=== PATIENT | female | born 1955 | race Caucasian/White ===

== ENCOUNTER 2023-01-03 07:58 | Outpatient (OUT) | payer MEDICARE, SELFPAY ==
--- NOTE | 2023-01-03 08:11 | CA_ITS ---
Patient: IDRIS GRIFFIN Exam Date: 01/03/2023 : 1955 Gender:F Ordering : [facility] Admission #: [id number] Family : Order #: [id number] CLICK HERE TO VIEW EXAM ECHOCARDIOGRAM REPORT INDICATIONS: Localized edema COMPARISON: None. DESCRIPTION: COMPLETE ECHOCARDIOGRAM Real-time transthoracic echocardiography with 2D, M-mode, spectral and color flow Doppler performed. QUALITY: Technical quality was good. LEFT VENTRICLE: Normal chamber size. Moderate concentric left ventricular hypertrophy. LV EF: Global left ventricular systolic function is normal. Visual estimation of left ventricular ejection fraction is 60-65% DIASTOLIC: Normal diastolic function. ATRIAL SEPTUM: Inadequately seen. LEFT ATRIUM: Normal chamber size. RIGHT ATRIUM: Normal chamber size. RIGHT VENTRICLE: Normal chamber size. Normal right ventricular systolic function. TRICUSPID VALVE: Normal mobility and thickness. No stenosis with trivial regurgitation. No evidence of pulmonary hypertension. RVSP 21mmHg MITRAL VALVE: Normal mobility and thickness. No evidence of mitral valve stenosis. There is no mitral annular calcification. No mitral regurgitation. AORTIC VALVE: Normal trileaflet appearance. No visible sclerosis. Normal leaflet mobility. No evidence of aortic valve stenosis. No aortic regurgitation. AORTIC ROOT: Normal diameter and appearance. PULMONIC VALVE: Normal thickness and mobility. No stenosis. No regurgitation. PERICARDIUM: Anterior free space; trivial effusion versus fat pad. IVC: Collapses with inspirations. Normal size. CONCLUSION: Global left ventricular systolic function is normal; visually estimated ejection fraction of 60 to 65%. Moderately increased left ventricular wall thickness. Normal diastolic function. The right ventricle is normal in size and systolic function. No significant valvular abnormalities. Anterior free space; trivial effusion versus fat pad. Adult Echocardiography Procedure Report Left Ventricle LVEDD (3.7 - 5.6 cm): 4.53 cm LVESD (2.2 - 4.0 cm): 3.11 cm LVIVS thickness (0.6 - 1.2 cm): 1.12 cm LVPW thickness (0.5 - 1.0 cm): 1.39 cm e': 0.08 m/s E - e': 11.57 LVOT Max Gradient: 3.81 mm[Hg] LVOT Area (cm2): 0.98 m/s Peak Velocity (LVOT): 0.98 m/s Mean Velocity (LVOT): 0.67 m/s LVOT Diameter 2.26 cm Left Ventricular Ejection Fraction: 72.51 % Left Atrium LA Volume Index (2D A2C): 35.67 ml/m2 Left Atrium Systolic Dimension: 3.87 cm Mitral Valve MV E to A Ratio: 0.90 Mitral Valve A-Wave Peak Velocity: 1.00 m/s Mitral Valve E-Wave Peak Velocity: 0.90 m/s Right Ventricle RV Internal Diastolic Dimension: 3.39 cm Aorta AO Root Diam: 3.27 cm Ascending Ao Diam: 3.14 cm Aortic Valve AoV Area ([place]): 2.49 cm2, 2.49 cm2 AoV Area (VTI): 2.61 cm2, 2.61 cm2 Peak Velocity(Antegrade Flow): 1.58 m/s Peak Gradient(Antegrade Flow): 9.95 mm[Hg] Mean Velocity(Antegrade Flow): 1.13 m/s Mean Gradient(Antegrade Flow): 5.66 mm[Hg] Velocity Time Integral: 40.51 cm Tricuspid Valve Peak Velocity (Regurgitant Flow): 1.69 m/s, 1.55 m/s, 2.10 m/s Pulmonic Valve Mean Gradient: 1.78 mm[Hg] Mean Velocity: 0.63 m/s Peak Velocity: 0.84 m/s, 1.07 m/s Peak Gradient: 2.80 mm[Hg], 4.55 mm[Hg] Right Atrium Right Atrium Systolic Pressure: 37.39 ml, 37.39 ml Dictated by: Ponce Silvestre M.D. on 01/04/2023 at 12:11 Approved by: Ponce Silvestre M.D. on 01/04/2023 at 12:13
== END 2023-01-03 07:59 ==
PROVIDERS: PCP Nurse Practitioner Family; Visit Provider Nurse Practitioner Family
DX: R60.0 Localized edema (principal); I51.7 Cardiomegaly
CPT/HCPCS: 93306

== ENCOUNTER 2023-02-05 15:21 | Outpatient (OUT) | payer MEDICARE, SELFPAY ==
[2023-02-05 15:47] LABS: Alanine Aminotransferase 20 U/L (14-59); Albumin Level 3.5 g/dL (3.4-5.0); Alkaline Phosphatase 104 U/L (46-116); Aspartate Amino Transferase 17 U/L (15-37); BUN Creatinine Ratio 10.6; Bilirubin Total 0.5 mg/dL (0.2-1.0); Calcium 9.2 mg/dL (8.5-10.1); Carbon Dioxide 29.2 mmol/L (21.0-32.0); Chloride 106 mmol/L (98-107); Estimated GFR (African America 45 (>=60); Estimated GFR (Non-African Ame 37 (>=60); Globulin 3.6 g/dL; Glucose 74 mg/dL (74-106); Potassium 4.2 mmol/L (3.5-5.1); Sodium 143 mmol/L (136-145); Total Protein 7.1 g/dL (6.4-8.2)
== END 2023-02-05 15:22 | disposition home or self-care (01) ==
LOC: LAB 15:22
PROVIDERS: PCP Nurse Practitioner Family; Visit Provider Nurse Practitioner Family
DX: R60.0 Localized edema (principal)
CPT/HCPCS: 36415; 80053

== ENCOUNTER 2023-03-01 10:39 | Outpatient (OUT) | payer MEDICARE, SELFPAY ==
[2023-03-01 11:10] LABS: Creatinine Urine Random 62.55 mg/dL (20.00-300.00); Microalbum Creatinine Ratio Ur 20.7 mg/g (0.0-29.9); Microalbumin Urine Random <1.3 mg/dL (<=30.0)
== END 2023-03-01 10:40 | disposition home or self-care (01) ==
LOC: LAB 10:40
PROVIDERS: PCP Nurse Practitioner Family; Visit Provider Nurse Practitioner Family
DX: E11.49 Type 2 diabetes mellitus with other diabetic neurological complication (principal)
CPT/HCPCS: 82043; 82570

== ENCOUNTER 2023-03-01 10:47 | Outpatient (OUT) | payer MEDICARE, SELFPAY ==
--- NOTE | 2023-03-01 10:50 | MM_ITS ---
Patient: IDRIS GRIFFIN Exam Date: 03/01/2023 : 1955 Gender:F Ordering : [facility] Admission #: [id number] Family : Order #: [id number] CLICK HERE TO VIEW EXAM RADIOLOGY REPORT PROCEDURE: MM TOMOSYNTHESIS SCREENING BI COMPARISON: MG MAMM SCREEN 3D RIMA CAD, 02/09/2021. MG MAMM SCREEN 3D RIMA CAD, 02/14/2022. INDICATIONS: Screening Calculator Name NCI Breast Cancer Risk Assessment Tool 5 Year Breast Cancer Risk 0.80% Lifetime Breast Cancer Risk 2.80% Personal Breast Cancer No Personal Ovarian Cancer No Treatments None Family Cancers Aunt-paternal with leukemia cancer at age 65; Aunt-paternal with unknown x 6 aunts cancer at age ~40; Grandmother-maternal with unknown cancer at age 25. LOCATION: [facility] BREAST COMPOSITION: Heterogeneously dense,which may obscure small masses. FINDINGS: DIAGNOSTIC CATEGORY 1--NEGATIVE. NO CHANGE FROM COMPARISON ASSESSMENT. Scattered benign-appearing calcifications are present. RIGHT BREAST: No significant suspicious finding. LEFT BREAST: No significant suspicious finding. RECOMMENDATIONS: ROUTINE MAMMOGRAM AND CLINICAL EVALUATION IN 12 MONTHS. PLEASE NOTE: A NORMAL MAMMOGRAM DOES NOT EXCLUDE THE POSSIBILITY OF BREAST CANCER. A CLINICALLY SUSPICIOUS PALPABLE LUMP SHOULD BE BIOPSIED. Dictated by: Carlos Hernandez MD on 03/01/2023 at 12:41 Approved by: Carlos Hernandez MD on 03/01/2023 at 12:50
== END 2023-03-01 10:48 | disposition home or self-care (01) ==
LOC: MAMMO 10:47
PROVIDERS: PCP Nurse Practitioner Family; Visit Provider Nurse Practitioner Family
DX: Z12.31 Encounter for screening mammogram for malignant neoplasm of breast (principal); Z80.6 Family history of leukemia; Z80.9 Family history of malignant neoplasm, unspecified
CPT/HCPCS: 77063; 77067

== ENCOUNTER 2023-03-27 09:42 | Outpatient (OUT) | payer MEDICARE, SELFPAY ==
[2023-03-27 11:17] LABS: Estimated Average Glucose 194 mg/dL; Glycohemoglobin A1C 8.4 % (4.5-6.2)
== END 2023-03-27 09:43 | disposition home or self-care (01) ==
LOC: LAB 09:42
PROVIDERS: PCP Nurse Practitioner Family; Visit Provider Nurse Practitioner Family
DX: E11.49 Type 2 diabetes mellitus with other diabetic neurological complication (principal)
CPT/HCPCS: 36415; 83036

== ENCOUNTER 2023-08-08 09:31 | Outpatient (OUT) | payer MEDICARE, SELFPAY ==
[2023-08-08 10:44] LABS: Estimated Average Glucose 197 mg/dL; Glycohemoglobin A1C 8.5 % (4.5-6.2)
== END 2023-08-08 09:32 | disposition home or self-care (01) ==
LOC: LAB 09:32
PROVIDERS: PCP Nurse Practitioner Family; Visit Provider Nurse Practitioner Family
DX: E11.49 Type 2 diabetes mellitus with other diabetic neurological complication (principal)
CPT/HCPCS: 36415; 83036

== ENCOUNTER 2024-01-24 18:40 | Emergency (ER) | payer MEDICARE, SELFPAY ==
[2024-01-24 18:44] VITALS: BP 137/78; PULSE 73; TEMP 36.4; O2SAT 97; BMI 39.1
--- OUTSIDE RECORDS SUMMARY | 2024-01-24 19:08 | XMS_ITS | CCD ---
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 TRIGGER RELEASE Modifiers Left Left Surgeon Description LEFT CARPAL TUNNEL LEFT CARPAL TUNNEL RELEASE, LEFT THUMB AND RELEASE, LEFT THUMB AND RING TRIGGER FINGER RING TRIGGER FINGER RELEASE RELEASE Primary Procedure Yes No Primary Surgeon Brice Oliva DO, DO, Jason A Start 06/07/23 07:46:00 06/07/23 07:46:00 Stop 06/07/23 08:16:00 06/07/23 08:16:00 Anesthesia Type Local Local Surgical Service Orthopedics Orthopedics Wound Class 1 - Clean 1 - Clean Last Modified By: Merry Perez RN, RN, Kimberly Y 06/07/23 08:19:59 06/07/23 08:19:59 General Case Data FT Pre-Care Text: Classifies surgical wound, implements aseptic technique, initiates traffic control Entry 1 Case Information OR OR 5 FT Case Level Level 1 Wound Class 1 - Clean Specialty Orthopedics Preop Diagnosis LEFT CARPAL TUNNEL Postop Same As Preop Yes SYNDROME, LEFT THUMB AND RING TRIGGER FINGER Postop Diagnosis LEFT CARPAL TUNNEL Outcomes Met? Yes SYNDROME, LEFT THUMB AND RING TRIGGER FINGER Last Modified By: Adwoa Jacobson CST 06/10/23 12:04:30 Post-Care Text: The patient is free from signs and symptoms of infection Skin Assessment (Pre Procedure) FT Pre-Care Text: Implements protective measures to prevent skin/ tissue injury due to thermal or mechanical sources Evaluates for signs and symptoms of physical injury to skin and tissue Entry 1 Skin Integrity Intact, [place], Warm, and Skin Abnormality No Dry Outcomes Met? Yes Last Modified By: Merry Perez RN 06/07/23 07:50:04 Post-Care Text: The patient is free from signs and symptoms of injury caused by extraneous objects Patient Positioning FT Pre-Care Text: Identifies physical alterations that require additional precautions for procedure-specific positioning, verifies presence of prosthetics or corrective devices, positions the patient, evaluates the patient for signs and symptoms of injury as a result of positioning Entry 1 Procedure CARPAL TUNNEL Body Position Supine RELEASE(Left), FINGER TRIGGER RELEASE(Left) Feet Uncro (more content not included)... [facility] Preoperative Documentson Preoperative Documents [id number] #1.00TIFF [facility] Consent for Procedure/Surger yon 06-07-2023 Consent for Procedure/Surgery [id number]# 1.00TIFF [facility] Consent for Treatmenton 05-29 Consent for Treatment [id number]#1 .00TIFF [facility] Discharge Instructionson Discharge Instructions VIRGEN GONZALES :1955 Visit Date:06/07/2023 Inpatient Discharge Instructions Your Care Team Admitting Physician - Brice Oliva DO Referring Physician - Brice Oliva DO Reason for Your Visit LEFT CARPAL TUNNEL SYNDROME, LEFT THUMB AND RING TRIGGER FINGER This Is Your Medications List alendronate (alendronate 70 mg oral tablet) ascorbic acid (Vitamin C 500 mg oral tablet, chewable) aspirin busPIRone chlorpheniramine/ibup rofen/pseudoephedrine (Advil Allergy Sinus oral tablet) empagliflozin (Jardiance 25 mg oral tablet) esomeprazole (Nexium 20 mg Cap-DR) fluoxetine (FLUoxetine 10 mg Cap) fluticasone (Flovent HFA 110 Aerosol) furosemide insulin isophane (Relion Novolin N) lisinopril (lisinopril 10 mg Tab) naproxen (naproxen 500 mg Tab) naproxen (naproxen 500 mg Tab) nitroglycerin (nitroglycerin 0.4 mg sublingual Tab) pregabalin simvastatin (simvastatin 40 mg Tab) sitagliptin (Januvia 100 mg Tab) tramadol (traMADOL 50 mg Tab) varenicline (Chantix 1 mg Tab) [Image Removed: STOP]Stop taking these medications HYDROmorphone (Dilaudid 2 mg Tab) ibuprofen (Advil 200 mg oral tablet) Procedure History Arthroscopy of knee (09/30/2020), Right little finger release A-1 linda (05/09/2016), Cholecystectomy, History of tonsillectomy, hysterectomy, needle removed right foot, Operation on toenail, Release of trigger finger, right carpel tunnel, right knee arthroscopy x2. What to do next Instructions From Your Doctor Event Name Event Result Pharmacy Information [facility] , [place] Discharge Instructions Discharge Instructions New Follow Up Appointments after Discharge Follow Up with Brice Oliva DO, ORT When: Comments: , 2 pm Appointment has already been scheduled Where: [place] [address]- Medications What How Much When Instructions Next Dose New ascorbic acid (Vitamin C 500 mg oral tablet, chewable) 1 Tablets Chewed Every day Duration: 50 Days Pickup at [facility] #[id number] New tramadol (traMADOL 50 mg Tab) 1 Tablets By Mouth Every 4 hours as needed for for pain g56.02 Pickup at [facility] #[id number] Changed naproxen (naproxen 500 mg Tab) 1 Tablets By Mouth 2 times a day as needed for Pain with food Pickup at [facility] #[id number] Changed naproxen (naproxen 500 mg Tab) 1 Tablets By Mouth 2 times a day with food Unchanged alendronate (alendronate 70 mg oral tablet) 1 Tablets By Mouth Every week Unchanged aspirin 81 Milligram By Mouth Every day Unchanged busPIRone 75 Milligram By Mouth 2 times a day Unchanged chlorpheniramine/ ibuprofen/ pseudoephedrine (Advil Allergy Sinus oral tablet) 1 Tablets By Mouth Every 6 hours as needed for as needed for cold symptoms Unchanged empagliflozin (Jardiance 25 mg oral tablet) 1 Tablets By Mouth Once a day (in the morning) Unchanged esomeprazole (Nexium 20 mg Cap-DR) 1 Capsules By Mouth Every day Unchanged fluoxetine (FLUoxetine 10 mg Cap) 1 Capsules By Mouth Every day Unchanged fluticasone (Flovent HFA 110 Aerosol) 2 Puffs Inhalation 2 times a day as needed for Shortness of breath or wheezing Unchanged furosemide 20 Milligram By Mouth Every day Unchanged insulin isophane (Relion Novolin N) 16 Units Subcutaneous 2 times a day Unchanged lisinopril (lisinopril 10 mg Tab) 1 Tablets By Mouth Every day Unchanged nitroglycerin (nitroglycerin 0.4 mg sublingual Tab) 1 Tablets Sublingual Every 5 minutes as needed for for chest pain Unchanged pregabalin 75 Milligram By Mouth 2 times a day Unchanged simvastatin (simvastatin 40 mg Tab) 1 Tablets By Mouth Once a day (at bedtime) Unchanged sitagliptin (Januvia 100 mg Tab) 1 Tablets By Mouth Every day Unchanged varenicline (Chantix 1 mg Tab) 1 Tablets By Mouth 2 times a day Pharmacy Information [facility] #[id number]: [address] [place], [place] [id number] [phone] What How Much When Comments Stop Taking HYDROmorphone (Dilaudid 2 mg Tab) See instructions 0.5-1 tab(s) Oral q4hr Stop Taking ibuprofen (Advil 200 mg oral tablet) 1 Tablets By Mouth Every 6 hours as needed for as needed for arthritis Allergies Percocet (sleeps a long time) Vicodin (itching , sick to stomach) Darvocet-N 100 (Itching) Darvon (Itching) codeine (Nausea) penicillins (Difficulty breathing at rest, Hives) Problems Ongoing - Any problem that you are currently receiving treatment for. BMI 31.0-31.9,adult Chronic back pain Diabetes mellitus, type 2 Hyperlipidemia Lipoma of back Smoker Historical - Any problem that you are no longer receiving treatment for. Breast lump Cigarette smoker Fatigue Insomnia Lipoma of back [place] - myocardial infarction Osteoporosis Pharyngitis Education Materials [place], [place] [facility] CARPAL TUNNEL RELEASE INSTRUCTIONS Post-Operative Week One Please do (more content not included)... [facility] Comment on above: Result Comment: Elec tronically Signed By: Lilo YANG, Gila Pedroza\gilmar\Date and Time Signed: 06/07/23 08:35 EST Discharge Instructions VIRGEN GONZALES :1955 Visit Date:06/07/2023 Inpatient Discharge Instructions Your Care Team Admitting Physician - Brice Oliva DO Referring Physician - Brice Oliva DO Reason for Your Visit LEFT CARPAL TUNNEL SYNDROME, LEFT THUMB AND RING TRIGGER FINGER This Is Your Medications List alendronate (alendronate 70 mg oral tablet) ascorbic acid (Vitamin C 500 mg oral tablet, chewable) aspirin busPIRone chlorpheniramine/ibup rofen/pseudoephedrine (Advil Allergy Sinus oral tablet) empagliflozin (Jardiance 25 mg oral tablet) esomeprazole (Nexium 20 mg Cap-DR) fluoxetine (FLUoxetine 10 mg Cap) fluticasone (Flovent HFA 110 Aerosol) furosemide insulin isophane (Relion Novolin N) lisinopril (lisinopril 10 mg Tab) naproxen (naproxen 500 mg Tab) naproxen (naproxen 500 mg Tab) nitroglycerin (nitroglycerin 0.4 mg sublingual Tab) pregabalin simvastatin (simvastatin 40 mg Tab) sitagliptin (Januvia 100 mg Tab) tramadol (traMADOL 50 mg Tab) varenicline (Chantix 1 mg Tab) [Image Removed: STOP]Stop taking these medications HYDROmorphone (Dilaudid 2 mg Tab) ibuprofen (Advil 200 mg oral tablet) Procedure History Arthroscopy of knee (09/30/2020), Right little finger release A-1 linda (05/09/2016), Cholecystectomy, History of tonsillectomy, hysterectomy, needle removed right foot, Operation on toenail, Release of trigger finger, right carpel tunnel, right knee arthroscopy x2. Discharge Vitals Temperature (Axillary) 36.6 ?C Heart Rate (Monitored) 77 Respiratory Rate 20 Blood Pressure 102/64 Height 152.4 cm Weight 85.7 kg What to do next Instructions From Your Doctor Event Name Event Result Pharmacy Information [facility] , Eliezer Salazar New Follow Up Appointments after Discharge Follow Up with Brice Oliva DO, ORT When: Comments: , 2 pm Appointment has already been scheduled Where: [place] [address]- Medications What How Much When Instructions Next Dose New ascorbic acid (Vitamin C 500 mg oral tablet, chewable) 1 Tablets Chewed Every day Duration: 50 Days Pickup at [facility] #[id number] New tramadol (traMADOL 50 mg Tab) 1 Tablets By Mouth Every 4 hours as needed for for pain g56.02 Pickup at [facility] #[id number] Changed naproxen (naproxen 500 mg Tab) 1 Tablets By Mouth 2 times a day with food Changed naproxen (naproxen 500 mg Tab) 1 Tablets By Mouth 2 times a day as needed for Pain with food Pickup at [facility] #[id number] Unchanged alendronate (alendronate 70 mg oral tablet) 1 Tablets By Mouth Every week Unchanged aspirin 81 Milligram By Mouth Every day Unchanged busPIRone 75 Milligram By Mouth 2 times a day Unchanged chlorpheniramine/ ibuprofen/ pseudoephedrine (Advil Allergy Sinus oral tablet) 1 Tablets By Mouth Every 6 hours as needed for as needed for cold symptoms Unchanged empagliflozin (Jardiance 25 mg oral tablet) 1 Tablets By Mouth Once a day (in the morning) Unchanged esomeprazole (Nexium 20 mg Cap-DR) 1 Capsules By Mouth Every day Unchanged fluoxetine (FLUoxetine 10 mg Cap) 1 Capsules By Mouth Every day Unchanged fluticasone (Flovent HFA 110 Aerosol) 2 Puffs Inhalation 2 times a day as needed for Shortness of breath or wheezing Unchanged furosemide 20 Milligram By Mouth Every day Unchanged insulin isophane (Relion Novolin N) 16 Units Subcutaneous 2 times a day Unchanged lisinopril (lisinopril 10 mg Tab) 1 Tablets By Mouth Every day Unchanged nitroglycerin (nitroglycerin 0.4 mg sublingual Tab) 1 Tablets Sublingual Every 5 minutes as needed for for chest pain Unchanged pregabalin 75 Milligram By Mouth 2 times a day Unchanged simvastatin (simvastatin 40 mg Tab) 1 Tablets By Mouth Once a day (at bedtime) Unchanged sitagliptin (Januvia 100 mg Tab) 1 Tablets By Mouth Every day Unchanged varenicline (Chantix 1 mg Tab) 1 Tablets By Mouth 2 times a day Pharmacy Information [facility] #[id number]: [address] [place], [place] [id number] [phone] What How Much When Comments Stop Taking HYDROmorphone (Dilaudid 2 mg Tab) See instructions 0.5-1 tab(s) Oral q4hr Stop Taking ibuprofen (Advil 200 mg oral tablet) 1 Tablets By Mouth Every 6 hours as needed for as needed for arthritis Test Results No qualifying data available. Allergies Percocet (sleeps a long time) Vicodin (itching , sick to stomach) Darvocet-N 100 (Itching) Darvon (Itching) codeine (Nausea) penicillins (Difficulty breathing at rest, Hives) Problems Ongoing - Any problem that you are currently receiving treatment for. BMI 31.0-31.9,adult Chronic back pain Diabetes mellitus, type 2 Hyperlipidemia Lipoma of back Smoker Historical - Any problem that you are no longer receiving treatment for. Breast lump Cigarette smoker Fatigue Insomnia Lipoma of back [place] - myocardial infarction Osteoporosis Pharyngitis (more content not included)... [facility] Comment on above: Result Comment: Elec tronically Signed By: Marisela DIAZ, Mercy\.br\Date and Time Signed: 06/07/23 08:32 EST H&P Updateon 06-07-2023 H&P Update [id number]# 1.00TIFF [facility] Inpatient Patient Summaryon 06-07-2023 Inpatient Patient Summary [place] [id number] [facility] Clinical Discharge Instructions PERSON INFORMATION Name: VIRGEN GONZALES [facility]#:[id number] PHYSICIANS Admitting Physician: Brice Oliva DO Attending Physician: Brice Oliva DO PCP: AGGIE DAVIS CNP Discharge Diagnosis: Comment: PATIENT EDUCATION INFORMATION Instructions: Conchita Oliva - Carpal Tunnel/Cubital Tunnel Release Instructions (Custom) Medication Leaflets: Follow up: MEDICATION LIST New Medications [facility] #[id number], [address] [place] [id number], [phone] ascorbic acid (Vitamin C 500 mg oral tablet, chewable) 1 Tablets Chewed every day for 50 Days. Refills: 0. tramadol (traMADOL 50 mg Tab) 1 Tablets By Mouth every 4 hours as needed for pain. g56.02. Refills: 0. Medications to Continue Taking That Have Changed [facility] #[id number], [address] [place] [id number], [phone] START: naproxen (naproxen 500 mg Tab) 1 Tablets By Mouth 2 times a day as needed Pain. with food. Refills: 0. Other Medications START: naproxen (naproxen 500 mg Tab) 1 Tablets By Mouth 2 times a day. with food. Refills: 0. Medications to Continue with No Changes Other Medications alendronate (alendronate 70 mg oral tablet) 1 Tablets By Mouth every week., bones aspirin 81 Milligram By Mouth every day., heart busPIRone 75 Milligram By Mouth 2 times a day. chlorpheniramine/ibup rofen/pseudoephedrine (Advil Allergy Sinus oral tablet) 1 Tablets By Mouth every 6 hours as needed as needed for cold symptoms. empagliflozin (Jardiance 25 mg oral tablet) 1 Tablets By Mouth once a day (in the morning). esomeprazole (Nexium 20 mg Cap-DR) 1 Capsules By Mouth every day. fluoxetine (FLUoxetine 10 mg Cap) 1 Capsules By Mouth every day. fluticasone (Flovent HFA 110 Aerosol) 2 Puffs Inhalation 2 times a day as needed Shortness of breath or wheezing. furosemide 20 Milligram By Mouth every day. insulin isophane (Relion Novolin N) 16 Units Subcutaneous 2 times a day. lisinopril (lisinopril 10 mg Tab) 1 Tablets By Mouth every day. nitroglycerin (nitroglycerin 0.4 mg sublingual Tab) 1 Tablets Sublingual every 5 minutes as needed for chest pain. pregabalin 75 Milligram By Mouth 2 times a day. simvastatin (simvastatin 40 mg Tab) 1 Tablets By Mouth once a day (at bedtime). sitagliptin (Januvia 100 mg Tab) 1 Tablets By Mouth every day. varenicline (Chantix 1 mg Tab) 1 Tablets By Mouth 2 times a day., stop smoking No Longer Take the Following Medications HYDROmorphone (Dilaudid 2 mg Tab) 0.5-1 tab(s) Oral q4hr; as needed for pain. Refills: 0. ibuprofen (Advil 200 mg oral tablet) 1 Tablets By Mouth every 6 hours as needed as needed for arthritis. Comment: [facility] Main OR PACU II [facility] Main OR PACU II Record PACU Phase II Document Type FT Summary Primary Physician: Brice Oliva DO Finalized Date/Time: 06/07/23 09:45:08 Pt. Name: VIRGEN GONZALES Ramiro Shabazz./Sex: 1955 Female Med Rec #: [id number] Physician: Brice Oliva DO Financial #: [id number] Pt. Type: A Room/Bed: [place] [address] Admit/Disch: 06/07/23 06:35:30 - Institution: Case Times PACU II FT Pre-Care Text: Identifies barriers to communication and implements measures to provide psychological support and determines knowledge level Develops individualized plan of care, and ensures continuity of care Maintains patient's dignity and privacy, and maintains patient confidentiality Identifies and reports philosophical, cultural, and spiritual beliefs and values Identifies individual values and wishes concerning care administers prescribed antibiotic therapy and immunizing agents as ordered, Evaluates postoperative tissue perfusion Implements thermoregulation measures, and monitors body temperature Evaluates postoperative respiratory status Evaluates postoperative cardiac status Evaluates postoperative neurological status Assesses pain control, collaborated in initiating patient-controlled analgesia and implements alternative methods of pain control Verifies allergies, administers prescribed medications and solutions, evaluates response to medications Entry 1 In PACU II 06/07/23 08:20:00 Discharge from PACU 06/07/23 08:45:00 II Outcomes Met? Yes Last Modified By: Mercy Antonio LPN 06/07/23 09:45:05 Post-Care Text: The patient demonstrates knowledge of the expected response to the operative or invasive procedure The patient's care is consistent with the individualized perioperative plan of care The patient's right to privacy is maintained The patient's value system, lifestyle, ethnicity, and culture are considered, respected, and incorporated into the perioperative plan of care The patient participates in decisions affecting his or her perioperative plan of care. The patient is free from signs and symptoms of infection The patient has wound/tissue perfusion consistent with or improved from baseline levels established preoperatively The patient is at or returning to normothermia at the conclusion of the immediate postoperative period The patient's respiratory function is consistent with or improved from baseline levels established preoperatively The patient's cardiovascular status is consistent with or improved from baseline levels established preoperatively The patient's neurological status is consistent with or improved from baseline levels established preoperatively The patient demonstrates and/or reports adequate pain control throughout the perioperative period The patient received appropriate medication(s), safely administered during the perioperative period Finalized By: Mercy Antonio LPN Document Signatures Signed By: Mercy Antonio LPN 06/07/23 09:45 [facility] Main OR Preoperative Recordo n 06-07-2023 Main OR Preoperative Record PreOp Document Type FT Summary Primary Physician: Brice Oliva DO Finalized Date/Time: 06/07/23 07:47:43 Pt. Name: VIRGEN GONZALES D.O.B./Sex: 1955 Female Med Rec #: [id number] Physician: Brice Oliva DO Financial #: [id number] Pt. Type: A Room/Bed: [place] [address] Admit/Disch: 06/07/23 06:35:30 - Institution: Case Times PreOp FT Pre-Care Text: Verifies consent for planned procedure, identifies individual values and wishes concerning care, includes family members in perioperative teaching Entry 1 Patient Times. In Pre Surgery 06/07/23 06:40:00 Out Pre Surgery 06/07/23 07:26:00 Outcomes Met? Yes Last Modified By: Merry Perez RN 06/07/23 07:47:38 Post-Care Text: The patient participates in decisions affecting his or her perioperative plan of care Finalized By: Merry Perez RN Document Signatures Signed By: Merry Perez RN 06/07/23 07:47 [facility] Main OR Preoperative Record Holding Area Document Type FT Summary Primary Physician: Brice Oliva DO Finalized Date/Time: 06/07/23 07:35:11 Pt. Name: VIRGEN GONZALESO.B./Sex: 1955 Female Med Rec #: [id number] Physician: Brice Oliva DO Financial #: [id number] Pt. Type: A Room/Bed: [facility] Admit/Disch: 06/07/23 06:35:30 - Institution: Case Times Holding FT Pre-Care Text: Verifies consent for planned procedure, identifies individual values and wishes concerning care, includes family members in perioperative teaching Secures patient's records' belongings, and valuables, maintains patient's dignity and privacy, and maintains patient confidentiality Entry 1 In Holding 06/07/23 06:40:00 Outcomes Met? Yes Last Modified By: Mercy Antonio LPN 06/07/23 07:02:06 Post-Care Text: The patient participates in decisions affecting his or her perioperative plan of care The patient's right to privacy is maintained Surgery Checklist FT Entry 1 Entry 2 Patient Birthday, ID Band Birthday, ID Band Identification: Check, Patient Check, Patient Participation Participation Procedure Surgical Consent, With Surgical Consent, With Verification: Patient Patient NPO after Midnight: No No Date/Time: 06/07/23 07:02:00 06/07/23 07:02:00 Preop Results Reviewed: Results Reviewed Comments: Personal Items: Dentures, Glasses Dentures, Glasses Personal Items glasses, upper dentures glasses, upper dentures Comment: Limitations: COPD COPD Complaints of Pain: Yes Yes Pain Comment: left hand left hand Operative Site Yes Marking: Marked By: Dr. Alvarez Location: left wrist, left thumb, left ring finger Availability Verified: IV Conscious Sedation or Non-ASU MAC Patients Does Patient Smoke Yes Yes If Yes to Smoking. half pack a day half pack a day Cigars or Cigarettes. How much per day? Patient states Yes Yes postop adult supervision available Comment - Adult brother Maxwell brother Maxwell Supervision Case Cancelled in No No Holding Area see comments below for reason Case Cancelled Comment Last Modified By: Mercy Antonio LPN, LPN, Sandra 06/07/23 07:05:36 06/07/23 07:14:09 Finalized By: Mercy Antonio LPN Document Signatures Signed By: Mercy Antonio LPN 06/07/23 07:05 Mercy Antonio LPN 06/07/23 07:35 [facility] Operative Reporton Operative Report Patient: VIRGEN GONZALES Age: 67 years Sex: Female : 1955 Associated Diagnoses: None Author: Brice Oliva DO DATE OF SURGERY: 06/07/2023 SURGEON: Brice Oliva D.O. PREOPERATIVE DIAGNOSIS: 1. Left carpal tunnel syndrome 2. Trigger digits left thumb and left ring finger POSTOPERATIVE DIAGNOSIS: 1. Left carpal tunnel syndrome 2. Trigger digits left thumb and left ring finger PROCEDURE: 1. Left carpal tunnel release 2. A1 linda release left thumb and left ring finger (trigger digit release) ANESTHESIA: Local OPERATIVE INDICATIONS: Virgen is a 67-year-old [id number] female who has had persistent pain, numbness and tingling in the left hand. She has limited range of motion of the thumb, index, middle, and ring fingers. She was previously experiencing locking to these digits but now is unable to flex the fingers enough to cause triggering. We decided to perform a left carpal tunnel release and address only 2 of her fingers at this setting. We plan on returning at a later date to address the index and middle fingers. She agreed to proceed with the above procedure after a discussion of the risks, benefits, complications, alternatives, and expectations. Please see office notes for further details. PROCEDURE IN DETAIL: The correct operative sites were identified and marked in the preoperative holding area. The skin overlying the carpal tunnel and A1 pulleys of the thumb and ring fingers was prepped with alcohol and Betadine. The skin was anesthetized with ethyl chloride. The soft tissues over the carpal tunnel were injected with 10 mL of 1% lidocaine with epinephrine with a 25-gauge 1.5 inch needle. The soft tissues overlying the A1 pulleys of the thumb and ring fingers were injected with 6 mL of 1% lidocaine with epinephrine each. The patient was transported to the operating room and placed supine on the operating room table. The left upper extremity was outstretched on the armboard. The left upper extremity was prepped and draped in the usual sterile fashion. Surgical timeout was performed with all required personnel present. The adequacy of the local anesthetic was assessed with forceps. Attention was turned to the left carpal tunnel. A small longitudinal incision at the base of the palm between the thenar and hypothenar eminences was made. Dissection was carried down through the subcutaneous tissues. Hemostasis was achieved with the bipolar. The palmar fascia was identified and incised to reveal the transverse carpal ligament. The transverse carpal ligament was released at its midportion with a fresh 15 blade. Release of the ligament was carried distally until fat was visible adjacent to the nerve. Release of the ligament was then carried proximally. The safeguard device was slid between the transverse carpal ligament and the median nerve. A curved meniscal Levelland blade was slid on top of the safeguard device to complete the proximal release. Complete release was confirmed with visual inspection and digital palpation. There were no space-occupying lesions. Attention was then turned to the thumb. A transverse incision at the flexion crease of the MCP joint was made. Retractors were placed to protect the digital nerves. The A1 linda was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 Cholesterol.total/Cho lesterol in HDL [Mass ratio] 3.1 {ratio} Normal [facility] Comment on above: Performed By: #### T SH, CMP, T7, LIPID #### [facility] [place] [facility] [address] [address] [address] Danay De Los Santos HDL NORMAL > or = 60 mg/dl - LO W CARDIOVASCULAR RISK <40 mg/dl - HIGH CARDIOVASCULAR RISK Normal [facility] Comment on above: Performed By: #### T SH, CMP, T7, LIPID #### [facility] [place] [facility] [address] [address] [address] Danay De Los Santos LDL CALC NORMAL SEE BELOW Normal [facility] Comment on above: Result Comment: <100 mg/dl OPTIMAL 100 - 129 mg/dl NEAR OR ABOVE OPTIMAL 130 - 159 mg/dl BORDERLINE HIGH 160 - 189 mg/dl HIGH >190 mg/dl VERY HIGH Performed By: #### T SH, CMP, T7, LIPID #### [facility] [place] [facility] [address] [address] [address] Danay De Los Santos Triglyceride [Mass/Vol] 63 mg/dL Normal <=150 [facility] [place] [facility] Comment on above: Performed By: #### T SH, CMP, T7, LIPID #### [facility] [place] [facility] [address] [address] [address] Danay De Los Santos VLDL CALC 12.6 mg/dL Normal [facility] Comment on above: Performed By: #### T SH, CMP, T7, LIPID #### [facility] [place] [facility] [address] [address] [address] Danay De Los Santos PROF 14(COMP METB)on 023 Albumin [Mass/Vol] 3.3 g/dL Critically low 3.4-5.0 [facility] [place] Comment on above: Performed By: #### T SH, CMP, T7, LIPID #### [facility] [place] [facility] [address] [address] [address] Danay De Los Santos Albumin/Globulin [Mass ratio] 1.0 {ratio} Normal [facility] Comment on above: Performed By: #### T SH, CMP, T7, LIPID #### [facility] [place] [facility] [address] [place] [address] Dr. Danay De Los Santos ALP [Catalytic activity/Vol] 94 U/L Normal 46-116 [facility] Comment on above: Performed By: #### T SH, CMP, T7, LIPID #### [facility] [place] [facility] [address] [address] [address] Danay De Los Santos ALT [Catalytic activity/Vol] 17 U/L Normal 14-59 [facility] Comment on above: Performed By: #### T SH, CMP, T7, LIPID #### [facility] [place] [facility] [address] [address] [address] Danay De Los Santos Anion gap [Moles/Vol] 14.3 mmol/L Normal [facility] [place] Comment on above: Performed By: #### T SH, CMP, T7, LIPID #### [facility] [place] [facility] [address] [address] [address] Danay De Los Santos AST [Catalytic activity/Vol] 11 U/L Critically low 15-37 [facility] Comment on above: Performed By: #### T SH, CMP, T7, LIPID #### [facility] [place] [facility] [address] [address] [address] Danay De Los Santos Bilirubin [Mass/Vol] 0.3 mg/dL Normal 0.2-1.0 [facility] Comment on above: Performed By: #### T SH, CMP, T7, LIPID #### [facility] [place] [facility] [address] [address] [address] Danay De Los Santos Calcium [Mass/Vol] 9.1 mg/dL Normal 8.5-10.1 [facility] Comment on above: Performed By: #### T SH, CMP, T7, LIPID #### [facility] [place] [facility] [address] [address] [address] Danay De Los Santos Chloride [Moles/Vol] 105 mmol/L Normal 98-107 [facility] Comment on above: Performed By: #### T SH, CMP, T7, LIPID #### [facility] [place] [facility] [address] [place] [address] Dr. Danay De Los Santos CO2 [Moles/Vol] 29.3 mmol/L Normal 21.0-32.0 [facility] Comment on above: Performed By: #### T SH, CMP, T7, LIPID #### [facility] [place] [facility] [address] [place] [address] Dr. Danay De Los Santos Creatinine [Mass/Vol] 1.53 mg/dL Critically high 0.55-1.02 [facility] Comment on above: Performed By: #### T SH, CMP, T7, LIPID #### [facility] [place] [facility] [address] [place] [address] Dr. Danay De Los Santos EGFR-AF MAURITANIAN 41 mL/min/1.73m2 Critically low >=60 [facility] Comment on above: Performed By: #### T SH, CMP, T7, LIPID #### [facility] [place] [facility] [address] [place] [address] Dr. Danay De Los Santos EGFR-NON AF MAURITANIAN 34 mL/min/1.73m2 Critically low >=60 [facility] Comment on above: Performed By: #### T SH, CMP, T7, LIPID #### [facility] [place] [facility] [address] [address] [address] Danay De Los Santos Globulin (S) [Mass/Vol] 3.4 g/dL Normal [facility] Comment on above: Performed By: #### T SH, CMP, T7, LIPID #### [facility] [place] [facility] [address] [place] [address] Dr. Danay De Los Santos Glucose [Mass/Vol] 192 mg/dL Critically high 74-106 [facility] Comment on above: Performed By: #### T SH, CMP, T7, LIPID #### [facility] [place] [facility] [address] [place] [address] Dr. Danay De Los Santos Potassium [Moles/Vol] 4.6 mmol/L Normal 3.5-5.1 [facility] Comment on above: Performed By: #### T SH, CMP, T7, LIPID #### [facility] [place] [facility] [address] [place] [address] Dr. Danay De Los Santos Protein [Mass/Vol] 6.7 g/dL Normal 6.4-8.2 [facility] Comment on above: Performed By: #### T SH, CMP, T7, LIPID #### [facility] [place] [facility] [address] [place] [address] Dr. Danay De Los Santos Sodium [Moles/Vol] 144 mmol/L Normal 136-145 [facility] Comment on above: Performed By: #### T SH, CMP, T7, LIPID #### [facility] [place] [facility] [address] [place] [address] Dr. Danay De Los Santos Urea nitrogen [Mass/Vol] 25.0 mg/dL Critically high 7.0-18.0 [facility] Comment on above: Performed By: #### T SH, CMP, T7, LIPID #### [facility] [place] [facility] [address] [place] [address] Dr. Danay De Los Santos Urea nitrogen/Creatinine [Mass ratio] 16.3 mg/mg Normal [facility] Comment on above: Performed By: #### T SH, CMP, T7, LIPID #### [facility] [place] [facility] [address] [place] [address] Dr. Danay De Los Santos TSHon 12-15-2022 TSH 2.181 uIU/mL Normal 0.358-3.740 [facility] Comment on above: Performed By: #### T SH, CMP, T7, LIPID #### [facility] [place] [facility] [address] [place], [place] [address] Dr. Danay De Los Santos VITAMIN D 25 OHon 12-15-2022 VIT D 25-OH 32.9 ng/mL Normal [facility] Comment on above: Performed By: #### T SH, CMP, T7, LIPID #### [facility] [place] [facility] [address] [place], [place] [address] Dr. Danay De Los Santos VIT D RANGES SEE BELOW Normal [facility] Comment on above: Result Comment: <20 ng/mL Vit D deficient 20 - <30 ng/mL Vit D insufficient 30 - 100 ng/mL Vit D sufficient >100 ng/mL Potential Toxicity Performed By: #### T SH, CMP, T7, LIPID #### [facility] [place] [facility] [address] [place], [place] [address] Dr. Danay De Los Santos US ROEL DOP LEG LTon 12-02-19 23 US ROEL DOP LEG LT EXAM: US ROEL DOP LEG LT HISTORY: Edema of lower extremity (finding) COMPARISON: None. TECHNIQUE: Evaluation of the deep veins of the left lower extremity was performed utilizing B-mode, color flow and spectral analysis. FINDINGS: The visualized vessels comprising the deep venous systems from the common femoral vein through the calf veins demonstrate appropriate compressibility, spontaneous color Doppler flow, and augmentation of flow on spectral Doppler with distal compression. Additional findings: Soft tissue edema. IMPRESSION: No sonographic evidence of deep venous thrombosis of the left lower extremity. Electronically authenticated by: MORIAH MORRISON Date: 2022-12-01 12:54 Normal [facility] [place] [facility] XR Hand Complete Left*on XR Hand Complete Left* CLINICAL HISTORY: Fall with left hand stiffness. COMPARISON: None. RESULT: No distinct acute fracture. No dislocation. Underlying decreased bone mineral density. Mild to moderate scattered degenerative changes. Soft tissue edema. IMPRESSION: No acute osseous findings radiographically. Report reported and signed by Home Lockwood on 08/24/2022 1108 Normal [facility] XR Spine Cervical Complete*o n 08-24-2022 XR Spine Cervical Complete* CLINICAL HISTORY: Fall with posterior neck pain COMPARISON: None. RESULT: Cervical spine: Counting reference of craniocervical junction Straightening of the cervical lordosis. No radiographic evidence for acute fracture. Vertebral body heights appear grossly maintained. Multilevel degenerative changes with disc height loss, endplate osteophytes, facet/uncovertebral degenerative changes, especially of the mid to lower cervical spine. Multilevel bilateral bony foraminal narrowing. Prevertebral soft tissues grossly maintained. Visualized lung grossly clear. IMPRESSION: No acute osseous findings. Report reported and signed by Home Lockwood on 08/24/2022 1109 Normal [facility] XR HAND RIMA MIN 3Von 023 XR HAND RIMA MIN 3V EXAM: XR HAND RIMA MN N 3V HISTORY: Pain following fall COMPARISON: None. TECHNIQUE: 3 views of each hand FINDINGS: No visualized fracture, dislocation, subluxation or osseous lesion. Age-related joint space changes. No gross visualized soft tissue edema. IMPRESSION: No visualized abnormality Electronically authenticated by: BRIANNA KU Date: 2022-08-06 20:28 Normal [facility] [place] [facility] XR HIP RT 2 3V W PELVISon XR HIP RT 2 3V W PELVIS EXAM: XR HIP RT 2 3V W PELVIS HISTORY: Falls COMPARISON: None. TECHNIQUE: AP pelvis and 2 views of the right hip FINDINGS: No fracture, dislocation, subluxation or osseous lesion. The hip joints, pubic symphysis and sacroiliac joints are unremarkable for patient's age. Small enthesophytes off the tendinous insertions. IMPRESSION: No visualized acute abnormality Electronically authenticated by: BRIANNA KU Date: 2022-08-06 20:29 Normal [facility] [place] [facility] XR SHOULDER RT 2V or >on XR SHOULDER RT 2V or > EXAM: XR SHOULDER RT 2V or > HISTORY: Pain from fall COMPARISON: None. TECHNIQUE: 3 views FINDINGS: No osseous lesion, fracture, dislocation or subluxation. Moderate degenerative changes of the acromioclavicular joint. No visualized effusion. No visualized soft tissue edema. IMPRESSION: Normal x-rays Electronically authenticated by: BRIANNA KU Date: 2022-08-06 20:21 Normal [facility] XR Foot Complete Left*on XR Foot Complete Left* COMPARISON: None available HISTORY: Second and third digit pain after a fall TECHNIQUE: AP, lateral and oblique views of the foot obtained. FINDINGS: No acute fracture or dislocation. Joint spaces are preserved. Soft tissues are within normal limits. IMPRESSION: No acute osseous abnormality. Report reported and signed by Drew Looney on 08/04/2022 1044 Normal [facility] XR Knee Complete Left*on XR Knee Complete Left* HISTORY: Knee pain since a fall TECHNIQUE: AP, lateral and oblique views of the knee obtained. COMPARISON: Radiographs of the knee 04/06/2019 FINDINGS: No acute fracture or dislocation. Joint spaces of the knee are maintained. No knee joint effusion. Soft tissues are within normal limits. IMPRESSION: No acute osseous abnormality. Report reported and signed by Drew Looney on 08/04/2022 1046 Normal [facility] MRI BRAIN WO CONon 2 MRI BRAIN WO CON EXAMINATION: MRI BRAIN WO CON, 07/02/2022 1:55 PM EST HISTORY: Headache COMPARISON: None. TECHNIQUE: MRI of the brain was performed without IV contrast. FINDINGS: CEREBRUM: No edema, hemorrhage, mass, acute infarction, or inappropriate atrophy. Moderate scattered hyperintense foci are present, typical for a patient of this age, most commonly caused by small vessel ischemic changes. CEREBELLUM: No edema, hemorrhage, mass, acute infarction, or inappropriate atrophy. BRAINSTEM: No edema, hemorrhage, mass, acute infarction, or inappropriate atrophy. CSF SPACES: Ventricles, cisterns, and sulci are appropriate for age. No hydrocephalus, subarachnoid hemorrhage, or mass. SKULL: No mass or other significant visible lesion. SINUSES: Limited views demonstrate no significant mucosal thickening or fluid. ORBITS: Limited views are unremarkable. OTHER: Negative. IMPRESSION: Moderate white matter disease. Chronic small vessel ischemic changes are favored No acute infarct Electronically authenticated by: BRIANNA GREEN Date: 2022-07-02 14:48 Normal [facility] [place] [facility] INSULINon 05-28-2022 Insulin 13.4 uIU/mL Normal 2.6-24.9 [facility] Comment on above: Performed By: #### I NSULIN #### [facility] [place] [facility] [address] [place], [place] [address] Dr. Danay De Los Santos CBC AUTO DIFFon 05-26-2022 BASO # 0.1 103/ul Normal 0.0-0.1 [facility] Comment on above: Performed By: #### C BC #### [facility] [place] [facility] [address] [place], [place] [address] Dr. Danay De Los Santos Basophils/100 WBC (Bld) 0.8 % Normal 0.2-2.0 [facility] Comment on above: Performed By: #### C BC #### [facility] [place] [facility] [address] [place] [address] Dr. Danay De Los Santos EO # 0.6 103/ul Normal 0.0-0.7 [facility] Comment on above: Performed By: #### C BC #### [facility] [place] [facility] [address] [place] [address] Dr. Danay De Los Santos Eosinophils/100 WBC (Bld) 5.1 % Normal 0.9-7.0 [facility] Comment on above: Performed By: #### C BC #### [facility] [place] [facility] [address] [place] [address] Dr. Danay De Los Santos Erythrocyte distribution width (RBC) [Ratio] 14.7 % Normal 11.0-15.0 [facility] Comment on above: Performed By: #### C BC #### [facility] [place] [facility] [address] [place] [address] Dr. Danay De Los Santos Hematocrit (Bld) [Volume fraction] 37.8 % Normal 36.0-48.0 [facility] Comment on above: Performed By: #### C BC #### [facility] [place] [facility] [address] [place] [address] Dr. Danay De Los Santos Hemoglobin (Bld) [Mass/Vol] 12.3 g/dL Normal 12.0-16.0 [facility] Comment on above: Performed By: #### C BC #### [facility] [place] [facility] [address] [place] [address] Dr. Danay De Los Santos IG # 0.05 10e3/ul Critically high 0.00-0.03 [facility] Comment on above: Performed By: #### C BC #### [facility] [place] [facility] [address] [place] [address] Dr. Danay De Los Santos IG % 0.5 % Normal 0.0-0.5 [facility] Comment on above: Performed By: #### C BC #### [facility] [place] [facility] [address] [place] [address] Dr. Danay De Los Santos LYMPH # 2.1 103/ul Normal 1.2-3.8 [facility] Comment on above: Performed By: #### C BC #### [facility] [place] [facility] [address] [place] [address] Dr. Danay De Los Santos Lymphocytes/100 WBC (Bld) 19.1 % Critically low 20.5-60.0 [facility] Comment on above: Performed By: #### C BC #### [facility] [place] [facility] [address] [place] [address] Dr. Danay De Los Santos MANUAL DIFF REQ NO Normal [facility] Comment on above: Performed By: #### C BC #### [facility] [place] [facility] [address] [place] [address] Dr. Danay De Los Santos MCH (RBC) [Entitic mass] 30.8 pg Normal 26.7-34.0 [facility] Comment on above: Performed By: #### C BC #### [facility] [place] [facility] [address] [place] [address] Dr. Danay De Los Santos MCHC (RBC) [Mass/Vol] 32.5 g/dL Normal 29.9-35.2 [facility] Comment on above: Performed By: #### C BC #### [facility] [place] [facility] [address] [place] [address] Dr. Danay De Los Santos MCV (RBC) [Entitic vol] 94.5 fL Normal 81.0-99.0 [facility] Comment on above: Performed By: #### C BC #### [facility] [place] [facility] [address] [place] [address] Dr. Danay De Los Santos MONO # 0.6 103/ul Normal 0.3-0.8 [facility] Comment on above: Performed By: #### C BC #### [facility] [place] [facility] [address] [place] [address] Dr. Danay De Los Santos Monocytes/100 WBC (Bld) 5.1 % Normal 1.7-12.0 [facility] [place] [facility] Comment on above: Performed By: #### C BC #### [facility] [place] [facility] [address] [place] [address] Dr. Danay De Los Santos NEUT # 7.5 103/ul Critically high 1.4-6.5 [facility] Comment on above: Performed By: #### C BC #### [facility] [place] [facility] [address] [address] [address] Danay De Los Santos Neutrophils/100 WBC (Bld) 69.4 % Normal 43.0-75.0 [facility] Comment on above: Performed By: #### C BC #### [facility] [place] [facility] [address] [address] [address] Danay De Los Santos Platelet mean volume (Bld) [Entitic vol] 10.9 fL Normal 9.5-13.5 [facility] Comment on above: Performed By: #### C BC #### [facility] [place] [facility] [address] [address] [address] Danay De Los Santos PLT 235 103/ul Normal 150-450 [facility] Comment on above: Performed By: #### C BC #### [facility] [place] [facility] [address] [place] [address] Dr. Danay De Los Santos RBC 4.00 106/ul Critically low 4.20-5.40 [facility] Comment on above: Performed By: #### C BC #### [facility] [place] [facility] [address] [place] [address] Dr. Danay De Los Santos WBC 10.8 103/ul Normal 4.0-11.0 [facility] Comment on above: Performed By: #### C BC #### [facility] [place] [facility] [address] [address] [address] Danay De Los Santos FREE THYROXINE INDEX T7on FTI 1.83 Normal 1.30-4.50 [facility] Comment on above: Performed By: #### T SH, CMP, T7, LIPID #### [facility] [place] [facility] [address] [place] [address] Dr. Danay De Los Santos T3U 31.0 % Normal 30.0-39.0 [facility] Comment on above: Performed By: #### T SH, CMP, T7, LIPID #### [facility] [place] [facility] [address] [address] [address] Danay De Los Santos T4 [Mass/Vol] 5.90 ug/dL Normal 4.80-13.90 [facility] Comment on above: Performed By: #### T SH, CMP, T7, LIPID #### [facility] [place] [facility] [address] [address] [address] Danay De Los Santos GLYCOHEMOGLOBIN A1Con 2021 ADA RECOMMENDATION SEE BELOW Normal [facility] Comment on above: Result Comment: ADA RECOMMENDED LIMIT 4.0 - 6.0 ADA THERAPEUTIC TARGET < 7.0 ACTION SUGGESTED > 7.0 Performed By: #### A 1C #### [facility] [place] [facility] [address] [address] [address] Danay De Los Santos Glucose [Mass/Vol] 186 mg/dL Normal [facility] Comment on above: Performed By: #### A 1C #### [facility] [place] [facility] [address] [address] [address] Danay De Los Santos HbA1c (Bld) [Mass fraction] 8.1 % Critically high 4.5-6.2 [facility] Comment on above: Performed By: #### A 1C #### [facility] [place] [facility] [address] [address] [address] Danay De Los Santos IRONon 05-26-2022 Iron [Mass/Vol] 61.0 ug/dL Normal 50.0-170.0 [facility] Comment on above: Performed By: #### T SH, CMP, T7, LIPID #### [facility] [place] [facility] [address] [address] [address] Danay De Los Santos LIPID PROFILEon 05-26-2022 CHOL-HDL RATIO NORM SEE BELOW Normal [facility] Comment on above: Result Comment: 3.3 - 4.4 LOW RISK 4.4 - 7.1 AVERAGE RISK 7.1 - 11.0 MODERATE RISK >11.0 HIGH RISK Performed By: #### T SH, CMP, T7, LIPID #### [facility] [place] [facility] [address] [place] [address] Dr. Danay De Los Santos Cholesterol [Mass/Vol] 130 mg/dL Normal <=200 [facility] Comment on above: Performed By: #### T SH, CMP, T7, LIPID #### [facility] [place] [facility] [address] [place] [address] Dr. Danay De Los Santos Cholesterol in HDL [Mass/Vol] 40 mg/dL Normal 40-60 [facility] Comment on above: Performed By: #### T SH, CMP, T7, LIPID #### [facility] [address] [address] [address] Danay De Los Santos Cholesterol in LDL [Mass/Vol] 75.8 mg/dL Normal [facility] Comment on above: Performed By: #### T SH, CMP, T7, LIPID #### [facility] [address] [address] [address] Danay De Los Santos Cholesterol.total/Cho lesterol in HDL [Mass ratio] 3.3 {ratio} Normal [facility] Comment on above: Performed By: #### T SH, CMP, T7, LIPID #### [facility] [address] [address] [address] Danay De Los Santos HDL NORMAL > or = 60 mg/dl - LO W CARDIOVASCULAR RISK <40 mg/dl - HIGH CARDIOVASCULAR RISK Normal [facility] Comment on above: Performed By: #### T SH, CMP, T7, LIPID #### [facility] [address] [address] [address] Danay De Los Santos LDL CALC NORMAL SEE BELOW Normal [facility] Comment on above: Result Comment: <100 mg/dl OPTIMAL 100 - 129 mg/dl NEAR OR ABOVE OPTIMAL 130 - 159 mg/dl BORDERLINE HIGH 160 - 189 mg/dl HIGH >190 mg/dl VERY HIGH Performed By: #### T SH, CMP, T7, LIPID #### [facility] [address] [address] [address] Danay De Los Santos Triglyceride [Mass/Vol] 71 mg/dL Normal <=150 [facility] Comment on above: Performed By: #### T SH, CMP, T7, LIPID #### [facility] [address] [address] [address] Danay De Los Santos VLDL CALC 14.2 mg/dL Normal [facility] Comment on above: Performed By: #### T SH, CMP, T7, LIPID #### [facility] [address] [address] [address] Danay De Los Santos PROF 14(COMP METB)on 10-29-2 022 Albumin [Mass/Vol] 3.4 g/dL Normal 3.4-5.0 [facility] Comment on above: Performed By: #### T SH, CMP, T7, LIPID #### [facility] [address] [place] [address] Dr. Danay De Los Santos Albumin/Globulin [Mass ratio] 1.0 {ratio} Normal [facility] Comment on above: Performed By: #### T SH, CMP, T7, LIPID #### [facility] [address] [place] [address] Dr. Danay De Los Santos ALP [Catalytic activity/Vol] 92 U/L Normal 46-116 [facility] Comment on above: Performed By: #### T SH, CMP, T7, LIPID #### [facility] [address] [place] [address] Dr. Danay De Los Santos ALT [Catalytic activity/Vol] 15 U/L Normal 14-59 [facility] Comment on above: Performed By: #### T SH, CMP, T7, LIPID #### [facility] [address] [place] [address] Dr. Danay De Los Santos Anion gap [Moles/Vol] 10.4 mmol/L Normal [facility] [place] [facility] Comment on above: Performed By: #### T SH, CMP, T7, LIPID #### [facility] [address] [place] [address] Dr. Danay De Los Santos AST [Catalytic activity/Vol] 12 U/L Critically low 15-37 [facility] Comment on above: Performed By: #### T SH, CMP, T7, LIPID #### [facility] [address] [place] [address] Dr. Danay De Los Santos Bilirubin [Mass/Vol] 0.4 mg/dL Normal 0.2-1.0 [facility] Comment on above: Performed By: #### T SH, CMP, T7, LIPID #### [facility] [address] [place] [address] Dr. Danay De Los Santos Calcium [Mass/Vol] 8.7 mg/dL Normal 8.5-10.1 [facility] Comment on above: Performed By: #### T SH, CMP, T7, LIPID #### [facility] [address] [address] [address] Danay De Los Santos Chloride [Moles/Vol] 107 mmol/L Normal 98-107 [facility] Comment on above: Performed By: #### T SH, CMP, T7, LIPID #### [facility] [address] [address] [address] Danay De Los Santos CO2 [Moles/Vol] 28.9 mmol/L Normal 21.0-32.0 [facility] Comment on above: Performed By: #### T SH, CMP, T7, LIPID #### [facility] [address] [place] [address] Dr. Danay De Los Santos Creatinine [Mass/Vol] 1.18 mg/dL Critically high 0.55-1.02 [facility] Comment on above: Performed By: #### T SH, CMP, T7, LIPID #### [facility] [address] [place] [address] Dr. Danay De Los Santos EGFR-AF MAURITANIAN 55 mL/min/1.73m2 Critically low >=60 [facility] Comment on above: Performed By: #### T SH, CMP, T7, LIPID #### [facility] [address] [place] [address] Dr. Danay De Los Santos EGFR-NON AF MAURITANIAN 46 mL/min/1.73m2 Critically low >=60 [facility] Comment on above: Performed By: #### T SH, CMP, T7, LIPID #### [facility] [address] [place] [address] Dr. Danay De Los Santos Globulin (S) [Mass/Vol] 3.3 g/dL Normal [facility] Comment on above: Performed By: #### T SH, CMP, T7, LIPID #### [facility] [address] [place] [address] Dr. Danay De Los Santos Glucose [Mass/Vol] 153 mg/dL Critically high 74-106 [facility] Comment on above: Performed By: #### T SH, CMP, T7, LIPID #### [facility] [address] [place] [address] Dr. Danay De Los Santos Potassium [Moles/Vol] 4.3 mmol/L Normal 3.5-5.1 [facility] Comment on above: Performed By: #### T SH, CMP, T7, LIPID #### [facility] [address] [address] [address] Danay De Los Santos Protein [Mass/Vol] 6.7 g/dL Normal 6.4-8.2 [facility] Comment on above: Performed By: #### T SH, CMP, T7, LIPID #### [facility] [address] [address] [address] Danay De Los Santos Sodium [Moles/Vol] 142 mmol/L Normal 136-145 [facility] Comment on above: Performed By: #### T SH, CMP, T7, LIPID #### [facility] [address] [place] [address] Dr. Danay De Los Santos Urea nitrogen [Mass/Vol] 16.0 mg/dL Normal 7.0-18.0 [facility] Comment on above: Performed By: #### T SH, CMP, T7, LIPID #### [facility] [address] [place] [address] Dr. Danay De Los Santos Urea nitrogen/Creatinine [Mass ratio] 13.6 mg/mg Normal [facility] Comment on above: Performed By: #### T SH, CMP, T7, LIPID #### [facility] [address] [place] [address] Dr. Danay De Los Santos TSHon 05-26-2022 TSH 1.443 uIU/mL Normal 0.358-3.740 [facility] Comment on above: Performed By: #### T SH, CMP, T7, LIPID #### [facility] [address] [place] [address] Dr. Danay De Los Santos XR DEXA BONE DENSITYon 04-05 XR DEXA BONE DENSITY EXAMINATION: XR DEX A BONE DENSITY, 04/05/2022 11:40 AM EDT HISTORY: Senile osteoporosis COMPARISON: DEXA bone densitometry 08/22/2018 TECHNIQUE: Dual-energy X-ray absorptiometry (DEXA) bone density study performed for the axial skeleton. FINDINGS: SPINE ANALYSIS: Average bone mineral density is 1.171 g/cm2. T-score (standard deviation relative to young adult mean): -0.1 . Not previously evaluated. HIP ANALYSIS: Lowest bone mineral density is within the left femoral neck, 0.691 g/cm2. T-score (standard deviation relative to young adult mean): -2.5 . +2.3% change since prior study. IMPRESSION: World [employer] Classification: Osteoporosis - High Fracture Risk Electronically authenticated by: BECKY OWENS Date: 2022-04-05 12:11 Normal [facility] GLYCOHEMOGLOBIN A1Con 2021 ADA RECOMMENDATION SEE BELOW Normal [facility] Comment on above: Result Comment: ADA RECOMMENDED LIMIT 4.0 - 6.0 ADA THERAPEUTIC TARGET < 7.0 ACTION SUGGESTED > 7.0 Performed By: #### T SH, CMP, T7, LIPID #### [facility] [address] [address] [address] Danay De Los Santos Glucose [Mass/Vol] 174 mg/dL Normal [facility] Comment on above: Performed By: #### T SH, CMP, T7, LIPID #### [facility] [address] [address] [address] Danay De Los Santos HbA1c (Bld) [Mass fraction] 7.7 % Critically high 4.5-6.2 [facility] Comment on above: Performed By: #### T SH, CMP, T7, LIPID #### [facility] [address] [address] [address] Danay De Los Santos MG MAMM SCREEN 3D RIMA CADon 02-14-2022 MG MAMM SCREEN 3D RIMA CAD Patient: VIRGEN GONZALES Exam Date: 02/14/2022 : 1955 Gender:F Ordering : AGGIE DAVIS [facility] Admission #: [id number] Family : Order #: [id number] CLICK HERE TO VIEW EXAM RADIOLOGY REPORT PROCEDURE: MAMMOGRAM SCREENING 3D BILATERAL CAD COMPARISON: MG MAMM SCREEN 3D RIMA CAD, 02/09/2021. MG MAMM SCREEN RIMA W CAD, 02/09/2020. INDICATIONS: Screening mammography Calculator Name NCI Breast Cancer Risk Assessment Tool 5 Year Breast Cancer Risk 0.80% Lifetime Breast Cancer Risk 2.90% Personal Breast Cancer No Personal Ovarian Cancer No Treatments None Family Cancers Aunt-paternal with leukemia cancer at age 65; Aunt-paternal with unknown x 6 aunts cancer at age 40; Grandmother-maternal with unknown cancer at age 25. LOCATION: [facility] BREAST COMPOSITION: Heterogeneously dense,which may obscure small masses. FINDINGS: DIAGNOSTIC CATEGORY 1--NEGATIVE. RIGHT BREAST: No significant suspicious finding. No significant change has occurred. LEFT BREAST: No significant suspicious finding. No significant change has occurred. RECOMMENDATIONS: ROUTINE MAMMOGRAM AND CLINICAL EVALUATION IN 12 MONTHS. PLEASE NOTE: A NORMAL MAMMOGRAM DOES NOT EXCLUDE THE POSSIBILITY OF BREAST CANCER. A CLINICALLY SUSPICIOUS PALPABLE LUMP SHOULD BE BIOPSIED. Dictated by: Becky Owens M.D. on 02/14/2022 at 16:09 Approved by: Becky Owens M.D. on 02/14/2022 at 16:12 Normal [facility] CARDIAC STRESS/REST INJE CTIONon 01-27-2020 [facility] CARDIAC STRESS/REST INJECTION Patient Name: VIRGEN GONZALES STUDY: MYOCARDIAL PERFUSION STRESS TEST WITH LEXISCAN Performing facility: [facility], [address] [place] [address], [address], [address] Provider: Catarino Franks MD, FACC PCP: Dr. Nicola Granger Supervising provider: Catarino Franks MD, FACC INDICATION: Abnormal EKG; Pre-operative risk assessment for Knee surgery scheduled at unknown on unknown. RBBB HISTORY: Gender: F; Age: 64 y/o ; Height: 152.4 cm; Weight: 77.6295166 kg. High Cholesterol; Abnormal EKG; Diabetes; Family HX CAD; HTN; Smoking COMPARISON: No comparison. ACCESSION NUMBER(S): [id number]; [id number]; [id number] ORDERING CLINICIAN: CATARINO FRANKS TECHNIQUE: ONE DAY protocol. Stress injection: Date:01/27/2020, 33.3 mCi of Myoview IV 20 seconds after rapid injection of Lexiscan. Rest injection: Date: 01/27/2020, 12 mCi of Myoview IV at rest. The patient had a rapid injection of 0.4 mg of Lexiscan IV over 10 seconds. Imaging was performed by gated tomographic technique. Reason for Lexiscan: hip/knee pain STRESS TEST DATA: Resting heart rate was 61 BPM. Resting blood pressure was 126/80 mmHg. Peak blood pressure was 172/80 mmHg. Peak heart rate was 129 BPM. Aminophylline given 50mg IV. TEST TERMINATED DUE TO: Protocol completed FINDINGS: STRESS TEST RESULTS: Resting electrocardiogram revealed normal sinus rhythm with right bundle branch block. There were no significant ischemic ECG changes or dysrhythmias. The patient did not have chest pains during procedure. Patient developed severe cough following Lexiscan administration requiring administration of 50 mg intravenous aminophylline with resolution of symptoms There was a normal recovery phase. IMAGING RESULTS: Image quality was good. Rest and stress tomographic images were reviewed and revealed normal perfusion without evidence of ischemia, myocardial infarction, or left ventricular dilatation with stress. Overall left ventricular systolic function appeared to be normal without regional wall motion abnormalities. Ejection fraction was 67%. TID is 1.01 and is normal. There was no evidence of attenuation artifact. IMPRESSION: Normal Lexiscan Myoview cardiac perfusion stress test. No evidence of ischemia or myocardial infarction by perfusion imaging. Normal left ventricular systolic function, ejection fraction 67%. No previous studies are available for comparison. Electronically signed by: CATARINO FRANKS [facility] Vital Signs Date Time Vital Sign Value Performing Clinician Facility 08-27-2023 15:38-0500 Body height 149.9 cm [facility] 08-27-2023 15:38-0500 Body mass index (BMI) [Ratio] 39.59 kg/m2 [facility]ice [facility] 08-27-2023 15:38-0500 Body temperature 97.39 [degF] Brice [facility] Work Phone: [facility] [employer] 08-27-2023 15:38-0500 Body weight 88.91 kg Brice [employer] Phone: [facility] [employer] 06-07-2023 08:27-0500 Heart rate 77 /min Brice [employer] [facility] 06-07-2023 08:27-0500 SaO2% (BldA) [Mass fraction] 98 % Brice Oliva [facility] 06-07-2023 08:26-0500 Respiratory rate 20 /min Brice Oliva [facility] 06-07-2023 08:26-0500 Blood Pressure Location Brice Oliva [facility] 06-07-2023 08:26-0500 Diastolic blood pressure 64 mm[Hg] Brice Oliva [facility] 06-07-2023 08:26-0500 Mean blood pressure 77 mm[Hg] Brice Oliva [facility] 06-07-2023 08:26-0500 Systolic blood pressure 102 mm[Hg] Brice Oliva [facility] 06-07-2023 08:25-0500 Body temperature 97.88 [degF] Brice Oliva [facility] 06-07-2023 08:05-0500 Blood Pressure Location Brice Oliva [facility] 06-07-2023 08:05-0500 Diastolic blood pressure 59 mm[Hg] Brice Oliva [facility] 06-07-2023 08:05-0500 Heart rate 73 /min Brice Oliva [facility] 06-07-2023 08:05-0500 Respiratory rate 20 /min Brice Oliva [facility] 06-07-2023 08:05-0500 SaO2% (BldA) [Mass fraction] 95 % Brice Oliva [facility] 06-07-2023 08:05-0500 Systolic blood pressure 114 mm[Hg] Brice Oliva [facility] 06-07-2023 07:30-0500 Blood Pressure Location Brice Oliva [facility] 06-07-2023 07:30-0500 Diastolic blood pressure 70 mm[Hg] Brice Oliva [facility] 06-07-2023 07:30-0500 Heart rate 70 /min Brice Oliva [facility] 06-07-2023 07:30-0500 Respiratory rate 20 /min Brice Oliva [facility] 06-07-2023 07:30-0500 SaO2% (BldA) [Mass fraction] 96 % Brice Oliva [facility] 06-07-2023 07:30-0500 Systolic blood pressure 114 mm[Hg] Brice Oliva [facility] 06-07-2023 06:52-0500 Mean blood pressure 76 mm[Hg] Brice Oliva [facility] 06-07-2023 06:49-0500 Body temperature 97.88 [degF] Brice Oliva [facility] 06-07-2023 06:49-0500 Mean blood pressure 79 mm[Hg] Brice Oliva [facility] Encounters Encounter Date Encounter Type Care Provider Facility Start: 12-31-2023 End: 12-31-2023 ambulatory BRICE OLIVA Not Available Start: 11-11-2023 ambulatory Brice Oliva Facility: [facility] Start: 10-29-2023 End: 10-29-2023 ambulatory BRICE OLIVA Not Available Start: 10-08-2023 End: 10-08-2023 ambulatory BRICE OLIVA Not Available Start: 2023 Chart abstracting Brice brantley DO Work Phone: [facility] Start: 08-27-2023 End: 08-27-2023 Patient encounter procedure Brice Oliva DO Work Phone: [facility] Comment on above: Left knee pain, unsp ecified chronicity (Primary Dx) Start: 08-27-2023 End: 08-27-2023 ambulatory BRICE OLIVA Not Available Start: 08-22-2023 End: 08-22-2023 ambulatory Brice Oliva Facility:[facility] Start: 08-22-2023 End: 08-22-2023 ambulatory GUEST ROOM ATTENDANT-C Aggie Davis Work Phone: [facility] Work Phone: Start: 08-22-2023 End: 08-22-2023 Discharged Recurring GUEST ROOM ATTENDANT-C Aggie Davis Work Phone: [facility] Attachment Tester [address] Start: 08-06-2023 End: 08-06-2023 ambulatory BRICE OLIVA Not Available Start: 07-23-2023 End: 07-23-2023 ambulatory BRICE OLIVA Not Available Start: 07-16-2023 End: 07-16-2023 ambulatory BRICE OLIVA Not Available Start: 06-18-2023 End: 06-18-2023 ambulatory BRICE OLIVA Not Available Start: 06-07-2023 End: 06-07-2023 ambulatory Brice Oliva Facility:[facility] Start: 06-07-2023 End: 06-07-2023 Admission to same day surgery center Brice Oliva [facility] Start: 04-12-2023 End: 04-12-2023 Emergency department patient visit Sherwin Baker Facility:[facility] Start: 12-26-2022 ambulatory AGGIE DAVIS Facility: [facility] Start: 12-20-2022 End: 12-21-2022 ambulatory AGGIE SUSAN Facility:[facility] Start: 12-15-2022 End: 12-16-2022 ambulatory AGGIE SUSAN Facility:[facility] Start: 12-01-2022 End: 12-02-2022 ambulatory AGGIE SUSAN Facility:[facility] Start: 12-01-2022 End: 12-01-2022 ambulatory AGGIEALICIA ROTHMER Facility:[facility] Start: 08-06-2022 End: 08-06-2022 ambulatory AGGIEALICIA DAVIS Facility:[facility] Start: 07-02-2022 End: 07-03-2022 ambulatory AGGIE DAVIS Facility:[facility] Start: 05-26-2022 End: 05-27-2022 ambulatory AGGEI DAVIS Facility:[facility] Start: 04-05-2022 End: 04-06-2022 ambulatory AGGIE DAVIS Facility:[facility] Start: 03-25-2022 ambulatory AGGIE DAVIS Facility: [facility] Start: 03-15-2022 End: 03-16-2022 ambulatory AGGIE DAVIS Facility:[facility] Start: 02-14-2022 End: 02-15-2022 ambulatory AGGIE DAVIS Facility:[facility] Start: 11-09-2021 End: 11-09-2021 Patient encounter procedure Michele Jane [facility] Procedures Date Procedure Procedure Detail Performing Clinician Start: 08-27-2023 Arthrocentesis aspir &/inj major jt/bursa w/o Phi DESIR Work Phone: Start: 06-07-2023 Decompression of med pablito nerve Brice [facility] Start: 09-30-2020 Arthroscopy of knee Ronen Jane Start: 05-09-2016 Right little finger release A-1 linda Michele Jane Cholecystectomy Michele Jane History of tonsillectomy Ronen Jane Hysterectomy Michele Jane needle removed right foot Emilee reynaldo [place]our[place] Operation on toenail Michele perez Release of trigger finger Emilee jacobs [place] right carpel tunnel Michele dill right knee arthroscopy x2 Emilee hn [place] Plan of Treatment Date Care Activity Detail Author Start: 06-01-2025 Pneumococcal Vaccine : 65+ Years (3 - PPSV23 or PCV20) Pneumococcal Vaccine: 65+ Years (3 - PPSV23 or PCV20) [facility] Start: 10-08-2023 End: 10-08-2023 Patient encounter procedure 10/08/2023 10:00 AM EDT Office Visit [facility] [address] [place] [id number] Brice Oliva DO [address] [place] [address] [facility] Start: 1994 Screening for malign ant neoplasm of breast Mammogram [facility] Start: 1955 Screening for malign ant neoplasm of colon [facility] Immunizations Immunization Date Immunization Notes Care Provider Fa cility 11-14-2020 SARS-CoV-2 (COVID-19 ) mRNA-1273 vaccine Michele Jane [facility] 04-18-2018 tetanus toxoid, redu soledad diphtheria toxoid, and acellular pertussis vaccine, adsorbed GUEST ROOM ATTENDANT-C Aggie Davis Work Phone: [facility] Payers Date Payer Category Payer Worker's Compensation [id number] 2023 Self-pay [id number] 2023 Unknown [id number] 2022 Medicare [employer] MEDICARE ADVANTAGE [employer] MEDICARE [id number] 2022-Present [address] [address] [place] [address] [id number] 1959 Medicare [id number] 1959 Unknown [id number] 1954 Unknown [id number] 2.16.840.1.327960.3.579.2. 593 1954 Unknown [id number] 16.840.1.642557.3.579.2. 593 1954 Unknown [id number] 2.16.840.1.946347.3.579.2. 593 1954 Unknown [id number] 2.16.840.1.602400.3.579.2. 593 1954 Unknown [id number] 2.16.840.1.887819.3.579.2. 593 1954 Unknown [id number] 2.16.840.1.376279.3.579.2. 593 1954 Unknown [id number] 2.16.840.1.486000.3.579.2. 593 1954 Unknown [id number] 2.16.840.1.591484.3.579.2. 593 1954 Unknown [id number] 2.16.840.1.123889.3.579.2. 593 1954 Unknown [id number] 2.16.840.1.623755.3.579.2. 593 1954 Unknown [id number] 2.16.840.1.285267.3.579.2. 593 1954 Unknown [id number] 2.16.840.1.491051.3.579.2. 593 1954 Unknown [id number] 2.16.840.1.777690.3.579.2. 727 1954 Unknown [id number] 2.16.840.1.294602.3.579.2. 727 1954 Unknown [id number] 2.16.840.1.932566.3.579.2. 1259 1954 Unknown [id number] 2.16.840.1.772484.3.579.2. 1259 1954 Unknown [id number] 2.16.840.1.395076.3.579.2. 1259 -12-1956 Unknown [id number] 2.16.840.1.553020.3.579.2. 1258 1954 Unknown [id number] 2.16.840.1.121427.3.579.2. 1258 1954 Unknown [id number] 2.16.840.1.228671.3.579.2. 1258 1954 Unknown [id number] 2.16.840.1.042350.3.579.2. 1258 1954 Unknown [id number] 2.16.840.1.458381.3.579.2. 1258 1954 Unknown [id number] 2.16.840.1.761631.3.579.2. 1258 1954 Unknown [id number] 2.16.840.1.912407.3.579.2. 1258 1954 Unknown [id number] 2.16.840.1.847978.3.579.2. 1258 1954 Unknown [id number] 2.16.840.1.274922.3.579.2. 1258 1954 Unknown [id number] 2.16.840.1.279072.3.579.2. 1258 1954 Unknown [id number] 2.16.840.1.262096.3.579.2. 1258 1954 Unknown [id number] 2.16.840.1.061255.3.579.2. 1258 1954 Unknown [id number] 2.16.840.1.955432.3.579.2. 1258 1954 Unknown [id number] 2.16.840.1.353601.3.579.2. 1258 1954 Unknown [id number] 2.16.840.1.148642.3.579.2. 1258 1954 Unknown [id number] 2.16.840.1.892726.3.579.2. 1259 1954 Unknown [id number] 2.16.840.1.883395.3.579.2. 1259 1954 Unknown [id number] 2.16.840.1.305556.3.579.2. 1259 1954 Unknown [id number] 2.16.840.1.388723.3.579.2. 1259 Unknown Dionisio BC/BS [id number] Unknown [id number] 2.16.840.1.282750.3.579.2. 531 Unknown [id number] 2.16.840.1.627080.3.579.2. 531 Social History Date Type Detail Facility Tobacco Cigarettes [facility] Comment on above: 05/30 pkg daily Start: 08-27-2023 Sex Assigned At Female F [facility] Tobacco smoking status No Smoking Status Entered [facility] Start: 05-07-2023 Tobacco smoking status [facility] Smoke tobacco daily [facility] History of tobacco use Cigarette Smoker [facility] Start: 05-07-2023 Tobacco use and exposure Smokeless tobacco non-user [facility] Start: 08-27-2023 Alcohol intake Lifetime non-d kathe (finding) [facility] Start: 08-27-2023 History of Social function [facility] Start: 05-07-2023 Alcohol Comment caffeine intak e: more than 4 cups per day of coffee, pop, tea [facility] Start: 1955 Sex Assigned At Not on file [facility] Start: 04-12-2023 Tobacco smoking status [facility] Smoker (finding) [facility] Start: 1955 Sex Assigned At Female F [facility] Medical Equipment Procedure Code Equipment Code Equipment Origin al Text Equipment Identifier Dates USE 1 ONCE DAILY DIRECTED [id number] Start: 04-05-2023 TEST BLOOD SUGAR THREE TIMES DAILY for 90 [id number] Blood Sugar Diagnostic (Onetouch Ultra Test) strip Start: 10-02-2017 End: 01-06-2020 Functional Status Date Assessment Result Facility 06-07-2023 Functional Status N/A [facility] History of Present illness Narrative 08-27-2023 DAR Delong - 08/27/2023 3:45 PM ESTDonnadoc Rusty - 08/27/2023 3:45 PM EST Note Date & Type Note Facility 08-27-2023 History of Presen t illness Narrative Associated Order(s): L Inj/Asp: L knee Post-Procedure Diagnose(s): Left knee pain, unspecified chronicity L Inj/Asp: L knee on 08/27/2023 3:43 PM Indications: pain Details: 21 G needle, lateral approach Medications: 16 mg hylan 16 MG/2ML Consent was given by the patient. Images from the original note were not included. Virgen Zelaya is a 67 y.o. female presents with chief complaint of Injections of the Left Knee (Synvisc one) HPI: Virgen is a 67-year-old female here to receive a Synvisc 1 injection into the left knee. She noted some improvement with the cortisone injection given on 08/06/2023. MEDICATIONS: Current Outpatient Medications Medication Instructions alendronate (Fosamax) 70 MG tablet 1 tablet Orally once weekly for 90 days ASPIRIN 81 MG chewable tablet Every 24 hours Blood Glucose Monitoring Suppl (True Metrix Air Glucose Meter) w/Device kit busPIRone (Buspar) 7.5 MG tablet Every 12 hours cetirizine (ZyrTEC) 10 MG tablet Every 24 hours ciprofloxacin (CIPRO) 500 mg, Oral, Every 12 hours esomeprazole (NexIUM) [address] capsule 1 capsule, Every 24 hours ferrous sulfate 325 (65 Fe) MG tablet Every 24 hours Flovent HFA 110 MCG/ACT inhaler Every 12 hours FLUoxetine (PROzac) 20 MG capsule Every 24 hours hydroCHLOROthiazide (HYDRODiuril) 25 MG tablet Every 24 hours Jardiance 25 MG (Prior Auth: Rx Ref#:[id number]) Oral for 90 Lasix 20 MG tablet 1 tablet Orally Once a day as needed for 90 days lisinopril 10 MG tablet Every 24 hours naproxen (NAPROSYN) 500 mg, Oral Ozempic, 0.25 or 0.5 MG/DOSE, 2 MG/3ML solution pen-injector 0.25 mg Subcutaneous weekly for 30 days potassium chloride CR (K-Tab) 20 MEQ ER tablet Every 24 hours pregabalin (Lyrica) 75 MG capsule TAKE 1 CAPSULE TWICE DAILY for 30 pseudoephedrine-Ibuprofen 30-200 MG tablet per tablet Every 6 hours RA Vitamin C 500 mg, Oral, Daily, chew ReliOn Insulin Syringe 31G X 15/64 0.3 ML misc USE 1 ONCE DAILY DIRECTED simvastatin (Zocor) 40 MG tablet Every 24 hours True Metrix Blood Glucose Test test strip TEST BLOOD SUGAR THREE TIMES DAILY for 90 varenicline (Chantix) 1 MG tablet ALLERGIES: Allergies Allergen Reactions Hydrocodone Unknown Other Reaction(s): upset stomach Hydrocodone-Acetaminophen Unknown Other Reaction(s): Unknown Oxycodone-Acetaminophen Other Reaction(s): sleeps a long time, Unknown Penicillins Other Reaction(s): Difficulty breathing at rest, hives, hives, Unknown Propoxyphene Itching and Unknown Tramadol Other Reaction(s): itching Codeine Rash Other Reaction(s): Nausea SURGICAL HISTORY: Past Surgical History: Procedure Laterality Date CARPAL TUNNEL RELEASE Bilateral CHOLECYSTECTOMY 2005 FOOT SURGERY 1973 needle in foot removed HYSTERECTOMY 1988 KNEE SURGERY Right 2006 NAIL REMOVAL toenails removed x3 FL ARTHROSCOPY KNEE DIAGNOSTIC W/WO SYNOVIAL BX SPX Right 02/24/2020 Dr. Ashraf [place] KNEE SCOPE,DIAGNOSTIC Right 09/30/2020 CHILO TONSILLECTOMY 1972 TRIGGER FINGER RELEASE 05/09/2016 RLF trigger release DAP TRIGGER FINGER RELEASE Left 06/07/2023 LRF / Thumb - JAB FAMILY HISTORY: Family History Problem Relation Name Age of Onset Hypertension Mother Heart disease Mother Stroke Mother Mental illness Mother Osteoarthritis Mother Diabetes Father Heart disease Father No Known Problems Sister Heart disease Sibling No Known Problems Son SOCIAL HISTORY: Social History Tobacco Use Smoking status: Every Day Types: Cigarettes Smokeless tobacco: Never Vaping Use Vaping Use: Never used Substance Use Topics Alcohol use: Never Comment: caffeine intake: more than 4 cups per day of coffee, pop, tea Drug use: Never Depression: Not on file REVIEW OF SYMPTOMS: The review of systems, history and current medications list are all reviewed today. OBJECTIVE: Visit Vitals Temp 97.4 F Ht 4' 11 Wt 196 lb BMI 39.59 kg/m OB Status Unknown Smoking Status Every Day BSA 1.92 m Physical Exam She is alert and oriented, well nourished, well hydrated female in no acute distress. Mood and affect are appropriate. She is ambulating independently. LEFT KNEE Injection site is benign. There is no effusion. Full flexion and extension. She is tender at the medial joint line. She is tender over the lateral joint line. She is tender at the patellofemoral compartment. No patellar instability or apprehension. Negative Judie's. Negative anterior and posterior drawer. There is no varus or valgus instability. Positive Monie's. RIGHT KNEE She has well-healed arthroscopy portals. There is no effusion. Full flexion and extension. There is tenderness at the medial joint line. No patellar instability. Negative anterior and posterior drawer. There is no varus or valgus instability. ASSESSMENT AND PLAN: Assessment/Plan 67-year-old female with degenerative osteoarthrosis left knee. I reviewed the history, physical examination, and diagnosis with the patient. After informed consent and using sterile technique, the anterolateral aspect of the left knee was prepped with alcohol and Betadine. The skin was anesthetized with ethyl chloride and the knee was then injected with a mixture of 2 mL of Synvisc #1 with a 22-gauge 1-1/2 inch needle. The patient tolerated this well. A Band-Aid was applied. The patient was instructed to ice the knee and to watch for any signs of infection including redness, increased pain in the knee, drainage from the injection site, fever, chills, etc. The patient was instructed to call the office if he/she experiences any adverse reaction from the injection. This was administered by out physician's assistant professor of nursing Phi Armendariz under my direct supervision. Follow-up in six weeks for re-evaluation. A total of 30 to 39 minutes was spent on this patient encounter which included chart review, check in, nurse triage, history taking, physical examination, diagnostic study review, patient counseling and discussion, entering information into the patient's medical record, and coordinating patient care. Brice Oliva D.O. documented in this encounter [facility] Discharge instructions 06-07-2023 Note Date & Type Note Facility 06-07-2023 Hospital Discharg e instructions Patient Education 06/07/2023 07:30:41 Conchita Oliva - Carpal Tunnel/Cubital Tunnel Release Instructions (Custom) [place], [place] [facility] CARPAL TUNNEL RELEASE INSTRUCTIONS Post-Operative Week One Please do not remove dressing until post operative day 3. On the 4th day start daily Betadine cleanses and apply a bandaid over the incision. You may bend your fingers and thumb gently immediately after surgery. Do not be alarmed if there is some bruising or swelling in your hand. This frequently occurs after a surgical procedure on the hand or wrist. Report increased redness, pain or drainage. Avoid squeezing objects against resistance, lifting, twisting or climbing. Driving is legal. If you are involved in an accident, you must be able to prove that you maintained full control of your vehicle. For this reason, it is advised that you do not drive until your strength returns. Similarly, all sports activities are discouraged, at least until your first post-operative visit at which time we will discuss how and when to resume sports. Post-Operative Week Two You will be seen in the office between 10 and 14 days after surgery. At this time the incision will be checked and sutures will be removed. Advil, Aleve, and/or Tylenol should be adequate for pain, if needed. Do not bend or straighten your wrist excessively. No forceful squeezing with the hand. Continue the exercises for your fingers, elbow and shoulder. You may drive, type or write as long as you are comfortable. The incision may be become thickened. To soften the scar it is helpful after suture removal to apply any type lotion such as lanolin, Sera cream or cocoa butter. This should be done with gentle massage for five - ten minutes twice a day until the scar softens. Oftentimes, it takes several months for the scar to become completely normal. Some scar sensitivity may persist for up to four to six months, generally not longer. Post-Operative Weeks Three and Four After the sutures are removed, you will begin bending and straightening your wrist to improve motion. Please begin to squeeze either a sponge or Nerf ball lightly and regularly to regain strength in your hand. You may lift objects with this hand, which weigh less than five pounds. Post-Operative Weeks Five and Six If there is still some loss of mobility in the wrist, you may begin doing wrist exercises for stretching. You may return to non-contact recreational activities as tolerated. It is recommended that you avoid contact sports until at least six weeks after surgery. After Six Week You may return to any activity as tolerated. REMEMBER, in some patients it takes several months for: The scar tenderness to resolve. Weakness to resolve The pins and needles to resolve. Brice Oliva DO [facility] [address] [place] [id number] Reviewed: 3-18 Follow Up Care 05/07/2023 14:01:18 With:Brice Oliva DO, ORT Address: [address] [place] [address]- When: Unknown Comments:, 2 pm Appointment has already been scheduled [facility] History and physical note 06-06-2023 Note Date & Type Note Facility 06-06-2023 Note [id number] [facility] Clinical Note 03-16-2022 Note Date & Type Note Facility 03-16-2022 Note PROCEDURE: XR TIB_FI B RT 2V HISTORY: Pain of right lower leg ; chronic nonhealing wound anterior mid bowen COMPARISON: None. FINDINGS: BONES:No fracture, acute abnormality, or significant arthropathy. SOFT TISSUES:No visible soft tissue swelling. EFFUSION:None visible. OTHER: Negative. IMPRESSION: 1. No bone involvement regarding the anterior bowen chronic wound. 2. No radiopaque foreign body. Electronically authenticated by: BECKY OWENS Date: 2022-03-16 08:24 [facility] Evaluation + Plan note Note Date & Type Note Facility Evaluation + Plan note No data available for this section [facility] Evaluation note Note Date & Type Note Facility Evaluation note Diagnosis Left knee pain, unspecified chronicity- Primary documented in this encounter [facility] Evaluation note Note Date & Type Note Facility Evaluation note [facility] Hospital Discharge instructions Note Date & Type Note Facility Hospital Discharge instructions No data available for this section [facility] Progress note Note Date & Type Note Facility Progress note No data available for this section [facility] Summary Purpose Family History No Family History Records Found Relationship Condition Age at Onset Recorded Date/T tati father Coronary artery disease Unknown Dementia Unknown Congestive heart failure Unknown Diabetes mellitus Unknown Not Specified Coronary artery disease Unknown brother Myocardial infarction Unknown brother Cerebrovascular accident (CVA) Unknown father Unknown Heart disease Unknown family member Unknown Not Specified Unknown Hypertension Unknown History of stroke Unknown Family history of mental disorder Unknown sibling Heart disease Unknown Advance Directives No Advanced Directives Records Found Advance Directive Response Recorded Date/ Time Advance Directives No October 02 9:55am Reason for Referral Specialty Diagnoses / Procedures Referred By Contac t Referred To Contact Orthopaedic Surgery Diagnoses Left knee pain, unspecified chronicity Procedures L Inj/Asp: L knee Brice Oliva, DO [address] [place] [address] Referral ID Status Reason Start Date Expiration Date Visits Re quested Visits Authorized [id number] Closed 08/27/2023 02/23/2024 1 1 Chief Complaint and Reason for Visit Chief Complaint L hand Additional Source Comments INFORMATION SOURCE (unrecogn ized section and content) DATE CREATED AUTHOR 03/11/2020 [facility] DATE CREATED AUTHOR AUTHOR'S ORGANIZ ATION 08/25/2022 [facility] dical Specialist DATE CREATED AUTHOR AUTHOR'S ORGANIZ ATION 01/04/2023 [facility] DATE CREATED AUTHOR AUTHOR'S ORGANIZ ATION 10/20/2023 [facility] DATE CREATED AUTHOR AUTHOR'S ORGANIZ ATION 12/13/2023 [facility] DATE CREATED AUTHOR AUTHOR'S ORGANIZ ATION 01/01/2024 [facility] dical Specialists EPIC Patient Care team informatio n (unrecognized section and content) Knobber Relationship Specialty Start Date End Date Unallocated, [facility] Provider [address] [place] [address] PCP - General 12/18/22 Knobber Relationship Specialty Start Date End Date Unallocated, [facility] Provider [address] [place] [address] PCP - General 12/18/22 Team Status: Active Member Role Status Dates Aggie Davis NP-Hilda Primary Care Provider Active Team Status: Inactive Member Role Status Dates AVIVA Dey Primary Care Provider Active Start: August 22, 2023 End: August 22, 2023 Brice Oliva DO Attending Provider Active Sta rt: August 22, 2023 End: August 22, 2023 Reason for Visit (unrecogniz ed section and content) Reason Comments Injections Synvisc one Goals (unrecognized section and content) Goals may be documented in a n alternate section FOR RECORDS PERTAINING TO PATIENTS WHO ARE OR HAVE BEEN ENROLLED IN A CHEMICAL DEPENDENCY/SUBSTANCEABUSE PROGRAM, SOME INFORMATION MAY BE OMITTED. This clinical summary was aggregated from multiple sources. Caution should be exercised in using it in the provision of clinical care. This summary normalizes information from multiple sources, and as a consequence, information in this document may materially change the coding, format and clinical context of patient data. In addition, data may be omitted in some cases. CLINICAL DECISIONS SHOULD BE BASED ON THE PRIMARY CLINICAL RECORDS. [facility]. provides no warranty or guarantee of the accuracy or completeness of information in this document.
[2024-01-24 21:50] VITALS: BP 141/80; PULSE 62; TEMP 36.6; O2SAT 97
[2024-01-24 21:54] VITALS: O2SAT 99
[2024-01-24 21:56] VITALS: PULSE 99
--- NOTE | 2024-01-24 21:58 | ED_ITS ---
HPI - URI/Sore Throat General Chief Complaint: Upper Respiratory Infection Stated Complaint: Shortness of Breath, Cough Time Seen by Provider: 01/24/24 21:54 Source: patient Limitations: no limitations History of Present Illness HPI Narrative: daily smoker. Presents complaining of being ill for 2 weeks. States she was seen by her PCP and prescribed a Zpak. States it did help some but she did not follow up with her doctor. symptoms starting returning last week. Cough productive of clear phlegm. No fever. Chest and abdomen are sore and feel like a burn sensation. Started feeling short of breath tonight and left work to come to the ER. No nausea or vomiting. Related Data Home Medications ?Medication ?Instructions ?Recorded ?Confirmed buspirone 7.5 mg tablet mg 01/24/24 empagliflozin 25 mg tablet mg 01/24/24 (Jardiance) fluoxetine 20 mg capsule mg 01/24/24 furosemide 20 mg tablet mg 01/24/24 hydrochlorothiazide 25 mg tablet mg 01/24/24 insulin NPH isoph U-100 human 100 22 unit subcut BID 01/24/24 01/24/24 unit/mL (3 mL) subcutaneous pen (Humulin N NPH U-100 Insulin KwikPen) lisinopril 10 mg tablet mg 01/24/24 naproxen 500 mg tablet mg 01/24/24 omeprazole 40 mg capsule,delayed mg 01/24/24 release pregabalin 75 mg capsule mg 01/24/24 semaglutide 0.25 mg or 0.5 mg (2 mg subcut 01/24/24 mg/3 mL) subcutaneous pen injector (Ozempic) simvastatin 40 mg tablet mg 01/24/24 Allergies Allergy/AdvReac Type Severity Reaction Status Date / Time acetaminophen Allergy Unknown Verified 01/24/24 18:52 [From Darvocet-N] Penicillins Allergy Unknown Verified 01/24/24 18:52 propoxyphene Allergy Unknown Verified 01/24/24 18:52 [From Darvocet-N] Review of Systems ROS Status of ROS 10 or more systems reviewed and unremark able except as noted in history and below Exam Constitutional Vital Signs, click to edit/add: Last Vital Signs Temp 97.8 F 01/24/24 21:50 Pulse 108 H 01/24/24 23:24 Resp 24 H 01/24/24 23:24 BP 141/80 01/24/24 21:50 Pulse Ox 97 01/24/24 22:45 O2 Del Method Room Air 01/24/24 22:45 Common normals: no apparent distress, average body habitus, oriented x3, no limitations, healthy appearing, alert and well nourished [facility] Common normals: normocephalic and head/scalp atraumatic Eye Common normals: EOMs intact bilaterally and conjunctivae normal Respiratory Common normals: normal respiratory effort, no retractions, no use of accessory muscles and clear to auscultation bilaterally Cardio Common normals: regular rate, regular rhythm, S1 normal heart sound and S2 normal heart sound GI Common normals: Normal to inspection, nondistended, normoactive bowel sounds present, soft to palpation and non-tender Extremity Common normals: normal to inspection and full ROM Neuro Common normals: oriented x3, CN's II-XII intact bilaterally, moves all extremities and no focal motor deficits Psych Appearance: grossly normal Course Vital Signs Vital signs: Vital Signs Temperature 97.6 F 01/24/24 18:44 Pulse Rate 73 01/24/24 18:44 Respiratory Rate 18 01/24/24 18:44 Blood Pressure 137/78 01/24/24 18:44 Pulse Oximetry 97 01/24/24 18:44 Oxygen Delivery Method Room Air 01/24/24 18:44 Temperature 97.8 F 01/24/24 21:50 Pulse Rate 108 H 01/24/24 23:24 Respiratory Rate 24 H 01/24/24 23:24 Blood Pressure 141/80 01/24/24 21:50 Pulse Oximetry 97 01/24/24 22:45 Oxygen Delivery Method Room Air 01/24/24 22:45 MDM - URI/Sore Throat MDM Narrative Medical decision making narrative: patient daily smoker who presents with productive cough and shortness of breath. No fever or resp distress. CT chest without PE but findings including possible bilat pneumonitis she had been treated 2 weeks ago with zithromax and it help. Will plan course of antibiotics along with an inhaler and have her follow up with her doctor for recheck Lab Data Labs: Lab Results 01/24/24 Range/Units 22:19 WBC 6.3 (4.0-11.0) 10^3/uL RBC 4.41 (4.20-5.40) 10^6/uL Hgb 12.5 (12.0-16.0) g/dL Hct 39.9 (36.0-48.0) % MCV 90.5 (81.0-99.0) fL MCH 28.3 (26.7-34.0) pg MCHC 31.3 (29.9-35.2) g/dL RDW 16.5 H (11.0-15.0) % Plt Count 187 (150-450) 10^3/uL MPV 11.2 (9.5-13.5) fL Neut % (Auto) 47.0 (43.0-75.0) % Lymph % (Auto) 41.2 (20.5-60.0) % [place] % (Auto) 8.8 (1.7-12.0) % Eos % (Auto) 2.1 (0.9-7.0) % Baso % (Auto) 0.6 (0.2-2.0) % Neut # (Auto) 3.0 (1.4-6.5) 10^3/uL Lymph # (Auto) 2.6 (1.2-3.8) 10^3/uL [place] # (Auto) 0.6 (0.3-0.8) 10^3/uL Eos # (Auto) 0.1 (0.0-0.7) 10^3/uL Baso # (Auto) 0.0 (0.0-0.1) 10^3/uL Abs Immat Gran (auto) 0.02 (0.00-0.03) 10^3/uL Imm/Tot Granulo (auto) 0.3 (0.0-0.5) % D-Dimer 2.13 H* (<=0.59) mg/L FEU Sodium 140 (136-145) mmol/L Potassium 3.7 (3.5-5.1) mmol/L Chloride 104 (98-107) mmol/L Carbon Dioxide 27.7 (21.0-32.0) mmol/L Anion Gap 12.0 BUN 24.0 H (7.0-18.0) mg/dL Creatinine 1.79 H (0.55-1.02) mg/dL Est GFR ( Amer) 34 L (>=60) Est GFR (Non-Af Amer) 28 L (>=60) BUN/Creatinine Ratio 13.4 Glucose 109 H (74-106) mg/dL Calcium 8.7 (8.5-10.1) mg/dL Troponin I High Sens 43.9 (4.0-51.3) pg/mL Imaging Data Chest x-ray: Radiologist's impression: ITS Impressions Chest X-Ray 01/24/24 22:01 IMPRESSION: Mild nonspecific asymmetric opacity at the right lung base, suboptimally evaluated on the single frontal view provided. This may be due to patient rotation or mild infiltrate. The lungs are otherwise clear. Electronically authenticated by: AG PRUITT Date: 01/24/2024 22:56 Chest CTA 01/24/24 23:03 IMPRESSION: 1. No acute pulmonary embolism or aortic dissection. 2. Mild patchy ground-glass opacities in both lungs, nonspecific. These are nonspecific and can be seen in numerous disease processes, including, but not limited to hypoventilation interspersed with air trapping, hypersensitivity pneumonitis, infectious pneumonitis, respiratory bronchiolitis, nonspecific interstitial pneumonia, drug toxicity, pulmonary edema and ARDS. No other potential acute findings are seen in the chest. 3. Nonspecific hypodense thyroid lobe lesions. Elective thyroid ultrasound could further evaluate. Electronically authenticated by: AG PRUITT Date: 01/25/2024 00:55 Discharge Plan Discharge Stand Alone Forms: Portal Instructions Chief Complaint: Upper Respiratory Infection Clinical Impression: Bilateral pneumonia Patient Disposition: Home, Self-Care Prescriptions / Home Meds: No Action omeprazole 40 mg capsule,delayed release(DR/EC) simvastatin 40 mg tablet lisinopril 10 mg tablet buspirone 7.5 mg tablet hydrochlorothiazide 25 mg tablet furosemide 20 mg tablet fluoxetine 20 mg capsule naproxen 500 mg tablet pregabalin 75 mg capsule Jardiance 25 mg tablet Ozempic 0.25 mg or 0.5 mg (2 mg/3 mL) pen injector SUBCUT Humulin N NPH Insulin KwikPen 100 unit/mL (3 mL) insulin pen 22 unit subcut BID Print Language: Qatari Instructions: Community Acquired Pneumonia (ED) Additional Instructions: follow up with your doctor next week for recheck Referrals: JOSUÉ DAVIS [Primary Care Provider] - 1 week
--- NOTE | 2024-01-24 22:01 | ECG_ITS ---
The [facility] Test Date: 2024-01-24 Pat Name: IDRIS GRIFFIN Department: Room: - Gender: Female General Lot Attendant: : 1955 Requested By: JOSUÉ DAVIS Order Number: [id number] Reading MD: GEOVANY SALMON Measurements Intervals Globe Rate: 64 P: -30 VT: 154 QRS: -27 QRSD: 142 T: 13 QT: 464 QTc: 473 Interpretive Statements 1100 Sinus rhythm 2450 Right bundle branch block Low voltage across the precordium 9150 abnormal ECG Compared to ECG 09/08/2018 14:52:12 Myocardial infarct finding now present Electronically Signed On 01-25-2024 7:43:34 EDT by GEOVANY SALMON
--- NOTE | 2024-01-24 22:01 | XR_ITS ---
The [address] [address] Patient Name: IDRIS GRIFFIN MRN: [id number] date: 1955 Sex: F Assigned Patient Location: ER Current Patient Location: ER Accession/Order Number: [id number] Exam Date: 01/24/2024 22:10 Report Date: 01/24/2024 22:56 At the request of: CIRA BOND Procedure: XR chest 1V EXAM: XR chest 1V HISTORY: cough . Dyspnea. History of recent pneumonia. COMPARISON: Chest x-ray, 09/08/2018. TECHNIQUE: AP upright portable chest x-ray. FINDINGS: The heart, mediastinum and pulmonary vascularity are within normal limits. Mild asymmetric opacity at the right lung base is likely due to current mild patient rotation to the left. Underlying mild infiltrate cannot be excluded on the single frontal view provided. The lungs and pleural spaces are otherwise clear. The bony thorax is intact. XR/XR chest 1V IMPRESSION: Mild nonspecific asymmetric opacity at the right lung base, suboptimally evaluated on the single frontal view provided. This may be due to patient rotation or mild infiltrate. The lungs are otherwise clear. Electronically authenticated by: AG PRUITT Date: 01/24/2024 22:56
[2024-01-24 22:45] VITALS: PULSE 65; O2SAT 97
[2024-01-24] MEDS: IPRATROPIUM/ALBUTEROL SULFATE 3 ML AMPUL.NEB IH (22:45)
[2024-01-24 22:47] LABS: Basophils Percent Auto 0.6 % (0.2-2.0); Eosinophils Absolute Auto 0.1 10^3/uL (0.0-0.7); Eosinophils Percent Auto 2.1 % (0.9-7.0); Hematocrit 39.9 % (36.0-48.0); Hemoglobin 12.5 g/dL (12.0-16.0); Immature Granulocytes Abs Auto 0.02 10^3/uL (0.00-0.03); Immature Granulocytes Pct Auto 0.3 % (0.0-0.5); Lymphocytes Absolute Auto 2.6 10^3/uL (1.2-3.8); Lymphocytes Percent Auto 41.2 % (20.5-60.0); Mean Corpuscular HGB Conc 31.3 g/dL (29.9-35.2); Mean Corpuscular Hemoglobin 28.3 pg (26.7-34.0); Mean Corpuscular Volume 90.5 fL (81.0-99.0); Mean Platelet Volume 11.2 fL (9.5-13.5); Monocytes Absolute Auto 0.6 10^3/uL (0.3-0.8); Monocytes Percent Auto 8.8 % (1.7-12.0); Platelet Count 187 10^3/uL (150-450); Red Blood Count 4.41 10^6/uL (4.20-5.40); Red Cell Distribution Width 16.5 % (11.0-15.0); White Blood Count 6.3 10^3/uL (4.0-11.0)
[2024-01-24 23:03] LABS: D Dimer 2.13 mg/L FEU (<=0.59)
--- NOTE | 2024-01-24 23:03 | CT_ITS ---
The [address] [address] Patient Name: IDRIS GRIFFIN MRN: [id number] date: 1955 Sex: F Assigned Patient Location: ER Current Patient Location: Accession/Order Number: [id number] Exam Date: 01/24/2024 23:30 Report Date: 01/25/2024 00:55 At the request of: CIRA BOND Procedure: CT angio chest EXAM: CT angio chest HISTORY: elevated d-dimer COMPARISON: Chest x-ray, 01/16/2024. TECHNIQUE: IV contrast enhanced CTA imaging the chest was performed with 100 mL of Visipaque 270 intravenous contrast. MIP and MPR images are provided with 3-D reconstructions. Dose reduction techniques were achieved by using automated exposure control and/or adjustment of mA and/or kV according to patient size and/or use of iterative reconstruction technique. FINDINGS: There is good enhancement of the pulmonary arteries. There is no acute pulmonary embolism. The heart is mildly enlarged. There is no coronary arterial calcification or pericardial effusion. Pulsation artifact degrades ascending aorta. Minimal atherosclerotic calcifications are noted. The thoracic aorta and arch vessels are otherwise unremarkable. There is no dissection or aneurysm. Nonspecific hypodense thyroid lobe lesions measure up to 1.3 cm on the left on image 7, suboptimally evaluated due to streak artifact related to body habitus. The esophagus appears unremarkable. No thoracic adenopathy is seen. Nonspecific patchy ground-glass opacities are seen in both lungs. A nonspecific somewhat nodular opacity in the lateral left upper lobe measuring 8 mm on image 42 of series 4. No consolidation, pleural effusion or pneumothorax is seen. There is a 1.8 cm splenic cyst. The upper abdomen is otherwise unremarkable. No acute osseous abnormality or suspicious bony lesion is seen. CT/CT angio chest IMPRESSION: 1. No acute pulmonary embolism or aortic dissection. 2. Mild patchy ground-glass opacities in both lungs, nonspecific. These are nonspecific and can be seen in numerous disease processes, including, but not limited to hypoventilation interspersed with air trapping, hypersensitivity pneumonitis, infectious pneumonitis, respiratory bronchiolitis, nonspecific interstitial pneumonia, drug toxicity, pulmonary edema and ARDS. No other potential acute findings are seen in the chest. 3. Nonspecific hypodense thyroid lobe lesions. Elective thyroid ultrasound could further evaluate. Electronically authenticated by: AG PRUITT Date: 01/25/2024 00:55
[2024-01-24 23:05] LABS: BUN Creatinine Ratio 13.4; Calcium 8.7 mg/dL (8.5-10.1); Carbon Dioxide 27.7 mmol/L (21.0-32.0); Chloride 104 mmol/L (98-107); Estimated GFR (African America 34 (>=60); Estimated GFR (Non-African Ame 28 (>=60); Glucose 109 mg/dL (74-106); Potassium 3.7 mmol/L (3.5-5.1); Sodium 140 mmol/L (136-145); Troponin I High Sensitivity 43.9 pg/mL (4.0-51.3)
[2024-01-24 23:24] VITALS: PULSE 108
[2024-01-25] MEDS: METHYLPREDNISOLONE SOD SUCC PF 125 MG/2 ML VIAL IVP (01:29)
[2024-01-25] MEDS: AZITHROMYCIN 250 MG TABLET 500 MG PO (02:18)
[2024-01-25 02:30] VITALS: BP 127/85; PULSE 72; O2SAT 95
== END 2024-01-25 02:43 | disposition home or self-care (01) ==
PROVIDERS: Emergency Provider Internal Medicine; PCP Nurse Practitioner Family
DX: J18.9 Pneumonia, unspecified organism (principal); F17.200 Nicotine dependence, unspecified, uncomplicated
CPT/HCPCS: 36415; 71045; 71275; 80048; 84484; 85025; 85378; 93005; 94640; 96374; 99285; J2919; Q9966

== ENCOUNTER 2024-01-29 08:06 | Emergency (ER) | payer MEDICARE, SELFPAY ==
[2024-01-29 08:11] VITALS: BP 135/80; PULSE 67; TEMP 36.6; O2SAT 97; BMI 37.1
--- OUTSIDE RECORDS SUMMARY | 2024-01-29 08:18 | XMS_ITS ---
Patient Summarization (C-CDA 2.1 CCD) Created on: January 29, 2024 VIRGEN COOK : 1955 Sex: Female Author Organization Sample organization Care Team Providers Care Cooler Room Worker Name Role Phone AGGIE FU Primary Care Physician AGGIE DAVIS Attending Unavailable SUSAN, AGGIE Primary Care Unavailable SUSAN, AGGIE Admitting Unavailable SHABBIREBBAKARI, DR BECKY Morelos Consulting Unavailable SUSAN, AGGIE Consulting Unavailable SUSAN, AGGIE Attending Unavailable SUSAN, AGGIE Primary Care Unavailable SUSAN, AGGIE Admitting Unavailable RAGHAV, DR BECKY Morelos Consulting Unavailable SUSAN, AGGIE Consulting Unavailable SUSAN, AGGIE Attending Unavailable SUSAN, AGGIE Primary Care Unavailable NOAHER, DR BECKY Morelos Consulting Unavailable SUSAN, AGGIE Admitting Unavailable SUSAN, AGGIE Consulting Unavailable SUSAN, AGGIE Consulting Unavailable SUSAN, AGGIE Admitting Unavailable SUSAN, AGGIE Primary Care Unavailable SUSAN, AGGIE Attending Unavailable SUSAN, AGGIE Consulting Unavailable SUSAN, AGGIE Attending Unavailable SUSAN, AGGIE Admitting Unavailable SUSAN, AGGIE Primary Care Unavailable SUSAN, AGGIE Primary Care Unavailable PHYLLIS WALLS Attending Unavailable PHYLLIS WALLS Admitting Unavailable KAVITA .VICTORIA Consulting Unavailable MORIAH MORRISON Consulting Unavailable SUSAN, [...] CRICKET Cavanaugh, DR GARCIA Attending Unavailable CRICKET Cavanaugh, DR GARCIA Admitting Unavailable AGGIE DAVIS Primary Care Physician Unallocated, [place] Provider Primary Care Provider AVIVA Davis Primary Care Provider DO Brice Oliva Attending Provider [phone] Sherwin Baker Admitting Unavailable Sherwin Baker Attending Unavailable Aggie Davis Primary Care Unavailable Brown, Brice A Admitting Unavailable Brown, Brice A Attending Unavailable Aggie Davis Primary Care Unavailable Brown, Brice A Referring [...] Drug Allergy itching , sick to stomach [facility] (3 sources) Acetaminophen / oxyCODONE; Translations: [acetaminophen-ox ycodone] Drug Allergy sleeps a long time [facility] (3 sources) acetaminophen / propoxyphene; Translations: [acetaminophen-pr opoxyphene] Drug Allergy Itching [facility] (6 sources) Codeine; Translations: [codeine] Drug Allergy 1 Rash [facility] (6 sources) Penicillins; Translations: [penicillins] Drug allergy 4 Difficulty breathing at rest, Hives [facility] (6 sources) Propoxyphene; Translations: [propoxyphene] Drug Allergy 7 Itching, Unknown [facility] (1 source) Propoxyphene Drug Allergy 4 [facility] (1 source) ZOLMitriptan Drug Allergy 4 [facility] (1 source) Darvocet-N 100 Drug allergy (disorder) 4 [facility] (2 sources) Acetaminophen / HYDROcodone Drug Allergy 5 Unknown [facility] (2 sources) Acetaminophen / oxyCODONE Drug Allergy 1 [facility] (3 sources) HYDROcodone Drug Allergy 1 Unknown [facility] (2 sources) traMADol Drug Allergy 1 [facility] (2 sources) Acetaminophen; Translations: [acetaminophen] Drug Allergy 3 Itching [facility] (2 sources) oxyCODONE; Translations: [oxycodone] Drug Allergy 3 Drowsy [facility] (2 sources) Penicillin; Translations: [penicillin G] Drug Allergy 3 welts [facility] (2 sources) ZOLMitriptan; Translations: [zolmitriptan] Drug Allergy 3 felt like I was on [facility] (1 source) Codeine Drug Allergy 3 [facility] (1 source) HYDROcodone Drug Allergy 3 [facility] (1 source) Propoxyphene Drug Allergy 3 [facility] Encounters Encounter Date Encounter Type Care Provider Facility Start: 12-31-2023 End: 12-31-2023 ambulatory BRICE OLIVA Not Available Start: 11-11-2023 ambulatory Brice Oliva Facility: [facility] Start: 10-29-2023 End: 10-29-2023 ambulatory BRICE OLIVA [...] Start: 08-22-2023 End: 08-22-2023 ambulatory Brice Oliva Facility:[facility] Start: 08-22-2023 End: 08-22-2023 ambulatory CUE SELECTOR-C Aggie Davis Work Phone: [facility] Work Phone: Start: 08-22-2023 End: 08-22-2023 Discharged Recurring CUE SELECTOR-C Aggie Davis Work Phone: [facility]-Prototype Engineer Manager [address] Start: 08-06-2023 End: 08-06-2023 ambulatory BRICE OLIVA Not Available Start: 07-23-2023 End: 07-23-2023 ambulatory BRICE OLIVA Not Available Start: 07-16-2023 End: 07-16-2023 ambulatory BRICE OLIVA Not Available Start: 06-18-2023 End: 06-18-2023 ambulatory BRICE OLIVA Not Available Start: 06-07-2023 End: 06-07-2023 ambulatory Brice Oliva Facility:[facility] Start: 06-07-2023 End: 06-07-2023 Admission to same day surgery center Brice Oliva [facility] Start: 04-12-2023 End: 04-12-2023 Emergency department patient visit Sherwin Baker Facility:[facility] Start: 12-26-2022 ambulatory AGGIE DAVIS Facility: [facility] Start: 12-20-2022 End: 12-21-2022 ambulatory AGGIE DAVIS Facility:[facility] Start: 12-15-2022 End: 12-16-2022 ambulatory AGGIEALICIA DAVIS Facility:[facility] Start: 12-01-2022 End: 12-02-2022 ambulatory AGGIE DAVIS Facility:[facility] Start: 12-01-2022 End: 12-01-2022 ambulatory AGGIEALICIA DAVIS Facility:[facility] Start: 08-06-2022 End: 08-06-2022 ambulatory AGGIE DAVIS Facility:[facility] Start: 07-02-2022 End: 07-03-2022 ambulatory AGGIE DAVIS Facility:[facility] Start: 05-26-2022 End: 05-27-2022 ambulatory AGGIE DAVIS Facility:[facility] Start: 04-05-2022 End: 04-06-2022 ambulatory AGGIE DAVIS Facility:[facility] Start: 03-25-2022 ambulatory AGGIE DAVIS Facility: [facility] Start: 03-15-2022 End: 03-16-2022 ambulatory AGGIE DAVIS Facility:[facility] Start: 02-14-2022 End: 02-15-2022 ambulatory AGGIE DAVIS Facility:[facility] Start: 11-09-2021 End: 11-09-2021 Patient encounter procedure Michele Jane [facility] Medical Equipment Procedure Code Equipment Code Equipment Origin al Text Equipment Identifier Dates USE 1 ONCE DAILY DIRECTED [id number] Start: 04-05-2023 TEST BLOOD SUGAR THREE TIMES DAILY for 90 [id number] Blood Sugar Diagnostic (Onetouch Ultra Test) strip Start: 10-02-2017 End: 01-06-2020 Immunizations Immunization Date Immunization Notes Care Provider Epifanio bhatia 11-14-2020 SARS-CoV-2 (COVID-19 ) mRNA-3033 vaccine Michele Jane [facility] 04-18-2018 tetanus toxoid, redu soledad diphtheria toxoid, and acellular pertussis vaccine, adsorbed CUE SELECTOR-C Aggie Davis Work Phone: [facility] Medications Current Medications Medication Drug Class(es) Dates [...] oral tablet (2 sources) Quinolone Antimicrobial Start: 07-10-2023 take 1 tablet by mouth every twelve [...] Pr opionate (Flonase Allergy Relief) 50 mcg/actuation [place],Suspension Active 1 SPRAY INTRANASAL As Directed February [...] g56.02, # 30 tab(s), Refills(s) 0, Pharmacy: [facility] #[id number], 152.4, cm, 06/07/23 6:59:00 EST, Height/Length Dosing [...] day(s), # 50 tab(s), Refills(s) 0, Pharmacy: [facility] #[id number], 152.4, cm, 06/07/23 6:59:00 EST, Height/Length Dosing Start Date: 06/07/23 Stop Date: 07/27/23 Status: Ordered Completed/Discontinued Medications Medication Drug Class(es) Dates Sig (Normalized) Sig (Original) 2 ml hylan g-f 20 8 mg/ml prefilled syringe (2 sources) Start: 08-27-2023 End: 08-27-2023 hylan (Synvisc) injection 16 mg Payers Date Payer Category Payer Worker's Compensation [id number] 2023 Self-pay [id number] 2023 Unknown [id number] 2022 Medicare HUMANA MEDICARE ADVANTAGE HUMANA MEDICARE [id number] 2022-Present [address] [address] [place] [address] [id number]. [id number] 1959 Medicare [id number] 1959 Unknown [id number] 1955 Unknown [id number] 2.16.840.1.790223.3.579.2. 593 1954 Unknown [id number] 2.16.840.1.234543.3.579.2. 593 1954 Unknown [id number] 2.16.840.1.507614.3.579.2. 593 1954 Unknown [id number] 2.16.840.1.529323.3.579.2. 593 1954 Unknown [id number] 2.16.840.1.327199.3.579.2. 593 1954 Unknown [id number] 2.16.840.1.100663.3.579.2. 593 1954 Unknown [id number] 2.16.840.1.695221.3.579.2. 593 1954 Unknown [id number] 2.16.840.1.441034.3.579.2. 593 1954 Unknown [id number] 2.16.840.1.950367.3.579.2. 593 1954 Unknown [id number] 2.16.840.1.714702.3.579.2. 593 1954 Unknown [id number] 2.16.840.1.015888.3.579.2. 593 1954 Unknown [id number] 2.16.840.1.249847.3.579.2. 593 1954 Unknown [id number] 2.16.840.1.179366.3.579.2. 727 1954 Unknown [id number] 2.16.840.1.159222.3.579.2. 727 1954 Unknown [id number] 2.16.840.1.342586.3.579.2. 1259 1954 Unknown [id number] 2.16.840.1.201319.3.579.2. 125 1954 Unknown [id number] 2.16.840.1.141274.3.579.2. 125 1954 Unknown [id number] 2.16.840.1.122732.3.579.2. 125 1954 Unknown [id number] 2.16.840.1.492943.3.579.2. 1259 1954 Unknown [id number] 2.16.840.1.247058.3.579.2. 125 1954 Unknown [id number] 2.16.840.1.822136.3.579.2. 1259 1954 Unknown [id number] 2.16.840.1.423249.3.579.2. 125 1954 Unknown [id number] 2.16.840.1.213465.3.579.2. 125 1954 Unknown [id number] 2.16.840.1.852772.3.579.2. 125 1954 Unknown [id number] 2.16.840.1.537312.3.579.2. 1258 1954 Unknown [id number] 2.16.840.1.723566.3.579.2. 1258 1954 Unknown [id number] 2.16.840.1.613859.3.579.2. 1258 1954 Unknown [id number] 2.16.840.1.721997.3.579.2. 1258 1954 Unknown [id number] 2.16.840.1.834179.3.579.2. 1258 1954 Unknown [id number] 2.16.840.1.376916.3.579.2. 1258 1954 Unknown [id number] 2.16.840.1.995619.3.579.2. 1258 1954 Unknown [id number] 2.16.840.1.213163.3.579.2. 1258 1954 Unknown [id number] 2.16.840.1.840372.3.579.2. 1258 1954 Unknown [id number] 2.16.840.1.951131.3.579.2. 1258 1954 Unknown [id number] 2.16.840.1.555128.3.579.2. 1258 1954 Unknown [id number] 2.16.840.1.717618.3.579.2. 1259 Unknown Dionisio / [id number] Unknown [id number] 2.16.840.1.367378.3.579.2. 531 Unknown [id number] 2.16.840.1.352337.3.579.2. 531 Plan of Treatment Date Care Activity Detail Author Start: 06-01-2025 Pneumococcal Vaccine : 65+ Years (3 - PPSV23 or PCV20) Pneumococcal Vaccine: 65+ Years (3 - PPSV23 or PCV20) [facility] Start: 10-08-2023 End: 10-08-2023 Patient encounter procedure 10/08/2023 10:00 AM EDT Office Visit [facility] [address] [place] [id number] Brice Oliva DO [address] [place] [address] [facility] Start: 1994 Screening for malign ant neoplasm of breast Mammogram [facility] Start: 1955 Screening for malign ant neoplasm of colon [facility] Problems Active Problems Problem Classification Problem Date [...] above: pt states no damage done per dr. Deficiency and other anemia (1 source) Anemia, [...] right hip, initial encounter] Onset: 08-08-2022 Episodic Procedures Date Procedure Procedure Detail Performing Clinician Start: 08-27-2023 Arthrocentesis aspir &/inj major jt/bursa w/o us Phi DESIR Work Phone: Start: 06-07-2023 Decompression of med pabltio nerve Brice Oliva Start: 09-30-2020 Arthroscopy of knee Ronen Jane Start: 05-09-2016 Right little finger release A-1 linda Michele Jane Cholecystectomy Michele Jane History of tonsillectomy Ronen karon Jane Hysterectomy Michele Jane needle removed right foot Emilee Saucedoy Operation on toenail Michele perez Release of trigger finger Emilee Saucedoy right carpel tunnel Michele dill right knee arthroscopy x2 Emilee reynaldo Jane Results Test Name Value Interpretation Reference Range Facility Nonvisit Note - PTon 024 Nonvisit Note - PT Pt cancelled reassessment due to being sick. [facility] Nonvisit Note - PTon 024 Nonvisit Note - PT Pt no showed for 171 5 appointment. [facility] Nonvisit Note - PTon 024 Nonvisit Note - PT Pt called to cancel as she is ill. [facility] Consent for Treatmenton 10-28 Consent for Treatment [id number]#1 .00TI[address] [facility] PT - Assessmentson PT - Assessments [id number]#1 .00TI[address] [facility] PT - Consentson 11-19-2023 PT - Consents [id number]#1 [address] [facility] Insurance Correspondenceon 0 11-12-2023 Insurance Correspondence [id number]# 1.00TIFF [facility] PT - Orderson 11-11-2023 PT - Orders [id number]# 1.00TIFF [facility] L Inj/Asp: L kneeon 08-27-19 24 BEN Delong T 09/02/2023 8:37 AM L Inj/Asp: L knee on 08/27/2023 3:43 PM Indications: pain Details: 21 G needle, lateral approach Medications: 16 mg hylan 16 MG/2ML Consent was given by the patient. [facility] IntraOperative Documentson 08-11-2022 IntraOperative Documents [id number]#1 .00TIFF [facility] Discharge Instructionson Discharge Instructions [id number] #1.00TIFF [facility] IntraOperative Documentson 1 08-10-2022 IntraOperative Documents [id number] #1.00TIFF [facility] Main OR Intraoperative Recor don 06-10-2023 Main OR Intraoperative Record IntraOp Document Type FT Summary Primary Physician: Brice Oliva DO Finalized Date/Time: 06/10/23 12:15:18 Pt. Name: VIRGEN GONZALES/Sex: 1955 Female Med Rec #: [id number] Physician: Brice Oliva DO Financial #: [id number] Pt. Type: A Room/Bed: [place] [address] Admit/Disch: 06/07/23 06:35:30 - 06/07/23 08:20:00 Institution: Case Times FT Entry 1 Patient Times In Room 06/07/23 07:28:00 Out Room 06/07/23 08:20:00 Procedure Times Start 06/07/23 07:46:00 Stop 06/07/23 08:16:00 Anesthesia Times Last Modified By: Ana YANG, Merry Garsia 06/07/23 08:20:03 General Comments: 06/10/23 Chart opened to review and send charges [facility] Case Attendance FT Entry 1 Entry 2 Entry 3 Case Attendee Brice Oliva DO, CST, Merry Melo RN Role Performed Surgeon - Primary Scrub - Primary Behavioral Health Worker - Primary Time In 06/07/23 07:28:00 06/07/23 07:28:00 06/07/23 07:28:00 Time Out 06/07/23 08:20:00 06/07/23 08:20:00 06/07/23 08:20:00 Procedure CARPAL TUNNEL CARPAL TUNNEL CARPAL TUNNEL RELEASE(Left), FINGER RELEASE(Left), FINGER RELEASE(Left), FINGER TRIGGER RELEASE(Left) TRIGGER RELEASE(Left) TRIGGER RELEASE(Left) Comments Last Modified By: Merry Perez RN, RN, Merry Monte RN 06/07/23 08:20:05 06/07/23 08:20:05 06/07/23 08:20:05 Perioperative [...] No Time Out Brice Oliva DO, Given Participants Dima TORRES, Ana Morales RN, Kimberly Y Time Out [...] and tissue Entry 1 Skin Integrity Intact, [place], Warm, and Skin Abnormality No Dry Outcomes [...] Feet Uncro (more content not included)... [facility] Preoperative Documentson Preoperative Documents [id number] #1.00TIFF [facility] Consent for Procedure/Surger yon 06-07-2023 Consent for Procedure/Surgery [id number]# 1.00TIFF [facility] Consent for Treatmenton 05-29 Consent for Treatment [id number]#[address] [facility] Discharge Instructionson Discharge Instructions VASILIYLitzyARLETTEBEN RAMIREZLEY Ramiro :1955 Visit Date:06/07/2023 Inpatient Discharge Instructions Your [...] Doctor Event Name Event Result Pharmacy Information [facility] , Eliezer Salazar New Follow Up Appointments after Discharge Follow Up with Brice Oliva DO, ORT When: Comments: , 2 pm Appointment has already been scheduled Where: [address] [place] [address]- Medications What How Much When Instructions Next Dose New ascorbic acid (Vitamin C 500 mg oral tablet, chewable) 1 Tablets Chewed Every day Duration: 50 Days Pickup at [facility] #77379 New tramadol (traMADOL 50 mg Tab) 1 Tablets By Mouth Every 4 hours as needed for for pain g56.02 Pickup at [facility] #04148 Changed naproxen (naproxen 500 mg Tab) 1 Tablets By Mouth 2 times a day with food Changed naproxen (naproxen 500 mg Tab) 1 Tablets By Mouth 2 times a day as needed for Pain with food Pickup at [facility] #03053 Unchanged alendronate (alendronate 70 mg oral tablet) [...] times a day Pharmacy Information [id number]: [address] [place], [place] [phone] What How Much When Comments Stop Taking [...] Osteoporosis Pharyngitis (more content not included)... [facility] Comment on above: Result Comment: Elec tronically Signed By: Mercy Antonio LPN\.br\Date and Time Signed: 06/07/23 08:32 EST Discharge Instructions VIRGEN GONZALES :1955 Visit [...] Doctor Event Name Event Result [facility] , Eliezer [facility] Discharge Instructions Discharge Instructions New Follow Up Appointments after Discharge Follow Up with Brice Oliva DO, ORT When: Comments: , 2 pm Appointment has already been scheduled [place] [address]- Medications What How Much When Instructions Next Dose New ascorbic acid (Vitamin C 500 mg oral tablet, chewable) 1 Tablets Chewed Every day Duration: 50 Days Pickup at [facility] #26878 New tramadol (traMADOL 50 mg Tab) 1 Tablets By Mouth Every 4 hours as needed for for pain g56.02 Pickup at [facility] #69395 Changed naproxen (naproxen 500 mg Tab) 1 Tablets By Mouth 2 times a day as needed for Pain with food Pickup at [facility] #43222 Changed naproxen (naproxen 500 mg Tab) 1 [...] times a day Pharmacy Information [facility] #[id number]: [address] [place], [place] [id number] [phone] What How Much When Comments Stop Taking [...] - myocardial infarction Osteoporosis Pharyngitis Education Materials [place], [place] [facility] CARPAL TUNNEL RELEASE INSTRUCTIONS Post-Operative Week One Please do (more content not included)... [facility] Comment on above: Result Comment: Elec tronically Signed By: Lilo YANG, Gila Pedroza\.br\Date and Time Signed: 06/07/23 08:35 EST H&P Updateon 06-07-2023 H&P Update [id number]# 1.00TIFF [facility] Inpatient Patient Summaryon 06-07-2023 Inpatient Patient Summary [address] [address] [facility] Clinical Discharge Instructions PERSON INFORMATION Name: VIRGEN GONZALES PHYSICIANS Admitting Physician: Brice Oliva DO Attending Physician: Brice Oliva DO PCP: AGGIE DAVIS CNP Discharge Diagnosis: Comment: PATIENT EDUCATION INFORMATION Instructions: Conchita Oliva - Carpal Tunnel/Cubital Tunnel Release Instructions (Custom) Medication Leaflets: Follow up: MEDICATION LIST New Medications [id number], [address], [place] [phone], [phone] ascorbic acid (Vitamin C 500 mg oral tablet, chewable) 1 Tablets Chewed every day for 50 Days. Refills: 0. tramadol (traMADOL 50 mg Tab) 1 Tablets By Mouth every 4 hours as needed for pain. g56.02. Refills: 0. Medications to Continue Taking That Have Changed [id number], [address], [place] [phone], [phone] START: naproxen (naproxen 500 mg Tab) 1 [...] needed as needed for arthritis. Comment: Miguel[facility] Main OR PACU II [facility] Main OR PACU II Record PACU Phase II Document Type FT Summary Primary Physician: Brice Oliva DO Finalized Date/Time: 06/07/23 09:45:08 Pt. Name: VIRGEN GONZALES/Sex: 1955 Female Med Rec #: [id number] Physician: Brice Oliva DO Financial #: [id number] Pt. Type: A Room/Bed: [place] [address] Admit/Disch: 06/07/23 06:35:30 - Institution: Case Times [...] By: Mercy Antonio LPN 06/07/23 09:45 [facility] Main OR Preoperative Recordo n 06-07-2023 Main OR Preoperative Record Holding Area Document Type FT Summary Primary Physician: Brice Oliva DO Finalized Date/Time: 06/07/23 07:35:11 Pt. Name: VIRGEN GONZALES /Sex: 1955 Female Med Rec #: [id number] Physician: Brice Oliva DO Financial #: [id number] Pt. Type: A Room/Bed: [facility]/29 Admit/Disch: 06/07/23 06:35:30 - Institution: Case Times [...] 07:05 Mercy Antonio LPN 06/07/23 07:35 [facility] Main OR Preoperative Record PreOp Document Type FT Summary Primary Physician: Brice Oliva DO Finalized Date/Time: 06/07/23 07:47:43 Pt. Name: VIRGEN GONZALES /Sex: 1955 Female Med Rec #: [id number] Physician: Brice Oliva DO Financial #: [id number] Pt. Type: A Room/Bed: [place] [address] Admit/Disch: 06/07/23 06:35:30 - Institution: Case Times [...] Signed By: Merry Perez RN 06/07/23 07:[address] [facility] Operative Reporton 3 Operative Report Patient: VIRGEN GONZALES Age: 67 [...] Local OPERATIVE INDICATIONS: Virgen is a 67-year-old emoyt-secz-rjzyuuen female who has had persistent pain, numbness [...] and the median nerve. A curved meniscal [place] blade was slid on top of the [...] linda was identified and released with a [place] blade. There was thickening to the [employer] [...] linda. The linda was released with a [place] blade. There was thickening and nodularity to [...] clean and elective. Brice Oliva D.O. [facility] Comment on above: Result Comment: Elec tronically Signed By: Brice Oliva DO\.br\Date and Time Signed: 06/07/23 17:44 EST Outpatient Surgery Discharge Instructionon 06-07-2023 Outpatient Surgery Discharge Instruction [place] [address] Patient Discharge Instructions PERSON INFORMATION Name: VIRGEN [...] Clinican/Nurse Signature Date Follow up: Pharmacy Information: [facility]ccain , Eliezer Salazar You may receive a survey from [employer] asking you to rate your care experience. Your feedback is important and will help us understand what we do well and how we can improve the quality of care we provide to you, your loved ones and our community. It?s an honor to serve you. Thank you for choosing [facility] HERE ARE THE MEDICATION CHANGES THAT OCCURRED DURING YOUR HOSPITAL STAY New Medications [facility][id number], [address] [place], [place] [id number], [phone] ascorbic acid (Vitamin C 500 mg oral tablet, chewable) 1 Tablets Chewed every day for 50 Days. Refills: 0. tramadol (traMADOL 50 mg Tab) 1 Tablets By Mouth every 4 hours as needed for pain. g56.02. Refills: 0. Medications to Continue Taking That Have Changed [id number], [address] [place] [id number], [phone] START: naproxen (naproxen 500 mg Tab) 1 [...] needed for arthritis. PATIENT EDUCATION INFORMATION Instructions: [place], [place] [facility] CARPAL TUNNEL RELEASE INSTRUCTIONS [...] resume sports. (more content not included)... [facility] Patient Education - Texton 1 08-07-2022 Patient Education - Text [place], [place] [facility] CARPAL TUNNEL RELEASE INSTRUCTIONS [...] ?pins and needles? to resolve. Brice Oliva, [facility] [address] [place], [place] [id number] Reviewed: [address] [facility] [address] head/brain wo [facility] 04-12 CT head/brain wo [facility] Main [place] [address] [place] [address] CT Scan Report Signed Patient: Mike Gonzales MR# : [id number] : 1955 Acct:[id number] Age/Sex: 67 / F ADM Date: 04/12/23 Loc: ER Room: Type: [facility] ER Attending Dr: Copies to: [...] Castaneda Jr., D.OAfshan04/12/2023 10:15 AM Dictation Location: [place] [address] Transcribed By: [facility] 04/12/23 1015 Dictated By: Mikal Castaneda Jr, DO 04/12/23 1005 Signed By: 04/12/23 1015 [facility] ECG 12 lead ECGon 04-12-2023 ECG 12 lead ECG [facility] Main [place] [address] [place] [address] Electrocardiograph Report Signed Patient: Mike Gonzales MR# : [id number] : 1955 Acct:[id number] Age/Sex: 67 / F ADM Date: 04/12/23 Loc: ER Room: Type: [facility] ER Attending Dr: Ordering Provider: Sherwin Baker [...] was found Confirmed by SHERWIN BAKER DO ([id number]) on 04/12/2023 4:31:11 PM Referred By: Electronically Signed By:SHERWIN BAKER DO Transcribed By: MUS Signed By Sherwin Baker DO 04/12 [address] [facility] PROF 14(COMP METB)on 023 Albumin [Mass/Vol] 3.2 g/dL Critically low 3.4-5.0 [facility] Comment on above: Performed By: #### T SH, CMP, T7, LIPID #### [facility] [address] [address] [address] Danay De Los Santos Albumin/Globulin [Mass ratio] 1.0 {ratio} Normal [facility] Comment on above: Performed By: #### T SH, CMP, T7, LIPID #### [facility] [address] [place] [address] Dr. Danay De Los Santos ALP [Catalytic activity/Vol] 92 U/L Normal 46-116 [facility] Comment on above: Performed By: #### T SH, CMP, T7, LIPID #### [facility] [address] [address] [address] Danay De Los Santos ALT [Catalytic activity/Vol] 21 U/L Normal 14-59 [facility] Comment on above: Performed By: #### T SH, CMP, T7, LIPID #### [facility] [address] [place] [address] Dr. Danay De Los Santos Anion gap [Moles/Vol] 13.2 mmol/L Normal [facility] Comment on above: Performed By: #### T SH, CMP, T7, LIPID #### [facility] [address] [address] [address] Danay De Los Santos AST [Catalytic activity/Vol] 14 U/L Critically low 15-37 [facility] Comment on above: Performed By: #### T SH, CMP, T7, LIPID #### [facility] [address] [address] [address] Danay De Los Santos Bilirubin [Mass/Vol] 0.2 mg/dL Normal 0.2-1.0 [facility] Comment on above: Performed By: #### T SH, CMP, T7, LIPID #### [facility] [address] [address] [address] Danay De Los Santos Calcium [Mass/Vol] 8.6 mg/dL Normal 8.5-10.1 [facility] Comment on above: Performed By: #### T SH, CMP, T7, LIPID #### [facility] [address] [address] [address] Danay De Los Santos Chloride [Moles/Vol] 105 mmol/L Normal 98-107 [facility] Comment on above: Performed By: #### T SH, CMP, T7, LIPID #### [facility] [address] [address] [address] Danay De Los Santos CO2 [Moles/Vol] 27.9 mmol/L Normal 21.0-32.0 [facility] Comment on above: Performed By: #### T SH, CMP, T7, LIPID #### [facility] [address] [place] [address] Dr. Danay De Los Santos Creatinine [Mass/Vol] 1.47 mg/dL Critically high 0.55-1.02 [facility] Comment on above: Performed By: #### T SH, CMP, T7, LIPID #### [facility] [address] [place] [address] Dr. Danay De Los Santos EGFR-AF [place]UGUESE 43 mL/min/1.73m2 Critically low >=60 [facility] Comment on above: Performed By: #### T SH, CMP, T7, LIPID #### [facility] [address] [place] [address] Dr. Danay De Los Santos EGFR-NON AF [place] 35 mL/min/1.73m2 Critically low >=60 [facility] Comment on above: Performed By: #### T SH, CMP, T7, LIPID #### [facility] [address] [place] [address] Dr. Danay De Los Santos Globulin (S) [Mass/Vol] 3.3 g/dL Normal [facility] Comment on above: Performed By: #### T SH, CMP, T7, LIPID #### [facility] [address] [address] [address] Danay De Los Santos Glucose [Mass/Vol] 145 mg/dL Critically high 74-106 [facility] Comment on above: Performed By: #### T SH, CMP, T7, LIPID #### [facility] [address] [address] [address] Danay De Los Santos Potassium [Moles/Vol] 4.1 mmol/L Normal 3.5-5.1 [facility] Comment on above: Performed By: #### T SH, CMP, T7, LIPID #### [facility] [address] [address] [address] Danay De Los Santos Protein [Mass/Vol] 6.5 g/dL Normal 6.4-8.2 [facility] Comment on above: Performed By: #### T SH, CMP, T7, LIPID #### [facility] [address] [place] [address] Dr. Danay De Los Santos Sodium [Moles/Vol] 142 mmol/L Normal 136-145 [facility] Comment on above: Performed By: #### T SH, CMP, T7, LIPID #### [facility] [address] [address] [address] Danay De Los Santos Urea nitrogen [Mass/Vol] 22.0 mg/dL Critically high 7.0-18.0 [facility] Comment on above: Performed By: #### T SH, CMP, T7, LIPID #### [facility] [address] [address] [address] Danay De Los Santos Urea nitrogen/Creatinine [Mass ratio] 15.0 mg/mg Normal [facility] Comment on above: Performed By: #### T SH, CMP, T7, LIPID #### [facility] [address] [address] [address] Danay De Los Santos PROF CHEM 8 (BAS METB)on Anion gap [Moles/Vol] 12.1 mmol/L Normal [facility] Comment on above: Performed By: #### B MP #### [facility] [address] [place] [address] Dr. Danay De Los Santos Calcium [Mass/Vol] 8.8 mg/dL Normal 8.5-10.1 [facility] Comment on above: Performed By: #### B MP #### [facility] [address] [address] [address] Danay De Los Santos Chloride [Moles/Vol] 103 mmol/L Normal 98-107 [facility] Comment on above: Performed By: #### B MP #### [facility] [address] [address] [address] Danay De Los Santos CO2 [Moles/Vol] 28.6 mmol/L Normal 21.0-32.0 [facility] Comment on above: Performed By: #### B MP #### [facility] [address] [place] [address] Dr. Danay De Los Santos Creatinine [Mass/Vol] 2.08 mg/dL Critically high 0.55-1.02 [facility] Comment on above: Performed By: #### B MP #### [facility] [address] [address] [address] Danay De Los Santos EGFR-AF [place] 29 mL/min/1.73m2 Critically low >=60 [facility] Comment on above: Performed By: #### B MP #### [facility] [address] [place] [address] Dr. Danay De Los Santos EGFR-NON AF [place] 24 mL/min/1.73m2 Critically low >=60 [facility] Comment on above: Performed By: #### B MP #### [facility] [address] [address] [address] Danay De Los Santos Glucose [Mass/Vol] 259 mg/dL Critically high 74-106 [facility] Comment on above: Performed By: #### B MP #### [facility] [address] [address] [address] Danay De Los Santos Potassium [Moles/Vol] 4.7 mmol/L Normal 3.5-5.1 [facility] Comment on above: Performed By: #### B MP #### [facility] [address] [address] [address] Danay De Los Santos Sodium [Moles/Vol] 139 mmol/L Normal 136-145 [facility] Comment on above: Performed By: #### B MP #### [facility] [address] [place] [address] Dr. Danay De Los Santos Urea nitrogen [Mass/Vol] 27.0 mg/dL Critically high 7.0-18.0 [facility] Comment on above: Performed By: #### B MP #### [facility] [address] [place] [address] Dr. Danay De Los Santos Urea nitrogen/Creatinine [Mass ratio] 13.0 mg/mg Normal [facility] Comment on above: Performed By: #### B MP #### [facility] [address] [place] [address] Dr. Danay De Los Santos INSULINon 12-17-2022 Insulin 11.1 uIU/mL Normal 2.6-24.9 [facility] Comment on above: Performed By: #### I NSULIN #### [facility] [address] [place] [address] Dr. Danay De Los Santos BNPon 12-15-2022 Natriuretic peptide B (Bld) [Mass/Vol] 110.0 pg/mL Normal <=900.0 [facility] Comment on above: Performed By: #### T SH, CMP, T7, LIPID #### [facility] [address] [place] [address] Dr. Danay De Los Santos CBC AUTO DIFFon 12-15-2022 BASO # 0.1 103/ul Normal 0.0-0.1 [facility] Comment on above: Performed By: #### T SH, CMP, T7, LIPID #### [facility] [address] [place] [address] Dr. Danay De Los Santos Basophils/100 WBC (Bld) 0.5 % Normal 0.2-2.0 [facility] Comment on above: Performed By: #### T SH, CMP, T7, LIPID #### [facility] [address] [place] [address] Dr. Danay De Los Santos EO # 0.7 103/ul Normal 0.0-0.7 [facility] Comment on above: Performed By: #### T SH, CMP, T7, LIPID #### [facility] [address] [place] [address] Dr. Danay De Los Santos Eosinophils/100 WBC (Bld) 6.0 % Normal 0.9-7.0 [facility] Comment on above: Performed By: #### T SH, CMP, T7, LIPID #### [facility] [address] [place] [address] Dr. Danay De Los Santos Erythrocyte distribution width (RBC) [Ratio] 15.6 % Critically high 11.0-15.0 [facility] Comment on above: Performed By: #### T SH, CMP, T7, LIPID #### [facility] [address] [place] [address] Dr. Danay De Los Santos Hematocrit (Bld) [Volume fraction] 40.2 % Normal 36.0-48.0 [facility] Comment on above: Performed By: #### T SH, CMP, T7, LIPID #### [facility] [address] [place] [address] Dr. Danay De Los Santos Hemoglobin (Bld) [Mass/Vol] 12.6 g/dL Normal 12.0-16.0 [facility] Comment on above: Performed By: #### T SH, CMP, T7, LIPID #### [facility] [address] [place] [address] Dr. Danay De Los Santos IG # 0.06 10e3/ul Critically high 0.00-0.03 [facility] Comment on above: Performed By: #### T SH, CMP, T7, LIPID #### [facility] [address] [place] [address] Dr. Danay De Los Santos IG % 0.5 % Normal 0.0-0.5 [facility] Comment on above: Performed By: #### T SH, CMP, T7, LIPID #### [facility] [address] [place] [address] Dr. Danay De Los Santos LYMPH # 3.2 103/ul Normal 1.2-3.8 [facility] Comment on above: Performed By: #### T SH, CMP, T7, LIPID #### [facility] [address] [place] [address] Dr. Danay De Los Santos Lymphocytes/100 WBC (Bld) 28.9 % Normal 20.5-60.0 [facility] Comment on above: Performed By: #### T SH, CMP, T7, LIPID #### [facility] [address] [address] [address] Danay De Los Santos MANUAL DIFF REQ NO Normal [facility] Comment on above: Performed By: #### T SH, CMP, T7, LIPID #### [facility] [address] [address] [address] Danay De Los Santos MCH (RBC) [Entitic mass] 27.3 pg Normal 26.7-34.0 [facility] Comment on above: Performed By: #### T SH, CMP, T7, LIPID #### [facility] [address] [address] [address] Danay De Los Santos MCHC (RBC) [Mass/Vol] 31.3 g/dL Normal 29.9-35.2 [facility] Comment on above: Performed By: #### T SH, CMP, T7, LIPID #### [facility] [address] [address] [address] Danay De Los Santos MCV (RBC) [Entitic vol] 87.2 fL Normal 81.0-99.0 [facility] Comment on above: Performed By: #### T SH, CMP, T7, LIPID #### [facility] [address] [address] [address] Danay De Los Santos MONO # 0.6 103/ul Normal 0.3-0.8 [facility] Comment on above: Performed By: #### T SH, CMP, T7, LIPID #### [facility] [address] [address] [address] Danay De Los Santos Monocytes/100 WBC (Bld) 5.7 % Normal 1.7-12.0 [facility] Comment on above: Performed By: #### T SH, CMP, T7, LIPID #### [facility] [address] [address] [address] Danay De Los Santos NEUT # 6.4 103/ul Normal 1.4-6.5 [facility] Comment on above: Performed By: #### T SH, CMP, T7, LIPID #### [facility] [address] [address] [address] Danay De Los Santos Neutrophils/100 WBC (Bld) 58.4 % Normal 43.0-75.0 [facility] Comment on above: Performed By: #### T SH, CMP, T7, LIPID #### [facility] [address] [place] [address] Dr. Danay De Los Santos Platelet mean volume (Bld) [Entitic vol] 10.6 fL Normal 9.5-13.5 [facility] Comment on above: Performed By: #### T SH, CMP, T7, LIPID #### [facility] [address] [place] [address] Dr. aDnay De Los Santos PLT 251 103/ul Normal 150-450 [facility] Comment on above: Performed By: #### T SH, CMP, T7, LIPID #### [facility] [address] [place] [address] Dr. Danay De Los Santos RBC 4.61 106/ul Normal 4.20-5.40 [facility] Comment on above: Performed By: #### T SH, CMP, T7, LIPID #### [facility] [address] [place] [address] Dr. Danya De Los Santos WBC 10.9 103/ul Normal 4.0-11.0 [facility] Comment on above: Performed By: #### T SH, CMP, T7, LIPID #### [facility] [address] [place] [address] Dr. Danay De Los Santos FREE THYROXINE INDEX T7on FTI 2.87 Normal 1.30-4.50 [facility] Comment on above: Performed By: #### T SH, CMP, T7, LIPID #### [facility] [address] [place] [address] Dr. Danay De Los Santos T3U 35.0 % Normal 30.0-39.0 [facility] Comment on above: Performed By: #### T SH, CMP, T7, LIPID #### [facility] [address] [place], [place] [address] Dr. Danay De Los Santos T4 [Mass/Vol] 8.20 ug/dL Normal 4.80-13.90 [facility] Comment on above: Performed By: #### T SH, CMP, T7, LIPID #### [facility] [address] [place] [address] Dr. Danay De Los Santos GLYCOHEMOGLOBIN A1Con 2022 ADA RECOMMENDATION SEE BELOW Normal [facility] Comment on above: Result Comment: ADA RECOMMENDED LIMIT 4.0 - 6.0 ADA THERAPEUTIC TARGET < 7.0 ACTION SUGGESTED > 7.0 Performed By: #### A 1C #### [facility] [address] [address] [address] Danay De Los Santos Glucose [Mass/Vol] 203 mg/dL Normal [facility] Comment on above: Performed By: #### A 1C #### [facility] [address] [place] [address] Dr. Danay De Los Santos HbA1c (Bld) [Mass fraction] 8.7 % Critically high 4.5-6.2 [facility] Comment on above: Performed By: #### A 1C #### [facility] [address] [address] [address] Danay De Los Santos IRONon 12-15-2022 Iron [Mass/Vol] 39.0 ug/dL Critically low 50.0-170.0 [facility] Comment on above: Performed By: #### T SH, CMP, T7, LIPID #### [facility] [address] [place] [address] Dr. Danay De Los Santos LIPID PROFILEon 12-15-2022 CHOL-HDL RATIO NORM SEE BELOW Normal [facility] Comment on above: Result Comment: 3.3 - 4.4 LOW RISK 4.4 - 7.1 AVERAGE RISK 7.1 - 11.0 MODERATE RISK >11.0 HIGH RISK Performed By: #### T SH, CMP, T7, LIPID #### [facility] [address] [place] [address] Dr. Danay De Los Santos Cholesterol [Mass/Vol] 123 mg/dL Normal <=200 [facility] Comment on above: Performed By: #### T SH, CMP, T7, LIPID #### [facility] [address] [address] [address] Danay De Los Santos Cholesterol in HDL [Mass/Vol] 40 mg/dL Normal 40-60 [facility] Comment on above: Performed By: #### T SH, CMP, T7, LIPID #### [facility] [address] [address] [address] Danay De Los Santos Cholesterol in LDL [Mass/Vol] 70.4 mg/dL Normal [facility] Comment on above: Performed By: #### T SH, CMP, T7, LIPID #### [facility] [address] [address] [address] Danay De Los Santos Cholesterol.total/Cho lesterol in HDL [Mass ratio] 3.1 {ratio} Normal [facility] Comment on above: Performed By: #### T SH, CMP, T7, LIPID #### [facility] [address] [address] [address] Danay De Los Santos HDL NORMAL > or = 60 mg/dl - LO W CARDIOVASCULAR RISK <40 mg/dl - HIGH CARDIOVASCULAR RISK Normal [facility] Comment on above: Performed By: #### T SH, CMP, T7, LIPID #### [facility] [address] [address] [address] Danay De Los Santos LDL CALC NORMAL SEE BELOW Normal [facility] Comment on above: Result Comment: <100 mg/dl OPTIMAL 100 - 129 mg/dl NEAR OR ABOVE OPTIMAL 130 - 159 mg/dl BORDERLINE HIGH 160 - 189 mg/dl HIGH >190 mg/dl VERY HIGH Performed By: #### T SH, CMP, T7, LIPID #### [facility] [address] [address] [address] Danay De Los Santos Triglyceride [Mass/Vol] 63 mg/dL Normal <=150 [facility] Comment on above: Performed By: #### T SH, CMP, T7, LIPID #### [facility] [address] [address] [address] Danay De Los Santos VLDL CALC 12.6 mg/dL Normal [facility] Comment on above: Performed By: #### T SH, CMP, T7, LIPID #### [facility] [address] [place] [address] Dr. Danay De Los Santos PROF 14(COMP METB)on 023 Albumin [Mass/Vol] 3.3 g/dL Critically low 3.4-5.0 [facility] Comment on above: Performed By: #### T SH, CMP, T7, LIPID #### [facility] [address] [place] [address] Dr. Danay De Los Santos Albumin/Globulin [Mass ratio] 1.0 {ratio} Normal [facility] Comment on above: Performed By: #### T SH, CMP, T7, LIPID #### [facility] [address] [place] [address] Dr. Danay De Los Santos ALP [Catalytic activity/Vol] 94 U/L Normal 46-116 [facility] Comment on above: Performed By: #### T SH, CMP, T7, LIPID #### [facility] [address] [place] [address] Dr. Danay De Los Santos ALT [Catalytic activity/Vol] 17 U/L Normal 14-59 [facility] Comment on above: Performed By: #### T SH, CMP, T7, LIPID #### [facility] [address] [place] [address] Dr. Danay De Los Santos Anion gap [Moles/Vol] 14.3 mmol/L Normal [facility] Comment on above: Performed By: #### T SH, CMP, T7, LIPID #### [facility] [address] [place] [address] Dr. Danay De Los Santos AST [Catalytic activity/Vol] 11 U/L Critically low 15-37 [facility] Comment on above: Performed By: #### T SH, CMP, T7, LIPID #### [facility] [address] [place] [address] Dr. Danay De Los Santos Bilirubin [Mass/Vol] 0.3 mg/dL Normal 0.2-1.0 [facility] Comment on above: Performed By: #### T SH, CMP, T7, LIPID #### [facility] [address] [place] [address] Dr. Danay De Los Santos Calcium [Mass/Vol] 9.1 mg/dL Normal 8.5-10.1 [facility] Comment on above: Performed By: #### T SH, CMP, T7, LIPID #### [facility] [address] [address] [address] Danay De Los Santos Chloride [Moles/Vol] 105 mmol/L Normal 98-107 [facility] Comment on above: Performed By: #### T SH, CMP, T7, LIPID #### [facility] [address] [address] [address] Danay De Los Santos CO2 [Moles/Vol] 29.3 mmol/L Normal 21.0-32.0 [facility] Comment on above: Performed By: #### T SH, CMP, T7, LIPID #### [facility] [address] [place] [address] Dr. Danay De Los Santos Creatinine [Mass/Vol] 1.53 mg/dL Critically high 0.55-1.02 [facility] Comment on above: Performed By: #### T SH, CMP, T7, LIPID #### [facility] [address] [place] [address] Dr. Danay De Los Santos EGFR-AF [place] 41 mL/min/1.73m2 Critically low >=60 [facility] Comment on above: Performed By: #### T SH, CMP, T7, LIPID #### [facility] [address] [place] [address] Dr. Danay De Los Santos EGFR-NON AF [place] 34 mL/min/1.73m2 Critically low >=60 [facility] Comment on above: Performed By: #### T SH, CMP, T7, LIPID #### [facility] [address] [place] [address] Dr. Danay De Los Santos Globulin (S) [Mass/Vol] 3.4 g/dL Normal [facility] Comment on above: Performed By: #### T SH, CMP, T7, LIPID #### [facility] [address] [place] [address] Dr. Danay De Los Santos Glucose [Mass/Vol] 192 mg/dL Critically high 74-106 [facility] Comment on above: Performed By: #### T SH, CMP, T7, LIPID #### [facility] [address] [place] [address] Dr. Danay De Los Santos Potassium [Moles/Vol] 4.6 mmol/L Normal 3.5-5.1 [facility] Comment on above: Performed By: #### T SH, CMP, T7, LIPID #### [facility] [address] [place] [address] Dr. Danay De Los Santos Protein [Mass/Vol] 6.7 g/dL Normal 6.4-8.2 [facility] Comment on above: Performed By: #### T SH, CMP, T7, LIPID #### [facility] [address] [place] [address] Dr. Danay De Los Santos Sodium [Moles/Vol] 144 mmol/L Normal 136-145 [facility] Comment on above: Performed By: #### T SH, CMP, T7, LIPID #### [facility] [address] [place] [address] Dr. Danay De Los Santos Urea nitrogen [Mass/Vol] 25.0 mg/dL Critically high 7.0-18.0 [facility] Comment on above: Performed By: #### T SH, CMP, T7, LIPID #### [facility] [address] [place] [address] Dr. Danay De Los Santos Urea nitrogen/Creatinine [Mass ratio] 16.3 mg/mg Normal [facility] Comment on above: Performed By: #### T SH, CMP, T7, LIPID #### [facility] [address] [place] [address] Dr. Danay De Los Santos TSHon 12-15-2022 TSH 2.181 uIU/mL Normal 0.358-3.740 [facility] Comment on above: Performed By: #### T SH, CMP, T7, LIPID #### [facility] [address] [place] [address] Dr. Danay De Los Santos VITAMIN D 25 OHon 12-15-2022 VIT D 25-OH 32.9 ng/mL Normal [facility] Comment on above: Performed By: #### T SH, CMP, T7, LIPID #### [facility] [address] [place], [place] [address] Dr. Danay De Los Santos VIT D RANGES SEE BELOW Normal [facility] Comment on above: Result Comment: <20 ng/mL Vit D deficient 20 - <30 ng/mL Vit D insufficient 30 - 100 ng/mL Vit D sufficient >100 ng/mL Potential Toxicity Performed By: #### T SH, CMP, T7, LIPID #### [facility] [address] [place], [place] [address] Dr. Danay De Los Santos US ROEL [...] MORIAH MORRISON Date: 2022-12-01 12:54 Normal [facility] XR Hand Complete Left*on XR Hand Complete Left* CLINICAL HISTORY: Fall with left hand stiffness. COMPARISON: None. RESULT: No distinct acute fracture. No dislocation. Underlying decreased bone mineral density. Mild to moderate scattered degenerative changes. Soft tissue edema. IMPRESSION: No acute osseous findings radiographically. Report reported and signed by Home Lockwood on 08/24/2022 1108 Normal [facility] [employer] XR Spine Cervical Complete*o n 08-24-2022 XR [...] by Home Lockwood on 08/24/2022 1109 Normal [facility] [employer] XR HAND RIMA MIN 3Von 023 XR HAND RIMA MIN 3V EXAM: XR HAND RIMA MN N 3V HISTORY: Pain following fall COMPARISON: None. TECHNIQUE: 3 views of each hand FINDINGS: No visualized fracture, dislocation, subluxation or osseous lesion. Age-related joint space changes. No gross visualized soft tissue edema. IMPRESSION: No visualized abnormality Electronically authenticated by: BRIANNA KU Date: 2022-08-06 20:28 Normal [facility] XR HIP RT 2 3V W PELVISon [...] by: BRIANNA KU Date: 2022-08-06 20:29 Normal [facility] XR SHOULDER RT 2V or [...] by: BRIANNA KU Date: 2022-08-06 20:21 Normal [facility] XR Foot Complete Left*on XR Foot Complete Left* COMPARISON: None available HISTORY: Second and third digit pain after a fall TECHNIQUE: AP, lateral and oblique views of the foot obtained. FINDINGS: No acute fracture or dislocation. Joint spaces are preserved. Soft tissues are within normal limits. IMPRESSION: No acute osseous abnormality. Report reported and signed by Drew Looney on 08/04/2022 1044 Normal [facility] [employer] XR Knee Complete Left*on XR Knee Complete [...] by Drew Looney on 08/04/2022 1046 Normal [facility] [employer] MRI BRAIN WO CONon 2 MRI BRAIN [...] BRIANNA GREEN Date: 2022-07-02 14:48 Normal [facility] INSULINon 05-28-2022 Insulin 13.4 uIU/mL Normal 2.6-24.9 [facility] Comment on above: Performed By: #### I NSULIN #### [facility] [address] [address] [address] Danay De Los Santos CBC AUTO DIFFon 05-26-2022 BASO # 0.1 103/ul Normal 0.0-0.1 [facility] Comment on above: Performed By: #### C BC #### [facility] [address] [address] [address] Danay De Los Santos Basophils/100 WBC (Bld) 0.8 % Normal 0.2-2.0 [facility] Comment on above: Performed By: #### C BC #### [facility] [address] [address] [address] Danay De Los Santos EO # 0.6 103/ul Normal 0.0-0.7 [facility] Comment on above: Performed By: #### C BC #### [facility] [address] [place] [address] Dr. Danay De Los Santos Eosinophils/100 WBC (Bld) 5.1 % Normal 0.9-7.0 [facility] Comment on above: Performed By: #### C BC #### [facility] [address] [place] [address] Dr. Danay De Los Santos Erythrocyte distribution width (RBC) [Ratio] 14.7 % Normal 11.0-15.0 [facility] Comment on above: Performed By: #### C BC #### [facility] [address] [place] [address] Dr. Danay De Los Santos Hematocrit (Bld) [Volume fraction] 37.8 % Normal 36.0-48.0 [facility] Comment on above: Performed By: #### C BC #### [facility] [address] [place] [address] Dr. Danay De Los Santos Hemoglobin (Bld) [Mass/Vol] 12.3 g/dL Normal 12.0-16.0 [facility] Comment on above: Performed By: #### C BC #### [facility] [address] [place] [address] Dr. Danay De Los Santos IG # 0.05 10e3/ul Critically high 0.00-0.03 [facility] Comment on above: Performed By: #### C BC #### [facility] [address] [place] [address] Dr. Danay De Los Santos IG % 0.5 % Normal 0.0-0.5 [facility] Comment on above: Performed By: #### C BC #### [facility] [address] [place] [address] Dr. Danay De Los Santos LYMPH # 2.1 103/ul Normal 1.2-3.8 [facility] Comment on above: Performed By: #### C BC #### [facility] [address] [place] [address] Dr. Danay De Los Santos Lymphocytes/100 WBC (Bld) 19.1 % Critically low 20.5-60.0 [facility] Comment on above: Performed By: #### C BC #### [facility] [address] [place] [address] Dr. Danay De Los Santos MANUAL DIFF REQ NO Normal [facility] Comment on above: Performed By: #### C BC #### [facility] [address] [place] [address] Dr. Danay De Los Santos MCH (RBC) [Entitic mass] 30.8 pg Normal 26.7-34.0 [facility] Comment on above: Performed By: #### C BC #### [facility] [address] [place] [address] Dr. Danay De Los Santos MCHC (RBC) [Mass/Vol] 32.5 g/dL Normal 29.9-35.2 [facility] Comment on above: Performed By: #### C BC #### [facility] [address] [place] [address] Dr. Danay De Los Santos MCV (RBC) [Entitic vol] 94.5 fL Normal 81.0-99.0 [facility] Comment on above: Performed By: #### C BC #### [facility] [address] [place] [address] Dr. Danay De Los Santos MONO # 0.6 103/ul Normal 0.3-0.8 [facility] Comment on above: Performed By: #### C BC #### [facility] [address] [place] [address] Dr. Danay De Los Santos Monocytes/100 WBC (Bld) 5.1 % Normal 1.7-12.0 [facility] Comment on above: Performed By: #### C BC #### [facility] [address] [place] [address] Dr. Danay De Los Santos NEUT # 7.5 103/ul Critically high 1.4-6.5 [facility] Comment on above: Performed By: #### C BC #### [facility] [address] [place] [address] Dr. Danay De Los Santos Neutrophils/100 WBC (Bld) 69.4 % Normal 43.0-75.0 [facility] Comment on above: Performed By: #### C BC #### [facility] [address] [address] [address] Danay De Los Santos Platelet mean volume (Bld) [Entitic vol] 10.9 fL Normal 9.5-13.5 [facility] Comment on above: Performed By: #### C BC #### [facility] [address] [address] [address] Danay De Los Santos PLT 235 103/ul Normal 150-450 [facility] Comment on above: Performed By: #### C BC #### [facility] [address] [address] [address] Danay De Los Santos RBC 4.00 106/ul Critically low 4.20-5.40 [facility] Comment on above: Performed By: #### C BC #### [facility] [address] [address] [address] Danay De Los Santos WBC 10.8 103/ul Normal 4.0-11.0 [facility] Comment on above: Performed By: #### C BC #### [facility] [address] [address] [address] Danay De Los Santos FREE THYROXINE INDEX T7on FTI 1.83 Normal 1.30-4.50 [facility] Comment on above: Performed By: #### T SH, CMP, T7, LIPID #### [facility] [address] [address] [address] Danay De Los Santos T3U 31.0 % Normal 30.0-39.0 [facility] Comment on above: Performed By: #### T SH, CMP, T7, LIPID #### [facility] [address] [address] [address] Danay De Los Santos T4 [Mass/Vol] 5.90 ug/dL Normal 4.80-13.90 [facility] Comment on above: Performed By: #### T SH, CMP, T7, LIPID #### [facility] [address] [address] [address] Danay De Los Santos GLYCOHEMOGLOBIN A1Con 2021 ADA RECOMMENDATION SEE BELOW Normal [facility] Comment on above: Result Comment: ADA RECOMMENDED LIMIT 4.0 - 6.0 ADA THERAPEUTIC TARGET < 7.0 ACTION SUGGESTED > 7.0 Performed By: #### A 1C #### [facility] [address] [place] [address] Dr. Danay De Los Santos Glucose [Mass/Vol] 186 mg/dL Normal [facility] Comment on above: Performed By: #### A 1C #### [facility] [address] [address] [address] Danay De Los Santos HbA1c (Bld) [Mass fraction] 8.1 % Critically high 4.5-6.2 [facility] Comment on above: Performed By: #### A 1C #### [facility] [address] [place] [address] Dr. Danay De Los Santos IRONon 05-26-2022 Iron [Mass/Vol] 61.0 ug/dL Normal 50.0-170.0 [facility] Comment on above: Performed By: #### T SH, CMP, T7, LIPID #### [facility] [address] [place] [address] Dr. Danay De Los Santos LIPID PROFILEon 05-26-2022 CHOL-HDL RATIO NORM SEE BELOW Normal [facility] Comment on above: Result Comment: 3.3 - 4.4 LOW RISK 4.4 - 7.1 AVERAGE RISK 7.1 - 11.0 MODERATE RISK >11.0 HIGH RISK Performed By: #### T SH, CMP, T7, LIPID #### [facility] [address] [place] [address] Dr. Danay De Los Santos Cholesterol [Mass/Vol] 130 mg/dL Normal <=200 [facility] Comment on above: Performed By: #### T SH, CMP, T7, LIPID #### [facility] [address] [place] [address] Dr. Danay De Los Santos Cholesterol in HDL [Mass/Vol] 40 mg/dL Normal 40-60 [facility] Comment on above: Performed By: #### T SH, CMP, T7, LIPID #### [facility] [address] [address] [address] Danay De Los Santos Cholesterol in LDL [Mass/Vol] 75.8 mg/dL Normal [facility] Comment on above: Performed By: #### T SH, CMP, T7, LIPID #### [facility] [address] [address] [address] Danay De Los Santos Cholesterol.total/Cho lesterol in HDL [Mass ratio] 3.3 {ratio} Normal [facility] Comment on above: Performed By: #### T SH, CMP, T7, LIPID #### [facility] [address] [address] [address] Danay De Los Santos HDL NORMAL > or = 60 mg/dl - LO W CARDIOVASCULAR RISK <40 mg/dl - HIGH CARDIOVASCULAR RISK Normal [facility] Comment on above: Performed By: #### T SH, CMP, T7, LIPID #### [facility] [address] [address] [address] Danay De Los Santos LDL CALC NORMAL SEE BELOW Normal [facility] Comment on above: Result Comment: <100 mg/dl OPTIMAL 100 - 129 mg/dl NEAR OR ABOVE OPTIMAL 130 - 159 mg/dl BORDERLINE HIGH 160 - 189 mg/dl HIGH >190 mg/dl VERY HIGH Performed By: #### T SH, CMP, T7, LIPID #### [facility] [address] [address] [address] Danay De Los Santos Triglyceride [Mass/Vol] 71 mg/dL Normal <=150 [facility] Comment on above: Performed By: #### T SH, CMP, T7, LIPID #### [facility] [address] [address] [address] Danay De Los Santos VLDL CALC 14.2 mg/dL Normal [facility] Comment on above: Performed By: #### T SH, CMP, T7, LIPID #### [facility] [address] [address] [address] Danay De Los Santos PROF 14(COMP METB)on 022 Albumin [Mass/Vol] 3.4 g/dL Normal 3.4-5.0 [facility] Comment on above: Performed By: #### T SH, CMP, T7, LIPID #### [facility] [address] [address] [address] Danay De Los Santos Albumin/Globulin [Mass ratio] 1.0 {ratio} Normal [facility] Comment on above: Performed By: #### T SH, CMP, T7, LIPID #### [facility] [address] [address] [address] Danay De Los Santos ALP [Catalytic activity/Vol] 92 U/L Normal 46-116 [facility] Comment on above: Performed By: #### T SH, CMP, T7, LIPID #### [facility] [address] [address] [address] Danay De Los Santos ALT [Catalytic activity/Vol] 15 U/L Normal 14-59 [facility] Comment on above: Performed By: #### T SH, CMP, T7, LIPID #### [facility] [address] [place] [address] Dr. Danay De Los Santos Anion gap [Moles/Vol] 10.4 mmol/L Normal [facility] Comment on above: Performed By: #### T SH, CMP, T7, LIPID #### [facility] [address] [place] [address] Dr. Danay De Los Santos AST [Catalytic activity/Vol] 12 U/L Critically low 15-37 [facility] Comment on above: Performed By: #### T SH, CMP, T7, LIPID #### [facility] [address] [place] [address] Dr. Danay De Los Santos Bilirubin [Mass/Vol] 0.4 mg/dL Normal 0.2-1.0 [facility] Comment on above: Performed By: #### T SH, CMP, T7, LIPID #### [facility] [address] [place] [address] Dr. Danay De Los Santos Calcium [Mass/Vol] 8.7 mg/dL Normal 8.5-10.1 [facility] Comment on above: Performed By: #### T SH, CMP, T7, LIPID #### [facility] [address] [place] [address] Dr. Danay De Los Santos Chloride [Moles/Vol] 107 mmol/L Normal 98-107 [facility] Comment on above: Performed By: #### T SH, CMP, T7, LIPID #### [facility] [address] [place] [address] Dr. Danay De Los Santos CO2 [Moles/Vol] 28.9 mmol/L Normal 21.0-32.0 [facility] Comment on above: Performed By: #### T SH, CMP, T7, LIPID #### [facility] [address] [place] [address] Dr. Danay De Los Santos Creatinine [Mass/Vol] 1.18 mg/dL Critically high 0.55-1.02 [facility] Comment on above: Performed By: #### T SH, CMP, T7, LIPID #### [facility] [address] [place] [address] Dr. Danay De Los Santos EGFR-AF PORTUGUESE 55 mL/min/1.73m2 Critically low >=60 [facility] Comment on above: Performed By: #### T SH, CMP, T7, LIPID #### [facility] [address] [place] [address] Dr. Danay De Los Santos EGFR-NON AF [place]UGUESE 46 mL/min/1.73m2 Critically low >=60 [facility] Comment on above: Performed By: #### T SH, CMP, T7, LIPID #### [facility] [address] [place] [address] Dr. Danay De Los Santos Globulin (S) [Mass/Vol] 3.3 g/dL Normal [facility] Comment on above: Performed By: #### T SH, CMP, T7, LIPID #### [facility] [address] [place] [address] Dr. Danay De Los Santos Glucose [Mass/Vol] 153 mg/dL Critically high 74-106 [facility] Comment on above: Performed By: #### T SH, CMP, T7, LIPID #### [facility] [address] [place] [address] Dr. Danay De Los Santos Potassium [Moles/Vol] 4.3 mmol/L Normal 3.5-5.1 [facility] Comment on above: Performed By: #### T SH, CMP, T7, LIPID #### [facility] [address] [place] [address] Dr. Danay De Los Santos Protein [Mass/Vol] 6.7 g/dL Normal 6.4-8.2 [facility] Comment on above: Performed By: #### T SH, CMP, T7, LIPID #### [facility] [address] [address] [address] Danay De Los Santos Sodium [Moles/Vol] 142 mmol/L Normal 136-145 [facility] Comment on above: Performed By: #### T SH, CMP, T7, LIPID #### [facility] [address] [address] [address] Danay De Los Santos Urea nitrogen [Mass/Vol] 16.0 mg/dL Normal 7.0-18.0 [facility] Comment on above: Performed By: #### T SH, CMP, T7, LIPID #### [facility] [address] [address] [address] Danay De Los Santos Urea nitrogen/Creatinine [Mass ratio] 13.6 mg/mg Normal [facility] Comment on above: Performed By: #### T SH, CMP, T7, LIPID #### [facility] [address] [address] [address] Danay De Los Santos TSHon 05-26-2022 TSH 1.443 uIU/mL Normal 0.358-3.740 [facility] Comment on above: Performed By: #### T SH, CMP, T7, LIPID #### [facility] [address] [place] [address] Dr. Danay De Los Santos XR DEXA [...] BECKY OWENS Date: 2022-04-05 12:11 Normal [facility] GLYCOHEMOGLOBIN A1Con 2021 ADA RECOMMENDATION SEE BELOW Normal [facility] Comment on above: Result Comment: ADA RECOMMENDED LIMIT 4.0 - 6.0 ADA THERAPEUTIC TARGET < 7.0 ACTION SUGGESTED > 7.0 Performed By: #### T SH, CMP, T7, LIPID #### [facility] [address] [address] [address] Danay De Los Santos Glucose [Mass/Vol] 174 mg/dL Normal [facility] Comment on above: Performed By: #### T SH, CMP, T7, LIPID #### [facility] [address] [address] [address] Danay De Los Santos HbA1c (Bld) [Mass fraction] 7.7 % Critically high 4.5-6.2 [facility] Comment on above: Performed By: #### T SH, CMP, T7, LIPID #### [facility] [address] [address] [address] Danay De Los Santos MG MAMM SCREEN 3D RIMA CADon 02-14-2022 MG MAMM SCREEN 3D RIMA CAD Patient: VIRGEN GONZALES Exam Date: 02/14/2022 : 1955 Gender:F [facility]ing : [facility] Admission #: [id number] Family : Order #: [id number] CLICK HERE TO VIEW EXAM RADIOLOGY REPORT [...] unknown cancer at age 24. LOCATION: [facility] BREAST COMPOSITION: Heterogeneously dense,which may obscure small [...] Owens M.D. on 02/14/2022 at 16:12 Normal [facility] CARDIAC STRESS/REST INJE CTIONon 01-27-2020 [facility] CARDIAC STRESS/REST INJECTION Patient Name: VIRGEN GONZALES STUDY: MYOCARDIAL PERFUSION STRESS TEST WITH LEXISCAN Performing facility: [facility], [address] [place] [address], [address], [address] Provider: Catarino Franks MD, FACC PCP: Dr. Nicola Granger Supervising provider: Catarino Franks MD, FACC INDICATION: Abnormal EKG; Pre-operative risk assessment for Knee surgery scheduled at unknown on unknown. [facility] HISTORY: Gender: F; Age: 64 y/o ; Height: 152.4 cm; Weight: 77.0221264 kg. High Cholesterol; Abnormal EKG; Diabetes; Family HX CAD; HTN; Smoking COMPARISON: No comparison. ACCESSION NUMBER(S): [id number]; [id number]; [id number] ORDERING CLINICIAN: CATARINO FRANKS TECHNIQUE: ONE DAY [...] comparison. Electronically signed by: CATARINO FRANKS MD [facility] Social History Date Type Detail Facility Start: 08-27-2023 Sex Assigned At Female F [facility] Start: 08-27-2023 Alcohol intake Lifetime non-d kathe (finding) [facility] Start: 08-27-2023 History of Social function [facility] Start: 05-07-2023 Tobacco smoking status [facility] Smokes tobacco daily [facility] Start: 05-07-2023 Tobacco use and exposure Smokeless tobacco non-user [facility] Start: 05-07-2023 Alcohol Comment caffeine intak e: more than 4 cups per day of coffee, pop, tea [facility] Start: 04-12-2023 Tobacco smoking status NHIS Smoker (finding) [facility] Start: 1955 Sex Assigned At Not on file [facility] Start: 1955 Sex Assigned At Female F [facility] Tobacco Cigarettes [facility] Comment on above: 05/30 pkg daily Tobacco smoking status No Smoking Status Entered [facility] History of tobacco use Cigarette Smoker [facility] Vital Signs Date Time Vital Sign Value Performing Clinician Facility 08-27-2023 15:38-0500 Body height 149.9 cm Brice Pj DO Work Phone: [facility] 08-27-2023 15:38-0500 Body mass index (BMI) [Ratio] 39.59 kg/m2 Brice Oliva DO Work Phone: [facility] 08-27-2023 15:38-0500 Body temperature 97.39 [degF] Brice Oliva DO Work Phone: [facility] 08-27-2023 15:38-0500 Body weight 88.91 kg Brice Oliva DO Work Phone: [facility] 06-07-2023 08:27-0500 Heart rate 77 /min Brice Oliva [facility] 06-07-2023 08:27-0500 SaO2% (BldA) [Mass fraction] 98 % Brice Oliva [facility] 06-07-2023 08:26-0500 Respiratory rate 20 /min Brice Oliva [facility] 06-07-2023 08:26-0500 Blood Pressure Location Brice Oliva [facility] 06-07-2023 08:26-0500 Diastolic blood pressure 64 mm[Hg] Brice Oliva [facility] 06-07-2023 08:26-0500 Mean blood pressure 77 mm[Hg] Brice Oliva [facility] 06-07-2023 08:26-0500 Systolic blood pressure 102 mm[Hg] Brice Oliva [facility] 06-07-2023 08:25-0500 Body temperature 97.88 [degF] Brice Oliva [facility] 06-07-2023 08:05-0500 Diastolic blood pressure 59 mm[Hg] Brice Oliva [facility] 06-07-2023 08:05-0500 Heart rate 73 /min Brice Oliva [facility] 06-07-2023 08:05-0500 SaO2% (BldA) [Mass fraction] 95 % Brice Oliva [facility] 06-07-2023 08:05-0500 Systolic blood pressure 114 mm[Hg] Brice Oliva [facility] 06-07-2023 07:30-0500 Diastolic blood pressure 70 mm[Hg] Brice Oliva [facility] 06-07-2023 07:30-0500 Heart rate 70 /min Brice Oliva [facility] 06-07-2023 07:30-0500 SaO2% (BldA) [Mass fraction] 96 % Brice Oliva [employer] [facility] 06-07-2023 06:52-0500 Mean blood pressure 76 mm[Hg] Brice Oliva [facility] 06-07-2023 06:49-0500 Body temperature 97.88 [degF] Brice Oliva [employer] [facility] 06-07-2023 06:49-0500 Mean blood pressure 79 mm[Hg] Brice Oliva [employer] [facility] Functional Status Date Assessment Result Facility 06-07-2023 Functional Status N/A [facility] History of Present illness Narrative 08-27-2023 DAR Delong - 08/27/2023 3:45 PM Alisa Ojeda - 08/27/2023 3:45 PM EST Note Date [...] hours Jardiance 25 MG (Prior Auth: Rx Ref#:[id number]) Oral for 90 Lasix 20 MG tablet [...] Right 2006 NAIL REMOVAL toenails removed x3 IN ARTHROSCOPY KNEE DIAGNOSTIC W/WO SYNOVIAL BX SPX Right 02/24/2020 Dr. Ashraf IN KNEE SCOPE,DIAGNOSTIC Right 09/30/2020 JAB TONSILLECTOMY 1972 TRIGGER FINGER RELEASE 05/09/2016 RLF [...] injection. This was administered by out physician's business banking sales assistant Phi Armendariz under my direct supervision. Follow-up in six weeks for re-evaluation. A total of 30 to 39 minutes was spent on this patient encounter which included chart review, check in, nurse triage, history taking, physical examination, diagnostic study review, patient counseling and discussion, entering information into the patient's medical record, and coordinating patient care. Brice Oliva D.O. documented in this encounter [facility] Discharge instructions 06-07-2023 Note Date & Type Note Facility 06-07-2023 Hospital Discharg e instructions Patient Education 06/07/2023 07:30:41 Conchita Oliva - Carpal Tunnel/Cubital Tunnel Release Instructions (Custom) [place], [place] [facility] CARPAL TUNNEL RELEASE INSTRUCTIONS [...] to resolve. Brice Oliva DO [facility] [address] [place] [id number] Reviewed: 3-18 Follow Up Care 05/07/2023 14:01:18 With:Brice Oliva DO, ORT Address: [address] [place] [id number]- When: Unknown Comments:, 2 pm Appointment has already been scheduled [facility] History and physical note 06-06-2023 Note Date & Type Note Facility 06-06-2023 Note [id number] 9#[id number] [facility] Clinical Note 03-16-2022 Note Date & [...] authenticated by: BECKY OWENS Date: 2022-03-16 08:24 [facility] Evaluation + Plan note Note Date & Type Note Facility Evaluation + Plan note No data available for this section [facility] Evaluation note Note Date & Type Note Facility Evaluation note Diagnosis Left knee pain, unspecified chronicity- Primary documented in this encounter [facility] Evaluation note Note Date & Type Note Facility Evaluation note No assessment information [facility] Work Phone: Hospital Discharge instructions Note Date & Type Note Facility Hospital Discharge instructions No data available for this section [facility] Progress note Note Date & Type Note Facility Progress note No data available for this section [facility] Summary Purpose Family History No Family History [...] Date/ Time Advance Directives No October 02 18 9:55am Reason for Referral Specialty Diagnoses / Procedures Referred By Contac t Referred To Contact Orthopaedic Surgery Diagnoses Left knee pain, unspecified chronicity Procedures L Inj/Asp: L knee Brice Oliva DO [address] [place] [address] Referral ID Status Reason Start Date Expiration Date Visits Re quested Visits Authorized [id number] Closed 08/27/2023 02/23/2024 1 1 Chief Complaint and Reason for Visit Chief Complaint L hand Additional Source Comments INFORMATION SOURCE (unrecogn ized section and content) DATE CREATED AUTHOR 03/11/2020 [facility] DATE CREATED AUTHOR AUTHOR'S ORGANIZ ATION 08/25/2022 [facility] DATE CREATED AUTHOR AUTHOR'S ORGANIZ ATION 01/04/2023 [facility] DATE CREATED AUTHOR AUTHOR'S ORGANIZ ATION 10/20/2023 [facility] DATE CREATED AUTHOR AUTHOR'S ORGANIZ ATION 12/13/2023 [facility] DATE CREATED AUTHOR AUTHOR'S ORGANIZ ATION 01/01/2024 [facility] Patient Care team informatio n (unrecognized section and content) 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 [employer] [facility]. provides no warranty or guarantee of the accuracy or completeness of information in this document.
--- NOTE | 2024-01-29 08:34 | ED_ITS ---
HPI HPI - General Adult General Chief complaint: Skin/Abscess/Foreign Body Stated complaint: ITCHY , RASH ON SKIN Time Seen by Provider: 01/29/24 08:08 Source: patient Mode of arrival: walk-in History of Present Illness HPI narrative: Patient presents to ED complaining of a rash and itchiness on her chest and back. She was recently diagnosed with pneumonia and was placed on Zithromax and a cephalosporin. She is allergic to penicillin. She noticed the rash and itchiness that started and is worse today after taking a few days worth of the antibiotics. No shortness of breath no wheezing. She denies any exposure to new skin products. She is alert and oriented in no acute distress. Related Data Home Medications ?Medication ?Instructions ?Recorded ?Confirmed buspirone 7.5 mg tablet mg 01/24/24 empagliflozin 25 mg tablet mg 01/24/24 (Jardiance) fluoxetine 20 mg capsule mg 01/24/24 furosemide 20 mg tablet mg 01/24/24 hydrochlorothiazide 25 mg tablet mg 01/24/24 insulin NPH isoph U-100 human 100 22 unit subcut BID 01/24/24 01/24/24 unit/mL (3 mL) subcutaneous pen (Humulin N NPH U-100 Insulin KwikPen) lisinopril 10 mg tablet mg 01/24/24 naproxen 500 mg tablet mg 01/24/24 omeprazole 40 mg capsule,delayed mg 01/24/24 release pregabalin 75 mg capsule mg 01/24/24 semaglutide 0.25 mg or 0.5 mg (2 mg subcut 01/24/24 mg/3 mL) subcutaneous pen injector (Ozempic) simvastatin 40 mg tablet mg 01/24/24 azithromycin 250 mg tablet mg 01/29/24 cefuroxime axetil 500 mg tablet mg 01/29/24 Previous Rx's ?Medication ?Instructions ?Recorded methylprednisolone 4 mg tablets in 4 mg PO DAILY #21 ea 01/29/24 a dose pack (Medrol (Vasu)) Allergies Allergy/AdvReac Type Severity Reaction Status Date / Time acetaminophen Allergy Unknown Verified 01/24/24 18:52 [From Darvocet-N] Penicillins Allergy Unknown Verified 01/24/24 18:52 propoxyphene Allergy Unknown Verified 01/24/24 18:52 [From Darvocet-N] Opioid HPI Opioid Management Most Recent Opioid Data: No Data to Display Review of Systems ROS Status of ROS 10 or more systems reviewed and unremark able except as noted in history and below Exam Narrative Exam Narrative: General: alert, no acute distress Cardiovascular: regular rate and rhythm, normal peripheral perfusion. Respiratory: Lungs CTA, respirations non labored. Extremities: no deformity, no trauma. Neurological: oriented x 4, LOC appropriate for age. Fine erythematous rash on chest and back Constitutional Vital Signs, click to edit/add: Last Vital Signs Temp 98 F 01/29/24 08:11 Pulse 67 01/29/24 08:11 Resp 18 01/29/24 08:11 BP 135/80 01/29/24 08:11 Pulse Ox 97 01/29/24 08:11 O2 Del Method Room Air 01/29/24 08:11 Course Vital Signs Vital signs: Vital Signs Temperature 98 F 01/29/24 08:11 Pulse Rate 67 01/29/24 08:11 Respiratory Rate 18 01/29/24 08:11 Blood Pressure 135/80 01/29/24 08:11 Pulse Oximetry 97 01/29/24 08:11 Oxygen Delivery Method Room Air 01/29/24 08:11 Temperature 98 F 01/29/24 08:11 Pulse Rate 67 01/29/24 08:11 Respiratory Rate 18 01/29/24 08:11 Blood Pressure 135/80 01/29/24 08:11 Pulse Oximetry 97 01/29/24 08:11 Oxygen Delivery Method Room Air 01/29/24 08:11 Medical Decision Making MDM Narrative Medical decision making narrative: Patient is most likely allergic to the cephalosporin given the fact that she is penicillin allergic. I told her to discontinue that antibiotic but finish out the Z-Vasu. I will send her home on a Medrol Dosepak which should help with the rash. Take Benadryl as needed. Differential Diagnosis Differential Diagnosis: Allergic reaction, drug rash, contact dermatitis Medical Records Medical records reviewed: Yes I reviewed the patient's medical records Discharge Plan Discharge Stand Alone Forms: Portal Instructions Chief Complaint: Skin/Abscess/Foreign Body Clinical Impression: Allergic drug rash Patient Disposition: Home, Self-Care Time of Disposition Decision: 08:31 Mode of Transportation: Private Vehicle Prescriptions / Home Meds: New methylprednisolone [Medrol (Vasu)] 4 mg tablets,dose pack 4 mg PO DAILY Qty: 21 0RF No Action omeprazole 40 mg capsule,delayed release(DR/EC) simvastatin 40 mg tablet lisinopril 10 mg tablet buspirone 7.5 mg tablet hydrochlorothiazide 25 mg tablet furosemide 20 mg tablet fluoxetine 20 mg capsule naproxen 500 mg tablet pregabalin 75 mg capsule Jardiance 25 mg tablet Ozempic 0.25 mg or 0.5 mg (2 mg/3 mL) pen injector SUBCUT Humulin N NPH Insulin KwikPen 100 unit/mL (3 mL) insulin pen 22 unit subcut BID azithromycin 250 mg tablet cefuroxime axetil 500 mg tablet Print Language: [place] Instructions: General Allergic Reaction (ED) Referrals: JOSUÉ DAVIS [Primary Care Provider] - 1 week
== END 2024-01-29 08:49 | disposition home or self-care (01) ==
PROVIDERS: Emergency Provider Emergency Medicine; PCP Nurse Practitioner Family
DX: L27.0 Generalized skin eruption due to drugs and medicaments taken internally (principal); T36.1X5A Adverse effect of cephalosporins and other beta-lactam antibiotics, initial encounter; Z87.01 Personal history of pneumonia (recurrent)
CPT/HCPCS: 99283

== ENCOUNTER 2024-02-04 09:11 | Outpatient (OUT) | payer MEDICARE, SELFPAY ==
--- NOTE | 2024-02-04 09:14 | US_ITS ---
[address] [address] Patient Name: IDRIS GRIFFIN MRN: [id number] date: 1955 Sex: F Assigned Patient Location: US Current Patient Location: US Accession/Order Number: [id number] Exam Date: 02/04/2024 09:18 Report Date: 02/04/2024 10:34 At the request of: JOSUÉ DAVIS Procedure: US thyroid EXAMINATION: US thyroid HISTORY: Thyroid Lesion E07.9 COMPARISON: No relevant comparison available. TECHNIQUE: Sonographic images of the thyroid gland were obtained. FINDINGS: The right thyroid lobe measures 5.2 x 2.1 x 2.2 cm. Heterogeneous echotexture with multiple nodules. The thyroid isthmus measures 3.2 mm, heterogeneous. The left thyroid lobe measures 4.6 x 2.1 x 1.5 cm. Heterogeneous echotexture with multiple nodules. The 2 most suspicious nodules: Nodule 1: Right thyroid lobe. 1.6 x 1.1 x 0.8 cm. solid, hypoechoic, wide, smooth margins, macrocalcifications. TR 4 Nodule 2: Thyroid isthmus. 1.9 x 1.6 x 0.8 cm. Solid, no consultations. TR4 US/US thyroid IMPRESSION: Multinodular thyroid gland TI-RADS: The [employer] TI-RADS committee's white paper recommendations for thyroid lesions classified as TR4 (moderately suspicious) are listed below: > 1.0 cm. Follow-up ultrasound in 1, 2, 3, and 5 years. > 1.5 cm. FNA. J. Am Amy Radiol 2017;14:587-595. Electronically authenticated by: BRIANNA GREEN Date: 02/04/2024 10:34
== END 2024-02-04 09:12 | disposition home or self-care (01) ==
LOC: US 09:11
PROVIDERS: PCP Nurse Practitioner Family; Visit Provider Nurse Practitioner Family
DX: E07.9 Disorder of thyroid, unspecified (principal); E04.2 Nontoxic multinodular goiter
CPT/HCPCS: 76536

== ENCOUNTER 2024-02-14 08:27 | Day surgery (SDC) | payer MEDICARE, SELFPAY ==
[2024-02-14 08:30] VITALS: BP 109/74; PULSE 80; O2SAT 97
--- NOTE | 2024-02-14 08:34 | US_ITS ---
[address] [address] Patient Name: IDRIS GRIFFIN MRN: [id number] date: 1955 Sex: F Assigned Patient Location: US Current Patient Location: Accession/Order Number: [id number] Exam Date: 02/14/2024 09:10 Report Date: 02/14/2024 10:31 At the request of: JOSUÉ DAVIS Procedure: US biopsy thyroid EXAMINATION: US biopsy thyroid, US biopsy FNA add lesion HISTORY: Thyroid Nodules COMPARISON: No relevant comparison available. TECHNIQUE: After obtaining informed consent, ultrasound-guided fine needle aspiration was performed in the usual sterile manner. FINDINGS: IMAGING: Ultrasound. BIOPSY NEEDLE: 25-gauge; 3 separate passes within both lesions. LOCATION: Right lobe midupper pole 1.6 cm mass. Right sided isthmus 2.0 x 1.9 x 0.7 cm mass. SPECIMEN TYPE: Cellular tissue. LOCAL ANESTHETIC: Buffered Xylocaine. COMPLICATIONS: None. LABORATORY: Prepared slide smears and washings for cell block evaluation. OTHER: Negative. PATHOLOGY: Pending. An addendum will be added when results are available. US/US biopsy thyroid IMPRESSION: 1. Uneventful ultrasound guided fine needle aspiration (FNA). 2. Pathology results are pending. Electronically authenticated by: BECKY AVILEZ Date: 02/14/2024 10:31
--- NOTE | 2024-02-14 08:34 | US_ITS ---
[address] [address] Patient Name: IDRIS GRIFFIN MRN: [id number] date: 1955 Sex: F Assigned Patient Location: US Current Patient Location: Accession/Order Number: [id number] Exam Date: 02/14/2024 09:10 Report Date: 02/14/2024 10:31 At the request of: JOSUÉ DAVIS Procedure: US biopsy FNA add lesion EXAMINATION: US biopsy thyroid, US biopsy FNA add lesion HISTORY: Thyroid Nodules COMPARISON: No relevant comparison available. TECHNIQUE: After obtaining informed consent, ultrasound-guided fine needle aspiration was performed in the usual sterile manner. FINDINGS: IMAGING: Ultrasound. BIOPSY NEEDLE: 25-gauge; 3 separate passes within both lesions. LOCATION: Right lobe midupper pole 1.6 cm mass. Right sided isthmus 2.0 x 1.9 x 0.7 cm mass. SPECIMEN TYPE: Cellular tissue. LOCAL ANESTHETIC: Buffered Xylocaine. COMPLICATIONS: None. LABORATORY: Prepared slide smears and washings for cell block evaluation. OTHER: Negative. PATHOLOGY: Pending. An addendum will be added when results are available. US/US biopsy FNA add lesion IMPRESSION: 1. Uneventful ultrasound guided fine needle aspiration (FNA). 2. Pathology results are pending. Electronically authenticated by: BECKY AVILEZ Date: 02/14/2024 10:31
--- OUTSIDE RECORDS SUMMARY | 2024-02-14 08:47 | XMS_ITS | CCD ---
Author Organization [facility] Care Team Providers Care [place] Bottom Maker Name Role Phone AGGIE FU Primary Care Physician [phone] AGGIE DAVIS Attending Unavailable SUSAN, AGGIE Primary Care Unavailable SUSAN, AGGIE Admitting Unavailable ZIEBER, DR BECKY Morelos Consulting Unavailable SUSAN, AGGIE Consulting Unavailable SUSAN, AGGIE Attending Unavailable SUSAN, AGGIE Primary Care Unavailable SUSAN, AGGIE Admitting Unavailable RAGHAV, DR BECKY [employer] Unavailable SUSAN, AGGIE Consulting Unavailable SUSAN, AGGIE Attending Unavailable SUSAN, AGGIE Primary Care Unavailable SHABBIREBER, DR BECKY Morelos Consulting Unavailable SUSAN, AGGIE [...] Admitting Unavailable AGGIE DAVIS Primary Care Physician [phone] Unallocated, [place] Provider Primary Care Provider ROMEO Davis-Hilda Hall Primary Care Provider DO Brice Oliva Attending Provider Brown, Brice A Referring Unavailable Brown, Brice [...] Referring Unavailable BROWN, BRICE A Attending Unavailable Sherwin Baker Admitting Unavailable Sherwin Baker Attending Unavailable Aggie Davis Primary Care Unavailable Brown, Brice A Admitting Unavailable Brown, Brice A Attending Unavailable Aggie Davis Primary Care Unavailable Allergies Allergy Classification Reported Allergen(s) Allergy Type Date of Onset Reaction(s) Facility (3 sources) Acetaminophen / HYDROcodone; Translations: [acetaminophen-hy drocodone] Drug Allergy itching , sick to stomach [facility] (3 sources) Acetaminophen / oxyCODONE; Translations: [acetaminophen-ox ycodone] Drug Allergy sleeps a long time [facility] (3 sources) acetaminophen / propoxyphene; Translations: [acetaminophen-pr opoxyphene] Drug Allergy Itching [facility] (6 sources) Codeine; Translations: [codeine] Drug Allergy 1 Rash [facility] (6 sources) Penicillins; Translations: [penicillins] Drug allergy 4 Difficulty breathing at rest, Hives [facility] (6 sources) Propoxyphene; Translations: [propoxyphene] Drug Allergy 7 Itching, Unknown [facility] (1 source) Propoxyphene Drug Allergy 4 [facility] [place] [facility] (1 source) ZOLMitriptan Drug Allergy 4 [facility] [place] [facility] (1 source) Darvocet-N 100 Drug allergy (disorder) 4 [facility] [place] [facility] (2 sources) Acetaminophen / HYDROcodone Drug Allergy 5 Unknown [facility] (2 sources) Acetaminophen / oxyCODONE Drug Allergy 1 [facility] (3 sources) HYDROcodone Drug Allergy 1 Unknown [facility] (2 sources) traMADol Drug Allergy 1 [facility] (2 sources) Acetaminophen; Translations: [acetaminophen] Drug Allergy 3 Itching [facility] (2 sources) oxyCODONE; Translations: [oxycodone] Drug Allergy 3 Drowsy [facility] (2 sources) Penicillin; Translations: [penicillin G] Drug Allergy [facility] (2 sources) ZOLMitriptan; Translations: [zolmitriptan] Drug Allergy 3 felt like I was on [facility] (1 source) Codeine Drug Allergy 3 [facility] (1 source) HYDROcodone Drug Allergy 3 [facility] (1 source) Propoxyphene Drug Allergy 3 [facility] Rep[facility] Medications Current Medications Medication Drug Class(es) [...] Pr opionate (Flonase Allergy Relief) 50 mcg/actuation [place],Suspension Active 1 SPRAY INTRANASAL As Directed February [...] g56.02, # 30 tab(s), Refills(s) 0, Pharmacy: [facility] #[id number], 152.4, cm, 06/07/23 6:59:00 EST, Height/Length Dosing [...] day(s), # 50 tab(s), Refills(s) 0, Pharmacy: [facility] #[id number], 152.4, cm, 06/07/23 6:59:00 EST, Height/Length Dosing [...] sources) Lipoma of back 11-28-2020 Episodic Other diseases of kidney and ureters [...] secondary to d ocumentation in Social History. Past or Other Problems Problem Classification Problem Date Documented Da te Episodic/Chronic E Codes: Fall (1 source) Unspecified fall, initial encounter; Translations: [UNSPECIFIED FALL INITIAL ENCOUNTER] Onset: 08-08-2022 Episodic Other connective tissue disease (4 sources) Pain in right lower leg; Translations: [PAIN IN RIGHT LOWER LEG] Onset: 03-15-2022 Episodic Other connective tissue disease (1 source) Pain in left finger(s); Translations: [Pain in left finger(s)] Onset: 08-22-2023 Episodic Other injuries and conditions due to external causes (1 source) Unspecified injury of head, initial encounter; Translations: [Unspecified injury of head, initial encounter] Onset: 04-12-2023 Episodic Other non-traumatic joint disorders (3 sources) [...] reassessment due to being sick. AMK Normal [facility] Nonvisit Note - PTon 024 Nonvisit Note - PT Pt no showed for 171 5 appointment. Normal [facility] Nonvisit Note - PTon 024 Nonvisit Note - PT Pt called to cancel as she is ill. [facility] Consent for Treatmenton 10-28 Consent for Treatment [id number]#[address] [facility] PT - Assessmentson PT - Assessments [id number]#[address] [facility] PT - Consentson 11-19-2023 PT - Consents [id number]#[address] [facility] Insurance Correspondenceon 0 11-12-2023 Insurance Correspondence [id number]# 1.00TIFF [facility] PT - Orderson 11-11-2023 PT - Orders [id number]# 1.00TIFF [facility] L Inj/Asp: L kneeon 08-27-19 24 Sue Henning, ARR T 09/02/2023 8:37 AM L Inj/Asp: L knee on 08/27/2023 3:43 PM Indications: pain Details: 21 G needle, lateral approach Medications: 16 mg hylan 16 MG/2ML Consent was given by the patient. [facility] IntraOperative Documentson 1 08-11-2022 IntraOperative Documents [id number]#[address] [facility] Discharge Instructionson Discharge Instructions [id number] #1.00TIFF [facility] IntraOperative Documentson 1 08-10-2022 IntraOperative Documents [id number] #1.00TIFF [facility] Main OR Intraoperative Recor don 06-10-2023 Main OR Intraoperative Record IntraOp Document Type FT Summary Primary Physician: Brice Oliva DO Finalized Date/Time: 06/10/23 12:15:18 Pt. Name: VIRGEN GONZALES/Sex: 1955 Female Med Rec #: [id number] Physician: Brice Oliva DO Financial #: [id number] Pt. 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 Normal [facility] Preoperative Documentson Preoperative Documents [id number] #1.00TIFF [facility] Consent for Procedure/Surger yon 06-07-2023 Consent for Procedure/Surgery [id number]# 1.00TIFF [facility] Consent for Treatmenton 05-29 Consent for Treatment [id number]#[address] [facility] Discharge Instructionson Discharge Instructions VIRGEN GONZALES :1955 [...] Doctor Event Name Event Result [facility] Dis[facility] Instructions Discharge Instructions New Follow Up Appointments after Discharge Follow Up with Brice Oliva DO, ORT When: Comments: , 2 pm Appointment has already been scheduled Where: [place] [address]- Medications What How Much When Instructions Next Dose New ascorbic acid (Vitamin C 500 mg oral tablet, chewable) 1 Tablets Chewed Every day Duration: 50 Days Pickup at [facility] #[id number] New tramadol (traMADOL 50 mg Tab) 1 Tablets By Mouth Every 4 hours as needed for for pain g56.02 Pickup at [facility] #78994 Changed naproxen (naproxen 500 mg Tab) 1 Tablets By Mouth 2 times a day as needed for Pain with food Pickup at [facility] #37855 Changed naproxen (naproxen 500 mg Tab) 1 [...] times a day Pharmacy Information [facility] #[id number]: [address], [place] [phone] What How Much When Comments Stop Taking [...] Cigarette smoker Fatigue Insomnia Lipoma of back PR - myocardial infarction Osteoporosis Pharyngitis Education Materials [place], [place] [facility] CARPAL TUNNEL RELEASE INSTRUCTIONS Post-Operative Week One Please do (more content not included)... Normal [facility] Comment on above: Result Comment: Elec tronically Signed By: Lilo YANG, Gila Pedroza\.mary\Date and Time Signed: 06/07/23 08:35 EST Discharge [...] Doctor Event Name Event Result Pharmacy Information [facility] , [place] New Follow Up Appointments after Discharge Follow Up with Brice Oliva DO, ORT When: Comments: , 2 pm Appointment has already been scheduled Where: [place] [address]- Medications What How Much When Instructions Next Dose New ascorbic acid (Vitamin C 500 mg oral tablet, chewable) 1 Tablets Chewed Every day Duration: 50 Days Pickup at [facility] #09938 New tramadol (traMADOL 50 mg Tab) 1 Tablets By Mouth Every 4 hours as needed for for pain g56.02 Pickup at [facility] #98077 Changed naproxen (naproxen 500 mg Tab) 1 Tablets By Mouth 2 times a day with food Changed naproxen (naproxen 500 mg Tab) 1 Tablets By Mouth 2 times a day as needed for Pain with food Pickup at [facility] #09876 Unchanged alendronate (alendronate 70 mg oral tablet) [...] Mouth 2 times a day Pharmacy Information [facility] #[id number]: [address] [place] [phone] What How Much When Comments Stop Taking [...] Cigarette smoker Fatigue Insomnia Lipoma of back PR - myocardial infarction Osteoporosis Pharyngitis (more content not included)... Normal [facility] Comment on above: Result Comment: Elec tronically Signed By: Meryc Antonio LPN\.br\Date and Time Signed: 06/07/23 08:32 EST H&P Updateon 06-07-2023 H&P Update [id number]# 1.00TIFF Normal [facility] Inpatient Patient Summaryon 06-07-2023 Inpatient Patient Summary [place] [id number] [facility] Clinical Discharge Instructions PERSON INFORMATION Name: VIRGEN GONZALES [facility]#:[id number] PHYSICIANS Admitting Physician: Brice Oliva DO Attending Physician: Brice Oliva DO PCP: AGGIE DAVIS CNP Discharge Diagnosis: Comment: PATIENT EDUCATION INFORMATION Instructions: Conchita Oliva - Carpal Tunnel/Cubital Tunnel Release Instructions (Custom) Medication Leaflets: Follow up: MEDICATION LIST New Medications [facility] #[id number], [address] [place] [id number], [phone] ascorbic acid (Vitamin C 500 mg oral tablet, chewable) 1 Tablets Chewed every day for 50 Days. Refills: 0. tramadol (traMADOL 50 mg Tab) 1 Tablets By Mouth every 4 hours as needed for pain. g56.02. Refills: 0. Medications to Continue Taking That Have Changed [facility] #[id number], [address] [place] [phone], [phone] START: naproxen (naproxen 500 mg Tab) 1 [...] as needed as needed for arthritis. Comment: Normal [facility] Main OR PACU II Recordon Main OR PACU II Record PACU Phase II Document Type FT Summary Primary Physician: Brice Oliva DO Finalized Date/Time: 06/07/23 09:45:08 Pt. Name: VIRGEN GONZALES /Sex: 1955 Female Med Rec #: [id number] Physician: Brice Oliva DO Financial #: [id number] Pt. Type: A Room/Bed: [place] [address] Admit/Disch: 06/07/23 06:35:30 - Institution: Case Times [...] By: Mercy Antonio LPN 06/07/23 09:45 Normal [facility] Main OR Preoperative Recordo n 06-07-2023 Main OR Preoperative Record PreOp Document Type FT Summary Primary Physician: Brice Oliva DO Finalized Date/Time: 06/07/23 07:47:43 Pt. Name: VIRGEN GONZALES D.O.B./Sex: 1955 Female Med Rec #: [id number] Physician: Brice Oliva DO Financial #: [id number] Pt. Type: A Room/Bed: [place] [address] Admit/Disch: 06/07/23 06:35:30 - Institution: Case Times [...] Signed By: Merry Perez RN 06/07/23 07:47 Normal [facility] Main OR Preoperative Record Holding Area Document Type FT Summary Primary Physician: Brice Oliva DO Finalized Date/Time: 06/07/23 07:35:11 Pt. Name: VIRGEN GONZALES D.O.B./Sex: 1955 Female Med Rec #: [id number] Physician: Brice Oliva DO Financial #: [id number] Pt. Type: A Room/Bed: [facility] Admit/Disch: 06/07/23 06:35:30 - Institution: Case Times [...] 07:05 Mercy Antonio LPN 06/07/23 07:35 Normal [facility] Operative Reporton 3 Operative Report Patient: VIRGEN [...] Local OPERATIVE INDICATIONS: Virgen is a 67-year-old gjxao-ahle-qzfbyhuj female who has had persistent pain, numbness [...] and the median nerve. A curved meniscal [place] blade was slid on top of the [...] linda was identified and released with a [place] blade. There was thickening to the [employer] [...] linda. The linda was released with a [place] blade. There was thickening and nodularity to [...] clean and elective. Brice Oliva D.O. Normal [facility] Comment on above: Result Comment: Elec tronically Signed By: Brice Oliva DO\.br\Date and Time Signed: 06/07/23 17:44 EST Outpatient Surgery Discharge Instructionon 06-07-2023 Outpatient Surgery Discharge Instruction [place] [id number] Patient Discharge Instructions PERSON INFORMATION Name: VIRGEN [...] Salazar You may receive a survey from [employer] asking you to rate your care experience. Your feedback is important and will help us understand what we do well and how we can improve the quality of care we provide to you, your loved ones and our community. It?s an honor to serve you. Thank you for choosing [facility] HERE ARE THE MEDICATION CHANGES THAT OCCURRED DURING YOUR HOSPITAL STAY New Medications [facility] #[id number], [address], [place] [id number], [phone] ascorbic acid (Vitamin C 500 mg oral tablet, chewable) 1 Tablets Chewed every day for 50 Days. Refills: 0. tramadol (traMADOL 50 mg Tab) 1 Tablets By Mouth every 4 hours as needed for pain. g56.02. Refills: 0. Medications to Continue Taking That Have Changed [facility] #[id number], [address], [place] [phone], [phone] START: naproxen (naproxen 500 mg Tab) 1 [...] needed for arthritis. PATIENT EDUCATION INFORMATION Instructions: [place], [place] [facility] CARPAL TUNNEL RELEASE INSTRUCTIONS [...] resume sports. (more content not included)... Normal [facility] Patient Education - Texton 1 08-07-2022 Patient Education - Text [place], [place] [facility] CARPAL TUNNEL RELEASE INSTRUCTIONS [...] to resolve. Brice Oliva, DO [facility] [address] [place] [address] Reviewed: [address] [facility] [address] head/brain wo tami 04-12 CT head/brain wo [facility] Main [address] [address] [address] Scan Report Signed Patient: LatriciapaulMike Zelaya MR# : [id number] : 1955 Acct:[id number] Age/Sex: 67 / F ADM Date: 04/12/23 Loc: ER Room: Type: [facility] ER Attending Dr: Copies to: Sherwin Baker [...] Castaneda Jr., D.OAfshan04/12/2023 10:15 AM Dictation Location: [place] [address] Transcribed By: [facility] 04/12/23 1015 Dictated By: Mikal Castaneda Jr, DO 04/12/23 1005 Signed By: 04/12/23 1015 Normal [facility] ECG 12 lead ECGon 04-12-2023 ECG 12 lead ECG [facility] Main [place] [address] [place] [address] Electrocardiograph Report Signed Patient: Mike Gonzales MR# : [id number] : 1955 Acct:[id number] Age/Sex: 67 / F ADM Date: 04/12/23 Loc: ER Room: Type: [facility] ER Attending Dr: Ordering Provider: Sherwin Baker [...] was found Confirmed by SHERWIN BAKER DO ([id number]) on 04/12/2023 4:31:11 PM Referred By: Electronically Signed By:SHERWIN BAKER DO Transcribed By: MUS Signed By Sherwin Baker DO 04/12 1631 Normal [facility] PROF 14(COMP METB)on 023 Albumin [Mass/Vol] 3.2 g/dL Critically low 3.4-5.0 [facility] Comment on above: Performed By: #### T SH, CMP, T7, LIPID #### [facility] [address] [place] [address] [address] Danay De Los Santos Albumin/Globulin [Mass ratio] 1.0 {ratio} Normal [facility] [place] Comment on above: Performed By: #### T SH, CMP, T7, LIPID #### [facility] [place] [facility] [address] [place] [address] [address] Danay De Los Santos ALP [Catalytic activity/Vol] 92 U/L Normal 46-116 [facility] [place] Comment on above: Performed By: #### T SH, CMP, T7, LIPID #### [facility] [place] [facility] [address] [place], [place] [address] Dr. Danay De Los Santos ALT [Catalytic activity/Vol] 21 U/L Normal 14-59 [facility] [place] Comment on above: Performed By: #### T SH, CMP, T7, LIPID #### [facility] [place] [facility] [address] [place], [place] [address] Dr. Danay De Los Santos Anion gap [Moles/Vol] 13.2 mmol/L Normal [facility] Comment on above: Performed By: #### T SH, CMP, T7, LIPID #### [facility] [place] [facility] [address] [place] [address] [address] Danay De Los Santos AST [Catalytic activity/Vol] 14 U/L Critically low 15-37 [facility] [place] Comment on above: Performed By: #### T SH, CMP, T7, LIPID #### [facility] [place] [facility] [address] [place] [address] [address] Danay De Los Santos Bilirubin [Mass/Vol] 0.2 mg/dL Normal 0.2-1.0 [facility] [place] Comment on above: Performed By: #### T SH, CMP, T7, LIPID #### [facility] [place] [facility] [address] [place] [address] [address] Danay De Los Santos Calcium [Mass/Vol] 8.6 mg/dL Normal 8.5-10.1 [facility] Comment on above: Performed By: #### T SH, CMP, T7, LIPID #### [facility] [place] [facility] [address] [place] [address] Dr. Danay De Los Santos Chloride [Moles/Vol] 105 mmol/L Normal 98-107 [facility] [place] Comment on above: Performed By: #### T SH, CMP, T7, LIPID #### [facility] [place] [facility] [address] [place] [address] Dr. Danay De Los Santos CO2 [Moles/Vol] 27.9 mmol/L Normal 21.0-32.0 [facility] Comment on above: Performed By: #### T SH, CMP, T7, LIPID #### [facility] [place] [facility] [address] [place] [address] Dr. Danay De Los Santos Creatinine [Mass/Vol] 1.47 mg/dL Critically high 0.55-1.02 [facility] [place] Comment on above: Performed By: #### T SH, CMP, T7, LIPID #### [facility] [place] [facility] [address] [place] [address] Dr. Danay De Los Santos EGFR-AF GREEK 43 mL/min/1.73m2 Critically low >=60 [facility] [place] Comment on above: Performed By: #### T SH, CMP, T7, LIPID #### [facility] [place] [facility] [address] [place] [address] Dr. Danay De Los Santos EGFR-NON AF GREEK 35 mL/min/1.73m2 Critically low >=60 [facility] [place] Comment on above: Performed By: #### T SH, CMP, T7, LIPID #### [facility] [place] [facility] [address] [place] [address] [address] Danay De Los Santos Globulin (S) [Mass/Vol] 3.3 g/dL Normal [facility] [place] Comment on above: Performed By: #### T SH, CMP, T7, LIPID #### [facility] [place] [facility] [address] [place] [address] [address] Danay De Los Santos Glucose [Mass/Vol] 145 mg/dL Critically high 74-106 [facility] Comment on above: Performed By: #### T SH, CMP, T7, LIPID #### [facility] [place] [facility] [address] [place] [address] [address] Danay De Los Santos Potassium [Moles/Vol] 4.1 mmol/L Normal 3.5-5.1 [facility] [place] Comment on above: Performed By: #### T SH, CMP, T7, LIPID #### [facility] [place] [facility] [address] [place] [address] Dr. Danay De Los Santos Protein [Mass/Vol] 6.5 g/dL Normal 6.4-8.2 [facility] Comment on above: Performed By: #### T SH, CMP, T7, LIPID #### [facility] [place] [facility] [address] [place] [address] [address] Danay De Los Santos Sodium [Moles/Vol] 142 mmol/L Normal 136-145 [facility] Comment on above: Performed By: #### T SH, CMP, T7, LIPID #### [facility] [place] [facility] [address] [place] [address] [address] Danay De Los Santos Urea nitrogen [Mass/Vol] 22.0 mg/dL Critically high 7.0-18.0 [facility] [place] Comment on above: Performed By: #### T SH, CMP, T7, LIPID #### [facility] [place] [facility] [address] [place] [address] Dr. Danay De Los Santos Urea nitrogen/Creatinine [Mass ratio] 15.0 mg/mg Normal [facility] [place] Comment on above: Performed By: #### T SH, CMP, T7, LIPID #### [facility] [place] [facility] [address] [place] [address] Dr. Danay De Los Santos PROF CHEM 8 (BAS METB)on Anion gap [Moles/Vol] 12.1 mmol/L Normal [facility] Comment on above: Performed By: #### B MP #### [facility] [place] [facility] [address] [place] [address] [address] Danay De Los Santos Calcium [Mass/Vol] 8.8 mg/dL Normal 8.5-10.1 [facility] Comment on above: Performed By: #### B MP #### [facility] [place] [facility] [address] [place] [address] [address] Danay De Los Santos Chloride [Moles/Vol] 103 mmol/L Normal 98-107 [facility] [place] Comment on above: Performed By: #### B MP #### [facility] [place] [facility] [address] [place] [address] [address] Danay De Los Santos CO2 [Moles/Vol] 28.6 mmol/L Normal 21.0-32.0 [facility] Comment on above: Performed By: #### B MP #### [facility] [place] [facility] [address] [place] [address] [address] Danay De Los Santos Creatinine [Mass/Vol] 2.08 mg/dL Critically high 0.55-1.02 [facility] [place] Comment on above: Performed By: #### B MP #### [facility] [place] [facility] [address] [place] [address] [address] Danay De Los Santos EGFR-AF GREEK 29 mL/min/1.73m2 Critically low >=60 [facility] [place] Comment on above: Performed By: #### B MP #### [facility] [place] [facility] [address] [place] [address] [address] Danay De Los Santos EGFR-NON AF GREEK 24 mL/min/1.73m2 Critically low >=60 [facility] [place] Comment on above: Performed By: #### B MP #### [facility] [place] [facility] [address] [place] [address] [address] Danay De Los Santos Glucose [Mass/Vol] 259 mg/dL Critically high 74-106 [facility] Comment on above: Performed By: #### B MP #### [facility] [place] [facility] [address] [place] [address] [address] Danay De Los Santos Potassium [Moles/Vol] 4.7 mmol/L Normal 3.5-5.1 [facility] [facility] Comment on above: Performed By: #### B MP #### [facility] [address] [place] [address] Dr. Danay De Los Santos Sodium [Moles/Vol] 139 mmol/L Normal 136-145 [facility] Comment on above: Performed By: #### B MP #### [facility] [address] [place] [address] Dr. Danay De Los Santos Urea nitrogen [Mass/Vol] 27.0 mg/dL Critically high 7.0-18.0 [facility] Comment on above: Performed By: #### B MP #### [facility] [address] [place] [address] Dr. Danay De Los Santos Urea nitrogen/Creatinine [Mass ratio] 13.0 mg/mg Normal [facility] Comment on above: Performed By: #### B MP #### [facility] [address] [place] [address] Dr. Danay De Los Santos INSULINon 12-17-2022 Insulin 11.1 uIU/mL Normal 2.6-24.9 [facility] Comment on above: Performed By: #### I NSULIN #### [facility] [address] [place] [address] Dr. Danay De Los Santos BNPon 12-15-2022 Natriuretic peptide B (Bld) [Mass/Vol] 110.0 pg/mL Normal <=900.0 [facility] Comment on above: Performed By: #### T SH, CMP, T7, LIPID #### [facility] [address] [place] [address] Dr. Danay De Los Santos CBC AUTO DIFFon 12-15-2022 BASO # 0.1 103/ul Normal 0.0-0.1 [facility] Comment on above: Performed By: #### T SH, CMP, T7, LIPID #### [facility] [address] [place] [address] Dr. Danay De Los Santos Basophils/100 WBC (Bld) 0.5 % Normal 0.2-2.0 [facility] Comment on above: Performed By: #### T SH, CMP, T7, LIPID #### [facility] [address] [place] [address] Dr. Danay De Los Santos EO # 0.7 103/ul Normal 0.0-0.7 [facility] Comment on above: Performed By: #### T SH, CMP, T7, LIPID #### [facility] [address] [place] [address] Dr. Danay De Los Santos Eosinophils/100 WBC (Bld) 6.0 % Normal 0.9-7.0 [facility] Comment on above: Performed By: #### T SH, CMP, T7, LIPID #### [facility] [address] [place] [address] Dr. Danay De Los Santos Erythrocyte distribution width (RBC) [Ratio] 15.6 % Critically high 11.0-15.0 [facility] Comment on above: Performed By: #### T SH, CMP, T7, LIPID #### [facility] [address] [place] [address] Dr. Danay De Los Santos Hematocrit (Bld) [Volume fraction] 40.2 % Normal 36.0-48.0 [facility] Comment on above: Performed By: #### T SH, CMP, T7, LIPID #### [facility] [address] [place] [address] Dr. Danay De Los Santos Hemoglobin (Bld) [Mass/Vol] 12.6 g/dL Normal 12.0-16.0 [facility] Comment on above: Performed By: #### T SH, CMP, T7, LIPID #### [facility] [address] [place] [address] Dr. Danay De Los Santos IG # 0.06 10e3/ul Critically high 0.00-0.03 [facility] Comment on above: Performed By: #### T SH, CMP, T7, LIPID #### [facility] [address] [place] [address] Dr. Danay De Los Santos IG % 0.5 % Normal 0.0-0.5 [facility] Comment on above: Performed By: #### T SH, CMP, T7, LIPID #### [facility] [address] [address] [address] Danay De Los Santos LYMPH # 3.2 103/ul Normal 1.2-3.8 [facility] Comment on above: Performed By: #### T SH, CMP, T7, LIPID #### [facility] [address] [place] [address] Dr. Danay D eLos Santos Lymphocytes/100 WBC (Bld) 28.9 % Normal 20.5-60.0 [facility] Comment on above: Performed By: #### T SH, CMP, T7, LIPID #### [facility] [address] [address] [address] Danay De Los Santos MANUAL DIFF REQ NO Normal [facility] Comment on above: Performed By: #### T SH, CMP, T7, LIPID #### [facility] [address] [place] [address] Dr. Danay De Los Santos MCH (RBC) [Entitic mass] 27.3 pg Normal 26.7-34.0 [facility] Comment on above: Performed By: #### T SH, CMP, T7, LIPID #### [facility] [address] [place] [address] Dr. Danay De Los Santos MCHC (RBC) [Mass/Vol] 31.3 g/dL Normal 29.9-35.2 [facility] Comment on above: Performed By: #### T SH, CMP, T7, LIPID #### [facility] [address] [place] [address] Dr. Danay De Los Santos MCV (RBC) [Entitic vol] 87.2 fL Normal 81.0-99.0 [facility] Comment on above: Performed By: #### T SH, CMP, T7, LIPID #### [facility] [address] [place] [address] Dr. Danay De Los Santos MONO # 0.6 103/ul Normal 0.3-0.8 [facility] Comment on above: Performed By: #### T SH, CMP, T7, LIPID #### [facility] [address] [place] [address] Dr. Danay De Los Santos Monocytes/100 WBC (Bld) 5.7 % Normal 1.7-12.0 [facility] Comment on above: Performed By: #### T SH, CMP, T7, LIPID #### [facility] [address] [place] [address] Dr. Danay De Los Santos NEUT # 6.4 103/ul Normal 1.4-6.5 [facility] Comment on above: Performed By: #### T SH, CMP, T7, LIPID #### [facility] [address] [place] [address] Dr. Danay De Los Santos Neutrophils/100 WBC (Bld) 58.4 % Normal 43.0-75.0 [facility] Comment on above: Performed By: #### T SH, CMP, T7, LIPID #### [facility] [address] [place] [address] Dr. Danay De Los Santos Platelet mean volume (Bld) [Entitic vol] 10.6 fL Normal 9.5-13.5 [facility] Comment on above: Performed By: #### T SH, CMP, T7, LIPID #### [facility] [address] [place] [address] Dr. Danay De Los Santos PLT 251 103/ul Normal 150-450 [facility] Comment on above: Performed By: #### T SH, CMP, T7, LIPID #### [facility] [address] [place] [address] Dr. Danay De Los Santos RBC 4.61 106/ul Normal 4.20-5.40 [facility] Comment on above: Performed By: #### T SH, CMP, T7, LIPID #### [facility] [address] [place] [address] Dr. Danay De Los Santos WBC 10.9 103/ul Normal 4.0-11.0 [facility] Comment on above: Performed By: #### T SH, CMP, T7, LIPID #### [facility] [address] [place] [address] Dr. Danay De Los Santos FREE THYROXINE INDEX T7on FTI 2.87 Normal 1.30-4.50 [facility] Comment on above: Performed By: #### T SH, CMP, T7, LIPID #### [facility] [address] [address] [address] Danay De Los Santos T3U 35.0 % Normal 30.0-39.0 [facility] Comment on above: Performed By: #### T SH, CMP, T7, LIPID #### [facility] [address] [address] [address] Danay De Los Santos T4 [Mass/Vol] 8.20 ug/dL Normal 4.80-13.90 [facility] Comment on above: Performed By: #### T SH, CMP, T7, LIPID #### [facility] [address] [address] [address] Danay De Los Santos GLYCOHEMOGLOBIN A1Con 2022 ADA RECOMMENDATION SEE BELOW Normal [facility] Comment on above: Result Comment: ADA RECOMMENDED LIMIT 4.0 - 6.0 ADA THERAPEUTIC TARGET < 7.0 ACTION SUGGESTED > 7.0 Performed By: #### A 1C #### [facility] [address] [address] [address] Danay De Los Santos Glucose [Mass/Vol] 203 mg/dL Normal [facility] Comment on above: Performed By: #### A 1C #### [facility] [address] [address] [address] Danay De Los Santos HbA1c (Bld) [Mass fraction] 8.7 % Critically high 4.5-6.2 [facility] Comment on above: Performed By: #### A 1C #### [facility] [address] [address] [address] Danay De Los Santos IRONon 12-15-2022 Iron [Mass/Vol] 39.0 ug/dL Critically low 50.0-170.0 [facility] Comment on above: Performed By: #### T SH, CMP, T7, LIPID #### [facility] [address] [place] [address] Dr. Danay De Los Santos LIPID PROFILEon 12-15-2022 CHOL-HDL RATIO NORM SEE BELOW Normal [facility] Comment on above: Result Comment: 3.3 - 4.4 LOW RISK 4.4 - 7.1 AVERAGE RISK 7.1 - 11.0 MODERATE RISK >11.0 HIGH RISK Performed By: #### T SH, CMP, T7, LIPID #### [facility] [address] [address] [address] Danay De Los Santos Cholesterol [Mass/Vol] 123 mg/dL Normal <=200 [facility] Comment on above: Performed By: #### T SH, CMP, T7, LIPID #### [facility] [address] [address] [address] Danay De Los Santos Cholesterol in HDL [Mass/Vol] 40 mg/dL Normal 40-60 [facility] Comment on above: Performed By: #### T SH, CMP, T7, LIPID #### [facility] [address] [address] [address] Danay De Los Santos Cholesterol in LDL [Mass/Vol] 70.4 mg/dL Normal [facility] Comment on above: Performed By: #### T SH, CMP, T7, LIPID #### [facility] [address] [address] [address] Danay De Los Santos Cholesterol.total/Cho lesterol in HDL [Mass ratio] 3.1 {ratio} Normal [facility] Comment on above: Performed By: #### T SH, CMP, T7, LIPID #### [facility] [address] [address] [address] Danay De Los Santos HDL NORMAL > or = 60 mg/dl - LO W CARDIOVASCULAR RISK <40 mg/dl - HIGH CARDIOVASCULAR RISK Normal [facility] Comment on above: Performed By: #### T SH, CMP, T7, LIPID #### [facility] [address] [address] [address] Danay De Los Santos LDL CALC NORMAL SEE BELOW Normal [facility] Comment on above: Result Comment: <100 mg/dl OPTIMAL 100 - 129 mg/dl NEAR OR ABOVE OPTIMAL 130 - 159 mg/dl BORDERLINE HIGH 160 - 189 mg/dl HIGH >190 mg/dl VERY HIGH Performed By: #### T SH, CMP, T7, LIPID #### [facility] [address] [address] [address] Danay De Los Santos Triglyceride [Mass/Vol] 63 mg/dL Normal <=150 [facility] Comment on above: Performed By: #### T SH, CMP, T7, LIPID #### [facility] [address] [place] [address] Dr. Danay De Los Santos VLDL CALC 12.6 mg/dL Normal [facility] Comment on above: Performed By: #### T SH, CMP, T7, LIPID #### [facility] [address] [place] [address] Dr. Danay De Los Santos PROF 14(COMP METB)on 023 Albumin [Mass/Vol] 3.3 g/dL Critically low 3.4-5.0 [facility] Comment on above: Performed By: #### T SH, CMP, T7, LIPID #### [facility] [address] [place] [address] Dr. Danay De Los Santos Albumin/Globulin [Mass ratio] 1.0 {ratio} Normal [facility] Comment on above: Performed By: #### T SH, CMP, T7, LIPID #### [facility] [address] [place] [address] Dr. Danay De Los Santos ALP [Catalytic activity/Vol] 94 U/L Normal 46-116 [facility] Comment on above: Performed By: #### T SH, CMP, T7, LIPID #### [facility] [address] [place] [address] Dr. Danay De Los Santos ALT [Catalytic activity/Vol] 17 U/L Normal 14-59 [facility] Comment on above: Performed By: #### T SH, CMP, T7, LIPID #### [facility] [address] [place] [address] Dr. Danay De Los Santos Anion gap [Moles/Vol] 14.3 mmol/L Normal [facility] Comment on above: Performed By: #### T SH, CMP, T7, LIPID #### [facility] [address] [place] [address] Dr. Danay De Los Santos AST [Catalytic activity/Vol] 11 U/L Critically low 15-37 [facility] Comment on above: Performed By: #### T SH, CMP, T7, LIPID #### [facility] [address] [place] [address] Dr. Danay De Los Santos Bilirubin [Mass/Vol] 0.3 mg/dL Normal 0.2-1.0 [facility] Comment on above: Performed By: #### T SH, CMP, T7, LIPID #### [facility] [address] [address] [address] Danay De Los Santos Calcium [Mass/Vol] 9.1 mg/dL Normal 8.5-10.1 [facility] Comment on above: Performed By: #### T SH, CMP, T7, LIPID #### [facility] [address] [address] [address] Danay De Los Santos Chloride [Moles/Vol] 105 mmol/L Normal 98-107 [facility] Comment on above: Performed By: #### T SH, CMP, T7, LIPID #### [facility] [address] [place] [address] Dr. Danay De Los Santos CO2 [Moles/Vol] 29.3 mmol/L Normal 21.0-32.0 [facility] Comment on above: Performed By: #### T SH, CMP, T7, LIPID #### [facility] [address] [place] [address] Dr. Danay De Los Santos Creatinine [Mass/Vol] 1.53 mg/dL Critically high 0.55-1.02 [facility] Comment on above: Performed By: #### T SH, CMP, T7, LIPID #### [facility] [address] [place] [address] Dr. Danay De Los Santos EGFR-AF GREEK 41 mL/min/1.73m2 Critically low >=60 [facility] Comment on above: Performed By: #### T SH, CMP, T7, LIPID #### [facility] [address] [place] [address] Dr. Danay De Los Santos EGFR-NON AF GREEK 34 mL/min/1.73m2 Critically low >=60 [facility] Comment on above: Performed By: #### T SH, CMP, T7, LIPID #### [facility] [address] [address] [address] Danay De Los Santos Globulin (S) [Mass/Vol] 3.4 g/dL Normal [facility] Comment on above: Performed By: #### T SH, CMP, T7, LIPID #### [facility] [address] [address] [address] Danay De Los Santos Glucose [Mass/Vol] 192 mg/dL Critically high 74-106 [facility] Comment on above: Performed By: #### T SH, CMP, T7, LIPID #### [facility] [address] [address] [address] Danay De Los Santos Potassium [Moles/Vol] 4.6 mmol/L Normal 3.5-5.1 [facility] Comment on above: Performed By: #### T SH, CMP, T7, LIPID #### [facility] [address] [place] [address] Dr. Danay De Los Santos Protein [Mass/Vol] 6.7 g/dL Normal 6.4-8.2 [facility] Comment on above: Performed By: #### T SH, CMP, T7, LIPID #### [facility] [address] [place] [address] Dr. Danay De Los Santos Sodium [Moles/Vol] 144 mmol/L Normal 136-145 [facility] Comment on above: Performed By: #### T SH, CMP, T7, LIPID #### [facility] [address] [place] [address] Dr. Danay De Los Santos Urea nitrogen [Mass/Vol] 25.0 mg/dL Critically high 7.0-18.0 [facility] Comment on above: Performed By: #### T SH, CMP, T7, LIPID #### [facility] [address] [place] [address] Dr. Danay De Los Santos Urea nitrogen/Creatinine [Mass ratio] 16.3 mg/mg Normal [facility] Comment on above: Performed By: #### T SH, CMP, T7, LIPID #### [facility] [address] [place] [address] Dr. Danay De Los Santos TSHon 12-15-2022 TSH 2.181 uIU/mL Normal 0.358-3.740 [facility] Comment on above: Performed By: #### T SH, CMP, T7, LIPID #### [facility] [address] [place], [place] [address] Dr. Danay De Los Santos VITAMIN D 25 OHon 12-15-2022 VIT D 25-OH 32.9 ng/mL Normal [facility] Comment on above: Performed By: #### T SH, CMP, T7, LIPID #### [facility] [address] [place], [place] [address] Dr. Danay De Los Santos VIT D RANGES SEE BELOW Normal [facility] Comment on above: Result Comment: <20 ng/mL Vit D deficient 20 - <30 ng/mL Vit D insufficient 30 - 100 ng/mL Vit D sufficient >100 ng/mL Potential Toxicity Performed By: #### T SH, CMP, T7, LIPID #### [facility] [address] [place], [place] [address] Dr. Danay De Los Santos US ROEL [...] by: MORIAH MORRISON Date: 2022-12-01 12:54 Normal [facility] XR Hand Complete Left*on XR Hand Complete Left* CLINICAL HISTORY: Fall with left hand stiffness. COMPARISON: None. RESULT: No distinct acute fracture. No dislocation. Underlying decreased bone mineral density. Mild to moderate scattered degenerative changes. Soft tissue edema. IMPRESSION: No acute osseous findings radiographically. Report reported and signed by Home Lockwood on 08/24/2022 1108 Normal [facility] XR Spine Cervical Complete*o n 08-24-2022 XR [...] by Home Lockwood on 08/24/2022 1109 Normal [facility] XR HAND RIMA MIN 3Von 023 XR HAND RIMA MIN 3V EXAM: XR HAND RIMA PR N 3V HISTORY: Pain following fall COMPARISON: None. TECHNIQUE: 3 views of each hand FINDINGS: No visualized fracture, dislocation, subluxation or osseous lesion. Age-related joint space changes. No gross visualized soft tissue edema. IMPRESSION: No visualized abnormality Electronically authenticated by: BRIANNA KU Date: 2022-08-06 20:28 Normal [facility] XR HIP RT 2 3V W PELVISon [...] BRIANNA KU Date: 2022-08-06 20:29 Normal [facility] XR SHOULDER RT 2V or >on XR [...] BRIANNA KU Date: 2022-08-06 20:21 Normal [facility] XR Foot Complete Left*on XR Foot Complete Left* COMPARISON: None available HISTORY: Second and third digit pain after a fall TECHNIQUE: AP, lateral and oblique views of the foot obtained. FINDINGS: No acute fracture or dislocation. Joint spaces are preserved. Soft tissues are within normal limits. IMPRESSION: No acute osseous abnormality. Report reported and signed by Drew Looney on 08/04/2022 1044 Normal [facility] XR Knee Complete Left*on XR Knee Complete [...] by Drew Looney on 08/04/2022 1046 Normal [facility] BRAIN WO CONon MRI BRAIN WO CON EXAMINATION: MRI BRAIN [...] BRIANNA GREEN Date: 2022-07-02 14:48 Normal [facility] INSULINon 05-28-2022 Insulin 13.4 uIU/mL Normal 2.6-24.9 [facility] Comment on above: Performed By: #### I NSULIN #### [facility] [address] [address] [address] Danay De Los Santos CBC AUTO DIFFon 05-26-2022 BASO # 0.1 103/ul Normal 0.0-0.1 [facility] Comment on above: Performed By: #### C BC #### [facility] [address] [address] [address] Danay De Los Santos Basophils/100 WBC (Bld) 0.8 % Normal 0.2-2.0 [facility] Comment on above: Performed By: #### C BC #### [facility] [address] [place] [address] Dr. Danay De Los Santos EO # 0.6 103/ul Normal 0.0-0.7 [facility] Comment on above: Performed By: #### C BC #### [facility] [address] [place] [address] Dr. Danay De Los Santos Eosinophils/100 WBC (Bld) 5.1 % Normal 0.9-7.0 [facility] Comment on above: Performed By: #### C BC #### [facility] [address] [place] [address] Dr. Danay De Los Santos Erythrocyte distribution width (RBC) [Ratio] 14.7 % Normal 11.0-15.0 [facility] Comment on above: Performed By: #### C BC #### [facility] [address] [place] [address] Dr. Danay De Los Santos Hematocrit (Bld) [Volume fraction] 37.8 % Normal 36.0-48.0 [facility] Comment on above: Performed By: #### C BC #### [facility] [address] [place] [address] Dr. Danay De Los Santos Hemoglobin (Bld) [Mass/Vol] 12.3 g/dL Normal 12.0-16.0 [facility] Comment on above: Performed By: #### C BC #### [facility] [address] [place] [address] Dr. Danay De Los Santos IG # 0.05 10e3/ul Critically high 0.00-0.03 [facility] Comment on above: Performed By: #### C BC #### [facility] [address] [place] [address] Dr. Danay De Los Santos IG % 0.5 % Normal 0.0-0.5 [facility] Comment on above: Performed By: #### C BC #### [facility] [address] [place] [address] Dr. Danay De Los Santos LYMPH # 2.1 103/ul Normal 1.2-3.8 [facility] Comment on above: Performed By: #### C BC #### [facility] [address] [place] [address] Dr. Danay De Los Santos Lymphocytes/100 WBC (Bld) 19.1 % Critically low 20.5-60.0 [facility] Comment on above: Performed By: #### C BC #### [facility] [address] [place] [address] Dr. Danay De Los Santos MANUAL DIFF REQ NO Normal [facility] Comment on above: Performed By: #### C BC #### [facility] [address] [place] [address] Dr. Danay De Los Santos MCH (RBC) [Entitic mass] 30.8 pg Normal 26.7-34.0 [facility] Comment on above: Performed By: #### C BC #### [facility] [address] [place] [address] Dr. Danay De Los Santos MCHC (RBC) [Mass/Vol] 32.5 g/dL Normal 29.9-35.2 [facility] Comment on above: Performed By: #### C BC #### [facility] [address] [place] [address] Dr. Danay De Los Santos MCV (RBC) [Entitic vol] 94.5 fL Normal 81.0-99.0 [facility] Comment on above: Performed By: #### C BC #### [facility] [address] [place] [address] Dr. Danay De Los Santos MONO # 0.6 103/ul Normal 0.3-0.8 [facility] Comment on above: Performed By: #### C BC #### [facility] [address] [place] [address] Dr. Danay De Los Santos Monocytes/100 WBC (Bld) 5.1 % Normal 1.7-12.0 [facility] Comment on above: Performed By: #### C BC #### [facility] [address] [place] [address] Dr. Danay De Los Santos NEUT # 7.5 103/ul Critically high 1.4-6.5 [facility] Comment on above: Performed By: #### C BC #### [facility] [address] [address] [address] Danay De Los Santos Neutrophils/100 WBC (Bld) 69.4 % Normal 43.0-75.0 [facility] Comment on above: Performed By: #### C BC #### [facility] [address] [address] [address] Danay De Los Santos Platelet mean volume (Bld) [Entitic vol] 10.9 fL Normal 9.5-13.5 [facility] Comment on above: Performed By: #### C BC #### [facility] [address] [address] [address] Danay De Los Santos PLT 235 103/ul Normal 150-450 [facility] Comment on above: Performed By: #### C BC #### [facility] [address] [address] [address] Danay De Los Santos RBC 4.00 106/ul Critically low 4.20-5.40 [facility] Comment on above: Performed By: #### C BC #### [facility] [address] [address] [address] Danay De Los Santos WBC 10.8 103/ul Normal 4.0-11.0 [facility] Comment on above: Performed By: #### C BC #### [facility] [address] [address] [address] Danay De Los Santos FREE THYROXINE INDEX T7on FTI 1.83 Normal 1.30-4.50 [facility] Comment on above: Performed By: #### T SH, CMP, T7, LIPID #### [facility] [address] [address] [address] Danay De Los Santos T3U 31.0 % Normal 30.0-39.0 [facility] Comment on above: Performed By: #### T SH, CMP, T7, LIPID #### [facility] [address] [address] [address] Danay De Los Santos T4 [Mass/Vol] 5.90 ug/dL Normal 4.80-13.90 [facility] Comment on above: Performed By: #### T SH, CMP, T7, LIPID #### [facility] [address] [address] [address] Danay De Los Santos GLYCOHEMOGLOBIN A1Con 2021 ADA RECOMMENDATION SEE BELOW Normal [facility] Comment on above: Result Comment: ADA RECOMMENDED LIMIT 4.0 - 6.0 ADA THERAPEUTIC TARGET < 7.0 ACTION SUGGESTED > 7.0 Performed By: #### A 1C #### [facility] [address] [place] [address] Dr. Danay De Los Santos Glucose [Mass/Vol] 186 mg/dL Normal [facility] Comment on above: Performed By: #### A 1C #### [facility] [address] [place] [address] Dr. Danay De Los Santos HbA1c (Bld) [Mass fraction] 8.1 % Critically high 4.5-6.2 [facility] Comment on above: Performed By: #### A 1C #### [facility] [address] [place] [address] Dr. Danay De Los Santos IRONon 05-26-2022 Iron [Mass/Vol] 61.0 ug/dL Normal 50.0-170.0 [facility] Comment on above: Performed By: #### T SH, CMP, T7, LIPID #### [facility] [address] [place] [address] Dr. Danay De Los Santos LIPID PROFILEon 05-26-2022 CHOL-HDL RATIO NORM SEE BELOW Normal [facility] Comment on above: Result Comment: 3.3 - 4.4 LOW RISK 4.4 - 7.1 AVERAGE RISK 7.1 - 11.0 MODERATE RISK >11.0 HIGH RISK Performed By: #### T SH, CMP, T7, LIPID #### [facility] [address] [place] [address] Dr. Danay De Los Santos Cholesterol [Mass/Vol] 130 mg/dL Normal <=200 [facility] Comment on above: Performed By: #### T SH, CMP, T7, LIPID #### [facility] [address] [place] [address] Dr. Danay De Los Santos Cholesterol in HDL [Mass/Vol] 40 mg/dL Normal 40-60 [facility] Comment on above: Performed By: #### T SH, CMP, T7, LIPID #### [facility] [address] [address] [address] Danay De Los Santos Cholesterol in LDL [Mass/Vol] 75.8 mg/dL Normal [facility] Comment on above: Performed By: #### T SH, CMP, T7, LIPID #### [facility] [address] [address] [address] Danay De Los Santos Cholesterol.total/Cho lesterol in HDL [Mass ratio] 3.3 {ratio} Normal [facility] Comment on above: Performed By: #### T SH, CMP, T7, LIPID #### [facility] [address] [address] [address] Danay De Los Santos HDL NORMAL > or = 60 mg/dl - LO W CARDIOVASCULAR RISK <40 mg/dl - HIGH CARDIOVASCULAR RISK Normal [facility] Comment on above: Performed By: #### T SH, CMP, T7, LIPID #### [facility] [address] [address] [address] Danay De Los Santos LDL CALC NORMAL SEE BELOW Normal [facility] Comment on above: Result Comment: <100 mg/dl OPTIMAL 100 - 129 mg/dl NEAR OR ABOVE OPTIMAL 130 - 159 mg/dl BORDERLINE HIGH 160 - 189 mg/dl HIGH >190 mg/dl VERY HIGH Performed By: #### T SH, CMP, T7, LIPID #### [facility] [address] [address] [address] Danay De Los Santos Triglyceride [Mass/Vol] 71 mg/dL Normal <=150 [facility] Comment on above: Performed By: #### T SH, CMP, T7, LIPID #### [facility] [address] [address] [address] Danay De Los Santos VLDL CALC 14.2 mg/dL Normal [facility] Comment on above: Performed By: #### T SH, CMP, T7, LIPID #### [facility] [address] [address] [address] Danay De Los Santos PROF 14(COMP METB)on 022 Albumin [Mass/Vol] 3.4 g/dL Normal 3.4-5.0 [facility] Comment on above: Performed By: #### T SH, CMP, T7, LIPID #### [facility] [address] [address] [address] Danay De Los Santos Albumin/Globulin [Mass ratio] 1.0 {ratio} Normal [facility] Comment on above: Performed By: #### T SH, CMP, T7, LIPID #### [facility] [address] [address] [address] Danay De Los Santos ALP [Catalytic activity/Vol] 92 U/L Normal 46-116 [facility] Comment on above: Performed By: #### T SH, CMP, T7, LIPID #### [facility] [address] [place] [address] Dr. Danay De Los Santos ALT [Catalytic activity/Vol] 15 U/L Normal 14-59 [facility] Comment on above: Performed By: #### T SH, CMP, T7, LIPID #### [facility] [address] [address] [address] Danay De Los Santos Anion gap [Moles/Vol] 10.4 mmol/L Normal [facility] Comment on above: Performed By: #### T SH, CMP, T7, LIPID #### [facility] [address] [address] [address] Danay De Los Santos AST [Catalytic activity/Vol] 12 U/L Critically low 15-37 [facility] Comment on above: Performed By: #### T SH, CMP, T7, LIPID #### [facility] [address] [place] [address] Dr. Danay De Los Santos Bilirubin [Mass/Vol] 0.4 mg/dL Normal 0.2-1.0 [facility] Comment on above: Performed By: #### T SH, CMP, T7, LIPID #### [facility] [address] [address] [address] Danay De Los Santos Calcium [Mass/Vol] 8.7 mg/dL Normal 8.5-10.1 [facility] Comment on above: Performed By: #### T SH, CMP, T7, LIPID #### [facility] [address] [place] [address] Dr. Danay De Los Santos Chloride [Moles/Vol] 107 mmol/L Normal 98-107 [facility] Comment on above: Performed By: #### T SH, CMP, T7, LIPID #### [facility] [address] [place] [address] Dr. Danay De Los Santos CO2 [Moles/Vol] 28.9 mmol/L Normal 21.0-32.0 [facility] Comment on above: Performed By: #### T SH, CMP, T7, LIPID #### [facility] [address] [place] [address] Dr. Danay De Los Santos Creatinine [Mass/Vol] 1.18 mg/dL Critically high 0.55-1.02 [facility] Comment on above: Performed By: #### T SH, CMP, T7, LIPID #### [facility] [address] [place] [address] Dr. Danay De Los Santos EGFR-AF GREEK 55 mL/min/1.73m2 Critically low >=60 [facility] Comment on above: Performed By: #### T SH, CMP, T7, LIPID #### [facility] [address] [place] [address] Dr. Danay De Los Santos EGFR-NON AF GREEK 46 mL/min/1.73m2 Critically low >=60 [facility] Comment on above: Performed By: #### T SH, CMP, T7, LIPID #### [facility] [address] [place] [address] Dr. Danay De Los Santos Globulin (S) [Mass/Vol] 3.3 g/dL Normal [facility] Comment on above: Performed By: #### T SH, CMP, T7, LIPID #### [facility] [address] [place] [address] Dr. Danay De Los Santos Glucose [Mass/Vol] 153 mg/dL Critically high 74-106 [facility] Comment on above: Performed By: #### T SH, CMP, T7, LIPID #### [facility] [address] [place] [address] Dr. Danay De Los Santos Potassium [Moles/Vol] 4.3 mmol/L Normal 3.5-5.1 [facility] Comment on above: Performed By: #### T SH, CMP, T7, LIPID #### [facility] [address] [address] [address] Danay D eLos Santos Protein [Mass/Vol] 6.7 g/dL Normal 6.4-8.2 [facility] Comment on above: Performed By: #### T SH, CMP, T7, LIPID #### [facility] [address] [address] [address] Danay De Los Santos Sodium [Moles/Vol] 142 mmol/L Normal 136-145 [facility] Comment on above: Performed By: #### T SH, CMP, T7, LIPID #### [facility] [address] [address] [address] Danay De Los Santos Urea nitrogen [Mass/Vol] 16.0 mg/dL Normal 7.0-18.0 [facility] Comment on above: Performed By: #### T SH, CMP, T7, LIPID #### [facility] [address] [address] [address] Danay De Los Santos Urea nitrogen/Creatinine [Mass ratio] 13.6 mg/mg Normal [facility] Comment on above: Performed By: #### T SH, CMP, T7, LIPID #### [facility] [address] [place] [address] Dr. Danay De Los Santos TSHon 05-26-2022 TSH 1.443 uIU/mL Normal 0.358-3.740 [facility] Comment on above: Performed By: #### T SH, CMP, T7, LIPID #### [facility] [address] [place] [address] Dr. Danay De Los Santos XR DEXA [...] by: BECKY OWENS Date: 2022-04-05 12:11 Normal [facility] GLYCOHEMOGLOBIN A1Con 2021 ADA RECOMMENDATION SEE BELOW Normal [facility] Comment on above: Result Comment: ADA RECOMMENDED LIMIT 4.0 - 6.0 ADA THERAPEUTIC TARGET < 7.0 ACTION SUGGESTED > 7.0 Performed By: #### T SH, CMP, T7, LIPID #### [facility] [address] [address] [address] Danay De Los Santos Glucose [Mass/Vol] 174 mg/dL Normal [facility] Comment on above: Performed By: #### T SH, CMP, T7, LIPID #### [facility] [address] [address] [address] Danay De Los Santos HbA1c (Bld) [Mass fraction] 7.7 % Critically high 4.5-6.2 [facility] Comment on above: Performed By: #### T SH, CMP, T7, LIPID #### [facility] [address] [address] [address] Danay De Los Santos MG MAMM SCREEN 3D RIMA CADon 02-14-2022 MG MAMM SCREEN 3D RIMA CAD Patient: VIRGEN GONZALES Exam Date: 02/14/2022 : 1955 Gender:F Ordering : AGGIE DAVIS [facility] Admission #: [id number] Family : Order #: [id number] CLICK HERE TO VIEW EXAM RADIOLOGY REPORT [...] unknown cancer at age 24. LOCATION: The [facility] BREAST COMPOSITION: Heterogeneously dense,which may obscure small [...] M.D. on 02/14/2022 at 16:12 Normal [facility] CARDIAC STRESS/REST INJE CTIONon 01-27-2020 [facility] CARDIAC STRESS/REST INJECTION Patient Name: VIRGEN GONZALES STUDY: MYOCARDIAL PERFUSION STRESS TEST WITH LEXISCAN Performing facility: [facility], [address] [place] [address], [address], [address] Provider: Catarino Franks MD, [facility] PCP: Dr. Nicola Granger Supervising provider: Catarino Franks MD, [facility] INDICATION: Abnormal EKG; Pre-operative risk assessment for Knee surgery scheduled at unknown on unknown. RBBB HISTORY: Gender: F; Age: 64 y/o ; Height: 152.4 cm; Weight: 77.6072162 kg. High Cholesterol; Abnormal EKG; Diabetes; Family HX CAD; HTN; Smoking COMPARISON: No comparison. ACCESSION NUMBER(S): [id number]; [id number]; [id number] ORDERING CLINICIAN: CATARINO FRANKS TECHNIQUE: ONE DAY [...] comparison. Electronically signed by: CATARINO FRANKS MD [facility] Vital Signs Date Time Vital Sign Value Performing Clinician Facility 08-27-2023 15:38-0500 Body height 149.9 cm [employer] Phone: [facility] [employer] 08-27-2023 15:38-0500 Body mass index (BMI) [Ratio] 39.59 kg/m2 [employer] Phone: [facility] [employer] 08-27-2023 15:38-0500 Body temperature 97.39 [degF] [employer] Phone: [facility] [employer] 08-27-2023 15:38-0500 Body weight 88.91 kg [employer] Phone: [facility] [employer] 06-07-2023 08:27-0500 Heart rate 77 /min [facility]verse[facility] 06-07-2023 08:27-0500 SaO2% (BldA) [Mass fraction] 98 % Brice Oliva [facility] 06-07-2023 08:26-0500 Respiratory rate 20 /min Brice Oliva [facility] 06-07-2023 08:26-0500 Blood Pressure Location Brice Oliva [facility] 06-07-2023 08:26-0500 Diastolic blood pressure 64 mm[Hg] Brice Oliva [facility] 06-07-2023 08:26-0500 Mean blood pressure 77 mm[Hg] Brice Oliva [facility] 06-07-2023 08:26-0500 Systolic blood pressure 102 mm[Hg] Brice Oliva [facility] 06-07-2023 08:25-0500 Body temperature 97.88 [degF] Brice Oliva [facility] 06-07-2023 08:05-0500 Blood Pressure Location Brice Oliva [facility] 06-07-2023 08:05-0500 Diastolic blood pressure 59 mm[Hg] Brice Oliva [facility] 06-07-2023 08:05-0500 Heart rate 73 /min Brice Oliva [facility] 06-07-2023 08:05-0500 Respiratory rate 20 /min Brice Oliva [facility] 06-07-2023 08:05-0500 SaO2% (BldA) [Mass fraction] 95 % Brice Oliva [facility] 06-07-2023 08:05-0500 Systolic blood pressure 114 mm[Hg] Brice Oliva [facility] 06-07-2023 07:30-0500 Blood Pressure Location Brice Oliva [facility] 06-07-2023 07:30-0500 Diastolic blood pressure 70 mm[Hg] Brice Oliva [facility] 06-07-2023 07:30-0500 Heart rate 70 /min Brice Oliva [facility] 06-07-2023 07:30-0500 Respiratory rate 20 /min Brice Oliva [facility] 06-07-2023 07:30-0500 SaO2% (BldA) [Mass fraction] 96 % Brice Oliva [facility] 06-07-2023 07:30-0500 Systolic blood pressure 114 mm[Hg] Brice Oliva [facility] [facility] 06-07-2023 06:52-0500 Mean blood pressure 76 mm[Hg] Brice Oliva [facility] [facility] 06-07-2023 06:49-0500 Body temperature 97.88 [degF] Brice Oliva [facility] [facility] 06-07-2023 06:49-0500 Mean blood pressure 79 mm[Hg] Brice Oliva [facility] Encounters Encounter Date Encounter Type Care Provider Facility Start: 12-31-2023 End: 12-31-2023 ambulatory BRICE OLIVA Not Available Start: 11-11-2023 ambulatory Brice Oliav Facility: [facility] Start: 10-29-2023 End: 10-29-2023 ambulatory BRICE OLIVA [...] Not Available Start: 08-22-2023 End: 08-22-2023 ambulatory [employer]C Aggienapoleon Davis Work Phone: [facility] Work Phone: Start: 08-22-2023 End: 08-22-2023 Discharged Recurring [employer] Aggie Davis Work Phone: [facility] [address] Start: 08-06-2023 End: 08-06-2023 ambulatory BRICE OLIVA Not Available Start: 07-23-2023 End: 07-23-2023 ambulatory BRICE OLIVA Not Available Start: 07-16-2023 End: 07-16-2023 ambulatory BRICE OLIVA Not Available Start: 06-18-2023 End: 06-18-2023 ambulatory BRICE OLIVA Not Available Start: 06-07-2023 End: 06-07-2023 ambulatory Brice Oliva Facility:[facility] Start: 06-07-2023 End: 06-07-2023 Admission to same day surgery center Brice Oliva [facility] Start: 04-12-2023 End: 04-12-2023 Emergency department patient visit Sherwin Baker Facility:[facility] Start: 12-26-2022 ambulatory AGGIE SUSAN Facility: [facility] Start: 12-20-2022 End: 12-21-2022 ambulatory AGGIE SUSAN Facility:[facility] Start: 12-15-2022 End: 12-16-2022 ambulatory AGGIE SUSAN Facility:[facility] Start: 12-01-2022 End: 12-02-2022 ambulatory AGGIE SUSAN Facility:[facility] Start: 12-01-2022 End: 12-01-2022 ambulatory AGGIE SUSAN Facility:[facility] Start: 08-06-2022 End: 08-06-2022 ambulatory AGGIE SUSAN Facility:[facility] Start: 07-02-2022 End: 07-03-2022 ambulatory AGGIE SUSAN Facility:[facility] Start: 05-26-2022 End: 05-27-2022 ambulatory AGGIE DAVIS Facility:[facility] Start: 04-05-2022 End: 04-06-2022 ambulatory AGGIE DAVIS Facility:[facility] Start: 03-25-2022 ambulatory AGGIE DAVIS Facility: [facility] Start: 03-15-2022 End: 03-16-2022 ambulatory AGGIE DAVIS Facility:[facility] Start: 02-14-2022 End: 02-15-2022 ambulatory AGGIE DAVIS Facility:[facility] Start: 11-09-2021 End: 11-09-2021 Patient encounter procedure Michele Jane [facility] Procedures Date Procedure Procedure Detail Performing Clinician Start: 08-27-2023 Arthrocentesis aspir &/inj major jt/bursa w/o Phi DESIR Work Phone: Start: 06-07-2023 Decompression of med pablito nerve Brice Oliva Start: 09-30-2020 Arthroscopy of knee Ronen Jane Start: 05-09-2016 Right little finger release A-1 linda Michele Jane Cholecystectomy Michele Jane History of tonsillectomy Ronen Jane Hysterectomy Michele Jane needle removed right foot Emilee Jane Operation on toenail Michele perez Release of trigger finger Emilee Saucedoy right carpel tunnel Michele dill right knee arthroscopy x2 Emilee reynaldo Jane Plan of Treatment Date Care Activity Detail Author Start: 06-01-2025 Pneumococcal Vaccine : 65+ Years (3 - PPSV23 or PCV20) Pneumococcal Vaccine: 65+ Years (3 - PPSV23 or PCV20) [facility] Start: 10-08-2023 End: 10-08-2023 Patient encounter procedure 10/08/2023 10:00 AM EDT Office Visit [facility] [address] [place] [address] Brice Oliva DO [address] [place] [address] [facility] Start: 1994 Screening for malign ant neoplasm of breast Mammogram [facility] Start: 1954 Screening for malign ant neoplasm of colon [facility] Healthcare Immunizations Immunization Date Immunization Notes Care Provider Fa cility 11-14-2020 SARS-CoV-2 (COVID-19 ) mRNA-1743 vaccine Michele Lewischiquita [facility] 04-18-2018 tetanus toxoid, redu soledad diphtheria toxoid, and acellular pertussis vaccine, adsorbed [employer] Aggie Davis Work Phone: [facility] Payers Date Payer Category Payer Worker's Compensation [id number] 2023 Self-pay [id number] 2022 Medicare [employer] MEDICARE ADVANTAGE [employer] MEDICARE [id number] 2022-Present [address] [address] [place] [address] [id number] 1959 Medicare [id number] 1959 Unknown [id number] 1955 Unknown [id number] 2.16.840.1.999160.3.579.2. 593 1954 Unknown [id number] 2.16.840.1.073524.3.579.2. 593 1954 Unknown [id number] 2.16.840.1.385406.3.579.2. 593 1954 Unknown [id number] 2.16.840.1.976353.3.579.2. 593 1954 Unknown [id number] 2.16.840.1.718176.3.579.2. 593 1954 Unknown [id number] 2.16.840.1.725648.3.579.2. 593 1954 Unknown [id number] 2.16.840.1.524747.3.579.2. 593 1954 Unknown [id number] 2.16.840.1.803403.3.579.2. 593 1954 Unknown [id number] 2.16.840.1.871193.3.579.2. 593 1954 Unknown [id number] 2.16.840.1.907102.3.579.2. 593 1954 Unknown [id number] 2.16.840.1.889407.3.579.2. 593 1954 Unknown [id number] 2.16.840.1.186408.3.579.2. 593 1954 Unknown [id number] 2.16.840.1.592611.3.579.2. 727 1954 Unknown [id number] 2.16.840.1.530046.3.579.2. 727 1954 Unknown [id number] 2.16.840.1.306021.3.579.2. 1259 1954 Unknown [id number] 2.16.840.1.983593.3.579.2. 1259 1954 Unknown [id number] 2.16.840.1.964506.3.579.2. 1259 1954 Unknown [id number] 2.16.840.1.656457.3.579.2. 1259 1954 Unknown [id number] 2.16.840.1.539267.3.579.2. 1259 1954 Unknown [id number] 2.16.840.1.711506.3.579.2. 1258 1954 Unknown [id number] 2.16.840.1.402749.3.579.2. 1258 1954 Unknown [id number] 2.16.840.1.351988.3.579.2. 1258 1954 Unknown [id number] 2.16.840.1.883215.3.579.2. 1258 1954 Unknown [id number] 2.16.840.1.280325.3.579.2. 1258 1954 Unknown [id number] 2.16.840.1.819371.3.579.2. 1258 1954 Unknown [id number] 2.16.840.1.741908.3.579.2. 1258 1954 Unknown [id number] 2.16.840.1.085619.3.579.2. 1258 1954 Unknown [id number] 2.16.840.1.513164.3.579.2. 1258 1954 Unknown [id number] 2.16.840.1.118522.3.579.2. 1258 1954 Unknown [id number] 2.16.840.1.706422.3.579.2. 1258 1954 Unknown [id number] 2.16.840.1.352364.3.579.2. 1258 1954 Unknown [id number] 2.16.840.1.401674.3.579.2. 1258 1954 Unknown [id number] 2.16.840.1.361306.3.579.2. 1258 1954 Unknown [id number] 2.16.840.1.030254.3.579.2. 1258 1954 Unknown [id number] 2.16.840.1.824120.3.579.2. 1259 1954 Unknown [id number] 2.16.840.1.426341.3.579.2. 1259 Unknown Dionisio BC/BS [id number] Unknown Regular [employer] [id number] Unknown [id number] 2.16.840.1.877005.3.579.2. 531 Unknown [id number] 2.16.840.1.982399.3.579.2. 531 Social History Date Type Detail Facility Tobacco Cigarettes [facility] Comment on above: 05/30 pkg daily Start: 08-27-2023 Sex Assigned At Female F [facility] Tobacco smoking status No Smoking Status Entered [facility] Start: 05-07-2023 Tobacco smoking status [facility] Smokes tobacco daily [facility] History of tobacco [...] [facility] Start: 04-12-2023 Tobacco smoking status [facility] Smoker (finding) [facility] Start: 1955 Sex Assigned At Female F [facility] Medical Equipment Procedure Code Equipment Code Equipment Origin al Text Equipment Identifier Dates USE 1 ONCE DAILY DIRECTED [id number] Start: 04-05-2023 TEST BLOOD SUGAR THREE TIMES DAILY for 90 [id number] Blood Sugar Diagnostic (Onetouch Ultra Test) strip Start: 10-02-2017 End: 01-06-2020 Functional Status Date Assessment Result Facility 06-07-2023 Functional Status N/A [facility] History of Present illness Narrative 08-27-2023 [...] hours Jardiance 25 MG (Prior Auth: Rx Ref#:[id number]) Oral for 90 Lasix 20 MG tablet [...] Right 2006 NAIL REMOVAL toenails removed x3 [place] ARTHROSCOPY KNEE DIAGNOSTIC W/WO SYNOVIAL BX SPX Right 02/24/2020 Dr. Ashraf [place] KNEE SCOPE,DIAGNOSTIC Right 09/30/2020 JAB TONSILLECTOMY 1972 [...] This was administered by out physician's assistant drafter Phi Armendariz under my direct supervision. Follow-up in six weeks for re-evaluation. A total of 30 to 39 minutes was spent on this patient encounter which included chart review, check in, nurse triage, history taking, physical examination, diagnostic study review, patient counseling and discussion, entering information into the patient's medical record, and coordinating patient care. Brice Oliva D.O. documented in this encounter [facility] Discharge instructions 06-07-2023 Note Date & Type Note Facility 06-07-2023 Hospital Discharg e instructions Patient Education 06/07/2023 07:30:41 Conchita Oliva - Carpal Tunnel/Cubital Tunnel Release Instructions (Custom) [facility] CARPAL TUNNEL RELEASE INSTRUCTIONS Post-Operative Week [...] to resolve. Brice Oliva DO [facility] [address] [place] [id number] Reviewed: 3-18 Follow Up Care 05/07/2023 14:01:18 With:Brice Oliva DO, ORT Address: [address] [place] [id number]- When: Unknown Comments:, 2 pm Appointment has already been scheduled [facility] History and physical note 06-06-2023 Note Date & Type Note Facility 06-06-2023 Note [id number] 9#[id number] [facility] Clinical Note 03-16-2022 Note Date & Type [...] authenticated by: BECKY OWENS Date: 2022-03-16 08:24 [facility] Evaluation + Plan note Note Date & Type Note Facility Evaluation + Plan note No data available for this section [facility] Evaluation note Note Date & Type Note Facility Evaluation note Diagnosis Left knee pain, unspecified chronicity- Primary documented in this encounter [facility] Evaluation note Note Date & Type Note Facility Evaluation note No assessment information availa [facility] Work Phone: Hospital Discharge instructions Note Date & Type Note Facility Hospital Discharge instructions No data available for this section [facility] Progress note Note Date & Type Note Facility Progress note No data available for this section [facility] Summary Purpose Family History No Family History [...] Inj/Asp: L knee Brice Oliva DO [address] [place] [address] Referral ID Status Reason Start Date Expiration Date Visits Re quested Visits Authorized [id number] Closed 08/27/2023 02/23/2024 1 1 Chief Complaint and Reason for Visit Chief Complaint L hand Additional Source Comments INFORMATION SOURCE (unrecogn ized section and content) DATE CREATED AUTHOR 03/11/2020 [facility] DATE CREATED AUTHOR AUTHOR'S ORGANIZ ATION 08/25/2022 [facility] Special[facility] DATE CREATED AUTHOR AUTHOR'S ORGANIZ ATION 01/04/2023 [facility] DATE CREATED AUTHOR AUTHOR'S ORGANIZ ATION 12/13/2023 [facility] DATE CREATED AUTHOR AUTHOR'S ORGANIZ ATION 01/01/2024 [facility] EPIC DATE CREATED AUTHOR AUTHOR'S ORGANIZ ATION 02/14/2024 [facility] Patient Care team informatio n (unrecognized section and content) [employer] Relationship Specialty Start Date End Date Unallocated, [facility] [address] [facility] [place] [address] PCP - General 12/18/22 [employer] Relationship Specialty Start Date End Date Unallocated, [facility] [address] [place] [address] PCP - General 12/18/22 Team Status: Active Member Role Status Dates AVIVA Dey Primary Care Provider Active Team Status: Inactive [...] BE BASED ON THE PRIMARY CLINICAL RECORDS. [facility] [employer] provides no warranty or guarantee of the accuracy or completeness of information in this document.
[2024-02-14] MEDS: LIDOCAINE HCL 10 ML, SODIUM BICARBONATE 1 MEQ INJ (09:30)
--- NOTE | 2024-02-14 10:09 | SUR.PREOP ---
02/06/24 Pt instructed on procedure, date, time, and prep. Pt instructed to hold her ASA x 5 days prior to procedure.
== END 2024-02-14 09:55 | disposition home or self-care (01) ==
LOC: US 08:27
PROVIDERS: Radiology Diagnostic Radiology; PCP Nurse Practitioner Family; Visit Provider Nurse Practitioner Family
DX: E04.2 Nontoxic multinodular goiter (principal)
CPT/HCPCS: 10005; 10006; 88173

== ENCOUNTER 2024-06-29 09:34 | Outpatient (OUT) | payer MEDICARE, SELFPAY ==
--- NOTE | 2024-06-29 | MM_ITS ---
Patient Name: IDRIS GRIFFIN MR#: [id number] : 1955 Exam Date: 06/29/2024 Ordering Doctor: JOSUÉ DAVIS CNP RADIOLOGY REPORT PROCEDURE: MM TOMOSYNTHESIS SCREENING BI COMPARISON: MM TOMOSYNTHESIS SCREENING BI, 03/01/2023. MG MAMM SCREEN 3D RIMA CAD, 02/14/2022. MG MAMM SCREEN 3D RIMA CAD, 02/09/2021. MG MAMM RIMA DIAG W CAD DIG, 09/13/2015. INDICATIONS: SCREENING Calculator Name NCI Breast Cancer Risk Assessment Tool 5 Year Breast Cancer Risk 0.80% Lifetime Breast Cancer Risk 2.60% Personal Breast Cancer No Personal Ovarian Cancer No Treatments None Family Cancers Aunt-paternal with leukemia cancer at age 65; Aunt-paternal with unknown x 6 aunts cancer at age ~40; Grandmother-maternal with unknown cancer at age 25. LOCATION: [facility] BREAST COMPOSITION: The breasts are heterogeneously dense,which may obscure small masses. FINDINGS: DIAGNOSTIC CATEGORY 1--NEGATIVE. RIGHT BREAST: No significant suspicious finding. No significant change has occurred. LEFT BREAST: No significant suspicious finding. No significant change has occurred. RECOMMENDATIONS: ROUTINE MAMMOGRAM AND CLINICAL EVALUATION IN 12 MONTHS. PLEASE NOTE: A NORMAL MAMMOGRAM DOES NOT EXCLUDE THE POSSIBILITY OF BREAST CANCER. A CLINICALLY SUSPICIOUS PALPABLE LUMP SHOULD BE BIOPSIED. Dictated by: Shahriar Owens M.D. on 06/29/2024 at 16:12 Approved by: Shahriar Owens M.D. on 06/29/2024 at 16:17
== END 2024-06-29 09:35 | disposition home or self-care (01) ==
LOC: MAMMO 09:34
PROVIDERS: PCP Nurse Practitioner Family; Visit Provider Nurse Practitioner Family
DX: Z12.31 Encounter for screening mammogram for malignant neoplasm of breast (principal); M81.0 Age-related osteoporosis without current pathological fracture; Z80.6 Family history of leukemia; Z80.9 Family history of malignant neoplasm, unspecified
CPT/HCPCS: 77063; 77067

== ENCOUNTER 2024-06-29 14:11 | Outpatient (OUT) | payer MEDICARE, SELFPAY ==
--- NOTE | 2024-06-29 14:27 | XR_ITS ---
The [address] [address] Patient Name: IDRIS GRIFFIN MRN: [id number] date: 1955 Sex: F Assigned Patient Location: [facility] Current Patient Location: Accession/Order Number: [id number] Exam Date: 06/29/2024 14:41 Report Date: 06/30/2024 06:57 At the request of: JOSUÉ DAVIS Procedure: XR elbow RT min 3V PROCEDURE: XR elbow RT min 3V HISTORY: right elbow pain COMPARISON: None. FINDINGS: BONES:Tiny periarticular degenerative osteophytes. No fracture, dislocation, bone lesion. SOFT TISSUES:No visible soft tissue swelling. EFFUSION:None visible. OTHER: Negative. XR/XR elbow RT min 3V IMPRESSION: 1. No acute bone abnormality. Mild degenerative changes. Electronically authenticated by: BECKY AVILEZ Date: 06/30/2024 06:57
--- NOTE | 2024-06-29 14:27 | XR_ITS ---
The [address] [address] Patient Name: IDRIS GRIFFIN MRN: [id number] date: 1955 Sex: F Assigned Patient Location: [facility] Current Patient Location: [facility] Accession/Order Number: [id number] Exam Date: 06/29/2024 14:41 Report Date: 06/30/2024 06:58 At the request of: JOSUÉ DAVIS Procedure: XR hip LT 2V w/ pelvis PROCEDURE: XR hip LT 2V w/ pelvis HISTORY: left hip pain COMPARISON: None. FINDINGS: BONES:Small degenerative osteophytes along superior margin of acetabulum bilaterally. Mild narrowing of the superior joint spaces bilaterally. No fracture, dislocation, bone lesion. SOFT TISSUES:No visible soft tissue swelling. EFFUSION:None visible. OTHER: Degenerative disc disease of lower lumbar spine. XR/XR hip LT 2V w/ pelvis IMPRESSION: 1. No acute bone abnormality. 2. Mild/moderate degenerative changes of the hip joints. Electronically authenticated by: BECKY AVILEZ Date: 06/30/2024 06:58
== END 2024-06-29 14:12 | disposition home or self-care (01) ==
LOC: RAD 14:14
PROVIDERS: PCP Nurse Practitioner Family; Visit Provider Nurse Practitioner Family
DX: Z12.31 Encounter for screening mammogram for malignant neoplasm of breast (principal); M81.0 Age-related osteoporosis without current pathological fracture; Z80.6 Family history of leukemia; Z80.9 Family history of malignant neoplasm, unspecified; M25.521 Pain in right elbow; M25.552 Pain in left hip
CPT/HCPCS: 73080; 73502; 77063; 77067

== ENCOUNTER 2024-07-06 10:59 | Outpatient (OUT) | payer MEDICARE, SELFPAY | END 2024-07-06 11:00 | disposition home or self-care (01) | LOC: SLEEP 10:59 | PROVIDERS: PCP Nurse Practitioner Family; Visit Provider Nurse Practitioner Family | DX: G47.33 Obstructive sleep apnea (adult) (pediatric) (principal); F51.01 Primary insomnia; R53.83 Other fatigue; R51.9 Headache, unspecified ==

== ENCOUNTER 2024-07-09 09:55 | Outpatient (OUT) | payer MEDICARE, SELFPAY ==
--- OUTSIDE RECORDS SUMMARY | 2024-07-09 10:02 | XMS_ITS | CCD ---
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 (RT THYR) B FNA SLIDES NOPATH (THY ISTHM) Procedures: Cyto Int and Re/2, PAPSTN22 -------- Patient: Mike Gonzales [id number] (Continued) -------- Specimen: [id number] Received: 04/15/24 (Continued) Supplemental Report (Continued) Signed (signature on file) Noemy De Los Santos MD 04/21/24 1010 -------- Specimen: [id number] Received: 04/15/24 Status: ANIRUDH Navarro Num: [id number] Spec Type: Cytology Subm Dr: Da Phillip,DO Tissues: A FNA SLIDES NOPATH (RT THYR) B FNA SLIDES NOPATH (THY ISTHM) Procedures: Cyto Int and Re/2, PAPSTN22 -------- Patient: Mike Gonzales [id number] (Continued) -------- Specimen: [id number] Received: 04/15/24-9699 (Continued) Supplemental Report (Continued) -Xpression [place] -N/A -Other Classifiers -BRAF: Negative -RET/PTC1: Not detected -RET/PTC3: Not detected -MTC: Negative -Parathyroid: Negative TERT PROMOTER REGION: -Tests not performed (TNP) Addendum Signed (signature on file) Chin-Pancho De Los Santos MD 05/11/24 1009 -------- Pathological Diagnosis A, right thyroid nodule, mid, FNA cytology: -A few follicular groups present in combined smears, appropriate for assessment -Most follicular cells show uniform small round to ovoid nuclei. However, rare follicular groups display slightly enlarged ovoid nuclei, including 1 with noted nuclear inclusion, suspicious for atypia of undetermined significance, the category 3 [place] system -Pending additional molecular triage study to follow B, instruments thyroid nodule, FNA cytology: -A few follicular cells are present in combined smears, including occasional small and/or loose follicular groups, adequately for assessment, often showing small round to ovoid nuclei, consistent with the category 2 [place] system: Benign -------- Specimen: [id number] Received: 04/15/24 Status: ANIRUDH Ramon Num: [id number] Spec Type: Cytology Subm Dr: Da Phillip DO Tissues: A FNA SLIDES NOPATH (RT THYR) B FNA SLIDES NOPATH (THY ISTHM) Procedures: Cyto Int and Re/2, PAPSTN -------- Patient: Mike Gonzales [id number] (Continued) -------- Specimen: [id number] Received: 04/15/24 (Continued) Signed (signature on file) Noemy De Los Santos MD 04/21/24 1010 -------- Specimen: [id number] Received: 04/15/24 Status: ANIRUDH Navarro Num: [id number] Spec Type: Cytology Subm Dr: Da Phillip,DO Tissues: A FNA SLIDES NOPATH (RT THYR) B FNA SLIDES N (more content not included)... Normal [facility] Thyrotropin [Units/volume] i n Serum or PlasmaOrdered By: Da Phillip on 03-26-2024 TSH Qn 1.31 m[IU]/L Normal 0.45-5.33 [facility] Comment on above: Result Comment: PERF ORMED BY: [place] [address] PATHOLOGIST DRUM TESTER JENNIFER HERNANDEZ M.D. Performed By: #### T 3T, T4T, TSH3 #### [address] Thyroxine (T4) [Mass/volume] in Serum or PlasmaOrdered By: Da Phillip on 03-26-2024 T4 [Mass/Vol] 9.37 ug/dL Normal 5.39-11.82 [facility] Comment on above: Performed By: #### T 3T, T4T, TSH3 #### [facility] [address] [place] [address] Triiodothyronine (T3) Totalo n 03-26-2024 Triiodothyronine (T3) Total 0.90 ng/mL Normal 0.87-1.78 [facility] Comment on above: Performed By: #### T 3T, T4T, TSH3 #### [facility] [address] [place] [address] Triiodothyronine (T3) [Mass/ volume] in Serum or PlasmaOrdered By: Da Phillip on 03-26-2024 T3 [Mass/Vol] 0.90 ng/mL 0.87-1.78 [facility] Kobe 02-14-2024 L Specimen: BC Received: 02/17/24 Status: ANIRUDH Req Num: [id number] Spec Type: Cytology Subm Dr: Aggie Davis CNP Tissues: A FNA SLIDES NOPATH (RT THYROID NOD) B FNA SLIDES NOPATH (ISTHMUS THY) Procedures: Cyto Int and Re/2, PAPSTN/10 Age/ Patient Sex Location Account Attending Physician LatriciaaliciaLitzyMike Zelaya 68/F LABELL [id number] Aggie Davis CNP SPEC NUM: [id number] RECD: 02/17/24 STATUS: ANIRUDH REQ NUM: [id number] SWETA: 02/14/24 DR: Aggie Davis CNP ENTERED: 02/17/[address]: Santa,Oliver Owens MD SPEC TYPE: Cytology DEPT: POP NCRADHA ENTERED BY: [id number] RECV BY: [id number] ORDERED: Cyto Int and Re/2, PAPSTN/10 ORDERED: Cyto Int and Re/2, PAPSTN/10 Pathological Diagnosis A. Right thyroid,?fine needle aspiration:? Suspicious for follicular neoplasm, Atypical Follicular Cells With Abundant Colloid. [place] Category IV B. Isthmus, fine needle aspiration:? Unsatisfactory for evaluation. Too few epithelial cells. [place]?Category?I Clinical Information Thyroid Nodules Gross Description A. (RIGHT) Received fixed in Cytolyt is <1 ml very pale pink clear fluid for cytology said to have been obtained as right thyroid nodule-mid . ThinPrep preparations are prepared for microscopic examination. Also received are 4 spray fixed smeared slides to be stained pap aa Veracyte vial stored at -20 for microscopic examination.(NC/ma) B. (ISTHMUS) Received fixed in Cytolyt is (1 ml pink clear fluid for cytology said to have -------- Specimen: [id number] Received: 02/17/24 Status: ANIRUDH Ramon Num: [id number] Spec Type: Cytology Subm Dr: Aggie Davis CNP Tissues: A FNA SLIDES NOPATH (RT THYROID NOD) B FNA SLIDES NOPATH (ISTHMUS THY) Procedures: Cyto Int and Re/2, PAPSTN/10 -------- Patient: JanetMike [id number] (Continued) -------- Specimen: BC Received: 02/17/24 (Continued) Gross Description (Continued) Signed (signature on file) Nishant Morley MD 02/19/24 1428 -------- Specimen: [id number] Received: 02/17/24 Status: ANIRUDH Ramon Num: [id number] Spec Type: Cytology Subm Dr: Aggie Davis CNP Tissues: A FNA SLIDES NOPATH (RT THYROID NOD) B FNA SLIDES NOPATH (ISTHMUS THY) Procedures: Cyto Int and Re/2, PAPSTN/10 -------- Patient: Mike Gonzales [id number] (Continued) -------- Specimen: [id number] Received: 02/17/24 (Continued) Gross Description (Continued) been obtained as Isthmus thyroid nodule. ThinPrep preparations are prepared for microscopic examination. Also received are 4 spray fixed smeared smeared slides to be stained pap and a Veracyte vial stored at -20 for microscopic examination.(NC/ma) CPT Codes [id number] -------- -------- Specimen: [id number] Received: 02/17/24 Status: ANIRUDH Navarro Num: [id number] Spec Type: Cytology Subm Dr: Aggie Davis, COMMUNITY REINVESTMENT ACT OFFICER Tissues: A FNA SLIDES NOPATH (RT THYROID NOD) B FNA SLIDES NOPATH (ISTHMUS THY) Procedures: Cyto Int and Re/2, PAPSTN/10 -------- Patient: Mike Gonzales [id number] (Continued) -------- Signed (signature on file) Nishant Morley MD 02/19/24 2225 Normal [facility] Nonvisit Note - PTon 024 Nonvisit Note - PT Pt cancelled reassessment due to being sick. AMK Normal [facility] Nonvisit Note - PTon 024 Nonvisit Note - PT Pt no showed for 171 5 appointment. Normal [facility] Nonvisit Note - PTon 024 Nonvisit Note - PT Pt called to cancel as she is ill. Normal [facility] Consent for Treatmenton 10-28 Consent for Treatment [id number]#1 .00TIFF Normal [facility] PT - Assessmentson PT - Assessments [id number]#1 .00TIFF Normal [facility] PT - Consentson 11-19-2023 PT - Consents [id number]#1 .00TIFF Normal [facility] Insurance Correspondenceon 0 11-12-2023 Insurance Correspondence [id number]# 1.00TIFF Normal [facility] PT - Orderson 11-11-2023 PT - Orders [id number]# 1.00TIFF Normal [facility] L Inj/Asp: L kneeon 08-27-19 24 Sue Henning ARR T 09/02/2023 8:37 AM L Inj/Asp: L knee on 08/27/2023 3:43 PM Indications: pain Details: 21 G needle, lateral approach Medications: 16 mg hylan 16 MG/2ML Consent was given by the patient. [facility] IntraOperative Documentson 1 08-11-2022 IntraOperative Documents [id number]#1 .00TIFF [facility] Discharge Instructionson Discharge Instructions [id number] #1.00TIFF [facility] IntraOperative Documentson 1 08-10-2022 IntraOperative Documents [id number] #1.00TIFF [facility] Main OR Intraoperative Recor don 06-10-2023 Main OR Intraoperative Record IntraOp Document Type FT Summary Primary Physician: Brice Oliva DO Finalized Date/Time: 06/10/23 12:15:18 Pt. Name: VIRGEN GONZALES/Sex: 1955 Female Med Rec #: [id number] Physician: Brice Oliva DO Financial #: [id number] Pt. Type: A Room/Bed: [facility]08/29 Admit/Disch: 06/07/23 06:35:30 - 06/07/23 08:20:00 [...] Attendee Brice Oliva DO, CST, Merry Perez RN, Merry Garsia Role Performed Surgeon - Primary Scrub - Primary Wool Cleaner - Primary Time In 06/07/23 07:28:00 06/07/23 [...] Given Participants Dima TORRES, Ana Morales RN, Merry Garsia Time Out Complete 06/07/23 07:43:00 Outcomes Met? [...] and tissue Entry 1 Skin Integrity Intact, [place], Warm, and Skin Abnormality No Dry Outcomes [...] Feet Uncro (more content not included)... Normal [facility] Preoperative Documentson Preoperative Documents [id number] #1.00TIFF [facility] Consent for Procedure/Surger yon 06-07-2023 Consent for Procedure/Surgery [id number]# 1.00TIFF [facility] Consent for Treatmenton 05-29 Consent for Treatment [id number]#1 .00TIFF [facility] Discharge Instructionson Discharge Instructions VIRGEN GONZALES [...] Doctor Event Name Event Result Pharmacy Information [facility] [address] , [place] Discharge Instructions Discharge Instructions New Follow Up Appointments after Discharge Follow Up with Brice Oliva DO, ORT When: Comments: , 2 pm Appointment has already been scheduled Where: [place] [address]- Medications What How Much When Instructions Next Dose New ascorbic acid (Vitamin C 500 mg oral tablet, chewable) 1 Tablets Chewed Every day Duration: 50 Days Pickup at [facility] #45105 New tramadol (traMADOL 50 mg Tab) 1 Tablets By Mouth Every 4 hours as needed for for pain g56.02 Pickup at [facility] #45634 Changed naproxen (naproxen 500 mg Tab) 1 Tablets By Mouth 2 times a day as needed for Pain with food Pickup at [facility] #54971 Changed naproxen (naproxen 500 mg Tab) 1 [...] times a day Pharmacy Information [facility] #[id number]: [address] [place], [place] [id number] [phone] What How Much When Comments Stop Taking [...] Cigarette smoker Fatigue Insomnia 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 Normal [facility] Comment on above: Result Comment: Elec tronically Signed By: Lilo YANG, Gila Pedroza\.br\Date and Time Signed: 06/07/23 08:35 EST Discharge [...] Doctor Event Name Event Result Pharmacy Information [facility] , [facility] New Follow Up Appointments after Discharge Follow Up with Brice Oliva DO ORT When: Comments: , 2 pm Appointment has already been scheduled Where: [address] [place] [address]- Medications What How Much When Instructions Next Dose New ascorbic acid (Vitamin C 500 mg oral tablet, chewable) 1 Tablets Chewed Every day Duration: 50 Days Pickup at [facility] #19982 New tramadol (traMADOL 50 mg Tab) 1 Tablets By Mouth Every 4 hours as needed for for pain g56.02 [facility]102 Changed naproxen (naproxen 500 mg Tab) 1 Tablets By Mouth 2 times a day with food Changed naproxen (naproxen 500 mg Tab) 1 Tablets By Mouth 2 times a day as needed for Pain with food Pickup at [facility] #98612 Unchanged alendronate (alendronate 70 mg oral tablet) [...] times a day Pharmacy Information [id number]: [address] [place] [id number] [phone] What How Much When Comments Stop Taking [...] Cigarette smoker Fatigue Insomnia [place] of back [place] - myocardial infarction Osteoporosis Pharyngitis (more content not included)... Normal [facility] Comment on above: Result Comment: Elec tronically Signed By: Marisela DIAZ, Mercy\.br\Date and Time Signed: 06/07/23 08:32 EST H&P Updateon 06-07-2023 H&P Update [id number]# 1.00TIFF Normal [facility] Inpatient Patient Summaryon 06-07-2023 Inpatient Patient Summary [address] [address] [facility] Clinical Discharge Instructions PERSON INFORMATION Name: VIRGEN GONZALES PHYSICIANS Admitting Physician: Brice Oliva DO Attending Physician: Brice Oliva DO PCP: AGGIE DAVIS CNP Discharge Diagnosis: Comment: PATIENT EDUCATION INFORMATION Instructions: Conchita Oliva - Carpal Tunnel/Cubital Tunnel Release Instructions (Custom) Medication Leaflets: Follow up: MEDICATION LIST New Medications [facility] #[id number], [address] [place], [place] [id number], [phone] ascorbic acid (Vitamin C 500 mg oral tablet, chewable) 1 Tablets Chewed every day for 50 Days. Refills: 0. tramadol (traMADOL 50 mg Tab) 1 Tablets By Mouth every 4 hours as needed for pain. g56.02. Refills: 0. Medications to Continue Taking That Have Changed [facility]69, [address] [place] [id number], [phone] START: naproxen (naproxen 500 mg Tab) 1 [...] needed as needed for arthritis. Comment: Miguelina Filipe [facility] Main OR PACU II [facility] Main OR PACU II Record PACU Phase II Document Type FT Summary Primary Physician: Brice Oliva DO Finalized Date/Time: 06/07/23 09:45:08 Pt. Name: VIRGEN GONZALES Ramiro Shabazz./Sex: 1955 Female Med Rec #: [id number] Physician: Brice Oliva DO Financial #: [id number] Pt. Type: A Room/Bed: [place] [address] Admit/Disch: 06/07/23 06:35:30 - Institution: Case Times [...] By: Mercy Antonio LPN 06/07/23 09:45 Normal [facility] Main OR Preoperative Recordo n 06-07-2023 Main OR Preoperative Record PreOp Document Type FT Summary Primary Physician: Brice Oliva DO Finalized Date/Time: 06/07/23 07:47:43 Pt. Name: VIRGEN GONZALES.O.B./Sex: 1955 Female Med Rec #: [id number] Physician: Brice Oliva DO Financial #: [id number] Pt. Type: A Room/Bed: [place] [address] Admit/Disch: 06/07/23 06:35:30 - Institution: Case Times [...] Signed By: Merry Perez RN 06/07/23 07:47 [facility] Main OR Preoperative Record Holding Area Document Type FT Summary Primary Physician: Brice Oliva DO Finalized Date/Time: 06/07/23 07:35:11 Pt. Name: VIRGEN GONZALES.O.B./Sex: 1955 Female Med Rec #: [id number] Physician: Brice Oliva DO Financial #: [id number] Pt. Type: A Room/Bed: [facility] Admit/Disch: 06/07/23 06:35:30 - Institution: Case Times [...] supervision available Comment - Adult brother Maxwell brothbakari Arreola Supervision Case Cancelled in No No Holding Area see comments below for reason Case Cancelled Comment Last Modified By: Mercy Antonio LPN, LPN, Sandra 06/07/23 07:05:36 06/07/23 07:14:09 Finalized By: Mercy Antonio LPN Document Signatures Signed By: Mercy Antonio LPN 06/07/23 07:05 Mercy Antonio LPN 06/07/23 07:35 Normal [facility] Operative Reporton 3 Operative Report Patient: [...] Local OPERATIVE INDICATIONS: Virgen is a 67-year-old aysgt-gfyy-uhegmsqs female who has had persistent pain, numbness [...] and the median nerve. A curved meniscal [place] blade was slid on top of the [...] linda was identified and released with a [place] blade. There was thickening to the FPL tendon. The patient was asked to flex and extend the thumb repeatedly and there was no triggering of the thumb. Her range of motion improved. Attention was then turned to the ring finger. A longitudinal incision utilizing one of the patient's natural palmar creases was made. Retractors were placed on both sides of the A1 lidna. The linda was released with a [place] blade. There was thickening and nodularity to [...] clean and elective. Brice Oliva D.O. Normal [facility] Comment on above: Result Comment: Elec tronically Signed By: Brice Oliva DO\.br\Date and Time Signed: 06/07/23 17:44 EST Outpatient Surgery Discharge Instructionon 06-07-2023 Outpatient Surgery Discharge Instruction [place] [id number] Patient Discharge Instructions PERSON INFORMATION Name: VIRGEN [...] Salazar You may receive a survey from Ajaline Kirt asking you to rate your care experience. Your feedback is important and will help us understand what we do well and how we can improve the quality of care we provide to you, your loved ones and our community. It?s an honor to serve you. Thank you for choosing [facility] HERE ARE THE MEDICATION CHANGES THAT OCCURRED DURING YOUR HOSPITAL STAY New Medications [facility][id number], [address], [place] [id number], [phone] ascorbic acid (Vitamin C 500 mg oral tablet, chewable) 1 Tablets Chewed every day for 50 Days. Refills: 0. tramadol (traMADOL 50 mg Tab) 1 Tablets By Mouth every 4 hours as needed for pain. g56.02. Refills: 0. Medications to Continue Taking That Have Changed [facility]60979, [address] [place], [place] [id number], [phone] START: naproxen (naproxen 500 mg Tab) 1 [...] needed for arthritis. PATIENT EDUCATION INFORMATION Instructions: [place], [place] [facility] CARPAL TUNNEL RELEASE INSTRUCTIONS [...] resume sports. (more content not included)... Normal [facility] Patient Education - Texton 1 08-07-2022 Patient Education - Text [place] [facility] CARPAL TUNNEL RELEASE INSTRUCTIONS [...] to resolve. Brice Oliva, DO [facility] [address] [place] [id number] Reviewed: 10-13 [facility] PROF 14(COMP METB)on 023 Albumin [Mass/Vol] 3.2 g/dL Critically low 3.4-5.0 [facility] Comment on above: Performed By: #### T SH, CMP, T7, LIPID #### [facility] [address] [address] [address] Danay De Los Santos Albumin/Globulin [Mass ratio] 1.0 {ratio} Normal [facility] Comment on above: Performed By: #### T SH, CMP, T7, LIPID #### [facility] [address] [address] [address] Danay De Los Santos ALP [Catalytic activity/Vol] 92 U/L Normal 46-116 [facility] Comment on above: Performed By: #### T SH, CMP, T7, LIPID #### [facility] [address] [address] [address] Danay De Los Santos ALT [Catalytic activity/Vol] 21 U/L Normal 14-59 [facility] Comment on above: Performed By: #### T SH, CMP, T7, LIPID #### [facility] [address] [address] [address] Danay De Los Santos Anion gap [Moles/Vol] 13.2 mmol/L Normal [facility] Comment on above: Performed By: #### T SH, CMP, T7, LIPID #### [facility] [address] [address] [address] Danay De Los Santos AST [Catalytic activity/Vol] 14 U/L Critically low 15-37 [facility] Comment on above: Performed By: #### T SH, CMP, T7, LIPID #### [facility] [address] [address] [address] Danay De Los Santos Bilirubin [Mass/Vol] 0.2 mg/dL Normal 0.2-1.0 [facility] Comment on above: Performed By: #### T SH, CMP, T7, LIPID #### [facility] [address] [address] [address] Danay De Los Santos Calcium [Mass/Vol] 8.6 mg/dL Normal 8.5-10.1 [facility] Comment on above: Performed By: #### T SH, CMP, T7, LIPID #### [facility] [address] [address] [address] Danay De Los Santos Chloride [Moles/Vol] 105 mmol/L Normal 98-107 [facility] Comment on above: Performed By: #### T SH, CMP, T7, LIPID #### [facility] [address] [address] [address] Danay De Los Santos CO2 [Moles/Vol] 27.9 mmol/L Normal 21.0-32.0 [facility] Comment on above: Performed By: #### T SH, CMP, T7, LIPID #### [facility] [address] [place] [address] Dr. Danay De Los Santos Creatinine [Mass/Vol] 1.47 mg/dL Critically high 0.55-1.02 [facility] Comment on above: Performed By: #### T SH, CMP, T7, LIPID #### [facility] [address] [place] [address] Dr. Danay De Los Santos EGFR-AF MALAWIAN 43 mL/min/1.73m2 Critically low >=60 [facility] Comment on above: Performed By: #### T SH, CMP, T7, LIPID #### [facility] [address] [place] [address] Dr. Danay De Los Santos EGFR-NON AF MALAWIAN 35 mL/min/1.73m2 Critically low >=60 [facility] Comment on above: Performed By: #### T SH, CMP, T7, LIPID #### [facility] [address] [place] [address] Dr. Danay De Los Santos Globulin (S) [Mass/Vol] 3.3 g/dL Normal [facility] Comment on above: Performed By: #### T SH, CMP, T7, LIPID #### [facility] [address] [place] [address] Dr. Danay De Los Santos Glucose [Mass/Vol] 145 mg/dL Critically high 74-106 [facility] Comment on above: Performed By: #### T SH, CMP, T7, LIPID #### [facility] [address] [address] [address] Danay De Los Santos Potassium [Moles/Vol] 4.1 mmol/L Normal 3.5-5.1 [facility] Comment on above: Performed By: #### T SH, CMP, T7, LIPID #### [facility] [address] [place] [address] Dr. Danay De Los Santos Protein [Mass/Vol] 6.5 g/dL Normal 6.4-8.2 [facility] Comment on above: Performed By: #### T SH, CMP, T7, LIPID #### [facility] [address] [place] [address] Dr. Danay De Los Santos Sodium [Moles/Vol] 142 mmol/L Normal 136-145 [facility] Comment on above: Performed By: #### T SH, CMP, T7, LIPID #### [facility] [address] [place] [address] Dr. Danay De Los Santos Urea nitrogen [Mass/Vol] 22.0 mg/dL Critically high 7.0-18.0 [facility] Comment on above: Performed By: #### T SH, CMP, T7, LIPID #### [facility] [address] [place] [address] Dr. Danay De Los Santos Urea nitrogen/Creatinine [Mass ratio] 15.0 mg/mg Normal [facility] Comment on above: Performed By: #### T SH, CMP, T7, LIPID #### [facility] [address] [place] [address] Dr. Danay De Los Santos PROF CHEM 8 (BAS METB)on Anion gap [Moles/Vol] 12.1 mmol/L Normal [facility] Comment on above: Performed By: #### B MP #### [facility] [address] [place] [address] Dr. Danay De Los Santos Calcium [Mass/Vol] 8.8 mg/dL Normal 8.5-10.1 [facility] Comment on above: Performed By: #### B MP #### [facility] [address] [place] [address] Dr. Danay De Los Santos Chloride [Moles/Vol] 103 mmol/L Normal 98-107 [facility] Comment on above: Performed By: #### B MP #### [facility] [address] [address] [address] Danay De Los Santos CO2 [Moles/Vol] 28.6 mmol/L Normal 21.0-32.0 [facility] Comment on above: Performed By: #### B MP #### [facility] [address] [address] [address] Danay De Los Santos Creatinine [Mass/Vol] 2.08 mg/dL Critically high 0.55-1.02 [facility] Comment on above: Performed By: #### B MP #### [facility] [address] [address] [address] Danay De Los Santos EGFR-AF [place] 29 mL/min/1.73m2 Critically low >=60 [facility] Comment on above: Performed By: #### B MP #### [facility] [address] [address] [address] Danay De Los Santos EGFR-NON AF MALAWIAN 24 mL/min/1.73m2 Critically low >=60 [facility] Comment on above: Performed By: #### B MP #### [facility] [address] [address] [address] Danay De Los Santos Glucose [Mass/Vol] 259 mg/dL Critically high 74-106 [facility] Comment on above: Performed By: #### B MP #### [facility] [address] [address] [address] Danay De Los Santos Potassium [Moles/Vol] 4.7 mmol/L Normal 3.5-5.1 [facility] Comment on above: Performed By: #### B MP #### [facility] [address] [address] [address] Danay De Los Santos Sodium [Moles/Vol] 139 mmol/L Normal 136-145 [facility] Comment on above: Performed By: #### B MP #### [facility] [address] [address] [address] Danay De Los Santos Urea nitrogen [Mass/Vol] 27.0 mg/dL Critically high 7.0-18.0 [facility] Comment on above: Performed By: #### B MP #### [facility] [address] [place] [address] Dr. Danay De Los Santos Urea nitrogen/Creatinine [Mass ratio] 13.0 mg/mg Normal [facility] Comment on above: Performed By: #### B MP #### [facility] [address] [place] [address] Dr. Danay De Los Santos INSULINon 12-17-2022 Insulin 11.1 uIU/mL Normal 2.6-24.9 [facility] Comment on above: Performed By: #### I NSULIN #### [facility] [address] [place] [address] Dr. Danay De Los Santos BNPon 12-15-2022 Natriuretic peptide B (Bld) [Mass/Vol] 110.0 pg/mL Normal <=900.0 [facility] Comment on above: Performed By: #### T SH, CMP, T7, LIPID #### [facility] [address] [place] [address] Dr. Danay De Los Santos CBC AUTO DIFFon 12-15-2022 BASO # 0.1 103/ul Normal 0.0-0.1 [facility] Comment on above: Performed By: #### T SH, CMP, T7, LIPID #### [facility] [address] [place] [address] Dr. Danay De Los Santos Basophils/100 WBC (Bld) 0.5 % Normal 0.2-2.0 [facility] Comment on above: Performed By: #### T SH, CMP, T7, LIPID #### [facility] [address] [place] [address] Dr. Danay De Los Santos EO # 0.7 103/ul Normal 0.0-0.7 [facility] Comment on above: Performed By: #### T SH, CMP, T7, LIPID #### [facility] [address] [place] [address] Dr. Danay De Los Santos Eosinophils/100 WBC (Bld) 6.0 % Normal 0.9-7.0 [facility] Comment on above: Performed By: #### T SH, CMP, T7, LIPID #### [facility] [address] [place] [address] Dr. Danay De Los Santos Erythrocyte distribution width (RBC) [Ratio] 15.6 % Critically high 11.0-15.0 [facility] Comment on above: Performed By: #### T SH, CMP, T7, LIPID #### [facility] [address] [place] [address] Dr. Danay De Los Santos Hematocrit (Bld) [Volume fraction] 40.2 % Normal 36.0-48.0 [facility] Comment on above: Performed By: #### T SH, CMP, T7, LIPID #### [facility] [address] [place] [address] Dr. Danay De Los Santos Hemoglobin (Bld) [Mass/Vol] 12.6 g/dL Normal 12.0-16.0 [facility] Comment on above: Performed By: #### T SH, CMP, T7, LIPID #### [facility] [address] [place] [address] Dr. Danay De Los Santos IG # 0.06 10e3/ul Critically high 0.00-0.03 [facility] Comment on above: Performed By: #### T SH, CMP, T7, LIPID #### [facility] [address] [place] [address] Dr. Danay De Los Santos IG % 0.5 % Normal 0.0-0.5 [facility] Comment on above: Performed By: #### T SH, CMP, T7, LIPID #### [facility] [address] [place] [address] Dr. Danay De Los Santos LYMPH # 3.2 103/ul Normal 1.2-3.8 [facility] Comment on above: Performed By: #### T SH, CMP, T7, LIPID #### [facility] [address] [place] [address] Dr. Danay De Los Santos Lymphocytes/100 WBC (Bld) 28.9 % Normal 20.5-60.0 [facility] Comment on above: Performed By: #### T SH, CMP, T7, LIPID #### [facility] [address] [place] [address] Dr. Danay De Los Santos MANUAL DIFF REQ NO Normal [facility] Comment on above: Performed By: #### T SH, CMP, T7, LIPID #### [facility] [address] [place] [address] Dr. Danay De Los Santos MCH (RBC) [Entitic mass] 27.3 pg Normal 26.7-34.0 [facility] Comment on above: Performed By: #### T SH, CMP, T7, LIPID #### [facility] [address] [place] [address] Dr. Danay De Los Santos MCHC (RBC) [Mass/Vol] 31.3 g/dL Normal 29.9-35.2 [facility] Comment on above: Performed By: #### T SH, CMP, T7, LIPID #### [facility] [address] [place] [address] Dr. Danay De Los Santos MCV (RBC) [Entitic vol] 87.2 fL Normal 81.0-99.0 [facility] Comment on above: Performed By: #### T SH, CMP, T7, LIPID #### [facility] [address] [place] [address] Dr. Danay De Los Santos MONO # 0.6 103/ul Normal 0.3-0.8 [facility] Comment on above: Performed By: #### T SH, CMP, T7, LIPID #### [facility] [address] [place] [address] Dr. Danay De Los Santos Monocytes/100 WBC (Bld) 5.7 % Normal 1.7-12.0 [facility] Comment on above: Performed By: #### T SH, CMP, T7, LIPID #### [facility] [address] [place] [address] Dr. Danay De Los Santos NEUT # 6.4 103/ul Normal 1.4-6.5 [facility] Comment on above: Performed By: #### T SH, CMP, T7, LIPID #### [facility] [address] [place] [address] Dr. Danay De Los Santos Neutrophils/100 WBC (Bld) 58.4 % Normal 43.0-75.0 [facility] Comment on above: Performed By: #### T SH, CMP, T7, LIPID #### [facility] [address] [place] [address] Dr. Danay De Los Santos Platelet mean volume (Bld) [Entitic vol] 10.6 fL Normal 9.5-13.5 [facility] Comment on above: Performed By: #### T SH, CMP, T7, LIPID #### [facility] [address] [place] [address] Dr. Danay De Los Santos PLT 251 103/ul Normal 150-450 [facility] Comment on above: Performed By: #### T SH, CMP, T7, LIPID #### [facility] [address] [place] [address] Dr. Danay De Los Santos RBC 4.61 106/ul Normal 4.20-5.40 [facility] Comment on above: Performed By: #### T SH, CMP, T7, LIPID #### [facility] [address] [place] [address] Dr. Danay De Los Santos WBC 10.9 103/ul Normal 4.0-11.0 [facility] Comment on above: Performed By: #### T SH, CMP, T7, LIPID #### [facility] [address] [place] [address] Dr. Danay De Los Santos FREE THYROXINE INDEX T7on FTI 2.87 Normal 1.30-4.50 [facility] Comment on above: Performed By: #### T SH, CMP, T7, LIPID #### [facility] [address] [place] [address] Dr. Danay De Los Santos T3U 35.0 % Normal 30.0-39.0 [facility] Comment on above: Performed By: #### T SH, CMP, T7, LIPID #### [facility] [address] [place] [address] Dr. Danay De Los Santos T4 [Mass/Vol] 8.20 ug/dL Normal 4.80-13.[address] [facility] Comment on above: Performed By: #### T SH, CMP, T7, LIPID #### [facility] [address] [address] [address] Danay De Los Santos GLYCOHEMOGLOBIN A1Con 2022 ADA RECOMMENDATION SEE BELOW Normal [facility] Comment on above: Result Comment: ADA RECOMMENDED LIMIT 4.0 - 6.0 ADA THERAPEUTIC TARGET < 7.0 ACTION SUGGESTED > 7.0 Performed By: #### A 1C #### [facility] [address] [place] [address] Dr. Danay De Los Santos Glucose [Mass/Vol] 203 mg/dL Normal [facility] Comment on above: Performed By: #### A 1C #### [facility] [address] [address] [address] Danay De Los Santos HbA1c (Bld) [Mass fraction] 8.7 % Critically high 4.5-6.2 [facility] Comment on above: Performed By: #### A 1C #### [facility] [address] [place] [address] Dr. Danay De Los Santos IRONon 12-15-2022 Iron [Mass/Vol] 39.0 ug/dL Critically low 50.0-170.0 [facility] Comment on above: Performed By: #### T SH, CMP, T7, LIPID #### [facility] [address] [place] [address] Dr. Danay De Los Santos LIPID PROFILEon 12-15-2022 CHOL-HDL RATIO NORM SEE BELOW Normal [facility] Comment on above: Result Comment: 3.3 - 4.4 LOW RISK 4.4 - 7.1 AVERAGE RISK 7.1 - 11.0 MODERATE RISK >11.0 HIGH RISK Performed By: #### T SH, CMP, T7, LIPID #### [facility] [address] [place] [address] Dr. Danay De Los Santos Cholesterol [Mass/Vol] 123 mg/dL Normal <=200 [facility] Comment on above: Performed By: #### T SH, CMP, T7, LIPID #### [facility] [address] [place] [address] Dr. Danay De Los Santos Cholesterol in HDL [Mass/Vol] 40 mg/dL Normal 40-60 [facility] Comment on above: Performed By: #### T SH, CMP, T7, LIPID #### [facility] [address] [address] [address] Danay De Los Santos Cholesterol in LDL [Mass/Vol] 70.4 mg/dL Normal [facility] Comment on above: Performed By: #### T SH, CMP, T7, LIPID #### [facility] [address] [address] [address] Danay De Los Santos Cholesterol.total/Cho lesterol in HDL [Mass ratio] 3.1 {ratio} Normal [facility] Comment on above: Performed By: #### T SH, CMP, T7, LIPID #### [facility] [address] [address] [address] Danay De Los Santos HDL NORMAL > or = 60 mg/dl - LO W CARDIOVASCULAR RISK <40 mg/dl - HIGH CARDIOVASCULAR RISK Normal [facility] Comment on above: Performed By: #### T SH, CMP, T7, LIPID #### [facility] [address] [address] [address] Danay De Los Santos LDL CALC NORMAL SEE BELOW Normal [facility] Comment on above: Result Comment: <100 mg/dl OPTIMAL 100 - 129 mg/dl NEAR OR ABOVE OPTIMAL 130 - 159 mg/dl BORDERLINE HIGH 160 - 189 mg/dl HIGH >190 mg/dl VERY HIGH Performed By: #### T SH, CMP, T7, LIPID #### [facility] [address] [address] [address] Danay De Los Santos Triglyceride [Mass/Vol] 63 mg/dL Normal <=150 [facility] Comment on above: Performed By: #### T SH, CMP, T7, LIPID #### [facility] [address] [address] [address] Danay De Los Santos VLDL CALC 12.6 mg/dL Normal [facility] Comment on above: Performed By: #### T SH, CMP, T7, LIPID #### [facility] [address] [place] [address] Dr. Danay De Los Santos PROF 14(COMP METB)on 023 Albumin [Mass/Vol] 3.3 g/dL Critically low 3.4-5.0 [facility] Comment on above: Performed By: #### T SH, CMP, T7, LIPID #### [facility] [address] [address] [address] Danay De Los Santos Albumin/Globulin [Mass ratio] 1.0 {ratio} Normal [facility] Comment on above: Performed By: #### T SH, CMP, T7, LIPID #### [facility] [address] [address] [address] Danay De Los Santos ALP [Catalytic activity/Vol] 94 U/L Normal 46-116 [facility] Comment on above: Performed By: #### T SH, CMP, T7, LIPID #### [facility] [address] [address] [address] Danay De Los Santos ALT [Catalytic activity/Vol] 17 U/L Normal 14-59 [facility] Comment on above: Performed By: #### T SH, CMP, T7, LIPID #### [facility] [address] [place] [address] Dr. Danay De Los Santos Anion gap [Moles/Vol] 14.3 mmol/L Normal [facility] Comment on above: Performed By: #### T SH, CMP, T7, LIPID #### [facility] [address] [place] [address] Dr. Danay De Los Santos AST [Catalytic activity/Vol] 11 U/L Critically low 15-37 [facility] Comment on above: Performed By: #### T SH, CMP, T7, LIPID #### [facility] [address] [address] [address] Danay De Los Santos Bilirubin [Mass/Vol] 0.3 mg/dL Normal 0.2-1.0 [facility] Comment on above: Performed By: #### T SH, CMP, T7, LIPID #### [facility] [address] [place] [address] Dr. Danay De Los Santos Calcium [Mass/Vol] 9.1 mg/dL Normal 8.5-10.1 [facility] Comment on above: Performed By: #### T SH, CMP, T7, LIPID #### [facility] [address] [place] [address] Dr. Danay De Los Santos Chloride [Moles/Vol] 105 mmol/L Normal 98-107 [facility] Comment on above: Performed By: #### T SH, CMP, T7, LIPID #### [facility] [address] [address] [address] Danay De Los Santos CO2 [Moles/Vol] 29.3 mmol/L Normal 21.0-32.0 [facility] Comment on above: Performed By: #### T SH, CMP, T7, LIPID #### [facility] [address] [address] [address] Danay De Los Santos Creatinine [Mass/Vol] 1.53 mg/dL Critically high 0.55-1.02 [facility] Comment on above: Performed By: #### T SH, CMP, T7, LIPID #### [facility] [address] [place] [address] Dr. Danay De Los Santos EGFR-AF MALAWIAN 41 mL/min/1.73m2 Critically low >=60 [facility] Comment on above: Performed By: #### T SH, CMP, T7, LIPID #### [facility] [address] [address] [address] Danay De Los Santos EGFR-NON AF MALAWIAN 34 mL/min/1.73m2 Critically low >=60 [facility] Comment on above: Performed By: #### T SH, CMP, T7, LIPID #### [facility] [address] [place] [address] Dr. Danay De Los Santos Globulin (S) [Mass/Vol] 3.4 g/dL Normal [facility] Comment on above: Performed By: #### T SH, CMP, T7, LIPID #### [facility] [address] [address] [address] Danay De Los Santos Glucose [Mass/Vol] 192 mg/dL Critically high 74-106 [facility] Comment on above: Performed By: #### T SH, CMP, T7, LIPID #### [facility] [address] [address] [address] Danay De Los Santos Potassium [Moles/Vol] 4.6 mmol/L Normal 3.5-5.1 [facility] Comment on above: Performed By: #### T SH, CMP, T7, LIPID #### [facility] [address] [address] [address] Danay De Los Santos Protein [Mass/Vol] 6.7 g/dL Normal 6.4-8.2 [facility] Comment on above: Performed By: #### T SH, CMP, T7, LIPID #### [facility] [address] [address] [address] Danay De Los Santos Sodium [Moles/Vol] 144 mmol/L Normal 136-145 [facility] Comment on above: Performed By: #### T SH, CMP, T7, LIPID #### [facility] [address] [address] [address] Danay De Los Santos Urea nitrogen [Mass/Vol] 25.0 mg/dL Critically high 7.0-18.0 [facility] Comment on above: Performed By: #### T SH, CMP, T7, LIPID #### [facility] [address] [address] [address] Danay De Los Santos Urea nitrogen/Creatinine [Mass ratio] 16.3 mg/mg Normal [facility] Comment on above: Performed By: #### T SH, CMP, T7, LIPID #### [facility] [address] [place] [address] Dr. Danay De Los Santos TSHon 12-15-2022 TSH 2.181 uIU/mL Normal 0.358-3.[address] [facility] Comment on above: Performed By: #### T SH, CMP, T7, LIPID #### [facility] [address] [place] [address] Dr. Danay De Los Santos VITAMIN D 25 OHon 12-15-2022 VIT D 25-OH 32.9 ng/mL Normal [facility] Comment on above: Performed By: #### T SH, CMP, T7, LIPID #### [facility] [address] [place] [address] Dr. Danay De Los Santos VIT D RANGES SEE BELOW Normal [facility] Comment on above: Result Comment: <20 ng/mL Vit D deficient 20 - <30 ng/mL Vit D insufficient 30 - 100 ng/mL Vit D sufficient >100 ng/mL Potential Toxicity Performed By: #### T SH, CMP, T7, LIPID #### [facility] [address] [place], [place] [address] Dr. Danay De Los Santos ROEL DOP LEG LTon 12-02-19 23 US [...] MORIAH MORRISON Date: 2022-12-01 12:54 Normal [facility] XR Hand Complete Left*on XR Hand Complete Left* CLINICAL HISTORY: Fall with left hand stiffness. COMPARISON: None. RESULT: No distinct acute fracture. No dislocation. Underlying decreased bone mineral density. Mild to moderate scattered degenerative changes. Soft tissue edema. IMPRESSION: No acute osseous findings radiographically. Report reported and signed by Home Lockwood on 08/24/2022 1108 Normal [facility] Checking XR Spine Cervical Complete*o n 08-24-2022 XR [...] Home Lockwood on 08/24/2022 1109 Normal [facility] Checking XR HAND RIMA MIN 3Von 023 XR HAND RIMA MIN 3V EXAM: XR HAND RIMA SD N 3V HISTORY: Pain following fall COMPARISON: None. TECHNIQUE: 3 views of each hand FINDINGS: No visualized fracture, dislocation, subluxation or osseous lesion. Age-related joint space changes. No gross visualized soft tissue edema. IMPRESSION: No visualized abnormality Electronically authenticated by: BRIANNA KU Date: 2022-08-06 20:28 Normal [facility] XR HIP RT 2 3V W [...] by: BRIANNA KU Date: 2022-08-06 20:29 Normal [facility] XR SHOULDER RT 2V or >on XR SHOULDER RT 2V or > EXAM: XR SHOULDER RT 2V or > HISTORY: Pain from fall COMPARISON: None. TECHNIQUE: 3 views FINDINGS: No osseous lesion, fracture, dislocation or subluxation. Moderate degenerative changes of the acromioclavicular joint. No visualized effusion. No visualized soft tissue edema. IMPRESSION: Normal x-rays Electronically authenticated by: BRIANNA KU Date: 2022-08-06 20:21 Normal [facility] XR Foot Complete Left*on XR Foot [...] Drew Looney on 08/04/2022 1044 Normal [facility] Checking XR Knee Complete Left*on XR Knee Complete [...] by Drew Looney on 08/04/2022 1046 Normal [facility] Specialist MRI BRAIN WO CONon 2 [...] BRIANNA GREEN Date: 2022-07-02 14:48 Normal [facility] INSULINon 05-28-2022 Insulin 13.4 uIU/mL Normal 2.6-24.9 [facility] Comment on above: Performed By: #### I NSULIN #### [facility] [address] [place] [address] Dr. Danay De Los Santos CBC AUTO DIFFon 05-26-2022 BASO # 0.1 103/ul Normal 0.0-0.1 [facility] Comment on above: Performed By: #### C BC #### [facility] [address] [place] [address] Dr. Danay De Los Santos Basophils/100 WBC (Bld) 0.8 % Normal 0.2-2.0 [facility] Comment on above: Performed By: #### C BC #### [facility] [address] [place] [address] Dr. Danay De Los Santos EO # 0.6 103/ul Normal 0.0-0.7 [facility] Comment on above: Performed By: #### C BC #### [facility] [address] [place] [address] Dr. Danay De Los Santos Eosinophils/100 WBC (Bld) 5.1 % Normal 0.9-7.0 [facility] Comment on above: Performed By: #### C BC #### [facility] [address] [place] [address] Dr. Danay De Los Santos Erythrocyte distribution width (RBC) [Ratio] 14.7 % Normal 11.0-15.0 [facility] Comment on above: Performed By: #### C BC #### [facility] [address] [place] [address] Dr. Danay De Los Santos Hematocrit (Bld) [Volume fraction] 37.8 % Normal 36.0-48.0 [facility] Comment on above: Performed By: #### C BC #### [facility] [address] [place] [address] Dr. Danay De Los Santos Hemoglobin (Bld) [Mass/Vol] 12.3 g/dL Normal 12.0-16.0 [facility] Comment on above: Performed By: #### C BC #### [facility] [address] [place] [address] Dr. Danay De Los Santos IG # 0.05 10e3/ul Critically high 0.00-0.03 [facility] Comment on above: Performed By: #### C BC #### [facility] [address] [place] [address] Dr. Danay De Los Santos IG % 0.5 % Normal 0.0-0.5 [facility] Comment on above: Performed By: #### C BC #### [facility] [address] [place] [address] Dr. Danay De Los Santos LYMPH # 2.1 103/ul Normal 1.2-3.8 [facility] Comment on above: Performed By: #### C BC #### [facility] [address] [place] [address] Dr. Danay De Los Santos Lymphocytes/100 WBC (Bld) 19.1 % Critically low 20.5-60.0 [facility] Comment on above: Performed By: #### C BC #### [facility] [address] [place] [address] Dr. Danay De Los Santos MANUAL DIFF REQ NO Normal [facility] Comment on above: Performed By: #### C BC #### [facility] [address] [address] [address] Danay De Los Santos MCH (RBC) [Entitic mass] 30.8 pg Normal 26.7-34.0 [facility] Comment on above: Performed By: #### C BC #### [facility] [address] [address] [address] Danay De Los Santos MCHC (RBC) [Mass/Vol] 32.5 g/dL Normal 29.9-35.2 [facility] Comment on above: Performed By: #### C BC #### [facility] [address] [place] [address] Dr. Danay De Los Santos MCV (RBC) [Entitic vol] 94.5 fL Normal 81.0-99.0 [facility] Comment on above: Performed By: #### C BC #### [facility] [address] [place] [address] Dr. Danay De Los Santos MONO # 0.6 103/ul Normal 0.3-0.8 [facility] Comment on above: Performed By: #### C BC #### [facility] [address] [place] [address] Dr. Danay De Los Santos Monocytes/100 WBC (Bld) 5.1 % Normal 1.7-12.0 [facility] Comment on above: Performed By: #### C BC #### [facility] [address] [place] [address] Dr. Danay De Los Santos NEUT # 7.5 103/ul Critically high 1.4-6.5 [facility] Comment on above: Performed By: #### C BC #### [facility] [address] [place] [address] Dr. Danay De Los Santos Neutrophils/100 WBC (Bld) 69.4 % Normal 43.0-75.0 [facility] Comment on above: Performed By: #### C BC #### [facility] [address] [place] [address] Dr. Danay De Los Santos Platelet mean volume (Bld) [Entitic vol] 10.9 fL Normal 9.5-13.5 [facility] Comment on above: Performed By: #### C BC #### [facility] [address] [address] [address] Danay De Los Santos PLT 235 103/ul Normal 150-450 [facility] Comment on above: Performed By: #### C BC #### [facility] [address] [address] [address] Danay De Los Santos RBC 4.00 106/ul Critically low 4.20-5.40 [facility] Comment on above: Performed By: #### C BC #### [facility] [address] [address] [address] Danay De Los Santos WBC 10.8 103/ul Normal 4.0-11.0 [facility] Comment on above: Performed By: #### C BC #### [facility] [address] [place] [address] Dr. Danay De Los Santos FREE THYROXINE INDEX T7on FTI 1.83 Normal 1.30-4.50 [facility] Comment on above: Performed By: #### T SH, CMP, T7, LIPID #### [facility] [address] [place] [address] Dr. Danay De Los Santos T3U 31.0 % Normal 30.0-39.0 [facility] Comment on above: Performed By: #### T SH, CMP, T7, LIPID #### [facility] [address] [place] [address] Dr. Danay De Los Santos T4 [Mass/Vol] 5.90 ug/dL Normal 4.80-13.90 [facility] Comment on above: Performed By: #### T SH, CMP, T7, LIPID #### [facility] [address] [place] [address] Dr. Danay De Los Santos GLYCOHEMOGLOBIN A1Con 2021 ADA RECOMMENDATION SEE BELOW Normal [facility] Comment on above: Result Comment: ADA RECOMMENDED LIMIT 4.0 - 6.0 ADA THERAPEUTIC TARGET < 7.0 ACTION SUGGESTED > 7.0 Performed By: #### A 1C #### [facility] [address] [place] [address] Dr. Danay De Los Santos Glucose [Mass/Vol] 186 mg/dL Normal [facility] Comment on above: Performed By: #### A 1C #### [facility] [address] [address] [address] Danay De Los Santos HbA1c (Bld) [Mass fraction] 8.1 % Critically high 4.5-6.2 [facility] Comment on above: Performed By: #### A 1C #### [facility] [address] [address] [address] Danay De Los Santos IRONon 05-26-2022 Iron [Mass/Vol] 61.0 ug/dL Normal 50.0-170.0 [facility] Comment on above: Performed By: #### T SH, CMP, T7, LIPID #### [facility] [address] [place] [address] Dr. Danay De Los Santos LIPID PROFILEon 05-26-2022 CHOL-HDL RATIO NORM SEE BELOW Normal [facility] Comment on above: Result Comment: 3.3 - 4.4 LOW RISK 4.4 - 7.1 AVERAGE RISK 7.1 - 11.0 MODERATE RISK >11.0 HIGH RISK Performed By: #### T SH, CMP, T7, LIPID #### [facility] [address] [address] [address] Danay De Los Santos Cholesterol [Mass/Vol] 130 mg/dL Normal <=200 [facility] Comment on above: Performed By: #### T SH, CMP, T7, LIPID #### [facility] [address] [address] [address] Danay De Los Santos Cholesterol in HDL [Mass/Vol] 40 mg/dL Normal 40-60 [facility] Comment on above: Performed By: #### T SH, CMP, T7, LIPID #### [facility] [address] [address] [address] Danay De Los Santos Cholesterol in LDL [Mass/Vol] 75.8 mg/dL Normal [facility] Comment on above: Performed By: #### T SH, CMP, T7, LIPID #### [facility] [address] [address] [address] Danay De Los Santos Cholesterol.total/Cho lesterol in HDL [Mass ratio] 3.3 {ratio} Normal [facility] Comment on above: Performed By: #### T SH, CMP, T7, LIPID #### [facility] [address] [address] [address] Danay De Los Santos HDL NORMAL > or = 60 mg/dl - LO W CARDIOVASCULAR RISK <40 mg/dl - HIGH CARDIOVASCULAR RISK Normal [facility] Comment on above: Performed By: #### T SH, CMP, T7, LIPID #### [facility] [address] [address] [address] Danay De Los Santos LDL CALC NORMAL SEE BELOW Normal [facility] Comment on above: Result Comment: <100 mg/dl OPTIMAL 100 - 129 mg/dl NEAR OR ABOVE OPTIMAL 130 - 159 mg/dl BORDERLINE HIGH 160 - 189 mg/dl HIGH >190 mg/dl VERY HIGH Performed By: #### T SH, CMP, T7, LIPID #### [facility] [address] [address] [address] Danay De Los Santos Triglyceride [Mass/Vol] 71 mg/dL Normal <=150 [facility] Comment on above: Performed By: #### T SH, CMP, T7, LIPID #### [facility] [address] [address] [address] Danay De Los Santos VLDL CALC 14.2 mg/dL Normal [facility] Comment on above: Performed By: #### T SH, CMP, T7, LIPID #### [facility] [address] [address] [address] Danay De Los Santos PROF 14(COMP METB)on 022 Albumin [Mass/Vol] 3.4 g/dL Normal 3.4-5.0 [facility] Comment on above: Performed By: #### T SH, CMP, T7, LIPID #### [facility] [address] [place] [address] Dr. Danay De Los Santos Albumin/Globulin [Mass ratio] 1.0 {ratio} Normal [facility] Comment on above: Performed By: #### T SH, CMP, T7, LIPID #### [facility] [address] [place] [address] Dr. Danay De Los Santos ALP [Catalytic activity/Vol] 92 U/L Normal 46-116 [facility] Comment on above: Performed By: #### T SH, CMP, T7, LIPID #### [facility] [address] [address] [address] Danay De Los Santos ALT [Catalytic activity/Vol] 15 U/L Normal 14-59 [facility] Comment on above: Performed By: #### T SH, CMP, T7, LIPID #### [facility] [address] [address] [address] Danay De Los Santos Anion gap [Moles/Vol] 10.4 mmol/L Normal [facility] Comment on above: Performed By: #### T SH, CMP, T7, LIPID #### [facility] [address] [place] [address] Dr. Danay De Los Santos AST [Catalytic activity/Vol] 12 U/L Critically low 15-37 [facility] Comment on above: Performed By: #### T SH, CMP, T7, LIPID #### [facility] [address] [place] [address] Dr. Danay De Los Santos Bilirubin [Mass/Vol] 0.4 mg/dL Normal 0.2-1.0 [facility] Comment on above: Performed By: #### T SH, CMP, T7, LIPID #### [facility] [address] [place] [address] Dr. Danay De Los Santos Calcium [Mass/Vol] 8.7 mg/dL Normal 8.5-10.1 [facility] Comment on above: Performed By: #### T SH, CMP, T7, LIPID #### [facility] [address] [place] [address] Dr. Danay De Los Santos Chloride [Moles/Vol] 107 mmol/L Normal 98-107 [facility] Comment on above: Performed By: #### T SH, CMP, T7, LIPID #### [facility] [address] [place] [address] Dr. Danay De Los Santos CO2 [Moles/Vol] 28.9 mmol/L Normal 21.0-32.0 [facility] Comment on above: Performed By: #### T SH, CMP, T7, LIPID #### [facility] [address] [place] [address] Dr. Danay De Los Santos Creatinine [Mass/Vol] 1.18 mg/dL Critically high 0.55-1.02 [facility] Comment on above: Performed By: #### T SH, CMP, T7, LIPID #### [facility] [address] [place] [address] Dr. Danay De Los Santos EGFR-AF MALAWIAN 55 mL/min/1.73m2 Critically low >=60 [facility] Comment on above: Performed By: #### T SH, CMP, T7, LIPID #### [facility] [address] [place] [address] Dr. Danay De Los Santos EGFR-NON AF MALAWIAN 46 mL/min/1.73m2 Critically low >=60 [facility] Comment on above: Performed By: #### T SH, CMP, T7, LIPID #### [facility] [address] [place] [address] Dr. Danay De Los Santos Globulin (S) [Mass/Vol] 3.3 g/dL Normal [facility] Comment on above: Performed By: #### T SH, CMP, T7, LIPID #### [facility] [address] [place] [address] Dr. Danay De Lo sSantos Glucose [Mass/Vol] 153 mg/dL Critically high 74-106 [facility] Comment on above: Performed By: #### T SH, CMP, T7, LIPID #### [facility] [address] [place] [address] Dr. Daany De Los Santos Potassium [Moles/Vol] 4.3 mmol/L Normal 3.5-5.1 [facility] Comment on above: Performed By: #### T SH, CMP, T7, LIPID #### [facility] [address] [place] [address] Dr. Danay De Los Santos Protein [Mass/Vol] 6.7 g/dL Normal 6.4-8.2 [facility] Comment on above: Performed By: #### T SH, CMP, T7, LIPID #### [facility] [address] [place] [address] Dr. Danay De Los Santos Sodium [Moles/Vol] 142 mmol/L Normal 136-145 [facility] Comment on above: Performed By: #### T SH, CMP, T7, LIPID #### [facility] [address] [address] [address] Danay De Los Santos Urea nitrogen [Mass/Vol] 16.0 mg/dL Normal 7.0-18.0 [facility] Comment on above: Performed By: #### T SH, CMP, T7, LIPID #### [facility] [address] [address] [address] Danay De Los Santos Urea nitrogen/Creatinine [Mass ratio] 13.6 mg/mg Normal [facility] Comment on above: Performed By: #### T SH, CMP, T7, LIPID #### [facility] [address] [address] [address] Danay De Los Santos TSHon 05-26-2022 TSH 1.443 uIU/mL Normal 0.358-3.740 [facility] Comment on above: Performed By: #### T SH, CMP, T7, LIPID #### [facility] [address] [address] [address] Danay De Los Santos XR DEXA [...] by: BECKY OWENS Date: 2022-04-05 12:11 Normal [facility] GLYCOHEMOGLOBIN A1Con 2021 ADA RECOMMENDATION SEE BELOW Normal [facility] Comment on above: Result Comment: ADA RECOMMENDED LIMIT 4.0 - 6.0 ADA THERAPEUTIC TARGET < 7.0 ACTION SUGGESTED > 7.0 Performed By: #### T SH, CMP, T7, LIPID #### [facility] [address] [address] [address] Danay De Los Santos Glucose [Mass/Vol] 174 mg/dL Normal [facility] Comment on above: Performed By: #### T SH, CMP, T7, LIPID #### [facility] [address] [place], [place] [address] Dr. Danay De Los Santos HbA1c (Bld) [Mass fraction] 7.7 % Critically high 4.5-6.2 [facility] Comment on above: Performed By: #### T SH, CMP, T7, LIPID #### [facility] [address] [address] [address] Danay De Los Santos MG MAMM SCREEN 3D RIMA CADon 02-14-2022 MG MAMM SCREEN 3D RIMA CAD Patient: VIRGEN GONZALES Exam Date: 02/14/2022 : 1955 Gender:F Ordering : AGGIE DAVIS [facility] Admission #: [id number] Family : Order #: [id number] CLICK HERE TO VIEW EXAM RADIOLOGY REPORT [...] unknown cancer at age 24. LOCATION: [facility] BREAST COMPOSITION: Heterogeneously dense,which may obscure [...] M.D. on 02/14/2022 at 16:12 Normal [facility] CARDIAC STRESS/REST ARTEM Kwon 01-27-2020 [facility] CARDIAC STRESS/REST INJECTION Patient Name: VIRGEN GONZALES STUDY: MYOCARDIAL PERFUSION STRESS TEST WITH LEXISCAN Performing facility: [facility], [address] [place] [address], [address], [address] Provider: Catarino Franks MD, [facility] PCP: Dr. Nicola Granger Supervising provider: Catarino Franks MD, [facility] INDICATION: Abnormal EKG; Pre-operative risk assessment for Knee surgery scheduled at unknown on unknown. RBBB HISTORY: Gender: F; Age: 64 y/o ; Height: 152.4 cm; Weight: 77.1972108 kg. High Cholesterol; Abnormal EKG; Diabetes; Family HX CAD; HTN; Smoking COMPARISON: No comparison. ACCESSION NUMBER(S): [id number]; [id number]; [id number] ORDERING CLINICIAN: CATARINO FRANKS TECHNIQUE: ONE DAY [...] comparison. Electronically signed by: CATARINO FRANKS MD [facility] Vital Signs Date Time Vital Sign Value Performing Clinician Facility 05-18-2024 10:53-0400 Body height 152.4 cm Da [employer] DO Work Phone: [facility] 05-18-2024 10:53-0400 Body mass index (BMI) [Ratio] 38.08 kg/m2 Da [employer] DO Work Phone: [facility] 05-18-2024 10:53-0400 Body weight 88.45 kg Da [employer] DO Work Phone: [facility] 04-13-2024 11:09-0400 Body height 152.4 cm Da [employer] DO Work Phone: [facility] 04-13-2024 11:09-0400 Body mass index (BMI) [Ratio] 38.08 kg/m2 Da [employer] DO Work Phone: [facility] 04-13-2024 11:09-0400 Body weight 88.45 kg Da [employer] DO Work Phone: [facility] 04-10-2024 09:25-0400 Body height 149.9 cm Da [employer] DO Work Phone: [facility] 04-10-2024 09:25-0400 Body mass index (BMI) [Ratio] 39.39 kg/m2 Da [employer] DO Work Phone: [facility] 04-10-2024 09:25-0400 Body weight 88.45 kg Da Phillip DO Work Phone: [facility] 08-27-2023 15:38-0500 Body height 149.9 cm Brice Oliva DO Work Phone: [facility] 08-27-2023 15:38-0500 Body mass index (BMI) [Ratio] 39.59 kg/m2 Brice Oliva DO Work Phone: [facility] 08-27-2023 15:38-0500 Body temperature 97.39 [degF] Brice Oliva DO Work Phone: [facility] 08-27-2023 15:38-0500 Body weight 88.91 kg Brice Oliva DO Work Phone: [facility] 06-07-2023 08:27-0500 Heart rate 77 /min Brice Oliva [facility] 06-07-2023 08:27-0500 SaO2% (BldA) [Mass fraction] 98 % Brice Oliva [facility] 06-07-2023 08:26-0500 Respiratory rate 20 /min Brice Oliva [facility] 06-07-2023 08:26-0500 Blood Pressure Location Brice Oliva [facility] 06-07-2023 08:26-0500 Diastolic blood pressure 64 mm[Hg] Brice Oliva [facility] 06-07-2023 08:26-0500 Mean blood pressure 77 mm[Hg] Bricelaura Oliva [facility] 06-07-2023 08:26-0500 Systolic blood pressure 102 mm[Hg] Bricelaura Oliva [facility] 06-07-2023 08:25-0500 Body temperature 97.88 [degF] Bricelaura Oliva [facility] 06-07-2023 08:05-0500 Blood Pressure Location Brice Oliva [facility] 06-07-2023 08:05-0500 Diastolic blood pressure 59 mm[Hg] Brice Oliva [facility] 06-07-2023 08:05-0500 Heart rate 73 /min Brice Oliva [facility] 06-07-2023 08:05-0500 Respiratory rate 20 /min Brice Oliva [facility] 06-07-2023 08:05-0500 SaO2% (BldA) [Mass fraction] 95 % Brice Oliva [facility] 06-07-2023 08:05-0500 Systolic blood pressure 114 mm[Hg] Brice Oliva [facility] 06-07-2023 07:30-0500 Blood Pressure Location Brice Oliva [facility] 06-07-2023 07:30-0500 Diastolic blood pressure 70 mm[Hg] Brice Oliva [facility] 06-07-2023 07:30-0500 Heart rate 70 /min Brice Oliva [facility] 06-07-2023 07:30-0500 Respiratory rate 20 /min Brice Oliva [facility] 06-07-2023 07:30-0500 SaO2% (BldA) [Mass fraction] 96 % Brice Oliva [facility] 06-07-2023 07:30-0500 Systolic blood pressure 114 mm[Hg] Brice Brown [facility] 06-07-2023 06:52-0500 Mean blood pressure 76 mm[Hg] Brice Oliva [facility] 06-07-2023 06:49-0500 Body temperature 97.88 [degF] Brice Oliva [facility] 06-07-2023 06:49-0500 Mean blood pressure 79 mm[Hg] Brice Oliva [facility] Encounters Encounter Date Encounter Type Care Provider Facility Start: 05-18-2024 End: 05-18-2024 ambulatory DA PHILLIP Not Available Start: 05-18-2024 End: 05-18-2024 Office outpatient visit 15 minutes Da Phillip DO Work Phone: [facility] Comment on above: Nontoxic multinodula r goiter (CMS/HCC) (Primary Dx); Thyroid nodule (CMS/HCC); Hearing loss, unspecified hearing loss type, unspecified laterality Start: 05-04-2024 End: 05-04-2024 Bamboo flowsheet Da Phillip DO Work Phone: [facility] Start: 05-04-2024 End: 05-04-2024 Bamboo flowsheet Da Phillip DO Work Phone: [facility] Start: 04-13-2024 End: 04-13-2024 Bamboo flowsheet Da Phillip DO Work Phone: [facility] Start: 04-13-2024 End: 04-13-2024 Bamboo flowsheet Da Phillip DO Work Phone: [facility] Start: 04-13-2024 End: 04-13-2024 Departed Referred [employer] Aggie Davis Work Phone: [facility] [place] Work Phone: Start: 04-13-2024 End: 04-13-2024 ambulatory [employer] Aggie Davis Work Phone: [facility] Work Phone: Start: 04-13-2024 End: 04-13-2024 Office outpatient visit 25 minutes Da Rubio Biedenbach DO Work Phone: [facility] Comment on above: Nontoxic multinodula r goiter (CMS/HCC) (Primary Dx); Thyroid nodule (CMS/HCC) Start: 04-10-2024 End: 04-10-2024 Bamboo flowsheet Da Rubio Biedenbach DO Work Phone: [facility] Start: 04-10-2024 End: 04-10-2024 Bamboo flowsheet Da S Biedenbach DO Work Phone: [facility] Start: 04-10-2024 End: 04-10-2024 Office outpatient visit 25 minutes Da S Biedenbach DO Work Phone: [facility] Comment on above: Thyroid nodule (CMS/ HCC) (Primary Dx); Nontoxic multinodular goiter (CMS/HCC) Start: 04-10-2024 End: 04-10-2024 ambulatory DA PHILLIP Not Available Start: 03-26-2024 End: 03-26-2024 Patient encounter procedure [employer] Aggie Davis Work Phone: [facility] [place] Work Phone: Start: 03-26-2024 End: 03-26-2024 ambulatory [employer] Aggie Davis Work Phone: [facility] Work Phone: Start: 03-26-2024 End: 03-26-2024 ambulatory DA PHILLIP Not Available Start: 02-14-2024 End: 02-14-2024 ambulatory [employer] Aggie Davis Work Phone: [facility] Work Phone: Start: 02-14-2024 End: 02-14-2024 Departed Referred [employer] Aggie Davis Work Phone: [facility] Start: 01-25-2024 Non-patient / Non-visit [employer] P renetta Davis Work Phone: [facility] Work Phone: Start: 12-31-2023 End: 12-31-2023 ambulatory BRICE OLIVA Not Available Start: 11-11-2023 End: 02-26-2024 ambulatory Brice Oliva Facility:[facility] Start: 10-29-2023 End: [...] Not Available Start: 08-22-2023 End: 08-22-2023 ambulatory [employer] Aggie Davis Work Phone: [facility] Work Phone: Start: 08-22-2023 End: 08-22-2023 Discharged Recurring [employer] Aggie Davis Work Phone: [facility] Team Manager [address] Start: 08-06-2023 End: 08-06-2023 ambulatory BRICE OLIVA Not Available Start: 07-23-2023 End: 07-23-2023 ambulatory BRICE OLIVA Not Available Start: 07-16-2023 End: 07-16-2023 ambulatory BRICE OLIVA Not Available Start: 06-18-2023 End: 06-18-2023 ambulatory BRICE OLIVA Not Available Start: 06-07-2023 End: 06-07-2023 Admission to same day surgery center Brice Oliva [facility] Start: 06-07-2023 End: 06-07-2023 ambulatory Brice Oliva Facility:[facility] Start: 12-26-2022 ambulatory AGGIE SUSAN Facility: [facility] Start: 12-20-2022 End: 12-21-2022 ambulatory AGGIE SUSAN Facility:[facility] Start: 12-15-2022 End: 12-16-2022 ambulatory AGGIE SUSAN Facility:[facility] Start: 12-01-2022 End: 12-02-2022 ambulatory AGGIE SUSAN Facility:[facility] Start: 12-01-2022 End: 12-01-2022 ambulatory AGGIE SUSAN Facility:[facility] Start: 08-06-2022 End: 08-06-2022 ambulatory AGGIE SUSAN Facility:[facility] Start: 07-02-2022 End: 07-03-2022 ambulatory AGGIE SUSAN Facility:[facility] Start: 05-26-2022 End: 05-27-2022 ambulatory AGGIE SUSAN Facility:[facility] Start: 04-05-2022 End: 04-06-2022 ambulatory GAGIE SUSAN Facility:[facility] Start: 03-25-2022 ambulatory AGGIE SUSAN Facility: [facility] Start: 03-15-2022 End: 03-16-2022 ambulatory AGGIE SUSAN Facility:[facility] Start: 02-14-2022 End: 02-15-2022 ambulatory AGGIE SUSAN Facility:[facility] Start: 11-09-2021 End: 11-09-2021 Patient encounter procedure Michele Jane [facility] Procedures Date Procedure Procedure Detail Performing [...] Michele perez Release of trigger finger Emilee Jane right carpel tunnel Michele dill right knee arthroscopy x2 Emilee reynaldo Jane Plan of Treatment Date Care Activity Detail Author Start: 06-01-2025 Pneumococcal Vaccine : 65+ Years (3 - PPSV23 or PCV20) Pneumococcal Vaccine: 65+ Years (3 - PPSV23 or PCV20) [facility] Start: 06-01-2025 Pneumococcal Vaccine : 65+ Years (3 of 3 - PPSV23 or PCV20) Pneumococcal Vaccine: 65+ Years (3 of 3 - PPSV23 or PCV20) [facility] Start: 11-09-2024 End: 11-09-2024 Patient encounter procedure 11/09/2024 10:00 AM EDT Office Visit [facility] [address] [place] [address] Da Phillip, DO [address] [place] [address] [facility] Start: 07-27-2024 End: 07-27-2024 Patient encounter procedure 07/27/2024 1:00 PM EST [facility] [address] [place] [address] Chana Iglesias, AUD [address] [place] [address] [facility] Start: 05-04-2024 End: 05-04-2024 Patient encounter procedure 05/04/2024 10:15 AM EDT Office Visit [facility] [address] [place] [address] Da Phillip, DO [address] [place] [address] Arrived [facility] Comment on above: Arrived Start: 04-13-2024 End: 04-13-2024 Patient encounter procedure 04/13/2024 11:00 AM EDT Office Visit [facility] [address] [place] [address] Da Phillip, DO [address] [place] [address] [facility] Start: 04-10-2024 End: 04-10-2024 Patient encounter procedure 04/10/2024 9:15 AM EDT Office Visit [facility] [address] [place] [address] Da Phillip, DO [address] [place] [address] Arrived [facility] Comment on above: Arrived Start: 03-29-2024 Influenza vaccination Influenza Vacc ine (#1) [facility] Start: 10-08-2023 End: 10-08-2023 Patient encounter procedure 10/08/2023 10:00 AM EDT Office Visit [facility] [address] [place] [id number] Brice Oliva DO [address] [place] [address] [facility] Start: 07-29-2023 Pneumococcal Vaccine : 65+ Years (3 of 3 - PPSV23 or PCV20) Pneumococcal Vaccine: 65+ Years (3 of 3 - PPSV23 or PCV20) [facility] Start: 1994 Screening for malign ant neoplasm of breast Mammogram [facility] Start: 1973 Urine screening for protein Diabetes: Urine Protein Screening [facility] Start: 1964 Glaucoma screening Diabetes: R etinopathy Screening [facility] Start: 1955 Hemoglobin A1c measurement Diabetes: Hemoglobin A1C [facility] Start: 1955 Medicare Annual Well ness (AWV) Medicare Annual Wellness (AWV) [facility] Start: 1955 Screening for malign ant neoplasm of colon [facility] Immunizations Immunization Date Immunization Notes Care Provider Fa cility 12-27-2023 zoster vaccine recombinant Da Phillip DO Work Phone: [facility] 06-30-2023 Influenza, High-dose Seasonal, Quadrivalent, Preservative Free Da Phillip DO Work Phone: [facility] 06-30-2023 influenza virus vaccine, unspecified formulation Da Phillip DO Work Phone: [facility] 10-30-2022 Influenza, High-dose Seasonal, Quadrivalent, Preservative Free aD Phillip DO Work Phone: [facility] 05-31-2022 Influenza, Seasonal, Quadrivalent, Adjuvanted Da Phillip DO Work Phone: [facility] 11-14-2020 SARS-CoV-2 (COVID-19 ) mRNA-1273 vaccine Michele Buck [facility] 06-01-2020 pneumococcal conjuga te vaccine, 13 valent Da Phillip DO Work Phone: [facility] 06-01-2020 Seasonal trivalent influenza vaccine, adjuvanted, preservative free Da Phillip DO Work Phone: [facility] 04-28-2019 influenza, seasonal, injectable Da Phillip DO Work Phone: [facility] 07-29-2018 pneumococcal polysaccharide vaccine, 23 valent Da Phillip DO Work Phone: [facility] 04-18-2018 tetanus toxoid, redu soledad diphtheria toxoid, and acellular pertussis vaccine, adsorbed [employer] Aggie Davis Work Phone: [facility] Payers Date Payer Category Payer Self-pay [id number] 2022 Unknown [employer] [id number] 2022-Present [address] [place] [address] [id number] 2022 Medicare [employer] MEDICARE [id number] 2022-Present [address] [address] [place] [address] [id number] 2022 Medicare (Managed Care) [employer] [id number] 1960 Medicare [id number] 1960 Unknown [id number] 1954 Unknown [id number] 2.16.840.1.014582.3.579. 2.593 1954 Unknown [id number] 2.16.840.1.102051.3.579. 2.593 1954 Unknown [id number] 2.16.840.1.784749.3.579. 2.593 1954 Unknown [id number] 2.16.840.1.844856.3.579. 2.593 1954 Unknown [id number] 2.16.840.1.048472.3.579. 2.593 1954 Unknown [id number] 2.16.840.1.765199.3.579. 2.593 1954 Unknown [id number] 2.16.840.1.484255.3.579. 2.593 1954 Unknown [id number] 2.16.840.1.432579.3.579. 2.593 1954 Unknown [id number] 2.16.840.1.310347.3.579. 2.593 1954 Unknown [id number] 2.16.840.1.575485.3.579. 2.593 1954 Unknown [id number] 2.16.840.1.379103.3.579. 2.593 1954 Unknown [id number] 2.16.840.1.682864.3.579. 2.593 1954 Unknown [id number] 2.16.840.1.016258.3.579. 2.727 1954 Unknown [id number] 2.16.840.1.550447.3.579. 2.727 1954 Unknown [id number] 2.16.840.1.693364.3.579. 2.1259 1954 Unknown [id number] 2.16.840.1.162482.3.579. 2.1259 1954 Unknown [id number] 2.16.840.1.858061.3.579. 2.1259 1954 Unknown [id number] 2.16.840.1.108390.3.579. 2.1259 1954 Unknown [id number] 2.16.840.1.730867.3.579. 2.1258 1954 Unknown [id number] 2.16.840.1.353927.3.579. 2.1258 1954 Unknown [id number] 2.16.840.1.910512.3.579. 2.1258 1954 Unknown [id number] 2.16.840.1.345929.3.579. 2.1258 1954 Unknown [id number] 2.16.840.1.912429.3.579. 2.1258 1954 Unknown [id number] 2.16.840.1.257976.3.579. 2.1258 1954 Unknown [id number] 2.16.840.1.531458.3.579. 2.1258 1954 Unknown [id number] 2.16.840.1.579976.3.579. 2.1258 1954 Unknown [id number] 2.16.840.1.957683.3.579. 2.1258 1954 Unknown [id number] 2.16.840.1.197526.3.579. 2.1258 1954 Unknown [id number] 2.16.840.1.478473.3.579. 2.1258 1954 Unknown [id number] 2.16.840.1.880545.3.579. 2.1258 1954 Unknown [id number] 2.16.840.1.203497.3.579. 2.1258 1954 Unknown [id number] 2.16.840.1.196541.3.579. 2.1258 1954 Unknown [id number] 2.16.840.1.864197.3.579. 2.1258 1954 Unknown [id number] 2.16.840.1.880542.3.579. 2.1258 1954 Unknown [id number] 2.16.840.1.995142.3.579. 2.1258 1954 Unknown [id number] 2.16.840.1.034273.3.579. 2.1258 1954 Unknown [id number] 2.16.840.1.424319.3.579. 2.1258 1954 Unknown [id number] 2.16.840.1.698735.3.579. 2.1258 1954 Unknown [id number] 2.16.840.1.265998.3.579. 2.1258 1954 Unknown [id number] 2.16.840.1.962134.3.579. 2.1258 1954 Unknown [id number] 2.16.840.1.907221.3.579. 2.1258 1954 Unknown [id number] 2.16.840.1.906261.3.579. 2.1258 1954 Unknown [id number] 2.16.840.1.162525.3.579. 2.1258 1954 Unknown [id number] 2.16.840.1.508320.3.579. 2.125 Unknown [place] [employer] [id number] Unknown Regular Auto/Medical [id number] Unknown [id number] 2.16.840.1.478879.3.579. 2.531 Unknown [id number] 2.16.840.1.480858.3.579. 2.531 Unknown [id number] 2.16.840.1.941237.3.579. 2.531 Unknown [id number] 2.16.840.1.702632.3.579. 2.531 Social History Date Type Detail Facility Tobacco Cigarettes [facility] Comment on above: 05/30 pkg daily Start: 08-27-2023 End: 04-10-2024 Sex Assigned At Female [facility] Tobacco smoking status No Smoking Status Entered [facility] Start: 05-07-2023 Tobacco smoking status TXIS Smokes tobacco daily [facility] History of tobacco use Cigarette Smoker [facility] Start: 05-07-2023 Tobacco use and exposure Smokeless tobacco non-user [facility] Start: 08-27-2023 End: 04-13-2024 Alcohol intake Lifetime non-drinker (finding) [facility] Start: 08-27-2023 End: 04-10-2024 History of Social function [facility] Start: 05-07-2023 Alcohol Comment caffeine intak e: more than 4 cups per day of coffee, pop, tea [facility] Start: 1955 Sex Assigned At Not on file [facility] Start: 04-12-2023 Tobacco smoking status NHIS Smoker (finding) [facility] Start: 1955 Sex Assigned At Female [facility] [place] [facility] Procedure Code Equipment Code Equipment Origin al Text Equipment Identifier Dates [id number] Start: 04-05-2023 TEST BLOOD SUGAR THREE TIMES DAILY for 90 [id number] Blood Sugar Diagnostic (Onetouch Ultra Test) strip Start: 10-02-2017 End: 01-06-2020 Blood Sugar Diagnostic (Onetouch Ultra Test) strip Start: 10-02-2017 End: 01-06-2020 Blood Sugar Diagnostic (Onetouch Ultra Test) strip Start: 10-02-2017 End: 01-06-2020 Blood Sugar Diagnostic (Onetouch Ultra Test) strip Start: 10-02-2017 End: 01-06-2020 Functional Status Date Assessment Result Facility 06-07-2023 Functional Status N/A [facility] Clinical Notes 03-16-2022 to 05-18-2024 Da Phillip, DO - 05/18/2024 10:45 AM Katherine Phillip, DO - 04/13/2024 11:00 AM Katherine Phillip, DO - 04/10/2024 9:15 AM Alejandrina Henning, ARRT - 08/27/2023 3:45 PM EST Note Date & Type Note Facility 05-18-2024 History of Present illness Narrative Subjective Patient ID: Virgen Zelaya is a 68 y.o. female who presents for Thyroid Nodule (FNA results) HPI This patient presents for follow-up of needle aspiration biopsy of her thyroid gland. Review of Systems Patient states to be doing relatively well. Not having any difficulties with swallow or voice. Does describe difficulties with her hearing. The rest of her review of systems is unchanged. Objective ENT Physical Exam Gross examination of the neck reveals no evidence of mass or lesion. Results of her genetic testing of her thyroid aspirate reveals only 4% possibility of malignancy. This is discussed with her in depth. Assessment/Plan Diagnoses and all orders for this visit: Nontoxic multinodular goiter (CMS/HCC) Comments: Recommend repeat thyroid ultrasound in 6 months for surveillance. Thyroid nodule (CMS/HCC) Comments: Do not recommend surgical excision. Will follow. Hearing loss, unspecified hearing loss type, unspecified laterality Comments: Patient to follow-up with audiology regarding hearing test Thyroid observation: The patient fully understands that a benign process is not guaranteed and that a cancerous process is possible. The patient fully understands and wishes to continue surveillance at this time. documented in this encounter [facility] 04-13-2024 History of Present illness Narrative Subjective Patient ID: Virgen Zelaya is a 68 y.o. female who presents for Thyroid Nodule (FNA) HPI This patient presents for recheck of multinodular goiter with dominant nodules of the right thyroid lobe and isthmus. Patient presents for repeat needle aspiration biopsy. Prior biopsy revealed atypical cells on the right and nondiagnostic in the isthmus. Genetic testing not completed. Review of Systems Patient denies any difficulties with swallow or voice. Has not noticed any difficulties with severe fatigue or weight change. The rest of her review of systems is negative.. Allergies as of 04/13/2024 - Reviewed 04/13/2024 Allergen Reaction Noted Hydrocodone Unknown 07/13/2021 Hydrocodone-acetaminophen Unknown 07/30/2014 Oxycodone-acetaminophen 07/13/2021 Penicillins 07/30/2014 Propoxyphene Itching and Unknown 11/30/2016 Tramadol 07/13/2021 Codeine Rash 07/13/2021 Past Medical History: Diagnosis Date Arthritis Arthritis 03/25/2024 Arthropathy of left hip 03/25/2024 Asthma ([facility]) 03/25/2024 Back pain 03/25/2024 Bilateral tinnitus 03/25/2024 Breast mass Chronic low back pain 03/25/2024 Chronic pharyngitis 03/25/2024 Chronic reactive otitis externa of right ear Chronic reactive otitis externa of right ear 03/25/2024 Current smoker 03/25/2024 Added secondary to documentation in Social History. Added secondary to documentation in Social History. Depression ([facility]) Diabetes mellitus ([facility]) 03/25/2024 Disc displacement, lumbar 03/25/2024 Dyslipidemia ([facility]) 03/25/2024 Ear pain, right Greater trochanteric bursitis of left hip 03/25/2024 H/O hypercholesterolemia 03/25/2024 Hearing loss Hearing loss 03/25/2024 Heart disease HLD (hyperlipidemia) (CMS/[facility]) HTN (hypertension) ([facility]) HTN (hypertension) (CMS/[facility]) 03/25/2024 Hyperlipidemia ([facility]) 03/25/2024 Kidney stone Kidney stone 03/25/2024 Lipoma of back 03/25/2024 Loose body in knee 03/25/2024 SD (myocardial infarction) (CMS/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) Pneumonia Pneumonia 03/25/2024 Pseudogout of right knee 03/25/2024 Purulent bronchitis ([facility]) 03/25/2024 Right leg pain 11/30/2016 Sensorineural hearing loss (SNHL) of both ears 03/25/2024 Stroke (CMS/[facility]) 03/25/2024 Tobacco abuse 03/25/2024 Type 2 diabetes mellitus ([facility]) Type 2 diabetes mellitus ([facility]) 03/25/2024 Uterus cancer ([facility]) Work related injury 11/30/2016 Current Outpatient Medications: albuterol HFA 90 mcg/act inhaler, , Disp: , Rfl: alendronate (Fosamax) 70 MG tablet, 1 tablet Orally once weekly for 90 days, Disp: , Rfl: ASPIRIN 81 MG chewable tablet, 1 (one) time each day at the same time., Disp: , Rfl: Blood Glucose Monitoring Suppl (True Metrix Air Glucose Meter) w/Device kit, , Disp: , Rfl: busPIRone (Buspar) 7.5 MG tablet, every 12 (twelve) hours., Disp: , Rfl: cetirizine (ZyrTEC) 10 MG tablet, 1 (one) time each day at the same time., Disp: , Rfl: ciprofloxacin (Cipro) 500 MG tablet, Take 500 mg by mouth every 12 (twelve) hours, Disp: , Rfl: esomeprazole (NexIUM) [address] capsule, 1 capsule 1 (one) time each day at the same time., Disp: , Rfl: ferrous sulfate 325 (65 Fe) MG tablet, 1 (one) time each day at the same time, Disp: , Rfl: Flovent HFA 110 MCG/ACT inhaler, every 12 (twelve) hours., Disp: , Rfl: FLUoxetine (PROzac) 20 MG capsule, 1 (one) time each day at the same time., Disp: , Rfl: hydroCHLOROthiazide (HYDRODiuril) 25 MG tablet, 1 (one) time each day at the same time., Disp: , Rfl: Jardiance 25 MG, (Prior Auth: Rx Ref#:[id number]) Oral for 90, Disp: , Rfl: Lasix 20 MG tablet, 1 tablet Orally Once a day as needed for 90 days, Disp: , Rfl: lisinopril 10 MG tablet, 1 (one) time each day at the same time., Disp: , Rfl: naproxen (Naprosyn) 500 MG tablet, Take 1 tablet (500 mg) by mouth 2 (two) times a day as needed for mild pain Take with food, Disp: 60 tablet, Rfl: 0 omeprazole (PriLOSEC) [address] capsule, , Disp: , Rfl: Ozempic, 0.25 or 0.5 MG/DOSE, 2 MG/3ML solution pen-injector, 0.25 mg Subcutaneous weekly for 30 days, Disp: , Rfl: potassium chloride CR (K-Tab) 20 MEQ ER tablet, 1 (one) time each day at the same time, Disp: , Rfl: pregabalin (Lyrica) 75 MG capsule, TAKE 1 CAPSULE TWICE DAILY for 30, Disp: , Rfl: pseudoephedrine-Ibuprofen 30-200 MG tablet per tablet, every 6 (six) hours, Disp: , Rfl: RA Vitamin C 500 MG chewable tablet, Chew 500 mg in the morning. chew., Disp: , Rfl: ReliOn Insulin Syringe 31G X 15/64 0.3 ML misc, USE 1 ONCE DAILY DIRECTED, Disp: , Rfl: simvastatin (Zocor) 40 MG tablet, 1 (one) time each day at the same time., Disp: , Rfl: True Metrix Blood Glucose Test test strip, TEST BLOOD SUGAR THREE TIMES DAILY for 90, Disp: , Rfl: TRUEplus Lancets 33G misc, , Disp: , Rfl: Past Surgical History: Procedure Laterality Date CARPAL TUNNEL RELEASE Bilateral CHOLECYSTECTOMY 2005 FOOT SURGERY 1973 needle in foot removed HYSTERECTOMY 1988 KNEE SURGERY Right 2006 NAIL REMOVAL toenails removed x3 HI ARTHROSCOPY KNEE DIAGNOSTIC W/WO SYNOVIAL BX SPX Right 02/24/2020 Dr. Ashraf HI KNEE SCOPE,DIAGNOSTIC Right 09/30/2020 JAB TONSILLECTOMY 1972 TRIGGER FINGER RELEASE 05/09/2016 RLF trigger release DAP TRIGGER FINGER RELEASE Left 06/07/2023 LRF / Thumb - JAB Social History Socioeconomic History Marital status: Spouse name: Not on file Number of children: Not on file Years of education: Not on file Highest education level: Not on file Occupational History Not on file Tobacco Use Smoking status: Every Day Types: Cigarettes Smokeless tobacco: Never Vaping Use Vaping status: Never Used Substance and Sexual Activity Alcohol use: Never Comment: caffeine intake: more than 4 cups per day of coffee, pop, tea Drug use: Never Sexual activity: Defer Other Topics Concern Not on file Social History Narrative Not on file Social Determinants of Health Financial Resource Strain: Not on file Food Insecurity: Not on file Transportation Needs: Not on file Physical Activity: Not on file Stress: Not on file Social Connections: Not on file Intimate Partner Violence: Unknown (09/19/2023) Received [facility] Safety & Environment Fear of Current or Ex-Partner: Not on file Emotionally Abused: Not on file Physically Abused: Not on file Sexually Abused: Not on file Physically or Sexually Abused: Not on file Housing Stability: Not on file Objective ENT Physical Exam General Examination: General overview: Normal, age-appropriate, no evidence of distress, overweight Head: Normocephalic, atraumatic Eyes: Pupils are equally round and reactive to light and accommodation, extraocular muscles are intact Ears: External ear architecture within normal limits, ear canals are patent, tympanic membranes are intact. Nose: External nose unremarkable, nares patent, septum intact, no evidence of congestion. Oral cavity: Mucosa moist, no evidence of ulcer, mass, or lesion Throat: Clear Neck/thyroid: Neck supple, full range of motion, no cervical lymphadenopathy, no evidence of thyromegaly Ultrasound-guided thyroid needle aspiration biopsy Indication: Nodular goiter Consent: Proper consent was obtained Prep: Overlying skin is treated with alcohol Guidance: Ultrasound utilize for proper guidance Aspiration: Thyroid gland/mass is palpated. Nodule(s) to be biopsied have been identified utilizing ultrasound. The patient is asked not to talk or swallow during the procedure. A fine-needle biopsy needle is inserted into the mass under ultrasound guidance. Dominant nodules of right thyroid lobe and thyroid isthmus noted. Aspiration of the nodules is performed and material is placed on slides and cell block. Multiple aspirations are completed without difficulty. Disposition: The biopsy material was sent for pathology. Veracyte specimens also submitted Pressure is applied to the area biopsy. The patient tolerated the procedure extremely well. Most recent thyroid function testing is normal. Lymph nodes: No cervical lymphadenopathy Skin: Warm and dry, no evidence of suspicious lesions, no rash Heart: No jugular venous distention, point of maximal impulse normal Lungs: Good air movement, no audible wheezing, no shortness of breath Chest: Normal shape and expansion Abdomen: Normal, soft, nontender, nondistended Musculoskeletal: Cervical spine normal, full range of motion Extremities: No clubbing, cyanosis, or edema Peripheral pulses: 2+ radial, 2+ carotid Neurologic: Alert and oriented, cranial nerves 2-12 are grossly intact Psych: Alert and oriented, normal affect, no evidence of distress Assessment/Plan Diagnoses and all orders for this visit: Nontoxic multinodular goiter (CMS/HCC) Comments: Will continue surveillance with ultrasonography. Thyroid nodule (CMS/HCC) Comments: We will see this patient back in 2 weeks to review the results of needle aspiration biopsy. documented in this encounter [facility] 04-10-2024 History of Present illness Narrative Subjective Patient ID: Virgen Zelaya is a 68 y.o. female who presents for Thyroid Nodule (Lab results) HPI This patient presents for recheck of thyroid nodules, multinodular goiter, and thyroid dysfunction. Patient denies any significant change of her condition. Review of Systems Patient describes occasional problems with fullness sensation in her neck with swallowing. Denies any fever. Denies any significant weight change. Has undergone needle aspiration biopsy in the past with atypical findings in the area of the right thyroid nodule. The rest of her review of systems is negative. Objective ENT Physical Exam General Examination: General overview: Normal, age-appropriate, no evidence of distress Head: Normocephalic, atraumatic Eyes: Pupils are equally round and reactive to light and accommodation, extraocular muscles are intact Ears: External ear architecture within normal limits, ear canals are patent, tympanic membranes are intact. Nose: External nose unremarkable, nares patent, septum intact, no evidence of congestion. Oral cavity: Mucosa moist, no evidence of ulcer, mass, or lesion Throat: Clear Neck/thyroid: Neck supple, full range of motion, no cervical lymphadenopathy, Mild thyroid enlargement. Lymph nodes: No cervical lymphadenopathy Skin: Warm and dry, no evidence of suspicious lesions, no rash Heart: No jugular venous distention, point of maximal impulse normal Lungs: Good air movement, no audible wheezing, no shortness of breath Chest: Normal shape and expansion Abdomen: Normal, soft, nontender, nondistended Musculoskeletal: Cervical spine normal, full range of motion Extremities: No clubbing, cyanosis, or edema Peripheral pulses: 2+ radial, 2+ carotid Neurologic: Alert and oriented, cranial nerves 2-12 are grossly intact Psych: Alert and oriented, normal affect, no evidence of distress Assessment/Plan Diagnoses and all orders for this visit: Thyroid nodule (CMS/HCC) Comments: Genetic testing still not available for the right thyroid nodule. Recommend repeat needle aspiration with genetic testing. Nontoxic multinodular goiter (CMS/HCC) Comments: The nodule of the isthmus was also aspirated with nondiagnostic findings. Recommend repeat needle aspiration biopsy documented in this encounter [facility] 08-27-2023 History of Present illness Narrative Associated Order(s): L Inj/Asp: L [...] hours Jardiance 25 MG (Prior Auth: Rx Ref#:[id number]) Oral for 90 Lasix 20 MG tablet [...] Right 2006 NAIL REMOVAL toenails removed x3 HI ARTHROSCOPY KNEE DIAGNOSTIC W/WO SYNOVIAL BX SPX Right 02/24/2020 Dr. Ashraf HI KNEE SCOPE,DIAGNOSTIC Right 09/30/2020 JAB TONSILLECTOMY 1972 [...] injection. This was administered by out physician's gallery assistant Phi Armendariz under my direct supervision. Follow-up in six weeks for re-evaluation. A total of 30 to 39 minutes was spent on this patient encounter which included chart review, check in, nurse triage, history taking, physical examination, diagnostic study review, patient counseling and discussion, entering information into the patient's medical record, and coordinating patient care. Brice Brown D.O. documented in this encounter [facility] 06-07-2023 Hospital Discharge instructions Patient Education 06/07/2023 07:30:41 Conchita Oliva - Carpal Tunnel/Cubital Tunnel Release Instructions (Custom) [facility] CARPAL TUNNEL RELEASE INSTRUCTIONS Post-Operative [...] to resolve. Brice Oliva DO [facility] [address] [place] [id number] Reviewed: 318 Follow Up Care 05/07/2023 14:01:18 With:Brice Oliva DO, ORT Address: [address] [place] [address]- When: Unknown Comments:, 2 pm Appointment has already been scheduled [facility] 06-06-2023 Note [id number] [facility] 03-16-2022 Note PROCEDURE: XR TIB_FI B RT [...] by: BECKY OWENS Date: 2022-03-16 08:24 [facility] Evaluation + Plan note No data available for this section [facility] Evaluation note Diagnosis Left knee pain, unspecified chronicity- Primary [facility] Work Phone: Evaluation note* Diagnosis Nontoxic multinodular goiter (CMS/HCC)- Primary Nontoxic multinodular goiter Thyroid nodule (CMS/HCC) Nontoxic uninodular goiter Hearing loss, unspecified hearing loss type, unspecified laterality [facility] Diagnosis Thyroid nodule (CMS/HCC)- Primary Nontoxic uninodular goiter Nontoxic multinodular goiter (CMS/HCC) Nontoxic multinodular goiter documented in this encounter [facility]* Diagnosis Nontoxic multinodular goiter (CMS/HCC)- Primary Nontoxic multinodular goiter Thyroid nodule (CMS/HCC) Nontoxic uninodular goiter documented in this encounter [facility] Discharge instructions No data available for this section [facility] No data available for this section [facility] Summary Purpose Family History Relationship Condition Age at Onset Recorded Date/T [...] mental disorder Unknown sibling Heart disease Unknown Relationship Condition Age at Onset Recorded Date/T tati father Coronary artery disease Unknown Dementia Unknown Congestive heart failure Unknown Diabetes mellitus Unknown mother Coronary artery disease Unknown brother Myocardial infarction Unknown brother Cerebrovascular accident (CVA) Unknown father Unknown Heart disease Unknown family member Unknown mother Unknown Hypertension Unknown History of stroke Unknown Family history of mental disorder Unknown sibling Heart disease Unknown Advance Directives Advance Directive Response Recorded Date/ Time Advance Directives No October 02 18 9:55am Reason for Referral Specialty Diagnoses / Procedures Referred By Pérez t Referred To Contact Orthopaedic Surgery Diagnoses Left knee pain, unspecified chronicity Procedures L Inj/Asp: L knee Brice Oliva, DO [address] [place] [address] Referral ID Status Reason Start Date Expiration Date Visits Re quested Visits Authorized [id number] Closed 08/27/2023 02/23/2024 1 1 Chief Complaint and Reason for Visit Chief Complaint L hand Chief Complaint Unknown Chief Complaint Unknown E04.1 Chief Complaint Unknown E04.1 Right thyroid nodule, nodule thyroid isthmus Additional Source Comments INFORMATION SOURCE (unrecogn ized section and content) DATE CREATED AUTHOR 03/11/2020 [facility] DATE CREATED AUTHOR AUTHOR'S ORGANIZ ATION 08/25/2022 [facility] dical Specialist DATE CREATED AUTHOR AUTHOR'S ORGANIZ ATION 01/04/2023 [facility] DATE CREATED AUTHOR AUTHOR'S ORGANIZ ATION 03/20/2024 [facility] DATE CREATED AUTHOR AUTHOR'S ORGANIZ ATION 05/12/2024 [facility] DATE CREATED AUTHOR AUTHOR'S ORGANIZ ATION 05/19/2024 [facility] dical Specialists EPIC Patient Care team informatio n (unrecognized section and content) Team Status: Active Member Role Status Dates Aggie Davis WEARING APPAREL PRESSER-C Primary Care Provider Active Team Status: Active Member Role Status Dates Aggie Davis NP-C Primary Care Provider Active Start: January 25, 2024 Imer Green DO Attending Provider Active Sta rt: January 25, 2024 Team Status: Inactive Member Role Status Dates Aggie Davis NP-Hilda Primary [facility] Pr edwin, Attending Provider Active Start: February 14, 2024 End: February 14, 2024 Team Status: Inactive Member Role Status Dates Aggie Davis NP-C Primary Care Provider Active Start: March 26, 2024 End: March 26, 2024 Da Phillip DO Attending Provider Active S tart: March 26, 2024 End: March 26, 2024 Safety Manager Relationship Specialty Start Date End Date Unallocated, [facility] [address] [place] [address] PCP - General 12/18/22 Safety Manager Relationship Specialty Start Date End Date Unallocated, [facility] [address] [place] [address] PCP - General 12/18/22 Team Status: Inactive Member Role Status Dates Aggie Davis NP-C Primary Care Provider Active Start: August 22, 2023 End: August 22, 2023 Brice Oliva DO Attending Provider Active Sta rt: August 22, 2023 End: August 22, 2023 Team Status: Inactive Member Role Status Dates Da Phillip DO Attending Provider Active S tart: April 13, 2024 End: April 13, 2024 Safety Manager Relationship Specialty Start Date End Date Carter Granger MD [address] [facility] [place] [phone] PCP - General Family Medicine 04/10/24 Aggie Davis MD [address] [place] [phone] Referring Physician Family Medicine 04/10/24 Da Phillip DO [address] [place] [address] Otolaryngology 04/10/24 Safety Manager Relationship Specialty Start Date End Date Carter Granger MD [address] [place] [phone] PCP - General Family Medicine 04/10/24 Aggie Davis MD [address] [place] [phone] Referring Physician Family Medicine 04/10/24 Da Phillip DO [address] [place] [address] Otolaryngology 04/10/24 Safety Manager Relationship Specialty Start Date End Date Carter Granger MD [address] [place] [phone] PCP - General Family Medicine 04/10/24 Aggie Davis MD [address] [place] [phone] Referring Physician Family Medicine 04/10/24 Da Phillip DO [address] [place] [address] Otolaryngology 04/10/24 Safety Manager Relationship Specialty Start Date End Date Carter Granger MD [address] [place] [phone] PCP - General Family Medicine 04/10/24 Aggie Davis MD [address] [place] [phone] Referring Physician Family Medicine 04/10/24 Da Phillip DO [address] [place] [address] Otolaryngology 04/10/24 Safety Manager Relationship Specialty Start Date End Date Carter Granger MD [address] [place] [phone] PCP - General Family Medicine 04/10/24 Aggie Davis MD [address] [place] [phone] Referring Physician Family Medicine 04/10/24 Da Phillip DO [address] [place] [address] Otolaryngology 04/10/24 Reason for Visit (unrecogniz ed section and content) Reason Comments Injections Synvisc one Reason Comments Thyroid Nodule FNA results Reason Comments Thyroid Nodule Lab results Reason Comments Thyroid Nodule FNA Goals (unrecognized section and content) Goals may [...] BE BASED ON THE PRIMARY CLINICAL RECORDS. [employer] [facility]. provides no warranty or guarantee of the accuracy or completeness of information in this document.
[2024-07-09 11:13] LABS: Basophils Absolute Auto 0.1 10^3/uL (0.0-0.1); Basophils Percent Auto 0.8 % (0.2-2.0); Eosinophils Absolute Auto 0.3 10^3/uL (0.0-0.7); Eosinophils Percent Auto 3.7 % (0.9-7.0); Hematocrit 37.9 % (36.0-48.0); Immature Granulocytes Abs Auto 0.08 10^3/uL (0.00-0.03); Immature Granulocytes Pct Auto 0.9 % (0.0-0.5); Lymphocytes Absolute Auto 2.2 10^3/uL (1.2-3.8); Lymphocytes Percent Auto 25.9 % (20.5-60.0); Mean Corpuscular HGB Conc 31.7 g/dL (29.9-35.2); Mean Corpuscular Volume 91.5 fL (81.0-99.0); Mean Platelet Volume 11.8 fL (9.5-13.5); Monocytes Absolute Auto 0.5 10^3/uL (0.3-0.8); Monocytes Percent Auto 6.2 % (1.7-12.0); Neutrophils Absolute Auto 5.4 10^3/uL (1.4-6.5); Neutrophils Percent Auto 62.5 % (43.0-75.0); Platelet Count 180 10^3/uL (150-450); Red Blood Count 4.14 10^6/uL (4.20-5.40); Red Cell Distribution Width 14.7 % (11.0-15.0); White Blood Count 8.6 10^3/uL (4.0-11.0)
[2024-07-09 11:39] LABS: Estimated Average Glucose 258 mg/dL; Glycohemoglobin A1C 10.6 % (4.5-6.2)
[2024-07-09 12:00] LABS: Alanine Aminotransferase 15 U/L (14-59); Albumin Globulin Ratio 0.9; Albumin Level 3.1 g/dL (3.4-5.0); Alkaline Phosphatase 118 U/L (46-116); Anion Gap 14.1; Aspartate Amino Transferase 11 U/L (15-37); BUN Creatinine Ratio 13.7; Bilirubin Total 0.3 mg/dL (0.2-1.0); Calcium 8.6 mg/dL (8.5-10.1); Carbon Dioxide 29.6 mmol/L (21.0-32.0); Chloride 103 mmol/L (98-107); Estimated GFR (African America 26 (>=60 mL/min/1.73m^2); Estimated GFR (Non-African Ame 21 (>=60 mL/min/1.73m^2); Free T3 1.97 pg/mL (2.18-3.98); Globulin 3.3 g/dL; Glucose 277 mg/dL (74-106); Potassium 4.7 mmol/L (3.5-5.1); Sodium 142 mmol/L (136-145); Thyroid Stimulating Hormone 2.731 uIU/mL (0.358-3.740); Total Protein 6.4 g/dL (6.4-8.2)
== END 2024-07-09 09:56 | disposition home or self-care (01) ==
LOC: CARD 09:56
PROVIDERS: PCP Nurse Practitioner Family; Visit Provider Nurse Practitioner Family
DX: R55 Syncope and collapse (principal); I10 Essential (primary) hypertension
CPT/HCPCS: 36415; 80053; 80061; 83036; 84436; 84443; 84481; 85025; 93242

== ENCOUNTER 2024-07-17 10:01 | Outpatient (OUT) | payer MEDICARE, SELFPAY ==
--- NOTE | 2024-07-17 10:04 | XR_ITS ---
The [address] [address] Patient Name: IDRIS GRIFFIN MRN: [id number] date: 1955 Sex: F Assigned Patient Location: [facility] Current Patient Location: [facility] Accession/Order Number: [id number] Exam Date: 07/17/2024 10:18 Report Date: 07/17/2024 11:55 At the request of: JOSUÉ DAVIS Procedure: XR DEXA axial skeleton EXAMINATION: XR DEXA axial skeleton, 07/17/2024 10:18 AM EST HISTORY: Osteoporosis COMPARISON: 2021. TECHNIQUE: Dual-energy X-ray absorptiometry (DEXA) bone density study performed for the axial skeleton. FINDINGS: Bone mineral density AP spine L1-L4 measures 1.110 g percent meters per. T score -0.6. Normal Lowest bone mineral density left femoral neck measuring 0.796 g/sq cm. T score -1.7. Osteopenia XR/XR DEXA axial skeleton IMPRESSION: Osteopenia. Moderate fracture risk Pharmacologic treatment recommendations * No uniform recommendation applies to all patients. Management plans must be individualized. * Consider initiating pharmacologic treatment in postmenopausal women and men >= 50 years of age who have the following: Primary fracture prevention: * T-score <= - 2.5 at the femoral neck, total hip, lumbar spine, 33% radius (some uncertainty with existing data) by DXA. * Low bone mass (osteopenia: T-score between - 1.0 and - 2.5) at the femoral neck or total hip by DXA with a 10-year hip fracture risk >= 3% or a 10-year major osteoporosis-related fracture risk >= 20% (i.e., clinical vertebral, hip, forearm, or proximal humerus) based on the [place]-adapted FRAXregistered model. Secondary fracture prevention: * Fracture of the hip or vertebra regardless of BMD [4, 5]. * Fracture of proximal humerus, pelvis, or distal forearm in persons with low bone mass (osteopenia: T-score between - 1.0 and - 2.5). The decision to treat should be individualized in persons with a fracture of the proximal humerus, pelvis, or distal forearm who do not have osteopenia or low BMD [12, 13]. Viktor MS, Larry SL, Bethany KL, Khushbu EM, Jennie KG, AJ, Devan ES. The clinician's guide to prevention and treatment of osteoporosis. Osteoporos Int. 2021;33(10):6605-1647. doi: 10.1007/x78643-520-92471-l. Epub 2021Nov 23. Erratum in: Osteoporos Int. 2021Feb 22;: PMID: 88295030; PMCID: [id number]. Electronically authenticated by: BRIANNA GREEN Date: 07/17/2024 11:55
--- OUTSIDE RECORDS SUMMARY | 2024-07-17 10:23 | XMS_ITS | CCD ---
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 pain, double vision, scotomas, floaters ENT: Denies runny nose, epistaxis, sinus pain, ear pain, ringing in ears, tooth ache, sore throat, pain with swallowing Cardiovascular: Denies chest pain, shortness of breath, orthopnea, edema, palpitations, loss of consciousness, claudication Respiratory: Denies cough, sputum production, wheezing, hemoptysis, shortness of breath, dyspnea on exertion Gastrointestinal: Denies abdominal pain, unintentional weight loss, difficulty swallowing, indigestion, bloating, cramping, loss of appetite, nausea, vomiting, diarrhea, constipation, hematochezia, melena Genitourinary: Denies any incontinence of urine, dysuria, hematuria, nocturia, polyuria, hesitancy, frequency, urgency, burning Musculoskeletal: Denies joint pain, morning stiffness, joint swelling, decreased range of motion, crepitus. + Pain to the left hip, low back Integumentary: Denies any pruritus, rashes, lesions, wounds, petechiae Neurologic: Denies any changes in sight, smell, hearing, taste, seizures, headache, paresthesia, numbness, weakness, balance disturbance. + Pain to the back of the head Psychiatric denies any depression, change in sleep patterns, anxiety, difficulty concentrating, paranoia, anhedonia, lack of energy, rene Hematologic/lymphatic: Denies any purpura, petechiae, excessive bleeding, bruising Physical Exam Vitals & Measurements T: 36.6 ???C(Oral) HR: 72(Monitored) RR: 19 BP: 105/76 SpO2: 95% HT: 152 cm WT: 94.1 kg BMI: 40.73 Trauma exam Vital signs reviewed Primary survey Airway intact Lung sounds clear and equal bilaterally Pulses full and equal to carotid, femoral, radial, dorsalis pedis bilaterally Heart regular rate and rhythm Skin warm, dry, pink GCS 15 Movement and sensation intact to all extremities No visible evidence of trauma Secondary survey General: GCS 15, alert HEENT: Head + occipital contusion, facial bones stable: Eyes normal inspection, PERRL: No evidence of oropharyngeal trauma; no blood in the nares; tympanic membranes intact, no hemotympanum or drainage NECK: Normal inspection; positive paraspinous tenderness on palpation over the cervical spine on the left, no step-offs, no crepitus on palpation of the vertebrae; no tracheal deviation; no JVD RESP: Normal breath sounds, no wheezes or crackles; no chest wall tenderness, crepitus, or subcutaneous emphysema: No visible evidence of chest wall trauma: Chest rise symmetric; no respiratory distress HEART: Heart rate and rhythm regular: Carotid, radial, femoral, dorsalis pedis pulses +2 and equal bilaterally; no murmurs ABDOMEN: Soft; nontender. No ecchymosis or visible wounds to abdominal wall; no distention, guarding, rigidity, or rebound; pelvis stable, no pain on compression; rectal tone intact; no blood at urethral meatus MSK: Nontender; normal appearance; no tenderness or step-offs to palpation of thoracic or lumbar spine: No ecchymosis or wounds to upper or lower back NEURO: Alert and oriented; sensation intact and symmetric bilaterally; muscle strength symmetric bilaterally SKIN: Color normal; no rash; warm, dry Medical Decision Making MEDICAL DECISION MAKING Number and Complexity of Problems Differential Diagnosis: closed head injury, cervical spine injury, lumbar spine injury, hip injury, dehydration, electrolyte imbalance, acute lower urinary tract infection, ACS cardiac arrhythmia, ICH, subdural hematoma MDM Data External documents reviewed: Not applicable My EKG interpretation: Noted in chart if applicable My CT interpretation: Noted in chart if applicable My X-ray interpretation: Noted in chart if applicable My Ultrasound interpretation: Not applicable Decision rules/scores evaluated: Noted in chart if appl (more content not included)... Normal [facility] Comment on above: Result Comment: Elec tronically Signed By: Kelly Smith PA-C\.br\Date and Time Signed: 07/08/24 02:10 EST\.br\Electronically Co-Signed By: Ean Azevedo M.D.\.br\Date and Time Co-Signed: 07/09/24 07:05 EST ABO/Rh History Checkon 07-08 ABO/Rh History Check Patient discharged prior Normal [facility] Comment on above: Performed By: #### 1 [id number] #### [facility] [address] [place] [address] CT Abdomen/Pelvis w/ Contras ton 07-08-2024 CT Abdomen/Pelvis w/ Contrast Exam Date/Time: 07/07/2024 19:17 EST Reason for Exam: ABDOMINAL TRAUMA;Trauma Report Review report CT chest, for report CT abdomen pelvis. All CT scans at this facility use dose modulation, iterative reconstruction, and/or weight based dosing when appropriate to reduce radiation dose to as low as reasonably achievable. Ordering Provider: Kelly Smith FINAL REPORT Dictated: 07/08/2024 8:54 am Imer Montague MD Signed (Electronic Signature): 07/08/2024 8:54 am Signed by: Imer Montague MD Transcribed by: JOSH Technologist: YONIS Technical Comments GFR (mL/min/1/73m2) n/a-trauma Contrast: Isovue 300 Contrast amount in ml's: 130 Normal [facility] CT Chest w/ Contraston 07-08 CT Chest w/ Contrast Exam Date/Time: 07/07/2024 19:17 EST Reason for Exam: CHEST TRAUMA, MOD-SEVERE;Trauma Report IMPRESSION: INDETERMINATE EXOPHYTIC CORTICAL NODULE, POSTERIOR MID POLE RIGHT KIDNEY DISCUSSED. IF CLINICAL CONCERN WARRANTS, EITHER MRI, OR CT UROGRAM MAY BE OBTAINED FOR FURTHER EVALUATION RULE OUT MALIGNANCY. 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 CT OF THE CHEST, ABDOMEN, AND PELVIS WITH INTRAVENOUS CONTRAST MEDIUM. HISTORY: FALL, SYNCOPE. TRAUMA, CHEST TRAUMA, MOD-SEVERE . DIABETES. RECEIVES ANTICOAGULATION. TECHNICAL FACTORS: CT imaging of the chest, abdomen, and pelvis, was obtained and formatted as 5 mm contiguous axial images from the thoracic inlet through the symphysis pubis. Sagittal and coronal reconstructions obtained during postprocessing. Intravenous contrast medium: 130 mL Isovue-300. Comparison: None CT OF THE CHEST WITH INTRAVENOUS CONTRAST MEDIUM. FINDINGS: Right lung: No nodules, masses, consolidation, pleural effusion, pneumothorax. Left lung: No nodules, masses, consolidation, pleural effusion, pneumothorax. Lymph nodes: No hilar, mediastinal, or axillary lymph node enlargement. Thoracic aorta: Normal in course and caliber. Cardiac Size: Normal. Pericardial effusion: None. Musculoskeletal:No osteoblastic, and no osteolytic lesions. Report CT OF THE ABDOMEN AND PELVIS WITH INTRAVENOUS CONTRAST MEDIUM. FINDINGS: Liver: Normal in size, shape, and attenuation. Bile Ducts: Mild intrahepatic ductal dilatation. Common duct measures 1.5 cm at level of portal vein and right hepatic artery. Gallbladder: Surgically absent. Pancreas: Normal without masses, cysts, ductal dilatation or calcification. Spleen: Normal in size without masses or calcifications. 1.5 cm cyst, mid spleen. 1.2 cm splenule anterior to spleen. 1.4 cm splenule inferior to posterior spleen. Kidneys: Normal in size and enhancement. No hydronephrosis, or stones. 1.1 x 1.6 cm exophytic nodule projects posterior from mid pole right kidney (series 2, image 68). Posterior exophytic 1.1 cm cyst lower pole left kidney. Multiple smaller cortical cysts identified bilaterally. Mild left perinephric fat stranding. Adrenals: Normal. Small bowel: Normal in caliber. Appendix: Normal. Colon: Normal in caliber. Peritoneum: No ascites, free air, or fluid collections. Vessels: Aorta normal in course and caliber. Portal vein, splenic vein, superior mesenteric vein are patent. Lymph nodes: Retroperitoneal: No enlarged retroperitoneal lymph nodes. Mesenteric: No enlarged mesenteric lymph nodes. Pelvic: No enlarged pelvic lymph nodes. Ureters: Normal in course and caliber. No calcifications. Bladder: No wall thickening. Reproductive organs: No pelvic masses. Abdominal Wall: No hernia identified. No diastasis of rectus musculature. No edema or masses. Bones: No bone lesions. This space narrowing T11-T12 through L1-L2. Vacuum disc L3-L4 and L4-L5. Small anterior osteophytes lower thoracic and lumbar spine. No post operative changes. All CT scans at this facility use dose modulation, iterative reconstruction, and/or weight based dosing when appropriate to reduce radiation dose to as low as reasonably achievable. Report Ordering Provider: Kelly Smith FINAL REPORT Dictated: 07/08/2024 8:54 am Imer Montague MD Signed (Electronic Signature): 07/08/2024 8:54 am Signed by: Imer Monatgue MD Transcribed by: JOSH Technologist: YONIS Technical Comments GFR (mL/min/1/73m2) n/a-trauma Contrast: Isovue 300 Contrast amount in ml's: 130 Normal [facility] CT Head or Brain w/o Contras ton 07-08-2024 CT Head or Brain w/o Contrast Exam Date/Time: 07/07/2024 19:10 EST Reason for Exam: HEAD TRAUMA, MOD-SEVERE;Other (please specify) Report Impression: Right posterior parietal scalp contusion. CT Brain. Contrast medium: without contrast.. History: Syncopal episode at work. Neck pain. Receiving anticoagulation. Technical factors: CT imaging of the brain was obtained and formatted as 5 mm contiguous axial images. 2.5 mm contiguous axial images were obtained through the osseous structures. Sagittal and coronal reconstruction obtained during postprocessing. Comparison: None. Findings: Extra-axial spaces: Normal. Intracranial hemorrhage: None. Ventricular system: Ventricles mildly enlarged with sulci mildly prominent. Basal Cisterns: Normal. Cerebral Parenchyma: Without anomaly. Midline Shift: None. Cerebellum: Normal. Paranasal sinuses, calvarium, and mastoid air cells: Mastoid air cells well pneumatized. Paranasal sinuses clear. Mild extracalvarial soft tissue swelling right posterior parietal scalp. Visualized Orbits: Normal. All CT scans at this facility use dose modulation, iterative reconstruction, and/or weight based dosing when appropriate to reduce radiation dose to as low as reasonably achievable. Report Ordering Provider: Kelly Smith FINAL REPORT Dictated: 07/08/2024 9:10 am Imer Montague MD Signed (Electronic Signature): 07/08/2024 9:10 am Signed by: Imer Motnague MD Transcribed by: JOSH Technologist: YONIS Normal [facility] CT Spine Cervical w/o Contra ston 07-08-2024 CT Spine Cervical w/o Contrast Exam Date/Time: 07/07/2024 19:10 EST Reason for Exam: NECK TRAUMA, DANGEROUS INJURY MECHANISM;Trauma Report IMPRESSION: No acute fracture or traumatic malalignment in the cervical spine. HISTORY: Neck pain. TECHNIQUE: CT of the cervical spine without IV contrast. Spiral, high resolution axial images were obtained from the skull base to the cervicothoracic junction with sagittal and coronal planar reconstructions. All CT scans at this facility use dose modulation, iterative reconstruction, and/or weight based dosing when appropriate to reduce radiation dose to as low as reasonably achievable. COMPARISON: None. RESULT: Counting reference: Craniocervical junction. Alignment: Straightening of the cervical lordosis. No traumatic malalignment. Grade 1 anterolisthesis of C4 on C5. Craniocervical junction: Craniocervical junction is unremarkable. Osseous structures/fracture: No evidence for acute fracture. No destructive osseous lesions. Cervical soft tissues: The paraspinal soft tissues planes are maintained. Canal and foramina, degenerative changes: Multilevel degenerative changes, worst at C4-C5 and C5-C6. Ordering Provider: Kelly Smtih FINAL REPORT Dictated: 07/08/2024 9:24 am Home Lockwood MD Signed (Electronic Signature): 07/08/2024 9:24 am Signed by: Home Lockwood MD Transcribed by: JOSH Technologist: YONIS Normal [facility] ABO/Rhon 07-07-2024 ABO/Rh Positive Invalid Interpretation Code [facility] Comment on above: Performed By: #### 2 [id number] #### [facility] [address] [place] [address] ABSCon 07-07-2024 ABSC Gel Interp Negative Normal [facility] Comment on above: Performed By: #### 1 [id number] #### [facility] [address] [place] [address] B hCG Qualon 07-07-2024 Beta HCG ( test) Ql Negative Normal [facility] Comment on above: Performed By: #### 2 [id number] #### [facility] [address] [place] [address] BLOOD BANKOrdered By: Willard Greenwood on 07-07-2024 ABO/Rh Interp Positive Invalid Interpretation Code [facility] BB Subsection ABSC Gel Interp Negative (07/07/24 6:48 PM) Normal [facility] BB Subsection BMPon 07-07-2024 Anion gap [Moles/Vol] 11 mmol/L Normal 6-16 [facility] Comment on above: Performed By: #### 2 [id number] #### [facility] [address] [place] [address] Calcium [Mass/Vol] 9.1 mg/dL Normal 8.9-11.1 [facility] Comment on above: Performed By: #### 2 [id number] #### [facility] [address] [place] [address] Chloride [Moles/Vol] 104 mmol/L Normal 101-111 [facility] Comment on above: Performed By: #### 2 [id number] #### [facility] [address] [place] [address] CO2 [Moles/Vol] 26 mmol/L Normal 21-31 [facility] Comment on above: Performed By: #### 2 [id number] #### [facility] [address] [place] [address] Creatinine [Mass/Vol] 1.8 mg/dL High 0.5-1.3 [facility] Comment on above: Performed By: #### 2 [id number] #### [facility] [address] [place] [address] Glucose [Mass/Vol] 154 mg/dL Normal 55-199 [facility] Comment on above: Performed By: #### 2 [id number] #### [facility] [address] [place] [address] Potassium [Moles/Vol] 3.6 mmol/L Normal 3.5-5.3 [facility] Comment on above: Performed By: #### 2 [id number] #### [facility] [address] [place] [address] Sodium [Moles/Vol] 137 mmol/L Normal 135-145 [facility] Comment on above: Performed By: #### 2 [id number] #### [facility] [address] [place] [address] Urea nitrogen [Mass/Vol] 23 mg/dL High 5- [facility] Comment on above: Performed By: #### 2 [id number] #### [facility] [address] [place] [address] Urea nitrogen/Creatinine [Mass ratio] 13 No Units Normal 10- [facility] Comment on above: Performed By: #### 2 [id number] #### [facility] [address] [place] [address] Blood Bank ID#on 07-07-2024 BBID# [id number] Invalid Interpretation Code [facility] Comment on above: Performed By: #### 1 [id number] #### [facility] [address] [place] [address] CBC w/ Auto Diffon 4 Basophils/100 WBC (Bld) 0.6 % Normal 0.0-2.0 [facility] Comment on above: Result Comment: Amy ection date/time has been modified to: 18:23:00. Previous collection date/time: 18:45:00. Performed By: #### 2 [id number] #### [facility] [address] [place] [address] Basophils/Leukocytes Auto (Bld) [Pure # fraction] 0.1 E9/L Normal 0.0-0.2 [facility] Comment on above: Result Comment: Amy ection date/time has been modified to: 18:23:00. Previous collection date/time: 18:45:00. Performed By: #### 2 [id number] #### [facility] [address] [place] [address] Eosinophils (Bld) [#/Vol] 0.3 E9/L Normal 0.0-0.5 [facility] Comment on above: Result Comment: Amy ection date/time has been modified to: 18:23:00. Previous collection date/time: 18:45:00. Performed By: #### 2 [id number] #### [facility] [address] [place] [address] Eosinophils/100 WBC (Bld) 3.1 % Normal 0.0-8.0 [facility] Comment on above: Result Comment: Amy ection date/time has been modified to: 18:23:00. Previous collection date/time: 18:45:00. Performed By: #### 2 [id number] #### [facility] [address] [place] [address] Erythrocyte distribution width (RBC) [Ratio] 15.1 % High 10.9-14.2 [facility] Comment on above: Result Comment: Amy ection date/time has been modified to: 18:23:00. Previous collection date/time: 18:45:00. Performed By: #### 2 [id number] #### [facility] [address] [place] [address] Hematocrit (Bld) [Volume fraction] 38.3 % Normal 34.0-46.0 [facility] Comment on above: Result Comment: Amy ection date/time has been modified to: 18:23:00. Previous collection date/time: 18:45:00. Performed By: #### 2 [id number] #### [facility] [address] [place] [address] Hemoglobin (Bld) [Mass/Vol] 12.7 g/dL Normal 12.0-16.0 [facility] Comment on above: Result Comment: Amy ection date/time has been modified to: 18:23:00. Previous collection date/time: 18:45:00. Performed By: #### 2 [id number] #### [facility] [address] [place] [address] Lymphocytes (Bld) [#/Vol] 2.4 E9/L Normal 1.0-4.0 [facility] Comment on above: Result Comment: Amy ection date/time has been modified to: 18:23:00. Previous collection date/time: 18:45:00. Performed By: #### 2 [id number] #### [facility] [address] [place] [address] Lymphocytes/100 WBC (Bld) 26.6 % Normal 14.0-50.0 [facility] Comment on above: Result Comment: Amy ection date/time has been modified to: 18:23:00. Previous collection date/time: 18:45:00. Performed By: #### 2 [id number] #### [facility] [address] [place] [address] MCH (RBC) [Entitic mass] 29.9 pg Normal 27.0-34.0 [facility] Comment on above: Result Comment: Amy ection date/time has been modified to: 18:23:00. Previous collection date/time: 18:45:00. Performed By: #### 2 [id number] #### [facility] [address] [place] [address] MCHC (RBC) [Mass/Vol] 33.1 g/dL Normal 31.4-36.0 [facility] Comment on above: Result Comment: Amy ection date/time has been modified to: 18:23:00. Previous collection date/time: 18:45:00. Performed By: #### 2 [id number] #### [facility] [address] [place] [address] MCV (RBC) [Entitic vol] 90.2 fL Normal 80.0-100.0 [facility] Comment on above: Result Comment: Amy ection date/time has been modified to: 18:23:00. Previous collection date/time: 18:45:00. Performed By: #### 2 [id number] #### [facility] [address] [place] [address] Monocytes (Bld) [#/Vol] 0.5 E9/L Normal 0.2-1.0 [facility] Comment on above: Result Comment: Amy ection date/time has been modified to: 18:23:00. Previous collection date/time: 18:45:00. Performed By: #### 2 [id number] #### [facility] [address] [place] [address] Neutrophils (Bld) [#/Vol] 5.8 E9/L Normal 2.0-7.5 [facility] Comment on above: Result Comment: Amy ection date/time has been modified to: 18:23:00. Previous collection date/time: 18:45:00. Performed By: #### 2 [id number] #### [facility] [address] [place] [address] Neutrophils/100 WBC (Bld) 64.2 % Normal 36.0-75.0 [facility] Comment on above: Result Comment: Amy ection date/time has been modified to: 18:23:00. Previous collection date/time: 18:45:00. Performed By: #### 2 [id number] #### [facility] [address] [place] [address] Platelet mean volume (Bld) [Entitic vol] 10.1 fL Normal 6.4-10.8 [facility] Comment on above: Result Comment: Amy ection date/time has been modified to: 18:23:00. Previous collection date/time: 18:45:00. Performed By: #### 2 [id number] #### [facility] [address] [place] [address] Platelets (Bld) [#/Vol] 183.0 E9/L Normal 150.0-500.0 [facility] Comment on above: Result Comment: Amy ection date/time has been modified to: 18:23:00. Previous collection date/time: 18:45:00. Performed By: #### 2 [id number] #### [facility] [address] [place] [address] RBC (Bld) [#/Vol] 4.2 E12/L Low 4.3-5.9 [facility] Comment on above: Result Comment: Amy ection date/time has been modified to: 18:23:00. Previous collection date/time: 18:45:00. Performed By: #### 2 [id number] #### [facility] [address] [place] [address] WBC corrected for nucl RBC Auto (Bld) [#/Vol] 9.1 E9/L Normal 4.0-11.0 [facility] Comment on above: Result Comment: Amy ection date/time has been modified to: 18:23:00. Previous collection date/time: 18:45:00. Performed By: #### 2 [id number] #### [facility] [address] [place] [address] Basophils/100 WBC (Bld) 0.6 % Normal 0.0-2.0 [facility] Comment on above: Performed By: #### 2 [id number] #### [facility] [address] [place] [address] Basophils/Leukocytes Auto (Bld) [Pure # fraction] 0.1 E9/L Normal 0.0-0.2 [facility] Comment on above: Performed By: #### 2 [id number] #### [facility] [address] [place] [address] Eosinophils (Bld) [#/Vol] 0.3 E9/L Normal 0.0-0.5 [facility] Comment on above: Performed By: #### 2 [id number] #### [facility] [address] [place] [address] Eosinophils/100 WBC (Bld) 3.1 % Normal 0.0-8.0 [facility] Comment on above: Performed By: #### 2 [id number] #### [facility] [address] [place] [address] Erythrocyte distribution width (RBC) [Ratio] 15.1 % High 10.9-14.2 [facility] Comment on above: Performed By: #### 2 [id number] #### [facility] [address] [place] [address] Hematocrit (Bld) [Volume fraction] 38.3 % Normal 34.0-46.0 [facility] Comment on above: Performed By: #### 2 [id number] #### [facility] [address] [place] [address] Hemoglobin (Bld) [Mass/Vol] 12.7 g/dL Normal 12.0-16.0 [facility] Comment on above: Performed By: #### 2 [id number] #### [facility] [address] [place] [address] Lymphocytes (Bld) [#/Vol] 2.4 E9/L Normal 1.0-4.0 [facility] Comment on above: Performed By: #### [id number] #### [facility] Laboratory [address] [place] [address] Lymphocytes/100 WBC (Bld) 26.6 % Normal 14.0-50.0 [facility] Comment on above: Performed By: #### 2 [id number] #### [facility] [address] [place] [address] MCH (RBC) [Entitic mass] 29.9 pg Normal 27.0-34.0 [facility] Comment on above: Performed By: #### 2 [id number] #### [facility] [address] [place] [address] MCHC (RBC) [Mass/Vol] 33.1 g/dL Normal 31.4-36.0 [facility] Comment on above: Performed By: #### 2 [id number] #### [facility] [address] [place] [address] MCV (RBC) [Entitic vol] 90.2 fL Normal 80.0-100.0 [facility] Comment on above: Performed By: #### 2 [id number] #### [facility] [address] [place] [address] Monocytes (Bld) [#/Vol] 0.5 E9/L Normal 0.2-1.0 [facility] Comment on above: Performed By: #### 2 [id number] #### [facility] [address] [place] [address] Neutrophils (Bld) [#/Vol] 5.8 E9/L Normal 2.0-7.5 [facility] Comment on above: Performed By: #### 2 [id number] #### [facility] [address] [place] [address] Neutrophils/100 WBC (Bld) 64.2 % Normal 36.0-75.0 [facility] Comment on above: Performed By: #### 2 [id number] #### [facility] [address] [place] [address] Platelet mean volume (Bld) [Entitic vol] 10.1 fL Normal 6.4-10.8 [facility] Comment on above: Performed By: #### 2 [id number] #### [facility] [address] [place] [address] Platelets (Bld) [#/Vol] 183.0 E9/L Normal 150.0-500.0 [facility] Comment on above: Performed By: #### 2 [id number] #### [facility] [address] [place] [address] RBC (Bld) [#/Vol] 4.2 E12/L Low 4.3-5.9 [facility] Comment on above: Performed By: #### 2 [id number] #### [facility] [address] [place] [address] WBC corrected for nucl RBC Auto (Bld) [#/Vol] 9.1 E9/L Normal 4.0-11.0 [facility] Comment on above: Performed By: #### 2 [id number] #### [facility] [address] [place] [address] CHEMISTRYOrdered By: SYSTEM SYSTEM on 07-07-2024 Amphetamines Screen method >1000 ng/mL Ql (U) NEGATIVE 7 (07/07/24 7:41 PM) Normal NEGATIVE [facility] Comment on above: Interpretive Data: N egative Cutoff: <1000 ng/mL Barbiturates Screen Ql (U) NEGATIVE 8 (07/07/24 7:41 PM) Normal NEGATIVE [facility] Comment on above: Interpretive Data: N egative Cutoff: <200 ng/mL Benzodiazepines Ql (U) NEGATIVE 1 (07/07/24 7:41 PM) Normal NEGATIVE [facility] Comment on above: Interpretive Data: N egative Cutoff: <200 ng/mL Cannabinoids Screen Ql (U) NEGATIVE 6 (07/07/24 7:41 PM) Normal NEGATIVE [facility] Comment on above: Interpretive Data: N egative Cutoff: <50 ng/mL Cocaine Ql (U) NEGATIVE 2 (07/07/24 7:41 PM) Normal NEGATIVE [facility] Comment on above: Interpretive Data: N egative Cutoff: <300 ng/mL Opiates Screen Ql (U) NEGATIVE 4 (07/07/24 7:41 PM) Normal NEGATIVE [facility] Comment on above: Interpretive Data: N egative Cutoff: <300 ng/mL Phencyclidine Screen method >25 ng/mL Ql (U) NEGATIVE 5 (07/07/24 7:41 PM) Normal NEGATIVE [facility] Comment on above: Interpretive Data: N egative Cutoff: <25 ng/mL These drug screen results are to be used for medical (i.e., treatment) purposes only. Unconfirmed drug screening results must not be used for non-medical purposes (e.g., employment testing, legal testing). U Fentanyl NEGATIVE 33 (07/07/24 7:41 PM) Normal NEGATIVE [facility] Comment on above: Interpretive Data: N egative Cutoff: <5 ng/mL These drug screen results are to be used for medical (i.e., treatment) purposes only. Unconfirmed drug screening results must not be used for non-medical purposes (e.g., employment testing, legal testing). Albumin [Mass/Vol] 3.9 g/dL Normal 3.3 - 5.0 gm/dL [facility] Albumin/Globulin [Mass ratio] 1.4 {ratio} Normal 1.1 - 2.2 [facility] ALP [Catalytic activity/Vol] 112 [iU]/d High 21 - 98 Int._Unit/L [facility] ALT No additional P-5'-P [Catalytic activity/Vol] 11 [iU]/d Normal 6 - 46 Int._Unit/L [facility] Anion gap [Moles/Vol] 11 mmol/L Normal 6 - 16 mEq/L R emisol Chem AST [Catalytic activity/Vol] 13 [iU]/d Normal 5 - 43 Int._Unit/L [facility] Bilirubin [Mass/Vol] 0.4 mg/dL Normal 0.0 - 1 .1 mg/dL [facility] Bilirubin.direct [Mass/Vol] 0.1 mg/dL Normal 0.0 - 0.4 mg/dL [facility] Bilirubin.indirect [Mass or moles/Vol] 0.3 mg/dL Normal 0.1 - 0.9 mg/dL [facility] Calcium [Mass/Vol] 9.1 mg/dL Normal 8.9 - 11. 1 mg/dL [facility] Chloride [Moles/Vol] 104 mmol/L Normal 101 - 1 11 mmol/L [facility] CO2 [Moles/Vol] 26 mmol/L Normal 21 - 31 mmol/L [facility] Creatinine [Mass/Vol] 1.8 mg/dL High 0.5 - 1.3 mg/dL [facility] eGFR 30 mL/min/1.73 m2 Low >=59mL/min /1 .73 m2 [facility] Ethanol Lvl mg/dL Normal <=11mg/dL [facility] Globulin (S) [Mass/Vol] 2.8 g/dL Normal 1.4 - 4.0 gm/dL [facility] Glucose [Mass/Vol] 154 mg/dL Normal 55 - 199 mg/dL [facility] Lactic Acid Lvl 0.9 mmol/L Normal 0.5 - 2.2 mmol/L [facility] Lipase [Catalytic activity/Vol] 22 U/L Normal 13 - 58 unit/L [facility] Magnesium [Mass/Vol] 2.2 mg/dL Normal 1.3 - 2 .4 mg/dL [facility] Myoglobin [Mass/Vol] 128 ng/mL High <=69ng/mL Nick ashleigh Chem Potassium [Moles/Vol] 3.6 mmol/L Normal 3.5 - 5.3 mmol/L [facility] Protein [Mass/Vol] 6.7 g/dL Normal 6.0 - 7.8 gm/dL [facility] Sodium [Moles/Vol] 137 mmol/L Normal 135 - 145 mmol/L [facility] Total CK 149 [iU]/d Normal 14 - 261 Int._Unit/L [facility] Troponin HS 10.70 pg/mL Normal 10.10 - 27.10 pg/mL [facility] Comment on above: Interpretive Data: T he 95% CI (Confidence Interval) PPV (Positive Predictive Value) for myocardial infarction in females is 38 pg/mL, in males 51 pg/mL. The results should be used in conjunction with clinical conditions of myocardial infarction. (Access High Sensitivity Troponin I Instructions For Use, Lalito Neopit, February 2018) Urea nitrogen [Mass/Vol] 23 mg/dL High 5 - 21 mg/dL [facility] Urea nitrogen/Creatinine [Mass ratio] 13 mg/mg Normal 10 - 20 [facility] CKon 07-07-2024 Total CK 149 Int._Unit/L Normal 14-261 [facility] Comment on above: Performed By: #### 2 [id number] #### [facility] [address] [place] [address] COAGULATIONOrdered By: Leslie Chavez on 07-07-2024 aPTT Coag (PPP) [Time] 31.1 s Normal 25.1 - 36.5 second(s) [facility] Comment on above: Interpretive Data: P lefty 15 days - 4 weeks 1 - 5 months 6 - 11 months 1 - 5 years 6 - 10 years 11 - 17 years PTT Mean: 35.4 (27.6-45.6) Mean: 33.5 (24.8-40.7) Mean: 32.4 (25.1-40.7) Mean: 31.6 (24.0-39.2) Mean: 31.6 (26.9-38.7) Mean: 31.0 (24.6-38.4) Pediatric Reference ranges were obtained from a study by shad Hernandez alAfshan prepared from 1437 samples obtained at 7 different centers using the same coagulation reagent and instrumentation as [facility]. Currently there are no coagulation studies available worldwide for children to 14 days, and no normal ranges. Heparin therapeutic range (represented by Anti-Factor Xa activity of 0.2 - 0.4 U/mL) corresponds to PTT of 56.6 - 109.0 sec. INR Coag (PPP) [Relative time] 0.92 {INR} Invalid Interpretation Code [facility] Comment on above: Interpretive Data: I NR results are specifically intended to assess patients stabilized on long-term Anticoagulation therapy suggested INR s Less Intensive Anticoagulation 2.0 3.0 Conventional Range 3.0 4.5 PT Coag (PPP) [Time] 10.3 s Normal 9.4 - 1 2.5 second(s) [facility] Comment on above: Interpretive Data: 1 5 days - 4 weeks 1 - 5 months 6 -11 months 1-5 years 6-10 years 11 -17 years Mean: 11.2 (9.5-12.6) Mean: 11.0 (9.7-12.8) Mean: 11.0 (9.8-13.0) Mean: 11.3 (9.9-13.4) Mean: 11.7 (10.0-14.6) Mean: 11.8 (10.0 - 14.1) Pediatric Reference ranges were obtained from a study by shad Hernandez alAfshan prepared from 1437 samples obtained at 7 different centers using the same coagulation reagent and instrumentation as [facility]. Currently there are no coagulation studies available worldwide for children to 14 days, and no normal ranges. ED Clinical Summaryon 2023 ED Clinical Summary ED Clinical Summary [address] [address] ED Clinical Summary Person Information Name: VIRGEN GONZALES [facility] Age: 68 Years : 1955 Sex: Female Language: Dominican PCP: AGGIE DAVIS CNP Marital Status: Visit Id: Visit Reason: Neck pain; Fall; Closed head injury with LOC; FALL Speciality: Acuity: 3 Enc Type: Emergency Med Service: Emergency Arrival: 07/07/2024 18:16:48 Discharge: 07/07/2024 22:29:12 LOS: 000 04:13 Checkin: 07/07/2024 18:16:48 Checkout: 07/07/2024 22:29:12 Dispo Type: Home (Routine DC) EVENTS: Event Name Event Status Request Date/Time Start Date/Time Complete Date/Time Arrive Complete 07/07/2024 18:16:48 07/07/2024 18:16:48 07/07/2024 18:16:48 Document Home Meds Request 07/07/2024 18:16:48 Triage Complete 07/07/2024 18:16:48 07/07/2024 18:23:42 07/07/2024 18:23:42 Bed Assign Complete 07/07/2024 18:17:38 07/07/2024 18:17:38 07/07/2024 18:17:38 Dr Exam Complete 07/07/2024 18:17:38 07/07/2024 18:19:27 07/07/2024 18:19:27 RN Exam Complete 07/07/2024 18:17:38 07/07/2024 18:27:53 07/07/2024 18:27:53 Registration Complete 07/07/2024 18:19:27 07/07/2024 20:37:11 07/07/2024 20:37:11 Workers Comp Request 07/07/2024 18:24:01 Fall Risk Request 07/07/2024 18:27:54 EKG Complete 07/07/2024 18:30:40 07/07/2024 18:53:58 NPO Request 07/07/2024 18:30:40 Pending Labs Inlab 07/07/2024 18:30:40 Lab Complete 07/07/2024 18:30:40 07/07/2024 20:29:24 Urine Collect Complete 07/07/2024 18:30:40 07/07/2024 20:29:24 Patient Care Request 07/07/2024 18:30:40 RT Request 07/07/2024 18:30:40 CT Complete 07/07/2024 18:30:40 07/07/2024 18:50:37 07/07/2024 19:17:13 Blood Collect Request 07/07/2024 18:30:40 Trauma II Request 07/07/2024 18:34:37 Dr Exam Complete 07/07/2024 18:55:52 07/07/2024 18:55:52 07/07/2024 18:55:52 Pending Labs Complete 07/07/2024 18:57:03 07/07/2024 18:57:03 07/07/2024 19:14:14 Lab Complete 07/07/2024 18:57:03 07/07/2024 18:57:03 07/07/2024 19:14:14 Pending Labs Complete 07/07/2024 18:58:14 07/07/2024 18:58:14 07/07/2024 19:24:05 Lab Complete 07/07/2024 18:58:14 07/07/2024 18:58:14 07/07/2024 19:24:05 Pending Labs Inlab 07/07/2024 19:54:21 07/07/2024 19:54:21 Lab Inlab 07/07/2024 19:54:21 07/07/2024 19:54:21 Meds Admin Request 07/07/2024 20:15:10 Meds Admin Complete 07/07/2024 20:21:57 07/07/2024 20:33:51 Reg Complete Request 07/07/2024 20:37:11 Reg Bed Request Complete 07/07/2024 20:37:11 07/07/2024 20:37:11 07/07/2024 20:37:11 Discharge Complete 07/07/2024 20:55:37 07/07/2024 22:29:17 07/07/2024 22:29:17 Transfer Complete 07/07/2024 22:29:17 07/07/2024 22:29:17 07/07/2024 22:29:17 ADDRESS: [id number] [place] [id number] PHYS DOC NOTES: MEDICAL INFORMATION: Prescriptions Given: New Medications [facility] 1987, [address] [place], [place] [id number], [phone] cephalexin (cephalexin 500 mg Cap) 1 Capsules By Mouth every 12 hours. Refills: 0. Medications to Continue with No Changes Other Medications alendronate (alendronate 70 mg oral tablet) 1 Tablets By Mouth every week. aspirin 81 Milligram By Mouth every day. busPIRone 75 Milligram By Mouth 2 times a day. chlorpheniramine/ibupr ofen/pseudoephedrine (Advil Allergy Sinus oral tablet) 1 Tablets [...] Tab) 1 Tablets By Mouth every day. naproxen (naproxen 500 mg Tab) 1 Tablets By Mouth 2 times a day as needed Pain. with food. Refills: 0. naproxen (naproxen 500 mg Tab) 1 Tablets By Mouth 2 times a day. with food. Refills: 0. nitroglycerin (nitroglycerin 0.4 mg sublingual Tab) 1 Tablets Sublingual every 5 minutes as needed for chest pain. pregabalin 75 Milligram By Mouth 2 times a day. simvastatin (simvastatin 40 mg Tab) 1 Tablets By Mouth once a day (at bedtime). sitagliptin (Januvia 100 mg Tab) 1 Tablets By Mouth every day. tramadol (traMADOL 50 mg Tab) 1 Tablets By Mouth every 4 hours as needed for pain. g56.02. Refills: 0. varenicline (Chantix 1 mg Tab) 1 Tablets By Mouth 2 times a day. PATIENT EDUCATION INFORMATION: Instructions: Urinary Tract Infection, Adult, Gagu-cu-Bbag; Syncope, Adult, Jbak-eq-Okze; Head Injury, Adult, Pnhc-ju-Irpu; Contusion, Nfhw-ox-Ldec Follow up: With: Address: When: AGGIE [address] [place] [phone] Business (more content not included)... Normal [facility] ED Patient Summaryon 024 ED Patient Summary ED Patient Summary [place] [id number] Patient Discharge Instructions Person Information Name: VIRGEN GONZALES Age: 68 Years Arrival Date: 07/07/2024 18:16:48 Discharge Diagnosis: 1:Contusion of occipital region of scalp; 2:Syncope and collapse; 3:Acute lower urinary tract infection Primary Care Physician: AGGIE DAVIS CNP Provider Information Primary Provider: Tiny Fallon DO Advanced Rf Engineer:None The exam and treatment you received in the Emergency Department were for an urgent problem and are not intended as complete care. It is important that you follow up with a doctor, nurse practitioner, or physician???s internet marketing assistant for ongoing care. If your symptoms become worse or you do not improve as expected and you are unable to reach your usual health care provider, you should return to the Emergency Department. We are available 24 hours a day. VIRGEN GONZALES has been given the following list of patient education materials, prescriptions and follow-up instructions: Follow-up Instructions: With: Address: When: A[address] [place] [place] [phone] Business (1) In 3 days 07/10/2024 In the event that this physician does not participate in your insurance network, please consult with your insurance company to find a nearby participating provider. Patient Education Materials: Urinary Tract Infection, Adult, Ecvx-sa-Frkv; Syncope, Adult, Bppy-me-Mlbe; Head Injury, Adult, Ymug-fh-Rmcr; Contusion, Kgos-gm-Jgot A MESSAGE TO ALL PATIENTS REGARDING OPIOIDS PRESCRIPTION OPIOIDS: WHAT YOU NEED TO KNOW Prescription opioids can be used to help relieve owamujyr-vh-zxbzey pain and are often prescribed following a surgery or injury, or for certain health conditions. These medications can be an important part of the treatment but also come with serious risks. It is important to work with your healthcare provider to make sure you are getting the safest, most effective care. WHAT ARE THE RISKS AND SIDE EFFECTS OF OPIOID USE? Prescription opioids carry serious risks of addiction and overdose, especially with prolonged use. An opioid overdose, often marked by slowed breathing, can cause sudden . The use of prescription opioids can have a number of side effects as well, even when taken as directed: ??? Tolerance???meaning you might need to take more of the medication for the same pain relief ??? Physical dependence???meaning you have symptoms of withdrawal when a medication is stopped ??? Increased sensitivity to pain ??? Constipation ??? Nausea, vomiting, and dry mouth ??? Sleepiness and dizziness ??? Confusion ??? Depression ??? Low levels of testosterone that can result in lower sex drive, energy, and strength ??? Itching and sweating RISKS ARE GREATER WITH: ??? History of drug misuse, substance use disorder, or overdose ??? Mental health conditions (such as depression or anxiety) ??? Sleep apnea ??? Older age (65 years and older) ??? Avoid alcohol while taking prescription opioids. Also, unless specifically advised by your health care provider, medications to avoid include: ??? Benzodiazepines (such as Xanax or Valium) ??? Muscle relaxants (such as Soma or Flexeril) ??? Hypnotics (such as Ambien or Lunesta) ??? Other prescription opioids KNOW YOUR OPTIONS Talk to your health care provider about ways to manage your pain that don???t involve prescription opioids. Some of these options may actually work better and have fewer risks and side effects. Options may include: ??? Pain relievers such as acetaminophen, ibuprofen, and naproxen ??? Some medication that are also used for depression or seizures ??? Physical therapy and exercise ??? Cognitive behavioral therapy, a psychological, goal-directed approach, in which patients learn how to modify physical, behavioral, and emotional triggers of pain and stress. IF YOU ARE PRESCRIBED OPIOIDS FOR PAIN: ??? Never take opioids in greater amounts or more often than prescribed. ??? Follow up with your primary health care provider. o Work together to create a plan on how to manage your pain. o Talk about ways to help manage your pain that don???t involve prescription opioids. o Talk about any and all concerns and side effects. ??? Help prevent misuse and abuse o Never sell or share prescription opioids. o Never use another person???s prescription opioids. ??? Store prescription opioids in a secure place and out of reach of others (this may include visitors, children, friends, and family). ??? Safely dispose of unused prescription opioids: Find your community drug take-back program or your pharmacy mail-back program, or flush them down the toilet, following guidance from the Food and Drug Administration (www.fda.gov/Drugs/Res ourcesFo (more content not included)... Normal [facility] Ethanolon 07-07-2024 Ethanol Lvl <10 Normal <=11 [facility] Comment on above: Performed By: #### 2 [id number] #### [facility] Laboratory [address] [place] [address] HEMATOLOGYOrdered By: SYSTEM SYSTEM on 07-07-2024 Basophils/100 WBC (Bld) 0.6 % Normal 0.0 - 2.0 % [facility] Comment on above: Result Comment: Amy ection date/time has been modified to: 18:23:00. Previous collection date/time: 18:45:00. Basophils/Leukocytes Auto (Bld) [Pure # fraction] 0.1 E9/L Normal 0.0 - 0.2 E9/L [facility] Comment on above: Result Comment: Amy ection date/time has been modified to: 18:23:00. Previous collection date/time: 18:45:00. Eosinophils (Bld) [#/Vol] 0.3 E9/L Normal 0.0 - 0.5 E9/L [facility] Comment on above: Result Comment: Amy ection date/time has been modified to: 18:23:00. Previous collection date/time: 18:45:00. Eosinophils/100 WBC (Bld) 3.1 % Normal 0.0 - 8.0 % [facility] Comment on above: Result Comment: Amy ection date/time has been modified to: 18:23:00. Previous collection date/time: 18:45:00. Erythrocyte distribution width (RBC) [Ratio] 15.1 % High 10.9 - 14.2 % [facility] Comment on above: Result Comment: Amy ection date/time has been modified to: 18:23:00. Previous collection date/time: 18:45:00. Hematocrit (Bld) [Volume fraction] 38.3 % Normal 34.0 - 46.0 % [facility] Comment on above: Result Comment: Amy ection date/time has been modified to: 18:23:00. Previous collection date/time: 18:45:00. Hemoglobin (Bld) [Mass/Vol] 12.7 g/dL Normal 12.0 - 16.0 gm/dL [facility] Comment on above: Result Comment: Amy ection date/time has been modified to: 18:23:00. Previous collection date/time: 18:45:00. Lymphocytes (Bld) [#/Vol] 2.4 E9/L Normal 1.0 - 4.0 E9/L [facility] Comment on above: Result Comment: Amy ection date/time has been modified to: 18:23:00. Previous collection date/time: 18:45:00. Lymphocytes/100 WBC (Bld) 26.6 % Normal 14.0 - 50.0 % [facility] Comment on above: Result Comment: Amy ection date/time has been modified to: 18:23:00. Previous collection date/time: 18:45:00. MCH (RBC) [Entitic mass] 29.9 pg Normal 27.0 - 34.0 pg [facility] Comment on above: Result Comment: Amy ection date/time has been modified to: 18:23:00. Previous collection date/time: 18:45:00. MCHC (RBC) [Mass/Vol] 33.1 g/dL Normal 31.4 - 36.0 gm/dL [facility] Comment on above: Result Comment: Amy ection date/time has been modified to: 18:23:00. Previous collection date/time: 18:45:00. MCV (RBC) [Entitic vol] 90.2 fL Normal 80.0 - 100.0 fL [facility] Comment on above: Result Comment: Amy ection date/time has been modified to: 18:23:00. Previous collection date/time: 18:45:00. Monocytes (Bld) [#/Vol] 0.5 E9/L Normal 0.2 - 1.0 E9/L [facility] Comment on above: Result Comment: Amy ection date/time has been modified to: 18:23:00. Previous collection date/time: 18:45:00. Monocytes/100 WBC (Bld) 5.5 % Normal 4.0 - 14.0 % [facility] Comment on above: Result Comment: Amy ection date/time has been modified to: 18:23:00. Previous collection date/time: 18:45:00. Neutrophils (Bld) [#/Vol] 5.8 E9/L Normal 2.0 - 7.5 E9/L [facility] Comment on above: Result Comment: Amy ection date/time has been modified to: 18:23:00. Previous collection date/time: 18:45:00. Neutrophils/100 WBC (Bld) 64.2 % Normal 36.0 - 75.0 % [facility] Comment on above: Result Comment: Amy ection date/time has been modified to: 18:23:00. Previous collection date/time: 18:45:00. Platelet mean volume (Bld) [Entitic vol] 10.1 fL Normal 6.4 - 10.8 fL [facility] Comment on above: Result Comment: Amy ection date/time has been modified to: 18:23:00. Previous collection date/time: 18:45:00. Platelets (Bld) [#/Vol] 183.0 E9/L Normal 150.0 - 500.0 E9/L [facility] Comment on above: Result Comment: Amy ection date/time has been modified to: 18:23:00. Previous collection date/time: 18:45:00. RBC (Bld) [#/Vol] 4.2 E12/L Low 4.3 - 5.9 E12/L [facility] Comment on above: Result Comment: Amy ection date/time has been modified to: 18:23:00. Previous collection date/time: 18:45:00. WBC corrected for nucl RBC Auto (Bld) [#/Vol] 9.1 E9/L Normal 4.0 - 11.0 E9/L [facility] Comment on above: Result Comment: Amy ection date/time has been modified to: 18:23:00. Previous collection date/time: 18:45:00. Hep Func Panelon 07-07-2024 Albumin [Mass/Vol] 3.9 g/dL Normal 3.3-5.0 [facility] Comment on above: Performed By: #### 2 [id number] #### [facility] [address] [place] [address] Albumin/Globulin (S) [Mass conc ratio] 1.4 Normal 1.1-2.2 [facility] Comment on above: Performed By: #### 2 [id number] #### [facility] [address] [place] [address] ALP [Catalytic activity/Vol] 112 Int._Unit/L High 21-98 [facility] Comment on above: Performed By: #### 2 [id number] #### [facility] [address] [place] [address] ALT No additional P-5'-P [Catalytic activity/Vol] 11 Int._Unit/L Normal 6-46 [facility] Comment on above: Performed By: #### 2 [id number] #### [facility] [address] [place] [address] AST [Catalytic activity/Vol] 13 Int._Unit/L Normal 5-43 [facility] Comment on above: Performed By: #### 2 [id number] #### [facility] [address] [place] [address] Bilirubin [Mass/Vol] 0.4 mg/dL Normal 0.0-1.1 [facility] Comment on above: Performed By: #### 2 [id number] #### [facility] [address] [place] [address] Bilirubin.direct [Mass/Vol] 0.1 mg/dL Normal 0.0-0.4 [facility] Comment on above: Performed By: #### 2 [id number] #### [facility] [address] [place] [address] Bilirubin.indirect [Mass or moles/Vol] 0.3 mg/dL Normal 0.1-0.9 [facility] Comment on above: Performed By: #### 2 [id number] #### [facility] [address] [place] [address] Globulin (S) [Mass/Vol] 2.8 g/dL Normal 1.4-4.0 [facility] Comment on above: Performed By: #### 2 [id number] #### [facility] [address] [place] [address] Protein [Mass/Vol] 6.7 g/dL Normal 6.0-7.8 [facility] Comment on above: Performed By: #### 2 [id number] #### [facility] [address] [place] [address] Lactic Acidon 07-07-2024 Lactic Acid Lvl 0.9 mmol/L Normal 0.5-2.2 [facility] Comment on above: Performed By: #### 2 [id number] #### [facility] [address] [place] [address] Lipase Levelon 07-07-2024 Lipase [Catalytic activity/Vol] 22 U/L Normal 13-58 [facility] Comment on above: Performed By: #### 2 [id number] #### [facility] [address] [place] [address] Magnesiumon 07-07-2024 Magnesium [Mass/Vol] 2.2 mg/dL Normal 1.3-2.4 [facility] Comment on above: Performed By: #### 2 [id number] #### [facility] [address] [place] [address] Myoglobinon 07-07-2024 Myoglobin [Mass/Vol] 128 ng/mL High <=69 [facility] Comment on above: Performed By: #### 2 [id number] #### [facility] [address] [place] [address] PT & PTTon 07-07-2024 aPTT Coag (PPP) [Time] 31.1 second(s) Normal 25.1-36.5 [facility] Comment on above: Result Comment: Para meter 15 days - 4 weeks 1 - 5 months 6 - 11 months 1 - 5 years 6 - 10 years 11 - 17 years PTT Mean: 35.4 (27.6-45.6) Mean: 33.5 (24.8-40.7) Mean: 32.4 (25.1-40.7) Mean: 31.6 (24.0-39.2) Mean: 31.6 (26.9-38.7) Mean: 31.0 (24.6-38.4) Pediatric Reference ranges were obtained from a study by Jerry Cannon et al. prepared from 1437 samples obtained at 7 different centers using the same coagulation reagent and instrumentation as [facility]. Currently there are no coagulation studies available worldwide for children to 14 days, and no normal ranges. Heparin therapeutic range (represented by Anti-Factor Xa activity of 0.2 - 0.4 U/mL) corresponds to PTT of 56.6 - 109.0 sec. Performed By: #### 1 [id number] #### [facility] [address] [place] [address] INR Coag (PPP) [Relative time] 0.92 {INR} Invalid Interpretation Code [facility] Comment on above: Result Comment: INR results are specifically intended to assess patients stabilized on long-term Anticoagulation therapy suggested INR???s ???Less Intensive Anticoagulation??? 2.0 ??? 3.0 Conventional Range 3.0 ??? 4.5 Performed By: #### 1 [id number] #### [facility] [address] [place] [address] PT Coag (PPP) [Time] 10.3 second(s) Normal 9.4-12.5 [facility] Comment on above: Result Comment: 15 d ays - 4 weeks 1 - 5 months 6 -11 months 1- 5 years 6-10 years 11 -17 years Mean: 11.2 (9.5-12.6) Mean: 11.0 (9.7-12.8) Mean: 11.0 (9.8-13.0) Mean: 11.3 (9.9-13.4) Mean: 11.7 (10.0-14.6) Mean: 11.8 (10.0 - 14.1) Pediatric Reference ranges were obtained from a study by Jerry Cannon et al. prepared from 1437 samples obtained at 7 different centers using the same coagulation reagent and instrumentation as [facility]. Currently there are no coagulation studies available worldwide for children to 14 days, and no normal ranges. Performed By: #### 1 [id number] #### [facility] [address] [place] [address] SEROLOGYOrdered By: Gerri Chavez on 07-07-2024 Beta HCG ( test) Ql Negative (07/07/24 6:23 PM) Normal [facility] Man Sero Troponinon 07-07-2024 Troponin HS 10.70 pg/mL Normal 10.10-27.10 [facility] Comment on above: Result Comment: The 95% CI (Confidence Interval) PPV (Positive Predictive Value) for myocardial infarction in females is 38 pg/mL, in males 51 pg/mL. The results should be used in conjunction with clinical conditions of myocardial infarction. (Access High Sensitivity Troponin I Instructions For Use, Lalito Neopit, February 2018) Performed By: #### 2 [id number] #### [facility] [address] [place] [address] U Drug Screenon 07-07-2024 Amphetamines Screen method >1000 ng/mL Ql (U) Negative Normal NEGATIVE [facility] Comment on above: Result Comment: Nega tive Cutoff: <1000 ng/mL Performed By: #### 2 [id number] #### [facility] [address] [place] [address] Barbiturates Screen Ql (U) Negative Normal NEGATIVE [facility] Comment on above: Result Comment: Nega tive Cutoff: <200 ng/mL Performed By: #### 2 [id number] #### [facility] [address] [place] [address] Benzodiazepines Ql (U) Negative Normal NEGATIVE [facility] Comment on above: Result Comment: Nega tive Cutoff: <200 ng/mL Performed By: #### 2 [id number] #### [facility] [address] [place] [address] Cannabinoids Screen Ql (U) Negative Normal NEGATIVE [facility] Comment on above: Result Comment: Nega tive Cutoff: <50 ng/mL Performed By: #### 2 [id number] #### [facility] [address] [place] [address] Cocaine Ql (U) Negative Normal NEGATIVE [facility] Comment on above: Result Comment: Nega tive Cutoff: <300 ng/mL Performed By: #### 2 [id number] #### [facility] [address] [place] [address] Opiates Screen Ql (U) Negative Normal NEGATIVE [facility] Comment on above: Result Comment: Nega tive Cutoff: <300 ng/mL Performed By: #### 2 [id number] #### [facility] [address] [place] [address] Phencyclidine Screen method >25 ng/mL Ql (U) Negative Normal NEGATIVE [facility] Comment on above: Result Comment: Nega tive Cutoff: <25 ng/mL These drug screen results are to be used for medical (i.e., treatment) purposes only. Unconfirmed drug screening results must not be used for non-medical purposes (e.g., employment testing, legal testing). Performed By: #### 2 [id number] #### [facility] [address] [place] [address] U Fentanyl Negative Normal NEGATIVE [facility] Comment on above: Result Comment: Nega tive Cutoff: <5 ng/mL These drug screen results are to be used for medical (i.e., treatment) purposes only. Unconfirmed drug screening results must not be used for non-medical purposes (e.g., employment testing, legal testing). Performed By: #### 2 [id number] #### [facility] [address] [place] [address] UA with Cult Rflxon 07-07-20 24 Bacteria Auto Ql (U) 1+ /HPF Abnormal Trace Fish [facility] Comment on above: Performed By: #### 4 [id number] #### [facility] [address] [place] [address] Bilirubin Ql (U) Negative Normal Negative [facility] Comment on above: Performed By: #### 4 [id number] #### [facility] [address] [place] [address] Clarity (U) Ex.Turbid Abnormal Clear [facility] Comment on above: Performed By: #### 4 [id number] #### [facility] [address] [place] [address] Color (U) Light-[place] Abnormal Yellow [facility] Comment on above: Result Comment: Micr oscopic readings are only performed on those samples that meet specific criteria set forth by [facility]. Performed By: #### 4 [id number] #### [facility] [address] [place] [address] Epithelial cells.squamous Auto (Urine sed) [#/Area] >10 Invalid Interpretation Code [facility] Comment on above: Performed By: #### 4 [id number] #### [facility] [address] [place] [address] Glucose Ql (U) 4+ mg/dL Abnormal Negative [facility] Comment on above: Performed By: #### 4 [id number] #### [facility] [address] [place] [address] Hemoglobin Auto test strip (U) [Mass/Vol] 1+ mg/dL Abnormal Negative [facility] Comment on above: Performed By: #### 4 [id number] #### [facility] [address] [place] [address] Ketones Auto test strip Ql (U) Negative Normal Negative [facility] Comment on above: Performed By: #### 4 [id number] #### [facility] [address] [place] [address] Leukocyte esterase Auto test strip Ql (U) 500 Isidoro/uL Abnormal Negative [facility] Comment on above: Performed By: #### 4 [id number] #### [facility] [address] [place] [address] Mucus Auto Ql (U) Negative Normal Negative [facility] Comment on above: Performed By: #### 4 [id number] #### [facility] [address] [place] [address] Nitrite Auto test strip Ql (U) Negative Normal Negative [facility] Comment on above: Performed By: #### 4 [id number] #### [facility] [address] [place] [address] pH (U) 6.5 [pH] Invalid Interpretation Code 5.0-9.0 [facility] Comment on above: Performed By: #### 4 [id number] #### [facility] [address] [place] [address] Protein Ql (U) Trace Abnormal Negative [facility] Comment on above: Performed By: #### 4 [id number] #### [facility] [address] [place] [address] RBC Ql (U) 31-75 Abnormal 0-3 [facility] Comment on above: Performed By: #### 4 [id number] #### [facility] [address] [place] [address] Specific gravity (U) [Rel density] 1.019 Invalid Interpretation Code 1.005-1.030 [facility] Comment on above: Performed By: #### 4 [id number] #### [facility] [address] [place] [id number] Urobilinogen (U) [Mass/Vol] Negative Normal Negative [facility] Comment on above: Performed By: #### 4 [id number] #### [facility] [address] [place] [address] WBC Auto (Urine sed) [#/Area] 31-75 Abnormal 0-5 [facility] Comment on above: Performed By: #### 4 [id number] #### [facility] [address] [place] [address] Yeast.budding Computer assisted Ql (U) Trace Abnormal [facility] Comment on above: Performed By: #### 4 [id number] #### [facility] [address] [place] [address] Type of Urine collection method Clean Catch Normal [facility] Comment on above: Performed By: #### 4 [id number] #### [facility] [address] [place] [address] URINALYSISOrdered By: SYSTEM SYSTEM on 07-07-2024 Bacteria Auto Ql (U) 1+ /HPF Invalid Interpretation Code Trace/HPF [facility] UA Auto SS Bilirubin Ql (U) Negative Normal Negativemg/ d L [facility] UA Auto SS Clarity (U) Ex.Turbid *ABN* (07/07/24 7:41 PM) Invalid Interpretation Code Clear [facility] UA Auto SS Color (U) Light-[place] 3 *ABN* (07/07/24 7:41 PM) Invalid Interpretation Code Yellow [facility] UA Auto SS Comment on above: Interpretive Data: M icroscopic readings are only performed on those samples that meet specific criteria set forth by [facility]. Epithelial cells.squamous Auto (Urine sed) [#/Area] >10 graded/HPF Invalid Interpretation Code [facility] UA Auto SS Glucose Ql (U) 4+ mg/dL Invalid Interpretation Code Negativemg/d L [facility] UA Auto SS Hemoglobin Auto test strip (U) [Mass/Vol] 1+ mg/dL Invalid Interpretation Code Negativemg/d L [facility] UA Auto SS Ketones Auto test strip Ql (U) Negative Normal Negativemg/d L [facility] UA Auto SS Leukocyte esterase Auto test strip Ql (U) 500 Isidoro/uL Isidoro/uL Invalid Interpretation Code NegativeLeu/ uL [facility] UA Auto SS Mucus Auto Ql (U) Negative Normal Negativegr ad ed/LPF [facility] UA Auto SS Nitrite Auto test strip Ql (U) Negative Normal Negativemg/d L [facility] UA Auto SS pH (U) 6.5 *NA* (07/07/24 7:41 PM) Invalid Interpretation Code 5.0 - 9.0 [facility] UA Auto SS Protein Ql (U) Trace mg/dL Invalid Interpretation Code Negativemg/d L [facility] UA Auto SS RBC Ql (U) 31-75 graded/HPF Invalid Interpretation Code 0-3graded/HP F [facility] UA Auto SS Specific gravity (U) [Rel density] 1.019 *NA* (07/07/24 7:41 PM) Invalid Interpretation Code 1.005 - 1.030 [facility] UA Auto SS Urobilinogen (U) [Mass/Vol] Negative Normal Negativemg/d L [facility] UA Auto SS WBC Auto (Urine sed) [#/Area] 31-75 graded/HPF Invalid Interpretation Code 0-5graded/HP F [facility] UA Auto SS Yeast.budding Computer assisted Ql (U) Trace graded/HPF Invalid Interpretation Code [facility] UA Auto SS URINALYSISOrdered By: Gloria Smith on 07-07-2024 UA Spec Desc Clean Catch (07/07/24 7:41 PM) Normal [facility] UA Auto SS eGFRon 07-07-2024 eGFR 30 mL/min/1.73 m2 Low >=59 [facility] Comment on above: Performed By: #### 1 [id number] #### [facility] [address] [place] [address] Kobe 04-13-2024 L Specimen: [id number] Received: 09/18/24-1244 Status: SOUT Req Num: [id number] Spec Type: Cytology Subm Dr: Da Phillip DO Tissues: A FNA SLIDES NOPATH (RT THYR) B FNA SLIDES NOPATH (THY ISTHM) Procedures: Cyto Int and Re/2, PAPSTN/22 Age/ Patient Sex Location Account Attending Physician Virgen Gonzales 68/F [place] [id number] Da Phillip DO SPEC NUM: [id number] RECD: 04/15/24 STATUS: ANIRUDH REQ NUM: [id number] AMY: 04/13/24 [facility] DR: Da Phillip DO ENTERED: 04/15/[address]: SPEC TYPE: Cytology DEPT: CNG ENTERED BY: [id number] RECV BY: [id number] ORDERED: Cyto Int and Re/2, PAPSTN/22 ORDERED: Cyto Int and Re/2, PAPSTN/22 Supplemental Report Addendum 2 Entered: 05/11/24-1013 Supplemental to correct the specimen type of Part B specimen, without a change of initial diagnosis Corrected specimen type B, Isthmus thyroid nodule, FNA cytology: Addendum Signed (signature on file) Noemy De Los Santos MD 05/11/24 1013 ---- Addendum 1 Entered: 05/11/24-1009 Supplemental for [facility] [employer]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%) ---- Specimen: [id number] Received: 04/15/24 Status: ANIRUDH Navarro Num: [id number] Spec Type: Cytology Subm Dr: Da Phillip DO Tissues: A FNA SLIDES NOPATH (RT THYR) B FNA SLIDES NOPATH (THY ISTHM) Procedures: Cyto Int and Re/2, PAPSTN/22 ---- Patient: Virgen Gonzales [id number] (Continued) ---- Specimen: [id number] Received: 04/15/24 (Continued) Supplemental Report (Continued) Signed (signature on file) Noemy De Los Santos MD 04/21/24 1010 ---- Specimen: [id number] Received: 04/15/24 Status: ANIRUDH Navarro Num: [id number] Spec Type: Cytology Subm Dr: Da Phillip DO Tissues: A FNA SLIDES NOPATH (RT THYR) B FNA SLIDES NOPATH (THY ISTHM) Procedures: Cyto Int and Re/2, PAPSTN/22 ---- Patient: JanetVirgen [id number] (Continued) ---- Specimen: [id number] Received: 04/15/24-1244 (Continued) Supplemental Report (Continued) -Xpression Artie -N/A -Other Classifiers -BRAF: Negative -RET/PTC1: Not detected -RET/PTC3: Not detected -MTC: Negative -Parathyroid: Negative TERT PROMOTER REGION: -Tests not performed (TNP) Addendum Signed (signature on file) Mitesh-Pancho De Los Santos MD 05/11/24 1009 ---- Pathological Diagnosis A, right thyroid nodule, mid, FNA cytology: -A few follicular groups present in combined smears, appropriate for assessment -Most follicular cells show uniform small round to ovoid nuclei. However, rare follicular groups display slightly enlarged ovoid nuclei, including 1 with noted nuclear inclusion, suspicious for atypia of undetermined significance, the category 3 [place] system -Pending additional molecular triage study to follow B, instruments thyroid nodule, FNA cytology: -A few follicular cells are present in combined smears, including occasional small and/or loose follicular groups, adequately for assessment, often showing small round to ovoid nuclei, consistent with the category 2 [place] system: Benign ---- Specimen: [id number] Received: 04/15/24 Status: ANIRUDH Navarro Num: [id number] Spec Type: Cytology Subm Dr: Da Phillip,DO Tissues: A FNA SLIDES NOPATH (RT THYR) B FNA SLIDES NOPATH (THY ISTHM) Procedures: Cyto Int and Re/2, PAPSTN/22 ---- Patient: Virgen Gonzales [id number] (Continued) ---- Specimen: [id number] Received: 04/15/24 (Continued) Signed (signature on file) Chin-Pancho De Los Santos, MD 04/21/24 1010 ---- Specimen: [id number] Received: 04/15/24-4 Status: ANIRUDH Navarro Num: [id number] Spec Type: Cytology Subm Dr: Da Phillip,DO Tissues: A FNA SLIDES NOPATH (RT THYR) B FNA SLIDES N (more content not included)... Normal [facility] Thyrotropin [Units/volume] i n Serum or PlasmaOrdered By: Da Phillip on 03-26-2024 TSH Qn 1.31 m[IU]/L Normal 0.45-5.33 [facility] Comment on above: Result Comment: PERF ORMED BY: [place] [address] PATHOLOGIST MEAT STUFFER JENNIFER HERNANDEZ M.D. Performed By: #### T 3T, T4T, TSH3 #### [facility] [address] [place] [address] Thyroxine (T4) [Mass/volume] in Serum or PlasmaOrdered By: Da Phillip on 03-26-2024 T4 [Mass/Vol] 9.37 ug/dL Normal 5.39-11.82 [facility] Comment on above: Performed By: #### T 3T, T4T, TSH3 #### [facility] [address] [place] [address] [place] Triiodothyronine (T3) Totalo n 03-26-2024 Triiodothyronine (T3) Total 0.90 ng/mL Normal 0.87-1.78 [facility] Comment on above: Performed By: #### T 3T, T4T, TSH3 #### [facility] [address] [place] [address] [place] Triiodothyronine (T3) [Mass/ volume] in Serum or PlasmaOrdered By: Da Phillip on 03-26-2024 T3 [Mass/Vol] 0.90 ng/mL 0.87-1.78 [facility] Kobe 02-14-2024 L Specimen: [id number] Received: 02/17/24 Status: ANIRUDH Req Num: [id number] Spec Type: Cytology Subm Dr: Aggie Davis CNP Tissues: A FNA SLIDES NOPATH (RT THYROID NOD) B FNA SLIDES NOPATH (ISTHMUS THY) Procedures: Cyto Int and Re/2, PAPSTN/10 Age/ Patient Sex Location Account Attending Physician Virgen Gonzales 68/F [place] [id number] Aggie Davis CNP SPEC NUM: [id number] RECD: 02/17/24 STATUS: ANIRUDH REQ NUM: [id number] AMY: 02/14/24 DR: Aggie Davis CNP ENTERED: 02/17/[address]: [place],Lab Becky Avilez MD SPEC TYPE: Cytology DEPT: POP NCRADHA ENTERED BY: [id number] RECV BY: [id number] ORDERED: Cyto Int and Re/2, PAPSTN/10 ORDERED: Cyto Int and Re/2, PAPSTN/10 Pathological Diagnosis A. Right thyroid,?fine needle aspiration:? Suspicious for follicular neoplasm, Atypical Follicular Cells With Abundant Colloid. [place] Category IV B. Isthmus, fine needle aspiration:? Unsatisfactory for evaluation. Too few epithelial cells. [place]?Category?I Clinical Information Thyroid Nodules Gross Description A. (RIGHT) Received fixed in Cytolyt is <1 ml very pale pink clear fluid for cytology said to have been obtained as right thyroid nodule-mid . ThinPrep preparations are prepared for microscopic examination. Also received are 4 spray fixed smeared slides to be stained pap aa Veracyte vial stored at -20 for microscopic examination.(OK/wv) B. (ISTHMUS) Received fixed in Cytolyt is (1 ml pink clear fluid for cytology said to have ---- Specimen: [id number] Received: 02/17/24 Status: ANIRUDH Navarro Num: [id number] Spec Type: Cytology Subm Dr: Aggie Davis CNP Tissues: A FNA SLIDES NOPATH (RT THYROID NOD) B FNA SLIDES NOPATH (ISTHMUS THY) Procedures: Cyto Int and Re/2, PAPSTN/10 ---- Patient: Virgen Gonzales [id number] (Continued) ---- Specimen: [id number] Received: 02/17/24 (Continued) Gross Description (Continued) Signed (signature on file) Nishant Morley MD 02/19/24 1428 ---- Specimen: [id number] Received: 02/17/24 Status: ANIRUDH Navarro Num: [id number] Spec Type: Cytology Subm Dr: Aggie Davis CNP Tissues: A FNA SLIDES NOPATH (RT THYROID NOD) B FNA SLIDES NOPATH (ISTHMUS THY) Procedures: Cyto Int and Re/2, PAPSTN/10 ---- Patient: JanetVirgen Ramiro [id number] (Continued) ---- Specimen: [id number] Received: 02/17/24 (Continued) Gross Description (Continued) been obtained as Isthmus thyroid nodule. ThinPrep preparations are prepared for microscopic examination. Also received are 4 spray fixed smeared smeared slides to be stained pap and a Veracyte vial stored at -20 for microscopic examination.(OK/wv) CPT Codes 60443h8 ---- ---- Specimen: [id number] Received: 02/17/24-3 Status: ANIRUDH Navarro Num: [id number] Spec Type: Cytology Subm Dr: Aggie Davis, [employer] Tissues: A FNA SLIDES NOPATH (RT THYROID NOD) B FNA SLIDES NOPATH (ISTHMUS THY) Procedures: Cyto Int and Re/2, PAPSTN/10 ---- Patient: Virgen Gonzales [id number] (Continued) ---- Signed (signature on file) Nishant Morley MD 02/19/24 4077 Normal [facility] Nonvisit Note - PTon 024 Nonvisit Note - PT Pt cancelled reassessment due to being sick. JANICE Normal [facility] Nonvisit Note - PTon 024 Nonvisit Note - PT Pt no showed for 171 5 appointment. Normal [facility] Nonvisit Note - PTon 024 Nonvisit Note - PT Pt called to cancel as she is ill. Normal [facility] Consent for Treatmenton 10-28 Consent for Treatment [id number] [id number]#1.0 0TIFF Normal [facility] PT - Assessmentson PT - Assessments [id number] 22 [id number]#1.0 0TIFF Normal [facility] PT - Consentson 11-19-2023 PT - Consents [id number] 22 [id number]#1.0 0TIFF Normal [facility] Insurance Correspondenceon 0 11-12-2023 Insurance Correspondence [id number]#1. 00TIFF Normal [facility] PT - Orderson 11-11-2023 PT - Orders [id number] 01 [id number]#1. 00TIFF Normal [facility] L Inj/Asp: L kneeon 08-27-19 24 Sue Henning ARR T 09/02/2023 8:37 AM L Inj/Asp: L knee on 08/27/2023 3:43 PM Indications: pain Details: 21 G needle, lateral approach Medications: 16 mg hylan 16 MG/2ML Consent was given by the patient. [facility] PROF 14(COMP METB)on 023 Albumin [Mass/Vol] 3.2 g/dL Critically low 3.4-5.0 [facility] Comment on above: Performed By: #### T SH, CMP, T7, LIPID #### [facility] [address] [address] [address] Danay De Los Santos Albumin/Globulin [Mass ratio] 1.0 {ratio} Normal [facility] Comment on above: Performed By: #### T SH, CMP, T7, LIPID #### [facility] [address] [address] [address] Danay De Los Santos ALP [Catalytic activity/Vol] 92 U/L Normal 46-116 [facility] Comment on above: Performed By: #### T SH, CMP, T7, LIPID #### [facility] [address] [address] [address] Danay De Los Santos ALT [Catalytic activity/Vol] 21 U/L Normal 14-59 [facility] Comment on above: Performed By: #### T SH, CMP, T7, LIPID #### [facility] [address] [address] [address] Danay De Los Santos Anion gap [Moles/Vol] 13.2 mmol/L Normal [facility] Comment on above: Performed By: #### T SH, CMP, T7, LIPID #### [facility] [address] [address] [address] Danay De Los Santos AST [Catalytic activity/Vol] 14 U/L Critically low 15-37 [facility] Comment on above: Performed By: #### T SH, CMP, T7, LIPID #### [facility] [address] [address] [address] Danay De Los Santos Bilirubin [Mass/Vol] 0.2 mg/dL Normal 0.2-1.0 [facility] Comment on above: Performed By: #### T SH, CMP, T7, LIPID #### [facility] [address] [address] [address] Danay De Los Santos Calcium [Mass/Vol] 8.6 mg/dL Normal 8.5-10.1 [facility] Comment on above: Performed By: #### T SH, CMP, T7, LIPID #### [facility] [address] [address] [address] Danay De Los Santos Chloride [Moles/Vol] 105 mmol/L Normal 98-107 [facility] Comment on above: Performed By: #### T SH, CMP, T7, LIPID #### [facility] [address] [address] [address] Danay De Los Santos CO2 [Moles/Vol] 27.9 mmol/L Normal 21.0-32.0 [facility] Comment on above: Performed By: #### T SH, CMP, T7, LIPID #### [facility] [address] [address] [address] Danay De Los Santos Creatinine [Mass/Vol] 1.47 mg/dL Critically high 0.55-1.02 [facility] Comment on above: Performed By: #### T SH, CMP, T7, LIPID #### [facility] [address] [place] [address] Dr. Danay De Los Santos EGFR-AF SAUDI ARABIAN 43 mL/min/1.73m2 Critically low >=60 [facility] Comment on above: Performed By: #### T SH, CMP, T7, LIPID #### [facility] [address] [place] [address] Dr. Danay De Los Santos EGFR-NON AF SAUDI ARABIAN 35 mL/min/1.73m2 Critically low >=60 [facility] Comment on above: Performed By: #### T SH, CMP, T7, LIPID #### [facility] [address] [place] [address] Dr. Danay De Los Santos Globulin (S) [Mass/Vol] 3.3 g/dL Normal [facility] Comment on above: Performed By: #### T SH, CMP, T7, LIPID #### [facility] [address] [place] [address] Dr. Danay De Los Santos Glucose [Mass/Vol] 145 mg/dL Critically high 74-106 [facility] Comment on above: Performed By: #### T SH, CMP, T7, LIPID #### [facility] [address] [place] [address] Dr. Danay De Los Santos Potassium [Moles/Vol] 4.1 mmol/L Normal 3.5-5.1 [facility] Comment on above: Performed By: #### T SH, CMP, T7, LIPID #### [facility] [address] [place] [address] Dr. Danay De Lo sSantos Protein [Mass/Vol] 6.5 g/dL Normal 6.4-8.2 [facility] Comment on above: Performed By: #### T SH, CMP, T7, LIPID #### [facility] [address] [place] [address] Dr. Danay De Los Santos Sodium [Moles/Vol] 142 mmol/L Normal 136-145 [facility] Comment on above: Performed By: #### T SH, CMP, T7, LIPID #### [facility] [address] [address] [address] Danay De Los Santos Urea nitrogen [Mass/Vol] 22.0 mg/dL Critically high 7.0-18.0 [facility] Comment on above: Performed By: #### T SH, CMP, T7, LIPID #### [facility] [address] [address] [address] Danay De Los Santos Urea nitrogen/Creatinine [Mass ratio] 15.0 mg/mg Normal [facility] Comment on above: Performed By: #### T SH, CMP, T7, LIPID #### [facility] [address] [address] [address] Danay De Los Santos PROF CHEM 8 (BAS METB)on Anion gap [Moles/Vol] 12.1 mmol/L Normal [facility] Comment on above: Performed By: #### B MP #### [facility] [address] [address] [address] Danay De Los Santos Calcium [Mass/Vol] 8.8 mg/dL Normal 8.5-10.1 [facility] Comment on above: Performed By: #### B MP #### [facility] [address] [address] [address] Danay De Los Santos Chloride [Moles/Vol] 103 mmol/L Normal 98-107 [facility] Comment on above: Performed By: #### B MP #### [facility] [address] [address] [address] Danay De Los Santos CO2 [Moles/Vol] 28.6 mmol/L Normal 21.0-32.0 [facility] Comment on above: Performed By: #### B MP #### [facility] [address] [address] [address] Danay De Los Santos Creatinine [Mass/Vol] 2.08 mg/dL Critically high 0.55-1.02 [facility] Comment on above: Performed By: #### B MP #### [facility] [address] [address] [address] Danay De Los Santos EGFR-AF SAUDI ARABIAN 29 mL/min/1.73m2 Critically low >=60 [facility] Comment on above: Performed By: #### B MP #### [facility] [address] [address] [address] Danay De Los Santos EGFR-NON AF SAUDI ARABIAN 24 mL/min/1.73m2 Critically low >=60 [facility] Comment on above: Performed By: #### B MP #### [facility] [address] [address] [address] Danay De Los Santos Glucose [Mass/Vol] 259 mg/dL Critically high 74-106 [facility] Comment on above: Performed By: #### B MP #### [facility] [address] [address] [address] Danay De Los Santos Potassium [Moles/Vol] 4.7 mmol/L Normal 3.5-5.1 [facility] Comment on above: Performed By: #### B MP #### [facility] [address] [address] [address] Danay De Los Santos Sodium [Moles/Vol] 139 mmol/L Normal 136-145 [facility] Comment on above: Performed By: #### B MP #### [facility] [address] [address] [address] Danay De Los Santos Urea nitrogen [Mass/Vol] 27.0 mg/dL Critically high 7.0-18.0 [facility] Comment on above: Performed By: #### B MP #### [facility] [address] [address] [address] Danay De Los Santos Urea nitrogen/Creatinine [Mass ratio] 13.0 mg/mg Normal [facility] Comment on above: Performed By: #### B MP #### [facility] [address] [address] [address] Danay De Los Santos INSULINon 12-17-2022 Insulin 11.1 uIU/mL Normal 2.6-24.9 [facility] Comment on above: Performed By: #### I NSULIN #### [facility] [address] [address] [address] Danay De Los Santos BNPon 12-15-2022 Natriuretic peptide B (Bld) [Mass/Vol] 110.0 pg/mL Normal <=900.0 [facility] Comment on above: Performed By: #### T SH, CMP, T7, LIPID #### [facility] [address] [place] [address] Dr. Danay De Los Santos CBC AUTO DIFFon 12-15-2022 BASO # 0.1 103/ul Normal 0.0-0.1 [facility] Comment on above: Performed By: #### T SH, CMP, T7, LIPID #### [facility] [address] [place] [address] Dr. Danay De Los Santos Basophils/100 WBC (Bld) 0.5 % Normal 0.2-2.0 [facility] Comment on above: Performed By: #### T SH, CMP, T7, LIPID #### [facility] [address] [place] [address] Dr. Danay De Los Santos EO # 0.7 103/ul Normal 0.0-0.7 [facility] Comment on above: Performed By: #### T SH, CMP, T7, LIPID #### [facility] [address] [place] [address] Dr. Danay De Los Santos Eosinophils/100 WBC (Bld) 6.0 % Normal 0.9-7.0 [facility] Comment on above: Performed By: #### T SH, CMP, T7, LIPID #### [facility] [address] [place] [address] Dr. Danay De Los Santos Erythrocyte distribution width (RBC) [Ratio] 15.6 % Critically high 11.0-15.0 [facility] Comment on above: Performed By: #### T SH, CMP, T7, LIPID #### [facility] [address] [place] [address] Dr. Danay De Los Santos Hematocrit (Bld) [Volume fraction] 40.2 % Normal 36.0-48.0 [facility] Comment on above: Performed By: #### T SH, CMP, T7, LIPID #### [facility] [address] [place] [address] Dr. Danay De Los Santos Hemoglobin (Bld) [Mass/Vol] 12.6 g/dL Normal 12.0-16.0 [facility] Comment on above: Performed By: #### T SH, CMP, T7, LIPID #### [facility] [address] [place] [address] Dr. Danay De Los Santos IG # 0.06 10e3/ul Critically high 0.00-0.03 [facility] Comment on above: Performed By: #### T SH, CMP, T7, LIPID #### [facility] [address] [place] [address] Dr. Danay De Los Santos IG % 0.5 % Normal 0.0-0.5 [facility] Comment on above: Performed By: #### T SH, CMP, T7, LIPID #### [facility] [address] [place] [address] Dr. Danay De Los Santos LYMPH # 3.2 103/ul Normal 1.2-3.8 [facility] Comment on above: Performed By: #### T SH, CMP, T7, LIPID #### [facility] [address] [place] [address] Dr. Danay De Los Santos Lymphocytes/100 WBC (Bld) 28.9 % Normal 20.5-60.0 [facility] Comment on above: Performed By: #### T SH, CMP, T7, LIPID #### [facility] [address] [place] [address] Dr. Danay De Los Santos MANUAL DIFF REQ NO Normal [facility] Comment on above: Performed By: #### T SH, CMP, T7, LIPID #### [facility] [address] [place] [address] Dr. Danay De Los Santos MCH (RBC) [Entitic mass] 27.3 pg Normal 26.7-34.0 [facility] Comment on above: Performed By: #### T SH, CMP, T7, LIPID #### [facility] [address] [place] [address] Dr. Danay De Los Santos MCHC (RBC) [Mass/Vol] 31.3 g/dL Normal 29.9-35.2 [facility] Comment on above: Performed By: #### T SH, CMP, T7, LIPID #### [facility] [address] [address] [address] Danay De Los Santos MCV (RBC) [Entitic vol] 87.2 fL Normal 81.0-99.0 [facility] Comment on above: Performed By: #### T SH, CMP, T7, LIPID #### [facility] [address] [place] [address] Dr. Danay De Los Santos MONO # 0.6 103/ul Normal 0.3-0.8 [facility] Comment on above: Performed By: #### T SH, CMP, T7, LIPID #### [facility] [address] [place] [address] Dr. Danay De Los Santos Monocytes/100 WBC (Bld) 5.7 % Normal 1.7-12.0 [facility] Comment on above: Performed By: #### T SH, CMP, T7, LIPID #### [facility] [address] [place] [address] Dr. Danay De Los Santos NEUT # 6.4 103/ul Normal 1.4-6.5 [facility] Comment on above: Performed By: #### T SH, CMP, T7, LIPID #### [facility] [address] [place] [address] Dr. Danay De Los Santos Neutrophils/100 WBC (Bld) 58.4 % Normal 43.0-75.0 [facility] Comment on above: Performed By: #### T SH, CMP, T7, LIPID #### [facility] [address] [place] [address] Dr. Danay De Los Santos Platelet mean volume (Bld) [Entitic vol] 10.6 fL Normal 9.5-13.5 [facility] Comment on above: Performed By: #### T SH, CMP, T7, LIPID #### [facility] [address] [place] [address] Dr. Danay De Los Santos PLT 251 103/ul Normal 150-450 [facility] Comment on above: Performed By: #### T SH, CMP, T7, LIPID #### [facility] [address] [place] [address] Dr. Danay De Los Santos RBC 4.61 106/ul Normal 4.20-5.40 [facility] Comment on above: Performed By: #### T SH, CMP, T7, LIPID #### [facility] [address] [address] [address] Danay De Los Santos WBC 10.9 103/ul Normal 4.0-11.0 [facility] Comment on above: Performed By: #### T SH, CMP, T7, LIPID #### [facility] [address] [address] [address] Danay De Los Santos FREE THYROXINE INDEX T7on FTI 2.87 Normal 1.30-4.50 [facility] Comment on above: Performed By: #### T SH, CMP, T7, LIPID #### [facility] [address] [place] [address] Dr. Danay De Los Santos T3U 35.0 % Normal 30.0-39.0 [facility] Comment on above: Performed By: #### T SH, CMP, T7, LIPID #### [facility] [address] [address] [address] Danay De Los Santos T4 [Mass/Vol] 8.20 ug/dL Normal 4.80-13.90 [facility] Comment on above: Performed By: #### T SH, CMP, T7, LIPID #### [facility] [address] [place] [address] Dr. Danay De Los Santos GLYCOHEMOGLOBIN A1Con 2022 ADA RECOMMENDATION SEE BELOW Normal [facility] Comment on above: Result Comment: ADA RECOMMENDED LIMIT 4.0 - 6.0 ADA THERAPEUTIC TARGET < 7.0 ACTION SUGGESTED > 7.0 Performed By: #### A 1C #### [facility] [address] [place] [address] Dr. Danay De Los Santos Glucose [Mass/Vol] 203 mg/dL Normal [facility] Comment on above: Performed By: #### A 1C #### [facility] [address] [place] [address] Dr. Danay De Los Santos HbA1c (Bld) [Mass fraction] 8.7 % Critically high 4.5-6.2 [facility] Comment on above: Performed By: #### A 1C #### [facility] [address] [address] [address] Danay De Los Santos IRONon 12-15-2022 Iron [Mass/Vol] 39.0 ug/dL Critically low 50.0-170.0 [facility] Comment on above: Performed By: #### T SH, CMP, T7, LIPID #### [facility] [address] [address] [address] Danay De Los Santos LIPID PROFILEon 12-15-2022 CHOL-HDL RATIO NORM SEE BELOW Normal [facility] Comment on above: Result Comment: 3.3 - 4.4 LOW RISK 4.4 - 7.1 AVERAGE RISK 7.1 - 11.0 MODERATE RISK >11.0 HIGH RISK Performed By: #### T SH, CMP, T7, LIPID #### [facility] [address] [address] [address] Danay De Los Santos Cholesterol [Mass/Vol] 123 mg/dL Normal <=200 [facility] Comment on above: Performed By: #### T SH, CMP, T7, LIPID #### [facility] [address] [address] [address] Danay De Los Santos Cholesterol in HDL [Mass/Vol] 40 mg/dL Normal 40-60 [facility] Comment on above: Performed By: #### T SH, CMP, T7, LIPID #### [facility] [address] [address] [address] Danay De Los Santos Cholesterol in LDL [Mass/Vol] 70.4 mg/dL Normal [facility] Comment on above: Performed By: #### T SH, CMP, T7, LIPID #### [facility] [address] [address] [address] Danay De Los Santos Cholesterol.total/Cho lesterol in HDL [Mass ratio] 3.1 {ratio} Normal [facility] Comment on above: Performed By: #### T SH, CMP, T7, LIPID #### [facility] [address] [address] [address] Danay De Los Santos HDL NORMAL > or = 60 mg/dl - LO W CARDIOVASCULAR RISK <40 mg/dl - HIGH CARDIOVASCULAR RISK Normal [facility] Comment on above: Performed By: #### T SH, CMP, T7, LIPID #### [facility] [address] [address] [address] Danay De Los Santos LDL CALC NORMAL SEE BELOW Normal [facility] Comment on above: Result Comment: <100 mg/dl OPTIMAL 100 - 129 mg/dl NEAR OR ABOVE OPTIMAL 130 - 159 mg/dl BORDERLINE HIGH 160 - 189 mg/dl HIGH >190 mg/dl VERY HIGH Performed By: #### T SH, CMP, T7, LIPID #### [facility] [address] [address] [address] Danay De Los Santos Triglyceride [Mass/Vol] 63 mg/dL Normal <=150 [facility] Comment on above: Performed By: #### T SH, CMP, T7, LIPID #### [facility] [address] [address] [address] Danay De Los Santos VLDL CALC 12.6 mg/dL Normal [facility] Comment on above: Performed By: #### T SH, CMP, T7, LIPID #### [facility] [address] [address] [address] Danay De Los Santos PROF 14(COMP METB)on 023 Albumin [Mass/Vol] 3.3 g/dL Critically low 3.4-5.0 [facility] Comment on above: Performed By: #### T SH, CMP, T7, LIPID #### [facility] [address] [address] [address] Danay De Los Santos Albumin/Globulin [Mass ratio] 1.0 {ratio} Normal [facility] Comment on above: Performed By: #### T SH, CMP, T7, LIPID #### [facility] [address] [address] [address] Danay De Los Santos ALP [Catalytic activity/Vol] 94 U/L Normal 46-116 [facility] Comment on above: Performed By: #### T SH, CMP, T7, LIPID #### [facility] [address] [address] [address] Danay De Los Santos ALT [Catalytic activity/Vol] 17 U/L Normal 14-59 [facility] Comment on above: Performed By: #### T SH, CMP, T7, LIPID #### [facility] [address] [address] [address] Danay De Los Santos Anion gap [Moles/Vol] 14.3 mmol/L Normal [facility] Comment on above: Performed By: #### T SH, CMP, T7, LIPID #### [facility] [address] [place] [address] Dr. Danay De Los Santos AST [Catalytic activity/Vol] 11 U/L Critically low 15-37 [facility] Comment on above: Performed By: #### T SH, CMP, T7, LIPID #### [facility] [address] [place] [address] Dr. Danay De Los Santos Bilirubin [Mass/Vol] 0.3 mg/dL Normal 0.2-1.0 [facility] Comment on above: Performed By: #### T SH, CMP, T7, LIPID #### [facility] [address] [place] [address] Dr. Danay De Los Santos Calcium [Mass/Vol] 9.1 mg/dL Normal 8.5-10.1 [facility] Comment on above: Performed By: #### T SH, CMP, T7, LIPID #### [facility] [address] [place] [address] Dr. Danay De Los Santos Chloride [Moles/Vol] 105 mmol/L Normal 98-107 [facility] Comment on above: Performed By: #### T SH, CMP, T7, LIPID #### [facility] [address] [place] [address] Dr. Danay De Los Santos CO2 [Moles/Vol] 29.3 mmol/L Normal 21.0-32.0 [facility] Comment on above: Performed By: #### T SH, CMP, T7, LIPID #### [facility] [address] [place] [address] Dr. Danay De Los Santos Creatinine [Mass/Vol] 1.53 mg/dL Critically high 0.55-1.02 [facility] Comment on above: Performed By: #### T SH, CMP, T7, LIPID #### [facility] [address] [place] [address] Dr. Danay De Los Santos EGFR-AF SAUDI ARABIAN 41 mL/min/1.73m2 Critically low >=60 [facility] Comment on above: Performed By: #### T SH, CMP, T7, LIPID #### [facility] [address] [address] [address] Danay De Los Santos EGFR-NON AF SAUDI ARABIAN 34 mL/min/1.73m2 Critically low >=60 [facility] Comment on above: Performed By: #### T SH, CMP, T7, LIPID #### [facility] [address] [address] [address] Danay De Los Santos Globulin (S) [Mass/Vol] 3.4 g/dL Normal [facility] Comment on above: Performed By: #### T SH, CMP, T7, LIPID #### [facility] [address] [address] [address] Danay De Los Santos Glucose [Mass/Vol] 192 mg/dL Critically high 74-106 [facility] Comment on above: Performed By: #### T SH, CMP, T7, LIPID #### [facility] [address] [address] [address] Danay De Los Santos Potassium [Moles/Vol] 4.6 mmol/L Normal 3.5-5.1 [facility] Comment on above: Performed By: #### T SH, CMP, T7, LIPID #### [facility] [address] [place] [address] Dr. Danay De Los Santos Protein [Mass/Vol] 6.7 g/dL Normal 6.4-8.2 [facility] Comment on above: Performed By: #### T SH, CMP, T7, LIPID #### [facility] [address] [address] [address] Danay De Los Santos Sodium [Moles/Vol] 144 mmol/L Normal 136-145 [facility] Comment on above: Performed By: #### T SH, CMP, T7, LIPID #### [facility] [address] [address] [address] Danay De Los Santos Urea nitrogen [Mass/Vol] 25.0 mg/dL Critically high 7.0-18.0 [facility] Comment on above: Performed By: #### T SH, CMP, T7, LIPID #### [facility] [address] [address] [address] Danay De Los Santos Urea nitrogen/Creatinine [Mass ratio] 16.3 mg/mg Normal [facility] Comment on above: Performed By: #### T SH, CMP, T7, LIPID #### [facility] [address] [address] [address] Danay De Los Santos TSHon 12-15-2022 TSH 2.181 uIU/mL Normal 0.358-3.740 [facility] Comment on above: Performed By: #### T SH, CMP, T7, LIPID #### [facility] [address] [address] [address] Danay De Los Santos VITAMIN D 25 OHon 12-15-2022 VIT D 25-OH 32.9 ng/mL Normal [facility] Comment on above: Performed By: #### T SH, CMP, T7, LIPID #### [facility] [address] [address] [address] Danay De Los Santos VIT D RANGES SEE BELOW Normal [facility] Comment on above: Result Comment: <20 ng/mL Vit D deficient 20 - <30 ng/mL Vit D insufficient 30 - 100 ng/mL Vit D sufficient >100 ng/mL Potential Toxicity Performed By: #### T SH, CMP, T7, LIPID #### [facility] [address] [address] [address] Danay De Los Santos US ROEL [...] by: MORIAH MORRISON Date: 2022-12-01 12:54 Normal [facility] XR Hand Complete Left*on XR Hand Complete Left* CLINICAL HISTORY: Fall with left hand stiffness. COMPARISON: None. RESULT: No distinct acute fracture. No dislocation. Underlying decreased bone mineral density. Mild to moderate scattered degenerative changes. Soft tissue edema. IMPRESSION: No acute osseous findings radiographically. Report reported and signed by Home Lockwood on 08/24/[address] [facility] XR Spine Cervical Complete*o n 08-24-2022 XR [...] by Home Lockwood on 08/24/[address] [facility] XR HAND RIMA MIN 3Von 023 XR HAND RIMA MIN 3V EXAM: XR HAND RIMA IA N 3V HISTORY: Pain following fall COMPARISON: None. TECHNIQUE: 3 views of each hand FINDINGS: No visualized fracture, dislocation, subluxation or osseous lesion. Age-related joint space changes. No gross visualized soft tissue edema. IMPRESSION: No visualized abnormality Electronically authenticated by: BRIANNA KU Date: 2022-08-06 20:28 Normal [facility] XR HIP RT 2 3V W [...] by: BRIANNA KU Date: 2022-08-06 20:29 Normal [facility] XR SHOULDER RT 2V or >on [...] by: BRIANNA KU Date: 2022-08-06 20:21 Normal [facility] XR Foot Complete Left*on XR Foot Complete Left* COMPARISON: None available HISTORY: Second and third digit pain after a fall TECHNIQUE: AP, lateral and oblique views of the foot obtained. FINDINGS: No acute fracture or dislocation. Joint spaces are preserved. Soft tissues are within normal limits. IMPRESSION: No acute osseous abnormality. Report reported and signed by Drew Looney on 08/04/2022 1044 Normal [facility] [employer] [place] XR Knee Complete Left*on XR Knee Complete [...] by Drew Looney on 08/04/[address] [facility] EXAMINATION: MRI BRA IN [facility], 07/02/2022 1:55 PM EST HISTORY: Headache COMPARISON: [...] BRIANNA GREEN Date: 2022-07-02 14:48 Normal [facility] INSULINon 05-28-2022 Insulin 13.4 uIU/mL Normal 2.6-24.9 [facility] Comment on above: Performed By: #### I NSULIN #### [facility] [address] [place] [address] Dr. Danay De Los Santos CBC AUTO DIFFon 05-26-2022 BASO # 0.1 103/ul Normal 0.0-0.1 [facility] Comment on above: Performed By: #### C BC #### [facility] [address] [place] [address] Dr. Danay De Los Santos Basophils/100 WBC (Bld) 0.8 % Normal 0.2-2.0 [facility] Comment on above: Performed By: #### C BC #### [facility] [address] [place] [address] Dr. Danay De Los Santos EO # 0.6 103/ul Normal 0.0-0.7 [facility] Comment on above: Performed By: #### C BC #### [facility] [address] [place] [address] Dr. Danay De Los Santos Eosinophils/100 WBC (Bld) 5.1 % Normal 0.9-7.0 [facility] Comment on above: Performed By: #### C BC #### [facility] [address] [place] [address] Dr. Danay De Los Santos Erythrocyte distribution width (RBC) [Ratio] 14.7 % Normal 11.0-15.0 [facility] Comment on above: Performed By: #### C BC #### [facility] [address] [place] [address] Dr. Danay De Los Santos Hematocrit (Bld) [Volume fraction] 37.8 % Normal 36.0-48.0 [facility] Comment on above: Performed By: #### C BC #### [facility] [address] [place] [address] Dr. Danay De Los Santos Hemoglobin (Bld) [Mass/Vol] 12.3 g/dL Normal 12.0-16.0 [facility] Comment on above: Performed By: #### C BC #### [facility] [address] [address] [address] Danay De Los Santos IG # 0.05 10e3/ul Critically high 0.00-0.03 [facility] Comment on above: Performed By: #### C BC #### [facility] [address] [address] [address] Danay De Los Santos IG % 0.5 % Normal 0.0-0.5 [facility] Comment on above: Performed By: #### C BC #### [facility] [address] [place] [address] Dr. Danay De Los Santos LYMPH # 2.1 103/ul Normal 1.2-3.8 [facility] Comment on above: Performed By: #### C BC #### [facility] [address] [place] [address] Dr. Danay De Los Santos Lymphocytes/100 WBC (Bld) 19.1 % Critically low 20.5-60.0 [facility] Comment on above: Performed By: #### C BC #### [facility] [address] [place] [address] Dr. Danay De Los Santos MANUAL DIFF REQ NO Normal [facility] Comment on above: Performed By: #### C BC #### [facility] [address] [place] [address] Dr. Danay De Los Santos MCH (RBC) [Entitic mass] 30.8 pg Normal 26.7-34.0 [facility] Comment on above: Performed By: #### C BC #### [facility] [address] [place] [address] Dr. Danay De Los Santos MCHC (RBC) [Mass/Vol] 32.5 g/dL Normal 29.9-35.2 [facility] Comment on above: Performed By: #### C BC #### [facility] [address] [place] [address] Dr. Danay De Los Santos MCV (RBC) [Entitic vol] 94.5 fL Normal 81.0-99.0 [facility] Comment on above: Performed By: #### C BC #### [facility] [address] [place] [address] Dr. Danay De Los Santos MONO # 0.6 103/ul Normal 0.3-0.8 [facility] Comment on above: Performed By: #### C BC #### [facility] [address] [place] [address] Dr. Danay De Los Santos Monocytes/100 WBC (Bld) 5.1 % Normal 1.7-12.0 [facility] Comment on above: Performed By: #### C BC #### [facility] [address] [place] [address] Dr. Danay De Los Santos NEUT # 7.5 103/ul Critically high 1.4-6.5 [facility] Comment on above: Performed By: #### C BC #### [facility] [address] [place] [address] Dr. Danay De Los Santos Neutrophils/100 WBC (Bld) 69.4 % Normal 43.0-75.0 [facility] Comment on above: Performed By: #### C BC #### [facility] [address] [place] [address] Dr. Danay De Los Santos Platelet mean volume (Bld) [Entitic vol] 10.9 fL Normal 9.5-13.5 [facility] Comment on above: Performed By: #### C BC #### [facility] [address] [place] [address] Dr. Danay De Los Santos PLT 235 103/ul Normal 150-450 [facility] Comment on above: Performed By: #### C BC #### [facility] [address] [place] [address] Dr. Danay De Los Santos RBC 4.00 106/ul Critically low 4.20-5.40 [facility] Comment on above: Performed By: #### C BC #### [facility] [address] [place] [address] Dr. Danay De Los Santos WBC 10.8 103/ul Normal 4.0-11.0 [facility] Comment on above: Performed By: #### C BC #### [facility] [address] [address] [address] Danay De Los Santos FREE THYROXINE INDEX T7on FTI 1.83 Normal 1.30-4.50 [facility] Comment on above: Performed By: #### T SH, CMP, T7, LIPID #### [facility] [address] [address] [address] Danay De Los Santos T3U 31.0 % Normal 30.0-39.0 [facility] Comment on above: Performed By: #### T SH, CMP, T7, LIPID #### [facility] [address] [address] [address] Danay De Los Santos T4 [Mass/Vol] 5.90 ug/dL Normal 4.80-13.90 [facility] Comment on above: Performed By: #### T SH, CMP, T7, LIPID #### [facility] [address] [place] [address] Dr. Danay De Los Santos GLYCOHEMOGLOBIN A1Con 2021 ADA RECOMMENDATION SEE BELOW Normal [facility] Comment on above: Result Comment: ADA RECOMMENDED LIMIT 4.0 - 6.0 ADA THERAPEUTIC TARGET < 7.0 ACTION SUGGESTED > 7.0 Performed By: #### A 1C #### [facility] [address] [place] [address] Dr. Danay De Los Santos Glucose [Mass/Vol] 186 mg/dL Normal [facility] Comment on above: Performed By: #### A 1C #### [facility] [address] [place] [address] Dr. Danay De Los Santos HbA1c (Bld) [Mass fraction] 8.1 % Critically high 4.5-6.2 [facility] Comment on above: Performed By: #### A 1C #### [facility] [address] [place] [address] Dr. Danay De Los Santos IRONon 05-26-2022 Iron [Mass/Vol] 61.0 ug/dL Normal 50.0-170.0 [facility] Comment on above: Performed By: #### T SH, CMP, T7, LIPID #### [facility] [address] [place] [address] Dr. Danay De Los Santos LIPID PROFILEon 05-26-2022 CHOL-HDL RATIO NORM SEE BELOW Normal [facility] Comment on above: Result Comment: 3.3 - 4.4 LOW RISK 4.4 - 7.1 AVERAGE RISK 7.1 - 11.0 MODERATE RISK >11.0 HIGH RISK Performed By: #### T SH, CMP, T7, LIPID #### [facility] [address] [address] [address] Danay De Los Santos Cholesterol [Mass/Vol] 130 mg/dL Normal <=200 [facility] Comment on above: Performed By: #### T SH, CMP, T7, LIPID #### [facility] [address] [address] [address] Danay De Los Santos Cholesterol in HDL [Mass/Vol] 40 mg/dL Normal 40-60 [facility] Comment on above: Performed By: #### T SH, CMP, T7, LIPID #### [facility] [address] [address] [address] Danay De Los Santos Cholesterol in LDL [Mass/Vol] 75.8 mg/dL Normal [facility] Comment on above: Performed By: #### T SH, CMP, T7, LIPID #### [facility] [address] [address] [address] Danay De Los Santos Cholesterol.total/Cho lesterol in HDL [Mass ratio] 3.3 {ratio} Normal [facility] Comment on above: Performed By: #### T SH, CMP, T7, LIPID #### [facility] [address] [address] [address] Danay De Los aSntos HDL NORMAL > or = 60 mg/dl - LO W CARDIOVASCULAR RISK <40 mg/dl - HIGH CARDIOVASCULAR RISK Normal [facility] Comment on above: Performed By: #### T SH, CMP, T7, LIPID #### [facility] [address] [address] [address] Danay De Los Santos LDL CALC NORMAL SEE BELOW Normal [facility] Comment on above: Result Comment: <100 mg/dl OPTIMAL 100 - 129 mg/dl NEAR OR ABOVE OPTIMAL 130 - 159 mg/dl BORDERLINE HIGH 160 - 189 mg/dl HIGH >190 mg/dl VERY HIGH Performed By: #### T SH, CMP, T7, LIPID #### [facility] [address] [place] [address] Dr. Danay De Los Santos Triglyceride [Mass/Vol] 71 mg/dL Normal <=150 [facility] Comment on above: Performed By: #### T SH, CMP, T7, LIPID #### [facility] [address] [place] [address] Dr. Danay De Los Santos VLDL CALC 14.2 mg/dL Normal [facility] Comment on above: Performed By: #### T SH, CMP, T7, LIPID #### [facility] [address] [place] [address] Dr. Danay De Los Santos PROF 14(COMP METB)on 022 Albumin [Mass/Vol] 3.4 g/dL Normal 3.4-5.0 [facility] Comment on above: Performed By: #### T SH, CMP, T7, LIPID #### [facility] [address] [place] [address] Dr. Danay De Los Santos Albumin/Globulin [Mass ratio] 1.0 {ratio} Normal [facility] Comment on above: Performed By: #### T SH, CMP, T7, LIPID #### [facility] [address] [place] [address] Dr. Danay De Los Santos ALP [Catalytic activity/Vol] 92 U/L Normal 46-116 [facility] Comment on above: Performed By: #### T SH, CMP, T7, LIPID #### [facility] [address] [place] [address] Dr. Danay De Los Santos ALT [Catalytic activity/Vol] 15 U/L Normal 14-59 [facility] Comment on above: Performed By: #### T SH, CMP, T7, LIPID #### [facility] [address] [place] [address] Dr. Danay De Los Santos Anion gap [Moles/Vol] 10.4 mmol/L Normal [facility] Comment on above: Performed By: #### T SH, CMP, T7, LIPID #### [facility] [address] [place] [address] Dr. Danay De Los Santos AST [Catalytic activity/Vol] 12 U/L Critically low 15-37 [facility] Comment on above: Performed By: #### T SH, CMP, T7, LIPID #### [facility] [address] [address] [address] Danay De Los Santos Bilirubin [Mass/Vol] 0.4 mg/dL Normal 0.2-1.0 [facility] Comment on above: Performed By: #### T SH, CMP, T7, LIPID #### [facility] [address] [address] [address] Danay De Los Santos Calcium [Mass/Vol] 8.7 mg/dL Normal 8.5-10.1 [facility] Comment on above: Performed By: #### T SH, CMP, T7, LIPID #### [facility] [address] [place] [address] Dr. Danay De Los Santos Chloride [Moles/Vol] 107 mmol/L Normal 98-107 [facility] Comment on above: Performed By: #### T SH, CMP, T7, LIPID #### [facility] [address] [place] [address] Dr. Danay De Los Santos CO2 [Moles/Vol] 28.9 mmol/L Normal 21.0-32.0 [facility] Comment on above: Performed By: #### T SH, CMP, T7, LIPID #### [facility] [address] [address] [address] Danay De Los Santos Creatinine [Mass/Vol] 1.18 mg/dL Critically high 0.55-1.02 [facility] Comment on above: Performed By: #### T SH, CMP, T7, LIPID #### [facility] [address] [place] [address] Dr. Danay De Los Santos EGFR-AF SAUDI ARABIAN 55 mL/min/1.73m2 Critically low >=60 [facility] Comment on above: Performed By: #### T SH, CMP, T7, LIPID #### [facility] [address] [address] [address] Danay De Los Santos EGFR-NON AF SAUDI ARABIAN 46 mL/min/1.73m2 Critically low >=60 [facility] Comment on above: Performed By: #### T SH, CMP, T7, LIPID #### [facility] [address] [address] [address] Danay De Los Santos Globulin (S) [Mass/Vol] 3.3 g/dL Normal [facility] Comment on above: Performed By: #### T SH, CMP, T7, LIPID #### [facility] [address] [address] [address] Danay De Los Santos Glucose [Mass/Vol] 153 mg/dL Critically high 74-106 [facility] Comment on above: Performed By: #### T SH, CMP, T7, LIPID #### [facility] [address] [place] [address] Dr. Danay De Los Santos Potassium [Moles/Vol] 4.3 mmol/L Normal 3.5-5.1 [facility] Comment on above: Performed By: #### T SH, CMP, T7, LIPID #### [facility] [address] [place] [address] Dr. Danay De Los Santos Protein [Mass/Vol] 6.7 g/dL Normal 6.4-8.2 [facility] Comment on above: Performed By: #### T SH, CMP, T7, LIPID #### [facility] [address] [place] [address] Dr. Danay De Los Santos Sodium [Moles/Vol] 142 mmol/L Normal 136-145 [facility] Comment on above: Performed By: #### T SH, CMP, T7, LIPID #### [facility] [address] [address] [address] Danay De Los Santos Urea nitrogen [Mass/Vol] 16.0 mg/dL Normal 7.0-18.0 [facility] Comment on above: Performed By: #### T SH, CMP, T7, LIPID #### [facility] [address] [place] [address] Dr. Danay De Los Santos Urea nitrogen/Creatinine [Mass ratio] 13.6 mg/mg Normal [facility] Comment on above: Performed By: #### T SH, CMP, T7, LIPID #### [facility] [address] [place] [address] Dr. Danay De Los Santos TSHon 05-26-2022 TSH 1.443 uIU/mL Normal 0.358-3.740 [facility] Comment on above: Performed By: #### T SADAF, CMP, T7, LIPID #### [facility] [address] [address] [address] Danay De Los Santos XR DEXA [...] High Fracture Risk Electronically authenticated by: BECKY AVILEZ Date: 2022-04-05 12:11 Normal [facility] GLYCOHEMOGLOBIN A1Con 2021 ADA RECOMMENDATION SEE BELOW Normal [facility] Comment on above: Result Comment: ADA RECOMMENDED LIMIT 4.0 - 6.0 ADA THERAPEUTIC TARGET < 7.0 ACTION SUGGESTED > 7.0 Performed By: #### T SADAF, CMP, T7, LIPID #### [facility] [address] [address] [address] Danay De Los Santos Glucose [Mass/Vol] 174 mg/dL Normal [facility] Comment on above: Performed By: #### T SADAF, CMP, T7, LIPID #### [facility] [address] [address] [address] Danay De Los Santos HbA1c (Bld) [Mass fraction] 7.7 % Critically high 4.5-6.2 [facility] Comment on above: Performed By: #### T SADAF, CMP, T7, LIPID #### [facility] [address] [address] [address] Danay De Los Santos MG MAMM SCREEN 3D RIMA CADon 02-14-2022 MG MAMM SCREEN 3D RIMA CAD Patient: VIRGEN GONZALES Exam Date: 02/14/2022 : 1955 Gender:F Ordering : [facility] Admission #: [id number] Family : Order #: [id number] CLICK HERE TO VIEW EXAM RADIOLOGY REPORT [...] unknown cancer at age 24. LOCATION: [facility] BREAST COMPOSITION: Heterogeneously dense,which may obscure [...] LUMP SHOULD BE BIOPSIED. Dictated by: Becky Avilez M.D. on 02/14/2022 at 16:09 Approved by: Becky Avilez M.D. on 02/14/2022 at 16:12 Normal [facility] CARDIAC STRESS/REST INJE CTIONon 01-27-2020 [facility] CARDIAC STRESS/REST INJECTION Patient Name: VIRGEN GONZALES STUDY: MYOCARDIAL PERFUSION STRESS TEST WITH LEXISCAN Performing facility: [facility], [address] [place] [address], [address], [place] [address] [facility] Provider: Catarino Koroma MD, FACC PCP: Dr. Nicola Granger Supervising provider: Catarino Koroma MD, FACC INDICATION: Abnormal EKG; Pre-operative risk assessment for Knee surgery scheduled at unknown on unknown. RBBB HISTORY: Gender: F; Age: 64 y/o ; Height: 152.4 cm; Weight: 77.9088437 kg. High Cholesterol; Abnormal EKG; Diabetes; Family HX CAD; HTN; Smoking COMPARISON: No comparison. ACCESSION NUMBER(S): [id number]; [id number]; [id number] ORDERING CLINICIAN: CATARINO KOROMA TECHNIQUE: ONE DAY protocol. Stress injection: Date:01/27/2020, [...] available for comparison. Electronically signed by: CATARINO KOROMA MD Normal [facility] Vital Signs Date Time Vital Sign Value Performing Clinician Facility 07-07-2024 21:52-0500 Body temperature 97.88 [degF] Tiny Fallon [facility] 07-07-2024 21:52-0500 Diastolic blood pressure 76 mm[Hg] Kaylinn Dokken [facility] 07-07-2024 21:52-0500 Heart rate 72 /min Kaylinn Dok[facility] 07-07-2024 21:52-0500 Mean blood pressure 86 mm[Hg] Kaylinn Dokken [facility] 07-07-2024 21:52-0500 Respiratory rate 19 /min Kaylinn D[facility] 07-07-2024 21:52-0500 SaO2% (BldA) [Mass fraction] 95 % Kaylinn Dokken [facility] 07-07-2024 21:52-0500 Systolic blood pressure 105 mm[Hg] Kaylinn Dokken [facility] 07-07-2024 20:57-0500 Diastolic blood pressure 77 mm[Hg] Kaylinn Dokken [facility] 07-07-2024 20:57-0500 Heart rate 61 /min Kaylinn D[facility] 07-07-2024 20:57-0500 Mean blood pressure 102 mm[Hg] Kaylinn Dokken [facility] 07-07-2024 20:57-0500 Respiratory rate 18 /min Kaylinn D[facility] 07-07-2024 20:57-0500 SaO2% (BldA) [Mass fraction] 96 % Kaylinn Dokken [facility] 07-07-2024 20:57-0500 Systolic blood pressure 153 mm[Hg] Kaylinn Dokken [facility] 07-07-2024 19:33-0500 Diastolic blood pressure 89 mm[Hg] Kaylinn Dokken [facility] 07-07-2024 19:33-0500 Heart rate 60 /min Kaylinn D[facility] 07-07-2024 19:33-0500 Mean blood pressure 108 mm[Hg] Kaylinn Dokken [facility] 07-07-2024 19:33-0500 Respiratory rate 19 /min Kaylinn D[facility] 07-07-2024 19:33-0500 SaO2% (BldA) [Mass fraction] 95 % Kaylinn Dokken [facility] 07-07-2024 19:33-0500 Systolic blood pressure 146 mm[Hg] Kaylinn Dokken [facility] 07-07-2024 19:20-0500 Body temperature 98.06 [degF] Kaylinn Dokken [facility] 07-07-2024 18:33-0500 Body temperature 98.24 [degF] Kaylinn Dokken [facility] 07-07-2024 18:33-0500 Heart rate 73 /min Kaylinn D[facility] 07-07-2024 18:33-0500 Respiratory rate 18 /min Kaylinn Dok[facility] 07-07-2024 18:19-0500 gluc 142 mg/dL Kaylinn Dok[facility] 07-07-2024 18:18-0500 Heart rate 73 /min Tiny Dourielen [facility] 07-07-2024 18:18-0500 Respiratory rate 18 /min Jamalylinn Dokken [facility] 05-18-2024 10:53-0400 Body height 152.4 cm Da Biedenbach DO Work Phone: [facility] 05-18-2024 10:53-0400 Body mass index (BMI) [Ratio] 38.08 kg/m2 Da Biedenbach DO Work Phone: [facility] 05-18-2024 10:53-0400 Body weight 88.45 kg Da Biedenbach DO Work Phone: [facility] 04-13-2024 11:09-0400 Body height 152.4 cm Da Biedenbach DO Work Phone: [facility] 04-13-2024 11:09-0400 Body mass index (BMI) [Ratio] 38.08 kg/m2 Da Biedenbach DO Work Phone: [facility] 04-13-2024 11:09-0400 Body weight 88.45 kg Da Biedenbach DO Work Phone: [facility] 04-10-2024 09:25-0400 Body height 149.9 cm Ad Biedenbach DO Work Phone: [facility] 04-10-2024 09:25-0400 Body mass index (BMI) [Ratio] 39.39 kg/m2 Da Biedenbach DO Work Phone: [facility] 04-10-2024 09:25-0400 Body weight 88.45 kg Da Biedenbach DO Work Phone: [facility] 03-26-2024 11:11-0400 Body height 152.4 cm Da Biedenbach DO Work Phone: [facility] 03-26-2024 11:11-0400 Body mass index (BMI) [Ratio] 38.08 kg/m2 Da Phillip DO Work Phone: [facility] 03-26-2024 11:11-0400 Body weight 88.45 kg Da Phillip DO Work Phone: [facility] 08-27-2023 15:38-0500 Body height 149.9 cm Brice Estrella DO Work Phone: [facility] 08-27-2023 15:38-0500 Body mass index (BMI) [Ratio] 39.59 kg/m2 Brice Estrella DO Work Phone: [facility] 08-27-2023 15:38-0500 Body temperature 97.39 [degF] Brice Estrella DO Work Phone: [facility] 08-27-2023 15:38-0500 Body weight 88.91 kg Brice Estrella DO Work Phone: [facility] 06-07-2023 08:27-0500 Heart rate 77 /min Brice Estrella [facility] 06-07-2023 08:27-0500 SaO2% (BldA) [Mass fraction] 98 % Brice Estrella [facility] 06-07-2023 08:26-0500 Respiratory rate 20 /min Brice Estrella [facility] 06-07-2023 08:26-0500 Blood Pressure Location Brice Estrella [facility] 06-07-2023 08:26-0500 Diastolic blood pressure 64 mm[Hg] Bricelaura Estrella [facility] 06-07-2023 08:26-0500 Mean blood pressure 77 mm[Hg] Bricelaura Estrella [facility] 06-07-2023 08:26-0500 Systolic blood pressure 102 mm[Hg] Brice Estrella [facility] 06-07-2023 08:25-0500 Body temperature 97.88 [degF] Brice Estrella [facility] 06-07-2023 08:05-0500 Blood Pressure Location Brice Estrella [facility] 06-07-2023 08:05-0500 Diastolic blood pressure 59 mm[Hg] Brice Estrella [facility] 06-07-2023 08:05-0500 Heart rate 73 /min Brice Estrella [facility] 06-07-2023 08:05-0500 Respiratory rate 20 /min Brice Estrella [facility] 06-07-2023 08:05-0500 SaO2% (BldA) [Mass fraction] 95 % Brice Estrella [facility] 06-07-2023 08:05-0500 Systolic blood pressure 114 mm[Hg] Brice Estrella [facility] 06-07-2023 07:30-0500 Blood Pressure Location Brice Estrella [facility] 06-07-2023 07:30-0500 Diastolic blood pressure 70 mm[Hg] Brice Estrella [facility] 06-07-2023 07:30-0500 Heart rate 70 /min Brice Estrella [facility] 06-07-2023 07:30-0500 Respiratory rate 20 /min Brice Estrella [facility] 06-07-2023 07:30-0500 SaO2% (BldA) [Mass fraction] 96 % Brice Estrella [facility] 06-07-2023 07:30-0500 Systolic blood pressure 114 mm[Hg] Brice Estrella [facility] 06-07-2023 06:52-0500 Mean blood pressure 76 mm[Hg] Brice Estrella [facility] 06-07-2023 06:49-0500 Body temperature 97.88 [degF] Brice Estrella [facility] 06-07-2023 06:49-0500 Mean blood pressure 79 mm[Hg] Brice Estrella [facility] Encounters Encounter Date Encounter Type Care Provider Facility Start: 07-07-2024 End: 07-07-2024 Emergency department patient visit Tiny Fallon [facility] Start: 05-18-2024 End: 05-18-2024 ambulatory DA PHILLIP Not Available Start: 05-18-2024 End: 05-18-2024 Office outpatient visit 15 minutes Da Phillip DO Work Phone: [facility] Comment on above: Nontoxic multinodula r goiter (CMS/HCC) (Primary Dx); Thyroid nodule (CMS/HCC); Hearing loss, unspecified hearing loss type, unspecified laterality Start: 05-04-2024 End: 05-04-2024 Bamboo flowsheet Da Phillip DO Work Phone: [facility] Start: 05-04-2024 End: 05-04-2024 Bamboo flowsheet Da Phillip DO Work Phone: [facility] Start: 04-13-2024 End: 04-13-2024 Bamboo flowsheet Da Phillip DO Work Phone: [facility] Start: 04-13-2024 End: 04-13-2024 Bamboo flowsheet Da Phillip DO Work Phone: [facility] [place] Start: 04-13-2024 End: 04-13-2024 Departed Referred CALL MANAGER-Hilda Davis Work Phone: [facility] [place] Work Phone: Start: 04-13-2024 End: 04-13-2024 ambulatory CALL MANAGER-C Aggie Davis Work Phone: [facility] Work Phone: Start: 04-13-2024 End: 04-13-2024 Office outpatient visit 25 minutes Da Phillip DO Work Phone: [facility] [place] Comment on above: Nontoxic multinodula r goiter (CMS/HCC) (Primary Dx); Thyroid nodule (CMS/HCC) Start: 04-10-2024 End: 04-10-2024 Bamboo flowsheet Da Saeededenmaicol DO Work Phone: [facility] [place] Start: 04-10-2024 End: 04-10-2024 Bamboo flowsheet Da Rubio Biedenbach DO Work Phone: [facility] [place] Start: 04-10-2024 End: 04-10-2024 Office outpatient visit 25 minutes Da Jacintoenmaicol DO Work Phone: [facility] [place] Comment on above: Thyroid nodule (CMS/ HCC) (Primary Dx); Nontoxic multinodular goiter (CMS/HCC) Start: 04-10-2024 End: 04-10-2024 ambulatory DA PHILLIP Not Available Start: 03-26-2024 End: 03-26-2024 Bamboo flowsheet Da Saeededenbach DO Work Phone: [facility] [place] Start: 03-26-2024 End: 03-26-2024 Bamboo flowsheet Da Rubio Biedenbach DO Work Phone: [facility] [place] Start: 03-26-2024 End: 03-26-2024 Patient encounter procedure CALL MANAGER-Hilda Davis Work Phone: [facility] [place] Work Phone: Start: 03-26-2024 End: 03-26-2024 ambulatory CALL MANAGER-C Aggie Davis Work Phone: [facility] Work Phone: Start: 03-26-2024 End: 03-26-2024 Office outpatient new 45 minutes Da Phillip DO Work Phone: [facility] Comment on above: Thyroid nodule (CMS/ HCC) (Primary Dx); Nontoxic multinodular goiter (CMS/HCC); Thyroid dysfunction (CMS/HCC) Start: 03-26-2024 End: 03-26-2024 ambulatory DA PHILLIP Not Available Start: 02-14-2024 End: 02-14-2024 ambulatory CALL MANAGER-C Aggie Davis Work Phone: [facility] Work Phone: Start: 02-14-2024 End: 02-14-2024 Departed Referred CALL MANAGER-C Aggie Davis Work Phone: [facility] Start: 01-25-2024 Non-patient / Non-visit CALL MANAGER-C Keke Davis [facility] Work Phone: Start: 12-31-2023 End: 12-31-2023 ambulatory BRICE ESTRELLA Not Available Start: 11-11-2023 End: 02-26-2024 ambulatory Brice Estrella Facility:[facility] Start: 10-29-2023 End: 10-29-2023 ambulatory BRICE ESTRELLA Not Available Start: 10-08-2023 End: 10-08-2023 ambulatory BRICE ESTRELLA Not Available Start: 2023 Chart abstracting Brice brantley DO Work Phone: [facility] Start: 08-27-2023 End: 08-27-2023 Patient encounter procedure Brice Estrella DO Work Phone: [facility] Comment on above: Left knee pain, unsp ecified chronicity (Primary Dx) Start: 08-27-2023 End: 08-27-2023 ambulatory BRICE ESTRELLA Not Available Start: 08-22-2023 End: 08-22-2023 ambulatory CALL MANAGER-C Aggie Isabel Susan Work Phone: [facility] Work Phone: Start: 08-22-2023 End: 08-22-2023 Discharged Recurring CALL MANAGER-C Aggie Susan Work Phone: [facility] Medication Technician [address] Start: 08-06-2023 End: 08-06-2023 ambulatory BRICE ESTRELLA Not Available Start: 07-23-2023 End: 07-23-2023 ambulatory BRICE ESTRELLA Not Available Start: 07-16-2023 End: 07-16-2023 ambulatory BRICE ESTRELLA Not Available Start: 06-18-2023 End: 06-18-2023 ambulatory BRICE ESTRELLA Not Available Start: 06-07-2023 End: 06-07-2023 Admission to same day surgery center Brice Estrella [facility] Start: 12-26-2022 ambulatory AGGIE SUSAN Facility: H1 [...] SUSAN Facility:H1 Start: 04-05-2022 End: 04-06-2022 ambulatory AGGIE SUSAN Facility:H1 Start: 03-25-2022 ambulatory AGGIE SUSAN Facility: H1 Start: 03-15-2022 End: 03-16-2022 ambulatory AGGIE [facility] Facility:H1 Start: 02-14-2022 End: 02-15-2022 ambulatory AGGIE [facility] Facility:H1 Start: 11-09-2021 End: 11-09-2021 Patient encounter procedure Michele Jane [facility] Procedures Date Procedure Procedure Detail Performing [...] Michele perez Release of trigger finger Emilee reynaldo Mourany right carpel tunnel Michele dill right knee arthroscopy x2 Emilee reynaldo Mourany Plan of Treatment Date Care Activity Detail Author Start: 06-01-2025 Pneumococcal Vaccine : 65+ Years (3 - PPSV23 or PCV20) Pneumococcal Vaccine: 65+ Years (3 - PPSV23 or PCV20) [facility] Start: 06-01-2025 Pneumococcal Vaccine : 65+ Years (3 of 3 - PPSV23 or PCV20) Pneumococcal Vaccine: 65+ Years (3 of 3 - PPSV23 or PCV20) [facility] Start: 11-09-2024 End: 11-09-2024 Patient encounter procedure 11/09/2024 10:00 AM EDT Office Visit [facility] [address] [place] [address] Da Phillip, DO [address] [place] [address] [facility] Start: 07-27-2024 End: 07-27-2024 Patient encounter procedure 07/27/2024 1:00 PM EST Office Visit [facility] [address] [place] [address] Chana Iglesias, AUD [address] [place] [address] [facility] Start: 05-04-2024 End: 05-04-2024 Patient encounter procedure 05/04/2024 10:15 AM EDT Office Visit [facility] [address] [place] [address] Da Phillip, DO [address] [place] [address] Arrived [facility] Comment on above: Arrived Start: 04-13-2024 End: 04-13-2024 Patient encounter procedure 04/13/2024 11:00 AM EDT Office Visit [facility] [address] [place] [address] Da Phillip, DO [address] [place] [address] [facility] Start: 04-10-2024 End: 04-10-2024 Patient encounter procedure [facility] Comment on above: Arrived Start: 03-29-2024 Influenza vaccination Influenza Vacc ine (#1) [facility] Start: 03-26-2024 End: 03-26-2025 Thyrotropin [Units/volume] in Serum or Plasma [facility] Comment on above: Expected: 03/26/2024 (Approximate), Expires: 03/26/2025 Start: 03-26-2024 End: 03-26-2025 Triiodothyronine (T3) [Mass/volume] in Serum or Plasma T3 Lab Routine Thyroid nodule (CMS/HCC) Expected: 03/26/2024 (Approximate), Expires: 03/26/2025 [facility] Work Phone: Comment on above: Expected: 03/26/2024 (Approximate), Expires: 03/26/2025 Start: 03-26-2024 End: 03-26-2024 Patient encounter procedure 03/26/2024 11:00 AM EDT Office Visit [facility] [place] [address] [place] [address] Da Phillip DO [address] [place] [address] Arrived [facility] Comment on above: Arrived Start: 10-08-2023 End: 10-08-2023 Patient encounter procedure 10/08/2023 10:00 AM EDT Office Visit [facility] [address] [place] [place] [id number] Brice Estrella DO [address] [place] [address] [facility] Start: 07-29-2023 Pneumococcal Vaccine : 65+ Years (3 of 3 - PPSV23 or PCV20) Pneumococcal Vaccine: 65+ Years (3 of 3 - PPSV23 or PCV20) [facility] Start: 1994 Screening for malign ant neoplasm of breast Mammogram [facility] Start: 1973 Urine screening for protein Diabetes: Urine Protein Screening [facility] Start: 1964 Glaucoma screening Diabetes: R etinopathy Screening [facility] Start: 1954 Hemoglobin A1c measurement Joan betes: Hemoglobin A1C [facility] Start: 1954 Medicare Annual Well ness (AWV) Medicare Annual Wellness (AWV) [facility] Start: 1954 Screening for malign ant neoplasm of colon [facility] Immunizations Immunization Date Immunization Notes Care Provider Fa loli 12-27-2023 zoster vaccine recombinant Da Phillip DO Work Phone: [facility] 06-30-2023 Influenza, High-dose Seasonal, Quadrivalent, Preservative Free Da Phillip DO Work Phone: [facility] 06-30-2023 influenza virus vaccine, unspecified formulation Da Phillip DO Work Phone: [facility] 10-30-2022 Influenza, High-dose Seasonal, Quadrivalent, Preservative Free Da Phillip DO Work Phone: [facility] 05-31-2022 Influenza, Seasonal, Quadrivalent, Adjuvanted Da Phillip DO Work Phone: [facility] 11-14-2020 SARS-CoV-2 (COVID-19 ) mRNA-[address] [facility] 06-01-2020 pneumococcal conjuga te vaccine, 13 valent Da Phillip DO Work Phone: [facility] 06-01-2020 Seasonal trivalent influenza vaccine, adjuvanted, preservative free Da Phillip DO Work Phone: [facility] 04-28-2019 influenza, seasonal, injectable Da Phillip DO Work Phone: [facility] 07-29-2018 pneumococcal polysaccharide vaccine, 23 valent Da Phillip DO Work Phone: [facility] 04-18-2018 tetanus toxoid, redu soledad diphtheria toxoid, and acellular pertussis vaccine, adsorbed CALL MANAGER-C Aggie Davis Work Phone: [facility] Payers Date Payer Category Payer Self-pay [id number] 2022 Unknown LAMIN Nunes O [id number] 2022-Present [address] [place] [address] [id number] [id number] 2022 Medicare HUMANA MEDICARE ADVANTAGE HU[employer]NA MEDICARE [id number] 2022-Present [address] [address] [place] [address] [id number] 2.7.3.472347.315 2022 Medicare (Managed Care) HU[employer]NA EDICARE ADVANTAGE [id number] 1959 Medicare [id number] 1959 Unknown [id number] 1954 Unknown [id number] 2.16.840.1.129724.3.579. 2.593 1954 Unknown [id number] 2.16.840.1.400515.3.579. 2.593 1954 Unknown [id number] 2.16.840.1.148149.3.579. 2.593 1954 Unknown [id number] 2.16.840.1.628062.3.579. 2.593 1954 Unknown [id number] 2.16.840.1.876965.3.579. 2.593 1954 Unknown [id number] 2.16.840.1.784880.3.579. 2.593 1954 Unknown [id number] 2.16.840.1.050970.3.579. 2.593 1954 Unknown [id number] 2.16.840.1.737415.3.579. 2.593 1954 Unknown [id number] 2.16.840.1.983654.3.579. 2.593 1954 Unknown [id number] 2.16.840.1.698229.3.579. 2.593 1954 Unknown [id number] 2.16.840.1.101974.3.579. 2.593 1954 Unknown [id number] 2.16.840.1.412741.3.579. 2.593 1954 Unknown [id number] 2.16.840.1.488210.3.579. 2.125 1954 Unknown [id number] 2.16.840.1.479099.3.579. 2.1259 1954 Unknown [id number] 2.16.840.1.206820.3.579. 2.125 1954 Unknown [id number] 2.16.840.1.304809.3.579. 2.1259 1954 Unknown [id number] 2.16.840.1.331677.3.579. 2.1259 1954 Unknown [id number] 2.16.840.1.454257.3.579. 2.125 1954 Unknown [id number] 2.16.840.1.679620.3.579. 2.1259 1954 Unknown [id number] 2.16.840.1.162489.3.579. 2.1259 1955 Unknown [id number] 2.16.840.1.726388.3.579. 2.1258 1954 Unknown [id number] 2.16.840.1.893334.3.579. 2.1258 1954 Unknown [id number] 2.16.840.1.005064.3.579. 2.1258 1954 Unknown [id number] 2.16.840.1.605730.3.579. 2.1258 1954 Unknown [id number] 2.16.840.1.836540.3.579. 2.1258 1954 Unknown [id number] 2.16.840.1.452703.3.579. 2.1258 1954 Unknown [id number] 2.16.840.1.088660.3.579. 2.1258 1954 Unknown [id number] 2.16.840.1.315177.3.579. 2.1258 1954 Unknown [id number] 2.16.840.1.873227.3.579. 2.1258 1954 Unknown [id number] 2.16.840.1.597997.3.579. 2.1258 1954 Unknown [id number] 2.16.840.1.489345.3.579. 2.1258 1954 Unknown [id number] 2.16.840.1.308510.3.579. 2.1258 1954 Unknown [id number] 2.16.840.1.888287.3.579. 2.1258 1954 Unknown [id number] 2.16.840.1.506384.3.579. 2.1258 1954 Unknown [id number] 2.16.840.1.504748.3.579. 2.1258 1954 Unknown [id number] 2.16.840.1.511856.3.579. 2.1259 1954 Unknown [id number] 2.16.840.1.587151.3.579. 2.1258 1954 Unknown [id number] 2.16.840.1.415039.3.579. 2.1258 1954 Unknown [id number] 2.16.840.1.236141.3.579. 2.1258 1954 Unknown [id number] 2.16.840.1.618918.3.579. 2.1258 1954 Unknown [id number] 2.16.840.1.850106.3.579. 2.1258 1954 Unknown [id number] 2.16.840.1.944533.3.579. 2.1258 1954 Unknown [id number] 2.16.840.1.761866.3.579. 2.72 1954 Unknown [id number] 2.16.840.1.588355.3.579. 2.72 1954 Unknown [id number] 2.16.840.1.335945.3.579. 2. 1954 Unknown [id number] 2.16.840.1.847662.3.579. 2.72 1954 Unknown [id number] 2.16.840.1.189073.3.579. 2. 1954 Unknown [id number] 2.16.840.1.982930.3.579. 2.72 Unknown [employer] BC/BS [id number] Unknown Regular Auto/Medical [id number] Unknown [id number] 2.16.840.1.596729.3.579. 2.531 Unknown [id number] 2.16.840.1.264051.3.579. 2.531 Unknown [id number] 2.16.840.1.502494.3.579. 2.531 Unknown [id number] 2.16.840.1.328121.3.579. 2.531 Social History Date Type Detail Facility Tobacco Cigarettes [facility] Comment on above: 05/30 pkg daily Start: 08-27-2023 End: 03-26-2024 Sex Assigned At Female [facility] Tobacco smoking status No Smoking Status Entered [facility] Start: 05-07-2023 Tobacco smoking status AZIS Smokes tobacco daily [facility] History of tobacco use Cigarette Smoker [facility] Start: 05-07-2023 Tobacco use and exposure Smokeless tobacco non-user [facility] Start: 08-27-2023 End: 03-26-2024 Alcohol intake Lifetime non-drinker (finding) [facility] Start: 08-27-2023 End: 03-26-2024 History of Social function [facility] Start: 05-07-2023 Alcohol Comment caffeine intak e: more than 4 cups per day of coffee, pop, tea [facility] Start: 1955 Sex Assigned At Not on file [facility] Start: 04-12-2023 Tobacco smoking status NHIS Smoker (finding) [facility] Start: 1955 Sex Assigned At Female F [facility] Medical Equipment Procedure Code Equipment Code Equipment Origin al Text Equipment Identifier Dates [id number] Start: 04-05-2023 TEST BLOOD SUGAR THREE TIMES DAILY for 90 [id number] Blood Sugar Diagnostic (Onetouch Ultra Test) strip Start: 10-02-2017 End: 01-06-2020 Blood Sugar Diagnostic (Onetouch Ultra Test) strip Start: 10-02-2017 End: 01-06-2020 Blood Sugar Diagnostic (Onetouch Ultra Test) strip Start: 10-02-2017 End: 01-06-2020 Blood Sugar Diagnostic (Onetouch Ultra Test) strip Start: 10-02-2017 End: 01-06-2020 Functional Status Date Assessment Result Facility 07-07-2024 Functional Status N/A [facility] 06-07-2023 Functional Status N/A [facility] Clinical Notes 03-16-2022 to 07-08-2024 Da Phillip, DO - 05/18/2024 10:45 AM EDTPaul Ramiro Phillip, DO - 04/13/2024 11:00 AM EDTPaul Ramiro Phillip, DO - 04/10/2024 9:15 AM EDTPaul Ramiro Phillip, DO - 03/26/2024 11:00 AM EDT Note Date & Type Note Facility 07-08-2024 Hospital Discharge instructions Patient Education 07/07/2024 22:29:17 Urinary Tract Infection, Adult, Jfrx-et-Siwg Urinary Tract Infection, Adult A urinary tract infection (UTI) is an infection of any part of the urinary tract. The urinary tract includes: The kidneys. The ureters. The bladder. The urethra. These organs make, store, and get rid of pee (urine) in the body. What are the causes? This infection is caused by germs (bacteria) in your genital area. These germs grow and cause swelling (inflammation) of your urinary tract. What increases the risk? The following factors may make you more likely to develop this condition: Using a small, thin tube (catheter) to drain pee. Not being able to control when you pee or poop (incontinence). Being female. If you are female, these things can increase the risk: ?Using these methods to prevent : ?A medicine that kills sperm (spermicide). ?A device that blocks sperm (diaphragm). ?Having low levels of a female hormone (estrogen). ?Being . You are more likely to develop this condition if: You have genes that add to your risk. You are sexually active. You take antibiotic medicines. You have trouble peeing because of: ?A prostate that is bigger than normal, if you are male. ?A blockage in the part of your body that drains pee from the bladder. ?A kidney stone. ?A nerve condition that affects your bladder. ?Not getting enough to drink. ?Not peeing often enough. You have other conditions, such as: ?Diabetes. ?A weak disease-fighting system (immune system). ?Sickle cell disease. ?Gout. ?Injury of the spine. What are the signs or symptoms? Symptoms of this condition include: Needing to pee right away. Peeing small amounts often. Pain or burning when peeing. Blood in the pee. Pee that smells bad or not like normal. Trouble peeing. Pee that is cloudy. Fluid coming from the vagina, if you are female. Pain in the belly or lower back. Other symptoms include: Vomiting. Not feeling hungry. Feeling mixed up (confused). This may be the first symptom in older adults. Being tired and grouchy (irritable). A fever. Watery poop (diarrhea). How is this treated? Taking antibiotic medicine. Taking other medicines. Drinking enough water. In some cases, you may need to see a specialist. Follow these instructions at home: Medicines Take lpmo-omn-cqdgobd and prescription medicines only as told by your doctor. If you were prescribed an antibiotic medicine, take it as told by your doctor. Do not stop taking it even if you start to feel better. General instructions Make sure you: ?Pee until your bladder is empty. ?Do not hold pee for a long time. ?Empty your bladder after sex. ?Wipe from front to back after peeing or pooping if you are a female. Use each tissue one time when you wipe. Drink enough fluid to keep your pee pale yellow. Keep all follow-up visits. Contact a doctor if: You do not get better after 1 2 days. Your symptoms go away and then come back. Get help right away if: You have very bad back pain. You have very bad pain in your lower belly. You have a fever. You have chills. You feeling like you will vomit or you vomit. Summary A urinary tract infection (UTI) is an infection of any part of the urinary tract. This condition is caused by germs in your genital area. There are many risk factors for a UTI. Treatment includes antibiotic medicines. Drink enough fluid to keep your pee pale yellow. This information is not intended to replace advice given to you by your health care provider. Make sure you discuss any questions you have with your health care provider. Document Revised: 02/19/2021 Document Reviewed: 02/24/2021 [employer] Patient Education 2023 [employer]. 07/07/2024 22:29:17 Syncope, Adult, Dswz-dg-Nezk Syncope, Adult Syncope is when you pass out or faint for a short time. It is caused by a sudden decrease in blood flow to the brain. This can happen for many reasons. It can sometimes happen when seeing blood, getting a shot (injection), or having pain or strong emotions. Most causes of fainting are not dangerous, but in some cases it can be a sign of a serious medical problem. If you faint, get help right away. Call your local emergency services (911 in the [place] Follow these instructions at home: Watch for any changes in your symptoms. Take these actions to stay safe and help with your symptoms: Knowing when you may be about to faint Signs that you may be about to faint include: ?Feeling dizzy or light-headed. It may feel like the room is spinning. ?Feeling weak. ?Feeling like you may vomit (nauseous). ?Seeing spots or seeing all white or all black. ?Having cold, clammy skin. ?Feeling warm and sweaty. ?Hearing ringing in the ears. If you start to feel like you might faint, sit or lie down right away. If sitting, lower your head down between your legs. If lying down, raise (elevate) your feet above the level of your heart. ?Breathe deeply and steadily. Wait until all of the symptoms are gone. ?Have someone stay with you until you feel better. Medicines Take ftbw-fsf-knaparq and prescription medicines only as told by your doctor. If you are taking blood pressure or heart medicine, sit up and stand up slowly. Spend a few minutes getting ready to sit and then stand. This can help you feel less dizzy. Lifestyle Do not drive, use machinery, or play sports until your doctor says it is okay. Do not drink alcohol. Do not smoke or use any products that contain nicotine or tobacco. If you need help quitting, ask your doctor. Avoid hot tubs and saunas. General instructions Talk with your doctor about your symptoms. You may need to have testing to help find the cause. Drink enough fluid to keep your pee (urine) pale yellow. Avoid standing for a long time. If you must stand for a long time, do movements such as: ?Moving your legs. ?Crossing your legs. ?Flexing and stretching your leg muscles. ?Squatting. Keep all follow-up visits. Contact a doctor if: You have episodes of near fainting. Get help right away if: You pass out or faint. You hit your head or are injured after fainting. You have any of these symptoms: ?Fast or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 availableProm[facility] Work Phone: Evaluation note* Diagnosis Nontoxic multinodular goiter (CMS/HCC)- Primary Nontoxic multinodular goiter Thyroid nodule (CMS/HCC) Nontoxic uninodular goiter Hearing loss, unspecified hearing loss type, unspecified laterality documented in this encounter [facility] HealthcareEvaluation note* Diagnosis Thyroid nodule (CMS/HCC)- Primary Nontoxic uninodular goiter Nontoxic multinodular goiter (CMS/HCC) Nontoxic multinodular goiter documented in this encounter [facility] HealthcareEvaluation note* Diagnosis Nontoxic multinodular goiter (CMS/HCC)- Primary Nontoxic multinodular goiter Thyroid nodule (CMS/HCC) Nontoxic uninodular goiter documented in this encounter [facility] HealthcareEvaluation note* Diagnosis Thyroid nodule (CMS/HCC)- Primary Nontoxic uninodular goiter Nontoxic multinodular goiter (CMS/HCC) Nontoxic multinodular goiter Thyroid dysfunction (CMS/HCC) Unspecified disorder of thyroid documented in this encounter [facility] HealthcareHospital Discharge instructions No data available for this section [facility] No data available for this section [facility] Summary Purpose Family History Relationship Condition [...] chronicity Procedures L Inj/Asp: L knee Brice Estrella, DO [address] [place] [address] Referral ID Status Reason Start Date Expiration Date Visits Re quested Visits Authorized [id number] Closed 08/27/2023 02/23/2024 1 1 Chief Complaint and Reason for Visit Chief Complaint L hand Chief Complaint Unknown Chief Complaint Unknown E04.1 Chief Complaint Unknown E04.1 Right thyroid nodule, nodule thyroid isthmus Additional Source Comments INFORMATION SOURCE (unrecogn ized section and content) DATE CREATED AUTHOR 03/11/2020 [facility] DATE CREATED AUTHOR AUTHOR'S ORGANIZ ATION 08/25/2022 [facility] dical Specialist DATE CREATED AUTHOR AUTHOR'S ORGANIZ ATION 01/04/2023 [facility] pital DATE CREATED AUTHOR AUTHOR'S ORGANIZ ATION 05/12/2024 [facility] DATE CREATED AUTHOR AUTHOR'S ORGANIZ ATION 05/19/2024 [facility] d[facility] Specialists EPIC DATE CREATED AUTHOR AUTHOR'S ORGANIZ ATION [facility] DATE CREATED AUTHOR AUTHOR'S ORGANIZ ATION 07/12/2024 [facility] Patient Care team informatio n (unrecognized section and content) Team Status: Active Member Role Status Dates AVIVA Dey Primary Care Provider Active Team Status: Active [...] March 26, 2024 End: March 26, 2024 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 Start Date End Date Unallocated, [place] Provider [address] [place] [address] PCP - General 12/18/22 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 Start Date End Date Unallocated, [place] Provider [address] [facility] [address] PCP - General 12/18/22 Team Status: Inactive Member Role Status Dates Aggie Davis NP-C Primary Care Provider Active Start: August 22, 2023 End: August 22, 2023 Brice Estrella DO Attending Provider Active Sta rt: August 22, 2023 End: August 22, 2023 Team Status: Inactive Member Role Status Dates Da Phillip DO Attending Provider Active S tart: April 13, 2024 End: April 13, 2024 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 Start Date End Date Carter Granger MD [address] [place] [phone] PCP - General Family Medicine 04/10/24 Aggie Davis MD [address] [place] [phone] Referring Physician Family Medicine 04/10/24 Da Phillip DO [address] [place] [address] Otolaryngology 04/10/24 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 Start Date End Date Carter Granger MD [address] [place] [phone] PCP - General Family Medicine 04/10/24 Aggie Davis MD [address] [place] [phone] Referring Physician Family Medicine 04/10/24 Da Phillip DO [address] [place] [address] Otolaryngology 04/10/24 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 Start Date End Date Carter Granger MD [address] [place] [phone] PCP - General Family Medicine 04/10/24 Aggie Davis MD [address] [place] [phone] Referring Physician Family Medicine 04/10/24 Da Phillip DO [address] [place] [address] Otolaryngology 04/10/24 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 Start Date End Date Carter Granger MD [address] [place] [phone] PCP - General Family Medicine 04/10/24 Aggie Davis MD [address] [place] [phone] Referring Physician Family Medicine 04/10/24 Da Phillip DO [address] [place] [address] Otolaryngology 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/24 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 Start Date End Date Carter Granger MD [address] [place] [phone] PCP - General Family Medicine 04/10/24 Aggie Davis MD [address] [place] [phone] Referring Physician Family Medicine 04/10/24 Da Phillip DO [address] [place] [address] Otolaryngology 04/10/24 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 Start Date End Date Unallocated, [place] MD Too [address] [place] [address] [place] [address] PCP - General 12/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 [facility]. provides no warranty or guarantee of the accuracy or completeness of information in this document.
[2024-07-17 11:34] LABS: Alanine Aminotransferase 17 U/L (14-59); Albumin Globulin Ratio 0.9; Albumin Level 3.1 g/dL (3.4-5.0); Alkaline Phosphatase 120 U/L (46-116); Anion Gap 9.1; Aspartate Amino Transferase 12 U/L (15-37); BUN Creatinine Ratio 14.2; Bilirubin Total 0.3 mg/dL (0.2-1.0); Calcium 8.9 mg/dL (8.5-10.1); Carbon Dioxide 31.5 mmol/L (21.0-32.0); Chloride 107 mmol/L (98-107); Estimated GFR (African America 25 (>=60 mL/min/1.73m^2); Estimated GFR (Non-African Ame 21 (>=60 mL/min/1.73m^2); Free T3 1.81 pg/mL (2.18-3.98); Globulin 3.3 g/dL; Glucose 159 mg/dL (74-106); Potassium 4.6 mmol/L (3.5-5.1); Sodium 143 mmol/L (136-145); Thyroid Stimulating Hormone 2.954 uIU/mL (0.358-3.740); Total Protein 6.4 g/dL (6.4-8.2)
== END 2024-07-17 10:02 | disposition home or self-care (01) ==
LOC: RAD 10:01
PROVIDERS: PCP Nurse Practitioner Family; Visit Provider Nurse Practitioner Family
DX: M81.0 Age-related osteoporosis without current pathological fracture (principal); N18.32 Chronic kidney disease, stage 3b; E04.1 Nontoxic single thyroid nodule; M85.80 Other specified disorders of bone density and structure, unspecified site; I12.9 Hypertensive chronic kidney disease with stage 1 through stage 4 chronic kidney disease, or unspecified chronic kidney disease
CPT/HCPCS: 36415; 77080; 80053; 84436; 84443; 84481

== ENCOUNTER 2024-08-12 06:38 | Outpatient (OUT) | payer MEDICARE, SELFPAY ==
--- NOTE | 2024-08-12 | PCN_ITS ---
CARDIAC STRESS TEST Requesting Physician: Procedure Date: 08/12/2024 This was a Lexiscan stress test with myocardial perfusion imaging performed at the [facility] on 08/12/2024. Informed consent was obtained. The patient was attached to electrocardiographic monitoring and vital signs were obtained. An intravenous line was secured. Lexiscan 0.4 mg was infused slowly, followed by administration of Cardiolite. The patient then went on to obtain myocardial perfusion imaging. Resting heart rate was 83 BPM and maximum heart rate was 129 BPM. Resting blood pressure was 128/86, and maximum blood pressure was 158/94. Resting ECG showed sinus rhythm with right bundle branch block but no ischemic ST changes. ECG following infusion of Lexiscan showed sinus tachycardia without ischemic ST changes. There were no arrhythmias seen. Note that the patient developed shortness of breath after infusion of Lexiscan and was given aminophylline 50 mg at the end of the test. SUMMARY OF THE FINDINGS: 1. No evidence of ischemic ECG changes following infusion of Lexiscan. 2. Myocardial perfusion imaging will be reported separately. SHARA
--- OUTSIDE RECORDS SUMMARY | 2024-08-12 06:41 | XMS_ITS | CCD ---
Author Organization [facility] Team Providers Care Senior Salesforce Developer Name Role Phone AGGIE FU Primary Care Physician AGGIE DAVIS Attending Unavailable SUSAN, AGGIE Primary Care Unavailable SUSAN, AGGIE Admitting Unavailable ZIEBBAKARI, DR BECKY Morelos Consulting Unavailable SUSAN, AGGIE Consulting Unavailable SUSAN, AGGIE Attending Unavailable SUSAN, AGGIE Primary Care Unavailable SUSAN, AGGIE Admitting Unavailable RAGHAV, DR BECKY Morelos Consulting Unavailable SUSAN, AGGIE Consulting Unavailable SUSAN, AGGIE Attending Unavailable SUSAN, AGIGE Primary Care Unavailable SHABBIREBER, DR BECKY Morelos [...] Admitting Unavailable AGGIE DAVIS Primary Care Physician [phone] Unallocated, [place] Provider Primary Care Provider ROMEO Davis-Hilda Marcial Isabel Primary Care Provider [phone] DO Brice Estrella Attending Provider [phone] ROMEO Davis-Hilda Aggie Isabel Primary Care Provider [phone] ROMEO Davis-Hilda Hall Attending Provider [phone] DO Da Phillip Attending Provider Susan WRAY, Aggie Unavailable Carter Granger MD Primary Care Provider Da Phillip DO S Unavailable DELORES, BRICE A Attending Unavailable BROWN, BRICE A Referring Unavailable BROWN, BRICE A Attending Unavailable BROWN, BRICE A Attending Unavailable BROWN, BRICE A Attending Unavailable BROWN, BRICE A Attending Unavailable BROWN, BRICE A Attending Unavailable BROWN, BRICE A Attending Unavailable BROWN, BRICE A Referring Unavailable BROWN, BRICE A Attending Unavailable BIEDENBACH, DA S Attending Unavailable KENJI, DA S Attending Unavailable AGGIE DAVIS Referring Unavailable KENJI, DA S Attending Unavailable BIEDENMAICOL, DA S Attending Unavailable BROWN, BRICE A Referring Unavailable Brown, Brice A Referring Unavailable Brown, Brice A Attending Unavailable DokkTiny moore A Attending Unavailable DoTiny renee Attending Unavailable Unallocated MD, Noms Provider Primary Care Provi neris Aggie Davis Primary Care Unavailable Delores, Brice A Admitting Unavailable Brown, Brice A Attending Unavailable Biedenmaicol, Da Admitting Unavailable Christopheedlexii, Da Attending Unavailable Kenji, Da Admitting Unavailable Kenji, Da Attending Unavailable Susan, Aggie Isabel Primary Care Unavailable Susan, Aggie Isabel Attending Unavailable Aggie Davis Admitting Unavailable Aggie Davis Primary Care Unavailable Allergies Allergy Classification Reported Allergen(s) Allergy Type Date of Onset Reaction(s) Facility (8 sources) Acetaminophen / HYDROcodone; Translations: [acetaminophen-hy drocodone] Drug Allergy itching , sick to stomach [facility] (8 sources) Acetaminophen / oxyCODONE; Translations: [acetaminophen-ox ycodone] Drug Allergy sleeps a long time [facility] (8 sources) acetaminophen / propoxyphene; Translations: [acetaminophen-pr opoxyphene] Drug Allergy Itching [facility] (20 sources) Codeine; Translations: [codeine] Drug Allergy 1 Rash [facility] (20 sources) Penicillins; Translations: [penicillins] Drug allergy 4 Difficulty breathing at rest, Hives [facility] (20 sources) Propoxyphene; Translations: [propoxyphene] Drug Allergy 7 Itching, Unknown [facility] (1 source) Propoxyphene Drug Allergy 4 [facility] (1 source) ZOLMitriptan Drug Allergy 4 [facility] (1 source) Darvocet-N 100 Drug allergy (disorder) 4 [facility] (14 sources) Acetaminophen / HYDROcodone Drug Allergy 5 Unknown [facility] (14 sources) Acetaminophen / oxyCODONE Drug Allergy 1 [facility] (18 sources) HYDROcodone Drug Allergy 1 Unknown [facility] (14 sources) traMADol Drug Allergy 1 [facility] (5 sources) Acetaminophen; Translations: [acetaminophen] Drug Allergy 3 Itching [facility] (5 sources) oxyCODONE; Translations: [oxycodone] Drug Allergy 3 Drowsy [facility] (5 sources) Penicillin; Translations: [penicillin G] Drug Allergy 3 welts itching [facility] (5 sources) ZOLMitriptan; Translations: [zolmitriptan] Drug Allergy 3 felt like I was on fire [facility] (1 source) Codeine Drug Allergy 3 [facility] (1 source) HYDROcodone Drug Allergy 3 [facility] (1 source) Propoxyphene Drug Allergy 3 [facility] Medications Current Medications Medication Drug Class(es) Dates Sig (Normalized) Sig (Original) [id number] 200 actuat albuterol 0.09 mg/actuat metered dose [...] q12hr, # 20 cap(s), Refills(s) 0, Pharmacy: [facility], 152, cm, 07/07/24 18:23:00 EST, [...] Pr opionate (Flonase Allergy Relief) 50 mcg/actuation [place],Suspension Active 1 SPRAY INTRANASAL As Directed February [...] g56.02, # 30 tab(s), Refills(s) 0, Pharmacy: [facility] #[id number], 152.4, cm, 06/07/23 6:59:00 EST, Height/Length Dosing [...] 50 tab(s), Refills(s) 0, [facility]: [id number], 152.4, cm, 06/07/23 6:59:00 EST, Height/Length Dosing [...] Onset: 07-07-2024 Episodic Thyroid disorders (17 sources) Non-toxic multinodular goiter; 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] Onset: 04-13-2024 05-18-2024 Chronic Urinary [...] Translations: [Mucopurulent chronic bronchitis] Onset: 4 Resolved: 03-25-2024 Chronic E Codes: Fall (1 source) [...] Locations R1: This test was performed at: [facility], [address] [place] [address], [id number] , [place], Normal [facility] Comment on above: Performed By: #### 2 [id number] #### [facility] [address] [place] [address] ED Note-Physicianon 07-09-20 ED Note-Physician ED Note-Physician [...] syncopal episode at work. Patient works at [employer] and states all of a sudden she [...] if appl (more content not included)... Normal [facility] Comment on above: Result Comment: Elec tronically Signed By: Kelly Smith PA-C\.br\Date and Time Signed: 07/08/24 02:10 EST\.br\Electronically Co-Signed By: Ean Azevedo M.D.\.br\Date and Time Co-Signed: 07/09/24 07:05 EST ABO/Rh History Checkon 07-08 ABO/Rh History Check Patient discharged prior Normal [facility] Comment on above: Performed By: #### 1 [id number] #### [facility] [address] [place] [address] CT Abdomen/Pelvis w/ Contras ton 07-08-2024 CT [...] 300 Contrast amount in ml's: 130 Normal [facility] CT Chest w/ Contraston 07-08 [...] as reasonably achievable. Report Ordering Provider: Kelly mSith FINAL REPORT Dictated: 07/08/2024 8:54 am Imer Montague MD Signed (Electronic Signature): 07/08/2024 8:54 am Signed by: Imer Montague MD Transcribed by: JOSH Technologist: YONIS Technical Comments GFR (mL/min/1/73m2) n/a-trauma Contrast: Isovue 300 Contrast amount in ml's: 130 Normal [facility] CT Head or Brain w/o [...] Signature): 07/08/2024 9:10 am Signed by: Imer Montague MD Transcribed by: JOSH Technologist: YONIS Normal [facility] CT Spine Cervical w/o Contra [...] at C4-C5 and C5-C6. Ordering Provider: Kelly Smith FINAL REPORT Dictated: 07/08/2024 9:24 am Home Lockwood MD Signed (Electronic Signature): 07/08/2024 9:24 am Signed by: Home Lockwood MD Transcribed by: JOSH Technologist: YONIS Normal [facility] ABO/Rhon 07-07-2024 ABO/Rh Positive Invalid Interpretation Code [facility] Comment on above: Performed By: #### 2 [id number] #### [facility] [address] [place] [address] ABSCon 07-07-2024 ABSC Gel Interp Negative Normal [facility] Comment on above: Performed By: #### 1 [id number] #### [facility] [address] [place] [address] B hCG Qualon 07-07-2024 Beta HCG ( test) Ql Negative Normal [facility] Comment on above: Performed By: #### 2 [id number] #### [facility] [address] [place] [address] BLOOD BANKOrdered By: Willard ahn Timo on 07-07-2024 ABO/Rh Interp Positive Invalid Interpretation Code [facility] [place] BB Subsection ABSC Gel Interp Negative (07/07/24 6:48 PM) Normal [facility] [place] BB Subsection BMPon 07-07-2024 Anion gap [Moles/Vol] 11 mmol/L Normal 6-16 [facility] Comment on above: Performed By: #### 2 [id number] #### [facility] [address] [place] [address] Calcium [Mass/Vol] 9.1 mg/dL Normal 8.9-11.1 [facility] Comment on above: Performed By: #### 2 [id number] #### [facility] [address] [place] [address] Chloride [Moles/Vol] 104 mmol/L Normal 101-111 [facility] Comment on above: Performed By: #### 2 [id number] #### [facility] [address] [place] [address] CO2 [Moles/Vol] 26 mmol/L Normal 21-31 [facility] Comment on above: Performed By: #### 2 [id number] #### [facility] [address] [place] [address] Creatinine [Mass/Vol] 1.8 mg/dL High 0.5-1.3 [facility] Comment on above: Performed By: #### 2 [id number] #### [facility] [address] [place] [address] Glucose [Mass/Vol] 154 mg/dL Normal 55-199 [facility] Comment on above: Performed By: #### 2 [id number] #### [facility] [address] [place] [address] Potassium [Moles/Vol] 3.6 mmol/L Normal 3.5-5.3 [facility] Comment on above: Performed By: #### 2 [id number] #### [facility] [address] [place] [address] Sodium [Moles/Vol] 137 mmol/L Normal 135-145 [facility] Comment on above: Performed By: #### 2 [id number] #### [facility] [address] [place] [address] Urea nitrogen [Mass/Vol] 23 mg/dL High - [facility] Comment on above: Performed By: #### 2 [id number] #### [facility] [address] [place] [address] Urea nitrogen/Creatinine [Mass ratio] 13 No Units Normal - [facility] Comment on above: Performed By: #### 2 [id number] #### [facility] [address] [place] [address] Blood Bank ID#on 07-07-2024 BBID# [id number] Invalid Interpretation Code [facility] Comment on above: Performed By: #### 1 [id number] #### [facility] [address] [place] [address] CBC w/ Auto Diffon 4 Basophils/100 WBC (Bld) 0.6 % Normal 0.0-2.0 [facility] Comment on above: Result Comment: Amy ection date/time has been modified to: 18:23:00. Previous collection date/time: 18:45:00. Performed By: #### 2 [id number] #### [facility] [address] [place] [address] Basophils/Leukocytes Auto (Bld) [Pure # fraction] 0.1 E9/L Normal 0.0-0.2 [facility] Comment on above: Result Comment: Amy ection date/time has been modified to: 18:23:00. Previous collection date/time: 18:45:00. Performed By: #### 2 [id number] #### [facility] [address] [place] [address] Eosinophils (Bld) [#/Vol] 0.3 E9/L Normal 0.0-0.5 [facility] Comment on above: Result Comment: Amy ection date/time has been modified to: 18:23:00. Previous collection date/time: 18:45:00. Performed By: #### 2 [id number] #### [facility] [address] [place] [address] Eosinophils/100 WBC (Bld) 3.1 % Normal 0.0-8.0 [facility] Comment on above: Result Comment: Amy ection date/time has been modified to: 18:23:00. Previous collection date/time: 18:45:00. Performed By: #### 2 [id number] #### [facility] [address] [place] [address] Erythrocyte distribution width (RBC) [Ratio] 15.1 % High 10.9-14.2 [facility] Comment on above: Result Comment: Amy ection date/time has been modified to: 18:23:00. Previous collection date/time: 18:45:00. Performed By: #### 2 [id number] #### [facility] [address] [place] [address] Hematocrit (Bld) [Volume fraction] 38.3 % Normal 34.0-46.0 [facility] Comment on above: Result Comment: Amy ection date/time has been modified to: 18:23:00. Previous collection date/time: 18:45:00. Performed By: #### 2 [id number] #### [facility] [address] [place] [address] Hemoglobin (Bld) [Mass/Vol] 12.7 g/dL Normal 12.0-16.0 [facility] Comment on above: Result Comment: Amy ection date/time has been modified to: 18:23:00. Previous collection date/time: 18:45:00. Performed By: #### 2 [id number] #### [facility] [address] [place] [address] Lymphocytes (Bld) [#/Vol] 2.4 E9/L Normal 1.0-4.0 [facility] Comment on above: Result Comment: Amy ection date/time has been modified to: 18:23:00. Previous collection date/time: 18:45:00. Performed By: #### 2 [id number] #### [facility] [address] [place] [address] Lymphocytes/100 WBC (Bld) 26.6 % Normal 14.0-50.0 [facility] Comment on above: Result Comment: Amy ection date/time has been modified to: 18:23:00. Previous collection date/time: 18:45:00. Performed By: #### 2 [id number] #### [facility] [address] [place] [address] MCH (RBC) [Entitic mass] 29.9 pg Normal 27.0-34.0 [facility] Comment on above: Result Comment: Amy ection date/time has been modified to: 18:23:00. Previous collection date/time: 18:45:00. Performed By: #### 2 [id number] #### [facility] [address] [place] [address] MCHC (RBC) [Mass/Vol] 33.1 g/dL Normal 31.4-36.0 [facility] Comment on above: Result Comment: Amy ection date/time has been modified to: 18:23:00. Previous collection date/time: 18:45:00. Performed By: #### 2 [id number] #### [facility] [address] [place] [address] MCV (RBC) [Entitic vol] 90.2 fL Normal 80.0-100.0 [facility] Comment on above: Result Comment: Amy ection date/time has been modified to: 18:23:00. Previous collection date/time: 18:45:00. Performed By: #### 2 [id number] #### [facility] [address] [place] [address] Monocytes (Bld) [#/Vol] 0.5 E9/L Normal 0.2-1.0 [facility] Comment on above: Result Comment: Amy ection date/time has been modified to: 18:23:00. Previous collection date/time: 18:45:00. Performed By: #### 2 [id number] #### [facility] [address] [place] [address] Neutrophils (Bld) [#/Vol] 5.8 E9/L Normal 2.0-7.5 [facility] Comment on above: Result Comment: Amy ection date/time has been modified to: 18:23:00. Previous collection date/time: 18:45:00. Performed By: #### 2 [id number] #### [facility] [address] [place] [address] Neutrophils/100 WBC (Bld) 64.2 % Normal 36.0-75.0 [facility] Comment on above: Result Comment: Amy ection date/time has been modified to: 18:23:00. Previous collection date/time: 18:45:00. Performed By: #### 2 [id number] #### [facility] [address] [place] [address] Platelet mean volume (Bld) [Entitic vol] 10.1 fL Normal 6.4-10.8 [facility] Comment on above: Result Comment: Amy ection date/time has been modified to: 18:23:00. Previous collection date/time: 18:45:00. Performed By: #### 2 [id number] #### [facility] [address] [place] [address] Platelets (Bld) [#/Vol] 183.0 E9/L Normal 150.0-500.0 [facility] Comment on above: Result Comment: Amy ection date/time has been modified to: 18:23:00. Previous collection date/time: 18:45:00. Performed By: #### 2 [id number] #### [facility] [address] [place] [address] RBC (Bld) [#/Vol] 4.2 E12/L Low 4.3-5.9 [facility] Comment on above: Result Comment: Amy ection date/time has been modified to: 18:23:00. Previous collection date/time: 18:45:00. Performed By: #### 2 [id number] #### [facility] [address] [place] [address] WBC corrected for nucl RBC Auto (Bld) [#/Vol] 9.1 E9/L Normal 4.0-11.0 [facility] Comment on above: Result Comment: Amy ection date/time has been modified to: 18:23:00. Previous collection date/time: 18:45:00. Performed By: #### 2 [id number] #### [facility] [address] [place] [address] Basophils/100 WBC (Bld) 0.6 % Normal 0.0-2.0 [facility] Comment on above: Performed By: #### 2 [id number] #### [facility] [address] [place] [address] Basophils/Leukocytes Auto (Bld) [Pure # fraction] 0.1 E9/L Normal 0.0-0.2 [facility] Comment on above: Performed By: #### 2 [id number] #### [facility] [address] [place] [address] Eosinophils (Bld) [#/Vol] 0.3 E9/L Normal 0.0-0.5 [facility] Comment on above: Performed By: #### 2 [id number] #### [facility] [address] [place] [address] Eosinophils/100 WBC (Bld) 3.1 % Normal 0.0-8.0 [facility] Comment on above: Performed By: #### 2 [id number] #### [facility] [address] [place] [address] Erythrocyte distribution width (RBC) [Ratio] 15.1 % High 10.9-14.2 [facility] Comment on above: Performed By: #### 2 [id number] #### [facility] [address] [place] [address] Hematocrit (Bld) [Volume fraction] 38.3 % Normal 34.0-46.0 [facility] Comment on above: Performed By: #### 2 [id number] #### [facility] [address] [place] [address] Hemoglobin (Bld) [Mass/Vol] 12.7 g/dL Normal 12.0-16.0 [facility] Comment on above: Performed By: #### 2 [id number] #### [facility] [address] [place] [address] Lymphocytes (Bld) [#/Vol] 2.4 E9/L Normal 1.0-4.0 [facility] Comment on above: Performed By: #### 2 890005 #### [facility] [address] [place] [address] Lymphocytes/100 WBC (Bld) 26.6 % Normal 14.0-50.0 [facility] Comment on above: Performed By: #### 2 [id number] #### [facility] [address] [place] [address] MCH (RBC) [Entitic mass] 29.9 pg Normal 27.0-34.0 [facility] Comment on above: Performed By: #### 2 [id number] #### [facility] [address] [place] [address] MCHC (RBC) [Mass/Vol] 33.1 g/dL Normal 31.4-36.0 [facility] Comment on above: Performed By: #### 2 920005 #### [facility] [address] [place] [address] MCV (RBC) [Entitic vol] 90.2 fL Normal 80.0-100.0 [facility] Comment on above: Performed By: #### 2 [id number] #### [facility] [address] [place] [address] Monocytes (Bld) [#/Vol] 0.5 E9/L Normal 0.2-1.0 [facility] Comment on above: Performed By: #### 2 [id number] #### [facility] [address] [place] [address] Neutrophils (Bld) [#/Vol] 5.8 E9/L Normal 2.0-7.5 [facility] Comment on above: Performed By: #### 2 [id number] #### [facility] [address] [place] [address] Neutrophils/100 WBC (Bld) 64.2 % Normal 36.0-75.0 [facility] Comment on above: Performed By: #### 2 [id number] #### [facility] [address] [place] [address] Platelet mean volume (Bld) [Entitic vol] 10.1 fL Normal 6.4-10.8 [facility] Comment on above: Performed By: #### 2 [id number] #### [facility] [address] [place] [address] Platelets (Bld) [#/Vol] 183.0 E9/L Normal 150.0-500.0 [facility] Comment on above: Performed By: #### 2 [id number] #### [facility] [address] [place] [address] RBC (Bld) [#/Vol] 4.2 E12/L Low 4.3-5.9 [facility] Comment on above: Performed By: #### 2 [id number] #### [facility] [address] [place] [address] WBC corrected for nucl RBC Auto (Bld) [#/Vol] 9.1 E9/L Normal 4.0-11.0 [facility] Comment on above: Performed By: #### 2 [id number] #### [facility] [address] [place] [address] CHEMISTRYOrdered By: SYSTEM SYSTEM on 07-07-2024 Amphetamines [...] Sensitivity Troponin I Instructions For Use, Lalito Torri, February 2018) Urea nitrogen [Mass/Vol] 23 mg/dL High 5 - 21 mg/dL Remisol Chem Urea nitrogen/Creatinine [Mass ratio] 13 mg/mg Normal 10 - 20 Remisol Chem CKon 07-07-2024 Total CK 149 Int._Unit/L Normal 14-[address] [facility] Comment on above: Performed By: #### 2 [id number] #### [facility] [address] [place] [address] COAGULATIONOrdered By: Leslie Chavez on 07-07-2024 aPTT Coag (PPP) [Time] 31.1 s Normal 25.1 - 36.5 second(s) [facility] [place] [place] Auto Coag Comment on above: Interpretive Data: P arameter 15 days - 4 weeks 1 - 5 months 6 - 11 months 1 - 5 years 6 - 10 years 11 - 17 years PTT Mean: 35.4 (27.6-45.6) Mean: 33.5 (24.8-40.7) Mean: 32.4 (25.1-40.7) Mean: 31.6 (24.0-39.2) Mean: 31.6 (26.9-38.7) Mean: 31.0 (24.6-38.4) Pediatric Reference ranges were obtained from a study by mehnaz Hernandez prepared from 1437 samples obtained at 7 different centers using the same coagulation reagent and instrumentation as [facility] [place] [place]. Currently there are no coagulation studies available worldwide for children to 14 days, and no normal ranges. Heparin therapeutic range (represented by Anti-Factor Xa activity of 0.2 - 0.4 U/mL) corresponds to PTT of 56.6 - 109.0 sec. INR Coag (PPP) [Relative time] 0.92 {INR} Invalid Interpretation Code [facility] [place] [place] Auto Coag Comment on above: Interpretive Data: I NR results are specifically intended to assess patients stabilized on long-term Anticoagulation therapy suggested INR s Less Intensive Anticoagulation 2.0 3.0 Conventional Range 3.0 4.5 PT Coag (PPP) [Time] 10.3 s Normal 9.4 - 1 2.5 second(s) [facility] [place] [place] Auto Coag Comment on above: Interpretive Data: 1 5 days - 4 weeks 1 - 5 months 6 -11 months 1-5 years 6-10 years 11 -17 years Mean: 11.2 (9.5-12.6) Mean: 11.0 (9.7-12.8) Mean: 11.0 (9.8-13.0) Mean: 11.3 (9.9-13.4) Mean: 11.7 (10.0-14.6) Mean: 11.8 (10.0 - 14.1) Pediatric Reference ranges were obtained from a study by mehnaz Hernandez prepared from 1437 samples obtained at 7 different centers using the same coagulation reagent and instrumentation as [facility] [place] [place]. Currently there are no coagulation studies available worldwide for children to 14 days, and no normal ranges. ED Clinical Summaryon 2023 ED Clinical Summary ED Clinical Summary [address] [id number] ED Clinical Summary Person Information Name: VIRGEN GONZALES [facility] Age: 68 Years : 1955 Sex: Female Language: Indonesian PCP: AGGIE DAVIS CNP Marital Status: Visit [...] 22:29:17 07/07/2024 22:29:17 ADDRESS: [id number] [place] [id number] PHYS DOC NOTES: MEDICAL INFORMATION: Prescriptions Given: New Medications [facility] 1987, [address] [place], [place] [id number], [phone] cephalexin (cephalexin 500 mg Cap) 1 Capsules [...] EDUCATION INFORMATION: Instructions: Urinary Tract Infection, Adult, Tilc-ad-Kmiv; Syncope, Adult, Scrq-sl-Yutr; Head Injury, Adult, Rfys-em-Oqou; Contusion, Bdsc-bj-Tffq Follow up: With: Address: When: AGGIE DAVIS [address] [phone] Business (more content not included)... Normal [facility] ED Patient Summaryon 024 ED Patient Summary ED Patient Summary [place] [id number] Patient Discharge Instructions Person Information Name: VIRGEN GONZALES Age: 68 Years Arrival Date: 07/07/2024 18:16:48 Discharge Diagnosis: 1:Contusion of occipital region of scalp; 2:Syncope and collapse; 3:Acute lower urinary tract infection Primary Care Physician: AGGIE DAVIS CNP Provider Information Primary Provider: Tiny Fallon DO Advanced Field Aide:None The exam and treatment you received in the Emergency Department were for an urgent problem and are not intended as complete care. It is important that you follow up with a doctor, nurse practitioner, or physician???s virtual office assistant for ongoing care. If your symptoms [...] Address: When: AGGIE [place] [place] [phone] Business (1) In 3 days 07/10/2024 In the event that this physician does not participate in your insurance network, please consult with your insurance company to find a nearby participating provider. Patient Education Materials: Urinary Tract Infection, Adult, Lsay-gh-Zigb; Syncope, Adult, Mrgb-uh-Qxin; Head Injury, Adult, Rawn-kv-Awlf; Contusion, Vwqi-vf-Zacm A MESSAGE TO ALL PATIENTS REGARDING OPIOIDS PRESCRIPTION OPIOIDS: WHAT YOU NEED TO KNOW Prescription opioids can be used to help relieve qbprgldb-no-tovmze pain and are often prescribed following a [...] (www.fda.gov/Drugs/Res ourcesFo (more content not included)... Normal [facility] Ethanolon 07-07-2024 Ethanol Lvl <10 Normal <=11 [facility] Comment on above: Performed By: #### 2 [id number] #### [facility] Laboratory [address] [place] [address] HEMATOLOGYOrdered By: SYSTEM SYSTEM on 07-07-2024 Basophils/100 [...] 07-07-2024 Albumin [Mass/Vol] 3.9 g/dL Normal 3.3-5.0 [facility] Comment on above: Performed By: #### 2 [id number] #### [facility] Laboratory [address] [place] [address] Albumin/Globulin (S) [Mass conc ratio] 1.4 Normal 1.1-2.2 [facility] Comment on above: Performed By: #### 2 [id number] #### [facility] Laboratory [address] [place] [address] ALP [Catalytic activity/Vol] 112 Int._Unit/L High 21-98 [facility] Comment on above: Performed By: #### 2 [id number] #### [facility] Laboratory [address] [place] [address] ALT No additional P-5'-P [Catalytic activity/Vol] 11 Int._Unit/L Normal 6-46 [facility] Comment on above: Performed By: #### 2 [id number] #### [facility] Laboratory [address] [place] [address] AST [Catalytic activity/Vol] 13 Int._Unit/L Normal 5-43 [facility] Comment on above: Performed By: #### 2 [id number] #### [facility] Laboratory [address] [place] [address] Bilirubin [Mass/Vol] 0.4 mg/dL Normal 0.0-1.1 [facility] Comment on above: Performed By: #### 2 [id number] #### [facility] Laboratory [address] [place] [address] Bilirubin.direct [Mass/Vol] 0.1 mg/dL Normal 0.0-0.4 [facility] Comment on above: Performed By: #### 2 [id number] #### [facility] Laboratory [address] [place] [address] Bilirubin.indirect [Mass or moles/Vol] 0.3 mg/dL Normal 0.1-0.9 [facility] Comment on above: Performed By: #### 2 [id number] #### [facility] Laboratory [address] [place] [address] Globulin (S) [Mass/Vol] 2.8 g/dL Normal 1.4-4.0 [facility] Comment on above: Performed By: #### 2 [id number] #### [facility] Laboratory [address] [place] [address] Protein [Mass/Vol] 6.7 g/dL Normal 6.0-7.8 [facility] Comment on above: Performed By: #### 2 [id number] #### [facility] Laboratory [address] [place] [address] Lactic Acidon 07-07-2024 Lactic Acid Lvl 0.9 mmol/L Normal 0.5-2.2 [facility] Comment on above: Performed By: #### 2 [id number] #### [facility] Laboratory [address] [place] [address] Lipase Levelon 07-07-2024 Lipase [Catalytic activity/Vol] 22 U/L Normal 13-58 [facility] Comment on above: Performed By: #### 2 [id number] #### [facility] Laboratory [address] [place] [address] Magnesiumon 07-07-2024 Magnesium [Mass/Vol] 2.2 mg/dL Normal 1.3-2.4 [facility] Comment on above: Performed By: #### 2 [id number] #### [facility] Laboratory [address] [place] [address] Myoglobinon 07-07-2024 Myoglobin [Mass/Vol] 128 ng/mL High <=69 [facility] Comment on above: Performed By: #### 2 [id number] #### [facility] Laboratory [address] [place] [address] PT & PTTon 07-07-2024 aPTT Coag (PPP) [Time] 31.1 second(s) Normal 25.1-36.5 [facility] [...] the same coagulation reagent and instrumentation as [facility] [place] [place]. Currently there are no coagulation studies available worldwide for children to 14 days, and no normal ranges. Heparin therapeutic range (represented by Anti-Factor Xa activity of 0.2 - 0.4 U/mL) corresponds to PTT of 56.6 - 109.0 sec. Performed By: #### 1 [id number] #### [facility] Laboratory [address] [place] [address] INR Coag (PPP) [Relative time] 0.92 {INR} Invalid Interpretation Code [facility] Comment on above: Result Comment: INR results are specifically intended to assess patients stabilized on long-term Anticoagulation therapy suggested INR???s ???Less Intensive Anticoagulation??? 2.0 ??? 3.0 Conventional Range 3.0 ??? 4.5 Performed By: #### 1 [id number] #### [facility] Laboratory [address] [place] [address] PT Coag (PPP) [Time] 10.3 second(s) Normal 9.4-12.5 [facility] [...] the same coagulation reagent and instrumentation as [facility] [place] [place]. Currently there are no coagulation studies available worldwide for children to 14 days, and no normal ranges. Performed By: #### 1 [id number] #### [facility] Laboratory [address] [place] [address] SEROLOGYOrdered By: Gerri Chavez on 07-07-2024 Beta HCG ( test) Ql Negative (07/07/24 6:23 PM) Normal [facility] [place] [place] Man Sero Troponinon 07-07-2024 Troponin HS 10.70 pg/mL Normal 10.10-27.10 [facility] Comment on above: Result Comment: The 95% CI (Confidence Interval) PPV (Positive Predictive Value) for myocardial infarction in females is 38 pg/mL, in males 51 pg/mL. The results should be used in conjunction with clinical conditions of myocardial infarction. (Access High Sensitivity Troponin I Instructions For Use, Lalito Abernathy, February 2018) Performed By: #### 2 [id number] #### [facility] [address] [place] [address] U Drug Screenon 07-07-2024 Amphetamines Screen method >1000 ng/mL Ql (U) Negative Normal NEGATIVE [facility] Comment on above: Result Comment: Nega tive Cutoff: <1000 ng/mL Performed By: #### 2 [id number] #### [facility] Laboratory [address] [place] [address] Barbiturates Screen Ql (U) Negative Normal NEGATIVE [facility] Comment on above: Result Comment: Nega tive Cutoff: <200 ng/mL Performed By: #### 2 [id number] #### [facility] Laboratory [address] [place] [address] Benzodiazepines Ql (U) Negative Normal NEGATIVE [facility] Comment on above: Result Comment: Nega tive Cutoff: <200 ng/mL Performed By: #### 2 [id number] #### [facility] Laboratory [address] [place] [address] Cannabinoids Screen Ql (U) Negative Normal NEGATIVE [facility] Comment on above: Result Comment: Nega tive Cutoff: <50 ng/mL Performed By: #### 2 [id number] #### [facility] Laboratory [address] [place] [address] Cocaine Ql (U) Negative Normal NEGATIVE [facility] Comment on above: Result Comment: Nega tive Cutoff: <300 ng/mL Performed By: #### 2 [id number] #### [facility] Laboratory [address] [place] [address] Opiates Screen Ql (U) Negative Normal NEGATIVE [facility] Comment on above: Result Comment: Nega tive Cutoff: <300 ng/mL Performed By: #### 2 [id number] #### [facility] [address] [place] [address] Phencyclidine Screen method >25 ng/mL Ql (U) Negative Normal NEGATIVE [facility] Comment on above: Result Comment: Nega tive Cutoff: <25 ng/mL These drug screen results are to be used for medical (i.e., treatment) purposes only. Unconfirmed drug screening results must not be used for non-medical purposes (e.g., employment testing, legal testing). Performed By: #### 2 [id number] #### [facility] Laboratory [address] [place] [address] U Fentanyl Negative Normal NEGATIVE [facility] Comment on above: Result Comment: Nega tive Cutoff: <5 ng/mL These drug screen results are to be used for medical (i.e., treatment) purposes only. Unconfirmed drug screening results must not be used for non-medical purposes (e.g., employment testing, legal testing). Performed By: #### 2 [id number] #### [facility] Laboratory [address] [place] [address] UA with Cult Rflxon 07-07-20 24 Bacteria Auto Ql (U) 1+ /HPF Abnormal Trace Fish [facility] Comment on above: Performed By: #### 4 [id number] #### [facility] Laboratory [address] [place] [address] Bilirubin Ql (U) Negative Normal Negative [facility] Comment on above: Performed By: #### 4 [id number] #### [facility] Laboratory [address] [place] [address] Clarity (U) Ex.Turbid Abnormal Clear [facility] Comment on above: Performed By: #### 4 [id number] #### [facility] Laboratory [address] [place] [address] Color (U) Light-Morgan Abnormal Yellow [facility] Comment on above: Result Comment: Micr oscopic readings are only performed on those samples that meet specific criteria set forth by [facility] Laboratory. Performed By: #### 4 [id number] #### [facility] Laboratory [address] [place] [address] Epithelial cells.squamous Auto (Urine sed) [#/Area] >10 Invalid Interpretation Code [facility] Comment on above: Performed By: #### 4 [id number] #### [facility] Laboratory [address] [place] [address] Glucose Ql (U) 4+ mg/dL Abnormal Negative [facility] Comment on above: Performed By: #### 4 [id number] #### [facility] Laboratory [address] [place] [address] Hemoglobin Auto test strip (U) [Mass/Vol] 1+ mg/dL Abnormal Negative [facility] Comment on above: Performed By: #### 4 [id number] #### [facility] Laboratory [address] [place] [address] Ketones Auto test strip Ql (U) Negative Normal Negative [facility] Comment on above: Performed By: #### 4 [id number] #### [facility] Laboratory [address] [place] [address] Leukocyte esterase Auto test strip Ql (U) 500 Isidoro/uL Abnormal Negative [facility] Comment on above: Performed By: #### 4 [id number] #### [facility] Laboratory [address] [place] [address] Mucus Auto Ql (U) Negative Normal Negative [facility] Comment on above: Performed By: #### 4 [id number] #### [facility] Laboratory [address] [place] [address] Nitrite Auto test strip Ql (U) Negative Normal Negative [facility] Comment on above: Performed By: #### 4 [id number] #### [facility] Laboratory [address] [place] [address] pH (U) 6.5 [pH] Invalid Interpretation Code 5.0-9.0 [facility] Comment on above: Performed By: #### 4 [id number] #### [facility] Laboratory [address] [place] [address] Protein Ql (U) Trace Abnormal Negative [facility] Comment on above: Performed By: #### 4 [id number] #### [facility] Laboratory [address] [place] [address] RBC Ql (U) 31-75 Abnormal 0-3 [facility] Comment on above: Performed By: #### 4 [id number] #### [facility] Laboratory [address] [place] [address] Specific gravity (U) [Rel density] 1.019 Invalid Interpretation Code 1.005-1.030 [facility] Comment on above: Performed By: #### 4 [id number] #### [facility] Laboratory [address] [place] [id number] Urobilinogen (U) [Mass/Vol] Negative Normal Negative [facility] Comment on above: Performed By: #### 4 [id number] #### [facility] Laboratory [address] [place] [address] WBC Auto (Urine sed) [#/Area] 31-75 Abnormal 0-5 [facility] Comment on above: Performed By: #### 4 [id number] #### [facility] Laboratory [address] [place] [id number] Yeast.budding Computer assisted Ql (U) Trace Abnormal [facility] Comment on above: Performed By: #### 4 [id number] #### [facility] Laboratory [address] [place] [id number] Type of Urine collection method Clean Catch Normal [facility] Comment on above: Performed By: #### 4 [id number] #### [facility] Laboratory [address] [place] [address] URINALYSISOrdered By: SYSTEM SYSTEM on 07-07-2024 Bacteria Auto Ql (U) 1+ /HPF Invalid Interpretation Code Trace/HPF [facility] UA Auto SS Bilirubin Ql (U) Negative Normal Negativemg/ d L [facility] UA Auto SS Clarity (U) Ex.Turbid *ABN* (07/07/24 7:41 PM) Invalid Interpretation Code Clear [facility] UA Auto SS Color (U) Light-Morgan 3 *ABN* (07/07/24 7:41 PM) Invalid Interpretation Code Yellow [facility] UA Auto SS Comment on above: Interpretive Data: M icroscopic readings are only performed on those samples that meet specific criteria set forth by [facility]. Epithelial cells.squamous Auto (Urine [...] Desc Clean Catch (07/07/24 7:41 PM) Normal [facility]A Auto SS eGFRon 07-07-2024 eGFR 30 mL/min/1.73 m2 Low >=59 [facility] Comment on above: Performed By: #### 1 [id number] #### [facility] Laboratory [address] [place] [address] Kobe 04-13-2024 L Specimen: [id number] Received: 04/15/24 Status: ANIRUDH Req Num: [id number] Spec Type: Cytology Subm Dr: Da Phillip DO Tissues: A FNA SLIDES NOPATH (RT THYR) B FNA SLIDES NOPATH (THY ISTHM) Procedures: Cyto Int and Re/2, PAPSTN/22 Age/ Patient Sex Location Account Attending Physician Virgen Gonzales 68/F [place] [id number] Da Phillip DO SPEC NUM: [id number] RECD: 04/15/24 STATUS: ANIRUDH REQ NUM: [id number] AMY: 04/13/[address] [facility] [address]: Da Phillip DO ENTERED: 04/15/[address] [facility] [address]: SPEC TYPE: Cytology DEPT: CNG ENTERED BY: [id number] RECV BY: [id number] ORDERED: Cyto Int and Re/2, PAPSTN/22 ORDERED: [...] 1 Entered: 05/11/24-1009 Supplemental for [facility]WORKER: -Ensemble Senior National Account Manager -Benign (risk of malignancy 4%) ---- Specimen: [id number] Received: 04/15/24 Status: ANIRUDH Navarro Num: [id number] Spec Type: Cytology Subm Dr: Da Phillip DO Tissues: A FNA SLIDES NOPATH (RT THYR) B FNA SLIDES NOPATH (THY ISTHM) Procedures: Cyto Int and Re/2, PAPSTN/22 ---- Patient: Virgen Gonzales [id number] (Continued) ---- Specimen: [id number] Received: 04/15/24 (Continued) Supplemental Report (Continued) Signed (signature on file) Noemy De Los Santos MD 04/21/24 1010 ---- Specimen: [id number] Received: 04/15/24 Status: ANIRUDH Navarro Num: [id number] Spec Type: Cytology Subm Dr: Da Phillip DO Tissues: A FNA SLIDES NOPATH (RT THYR) B FNA SLIDES NOPATH (THY ISTHM) Procedures: Cyto Int and Re/2, PAPSTN/22 ---- Patient: BinduLitzyNathalieVirgen [id number] (Continued) ---- Specimen: [id number] Received: 04/15/24-1244 (Continued) Supplemental Report (Continued) -Xpression [place] -N/A -Other Classifiers -BRAF: Negative -RET/PTC1: Not [...] atypia of undetermined significance, the category 3 [place] system -Pending additional molecular triage study to follow B, instruments thyroid nodule, FNA cytology: -A few follicular cells are present in combined smears, including occasional small and/or loose follicular groups, adequately for assessment, often showing small round to ovoid nuclei, consistent with the category 2 [place] system: Benign ---- Specimen: [id number] Received: 04/15/24 Status: ANIRUDH Navarro Num: [id number] Spec Type: Cytology Subm Dr: Da Phillip,DO Tissues: A FNA SLIDES NOPATH (RT THYR) B FNA SLIDES NOPATH (THY ISTHM) Procedures: Cyto Int and Re/2, PAPSTN/22 ---- Patient: Virgen Gonzales [id number] (Continued) ---- Specimen: [id number] Received: 04/15/24 (Continued) Signed (signature on file) ChinBuzz De Los Santos MD 04/21/24 1010 ---- Specimen: [id number] Received: 04/15/24-1243 Status: ANIRUDH Navarro Num: [id number] Spec Type: Cytology Subm Dr: Da Phillip,DO Tissues: A FNA SLIDES NOPATH (RT THYR) B FNA SLIDES N (more content not included)... Normal [facility] Thyrotropin [Units/volume] i n Serum or PlasmaOrdered By: Da Phillip on 03-26-2024 TSH Qn 1.31 m[IU]/L Normal 0.45-5.33 [facility] Comment on above: Result Comment: PERF ORMED BY: [place] [address] PATHOLOGIST DRIVER MANAGER JENNIFER HERNANDEZ M.D. Performed By: #### T 3T, T4T, TSH3 #### [address] Thyroxine (T4) [Mass/volume] in Serum or PlasmaOrdered By: Da Phillip on 03-26-2024 T4 [Mass/Vol] 9.37 ug/dL Normal 5.39-11.82 [facility] Comment on above: Performed By: #### T 3T, T4T, TSH3 #### [facility] [address] [place] [address] Triiodothyronine (T3) Totalo n 03-26-2024 Triiodothyronine (T3) Total 0.90 ng/mL Normal 0.87-1.78 [facility] Comment on above: Performed By: #### T 3T, T4T, TSH3 #### [address] Triiodothyronine (T3) [Mass/ volume] in Serum or PlasmaOrdered By: Da Phillip on 03-26-2024 T3 [Mass/Vol] 0.90 ng/mL 0.87-1.78 [facility] Kobe 02-14-2024 L Specimen: [id number] Received: 02/17/24 Status: SOULyudmila Req Num: [id number] Spec Type: Cytology Subm Dr: Aggie Davis CNP Tissues: A FNA SLIDES NOPATH (RT THYROID NOD) B FNA SLIDES NOPATH (ISTHMUS THY) Procedures: Cyto Int and Re/2, PAPSTN/10 Age/ Patient Sex Location Account Attending Physician Virgen Gonzales 68/F [place] [id number] Aggie Davis CNP SPEC NUM: [id number] RECD: 02/17/24 STATUS: ANIRUDH REQ NUM: [id number] AMY: 02/14/24 DR: Aggie Davis CNP ENTERED: 02/17/[address]: [place],Lab Becky Avilez MD SPEC TYPE: Cytology DEPT: POP NCRADHA ENTERED BY: [id number] RECV BY: [id number] ORDERED: Cyto Int and Re/2, PAPSTN/10 ORDERED: Cyto Int and Re/2, PAPSTN/10 Pathological Diagnosis A. Right thyroid,?fine needle aspiration:? Suspicious for follicular neoplasm, Atypical Follicular Cells With Abundant Colloid. [place] Category IV B. Isthmus, fine needle aspiration:? Unsatisfactory for evaluation. Too few epithelial cells. [place]?Category?I Clinical Information Thyroid Nodules Gross Description A. (RIGHT) Received fixed in Cytolyt is <1 ml very pale pink clear fluid for cytology said to have been obtained as right thyroid nodule-mid . ThinPrep preparations are prepared for microscopic examination. Also received are 4 spray fixed smeared slides to be stained pap aa Veracyte vial stored at -20 for microscopic examination.(HI/ut) B. (ISTHMUS) Received fixed in Cytolyt is (1 ml pink clear fluid for cytology said to have ---- Specimen: [id number] Received: 02/17/24 Status: ANIRUDH Navarro Num: [id number] Spec Type: Cytology Subm Dr: Aggie Davis CNP Tissues: A FNA SLIDES NOPATH (RT THYROID NOD) B FNA SLIDES NOPATH (ISTHMUS THY) Procedures: Cyto Int and Re/2, PAPSTN/10 ---- Patient: Virgen Gonzales [id number] (Continued) ---- Specimen: [id number] Received: 02/17/24 (Continued) Gross Description (Continued) Signed (signature on file) Nishant Morley MD 02/19/24 1428 ---- Specimen: [id number] Received: 02/17/24 Status: ANIRUDH Navarro Num: [id number] Spec Type: Cytology Subm Dr: Aggie Davis CNP Tissues: A FNA SLIDES NOPATH (RT THYROID NOD) B FNA SLIDES NOPATH (ISTHMUS THY) Procedures: Cyto Int and Re/2, PAPSTN/10 ---- Patient: JanetVirgen Ramiro [id number] (Continued) ---- Specimen: [id number] Received: 02/17/24 (Continued) Gross Description (Continued) been obtained as Isthmus thyroid nodule. ThinPrep preparations are prepared for microscopic examination. Also received are 4 spray fixed smeared smeared slides to be stained pap and a Veracyte vial stored at -20 for microscopic examination.(HI/ut) CPT Codes 68222p0 ---- ---- Specimen: [id number] Received: 02/17/24-1323 Status: ANIRUDH Navarro Num: [id number] Spec Type: Cytology Subm Dr: Aggie Davis, PAIN COORDINATOR Tissues: A FNA SLIDES NOPATH (RT THYROID NOD) B FNA SLIDES NOPATH (ISTHMUS THY) Procedures: Cyto Int and Re/2, PAPSTN/10 ---- Patient: Virgen Gonzales [id number] (Continued) ---- Signed (signature on file) Nishant Morley MD 02/19/24 5207 Normal [facility] Nonvisit Note - PTon 024 Nonvisit Note - PT Pt cancelled reassessment due to being sick. JANICE Normal [facility] Nonvisit Note - PTon 024 Nonvisit Note - PT Pt no showed for 171 5 appointment. Normal [facility] Nonvisit Note - PTon 024 Nonvisit Note - PT Pt called to cancel as she is ill. Normal [facility] Consent for Treatmenton 10-28 Consent for Treatment [id number] [id number]#1.0 0TIFF Normal [facility] PT - Assessmentson PT - Assessments [id number] 22 [id number]#1.0 0TIFF Normal [facility] PT - Consentson 11-19-2023 PT - Consents [id number] 22 [id number]#1.0 0TIFF Normal [facility] Insurance Correspondenceon 0 11-12-2023 Insurance Correspondence [id number]#1. 00TIFF Normal [facility] PT - Orderson 11-11-2023 PT - Orders [id number] 01 [id number]#1. 00TIFF Normal [facility] L Inj/Asp: L kneeon 08-27-19 24 Sue Berrymelony ARR T 09/02/2023 8:37 AM L Inj/Asp: L knee on 08/27/2023 3:43 PM Indications: pain Details: 21 G needle, lateral approach Medications: 16 mg hylan 16 MG/2ML Consent was given by the patient. [facility] PROF 14(COMP METB)on 023 Albumin [Mass/Vol] 3.2 g/dL Critically low 3.4-5.0 [facility] Comment on above: Performed By: #### T SH, CMP, T7, LIPID #### [facility] [address] [place] [address] Dr. Danay De Los Santos Albumin/Globulin [Mass ratio] 1.0 {ratio} Normal [facility] Comment on above: Performed By: #### T SH, CMP, T7, LIPID #### [facility] [address] [address] [address] Danay De Los Santos ALP [Catalytic activity/Vol] 92 U/L Normal 46-116 [facility] Comment on above: Performed By: #### T SH, CMP, T7, LIPID #### [facility] [address] [address] [address] Danay De Los Santos ALT [Catalytic activity/Vol] 21 U/L Normal 14-59 [facility] Comment on above: Performed By: #### T SH, CMP, T7, LIPID #### [facility] [address] [address] [address] Danay De Los Santos Anion gap [Moles/Vol] 13.2 mmol/L Normal [facility] Comment on above: Performed By: #### T SH, CMP, T7, LIPID #### [facility] [address] [address] [address] Danay De Los Santos AST [Catalytic activity/Vol] 14 U/L Critically low 15-37 [facility] Comment on above: Performed By: #### T SH, CMP, T7, LIPID #### [facility] [address] [address] [address] Danay De Los Santos Bilirubin [Mass/Vol] 0.2 mg/dL Normal 0.2-1.0 [facility] Comment on above: Performed By: #### T SH, CMP, T7, LIPID #### [facility] [address] [address] [address] Danay De Los Santos Calcium [Mass/Vol] 8.6 mg/dL Normal 8.5-10.1 [facility] Comment on above: Performed By: #### T SH, CMP, T7, LIPID #### [facility] [address] [address] [address] Danay De Los Santos Chloride [Moles/Vol] 105 mmol/L Normal 98-107 [facility] Comment on above: Performed By: #### T SH, CMP, T7, LIPID #### [facility] [address] [address] [address] Danay De Los Santos CO2 [Moles/Vol] 27.9 mmol/L Normal 21.0-32.0 [facility] Comment on above: Performed By: #### T SH, CMP, T7, LIPID #### [facility] [address] [address] [address] Danay De Los Santos Creatinine [Mass/Vol] 1.47 mg/dL Critically high 0.55-1.02 [facility] Comment on above: Performed By: #### T SH, CMP, T7, LIPID #### [facility] [address] [place] [address] Dr. Danay De Los Santos EGFR-AF MAURITANIAN 43 mL/min/1.73m2 Critically low >=60 [facility] Comment on above: Performed By: #### T SH, CMP, T7, LIPID #### [facility] [address] [place] [address] Dr. Danay De Los Santos EGFR-NON AF MAURITANIAN 35 mL/min/1.73m2 Critically low >=60 [facility] Comment on above: Performed By: #### T SH, CMP, T7, LIPID #### [facility] [address] [place] [address] Dr. Danay De Los Santos Globulin (S) [Mass/Vol] 3.3 g/dL Normal [facility] Comment on above: Performed By: #### T SH, CMP, T7, LIPID #### [facility] [address] [place] [address] Dr. Danay De Los Santos Glucose [Mass/Vol] 145 mg/dL Critically high 74-106 [facility] Comment on above: Performed By: #### T SH, CMP, T7, LIPID #### [facility] [address] [place] [address] Dr. Danay De Los Santos Potassium [Moles/Vol] 4.1 mmol/L Normal 3.5-5.1 [facility] Comment on above: Performed By: #### T SH, CMP, T7, LIPID #### [facility] [address] [place] [address] Dr. Danay De Los Santos Protein [Mass/Vol] 6.5 g/dL Normal 6.4-8.2 [facility] Comment on above: Performed By: #### T SH, CMP, T7, LIPID #### [facility] [address] [place] [address] Dr. Danay De Los Santos Sodium [Moles/Vol] 142 mmol/L Normal 136-145 [facility] Comment on above: Performed By: #### T SH, CMP, T7, LIPID #### [facility] [address] [address] [address] Danay De Los Santos Urea nitrogen [Mass/Vol] 22.0 mg/dL Critically high 7.0-18.0 [facility] Comment on above: Performed By: #### T SH, CMP, T7, LIPID #### [facility] [address] [address] [address] Danay De Los Santos Urea nitrogen/Creatinine [Mass ratio] 15.0 mg/mg Normal [facility] Comment on above: Performed By: #### T SH, CMP, T7, LIPID #### [facility] [address] [address] [address] Danay De Los Santos PROF CHEM 8 (BAS METB)on Anion gap [Moles/Vol] 12.1 mmol/L Normal [facility] Comment on above: Performed By: #### B MP #### [facility] [address] [address] [address] Danay De Los Santos Calcium [Mass/Vol] 8.8 mg/dL Normal 8.5-10.1 [facility] Comment on above: Performed By: #### B MP #### [facility] [address] [address] [address] Danay De Los Santos Chloride [Moles/Vol] 103 mmol/L Normal 98-107 [facility] Comment on above: Performed By: #### B MP #### [facility] [address] [address] [address] Danay De Los Santos CO2 [Moles/Vol] 28.6 mmol/L Normal 21.0-32.0 [facility] Comment on above: Performed By: #### B MP #### [facility] [address] [address] [address] Danay De Los Santos Creatinine [Mass/Vol] 2.08 mg/dL Critically high 0.55-1.02 [facility] Comment on above: Performed By: #### B MP #### [facility] [address] [address] [address] Danay De Los Santos EGFR-AF MAURITANIAN 29 mL/min/1.73m2 Critically low >=60 [facility] Comment on above: Performed By: #### B MP #### [facility] [address] [address] [address] Danay De Los Santos EGFR-NON AF MAURITANIAN 24 mL/min/1.73m2 Critically low >=60 [facility] Comment on above: Performed By: #### B MP #### [facility] [address] [address] [address] Danay De Los Santos Glucose [Mass/Vol] 259 mg/dL Critically high 74-106 [facility] Comment on above: Performed By: #### B MP #### [facility] [address] [address] [address] Danay De Los Santos Potassium [Moles/Vol] 4.7 mmol/L Normal 3.5-5.1 [facility] Comment on above: Performed By: #### B MP #### [facility] [address] [address] [address] Danay De Los Santos Sodium [Moles/Vol] 139 mmol/L Normal 136-145 [facility] Comment on above: Performed By: #### B MP #### [facility] [address] [address] [address] Danay De Los Santos Urea nitrogen [Mass/Vol] 27.0 mg/dL Critically high 7.0-18.0 [facility] Comment on above: Performed By: #### B MP #### [facility] [address] [address] [address] Danay De Los Santos Urea nitrogen/Creatinine [Mass ratio] 13.0 mg/mg Normal [facility] Comment on above: Performed By: #### B MP #### [facility] [address] [address] [address] Danay De Los Santos INSULINon 12-17-2022 Insulin 11.1 uIU/mL Normal 2.6-24.9 [facility] Comment on above: Performed By: #### I NSULIN #### [facility] [address] [address] [address] Danay De Los Santos BNPon 12-15-2022 Natriuretic peptide B (Bld) [Mass/Vol] 110.0 pg/mL Normal <=900.0 [facility] Comment on above: Performed By: #### T SH, CMP, T7, LIPID #### [facility] [address] [place] [address] Dr. Danay De Los Santos CBC AUTO DIFFon 12-15-2022 BASO # 0.1 103/ul Normal 0.0-0.1 [facility] Comment on above: Performed By: #### T SH, CMP, T7, LIPID #### [facility] [address] [place] [address] Dr. Danay De Los Santos Basophils/100 WBC (Bld) 0.5 % Normal 0.2-2.0 [facility] Comment on above: Performed By: #### T SH, CMP, T7, LIPID #### [facility] [address] [place] [address] Dr. Danay De Los Santos EO # 0.7 103/ul Normal 0.0-0.7 [facility] Comment on above: Performed By: #### T SH, CMP, T7, LIPID #### [facility] [address] [place] [address] Dr. Danay De Los Santos Eosinophils/100 WBC (Bld) 6.0 % Normal 0.9-7.0 [facility] Comment on above: Performed By: #### T SH, CMP, T7, LIPID #### [facility] [address] [place] [address] Dr. Danay De Los Santos Erythrocyte distribution width (RBC) [Ratio] 15.6 % Critically high 11.0-15.0 [facility] Comment on above: Performed By: #### T SH, CMP, T7, LIPID #### [facility] [address] [place] [address] Dr. Danay De Los Santos Hematocrit (Bld) [Volume fraction] 40.2 % Normal 36.0-48.0 [facility] Comment on above: Performed By: #### T SH, CMP, T7, LIPID #### [facility] [address] [place] [address] Dr. Danay De Los Santos Hemoglobin (Bld) [Mass/Vol] 12.6 g/dL Normal 12.0-16.0 [facility] Comment on above: Performed By: #### T SH, CMP, T7, LIPID #### [facility] [address] [place] [address] Dr. Danay De Los Santos IG # 0.06 10e3/ul Critically high 0.00-0.03 [facility] Comment on above: Performed By: #### T SH, CMP, T7, LIPID #### [facility] [address] [place] [address] Dr. Danay De Los Santos IG % 0.5 % Normal 0.0-0.5 [facility] Comment on above: Performed By: #### T SH, CMP, T7, LIPID #### [facility] [address] [place] [address] Dr. Danay De Los Santos LYMPH # 3.2 103/ul Normal 1.2-3.8 [facility] Comment on above: Performed By: #### T SH, CMP, T7, LIPID #### [facility] [address] [place] [address] Dr. Danay De Los Santos Lymphocytes/100 WBC (Bld) 28.9 % Normal 20.5-60.0 [facility] Comment on above: Performed By: #### T SH, CMP, T7, LIPID #### [facility] [address] [place] [address] Dr. Danay De Los Santos MANUAL DIFF REQ NO Normal [facility] Comment on above: Performed By: #### T SH, CMP, T7, LIPID #### [facility] [address] [place] [address] Dr. Danay De Los Santos MCH (RBC) [Entitic mass] 27.3 pg Normal 26.7-34.0 [facility] Comment on above: Performed By: #### T SH, CMP, T7, LIPID #### [facility] [address] [place] [address] Dr. Danay De Los Santos MCHC (RBC) [Mass/Vol] 31.3 g/dL Normal 29.9-35.2 [facility] Comment on above: Performed By: #### T SH, CMP, T7, LIPID #### [facility] [address] [address] [address] Danay De Los Santos MCV (RBC) [Entitic vol] 87.2 fL Normal 81.0-99.0 [facility] Comment on above: Performed By: #### T SH, CMP, T7, LIPID #### [facility] [address] [address] [address] Danay De Los Santos MONO # 0.6 103/ul Normal 0.3-0.8 [facility] Comment on above: Performed By: #### T SH, CMP, T7, LIPID #### [facility] [address] [place] [address] Dr. Danay De Los Santos Monocytes/100 WBC (Bld) 5.7 % Normal 1.7-12.0 [facility] Comment on above: Performed By: #### T SH, CMP, T7, LIPID #### [facility] [address] [place] [address] Dr. Danay De Los Santos NEUT # 6.4 103/ul Normal 1.4-6.5 [facility] Comment on above: Performed By: #### T SH, CMP, T7, LIPID #### [facility] [address] [place] [address] Dr. Danay De Los Santos Neutrophils/100 WBC (Bld) 58.4 % Normal 43.0-75.0 [facility] Comment on above: Performed By: #### T SH, CMP, T7, LIPID #### [facility] [address] [place] [address] Dr. Danay De Los Santos Platelet mean volume (Bld) [Entitic vol] 10.6 fL Normal 9.5-13.5 [facility] Comment on above: Performed By: #### T SH, CMP, T7, LIPID #### [facility] [address] [place] [address] Dr. Danay De Los Santos PLT 251 103/ul Normal 150-450 [facility] Comment on above: Performed By: #### T SH, CMP, T7, LIPID #### [facility] [address] [place] [address] Dr. Danay De Los Santos RBC 4.61 106/ul Normal 4.20-5.40 [facility] Comment on above: Performed By: #### T SH, CMP, T7, LIPID #### [facility] [address] [address] [address] Danay De Los Santos WBC 10.9 103/ul Normal 4.0-11.0 [facility] Comment on above: Performed By: #### T SH, CMP, T7, LIPID #### [facility] [address] [place] [address] Dr. Danay De Los Santos FREE THYROXINE INDEX T7on FTI 2.87 Normal 1.30-4.50 [facility] Comment on above: Performed By: #### T SH, CMP, T7, LIPID #### [facility] [address] [place] [address] Dr. Danay De Los Santos T3U 35.0 % Normal 30.0-39.0 [facility] Comment on above: Performed By: #### T SH, CMP, T7, LIPID #### [facility] [address] [place] [address] Dr. Danay De Los Santos T4 [Mass/Vol] 8.20 ug/dL Normal 4.80-13.90 [facility] Comment on above: Performed By: #### T SH, CMP, T7, LIPID #### [facility] [address] [place] [address] Dr. Danay De Los Santos GLYCOHEMOGLOBIN A1Con 2022 ADA RECOMMENDATION SEE BELOW Normal [facility] Comment on above: Result Comment: ADA RECOMMENDED LIMIT 4.0 - 6.0 ADA THERAPEUTIC TARGET < 7.0 ACTION SUGGESTED > 7.0 Performed By: #### A 1C #### [facility] [address] [place] [address] Dr. Danay De Los Santos Glucose [Mass/Vol] 203 mg/dL Normal [facility] Comment on above: Performed By: #### A 1C #### [facility] [address] [place] [address] Dr. Danay De Los Santos HbA1c (Bld) [Mass fraction] 8.7 % Critically high 4.5-6.2 [facility] Comment on above: Performed By: #### A 1C #### [facility] [address] [address] [address] Danay De Los Santos IRONon 12-15-2022 Iron [Mass/Vol] 39.0 ug/dL Critically low 50.0-170.0 [facility] Comment on above: Performed By: #### T SH, CMP, T7, LIPID #### [facility] [address] [address] [address] Danay De Los Santos LIPID PROFILEon 12-15-2022 CHOL-HDL RATIO NORM SEE BELOW Normal [facility] Comment on above: Result Comment: 3.3 - 4.4 LOW RISK 4.4 - 7.1 AVERAGE RISK 7.1 - 11.0 MODERATE RISK >11.0 HIGH RISK Performed By: #### T SH, CMP, T7, LIPID #### [facility] [address] [address] [address] Danay De Los Santos Cholesterol [Mass/Vol] 123 mg/dL Normal <=200 [facility] Comment on above: Performed By: #### T SH, CMP, T7, LIPID #### [facility] [address] [address] [address] Danay De Los Santos Cholesterol in HDL [Mass/Vol] 40 mg/dL Normal 40-60 [facility] Comment on above: Performed By: #### T SH, CMP, T7, LIPID #### [facility] [address] [address] [address] Danay De Los Santos Cholesterol in LDL [Mass/Vol] 70.4 mg/dL Normal [facility] Comment on above: Performed By: #### T SH, CMP, T7, LIPID #### [facility] [address] [address] [address] Danay De Los Santos Cholesterol.total/Cho lesterol in HDL [Mass ratio] 3.1 {ratio} Normal [facility] Comment on above: Performed By: #### T SH, CMP, T7, LIPID #### [facility] [address] [address] [address] Danay De Los Santos HDL NORMAL > or = 60 mg/dl - LO W CARDIOVASCULAR RISK <40 mg/dl - HIGH CARDIOVASCULAR RISK Normal [facility] Comment on above: Performed By: #### T SH, CMP, T7, LIPID #### [facility] [address] [address] [address] Danay De Los Santos LDL CALC NORMAL SEE BELOW Normal [facility] Comment on above: Result Comment: <100 mg/dl OPTIMAL 100 - 129 mg/dl NEAR OR ABOVE OPTIMAL 130 - 159 mg/dl BORDERLINE HIGH 160 - 189 mg/dl HIGH >190 mg/dl VERY HIGH Performed By: #### T SH, CMP, T7, LIPID #### [facility] [address] [address] [address] Danay De Los Santos Triglyceride [Mass/Vol] 63 mg/dL Normal <=150 [facility] Comment on above: Performed By: #### T SH, CMP, T7, LIPID #### [facility] [address] [address] [address] Danay De Los Santos VLDL CALC 12.6 mg/dL Normal [facility] Comment on above: Performed By: #### T SH, CMP, T7, LIPID #### [facility] [address] [address] [address] Danay De Los Santos PROF 14(COMP METB)on 023 Albumin [Mass/Vol] 3.3 g/dL Critically low 3.4-5.0 [facility] Comment on above: Performed By: #### T SH, CMP, T7, LIPID #### [facility] [address] [address] [address] Danay De Los Santos Albumin/Globulin [Mass ratio] 1.0 {ratio} Normal [facility] Comment on above: Performed By: #### T SH, CMP, T7, LIPID #### [facility] [address] [address] [address] Danay De Los Santos ALP [Catalytic activity/Vol] 94 U/L Normal 46-116 [facility] Comment on above: Performed By: #### T SH, CMP, T7, LIPID #### [facility] [address] [address] [address] Danay De Los Santos ALT [Catalytic activity/Vol] 17 U/L Normal 14-59 [facility] Comment on above: Performed By: #### T SH, CMP, T7, LIPID #### [facility] [address] [address] [address] Danay De Los Santos Anion gap [Moles/Vol] 14.3 mmol/L Normal [facility] Comment on above: Performed By: #### T SH, CMP, T7, LIPID #### [facility] [address] [place] [address] Dr. Danay De Los Santos AST [Catalytic activity/Vol] 11 U/L Critically low 15-37 [facility] Comment on above: Performed By: #### T SH, CMP, T7, LIPID #### [facility] [address] [address] [address] Danay De Los Santos Bilirubin [Mass/Vol] 0.3 mg/dL Normal 0.2-1.0 [facility] Comment on above: Performed By: #### T SH, CMP, T7, LIPID #### [facility] [address] [place] [address] Dr. Danay De Los Santos Calcium [Mass/Vol] 9.1 mg/dL Normal 8.5-10.1 [facility] Comment on above: Performed By: #### T SH, CMP, T7, LIPID #### [facility] [address] [place] [address] Dr. Danay De Los Santos Chloride [Moles/Vol] 105 mmol/L Normal 98-107 [facility] Comment on above: Performed By: #### T SH, CMP, T7, LIPID #### [facility] [address] [address] [address] Danay De Los Santos CO2 [Moles/Vol] 29.3 mmol/L Normal 21.0-32.0 [facility] Comment on above: Performed By: #### T SH, CMP, T7, LIPID #### [facility] [address] [place] [address] Dr. Danay De Los Santos Creatinine [Mass/Vol] 1.53 mg/dL Critically high 0.55-1.02 [facility] Comment on above: Performed By: #### T SH, CMP, T7, LIPID #### [facility] [address] [place] [address] Dr. Danay De Los Santos EGFR-AF MAURITANIAN 41 mL/min/1.73m2 Critically low >=60 [facility] Comment on above: Performed By: #### T SH, CMP, T7, LIPID #### [facility] [address] [address] [address] Danay De Los Santos EGFR-NON AF MAURITANIAN 34 mL/min/1.73m2 Critically low >=60 [facility] Comment on above: Performed By: #### T SH, CMP, T7, LIPID #### [facility] [address] [address] [address] Danay De Los Santos Globulin (S) [Mass/Vol] 3.4 g/dL Normal [facility] Comment on above: Performed By: #### T SH, CMP, T7, LIPID #### [facility] [address] [address] [address] Danay De Los Santos Glucose [Mass/Vol] 192 mg/dL Critically high 74-106 [facility] Comment on above: Performed By: #### T SH, CMP, T7, LIPID #### [facility] [address] [address] [address] Danay De Los Santos Potassium [Moles/Vol] 4.6 mmol/L Normal 3.5-5.1 [facility] Comment on above: Performed By: #### T SH, CMP, T7, LIPID #### [facility] [address] [address] [address] Danay De Los Santos Protein [Mass/Vol] 6.7 g/dL Normal 6.4-8.2 [facility] Comment on above: Performed By: #### T SH, CMP, T7, LIPID #### [facility] [address] [address] [address] Danay De Los Santos Sodium [Moles/Vol] 144 mmol/L Normal 136-145 [facility] Comment on above: Performed By: #### T SH, CMP, T7, LIPID #### [facility] [address] [address] [address] Danay De Los Santos Urea nitrogen [Mass/Vol] 25.0 mg/dL Critically high 7.0-18.0 [facility] Comment on above: Performed By: #### T SH, CMP, T7, LIPID #### [facility] [address] [address] [address] Danay De Los Santos Urea nitrogen/Creatinine [Mass ratio] 16.3 mg/mg Normal [facility] Comment on above: Performed By: #### T SH, CMP, T7, LIPID #### [facility] [address] [address] [address] Danay De Los Santos TSHon 12-15-2022 TSH 2.181 uIU/mL Normal 0.358-3.740 [facility] Comment on above: Performed By: #### T SH, CMP, T7, LIPID #### [facility] [address] [address] [address] Danay De Los Santos VITAMIN D 25 OHon 12-15-2022 VIT D 25-OH 32.9 ng/mL Normal [facility] Comment on above: Performed By: #### T SH, CMP, T7, LIPID #### [facility] [address] [place] [address] Dr. Danay De Los Santos VIT D RANGES SEE BELOW Normal [facility] Comment on above: Result Comment: <20 ng/mL Vit D deficient 20 - <30 ng/mL Vit D insufficient 30 - 100 ng/mL Vit D sufficient >100 ng/mL Potential Toxicity Performed By: #### T SH, CMP, T7, LIPID #### [facility] [address] [place] [address] Dr. Danay De Los Santos US ROEL [...] by: MORIAH MORRISON Date: 2022-12-01 12:54 Normal [facility] XR Hand Complete Left*on XR Hand Complete Left* CLINICAL HISTORY: Fall with left hand stiffness. COMPARISON: None. RESULT: No distinct acute fracture. No dislocation. Underlying decreased bone mineral density. Mild to moderate scattered degenerative changes. Soft tissue edema. IMPRESSION: No acute osseous findings radiographically. Report reported and signed by Home Lockwood on 08/24/2022 1108 Normal [facility] XR Spine Cervical Complete*o n 08-24-2022 XR [...] by Home Lockwood on 08/24/2022 1109 Normal [facility] XR HAND RIMA MIN 3Von 023 XR HAND RIMA MIN 3V EXAM: XR HAND RIMA OK N 3V HISTORY: Pain following fall COMPARISON: None. TECHNIQUE: 3 views of each hand FINDINGS: No visualized fracture, dislocation, subluxation or osseous lesion. Age-related joint space changes. No gross visualized soft tissue edema. IMPRESSION: No visualized abnormality Electronically authenticated by: BRIANNA KU Date: 2022-08-06 20:28 Normal [facility] XR HIP RT 2 3V W PELVISon [...] by: BRIANNA KU Date: 2022-08-06 20:29 Normal [facility] XR SHOULDER RT 2V or >on XR SHOULDER RT 2V or > EXAM: XR SHOULDER RT 2V or > HISTORY: Pain from fall COMPARISON: None. TECHNIQUE: 3 views FINDINGS: No osseous lesion, fracture, dislocation or subluxation. Moderate degenerative changes of the acromioclavicular joint. No visualized effusion. No visualized soft tissue edema. IMPRESSION: Normal x-rays Electronically authenticated by: BRIANNA KU Date: 2022-08-06 20:21 Normal [facility] XR Foot Complete Left*on XR Foot Complete Left* COMPARISON: None available HISTORY: Second and third digit pain after a fall TECHNIQUE: AP, lateral and oblique views of the foot obtained. FINDINGS: No acute fracture or dislocation. Joint spaces are preserved. Soft tissues are within normal limits. IMPRESSION: No acute osseous abnormality. Report reported and signed by Drew Looney on 08/04/2022 1044 Normal [facility] [employer] XR Knee Complete Left*on XR Knee Complete [...] by Drew Looney on 08/04/2022 1046 Normal [facility] EXAMINATION: MRI BRA IN [facility], 07/02/2022 1:55 PM EST HISTORY: Headache COMPARISON: [...] BRIANNA GREEN Date: 2022-07-02 14:48 Normal [facility] INSULINon 05-28-2022 Insulin 13.4 uIU/mL Normal 2.6-24.9 [facility] Comment on above: Performed By: #### I NSULIN #### [facility] [address] [place] [address] Dr. Danay De Los Santos CBC AUTO DIFFon 05-26-2022 BASO # 0.1 103/ul Normal 0.0-0.1 [facility] Comment on above: Performed By: #### C BC #### [facility] [address] [place] [address] Dr. Danay De Los Santos Basophils/100 WBC (Bld) 0.8 % Normal 0.2-2.0 [facility] Comment on above: Performed By: #### C BC #### [facility] [address] [place] [address] Dr. Danay De Los Santos EO # 0.6 103/ul Normal 0.0-0.7 [facility] Comment on above: Performed By: #### C BC #### [facility] [address] [place] [address] Dr. Dnaay De Los Santos Eosinophils/100 WBC (Bld) 5.1 % Normal 0.9-7.0 [facility] Comment on above: Performed By: #### C BC #### [facility] [address] [place] [address] Dr. Danay De Los Santos Erythrocyte distribution width (RBC) [Ratio] 14.7 % Normal 11.0-15.0 [facility] Comment on above: Performed By: #### C BC #### [facility] [address] [place] [address] Dr. Danay De Los Santos Hematocrit (Bld) [Volume fraction] 37.8 % Normal 36.0-48.0 [facility] Comment on above: Performed By: #### C BC #### [facility] [address] [place] [address] Dr. Danay De Los Santos Hemoglobin (Bld) [Mass/Vol] 12.3 g/dL Normal 12.0-16.0 [facility] Comment on above: Performed By: #### C BC #### [facility] [address] [address] [address] Danay De Los Santos IG # 0.05 10e3/ul Critically high 0.00-0.03 [facility] Comment on above: Performed By: #### C BC #### [facility] [address] [address] [address] aDnay De Los Santos IG % 0.5 % Normal 0.0-0.5 [facility] Comment on above: Performed By: #### C BC #### [facility] [address] [place] [address] Dr. Danay De Los Santos LYMPH # 2.1 103/ul Normal 1.2-3.8 [facility] Comment on above: Performed By: #### C BC #### [facility] [address] [place] [address] Dr. Danay De Los Santos Lymphocytes/100 WBC (Bld) 19.1 % Critically low 20.5-60.0 [facility] Comment on above: Performed By: #### C BC #### [facility] [address] [place] [address] Dr. Danay De Los Santos MANUAL DIFF REQ NO Normal [facility] Comment on above: Performed By: #### C BC #### [facility] [address] [place] [address] Dr. Danay De Los Santos MCH (RBC) [Entitic mass] 30.8 pg Normal 26.7-34.0 [facility] Comment on above: Performed By: #### C BC #### [facility] [address] [place] [address] Dr. Danay De Los Santos MCHC (RBC) [Mass/Vol] 32.5 g/dL Normal 29.9-35.2 [facility] Comment on above: Performed By: #### C BC #### [facility] [address] [place] [address] Dr. Danay De Los Santos MCV (RBC) [Entitic vol] 94.5 fL Normal 81.0-99.0 [facility] Comment on above: Performed By: #### C BC #### [facility] [address] [place] [address] Dr. Danay De Los Santos MONO # 0.6 103/ul Normal 0.3-0.8 [facility] Comment on above: Performed By: #### C BC #### [facility] [address] [address] [address] Danay De Los Santos Monocytes/100 WBC (Bld) 5.1 % Normal 1.7-12.0 [facility] Comment on above: Performed By: #### C BC #### [facility] [address] [place] [address] Dr. Danay De Los Santos NEUT # 7.5 103/ul Critically high 1.4-6.5 [facility] Comment on above: Performed By: #### C BC #### [facility] [address] [place] [address] Dr. Danay De Los Santos Neutrophils/100 WBC (Bld) 69.4 % Normal 43.0-75.0 [facility] Comment on above: Performed By: #### C BC #### [facility] [address] [place] [address] Dr. Danay De Los Santos Platelet mean volume (Bld) [Entitic vol] 10.9 fL Normal 9.5-13.5 [facility] Comment on above: Performed By: #### C BC #### [facility] [address] [place] [address] Dr. Danay De Los Santos PLT 235 103/ul Normal 150-450 [facility] Comment on above: Performed By: #### C BC #### [facility] [address] [place] [address] Dr. Danay De Los Santos RBC 4.00 106/ul Critically low 4.20-5.40 [facility] Comment on above: Performed By: #### C BC #### [facility] [address] [place] [address] Dr. Danay De Los Santos WBC 10.8 103/ul Normal 4.0-11.0 [facility] Comment on above: Performed By: #### C BC #### [facility] [address] [address] [address] Danay De Los Santos FREE THYROXINE INDEX T7on FTI 1.83 Normal 1.30-4.50 [facility] Comment on above: Performed By: #### T SH, CMP, T7, LIPID #### [facility] [address] [place] [address] Dr. Danay De Los Santos T3U 31.0 % Normal 30.0-39.0 [facility] Comment on above: Performed By: #### T SH, CMP, T7, LIPID #### [facility] [address] [address] [address] Danay De Los Santos T4 [Mass/Vol] 5.90 ug/dL Normal 4.80-13.90 [facility] Comment on above: Performed By: #### T SH, CMP, T7, LIPID #### [facility] [address] [place] [address] Dr. Danay De Los Santos GLYCOHEMOGLOBIN A1Con 2021 ADA RECOMMENDATION SEE BELOW Normal [facility] Comment on above: Result Comment: ADA RECOMMENDED LIMIT 4.0 - 6.0 ADA THERAPEUTIC TARGET < 7.0 ACTION SUGGESTED > 7.0 Performed By: #### A 1C #### [facility] [address] [place] [address] Dr. Danay De Los Santos Glucose [Mass/Vol] 186 mg/dL Normal [facility] Comment on above: Performed By: #### A 1C #### [facility] [address] [place] [address] Dr. Danay De Los Santos HbA1c (Bld) [Mass fraction] 8.1 % Critically high 4.5-6.2 [facility] Comment on above: Performed By: #### A 1C #### [facility] [address] [place] [address] Dr. Danay De Los Santos IRONon 05-26-2022 Iron [Mass/Vol] 61.0 ug/dL Normal 50.0-170.0 [facility] Comment on above: Performed By: #### T SH, CMP, T7, LIPID #### [facility] [address] [place] [address] Dr. Danay De Los Santos LIPID PROFILEon 05-26-2022 CHOL-HDL RATIO NORM SEE BELOW Normal [facility] Comment on above: Result Comment: 3.3 - 4.4 LOW RISK 4.4 - 7.1 AVERAGE RISK 7.1 - 11.0 MODERATE RISK >11.0 HIGH RISK Performed By: #### T SH, CMP, T7, LIPID #### [facility] [address] [address] [address] Danay De Los Santos Cholesterol [Mass/Vol] 130 mg/dL Normal <=200 [facility] Comment on above: Performed By: #### T SH, CMP, T7, LIPID #### [facility] [address] [address] [address] Danay De Los Santos Cholesterol in HDL [Mass/Vol] 40 mg/dL Normal 40-60 [facility] Comment on above: Performed By: #### T SH, CMP, T7, LIPID #### [facility] [address] [address] [address] Danay De Los Santos Cholesterol in LDL [Mass/Vol] 75.8 mg/dL Normal [facility] Comment on above: Performed By: #### T SH, CMP, T7, LIPID #### [facility] [address] [address] [address] Danay De Los Santos Cholesterol.total/Cho lesterol in HDL [Mass ratio] 3.3 {ratio} Normal [facility] Comment on above: Performed By: #### T SH, CMP, T7, LIPID #### [facility] [address] [address] [address] Danay De Los Santos HDL NORMAL > or = 60 mg/dl - LO W CARDIOVASCULAR RISK <40 mg/dl - HIGH CARDIOVASCULAR RISK Normal [facility] Comment on above: Performed By: #### T SH, CMP, T7, LIPID #### [facility] [address] [address] [address] Danay De Los Santos LDL CALC NORMAL SEE BELOW Normal [facility] Comment on above: Result Comment: <100 mg/dl OPTIMAL 100 - 129 mg/dl NEAR OR ABOVE OPTIMAL 130 - 159 mg/dl BORDERLINE HIGH 160 - 189 mg/dl HIGH >190 mg/dl VERY HIGH Performed By: #### T SH, CMP, T7, LIPID #### [facility] [address] [address] [address] Danay De Los Santos Triglyceride [Mass/Vol] 71 mg/dL Normal <=150 [facility] Comment on above: Performed By: #### T SH, CMP, T7, LIPID #### [facility] [address] [address] [address] Danay De Los Santos VLDL CALC 14.2 mg/dL Normal [facility] Comment on above: Performed By: #### T SH, CMP, T7, LIPID #### [facility] [address] [place] [address] Dr. Danay De Los Santos PROF 14(COMP METB)on 022 Albumin [Mass/Vol] 3.4 g/dL Normal 3.4-5.0 [facility] Comment on above: Performed By: #### T SH, CMP, T7, LIPID #### [facility] [address] [place] [address] Dr. Danay De Los Santos Albumin/Globulin [Mass ratio] 1.0 {ratio} Normal [facility] Comment on above: Performed By: #### T SH, CMP, T7, LIPID #### [facility] [address] [place] [address] Dr. Danay De Los Santos ALP [Catalytic activity/Vol] 92 U/L Normal 46-116 [facility] Comment on above: Performed By: #### T SH, CMP, T7, LIPID #### [facility] [address] [place] [address] Dr. Danay De Los Santos ALT [Catalytic activity/Vol] 15 U/L Normal 14-59 [facility] Comment on above: Performed By: #### T SH, CMP, T7, LIPID #### [facility] [address] [place] [address] Dr. Danay De Los Santos Anion gap [Moles/Vol] 10.4 mmol/L Normal [facility] Comment on above: Performed By: #### T SH, CMP, T7, LIPID #### [facility] [address] [place] [address] Dr. Danay De Los Santos AST [Catalytic activity/Vol] 12 U/L Critically low 15-37 [facility] Comment on above: Performed By: #### T SH, CMP, T7, LIPID #### [facility] [address] [address] [address] Danay De Los Santos Bilirubin [Mass/Vol] 0.4 mg/dL Normal 0.2-1.0 [facility] Comment on above: Performed By: #### T SH, CMP, T7, LIPID #### [facility] [address] [address] [address] Danay De Los Santos Calcium [Mass/Vol] 8.7 mg/dL Normal 8.5-10.1 [facility] Comment on above: Performed By: #### T SH, CMP, T7, LIPID #### [facility] [address] [place] [address] Dr. Danay De Los Santos Chloride [Moles/Vol] 107 mmol/L Normal 98-107 [facility] Comment on above: Performed By: #### T SH, CMP, T7, LIPID #### [facility] [address] [address] [address] Danay De Los Santos CO2 [Moles/Vol] 28.9 mmol/L Normal 21.0-32.0 [facility] Comment on above: Performed By: #### T SH, CMP, T7, LIPID #### [facility] [address] [address] [address] Danay De Los Santos Creatinine [Mass/Vol] 1.18 mg/dL Critically high 0.55-1.02 [facility] Comment on above: Performed By: #### T SH, CMP, T7, LIPID #### [facility] [address] [address] [address] Danay De Los Santos EGFR-AF MAURITANIAN 55 mL/min/1.73m2 Critically low >=60 [facility] Comment on above: Performed By: #### T SH, CMP, T7, LIPID #### [facility] [address] [address] [address] Danay De Los Santos EGFR-NON AF MAURITANIAN 46 mL/min/1.73m2 Critically low >=60 [facility] Comment on above: Performed By: #### T SH, CMP, T7, LIPID #### [facility] [address] [address] [address] Danay De Los Santos Globulin (S) [Mass/Vol] 3.3 g/dL Normal [facility] Comment on above: Performed By: #### T SH, CMP, T7, LIPID #### [facility] [address] [address] [address] Danay De Los Santos Glucose [Mass/Vol] 153 mg/dL Critically high 74-106 [facility] Comment on above: Performed By: #### T SH, CMP, T7, LIPID #### [facility] [address] [address] [address] Danay De Los Santos Potassium [Moles/Vol] 4.3 mmol/L Normal 3.5-5.1 [facility] Comment on above: Performed By: #### T SH, CMP, T7, LIPID #### [facility] [address] [place] [address] Dr. Danay De Los Santos Protein [Mass/Vol] 6.7 g/dL Normal 6.4-8.2 [facility] Comment on above: Performed By: #### T SH, CMP, T7, LIPID #### [facility] [address] [place] [address] Dr. Danay De Los Santos Sodium [Moles/Vol] 142 mmol/L Normal 136-145 [facility] Comment on above: Performed By: #### T SH, CMP, T7, LIPID #### [facility] [address] [address] [address] Danay De Los Santos Urea nitrogen [Mass/Vol] 16.0 mg/dL Normal 7.0-18.0 [facility] Comment on above: Performed By: #### T SH, CMP, T7, LIPID #### [facility] [address] [place] [address] Dr. Danay De Los Santos Urea nitrogen/Creatinine [Mass ratio] 13.6 mg/mg Normal [facility] Comment on above: Performed By: #### T SH, CMP, T7, LIPID #### [facility] [address] [address] [address] Danay De Los Santos TSHon 05-26-2022 TSH 1.443 uIU/mL Normal 0.358-3.740 [facility] Comment on above: Performed By: #### T SADAF, CMP, T7, LIPID #### [facility] [address] [address] [address] Danay De Los Santos XR DEXA [...] by: BECKY AVILEZ Date: 2022-04-05 12:11 Normal [facility] GLYCOHEMOGLOBIN A1Con 2021 ADA RECOMMENDATION SEE BELOW Normal [facility] Comment on above: Result Comment: ADA RECOMMENDED LIMIT 4.0 - 6.0 ADA THERAPEUTIC TARGET < 7.0 ACTION SUGGESTED > 7.0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
--- NOTE | 2024-08-12 06:53 | MR_ITS ---
The [address] [address] Patient Name: IDRIS GRIFFIN MRN: [id number] date: 1955 Sex: F Assigned Patient Location: LAB Current Patient Location: LAB Accession/Order Number: [id number] Exam Date: 08/12/2024 07:10 Report Date: 08/12/2024 08:52 At the request of: JOSE HARLEY Procedure: MR abdomen wo/w con EXAMINATION: MR abdomen wo/w con HISTORY: kidney mass N28.89 COMPARISON: No relevant comparison available. TECHNIQUE: A comprehensive MRI examination of the abdomen was performed to optimize visualization of suspected pathology. Images were obtained both before and after intravenous administration of Dotarem contrast. FINDINGS: LIVER: The visualized portions of the liver are normal with no focal or enhancing mass BILIARY: The gallbladder is absent PANCREAS: No lesion, fluid collection, ductal dilatation, or atrophy. SPLEEN: No enlargement or focal lesion. KIDNEYS: Multiple nonenhancing cortical and exophytic cystic lesions in both kidneys many of which demonstrate decreased T1 increased T2 signal and are consistent with simple cysts. Multiple additional lesions demonstrate increased T1 signal without postcontrast enhancement and likely represent proteinaceous or hemorrhagic cyst. No enhancing mass is observed. No hydronephrosis ADRENALS: No mass or enlargement. AORTA/VASCULAR: No aneurysm or dissection. RETROPERITONEUM: No mass or adenopathy. BOWEL/MESENTERY: No visible mass, obstruction, or bowel wall thickening. ABDOMINAL WALL: No mass or hernia. BONES: No bony lesion or fracture. MR/MR abdomen wo/w con IMPRESSION: Multiple nonenhancing bilateral renal simple and complex cortical and exophytic cysts. No enhancing mass Electronically authenticated by: BRIANNA GREEN Date: 08/12/2024 08:52
[2024-08-12 06:59] LABS: Estimated GFR (African America 33 (>=60 mL/min/1.73m^2); Estimated GFR (Non-African Ame 27 (>=60 mL/min/1.73m^2)
--- NOTE | 2024-08-12 08:00 | NM_ITS ---
Patient Name: IDRIS GRIFFIN MR#: [id number] : 1955 Exam Date: 08/12/2024 Ordering Doctor: DR Carter Granger . RADIOLOGY REPORT PROCEDURE: NM ARUN PERF SPECT REST STR COMPARISON: None. INDICATIONS: SYNCOPE TECHNIQUE: Exam Description: Stress/Rest one day protocol gated SPECT Rest Imagin.1 mCi Tc-99m Cardiolite IV on 08/12/2024 Stress Imaging 29.6 mCi Tc-99m Cardiolite IV on 08/12/2024 Exercise Protocol: 0.4 mg Lexiscan given IV Heart Rate (bpm): Rest: 83 Max: 129 PMHR: 84 Blood Pressure: Rest: 128/86 Max: 158/94 Symptoms: Rest and peak stress ECG findings were pending and the exercise portion of the study was pending per attending physician Dr. PEREZ . For more details please see separate cardiac stress test report. FINDINGS: QUALITY OF STUDY: Excellent. PERFUSION DEFECT: None. LOCATION: Basal anterior. Mid-anterior. Apical anterior. SIZE: Medium (3-4 segments). SEVERITY: Mild. TYPE: Persistent. WALL MOTION: Normal. LV SIZE: Normal. 64 mL. TID / TCD: None; 0.8 LVEF: Normal. Calculated EF 78%. SUMMARY: Myocardial perfusion imaging study has ABNORMAL findings. CONCLUSION: 1. Fixed defect in the anterior wall, breast attenuation artifact suspected 2. No redistribution to suggest reversible ischemia 3. Pending exercise test results Dictated by: Carlos Hernandez MD on 08/12/2024 at 15:28 Approved by: Carlos Hernandez MD on 08/12/2024 at 15:30
--- NOTE | 2024-08-12 08:24 | CA_ITS ---
Patient Name: IDRIS GRIFFIN MR#: [id number] : 1955 Exam Date: 08/12/2024 Ordering Doctor: DR Carter Granger . ECHOCARDIOGRAM REPORT PROCEDURE: CA ECHO DOPPLER COMPLETE INDICATIONS: Syncope, smoker, hypertension, diabetes, h/o MA COMPARISON: None. DESCRIPTION: COMPLETE ECHOCARDIOGRAM Real-time transthoracic echocardiography with 2D, M-mode, spectral and color flow Doppler performed. QUALITY: Technical quality was good. LEFT VENTRICLE: Normal chamber size. Thickened septal wall. Normal systolic function. LV EF: Normal left ventricular ejection fraction, (55-60%). DIASTOLIC: Diastolic function is indeterminate. ATRIAL SEPTUM: Visually appears intact. LEFT ATRIUM: Normal chamber size. RIGHT ATRIUM: Normal chamber size. RIGHT VENTRICLE: Normal chamber size. Normal right ventricular systolic function. TRICUSPID VALVE: Normal mobility and thickness. No stenosis with no regurgitation. Unable to assess right sided pressures due to lack of measurable tricuspid regurgitation. MITRAL VALVE: Normal mobility and thickness. No evidence of mitral valve stenosis. There is no mitral annular calcification. No mitral regurgitation. AORTIC VALVE: Normal trileaflet appearance. No visible sclerosis. Normal leaflet mobility. No evidence of aortic valve stenosis. No aortic regurgitation. AORTIC ROOT: Normal diameter and appearance. PULMONIC VALVE: Normal thickness and mobility. No stenosis. No regurgitation. PERICARDIUM: No evidence of pericardial effusion. IVC: IVC is normal in size, does not fully collapse. PLEURA: CONCLUSION: 1. Normal ventricular size and systolic function. LVEF is 55-60%. 2. No significant valvular dysfunction. 3. Unable to assess right sided pressures due to lack of measurable tricuspid regurgitation. Adult Echocardiography Procedure Report Left Ventricle LVEDD (3.7 - 5.6 cm): 4.14 cm LVESD (2.2 - 4.0 cm): 3.29 cm LVIVS thickness (0.6 - 1.2 cm): 1.11 cm LVPW thickness (0.5 - 1.0 cm): 0.89 cm e': 0.09 m/s E - e': 10.41 LVOT Max Gradient: 3.34 mm[Hg] LVOT Area (cm2): 0.91 m/s Peak Velocity (LVOT): 0.91 m/s Mean Velocity (LVOT): 0.67 m/s LVOT Diameter 2.13 cm Left Atrium LA Volume Index (2D A2C): 19.95 ml/m2 Left Atrium Systolic Dimension: 3.38 cm Mitral Valve MV E to A Ratio: 0.92 Mitral Valve A-Wave Peak Velocity: 1.04 m/s Mitral Valve E-Wave Peak Velocity: 0.96 m/s Right Ventricle Aorta AO Root Diam: 3.32 cm Aortic Valve AoV Area (Peak Vinny): 1.98 cm2, 1.98 cm2 AoV Area (VTI): 2.13 cm2, 2.13 cm2 Peak Velocity(Antegrade Flow): 1.64 m/s Peak Gradient(Antegrade Flow): 10.77 mm[Hg] Mean Velocity(Antegrade Flow): 1.04 m/s Mean Gradient(Antegrade Flow): 4.96 mm[Hg] Velocity Time Integral: 37.13 cm Tricuspid Valve Pulmonic Valve Mean Gradient: 1.19 mm[Hg] Mean Velocity: 0.51 m/s Peak Velocity: 0.79 m/s, 0.75 m/s Peak Gradient: 2.23 mm[Hg], 2.49 mm[Hg] Right Atrium Right Atrium Systolic Pressure: 45.52 ml, 45.52 ml Dictated by: Castro Barbosa M.D. on 08/15/2024 at 14:46 Approved by: Castro Barbosa M.D. on 08/15/2024 at 14:56
[2024-08-12 10:20] LABS: Glucometer 64 mg/dL (74-106)
[2024-08-12 10:42] LABS: Glucometer 82 mg/dL (74-106)
[2024-08-12] MEDS: AMINOPHYLLINE 250 MG/10 ML VIAL 50 MG IVP (11:16)
[2024-08-12] MEDS: REGADENOSON 0.4 MG/5 ML SYRINGE IV (11:17)
--- NOTE | 2024-08-12 15:09 | PC.NURSE ---
Nursing Note Cardiac Stress Test Reviewed: Medication, allergies and patient history reviewed. Stress Test: [ ] Patient tolerated stress test well. [ ] Patient unable to tolerate walking on treadmill. Switched to Lexiscan stress test. [ x] No chest pain noted per patient [ ] Chest pain that resolved prior to leaving stress lab. [ ] No dyspnea noted. [ x] Dyspnea that resolved prior to leaving stress lab. [ x] Patient left stress lab asymptomatic and hemodynamically stable. [ ] Patient taken to the Emergency Room due to non-resolving symptoms following stress test. [ ] Patient achieved target heart rate. [ ] Patient unable to achieve target heart rate. [ x] Aminophylline administered as reversal agent to Lexiscan (Regadenoson). [ ] Nitro administered. Nursing Comments:Pt had Lexiscan stress test done. Within 1 minute of Zaina injection pt had SOB and a coughing spell that she could not stop. Pt was having a hard time breathing and Aminophylline was given for a reversal. Within 45 seconds of this pt started to feel better and was able to stop coughing and her breathing was back to normal. Pt stated she has coughing spells like this but it has never been this bad. Within 6 minutes from injection time of Zaina pt was back to her normal state and was able to talk in full sentneces was no longer coughing and stated she had no other symptoms.
== END 2024-08-12 06:39 | disposition home or self-care (01) ==
LOC: LAB 06:38
PROVIDERS: PCP Nurse Practitioner Family; Visit Provider Family Medicine
DX: N28.89 Other specified disorders of kidney and ureter (principal); Z01.818 Encounter for other preprocedural examination; R55 Syncope and collapse; N28.1 Cyst of kidney, acquired; M79.671 Pain in right foot; M19.071 Primary osteoarthritis, right ankle and foot; R94.39 Abnormal result of other cardiovascular function study; R07.9 Chest pain, unspecified
CPT/HCPCS: 36415; 73630; 74183; 78452; 82565; 93017; 93306; A9500; A9575; J0280; J2785

== ENCOUNTER 2024-08-12 08:04 | Outpatient (OUT) | payer MEDICARE, SELFPAY ==
--- NOTE | 2024-08-12 08:17 | XR_ITS ---
[address] [address] Patient Name: IDRIS GRIFFIN MRN: [id number] date: 1955 Sex: F Assigned Patient Location: [facility] Current Patient Location: LAB Accession/Order Number: [id number] Exam Date: 08/12/2024 08:10 Report Date: 08/12/2024 08:40 At the request of: JOSUÉ DAVIS Procedure: XR foot RT min 3V PROCEDURE: XR foot RT min 3V COMPARISON: None. HISTORY: Right Foot Pain FINDINGS: BONES:No acute fracture or dislocation. Moderate enthesopathic spurring of the calcaneus at the Achilles and plantar insertions. Moderate degenerative changes of the midfoot SOFT TISSUES:Negative. No visible soft tissue swelling. EFFUSION:None visible. OTHER: Negative. XR/XR foot RT min 3V IMPRESSION: Moderate degenerative changes Electronically authenticated by: BRIANNA GREEN Date: 08/12/2024 08:40
--- OUTSIDE RECORDS SUMMARY | 2024-08-12 08:21 | XMS_ITS | CCD ---
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 Name Role Phone AGGIE FU Primary [...] ROMEO Davis-Hilda Marcial Isabel Primary Care Provider DO Brice Estrella Attending Provider ROMEO Davis-Hilda Aggie Isabel Primary Care Provider [phone] ROMEO Davis-Hilda Hall Attending Provider DO Da Phillip Attending Provider Susan WRAY, Aggie Unavailable Carter Granger MD Primary Care Provider [phone] Da Phillip DO S Unavailable [phone] DELORES, BRICE A Attending Unavailable BROWN, BRICE [...] Drug Allergy itching , sick to stomach [facility] (8 sources) Acetaminophen / oxyCODONE; Translations: [acetaminophen-ox ycodone] Drug Allergy sleeps a long time [facility] (8 sources) acetaminophen / propoxyphene; Translations: [acetaminophen-pr opoxyphene] Drug Allergy Itching [facility] (20 sources) Codeine; Translations: [codeine] Drug Allergy 1 Rash [facility] (20 sources) Penicillins; Translations: [penicillins] Drug allergy 4 Difficulty breathing at rest, Hives [facility] (20 sources) Propoxyphene; Translations: [propoxyphene] Drug Allergy 7 Itching, Unknown [facility] (1 source) Propoxyphene Drug Allergy 4 [facility] (1 source) ZOLMitriptan Drug Allergy 4 [facility] (1 source) Darvocet-N 100 Drug allergy (disorder) 4 [facility] (14 sources) Acetaminophen / HYDROcodone Drug Allergy 5 Unknown [facility] (14 sources) Acetaminophen / oxyCODONE Drug Allergy 1 [facility] (18 sources) HYDROcodone Drug Allergy 1 Unknown [facility] (14 sources) traMADol Drug Allergy 1 [facility] (5 sources) Acetaminophen; Translations: [acetaminophen] Drug Allergy 3 Itching [facility] (5 sources) oxyCODONE; Translations: [oxycodone] Drug Allergy 3 Drowsy [facility] (5 sources) Penicillin; Translations: [penicillin G] Drug Allergy 3 welts itching [facility] (5 sources) ZOLMitriptan; Translations: [zolmitriptan] Drug Allergy 3 felt like I was on fire [facility] (1 source) Codeine Drug Allergy 3 [facility] (1 source) HYDROcodone Drug Allergy 3 [facility] (1 source) Propoxyphene Drug Allergy 3 [facility] Medications Current Medications Medication Drug Class(es) Dates Sig (Normalized) Sig (Original) [id number] 200 actuat albuterol 0.09 mg/actuat metered dose [...] q12hr, # 20 cap(s), Refills(s) 0, Pharmacy: [facility] 1986, 152, cm, 07/07/24 18:23:00 EST, Height/Length [...] Pr opionate (Flonase Allergy Relief) 50 mcg/actuation Garber,Suspension Active 1 SPRAY INTRANASAL As Directed February [...] g56.02, # 30 tab(s), Refills(s) 0, Pharmacy: [facility] #[id number], 152.4, cm, 06/07/23 6:59:00 EST, Height/Length Dosing [...] 50 tab(s), Refills(s) 0, [facility]: [id number], 152.4, cm, 06/07/23 6:59:00 EST, Height/Length Dosing [...] Locations R1: This test was performed at: [facility], [address] [place] [address], [phone]- , [place], Normal [facility] Comment on above: Performed By: #### 2 [id number] #### [facility] [address] [place] [address] ED Note-Physicianon 07-09-20 ED Note-Physician ED Note-Physician [...] syncopal episode at work. Patient works at [employer] and states all of a sudden she [...] if appl (more content not included)... Normal [facility] Comment on above: Result Comment: Elec tronically Signed By: Kelly Smith PA-C\.br\Date and Time Signed: 07/08/24 02:10 EST\.br\Electronically Co-Signed By: Ean Azevedo M.D.\.br\Date and Time Co-Signed: 07/09/24 07:05 EST ABO/Rh History Checkon 07-08 ABO/Rh History Check Patient discharged prior Normal [facility] Comment on above: Performed By: #### 1 [id number] #### [facility] [address] [place] [address] CT Abdomen/Pelvis w/ Contras ton 07-08-2024 CT [...] 300 Contrast amount in ml's: [address] [facility] CT Chest w/ Contraston 07-08 CT Chest [...] Contrast amount in ml's: 130 Normal [facility] CT Head or Brain w/o Contras ton [...] MD Transcribed by: JOSH Technologist: YONIS Normal [facility] CT Spine Cervical w/o Contra ston 07-08-2024 [...] MD Transcribed by: JOSH Technologist: YONIS Normal [facility] ABO/Rhon 07-07-2024 ABO/Rh Positive Invalid Interpretation Code [facility] Comment on above: Performed By: #### 2 [id number] #### [facility] [address] [place] [address] ABSCon 07-07-2024 ABSC Gel Interp Negative Normal [facility] Comment on above: Performed By: #### 1 [id number] #### [facility] [address] [place] [address] B hCG Qualon 07-07-2024 Beta HCG ( test) Ql Negative Normal [facility] Comment on above: Performed By: #### 2 [id number] #### [facility] [address] [place] [address] BLOOD BANKOrdered By: Willard ahn Timo on 07-07-2024 ABO/Rh Interp Positive Invalid Interpretation Code [facility] BB Subsection ABSC Gel Interp Negative (07/07/24 6:48 PM) Normal [facility] BB Subsection BMPon 07-07-2024 Anion gap [Moles/Vol] 11 mmol/L Normal 6-16 [facility] Comment on above: Performed By: #### 2 [id number] #### [facility] [address] [place] [address] Calcium [Mass/Vol] 9.1 mg/dL Normal 8.9-11.1 [facility] Comment on above: Performed By: #### 2 932998 #### [facility] [address] [place] [address] Chloride [Moles/Vol] 104 mmol/L Normal 101-111 [facility] Comment on above: Performed By: #### 2 [id number] #### [facility] [address] [place] [address] CO2 [Moles/Vol] 26 mmol/L Normal 21-31 [facility] Comment on above: Performed By: #### 2 [id number] #### [facility] [address] [place] [address] Creatinine [Mass/Vol] 1.8 mg/dL High 0.5-1.3 [facility] Comment on above: Performed By: #### 2 [id number] #### [facility] [address] [place] [address] Glucose [Mass/Vol] 154 mg/dL Normal 55-199 [facility] Comment on above: Performed By: #### 2 491126 #### [facility] [address] [place] [address] Potassium [Moles/Vol] 3.6 mmol/L Normal 3.5-5.3 [facility] Comment on above: Performed By: #### 2 800696 #### [facility] [address] [place] [address] Sodium [Moles/Vol] 137 mmol/L Normal 135-145 [facility] Comment on above: Performed By: #### 2 [id number] #### [facility] [address] [place] [address] Urea nitrogen [Mass/Vol] 23 mg/dL High - [facility] Comment on above: Performed By: #### 2 [id number] #### [facility] [address] [place] [address] Urea nitrogen/Creatinine [Mass ratio] 13 No Units Normal - [facility] Comment on above: Performed By: #### 2 [id number] #### [facility] [address] [place] [address] Blood Bank ID#on 07-07-2024 BBID# [id number] Invalid Interpretation Code [facility] Comment on above: Performed By: #### 1 [id number] #### [facility] [address] [place] [address] CBC w/ Auto Diffon 4 Basophils/100 WBC (Bld) 0.6 % Normal 0.0-2.0 [facility] Comment on above: Result Comment: Amy ection date/time has been modified to: 18:23:00. Previous collection date/time: 18:45:00. Performed By: #### 2 [id number] #### [facility] [address] [place] [address] Basophils/Leukocytes Auto (Bld) [Pure # fraction] 0.1 E9/L Normal 0.0-0.2 [facility] Comment on above: Result Comment: Amy ection date/time has been modified to: 18:23:00. Previous collection date/time: 18:45:00. Performed By: #### 2 838712 #### [facility] [address] [place] [address] Eosinophils (Bld) [#/Vol] 0.3 E9/L Normal 0.0-0.5 [facility] Comment on above: Result Comment: Amy ection date/time has been modified to: 18:23:00. Previous collection date/time: 18:45:00. Performed By: #### 2 165765 #### [facility] [address] [place] [address] Eosinophils/100 WBC (Bld) 3.1 % Normal 0.0-8.0 [facility] Comment on above: Result Comment: Amy ection date/time has been modified to: 18:23:00. Previous collection date/time: 18:45:00. Performed By: #### 2 477127 #### [facility] [address] [place] [address] Erythrocyte distribution width (RBC) [Ratio] 15.1 % High 10.9-14.2 [facility] Comment on above: Result Comment: Amy ection date/time has been modified to: 18:23:00. Previous collection date/time: 18:45:00. Performed By: #### 2 133819 #### [facility] [address] [place] [address] Hematocrit (Bld) [Volume fraction] 38.3 % Normal 34.0-46.0 [facility] Comment on above: Result Comment: Amy ection date/time has been modified to: 18:23:00. Previous collection date/time: 18:45:00. Performed By: #### 2 699282 #### [facility] [address] [place] [address] Hemoglobin (Bld) [Mass/Vol] 12.7 g/dL Normal 12.0-16.0 [facility] Comment on above: Result Comment: Amy ection date/time has been modified to: 18:23:00. Previous collection date/time: 18:45:00. Performed By: #### 2 404547 #### [facility] [address] [place] [address] Lymphocytes (Bld) [#/Vol] 2.4 E9/L Normal 1.0-4.0 [facility] Comment on above: Result Comment: Amy ection date/time has been modified to: 18:23:00. Previous collection date/time: 18:45:00. Performed By: #### 2 853127 #### [facility] [address] [place] [address] Lymphocytes/100 WBC (Bld) 26.6 % Normal 14.0-50.0 [facility] Comment on above: Result Comment: Amy ection date/time has been modified to: 18:23:00. Previous collection date/time: 18:45:00. Performed By: #### 2 810129 #### [facility] [address] [place] [address] MCH (RBC) [Entitic mass] 29.9 pg Normal 27.0-34.0 [facility] Comment on above: Result Comment: Amy ection date/time has been modified to: 18:23:00. Previous collection date/time: 18:45:00. Performed By: #### 2 [id number] #### [facility] [address] [place] [address] MCHC (RBC) [Mass/Vol] 33.1 g/dL Normal 31.4-36.0 [facility] Comment on above: Result Comment: Amy ection date/time has been modified to: 18:23:00. Previous collection date/time: 18:45:00. Performed By: #### 2 [id number] #### [facility] [address] [place] [address] MCV (RBC) [Entitic vol] 90.2 fL Normal 80.0-100.0 [facility] Comment on above: Result Comment: Amy ection date/time has been modified to: 18:23:00. Previous collection date/time: 18:45:00. Performed By: #### 2 253301 #### [facility] [address] [place] [address] Monocytes (Bld) [#/Vol] 0.5 E9/L Normal 0.2-1.0 [facility] Comment on above: Result Comment: Amy ection date/time has been modified to: 18:23:00. Previous collection date/time: 18:45:00. Performed By: #### 2 565956 #### [facility] [address] [place] [address] Neutrophils (Bld) [#/Vol] 5.8 E9/L Normal 2.0-7.5 [facility] Comment on above: Result Comment: Amy ection date/time has been modified to: 18:23:00. Previous collection date/time: 18:45:00. Performed By: #### 2 493476 #### [facility] [address] [place] [address] Neutrophils/100 WBC (Bld) 64.2 % Normal 36.0-75.0 [facility] Comment on above: Result Comment: Amy ection date/time has been modified to: 18:23:00. Previous collection date/time: 18:45:00. Performed By: #### 2 971166 #### [facility] [address] [place] [address] Platelet mean volume (Bld) [Entitic vol] 10.1 fL Normal 6.4-10.8 [facility] Comment on above: Result Comment: Amy ection date/time has been modified to: 18:23:00. Previous collection date/time: 18:45:00. Performed By: #### 2 932900 #### [facility] [address] [place] [address] Platelets (Bld) [#/Vol] 183.0 E9/L Normal 150.0-500.0 [facility] Comment on above: Result Comment: Amy ection date/time has been modified to: 18:23:00. Previous collection date/time: 18:45:00. Performed By: #### 2 [id number] #### [facility] [address] [place] [address] RBC (Bld) [#/Vol] 4.2 E12/L Low 4.3-5.9 [facility] Comment on above: Result Comment: Amy ection date/time has been modified to: 18:23:00. Previous collection date/time: 18:45:00. Performed By: #### 2 [id number] #### [facility] [address] [place] [address] WBC corrected for nucl RBC Auto (Bld) [#/Vol] 9.1 E9/L Normal 4.0-11.0 [facility] Comment on above: Result Comment: Amy ection date/time has been modified to: 18:23:00. Previous collection date/time: 18:45:00. Performed By: #### 2 [id number] #### [facility] [address] [place] [address] Basophils/100 WBC (Bld) 0.6 % Normal 0.0-2.0 [facility] Comment on above: Performed By: #### 2 [id number] #### [facility] [address] [place] [address] Basophils/Leukocytes Auto (Bld) [Pure # fraction] 0.1 E9/L Normal 0.0-0.2 [facility] Comment on above: Performed By: #### 2 739888 #### [facility] [address] [place] [address] Eosinophils (Bld) [#/Vol] 0.3 E9/L Normal 0.0-0.5 [facility] Comment on above: Performed By: #### 2 165546 #### [facility] [address] [place] [address] Eosinophils/100 WBC (Bld) 3.1 % Normal 0.0-8.0 [facility] Comment on above: Performed By: #### 2 029113 #### [facility] [address] [place] [address] Erythrocyte distribution width (RBC) [Ratio] 15.1 % High 10.9-14.2 [facility] Comment on above: Performed By: #### 2 812546 #### [facility] [address] [place] [address] Hematocrit (Bld) [Volume fraction] 38.3 % Normal 34.0-46.0 [facility] Comment on above: Performed By: #### 2 364077 #### [facility] [address] [place] [address] Hemoglobin (Bld) [Mass/Vol] 12.7 g/dL Normal 12.0-16.0 [facility] Comment on above: Performed By: #### 2 119897 #### [facility] [address] [place] [address] Lymphocytes (Bld) [#/Vol] 2.4 E9/L Normal 1.0-4.0 [facility] Comment on above: Performed By: #### 2 328496 #### [facility] [address] [place] [address] Lymphocytes/100 WBC (Bld) 26.6 % Normal 14.0-50.0 [facility] Comment on above: Performed By: #### 2 [id number] #### [facility] [address] [place] [address] MCH (RBC) [Entitic mass] 29.9 pg Normal 27.0-34.0 [facility] Comment on above: Performed By: #### 2 203911 #### [facility] [address] [place] [address] MCHC (RBC) [Mass/Vol] 33.1 g/dL Normal 31.4-36.0 [facility] Comment on above: Performed By: #### 2 376037 #### [facility] [address] [place] [address] MCV (RBC) [Entitic vol] 90.2 fL Normal 80.0-100.0 [facility] Comment on above: Performed By: #### 2 260132 #### [facility] [address] [place] [address] Monocytes (Bld) [#/Vol] 0.5 E9/L Normal 0.2-1.0 [facility] Comment on above: Performed By: #### 2 483249 #### [facility] [address] [place] [address] Neutrophils (Bld) [#/Vol] 5.8 E9/L Normal 2.0-7.5 [facility] Comment on above: Performed By: #### 2 584752 #### [facility] [address] [place] [address] Neutrophils/100 WBC (Bld) 64.2 % Normal 36.0-75.0 [facility] Comment on above: Performed By: #### 2 740589 #### [facility] [address] [place] [address] Platelet mean volume (Bld) [Entitic vol] 10.1 fL Normal 6.4-10.8 [facility] Comment on above: Performed By: #### 2 882761 #### [facility] [address] [place] [address] Platelets (Bld) [#/Vol] 183.0 E9/L Normal 150.0-500.0 [facility] Comment on above: Performed By: #### 2 189573 #### [facility] [address] [place] [address] RBC (Bld) [#/Vol] 4.2 E12/L Low 4.3-5.9 [facility] Comment on above: Performed By: #### 2 913105 #### [facility] [address] [place] [address] WBC corrected for nucl RBC Auto (Bld) [#/Vol] 9.1 E9/L Normal 4.0-11.0 [facility] Comment on above: Performed By: #### 2 877387 #### [facility] [address] [place] [address] CHEMISTRYOrdered By: SYSTEM SYSTEM on 07-07-2024 Amphetamines [...] Total CK 149 Int._Unit/L Normal 14-[address] [facility] Comment on above: Performed By: #### 2 944112 #### [facility] [address] [place] [address] COAGULATIONOrdered By: Leslie Chavez on 07-07-2024 aPTT [...] 2023 ED Clinical Summary ED Clinical Summary [address] [id number] ED Clinical Summary Person Information Name: VIRGEN GONZALES [facility] Age: 68 Years : 1955 Sex: Female Language: Mongolian PCP: AGGIE DAVIS CNP Marital Status: Visit [...] 22:29:17 07/07/2024 22:29:17 ADDRESS: [id number] [place] [id number] PHYS DOC NOTES: MEDICAL INFORMATION: Prescriptions Given: New Medications [facility] 1987, [address] [place], [place] [id number], [phone] cephalexin (cephalexin 500 mg Cap) 1 Capsules [...] EDUCATION INFORMATION: Instructions: Urinary Tract Infection, Adult, Vcsz-rb-Egha; Syncope, Adult, Uyni-pu-Eczi; Head Injury, Adult, Zdwu-eb-Mmpp; Contusion, Dvze-pn-Afwo Follow up: With: Address: When: AGGIE DAVIS [address] [phone] Business (more content not included)... Normal [facility] ED Patient Summaryon 024 ED Patient Summary ED Patient Summary [place] [id number] Patient Discharge Instructions Person Information Name: VIRGEN GONZALES Age: 68 Years Arrival Date: 07/07/2024 18:16:48 Discharge Diagnosis: 1:Contusion of occipital region of scalp; 2:Syncope and collapse; 3:Acute lower urinary tract infection Primary Care Physician: AGGIE DAVIS CNP Provider Information Primary Provider: Tiny Fallon DO [employer] Preparator:None The exam and treatment you received in the Emergency Department were for an urgent problem and are not intended as complete care. It is important that you follow up with a doctor, nurse practitioner, or physician???s medical assistant supervisor for ongoing care. If your symptoms become [...] Address: When: AGGIE [address] [place] [phone] Business (1) In 3 days 07/10/2024 In the event that this physician does not participate in your insurance network, please consult with your insurance company to find a nearby participating provider. Patient Education Materials: Urinary Tract Infection, Adult, Qcga-jl-Ycwi; Syncope, Adult, Zxuf-pp-Rhyi; Head Injury, Adult, Klsv-gi-Vwrw; Contusion, Nodo-kb-Gbok A MESSAGE TO ALL PATIENTS REGARDING OPIOIDS PRESCRIPTION OPIOIDS: WHAT YOU NEED TO KNOW Prescription opioids can be used to help relieve rvxapahy-cc-ytzfeh pain and are often prescribed following a [...] (www.fda.gov/Drugs/Res ourcesFo (more content not included)... Normal [facility] Ethanolon 07-07-2024 Ethanol Lvl <10 Normal <=11 [facility] Comment on above: Performed By: #### 2 [id number] #### [facility] [address] [place] [address] HEMATOLOGYOrdered By: SYSTEM SYSTEM on 07-07-2024 Basophils/100 [...] 07-07-2024 Albumin [Mass/Vol] 3.9 g/dL Normal 3.3-5.0 [facility] Comment on above: Performed By: #### 2 527181 #### [facility] [address] [place] [address] Albumin/Globulin (S) [Mass conc ratio] 1.4 Normal 1.1-2.2 [facility] Comment on above: Performed By: #### 2 354631 #### [facility] [address] [place] [address] ALP [Catalytic activity/Vol] 112 Int._Unit/L High 21-98 [facility] Comment on above: Performed By: #### 2 026713 #### [facility] [address] [place] [address] ALT No additional P-5'-P [Catalytic activity/Vol] 11 Int._Unit/L Normal 6-46 [facility] Comment on above: Performed By: #### 2 576133 #### [facility] [address] [place] [address] AST [Catalytic activity/Vol] 13 Int._Unit/L Normal 5-43 [facility] Comment on above: Performed By: #### 2 146581 #### [facility] [address] [place] [address] Bilirubin [Mass/Vol] 0.4 mg/dL Normal 0.0-1.1 [facility] Comment on above: Performed By: #### 2 393298 #### [facility] [address] [place] [address] Bilirubin.direct [Mass/Vol] 0.1 mg/dL Normal 0.0-0.4 [facility] Comment on above: Performed By: #### 2 709758 #### [facility] [address] [place] [address] Bilirubin.indirect [Mass or moles/Vol] 0.3 mg/dL Normal 0.1-0.9 [facility] Comment on above: Performed By: #### 2 392693 #### [facility] [address] [place] [address] Globulin (S) [Mass/Vol] 2.8 g/dL Normal 1.4-4.0 [facility] Comment on above: Performed By: #### 2 577603 #### [facility] [address] [place] [address] Protein [Mass/Vol] 6.7 g/dL Normal 6.0-7.8 [facility] Comment on above: Performed By: #### 2 863403 #### [facility] [address] [place] [address] Lactic Acidon 07-07-2024 Lactic Acid Lvl 0.9 mmol/L Normal 0.5-2.2 [facility] Comment on above: Performed By: #### 2 177657 #### [facility] [address] [place] [address] Lipase Levelon 07-07-2024 Lipase [Catalytic activity/Vol] 22 U/L Normal 13-58 [facility] Comment on above: Performed By: #### 2 397514 #### [facility] [address] [place] [address] Magnesiumon 07-07-2024 Magnesium [Mass/Vol] 2.2 mg/dL Normal 1.3-2.4 [facility] Comment on above: Performed By: #### 2 116011 #### [facility] [address] [place] [address] Myoglobinon 07-07-2024 Myoglobin [Mass/Vol] 128 ng/mL High <=69 [facility] Comment on above: Performed By: #### 2 817276 #### [facility] [address] [place] [address] PT & PTTon 07-07-2024 aPTT Coag (PPP) [Time] 31.1 second(s) Normal 25.1-36.5 [facility] Comment on above: Result Comment: Para meter [...] - 109.0 sec. Performed By: #### 1 [id number] #### [facility] [address] [place] [address] INR Coag (PPP) [Relative time] 0.92 {INR} Invalid Interpretation Code [facility] Comment on above: Result Comment: INR results are specifically intended to assess patients stabilized on long-term Anticoagulation therapy suggested INR???s ???Less Intensive Anticoagulation??? 2.0 ??? 3.0 Conventional Range 3.0 ??? 4.5 Performed By: #### 1 [id number] #### [facility] [address] [place] [address] PT Coag (PPP) [Time] 10.3 second(s) Normal 9.4-12.5 [facility] Comment on above: Result Comment: 15 d [...] no normal ranges. Performed By: #### 1 [id number] #### [facility] [address] [place] [address] SEROLOGYOrdered By: Gerri Chavez on 07-07-2024 Beta HCG ( test) Ql Negative (07/07/24 6:23 PM) Normal [facility] Man Sero Troponinon 07-07-2024 Troponin HS 10.70 pg/mL Normal 10.10-27.10 [facility] Comment on above: Result Comment: The 95% CI (Confidence Interval) PPV (Positive Predictive Value) for myocardial infarction in females is 38 pg/mL, in males 51 pg/mL. The results should be used in conjunction with clinical conditions of myocardial infarction. (Access High Sensitivity Troponin I Instructions For Use, Lalito Tucker, February 2018) Performed By: #### 2 [id number] #### [facility] [address] [place] [address] U Drug Screenon 07-07-2024 Amphetamines Screen method >1000 ng/mL Ql (U) Negative Normal NEGATIVE [facility] Comment on above: Result Comment: Nega tive Cutoff: <1000 ng/mL Performed By: #### 2 [id number] #### [facility] [address] [place] [address] Barbiturates Screen Ql (U) Negative Normal NEGATIVE [facility] Comment on above: Result Comment: Nega tive Cutoff: <200 ng/mL Performed By: #### 2 [id number] #### [facility] [address] [place] [address] Benzodiazepines Ql (U) Negative Normal NEGATIVE [facility] Comment on above: Result Comment: Nega tive Cutoff: <200 ng/mL Performed By: #### 2 [id number] #### [facility] [address] [place] [address] Cannabinoids Screen Ql (U) Negative Normal NEGATIVE [facility] Comment on above: Result Comment: Nega tive Cutoff: <50 ng/mL Performed By: #### 2 [id number] #### [facility] [address] [place] [address] Cocaine Ql (U) Negative Normal NEGATIVE [facility] Comment on above: Result Comment: Nega tive Cutoff: <300 ng/mL Performed By: #### 2 [id number] #### [facility] [address] [place] [address] Opiates Screen Ql (U) Negative Normal NEGATIVE [facility] Comment on above: Result Comment: Nega tive Cutoff: <300 ng/mL Performed By: #### 2 [id number] #### [facility] [address] [place] [address] Phencyclidine Screen method >25 ng/mL Ql (U) Negative Normal NEGATIVE [facility] Comment on above: Result Comment: Nega tive Cutoff: <25 ng/mL These drug screen results are to be used for medical (i.e., treatment) purposes only. Unconfirmed drug screening results must not be used for non-medical purposes (e.g., employment testing, legal testing). Performed By: #### 2 [id number] #### [facility] [address] [place] [address] U Fentanyl Negative Normal NEGATIVE [facility] Comment on above: Result Comment: Nega tive Cutoff: <5 ng/mL These drug screen results are to be used for medical (i.e., treatment) purposes only. Unconfirmed drug screening results must not be used for non-medical purposes (e.g., employment testing, legal testing). Performed By: #### 2 [id number] #### [facility] [address] [place] [address] UA with Cult Rflxon 07-07-20 24 Bacteria Auto Ql (U) 1+ /HPF Abnormal Trace [facility] Comment on above: Performed By: #### 4 [id number] #### [facility] [address] [place] [address] Bilirubin Ql (U) Negative Normal Negative [facility] Comment on above: Performed By: #### 4 [id number] #### [facility] [address] [place] [address] Clarity (U) Ex.Turbid Abnormal Clear [facility] Comment on above: Performed By: #### 4 [id number] #### [facility] [address] [place] [address] Color (U) Light-Moore Abnormal Yellow [facility] Comment on above: Result Comment: Micr oscopic readings are only performed on those samples that meet specific criteria set forth by [facility]. Performed By: #### 4 [id number] #### [facility] [address] [place] [address] Epithelial cells.squamous Auto (Urine sed) [#/Area] >[address] [facility] Comment on above: Performed By: #### 4 [id number] #### [facility] [address] [place] [address] Glucose Ql (U) 4+ mg/dL Abnormal Negative [facility] Comment on above: Performed By: #### 4 [id number] #### [facility] [address] [place] [address] Hemoglobin Auto test strip (U) [Mass/Vol] 1+ mg/dL Abnormal Negative [facility] Comment on above: Performed By: #### 4 [id number] #### [facility] [address] [place] [address] Ketones Auto test strip Ql (U) Negative Normal Negative [facility] Comment on above: Performed By: #### 4 [id number] #### [facility] [address] [place] [address] Leukocyte esterase Auto test strip Ql (U) 500 Isidoro/uL Abnormal Negative [facility] Comment on above: Performed By: #### 4 [id number] #### [facility] [address] [place] [address] Mucus Auto Ql (U) Negative Normal Negative [facility] Comment on above: Performed By: #### 4 [id number] #### [facility] [address] [place] [address] Nitrite Auto test strip Ql (U) Negative Normal Negative [facility] Comment on above: Performed By: #### 4 [id number] #### [facility] [address] [place] [address] pH (U) 6.5 [pH] Invalid Interpretation Code 5.0-9.0 [facility] Comment on above: Performed By: #### 4 [id number] #### [facility] [address] [place] [address] Protein Ql (U) Trace Abnormal Negative [facility] Comment on above: Performed By: #### 4 [id number] #### [facility] [address] [place] [address] RBC Ql (U) 31-75 Abnormal 0-3 [facility] Comment on above: Performed By: #### 4 [id number] #### [facility] [address] [place] [address] Specific gravity (U) [Rel density] 1.019 Invalid Interpretation Code 1.005-1.030 [facility] Comment on above: Performed By: #### 4 [id number] #### [facility] [address] [place] [id number] Urobilinogen (U) [Mass/Vol] Negative Normal Negative [facility] Comment on above: Performed By: #### 4 [id number] #### [facility] [address] [place] [address] WBC Auto (Urine sed) [#/Area] 31-75 Abnormal 0-5 [facility] Comment on above: Performed By: #### 4 [id number] #### [facility] [address] [id number] Yeast.budding Computer assisted Ql (U) Trace Abnormal [facility] Comment on above: Performed By: #### 4 [id number] #### [facility] [address] [id number] Type of Urine collection method Clean Catch Normal [facility] Comment on above: Performed By: #### 4 [id number] #### [facility] [address] [place] [address] URINALYSISOrdered By: SYSTEM SYSTEM on 07-07-2024 Bacteria Auto Ql (U) 1+ /HPF Invalid Interpretation Code Trace/HPF [facility] UA Auto SS Bilirubin Ql (U) Negative Normal Negativemg/ d L [facility] UA Auto SS Clarity (U) Ex.Turbid *ABN* (07/07/24 7:41 PM) Invalid Interpretation Code Clear [facility] UA Auto SS Color (U) Light-Moore 3 *ABN* (07/07/24 7:41 PM) Invalid Interpretation Code Yellow [facility] UA Auto SS Comment on above: Interpretive Data: M icroscopic readings are only performed on those samples that meet specific criteria set forth by [facility]. Epithelial cells.squamous Auto (Urine sed) [#/Area] [...] 07-07-2024 eGFR 30 mL/min/1.73 m2 Low >=59 [facility] Comment on above: Performed By: #### 1 [id number] #### [facility] [address] [place] [address] Kobe 04-13-2024 L Specimen: [id number] Received: 04/15/24 Status: ANIRUDH Req Num: [id number] Spec Type: Cytology Subm Dr: Da Phillip DO Tissues: A FNA SLIDES NOPATH (RT THYR) B FNA SLIDES NOPATH (THY ISTHM) Procedures: Cyto Int and Re/2, PAPSTN/22 Age/ Patient Sex Location Account Attending Physician Virgen Gonzales 68/F [place] [id number] Da Phillip DO SPEC NUM: [id number] RECD: 04/15/24 STATUS: ANIRUDH REQ NUM: [id number] AMY: 04/13/24 [facility] DR: Da Phillip DO ENTERED: 04/15/24 [facility] DR: SPEC TYPE: Cytology DEPT: CNG ENTERED BY: [id number] RECV BY: [id number] ORDERED: Cyto Int and Re/2, PAPSTN/22 ORDERED: [...] 1 Entered: 05/11/24-1009 Supplemental for findings [facility] [employer]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: -[employer] -Benign (risk of malignancy 4%) ---- Specimen: [id number] Received: 04/15/24 Status: ANIRUDH Navarro Num: [id number] Spec Type: Cytology Subm Dr: Da Phillip DO Tissues: A FNA SLIDES NOPATH (RT THYR) B FNA SLIDES NOPATH (THY ISTHM) Procedures: Cyto Int and Re/2, PAPSTN/22 ---- Patient: Virgen Gonzales [id number] (Continued) ---- Specimen: [id number] Received: 04/15/24 (Continued) Supplemental Report (Continued) Signed (signature on file) Noemy De Los Santos MD 04/21/24 1010 ---- Specimen: [id number] Received: 04/15/24 Status: ANIRUDH Navarro Num: [id number] Spec Type: Cytology Subm Dr: Da Phillip DO Tissues: A FNA SLIDES NOPATH (RT THYR) B FNA SLIDES NOPATH (THY ISTHM) Procedures: Cyto Int and Re/2, PAPSTN/22 ---- Patient: BinduLitzyNathalieVirgen [id number] (Continued) ---- Specimen: [id number] Received: 04/15/24-1244 (Continued) Supplemental Report (Continued) -Xpression [place] -N/A -Other Classifiers -BRAF: Negative -RET/PTC1: Not [...] atypia of undetermined significance, the category 3 Angela system -Pending additional molecular triage study to follow B, instruments thyroid nodule, FNA cytology: -A few follicular cells are present in combined smears, including occasional small and/or loose follicular groups, adequately for assessment, often showing small round to ovoid nuclei, consistent with the category 2 Angela system: Benign ---- Specimen: [id number] Received: 04/15/24 Status: ANIRUDH Navarro Num: [id number] Spec Type: Cytology Subm Dr: Da Phillip,DO Tissues: A FNA SLIDES NOPATH (RT THYR) B FNA SLIDES NOPATH (THY ISTHM) Procedures: Cyto Int and Re/2, PAPSTN/22 ---- Patient: Virgen Gonzales [id number] (Continued) ---- Specimen: [id number] Received: 04/15/24 (Continued) Signed (signature on file) ChinBuzz De Los Santos MD 04/21/24 1010 ---- Specimen: [id number] Received: 04/15/24-1243 Status: ANIRUDH Navarro Num: [id number] Spec Type: Cytology Subm Dr: Da Phillip,DO Tissues: A FNA SLIDES NOPATH (RT THYR) B FNA SLIDES N (more content not included)... Normal [facility] Thyrotropin [Units/volume] i n Serum or PlasmaOrdered By: Da Phillip on 03-26-2024 TSH Qn 1.31 m[IU]/L Normal 0.45-5.33 [facility] Comment on above: Result Comment: PERF ORMED BY: [place] [address] PATHOLOGIST [employer] JENNIFER HERNANDEZ M.D. Performed By: #### T 3T, T4T, TSH3 #### [address] Thyroxine (T4) [Mass/volume] in Serum or PlasmaOrdered By: Da Phillip on 03-26-2024 T4 [Mass/Vol] 9.37 ug/dL Normal 5.39-11.82 [facility] Comment on above: Performed By: #### T 3T, T4T, TSH3 #### [facility] [address] [place] [address] Triiodothyronine (T3) Totalo n 03-26-2024 Triiodothyronine (T3) Total 0.90 ng/mL Normal 0.87-1.78 [facility] Comment on above: Performed By: #### T 3T, T4T, TSH3 #### [address] Triiodothyronine (T3) [Mass/ volume] in Serum or PlasmaOrdered By: Da Phillip on 03-26-2024 T3 [Mass/Vol] 0.90 ng/mL 0.87-1.78 [facility] Kobe 02-14-2024 L Specimen: [id number] Received: 02/17/24 Status: SOULyudmila Req Num: [id number] Spec Type: Cytology Subm Dr: Aggie Davis CNP Tissues: A FNA SLIDES NOPATH (RT THYROID NOD) B FNA SLIDES NOPATH (ISTHMUS THY) Procedures: Cyto Int and Re/2, PAPSTN/10 Age/ Patient Sex Location Account Attending Physician Virgen Gonzales 68/F [place] [id number] Aggie Davis CNP SPEC NUM: [id number] RECD: 02/17/24 STATUS: ANIRUDH REQ NUM: [id number] AMY: 02/14/24 DR: Aggie Davis CNP ENTERED: 02/17/[address]: [place],Lab Becky Avilez MD SPEC TYPE: Cytology DEPT: POP NCRADHA ENTERED BY: [id number] RECV BY: [id number] ORDERED: Cyto Int and Re/2, PAPSTN/10 ORDERED: Cyto Int and Re/2, PAPSTN/10 Pathological Diagnosis A. Right thyroid,?fine needle aspiration:? Suspicious for follicular neoplasm, Atypical Follicular Cells With Abundant Colloid. Angela Category IV B. Isthmus, fine needle aspiration:? Unsatisfactory for evaluation. Too few epithelial cells. Angela?Category?I Clinical Information Thyroid Nodules Gross Description A. (RIGHT) Received fixed in Cytolyt is <1 ml very pale pink clear fluid for cytology said to have been obtained as right thyroid nodule-mid . ThinPrep preparations are prepared for microscopic examination. Also received are 4 spray fixed smeared slides to be stained pap aa Veracyte vial stored at -20 for microscopic examination.(CT/ne) B. (ISTHMUS) Received fixed in Cytolyt is (1 ml pink clear fluid for cytology said to have ---- Specimen: [id number] Received: 02/17/24 Status: ANIRUDH Navarro Num: [id number] Spec Type: Cytology Subm Dr: Aggie Davis CNP Tissues: A FNA SLIDES NOPATH (RT THYROID NOD) B FNA SLIDES NOPATH (ISTHMUS THY) Procedures: Cyto Int and Re/2, PAPSTN/10 ---- Patient: Virgen Gonzales [id number] (Continued) ---- Specimen: [id number] Received: 02/17/24 (Continued) Gross Description (Continued) Signed (signature on file) Nishant Morley MD 02/19/24 1428 ---- Specimen: [id number] Received: 02/17/24 Status: ANIRUDH Navarro Num: [id number] Spec Type: Cytology Subm Dr: Aggie Davis CNP Tissues: A FNA SLIDES NOPATH (RT THYROID NOD) B FNA SLIDES NOPATH (ISTHMUS THY) Procedures: Cyto Int and Re/2, PAPSTN/10 ---- Patient: JanetVirgen Ramiro [id number] (Continued) ---- Specimen: [id number] Received: 02/17/24 (Continued) Gross Description (Continued) been obtained as Isthmus thyroid nodule. ThinPrep preparations are prepared for microscopic examination. Also received are 4 spray fixed smeared smeared slides to be stained pap and a Veracyte vial stored at -20 for microscopic examination.(CT/ne) CPT Codes 27190h3 ---- ---- Specimen: [id number] Received: 02/17/24-1323 Status: ANIRUDH Navarro Num: [id number] Spec Type: Cytology Subm Dr: Aggie Davis, [employer]ALE[employer] ATTENDANT Tissues: A FNA SLIDES NOPATH (RT THYROID NOD) B FNA SLIDES NOPATH (ISTHMUS THY) Procedures: Cyto Int and Re/2, PAPSTN/10 ---- Patient: Virgen Gonzales [id number] (Continued) ---- Signed (signature on file) Nishant Morley MD 02/19/24 8610 Normal [facility] Nonvisit Note - PTon 024 Nonvisit Note - PT Pt cancelled reassessment due to being sick. JANICE Normal [facility] Nonvisit Note - PTon 024 Nonvisit Note - PT Pt no showed for [address] [facility] Nonvisit Note - PTon 024 Nonvisit Note - PT Pt called to cancel as she is ill. Normal [facility] Consent for Treatmenton 10-28 Consent for Treatment [id number] [id number]#1.[address] [facility] PT - Assessmentson PT - Assessments [id number] 22 [id number]#1.[address] [facility] PT - Consentson 11-19-2023 PT - Consents [id number] 22 [id number]#1.[address] [facility] Insurance Correspondenceon 0 11-12-2023 Insurance Correspondence [id number]#1. 00TIFF Normal [facility] PT - Orderson 11-11-2023 PT - Orders [id number] 01 [id number]#1. 00TIFF Normal [facility] L Inj/Asp: L kneeon 08-27-19 24 Sue Berrymelony ARR T 09/02/2023 8:37 AM L Inj/Asp: L knee on 08/27/2023 3:43 PM Indications: pain Details: 21 G needle, lateral approach Medications: 16 mg hylan 16 MG/2ML Consent was given by the patient. [facility] PROF 14(COMP METB)on 023 Albumin [Mass/Vol] 3.2 g/dL Critically low 3.4-5.0 [facility] Comment on above: Performed By: #### T SH, CMP, T7, LIPID #### [facility] [address] [place] [address] Dr. Danay De Los Santos Albumin/Globulin [Mass ratio] 1.0 {ratio} Normal [facility] Comment on above: Performed By: #### T SH, CMP, T7, LIPID #### [facility] [address] [address] [address] Danay De Los Santos ALP [Catalytic activity/Vol] 92 U/L Normal 46-116 [facility] Comment on above: Performed By: #### T SH, CMP, T7, LIPID #### [facility] [address] [address] [address] Danay De Los Santos ALT [Catalytic activity/Vol] 21 U/L Normal 14-59 [facility] Comment on above: Performed By: #### T SH, CMP, T7, LIPID #### [facility] [address] [address] [address] Danay De Los Santos Anion gap [Moles/Vol] 13.2 mmol/L Normal [facility] Comment on above: Performed By: #### T SH, CMP, T7, LIPID #### [facility] [address] [address] [address] Danay De Los Santos AST [Catalytic activity/Vol] 14 U/L Critically low 15-37 [facility] Comment on above: Performed By: #### T SH, CMP, T7, LIPID #### [facility] [address] [address] [address] Danay De Los Santos Bilirubin [Mass/Vol] 0.2 mg/dL Normal 0.2-1.0 [facility] Comment on above: Performed By: #### T SH, CMP, T7, LIPID #### [facility] [address] [address] [address] Danay De Los Santos Calcium [Mass/Vol] 8.6 mg/dL Normal 8.5-10.1 [facility] Comment on above: Performed By: #### T SH, CMP, T7, LIPID #### [facility] [address] [address] [address] Danay De Los Santos Chloride [Moles/Vol] 105 mmol/L Normal 98-107 [facility] Comment on above: Performed By: #### T SH, CMP, T7, LIPID #### [facility] [address] [address] [address] Danay De Los Santos CO2 [Moles/Vol] 27.9 mmol/L Normal 21.0-32.0 [facility] Comment on above: Performed By: #### T SH, CMP, T7, LIPID #### [facility] [address] [address] [address] Danay De Los Santos Creatinine [Mass/Vol] 1.47 mg/dL Critically high 0.55-1.02 [facility] Comment on above: Performed By: #### T SH, CMP, T7, LIPID #### [facility] [address] [place] [address] Dr. Danay De Los Santos EGFR-AF DUTCH 43 mL/min/1.73m2 Critically low >=60 [facility] Comment on above: Performed By: #### T SH, CMP, T7, LIPID #### [facility] [address] [place] [address] Dr. Danay De Los Santos EGFR-NON AF DUTCH 35 mL/min/1.73m2 Critically low >=60 [facility] Comment on above: Performed By: #### T SH, CMP, T7, LIPID #### [facility] [address] [place] [address] Dr. Danay De Los Santos Globulin (S) [Mass/Vol] 3.3 g/dL Normal [facility] Comment on above: Performed By: #### T SH, CMP, T7, LIPID #### [facility] [address] [place] [address] Dr. Danay De Los Santos Glucose [Mass/Vol] 145 mg/dL Critically high 74-106 [facility] Comment on above: Performed By: #### T SH, CMP, T7, LIPID #### [facility] [address] [place] [address] Dr. Danay De Los Santos Potassium [Moles/Vol] 4.1 mmol/L Normal 3.5-5.1 [facility] Comment on above: Performed By: #### T SH, CMP, T7, LIPID #### [facility] [address] [place] [address] Dr. Danay De Los Santos Protein [Mass/Vol] 6.5 g/dL Normal 6.4-8.2 [facility] Comment on above: Performed By: #### T SH, CMP, T7, LIPID #### [facility] [address] [place] [address] Dr. Danay De Los Santos Sodium [Moles/Vol] 142 mmol/L Normal 136-145 [facility] Comment on above: Performed By: #### T SH, CMP, T7, LIPID #### [facility] [address] [address] [address] Danay De Los Santos Urea nitrogen [Mass/Vol] 22.0 mg/dL Critically high 7.0-18.0 [facility] Comment on above: Performed By: #### T SH, CMP, T7, LIPID #### [facility] [address] [address] [address] Danay De Los Santos Urea nitrogen/Creatinine [Mass ratio] 15.0 mg/mg Normal [facility] Comment on above: Performed By: #### T SH, CMP, T7, LIPID #### [facility] [address] [address] [address] Danay De Los Santos PROF CHEM 8 (BAS METB)on Anion gap [Moles/Vol] 12.1 mmol/L Normal [facility] Comment on above: Performed By: #### B MP #### [facility] [address] [address] [address] Danay De Los Santos Calcium [Mass/Vol] 8.8 mg/dL Normal 8.5-10.1 [facility] Comment on above: Performed By: #### B MP #### [facility] [address] [address] [address] Danay De Los Santos Chloride [Moles/Vol] 103 mmol/L Normal 98-107 [facility] Comment on above: Performed By: #### B MP #### [facility] [address] [address] [address] Danay De Los Santos CO2 [Moles/Vol] 28.6 mmol/L Normal 21.0-32.0 [facility] Comment on above: Performed By: #### B MP #### [facility] [address] [address] [address] Danay De Los Santos Creatinine [Mass/Vol] 2.08 mg/dL Critically high 0.55-1.02 [facility] Comment on above: Performed By: #### B MP #### [facility] [address] [address] [address] Danay De Los Santos EGFR-AF DUTCH 29 mL/min/1.73m2 Critically low >=60 [facility] Comment on above: Performed By: #### B MP #### [facility] [address] [address] [address] Danay De Los Santos EGFR-NON AF DUTCH 24 mL/min/1.73m2 Critically low >=60 [facility] Comment on above: Performed By: #### B MP #### [facility] [address] [address] [address] Danay De Los Santos Glucose [Mass/Vol] 259 mg/dL Critically high 74-106 [facility] Comment on above: Performed By: #### B MP #### [facility] [address] [address] [address] Danay De Los Santos Potassium [Moles/Vol] 4.7 mmol/L Normal 3.5-5.1 [facility] Comment on above: Performed By: #### B MP #### [facility] [address] [address] [address] Danay De Los Santos Sodium [Moles/Vol] 139 mmol/L Normal 136-145 [facility] Comment on above: Performed By: #### B MP #### [facility] [address] [address] [address] Danay De Los Santos Urea nitrogen [Mass/Vol] 27.0 mg/dL Critically high 7.0-18.0 [facility] Comment on above: Performed By: #### B MP #### [facility] [address] [address] [address] Danay De Los Santos Urea nitrogen/Creatinine [Mass ratio] 13.0 mg/mg Normal [facility] Comment on above: Performed By: #### B MP #### [facility] [address] [address] [address] Danay De Los Santos INSULINon 12-17-2022 Insulin 11.1 uIU/mL Normal 2.6-24.9 [facility] Comment on above: Performed By: #### I NSULIN #### [facility] [address] [address] [address] Danay De Los Santos BNPon 12-15-2022 Natriuretic peptide B (Bld) [Mass/Vol] 110.0 pg/mL Normal <=900.0 [facility] Comment on above: Performed By: #### T SH, CMP, T7, LIPID #### [facility] [address] [place] [address] Dr. Danay De Los Santos CBC AUTO DIFFon 12-15-2022 BASO # 0.1 103/ul Normal 0.0-0.1 [facility] Comment on above: Performed By: #### T SH, CMP, T7, LIPID #### [facility] [address] [place] [address] Dr. Danay De Los Santos Basophils/100 WBC (Bld) 0.5 % Normal 0.2-2.0 [facility] Comment on above: Performed By: #### T SH, CMP, T7, LIPID #### [facility] [address] [place] [address] Dr. Danay De Los Santos EO # 0.7 103/ul Normal 0.0-0.7 [facility] Comment on above: Performed By: #### T SH, CMP, T7, LIPID #### [facility] [address] [place] [address] Dr. Danay De Los Santos Eosinophils/100 WBC (Bld) 6.0 % Normal 0.9-7.0 [facility] Comment on above: Performed By: #### T SH, CMP, T7, LIPID #### [facility] [address] [place] [address] Dr. Danay De Los Santos Erythrocyte distribution width (RBC) [Ratio] 15.6 % Critically high 11.0-15.0 [facility] Comment on above: Performed By: #### T SH, CMP, T7, LIPID #### [facility] [address] [place] [address] Dr. Danay De Los Santos Hematocrit (Bld) [Volume fraction] 40.2 % Normal 36.0-48.0 [facility] Comment on above: Performed By: #### T SH, CMP, T7, LIPID #### [facility] [address] [place] [address] Dr. Danay De Los Santos Hemoglobin (Bld) [Mass/Vol] 12.6 g/dL Normal 12.0-16.0 [facility] Comment on above: Performed By: #### T SH, CMP, T7, LIPID #### [facility] [address] [place] [address] Dr. Danay De Los Santos IG # 0.06 10e3/ul Critically high 0.00-0.03 [facility] Comment on above: Performed By: #### T SH, CMP, T7, LIPID #### [facility] [address] [place] [address] Dr. Danay De Los Santos IG % 0.5 % Normal 0.0-0.5 [facility] Comment on above: Performed By: #### T SH, CMP, T7, LIPID #### [facility] [address] [place] [address] Dr. Danay De Los Santos LYMPH # 3.2 103/ul Normal 1.2-3.8 [facility] Comment on above: Performed By: #### T SH, CMP, T7, LIPID #### [facility] [address] [place] [address] Dr. Danay De Los Santos Lymphocytes/100 WBC (Bld) 28.9 % Normal 20.5-60.0 [facility] Comment on above: Performed By: #### T SH, CMP, T7, LIPID #### [facility] [address] [place] [address] Dr. Danay De Los Santos MANUAL DIFF REQ NO Normal [facility] Comment on above: Performed By: #### T SH, CMP, T7, LIPID #### [facility] [address] [place] [address] Dr. Danay De Los Santos MCH (RBC) [Entitic mass] 27.3 pg Normal 26.7-34.0 [facility] Comment on above: Performed By: #### T SH, CMP, T7, LIPID #### [facility] [address] [place] [address] Dr. Danay De Los Santos MCHC (RBC) [Mass/Vol] 31.3 g/dL Normal 29.9-35.2 [facility] Comment on above: Performed By: #### T SH, CMP, T7, LIPID #### [facility] [address] [address] [address] Danay De Los Santos MCV (RBC) [Entitic vol] 87.2 fL Normal 81.0-99.0 [facility] Comment on above: Performed By: #### T SH, CMP, T7, LIPID #### [facility] [address] [address] [address] Danay De Los Santos MONO # 0.6 103/ul Normal 0.3-0.8 [facility] Comment on above: Performed By: #### T SH, CMP, T7, LIPID #### [facility] [address] [place] [address] Dr. Danay De Los Santos Monocytes/100 WBC (Bld) 5.7 % Normal 1.7-12.0 [facility] Comment on above: Performed By: #### T SH, CMP, T7, LIPID #### [facility] [address] [place] [address] Dr. Danay De Los Santos NEUT # 6.4 103/ul Normal 1.4-6.5 [facility] Comment on above: Performed By: #### T SH, CMP, T7, LIPID #### [facility] [address] [place] [address] Dr. Danay De Los Santos Neutrophils/100 WBC (Bld) 58.4 % Normal 43.0-75.0 [facility] Comment on above: Performed By: #### T SH, CMP, T7, LIPID #### [facility] [address] [place] [address] Dr. Danay De Los Santos Platelet mean volume (Bld) [Entitic vol] 10.6 fL Normal 9.5-13.5 [facility] Comment on above: Performed By: #### T SH, CMP, T7, LIPID #### [facility] [address] [place] [address] Dr. Danay De Los Santos PLT 251 103/ul Normal 150-450 [facility] Comment on above: Performed By: #### T SH, CMP, T7, LIPID #### [facility] [address] [place] [address] Dr. Danay De Los Santos RBC 4.61 106/ul Normal 4.20-5.40 [facility] Comment on above: Performed By: #### T SH, CMP, T7, LIPID #### [facility] [address] [address] [address] Danay De Los Santos WBC 10.9 103/ul Normal 4.0-11.0 [facility] Comment on above: Performed By: #### T SH, CMP, T7, LIPID #### [facility] [address] [place] [address] Dr. Danay De Los Santos FREE THYROXINE INDEX T7on FTI 2.87 Normal 1.30-4.50 [facility] Comment on above: Performed By: #### T SH, CMP, T7, LIPID #### [facility] [address] [place] [address] Dr. Danay De Los Santos T3U 35.0 % Normal 30.0-39.0 [facility] Comment on above: Performed By: #### T SH, CMP, T7, LIPID #### [facility] [address] [place] [address] Dr. Danay De Los Santos T4 [Mass/Vol] 8.20 ug/dL Normal 4.80-13.90 [facility] Comment on above: Performed By: #### T SH, CMP, T7, LIPID #### [facility] [address] [place] [address] Dr. Danay De Los Santos GLYCOHEMOGLOBIN A1Con 2022 ADA RECOMMENDATION SEE BELOW Normal [facility] Comment on above: Result Comment: ADA RECOMMENDED LIMIT 4.0 - 6.0 ADA THERAPEUTIC TARGET < 7.0 ACTION SUGGESTED > 7.0 Performed By: #### A 1C #### [facility] [address] [place] [address] Dr. Danay De Los Santos Glucose [Mass/Vol] 203 mg/dL Normal [facility] Comment on above: Performed By: #### A 1C #### [facility] [address] [place] [address] Dr. Danay De Los Santos HbA1c (Bld) [Mass fraction] 8.7 % Critically high 4.5-6.2 [facility] Comment on above: Performed By: #### A 1C #### [facility] [address] [address] [address] Danay De Los Santos IRONon 12-15-2022 Iron [Mass/Vol] 39.0 ug/dL Critically low 50.0-170.0 [facility] Comment on above: Performed By: #### T SH, CMP, T7, LIPID #### [facility] [address] [address] [address] Danay De Los Santos LIPID PROFILEon 12-15-2022 CHOL-HDL RATIO NORM SEE BELOW Normal [facility] Comment on above: Result Comment: 3.3 - 4.4 LOW RISK 4.4 - 7.1 AVERAGE RISK 7.1 - 11.0 MODERATE RISK >11.0 HIGH RISK Performed By: #### T SH, CMP, T7, LIPID #### [facility] [address] [address] [address] Danay De Los Santos Cholesterol [Mass/Vol] 123 mg/dL Normal <=200 [facility] Comment on above: Performed By: #### T SH, CMP, T7, LIPID #### [facility] [address] [address] [address] Danay De Los Santos Cholesterol in HDL [Mass/Vol] 40 mg/dL Normal 40-60 [facility] Comment on above: Performed By: #### T SH, CMP, T7, LIPID #### [facility] [address] [address] [address] Danay De Los Santos Cholesterol in LDL [Mass/Vol] 70.4 mg/dL Normal [facility] Comment on above: Performed By: #### T SH, CMP, T7, LIPID #### [facility] [address] [address] [address] Danay De Los Santos Cholesterol.total/Cho lesterol in HDL [Mass ratio] 3.1 {ratio} Normal [facility] Comment on above: Performed By: #### T SH, CMP, T7, LIPID #### [facility] [address] [address] [address] Danay De Los Santos HDL NORMAL > or = 60 mg/dl - LO W CARDIOVASCULAR RISK <40 mg/dl - HIGH CARDIOVASCULAR RISK Normal [facility] Comment on above: Performed By: #### T SH, CMP, T7, LIPID #### [facility] [address] [address] [address] Danay De Los Santos LDL CALC NORMAL SEE BELOW Normal [facility] Comment on above: Result Comment: <100 mg/dl OPTIMAL 100 - 129 mg/dl NEAR OR ABOVE OPTIMAL 130 - 159 mg/dl BORDERLINE HIGH 160 - 189 mg/dl HIGH >190 mg/dl VERY HIGH Performed By: #### T SH, CMP, T7, LIPID #### [facility] [address] [address] [address] Danay De Los Santos Triglyceride [Mass/Vol] 63 mg/dL Normal <=150 [facility] Comment on above: Performed By: #### T SH, CMP, T7, LIPID #### [facility] [address] [address] [address] Danay De Los Santos VLDL CALC 12.6 mg/dL Normal [facility] Comment on above: Performed By: #### T SH, CMP, T7, LIPID #### [facility] [address] [address] [address] Danay De Los Santos PROF 14(COMP METB)on 023 Albumin [Mass/Vol] 3.3 g/dL Critically low 3.4-5.0 [facility] Comment on above: Performed By: #### T SH, CMP, T7, LIPID #### [facility] [address] [address] [address] Danay De Los Santos Albumin/Globulin [Mass ratio] 1.0 {ratio} Normal [facility] Comment on above: Performed By: #### T SH, CMP, T7, LIPID #### [facility] [address] [address] [address] Danay De Los Santos ALP [Catalytic activity/Vol] 94 U/L Normal 46-116 [facility] Comment on above: Performed By: #### T SH, CMP, T7, LIPID #### [facility] [address] [address] [address] Danay De Los Santos ALT [Catalytic activity/Vol] 17 U/L Normal 14-59 [facility] Comment on above: Performed By: #### T SH, CMP, T7, LIPID #### [facility] [address] [address] [address] Danay De Los Santos Anion gap [Moles/Vol] 14.3 mmol/L Normal [facility] Comment on above: Performed By: #### T SH, CMP, T7, LIPID #### [facility] [address] [place] [address] Dr. Danay De Los Santos AST [Catalytic activity/Vol] 11 U/L Critically low 15-37 [facility] Comment on above: Performed By: #### T SH, CMP, T7, LIPID #### [facility] [address] [address] [address] Danay De Los Santos Bilirubin [Mass/Vol] 0.3 mg/dL Normal 0.2-1.0 [facility] Comment on above: Performed By: #### T SH, CMP, T7, LIPID #### [facility] [address] [place] [address] Dr. Danay De Los Santos Calcium [Mass/Vol] 9.1 mg/dL Normal 8.5-10.1 [facility] Comment on above: Performed By: #### T SH, CMP, T7, LIPID #### [facility] [address] [place] [address] Dr. Daany De Los Santos Chloride [Moles/Vol] 105 mmol/L Normal 98-107 [facility] Comment on above: Performed By: #### T SH, CMP, T7, LIPID #### [facility] [address] [address] [address] Danay De Los Santos CO2 [Moles/Vol] 29.3 mmol/L Normal 21.0-32.0 [facility] Comment on above: Performed By: #### T SH, CMP, T7, LIPID #### [facility] [address] [place] [address] Dr. Danay De Los Santos Creatinine [Mass/Vol] 1.53 mg/dL Critically high 0.55-1.02 [facility] Comment on above: Performed By: #### T SH, CMP, T7, LIPID #### [facility] [address] [place] [address] Dr. Danay De Los Santos EGFR-AF DUTCH 41 mL/min/1.73m2 Critically low >=60 [facility] Comment on above: Performed By: #### T SH, CMP, T7, LIPID #### [facility] [address] [address] [address] Danay De Los Santos EGFR-NON AF DUTCH 34 mL/min/1.73m2 Critically low >=60 [facility] Comment on above: Performed By: #### T SH, CMP, T7, LIPID #### [facility] [address] [address] [address] Danay De Los Santos Globulin (S) [Mass/Vol] 3.4 g/dL Normal [facility] Comment on above: Performed By: #### T SH, CMP, T7, LIPID #### [facility] [address] [address] [address] Danay De Los Santos Glucose [Mass/Vol] 192 mg/dL Critically high 74-106 [facility] Comment on above: Performed By: #### T SH, CMP, T7, LIPID #### [facility] [address] [address] [address] Danay De Los Santos Potassium [Moles/Vol] 4.6 mmol/L Normal 3.5-5.1 [facility] Comment on above: Performed By: #### T SH, CMP, T7, LIPID #### [facility] [address] [address] [address] Danay De Los Santos Protein [Mass/Vol] 6.7 g/dL Normal 6.4-8.2 [facility] Comment on above: Performed By: #### T SH, CMP, T7, LIPID #### [facility] [address] [address] [address] Danay De Los Santos Sodium [Moles/Vol] 144 mmol/L Normal 136-145 [facility] Comment on above: Performed By: #### T SH, CMP, T7, LIPID #### [facility] [address] [address] [address] Danay De Los Santos Urea nitrogen [Mass/Vol] 25.0 mg/dL Critically high 7.0-18.0 [facility] Comment on above: Performed By: #### T SH, CMP, T7, LIPID #### [facility] [address] [address] [address] Danay De Los Santos Urea nitrogen/Creatinine [Mass ratio] 16.3 mg/mg Normal [facility] Comment on above: Performed By: #### T SH, CMP, T7, LIPID #### [facility] [address] [address] [address] Danay De Los Santos TSHon 12-15-2022 TSH 2.181 uIU/mL Normal 0.358-3.740 [facility] Comment on above: Performed By: #### T SH, CMP, T7, LIPID #### [facility] [address] [address] [address] Danay De Los Santos VITAMIN D 25 OHon 12-15-2022 VIT D 25-OH 32.9 ng/mL Normal [facility] Comment on above: Performed By: #### T SH, CMP, T7, LIPID #### [facility] [address] [place] [address] Dr. Danay De Los Santos VIT D RANGES SEE BELOW Normal [facility] Comment on above: Result Comment: <20 ng/mL Vit D deficient 20 - <30 ng/mL Vit D insufficient 30 - 100 ng/mL Vit D sufficient >100 ng/mL Potential Toxicity Performed By: #### T SH, CMP, T7, LIPID #### [facility] [address] [place] [address] Dr. Danay De Los Santos US ROEL [...] by: MORIAH MORRISON Date: 2022-12-01 12:54 Normal [facility] XR Hand Complete Left*on XR Hand Complete Left* CLINICAL HISTORY: Fall with left hand stiffness. COMPARISON: None. RESULT: No distinct acute fracture. No dislocation. Underlying decreased bone mineral density. Mild to moderate scattered degenerative changes. Soft tissue edema. IMPRESSION: No acute osseous findings radiographically. Report reported and signed by Home Lockwood on 08/24/2022 1108 Normal [facility] XR Spine Cervical Complete*o n 08-24-2022 [...] by Home Lockwood on 08/24/2022 1109 Normal [facility] XR HAND RIMA MIN 3Von 023 XR HAND RIMA MIN 3V EXAM: XR HAND RIMA WI N 3V HISTORY: Pain following fall COMPARISON: None. TECHNIQUE: 3 views of each hand FINDINGS: No visualized fracture, dislocation, subluxation or osseous lesion. Age-related joint space changes. No gross visualized soft tissue edema. IMPRESSION: No visualized abnormality Electronically authenticated by: BRIANNA KU Date: 2022-08-06 20:28 Normal [facility] XR HIP RT 2 3V W [...] by: BRIANNA KU Date: 2022-08-06 20:29 Normal [facility] XR SHOULDER RT 2V or >on [...] by: BRIANNA KU Date: 2022-08-06 20:21 Normal [facility] XR Foot Complete Left*on XR Foot Complete Left* COMPARISON: None available HISTORY: Second and third digit pain after a fall TECHNIQUE: AP, lateral and oblique views of the foot obtained. FINDINGS: No acute fracture or dislocation. Joint spaces are preserved. Soft tissues are within normal limits. IMPRESSION: No acute osseous abnormality. Report reported and signed by Drew Looney on 08/04/2022 1044 Normal [facility] XR Knee Complete Left*on XR Knee Complete [...] by Drew Looney on 08/04/2022 1046 Normal [facility] EXAMINATION: MRI BRA IN [facility], 07/02/2022 1:55 PM EST HISTORY: Headache COMPARISON: [...] BRIANNA GREEN Date: 2022-07-02 14:48 Normal [facility] INSULINon 05-28-2022 Insulin 13.4 uIU/mL Normal 2.6-24.9 [facility] Comment on above: Performed By: #### I NSULIN #### [facility] [address] [place] [address] Dr. Danay De Los Santos CBC AUTO DIFFon 05-26-2022 BASO # 0.1 103/ul Normal 0.0-0.1 [facility] Comment on above: Performed By: #### C BC #### [facility] [address] [place] [address] Dr. Danay De Los Santos Basophils/100 WBC (Bld) 0.8 % Normal 0.2-2.0 [facility] Comment on above: Performed By: #### C BC #### [facility] [address] [place] [address] Dr. Danay De Los Santos EO # 0.6 103/ul Normal 0.0-0.7 [facility] Comment on above: Performed By: #### C BC #### [facility] [address] [place] [address] Dr. Danay De Los Santos Eosinophils/100 WBC (Bld) 5.1 % Normal 0.9-7.0 [facility] Comment on above: Performed By: #### C BC #### [facility] [address] [place] [address] Dr. Danay De Los Santos Erythrocyte distribution width (RBC) [Ratio] 14.7 % Normal 11.0-15.0 [facility] Comment on above: Performed By: #### C BC #### [facility] [address] [place] [address] Dr. Danay De Los Santos Hematocrit (Bld) [Volume fraction] 37.8 % Normal 36.0-48.0 [facility] Comment on above: Performed By: #### C BC #### [facility] [address] [place] [address] Dr. Danay De Los Santos Hemoglobin (Bld) [Mass/Vol] 12.3 g/dL Normal 12.0-16.0 [facility] Comment on above: Performed By: #### C BC #### [facility] [address] [address] [address] Danay De Los Santos IG # 0.05 10e3/ul Critically high 0.00-0.03 [facility] Comment on above: Performed By: #### C BC #### [facility] [address] [address] [address] Danay De Los Santos IG % 0.5 % Normal 0.0-0.5 [facility] Comment on above: Performed By: #### C BC #### [facility] [address] [place] [address] Dr. Danay De Los Santos LYMPH # 2.1 103/ul Normal 1.2-3.8 [facility] Comment on above: Performed By: #### C BC #### [facility] [address] [place] [address] Dr. Danay De Los Santos Lymphocytes/100 WBC (Bld) 19.1 % Critically low 20.5-60.0 [facility] Comment on above: Performed By: #### C BC #### [facility] [address] [place] [address] Dr. Danay De Los Santos MANUAL DIFF REQ NO Normal [facility] Comment on above: Performed By: #### C BC #### [facility] [address] [place] [address] Dr. Danay De Los Santos MCH (RBC) [Entitic mass] 30.8 pg Normal 26.7-34.0 [facility] Comment on above: Performed By: #### C BC #### [facility] [address] [place] [address] Dr. Danay De Los Santos MCHC (RBC) [Mass/Vol] 32.5 g/dL Normal 29.9-35.2 [facility] Comment on above: Performed By: #### C BC #### [facility] [address] [place] [address] Dr. Danay De Los Santos MCV (RBC) [Entitic vol] 94.5 fL Normal 81.0-99.0 [facility] Comment on above: Performed By: #### C BC #### [facility] [address] [place] [address] Dr. Danay De Los Santos MONO # 0.6 103/ul Normal 0.3-0.8 [facility] Comment on above: Performed By: #### C BC #### [facility] [address] [address] [address] Danay De Los Santos Monocytes/100 WBC (Bld) 5.1 % Normal 1.7-12.0 [facility] Comment on above: Performed By: #### C BC #### [facility] [address] [place] [address] Dr. Danay De Los Santos NEUT # 7.5 103/ul Critically high 1.4-6.5 [facility] Comment on above: Performed By: #### C BC #### [facility] [address] [place] [address] Dr. Danay De Los Santos Neutrophils/100 WBC (Bld) 69.4 % Normal 43.0-75.0 [facility] Comment on above: Performed By: #### C BC #### [facility] [address] [place] [address] Dr. Danay De Los Santos Platelet mean volume (Bld) [Entitic vol] 10.9 fL Normal 9.5-13.5 [facility] Comment on above: Performed By: #### C BC #### [facility] [address] [place] [address] Dr. Danay De Los Santos PLT 235 103/ul Normal 150-450 [facility] Comment on above: Performed By: #### C BC #### [facility] [address] [place] [address] Dr. Danay De Los Santos RBC 4.00 106/ul Critically low 4.20-5.40 [facility] Comment on above: Performed By: #### C BC #### [facility] [address] [place] [address] Dr. Danay De Los Santos WBC 10.8 103/ul Normal 4.0-11.0 [facility] Comment on above: Performed By: #### C BC #### [facility] [address] [address] [address] Danay De Los Santos FREE THYROXINE INDEX T7on FTI 1.83 Normal 1.30-4.50 [facility] Comment on above: Performed By: #### T SH, CMP, T7, LIPID #### [facility] [address] [place] [address] Dr. Danay De Los Santos T3U 31.0 % Normal 30.0-39.0 [facility] Comment on above: Performed By: #### T SH, CMP, T7, LIPID #### [facility] [address] [address] [address] Danay De Los Santos T4 [Mass/Vol] 5.90 ug/dL Normal 4.80-13.90 [facility] Comment on above: Performed By: #### T SH, CMP, T7, LIPID #### [facility] [address] [place] [address] Dr. Danay De Los Santos GLYCOHEMOGLOBIN A1Con 2021 ADA RECOMMENDATION SEE BELOW Normal [facility] Comment on above: Result Comment: ADA RECOMMENDED LIMIT 4.0 - 6.0 ADA THERAPEUTIC TARGET < 7.0 ACTION SUGGESTED > 7.0 Performed By: #### A 1C #### [facility] [address] [place] [address] Dr. Danay De Los Santos Glucose [Mass/Vol] 186 mg/dL Normal [facility] Comment on above: Performed By: #### A 1C #### [facility] [address] [place] [address] Dr. Danay De Los Santos HbA1c (Bld) [Mass fraction] 8.1 % Critically high 4.5-6.2 [facility] Comment on above: Performed By: #### A 1C #### [facility] [address] [place] [address] Dr. Danay De Los Santos IRONon 05-26-2022 Iron [Mass/Vol] 61.0 ug/dL Normal 50.0-170.0 [facility] Comment on above: Performed By: #### T SH, CMP, T7, LIPID #### [facility] [address] [place] [address] Dr. Danay De Los Santos LIPID PROFILEon 05-26-2022 CHOL-HDL RATIO NORM SEE BELOW Normal [facility] Comment on above: Result Comment: 3.3 - 4.4 LOW RISK 4.4 - 7.1 AVERAGE RISK 7.1 - 11.0 MODERATE RISK >11.0 HIGH RISK Performed By: #### T SH, CMP, T7, LIPID #### [facility] [address] [address] [address] Danay De Los Santos Cholesterol [Mass/Vol] 130 mg/dL Normal <=200 [facility] Comment on above: Performed By: #### T SH, CMP, T7, LIPID #### [facility] [address] [address] [address] Danay De Los Santos Cholesterol in HDL [Mass/Vol] 40 mg/dL Normal 40-60 [facility] Comment on above: Performed By: #### T SH, CMP, T7, LIPID #### [facility] [address] [address] [address] Danay De Los Santos Cholesterol in LDL [Mass/Vol] 75.8 mg/dL Normal [facility] Comment on above: Performed By: #### T SH, CMP, T7, LIPID #### [facility] [address] [address] [address] Danay De Los Santos Cholesterol.total/Cho lesterol in HDL [Mass ratio] 3.3 {ratio} Normal [facility] Comment on above: Performed By: #### T SH, CMP, T7, LIPID #### [facility] [address] [address] [address] Danay De Los Santos HDL NORMAL > or = 60 mg/dl - LO W CARDIOVASCULAR RISK <40 mg/dl - HIGH CARDIOVASCULAR RISK Normal [facility] Comment on above: Performed By: #### T SH, CMP, T7, LIPID #### [facility] [address] [address] [address] Danay De Los Santos LDL CALC NORMAL SEE BELOW Normal [facility] Comment on above: Result Comment: <100 mg/dl OPTIMAL 100 - 129 mg/dl NEAR OR ABOVE OPTIMAL 130 - 159 mg/dl BORDERLINE HIGH 160 - 189 mg/dl HIGH >190 mg/dl VERY HIGH Performed By: #### T SH, CMP, T7, LIPID #### [facility] [address] [address] [address] Danay De Los Santos Triglyceride [Mass/Vol] 71 mg/dL Normal <=150 [facility] Comment on above: Performed By: #### T SH, CMP, T7, LIPID #### [facility] [address] [address] [address] Danay De Los Santos VLDL CALC 14.2 mg/dL Normal [facility] Comment on above: Performed By: #### T SH, CMP, T7, LIPID #### [facility] [address] [place] [address] Dr. Danay De Los Santos PROF 14(COMP METB)on 022 Albumin [Mass/Vol] 3.4 g/dL Normal 3.4-5.0 [facility] Comment on above: Performed By: #### T SH, CMP, T7, LIPID #### [facility] [address] [place] [address] Dr. Danay De Los Santos Albumin/Globulin [Mass ratio] 1.0 {ratio} Normal [facility] Comment on above: Performed By: #### T SH, CMP, T7, LIPID #### [facility] [address] [place] [address] Dr. Danay De oLs Santos ALP [Catalytic activity/Vol] 92 U/L Normal 46-116 [facility] Comment on above: Performed By: #### T SH, CMP, T7, LIPID #### [facility] [address] [place] [address] Dr. Danay De Los Santos ALT [Catalytic activity/Vol] 15 U/L Normal 14-59 [facility] Comment on above: Performed By: #### T SH, CMP, T7, LIPID #### [facility] [address] [place] [address] Dr. Danay De Los Santos Anion gap [Moles/Vol] 10.4 mmol/L Normal [facility] Comment on above: Performed By: #### T SH, CMP, T7, LIPID #### [facility] [address] [place] [address] Dr. Danay De Los Santos AST [Catalytic activity/Vol] 12 U/L Critically low 15-37 [facility] Comment on above: Performed By: #### T SH, CMP, T7, LIPID #### [facility] [address] [address] [address] Danay De Los Santos Bilirubin [Mass/Vol] 0.4 mg/dL Normal 0.2-1.0 [facility] Comment on above: Performed By: #### T SH, CMP, T7, LIPID #### [facility] [address] [address] [address] Danay De Los Santos Calcium [Mass/Vol] 8.7 mg/dL Normal 8.5-10.1 [facility] Comment on above: Performed By: #### T SH, CMP, T7, LIPID #### [facility] [address] [place] [address] Dr. Danay De Los Santos Chloride [Moles/Vol] 107 mmol/L Normal 98-107 [facility] Comment on above: Performed By: #### T SH, CMP, T7, LIPID #### [facility] [address] [address] [address] Danay De Los Santos CO2 [Moles/Vol] 28.9 mmol/L Normal 21.0-32.0 [facility] Comment on above: Performed By: #### T SH, CMP, T7, LIPID #### [facility] [address] [address] [address] Danay De Los Santos Creatinine [Mass/Vol] 1.18 mg/dL Critically high 0.55-1.02 [facility] Comment on above: Performed By: #### T SH, CMP, T7, LIPID #### [facility] [address] [address] [address] Danay De Los Santos EGFR-AF DUTCH 55 mL/min/1.73m2 Critically low >=60 [facility] Comment on above: Performed By: #### T SH, CMP, T7, LIPID #### [facility] [address] [address] [address] Danay De Los Santos EGFR-NON AF DUTCH 46 mL/min/1.73m2 Critically low >=60 [facility] Comment on above: Performed By: #### T SH, CMP, T7, LIPID #### [facility] [address] [address] [address] Danay De Los Santos Globulin (S) [Mass/Vol] 3.3 g/dL Normal [facility] Comment on above: Performed By: #### T SH, CMP, T7, LIPID #### [facility] [address] [address] [address] Danay De Los Santos Glucose [Mass/Vol] 153 mg/dL Critically high 74-106 [facility] Comment on above: Performed By: #### T SH, CMP, T7, LIPID #### [facility] [address] [address] [address] Danay De Los Santos Potassium [Moles/Vol] 4.3 mmol/L Normal 3.5-5.1 [facility] Comment on above: Performed By: #### T SH, CMP, T7, LIPID #### [facility] [address] [place] [address] Dr. Danay De Los Santos Protein [Mass/Vol] 6.7 g/dL Normal 6.4-8.2 [facility] Comment on above: Performed By: #### T SH, CMP, T7, LIPID #### [facility] [address] [place] [address] Dr. Danay De Los Santos Sodium [Moles/Vol] 142 mmol/L Normal 136-145 [facility] Comment on above: Performed By: #### T SH, CMP, T7, LIPID #### [facility] [address] [address] [address] Danay De Los Santos Urea nitrogen [Mass/Vol] 16.0 mg/dL Normal 7.0-18.0 [facility] Comment on above: Performed By: #### T SH, CMP, T7, LIPID #### [facility] [address] [place] [address] Dr. Danay De Los Santos Urea nitrogen/Creatinine [Mass ratio] 13.6 mg/mg Normal [facility] Comment on above: Performed By: #### T SH, CMP, T7, LIPID #### [facility] [address] [address] [address] Danay De Los Santos TSHon 05-26-2022 TSH 1.443 uIU/mL Normal 0.358-3.740 [facility] Comment on above: Performed By: #### T SADAF, CMP, T7, LIPID #### [facility] [address] [address] [address] Danay De Los Santos XR DEXA [...] by: BECKY AVILEZ Date: 2022-04-05 12:11 Normal [facility] GLYCOHEMOGLOBIN A1Con 2021 ADA RECOMMENDATION SEE BELOW Normal [facility] Comment on above: Result Comment: ADA RECOMMENDED LIMIT 4.0 - 6.0 ADA THERAPEUTIC TARGET < 7.0 ACTION SUGGESTED > 7.0 Performed By: #### T SADAF, CMP, T7, LIPID #### [facility] [address] [address] [address] Danay De Los Santos Glucose [Mass/Vol] 174 mg/dL Normal [facility] Comment on above: Performed By: #### T SADAF, CMP, T7, LIPID #### [facility] [address] [address] [address] Danay De Los Santos HbA1c (Bld) [Mass fraction] 7.7 % Critically high 4.5-6.2 [facility] Comment on above: Performed By: #### T SADAF, CMP, T7, LIPID #### [facility] [id number] Danay De Los Santos MG MAMM SCREEN 3D RIMA CADon 02-14-2022 MG MAMM SCREEN 3D RIMA CAD Patient: VIRGEN GONZALES Exam Date: 02/14/2022 : 1955 Gender:F Ordering : AGGIE DAVIS [facility] Admission #: [id number] Family : Order #: [id number] CLICK HERE TO VIEW EXAM RADIOLOGY REPORT [...] unknown cancer at age 24. LOCATION: [facility] BREAST COMPOSITION: Heterogeneously dense,which may obscure [...] M.D. on 02/14/2022 at 16:12 Normal [facility] CARDIAC STRESS/REST INJE CTIONon 01-27-2020 [facility] CARDIAC STRESS/REST INJECTION Patient Name: VIRGEN GONZALES STUDY: MYOCARDIAL PERFUSION STRESS TEST WITH LEXISCAN Performing facility: [facility], [address] [place] [address], [address], [place] [address] [facility] Provider: Catarino Koroma MD, FACC PCP: Dr. Nicola Granger Supervising provider: Catarino Koroma MD, FACC INDICATION: Abnormal EKG; Pre-operative risk assessment for Knee surgery scheduled at unknown on unknown. RB HISTORY: Gender: F; Age: 64 y/o ; Height: 152.4 cm; Weight: 77.8708941 kg. High Cholesterol; Abnormal EKG; Diabetes; Family HX CAD; HTN; Smoking COMPARISON: No comparison. ACCESSION NUMBER(S): [id number]; [id number]; [id number] ORDERING CLINICIAN: CATARINO KOROMA TECHNIQUE: ONE DAY [...] Electronically signed by: CATARINO KOROMA MD Normal [facility] Vital Signs Date Time Vital Sign Value Performing Clinician Facility 07-07-2024 21:52-0500 Body temperature 97.88 [degF] Tiny Fallon [facility] 07-07-2024 21:52-0500 Diastolic blood pressure 76 mm[Hg] Kaylinn Dokken [facility] 07-07-2024 21:52-0500 Heart rate 72 /min Kaylinn Dokken [facility] 07-07-2024 21:52-0500 Mean blood pressure 86 mm[Hg] Kaylinn Dokken [facility] 07-07-2024 21:52-0500 Respiratory rate 19 /min Kaylinn Dokken [facility] 07-07-2024 21:52-0500 SaO2% (BldA) [Mass fraction] 95 % Kaylinn Dokken [facility] 07-07-2024 21:52-0500 Systolic blood pressure 105 mm[Hg] Kaylinn Dokken [facility] 07-07-2024 20:57-0500 Diastolic blood pressure 77 mm[Hg] Kaylinn Dokken [facility] 07-07-2024 20:57-0500 Heart rate 61 /min Kaylinn Dokken [facility] 07-07-2024 20:57-0500 Mean blood pressure 102 mm[Hg] Kaylinn Dokken [facility] 07-07-2024 20:57-0500 Respiratory rate 18 /min Kaylinn Dokken [facility] 07-07-2024 20:57-0500 SaO2% (BldA) [Mass fraction] 96 % Kaylinn Dokken [facility] 07-07-2024 20:57-0500 Systolic blood pressure 153 mm[Hg] Kaylinn Dokken [facility] 07-07-2024 19:33-0500 Diastolic blood pressure 89 mm[Hg] Kaylinn Dokken [facility] 07-07-2024 19:33-0500 Heart rate 60 /min Kaylinn Dokken [facility] 07-07-2024 19:33-0500 Mean blood pressure 108 mm[Hg] Kaylinn Dokken [facility] 07-07-2024 19:33-0500 Respiratory rate 19 /min Kaylinn Dokken [facility] 07-07-2024 19:33-0500 SaO2% (BldA) [Mass fraction] 95 % Kaylinn Dokken [facility] 07-07-2024 19:33-0500 Systolic blood pressure 146 mm[Hg] Kaylinn Dokken [facility] 07-07-2024 19:20-0500 Body temperature 98.06 [degF] Kaylinn Dokken [facility] 07-07-2024 18:33-0500 Body temperature 98.24 [degF] Kaylinn Dokken [facility] 07-07-2024 18:33-0500 Heart rate 73 /min Kaylinn Dokken [facility] 07-07-2024 18:33-0500 Respiratory rate 18 /min Kaylinn Dokken [facility] 07-07-2024 18:19-0500 gluc 142 mg/dL Kaylinn Dokken [facility] 07-07-2024 18:18-0500 Heart rate 73 /min Eugenian Dokken [facility] 07-07-2024 18:18-0500 Respiratory rate 18 /min Jamalylinn Dokken [facility] 05-18-2024 10:53-0400 Body height 152.4 cm Da Biedenbach DO Work Phone: [facility] 05-18-2024 10:53-0400 Body mass index (BMI) [Ratio] 38.08 kg/m2 Da Biedenbach DO Work Phone: [facility] 05-18-2024 10:53-0400 Body weight 88.45 kg Da Biedenbach DO Work Phone: [facility] 04-13-2024 11:09-0400 Body height 152.4 cm Da Biedenbach DO Work Phone: [facility] 04-13-2024 11:09-0400 Body mass index (BMI) [Ratio] 38.08 kg/m2 Da Biedenbach DO Work Phone: [facility] 04-13-2024 11:09-0400 Body weight 88.45 kg Da Biedenbach DO Work Phone: [facility] 04-10-2024 09:25-0400 Body height 149.9 cm Da Biedenbach DO Work Phone: [facility] 04-10-2024 09:25-0400 Body mass index (BMI) [Ratio] 39.39 kg/m2 Da Biedenbach DO Work Phone: [facility] 04-10-2024 09:25-0400 Body weight 88.45 kg Da Biedenbach DO Work Phone: [facility] 03-26-2024 11:11-0400 Body height 152.4 cm Da Biedenbach DO Work Phone: [facility] [place] 03-26-2024 11:11-0400 Body mass index (BMI) [Ratio] 38.08 kg/m2 Da Phillip DO Work Phone: [facility] [place] 03-26-2024 11:11-0400 Body weight 88.45 kg Da Phillip DO Work Phone: [facility] 08-27-2023 15:38-0500 Body height 149.9 cm Brice Estrella DO Work Phone: [facility] 08-27-2023 15:38-0500 Body mass index (BMI) [Ratio] 39.59 kg/m2 Brice Estrella DO Work Phone: [facility] 08-27-2023 15:38-0500 Body temperature 97.39 [degF] Brice Estrella DO Work Phone: [facility] 08-27-2023 15:38-0500 Body weight 88.91 kg Brice Estrella DO Work Phone: [facility] 06-07-2023 08:27-0500 Heart rate 77 /min Brice Estrella [facility] 06-07-2023 08:27-0500 SaO2% (BldA) [Mass fraction] 98 % Brice Estrella [facility] 06-07-2023 08:26-0500 Respiratory rate 20 /min Brice Estrella [facility] 06-07-2023 08:26-0500 Blood Pressure Location Brice Estrella [facility] 06-07-2023 08:26-0500 Diastolic blood pressure 64 mm[Hg] Bricelaura Estrella [facility] 06-07-2023 08:26-0500 Mean blood pressure 77 mm[Hg] Brice Delores [facility] 06-07-2023 08:26-0500 Systolic blood pressure 102 mm[Hg] Brice Estrella [facility] 06-07-2023 08:25-0500 Body temperature 97.88 [degF] Brice Estrella [facility] 06-07-2023 08:05-0500 Blood Pressure Location Brice Estrella [facility] 06-07-2023 08:05-0500 Diastolic blood pressure 59 mm[Hg] Brice Estrella [facility] 06-07-2023 08:05-0500 Heart rate 73 /min Brice Estrella [facility] 06-07-2023 08:05-0500 Respiratory rate 20 /min Brice Estrella [facility] 06-07-2023 08:05-0500 SaO2% (BldA) [Mass fraction] 95 % Brice Estrella [facility] 06-07-2023 08:05-0500 Systolic blood pressure 114 mm[Hg] Brice Estrella [facility] 06-07-2023 07:30-0500 Blood Pressure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 04/10/24 Aggie Davis MD [address] [place] [phone] Referring Physician Family Medicine 04/10/24 Da Phillip DO [address] [place] [address] Otolaryngology 04/10/24 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 Start Date End Date Carter Granger MD [address] [place] [phone] PCP - General Family Medicine 04/10/24 Aggie Davis MD [address] [place] [phone] Referring Physician Family Medicine 04/10/24 Da Phillip DO [address] [place] [address] Otolaryngology 04/10/24 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 [facility] [employer] [facility]. provides no warranty or guarantee of the accuracy or completeness of information in this document.
== END 2024-08-12 08:05 | disposition home or self-care (01) ==
LOC: RAD 08:04
PROVIDERS: PCP Nurse Practitioner Family; Visit Provider Nurse Practitioner Family
DX: M79.671 Pain in right foot (principal); M19.071 Primary osteoarthritis, right ankle and foot
CPT/HCPCS: 73630

== ENCOUNTER 2024-08-17 12:00 | Outpatient (OUT) | payer MEDICARE, SELFPAY ==
--- OUTSIDE RECORDS SUMMARY | 2024-08-18 10:50 | XMS_ITS | CCD ---
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 Name Role Phone AGGIE FU Primary Care Physician [phone] AGGIE DAVIS Attending Unavailable SUSAN, AGGIE Primary [...] Primary Care Unavailable CAMMIE EASON Attending Unavailable DR SUE SHEIKH Consulting Unavailable CAMMIE EASON Admitting Unavailable BRIANNA KU Unavailable SUSAN, GAGIE Primary Care Unavailable CRICKET Cavanaugh, DR GARCIA Attending Unavailable CRICKET ., DR GARCIA Admitting Unavailable AGGIE DAVIS Primary Care Physician [phone] Unallocated, Noms Provider Primary Care Provider ROMEO Davis-Hilda Aggie Isabel Primary Care Provider [phone] DO Brice Estrella Attending Provider [phone] ROMEO Davis-Hilda Aggie Isabel Primary Care Provider [phone] ROMEO Davis-Hilda Aggie Isabel Attending Provider DO Da Phillip Attending Provider Susan WRAY, Aggie Unavailable Carter Granger MD Primary Care Provider [phone] Da Phillip DO Unavailable BRICE ESTRELLA Attending Unavailable BROWN, BRICE A Referring Unavailable BROWN, BRICE A Attending Unavailable BROWN, BRICE A Attending Unavailable BROWN, BRICE A Attending Unavailable BROWN, BRICE A Attending Unavailable BROWN, BRICE A Attending Unavailable BROWN, BRICE A Attending Unavailable DELORES, BRICE A Referring Unavailable DELORES, BRICE A Attending Unavailable BIEDJOSELITO, DA Rubio Attending Unavailable RUMAEDJOSELITO, DA S Attending Unavailable AGGIE DAVIS Referring Unavailable KENJI, DA Rubio Attending Unavailable RUMAEDJOSELITO, DA Rubio Attending Unavailable BROWN, BRICE A Referring Unavailable Brown, Brice A Referring Unavailable Brown, Brice A Attending Unavailable Tiny Fallon Attending Unavailable Tiny Fallon Attending Unavailable Unallocated MD, Noms Provider Primary Care Provi neris Susan, Aggie Isabel Primary Care Unavailable Brice Estrella A Admitting Unavailable Brice Estrella A Attending Unavailable Rumaedjoselito, Da Admitting Unavailable Biedenbach, Da Attending Unavailable Rumaedjoselito, Da Admitting Unavailable Rumaedenbach, Da Attending Unavailable Susan, Aggie Isabel Primary Care Unavailable Susan, Aggie Isabel Attending Unavailable Susan, Aggie Isabel Admitting Unavailable Susan, Aggie Isabel Primary Care Unavailable Kang BOSS Attending Unavailable Carter Granger Referring Unavailable Allergies Allergy Classification Reported Allergen(s) Allergy Type Date of Onset Reaction(s) Facility (9 sources) Acetaminophen / HYDROcodone; Translations: [acetaminophen-hy drocodone] Drug Allergy itching , sick to stomach [facility] (9 sources) Acetaminophen / oxyCODONE; Translations: [acetaminophen-ox ycodone] Drug Allergy sleeps a long time [facility] (9 sources) acetaminophen / propoxyphene; Translations: [acetaminophen-pr opoxyphene] Drug Allergy Itching [facility] (20 sources) Codeine; Translations: [codeine] Drug Allergy 1 Rash [facility] (20 sources) Penicillins; Translations: [penicillins] Drug allergy 4 Difficulty breathing at rest, Hives [facility] (20 sources) Propoxyphene; Translations: [propoxyphene] Drug Allergy 7 Itching, Unknown [facility] (1 source) Propoxyphene Drug Allergy 4 [facility] (1 source) ZOLMitriptan Drug Allergy 4 [facility] (1 source) Darvocet-N 100 Drug allergy (disorder) 4 [facility] (15 sources) Acetaminophen / HYDROcodone Drug Allergy 5 Unknown [facility] (15 sources) Acetaminophen / oxyCODONE Drug Allergy 1 [facility] (19 sources) HYDROcodone Drug Allergy 1 Unknown [facility] (15 sources) traMADol Drug Allergy 1 [facility] (5 sources) Acetaminophen; Translations: [acetaminophen] Drug Allergy 3 Itching [facility] (5 sources) oxyCODONE; Translations: [oxycodone] Drug Allergy 3 Drowsy [facility] (5 sources) Penicillin; Translations: [penicillin G] Drug Allergy 3 welts itching [facility] (5 sources) ZOLMitriptan; Translations: [zolmitriptan] Drug Allergy 3 felt like I was on fire [facility] (1 source) Codeine Drug Allergy 3 [facility] (1 source) HYDROcodone Drug Allergy 3 [facility] (1 source) Propoxyphene Drug Allergy 3 [facility] Medications Current Medications Medication Drug Class(es) Dates Sig (Normalized) Sig (Original) [id number] 200 actuat albuterol 0.09 mg/actuat metered dose inhaler (13 sources) beta2-Adrenergic Agonist Start: 12-11-2023 albuterol HFA 90 mcg/act inhaler 12/11/2023 Active alendronic acid 70 mg oral tablet (18 sources) Bisphosphonate Start: 09-19-2020 take 1 tablet by mouth every week alendronate 70 mg oral tablet 70 mg = 1 tab(s), Oral, qWeek, Other (see comment) Start Date: 09/19/20 Status: Ordered ascorbic acid 500 mg chewable tablet (15 sources) Vitamin C Start: 06-07-2023 RA Vitamin [...] (True Metrix Air Glucose Meter) w/Device kit (15 sources) Start: 07-01-2023 Blood Glucose Monitoring Suppl (True Metrix Air Glucose Meter) w/Device kit 07/01/2023 Active Start: 07-01-2023 Blood Glucose Monitoring Suppl (True Metrix Air Glucose Meter) w/Device kit busPIRone (17 sources) Start: 06-07-2023 take 75 mg by [...] q12hr, # 20 cap(s), Refills(s) 0, Pharmacy: [facility], 152, cm, 07/07/24 18:23:00 EST, Height/Length Dosing, 94.1, kg, 07/07/24 18:23:00 EST, Weight Dosing Start Date: 07/07/24 Status: Ordered cetirizine hydrochloride 10 mg oral tablet (19 sources) Histamine-1 Receptor Antagonist Start: 02-16-2020 take [...] Status: Ordered ciprofloxacin 500 mg oral tablet (15 sources) Quinolone Antimicrobial Start: 07-10-2023 take 1 [...] Ordered ferrous sulfate 325 mg oral tablet (15 sources) ferrous sulfate 325 (65 Fe) MG [...] Pr opionate (Flonase Allergy Relief) 50 mcg/actuation [place],Suspension Active 1 SPRAY INTRANASAL As Directed February 16, 2020 12:00am Flovent HFA 110 MCG/ACT inhaler every 12 (twelve) hours. Active furosemide 20 mg oral tablet (17 sources) Loop Diuretic Start: 06-07-2023 take 20 mg by mouth once daily furosemide 20 mg, Oral, Daily, Refills(s) 0, diuretic/water pill Start Date: 06/07/23 Status: Ordered hydroCHLOROthiazide 25 mg oral tablet (15 sources) Thiazide Diuretic hydroCHLOROthiazide (HYDRODiuril) 25 MG [...] / pseudoephedrine hydrochloride 30 mg oral tablet (15 sources) alpha-Adrenergic Agonist, Nonsteroidal Anti-inflammatory Drug pseudoephedrine-Ibup [...] sources) Angiotensin Converting Enzyme Inhibitor Sta rt: take 1 tablet by mouth once daily [...] omeprazole 40 mg delayed release oral capsule (13 sources) Proton Pump Inhibitor Start: 12-13-2023 omeprazole (PriLOSEC) [address] capsule 12/13/2023 Active Ozempic, 0.25 or 0.5 MG/DOSE, 2 MG/3ML solution pen-injector (15 sources) Start: 04-29-2023 inject 0.25 mg by [...] chloride 20 meq extended release oral tablet (15 sources) Start: 12-10-2022 potassium chloride CR (K-Tab) 20 MEQ ER tablet 1 (one) time each day at the same time 12/10/2022 Active pregabalin 75 mg oral capsule (17 sources) Start: 04-08-2023 pregabalin (Lyrica) 75 MG capsule TAKE 1 CAPSULE TWICE DAILY for 30 04/08/2023 Active Relion Novolin N (2 sources) Start: 06-07-2023 [...] g56.02, # 30 tab(s), Refills(s) 0, Pharmacy: [id number], 152.4, cm, 06/07/23 6:59:00 EST, Height/Length Dosing [...] day(s), # 50 tab(s), Refills(s) 0, Pharmacy: [facility] #[id number], 152.4, cm, 06/07/23 6:59:00 EST, Height/Length Dosing [...] above: pt states no damage done per Deficiency and other anemia (1 source) Anemia, [...] FAIL] Onset: 12-17-2022 Chronic Malaise and fatigue (7 sources) Fatigue; Translations: [...] Episodic Other ear and sense organ disorders (13 sources) Chronic non-infective otitis externa; Translations: [Other otitis externa, right ear] Onset: 03-25-2024 Resolved: 03-25-2024 03-25-2024 Chronic Other injuries and conditions due to external causes (4 sources) Closed injury of head; Translations: [Unspecified injury of head, initial encounter] 04-20-2023 Episodic Other nervous system disorders (13 sources) Chronic pain; Translations: [Other chronic pain] Onset: 03-25-2024 Resolved: 03-25-2024 03-25-2024 Chronic Other non-traumatic joint disorders (1 source) Pain in left knee; Translations: [Pain in joint, lower leg] 08-27-2023 Episodic Other upper respiratory disease (13 sources) Chronic pharyngitis; Translations: [Chronic pharyngitis] Onset: [...] edema; Translations: [LOCALIZED EDEMA] Onset: 12-01-2022 Episodic Superficial injury; contusion (5 sources) Contusion of right shoulder, initial encounter; Translations: [Contusion of right hip, initial encounter] Onset: 08-08-2022 Episodic Syncope (1 source) Syncope and collapse; Translations: [Syncope and collapse] Onset: 07-07-2024 Episodic Thyroid disorders (17 sources) Non-toxic multinodular goiter; 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] Onset: 04-13-2024 4 Chronic Urinary tract infections (1 source) Urinary tract infectious disease; Translations: [Urinary tract infection, site not specified] Onset: 07-07-2024 Episodic Past or Other Problems Problem Classification Problem Date Documented Date Episodic/Chronic Acute cerebrovascular disease (13 sources) Cerebrovascular accident; Translations: [Cerebral infarction, unspecified] Onset: 4 Resolved: 03-25-2024 Chronic Acute myocardial infarction (16 sources) Myocardial infarction; Translations: [Acute myocardial infarction, unspecified] Onset: 4 Resolved: 11-28-2020 Chronic Asthma (16 sources) Asthma; Translations: [Unspecified asthma, uncomplicated] Onset: 4 Resolved: 05-02-2016 Chronic Calculus of urinary tract (13 sources) Kidney stone; Translations: [Calculus of kidney] Onset: 4 Resolved: 4 03-25-2024 Episodic Chronic obstructive pulmonary disease and bronchiectasis (13 sources) Purulent bronchitis; Translations: [Mucopurulent chronic bronchitis] Onset: 4 Resolved: 4 03-25-2024 Chronic Diabetes mellitus without complication (20 sources) Diabetes mellitus; Translations: [Type 2 diabetes mellitus] Onset: 4 Resolved: 05-02-2016 Chronic Disorders of lipid metabolism (20 sources) Hyperlipidemia; Translations: [Hyperlipidemia, unspecified] Onset: 3 Resolved: 11-30-2020 Chronic E Codes: Fall (1 source) Unspecified fall, initial encounter; Translations: [UNSPECIFIED FALL INITIAL ENCOUNTER] Onset: 3 Episodic E Codes: Unspecified (13 sources) Accident while engaged in work-related activity; Translations: [Civilian activity done for income or pay] Onset: 7 Resolved: 4 03-25-2024 Episodic Essential hypertension (16 sources) Hypertensive disorder; Translations: [Essential (primary) hypertension] Onset: 4 Resolved: 4 09-19-2020 Chronic Gout and other crystal arthropathies (20 sources) Chondrocalcinosis of joint of right knee; Translations: [Other chondrocalcinosis, right knee] Onset: 4 Resolved: 4 03-25-2024 Chronic Joint disorders and dislocations; trauma-related (13 sources) Loose body in knee; Translations: [Loose body in knee, unspecified knee] Onset: 4 Resolved: 4 03-25-2024 Chronic Joint disorders and dislocations; trauma-related (16 sources) Tear of medial meniscus of knee; Translations: [Other tear of medial meniscus, current injury, unspecified knee, initial encounter] Onset: 4 Resolved: 4 09-19-2020 Episodic Osteoarthritis (20 sources) Arthritis; Translations: [Unspecified osteoarthritis, unspecified site] Onset: 4 Resolved: 4 03-25-2024 Chronic Other and unspecified benign neoplasm (19 sources) Lipoma of back; Translations: [Benign lipomatous neoplasm of skin and subcutaneous tissue of trunk] Onset: 4 Resolved: 4 11-28-2020 Episodic Other connective tissue disease (4 sources) Pain in right lower leg; Translations: [PAIN IN RIGHT LOWER LEG] Onset: 2 Episodic Other connective tissue disease (13 sources) Trochanteric bursitis; Translations: [Trochanteric bursitis, left hip] Onset: 4 Resolved: 4 03-25-2024 Episodic Other connective tissue disease (13 sources) Pain in right lower limb; Translations: [Pain in right leg] Onset: 7 Resolved: 4 03-25-2024 Episodic Other connective tissue disease (1 source) Pain in left finger(s); Translations: [Pain in left finger(s)] Onset: 4 Episodic Other ear and sense organ disorders (15 sources) Hearing loss; Translations: [Unspecified hearing loss, unspecified ear] Onset: 4 Resolved: 4 03-25-2024 Chronic Other ear and sense organ disorders (13 sources) Sensorineural hearing loss, bilateral; Translations: [Sensorineural hearing loss, bilateral] Onset: 4 Resolved: 4 03-25-2024 Chronic Other ear and sense organ disorders (13 sources) Bilateral tinnitus; Translations: [Tinnitus, bilateral] Onset: 4 Resolved: 4 03-25-2024 Episodic Other ear and sense organ disorders (13 sources) Pain of ear structure; Translations: [Otalgia, unspecified ear] Onset: 4 Resolved: 4 03-25-2024 Episodic Other nervous system disorders (13 sources) Paresthesia of hand ; Translations: [Paresthesia of skin] Onset: 4 Resolved: 4 03-25-2024 Episodic Other non-traumatic joint disorders (3 sources) Pain in right shoulder; Translations: [PAIN IN RIGHT SHOULDER] Onset: 3 Episodic Other nutritional; endocrine; and metabolic disorders (16 sources) Body mass index 30+ - obesity; Translations: [Obesity, unspecified] Onset: 4 Resolved: 4 11-30-2020 Chronic Other nutritional; endocrine; and metabolic disorders (16 sources) History of hypercholesterolemia; Translations: [Personal history of other endocrine, nutritional and metabolic disease] Onset: 4 Resolved: 4 05-02-2016 Episodic Other screening for suspected conditions (not mental disorders or infectious disease) (1 source) Encounter for screening mammogram for malignant neoplasm of breast; Translations: [ENC SCR MAMMO MALIG NEOPLASM BREAST] Onset: 2 Episodic Pneumonia (except that caused by tuberculosis or sexually transmitted disease) (13 sources) Pneumonia; Translations: [Pneumonia, unspecified organism] Onset: 4 Resolved: 4 03-25-2024 Episodic Residual codes; unclassified (1 source) Family history of leukemia; Translations: [FAMILY HISTORY OF LEUKEMIA] Onset: 2 Episodic Residual codes; unclassified (1 source) Family history of malignant neoplasm, unspecified; Translations: [FAM HX MALIGNANT NEOPLASM UNS] Onset: 2 Episodic Residual codes; unclassified (13 sources) Tobacco user; Translations: [Tobacco use] Onset: 4 Resolved: 4 03-25-2024 Episodic Spondylosis; intervertebral disc disorders; other back problems (13 sources) Herniation of nucleus pulposus of lumbar intervertebral disc; Translations: [Other intervertebral disc displacement, lumbar region] Onset: 4 Resolved: 4 03-25-2024 Chronic Spondylosis; intervertebral disc disorders; other back problems (20 sources) Backache; Translations: [Dorsalgia, unspecified] Onset: 4 Resolved: 4 03-25-2024 Episodic Substance-related disorders (19 sources) Cigarette smoker ; Translations: [Smoker] Onset: 4 Resolved: 4 11-28-2020 Chronic Comment on above: Added secondary to d ocumentation in Social History. Thyroid disorders (2 sources) Thyroid dysfunction; Translations: [...] Locations R1: This test was performed at: [facility], [address] [place] [address], [phone] , [place], Normal [facility] Comment on above: Performed By: #### 2 [id number] #### [facility] [address] [place] [address] ED Note-Physicianon 07-09-20 ED Note-Physician ED Note-Physician [...] syncopal episode at work. Patient works at [employer] and states all of a sudden she [...] if appl (more content not included)... Normal [facility] Comment on above: Result Comment: Elec tronically Signed By: Kelly Smith PA-C\.br\Date and Time Signed: 07/08/24 02:10 EST\.br\Electronically Co-Signed By: Ean Azevedo M.D.\.br\Date and Time Co-Signed: 07/09/24 07:05 EST ABO/Rh History Checkon 07-08 ABO/Rh History Check Patient discharged prior Normal [facility] Comment on above: Performed By: #### [id number] #### [facility] [address] [place] [address] CT Abdomen/Pelvis w/ Contras ton 07-08-2024 CT [...] 300 Contrast amount in ml's: 130 Normal [facility] CT Chest w/ Contraston 07-08 CT [...] Contrast amount in ml's: 130 Normal [facility] CT Head or Brain w/o [...] MD Transcribed by: JOSH Technologist: YONIS Normal [facility] CT Spine Cervical w/o Contra ston [...] MD Transcribed by: JOSH Technologist: YONIS Normal [facility] ABO/Rhon 07-07-2024 ABO/Rh Positive Invalid Interpretation Code [facility] Comment on above: Performed By: #### [id number] #### [facility] [address] [place] [address] ABSCon 07-07-2024 ABSC Gel Interp Negative Normal [facility] Comment on above: Performed By: #### 1 [id number] #### [facility] [address] [place] [address] B hCG [place] 07-07-2024 Beta HCG ( test) Ql Negative Normal [facility] Comment on above: Performed By: #### 2 [id number] #### [facility] [address] [facility] [place] [facility] [place] [address] BLOOD BANKOrdered By: Willard Greenwood on 07-07-2024 ABO/Rh Interp Positive Invalid Interpretation Code [facility] [place] Subsection ABSC Gel Interp Negative (07/07/24 6:48 PM) Normal [facility] [place] Subsection BMPon 07-07-2024 Anion gap [Moles/Vol] 11 mmol/L Normal 6-16 [facility] Comment on above: Performed By: #### 2 [id number] #### [facility] [address] [place] [address] Calcium [Mass/Vol] 9.1 mg/dL Normal 8.9-11.1 [facility] Comment on above: Performed By: #### 2 [id number] #### [facility] [address] [facility] [place] [address] Chloride [Moles/Vol] 104 mmol/L Normal 101-111 [facility] Comment on above: Performed By: #### 2 [id number] #### [facility] [address] [place] [address] CO2 [Moles/Vol] 26 mmol/L Normal 21-31 [facility] Comment on above: Performed By: #### 2 [id number] #### [facility] [address] [place] [address] Creatinine [Mass/Vol] 1.8 mg/dL High 0.5-1.3 [facility] Comment on above: Performed By: #### 2 [id number] #### [facility] [address] [place] [address] Glucose [Mass/Vol] 154 mg/dL Normal 55-199 [facility] Comment on above: Performed By: #### 2 [id number] #### [facility] [address] [place] [address] Potassium [Moles/Vol] 3.6 mmol/L Normal 3.5-5.3 [facility] Comment on above: Performed By: #### 2 [id number] #### [facility] [address] [place] [address] Sodium [Moles/Vol] 137 mmol/L Normal 135-145 [facility] Comment on above: Performed By: #### 2 [id number] #### [facility] [address] [place] [address] Urea nitrogen [Mass/Vol] 23 mg/dL High 5-21 [facility] Comment on above: Performed By: #### 2 [id number] #### [facility] [address] [place] [address] Urea nitrogen/Creatinine [Mass ratio] 13 No Units Normal 10-20 [facility] Comment on above: Performed By: #### 2 [id number] #### [facility] [address] [place] [address] Blood Bank ID#on 07-07-2024 BBID# [id number] Invalid Interpretation Code [facility] Comment on above: Performed By: #### 1 [id number] #### [facility] [address] [place] [address] CBC w/ Auto Diffon 4 Basophils/100 WBC (Bld) 0.6 % Normal 0.0-2.0 [facility] Comment on above: Result Comment: Amy ection date/time has been modified to: 18:23:00. Previous collection date/time: 18:45:00. Performed By: #### 2 [id number] #### [facility] [address] [place] [address] Basophils/Leukocytes Auto (Bld) [Pure # fraction] 0.1 E9/L Normal 0.0-0.2 [facility] Comment on above: Result Comment: Amy ection date/time has been modified to: 18:23:00. Previous collection date/time: 18:45:00. Performed By: #### 2 [id number] #### [facility] [address] [place] [address] Eosinophils (Bld) [#/Vol] 0.3 E9/L Normal 0.0-0.5 [facility] Comment on above: Result Comment: Amy ection date/time has been modified to: 18:23:00. Previous collection date/time: 18:45:00. Performed By: #### 2 [id number] #### [facility] [address] [place] [address] Eosinophils/100 WBC (Bld) 3.1 % Normal 0.0-8.0 [facility] Comment on above: Result Comment: Amy ection date/time has been modified to: 18:23:00. Previous collection date/time: 18:45:00. Performed By: #### 2 [id number] #### [facility] [address] [place] [address] Erythrocyte distribution width (RBC) [Ratio] 15.1 % High 10.9-14.2 [facility] Comment on above: Result Comment: Amy ection date/time has been modified to: 18:23:00. Previous collection date/time: 18:45:00. Performed By: #### 2 [id number] #### [facility] [address] [place] [address] Hematocrit (Bld) [Volume fraction] 38.3 % Normal 34.0-46.0 [facility] Comment on above: Result Comment: Amy ection date/time has been modified to: 18:23:00. Previous collection date/time: 18:45:00. Performed By: #### 2 [id number] #### [facility] [address] [place] [address] Hemoglobin (Bld) [Mass/Vol] 12.7 g/dL Normal 12.0-16.0 [facility] Comment on above: Result Comment: Amy ection date/time has been modified to: 18:23:00. Previous collection date/time: 18:45:00. Performed By: #### 2 [id number] #### [facility] [address] [place] [address] Lymphocytes (Bld) [#/Vol] 2.4 E9/L Normal 1.0-4.0 [facility] Comment on above: Result Comment: Amy ection date/time has been modified to: 18:23:00. Previous collection date/time: 18:45:00. Performed By: #### 2 [id number] #### [facility] [address] [place] [address] Lymphocytes/100 WBC (Bld) 26.6 % Normal 14.0-50.0 [facility] Comment on above: Result Comment: Amy ection date/time has been modified to: 18:23:00. Previous collection date/time: 18:45:00. Performed By: #### 2 [id number] #### [facility] [address] [place] [address] MCH (RBC) [Entitic mass] 29.9 pg Normal 27.0-34.0 [facility] Comment on above: Result Comment: Amy ection date/time has been modified to: 18:23:00. Previous collection date/time: 18:45:00. Performed By: #### 2 [id number] #### [facility] [address] [place] [address] MCHC (RBC) [Mass/Vol] 33.1 g/dL Normal 31.4-36.0 [facility] Comment on above: Result Comment: Amy ection date/time has been modified to: 18:23:00. Previous collection date/time: 18:45:00. Performed By: #### 2 [id number] #### [facility] [address] [place] [address] MCV (RBC) [Entitic vol] 90.2 fL Normal 80.0-100.0 [facility] Comment on above: Result Comment: Amy ection date/time has been modified to: 18:23:00. Previous collection date/time: 18:45:00. Performed By: #### 2 [id number] #### [facility] [address] [place] [address] Monocytes (Bld) [#/Vol] 0.5 E9/L Normal 0.2-1.0 [facility] Comment on above: Result Comment: Amy ection date/time has been modified to: 18:23:00. Previous collection date/time: 18:45:00. Performed By: #### 2 [id number] #### [facility] [address] [place] [address] Neutrophils (Bld) [#/Vol] 5.8 E9/L Normal 2.0-7.5 [facility] Comment on above: Result Comment: Amy ection date/time has been modified to: 18:23:00. Previous collection date/time: 18:45:00. Performed By: #### 2 [id number] #### [facility] [address] [place] [address] Neutrophils/100 WBC (Bld) 64.2 % Normal 36.0-75.0 [facility] Comment on above: Result Comment: Amy ection date/time has been modified to: 18:23:00. Previous collection date/time: 18:45:00. Performed By: #### 2 [id number] #### [facility] [address] [place] [address] Platelet mean volume (Bld) [Entitic vol] 10.1 fL Normal 6.4-10.8 [facility] Comment on above: Result Comment: Amy ection date/time has been modified to: 18:23:00. Previous collection date/time: 18:45:00. Performed By: #### 2 [id number] #### [facility] [address] [place] [address] Platelets (Bld) [#/Vol] 183.0 E9/L Normal 150.0-500.0 [facility] Comment on above: Result Comment: Amy ection date/time has been modified to: 18:23:00. Previous collection date/time: 18:45:00. Performed By: #### 2 [id number] #### [facility] [address] [place] [address] RBC (Bld) [#/Vol] 4.2 E12/L Low 4.3-5.9 [facility] Comment on above: Result Comment: Amy ection date/time has been modified to: 18:23:00. Previous collection date/time: 18:45:00. Performed By: #### 2 [id number] #### [facility] [address] [place] [address] WBC corrected for nucl RBC Auto (Bld) [#/Vol] 9.1 E9/L Normal 4.0-11.0 [facility] Comment on above: Result Comment: Amy ection date/time has been modified to: 18:23:00. Previous collection date/time: 18:45:00. Performed By: #### 2 [id number] #### [facility] [address] [place] [address] Basophils/100 WBC (Bld) 0.6 % Normal 0.0-2.0 [facility] Comment on above: Performed By: #### 2 [id number] #### [facility] [address] [place] [address] Basophils/Leukocytes Auto (Bld) [Pure # fraction] 0.1 E9/L Normal 0.0-0.2 [facility] Comment on above: Performed By: #### 2 [id number] #### [facility] [address] [place] [address] Eosinophils (Bld) [#/Vol] 0.3 E9/L Normal 0.0-0.5 [facility] Comment on above: Performed By: #### 2 [id number] #### [facility] [address] [place] [address] Eosinophils/100 WBC (Bld) 3.1 % Normal 0.0-8.0 [facility] Comment on above: Performed By: #### 2 [id number] #### [facility] [address] [place] [address] Erythrocyte distribution width (RBC) [Ratio] 15.1 % High 10.9-14.2 [facility] Comment on above: Performed By: #### 2 [id number] #### [facility] [address] [place] [address] Hematocrit (Bld) [Volume fraction] 38.3 % Normal 34.0-46.0 [facility] Comment on above: Performed By: #### 2 [id number] #### [facility] [address] [place] [address] Hemoglobin (Bld) [Mass/Vol] 12.7 g/dL Normal 12.0-16.0 [facility] Comment on above: Performed By: #### 2 [id number] #### [facility] [address] [place] [address] Lymphocytes (Bld) [#/Vol] 2.4 E9/L Normal 1.0-4.0 [facility] Comment on above: Performed By: #### 2 [id number] #### [facility] [address] [place] [address] Lymphocytes/100 WBC (Bld) 26.6 % Normal 14.0-50.0 [facility] Comment on above: Performed By: #### 2 [id number] #### [facility] [address] [place] [address] MCH (RBC) [Entitic mass] 29.9 pg Normal 27.0-34.0 [facility] Comment on above: Performed By: #### 2 [id number] #### [facility] [address] [place] [address] MCHC (RBC) [Mass/Vol] 33.1 g/dL Normal 31.4-36.0 [facility] Comment on above: Performed By: #### 2 [id number] #### [facility] [address] [place] [address] MCV (RBC) [Entitic vol] 90.2 fL Normal 80.0-100.0 [facility] Comment on above: Performed By: #### 2 [id number] #### [facility] [address] [place] [address] Monocytes (Bld) [#/Vol] 0.5 E9/L Normal 0.2-1.0 [facility] Comment on above: Performed By: #### 2 [id number] #### [facility] [address] [place] [address] Neutrophils (Bld) [#/Vol] 5.8 E9/L Normal 2.0-7.5 [facility] Comment on above: Performed By: #### 2 [id number] #### [facility] [address] [place] [address] Neutrophils/100 WBC (Bld) 64.2 % Normal 36.0-75.0 [facility] Comment on above: Performed By: #### 2 [id number] #### [facility] [address] [place] [address] Platelet mean volume (Bld) [Entitic vol] 10.1 fL Normal 6.4-10.8 [facility] Comment on above: Performed By: #### 2 [id number] #### [facility] [address] [place] [address] Platelets (Bld) [#/Vol] 183.0 E9/L Normal 150.0-500.0 [facility] Comment on above: Performed By: #### 2 [id number] #### [facility] [address] [place] [address] RBC (Bld) [#/Vol] 4.2 E12/L Low 4.3-5.9 [facility] Comment on above: Performed By: #### 2 [id number] #### [facility] [address] [place] [address] WBC corrected for nucl RBC Auto (Bld) [#/Vol] 9.1 E9/L Normal 4.0-11.0 [facility] Comment on above: Performed By: #### 2 [id number] #### [facility] [address] [place] [address] CHEMISTRYOrdered By: SYSTEM SYSTEM on 07-07-2024 Amphetamines [...] Sensitivity Troponin I Instructions For Use, Lalito Hollis, February 2018) Urea nitrogen [Mass/Vol] 23 mg/dL High 5 - 21 mg/dL [facility] Urea nitrogen/Creatinine [Mass ratio] 13 mg/mg Normal 10 - 20 [facility] CKon 07-07-2024 Total CK 149 Int._Unit/L Normal 14-261 [facility] Comment on above: Performed By: #### 2 [id number] #### [facility] [address] [place] [address] COAGULATIONOrdered By: Leslie Chavez on 07-07-2024 aPTT Coag (PPP) [Time] 31.1 s Normal 25.1 - 36.5 second(s) [facility] [place] [facility] Comment on above: Interpretive Data: [...] the same coagulation reagent and instrumentation as [facility] [place]. Currently there are no coagulation studies available worldwide for children to 14 days, and no normal ranges. Heparin therapeutic range (represented by Anti-Factor Xa activity of 0.2 - 0.4 U/mL) corresponds to PTT of 56.6 - 109.0 sec. INR Coag (PPP) [Relative time] 0.92 {INR} Invalid Interpretation Code [facility] [place] [facility] Comment on above: Interpretive Data: I NR results are specifically intended to assess patients stabilized on long-term Anticoagulation therapy suggested INR s Less Intensive Anticoagulation 2.0 3.0 Conventional Range 3.0 4.5 PT Coag (PPP) [Time] 10.3 s Normal 9.4 - 1 2.5 second(s) [facility] [place] [facility] Comment on above: Interpretive Data: [...] the same coagulation reagent and instrumentation as [facility] [place]. Currently there are no coagulation studies available worldwide for children to 14 days, and no normal ranges. ED Clinical Summaryon 2023 ED Clinical Summary ED Clinical Summary [address] [address] ED Clinical Summary Person Information Name: VIRGEN GONZALES [facility] Age: 68 Years : 1955 Sex: Female Language: Lithuanian PCP: AGGIE DAVIS CNP Marital Status: Visit [...] 22:29:17 07/07/2024 22:29:17 ADDRESS: [id number] [place] [phone] PHYS DOC NOTES: MEDICAL INFORMATION: Prescriptions Given: New Medications [facility] 1987, [address] [facility][Note 3] [address] [place], [place] [id number], [phone] cephalexin (cephalexin 500 mg Cap) 1 Capsules [...] EDUCATION INFORMATION: Instructions: Urinary Tract Infection, Adult, Pmpc-cr-Kdrh; Syncope, Adult, Uhyk-oc-Jvul; Head Injury, Adult, Vomi-ai-Kfwc; Contusion, Cynt-er-Hyws Follow up: With: Address: When: AGGIE DAVIS [address] [place] [id number] [phone] Business (more content not included)... Normal [facility] ED Patient Summaryon 024 ED Patient Summary ED Patient Summary [place] [id number] Patient Discharge Instructions Person Information Name: VIRGEN GONZALES Age: 68 Years Arrival Date: 07/07/2024 18:16:48 Discharge Diagnosis: 1:Contusion of occipital region of scalp; 2:Syncope and collapse; 3:Acute lower urinary tract infection Primary Care Physician: AGGIE DAVIS CNP Provider Information Primary Provider: Tiny Fallon DO Advanced Apprenticeship Consultant:None The exam and treatment you received in the Emergency Department were for an urgent problem and are not intended as complete care. It is important that you follow up with a doctor, nurse practitioner, or physician???s assistant signal maintainer for ongoing care. If your symptoms become worse or you do not improve as expected and you are unable to reach your usual health care provider, you should return to the Emergency Department. We are available 24 hours a day. VIRGEN GONZALES has been given the following list of patient education materials, prescriptions and follow-up instructions: Follow-up Instructions: With: Address: When: AGGIE DAVIS [address] [place] [phone] ROKT (1) In 3 days 07/10/2024 In the event that this physician does not participate in your insurance network, please consult with your insurance company to find a nearby participating provider. Patient Education Materials: Urinary Tract Infection, Adult, Szzz-jy-Neaz; Syncope, Adult, Nybt-vi-Holc; Head Injury, Adult, Andg-xt-Mmli; Contusion, Wtmq-io-Xhqd A MESSAGE TO ALL PATIENTS REGARDING OPIOIDS PRESCRIPTION OPIOIDS: WHAT YOU NEED TO KNOW Prescription opioids can be used to help relieve amrnexsy-um-zjfrmt pain and are often prescribed following a [...] (www.fda.gov/Drugs/Res ourcesFo (more content not included)... Normal [facility] Ethanolon 07-07-2024 Ethanol Lvl <10 Normal <=11 [facility] Comment on above: Performed By: #### 2 [id number] #### [facility] [address] [place] [address] HEMATOLOGYOrdered By: SYSTEM SYSTEM on 07-07-2024 Basophils/100 [...] 07-07-2024 Albumin [Mass/Vol] 3.9 g/dL Normal 3.3-5.0 [facility] Comment on above: Performed By: #### 2 [id number] #### [facility] [address] [place] [address] Albumin/Globulin (S) [Mass conc ratio] 1.4 Normal 1.1-2.2 [facility] Comment on above: Performed By: #### 2 [id number] #### [facility] [address] [place] [address] ALP [Catalytic activity/Vol] 112 Int._Unit/L High 21-98 [facility] Comment on above: Performed By: #### 2 [id number] #### [facility] [address] [place] [address] ALT No additional P-5'-P [Catalytic activity/Vol] 11 Int._Unit/L Normal 6-46 [facility] Comment on above: Performed By: #### 2 [id number] #### [facility] [address] [place] [address] AST [Catalytic activity/Vol] 13 Int._Unit/L Normal 5-43 [facility] Comment on above: Performed By: #### 2 [id number] #### [facility] [address] [place] [address] Bilirubin [Mass/Vol] 0.4 mg/dL Normal 0.0-1.1 [facility] Comment on above: Performed By: #### 2 [id number] #### [facility] [address] [place] [address] Bilirubin.direct [Mass/Vol] 0.1 mg/dL Normal 0.0-0.4 [facility] Comment on above: Performed By: #### 2 [id number] #### [facility] [address] [place] [address] Bilirubin.indirect [Mass or moles/Vol] 0.3 mg/dL Normal 0.1-0.9 [facility] Comment on above: Performed By: #### 2 [id number] #### [facility] [address] [place] [address] Globulin (S) [Mass/Vol] 2.8 g/dL Normal 1.4-4.0 [facility] Comment on above: Performed By: #### 2 [id number] #### [facility] [address] [place] [address] Protein [Mass/Vol] 6.7 g/dL Normal 6.0-7.8 [facility] Comment on above: Performed By: #### 2 [id number] #### [facility] [address] [place] [address] Lactic Acidon 07-07-2024 Lactic Acid Lvl 0.9 mmol/L Normal 0.5-2.2 [facility] Comment on above: Performed By: #### 2 [id number] #### [facility] [address] [place] [address] Lipase Levelon 07-07-2024 Lipase [Catalytic activity/Vol] 22 U/L Normal 13-58 [facility] Comment on above: Performed By: #### 2 [id number] #### [facility] [address] [place] [address] Magnesiumon 07-07-2024 Magnesium [Mass/Vol] 2.2 mg/dL Normal 1.3-2.4 [facility] Comment on above: Performed By: #### 2 [id number] #### [facility] [address] [place] [address] Myoglobinon 07-07-2024 Myoglobin [Mass/Vol] 128 ng/mL High <=69 [facility] Comment on above: Performed By: #### 2 [id number] #### [facility] [address] [place] [address] PT & PTTon 07-07-2024 aPTT Coag (PPP) [Time] 31.1 second(s) Normal 25.1-36.5 [facility] Comment on above: Result Comment: Para [...] the same coagulation reagent and instrumentation as [facility] [place]. Currently there are no coagulation studies available worldwide for children to 14 days, and no normal ranges. Heparin therapeutic range (represented by Anti-Factor Xa activity of 0.2 - 0.4 U/mL) corresponds to PTT of 56.6 - 109.0 sec. Performed By: #### 1 [id number] #### [facility] [address] [place] [address] INR Coag (PPP) [Relative time] 0.92 {INR} Invalid Interpretation Code [facility] Comment on above: Result Comment: INR results are specifically intended to assess patients stabilized on long-term Anticoagulation therapy suggested INR???s ???Less Intensive Anticoagulation??? 2.0 ??? 3.0 Conventional Range 3.0 ??? 4.5 Performed By: #### 1 [id number] #### [facility] [address] [place] [address] PT Coag (PPP) [Time] 10.3 second(s) Normal 9.4-12.5 [facility] Comment on above: Result Comment: 15 [...] the same coagulation reagent and instrumentation as [facility] [place]. Currently there are no coagulation studies available worldwide for children to 14 days, and no normal ranges. Performed By: #### 1 [id number] #### [facility] [address] [place] [address] SEROLOGYOrdered By: Gerri Chavez on 07-07-2024 Beta HCG ( test) Ql Negative (07/07/24 6:23 PM) Normal [facility] Man Sero Troponinon 07-07-2024 Troponin HS 10.70 pg/mL Normal 10.10-27.10 [facility] Comment on above: Result Comment: The 95% CI (Confidence Interval) PPV (Positive Predictive Value) for myocardial infarction in females is 38 pg/mL, in males 51 pg/mL. The results should be used in conjunction with clinical conditions of myocardial infarction. (Access High Sensitivity Troponin I Instructions For Use, Lalito Torri, February 2018) Performed By: #### 2 [id number] #### [facility] [address] [place] [address] U Drug Screenon 07-07-2024 Amphetamines Screen method >1000 ng/mL Ql (U) Negative Normal NEGATIVE [facility] Comment on above: Result Comment: Nega tive Cutoff: <1000 ng/mL Performed By: #### 2 [id number] #### [facility] [address] [place] [address] Barbiturates Screen Ql (U) Negative Normal NEGATIVE [facility] Comment on above: Result Comment: Nega tive Cutoff: <200 ng/mL Performed By: #### 2 [id number] #### [facility] [address] [place] [address] Benzodiazepines Ql (U) Negative Normal NEGATIVE [facility] Comment on above: Result Comment: Nega tive Cutoff: <200 ng/mL Performed By: #### 2 [id number] #### [facility] [address] [place] [address] Cannabinoids Screen Ql (U) Negative Normal NEGATIVE [facility] Comment on above: Result Comment: Nega tive Cutoff: <50 ng/mL Performed By: #### 2 [id number] #### [facility] [address] [place] [address] Cocaine Ql (U) Negative Normal NEGATIVE [facility] Comment on above: Result Comment: Nega tive Cutoff: <300 ng/mL Performed By: #### 2 [id number] #### [facility] [address] [place] [address] Opiates Screen Ql (U) Negative Normal NEGATIVE [facility] Comment on above: Result Comment: Nega tive Cutoff: <300 ng/mL Performed By: #### 2 [id number] #### [facility] [address] [place] [address] Phencyclidine Screen method >25 ng/mL Ql (U) Negative Normal NEGATIVE [facility] Comment on above: Result Comment: Nega tive Cutoff: <25 ng/mL These drug screen results are to be used for medical (i.e., treatment) purposes only. Unconfirmed drug screening results must not be used for non-medical purposes (e.g., employment testing, legal testing). Performed By: #### 2 [id number] #### [facility] [address] [place] [address] U Fentanyl Negative Normal NEGATIVE [facility] Comment on above: Result Comment: Nega tive Cutoff: <5 ng/mL These drug screen results are to be used for medical (i.e., treatment) purposes only. Unconfirmed drug screening results must not be used for non-medical purposes (e.g., employment testing, legal testing). Performed By: #### 2 [id number] #### [facility] [address] [place] [address] UA with Cult Rflxon 07-07-20 24 Bacteria Auto Ql (U) 1+ /HPF Abnormal Trace [facility] Comment on above: Performed By: #### 4 [id number] #### [facility] [address] [place] [address] Bilirubin Ql (U) Negative Normal Negative [facility] Comment on above: Performed By: #### 4 [id number] #### [facility] [address] [place] [address] Clarity (U) Ex.Turbid Abnormal Clear [facility] Comment on above: Performed By: #### 4 [id number] #### [facility] [address] [place], [place] [id number] Color (U) Light[place] Abnormal Yellow [facility] Comment on above: Result Comment: Micr oscopic readings are only performed on those samples that meet specific criteria set forth by [facility]. Performed By: #### 4 [id number] #### [facility] [address] [place], [place] [address] Epithelial cells.squamous Auto (Urine sed) [#/Area] >10 Invalid Interpretation Code [facility] Comment on above: Performed By: #### 4 [id number] #### [facility] [address] [place] [address] Glucose Ql (U) 4+ mg/dL Abnormal Negative [facility] Comment on above: Performed By: #### 4 [id number] #### [facility] [address] [place] [address] Hemoglobin Auto test strip (U) [Mass/Vol] 1+ mg/dL Abnormal Negative [facility] Comment on above: Performed By: #### 4 [id number] #### [facility] [address] [place] [address] Ketones Auto test strip Ql (U) Negative Normal Negative [facility] Comment on above: Performed By: #### 4 [id number] #### [facility] [address] [place] [address] Leukocyte esterase Auto test strip Ql (U) 500 Isidoro/uL Abnormal Negative [facility] Comment on above: Performed By: #### 4 [id number] #### [facility] [address] [place] [address] Mucus Auto Ql (U) Negative Normal Negative [facility] Comment on above: Performed By: #### 4 [id number] #### [facility] [address] [place] [address] Nitrite Auto test strip Ql (U) Negative Normal Negative [facility] Comment on above: Performed By: #### 4 [id number] #### [facility] [address] [place] [address] pH (U) 6.5 [pH] Invalid Interpretation Code 5.0-9.0 [facility] Comment on above: Performed By: #### 4 [id number] #### [facility] [address] [place] [address] Protein Ql (U) Trace Abnormal Negative [facility] Comment on above: Performed By: #### 4 [id number] #### [facility] [address] [place] [address] RBC Ql (U) 31-75 Abnormal 0-3 [facility] Comment on above: Performed By: #### 4 [id number] #### [facility] [address] [place] [address] Specific gravity (U) [Rel density] 1.019 Invalid Interpretation Code 1.005-1.030 [facility] Comment on above: Performed By: #### 4 [id number] #### [facility] [address] [place] [address] Urobilinogen (U) [Mass/Vol] Negative Normal Negative [facility] Comment on above: Performed By: #### 4 [id number] #### [facility] [address] [place] [address] WBC Auto (Urine sed) [#/Area] 31-75 Abnormal 0-5 [facility] Comment on above: Performed By: #### 4 [id number] #### [facility] [address] [place] [address] Yeast.budding Computer assisted Ql (U) Trace Abnormal [facility] Comment on above: Performed By: #### 4 [id number] #### [facility] [address] [place] [address] Type of Urine collection method Clean Catch Normal [facility] Comment on above: Performed By: #### 4 [id number] #### [facility] [address] [place], [place] [id number] URINALYSISOrdered By: SYSTEM SYSTEM on 07-07-2024 Bacteria Auto Ql (U) 1+ /HPF Invalid Interpretation Code Trace/HPF [facility] [place] Auto SS Bilirubin Ql (U) Negative Normal Negativemg/ d L [facility] [place] [facility] Auto SS Clarity (U) Ex.Turbid *ABN* (07/07/24 7:41 PM) Invalid Interpretation Code Clear [facility] [place] [facility] Auto SS Color (U) [place] 3 *ABN* (07/07/24 7:41 PM) Invalid Interpretation Code Yellow [facility] [place] [facility] Auto SS Comment on above: Interpretive Data: M icroscopic readings are only performed on those samples that meet specific criteria set forth by [facility]. Epithelial cells.squamous Auto (Urine sed) [...] Desc Clean Catch (07/07/24 7:41 PM) Normal [facility] UA Auto SS eGFRon 07-07-2024 eGFR 30 mL/min/1.73 m2 Low >=59 [facility] Comment on above: Performed By: #### 1 [id number] #### [facility] [address] [place] [address] Kobe 04-13-2024 L Specimen: [id number] Received: 04/15/24-1244 Status: SOUT Req Num: [id number] Spec Type: Cytology Subm Dr: Da Phillip DO Tissues: A FNA SLIDES NOPATH (RT THYR) B FNA SLIDES NOPATH (THY ISTHM) Procedures: Cyto Int and Re/2, PAPSTN/22 Age/ Patient Sex Location Account Attending Physician Virgen Gonzales 68/F [place] [id number] Da Phillip DO SPEC NUM: [id number] RECD: 04/15/24 STATUS: ANIRUDH ANDRADE NUM: [id number] AMY: 04/13/24-[address]: Da Phillip DO ENTERED: 04/15/[address]: SPEC TYPE: Cytology DEPT: CNG ENTERED BY: [id number] RECV BY: [id number] ORDERED: Cyto Int and Re/2, PAPSTN/22 ORDERED: [...] 1 Entered: 05/11/24-1009 Supplemental for findings of [facility]UFACTURING PROJECT MANAGER: -Ensemble Television Inspector -Benign (risk of malignancy 4%) ---- Specimen: [id number] Received: 04/15/24 Status: ANIRUDH Andrade Num: [id number] Spec Type: Cytology Subm Dr: Da Phillip DO Tissues: A FNA SLIDES NOPATH (RT THYR) B FNA SLIDES NOPATH (THY ISTHM) Procedures: Cyto Int and Re/2, PAPSTN/22 ---- Patient: Virgen Gonzales [id number] (Continued) ---- Specimen: [id number] Received: 04/15/24 (Continued) Supplemental Report (Continued) Signed (signature on file) Noemy De Los Santos MD 04/21/24 1010 ---- Specimen: [id number] Received: 04/15/24 Status: ANIRUDH Andrade Num: [id number] Spec Type: Cytology Subm Dr: Da Phillip DO Tissues: A FNA SLIDES NOPATH (RT THYR) B FNA SLIDES NOPATH (THY ISTHM) Procedures: Cyto Int and Re/2, PAPSTN/22 ---- Patient: Virgen Gonzales [id number] (Continued) ---- Specimen: [id number] Received: 04/15/24-1244 (Continued) Supplemental Report (Continued) -Xpression [place] -N/A -Other Classifiers -BRAF: Negative -RET/PTC1: Not [...] atypia of undetermined significance, the category 3 [place] system -Pending additional molecular triage study to follow B, instruments thyroid nodule, FNA cytology: -A few follicular cells are present in combined smears, including occasional small and/or loose follicular groups, adequately for assessment, often showing small round to ovoid nuclei, consistent with the category 2 [place] system: Benign ---- Specimen: [id number] Received: 04/15/24 Status: ROSALINALyudmila Andrade Num: [id number] Spec Type: Cytology Subm Dr: Da PhillipDO Tissues: A FNA SLIDES NOPATH (RT THYR) B FNA SLIDES NOPATH (THY ISTHM) Procedures: Cyto Int and Re/2, PAPSTN/22 ---- Patient: Virgen Gonzales [id number] (Continued) ---- Specimen: [id number] Received: 04/15/24 (Continued) Signed (signature on file) Noemy De Los Santos MD 04/21/24 1010 ---- Specimen: [id number] Received: 04/15/24-1243 Status: ANIRUDH Andrade Num: [id number] Spec Type: Cytology Subm Dr: Da Phillip,DO Tissues: A FNA SLIDES NOPATH (RT THYR) B FNA SLIDES N (more content not included)... Normal [facility] Thyrotropin [Units/volume] i n Serum or PlasmaOrdered By: Da Phillip on 03-26-2024 TSH Qn 1.31 m[IU]/L Normal 0.45-5.33 [facility] Comment on above: Result Comment: PERF ORMED BY: [place] [address] PATHOLOGIST SULFUR BURNER JENNIFER HERNANDEZ M.D. Performed By: #### T 3T, T4T, TSH3 #### [address] Thyroxine (T4) [Mass/volume] in Serum or PlasmaOrdered By: Da Phillip on 03-26-2024 T4 [Mass/Vol] 9.37 ug/dL Normal 5.39-11.82 [facility] Comment on above: Performed By: #### T 3T, T4T, TSH3 #### [place] [address] [place] Triiodothyronine (T3) Totalo n 03-26-2024 Triiodothyronine (T3) Total 0.90 ng/mL Normal 0.87-1.78 [facility] Comment on above: Performed By: #### T 3T, T4T, TSH3 #### [place] [address] [place] Triiodothyronine (T3) [Mass/ volume] in Serum or PlasmaOrdered By: Da Phillip on 03-26-2024 T3 [Mass/Vol] 0.90 ng/mL 0.87-1.78 [facility] Kobe 02-14-2024 L Specimen: Received: 02/17/24 Status: ANIRUDH Andrade Num: [id number] Spec Type: Cytology Subm Dr: Aggie Davis CNP Tissues: A FNA SLIDES NOPATH (RT THYROID NOD) B FNA SLIDES NOPATH (ISTHMUS THY) Procedures: Cyto Int and Re/2, PAPSTN/10 Age/ Patient Sex Location Account Attending Physician Virgen Gonzales 68/F LABELL [id number] Aggie Davis CNP SPEC NUM: [id number] RECD: 02/17/24 STATUS: ANIRUDH ANDRADE NUM: [id number] AMY: 02/14/24 DR: Aggie Davis CNP ENTERED: 02/17/[address]: Dina,Lab Becky Avilez MD SPEC TYPE: Cytology DEPT: POP NCYT ENTERED BY: [id number] RECV BY: [id number] ORDERED: Cyto Int and Re/2, PAPSTN/10 ORDERED: Cyto Int and Re/2, PAPSTN/10 Pathological Diagnosis A. Right thyroid,?fine needle aspiration:? Suspicious for follicular neoplasm, Atypical Follicular Cells With Abundant Colloid. [place] Category IV B. Isthmus, fine needle aspiration:? Unsatisfactory for evaluation. Too few epithelial cells. [place]?Category?I Clinical Information Thyroid Nodules Gross Description A. (RIGHT) Received fixed in Cytolyt is <1 ml very pale pink clear fluid for cytology said to have been obtained as right thyroid nodule-mid . ThinPrep preparations are prepared for microscopic examination. Also received are 4 spray fixed smeared slides to be stained pap aa Veracyte vial stored at -20 for microscopic examination.(NH/wy) B. (ISTHMUS) Received fixed in Cytolyt is (1 ml pink clear fluid for cytology said to have ---- Specimen: [id number] Received: 02/17/24 Status: ANIRUDH Andrade Num: [id number] Spec Type: Cytology Subm Dr: Aggie Davis CNP Tissues: A FNA SLIDES NOPATH (RT THYROID NOD) B FNA SLIDES NOPATH (ISTHMUS THY) Procedures: Cyto Int and Re/2, PAPSTN/10 ---- Patient: Virgen Gonzales [id number] (Continued) ---- Specimen: [id number] Received: 02/17/24 (Continued) Gross Description (Continued) Signed (signature on file) Nishant Morley MD 02/19/24 1428 ---- Specimen: [id number] Received: 02/17/24 Status: ANIRUDH Andrade Num: [id number] Spec Type: Cytology Subm Dr: Aggie Davis CNP Tissues: A FNA SLIDES NOPATH (RT THYROID NOD) B FNA SLIDES NOPATH (ISTHMUS THY) Procedures: Cyto Int and Re/2, PAPSTN/10 ---- Patient: Virgen Gonzales [id number] (Continued) ---- Specimen: [id number] Received: 02/17/24-132 (Continued) Gross Description (Continued) been obtained as Isthmus thyroid nodule. ThinPrep preparations are prepared for microscopic examination. Also received are 4 spray fixed smeared smeared slides to be stained pap and a Veracyte vial stored at -20 for microscopic examination.(NH/wy) CPT Codes 94927q4 ---- ---- Specimen: [id number] Received: 02/17/24-1322 Status: ANIRUDH Andrade Num: [id number] Spec Type: Cytology Subm Dr: Aggie Davis CNP Tissues: A FNA SLIDES NOPATH (RT THYROID NOD) B FNA SLIDES NOPATH (ISTHMUS THY) Procedures: Cyto Int and Re/2, PAPSTN/10 ---- Patient: Virgen Gonzales [id number] (Continued) ---- Signed (signature on file) Nishant Morley MD 02/19/24 4124 Normal [facility] Nonvisit Note - PTon 024 Nonvisit Note - PT Pt cancelled reassessment due to being sick. AMK Normal [facility] Nonvisit Note - PTon 024 Nonvisit Note - PT Pt no showed for 171 5 appointment. Normal [facility] Nonvisit Note - PTon 024 Nonvisit Note - PT Pt called to cancel as she is ill. Normal [facility] Consent for Treatmenton 10-28 Consent for Treatment [id number]#1.0 0TIFF Normal [facility] PT - Assessmentson PT - Assessments [id number]#1.0 0TIFF Normal [facility] PT - Consentson 11-19-2023 PT - Consents [id number]#1.0 0TIFF Normal [facility] Insurance Correspondenceon 0 11-12-2023 Insurance Correspondence [id number]#1. 00TIFF Normal [facility] PT - Orderson 11-11-2023 PT - Orders [id number]#1. 00TIFF Normal [facility] L Inj/Asp: L kneeon 08-27-19 24 Sue Henning, ARR T 09/02/2023 8:37 AM L Inj/Asp: L knee on 08/27/2023 3:43 PM Indications: pain Details: 21 G needle, lateral approach Medications: 16 mg hylan 16 MG/2ML Consent was given by the patient. [facility] PROF 14(COMP METB)on 023 Albumin [Mass/Vol] 3.2 g/dL Critically low 3.4-5.0 [facility] Comment on above: Performed By: #### T SH, CMP, T7, LIPID #### [facility] [address] [place] [address] Dr. Danay De Los Santos Albumin/Globulin [Mass ratio] 1.0 {ratio} Normal [facility] Comment on above: Performed By: #### T SH, CMP, T7, LIPID #### [facility] [address] [place] [address] [address] Danay De Los Santos ALP [Catalytic activity/Vol] 92 U/L Normal 46-116 [facility] Comment on above: Performed By: #### T SH, CMP, T7, LIPID #### [facility] [address] [address] [address] Danay De Los Santos ALT [Catalytic activity/Vol] 21 U/L Normal 14-59 [facility] Comment on above: Performed By: #### T SH, CMP, T7, LIPID #### [facility] [address] [place] [address] [address] Danay De Los Santos Anion gap [Moles/Vol] 13.2 mmol/L Normal [facility] Comment on above: Performed By: #### T SH, CMP, T7, LIPID #### [facility] [address] [address] [address] Danay De Lso Santos AST [Catalytic activity/Vol] 14 U/L Critically low 15-37 [facility] Comment on above: Performed By: #### T SH, CMP, T7, LIPID #### [facility] [address] [place] [address] Dr. Danay De Los Santos Bilirubin [Mass/Vol] 0.2 mg/dL Normal 0.2-1.0 [facility] Comment on above: Performed By: #### T SH, CMP, T7, LIPID #### [facility] [address] [place] [address] Dr. Danay De Los Santos Calcium [Mass/Vol] 8.6 mg/dL Normal 8.5-10.1 [facility] Comment on above: Performed By: #### T SH, CMP, T7, LIPID #### [facility] [address] [place] [address] Dr. Danay De Los Santos Chloride [Moles/Vol] 105 mmol/L Normal 98-107 [facility] Comment on above: Performed By: #### T SH, CMP, T7, LIPID #### [facility] [address] [place] [address] Dr. Danay De Los Santos CO2 [Moles/Vol] 27.9 mmol/L Normal 21.0-32.0 [facility] Comment on above: Performed By: #### T SH, CMP, T7, LIPID #### [facility] [address] [place] [address] Dr. Danay De Los Santos Creatinine [Mass/Vol] 1.47 mg/dL Critically high 0.55-1.02 [facility] Comment on above: Performed By: #### T SH, CMP, T7, LIPID #### [facility] [address] [place] [address] Dr. Danay De Los Santos EGFR-AF MALAGASY 43 mL/min/1.73m2 Critically low >=60 [facility] Comment on above: Performed By: #### T SH, CMP, T7, LIPID #### [facility] [address] [place] [address] Dr. Danay De Los Santos EGFR-NON AF MALAGASY 35 mL/min/1.73m2 Critically low >=60 [facility] Comment on above: Performed By: #### T SH, CMP, T7, LIPID #### [facility] [address] [place] [address] Dr. Danay De Los Santos Globulin (S) [Mass/Vol] 3.3 g/dL Normal [facility] Comment on above: Performed By: #### T SH, CMP, T7, LIPID #### [facility] [address] [place] [address] Dr. Danay De Los Santos Glucose [Mass/Vol] 145 mg/dL Critically high 74-106 [facility] Comment on above: Performed By: #### T SH, CMP, T7, LIPID #### [facility] [address] [place] [address] Dr. Danay De Los Santos Potassium [Moles/Vol] 4.1 mmol/L Normal 3.5-5.1 [facility] Comment on above: Performed By: #### T SH, CMP, T7, LIPID #### [facility] [address] [place] [address] Dr. Danay De Los Santos Protein [Mass/Vol] 6.5 g/dL Normal 6.4-8.2 [facility] Comment on above: Performed By: #### T SH, CMP, T7, LIPID #### [facility] [address] [place] [address] Dr. Danay De Los Santos Sodium [Moles/Vol] 142 mmol/L Normal 136-145 [facility] Comment on above: Performed By: #### T SH, CMP, T7, LIPID #### [facility] [address] [place] [address] Dr. Danay De Los Santos Urea nitrogen [Mass/Vol] 22.0 mg/dL Critically high 7.0-18.0 [facility] Comment on above: Performed By: #### T SH, CMP, T7, LIPID #### [facility] [address] [address] [address] Danay De Los Santos Urea nitrogen/Creatinine [Mass ratio] 15.0 mg/mg Normal [facility] Comment on above: Performed By: #### T SH, CMP, T7, LIPID #### [facility] [address] [address] [address] Danay De Los Santos PROF CHEM 8 (BAS METB)on Anion gap [Moles/Vol] 12.1 mmol/L Normal [facility] Comment on above: Performed By: #### B MP #### [facility] [address] [place] [address] Dr. Danay De Los Santos Calcium [Mass/Vol] 8.8 mg/dL Normal 8.5-10.1 [facility] Comment on above: Performed By: #### B MP #### [facility] [address] [address] [address] Danay De Los Santos Chloride [Moles/Vol] 103 mmol/L Normal 98-107 [facility] Comment on above: Performed By: #### B MP #### [facility] [address] [place] [address] Dr. Danay De Los Santos CO2 [Moles/Vol] 28.6 mmol/L Normal 21.0-32.0 [facility] Comment on above: Performed By: #### B MP #### [facility] [address] [place] [address] Dr. Danay De Los Santos Creatinine [Mass/Vol] 2.08 mg/dL Critically high 0.55-1.02 [facility] Comment on above: Performed By: #### B MP #### [facility] [address] [place] [address] Dr. Danay De Los Santos EGFR-AF MALAGASY 29 mL/min/1.73m2 Critically low >=60 [facility] Comment on above: Performed By: #### B MP #### [facility] [address] [address] [address] Danay De Los Santos EGFR-NON AF MALAGASY 24 mL/min/1.73m2 Critically low >=60 [facility] Comment on above: Performed By: #### B MP #### [facility] [address] [address] [address] Danay De Los Santos Glucose [Mass/Vol] 259 mg/dL Critically high 74-106 [facility] Comment on above: Performed By: #### B MP #### [facility] [address] [address] [address] Danay De Los Santos Potassium [Moles/Vol] 4.7 mmol/L Normal 3.5-5.1 [facility] Comment on above: Performed By: #### B MP #### [facility] [address] [address] [address] Danay De Los Santos Sodium [Moles/Vol] 139 mmol/L Normal 136-145 [facility] Comment on above: Performed By: #### B MP #### [facility] [address] [address] [address] Danay De Los Santos Urea nitrogen [Mass/Vol] 27.0 mg/dL Critically high 7.0-18.0 [facility] Comment on above: Performed By: #### B MP #### [facility] [address] [address] [address] Danay De Los Santos Urea nitrogen/Creatinine [Mass ratio] 13.0 mg/mg Normal [facility] Comment on above: Performed By: #### B MP #### [facility] [address] [address] [address] Danay De Los Santos INSULINon 12-17-2022 Insulin 11.1 uIU/mL Normal 2.6-24.9 [facility] Comment on above: Performed By: #### I NSULIN #### [facility] [address] [place] [address] Dr. Danay De Los Santos BNPon 12-15-2022 Natriuretic peptide B (Bld) [Mass/Vol] 110.0 pg/mL Normal <=900.0 [facility] Comment on above: Performed By: #### T SH, CMP, T7, LIPID #### [facility] [address] [place] [address] Dr. Danay De Los Santos CBC AUTO DIFFon 12-15-2022 BASO # 0.1 103/ul Normal 0.0-0.1 [facility] Comment on above: Performed By: #### T SH, CMP, T7, LIPID #### [facility] [address] [place] [address] Dr. Danay De Los Santos Basophils/100 WBC (Bld) 0.5 % Normal 0.2-2.0 [facility] Comment on above: Performed By: #### T SH, CMP, T7, LIPID #### [facility] [address] [place] [address] Dr. Danay De Los Santos EO # 0.7 103/ul Normal 0.0-0.7 [facility] Comment on above: Performed By: #### T SH, CMP, T7, LIPID #### [facility] [address] [place] [address] Dr. Danay De Los Santos Eosinophils/100 WBC (Bld) 6.0 % Normal 0.9-7.0 [facility] Comment on above: Performed By: #### T SH, CMP, T7, LIPID #### [facility] [address] [place] [address] Dr. Danay De Los Santos Erythrocyte distribution width (RBC) [Ratio] 15.6 % Critically high 11.0-15.0 [facility] Comment on above: Performed By: #### T SH, CMP, T7, LIPID #### [facility] [address] [place] [address] Dr. Danay De Los Santos Hematocrit (Bld) [Volume fraction] 40.2 % Normal 36.0-48.0 [facility] Comment on above: Performed By: #### T SH, CMP, T7, LIPID #### [facility] [address] [place] [address] Dr. Danay De Los Santos Hemoglobin (Bld) [Mass/Vol] 12.6 g/dL Normal 12.0-16.0 [facility] Comment on above: Performed By: #### T SH, CMP, T7, LIPID #### [facility] [address] [address] [address] Danay De Los Santos IG # 0.06 10e3/ul Critically high 0.00-0.03 [facility] Comment on above: Performed By: #### T SH, CMP, T7, LIPID #### [facility] [address] [address] [address] Danay De Los Santos IG % 0.5 % Normal 0.0-0.5 [facility] Comment on above: Performed By: #### T SH, CMP, T7, LIPID #### [facility] [address] [place] [address] Dr. Danay De Los Santos LYMPH # 3.2 103/ul Normal 1.2-3.8 [facility] Comment on above: Performed By: #### T SH, CMP, T7, LIPID #### [facility] [address] [place] [address] Dr. Danay De Los Santos Lymphocytes/100 WBC (Bld) 28.9 % Normal 20.5-60.0 [facility] Comment on above: Performed By: #### T SH, CMP, T7, LIPID #### [facility] [address] [address] [address] Danay De Los Santos MANUAL DIFF REQ NO Normal [facility] Comment on above: Performed By: #### T SH, CMP, T7, LIPID #### [facility] [address] [address] [address] Danay De Los Santos MCH (RBC) [Entitic mass] 27.3 pg Normal 26.7-34.0 [facility] Comment on above: Performed By: #### T SH, CMP, T7, LIPID #### [facility] [address] [address] [address] Danay De Los Santos MCHC (RBC) [Mass/Vol] 31.3 g/dL Normal 29.9-35.2 [facility] Comment on above: Performed By: #### T SH, CMP, T7, LIPID #### [facility] [address] [address] [address] Danay De Los Santos MCV (RBC) [Entitic vol] 87.2 fL Normal 81.0-99.0 [facility] Comment on above: Performed By: #### T SH, CMP, T7, LIPID #### [facility] [address] [place] [address] Dr. Danay De Los Santos MONO # 0.6 103/ul Normal 0.3-0.8 [facility] Comment on above: Performed By: #### T SH, CMP, T7, LIPID #### [facility] [address] [place] [address] Dr. Danay De Los Santos Monocytes/100 WBC (Bld) 5.7 % Normal 1.7-12.0 [facility] Comment on above: Performed By: #### T SH, CMP, T7, LIPID #### [facility] [address] [place] [address] Dr. Danay De Los Santos NEUT # 6.4 103/ul Normal 1.4-6.5 [facility] Comment on above: Performed By: #### T SH, CMP, T7, LIPID #### [facility] [address] [place] [address] Dr. Danay De Los Santos Neutrophils/100 WBC (Bld) 58.4 % Normal 43.0-75.0 [facility] Comment on above: Performed By: #### T SH, CMP, T7, LIPID #### [facility] [address] [place] [address] Dr. Danay De Los Santos Platelet mean volume (Bld) [Entitic vol] 10.6 fL Normal 9.5-13.5 [facility] Comment on above: Performed By: #### T SH, CMP, T7, LIPID #### [facility] [address] [place] [address] Dr. Danay De Los Santos PLT 251 103/ul Normal 150-450 [facility] Comment on above: Performed By: #### T SH, CMP, T7, LIPID #### [facility] [address] [place] [address] Dr. Danay De Los Santos RBC 4.61 106/ul Normal 4.20-5.40 [facility] Comment on above: Performed By: #### T SH, CMP, T7, LIPID #### [facility] [address] [address] [address] Danay De Los Santos WBC 10.9 103/ul Normal 4.0-11.0 [facility] Comment on above: Performed By: #### T SH, CMP, T7, LIPID #### [facility] [address] [address] [address] Danay De Los Santos FREE THYROXINE INDEX T7on FTI 2.87 Normal 1.30-4.50 [facility] Comment on above: Performed By: #### T SH, CMP, T7, LIPID #### [facility] [address] [place] [address] Dr. Danay De Los Santos T3U 35.0 % Normal 30.0-39.0 [facility] Comment on above: Performed By: #### T SH, CMP, T7, LIPID #### [facility] [address] [place] [address] Dr. Danay De Los Santos T4 [Mass/Vol] 8.20 ug/dL Normal 4.80-13.90 [facility] Comment on above: Performed By: #### T SH, CMP, T7, LIPID #### [facility] [address] [place] [address] Dr. Danay De Los Santos GLYCOHEMOGLOBIN A1Con 2022 ADA RECOMMENDATION SEE BELOW Normal [facility] Comment on above: Result Comment: ADA RECOMMENDED LIMIT 4.0 - 6.0 ADA THERAPEUTIC TARGET < 7.0 ACTION SUGGESTED > 7.0 Performed By: #### A 1C #### [facility] [address] [place] [address] Dr. Danay De Los Santos Glucose [Mass/Vol] 203 mg/dL Normal [facility] Comment on above: Performed By: #### A 1C #### [facility] [address] [place] [address] Dr. Danay De Los Santos HbA1c (Bld) [Mass fraction] 8.7 % Critically high 4.5-6.2 [facility] Comment on above: Performed By: #### A 1C #### [facility] [address] [place] [address] Dr. Danay De Los Santos IRONon 12-15-2022 Iron [Mass/Vol] 39.0 ug/dL Critically low 50.0-170.0 [facility] Comment on above: Performed By: #### T SH, CMP, T7, LIPID #### [facility] [address] [address] [address] Danay De Los Santos LIPID PROFILEon 12-15-2022 CHOL-HDL RATIO NORM SEE BELOW Normal [facility] Comment on above: Result Comment: 3.3 - 4.4 LOW RISK 4.4 - 7.1 AVERAGE RISK 7.1 - 11.0 MODERATE RISK >11.0 HIGH RISK Performed By: #### T SH, CMP, T7, LIPID #### [facility] [address] [place] [address] Dr. Danay De Los Santos Cholesterol [Mass/Vol] 123 mg/dL Normal <=200 [facility] Comment on above: Performed By: #### T SH, CMP, T7, LIPID #### [facility] [address] [address] [address] Danay De Los Santos Cholesterol in HDL [Mass/Vol] 40 mg/dL Normal 40-60 [facility] Comment on above: Performed By: #### T SH, CMP, T7, LIPID #### [facility] [address] [address] [address] Danay De Los Santos Cholesterol in LDL [Mass/Vol] 70.4 mg/dL Normal [facility] Comment on above: Performed By: #### T SH, CMP, T7, LIPID #### [facility] [address] [address] [address] Danay De Los Santos Cholesterol.total/Cho lesterol in HDL [Mass ratio] 3.1 {ratio} Normal [facility] Comment on above: Performed By: #### T SH, CMP, T7, LIPID #### [facility] [address] [place] [address] Dr. Danay De Los Santos HDL NORMAL > or = 60 mg/dl - LO W CARDIOVASCULAR RISK <40 mg/dl - HIGH CARDIOVASCULAR RISK Normal [facility] Comment on above: Performed By: #### T SH, CMP, T7, LIPID #### [facility] [address] [address] [address] Danay De Los Santos LDL CALC NORMAL SEE BELOW Normal [facility] Comment on above: Result Comment: <100 mg/dl OPTIMAL 100 - 129 mg/dl NEAR OR ABOVE OPTIMAL 130 - 159 mg/dl BORDERLINE HIGH 160 - 189 mg/dl HIGH >190 mg/dl VERY HIGH Performed By: #### T SH, CMP, T7, LIPID #### [facility] [address] [address] [address] Danay De Los Santos Triglyceride [Mass/Vol] 63 mg/dL Normal <=150 [facility] Comment on above: Performed By: #### T SH, CMP, T7, LIPID #### [facility] [address] [place] [address] Dr. Danay De Los Santos VLDL CALC 12.6 mg/dL Normal [facility] Comment on above: Performed By: #### T SH, CMP, T7, LIPID #### [facility] [address] [place] [address] Dr. Danay De Los Santos PROF 14(COMP METB)on 023 Albumin [Mass/Vol] 3.3 g/dL Critically low 3.4-5.0 [facility] Comment on above: Performed By: #### T SH, CMP, T7, LIPID #### [facility] [address] [place] [address] Dr. Danay De Los Santos Albumin/Globulin [Mass ratio] 1.0 {ratio} Normal [facility] Comment on above: Performed By: #### T SH, CMP, T7, LIPID #### [facility] [address] [place] [address] Dr. Danay De Los Santos ALP [Catalytic activity/Vol] 94 U/L Normal 46-116 [facility] Comment on above: Performed By: #### T SH, CMP, T7, LIPID #### [facility] [address] [place] [address] Dr. Danay De Los Santos ALT [Catalytic activity/Vol] 17 U/L Normal 14-59 [facility] Comment on above: Performed By: #### T SH, CMP, T7, LIPID #### [facility] [address] [address] [address] Danay De Los Santos Anion gap [Moles/Vol] 14.3 mmol/L Normal [facility] Comment on above: Performed By: #### T SH, CMP, T7, LIPID #### [facility] [address] [address] [address] Danay De Los Santos AST [Catalytic activity/Vol] 11 U/L Critically low 15-37 [facility] Comment on above: Performed By: #### T SH, CMP, T7, LIPID #### [facility] [address] [address] [address] Danay De Los Santos Bilirubin [Mass/Vol] 0.3 mg/dL Normal 0.2-1.0 [facility] Comment on above: Performed By: #### T SH, CMP, T7, LIPID #### [facility] [address] [address] [address] Danay De Los Santos Calcium [Mass/Vol] 9.1 mg/dL Normal 8.5-10.1 [facility] Comment on above: Performed By: #### T SH, CMP, T7, LIPID #### [facility] [address] [address] [address] Danay De Los Santos Chloride [Moles/Vol] 105 mmol/L Normal 98-107 [facility] Comment on above: Performed By: #### T SH, CMP, T7, LIPID #### [facility] [address] [address] [address] Danay De Los Santos CO2 [Moles/Vol] 29.3 mmol/L Normal 21.0-32.0 [facility] Comment on above: Performed By: #### T SH, CMP, T7, LIPID #### [facility] [address] [address] [address] Danay De Los Santos Creatinine [Mass/Vol] 1.53 mg/dL Critically high 0.55-1.02 [facility] Comment on above: Performed By: #### T SH, CMP, T7, LIPID #### [facility] [address] [address] [address] Danay De Los Santos EGFR-AF MALAGASY 41 mL/min/1.73m2 Critically low >=60 [facility] Comment on above: Performed By: #### T SH, CMP, T7, LIPID #### [facility] [address] [place] [address] Dr. Danay De Los Santos EGFR-NON AF MALAGASY 34 mL/min/1.73m2 Critically low >=60 [facility] Comment on above: Performed By: #### T SH, CMP, T7, LIPID #### [facility] [address] [place] [address] Dr. Danay De Los Santos Globulin (S) [Mass/Vol] 3.4 g/dL Normal [facility] Comment on above: Performed By: #### T SH, CMP, T7, LIPID #### [facility] [address] [place] [address] Dr. Danay De Los Santos Glucose [Mass/Vol] 192 mg/dL Critically high 74-106 [facility] Comment on above: Performed By: #### T SH, CMP, T7, LIPID #### [facility] [address] [place] [address] Dr. Danay De Los Santos Potassium [Moles/Vol] 4.6 mmol/L Normal 3.5-5.1 [facility] Comment on above: Performed By: #### T SH, CMP, T7, LIPID #### [facility] [address] [place] [address] Dr. Danay De Los Santos Protein [Mass/Vol] 6.7 g/dL Normal 6.4-8.2 [facility] Comment on above: Performed By: #### T SH, CMP, T7, LIPID #### [facility] [address] [place] [address] Dr. Danay De Los Santos Sodium [Moles/Vol] 144 mmol/L Normal 136-145 [facility] Comment on above: Performed By: #### T SH, CMP, T7, LIPID #### [facility] [address] [place] [address] Dr. Danay De Los Santos Urea nitrogen [Mass/Vol] 25.0 mg/dL Critically high 7.0-18.0 [facility] Comment on above: Performed By: #### T SH, CMP, T7, LIPID #### [facility] [address] [address] [address] Danay De Los Santos Urea nitrogen/Creatinine [Mass ratio] 16.3 mg/mg Normal [facility] Comment on above: Performed By: #### T SH, CMP, T7, LIPID #### [facility] [address] [address] [address] Danay De Los Santos TSHon 12-15-2022 TSH 2.181 uIU/mL Normal 0.358-3.740 [facility] Comment on above: Performed By: #### T SH, CMP, T7, LIPID #### [facility] [address] [address] [address] Danay De Los Santos VITAMIN D 25 OHon 12-15-2022 VIT D 25-OH 32.9 ng/mL Normal [facility] Comment on above: Performed By: #### T SH, CMP, T7, LIPID #### [facility] [address] [address] [address] Danay De Los Santos VIT D RANGES SEE BELOW Normal [facility] Comment on above: Result Comment: <20 ng/mL Vit D deficient 20 - <30 ng/mL Vit D insufficient 30 - 100 ng/mL Vit D sufficient >100 ng/mL Potential Toxicity Performed By: #### T SH, CMP, T7, LIPID #### [facility] [address] [address] [address] Danay De Los Santos US ROEL [...] MORIAH MORRISON Date: 2022-12-01 12:54 Normal [facility] XR Hand Complete Left*on XR Hand Complete Left* CLINICAL HISTORY: Fall with left hand stiffness. COMPARISON: None. RESULT: No distinct acute fracture. No dislocation. Underlying decreased bone mineral density. Mild to moderate scattered degenerative changes. Soft tissue edema. IMPRESSION: No acute osseous findings radiographically. Report reported and signed by Home Lockwood on 08/24/2022 1108 Normal [facility] [employer] XR Spine Cervical Complete*o n 08-24-2022 XR [...] by Home Lockwood on 08/24/2022 1109 Normal [facility] XR HAND RIMA MIN 3Von 023 XR HAND RIMA MIN 3V EXAM: XR HAND RIMA KS N 3V HISTORY: Pain following fall COMPARISON: None. TECHNIQUE: 3 views of each hand FINDINGS: No visualized fracture, dislocation, subluxation or osseous lesion. Age-related joint space changes. No gross visualized soft tissue edema. IMPRESSION: No visualized abnormality Electronically authenticated by: BRIANNA KU Date: 2022-08-06 20:28 Normal [facility] XR HIP RT 2 3V W [...] by: BRIANNA KU Date: 2022-08-06 20:29 Normal [facility] XR SHOULDER RT 2V or >on [...] BRIANNA KU Date: 2022-08-06 20:21 Normal [facility] XR Foot Complete Left*on XR Foot Complete Left* COMPARISON: None available HISTORY: Second and third digit pain after a fall TECHNIQUE: AP, lateral and oblique views of the foot obtained. FINDINGS: No acute fracture or dislocation. Joint spaces are preserved. Soft tissues are within normal limits. IMPRESSION: No acute osseous abnormality. Report reported and signed by Drew Looney on 08/04/2022 1044 Normal [facility] XR Knee Complete Left*on XR Knee Complete [...] by Drew Looney on 08/04/2022 1046 Normal [facility] MRI BRAIN WO CONon 2 MRI BRAIN WO CON EXAMINATION: MRI BRA IN WO [facility], 07/02/2022 1:55 PM EST HISTORY: [...] BRIANNA GREEN Date: 2022-07-02 14:48 Normal [facility] INSULINon 05-28-2022 Insulin 13.4 uIU/mL Normal 2.6-24.9 [facility] Comment on above: Performed By: #### I NSULIN #### [facility] [address] [place] [address] Dr. Danay De Los Santos CBC AUTO DIFFon 05-26-2022 BASO # 0.1 103/ul Normal 0.0-0.1 [facility] Comment on above: Performed By: #### C BC #### [facility] [address] [place] [address] Dr. Danay De Los Santos Basophils/100 WBC (Bld) 0.8 % Normal 0.2-2.0 [facility] Comment on above: Performed By: #### C BC #### [facility] [address] [place] [address] Dr. Danay De Los Santos EO # 0.6 103/ul Normal 0.0-0.7 [facility] Comment on above: Performed By: #### C BC #### [facility] [address] [place] [address] Dr. Danay De Los Santos Eosinophils/100 WBC (Bld) 5.1 % Normal 0.9-7.0 [facility] Comment on above: Performed By: #### C BC #### [facility] [address] [place] [address] Dr. Danay De Los Santos Erythrocyte distribution width (RBC) [Ratio] 14.7 % Normal 11.0-15.0 [facility] Comment on above: Performed By: #### C BC #### [facility] [address] [place] [address] Dr. Danay De Los Santos Hematocrit (Bld) [Volume fraction] 37.8 % Normal 36.0-48.0 [facility] Comment on above: Performed By: #### C BC #### [facility] [address] [place] [address] Dr. Danay De Los Santos Hemoglobin (Bld) [Mass/Vol] 12.3 g/dL Normal 12.0-16.0 [facility] Comment on above: Performed By: #### C BC #### [facility] [address] [place] [address] Dr. Danay De Los Santos IG # 0.05 10e3/ul Critically high 0.00-0.03 [facility] Comment on above: Performed By: #### C BC #### [facility] [address] [place] [address] Dr. Danay De Los Santos IG % 0.5 % Normal 0.0-0.5 [facility] Comment on above: Performed By: #### C BC #### [facility] [address] [place] [address] Dr. Danay De Los Santos LYMPH # 2.1 103/ul Normal 1.2-3.8 [facility] Comment on above: Performed By: #### C BC #### [facility] [address] [place] [address] Dr. Danay De Los Santos Lymphocytes/100 WBC (Bld) 19.1 % Critically low 20.5-60.0 [facility] Comment on above: Performed By: #### C BC #### [facility] [address] [place] [address] Dr. Danay De Los Santos MANUAL DIFF REQ NO Normal [facility] Comment on above: Performed By: #### C BC #### [facility] [address] [place] [address] Dr. Danay De Los Santos MCH (RBC) [Entitic mass] 30.8 pg Normal 26.7-34.0 [facility] Comment on above: Performed By: #### C BC #### [facility] [address] [place] [address] Dr. Danay De Los Santos MCHC (RBC) [Mass/Vol] 32.5 g/dL Normal 29.9-35.2 [facility] Comment on above: Performed By: #### C BC #### [facility] [address] [place] [address] Dr. Danay De Los Santos MCV (RBC) [Entitic vol] 94.5 fL Normal 81.0-99.0 [facility] Comment on above: Performed By: #### C BC #### [facility] [address] [place] [address] Dr. Danay De Los Santos MONO # 0.6 103/ul Normal 0.3-0.8 [facility] Comment on above: Performed By: #### C BC #### [facility] [address] [place] [address] Dr. Danay De Los Santos Monocytes/100 WBC (Bld) 5.1 % Normal 1.7-12.0 [facility] Comment on above: Performed By: #### C BC #### [facility] [address] [place] [address] Dr. Danay De Los Santos NEUT # 7.5 103/ul Critically high 1.4-6.5 [facility] Comment on above: Performed By: #### C BC #### [facility] [address] [place] [address] Dr. Danay De Los Santos Neutrophils/100 WBC (Bld) 69.4 % Normal 43.0-75.0 [facility] Comment on above: Performed By: #### C BC #### [facility] [address] [place] [address] Dr. Danay De Los Santos Platelet mean volume (Bld) [Entitic vol] 10.9 fL Normal 9.5-13.5 [facility] Comment on above: Performed By: #### C BC #### [facility] [address] [place] [address] Dr. Danay De Los Santos PLT 235 103/ul Normal 150-450 [facility] Comment on above: Performed By: #### C BC #### [facility] [address] [place] [address] Dr. Danay De Los Santos RBC 4.00 106/ul Critically low 4.20-5.40 [facility] Comment on above: Performed By: #### C BC #### [facility] [address] [place] [address] Dr. Danay De Los Santos WBC 10.8 103/ul Normal 4.0-11.0 [facility] Comment on above: Performed By: #### C BC #### [facility] [address] [place] [address] Dr. Danay De Los Santos FREE THYROXINE INDEX T7on FTI 1.83 Normal 1.30-4.50 [facility] Comment on above: Performed By: #### T SH, CMP, T7, LIPID #### [facility] [address] [address] [address] Danay De Los Santos T3U 31.0 % Normal 30.0-39.0 [facility] Comment on above: Performed By: #### T SH, CMP, T7, LIPID #### [facility] [address] [address] [address] Danay De Los Santos T4 [Mass/Vol] 5.90 ug/dL Normal 4.80-13.90 [facility] Comment on above: Performed By: #### T SH, CMP, T7, LIPID #### [facility] [address] [address] [address] Danay De Los Santos GLYCOHEMOGLOBIN A1Con 2021 ADA RECOMMENDATION SEE BELOW Normal [facility] Comment on above: Result Comment: ADA RECOMMENDED LIMIT 4.0 - 6.0 ADA THERAPEUTIC TARGET < 7.0 ACTION SUGGESTED > 7.0 Performed By: #### A 1C #### [facility] [address] [address] [address] Danay De Los Santos Glucose [Mass/Vol] 186 mg/dL Normal [facility] Comment on above: Performed By: #### A 1C #### [facility] [address] [address] [address] Danay De Los Santos HbA1c (Bld) [Mass fraction] 8.1 % Critically high 4.5-6.2 [facility] Comment on above: Performed By: #### A 1C #### [facility] [address] [address] [address] Danay De Los Santos IRONon 05-26-2022 Iron [Mass/Vol] 61.0 ug/dL Normal 50.0-170.0 [facility] Comment on above: Performed By: #### T SH, CMP, T7, LIPID #### [facility] [address] [address] [address] Danay De Los Santos LIPID PROFILEon 05-26-2022 CHOL-HDL RATIO NORM SEE BELOW Normal [facility] Comment on above: Result Comment: 3.3 - 4.4 LOW RISK 4.4 - 7.1 AVERAGE RISK 7.1 - 11.0 MODERATE RISK >11.0 HIGH RISK Performed By: #### T SH, CMP, T7, LIPID #### [facility] [address] [address] [address] Danay De Los Santos Cholesterol [Mass/Vol] 130 mg/dL Normal <=200 [facility] Comment on above: Performed By: #### T SH, CMP, T7, LIPID #### [facility] [address] [address] [address] Danay De Los Santos Cholesterol in HDL [Mass/Vol] 40 mg/dL Normal 40-60 [facility] Comment on above: Performed By: #### T SH, CMP, T7, LIPID #### [facility] [address] [address] [address] Danay De Los Santos Cholesterol in LDL [Mass/Vol] 75.8 mg/dL Normal [facility] Comment on above: Performed By: #### T SH, CMP, T7, LIPID #### [facility] [address] [address] [address] Danay De Los Santos Cholesterol.total/Cho lesterol in HDL [Mass ratio] 3.3 {ratio} Normal [facility] Comment on above: Performed By: #### T SH, CMP, T7, LIPID #### [facility] [address] [address] [address] Danay De Los Santos HDL NORMAL > or = 60 mg/dl - LO W CARDIOVASCULAR RISK <40 mg/dl - HIGH CARDIOVASCULAR RISK Normal [facility] Comment on above: Performed By: #### T SH, CMP, T7, LIPID #### [facility] [address] [address] [address] Danay De Los Santos LDL CALC NORMAL SEE BELOW Normal [facility] Comment on above: Result Comment: <100 mg/dl OPTIMAL 100 - 129 mg/dl NEAR OR ABOVE OPTIMAL 130 - 159 mg/dl BORDERLINE HIGH 160 - 189 mg/dl HIGH >190 mg/dl VERY HIGH Performed By: #### T SH, CMP, T7, LIPID #### [facility] [address] [address] [address] Danay De Los Santos Triglyceride [Mass/Vol] 71 mg/dL Normal <=150 [facility] Comment on above: Performed By: #### T SH, CMP, T7, LIPID #### [facility] [address] [address] [address] Danay De Los Santos VLDL CALC 14.2 mg/dL Normal [facility] Comment on above: Performed By: #### T SH, CMP, T7, LIPID #### [facility] [address] [address] [address] Danay De Los Santos PROF 14(COMP METB)on 022 Albumin [Mass/Vol] 3.4 g/dL Normal 3.4-5.0 [facility] Comment on above: Performed By: #### T SH, CMP, T7, LIPID #### [facility] [address] [place] [address] Dr. Danay De Los Santos Albumin/Globulin [Mass ratio] 1.0 {ratio} Normal [facility] Comment on above: Performed By: #### T SH, CMP, T7, LIPID #### [facility] [address] [address] [address] Danay De Los Santos ALP [Catalytic activity/Vol] 92 U/L Normal 46-116 [facility] Comment on above: Performed By: #### T SH, CMP, T7, LIPID #### [facility] [address] [address] [address] Danay De Los Santos ALT [Catalytic activity/Vol] 15 U/L Normal 14-59 [facility] Comment on above: Performed By: #### T SH, CMP, T7, LIPID #### [facility] [address] [address] [address] Danay De Los Santos Anion gap [Moles/Vol] 10.4 mmol/L Normal [facility] Comment on above: Performed By: #### T SH, CMP, T7, LIPID #### [facility] [address] [address] [address] Danay De Los Santos AST [Catalytic activity/Vol] 12 U/L Critically low 15-37 [facility] Comment on above: Performed By: #### T SH, CMP, T7, LIPID #### [facility] [facility] [address] [place] [address] Dr. Danay De Los Santos Bilirubin [Mass/Vol] 0.4 mg/dL Normal 0.2-1.0 [facility] Comment on above: Performed By: #### T SH, CMP, T7, LIPID #### [facility] [address] [place] [address] Dr. Danay De Los Santos Calcium [Mass/Vol] 8.7 mg/dL Normal 8.5-10.1 [facility] Comment on above: Performed By: #### T SH, CMP, T7, LIPID #### [facility] [address] [place] [address] Dr. Danay De Los Santos Chloride [Moles/Vol] 107 mmol/L Normal 98-107 [facility] Comment on above: Performed By: #### T SH, CMP, T7, LIPID #### [facility] [address] [place] [address] Dr. Danay De Los Santos CO2 [Moles/Vol] 28.9 mmol/L Normal 21.0-32.0 [facility] Comment on above: Performed By: #### T SH, CMP, T7, LIPID #### [facility] [address] [place] [address] Dr. Danay De Los Santos Creatinine [Mass/Vol] 1.18 mg/dL Critically high 0.55-1.02 [facility] Comment on above: Performed By: #### T SH, CMP, T7, LIPID #### [facility] [address] [place] [address] Dr. Danay De Los Santos EGFR-AF MALAGASY 55 mL/min/1.73m2 Critically low >=60 [facility] Comment on above: Performed By: #### T SH, CMP, T7, LIPID #### [facility] [address] [place] [address] Dr. Danay De Los Santos EGFR-NON AF MALAGASY 46 mL/min/1.73m2 Critically low >=60 [facility] Comment on above: Performed By: #### T SH, CMP, T7, LIPID #### [facility] [address] [address] [address] Danay De Los Santos Globulin (S) [Mass/Vol] 3.3 g/dL Normal [facility] Comment on above: Performed By: #### T SH, CMP, T7, LIPID #### [facility] [address] [address] [address] Danay De Los Santos Glucose [Mass/Vol] 153 mg/dL Critically high 74-106 [facility] Comment on above: Performed By: #### T SH, CMP, T7, LIPID #### [facility] [address] [address] [address] Danay De Los Santos Potassium [Moles/Vol] 4.3 mmol/L Normal 3.5-5.1 [facility] Comment on above: Performed By: #### T SH, CMP, T7, LIPID #### [facility] [address] [place] [address] Dr. Danay De Los Santos Protein [Mass/Vol] 6.7 g/dL Normal 6.4-8.2 [facility] Comment on above: Performed By: #### T SH, CMP, T7, LIPID #### [facility] [address] [address] [address] Danay De Los Santos Sodium [Moles/Vol] 142 mmol/L Normal 136-145 [facility] Comment on above: Performed By: #### T SH, CMP, T7, LIPID #### [facility] [address] [address] [address] Danay De Los Santos Urea nitrogen [Mass/Vol] 16.0 mg/dL Normal 7.0-18.0 [facility] Comment on above: Performed By: #### T SH, CMP, T7, LIPID #### [facility] [address] [address] [address] Danay De Los Santos Urea nitrogen/Creatinine [Mass ratio] 13.6 mg/mg Normal [facility] Comment on above: Performed By: #### T SH, CMP, T7, LIPID #### [facility] [address] [address] [address] Danay De Los Santos TSHon 10-29-2022 TSH 1.443 uIU/mL Normal 0.358-3.740 [facility] Comment on above: Performed By: #### T SH, CMP, T7, LIPID #### [facility] [address] [place], [place] [address] Dr. Danay De Los Santos XR DEXA [...] by: BECKY AVILEZ Date: 2022-04-05 12:11 Normal [facility] GLYCOHEMOGLOBIN A1Con 2021 ADA RECOMMENDATION SEE BELOW Normal [facility] Comment on above: Result Comment: ADA RECOMMENDED LIMIT 4.0 - 6.0 ADA THERAPEUTIC TARGET < 7.0 ACTION SUGGESTED > 7.0 Performed By: #### T SADAF, CMP, T7, LIPID #### [facility] [address] [address] [address] Danay De Los Santos Glucose [Mass/Vol] 174 mg/dL Normal [facility] Comment on above: Performed By: #### T SH, CMP, T7, LIPID #### [facility] [address] [address] [address] Danay De Los Santos HbA1c (Bld) [Mass fraction] 7.7 % Critically high 4.5-6.2 [facility] Comment on above: Performed By: #### T SH, CMP, T7, LIPID #### [facility] [address] [address] [address] Danay De Los Santos MG MAMM SCREEN 3D RIMA CADon 02-14-2022 MG MAMM SCREEN 3D RIMA CAD Patient: VIRGEN GONZALES Exam Date: 02/14/2022 : 1955 Gender:F Ordering : AGGIE DAVIS [facility] Admission #: [id number] Family : Order #: [id number] CLICK HERE TO VIEW EXAM RADIOLOGY REPORT PROCEDURE: MAMMOGRAM SCREENING 3D BILATERAL CAD COMPARISON: MG MAMM SCREEN 3D RIMA CAD, 02/09/2021. MG MAMM SCREEN RIMA W CAD, 02/09/2020. INDICATIONS: Screening mammography Calculator Name [facility] Breast Cancer Risk Assessment Tool 5 Year Breast Cancer Risk 0.80% Lifetime Breast Cancer Risk 2.90% Personal Breast Cancer No Personal Ovarian Cancer No Treatments None Family Cancers Aunt-paternal with leukemia cancer at age 65; Aunt-paternal with unknown x 6 aunts cancer at age 40; Grandmother-maternal with unknown cancer at age 25. LOCATION: [facility] BREAST COMPOSITION: Heterogeneously dense,which may [...] M.D. on 02/14/2022 at 16:12 Normal [facility] CARDIAC STRESS/REST INJE CTIONon 01-27-2020 [facility] CARDIAC STRESS/REST INJECTION Patient Name: VIRGEN GONZALES STUDY: MYOCARDIAL PERFUSION STRESS TEST WITH LEXISCAN Performing facility: [facility], [address] [place] [place] [address], [address], [place] [address] [facility] Provider: Catarino Koroma MD, FACC PCP: Dr. Nicola Granger Supervising provider: Catarino Koroma MD, FACC INDICATION: Abnormal EKG; Pre-operative risk assessment for Knee surgery scheduled at unknown on unknown. RBBB HISTORY: Gender: F; Age: 64 y/o ; Height: 152.4 cm; Weight: 77.1794126 kg. High Cholesterol; Abnormal EKG; Diabetes; Family HX CAD; HTN; Smoking COMPARISON: No comparison. ACCESSION NUMBER(S): [id number]; [id number]; [id number] ORDERING CLINICIAN: CATARINO KOROMA TECHNIQUE: ONE DAY [...] Electronically signed by: CATARINO KOROMA MD Normal [place] Vital Signs Date Time Vital Sign Value Performing Clinician Facility 07-07-2024 21:52-0500 Body temperature 97.88 [degF] Tiny Fallon [facility] 07-07-2024 21:52-0500 Diastolic blood pressure 76 mm[Hg] Kaylinn Dokken [facility] 07-07-2024 21:52-0500 Heart rate 72 /min Kaylinn Dokken [facility] 07-07-2024 21:52-0500 Mean blood pressure 86 mm[Hg] Kaylinn Dokken [facility] 07-07-2024 21:52-0500 Respiratory rate 19 /min Kaylinn Dokken [facility] 07-07-2024 21:52-0500 SaO2% (BldA) [Mass fraction] 95 % Kaylinn Dokken [facility] 07-07-2024 21:52-0500 Systolic blood pressure 105 mm[Hg] Kaylinn Dokken [facility] 07-07-2024 20:57-0500 Diastolic blood pressure 77 mm[Hg] Kaylinn Dokken [facility] 07-07-2024 20:57-0500 Heart rate 61 /min Kaylinn Dokken [facility] 07-07-2024 20:57-0500 Mean blood pressure 102 mm[Hg] Kaylinn Dokken [facility] 07-07-2024 20:57-0500 Respiratory rate 18 /min Kaylinn Dokken [facility] 07-07-2024 20:57-0500 SaO2% (BldA) [Mass fraction] 96 % Kaylinn Dokken [facility] 07-07-2024 20:57-0500 Systolic blood pressure 153 mm[Hg] Kaylinn Dokken [facility] 07-07-2024 19:33-0500 Diastolic blood pressure 89 mm[Hg] Kaylinn Dokken [facility] 07-07-2024 19:33-0500 Heart rate 60 /min Kaylinn Dokken [facility] 07-07-2024 19:33-0500 Mean blood pressure 108 mm[Hg] Kaylinn Dokken [facility] 07-07-2024 19:33-0500 Respiratory rate 19 /min Kaylinn Dokken [facility] 07-07-2024 19:33-0500 SaO2% (BldA) [Mass fraction] 95 % Kaylinn Dokken [facility] 07-07-2024 19:33-0500 Systolic blood pressure 146 mm[Hg] Kaylinn Dokken [facility] 07-07-2024 19:20-0500 Body temperature 98.06 [degF] Kaylinn Dokken [facility] 07-07-2024 18:33-0500 Body temperature 98.24 [degF] Kaylinn Dokken [facility] 07-07-2024 18:33-0500 Heart rate 73 /min Kaylinn Dokken [facility] 07-07-2024 18:33-0500 Respiratory rate 18 /min Kaylinn Dokken [facility] 07-07-2024 18:19-0500 gluc 142 mg/dL Kaylinn Dokken [facility] 07-07-2024 18:18-0500 Heart rate 73 /min Kaylinn Dokken [facility] 07-07-2024 18:18-0500 Respiratory rate 18 /min Eugenian Cheen [facility] 05-18-2024 10:53-0400 Body height 152.4 cm Da Biedenbach DO Work Phone: [facility] 05-18-2024 10:53-0400 Body mass index (BMI) [Ratio] 38.08 kg/m2 Da Biedenbach DO Work Phone: [facility] 05-18-2024 10:53-0400 Body weight 88.45 kg Da Biedenbach DO Work Phone: [facility] 04-13-2024 11:09-0400 Body height 152.4 cm Da Biedenbach DO Work Phone: [facility] 04-13-2024 11:09-0400 Body mass index (BMI) [Ratio] 38.08 kg/m2 Da Biedenbach DO Work Phone: [facility] 04-13-2024 11:09-0400 Body weight 88.45 kg Da Biedenbach DO Work Phone: [facility] 04-10-2024 09:25-0400 Body height 149.9 cm Da Biedenbach DO Work Phone: [facility] 04-10-2024 09:25-0400 Body mass index (BMI) [Ratio] 39.39 kg/m2 Da Biedenbach DO Work Phone: [facility] 04-10-2024 09:25-0400 Body weight 88.45 kg Da Biedenbach DO Work Phone: [facility] 03-26-2024 11:11-0400 Body height 152.4 cm Da Biedenbach DO Work Phone: [facility] 03-26-2024 11:11-0400 Body mass index (BMI) [Ratio] 38.08 kg/m2 Da Phillip DO Work Phone: [facility] 03-26-2024 11:11-0400 Body weight 88.45 kg Da Phillip DO Work Phone: [facility] 08-27-2023 15:38-0500 Body height 149.9 cm Brice Estrella DO Work Phone: [facility] 08-27-2023 15:38-0500 Body mass index (BMI) [Ratio] 39.59 kg/m2 Brice Estrella DO Work Phone: [facility] 08-27-2023 15:38-0500 Body temperature 97.39 [degF] Brice Estrella DO Work Phone: [facility] 08-27-2023 15:38-0500 Body weight 88.91 kg Brice Estrella DO Work Phone: [facility] 06-07-2023 08:27-0500 Heart rate 77 /min Brice Estrella [facility] 06-07-2023 08:27-0500 SaO2% (BldA) [Mass fraction] 98 % Brice Estrella [facility] 06-07-2023 08:26-0500 Respiratory rate 20 /min Brice Estrella [facility] 06-07-2023 08:26-0500 Blood Pressure Location Brice Estrella [facility] 06-07-2023 08:26-0500 Diastolic blood pressure 64 mm[Hg] Brice Delores [facility] 06-07-2023 08:26-0500 Mean blood pressure 77 mm[Hg] Bricelaura Estrella [facility] 06-07-2023 08:26-0500 Systolic blood pressure 102 mm[Hg] Brice Delores [facility] 06-07-2023 08:25-0500 Body temperature 97.88 [degF] Brice Estrella [facility] 06-07-2023 08:05-0500 Blood Pressure Location Brice Estrella [facility] 06-07-2023 08:05-0500 Diastolic blood pressure 59 mm[Hg] Brice Estrella [facility] 06-07-2023 08:05-0500 Heart rate 73 /min Brice Estrella [facility] 06-07-2023 08:05-0500 Respiratory rate 20 /min Brice Estrella [facility] 06-07-2023 08:05-0500 SaO2% (BldA) [Mass fraction] 95 % Brice Estrella [facility] 06-07-2023 08:05-0500 Systolic blood pressure 114 mm[Hg] Brice Estrella [facility] 06-07-2023 07:30-0500 Blood Pressure Location Brice Estrella [facility] 06-07-2023 07:30-0500 Diastolic blood pressure 70 mm[Hg] Brice Estrella [facility] 06-07-2023 07:30-0500 Heart rate 70 /min Brice Estrella [facility] 06-07-2023 07:30-0500 Respiratory rate 20 /min Brice Estrella [facility] 06-07-2023 07:30-0500 SaO2% (BldA) [Mass fraction] 96 % Brice Estrella [facility] 06-07-2023 07:30-0500 Systolic blood pressure 114 mm[Hg] Brice Estrella [facility] 06-07-2023 06:52-0500 Mean blood pressure 76 mm[Hg] Brice Estrella [facility] 06-07-2023 06:49-0500 Body temperature 97.88 [degF] Brice Estrella [facility] 06-07-2023 06:49-0500 Mean blood pressure 79 mm[Hg] Brice Estrella [facility] Encounters Encounter Date Encounter Type Care Provider Facility Start: 09-07-2024 ambulatory Kang R BOSS Facili ty:[facility] Start: 08-18-2024 End: 08-18-2024 Bamboo flowsheet Mathieu Naqvi MD Work Phone: [facility] Start: 08-18-2024 End: 08-18-2024 Bamboo flowsheet Mathieu Naqvi MD Work Phone: [facility] Start: 08-14-2024 ambulatory Kang BOSS Facility : [facility] Start: 08-14-2024 ambulatory Facility:[facility] Start: 07-07-2024 End: 07-07-2024 Emergency department patient visit Tiny Niurka Leeanne [facility] Start: 05-18-2024 End: 05-18-2024 [...] Phone: [facility] Start: 04-13-2024 End: 04-13-2024 Bamboo flowsheet Da Phillip DO Work Phone: [facility] Start: 04-13-2024 End: 04-13-2024 Bamboo flowsheet Da Phillip DO Work Phone: [facility] Start: 04-13-2024 End: 04-13-2024 Departed Referred TELECOMMUNICATIONS NETWORK ENGINEER-C Aggie Davis Work Phone: [facility] Work Phone: Start: 04-13-2024 End: 04-13-2024 ambulatory TELE[employer] NETWORK ENGINEER-C Aggie Davis Work Phone: [facility] Work Phone: Start: 04-13-2024 End: 04-13-2024 [...] Start: 03-26-2024 End: 03-26-2024 Patient encounter procedure TELECOMM[employer]ICATION[employer] NETWORK ENGINEER-C Aggie Davis Work Phone: [facility] Work Phone: Start: 03-26-2024 End: 03-26-2024 ambulatory TELECOMM[employer]ICATIONS NETWORK ENGINEER-C Aggie Davis Work Phone: [facility] Work Phone: Start: 03-26-2024 End: 03-26-2024 Office outpatient new 45 minutes Da Phillip DO Work Phone: [facility] Comment on above: Thyroid nodule (CMS/ HCC) (Primary Dx); Nontoxic multinodular goiter (CMS/HCC); Thyroid dysfunction (CMS/HCC) Start: 03-26-2024 End: 03-26-2024 ambulatory DA PHILLIP Not Available Start: 02-14-2024 End: 02-14-2024 ambulatory TELECOMM[employer]ICATIONS NETWORK ENGINEER-C Aggie Davis Work Phone: [facility] Work Phone: Start: 02-14-2024 End: 02-14-2024 Departed Referred TELECOMM[employer]ICATIONS NETWORK ENGINEER-C Aggie Davis Work Phone: [facility] Start: 01-25-2024 Non-patient / Non-visit TELECOMM[employer]ICATIONS NETWORK ENGINEER-C Keke Davis Work Phone: [facility] Work Phone: Start: 12-31-2023 End: 12-31-2023 ambulatory BRICE ESTRELLA Not Available Start: 11-11-2023 End: 02-26-2024 ambulatory Brice Estrella Facility[place] Start: 10-29-2023 End: 10-29-2023 ambulatory BRICE ESTRELLA [...] Not Available Start: 08-22-2023 End: 08-22-2023 ambulatory TELECOMM[employer]ICATIONS NETWORK ENGINEER-C Aggie Davis Work Phone: [facility] Work Phone: Start: 08-22-2023 End: 08-22-2023 Discharged Recurring TELECOMMUNICATIONS NETWORK ENGINEER-C Aggie Davis Work Phone: [facility] [address] Start: 08-06-2023 End: 08-06-2023 ambulatory BRICE ESTRELLA Not Available Start: 07-23-2023 End: 07-23-2023 ambulatory BRICE ESTRELLA Not Available Start: 07-16-2023 End: 07-16-2023 ambulatory BRICE ESTRELLA Not Available Start: 06-18-2023 End: 06-18-2023 ambulatory BRICE ESTRELLA Not Available Start: 06-07-2023 End: 06-07-2023 Admission to same day surgery center Brice Estrella [facility] Start: 12-26-2022 ambulatory AGGIE DAVIS Facility: [facility] Start: 12-20-2022 End: 12-21-2022 ambulatory AGGIE DAVIS Facility:[facility] Start: 12-15-2022 End: 12-16-2022 ambulatory AGGIE DAVIS Facility:[facility] Start: 12-01-2022 End: 12-02-2022 ambulatory AGGIE DAVIS Facility:[facility] Start: 12-01-2022 End: 12-01-2022 ambulatory AGGIE DAVIS Facility:[facility] Start: 08-06-2022 End: 08-06-2022 ambulatory AGGIE MCCORMACKMER Facility:[facility] Start: 07-02-2022 End: 07-03-2022 ambulatory AGGIE MCCORMACKMER Facility:[facility] Start: 05-26-2022 End: 05-27-2022 ambulatory AGGIE MCCORMACKMER Facility:[facility] Start: 04-05-2022 End: 04-06-2022 ambulatory AGGIE MCCORMACKMER Facility:[facility] Start: 03-25-2022 ambulatory AGGIE SUSAN Facility: [facility] Start: 03-15-2022 End: 03-16-2022 ambulatory AGGIE MCCORMACKMER Facility:[facility] Start: 02-14-2022 End: 02-15-2022 ambulatory AGGIE MCCORMACKMER Facility:[facility] Start: 11-09-2021 End: 11-09-2021 Patient encounter procedure Michele Jane [facility] Procedures Date Procedure Procedure Detail Performing Clinician Start: 08-27-2023 Arthrocentesis aspir &/inj major jt/bursa w/o us Phi DESIR Work Phone: Start: 06-07-2023 Decompression of med pablito nerve Brice Estrella Start: 09-30-2020 Arthroscopy of knee Ronen Jane Start: 05-09-2016 Right little finger release A-1 linda Michele Jane Cholecystectomy Michele Jane History of tonsillectomy Ronen Jane Hysterectomy Michele Jane needle removed right foot Emilee reynaldo Jane Operation on toenail Michele perez Release of trigger finger Emilee hn Moshadyy right carpel tunnel Michele dill right knee arthroscopy x2 Emilee hn Mourany Plan of Treatment Date Care Activity Detail Author Start: 06-01-2025 Pneumococcal Vaccine: 65+ Years (3 - PPSV23 or PCV20) Pneumococcal Vaccine: 65+ Years (3 - PPSV23 or PCV20) [facility] Start: 06-01-2025 Pneumococcal Vaccine: 65+ Years (3 of 3 - PPSV23 or PCV20) Pneumococcal Vaccine: 65+ Years (3 of 3 - PPSV23 or PCV20) [facility] Start: 11-09-2024 End: 11-09-2024 Patient encounter procedure 11/09/2024 10:00 AM EDT Office Visit [facility] [address] [place] [id number] Da Phillip DO [address] [place] [address] [facility] Start: 08-20-2024 End: 08-20-2024 Patient encounter procedure 08/20/2024 9:00 AM EST Office Visit [facility] [address] [address] [place] [address] Morales De La Rosa DO [address] [place] [address] [facility] Start: 08-18-2024 End: 08-18-2024 Patient encounter procedure 08/18/2024 10:30 AM EST Office Visit [facility] [address] [place] [id number] Mathieu Naqvi MD [address] [place] [address] [facility] Comment on above: Arrived Start: 07-27-2024 End: 07-27-2024 Patient encounter procedure 07/27/2024 1:00 PM EST Office Visit [facility] [address] [place] [address] Chana Iglesias S, AUD [address] [place] [address] [facility] Start: 05-04-2024 End: 05-04-2024 Patient encounter procedure 05/04/2024 10:15 AM EDT Office Visit [facility] [address] [place] [address] Da Phillip, DO [address] [place] [address] Arrived [facility] [place] Comment on above: Arrived Start: 04-13-2024 End: 04-13-2024 Patient encounter procedure 04/13/2024 11:00 AM EDT Office Visit [facility] [address] [place] [address] Da Phillip, DO [address] [place] [address] [facility] [place] Start: 04-10-2024 End: 04-10-2024 Patient encounter procedure [facility] Comment on above: Arrived Start: 03-29-2024 Influenza vaccination Influenza Vaccine (#1) [facility] Start: 03-26-2024 End: 03-26-2025 Thyrotropin [Units/volume] in Serum or Plasma [facility] Comment on above: Expected: 03/26/2024 (Approximate), Expi res: 03/26/2025 Start: 03-26-2024 End: 03-26-2025 Triiodothyronine (T3) [Mass/volume] in Serum or Plasma T3 Lab Routine Thyroid nodule (CMS/HCC) Expected: 03/26/2024 (Approximate), Expires: 03/26/2025 [facility] Work Phone: Comment on above: Expected: 03/26/2024 (Approximate), Expi res: 03/26/2025 Start: 03-26-2024 End: 03-26-2024 Patient encounter procedure 03/26/2024 11:00 AM EDT Office Visit [facility] [address] [place] [address] Da Phillip, DO [address] [place] [address] Arrived [facility] Comment on above: Arrived Start: 10-08-2023 End: 10-08-2023 Patient encounter procedure 10/08/2023 10:00 AM EDT Office Visit [facility] [address] [place] [id number] Brice Estrella DO [address] [place] [address] [facility] Start: 07-29-2023 Pneumococcal Vaccine: 65+ Years (3 of 3 - PPSV23 or PCV20) Pneumococcal Vaccine: 65+ Years (3 of 3 - PPSV23 or PCV20) [facility] Start: 1994 Screening for malignant neoplasm of breast Mammogram [facility] Start: 1973 Urine screening for protein Diabetes: Urine Protein Screening [facility] Start: 1964 Glaucoma screening Diabetes: Retinopathy Screening [facility] Start: 1955 Hemoglobin A1c measurement Diabetes: Hemoglobin A1C [facility] Start: 1955 Medicare Annual Wellness (AWV) Medicare Annual Wellness (AWV) [facility] Start: 1954 Screening for malignant neoplasm of colon [facility] Immunizations Immunization Date Immunization Notes Care Provider Fa cility 12-27-2023 zoster vaccine recombinant Da Phillip DO Work Phone: [facility] 06-30-2023 Influenza, High-dose Seasonal, Quadrivalent, Preservative Free Da Phillip DO Work Phone: [facility] 06-30-2023 influenza virus vaccine, unspecified formulation Da Phillip DO Work Phone: [facility] 10-30-2022 Influenza, High-dose Seasonal, Quadrivalent, Preservative Free Da Phillip DO Work Phone: [facility] 05-31-2022 Influenza, Seasonal, Quadrivalent, Adjuvanted Da Phillip DO Work Phone: [facility] 11-14-2020 SARS-CoV-2 (COVID-19 ) mRNA-1273 vaccine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
== END 2024-08-17 12:01 | disposition home or self-care (01) ==
LOC: SLEEP 08-18 10:27
PROVIDERS: PCP Nurse Practitioner Family; Visit Provider Nurse Practitioner Family
DX: G47.33 Obstructive sleep apnea (adult) (pediatric) (principal); F51.01 Primary insomnia; R53.83 Other fatigue; G44.89 Other headache syndrome
CPT/HCPCS: 95806

== ENCOUNTER 2024-09-01 20:43 | Outpatient (OUT) | payer MEDICARE, SELFPAY ==
--- OUTSIDE RECORDS SUMMARY | 2024-09-01 20:46 | XMS_ITS | CCD ---
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 [Cerebral infarction, unspecified] Onset: 4 Resolved: 4 03-25-2024 Chronic Acute myocardial infarction (20 sources) Myocardial infarction; Translations: [Acute myocardial infarction, unspecified] Onset: 4 Resolved: 4 11-28-2020 Chronic Asthma (20 sources) Asthma; Translations: [Unspecified asthma, uncomplicated] Onset: 4 Resolved: 4 05-02-2016 Chronic Calculus of urinary tract (20 sources) Kidney stone; Translations: [Calculus of kidney] Onset: 4 Resolved: 4 03-25-2024 Episodic Chronic obstructive pulmonary disease and bronchiectasis (20 sources) Purulent bronchitis; Translations: [Mucopurulent chronic bronchitis] [...] ENCOUNTER] Onset: 3 Episodic E Codes: Unspecified (20 sources) Accident while engaged in work-related activity; Translations: [Civilian activity done for income or pay] Onset: 7 Resolved: 4 03-25-2024 Episodic Essential hypertension (20 sources) Hypertensive disorder; Translations: [Essential (primary) hypertension] Onset: 4 Resolved: 4 09-19-2020 Chronic Gout and other crystal arthropathies (20 sources) Chondrocalcinosis of joint of right knee; Translations: [Other chondrocalcinosis, right knee] Onset: 4 Resolved: 4 03-25-2024 Chronic Joint disorders and dislocations; trauma-related (20 sources) Loose body in knee; Translations: [Loose body in knee, unspecified knee] Onset: 4 Resolved: 4 03-25-2024 Chronic Joint disorders and dislocations; trauma-related (20 sources) Tear of medial meniscus of knee; Translations: [Other tear of medial meniscus, current injury, unspecified knee, initial encounter] Onset: 4 Resolved: 4 09-19-2020 Episodic Osteoarthritis (20 sources) Arthritis; Translations: [Unspecified osteoarthritis, unspecified site] Onset: 4 Resolved: 4 03-25-2024 Chronic Other and unspecified benign neoplasm (20 sources) Lipoma of back; Translations: [Benign lipomatous neoplasm of skin and subcutaneous tissue of trunk] Onset: 4 Resolved: 4 11-28-2020 Episodic Other connective tissue disease (4 sources) Pain in right lower leg; Translations: [PAIN IN RIGHT LOWER LEG] Onset: 2 Episodic Other connective tissue disease (20 sources) Trochanteric bursitis; Translations: [Trochanteric bursitis, left hip] Onset: 4 Resolved: 4 03-25-2024 Episodic Other connective tissue disease (20 sources) Pain in right lower limb; Translations: [Pain in right leg] Onset: 7 Resolved: 4 03-25-2024 Episodic Other ear and sense organ disorders (20 sources) Hearing loss; Translations: [Unspecified hearing loss, unspecified ear] Onset: 4 Resolved: 4 03-25-2024 Chronic Other ear and sense organ disorders (20 sources) Sensorineural hearing loss, bilateral; Translations: [Sensorineural hearing loss, bilateral] Onset: 4 Resolved: 4 03-25-2024 Chronic Other ear and sense organ disorders (20 sources) Bilateral tinnitus; Translations: [Tinnitus, bilateral] Onset: 4 Resolved: 4 03-25-2024 Episodic Other ear and sense organ disorders (20 sources) Pain of ear structure; Translations: [Otalgia, unspecified ear] Onset: 4 Resolved: 4 03-25-2024 Episodic Other nervous system disorders (20 sources) Paresthesia of hand ; Translations: [Paresthesia of skin] Onset: 4 Resolved: 4 03-25-2024 Episodic Other non-traumatic joint disorders (3 sources) Pain in right shoulder; Translations: [PAIN IN RIGHT SHOULDER] Onset: 3 Episodic Other nutritional; endocrine; and metabolic disorders (20 sources) Body mass index 30+ - obesity; Translations: [Obesity, unspecified] Onset: 4 Resolved: 4 11-30-2020 Chronic Other nutritional; endocrine; and metabolic disorders (20 sources) History of hypercholesterolemia; Translations: [Personal history of other endocrine, nutritional and metabolic disease] Onset: 4 Resolved: 4 05-02-2016 Episodic Other screening for suspected conditions (not mental disorders or infectious disease) (1 source) Encounter for screening mammogram for malignant neoplasm of breast; Translations: [ENC SCR MAMMO MALIG NEOPLASM BREAST] Onset: 2 Episodic Pneumonia (except that caused by tuberculosis or sexually transmitted disease) (20 sources) Pneumonia; Translations: [Pneumonia, unspecified organism] Onset: 4 Resolved: 4 03-25-2024 Episodic Residual codes; unclassified (1 source) Family history of leukemia; Translations: [FAMILY HISTORY OF LEUKEMIA] Onset: 2 Episodic Residual codes; unclassified (1 source) Family history of malignant neoplasm, unspecified; Translations: [FAM HX MALIGNANT NEOPLASM UNS] Onset: 2 Episodic Residual codes; unclassified (20 sources) Tobacco user; Translations: [Tobacco use] Onset: 4 Resolved: 4 03-25-2024 Episodic Spondylosis; intervertebral disc disorders; other back problems (20 sources) Herniation of nucleus pulposus of lumbar intervertebral disc; Translations: [Other intervertebral disc displacement, lumbar region] Onset: 4 Resolved: 4 03-25-2024 Chronic Spondylosis; intervertebral disc disorders; other back problems (20 sources) Backache; Translations: [Dorsalgia, unspecified] Onset: 4 Resolved: 4 03-25-2024 Episodic Substance-related disorders (20 sources) Cigarette smoker ; Translations: [Smoker] Onset: 4 Resolved: 4 11-28-2020 Chronic Comment on above: Added secondary to d ocumentation in Social History. Thyroid disorders (2 sources) Thyroid dysfunction; Translations: [Disorder of thyroid, unspecified] 03-26-2024 Episodic Results Test Name Value Interpretation Reference Range Facility No Panel Informationon 08-31 Sue Henning, BEN T 08/31/2024 8:01 PM M Inj/Asp: R elbow on 08/31/2024 10:53 AM Indications: pain Details: 25 G needle Medications: 1 mL betamethasone acetate-betamethasone sodium phosphate 6 (3-3) MG/ML Consent was given by the patient. [facility] XR Elbow - right 3 Viewson 0 08-31-2024 Imaging Result: Three views of the right elbow, AP/lateral/oblique, taken today and saved to the permanent medical record. Joint spaces are preserved, no swelling in the olecranon bursa, no spurring at the olecranon, no fat pad sign, no bony lesions [facility] Radiology Study observation (narrative) [facility] Office Visiton 08-20-2024 Follow-up visit [id number] Virgen Harris 1955 F Date Provider Department Center 08/20/2024 Nely-PONCE SILVESTRE CARD [facility] Family History Problem Relation Age of Onset Heart failure Mother Heart failure Father Heart failure Paternal Grandmother Family Status - Relation Status Age at Mother Father Paternal Grandmother Level of Service:18828 [facility] OFFICE/OUTPATIENT NEW LOW MDM 30 MINUTES Normal [facility] C Urineon 07-09-2024 Bacteria identified Cx Nom [...] Locations R1: This test was performed at: [facility], [address] [place] [address], [facility]- , , Normal [facility] Comment on above: Performed By: #### 2 [id number] #### [facility] [address] [place] [address] ED Note-Physicianon 07-09-20 24 ED Note-Physician ED Note-Physician Basic Information Time Seen: Kelly Smith PA-C 07/07/2024 18:19 Chief Complaint c/o neck, left lower back and head pain after syncopal episode at work around 1745. pt unsure of reason to passing out. hx of diabetes, on insulin. pt takes ASA daily History of Present Illness This patient presents emergency department after syncopal episode at work. Patient works at [employer] and states all of a sudden she [...] chart if appl (more content not included)... [facility] Comment on above: Result Comment: Elec tronically Signed By: Kelly Smith PA-C\.br\Date and Time Signed: 07/08/24 02:10 EST\.br\Electronically Co-Signed By: Ean Azevedo M.D..br\Date and Time Co-Signed: 07/09/24 07:05 EST ABO/Rh History Checkon 07-08 ABO/Rh History Check Patient discharged prior Normal [facility] Comment on above: Performed By: #### 1 [id number] #### [facility] [address] [place] [address] CT Abdomen/Pelvis w/ Contras ton 07-08-2024 CT [...] 300 Contrast amount in ml's: [address] [facility] [address] Chest w/ Contraston 07-08 CT Chest [...] 300 Contrast amount in ml's: [address] [facility] [address] Head or Brain w/o Contras ton [...] MD Transcribed by: JOSH Technologist: YONIS Normal [facility] CT Spine Cervical w/o Shannaa ston 07-08-2024 CT Spine Cervical w/o Contrast [...] MD Transcribed by: JOSH Technologist: YONIS Normal [facility] ABO/Rhon 07-07-2024 ABO/Rh Positive Invalid Interpretation Code [facility] Comment on above: Performed By: #### 2 [id number] #### [facility] [address] [place] [address] ABSCon 07-07-2024 ABSC Gel Interp Negative Normal [facility] Comment on above: Performed By: #### 1 [id number] #### [facility] [address] [place] [address] B hCG Qualon 07-07-2024 Beta HCG ( test) Ql Negative Normal [facility] Comment on above: Performed By: #### 2 [id number] #### [facility] [address] [place] [address] BLOOD BANKOrdered By: Willard Greenwood on 07-07-2024 ABO/Rh Interp Positive Invalid Interpretation Code [facility] BB Subsection ABSC Gel Interp Negative (07/07/24 6:48 PM) Normal [facility] BB Subsection BMPon 07-07-2024 Anion gap [Moles/Vol] 11 mmol/L Normal 6-16 [facility] Comment on above: Performed By: #### 2 [id number] #### [facility] [address] [place] [address] Calcium [Mass/Vol] 9.1 mg/dL Normal 8.9-11.1 [facility] Comment on above: Performed By: #### 2 [id number] #### [facility] [address] [place] [address] Chloride [Moles/Vol] 104 mmol/L Normal 101-111 [facility] Comment on above: Performed By: #### 2 [id number] #### [facility] [address] [place] [address] CO2 [Moles/Vol] 26 mmol/L Normal 21-31 [facility] Comment on above: Performed By: #### 2 [id number] #### [facility] [address] [place] [address] Creatinine [Mass/Vol] 1.8 mg/dL High 0.5-1.3 [facility] Comment on above: Performed By: #### 2 [id number] #### [facility] [address] [place] [address] Glucose [Mass/Vol] 154 mg/dL Normal 55-199 [facility] Comment on above: Performed By: #### 2 [id number] #### [facility] [address] [place] [address] Potassium [Moles/Vol] 3.6 mmol/L Normal 3.5-5.3 [facility] Comment on above: Performed By: #### 2 [id number] #### [facility] [address] [place] [address] Sodium [Moles/Vol] 137 mmol/L Normal 135-145 [facility] Comment on above: Performed By: #### 2 [id number] #### [facility] [address] [place] [address] Urea nitrogen [Mass/Vol] 23 mg/dL High 5-21 [facility] Comment on above: Performed By: #### 2 [id number] #### [facility] [address] [place] [address] Urea nitrogen/Creatinine [Mass ratio] 13 No Units Normal 10-20 [facility] Comment on above: Performed By: #### 2 [id number] #### [facility] [address] [place] [address] Blood Bank ID#on 07-07-2024 BBID# [id number] Invalid Interpretation Code [facility] Comment on above: Performed By: #### 1 [id number] #### [facility] [address] [place] [address] CBC w/ Auto Diffon 4 Basophils/100 WBC (Bld) 0.6 % Normal 0.0-2.0 [facility] Comment on above: Result Comment: Amy ection date/time has been modified to: 18:23:00. Previous collection date/time: 18:45:00. Performed By: #### 2 [id number] #### [facility] [address] [place] [address] Basophils/Leukocytes Auto (Bld) [Pure # fraction] 0.1 E9/L Normal 0.0-0.2 [facility] Comment on above: Result Comment: Amy ection date/time has been modified to: 18:23:00. Previous collection date/time: 18:45:00. Performed By: #### 2 [id number] #### [facility] [address] [place] [address] Eosinophils (Bld) [#/Vol] 0.3 E9/L Normal 0.0-0.5 [facility] Comment on above: Result Comment: Amy ection date/time has been modified to: 18:23:00. Previous collection date/time: 18:45:00. Performed By: #### 2 [id number] #### [facility] [address] [place] [address] Eosinophils/100 WBC (Bld) 3.1 % Normal 0.0-8.0 [facility] Comment on above: Result Comment: Amy ection date/time has been modified to: 18:23:00. Previous collection date/time: 18:45:00. Performed By: #### 2 [id number] #### [facility] [address] [place] [address] Erythrocyte distribution width (RBC) [Ratio] 15.1 % High 10.9-14.2 [facility] Comment on above: Result Comment: Amy ection date/time has been modified to: 18:23:00. Previous collection date/time: 18:45:00. Performed By: #### 2 [id number] #### [facility] [address] [place] [address] Hematocrit (Bld) [Volume fraction] 38.3 % Normal 34.0-46.0 [facility] Comment on above: Result Comment: Amy ection date/time has been modified to: 18:23:00. Previous collection date/time: 18:45:00. Performed By: #### 2 [id number] #### [facility] [address] [place] [address] Hemoglobin (Bld) [Mass/Vol] 12.7 g/dL Normal 12.0-16.0 [facility] Comment on above: Result Comment: Amy ection date/time has been modified to: 18:23:00. Previous collection date/time: 18:45:00. Performed By: #### 2 [id number] #### [facility] [address] [place] [address] Lymphocytes (Bld) [#/Vol] 2.4 E9/L Normal 1.0-4.0 [facility] Comment on above: Result Comment: Amy ection date/time has been modified to: 18:23:00. Previous collection date/time: 18:45:00. Performed By: #### 2 [id number] #### [facility] [address] [place] [address] Lymphocytes/100 WBC (Bld) 26.6 % Normal 14.0-50.0 [facility] Comment on above: Result Comment: Amy ection date/time has been modified to: 18:23:00. Previous collection date/time: 18:45:00. Performed By: #### 2 [id number] #### [facility] [address] [place] [address] MCH (RBC) [Entitic mass] 29.9 pg Normal 27.0-34.0 [facility] Comment on above: Result Comment: Amy ection date/time has been modified to: 18:23:00. Previous collection date/time: 18:45:00. Performed By: #### 2 [id number] #### [facility] [address] [place] [address] MCHC (RBC) [Mass/Vol] 33.1 g/dL Normal 31.4-36.0 [facility] Comment on above: Result Comment: Amy ection date/time has been modified to: 18:23:00. Previous collection date/time: 18:45:00. Performed By: #### 2 [id number] #### [facility] [address] [place] [address] MCV (RBC) [Entitic vol] 90.2 fL Normal 80.0-100.0 [facility] Comment on above: Result Comment: Amy ection date/time has been modified to: 18:23:00. Previous collection date/time: 18:45:00. Performed By: #### 2 [id number] #### [facility] [address] [place] [address] Monocytes (Bld) [#/Vol] 0.5 E9/L Normal 0.2-1.0 [facility] Comment on above: Result Comment: Amy ection date/time has been modified to: 18:23:00. Previous collection date/time: 18:45:00. Performed By: #### 2 [id number] #### [facility] [address] [place] [address] Neutrophils (Bld) [#/Vol] 5.8 E9/L Normal 2.0-7.5 [facility] Comment on above: Result Comment: Amy ection date/time has been modified to: 18:23:00. Previous collection date/time: 18:45:00. Performed By: #### 2 [id number] #### [facility] [address] [place] [address] Neutrophils/100 WBC (Bld) 64.2 % Normal 36.0-75.0 [facility] Comment on above: Result Comment: Amy ection date/time has been modified to: 18:23:00. Previous collection date/time: 18:45:00. Performed By: #### 2 [id number] #### [facility] [address] [place] [address] Platelet mean volume (Bld) [Entitic vol] 10.1 fL Normal 6.4-10.8 [facility] Comment on above: Result Comment: Amy ection date/time has been modified to: 18:23:00. Previous collection date/time: 18:45:00. Performed By: #### 2 [id number] #### [facility] [address] [place] [address] Platelets (Bld) [#/Vol] 183.0 E9/L Normal 150.0-500.0 [facility] Comment on above: Result Comment: Amy ection date/time has been modified to: 18:23:00. Previous collection date/time: 18:45:00. Performed By: #### 2 [id number] #### [facility] [address] [place] [address] RBC (Bld) [#/Vol] 4.2 E12/L Low 4.3-5.9 [facility] Comment on above: Result Comment: Amy ection date/time has been modified to: 18:23:00. Previous collection date/time: 18:45:00. Performed By: #### 2 [id number] #### [facility] [address] [place] [address] WBC corrected for nucl RBC Auto (Bld) [#/Vol] 9.1 E9/L Normal 4.0-11.0 [facility] Comment on above: Result Comment: Amy ection date/time has been modified to: 18:23:00. Previous collection date/time: 18:45:00. Performed By: #### 2 [id number] #### [facility] [address] [place] [address] Basophils/100 WBC (Bld) 0.6 % Normal 0.0-2.0 [facility] Comment on above: Performed By: #### 2 [id number] #### [facility] [address] [place] [address] Basophils/Leukocytes Auto (Bld) [Pure # fraction] 0.1 E9/L Normal 0.0-0.2 [facility] Comment on above: Performed By: #### 2 [id number] #### [facility] [address] [place] [address] Eosinophils (Bld) [#/Vol] 0.3 E9/L Normal 0.0-0.5 [facility] Comment on above: Performed By: #### 2 [id number] #### [facility] [address] [place] [address] Eosinophils/100 WBC (Bld) 3.1 % Normal 0.0-8.0 [facility] Comment on above: Performed By: #### 2 [id number] #### [facility] [address] [place] [address] Erythrocyte distribution width (RBC) [Ratio] 15.1 % High 10.9-14.2 [facility] Comment on above: Performed By: #### 2 [id number] #### [facility] [address] [place] [address] Hematocrit (Bld) [Volume fraction] 38.3 % Normal 34.0-46.0 [facility] Comment on above: Performed By: #### 2 [id number] #### [facility] [address] [place] [address] Hemoglobin (Bld) [Mass/Vol] 12.7 g/dL Normal 12.0-16.0 [facility] Comment on above: Performed By: #### 2 [id number] #### [facility] [address] [place] [address] Lymphocytes (Bld) [#/Vol] 2.4 E9/L Normal 1.0-4.0 [facility] Comment on above: Performed By: #### 2 [id number] #### [facility] [address] [place] [address] Lymphocytes/100 WBC (Bld) 26.6 % Normal 14.0-50.0 [facility] Comment on above: Performed By: #### 2 [id number] #### [facility] [address] [place] [address] MCH (RBC) [Entitic mass] 29.9 pg Normal 27.0-34.0 [facility] Comment on above: Performed By: #### 2 [id number] #### [facility] [address] [place] [address] MCHC (RBC) [Mass/Vol] 33.1 g/dL Normal 31.4-36.0 [facility] Comment on above: Performed By: #### 2 [id number] #### [facility] [address] [place] [address] MCV (RBC) [Entitic vol] 90.2 fL Normal 80.0-100.0 [facility] Comment on above: Performed By: #### 2 [id number] #### [facility] [address] [place] [address] Monocytes (Bld) [#/Vol] 0.5 E9/L Normal 0.2-1.0 [facility] Comment on above: Performed By: #### 2 [id number] #### [facility] [address] [place] [address] Neutrophils (Bld) [#/Vol] 5.8 E9/L Normal 2.0-7.5 [facility] Comment on above: Performed By: #### 2 [id number] #### [facility] [address] [place] [address] Neutrophils/100 WBC (Bld) 64.2 % Normal 36.0-75.0 [facility] Comment on above: Performed By: #### 2 [id number] #### [facility] [address] [place] [address] Platelet mean volume (Bld) [Entitic vol] 10.1 fL Normal 6.4-10.8 [facility] Comment on above: Performed By: #### 2 [id number] #### [facility] [address] [place] [address] Platelets (Bld) [#/Vol] 183.0 E9/L Normal 150.0-500.0 [facility] Comment on above: Performed By: #### 2 [id number] #### [facility] [address] [place] [address] RBC (Bld) [#/Vol] 4.2 E12/L Low 4.3-5.9 [facility] Comment on above: Performed By: #### 2 [id number] #### [facility] [address] [place] [address] 31278 WBC corrected for nucl RBC Auto (Bld) [#/Vol] 9.1 E9/L Normal 4.0-11.0 [facility] Comment on above: Performed By: #### 2 [id number] #### [facility] [address] [place] [address] CHEMISTRYOrdered By: SYSTEM SYSTEM on 07-07-2024 Amphetamines [...] Chem Comment on above: Interpretive Data: T yusra 95% CI (Confidence Interval) PPV (Positive Predictive [...] 07-07-2024 Total CK 149 Int._Unit/L Normal 14-261 [facility] Comment on above: Performed By: #### 2 [id number] #### [facility] [address] [place] [address] COAGULATIONOrdered By: Leslie Chavez on 07-07-2024 aPTT Coag (PPP) [Time] 31.1 s Normal 25.1 - 36.5 second(s) [facility] Auto Coag Comment on above: Interpretive Data: Keke olea 15 days - 4 weeks 1 - [...] the same coagulation reagent and instrumentation as [facility]. Currently there are no coagulation studies available worldwide for children to 14 days, and no normal ranges. Heparin therapeutic range (represented by Anti-Factor Xa activity of 0.2 - 0.4 U/mL) corresponds to PTT of 56.6 - 109.0 sec. INR Coag (PPP) [Relative time] 0.92 {INR} Invalid Interpretation Code [facility] Auto Coag Comment on above: Interpretive Data: I NR results are specifically intended to assess patients stabilized on long-term Anticoagulation therapy suggested INR s Less Intensive Anticoagulation 2.0 3.0 Conventional Range 3.0 4.5 PT Coag (PPP) [Time] 10.3 s Normal 9.4 - 1 2.5 second(s) [facility] Auto Coag Comment on above: Interpretive Data: 1 5 days - 4 weeks 1 - 5 months 6 -11 months 1-5 years 6-10 years 11 -17 years Mean: 11.2 (9.5-12.6) Mean: 11.0 (9.7-12.8) Mean: 11.0 (9.8-13.0) Mean: 11.3 (9.9-13.4) Mean: 11.7 (10.0-14.6) Mean: 11.8 (10.0 - 14.1) Pediatric Reference ranges were obtained from a study by shad Hernandez al. prepared from 1437 samples obtained at 7 different centers using the same coagulation reagent and instrumentation as [facility]. Currently there are no coagulation studies available worldwide for children to 14 days, and no normal ranges. ED Clinical Summaryon 2023 ED Clinical Summary ED Clinical Summary [place] [address] ED Clinical Summary Person Information Name: VIRGEN GONZALES [facility] Age: 68 Years : 1955 Sex: Female Language: Panamanian PCP: AGGIE DAVIS CNP Marital Status: Visit [...] 07/07/2024 22:29:17 07/07/2024 22:29:17 07/07/2024 22:29:17 AD[address]ESS: [address] [place] [id number] PHYS DOC NOTES: MEDICAL INFORMATION: Prescriptions Given: New Medications [facility], [address] [place], [place] [id number], [phone] cephalexin (cephalexin 500 mg Cap) 1 Capsules [...] EDUCATION INFORMATION: Instructions: Urinary Tract Infection, Adult, [id number]; Syncope, Adult, Zzuh-[id number]; Head Injury, Adult, Pdgt-[id number]; Contusion, Obss-pc-Gtbh Follow up: With: Address: When: AGGIE DAVIS [address] [place] [address] [phone] Business (more content not included)... Normal [facility] ED Patient Summaryon 024 ED Patient Summary ED Patient Summary [place] [address] Patient Discharge Instructions Person Information Name: VIRGEN GONZALES Age: 68 Years Arrival Date: 07/07/2024 18:16:48 Discharge Diagnosis: 1:Contusion of occipital region of scalp; 2:Syncope and collapse; 3:Acute lower urinary tract infection Primary Care Physician: AGGIE DAVIS CNP Provider Information Primary Provider: Tiny Fallon DO Advanced Probation Supervisor:None The exam and treatment you received in the Emergency Department were for an urgent problem and are not intended as complete care. It is important that you follow up with a doctor, nurse practitioner, or physician???s graphic design assistant for ongoing care. If your symptoms [...] With: Address: When: AGGIE DAVIS [address] [place] [phone] Business (1) In 3 days 07/10/2024 In the event that this physician does not participate in your insurance network, please consult with your insurance company to find a nearby participating provider. Patient Education Materials: Urinary Tract Infection, Adult, Zgqd-md-Ctwg; Syncope, Adult, Mtsm-sb-Gfro; Head Injury, Adult, Jjox-eh-Riwb; Contusion, Osoh-xh-Wzef A MESSAGE TO ALL PATIENTS REGARDING OPIOIDS PRESCRIPTION OPIOIDS: WHAT YOU NEED TO KNOW Prescription opioids can be used to help relieve lrqavggq-zd-sprelf pain and are often prescribed following a [...] (www.fda.gov/Drugs/Res ourcesFo (more content not included)... Normal [facility] Ethanolon 07-07-2024 Ethanol Lvl <10 Normal <=11 [facility] Comment on above: Performed By: #### 2 [id number] #### [facility] [address] [place] [address] HEMATOLOGYOrdered By: SYSTEM SYSTEM on 07-07-2024 Basophils/100 [...] 07-07-2024 Albumin [Mass/Vol] 3.9 g/dL Normal 3.3-5.0 [facility] Comment on above: Performed By: #### 2 [id number] #### [facility] [address] [place] [address] Albumin/Globulin (S) [Mass conc ratio] 1.4 Normal 1.1-2.2 [facility] Comment on above: Performed By: #### 2 [id number] #### [facility] [address] [place] [address] ALP [Catalytic activity/Vol] 112 Int._Unit/L High 21-98 [facility] Comment on above: Performed By: #### 2 [id number] #### [facility] [address] [place] [address] ALT No additional P-5'-P [Catalytic activity/Vol] 11 Int._Unit/L Normal 6-46 [facility] Comment on above: Performed By: #### 2 [id number] #### [facility] [address] [place] [address] AST [Catalytic activity/Vol] 13 Int._Unit/L Normal 5-43 [facility] Comment on above: Performed By: #### 2 [id number] #### [facility] [address] [place] [address] Bilirubin [Mass/Vol] 0.4 mg/dL Normal 0.0-1.1 [facility] Comment on above: Performed By: #### 2 [id number] #### [facility] [address] [place] [address] Bilirubin.direct [Mass/Vol] 0.1 mg/dL Normal 0.0-0.4 [facility] Comment on above: Performed By: #### 2 499339 #### [facility] [address] [place] [address] Bilirubin.indirect [Mass or moles/Vol] 0.3 mg/dL Normal 0.1-0.9 [facility] Comment on above: Performed By: #### 2 [id number] #### [facility] [address] [place] [address] Globulin (S) [Mass/Vol] 2.8 g/dL Normal 1.4-4.0 [facility] Comment on above: Performed By: #### 2 [id number] #### [facility] [address] [place] [address] Protein [Mass/Vol] 6.7 g/dL Normal 6.0-7.8 [facility] Comment on above: Performed By: #### 2 [id number] #### [facility] [address] [place] [address] Lactic Acidon 07-07-2024 Lactic Acid Lvl 0.9 mmol/L Normal 0.5-2.2 [facility] Comment on above: Performed By: #### 2 [id number] #### [facility] [address] [place] [address] Lipase Levelon 07-07-2024 Lipase [Catalytic activity/Vol] 22 U/L Normal 13-58 [facility] Comment on above: Performed By: #### 2 [id number] #### [facility] [address] [place] [address] Magnesiumon 07-07-2024 Magnesium [Mass/Vol] 2.2 mg/dL Normal 1.3-2.4 [facility] Comment on above: Performed By: #### 2 [id number] #### [facility] [address] [place] [address] Myoglobinon 07-07-2024 Myoglobin [Mass/Vol] 128 ng/mL High <=69 [facility] Comment on above: Performed By: #### 2 [id number] #### [facility] [address] [place] [address] PT & PTTon 07-07-2024 aPTT Coag (PPP) [Time] 31.1 second(s) Normal 25.1-36.5 [facility] Comment on above: Result Comment: Para meter 15 days - 4 weeks 1 - 5 months 6 - 11 months 1 - 5 years 6 - 10 years 11 - 17 years PTT Mean: 35.4 (27.6-45.6) Mean: 33.5 (24.8-40.7) Mean: 32.4 (25.1-40.7) Mean: 31.6 (24.0-39.2) Mean: 31.6 (26.9-38.7) Mean: 31.0 (24.6-38.4) Pediatric Reference ranges were obtained from a study by shad Hernandez al. prepared from 1437 samples obtained at 7 different centers using the same coagulation reagent and instrumentation as [facility]. Currently there are no coagulation studies available worldwide for children to 14 days, and no normal ranges. Heparin therapeutic range (represented by Anti-Factor Xa activity of 0.2 - 0.4 U/mL) corresponds to PTT of 56.6 - 109.0 sec. Performed By: #### 1 [id number] #### [facility] [address] [place] [address] INR Coag (PPP) [Relative time] 0.92 {INR} Invalid Interpretation Code [facility] Comment on above: Result Comment: INR results are specifically intended to assess patients stabilized on long-term Anticoagulation therapy suggested INR???s ???Less Intensive Anticoagulation??? 2.0 ??? 3.0 Conventional Range 3.0 ??? 4.5 Performed By: #### 1 [id number] #### [facility] [address] [place] [address] PT Coag (PPP) [Time] 10.3 second(s) Normal 9.4-12.5 [facility] Comment on above: Result Comment: 15 d [...] the same coagulation reagent and instrumentation as [facility]. Currently there are no coagulation studies available worldwide for children to 14 days, and no normal ranges. Performed By: #### 1 [id number] #### [facility] [address] [place] [address] SEROLOGYOrdered By: Gerri Chavez on 07-07-2024 Beta HCG ( test) Ql Negative (07/07/24 6:23 PM) Normal [facility] Man Sero Troponinon 07-07-2024 Troponin HS 10.70 pg/mL Normal 10.10-27.10 [facility] Comment on above: Result Comment: The 95% CI (Confidence Interval) PPV (Positive Predictive Value) for myocardial infarction in females is 38 pg/mL, in males 51 pg/mL. The results should be used in conjunction with clinical conditions of myocardial infarction. (Access High Sensitivity Troponin I Instructions For Use, [place], February 2018) Performed By: #### 2 [id number] #### [facility] [address] [place] [address] U Drug Screenon 07-07-2024 Amphetamines Screen method >1000 ng/mL Ql (U) Negative Normal NEGATIVE [facility] Comment on above: Result Comment: Nega tive Cutoff: <1000 ng/mL Performed By: #### 2 [id number] #### [facility] [address] [place] [address] Barbiturates Screen Ql (U) Negative Normal NEGATIVE [facility] Comment on above: Result Comment: Nega tive Cutoff: <200 ng/mL Performed By: #### 2 [id number] #### [facility] [address] [place] [address] Benzodiazepines Ql (U) Negative Normal NEGATIVE [facility] Comment on above: Result Comment: Nega tive Cutoff: <200 ng/mL Performed By: #### 2 [id number] #### [facility] [address] [place] [address] Cannabinoids Screen Ql (U) Negative Normal NEGATIVE [facility] Comment on above: Result Comment: Nega tive Cutoff: <50 ng/mL Performed By: #### 2 [id number] #### [facility] [address] [place] [address] Cocaine Ql (U) Negative Normal NEGATIVE [facility] Comment on above: Result Comment: Nega tive Cutoff: <300 ng/mL Performed By: #### 2 [id number] #### [facility] [address] [place] [address] Opiates Screen Ql (U) Negative Normal NEGATIVE [facility] Comment on above: Result Comment: Nega tive Cutoff: <300 ng/mL Performed By: #### 2 [id number] #### [facility] [address] [place] [address] Phencyclidine Screen method >25 ng/mL Ql (U) Negative Normal NEGATIVE [facility] Comment on above: Result Comment: Nega tive Cutoff: <25 ng/mL These drug screen results are to be used for medical (i.e., treatment) purposes only. Unconfirmed drug screening results must not be used for non-medical purposes (e.g., employment testing, legal testing). Performed By: #### 2 [id number] #### [facility] [address] [place] [address] U Fentanyl Negative Normal NEGATIVE [facility] Comment on above: Result Comment: Nega tive Cutoff: <5 ng/mL These drug screen results are to be used for medical (i.e., treatment) purposes only. Unconfirmed drug screening results must not be used for non-medical purposes (e.g., employment testing, legal testing). Performed By: #### 2 487315 #### [facility] [address] [place] [address] UA with Cult Rflxon 07-07-20 24 Bacteria Auto Ql (U) 1+ /HPF Abnormal Trace [facility] Comment on above: Performed By: #### 4 [id number] #### [facility] [address] [place] [address] Bilirubin Ql (U) Negative Normal Negative [facility] Comment on above: Performed By: #### 4 [id number] #### [facility] [address] [place] [address] Clarity (U) Ex.Turbid Abnormal Clear [facility] Comment on above: Performed By: #### 4 [id number] #### [facility] [address] [place] [address] Color (U) Light-[place] Abnormal Yellow [facility] Comment on above: Result Comment: Micr oscopic readings are only performed on those samples that meet specific criteria set forth by [facility]. Performed By: #### 4 [id number] #### [facility] [address] [place] [address] Epithelial cells.squamous Auto (Urine sed) [#/Area] >10 Invalid Interpretation Code [facility] Comment on above: Performed By: #### 4 [id number] #### [facility] [address] [place] [address] Glucose Ql (U) 4+ mg/dL Abnormal Negative [facility] Comment on above: Performed By: #### 4 [id number] #### [facility] [address] [place] [address] Hemoglobin Auto test strip (U) [Mass/Vol] 1+ mg/dL Abnormal Negative [facility] Comment on above: Performed By: #### 4 [id number] #### [facility] [address] [place] [address] Ketones Auto test strip Ql (U) Negative Normal Negative [facility] Comment on above: Performed By: #### 4 [id number] #### [facility] [address] [place] [address] Leukocyte esterase Auto test strip Ql (U) 500 Isidoro/uL Abnormal Negative [facility] Comment on above: Performed By: #### 4 [id number] #### [facility] [address] [place] [address] Mucus Auto Ql (U) Negative Normal Negative [facility] Comment on above: Performed By: #### 4 [id number] #### [facility] [address] [place] [address] Nitrite Auto test strip Ql (U) Negative Normal Negative [facility] Comment on above: Performed By: #### 4 [id number] #### [facility] [address] [place] [address] pH (U) 6.5 [pH] Invalid Interpretation Code 5.0-9.0 [facility] Comment on above: Performed By: #### 4 [id number] #### [facility] [address] [place] [address] Protein Ql (U) Trace Abnormal Negative [facility] Comment on above: Performed By: #### 4 [id number] #### [facility] [address] [place] [address] RBC Ql (U) 31-75 Abnormal 0-3 [facility] Comment on above: Performed By: #### 4 [id number] #### [facility] [address] [place] [address] Specific gravity (U) [Rel density] 1.019 Invalid Interpretation Code 1.005-1.030 [facility] Comment on above: Performed By: #### 4 [id number] #### [facility] [address] [place] [address] Urobilinogen (U) [Mass/Vol] Negative Normal Negative [facility] Comment on above: Performed By: #### 4 [id number] #### [facility] [address] [place] [address] WBC Auto (Urine sed) [#/Area] 31-75 Abnormal 0-5 [facility] Comment on above: Performed By: #### 4 [id number] #### [facility] [address] [place] [address] Yeast.budding Computer assisted Ql (U) Trace Abnormal [facility] Comment on above: Performed By: #### 4 [id number] #### [facility] [address] [place] [address] Type of Urine collection method Clean Catch Normal [facility] Comment on above: Performed By: #### 4 [id number] #### [facility] [address] [place] [address] URINALYSISOrdered By: SYSTEM SYSTEM on 07-07-2024 Bacteria Auto Ql (U) 1+ /HPF Invalid Interpretation Code Trace/HPF [facility] UA Auto SS Bilirubin Ql (U) Negative Normal Negativemg/ d L [facility] UA Auto SS Clarity (U) Ex.Turbid *ABN* (07/07/24 7:41 PM) Invalid Interpretation Code Clear [facility] UA Auto SS Color (U) Light-[place] 3 *ABN* (07/07/24 7:41 PM) Invalid Interpretation Code Yellow [facility] UA Auto SS Comment on above: Interpretive Data: M icroscopic readings are only performed on those samples that meet specific criteria set forth by [facility]. Epithelial cells.squamous Auto (Urine sed) [#/Area] [...] PM) Invalid Interpretation Code 5.0 - 9.0 [facility] Auto SS Protein Ql (U) Trace [...] Desc Clean Catch (07/07/24 7:41 PM) Normal [facility] UA Auto SS eGFRon 07-07-2024 eGFR 30 mL/min/1.73 m2 Low >=59 [facility] Comment on above: Performed By: #### 1 [id number] #### [facility] [address] [place] [address] Kobe 04-13-2024 L Specimen: [id number] Received: 04/15/24 Status: SOULyudmila Req Num: [id number] Spec Type: Cytology Subm Dr: Da Phillip DO Tissues: A FNA SLIDES NOPATH (RT THYR) B FNA SLIDES NOPATH (THY ISTHM) Procedures: Cyto Int and Re/2, PAPSTN/22 Age/ Patient Sex Location Account Attending Physician Virgen Gonzales 68/F [place] [id number] Da Phillip DO SPEC NUM: [id number] RECD: 04/15/24 STATUS: SOULyudmila REQ NUM: [id number] AMY: 04/13/24-[address]: Da Phillip DO ENTERED: 04/15/[address]: SPEC TYPE: Cytology DEPT: CNG ENTERED BY: [id number] RECV BY: [id number] ORDERED: Cyto Int and Re/2, PAPSTN ORDERED: Cyto Int and Re/2, PAPSTN22 Supplemental Report Addendum 2 Entered: 05/11/24-1013 Supplemental to correct the specimen type of Part B specimen, without a change of initial diagnosis Corrected specimen type B, Isthmus thyroid nodule, FNA cytology: Addendum Signed (signature on file) Noemy De Los Santos MD 05/11/24 1013 ---- Addendum 1 Entered: 05/11/24-100 Supplemental for findings of [facility] GENOMIC SEQUENCING ENTERPRISE ARCHITECT: -Ensemble Sales Promotion Coordinator -Benign (risk of malignancy 4%) ---- Specimen: [id number] Received: 04/15/24-1243 Status: ANIRUDH Navarro Num: [id number] Spec Type: Cytology Subm Dr: Da Phillip,DO Tissues: A FNA SLIDES NOPATH (RT THYR) B FNA SLIDES NOPATH (THY ISTHM) Procedures: Cyto Int and Re/2, PAPSTN ---- Patient: BinduVirgen Badillo [id number] (Continued) ---- Specimen: [id number] Received: 04/15/24 (Continued) Supplemental Report (Continued) Signed (signature on file) Noemy De Los Santos MD 04/21/24 1010 ---- Specimen: [id number] Received: 04/15/24 Status: ANIRUDH Navarro Num: [id number] Spec Type: Cytology Subm Dr: Da Phillip,DO Tissues: A FNA SLIDES NOPATH (RT THYR) B FNA SLIDES NOPATH (THY ISTHM) Procedures: Cyto Int and Re/2, PAPSTN/22 ---- Patient: Virgen Gonzales [id number] (Continued) ---- Specimen: [id number] Received: 04/15/24-1244 (Continued) Supplemental Report (Continued) -Xpression [place] -N/A -Other Classifiers -BRAF: Negative -RET/PTC1: Not [...] atypia of undetermined significance, the category 3 Orrington system -Pending additional molecular triage study to follow B, instruments thyroid nodule, FNA cytology: -A few follicular cells are present in combined smears, including occasional small and/or loose follicular groups, adequately for assessment, often showing small round to ovoid nuclei, consistent with the category 2 Orrington system: Benign ---- Specimen: [id number] Received: 04/15/24 Status: ROSALINALyudmila Navarro Num: [id number] Spec Type: Cytology Subm Dr: Da Phillip DO Tissues: A FNA SLIDES NOPATH (RT THYR) B FNA SLIDES NOPATH (THY ISTHM) Procedures: Cyto Int and Re/2, PAPSTN/22 ---- Patient: Virgen Gonzales [id number] (Continued) ---- Specimen: [id number] Received: 04/15/24 (Continued) Signed (signature on file) Noemy De Los Santos MD 04/21/24 1010 ---- Specimen: [id number] Received: 04/15/24 Status: ANIRUDH Navarro Num: [id number] Spec Type: Cytology Subm Dr: Da PhillipDO Tissues: A FNA SLIDES NOPATH (RT THYR) B FNA SLIDES N (more content not included)... Normal [facility] Thyrotropin [Units/volume] i n Serum or PlasmaOrdered By: Da Phillip on 03-26-2024 TSH Qn 1.31 m[IU]/L Normal 0.45-5.33 [facility] Comment on above: Result Comment: PERF ORMED BY: [place] [address] PATHOLOGIST POULTRY FARMER MEAT JENNIFER HERNANDEZ M.D. Performed By: #### T 3T, T4T, TSH3 #### [facility] [address] [place] [address] Thyroxine (T4) [Mass/volume] in Serum or PlasmaOrdered By: Da Phillip on 03-26-2024 T4 [Mass/Vol] 9.37 ug/dL Normal 5.39-11.82 [facility] Comment on above: Performed By: #### T 3T, T4T, TSH3 #### [facility] [address] [place] [address] [place] Triiodothyronine (T3) Totalo n 03-26-2024 Triiodothyronine (T3) Total 0.90 ng/mL Normal 0.87-1.78 [facility] Comment on above: Performed By: #### T 3T, T4T, TSH3 #### [facility] [address] [place] [address] [place] Triiodothyronine (T3) [Mass/ volume] in Serum or PlasmaOrdered By: Da Phillip on 03-26-2024 T3 [Mass/Vol] 0.90 ng/mL 0.87-1.78 [facility] Kobe 02-14-2024 L Specimen: [id number] Received: 02/17/243 Status: SOUT Req Num: [id number] Spec Type: Cytology Subm Dr: Aggie Davis CNP Tissues: A FNA SLIDES NOPATH (RT THYROID NOD) B FNA SLIDES NOPATH (ISTHMUS THY) Procedures: Cyto Int and Re/2, PAPSTN/10 Age/ Patient Sex Location Account Attending Physician Virgen Gonzales 68/F [place] [id number] Aggie Davis CNP SPEC NUM: [id number] RECD: 02/17/24 STATUS: ANIRUDH REQ NUM: [id number] AMY: 02/14/24- DR: Aggie Davis CNP ENTERED: 02/17/[address]: Dina,Lab Becky Avilez MD SPEC TYPE: Cytology DEPT: POP NC ENTERED BY: [id number] RECV BY: [id number] ORDERED: Cyto Int and Re/2, PAPSTN/10 ORDERED: Cyto Int and Re/2, PAPSTN/10 Pathological Diagnosis A. Right thyroid,?fine needle aspiration:? Suspicious for follicular neoplasm, Atypical Follicular Cells With Abundant Colloid. Orrington Category IV B. Isthmus, fine needle aspiration:? Unsatisfactory for evaluation. Too few epithelial cells. Orrington?Category?I Clinical Information Thyroid Nodules Gross Description A. (RIGHT) Received fixed in Cytolyt is <1 ml very pale pink clear fluid for cytology said to have been obtained as right thyroid nodule-mid . ThinPrep preparations are prepared for microscopic examination. Also received are 4 spray fixed smeared slides to be stained pap aa Veracyte vial stored at -20 for microscopic examination.(GA/nh) B. (ISTHMUS) Received fixed in Cytolyt is (1 ml pink clear fluid for cytology said to have ---- Specimen: Received: 02/17/24 Status: ANIRUDH Req Num: [id number] Spec Type: Cytology Subm Dr: Aggie Davis CNP Tissues: A FNA SLIDES NOPATH (RT THYROID NOD) B FNA SLIDES NOPATH (ISTHMUS THY) Procedures: Cyto Int and Re/2, PAPSTN/10 ---- Patient: Virgen Gonzales [id number] (Continued) ---- Specimen: [id number] Received: 02/17/24 (Continued) Gross Description (Continued) Signed (signature on file) Nishant Morley MD 02/19/24 1428 ---- Specimen: [id number] Received: 02/17/24 Status: ANIRUDH Navarro Num: [id number] Spec Type: Cytology Subm Dr: Aggie Davis, PROJECT RESERVOIR ENGINEER Tissues: A FNA SLIDES NOPATH (RT THYROID NOD) B FNA SLIDES NOPATH (ISTHMUS THY) Procedures: Cyto Int and Re/2, PAPSTN/10 ---- Patient: Virgen Gonzales [id number] (Continued) ---- Specimen: [id number] Received: 02/17/24 (Continued) Gross Description (Continued) been obtained as Isthmus thyroid nodule. ThinPrep preparations are prepared for microscopic examination. Also received are 4 spray fixed smeared smeared slides to be stained pap and a Veracyte vial stored at -20 for microscopic examination.(GA/or) CPT Codes 27306z0 ---- ---- Specimen: [id number] Received: 02/17/24 Status: ANIRUDH Navarro Num: [id number] Spec Type: Cytology Subm Dr: Aggie Davis CNP Tissues: A FNA SLIDES NOPATH (RT THYROID NOD) B FNA SLIDES NOPATH (ISTHMUS THY) Procedures: Cyto Int and Re/2, PAPSTN/10 ---- Patient: Virgen Gonzales [id number] (Continued) ---- Signed (signature on file) Nishant Morley MD 02/19/24 1428 Normal [facility] Nonvisit Note - PTon 024 Nonvisit Note - PT Pt cancelled reassessment due to being sick. JANICE Normal [facility] Nonvisit Note - PTon 024 Nonvisit Note - PT Pt no showed for 171 5 appointment. Normal [facility] Nonvisit Note - PTon 024 Nonvisit Note - PT Pt called to cancel as she is ill. [facility] Consent for Treatmenton 10-28 Consent for Treatment [id number]#1.0 0TIFF [facility] PT - Assessmentson PT - Assessments [id number] 22 [id number]#1.0 0TIFF [facility] PT - Consentson 11-19-2023 PT - Consents [id number] 22 [id number]#1.0 0TIFF [facility] Insurance Correspondenceon 0 11-12-2023 Insurance Correspondence [id number]#1. 00TIFF [facility] PT - Orderson 11-11-2023 PT - Orders [id number] 01 [id number]#1. 00TIFF Normal [facility] L Inj/Asp: L kneeon 08-27-19 24 BEN Delong T 09/02/2023 8:37 AM L Inj/Asp: L knee on 08/27/2023 3:43 PM Indications: pain Details: 21 G needle, lateral approach Medications: 16 mg hylan 16 MG/2ML Consent was given by the patient. [facility] PROF 14(COMP METB)on 023 Albumin [Mass/Vol] 3.2 g/dL Critically low 3.4-5.0 [facility] Comment on above: Performed By: #### T SH, CMP, T7, LIPID #### [facility] [address] [place] [address] Dr. Danay De Los Santos Albumin/Globulin [Mass ratio] 1.0 {ratio} Normal [facility] Comment on above: Performed By: #### T SH, CMP, T7, LIPID #### [facility] [address] [address] [address] Danay De Los Santos ALP [Catalytic activity/Vol] 92 U/L Normal 46-116 [facility] Comment on above: Performed By: #### T SH, CMP, T7, LIPID #### [facility] [address] [address] [address] Danay De Los Santos ALT [Catalytic activity/Vol] 21 U/L Normal 14-59 [facility] Comment on above: Performed By: #### T SH, CMP, T7, LIPID #### [facility] [address] [address] [address] Danay De Los Santos Anion gap [Moles/Vol] 13.2 mmol/L Normal [facility] Comment on above: Performed By: #### T SH, CMP, T7, LIPID #### [facility] [address] [place] [address] Dr. Danay De Los Santos AST [Catalytic activity/Vol] 14 U/L Critically low 15-37 [facility] Comment on above: Performed By: #### T SH, CMP, T7, LIPID #### [facility] [address] [place] [address] Dr. Danay De Los Santos Bilirubin [Mass/Vol] 0.2 mg/dL Normal 0.2-1.0 [facility] Comment on above: Performed By: #### T SH, CMP, T7, LIPID #### [facility] [address] [place] [address] Dr. Danay De Los Santos Calcium [Mass/Vol] 8.6 mg/dL Normal 8.5-10.1 [facility] Comment on above: Performed By: #### T SH, CMP, T7, LIPID #### [facility] [address] [place] [address] Dr. Danay De Los Santos Chloride [Moles/Vol] 105 mmol/L Normal 98-107 [facility] Comment on above: Performed By: #### T SH, CMP, T7, LIPID #### [facility] [address] [place] [address] Dr. Danay De Los Santos CO2 [Moles/Vol] 27.9 mmol/L Normal 21.0-32.0 [facility] Comment on above: Performed By: #### T SH, CMP, T7, LIPID #### [facility] [address] [place] [address] Dr. Danay De Los Santos Creatinine [Mass/Vol] 1.47 mg/dL Critically high 0.55-1.02 [facility] Comment on above: Performed By: #### T SH, CMP, T7, LIPID #### [facility] [address] [place] [address] Dr. Danay De Los Santos EGFR-AF DANISH 43 mL/min/1.73m2 Critically low >=60 [facility] Comment on above: Performed By: #### T SH, CMP, T7, LIPID #### [facility] [address] [place] [address] Dr. Danay De Los Santos EGFR-NON AF DANISH 35 mL/min/1.73m2 Critically low >=60 [facility] Comment on above: Performed By: #### T SH, CMP, T7, LIPID #### [facility] [address] [place] [address] Dr. Danay De Los Santos Globulin (S) [Mass/Vol] 3.3 g/dL Normal [facility] Comment on above: Performed By: #### T SH, CMP, T7, LIPID #### [facility] [address] [address] [address] Danay De Los Santos Glucose [Mass/Vol] 145 mg/dL Critically high 74-106 [facility] Comment on above: Performed By: #### T SH, CMP, T7, LIPID #### [facility] [address] [address] [address] Danay De Los Santos Potassium [Moles/Vol] 4.1 mmol/L Normal 3.5-5.1 [facility] Comment on above: Performed By: #### T SH, CMP, T7, LIPID #### [facility] [address] [address] [address] Danay De Los Santos Protein [Mass/Vol] 6.5 g/dL Normal 6.4-8.2 [facility] Comment on above: Performed By: #### T SH, CMP, T7, LIPID #### [facility] [address] [address] [address] Danay De Los Santos Sodium [Moles/Vol] 142 mmol/L Normal 136-145 [facility] Comment on above: Performed By: #### T SH, CMP, T7, LIPID #### [facility] [address] [address] [address] Danay De Los Santos Urea nitrogen [Mass/Vol] 22.0 mg/dL Critically high 7.0-18.0 [facility] Comment on above: Performed By: #### T SH, CMP, T7, LIPID #### [facility] [address] [address] [address] Danay De Los Santos Urea nitrogen/Creatinine [Mass ratio] 15.0 mg/mg Normal [facility] Comment on above: Performed By: #### T SH, CMP, T7, LIPID #### [facility] [address] [address] [address] Danay De Los Santos PROF CHEM 8 (BAS METB)on Anion gap [Moles/Vol] 12.1 mmol/L Normal [facility] Comment on above: Performed By: #### B MP #### [facility] [address] [address] [address] Danay De Los Santos Calcium [Mass/Vol] 8.8 mg/dL Normal 8.5-10.1 [facility] Comment on above: Performed By: #### B MP #### [facility] [address] [address] [address] Danay De Los Santos Chloride [Moles/Vol] 103 mmol/L Normal 98-107 [facility] Comment on above: Performed By: #### B MP #### [facility] [address] [place] [address] Dr. Danay De Los Santos CO2 [Moles/Vol] 28.6 mmol/L Normal 21.0-32.0 [facility] Comment on above: Performed By: #### B MP #### [facility] [address] [place] [address] Dr. Danay De Los Santos Creatinine [Mass/Vol] 2.08 mg/dL Critically high 0.55-1.02 [facility] Comment on above: Performed By: #### B MP #### [facility] [address] [place] [address] Dr. Danay De Los Santos EGFR-AF DANISH 29 mL/min/1.73m2 Critically low >=60 [facility] Comment on above: Performed By: #### B MP #### [facility] [address] [place] [address] Dr. Danay De Los Santos EGFR-NON AF DANISH 24 mL/min/1.73m2 Critically low >=60 [facility] Comment on above: Performed By: #### B MP #### [facility] [address] [address] [address] Danay De Los Santos Glucose [Mass/Vol] 259 mg/dL Critically high 74-106 [facility] Comment on above: Performed By: #### B MP #### [facility] [address] [address] [address] Danay De Los Santos Potassium [Moles/Vol] 4.7 mmol/L Normal 3.5-5.1 [facility] Comment on above: Performed By: #### B MP #### [facility] [address] [place] [address] Dr. Danay De Los Santos Sodium [Moles/Vol] 139 mmol/L Normal 136-145 [facility] Comment on above: Performed By: #### B MP #### [facility] [address] [place] [address] Dr. Danay De Los Santos Urea nitrogen [Mass/Vol] 27.0 mg/dL Critically high 7.0-18.0 [facility] Comment on above: Performed By: #### B MP #### [facility] [address] [place] [address] Dr. Danay De Los Santos Urea nitrogen/Creatinine [Mass ratio] 13.0 mg/mg Normal [facility] Comment on above: Performed By: #### B MP #### [facility] [address] [place] [address] Dr. Danay De Los Santos INSULINon 12-17-2022 Insulin 11.1 uIU/mL Normal 2.6-24.9 [facility] Comment on above: Performed By: #### I NSULIN #### [facility] [address] [place] [address] Dr. Danay De Los Santos BNPon 12-15-2022 Natriuretic peptide B (Bld) [Mass/Vol] 110.0 pg/mL Normal <=900.0 [facility] Comment on above: Performed By: #### T SH, CMP, T7, LIPID #### [facility] [address] [place] [address] Dr. Danay De Lo sSantos CBC AUTO DIFFon 12-15-2022 BASO # 0.1 103/ul Normal 0.0-0.1 [facility] Comment on above: Performed By: #### T SH, CMP, T7, LIPID #### [facility] [address] [place] [address] Dr. Danay De Los Santos Basophils/100 WBC (Bld) 0.5 % Normal 0.2-2.0 [facility] Comment on above: Performed By: #### T SH, CMP, T7, LIPID #### [facility] [address] [place] [address] Dr. Danay De Los Santos EO # 0.7 103/ul Normal 0.0-0.7 [facility] Comment on above: Performed By: #### T SH, CMP, T7, LIPID #### [facility] [address] [place] [address] Dr. Danay De Los Santos Eosinophils/100 WBC (Bld) 6.0 % Normal 0.9-7.0 [facility] Comment on above: Performed By: #### T SH, CMP, T7, LIPID #### [facility] [address] [place] [address] Dr. Danay De Los Santos Erythrocyte distribution width (RBC) [Ratio] 15.6 % Critically high 11.0-15.0 [facility] Comment on above: Performed By: #### T SH, CMP, T7, LIPID #### [facility] [address] [place] [address] Dr. Danay De Los Santos Hematocrit (Bld) [Volume fraction] 40.2 % Normal 36.0-48.0 [facility] Comment on above: Performed By: #### T SH, CMP, T7, LIPID #### [facility] [address] [place] [address] Dr. Danay De Los Santos Hemoglobin (Bld) [Mass/Vol] 12.6 g/dL Normal 12.0-16.0 [facility] Comment on above: Performed By: #### T SH, CMP, T7, LIPID #### [facility] [address] [place] [address] Dr. Danay De Los Santos IG # 0.06 10e3/ul Critically high 0.00-0.03 [facility] Comment on above: Performed By: #### T SH, CMP, T7, LIPID #### [facility] [address] [place] [address] Dr. Danay De Los Santos IG % 0.5 % Normal 0.0-0.5 [facility] Comment on above: Performed By: #### T SH, CMP, T7, LIPID #### [facility] [address] [place] [address] Dr. Danay De Los Santos LYMPH # 3.2 103/ul Normal 1.2-3.8 [facility] Comment on above: Performed By: #### T SH, CMP, T7, LIPID #### [facility] [address] [place] [address] Dr. Danay De Los Santos Lymphocytes/100 WBC (Bld) 28.9 % Normal 20.5-60.0 [facility] Comment on above: Performed By: #### T SH, CMP, T7, LIPID #### [facility] [address] [place] [address] Dr. Danay De Los Santos MANUAL DIFF REQ NO Normal [facility] Comment on above: Performed By: #### T SH, CMP, T7, LIPID #### [facility] [address] [place] [address] Dr. Danay De Los Santos MCH (RBC) [Entitic mass] 27.3 pg Normal 26.7-34.0 [facility] Comment on above: Performed By: #### T SH, CMP, T7, LIPID #### [facility] [address] [place] [address] Dr. Danay De Los Santos MCHC (RBC) [Mass/Vol] 31.3 g/dL Normal 29.9-35.2 [facility] Comment on above: Performed By: #### T SH, CMP, T7, LIPID #### [facility] [address] [place] [address] Dr. Danay De Los Santos MCV (RBC) [Entitic vol] 87.2 fL Normal 81.0-99.0 [facility] Comment on above: Performed By: #### T SH, CMP, T7, LIPID #### [facility] [address] [place] [address] Dr. Danay De Los Santos MONO # 0.6 103/ul Normal 0.3-0.8 [facility] Comment on above: Performed By: #### T SH, CMP, T7, LIPID #### [facility] [address] [place] [address] Dr. Danay De Los Santos Monocytes/100 WBC (Bld) 5.7 % Normal 1.7-12.0 [facility] Comment on above: Performed By: #### T SH, CMP, T7, LIPID #### [facility] [address] [place] [address] Dr. Danay De Los Santos NEUT # 6.4 103/ul Normal 1.4-6.5 [facility] Comment on above: Performed By: #### T SH, CMP, T7, LIPID #### [facility] [address] [place] [address] Dr. Danay De Los Santos Neutrophils/100 WBC (Bld) 58.4 % Normal 43.0-75.0 [facility] Comment on above: Performed By: #### T SH, CMP, T7, LIPID #### [facility] [address] [place] [address] Dr. Danay De Los Santos Platelet mean volume (Bld) [Entitic vol] 10.6 fL Normal 9.5-13.5 [facility] Comment on above: Performed By: #### T SH, CMP, T7, LIPID #### [facility] [address] [place] [address] Dr. Danay De Los Santos PLT 251 103/ul Normal 150-450 [facility] Comment on above: Performed By: #### T SH, CMP, T7, LIPID #### [facility] [address] [place] [address] Dr. Danay De Los Santos RBC 4.61 106/ul Normal 4.20-5.40 [facility] Comment on above: Performed By: #### T SH, CMP, T7, LIPID #### [facility] [address] [place] [address] Dr. Danay De Los Santos WBC 10.9 103/ul Normal 4.0-11.0 [facility] Comment on above: Performed By: #### T SH, CMP, T7, LIPID #### [facility] [address] [place] [address] Dr. Danay De Los Santos FREE THYROXINE INDEX T7on FTI 2.87 Normal 1.30-4.50 [facility] Comment on above: Performed By: #### T SH, CMP, T7, LIPID #### [facility] [address] [place] [address] Dr. Danay De Los Santos T3U 35.0 % Normal 30.0-39.0 [facility] Comment on above: Performed By: #### T SH, CMP, T7, LIPID #### [facility] [address] [address] [address] Danay De Los Santos T4 [Mass/Vol] 8.20 ug/dL Normal 4.80-13.90 [facility] Comment on above: Performed By: #### T SH, CMP, T7, LIPID #### [facility] [address] [place] [address] Dr. Danay De Los Santos GLYCOHEMOGLOBIN A1Con 2022 ADA RECOMMENDATION SEE BELOW Normal [facility] Comment on above: Result Comment: ADA RECOMMENDED LIMIT 4.0 - 6.0 ADA THERAPEUTIC TARGET < 7.0 ACTION SUGGESTED > 7.0 Performed By: #### A 1C #### [facility] [address] [place] [address] Dr. Danay De Los Santos Glucose [Mass/Vol] 203 mg/dL Normal [facility] Comment on above: Performed By: #### A 1C #### [facility] [address] [place] [address] Dr. Danay De Los Santos HbA1c (Bld) [Mass fraction] 8.7 % Critically high 4.5-6.2 [facility] Comment on above: Performed By: #### A 1C #### [facility] [address] [place] [address] Dr. Danay De Los Santos IRONon 12-15-2022 Iron [Mass/Vol] 39.0 ug/dL Critically low 50.0-170.0 [facility] Comment on above: Performed By: #### T SH, CMP, T7, LIPID #### [facility] [address] [place] [address] Dr. Danay De Los Santos LIPID PROFILEon 12-15-2022 CHOL-HDL RATIO NORM SEE BELOW Normal [facility] Comment on above: Result Comment: 3.3 - 4.4 LOW RISK 4.4 - 7.1 AVERAGE RISK 7.1 - 11.0 MODERATE RISK >11.0 HIGH RISK Performed By: #### T SH, CMP, T7, LIPID #### [facility] [address] [address] [address] Danay De Los Santos Cholesterol [Mass/Vol] 123 mg/dL Normal <=200 [facility] Comment on above: Performed By: #### T SH, CMP, T7, LIPID #### [facility] [address] [address] [address] Danay De Los Santos Cholesterol in HDL [Mass/Vol] 40 mg/dL Normal 40-60 [facility] Comment on above: Performed By: #### T SH, CMP, T7, LIPID #### [facility] [address] [address] [address] Danay De Los Santos Cholesterol in LDL [Mass/Vol] 70.4 mg/dL Normal [facility] Comment on above: Performed By: #### T SH, CMP, T7, LIPID #### [facility] [address] [place] [address] Dr. Danay De Los Santos Cholesterol.total/Cho lesterol in HDL [Mass ratio] 3.1 {ratio} Normal [facility] Comment on above: Performed By: #### T SH, CMP, T7, LIPID #### [facility] [address] [address] [address] Danay De Los Santos HDL NORMAL > or = 60 mg/dl - LO W CARDIOVASCULAR RISK <40 mg/dl - HIGH CARDIOVASCULAR RISK Normal [facility] Comment on above: Performed By: #### T SH, CMP, T7, LIPID #### [facility] [address] [address] [address] Danay De Los Santos LDL CALC NORMAL SEE BELOW Normal [facility] Comment on above: Result Comment: <100 mg/dl OPTIMAL 100 - 129 mg/dl NEAR OR ABOVE OPTIMAL 130 - 159 mg/dl BORDERLINE HIGH 160 - 189 mg/dl HIGH >190 mg/dl VERY HIGH Performed By: #### T SH, CMP, T7, LIPID #### [facility] [address] [address] [address] Danay De Los Santos Triglyceride [Mass/Vol] 63 mg/dL Normal <=150 [facility] Comment on above: Performed By: #### T SH, CMP, T7, LIPID #### [facility] [address] [address] [address] Danay De Los Santos VLDL CALC 12.6 mg/dL Normal [facility] Comment on above: Performed By: #### T SH, CMP, T7, LIPID #### [facility] [address] [address] [address] Danay De Los Santos PROF 14(COMP METB)on 023 Albumin [Mass/Vol] 3.3 g/dL Critically low 3.4-5.0 [facility] Comment on above: Performed By: #### T SH, CMP, T7, LIPID #### [facility] [address] [address] [address] Danay De Los Santos Albumin/Globulin [Mass ratio] 1.0 {ratio} Normal [facility] Comment on above: Performed By: #### T SH, CMP, T7, LIPID #### [facility] [address] [address] [address] Danay De Los Santos ALP [Catalytic activity/Vol] 94 U/L Normal 46-116 [facility] Comment on above: Performed By: #### T SH, CMP, T7, LIPID #### [facility] [address] [address] [address] Danay De Los Santos ALT [Catalytic activity/Vol] 17 U/L Normal 14-59 [facility] Comment on above: Performed By: #### T SH, CMP, T7, LIPID #### [facility] [address] [address] [address] Danay De Los Santos Anion gap [Moles/Vol] 14.3 mmol/L Normal [facility] Comment on above: Performed By: #### T SH, CMP, T7, LIPID #### [facility] [address] [address] [address] Danay De Los Santos AST [Catalytic activity/Vol] 11 U/L Critically low 15-37 [facility] Comment on above: Performed By: #### T SH, CMP, T7, LIPID #### [facility] [address] [address] [address] Danay De Los Santos Bilirubin [Mass/Vol] 0.3 mg/dL Normal 0.2-1.0 [facility] Comment on above: Performed By: #### T SH, CMP, T7, LIPID #### [facility] [address] [address] [address] Danay De Los Santos Calcium [Mass/Vol] 9.1 mg/dL Normal 8.5-10.1 [facility] Comment on above: Performed By: #### T SH, CMP, T7, LIPID #### [facility] [address] [address] [address] Danay De Los Santos Chloride [Moles/Vol] 105 mmol/L Normal 98-107 [facility] Comment on above: Performed By: #### T SH, CMP, T7, LIPID #### [facility] [address] [address] [address] Danay De Los Santos CO2 [Moles/Vol] 29.3 mmol/L Normal 21.0-32.0 [facility] Comment on above: Performed By: #### T SH, CMP, T7, LIPID #### [facility] [address] [place] [address] Dr. Danay De Los Santos Creatinine [Mass/Vol] 1.53 mg/dL Critically high 0.55-1.02 [facility] Comment on above: Performed By: #### T SH, CMP, T7, LIPID #### [facility] [address] [place] [address] Dr. Danay De Los Santos EGFR-AF DANISH 41 mL/min/1.73m2 Critically low >=60 [facility] Comment on above: Performed By: #### T SH, CMP, T7, LIPID #### [facility] [address] [place] [address] Dr. Danay D eLos Santos EGFR-NON AF DANISH 34 mL/min/1.73m2 Critically low >=60 [facility] Comment on above: Performed By: #### T SH, CMP, T7, LIPID #### [facility] [address] [address] [address] Danay De Los Santos Globulin (S) [Mass/Vol] 3.4 g/dL Normal [facility] Comment on above: Performed By: #### T SH, CMP, T7, LIPID #### [facility] [address] [place] [address] Dr. Danay De Los Santos Glucose [Mass/Vol] 192 mg/dL Critically high 74-106 [facility] Comment on above: Performed By: #### T SH, CMP, T7, LIPID #### [facility] [address] [place] [address] Dr. Danay De Los Santos Potassium [Moles/Vol] 4.6 mmol/L Normal 3.5-5.1 [facility] Comment on above: Performed By: #### T SH, CMP, T7, LIPID #### [facility] [address] [place] [address] Dr. Danay De Los Santos Protein [Mass/Vol] 6.7 g/dL Normal 6.4-8.2 [facility] Comment on above: Performed By: #### T SH, CMP, T7, LIPID #### [facility] [address] [place] [address] Dr. Danay De Los Santos Sodium [Moles/Vol] 144 mmol/L Normal 136-145 [facility] Comment on above: Performed By: #### T SH, CMP, T7, LIPID #### [facility] [address] [place] [address] Dr. Danay De Los Santos Urea nitrogen [Mass/Vol] 25.0 mg/dL Critically high 7.0-18.0 [facility] Comment on above: Performed By: #### T SH, CMP, T7, LIPID #### [facility] [address] [place] [address] Dr. Danay De Los Santos Urea nitrogen/Creatinine [Mass ratio] 16.3 mg/mg Normal [facility] Comment on above: Performed By: #### T SH, CMP, T7, LIPID #### [facility] [address] [place] [address] Dr. Danay De Los Santos TSHon 12-15-2022 TSH 2.181 uIU/mL Normal 0.358-3.740 [facility] Comment on above: Performed By: #### T SH, CMP, T7, LIPID #### [facility] [address] [place] [address] Dr. Danay De Los Santos VITAMIN D 25 OHon 12-15-2022 VIT D 25-OH 32.9 ng/mL Normal [facility] Comment on above: Performed By: #### T SH, CMP, T7, LIPID #### [facility] [address] [place], [place] [address] Dr. Danay De Los Santos VIT D RANGES SEE BELOW Normal [facility] Comment on above: Result Comment: <20 ng/mL Vit D deficient 20 - <30 ng/mL Vit D insufficient 30 - 100 ng/mL Vit D sufficient >100 ng/mL Potential Toxicity Performed By: #### T SH, CMP, T7, LIPID #### [facility] [address] [place], [place] [address] Dr. Danay De Los Santos US ROEL [...] MORIAH MORRISON Date: 2022-12-01 12:54 Normal [facility] XR Hand Complete Left*on XR Hand Complete Left* CLINICAL HISTORY: Fall with left hand stiffness. COMPARISON: None. RESULT: No distinct acute fracture. No dislocation. Underlying decreased bone mineral density. Mild to moderate scattered degenerative changes. Soft tissue edema. IMPRESSION: No acute osseous findings radiographically. Report reported and signed by Home Lockwood on 08/24/2022 1108 Normal [facility] XR Spine Cervical Complete*o n 08-24-2022 XR [...] by Home Lockwood on 08/24/2022 1109 Normal [facility] XR HAND RIMA MIN 3Von 023 XR HAND RIMA MIN 3V EXAM: XR HAND RIMA PR N 3V HISTORY: Pain following fall COMPARISON: None. TECHNIQUE: 3 views of each hand FINDINGS: No visualized fracture, dislocation, subluxation or osseous lesion. Age-related joint space changes. No gross visualized soft tissue edema. IMPRESSION: No visualized abnormality Electronically authenticated by: BRIANNA KU Date: 2022-08-06 20:28 Normal [facility] XR HIP RT 2 3V W [...] BRIANNA KU Date: 2022-08-06 20:29 Normal [facility] XR SHOULDER RT 2V or >on [...] BRIANNA KU Date: 2022-08-06 20:21 Normal [facility] XR Foot Complete Left*on XR Foot Complete Left* COMPARISON: None available HISTORY: Second and third digit pain after a fall TECHNIQUE: AP, lateral and oblique views of the foot obtained. FINDINGS: No acute fracture or dislocation. Joint spaces are preserved. Soft tissues are within normal limits. IMPRESSION: No acute osseous abnormality. Report reported and signed by Drew Looney on 08/04/2022 1044 Normal [facility] XR Knee Complete Left*on XR Knee Complete [...] by Drew Looney on 08/04/2022 1046 Normal [facility] MRI BRAIN WO CONon 2 MRI BRAIN WO CON EXAMINATION: MRI BRA IN WO CON, 07/02/2022 1:55 PM EST HISTORY: [...] BRIANNA GREEN Date: 2022-07-02 14:48 Normal [facility] INSULINon 05-28-2022 Insulin 13.4 uIU/mL Normal 2.6-24.9 [facility] Comment on above: Performed By: #### I NSULIN #### [facility] [address] [address] [address] Danay De Los Santos CBC AUTO DIFFon 05-26-2022 BASO # 0.1 103/ul Normal 0.0-0.1 [facility] Comment on above: Performed By: #### C BC #### [facility] [address] [place], [place] [address] Dr. Danay De Los Santos Basophils/100 WBC (Bld) 0.8 % Normal 0.2-2.0 [facility] Comment on above: Performed By: #### C BC #### [facility] [address] [place] [address] Dr. Danay De Los Santos EO # 0.6 103/ul Normal 0.0-0.7 [facility] Comment on above: Performed By: #### C BC #### [facility] [address] [place] [address] Dr. Danay De Los Santos Eosinophils/100 WBC (Bld) 5.1 % Normal 0.9-7.0 [facility] Comment on above: Performed By: #### C BC #### [facility] [address] [place] [address] Dr. Danay De Los Santos Erythrocyte distribution width (RBC) [Ratio] 14.7 % Normal 11.0-15.0 [facility] Comment on above: Performed By: #### C BC #### [facility] [address] [place] [address] Dr. Danay De Los Santos Hematocrit (Bld) [Volume fraction] 37.8 % Normal 36.0-48.0 [facility] Comment on above: Performed By: #### C BC #### [facility] [address] [place] [address] Dr. Danay De Los Santos Hemoglobin (Bld) [Mass/Vol] 12.3 g/dL Normal 12.0-16.0 [facility] Comment on above: Performed By: #### C BC #### [facility] [address] [place] [address] Dr. Danay De Los Santos IG # 0.05 10e3/ul Critically high 0.00-0.03 [facility] Comment on above: Performed By: #### C BC #### [facility] [address] [place] [address] Dr. Danay De Los Santos IG % 0.5 % Normal 0.0-0.5 [facility] Comment on above: Performed By: #### C BC #### [facility] [address] [place] [address] Dr. Danay De Los Santos LYMPH # 2.1 103/ul Normal 1.2-3.8 [facility] Comment on above: Performed By: #### C BC #### [facility] [address] [place] [address] Dr. Danay De Los Santos Lymphocytes/100 WBC (Bld) 19.1 % Critically low 20.5-60.0 [facility] Comment on above: Performed By: #### C BC #### [facility] [address] [place] [address] Dr. Danay De Los Santos MANUAL DIFF REQ NO Normal [facility] Comment on above: Performed By: #### C BC #### [facility] [address] [place] [address] Dr. Danay De Los Santos MCH (RBC) [Entitic mass] 30.8 pg Normal 26.7-34.0 [facility] Comment on above: Performed By: #### C BC #### [facility] [address] [place] [address] Dr. Danay De Los Santos MCHC (RBC) [Mass/Vol] 32.5 g/dL Normal 29.9-35.2 [facility] Comment on above: Performed By: #### C BC #### [facility] [address] [place] [address] Dr. Danay De Los Santos MCV (RBC) [Entitic vol] 94.5 fL Normal 81.0-99.0 [facility] Comment on above: Performed By: #### C BC #### [facility] [address] [place] [address] Dr. Danay De Los Santos MONO # 0.6 103/ul Normal 0.3-0.8 [facility] Comment on above: Performed By: #### C BC #### [facility] [address] [place] [address] Dr. Danay De Los Santos Monocytes/100 WBC (Bld) 5.1 % Normal 1.7-12.0 [facility] Comment on above: Performed By: #### C BC #### [facility] [address] [place] [address] Dr. Danay De Los Santos NEUT # 7.5 103/ul Critically high 1.4-6.5 [facility] Comment on above: Performed By: #### C BC #### [facility] [address] [address] [address] Danay De Los Santos Neutrophils/100 WBC (Bld) 69.4 % Normal 43.0-75.0 [facility] Comment on above: Performed By: #### C BC #### [facility] [address] [address] [address] Danay De Los Santos Platelet mean volume (Bld) [Entitic vol] 10.9 fL Normal 9.5-13.5 [facility] Comment on above: Performed By: #### C BC #### [facility] [address] [address] [address] Danay De Los Santos PLT 235 103/ul Normal 150-450 [facility] Comment on above: Performed By: #### C BC #### [facility] [address] [place] [address] Dr. Danay De Los Santos RBC 4.00 106/ul Critically low 4.20-5.40 [facility] Comment on above: Performed By: #### C BC #### [facility] [address] [place] [address] Dr. Danay De Los Santos WBC 10.8 103/ul Normal 4.0-11.0 [facility] Comment on above: Performed By: #### C BC #### [facility] [address] [place] [address] Dr. Danay De Los Santos FREE THYROXINE INDEX T7on FTI 1.83 Normal 1.30-4.50 [facility] Comment on above: Performed By: #### T SH, CMP, T7, LIPID #### [facility] [address] [place] [address] Dr. Danay De Los Santos T3U 31.0 % Normal 30.0-39.0 [facility] Comment on above: Performed By: #### T SH, CMP, T7, LIPID #### [facility] [address] [address] [address] Danay De Los Santos T4 [Mass/Vol] 5.90 ug/dL Normal 4.80-13.90 [facility] Comment on above: Performed By: #### T SH, CMP, T7, LIPID #### [facility] [address] [address] [address] Danay De Los Santos GLYCOHEMOGLOBIN A1Con 2021 ADA RECOMMENDATION SEE BELOW Normal [facility] Comment on above: Result Comment: ADA RECOMMENDED LIMIT 4.0 - 6.0 ADA THERAPEUTIC TARGET < 7.0 ACTION SUGGESTED > 7.0 Performed By: #### A 1C #### [facility] [address] [address] [address] Danay De Los Santos Glucose [Mass/Vol] 186 mg/dL Normal [facility] Comment on above: Performed By: #### A 1C #### [facility] [address] [address] [address] Danay De Los Santos HbA1c (Bld) [Mass fraction] 8.1 % Critically high 4.5-6.2 [facility] Comment on above: Performed By: #### A 1C #### [facility] [address] [address] [address] Danay De Los Santos IRONon 05-26-2022 Iron [Mass/Vol] 61.0 ug/dL Normal 50.0-170.0 [facility] Comment on above: Performed By: #### T SH, CMP, T7, LIPID #### [facility] [address] [address] [address] Danay De Los Santos LIPID PROFILEon 05-26-2022 CHOL-HDL RATIO NORM SEE BELOW Normal [facility] Comment on above: Result Comment: 3.3 - 4.4 LOW RISK 4.4 - 7.1 AVERAGE RISK 7.1 - 11.0 MODERATE RISK >11.0 HIGH RISK Performed By: #### T SH, CMP, T7, LIPID #### [facility] [address] [address] [address] Danay De Los Santos Cholesterol [Mass/Vol] 130 mg/dL Normal <=200 [facility] Comment on above: Performed By: #### T SH, CMP, T7, LIPID #### [facility] [address] [address] [address] Danay De Los Santos Cholesterol in HDL [Mass/Vol] 40 mg/dL Normal 40-60 [facility] Comment on above: Performed By: #### T SH, CMP, T7, LIPID #### [facility] [address] [address] [address] Danay De Los Santos Cholesterol in LDL [Mass/Vol] 75.8 mg/dL Normal [facility] Comment on above: Performed By: #### T SH, CMP, T7, LIPID #### [facility] [address] [address] [address] Danay De Los Santos Cholesterol.total/Cho lesterol in HDL [Mass ratio] 3.3 {ratio} Normal [facility] Comment on above: Performed By: #### T SH, CMP, T7, LIPID #### [facility] [address] [address] [address] Danay De Los Santos HDL NORMAL > or = 60 mg/dl - LO W CARDIOVASCULAR RISK <40 mg/dl - HIGH CARDIOVASCULAR RISK Normal [facility] Comment on above: Performed By: #### T SH, CMP, T7, LIPID #### [facility] [address] [address] [address] Danay De Los Santos LDL CALC NORMAL SEE BELOW Normal [facility] Comment on above: Result Comment: <100 mg/dl OPTIMAL 100 - 129 mg/dl NEAR OR ABOVE OPTIMAL 130 - 159 mg/dl BORDERLINE HIGH 160 - 189 mg/dl HIGH >190 mg/dl VERY HIGH Performed By: #### T SH, CMP, T7, LIPID #### [facility] [address] [address] [address] Danay De Los Santos Triglyceride [Mass/Vol] 71 mg/dL Normal <=150 [facility] Comment on above: Performed By: #### T SH, CMP, T7, LIPID #### [facility] [address] [address] [address] Danay De Los Santos VLDL CALC 14.2 mg/dL Normal [facility] Comment on above: Performed By: #### T SH, CMP, T7, LIPID #### [facility] [address] [address] [address] Danay De Los Santos PROF 14(COMP METB)on 022 Albumin [Mass/Vol] 3.4 g/dL Normal 3.4-5.0 [facility] Comment on above: Performed By: #### T SH, CMP, T7, LIPID #### [facility] [address] [place] [address] Dr. Danay De Los Santos Albumin/Globulin [Mass ratio] 1.0 {ratio} Normal [facility] Comment on above: Performed By: #### T SH, CMP, T7, LIPID #### [facility] [address] [place] [address] Dr. Danay De Los Santos ALP [Catalytic activity/Vol] 92 U/L Normal 46-116 [facility] Comment on above: Performed By: #### T SH, CMP, T7, LIPID #### [facility] [address] [place] [address] Dr. Danay De Los Santos ALT [Catalytic activity/Vol] 15 U/L Normal 14-59 [facility] Comment on above: Performed By: #### T SH, CMP, T7, LIPID #### [facility] [address] [place] [address] Dr. Danay De Los Santos Anion gap [Moles/Vol] 10.4 mmol/L Normal [facility] Comment on above: Performed By: #### T SH, CMP, T7, LIPID #### [facility] [address] [place] [address] Dr. Danay De Los Santos AST [Catalytic activity/Vol] 12 U/L Critically low 15-37 [facility] Comment on above: Performed By: #### T SH, CMP, T7, LIPID #### [facility] [address] [place] [address] Dr. Danay De Los Santos Bilirubin [Mass/Vol] 0.4 mg/dL Normal 0.2-1.0 [facility] Comment on above: Performed By: #### T SH, CMP, T7, LIPID #### [facility] [address] [place] [address] Dr. Danay De Los Santos Calcium [Mass/Vol] 8.7 mg/dL Normal 8.5-10.1 [facility] Comment on above: Performed By: #### T SH, CMP, T7, LIPID #### [facility] [address] [address] [address] Danay De Los Santos Chloride [Moles/Vol] 107 mmol/L Normal 98-107 [facility] Comment on above: Performed By: #### T SH, CMP, T7, LIPID #### [facility] [address] [address] [address] Danay De Los Santos CO2 [Moles/Vol] 28.9 mmol/L Normal 21.0-32.0 [facility] Comment on above: Performed By: #### T SH, CMP, T7, LIPID #### [facility] [address] [address] [address] Danay De Los Santos Creatinine [Mass/Vol] 1.18 mg/dL Critically high 0.55-1.02 [facility] Comment on above: Performed By: #### T SH, CMP, T7, LIPID #### [facility] [address] [place] [address] Dr. Danay De Los Santos EGFR-AF DANISH 55 mL/min/1.73m2 Critically low >=60 [facility] Comment on above: Performed By: #### T SH, CMP, T7, LIPID #### [facility] [address] [address] [address] Danay De Los Santos EGFR-NON AF DANISH 46 mL/min/1.73m2 Critically low >=60 [facility] Comment on above: Performed By: #### T SH, CMP, T7, LIPID #### [facility] [address] [address] [address] Danay De Los Santos Globulin (S) [Mass/Vol] 3.3 g/dL Normal [facility] Comment on above: Performed By: #### T SH, CMP, T7, LIPID #### [facility] [address] [address] [address] Danay De Los Santos Glucose [Mass/Vol] 153 mg/dL Critically high 74-106 [facility] Comment on above: Performed By: #### T SH, CMP, T7, LIPID #### [facility] [address] [address] [address] Danay De Los Santos Potassium [Moles/Vol] 4.3 mmol/L Normal 3.5-5.1 [facility] Comment on above: Performed By: #### T SH, CMP, T7, LIPID #### [facility] [address] [place] [address] Dr. Danay De Los Santos Protein [Mass/Vol] 6.7 g/dL Normal 6.4-8.2 [facility] Comment on above: Performed By: #### T SH, CMP, T7, LIPID #### [facility] [address] [address] [address] Danay De Los Santos Sodium [Moles/Vol] 142 mmol/L Normal 136-145 [facility] Comment on above: Performed By: #### T SH, CMP, T7, LIPID #### [facility] [address] [place] [address] Dr. Danay De Los Santos Urea nitrogen [Mass/Vol] 16.0 mg/dL Normal 7.0-18.0 [facility] Comment on above: Performed By: #### T SH, CMP, T7, LIPID #### [facility] [address] [place] [address] Dr. Danay De Los Santos Urea nitrogen/Creatinine [Mass ratio] 13.6 mg/mg Normal [facility] Comment on above: Performed By: #### T SH, CMP, T7, LIPID #### [facility] [address] [place] [address] Dr. Danay De Los Santos TSHon 05-26-2022 TSH 1.443 uIU/mL Normal 0.358-3.740 [facility] Comment on above: Performed By: #### T SH, CMP, T7, LIPID #### [facility] [address] [place] [address] Dr. Danay De Los Santos XR DEXA [...] by: BECKY AVILEZ Date: 2022-04-05 12:11 Normal [facility] GLYCOHEMOGLOBIN A1Con 2021 ADA RECOMMENDATION SEE BELOW Normal [facility] Comment on above: Result Comment: ADA RECOMMENDED LIMIT 4.0 - 6.0 ADA THERAPEUTIC TARGET < 7.0 ACTION SUGGESTED > 7.0 Performed By: #### T SH, CMP, T7, LIPID #### [facility] [address] [address] [address] Danay De Los Santos Glucose [Mass/Vol] 174 mg/dL Normal [facility] Comment on above: Performed By: #### T SH, CMP, T7, LIPID #### [facility] [address] [address] [address] Danay De Los Santos HbA1c (Bld) [Mass fraction] 7.7 % Critically high 4.5-6.2 [facility] Comment on above: Performed By: #### T SH, CMP, T7, LIPID #### [facility] [address] [address] [address] Danay De Los Santos MG MAMM SCREEN 3D RIMA CADon 02-14-2022 MG MAMM SCREEN 3D RIMA CAD Patient: VIRGEN GONZALES Exam Date: 02/14/2022 : 1955 Gender:F Ordering : [facility]GGIE DAVIS [facility] Admission #: [id number] Family : Order #: [id number] CLICK HERE TO VIEW EXAM RADIOLOGY REPORT [...] unknown cancer at age 24. LOCATION: [facility] BREAST COMPOSITION: Heterogeneously dense,which may obscure [...] M.D. on 02/14/2022 at 16:12 Normal [facility] CARDIAC STRESS/REST INJE CTIONon 01-27-2020 [facility] CARDIAC STRESS/REST INJECTION Patient Name: VIRGEN GONZALES STUDY: MYOCARDIAL PERFUSION STRESS TEST WITH LEXISCAN Performing facility: [facility], [address] [place] [address], [address], [address] Provider: Catarino Koroma MD, FACC PCP: Dr. Nicola Granger Supervising provider: Catarino Koroma MD, FACC INDICATION: Abnormal EKG; Pre-operative risk assessment for Knee surgery scheduled at unknown on unknown. RBBB HISTORY: Gender: F; Age: 64 y/o ; Height: 152.4 cm; Weight: 77.8745119 kg. High Cholesterol; Abnormal EKG; Diabetes; Family HX CAD; HTN; Smoking COMPARISON: No comparison. ACCESSION NUMBER(S): [id number]; [id number]; [id number] ORDERING CLINICIAN: CATARINO KOROMA TECHNIQUE: ONE DAY [...] Electronically signed by: CATARINO KOROMA MD Normal [facility] Vital Signs Date Time Vital Sign Value Performing Clinician Swapnil ontiveros 08-31-2024 13:49-0500 Body height 152.4 cm Aggie Davis [employer] EXEC[employer]IVE DIRECTOR-C Work Phone: [facility] 08-31-2024 13:49-0500 Body mass index (BMI) [Ratio] 39.9 kg/m2 Aggie Davis [employer]AMP[employer] EXECUTIVE DIRECTOR-C Work Phone: [facility] 08-31-2024 13:49-0500 Body temperature 97.8 [degF] Aggie Davis [employer]AMPUS EXECUTIVE DIRECTOR-C Work Phone: [facility] 08-31-2024 13:49-0500 Body weight 92.75 kg Aggie Davis CAMPUS EXECUTIVE DIRECTOR-C Work Phone: [facility] 08-31-2024 13:49-0500 Diastolic blood pressure 71 mm[Hg] Aggie Davis CAMPUS EXECUTIVE DIRECTOR-C Work Phone: [facility] 08-31-2024 13:49-0500 Heart rate 68 /min Aggie Susan [employer]AMP[employer] EXECUTIVE DIRECTOR-C Work Phone: [facility] 08-31-2024 13:49-0500 Respiratory rate 18 /min Aggie Mccormackmer [employer]AMPUS EXECUTIVE DIRECTOR-C Work Phone: [facility] 08-31-2024 13:49-0500 SaO2% (BldA) [Mass fraction] 98 % Aggie Mccormackmer [employer]AMPUS EXECUTIVE DIRECTOR-C Work Phone: [facility] 08-31-2024 13:49-0500 Systolic blood pressure 106 mm[Hg] Aggie Susan CAMPUS EXECUTIVE DIRECTOR-C Work Phone: [facility] 08-31-2024 10:24-0500 Body height 152.4 cm Brice Estrella DO Work Phone: [facility] 08-31-2024 10:24-0500 Body mass index (BMI) [Ratio] 40.43 kg/m2 Brice Estrella DO Work Phone: [facility] 08-31-2024 10:24-0500 Body weight 93.89 kg Brice Estrella DO Work Phone: [facility] 08-20-2024 09:05-0500 Body mass index (BMI) [Ratio] 40.43 kg/m2 Olman De La Rosa DO Work Phone: [facility] 08-20-2024 09:05-0500 Body weight 93.89 kg Alfonsogrupoer Estrella DO Work Phone: [facility] 08-20-2024 09:05-0500 Diastolic blood pressure 80 mm[Hg] Christopher Estrella DO Work Phone: [facility] 08-20-2024 09:05-0500 Heart rate 80 /min Alfonsoopher Estrella DO Work Phone: [facility] 08-20-2024 09:05-0500 SaO2% (BldA) [Mass fraction] 95 % Christopher Estrella DO Work Phone: [facility] 08-20-2024 09:05-0500 Systolic blood pressure 144 mm[Hg] Olman De La Rosa Work Phone: [facility] 08-19-2024 10:18-0500 Body height 152.4 cm Aggienapoleon Mccormackmer CAMPUS EXECUTIVE DIRECTOR-C Work Phone: [facility] 08-19-2024 10:18-0500 Body mass index (BMI) [Ratio] 40.8 kg/m2 Aggie Susan CAMPUS EXECUTIVE DIRECTOR-C Work Phone: [facility] 08-19-2024 10:18-0500 Body weight 94.8 kg Aggie Susan CAMPUS EXECUTIVE DIRECTOR-C Work Phone: [facility] 08-19-2024 09:13-0500 Body temperature 98.2 [degF] Aggie Susan CAMPUS EXECUTIVE DIRECTOR-C Work Phone: [facility] 08-19-2024 09:13-0500 Diastolic blood pressure 44 mm[Hg] Aggienapoleon Mccormackmer CAMPUS EXECUTIVE DIRECTOR-C Work Phone: [facility] 08-19-2024 09:13-0500 Heart rate 87 /min Aggie Susan CAMPUS EXECUTIVE DIRECTOR-C Work Phone: [facility] 08-19-2024 09:13-0500 Respiratory rate 20 /min Aggie Susan CAMPUS EXECUTIVE DIRECTOR-C Work Phone: [facility] 08-19-2024 09:13-0500 Systolic blood pressure 100 mm[Hg] Aggie Susan CAMPUS EXECUTIVE DIRECTOR-C Work Phone: [facility] 08-18-2024 10:31-0500 Body height 152.4 cm Mathieu Naqvi MD Work Phone: [facility] 08-18-2024 10:31-0500 Body mass index (BMI) [Ratio] 40.82 kg/m2 Mathieu Naqvi MD Work Phone: [facility] 08-18-2024 10:31-0500 Body weight 94.8 kg Mathieu Naqvi MD Work Phone: [facility] 07-07-2024 21:52-0500 Body temperature 97.88 [degF] Kaylinn Dokken [facility] 07-07-2024 21:52-0500 Diastolic blood pressure 76 mm[Hg] Kaylinn Dokken [facility] 07-07-2024 21:52-0500 Heart rate 72 /min Kaylinn Dokken [facility] 07-07-2024 21:52-0500 Mean blood pressure 86 mm[Hg] Kaylinn Dokken [facility] 07-07-2024 21:52-0500 Respiratory rate 19 /min Kaylinn Dokken [facility] 07-07-2024 21:52-0500 SaO2% (BldA) [Mass fraction] 95 % Kaylinn Dokken [facility] 07-07-2024 21:52-0500 Systolic blood pressure 105 mm[Hg] Kaylinn Dokken [facility] 07-07-2024 20:57-0500 Diastolic blood pressure 77 mm[Hg] Kaylinn Dokken [facility] 07-07-2024 20:57-0500 Heart rate 61 /min Kaylinn Dokken [facility] 07-07-2024 20:57-0500 Mean blood pressure 102 mm[Hg] Kaylinn Dokken [facility] 07-07-2024 20:57-0500 Respiratory rate 18 /min Kaylinn Dokken [facility] 07-07-2024 20:57-0500 SaO2% (BldA) [Mass fraction] 96 % Kaylinn Dokken [facility] 07-07-2024 20:57-0500 Systolic blood pressure 153 mm[Hg] Kaylinn Dokken [facility] 07-07-2024 19:33-0500 Diastolic blood pressure 89 mm[Hg] Kaylinn Dokken [facility] 07-07-2024 19:33-0500 Heart rate 60 /min Kaylinn Dokken [facility] 07-07-2024 19:33-0500 Mean blood pressure 108 mm[Hg] Kaylinn Dokken [facility] 07-07-2024 19:33-0500 Respiratory rate 19 /min Kaylinn Dokken [facility] 07-07-2024 19:33-0500 SaO2% (BldA) [Mass fraction] 95 % Kaylinn Dokken [facility] 07-07-2024 19:33-0500 Systolic blood pressure 146 mm[Hg] Kaylinn Dokken [facility] 07-07-2024 19:20-0500 Body temperature 98.06 [degF] Kaylinn Dokken [facility] 07-07-2024 18:33-0500 Body temperature 98.24 [degF] Kaylinn Dokken [facility] 07-07-2024 18:33-0500 Heart rate 73 /min Kaylinn Dokken [facility] 07-07-2024 18:33-0500 Respiratory rate 18 /min Kaylinn Dokken [facility] 07-07-2024 18:19-0500 gluc 142 mg/dL Tieninn Dokken [facility] 07-07-2024 18:18-0500 Heart rate 73 /min Tieninn Dokken [facility] 07-07-2024 18:18-0500 Respiratory rate 18 /min Eugenian Dokken [facility] 05-18-2024 10:53-0400 Body height 152.4 cm Da Biedenbach DO Work Phone: [facility] 05-18-2024 10:53-0400 Body mass index (BMI) [Ratio] 38.08 kg/m2 Da Biedenbach DO Work Phone: [facility] 05-18-2024 10:53-0400 Body weight 88.45 kg Da Biedenbach DO Work Phone: [facility] 04-13-2024 11:09-0400 Body height 152.4 cm Da Biedenbach DO Work Phone: [facility] 04-13-2024 11:09-0400 Body mass index (BMI) [Ratio] 38.08 kg/m2 Da Biedenbach DO Work Phone: [facility] 04-13-2024 11:09-0400 Body weight 88.45 kg Da Biedenbach DO Work Phone: [facility] 04-10-2024 09:25-0400 Body height 149.9 cm Da Biedenbach DO Work Phone: [facility] 04-10-2024 09:25-0400 Body mass index (BMI) [Ratio] 39.39 kg/m2 Da Biedenbach DO Work Phone: [facility] 04-10-2024 09:25-0400 Body weight 88.45 kg Da Biedenbach DO Work Phone: [facility] 03-26-2024 11:11-0400 Body height 152.4 cm Da Phillip DO Work Phone: [facility] 03-26-2024 11:11-0400 Body mass index (BMI) [Ratio] 38.08 kg/m2 Da Phillip DO Work Phone: [facility] 03-26-2024 11:11-0400 Body weight 88.45 kg Da Phillip DO Work Phone: [facility] 08-27-2023 15:38-0500 Body height 149.9 cm Brice Estrella DO Work Phone: [facility] 08-27-2023 15:38-0500 Body mass index (BMI) [Ratio] 39.59 kg/m2 Brice Estrella DO Work Phone: [facility] 08-27-2023 15:38-0500 Body temperature 97.39 [degF] Bricelaura Estrella DO Work Phone: [facility] 08-27-2023 15:38-0500 Body weight 88.91 kg Brice Estrella DO Work Phone: [facility] 06-07-2023 08:27-0500 Heart rate 77 /min Brice Delores [facility] 06-07-2023 08:27-0500 SaO2% (BldA) [Mass fraction] 98 % Brice Delores [facility] [facility] 06-07-2023 08:26-0500 Respiratory rate 20 /min Brice Delores [facility] 06-07-2023 08:26-0500 Blood Pressure Location Brice Delores [facility] 06-07-2023 08:26-0500 Diastolic blood pressure 64 mm[Hg] Brice Estrella [facility] 06-07-2023 08:26-0500 Mean blood pressure 77 mm[Hg] Brice Estrella [facility] 06-07-2023 08:26-0500 Systolic blood pressure 102 mm[Hg] Brice Estrella [facility] 06-07-2023 08:25-0500 Body temperature 97.88 [degF] Brice Estrella [facility] 06-07-2023 08:05-0500 Blood Pressure Location Brice Estrella [facility] 06-07-2023 08:05-0500 Diastolic blood pressure 59 mm[Hg] Brice Estrella [facility] 06-07-2023 08:05-0500 Heart rate 73 /min Brice Estrella [facility] 06-07-2023 08:05-0500 Respiratory rate 20 /min Brice Estrella [facility] 06-07-2023 08:05-0500 SaO2% (BldA) [Mass fraction] 95 % Brice Estrella [facility] 06-07-2023 08:05-0500 Systolic blood pressure 114 mm[Hg] Brice Estrella [facility] 06-07-2023 07:30-0500 Blood Pressure Location Brice Estrella [facility] 06-07-2023 07:30-0500 Diastolic blood pressure 70 mm[Hg] Brice Estrella [facility] 06-07-2023 07:30-0500 Heart rate 70 /min Brice Estrella [facility] 06-07-2023 07:30-0500 Respiratory rate 20 /min Brice Estrella [facility] 06-07-2023 07:30-0500 SaO2% (BldA) [Mass fraction] 96 % Brice Estrella [facility] 06-07-2023 07:30-0500 Systolic blood pressure 114 mm[Hg] Brice Estrella [facility] 06-07-2023 06:52-0500 Mean blood pressure 76 mm[Hg] Brice Estrella [facility] 06-07-2023 06:49-0500 Body temperature 97.88 [degF] Brice Estrella [facility] 06-07-2023 06:49-0500 Mean blood pressure 79 mm[Hg] Brice Estrella [facility] Encounters Encounter Date Encounter Type Care Provider Facility Start: 09-07-2024 ambulatory Kang Ferrell ty:[facility] [place] Start: 08-31-2024 End: 08-31-2024 Bamboo flowsheet Brice Estrella DO Work Phone: [facility] Start: 08-31-2024 End: 08-31-2024 Bamboo flowsheet Brice Estrella DO Work Phone: [facility] Start: 08-31-2024 End: 08-31-2024 ambulatory Aggie Davis CAMPUS EXECUTIVE DIRECTOR-C Work Phone: [facility] Work Phone: Start: 08-31-2024 End: 08-31-2024 Patient encounter procedure Aggie Davis CAMPUS EXECUTIVE DIRECTOR-C Work Phone: [facility] Work Phone: Start: 08-31-2024 End: 08-31-2024 Patient encounter procedure Brice Estrella DO Work Phone: [facility] Comment on above: Lateral epicondyliti s of right elbow (Primary Dx); Right elbow pain; Triceps tendonitis Start: 08-31-2024 End: 08-31-2024 ambulatory BRICE ESTRELLA Not Available Start: 08-24-2024 End: 08-24-2024 ambulatory OLMAN DE LA ROSA Not Available Start: 08-20-2024 End: 08-20-2024 ambulatory EHAB [facility] Start: 08-20-2024 End: 08-20-2024 Bamboo flowsheet Olman Estrella DO Work Phone: [facility] [place] Start: 08-20-2024 End: 08-20-2024 Bamboo flowsheet Christophbakari Byrdett DO Work Phone: [facility] [place] Start: 08-20-2024 End: 08-20-2024 ambulatory ALFONSOLELIA BYRDETT Not Available Start: 08-20-2024 End: 08-20-2024 Office outpatient new 45 minutes Christopher Estrella DO Work Phone: [facility] [place] Comment on above: Loss of consciousnes s (CMS/HCC) (Primary Dx); Bilateral hand numbness Start: 08-19-2024 Registered Recurring Aggie BEEBEC Work Phone: [facility] [place] Work Phone: Start: 08-19-2024 ambulatory Aggie Walton ity:[facility] Start: 08-18-2024 End: 08-18-2024 Bamboo flowsheet Mathieu Naqvi MD Work Phone: [facility] Start: 08-18-2024 End: 08-18-2024 Bamboo flowsheet Mathieu Naqvi MD Work Phone: [facility] Start: 08-18-2024 End: 08-18-2024 Office outpatient new 45 minutes Mathieu Naqvi MD Work Phone: [facility] Comment on above: Type 2 diabetes tad itus with hyperglycemia, with long-term current use of insulin (CMS/HCC) (Primary Dx); Encounter for dietary consultation; Vitamin D deficiency; Primary hypertension (CMS/HCC); Hyperlipemia, mixed (CMS/HCC); Class 3 severe obesity due to excess calories with serious comorbidity and body mass index (BMI) of 40.0 to 44.9 in adult (CMS/HCC) Start: 08-18-2024 End: 08-18-2024 ambulatory MATHIEU NAQVI Not Available Start: 08-14-2024 ambulatory Kang BOSS Facility :[facility] Start: 08-14-2024 ambulatory Facility:[facility] Start: 07-07-2024 End: 07-07-2024 Emergency department patient visit Tiny Fallon [facility] Start: 05-18-2024 End: 05-18-2024 ambulatory DA PHILLIP Not Available Start: 05-18-2024 End: 05-18-2024 Office outpatient visit 15 minutes Da Phillip DO Work Phone: [facility] [place] Comment on above: Nontoxic multinodula r goiter (CMS/HCC) (Primary Dx); Thyroid nodule (CMS/HCC); Hearing loss, unspecified hearing loss type, unspecified laterality Start: 05-04-2024 End: 05-04-2024 Bamboo flowsheet Da Phillip DO Work Phone: [facility] Start: 05-04-2024 End: 05-04-2024 Bamboo flowsheet Da Phillip DO Work Phone: [facility] [place] Start: 04-13-2024 End: 04-13-2024 Bamboo flowsheet Da Phillip DO Work Phone: [facility] [place] Start: 04-13-2024 End: 04-13-2024 Bamboo flowsheet Da Phillip DO Work Phone: [facility] [place] Start: 04-13-2024 End: 04-13-2024 Departed Referred CAMPUS EXECUTIVE DIRECTOR-C Aggie Davis Work Phone: [facility] [place] Work Phone: Start: 04-13-2024 End: 04-13-2024 ambulatory CAMPUS EXECUTIVE DIRECTOR-C Aggie Davis Work Phone: [facility] Work Phone: Start: 04-13-2024 End: 04-13-2024 [...] Start: 03-26-2024 End: 03-26-2024 Patient encounter procedure CAMPUS EXECUTIVE DIRECTOR-C Aggie Davis Work Phone: [facility] [place] Work Phone: Start: 03-26-2024 End: 03-26-2024 ambulatory CAMPUS EXECUTIVE DIRECTOR-C Aggie Davis Work Phone: [facility] Work Phone: Start: 03-26-2024 End: 03-26-2024 Office outpatient new 45 minutes Da Rubio Traceymaicol DO Work Phone: [facility] Comment on above: Thyroid nodule (CMS/ HCC) (Primary Dx); Nontoxic multinodular goiter (CMS/HCC); Thyroid dysfunction (CMS/HCC) Start: 03-26-2024 End: 03-26-2024 ambulatory DA Rubio TRACEYMAICOL Not Available Start: 02-14-2024 End: 02-14-2024 ambulatory CAMPUS EXECUTIVE DIRECTOR-C Aggie Davis Work Phone: [facility] Work Phone: Start: 02-14-2024 End: 02-14-2024 Departed Referred CAMPUS EXECUTIVE DIRECTOR-C Aggie Davis Work Phone: [facility] Start: 01-25-2024 Non-patient / Non-visit CAMPUS EXECUTIVE DIRECTOR-C Keke Davis Work Phone: [facility] Work Phone: Start: 12-31-2023 End: 12-31-2023 ambulatory BRICE ESTRELLA Not Available Start: 11-11-2023 End: 02-26-2024 ambulatory Brice Estrella Facility:[facility] Start: 10-29-2023 End: 10-29-2023 ambulatory BRICE ESTRELLA Not Available Start: 10-08-2023 End: 10-08-2023 ambulatory BRICE ESTRELLA Not Available Start: 2023 Chart abstracting Brice brantley DO Work Phone: [facility] Start: 08-27-2023 End: 08-27-2023 Patient encounter procedure Brice Estrella DO Work Phone: [facility] Comment on above: Left knee pain, unsp ecified chronicity (Primary Dx) Start: 08-22-2023 End: 08-22-2023 ambulatory CAMPUS EXECUTIVE DIRECTOR-C Aggie Davis Work Phone: [facility] Work Phone: Start: 08-22-2023 End: 08-22-2023 Discharged Recurring CAMPUS EXECUTIVE DIRECTOR-C Aggie Mccormackmer Work Phone: [facility] Pediatric Physician [address] Start: 06-07-2023 End: 06-07-2023 Admission to same day surgery center Brice Estrella [facility] Start: 12-26-2022 ambulatory AGGIE SUSAN Facility: H1 [...] End: 11-09-2021 Patient encounter procedure Michele Jane [facility] Procedures Date Procedure Procedure Detail Performing Clinician Start: 08-31-2024 Arthrocentesis aspir &/inj interm jt/burs w/o us Brice Estrella DO Work Phone: Start: 08-31-2024 Radex elbow complete minimum 3 views Brice Estrella DO Work Phone: Start: 08-27-2023 Arthrocentesis aspir &/inj major jt/bursa w/o Phi DESIR Work Phone: Start: 06-07-2023 Decompression of med pablito nerve Brice Delores Start: 09-30-2020 Arthroscopy of knee Ronen karon Sauced[place]iquita Start: 05-09-2016 Right little finger release A-1 linda Michele Jane Cholecystectomy Michele Michaelchris History of tonsillectomy Ronen Rodriguezchris Hysterectomy Michele Jane needle removed right foot Emilee reynaldo [place]our[place] Operation on toenail Michele perez Release of trigger finger Emilee reynalod Mourany right carpel tunnel Michele dill right knee arthroscopy x2 Emilee reynaldo [place]our[place] Plan of Treatment Date Care Activity Detail Author Start: 06-01-2025 Pneumococcal Vaccine: 65+ Years (3 - PPSV23 or PCV20) Pneumococcal Vaccine: 65+ Years (3 - PPSV23 or PCV20) [facility] Start: 06-01-2025 Pneumococcal Vaccine: 65+ Years (3 of 3 - PPSV23 or PCV20) Pneumococcal Vaccine: 65+ Years (3 of 3 - PPSV23 or PCV20) [facility] Start: 11-16-2024 End: 11-16-2024 Patient encounter procedure 11/16/2024 10:50 AM EDT Office Visit [facility] [address] [place] [phone] Mathieu Naqvi MD [address] [place] [address] [facility] Start: 11-09-2024 End: 11-09-2024 Patient encounter procedure 11/09/2024 10:00 AM EDT Office Visit [facility] [place] [address] [place] [address] Da Phillip, DO [address] [place] [address] [facility] [place] Start: 11-02-2024 End: 11-02-2024 Patient encounter procedure 11/02/2024 10:30 AM EDT Office Visit [facility] [address] [place] [phone] Brice Estrella, DO [address] [place] [address] [facility] Start: 09-28-2024 End: 09-28-2024 Patient encounter procedure 09/28/2024 1:15 PM EST Office Visit [facility] [address] [place] [phone] Olman De La Rosa DO [address] [place] [address] [facility] Start: 09-03-2024 End: 09-03-2024 Patient encounter procedure 09/03/2024 2:00 PM EST Procedure Visit [facility] [address] [place] [address] Olman De La Rosa DO [address] [place] [address] [facility] Start: 09-03-2024 End: 09-03-2024 ambulatory 09/03/2024 12:30 PM EST Evaluation [facility] [address] [place] [address] Sofya Brasher, OT [address] [place] [address] [facility] Start: 08-31-2024 End: 08-31-2024 Patient encounter procedure [facility] Comment on above: Arrived Start: 08-24-2024 End: 08-24-2024 Clinical Support 08/24/2024 10:45 AM EST Clinical Support [facility] [address] [place] [address] [facility] Start: 08-20-2024 End: 08-20-2025 Creatinine [Mass/volume] in Serum or Plasma Creatinine, Serum Lab Routine Loss of consciousness (CMS/HCC) Expected: 08/20/2024 (Approximate), Expires: 08/20/2025 [facility] Comment on above: Expected: 08/20/2024 (Approximate), Expi res: 08/20/2025 Start: 08-20-2024 End: 08-20-2025 EEG, Including Recording Awake or Asleep EEG, Including Recording Awake or Asleep Neurology Routine Loss of consciousness (CMS/HCC) Expected: 08/20/2024 (Approximate), Expires: 08/20/2025 [facility] Comment on above: Expected: 08/20/2024 (Approximate), Expi res: 08/20/2025 Start: 08-20-2024 End: 08-20-2025 EMG 2 Extremities EMG 2 Extremities Neurology Routine Bilateral hand numbness Expected: 08/20/2024, Expires: 08/20/2025 [facility] Work Phone: Comment on above: Expected: 08/20/2024, Expires: Start: 08-20-2024 End: 08-20-2025 MR Brain WO and W contrast IV MR brain w and wo contrast routine Imaging Routine Loss of consciousness (CMS/HCC) Expected: 08/20/2024, Expires: 08/20/2025 [facility] Comment on above: Expected: 08/20/2024, Expires: Start: 08-20-2024 End: 08-20-2024 Patient encounter procedure 08/20/2024 9:00 AM EST Office Visit [facility] [address] [address] [place] [address] Olman De La Rosa, [address] [place] [address] [facility] Start: 08-18-2024 End: 08-18-2025 25-hydroxyvitamin D3 [Mass/volume] in Serum or Plasma Vitamin D 25 hydroxy Total Lab Routine Type 2 diabetes mellitus with hyperglycemia, with long-term current use of insulin ([facility]) Expected: 08/18/2024 (Approximate), Expires: 08/18/2025 [facility] Comment on above: Expected: 08/18/2024 (Approximate), Expi res: 08/18/2025 Start: 08-18-2024 End: 08-18-2025 C-peptide C-peptide Lab Routine Type 2 diabetes mellitus with hyperglycemia, with long-term current use of insulin (CMS/HCC) Expected: 08/18/2024 (Approximate), Expires: 08/18/2025 [facility] Work Phone: Comment on above: Expected: 08/18/2024 (Approximate), Expi res: 08/18/2025 Start: 08-18-2024 End: 08-18-2025 Lipid 1996 panel - Serum or Plasma Lipid panel Lab Routine Type 2 diabetes mellitus with hyperglycemia, with long-term current use of insulin (CMS/HCC) Expected: 08/18/2024 (Approximate), Expires: 08/18/2025 [facility] Comment on above: Expected: 08/18/2024 (Approximate), Expi res: 08/18/2025 Start: 08-18-2024 End: 08-18-2025 Microalbumin/Creatinine panel in random Urine Microalbumin / creatinine urine ratio Lab Routine Type 2 diabetes mellitus with hyperglycemia, with long-term current use of insulin (CMS/HCC) Expected: 08/18/2024 (Approximate), Expires: 08/18/2025 [facility] Comment on above: Expected: 08/18/2024 (Approximate), Expi res: 08/18/2025 Start: 08-18-2024 End: 08-18-2025 Renal function panel Renal function panel Lab Routine Type 2 diabetes mellitus with hyperglycemia, with long-term current use of insulin ([facility]) Expected: 08/18/2024 (Approximate), Expires: 08/18/2025 [facility] Comment on above: Expected: 08/18/2024 (Approximate), Expi res: 08/18/2025 Start: 08-18-2024 End: 08-18-2024 Patient encounter procedure 08/18/2024 10:30 AM EST Office Visit [facility] [address] [place] [address] Mathieu Naqvi MD [address] [place] [address] Arrived [facility] Comment on above: Arrived Start: 07-27-2024 End: 07-27-2024 Patient encounter procedure 07/27/2024 1:00 PM EST [facility] [address] [place] [address] Chana Iglesias, AUD [address] [place] [address] [facility] Start: 05-04-2024 End: 05-04-2024 Patient encounter procedure 05/04/2024 10:15 AM EDT Office Visit [facility] [address] [place] [address] Da Phillip, DO [address] [place] [address] Arrived [facility] Comment on above: Arrived Start: 04-13-2024 End: 04-13-2024 Patient encounter procedure 04/13/2024 11:00 AM EDT Office Visit [facility] [address] [place] [address] Da Phillip, DO [address] [place] [address] [facility] [place] Start: 04-10-2024 End: 04-10-2024 Patient encounter [facility] Comment on above: Arrived Start: 03-29-2024 Influenza vaccination Influenza Vaccine (#1) [facility] Start: 03-26-2024 End: 03-26-2025 Thyrotropin [Units/volume] in Serum or Plasma [facility] Comment on above: Expected: 03/26/2024 (Approximate), Expi res: 03/26/2025 Start: 03-26-2024 End: 03-26-2025 Triiodothyronine (T3) [Mass/volume] in Serum or Plasma T3 Lab Routine Thyroid nodule (CMS/HCC) Expected: 03/26/2024 (Approximate), Expires: 03/26/2025 [facility] Work Phone: Comment on above: Expected: 03/26/2024 (Approximate), Expi res: 03/26/2025 Start: 03-26-2024 End: 03-26-2024 Patient encounter procedure 03/26/2024 11:00 AM EDT [facility] [address] [place] [address] aD Phillip DO [address] [place] [address] Arrived [facility] Comment on above: Arrived Start: 10-08-2023 End: 10-08-2023 Patient encounter procedure 10/08/2023 10:00 AM EDT Office Visit [facility] [address] [place] [phone] Brice Estrella DO [address] [place] [address] [facility] Start: 07-29-2023 Pneumococcal Vaccine: 65+ Years (3 of 3 - PPSV23 or PCV20) Pneumococcal Vaccine: 65+ Years (3 of 3 - PPSV23 or PCV20) [facility] Start: 1994 Screening for malignant neoplasm of breast Mammogram [facility] Start: 1973 Urine screening for protein Diabetes: Urine Protein Screening [facility] Start: 1964 Glaucoma screening Diabetes: Retinopathy Screening [facility] Start: 1954 Hemoglobin A1c measurement Diabetes: Hemoglobin A1C [facility] Start: 1954 Medicare Annual Wellness (AWV) Medicare Annual Wellness (AWV) [facility] Start: 1954 Screening for malignant neoplasm of colon [facility] Renal function 2000 panel - Serum or Plasma [facility] Immunizations Immunization Date Immunization Notes Care Provider Fa cility 12-27-2023 zoster vaccine recombinant Da Phillip DO Work Phone: [facility] 06-30-2023 Influenza, High-dose Seasonal, Quadrivalent, Preservative Free Da Phillip DO Work Phone: [facility] 06-30-2023 influenza virus vaccine, unspecified formulation Da Phillip DO Work Phone: [facility] 10-30-2022 Influenza, High-dose Seasonal, Quadrivalent, Preservative Free Da Phillip DO Work Phone: [facility] 05-31-2022 Influenza, Seasonal, Quadrivalent, Adjuvanted Da Phillip DO Work Phone: [facility] 11-14-2020 SARS-CoV-2 (COVID-19 ) mRNA-[id number] vaccine Michele Jane [facility] 06-01-2020 pneumococcal conjuga te vaccine, 13 valent Da Phillip DO Work Phone: [facility] 06-01-2020 Seasonal trivalent influenza vaccine, adjuvanted, preservative free Da Phillip DO Work Phone: [facility] 04-28-2019 influenza, seasonal, injectable Da Phillip DO Work Phone: [facility] 07-29-2018 pneumococcal polysaccharide vaccine, 23 valent Da Pihllip DO Work Phone: [facility] 04-18-2018 tetanus toxoid, redu soledad diphtheria toxoid, and acellular pertussis vaccine, adsorbed 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 2022 Worker's Compensation LAMIN Harper ember [id number] 2022 Medicare [employer] MEDICARE ADVANTAGE [employer] MEDICARE [id number] 2022-Present [address] [address] [place] [address] [id number] [id number] 2022 Medicare (Managed Care) [employer] EDICARE ADVANTAGE [id number] [id number] 1959 Medicare [id number] 1959 Unknown [id number] 1954 Unknown [id number] 2.16.840.1.123261.3.579. 2.593 1954 Unknown [id number] 2.16.840.1.898791.3.579. 2.593 1954 Unknown [id number] 2.16.840.1.108083.3.579. 2.593 1954 Unknown [id number] 2.16.840.1.961783.3.579. 2.593 1954 Unknown [id number] 2.16.840.1.644875.3.579. 2.593 1954 Unknown [id number] 2.16.840.1.090337.3.579. 2.593 1954 Unknown [id number] 2.16.840.1.450828.3.579. 2.593 1954 Unknown [id number] 2.16.840.1.859840.3.579. 2.593 1954 Unknown [id number] 2.16.840.1.858556.3.579. 2.593 1954 Unknown [id number] 2.16.840.1.104030.3.579. 2.593 1954 Unknown [id number] 2.16.840.1.602718.3.579. 2.593 1954 Unknown [id number] 2.16.840.1.801171.3.579. 2.593 1954 Unknown [id number] 2.16.840.1.309953.3.579. 2. 1954 Unknown [id number] 2.16.840.1.716345.3.579. 2. 1954 Unknown [id number] 2.16.840.1.769227.3.579. 2. 1954 Unknown [id number] 2.16.840.1.661413.3.579. 2. 1954 Unknown [id number] 2.16.840.1.176050.3.579. 2. 1954 Unknown [id number] 2.16.840.1.672253.3.579. 2. 1954 Unknown [id number] 2.16.840.1.173503.3.579. 2. 1954 Unknown [id number] 2.16.840.1.094166.3.579. 2.1258 1954 Unknown [id number] 2.16.840.1.143511.3.579. 2.1258 1954 Unknown [id number] 2.16.840.1.286211.3.579. 2.1258 1954 Unknown [id number] 2.16840.1.339646.3.579. 2.1258 1954 Unknown [id number] 2.16.840.1.529931.3.579. 2.1258 1954 Unknown [id number] 2.16.840.1.432338.3.579. 2.1258 1954 Unknown [id number] 2.16.840.1.528314.3.579. 2.1258 1954 Unknown [id number] 2.16.840.1.731399.3.579. 2.1258 1954 Unknown [id number] 2.16.840.1.402831.3.579. 2.1258 1954 Unknown [id number] 2.16.840.1.232927.3.579. 2.1258 1954 Unknown [id number] 2.16.840.1.410750.3.579. 2.1258 1954 Unknown [id number] 2.16.840.1.142631.3.579. 2.1258 1954 Unknown [id number] 2.16.840.1.561531.3.579. 2.1258 1954 Unknown [id number] 2.16.840.1.730426.3.579. 2.1258 1954 Unknown [id number] 2.16.840.1.850647.3.579. 2.1258 1954 Unknown [id number] 2.16.840.1.898408.3.579. 2.1258 1954 Unknown [id number] 2.16.840.1.253547.3.579. 2.1258 1954 Unknown [id number] 2.16.840.1.850633.3.579. 2.1258 1954 Unknown [id number] 2.16.840.1.621257.3.579. 2.1258 1954 Unknown [id number] 2.16.840.1.460681.3.579. 2.1258 1954 Unknown [id number] 2.16.840.1.124348.3.579. 2.1258 1954 Unknown [id number] 2.16.840.1.502475.3.579. 2.1258 1954 Unknown [id number] 2.16.840.1.943467.3.579. 2.1258 1954 Unknown [id number] 2.16.840.1.975284.3.579. 2.9 Unknown [employer] BC/BS [id number] Unknown Regular Auto/Medical [id number] Unknown [id number] 2.16.840.1.910449.3.579. 2.531 Unknown [id number] 2.16.840.1.728508.3.579. 2.531 Unknown [id number] 2.16.840.1.410766.3.579. 2.531 Unknown [id number] 2.16.840.1.463453.3.579. 2.531 Social History Date Type Detail Facility Tobacco Cigarettes [facility] Comment on above: 05/30 pkg daily Start: 08-27-2023 End: 08-31-2024 Sex Assigned At Female [facility] Tobacco smoking status No Smoking Status Entered [facility] Start: 05-07-2023 Tobacco smoking status [facility] Smokes tobacco daily [facility] History of tobacco use Cigarette Smoker [facility] Start: 05-07-2023 Tobacco use and exposure Smokeless tobacco non-user [facility] Start: 08-27-2023 End: 08-31-2024 Alcohol intake Lifetime non-drinker (finding) [facility] Start: 08-27-2023 End: 08-31-2024 History of Social function [facility] Start: 05-07-2023 Alcohol Comment caffeine intak e: more than 4 cups per day of coffee, pop, tea [facility] Start: 1955 Sex Assigned At Not on file [facility] Start: 04-12-2023 End: 08-31-2024 Tobacco smoking status DEIS Smoker (finding) [facility] Start: 1955 Sex Assigned At Female [facility] Start: 08-16-2024 Gender identity Identifies as female gender (finding) [facility] Start: 08-31-2024 Sex Female (finding) [facility] Medical Equipment Procedure Code Equipment Code Equipment Origin al Text Equipment Identifier Dates [id number] Start: 04-05-2023 TEST BLOOD SUGAR THREE TIMES DAILY for 90 [id number] Blood Sugar Diagnostic (Onetouch Ultra Test) strip [...] Assessment Result Facility 07-07-2024 Functional Status N/A [facility] 06-07-2023 Functional Status N/A [facility] Clinical Notes 03-16-2022 to 08-31-2024 DAR Delong - 08/31/2024 10:30 AM Guillermina Estrella DO - 08/31/2024 10:30 AM Ameena De La Rosa DO - 08/20/2024 9:00 AM EST Note Date & Type Note Facility 08-31-2024 History of Present illness Narrative Associated Order(s): M Inj/Asp: R elbow Post-Procedure Diagnose(s): Right elbow pain M Inj/Asp: R elbow on 08/31/2024 10:53 AM Indications: pain Details: 25 G needle Medications: 1 mL betamethasone acetate-betamethasone sodium phosphate 6 (3-3) MG/ML Consent was given by the patient. Images from the original note were not included. [email or web address] Bindu Zelaya is a 68 y.o. female who presents for Pain of the Right Elbow HPI: History of Present Illness The patient is a 68-year-old right-hand dominant female who presents today for evaluation of her right elbow. She reports a persistent, severe burning sensation in her right elbow, specifically on the posterior aspect. She has attempted to alleviate the discomfort with a brace, which provides temporary relief but does not improve the condition when she is at rest or using the computer. She also tried using a sleeve, but it was too thin to provide any significant benefit. Her olecranon bursa was aspirated and injected on 07/23/2023. SOCIAL HISTORY She now works at [employer]. SUBJECTIVE: MEDICATIONS: Current Outpatient Medications Medication Instructions albuterol HFA 90 mcg/act inhaler alendronate (Fosamax) 70 MG tablet 1 tablet Orally once weekly for 90 days ASPIRIN 81 MG chewable tablet Every 24 hours Blood Glucose Monitoring Suppl (True Metrix Air Glucose Meter) w/Device kit busPIRone (Buspar) 7.5 MG tablet Every 12 hours esomeprazole (NexIUM) [address] capsule 1 capsule, Every 24 hours ferrous sulfate 325 (65 Fe) MG tablet Every 24 hours Flovent HFA 110 MCG/ACT inhaler Every 12 hours FLUoxetine (PROzac) 20 MG capsule Every 24 hours hydroCHLOROthiazide (HYDRODiuril) 25 MG tablet Every 24 hours insulin regular (HUMULIN R,NOVOLIN R) 8 Units, Subcutaneous, 3 times daily with meals Jardiance 25 MG (Prior Auth: Rx Ref#:[id number]) Oral for 90 Lasix 20 MG tablet 1 tablet Orally Once a day as needed for 90 days lisinopril 10 MG tablet Every 24 hours omeprazole (PriLOSEC) [address] capsule Ozempic (0.25 or 0.5 MG/DOSE) 0.5 mg, Subcutaneous, Every 7 days pregabalin (Lyrica) 75 MG capsule TAKE 1 CAPSULE TWICE DAILY for 30 pseudoephedrine-Ibuprofen 30-200 MG tablet per tablet Every 6 hours ReliOn Insulin Syringe 31G X 15/64 0.3 ML misc USE 1 ONCE DAILY DIRECTED simvastatin (Zocor) 40 MG tablet Every 24 hours True Metrix Blood Glucose Test test strip TEST BLOOD SUGAR THREE TIMES DAILY for 90 TRUEplus Lancets 33G misc ALLERGIES: Allergies Allergen Reactions Hydrocodone Unknown Other Reaction(s): upset stomach Hydrocodone-Acetaminophen Unknown Other Reaction(s): Unknown Oxycodone-Acetaminophen Other Reaction(s): sleeps a long time, Unknown Penicillins Other Reaction(s): Difficulty breathing at rest, hives, hives, Unknown Propoxyphene Itching and Unknown Tramadol Other Reaction(s): itching Metformin Diarrhea Codeine Rash Other Reaction(s): Nausea SURGICAL HISTORY: Past Surgical History: Procedure Laterality Date CARPAL TUNNEL RELEASE Bilateral CHOLECYSTECTOMY 2005 FOOT SURGERY 1973 needle in foot removed HYSTERECTOMY 1988 KNEE SURGERY Right 2006 NAIL REMOVAL toenails removed x3 VA ARTHROSCOPY KNEE DIAGNOSTIC W/WO SYNOVIAL BX SPX Right 02/24/2020 Dr. Ashraf [place] KNEE SCOPE,DIAGNOSTIC Right 09/30/2020 JAB TONSILLECTOMY 1972 [...] Vaping Use Vaping status: Never Used Substance Use Topics Alcohol use: Never Comment: caffeine intake: more than 4 cups per day of coffee, pop, tea Drug use: Never Depression: Not on file REVIEW OF SYMPTOMS: Review of Systems The review of systems, history and current medications list are all reviewed today. OBJECTIVE: Visit Vitals Ht 5' Wt 207 lb BMI 40.43 kg/m OB Status Unknown Smoking Status Every Day BSA 1.99 m Physical Exam Alert and oriented, no acute distress. Mood and affect are appropriate. RIGHT ELBOW Skin is warm, dry, and intact. There is no soft tissue swelling and no joint effusion. There is no ecchymosis or erythema. The patient has full extension in her right elbow, but lacks full flexion. There is tenderness in the triceps area of her right arm. Tender lateral epicondyle. Mild discomfort with cozen's. LEFT ELBOW Skin is warm, dry, and intact. There is no soft tissue swelling and no joint effusion. There is no ecchymosis or erythema. Flexion and extension are well maintained and there is pain free range of motion. No tenderness to palpation. Ortho Exam Results Three views of the right elbow, AP/lateral/oblique, taken today and saved to the permanent medical record. Joint spaces are preserved, no swelling in the olecranon bursa, no spurring at the olecranon, no fat pad sign, no bony lesions ASSESSMENT AND PLAN: I reviewed the history, physical exam, diagnostic studies, and diagnosis with the patient. Assessment & Plan 1. Triceps tendinosis, mild extensor tendinosis, right elbow She has been provided with a set of forearm stretches to incorporate into her routine. A referral for physical therapy has been made to address the triceps area. If there is no improvement in her condition, an MRI of the elbow will be considered. The area of maximum tenderness at the lateral aspect of the affected elbow was palpated and prepped with alcohol and betadine. Skin was anesthetized with ethyl chloride and a 25 gauge 1 1/2 inch needle was inserted into the extensor origin. A mixture of 0.5 mL of betamethasone and 0.5 mL of 1% plain lidocaine was injected and peppered around the painful area. Needle was withdrawn and a bandaid was applied. The patient tolerated this well. A total of 30 to 39 minutes was spent on this patient encounter which included chart review, check in, nurse triage, history taking, physical examination, diagnostic study review, patient counseling and discussion, entering information into the patient's medical record, and coordinating patient care. Diagnoses and all orders for this visit: Lateral epicondylitis of right elbow - Ambulatory referral to Physical Therapy; Future Right elbow pain - XR elbow 3+ views right - M Inj/Asp: R elbow Triceps tendonitis - Ambulatory referral to Physical Therapy; Future Brice Estrella D.O. Attestation This note was created using voice recognition through [employer] artificial intelligence. documented in this encounter [facility] 08-20-2024 Note [facility] Cardiology Clinic Note Chief Complaint: Patient here to establish care for CAD. She was last seen by cardiology in 2019 by [facility]. She had stress test and echo week. Wore Holter monitor in Jun 2024, patient says for syncope. Says she had syncopal episode in Jun while at work. The week prior to that she had an episode while on the toilet. She saw neurology this morning. Smokes 1 PPD. Gets an intermittent chest pain, lasting seconds at a time. HPI: Virgen Zelaya is a 68 y.o. female History of coronary artery disease, 'myocardial infarction treated in 1999', history of hypertension, dyslipidemia, diabetes, prior right bundle branch block She describes noncardiac, sharp pains that last for seconds to a minute or 2 at rest. Not specifically related to exertion. They resolve spontaneously. She denies orthopnea, paroxysmal external dyspnea, or lower extremity edema. Family history: Brother had bypass surgery, mother has a pacemaker, brother had a history of cerebrovascular accident. Father also has a history of congestive heart failure. Social history: She smokes Past surgical history: Carpal tunnel surgery, cholecystectomy, colonoscopy, hysterectomy, knee surgery, tonsillectomy, trigger finger repair Cardiology ROS: Review of Systems Cardiovascular: Positive for chest pain, dyspnea on exertion, leg swelling and syncope. Musculoskeletal: Positive for arthritis, joint pain and neck pain. All other systems reviewed and are negative. Past Medical History She has no past medical history on file. Surgical History She has no past surgical history on file. Social History She has no history on file for tobacco use, alcohol use, and drug use. Family History No family history on file. Allergies Patient has no allergy information on record. Medications No current outpatient medications on file. Last Recorded Vitals BP 107/73 (BP Location: Right arm, Patient Position: Sitting) Pulse 76 Ht 1.524 m (5') Wt 93.4 kg (206 lb) SpO2 95% BMI 40.23 kg/m??? Physical Examination: GENERAL: alert and oriented x3, well developed, in no acute distress. HEAD: atraumatic, normocephalic. EYES: SHELLI, EOMI. NECK: trachea midline, no JVD present, no carotid bruits present. CARDIAC: S1, S2 present. RRR. No murmur, rubs, or gallops. RESPIRATORY: CTAB, no increased effort of breathing, no rales, rhonchi, or wheezing. ABDOMEN: soft, nontender, nondistended. EXTREMITIES: no lower extremity edema, peripheral pulses are 2+ bilaterally. No rash/skin discoloration present. NEURO: strength/sensation equal and symmetric in bilateral upper and lower extremities. PSYCH: appropriate mood, affect, and judgement. Investigations: Holter study 07/27/2024: Impression: Predominant rhythm is sinus with average rate of 80 bpm Fastest rate of 121 bpm sinus tachycardia slowest rate of 50 bpm 1073 PVCs, 10 couplets Longest episode of sinus tachycardia 24 minutes 41 seconds No atrial fibrillation Echocardiogram 07/2024: Normal global left ventricular systolic function; EF 55 to 60% No significant valvular dysfunction Unable to assess right-sided pressures due to lack of measurable tricuspid regurgitation Lexiscan stress test 08/12/2024: No evidence of ischemic EKG changes following infusion of Lexiscan Nuclear images: Fixed defect in the anterior wall, breast attenuation artifact suspected No reversible ischemia No evidence of transient ischemic dilatation Calculated EF 70% Assessment: Chest pain History of heart attack Syncope Diabetes mellitus History of hypertension Dyslipidemia Current smoker Asthma/COPD Plan: Would continue medical therapy for presumed coronary artery disease including aspirin, moderate intensity statin, and an TELMA inhibitor given her history of diabetes. She is also appropriately on an SGLT2 inhibitor in the form of Jardiance and the GLP-1 receptor agonist in the form of Ozempic. She is not having angina, she has had no recent myocardial infarction's, as such a beta-janes is not strictly indicated, And is better avoided particularly given her underlying lung disease. Her recent echocardiogram and stress test showed no significant abnormalities - her chest pain is unlikely to be related to a coronary etiology: consider noncardiac etiologies for the patient's chest pain symptoms namely musculoskeletal, gastrointestinal and/or pulmonary Aggressive cardiovascular risk factor modification Follow-up with neurology given her recurrent syncopal episodes; she may benefit from a head upright tilt table test and referral to our dysautonomia clinic. Return to clinic in 6 months or sooner should problems arise Ponce Silvestre MD, MPH, [facility], [facility], [facility] Interventional Cardiology Pager Email: [email or web address] 08-20-2024 History of Present illness Narrative Images from the original note were not included. Chief complaint: Loss of consciousness Subjective Virgen Zelaya, 68 y.o., female Patient presents today for a neurologic consult at the request of Aggie Davis CNP for hand tremor and syncope. Patient states she had two episodes of syncope. The first time she was on the toilet and she fell on the floor. She is unsure if she fell asleep. The second episode was July 07 she fell at work and hit her head. She reports LOC but is unsure for how long. She had no recollection of these events. She denies any dizziness or lightheadedness. Patient does have diabetes her last A1C was 10. She does state her sugar was normal during these events. She is experiencing numbness in bilateral hands. She notices this in her right hand more especially when she is smoking a cigarette. She will be smoking or holding a remote and will just drop these items. She does also note a tremor in bilateral hands which is intermittent. She says out of no where she will just start shaking like a leaf. Review of Systems Constitutional: Negative for appetite change, fatigue and fever. Respiratory: Negative for cough, shortness of breath and wheezing. Cardiovascular: Negative for chest pain, palpitations and leg swelling. Gastrointestinal: Negative for abdominal pain, constipation, diarrhea and nausea. Musculoskeletal: Negative for arthralgias, gait problem and myalgias. Neurological: Positive for tremors, syncope and numbness. Negative for dizziness and headaches. Past Medical History: Diagnosis Date Arthritis Arthritis 03/25/2024 Arthropathy of left hip 03/25/2024 Asthma ([facility]) 03/25/2024 Back pain 03/25/2024 Bilateral tinnitus 03/25/2024 Breast mass Chronic low back pain 03/25/2024 Chronic pharyngitis 03/25/2024 Chronic reactive otitis externa of right ear Chronic reactive otitis externa of right ear 03/25/2024 Current smoker 03/25/2024 Added secondary to documentation in Social History. Added secondary to documentation in Social History. Depression ([facility]) Diabetes mellitus ([facility]) 03/25/2024 Disc displacement, lumbar 03/25/2024 Dyslipidemia ([facility]) 03/25/2024 Ear pain, right Greater trochanteric bursitis of left hip 03/25/2024 H/O hypercholesterolemia 03/25/2024 Hearing loss Hearing loss 03/25/2024 Heart disease HLD (hyperlipidemia) ([facility]) HTN (hypertension) ([facility]) HTN (hypertension) ([facility]) 03/25/2024 Hyperlipidemia ([facility]) 03/25/2024 Kidney stone Kidney stone 03/25/2024 Lipoma of back 03/25/2024 Loose body in knee 03/25/2024 PR (myocardial infarction) ([facility]) x2 MMT (medial meniscus tear) 03/25/2024 Myocardial infarct ([facility]) 03/25/2024 Obesity with body mass index 30 or greater 03/25/2024 Otalgia 03/25/2024 Other chondrocalcinosis, right knee 03/25/2024 Other chronic pain 03/25/2024 Paresthesias in left hand 03/25/2024 Percocet use disorder, 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[facility]) Pneumonia Pneumonia 03/25/2024 Pseudogout of right knee 03/25/2024 Purulent bronchitis ([facility]) 03/25/2024 Right leg pain 11/30/2016 Sensorineural hearing loss (SNHL) of both ears 03/25/2024 Stroke ([facility]) 03/25/2024 Tobacco abuse 03/25/2024 Type 2 diabetes mellitus ([facility]) Type 2 diabetes mellitus ([facility]) 03/25/2024 Uterus cancer ([facility]) Work related injury 11/30/2016 Past Surgical History: Procedure Laterality Date CARPAL TUNNEL RELEASE Bilateral CHOLECYSTECTOMY 2005 FOOT SURGERY 1973 needle in foot removed HYSTERECTOMY 1988 KNEE SURGERY Right 2006 NAIL REMOVAL toenails removed x3 VA ARTHROSCOPY KNEE DIAGNOSTIC W/WO SYNOVIAL BX SPX Right 02/24/2020 Dr. Ashraf VA KNEE SCOPE,DIAGNOSTIC Right 09/30/2020 JAB TONSILLECTOMY 1972 TRIGGER FINGER RELEASE 05/09/2016 RLF trigger release DAP TRIGGER FINGER RELEASE Left 06/07/2023 LRF / Thumb - JAB Family History Problem Relation Name Age of Onset Hypertension Mother Heart disease Mother Stroke Mother Mental illness Mother Osteoarthritis Mother Diabetes Father Heart disease Father No Known Problems Sister Heart disease Sibling No Known Problems Son Social History Tobacco Use Smoking status: Every Day Types: Cigarettes Smokeless tobacco: Never Substance Use Topics Alcohol use: Never Comment: caffeine intake: more than 4 cups per day of coffee, pop, tea Allergies: Hydrocodone, Hydrocodone-acetaminophen, Oxycodone-acetaminophen, Penicillins, Propoxyphene, Tramadol, and Codeine Vitals: 08/20/24 0905 BP: 144/80 Pulse: 80 SpO2: 95% Body mass index is 40.43 kg/m . weight: 207 lb Neurologic exam: Mental status: Awake, alert to person, place and time. Recent and remote memory are intact. Language is fluent without aphasia. Attention and concentration are normal. Fund of knowledge is appropriate for level of education. Cranial nerves: CN II: Visual acuity is normal. Visual rodgers full to confrontation. CN III, IV, : pupils equal round and reactive to light. Extraocular movements intact. No ptosis present. CN V: Facial sensation is normal. CN VII: Full and symmetric facial movement. CN VIII: Hearing is normal to finger rub bilaterally: CN IX and X: Palate elevates symmetrically. CN XI: Shoulder shrug is normal bilaterally. CN XII: Tongue is midline without atrophy or fasciculation. Motor: RUE Strength deltoid, , biceps , triceps , wrist extensors , wrist flexor , physician liaison strength 5/5. LUE Strength deltoid , biceps , triceps , wrist extensors , wrist flexor , physician liaison strength 5/5. RLE Strength illopsoas, quadriceps, tibialis anterior, and gastrocnemius strength 5/5. LLE Strength illopsoas, quadriceps, tibialis anterior, and gastrocnemius strength 5/5. Normal tone x4 extremities. Bulk is normal. Sensory: Sensation is intact to light touch throughout Four extremities. Reflexes: RUE biceps reflex 1+ brachioradialis reflex 1+ . LUE biceps reflex 1+ brachioradialis reflex 1+ . RLE knee reflex 0 . LLE knee reflex 0. Mckay's sign negative. Coordination: [id number] testing and rapid alternating movements are normal Gait: Normal Review and summary of old records: CT of the brain without contrast on 07/07/2024: Right posterior scalp hematoma. CT of the cervical spine without contrast on 07/07/2024: no evidence of fracture or traumatic malalignment Assessment/Plan Diagnoses and all orders for this visit: Loss of consciousness ([facility]) It is my impression that the patient has suffered an episode of loss of consciousness. This actually happened twice in the other episode happened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 08/27/2023 02/23/2024 1 1 Chief Complaint and Reason for Visit Chief Complaint L hand Chief Complaint Unknown Chief Complaint Unknown E04.1 Chief Complaint Unknown E04.1 Right thyroid nodule, nodule thyroid isthmus Chief Complaint Admit Date P Susan/ old r leg injury August 19, 2024 9:08am CKD 4 August 31, 2024 1 :41pm Reason for Visit Admit Date Diabetes mellitus, type 2 August 19, 2024 9:08am Hemosiderin pigmentation of lower extremity due to varicose veins August 19, 2024 9:08am Pain August 19, 2024 9 :08am Peripheral edema August 19, 2024 9 :08am Venous insufficiency August 19, 2024 9:08am Venous stasis dermatitis of right lower extremity August 19, 2024 9:08am CKD (chronic kidney disease) stage 4, GF R 15-29 ml/min August 31, 2024 1:41pm Hyperlipidemia August 31, 2024 1 :41pm Hypertensive chronic kidney disease with stage 1 through stage 4 chronic ki August 31, 2024 1:41pm Kidney mass August 31, 2024 1 :41pm Secondary hyperparathyroidism August 312024 1:41pm Type 2 diabetes mellitus wit h diabetic chronic kidney disease August 31, 2024 1:41pm Additional Source Comments INFORMATION SOURCE (unrecogn ized section and content) DATE CREATED AUTHOR 03/11/2020 [facility] DATE CREATED AUTHOR AUTHOR'S ORGANIZ ATION 08/25/[address] [facility] dical Specialist DATE CREATED AUTHOR AUTHOR'S ORGANIZ ATION 01/04/2023 [facility] DATE CREATED AUTHOR AUTHOR'S ORGANIZ ATION 07/11/2024 [facility] DATE CREATED AUTHOR AUTHOR'S ORGANIZ ATION 08/17/2024 [facility] DATE CREATED AUTHOR AUTHOR'S ORGANIZ ATION 08/22/2024 [facility] DATE CREATED AUTHOR AUTHOR'S ORGANIZ ATION 08/28/2024 [facility] DATE CREATED AUTHOR AUTHOR'S ORGANIZ ATION 09/01/[address] [facility] dical Specialists EPIC Patient Care team informatio n (unrecognized section and content) Team Status: Active Member Role Status Dates Aggie Isabel Susan , CAMPUS EXECUTIVE DIRECTOR-C Primary Care Provider Active Team Status: Active Member Role Status Dates Aggie Davis CAMPUS EXECUTIVE DIRECTOR-C Primary Care Provider Active Start: January 25, 2024 Imer Green DO Attending Provider Active Sta rt: January 25, 2024 Team Status: Inactive Member Role Status Dates Aggie Davis CAMPUS EXECUTIVE DIRECTOR-C Primary Care Pr edwin, Attending Provider Active Start: February 14, 2024 End: February 14, 2024 Team Status: Inactive Member Role Status Dates Aggie Davis NP-C Primary Care Provider Active Start: March 26, 2024 End: March 26, 2024 Da Phillip DO Attending Provider Active S tart: March 26, 2024 End: March 26, 2024 Msw Relationship Specialty Start Date End Date Unallocated, [place] Provider [address] [place] [address] PCP - General 12/18/22 Msw Relationship Specialty Start Date End Date Unallocated, Noms Provider [address] [place] [address] PCP - General 12/18/22 Team Status: Inactive Member Role Status Dates Aggie Davis NP-C Primary Care Provider Active Start: August 22, 2023 End: August 22, 2023 Brice Estrella DO Attending Provider Active Sta rt: August 22, 2023 End: August 22, 2023 Team Status: Inactive Member Role Status Dates Da Phillip DO Attending Provider Active S tart: April 13, 2024 End: April 13, 2024 Msw Relationship Specialty Start Date End Date Carter Granger MD [address] [place] [phone] PCP - General Family Medicine 04/10/24 Aggie Davis MD [address] [place] [id number] Referring Physician Family Medicine 04/10/24 Da Phillip DO [address] [place] [address] Otolaryngology 04/10/24 Msw Relationship Specialty Start Date End Date Carter Granger MD [address] [place] [phone] PCP - General Family Medicine 04/10/24 Aggie Davis MD [address] [place] [id number] Referring Physician Family Medicine 04/10/24 Da Phillip DO [address] [place] [address] Otolaryngology 04/10/24 Msw Relationship Specialty Start Date End Date Carter Granger MD [address] [place] [phone] PCP - General Family Medicine 04/10/24 Aggie Davis MD [address] [place] [phone] Referring Physician Family Medicine 04/10/24 Da Phillip DO [address] [place] [address] Otolaryngology 04/10/24 Msw Relationship Specialty Start Date End Date Carter Granger MD [address] [place] [phone] PCP - General Family Medicine 04/10/24 Aggie Davis MD [address] [place] [address] [place] [address] Referring Physician Family Medicine 04/10/24 Da Phillip DO [address] [place] [address] Otolaryngology 04/10/24 Msw Relationship Specialty Start Date End Date Carter Granger MD [address] [place] [phone] PCP - General Family Medicine 04/10/24 Aggie Davis MD [address] [place] [address] Referring Physician Family Medicine 04/10/24 Da Phillip DO [address] [place] [address] Otolaryngology 04/10/24 Msw Relationship Specialty Start Date End Date Unallocated, Sameer Gage MD [address] [place] [phone] PCP - General 12/18/22 Msw Relationship Specialty Start Date End Date Unallocated, Sameer Gage MD [address] [place] [phone] PCP - General 12/18/22 Msw Relationship Specialty Start Date End Date Carter Granger MD [address] [place] [phone] PCP - General Family Medicine 04/10/24 Aggie Davis MD [address] [place] [phone] Referring Physician Family Medicine 04/10/24 Da Phillip DO [address] [place] [address] Otolaryngology 04/10/24 Msw Relationship Specialty Start Date End Date Carter Granger MD [address] [place] [phone] PCP - General Family Medicine 04/10/24 Aggie Davis MD [address] [place] [address] Referring Physician Family Medicine 04/10/24 Da Phillip DO [address] [place] [address] Otolaryngology 04/10/24 Msw Relationship Specialty Start Date End Date Carter Granger MD [address] [place] [phone] PCP - General Family Medicine 04/10/24 Aggie Davis MD [address] [place] [phone] Referring Physician Family Medicine 04/10/24 Da Phillip DO [address] [place] [address] Otolaryngology 04/10/24 Olman De La Rosa DO [address] [place] [phone] Referring Physician Neurology 08/20/24 Msw Relationship Specialty Start Date End Date Carter Granger MD [address] [place] [address], [place] [phone] PCP - General Family Medicine 04/10/24 Aggie Davis MD [address] [place] [address] Referring Physician Family Medicine 04/10/24 Da Phillip DO [address] [place] [address] Otolaryngology 04/10/24 Olman De La Rosa DO [address] [place] [phone] Referring Physician Neurology 08/20/24 Msw Relationship Specialty Start Date End Date Carter Granger MD [address] [place] [address], [place] [phone] PCP - General Family Medicine 04/10/24 Aggie Davis MD [address] [place] [address] Referring Physician Family Medicine 04/10/24 Da Phillip DO [address] [place] [address] Otolaryngology 04/10/24 Olman De La Rosa DO [address] [place] [phone] Referring Physician Neurology 08/20/24 Team Status: Active Member Role Status Dates Aretha Valadez APRN Attending Provider Active Start: August 19, 2024 AVIVA Dey Primary Care Provider Active Start: August 19, 2024 Team Status: Inactive Member Role Status Dates AVIVA Dey Primary Care Provider Active Start: August 31, 2024 End: August 31, 2024 Dinah Sepulveda MD Attending Provider Active Start : August 31, 2024 End: August 31, 2024 Msw Relationship Specialty Start Date End Date Carter Granger MD [address] [place] [phone] PCP - General Family Medicine 04/10/24 Aggie Davis MD [address] [place] [phone] Referring Physician Family Medicine 04/10/24 Da Phillip DO [address] [place] [address] Otolaryngology 04/10/24 Olman De La Rosa DO [address] [place] [phone] Referring Physician Neurology 08/20/24 Reason for Visit (unrecogniz ed section and content) Reason Comments Injections Synvisc one Reason Comments Thyroid Nodule FNA results Reason Comments Thyroid Nodule Lab results Reason Comments Thyroid Nodule FNA Reason Comments Thyroid Nodule Thyroid nodule Reason Comments Pain Goals (unrecognized section and content) Goals may [...] BE BASED ON THE PRIMARY CLINICAL RECORDS. [facility] [employer] [facility]. provides no warranty or guarantee of the accuracy or completeness of information in this document.
== END 2024-09-01 20:44 | disposition home or self-care (01) ==
LOC: SLEEP 20:43
PROVIDERS: PCP Nurse Practitioner Family; Visit Provider Nurse Practitioner Family
DX: G47.33 Obstructive sleep apnea (adult) (pediatric) (principal); F51.01 Primary insomnia
CPT/HCPCS: 95811

== ENCOUNTER 2024-10-30 18:15 | Inpatient (IN) | payer OTHER, MEDICARE, SELFPAY ==
[2024-10-30] VITALS (31 sets, daily range): BP systolic 56–104; BP diastolic 21–67; PULSE 65–118; TEMP 36.4–36.6; O2SAT 83–98; BMI 43.1; BMI 38.6
--- NOTE | 2024-10-30 18:43 | ECG_ITS ---
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 Measurements Intervals [place] Rate: 72 P: 30 NM: 168 QRS: -42 QRSD: 140 T: 19 QT: 430 QTc: 454 Interpretive Statements 1100 Sinus rhythm 1102 Sinus arrhythmia 2450 Right bundle branch block 7200 Abnormal left axis deviation 9150 abnormal ECG Compared to ECG 01/24/2024 23:25:30 Left-axis deviation now present Electronically Signed On 10-31-2024 8:56:50 EDT by HEIDE MACDONALD M.D.
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
[2024-10-30 18:51] LABS: Basophils Absolute Auto 0.1 10^3/uL (0.0-0.1); Basophils Percent Auto 0.4 % (0.2-2.0); Eosinophils Absolute Auto 0.2 10^3/uL (0.0-0.7); Eosinophils Percent Auto 1.2 % (0.9-7.0); Hematocrit 40.2 % (36.0-48.0); Immature Granulocytes Abs Auto 0.06 10^3/uL (0.00-0.03); Immature Granulocytes Pct Auto 0.4 % (0.0-0.5); Lymphocytes Absolute Auto 2.9 10^3/uL (1.2-3.8); Lymphocytes Percent Auto 18.8 % (20.5-60.0); Mean Corpuscular HGB Conc 32.3 g/dL (29.9-35.2); Mean Corpuscular Volume 89.7 fL (81.0-99.0); Mean Platelet Volume 11.5 fL (9.5-13.5); Monocytes Absolute Auto 0.8 10^3/uL (0.3-0.8); Monocytes Percent Auto 5.2 % (1.7-12.0); Neutrophils Absolute Auto 11.3 10^3/uL (1.4-6.5); Platelet Count 221 10^3/uL (150-450); Red Blood Count 4.48 10^6/uL (4.20-5.40); Red Cell Distribution Width 15.8 % (11.0-15.0); White Blood Count 15.3 10^3/uL (4.0-11.0)
[2024-10-30] MEDS: 0.9 % SODIUM CHLORIDE 1,000 ML 1000 ML IV (18:55)
[2024-10-30 19:16] LABS: Alanine Aminotransferase 16 U/L (14-59); Albumin Globulin Ratio 1.1; Albumin Level 3.6 g/dL (3.4-5.0); Alkaline Phosphatase 132 U/L (46-116); Anion Gap 19.8; Aspartate Amino Transferase 15 U/L (15-37); BUN Creatinine Ratio 16.3; Bilirubin Total 0.3 mg/dL (0.2-1.0); Calcium 8.5 mg/dL (8.5-10.1); Carbon Dioxide 17.4 mmol/L (21.0-32.0); Chloride 104 mmol/L (98-107); Estimated GFR (African America 17 (>=60 mL/min/1.73m^2); Estimated GFR (Non-African Ame 14 (>=60 mL/min/1.73m^2); Globulin 3.4 g/dL; Glucose 136 mg/dL (74-106); Magnesium 1.9 mg/dL (1.8-2.4); Potassium 3.2 mmol/L (3.5-5.1); Sodium 138 mmol/L (136-145); Troponin I High Sensitivity 42.1 pg/mL (4.0-51.3)
[2024-10-30 19:17] LABS: Acetone NEGATIVE (NEGATIVE)
[2024-10-30 19:23] LABS: PCO2 VBG 41.6 mmHg (40.0-52.0); pH VBG 7.171 (7.330-7.430)
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
[2024-10-30] MEDS: 0.9 % SODIUM CHLORIDE 1,000 ML 200 ML IV (21:10)
[2024-10-30 22:11] LABS: Bilirubin Urine NEGATIVE (NEGATIVE); Blood Urine MODERATE (NEGATIVE); Clarity Urine CLOUDY (CLEAR); Color Urine YELLOW (YELLOW); Glucose Urine UA NEGATIVE (NEGATIVE); Ketones Urine NEGATIVE (NEGATIVE); Leukocyte Esterase Urine MODERATE (NEGATIVE); Nitrite Urine NEGATIVE (NEGATIVE); Protein Urine 30 mg/dL (NEG/TRACE); Specific Gravity Urine 1.015 (1.005-1.025); Urobilinogen Urine 0.2 EU/dL (0.2-1.0)
[2024-10-30] MEDS: ACETAMINOPHEN 325 MG TABLET 650 MG PO (22:12)
[2024-10-30 22:17] LABS: Bacteria Urine SMALL #/HPF (NONE SEEN); Cast Seen? NONE SEEN #/LPF (NONE SEEN); Crystals Seen? None Seen #/HPF (None Seen); Mucus Urine NONE SEEN (NONE SEEN); RBC Urine NONE SEEN #/HPF (0-2); Squamous Epithelial Cell Urine FEW #/LPF (NONE/RARE); WBC Urine >100 #/HPF (NONE SEEN)
[2024-10-30 22:18] LABS: Urine Culture Indicated YES-FRMC
[2024-10-30] MEDS: CIPROFLOXACIN IN 5 % DEXTROSE 400 MG/200 ML PREMIX 200 MG IV (22:36)
--- OUTSIDE RECORDS SUMMARY | 2024-10-30 22:48 | XMS_ITS | CCD ---
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 Sepulveda on 10-13-2024 Bilirubin Ql (U) Bilirubin.total [Presence] in Urine by Test strip Negative [facility] Bilirubin.direct [Mass/volum e] in Serum or PlasmaOrdered By: Ponce Silvestre on 10-13-2024 Bilirubin.direct [Mass/Vol] Bilirubin.direct [Mass/volume] in Serum or Plasma 0.03-0.18 [facility] Bilirubin.total [Mass/volume ] in Serum or PlasmaOrdered By: Ponce Silvestre on 10-13-2024 Bilirubin [Mass/Vol] Bilirubin.total [Mass/volume] in Serum or Plasma 0.3-1.0 [facility] C-Peptideon 10-13-2024 C-Peptide 1.4 ng/mL Normal 1.1-4.4 The Counts Include [facility] Comment on above: Result Comment: C-Pe ptide reference interval is for fasting patients. Performed at: - [facility] [address] [id number] Assembler Body: Kilo Masterson PhD, Phone: [phone] PERFORMED BY: [place] [address] PATHOLOGIST INVESTIGATOR [employer] NISHANT MORLEY M.D. Performed By: #### L IPID #### [place] [address] [place] #### CPEP #### [facility] , Calcium [Mass/volume] in Ser um or PlasmaOrdered By: Mathieu Naqvi on 10-13-2024 Calcium [Mass/Vol] Calcium [Mass/volume ] in Serum or Plasma 8.6-10.3 [facility] Carbon dioxide, total [Moles /volume] in Serum or PlasmaOrdered By: Mathieu Naqvi on 10-13-2024 CO2 [Moles/Vol] Carbon dioxide, tota l [Moles/volume] in Serum or Plasma 21.0-31.0 [facility] Chloride [Moles/volume] in S yoav or PlasmaOrdered By: Mathieu Naqvi on 10-13-2024 Chloride [Moles/Vol] Chloride [Moles/volume] in Serum or Plasma 98-107 [facility] Cholesterol [Mass/volume] in Serum or PlasmaOrdered By: Mathieu Naqvi on 10-13-2024 Cholesterol [Mass/Vol] Cholesterol [Mass/volume] in Serum or Plasma Low 140-200 [facility] Comment on above: Chol less than 200 m g/dl low riskChol 201-239 mg/dl borderline riskChol 240 mg/dl and greater high risk Cholesterol in HDL [Mass/vol ume] in Serum or PlasmaOrdered By: Mathieu Naqvi on 10-13-2024 Cholesterol in HDL [Mass/Vol] Serum or plasma high density lipoprotein (HDL) cholesterol measurement 23- [facility] Comment on above: HDL CHOL ATP-III CLA SSIFICATION Cardiovascular RiskHDL > or equal to 60 mg/dL LOWHDL < 40 mg/dL HIGH Cholesterol in LDL Calc [Mas s/Vol]Ordered By: Mathieu Naqvi on 10-13-2024 Cholesterol in LDL [Mass/Vol] Cholesterol in LDL [Mass/volume] in Serum or Plasma by calculation 0-100 [facility] Comment on above: LDL ATP III CLASSIFI CATIONLDL less than 100 mg/dL OptimalLDL 100-129 mg/dL Near or above optimalLDL 130-159 mg/dL Borderline highLDL 160-189 mg/dL HighLDL greater than 189 mg/dL Very high Cholesterol in VLDL Calc [Ma ss/Vol]Ordered By: Mathieu Naqvi on 10-13-2024 Cholesterol in VLDL [Mass/Vol] Cholesterol in VLDL [Mass/volume] in Serum or Plasma by calculation [facility] Color Auto (U)Ordered By: Ab elias Sepulveda on 10-13-2024 Color (U) Color of Urine by Auto Yellow Fi [facility] Creatinine [Mass/volume] in Serum or PlasmaOrdered By: Mathieu Naqvi on 10-13-2024 Creatinine [Mass/Vol] Creatinine [Mass/volume] in Serum or Plasma High 0.60-1.20 [facility] Creatinine [Mass/volume] in UrineOrdered By: Mathieu Naqvi on 10-13-2024 Creatinine (U) [Mass/Vol] Creatinine [Mass/volume] in Urine [facility] Comment on above: No reference range e stablished Dipstick and Microscopicon 0 10-13-2024 Appearance (U) Cloudy Critically abnormal Clear The Counts Include [facility] Comment on above: Order Comment: Name Collection Type:: Clean-Voided Midstream Performed By: #### A JALEESA RAPHAEL PROCRERAT #### [address] Bacteria,Urine None Seen Normal None Seen The Counts Include [facility] Comment on above: Order Comment: Name Collection Type:: Clean-Voided Midstream Performed By: #### A JALEESA RAPHAEL, PROCRERAT #### [facility] [address] [place] [address] [place] Bilirubin,Urine Negative Normal Negative The Counts Include [facility] Comment on above: Order Comment: Name Collection Type:: Clean-Voided Midstream Performed By: #### A DDONUAPLUS, CUU, PROCRERAT #### [address] Color (U) Light-Yellow Normal Yellow The Counts Include [facility] Comment on above: Order Comment: Name Collection Type:: Clean-Voided Midstream Performed By: #### A DDONUAPLUS, CUU, PROCRERAT #### [address] Glucose Ql (U) 1000 mg/dL High Normal The Counts Include [facility] Comment on above: Order Comment: Name Collection Type:: Clean-Voided Midstream Performed By: #### A DDONUAPLUS, CUU, PROCRERAT #### [address] Hyaline Casts,Urine None Normal 0-8 The Counts Include [facility] Comment on above: Order Comment: Name Collection Type:: Clean-Voided Midstream Performed By: #### A DDONUAPLUS, CUU, PROCRERAT #### [address] Ketones Ql (U) Negative Normal Negative The Counts Include [facility] Comment on above: Order Comment: Name Collection Type:: Clean-Voided Midstream Performed By: #### A DDONUAPLUS, CUU, PROCRERAT #### [address] Leukocyte esterase Test strip Ql (U) 3+ High Negative The Counts Include [facility] Comment on above: Order Comment: Name Collection Type:: Clean-Voided Midstream Performed By: #### A DDONUAPLUS, CUU, PROCRERAT #### [place] [address] [place] Mucus,Urine Rare Normal The Counts Include [facility] Comment on above: Order Comment: Name Collection Type:: Clean-Voided Midstream Result Comment: PERF ORMED BY: [place] [address] PATHOLOGIST INVESTIGATOR [employer] NISHANT MORLEY M.D. Performed By: #### A DDONUAPLUS, CUU, PROCRERAT #### [place] [address] [place] Nitrite,Urine Negative Normal Negative The Counts Include [facility] Comment on above: Order Comment: Name Collection Type:: Clean-Voided Midstream Performed By: #### A DDONUAPLUS, CUU, PROCRERAT #### [place] [address] [place] Occult Blood,Urine Negative Normal Negative The Counts Include [facility] Comment on above: Order Comment: Name Collection Type:: Clean-Voided Midstream Performed By: #### A DDONUAPLUS, CUU, PROCRERAT #### [place] [address] [place] pH (U) 6.5 [pH] Normal 5.0-9.0 The Counts Include [facility] Comment on above: Order Comment: Name Collection Type:: Clean-Voided Midstream Performed By: #### A DDONUAPLUS, CUU, PROCRERAT #### [place] [address] [place] Protein,Urine Negative Normal Negative The Counts Include [facility] Comment on above: Order Comment: Name Collection Type:: Clean-Voided Midstream Performed By: #### A DDONUAPLUS, CUU, PROCRERAT #### [place] [address] [place] RBC,Urine 1-2 Normal 0-4 The Counts Include [facility] Comment on above: Order Comment: Name Collection Type:: Clean-Voided Midstream Performed By: #### A DDONUAPLUS, CUU, PROCRERAT #### [place] [address] [place] Specificy [place],Urine 1.013 Normal 1.001-1.030 The Counts Include [facility] Comment on above: Order Comment: Name Collection Type:: Clean-Voided Midstream Performed By: #### A DDONUAPLUS, CUU, PROCRERAT #### [facility] [address] Squamous Epithelial Cell,Urine 10-19 High 0-2 The Counts Include [facility] Comment on above: Order Comment: Name Collection Type:: Clean-Voided Midstream Performed By: #### A DDONUAPLUS, CUU, PROCRERAT #### [facility] [address] [place] [address] Urobilinogen,Urine Normal Normal Normal The Counts Include [facility] Comment on above: Order Comment: Name Collection Type:: Clean-Voided Midstream Performed By: #### A DDONUAPLUS, CUU, PROCRERAT #### [address] WBC,Urine 20-49 High 0-4 The Counts Include [facility] Comment on above: Order Comment: Name Collection Type:: Clean-Voided Midstream Performed By: #### A DDONUAPLUS, CUU, PROCRERAT #### [address] Epithelial cells.squamous [# /area] in Urine sediment by Automated countOrdered By: iDnah Sepulveda on 10-13-2024 Epithelial cells.squamous Auto (Urine sed) [#/Area] Epithelial cells.squamous [#/area] in Urine sediment by Automated count High 0-2 [facility] Erythrocyte distribution wid th Auto (RBC) [Ratio]Ordered By: Dinah Sepulveda on 10-13-2024 Erythrocyte distribution width (RBC) [Ratio] Erythrocyte distribution width [Ratio] by Automated count 11.9-15.3 [facility] Erythrocytes [#/area] in Uri ne sediment by Automated countOrdered By: Dinah Sepulveda on 10-13-2024 RBC Auto (Urine sed) [#/Area] Erythrocytes [#/area] in Urine sediment by Automated count 0-4 [facility] Globulin Calc (S) [Mass/Vol] Ordered By: Ponce Silvestre on 10-13-2024 Globulin (S) [Mass/Vol] Serum globulin measurement by calculation (mass/volume) [facility] Glucose [Mass/volume] in Ser um or PlasmaOrdered By: Mathieu Naqvi on 10-13-2024 Glucose [Mass/Vol] Glucose [Mass/volume ] in Serum or Plasma High 70-100 [facility] Comment on above: ADA recommended refe rence rangeRandom Glucose Reference Range is dependent on time and content of last meal. Glucose of more than 200 mg/dL in a nonstressed, ambulatory subject supports the diagnosis of Diabetes Mellitus. Glucose [Mass/volume] in Uri ne by Test stripOrdered By: Dinah Sepulveda on 10-13-2024 Glucose Test strip (U) [Mass/Vol] Glucose [Mass/volume] in Urine by Test strip High Normal [facility] Hematocrit Auto (Bld) [Volum e fraction]Ordered By: Dinah Sepulveda on 10-13-2024 Hematocrit (Bld) [Volume fraction] Hematocrit [Volume Fraction] of Blood by Automated count 34.0-46.4 [facility] Hemoglobin Test strip Ql (U) Ordered By: Dinah Sepulveda on 10-13-2024 Hemoglobin Ql (U) Hemoglobin [Presence ] in Urine by Test strip Negative [facility] Hemoglobin [Mass/volume] in BloodOrdered By: Dinah Sepulveda on 10-13-2024 Hemoglobin (Bld) [Mass/Vol] Hemoglobin [Mass/volume] in Blood 11.8-15.4 [facility] Hemogram CBC Without Diffon 10-13-2024 Erythrocyte distribution width (RBC) [Ratio] 15.3 % Normal 11.9-15.3 The Counts Include [facility] Comment on above: Performed By: #### U JAMSHID, MG, PTH, CBCNO ####[facility] [id number] Hematocrit (Bld) [Volume fraction] 37.7 % Normal 34.0-46.4 The Counts Include [facility] Comment on above: Performed By: #### U JAMSHID, MG, PTH, CBCNO ####[facility] [id number] Hemoglobin (Bld) [Mass/Vol] 12.7 g/dL Normal 11.8-15.4 The Counts Include [facility] Comment on above: Performed By: #### U JAMSHID, MG, PTH, CBCNO ####[place] [id number] [place] [id number] [facility] MCH (RBC) [Entitic mass] 29.3 pg Normal 24.7-34.3 The Counts Include [address] [facility] Comment on above: Performed By: #### U JAMSHID, MG, PTH, CBCNO ####[place] [id number] [facility] MCV (RBC) [Entitic vol] 87.1 fL Normal 80-100 T he Counts Include [facility] Comment on above: Performed By: #### U JAMSHID, MG, PTH, CBCNO ####[place] [id number] [facility] Mean Corpuscular HGB Conc 33.6 g/dL Normal 32.0-35.0 The Counts Include [address] [facility] Comment on above: Performed By: #### U JAMSHID, MG, PTH, CBCNO ####[address] Platelet mean volume (Bld) [Entitic vol] 9.9 fL Normal 6.3-10.7 The Counts Include [facility] Comment on above: Result Comment: PERF ORMED BY: [facility] [address] [place] [address] PATHOLOGIST INVESTIGATOR [employer] NISHANT MORLEY M.D. Performed By: #### U JAMSHID, MG, PTH, CBCNO ####[place] [id number] [facility] Platelets (Bld) [#/Vol] 192 10*3/uL Normal 150-450 The Counts Include [facility] Comment on above: Performed By: #### U JAMSHID, MG, PTH, CBCNO ####[place] [id number] [facility] RBC (Bld) [#/Vol] 4.33 10*6/uL Normal 3.60-5.00 The Counts Include [facility] Comment on above: Performed By: #### U JAMSHID, MG, PTH, CBCNO ####[address] WBC (Bld) [#/Vol] 8.4 10*3/uL Normal 3.8-11.6 The Counts Include [facility] Comment on above: Performed By: #### U JAMSHID, MG, PTH, CBCNO ####[facility] Hepatic Panelon 10-13-2024 Albumin [Mass/Vol] 3.8 g/dL Normal 3.5-5.7 The Counts Include [facility] Comment on above: Performed By: #### H EPATIC #### [address] Albumin/Globulin [Mass ratio] 1.5 {ratio} Normal The Counts Include [address] [facility] Comment on above: Performed By: #### H EPATIC #### [address] ALP [Catalytic activity/Vol] 99 U/L Normal 34-104 The Counts Include [facility] Comment on above: Result Comment: PERF ORMED BY: [place] [address] PATHOLOGIST INVESTIGATOR [employer] NISHANT MORLEY M.D. Performed By: #### H EPATIC #### [address] ALT [Catalytic activity/Vol] 11 U/L Normal 7-52 The Counts Include [facility] Comment on above: Performed By: #### H EPATIC #### [address] AST [Catalytic activity/Vol] 14 U/L Normal 13-39 The Counts Include [address] [facility] Comment on above: Performed By: #### H EPATIC #### [address] Bilirubin [Mass/Vol] 0.4 mg/dL Normal 0.3-1.0 The Counts Include [address] [facility] Comment on above: Performed By: #### H EPATIC #### [address] Bilirubin,Indirect 0.3 mg/dL Normal The Counts Include [address] [facility] Comment on above: Performed By: #### H EPATIC #### [address] [address] [place] Bilirubin.indirect [Mass/Vol] 0.10 mg/dL Normal 0.03-0.18 The Counts Include [address] [facility] Comment on above: Performed By: #### H EPATIC #### [facility] [address] Globulin (S) [Mass/Vol] 2.6 g/dL Normal T he Counts Include [address] [facility] Comment on above: Performed By: #### H EPATIC #### [facility] [address] Protein [Mass/Vol] 6.4 g/dL Normal 6.4-8.9 The Counts Include [address] [facility] Comment on above: Performed By: #### H EPATIC #### [facility] [address] Hyaline casts [#/area] in Ur ine sediment by Automated countOrdered By: Dinah Sepulveda on 10-13-2024 Hyaline casts Auto (Urine sed) [#/Area] Hyaline casts [#/area] in Urine sediment by Automated count 0-8 [facility] Ketones Test strip Ql (U)Ord ered By: Dinah Sepulveda on 10-13-2024 Ketones Ql (U) Ketones [Presence] i n Urine by Test strip Negative [facility] Leukocyte esterase [Presence ] in Urine by Test stripOrdered By: Dinah Sepulveda on 10-13-2024 Leukocyte esterase Test strip Ql (U) Leukocyte esterase [Presence] in Urine by Test strip High Negative [facility] Leukocytes [#/area] in Urine sediment by Automated countOrdered By: Dinah Sepulveda on 10-13-2024 WBC Auto (Urine sed) [#/Area] Leukocytes [#/area] in Urine sediment by Automated count High 0-4 [facility] Leukocytes [#/volume] correc graham for nucleated erythrocytes in Blood by Automated counOrdered By: Dinah Sepulveda on 10-13-2024 WBC corrected for nucl RBC Auto (Bld) [#/Vol] Leukocytes [#/volume] corrected for nucleated erythrocytes in Blood by Automated coun 3.8-11.6 [facility] Lipid Panelon 10-13-2024 Cholesterol [Mass/Vol] 95 mg/dL Low 140-200 Th e Counts Include [address] [facility] Comment on above: Result Comment: Chol less than 200 mg/dl low risk Chol 201-239 mg/dl borderline risk Chol 240 mg/dl and greater high risk Performed By: #### L IPID #### [address] #### CPEP #### [facility] , Cholesterol in HDL [Mass/Vol] 28 mg/dL Normal 23-92 The Counts Include [address] [facility] Comment on above: Result Comment: HDL CHOL ATP-III CLASSIFICATION Cardiovascular Risk HDL > or equal to 60 mg/dL LOW HDL < 40 mg/dL HIGH Performed By: #### L IPID #### [facility] [address] [place] [address] #### CPEP #### [facility] , Cholesterol.total/Vivian sterol in HDL [Mass ratio] 3.4 {ratio} Normal <5.0 The Counts Include [address] [facility] Comment on above: Result Comment: PERF ORMED BY: [place] [address] PATHOLOGIST INVESTIGATOR [employer] NISHANT MORLEY M.D. Performed By: #### L IPID #### [address] #### CPEP #### [facility] , LDL Cholesterol,Calculated 48 mg/dL Normal 0-100 The Counts Include [address] [facility] Comment on above: Result Comment: LDL ATP III CLASSIFICATION LDL less than 100 mg/dL Optimal LDL 100-129 mg/dL Near or above optimal LDL 130-159 mg/dL Borderline high LDL 160-189 mg/dL High LDL greater than 189 mg/dL Very high Performed By: #### L IPID #### [facility] [address] [place] [address] [place] #### CPEP #### [facility] , Triglyceride w/Reflex 97 mg/dL Normal 0-149 The Counts Include [address] [facility] Comment on above: Result Comment: TRIG ATP III CLASSIFICATION TRIG less than 150 mg/dL Normal TRIG 150-199 mg/dL Borderline high TRIG 200-500 mg/dL High TRIG greater than 500 mg/dL Very high Standard traceable to the Center for Disease Conrtrol and Prevention (CDC) test method. Performed By: #### L IPID #### [facility] [address] [place] [address] [place] #### CPEP #### [facility] , VLDL CHOLESTEROL 19 mg/dL Normal The Counts Include [address] [facility] Comment on above: Performed By: #### L IPID #### [facility] [address] [place] [address] [place] #### CPEP #### [facility] , MCH Auto (RBC) [Entitic mass ]Ordered By: Dinah Sepulveda on 10-13-2024 MCH (RBC) [Entitic mass] MCH [Entitic mass] by Automated count 24.7-34.3 [facility] MCHC Auto (RBC) [Mass/Vol]Or dered By: Dinah Sepulveda on 10-13-2024 MCHC (RBC) [Mass/Vol] MCHC [Mass/volume] by Automated count 32.0-35.0 [facility] MCV Auto (RBC) [Entitic vol] Ordered By: Dinah Sepulveda on 10-13-2024 MCV (RBC) [Entitic vol] MCV [Entitic vol ume] by Automated count 80-100 [facility] Magnesiumon 10-13-2024 Magnesium [Mass/Vol] 2.1 mg/dL Normal 1.9-2.7 The Counts Include [address] [facility] Comment on above: Performed By: #### U JAMSHID, MG, PTH, CBCNO ####[facility] [id number] Magnesium [Mass/volume] in S yoav or PlasmaOrdered By: Dinah Sepulveda on 10-13-2024 Magnesium [Mass/Vol] Magnesium [Mass/volume] in Serum or Plasma 1.9-2.7 [facility] MicroAlb Creat Ratio,Uon Albumin DL <= 20 mg/L (U) [Mass/Vol] 0.7 mg/dL Normal 0.0-1.8 The Counts Include [address] [facility] Comment on above: Performed By: #### U RMACRERAT ####[facility] [id number] [place] [address] [facility] Microalbumin/Creatinine Ratio 9.2 mg/g Normal 0.0-30.0 The Counts Include [address] [facility] Comment on above: Result Comment: 30-3 00 mg/g indicates an increased risk for diabetic nephropathy. Greater than 300 mg/g is consistent with clinical nephropathy. (Am. J. Kidney Disease 1995, 25:107) PERFORMED BY: [facility] [address] [place] [address] PATHOLOGIST INVESTIGATOR [employer] NISHANT MORLEY M.D. Performed By: #### U RMACRERAT ####[facility] [id number] [place] [address] [facility] Microalbumin [Mass/volume] i n UrineOrdered By: Mathieu Naqvi on 10-13-2024 Albumin DL <= 20 mg/L (U) [Mass/Vol] Microalbumin [Mass/volume] in Urine 0.0-1.8 [facility] Mucus [Presence] in Urine by AutomatedOrdered By: Dinah Sepulveda on 10-13-2024 Mucus Auto Ql (U) Mucus [Presence] in Urine by Automated [facility] Nitrite Test strip Ql (U)Ord ered By: Dinah Sepulveda on 10-13-2024 Nitrite Ql (U) Nitrite [Presence] i n Urine by Test strip Negative [facility] No Panel InformationOrdered By: Mathieu Naqvi on 10-13-2024 Estimated GFR (CKD-EPI) 34.741 mL/Min [facility] Creatinine Clearance (Chem N/A [facility] Parathyrin.intact [Mass/volu me] in Serum or PlasmaOrdered By: Dinah Sepulveda on 10-13-2024 Parathyrin.intact [Mass/Vol] Parathyrin.intact [Mass/volume] in Serum or Plasma High 12-88 [facility] Parathyroid Hormone Intacton 10-13-2024 Parathyroid Hormone Intact 224.1 pg/mL High The Counts Include [address] [facility] Comment on above: Result Comment: PERF ORMED BY: [facility] [address] [place] [address] PATHOLOGIST INVESTIGATOR [employer] NISHANT MORLEY M.D. Performed By: #### U JAMSHID, MG, PTH, CBCNO ####[facility] [id number] Phosphate [Mass/volume] in S yoav or PlasmaOrdered By: Mathieu Naqvi on 10-13-2024 Phosphate [Mass/Vol] Phosphate [Mass/volume] in Serum or Plasma 2.5-4.5 [facility] Platelet mean volume Auto (B ld) [Entitic vol]Ordered By: Dinah Sepulveda on 10-13-2024 Platelet mean volume (Bld) [Entitic vol] Platelet mean volume [Entitic volume] in Blood by Automated count 6.3-10.7 [facility] [facility] Platelets Auto (Bld) [#/Vol] Ordered By: Dinah Sepulveda on 10-13-2024 Platelets (Bld) [#/Vol] Platelets [#/vol ume] in Blood by Automated count 150-450 [facility] Potassium [Moles/volume] in Serum or PlasmaOrdered By: Mathieu Naqvi on 10-13-2024 Potassium [Moles/Vol] Potassium [Moles/volume] in Serum or Plasma 3.5-5.1 [facility] Protein Creat Ratio Ur Rando mon 10-13-2024 Creatinine, Urine (Random) 76.00 mg/dL Normal The Counts Include [facility] Comment on above: Result Comment: No r eference range established Performed By: #### A DDONUAPLUS, CUU, PROCRERAT #### [facility] [address] [place] [address] [place] Performed By: #### U RMACRERAT ####[facility] [id number] Protein (U) [Mass/Vol] 17 mg/dL High 0-9 Th e Counts Include 234 [facility] Comment on above: Performed By: #### A DDONUAPLUS, CUU, PROCRERAT #### [facility] [address] [place] [address] Urine Protein/Creatinine Ratio 224 mg/g{Cre} High 0-200 The Counts Include [facility] Comment on above: Result Comment: PERF ORMED BY: [place] [address] PATHOLOGIST INVESTIGATOR [employer] NISHANT MORLEY M.D. Performed By: #### A DDONJALEESA ACEVEDO, PROCRERAT #### [facility] [address] [place] [address] Protein Test strip (U) [Mass /Vol]Ordered By: Dinah Sepulveda on 10-13-2024 Protein (U) [Mass/Vol] Protein [Mass/vol ume] in Urine by Test strip Negative [facility] Protein [Mass/volume] in Ser um or PlasmaOrdered By: Ponce Silvestre on 10-13-2024 Protein [Mass/Vol] Protein [Mass/volume ] in Serum or Plasma 6.4-8.9 [facility] Protein [Mass/volume] in Uri neOrdered By: Dinah Sepulveda on 10-13-2024 Protein (U) [Mass/Vol] Protein [Mass/vol ume] in Urine High 0-9 [facility] RBC Auto (Bld) [#/Vol]Ordere d By: Dinah Sepulveda on 10-13-2024 RBC (Bld) [#/Vol] Erythrocytes [#/volume] in Blood by Automated count 3.60-5.00 [facility] Renal Function Panelon 10-13 Albumin [Mass/Vol] 3.8 g/dL Normal 3.5-5.7 The Counts Include 234 [facility] Comment on above: Performed By: #### V [id number], RENAL #### [facility] [address] [place] [address] Anion gap [Moles/Vol] 11.8 mmol/L Normal 6.0-15.0 Th e Counts Include 234 [facility] Comment on above: Performed By: #### V [id number], RENAL #### [facility] [address] [place] [address] Calcium [Mass/Vol] 8.8 mg/dL Normal 8.6-10.3 The Counts Include 234 [facility] Comment on above: Performed By: #### V [id number], RENAL #### [facility] [address] [place] [address] [place] Chloride [Moles/Vol] 106 mmol/L Normal 98-107 The Counts Include 234 [facility] Comment on above: Performed By: #### V [id number], RENAL #### [facility] [address] [place] [address] [place] CO2 [Moles/Vol] 27.1 mmol/L Normal 21.0-31.0 The Counts Include 234 [facility] Comment on above: Performed By: #### V [id number], RENAL #### [facility] [address] Creatinine [Mass/Vol] 1.59 mg/dL High 0.60-1.20 The Counts Include 234 [facility] Comment on above: Performed By: #### V [id number], RENAL #### [facility] [address] [place] [address] [place] Estimated GFR 34.741 mL/Min Normal The Counts Include 234 [facility] Comment on above: Performed By: #### V [id number], RENAL #### [facility] [address] [place] [address] [place] Glucose [Mass/Vol] 108 mg/dL High 70-100 The Counts Include 234 [facility] Comment on above: Result Comment: [place] Glucose Reference Range is dependent on time and content of last meal. Glucose of more than 200 mg/dL in a nonstressed, ambulatory subject supports the diagnosis of Diabetes Mellitus. ADA recommended reference range Performed By: #### V [id number], RENAL #### [facility] [address] [place] [address] [place] Phosphate [Mass/Vol] 3.4 mg/dL Normal 2.5-4.5 The Counts Include 234 [facility] Comment on above: Performed By: #### V [id number], RENAL #### [facility] [address] [place] [address] [place] Potassium [Moles/Vol] 3.9 mmol/L Normal 3.5-5.1 The Counts Include 234 [facility] Comment on above: Performed By: #### V [id number], RENAL #### [facility] [address] Sodium [Moles/Vol] 141 mmol/L Normal 136-145 The Counts Include 234 [facility] Comment on above: Performed By: #### V [id number], RENAL #### [facility] [address] Urea nitrogen [Mass/Vol] 24 mg/dL Normal 7-25 The Counts Include 234 [facility] Comment on above: Performed By: #### V [id number], RENAL #### [facility] [address] Serum or plasma albumin/glob ulin mass ratioOrdered By: Ponce Silvestre on 10-13-2024 Albumin/Globulin [Mass ratio] Serum or plasma albumin/globulin mass ratio [facility] Serum or plasma anion gap de terminationOrdered By: Mathieu Naqvi on 10-13-2024 Anion gap [Moles/Vol] Serum or plasma an ion gap determination 6.0-15.0 [facility] Serum or plasma non-glucuron idated bilirubin measurement (mass/volume)Ordered By: Ponce Silvestre on 10-13-2024 Bilirubin.indirect [Mass/Vol] Serum or plasma non-glucuronidated bilirubin measurement (mass/volume) [facility] Serum or plasma total choles terol/high density lipoprotein (HDL) cholesterol mass ratOrdered By: Mathieu Naqvi on 10-13-2024 Cholesterol.total/Vivian sterol in HDL [Mass ratio] Serum or plasma total cholesterol/high density lipoprotein (HDL) cholesterol mass rat <5.0 [facility] Sodium [Moles/volume] in Ser um or PlasmaOrdered By: Mathieu Naqvi on 10-13-2024 Sodium [Moles/Vol] Sodium [Moles/volume ] in Serum or Plasma 136-145 [facility] Specific gravity Test strip (U) [Rel density]Ordered By: Dinah Sepulveda on 10-13-2024 Specific gravity (U) [Rel density] Specific gravity of Urine by Test strip 1.001-1.030 [facility] Triglyceride [Mass/volume] i n Serum or PlasmaOrdered By: Mathieu Naqvi on 10-13-2024 Triglyceride [Mass/Vol] Triglyceride [Mass/volume] in Serum or Plasma 0-149 [facility] Comment on above: TRIG ATP III CLASSIF ICATIONTRIG less than 150 mg/dL NormalTRIG 150-199 mg/dL Borderline highTRIG 200-500 mg/dL High TRIG greater than 500 mg/dL Very highStandard traceable to the Center for Disease Conrtrol and Prevention (CDC) test method. Urate [Mass/volume] in Serum or PlasmaOrdered By: Dinah Sepulveda on 10-13-2024 Urate [Mass/Vol] Urate [Mass/volume] in Serum or Plasma High 2.3-6.6 [facility] Urea nitrogen [Mass/volume] in Serum or PlasmaOrdered By: Mathieu Naqvi on 10-13-2024 Urea nitrogen [Mass/Vol] Urea nitrogen [Mass/volume] in Serum or Plasma 7-25 [facility] Uric Acidon 10-13-2024 Urate [Mass/Vol] 7.7 mg/dL High 2.3-6.6 The Counts Include 234 [facility] Comment on above: Result Comment: PERF ORMED BY: [facility] [address] [place] [address] PATHOLOGIST INVESTIGATOR [employer] NISHANT MORLEY M.D. Performed By: #### U JAMSHID, MG, PTH, CBCNO ####[place] [id number] [facility] Urine Cultureon 10-13-2024 Bacteria identified Cx Nom (U) >100,000 colonies/ml mixed bacterial skin contaminants 2 Days PERFORMED BY: [facility] [address] [place] [address] PATHOLOGIST INVESTIGATOR [employer] NISHANT MORLEY M.D. Normal The Counts Include 234 [facility] Comment on above: Performed By: #### A DDONUAPLUS, CUU, PROCRERAT ####[place] [id number] [facility] Urine microalbumin/creatinin e mass ratioOrdered By: Mathieu Naqvi on 10-13-2024 Albumin/Creatinine DL <= 20 mg/L (U) [Mass ratio] Urine microalbumin/creatinin e mass ratio 0.0-30.0 [facility] Comment on above: 30-300 mg/g indicate s an increased risk for diabetic nephropathy. Greater than 300 mg/g is consistent with clinical nephropathy. (Am. J. Kidney Disease 1995, 25:107) Urine protein/creatinine rat ioOrdered By: Dinah Sepulveda on 10-13-2024 Protein/Creatinine (U) [Ratio] Urine protein/creatinine ratio High 0-200 [facility] Urobilinogen Test strip (U) [Mass/Vol]Ordered By: Dinah Sepulveda on 10-13-2024 Urobilinogen (U) [Mass/Vol] Urobilinogen [Mass/volume] in Urine by Test strip Normal [facility] Vitamin D 25 Hydroxy Totalon 10-13-2024 Vitamin D 25 Hydroxy Total 15.0 ng/mL Low 30-100 The Counts Include [address] [facility] Comment on above: Result Comment: [place] MIN D STATUS 25([place])VITAMIN D RANGE (ng/mL) Deficient <20 Insufficient 20 to <30 Sufficient 30 to 100 Reference: Luann Almanza, Merline FERRER, et al. Evaluation,treatment, and prevention of vitamin D deficiency; an Endocrine Society clinical practice guideline. JCEM. 2010; 96(7):1911-30. PERFORMED BY: [place] [address] PATHOLOGIST INVESTIGATOR [employer] NISHANT MORLEY M.D. Performed By: #### V [id number], RENAL #### [address] Vitamin D+Metabolites [Mass/ volume] in Serum or PlasmaOrdered By: Mathieu Naqvi on 10-13-2024 Vitamin D+Metabolites [Mass/Vol] Vitamin D+Metabolites [Mass/volume] in Serum or Plasma Low 30-100 [facility] Comment on above: VITAMIN D STATUS 25( [place])VITAMIN D RANGE (ng/mL) Deficient <20 Insufficient 20 to <30Sufficient 30 to 100Reference: Luann Almanza, Merline FERRER, et al. Evaluation,treatment, and prevention of vitamin D deficiency; an Endocrine Society clinical practice guideline. JCEM. 2010; 96(7):1911-30. pH Test strip (U)Ordered By: Dinah Sepulveda on 10-13-2024 pH (U) pH of Urine by Test strip 5.0-9.0 [facility] MR head/brain wo/w conon MR head/brain wo/w con [facility] [address] MRI Report Signed Patient: Virgen Gonzales MR# : [id number] : 1955 Acct:[id number] Age/Sex: 69 / F ADM Date: 09/14/24 Loc: [facility] Room: Type: [facility] Attending Dr: Olman De La Rosa DO Copies to: Olman De La Rosa DO Ordering Provider: Olman De La Rosa DO Date of Service: 09/14/24 MR/MR head/brain wo/w con: R40.20 MR head/brain wo/w con 09/14/2024 4:25 PM SIGN AND SYMPTOMS: Loss of consciousness, dizziness PROTOCOL: Multiplanar multisequence MR images of the brain with and without IV contrast CONTRAST: 20 mL of intravenous ProHance COMPARISON: 04/12/2023 FINDINGS: Extra axial spaces: There is age-related cortical atrophy. Hemorrhage: None. Ventricular system: Within normal limits. Basal cisterns: Within normal limits and not effaced. Cerebral parenchyma: T2 and FLAIR hyperintense signal is noted in the periventricular and subcortical white matter consistent with chronic microvascular ischemic change. No abnormal postcontrast enhancement. Midline shift: None.. Cerebellum: Within normal limits. Brainstem: Within normal limits. OTHER: Calvarium: Normal marrow signal. Vascular system: Satisfactory flow voids within the anterior and posterior circulation. Visualized Paranasal sinuses: Within normal limits. Visualized Orbits: Within normal limits. Visualized upper cervical spine: Within normal limits. Sella and skull base: Within normal limits. MR/MR head/brain wo/w con IMPRESSION: No acute intracranial pathology or abnormal postcontrast enhancement. Chronic age-related neurodegenerative changes are noted as above. Impression dictated by: Jacinto Gallagher M.D.09/14/2024 5:21 PM Dictation Location: [facility]--19 Transcribed By: KATHIE 09/14/24 1721 Dictated By: Jacinto Gallagher II, MD 09/14/24 1714 Signed By: 09/14/24 1721 Normal The Counts Include 234 [facility] Magnetic resonance imaging r eportOrdered By: Jacitno Gallagher on 09-14-2024 Study report [facility] [place] [address] [place] [address] MRI Report Signed Patient: Virgen Gonzales MR#: [id number] : 1955 Acct:[id number] Age/Sex: 69 / F ADM Date: 5 Loc: [facility] Room: Type: [facility] Attending Dr: Olman De La Rosa DO Copies to: Olman De La Rosa DO~ Ordering Provider: Olman De La Rosa DO Date of Service: 09/14/24 MR/MR head/brain wo/w con: R40.20 MR head/brain wo/w con 09/14/2024 4:25 PM SIGN AND SYMPTOMS: Loss of consciousness, dizziness PROTOCOL: Multiplanar multisequence MR images of the brain with and without IV contrast CONTRAST: 20 mL of intravenous ProHance COMPARISON: 04/12/2023 FINDINGS: Extra axial spaces: There is age-related cortical atrophy. Hemorrhage: None. Ventricular system: Within normal limits. Basal cisterns: Within normal limits and not effaced. Cerebral parenchyma: T2 and FLAIR hyperintense signal is noted in the periventricular and subcortical white matter consistent with chronic microvascular ischemic change. No abnormal postcontrast enhancement. Midline shift: None.. Cerebellum: Within normal limits. Brainstem: Within normal limits. OTHER: Calvarium: Normal marrow signal. Vascular system: Satisfactory flow voids within the anterior and posterior circulation. Visualized Paranasal sinuses: Within normal limits. Visualized Orbits: Within normal limits. Visualized upper cervical spine: Within normal limits. Sella and skull base: Within normal limits. MR/MR head/brain wo/w con IMPRESSION: No acute intracranial pathology or abnormal postcontrast enhancement. Chronic age-related neurodegenerative changes are noted as above. Impression dictated by: Jacinto Gallagher M.D.09/14/2024 5:21 PM Dictation Location: [facility]-19 Transcribed By: KATHIE 09/14/241720 Dictated By: Jacinto Gallagher II, MD 09/14/241713 Signed By: 09/14/241720 [facility] Work Phone: X-ray reportOrdered By: Gareth Horn on 09-14-2024 Study report [facility] [address] [address] XRay Report Signed Patient: Virgen Gonzales MR#: [id number] : 1955 Acct:[id number] Age/Sex: 69 / F ADM Date: 5 Loc: [facility] Room: Type: [facility] Attending Dr: Aretha Valadez APRN Copies to: Aretha Valadez APRN~ Ordering Provider: Aretha Valadez APRN Date of Service: 09/14/24 XR/XR tibia fibula RT 2V*: RT LEG ULCER,EDEMA 2 views right tibia and fibula plain film HISTORY: Anterior right lower leg wound. Slow healing. Edema. COMPARISON: None ACUTE FINDINGS: None DEGENERATIVE CHANGE: Mild ankle and knee degeneration. Posterior and inferior calcaneal spurring SOFT TISSUE FINDINGS: Anterior soft tissue prominence. No subcutaneous air. Noacute bony destruction. JOINT EFFUSION: None POSTOP CHANGES: None BONE MINERALIZATION: Adequate XR/XR tibia fibula RT 2V* IMPRESSION: Anterior soft tissue prominence. No subcutaneous air. No acute bony destruction. Impression dictated by: Jose Horn M.D.09/14/2024 8:40 PM Dictation Location: [facility]-20 Transcribed By: KATHIE 09/14/242039 Dictated By: Jose Horn DO 09/14/242034 Signed By: 09/14/242039 [facility] XR tibia fibula RT 2V*on XR tibia fibula RT 2V* [facility] [address] [address] XRay Report Signed Patient: Virgen Gonzales MR# : [id number] : 1955 Acct:[id number] Age/Sex: 69 / F ADM Date: 09/14/24 Loc: [facility] Room: Type: [facility] Attending Dr: Aretha Valadez APRN Copies to: Aretha Valadez APRN Ordering Provider: Aretha Valadez APRN Date of Service: 09/14/24 XR/XR tibia fibula RT 2V*: RT LEG ULCER,EDEMA 2 views right tibia and fibula plain film HISTORY: Anterior right lower leg wound. Slow healing. Edema. COMPARISON: None ACUTE FINDINGS: None DEGENERATIVE CHANGE: Mild ankle and knee degeneration. Posterior and inferior calcaneal spurring SOFT TISSUE FINDINGS: Anterior soft tissue prominence. No subcutaneous air. No acute bony destruction. JOINT EFFUSION: None POSTOP CHANGES: None BONE MINERALIZATION: Adequate XR/XR tibia fibula RT 2V* IMPRESSION: Anterior soft tissue prominence. No subcutaneous air. No acute bony destruction. Impression dictated by: Jose Horn M.D.09/14/2024 8:40 PM Dictation Location: [facility]--20 Transcribed By: [facility] 09/14/242039 Dictated By: Jose Horn DO 09/14/242034 Signed By: 09/14/242039 Normal The Counts Include 234 [facility] Ambulatory Visit Summaryon 0 09-07-2024 Ambulatory Visit Summary Ambulatory Visit Summary VIRGEN GONZALES :1955 Visit Date:09/07/2024 Ambulatory Visit Instructions Your Diagnosis Bilateral renal cysts Tests Performed US Renal -- Results Pending -- Please visit your patient portal for your results or contact your primary care physician. Your Care Team Attending Physician - Kang BOSS MD Primary Care Physician - AGGIE DAVIS CNP Referring Physician - Carter Granger MD This Is Your Medications List Contact prescribing physician if questions or concerns albuterol (Albuterol (Eqv-Proventil HFA) 90 mcg/inh inhalation aerosol) alendronate (alendronate 70 mg oral tablet) aspirin busPIRone diphenhydrAMINE (Benadryl) empagliflozin (Jardiance 25 mg oral tablet) esomeprazole (Nexium 20 mg Cap-DR) fluoxetine (FLUoxetine 10 mg Cap) fluticasone (Flovent HFA 110 Aerosol) furosemide hydrochlorothiazide (hydrochlorothiazide 25 mg Tab) insulin isophane (Relion Novolin N) lisinopril (lisinopril 10 mg Tab) meclizine nitroglycerin (nitroglycerin 0.4 mg sublingual Tab) pregabalin semaglutide (Ozempic 2 mg/3 mL (0.25 mg or 0.5 mg dose) subcutaneous solution) simvastatin (simvastatin 40 mg Tab) Procedures Performed Carpal tunnel release (06/07/2023), Arthroscopy of knee (09/30/2020), Right little finger release A-1 linda (05/09/2016), Cholecystectomy, History of tonsillectomy, hysterectomy, needle removed right foot, Operation on toenail, Release of trigger finger, right carpel tunnel, right knee arthroscopy x2. Discharge Vitals Heart Rate (Peripheral) 70 Respiratory Rate 18 Blood Pressure 112/74 Height 155 cm Height 61 in Weight 93.3 kg Weight 205.691 lb BMI 38.83 What to do next Scheduled Follow-Up Appointments Saturday 11:30 AM EDT With: Kang BOSS MD Where: [facility] [place] [address]- You Need to Schedule the Following Appointments Follow Up with Kang BOSS MD, URL When: In 6 months Comments: w/TOMEKA Where: [facility] [address], [place] [address]- Medications What How Much When Instructions Unchanged albuterol (Albuterol (Eqv-Proventil HFA) 90 mcg/ inh inhalation aerosol) See instructions Contact prescribing physician if questions or concerns Unchanged alendronate (alendronate 70 mg oral tablet) 1 Tablets By Mouth Every week Contact prescribing physician if questions or concerns Unchanged aspirin 81 Milligram By Mouth Every day Contact prescribing physician if questions or concerns Unchanged busPIRone 75 Milligram By Mouth 2 times a day Contact prescribing physician if questions or concerns Unchanged diphenhydrAMINE (Benadryl) See instructions Contact prescribing physician if questions or concerns Unchanged empagliflozin (Jardiance 25 mg oral tablet) 1 Tablets By Mouth Once a day (in the morning) Contact prescribing physician if questions or concerns Unchanged esomeprazole (Nexium 20 mg Cap-DR) 1 Capsules By Mouth Every day Contact prescribing physician if questions or concerns Unchanged fluoxetine (FLUoxetine 10 mg Cap) 1 Capsules By Mouth Every day Contact prescribing physician if questions or concerns Unchanged fluticasone (Flovent HFA 110 Aerosol) 2 Puffs Inhalation 2 times a day as needed for Shortness of breath or wheezing Contact prescribing physician if questions or concerns Unchanged furosemide 20 Milligram By Mouth Every day Contact prescribing physician if questions or concerns Unchanged hydrochlorothiazide (hydrochlorothiazide 25 mg Tab) 1 Tablets Contact prescribing physician if questions or concerns Unchanged insulin isophane (Relion Novolin N) 16 Units Subcutaneous 2 times a day Contact prescribing physician if questions or concerns Unchanged lisinopril (lisinopril 10 mg Tab) 1 Tablets By Mouth Every day Contact prescribing physician if questions or concerns Unchanged meclizine 25 Milligram By Mouth 2 times a day Contact prescribing physician if questions or concerns Unchanged nitroglycerin (nitroglycerin 0.4 mg sublingual Tab) 1 Tablets Sublingual Every 5 minutes as needed for for chest pain Contact prescribing physician if questions or concerns Unchanged pregabalin 75 Milligram By Mouth 2 times a day Contact prescribing physician if questions or concerns Unchanged semaglutide (Ozempic 2 mg/ 3 mL (0.25 mg or 0.5 mg dose) subcutaneous solution) See instructions Contact prescribing physician if questions or concerns Unchanged simvastatin (simvastatin 40 mg Tab) 1 Tablets By Mouth Once a day (at bedtime) Contact prescribing physician if questions or concerns Medications and Immunizations Administered Given zoster vaccine, inactivated, Allergies Percocet (sleeps a long time) Vicodin (itching , sick to stomach) Darvocet-N 100 (Itching) Darvon (Itching) codeine (Nausea) penicillins (Difficulty lobo (more content not included)... Normal [facility] Ambulatory Visit Summary Ambulatory Visit Summary VIRGEN GONZALES :1955 Visit Date:09/07/2024 Ambulatory Visit Instructions Your Diagnosis Bilateral renal cysts Tests Performed US Renal -- Results Pending -- Please visit your patient portal for your results or contact your primary care physician. Your Care Team Attending Physician - Kang BOSS MD Primary Care Physician - AGGEI DAVIS CNP Referring Physician - Carter Granger MD This Is Your Medications List Contact prescribing physician if questions or concerns albuterol (Albuterol (Eqv-Proventil HFA) 90 mcg/inh inhalation aerosol) alendronate (alendronate 70 mg oral tablet) aspirin busPIRone diphenhydrAMINE (Benadryl) empagliflozin (Jardiance 25 mg oral tablet) esomeprazole (Nexium 20 mg Cap-DR) fluoxetine (FLUoxetine 10 mg Cap) fluticasone (Flovent HFA 110 Aerosol) furosemide hydrochlorothiazide (hydrochlorothiazide 25 mg Tab) insulin isophane (Relion Novolin N) lisinopril (lisinopril 10 mg Tab) meclizine nitroglycerin (nitroglycerin 0.4 mg sublingual Tab) pregabalin semaglutide (Ozempic 2 mg/3 mL (0.25 mg or 0.5 mg dose) subcutaneous solution) simvastatin (simvastatin 40 mg Tab) Procedures Performed Carpal tunnel release (06/07/2023), Arthroscopy of knee (09/30/2020), Right little finger release A-1 linda (05/09/2016), Cholecystectomy, History of tonsillectomy, hysterectomy, needle removed right foot, Operation on toenail, Release of trigger finger, right carpel tunnel, right knee arthroscopy x2. Discharge Vitals Heart Rate (Peripheral) 70 Respiratory Rate 18 Blood Pressure 112/74 Height 155 cm Height 61 in Weight 93.3 kg Weight 205.691 lb BMI 38.83 What to do next Scheduled Follow-Up Appointments Saturday 11:30 AM EDT With: Kang BOSS MD Where: [facility] [address] [place] [address]- You Need to Schedule the Following Appointments Follow Up with Kang BOSS MD, URL When: In 6 months Comments: w/TOMEKA Where: [facility] [address], [place] [address]- Medications What How Much When Instructions Unchanged albuterol (Albuterol (Eqv-Proventil HFA) 90 mcg/ inh inhalation aerosol) See instructions Contact prescribing physician if questions or concerns Unchanged alendronate (alendronate 70 mg oral tablet) 1 Tablets By Mouth Every week Contact prescribing physician if questions or concerns Unchanged aspirin 81 Milligram By Mouth Every day Contact prescribing physician if questions or concerns Unchanged busPIRone 75 Milligram By Mouth 2 times a day Contact prescribing physician if questions or concerns Unchanged diphenhydrAMINE (Benadryl) See instructions Contact prescribing physician if questions or concerns Unchanged empagliflozin (Jardiance 25 mg oral tablet) 1 Tablets By Mouth Once a day (in the morning) Contact prescribing physician if questions or concerns Unchanged esomeprazole (Nexium 20 mg Cap-DR) 1 Capsules By Mouth Every day Contact prescribing physician if questions or concerns Unchanged fluoxetine (FLUoxetine 10 mg Cap) 1 Capsules By Mouth Every day Contact prescribing physician if questions or concerns Unchanged fluticasone (Flovent HFA 110 Aerosol) 2 Puffs Inhalation 2 times a day as needed for Shortness of breath or wheezing Contact prescribing physician if questions or concerns Unchanged furosemide 20 Milligram By Mouth Every day Contact prescribing physician if questions or concerns Unchanged hydrochlorothiazide (hydrochlorothiazide 25 mg Tab) 1 Tablets Contact prescribing physician if questions or concerns Unchanged insulin isophane (Relion Novolin N) 16 Units Subcutaneous 2 times a day Contact prescribing physician if questions or concerns Unchanged lisinopril (lisinopril 10 mg Tab) 1 Tablets By Mouth Every day Contact prescribing physician if questions or concerns Unchanged meclizine 25 Milligram By Mouth 2 times a day Contact prescribing physician if questions or concerns Unchanged nitroglycerin (nitroglycerin 0.4 mg sublingual Tab) 1 Tablets Sublingual Every 5 minutes as needed for for chest pain Contact prescribing physician if questions or concerns Unchanged pregabalin 75 Milligram By Mouth 2 times a day Contact prescribing physician if questions or concerns Unchanged semaglutide (Ozempic 2 mg/ 3 mL (0.25 mg or 0.5 mg dose) subcutaneous solution) See instructions Contact prescribing physician if questions or concerns Unchanged simvastatin (simvastatin 40 mg Tab) 1 Tablets By Mouth Once a day (at bedtime) Contact prescribing physician if questions or concerns Medications and Immunizations Administered Given zoster vaccine, inactivated, Allergies Percocet (sleeps a long time) Vicodin (itching , sick to stomach) Darvocet-N 100 (Itching) Darvon (Itching) codeine (Nausea) penicillins (Difficulty lobo (more content not included)... 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 [facility] EMG 2 ExtremitiesOrdered By: Olman De La Rosa on 09-03-2024 [facility] Work Phone: NVC 9-10 Nerveson 09-03-2024 [facility] Bilateral ulnar neuropathies, 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 Pending sale to [facility] XR Elbow - right 3 Viewson 0 08-31-2024 Imaging Result: Three views of the right elbow, AP/lateral/oblique, taken today and saved to the permanent medical record. Joint spaces are preserved, no swelling in the olecranon bursa, no spurring at the olecranon, no fat pad sign, no bony lesions Pending sale to [facility] Radiology Study observation (narrative) [facility] Office Visiton 08-20-2024 Follow-up visit [id number] Virgen Harris 1955 F Date Provider Department Center 08/20/2024 271-PONCE [facility] Family History Problem Relation Age of Onset Heart failure Mother Heart failure Father Heart failure Paternal Grandmother Family Status - Relation Status Age at Mother Father Paternal Grandmother Level of Service:65108 [place] OFFICE/OUTPATIENT NEW LOW MDM [address] [facility] C Urineon 07-09-2024 Bacteria identified Cx Nom (U) Microbiology PROCEDURE: Urine Culture [R1] SOURCE: U Random BODY SITE: COLLECTED DATE/TIME: 07/07/2024 19:41 EST RECEIVED DATE/TIME: 07/07/2024 20:37 EST START DATE/TIME: 07/07/2024 20:37 EST FREE TEXT SOURCE: Luis HUNG, Kelly Smith PA-C, Kelly Arango FINAL REPORTS Final Report [] Verified Date/Time: 07/09/2024 14:17 EST 25,000 cfu/ml Mixed skin contaminants Performing Locations R1: This test was performed at: [facility], [address] [place] [address], [facility] , , Normal [facility] Comment on above: Performed By: #### 2 [id number] #### [facility] [address] [place] [address] ED Note-Physicianon 07-09-20 24 ED Note-Physician ED [...] syncopal episode at work. Patient works at [employer] and states all of a sudden she [...] if appl (more content not included)... Normal [facility] Comment on above: Result Comment: Elec tronically Signed By: Kelly Smith PA-C\.br\Date and Time Signed: 07/08/24 02:10 EST\.br\Electronically Co-Signed By: Ean Azevedo M.D..mary\Date and Time Co-Signed: 07/09/24 07:05 EST ABO/Rh History Checkon 07-08 ABO/Rh History Check Patient discharged prior Normal [facility] Comment on above: Performed By: #### 1 [id number] #### [facility] [address] [place] [address] CT Abdomen/Pelvis w/ Contras ton 07-08-2024 CT [...] 300 Contrast amount in ml's: 130 Normal [facility] CT Chest w/ Contraston 07-08 CT [...] 300 Contrast amount in ml's: 130 Normal [facility] CT Head or Brain w/o Contras ton [...] MD Transcribed by: JOSH Technologist: YONIS Normal [facility] CT Spine Cervical w/o Shannaa cris 07-08-2024 CT Spine Cervical w/o Contrast Exam [...] MD Transcribed by: JOSH Technologist: YONIS Normal [facility] ABO/Rhon 07-07-2024 ABO/Rh Positive Invalid Interpretation Code [facility] Comment on above: Performed By: #### 2 [id number] #### [facility] [address] [place] [address] ABSCon 07-07-2024 ABSC Gel Interp Negative Normal [facility] Comment on above: Performed By: #### 1 [id number] #### [facility] [address] [place] [address] B hCG Qualon 07-07-2024 Beta HCG ( test) Ql Negative Normal [facility] Comment on above: Performed By: #### 2 [id number] #### [facility] [address] [place] [address] BLOOD BANKOrdered By: Willard Greenwood on 07-07-2024 ABO/Rh Interp Positive Invalid Interpretation Code [facility] BB Subsection ABSC Gel Interp Negative (07/07/24 6:48 PM) Normal [facility] BB Subsection BMPon 07-07-2024 Anion gap [Moles/Vol] 11 mmol/L Normal 6-16 [facility] Comment on above: Performed By: #### 2 [id number] #### [facility] [address] [place] [address] Calcium [Mass/Vol] 9.1 mg/dL Normal 8.9-11.1 [facility] Comment on above: Performed By: #### 2 [id number] #### [facility] [address] [place] [address] Chloride [Moles/Vol] 104 mmol/L Normal 101-111 [facility] Comment on above: Performed By: #### 2 [id number] #### [facility] [address] [place] [address] CO2 [Moles/Vol] 26 mmol/L Normal 21-31 [facility] Comment on above: Performed By: #### 2 [id number] #### [facility] [address] [place] [address] Creatinine [Mass/Vol] 1.8 mg/dL High 0.5-1.3 [facility] Comment on above: Performed By: #### 2 [id number] #### [facility] [address] [place] [address] Glucose [Mass/Vol] 154 mg/dL Normal 55-199 [facility] Comment on above: Performed By: #### 2 [id number] #### [facility] [address] [place] [address] Potassium [Moles/Vol] 3.6 mmol/L Normal 3.5-5.3 [facility] Comment on above: Performed By: #### 2 [id number] #### [facility] [address] [place] [address] Sodium [Moles/Vol] 137 mmol/L Normal 135-145 [facility] Comment on above: Performed By: #### 2 [id number] #### [facility] [address] [place] [address] Urea nitrogen [Mass/Vol] 23 mg/dL High 5-21 [facility] Comment on above: Performed By: #### 2 [id number] #### [facility] [address] [place] [address] Urea nitrogen/Creatinine [Mass ratio] 13 No Units Normal 10-20 [facility] Comment on above: Performed By: #### 2 [id number] #### [facility] [address] [place] [address] Blood Bank ID#on 07-07-2024 BBID# [id number] Invalid Interpretation Code [facility] Comment on above: Performed By: #### 1 [id number] #### [facility] [address] [place] [address] CBC w/ Auto Diffon 4 Basophils/100 WBC (Bld) 0.6 % Normal 0.0-2.0 [facility] Comment on above: Result Comment: Amy ection date/time has been modified to: 18:23:00. Previous collection date/time: 18:45:00. Performed By: #### 2 [id number] #### [facility] [address] [place] [address] Basophils/Leukocytes Auto (Bld) [Pure # fraction] 0.1 E9/L Normal 0.0-0.2 [facility] Comment on above: Result Comment: Amy ection date/time has been modified to: 18:23:00. Previous collection date/time: 18:45:00. Performed By: #### 2 [id number] #### [facility] [address] [place] [address] Eosinophils (Bld) [#/Vol] 0.3 E9/L Normal 0.0-0.5 [facility] Comment on above: Result Comment: Amy ection date/time has been modified to: 18:23:00. Previous collection date/time: 18:45:00. Performed By: #### 2 [id number] #### [facility] [address] [place] [address] Eosinophils/100 WBC (Bld) 3.1 % Normal 0.0-8.0 [facility] Comment on above: Result Comment: Amy ection date/time has been modified to: 18:23:00. Previous collection date/time: 18:45:00. Performed By: #### 2 [id number] #### [facility] [address] [place] [address] Erythrocyte distribution width (RBC) [Ratio] 15.1 % High 10.9-14.2 [facility] Comment on above: Result Comment: Amy ection date/time has been modified to: 18:23:00. Previous collection date/time: 18:45:00. Performed By: #### 2 [id number] #### [facility] [address] [place] [address] Hematocrit (Bld) [Volume fraction] 38.3 % Normal 34.0-46.0 [facility] Comment on above: Result Comment: Amy ection date/time has been modified to: 18:23:00. Previous collection date/time: 18:45:00. Performed By: #### 2 [id number] #### [facility] [address] [place] [address] Hemoglobin (Bld) [Mass/Vol] 12.7 g/dL Normal 12.0-16.0 [facility] Comment on above: Result Comment: Amy ection date/time has been modified to: 18:23:00. Previous collection date/time: 18:45:00. Performed By: #### 2 [id number] #### [facility] [address] [place] [address] Lymphocytes (Bld) [#/Vol] 2.4 E9/L Normal 1.0-4.0 [facility] Comment on above: Result Comment: Amy ection date/time has been modified to: 18:23:00. Previous collection date/time: 18:45:00. Performed By: #### 2 [id number] #### [facility] [address] [place] [address] Lymphocytes/100 WBC (Bld) 26.6 % Normal 14.0-50.0 [facility] Comment on above: Result Comment: Amy ection date/time has been modified to: 18:23:00. Previous collection date/time: 18:45:00. Performed By: #### 2 [id number] #### [facility] [address] [place] [address] MCH (RBC) [Entitic mass] 29.9 pg Normal 27.0-34.0 [facility] Comment on above: Result Comment: Amy ection date/time has been modified to: 18:23:00. Previous collection date/time: 18:45:00. Performed By: #### 2 [id number] #### [facility] [address] [place] [address] MCHC (RBC) [Mass/Vol] 33.1 g/dL Normal 31.4-36.0 [facility] Comment on above: Result Comment: Amy ection date/time has been modified to: 18:23:00. Previous collection date/time: 18:45:00. Performed By: #### 2 [id number] #### [facility] [address] [place] [address] MCV (RBC) [Entitic vol] 90.2 fL Normal 80.0-100.0 [facility] Comment on above: Result Comment: Amy ection date/time has been modified to: 18:23:00. Previous collection date/time: 18:45:00. Performed By: #### 2 [id number] #### [facility] [address] [place] [address] Monocytes (Bld) [#/Vol] 0.5 E9/L Normal 0.2-1.0 [facility] Comment on above: Result Comment: Amy ection date/time has been modified to: 18:23:00. Previous collection date/time: 18:45:00. Performed By: #### 2 [id number] #### [facility] [address] [place] [address] Neutrophils (Bld) [#/Vol] 5.8 E9/L Normal 2.0-7.5 [facility] Comment on above: Result Comment: Amy ection date/time has been modified to: 18:23:00. Previous collection date/time: 18:45:00. Performed By: #### 2 [id number] #### [facility] [address] [place] [address] Neutrophils/100 WBC (Bld) 64.2 % Normal 36.0-75.0 [facility] Comment on above: Result Comment: Amy ection date/time has been modified to: 18:23:00. Previous collection date/time: 18:45:00. Performed By: #### 2 [id number] #### [facility] [address] [place] [address] Platelet mean volume (Bld) [Entitic vol] 10.1 fL Normal 6.4-10.8 [facility] Comment on above: Result Comment: Amy ection date/time has been modified to: 18:23:00. Previous collection date/time: 18:45:00. Performed By: #### 2 [id number] #### [facility] [address] [place] [address] Platelets (Bld) [#/Vol] 183.0 E9/L Normal 150.0-500.0 [facility] Comment on above: Result Comment: Amy ection date/time has been modified to: 18:23:00. Previous collection date/time: 18:45:00. Performed By: #### 2 [id number] #### [facility] [address] [place] [address] RBC (Bld) [#/Vol] 4.2 E12/L Low 4.3-5.9 [facility] Comment on above: Result Comment: Amy ection date/time has been modified to: 18:23:00. Previous collection date/time: 18:45:00. Performed By: #### 2 [id number] #### [facility] [address] [place] [address] WBC corrected for nucl RBC Auto (Bld) [#/Vol] 9.1 E9/L Normal 4.0-11.0 [facility] Comment on above: Result Comment: Amy ection date/time has been modified to: 18:23:00. Previous collection date/time: 18:45:00. Performed By: #### 2 [id number] #### [facility] [address] [place] [address] Basophils/100 WBC (Bld) 0.6 % Normal 0.0-2.0 [facility] Comment on above: Performed By: #### 2 [id number] #### [facility] [address] [place] [address] Basophils/Leukocytes Auto (Bld) [Pure # fraction] 0.1 E9/L Normal 0.0-0.2 [facility] Comment on above: Performed By: #### 2 [id number] #### [facility] [address] [place] [address] Eosinophils (Bld) [#/Vol] 0.3 E9/L Normal 0.0-0.5 [facility] Comment on above: Performed By: #### 2 [id number] #### [facility] [address] [place] [address] Eosinophils/100 WBC (Bld) 3.1 % Normal 0.0-8.0 [facility] Comment on above: Performed By: #### 2 [id number] #### [facility] [address] [place] [address] Erythrocyte distribution width (RBC) [Ratio] 15.1 % High 10.9-14.2 [facility] Comment on above: Performed By: #### 2 [id number] #### [facility] [address] [place] [address] Hematocrit (Bld) [Volume fraction] 38.3 % Normal 34.0-46.0 [facility] Comment on above: Performed By: #### 2 [id number] #### [facility] [address] [place] [address] Hemoglobin (Bld) [Mass/Vol] 12.7 g/dL Normal 12.0-16.0 [facility] Comment on above: Performed By: #### 2 [id number] #### [facility] [address] [place] [address] Lymphocytes (Bld) [#/Vol] 2.4 E9/L Normal 1.0-4.0 [facility] Comment on above: Performed By: #### 2 [id number] #### [facility] [address] [place] [address] Lymphocytes/100 WBC (Bld) 26.6 % Normal 14.0-50.0 [facility] Comment on above: Performed By: #### 2 [id number] #### [facility] [address] [place] [address] MCH (RBC) [Entitic mass] 29.9 pg Normal 27.0-34.0 [facility] Comment on above: Performed By: #### 2 [id number] #### [facility] [address] [place] [address] MCHC (RBC) [Mass/Vol] 33.1 g/dL Normal 31.4-36.0 [facility] Comment on above: Performed By: #### 2 [id number] #### [facility] [address] [place] [address] MCV (RBC) [Entitic vol] 90.2 fL Normal 80.0-100.0 [facility] Comment on above: Performed By: #### 2 [id number] #### [facility] [address] [place] [address] Monocytes (Bld) [#/Vol] 0.5 E9/L Normal 0.2-1.0 [facility] Comment on above: Performed By: #### 2 [id number] #### [facility] [address] [place] [address] Neutrophils (Bld) [#/Vol] 5.8 E9/L Normal 2.0-7.5 [facility] Comment on above: Performed By: #### 2 [id number] #### [facility] [address] [place] [address] Neutrophils/100 WBC (Bld) 64.2 % Normal 36.0-75.0 [facility] Comment on above: Performed By: #### 2 [id number] #### [facility] [address] [place] [address] Platelet mean volume (Bld) [Entitic vol] 10.1 fL Normal 6.4-10.8 [facility] Comment on above: Performed By: #### 2 [id number] #### [facility] [address] [place] [address] Platelets (Bld) [#/Vol] 183.0 E9/L Normal 150.0-500.0 [facility] Comment on above: Performed By: #### 2 [id number] #### [facility] [address] [place] [address] RBC (Bld) [#/Vol] 4.2 E12/L Low 4.3-5.9 [facility] Comment on above: Performed By: #### 2 [id number] #### [facility] [address] [place] [address] WBC corrected for nucl RBC Auto (Bld) [#/Vol] 9.1 E9/L Normal 4.0-11.0 [facility] Comment on above: Performed By: #### 2 [id number] #### [facility] [address] [place] [address] CHEMISTRYOrdered By: SYSTEM SYSTEM on 07-07-2024 Amphetamines [...] 11 mmol/L Normal 6 - 16 mEq/L Remisol Chem AST [Catalytic activity/Vol] 13 [iU]/d Normal [...] Chem eGFR 30 mL/min/1.73 m2 Low >=59mL/min / 1.73 m2 Remisol Chem Ethanol Lvl mg/dL Normal [...] Sensitivity Troponin I Instructions For Use, [place] Likely, February 2018) Urea nitrogen [Mass/Vol] 23 mg/dL High 5 - 21 mg/dL Remisol Chem Urea nitrogen/Creatinine [Mass ratio] 13 mg/mg Normal 10 - 20 Remisol Chem CKon 07-07-2024 Total CK 149 Int._Unit/L Normal 14-261 [facility] Comment on above: Performed By: #### 2 [id number] #### [facility] [address] [place] [address] COAGULATIONOrdered By: Leslie Chavez on 07-07-2024 aPTT Coag (PPP) [Time] 31.1 s Normal 25.1 - 36.5 second(s) [facility] Auto Coag Comment on above: Interpretive Data: [...] the same coagulation reagent and instrumentation as [facility]. Currently there are no coagulation studies available worldwide for children to 14 days, and no normal ranges. Heparin therapeutic range (represented by Anti-Factor Xa activity of 0.2 - 0.4 U/mL) corresponds to PTT of 56.6 - 109.0 sec. INR Coag (PPP) [Relative time] 0.92 {INR} Invalid Interpretation Code [facility] Coag Comment on above: Interpretive Data: I NR results are specifically intended to assess patients stabilized on long-term Anticoagulation therapy suggested INR s Less Intensive Anticoagulation 2.0 3.0 Conventional Range 3.0 4.5 PT Coag (PPP) [Time] 10.3 s Normal 9.4 - 1 2.5 second(s) [facility] Comment on above: Interpretive Data: [...] the same coagulation reagent and instrumentation as [facility]. Currently there are no coagulation studies available worldwide for children to 14 days, and no normal ranges. ED Clinical Summaryon 2023 ED Clinical Summary ED Clinical Summary [place] [id number] ED Clinical Summary Person Information Name: VIRGEN GNOZALES [facility] Age: 68 Years : 1955 Sex: Female Language: Macedonian PCP: AGGIE DAVIS CNP Marital Status: Visit [...] 07/07/2024 22:29:17 07/07/2024 22:29:17 07/07/2024 22:29:17 [address] [place] [id number] PHYS DOC NOTES: MEDICAL INFORMATION: Prescriptions Given: New Medications [facility] 1987, [address] [place], [place] [id number], [phone] cephalexin (cephalexin 500 mg Cap) 1 Capsules [...] EDUCATION INFORMATION: Instructions: Urinary Tract Infection, Adult, [id number]; Syncope, Adult, [id number]; Head Injury, Adult, [id number]; Contusion, [id number] Follow up: With: Address: When: AGGIE DAVIS [address] [place] [phone] Business (more content not included)... Normal [facility] ED Patient Summaryon 024 ED Patient Summary ED Patient Summary [place] [id number] Patient Discharge Instructions Person Information Name: VIRGEN GONZALES Age: 68 Years Arrival Date: 07/07/2024 18:16:48 Discharge Diagnosis: 1:Contusion of occipital region of scalp; 2:Syncope and collapse; 3:Acute lower urinary tract infection Primary Care Physician: AGGIE DAVIS CNP Provider Information Primary Provider: Tiny Fallon DO Advanced Electronic Warfare Officer:None The exam and treatment you received in the Emergency Department were for an urgent problem and are not intended as complete care. It is important that you follow up with a doctor, nurse practitioner, or physician???s assistant professor of mathematics for ongoing care. If your symptoms become [...] With: Address: When: AGGIE DAVIS [address] [place] [phone] Business (1) In 3 days 07/10/2024 In the event that this physician does not participate in your insurance network, please consult with your insurance company to find a nearby participating provider. Patient Education Materials: Urinary Tract Infection, Adult, Ysxc-ts-Zrxc; Syncope, Adult, Ruvd-kl-Bhue; Head Injury, Adult, Amey-ee-Dlem; Contusion, Ouwh-kl-Kcjx A MESSAGE TO ALL PATIENTS REGARDING OPIOIDS PRESCRIPTION OPIOIDS: WHAT YOU NEED TO KNOW Prescription opioids can be used to help relieve fkfcrozr-wk-nqtabl pain and are often prescribed following a [...] (www.fda.gov/Drugs/Res ourcesFo (more content not included)... Normal [facility] Ethanolon 07-07-2024 Ethanol Lvl <10 Normal <=11 [facility] Comment on above: Performed By: #### 2 [id number] #### [facility] [address] [place] [address] HEMATOLOGYOrdered By: SYSTEM SYSTEM on 07-07-2024 Basophils/100 [...] 18:45:00. Platelets (Bld) [#/Vol] 183.0 E9/L Normal 150. 0 - 500.0 E9/L Remisol Heme Comment on [...] 07-07-2024 Albumin [Mass/Vol] 3.9 g/dL Normal 3.3-5.0 [facility] Comment on above: Performed By: #### 2 [id number] #### [facility] [address] [place] [address] Albumin/Globulin (S) [Mass conc ratio] 1.4 Normal 1.1-2.2 [facility] Comment on above: Performed By: #### 2 [id number] #### [facility] [address] [place] [address] ALP [Catalytic activity/Vol] 112 Int._Unit/L High 21-98 [facility] Comment on above: Performed By: #### 2 [id number] #### [facility] [address] [place] [address] ALT No additional P-5'-P [Catalytic activity/Vol] 11 Int._Unit/L Normal 6-46 [facility] Comment on above: Performed By: #### 2 [id number] #### [facility] [address] [place] [address] AST [Catalytic activity/Vol] 13 Int._Unit/L Normal 5-43 [facility] Comment on above: Performed By: #### 2 [id number] #### [facility] [address] [place] [address] Bilirubin [Mass/Vol] 0.4 mg/dL Normal 0.0-1.1 [facility] Comment on above: Performed By: #### 2 [id number] #### [facility] [address] [place] [address] Bilirubin.direct [Mass/Vol] 0.1 mg/dL Normal 0.0-0.4 [facility] Comment on above: Performed By: #### 2 [id number] #### [facility] [address] [place] [address] Bilirubin.indirect [Mass or moles/Vol] 0.3 mg/dL Normal 0.1-0.9 [facility] Comment on above: Performed By: #### 2 [id number] #### [facility] [address] [place] [address] Globulin (S) [Mass/Vol] 2.8 g/dL Normal 1.4-4.0 [facility] Comment on above: Performed By: #### 2 [id number] #### [facility] [address] [place] [address] Protein [Mass/Vol] 6.7 g/dL Normal 6.0-7.8 [facility] Comment on above: Performed By: #### 2 [id number] #### [facility] [address] [place] [address] Lactic Acidon 07-07-2024 Lactic Acid Lvl 0.9 mmol/L Normal 0.5-2.2 [facility] Comment on above: Performed By: #### 2 [id number] #### [facility] [address] [place] [address] Lipase Levelon 07-07-2024 Lipase [Catalytic activity/Vol] 22 U/L Normal 13-58 [facility] Comment on above: Performed By: #### 2 [id number] #### [facility] [address] [place] [address] Magnesiumon 07-07-2024 Magnesium [Mass/Vol] 2.2 mg/dL Normal 1.3-2.4 [facility] Comment on above: Performed By: #### 2 [id number] #### [facility] [address] [place] [address] Myoglobinon 07-07-2024 Myoglobin [Mass/Vol] 128 ng/mL High <=69 [facility] Comment on above: Performed By: #### 2 [id number] #### [facility] [address] [place] [address] PT & PTTon 07-07-2024 aPTT Coag (PPP) [Time] 31.1 second(s) Normal 25.1-36.5 [facility] Comment on above: Result Comment: Para [...] the same coagulation reagent and instrumentation as [facility]. Currently there are no coagulation studies available worldwide for children to 14 days, and no normal ranges. Heparin therapeutic range (represented by Anti-Factor Xa activity of 0.2 - 0.4 U/mL) corresponds to PTT of 56.6 - 109.0 sec. Performed By: #### 1 [id number] #### [facility] [address] [place] [address] INR Coag (PPP) [Relative time] 0.92 {INR} Invalid Interpretation Code [facility] Comment on above: Result Comment: INR results are specifically intended to assess patients stabilized on long-term Anticoagulation therapy suggested INR???s ???Less Intensive Anticoagulation??? 2.0 ??? 3.0 Conventional Range 3.0 ??? 4.5 Performed By: #### 1 [id number] #### [facility] [address] [place] [address] PT Coag (PPP) [Time] 10.3 second(s) Normal 9.4-12.5 [facility] Comment on above: Result Comment: 15 [...] the same coagulation reagent and instrumentation as [facility]. Currently there are no coagulation studies available worldwide for children to 14 days, and no normal ranges. Performed By: #### 1 [id number] #### [facility] [address] [place] [address] SEROLOGYOrdered By: Gerri Chavez on 07-07-2024 Beta HCG ( test) Ql Negative (07/07/24 6:23 PM) Normal [facility] Man Sero Troponinon 07-07-2024 Troponin HS 10.70 pg/mL Normal 10.10-27.10 [facility] Comment on above: Result Comment: The 95% CI (Confidence Interval) PPV (Positive Predictive Value) for myocardial infarction in females is 38 pg/mL, in males 51 pg/mL. The results should be used in conjunction with clinical conditions of myocardial infarction. (Access High Sensitivity Troponin I Instructions For Use, Lalito Likely, February 2018) Performed By: #### 2 [id number] #### [facility] [address] [place] [address] U Drug Screenon 07-07-2024 Amphetamines Screen method >1000 ng/mL Ql (U) Negative Normal NEGATIVE [facility] Comment on above: Result Comment: Nega tive Cutoff: <1000 ng/mL Performed By: #### 2 [id number] #### [facility] [address] [place] [address] Barbiturates Screen Ql (U) Negative Normal NEGATIVE [facility] Comment on above: Result Comment: Nega tive Cutoff: <200 ng/mL Performed By: #### 2 [id number] #### [facility] [address] [place] [address] Benzodiazepines Ql (U) Negative Normal NEGATIVE [facility] Comment on above: Result Comment: Nega tive Cutoff: <200 ng/mL Performed By: #### 2 [id number] #### [facility] [address] [place] [address] Cannabinoids Screen Ql (U) Negative Normal NEGATIVE [facility] Comment on above: Result Comment: Nega tive Cutoff: <50 ng/mL Performed By: #### 2 [id number] #### [facility] [address] [place] [address] Cocaine Ql (U) Negative Normal NEGATIVE [facility] Comment on above: Result Comment: Nega tive Cutoff: <300 ng/mL Performed By: #### 2 [id number] #### [facility] [address] [place] [address] Opiates Screen Ql (U) Negative Normal NEGATIVE [facility] Comment on above: Result Comment: Nega tive Cutoff: <300 ng/mL Performed By: #### 2 [id number] #### [facility] [address] [place] [address] Phencyclidine Screen method >25 ng/mL Ql (U) Negative Normal NEGATIVE [facility] Comment on above: Result Comment: Nega tive Cutoff: <25 ng/mL These drug screen results are to be used for medical (i.e., treatment) purposes only. Unconfirmed drug screening results must not be used for non-medical purposes (e.g., employment testing, legal testing). Performed By: #### 2 [id number] #### [facility] [address] [place] [address] U Fentanyl Negative Normal NEGATIVE [facility] Comment on above: Result Comment: Nega tive Cutoff: <5 ng/mL These drug screen results are to be used for medical (i.e., treatment) purposes only. Unconfirmed drug screening results must not be used for non-medical purposes (e.g., employment testing, legal testing). Performed By: #### 2 [id number] #### [facility] [address] [place] [address] UA with Cult Rflxon 07-07-20 24 Bacteria Auto Ql (U) 1+ /HPF Abnormal Trace Fish er [facility] Comment on above: Performed By: #### 4 [id number] #### [facility] [address] [place] [address] Bilirubin Ql (U) Negative Normal Negative [facility] Comment on above: Performed By: #### 4 [id number] #### [facility] [address] [place] [address] Clarity (U) Ex.Turbid Abnormal Clear [facility] Comment on above: Performed By: #### 4 [id number] #### [facility] [address] [place] [address] Color (U) Light-[place] Abnormal Yellow [facility] Comment on above: Result Comment: Micr oscopic readings are only performed on those samples that meet specific criteria set forth by [facility]. Performed By: #### 4 [id number] #### [facility] [address] [place] [address] Epithelial cells.squamous Auto (Urine sed) [#/Area] >10 Invalid Interpretation Code [facility] Comment on above: Performed By: #### 4 [id number] #### [facility] [address] [place] [address] Glucose Ql (U) 4+ mg/dL Abnormal Negative [facility] Comment on above: Performed By: #### 4 [id number] #### [facility] [address] [place] [address] Hemoglobin Auto test strip (U) [Mass/Vol] 1+ mg/dL Abnormal Negative [facility] Comment on above: Performed By: #### 4 [id number] #### [facility] [address] [place] [address] Ketones Auto test strip Ql (U) Negative Normal Negative [facility] Comment on above: Performed By: #### 4 [id number] #### [facility] [address] [place] [address] Leukocyte esterase Auto test strip Ql (U) 500 Isidoro/uL Abnormal Negative [facility] Comment on above: Performed By: #### 4 [id number] #### [facility] [address] [place] [address] Mucus Auto Ql (U) Negative Normal Negative [facility] Comment on above: Performed By: #### 4 [id number] #### [facility] [address] [place] [address] Nitrite Auto test strip Ql (U) Negative Normal Negative [facility] Comment on above: Performed By: #### 4 [id number] #### [facility] [address] [place] [address] pH (U) 6.5 [pH] Invalid Interpretation Code 5.0-9.0 [facility] Comment on above: Performed By: #### 4 [id number] #### [facility] [address] [place] [address] Protein Ql (U) Trace Abnormal Negative [facility] Comment on above: Performed By: #### 4 [id number] #### [facility] [address] [place] [address] RBC Ql (U) 31-75 Abnormal 0-3 [facility] Comment on above: Performed By: #### 4 [id number] #### [facility] [address] [place] [address] Specific gravity (U) [Rel density] 1.019 Invalid Interpretation Code 1.005-1.030 [facility] Comment on above: Performed By: #### 4 [id number] #### [facility] [address] [place] [address] Urobilinogen (U) [Mass/Vol] Negative Normal Negative [facility] Comment on above: Performed By: #### 4 [id number] #### [facility] [address] [place] [address] WBC Auto (Urine sed) [#/Area] 31-75 Abnormal 0-5 [facility] Comment on above: Performed By: #### 4 [id number] #### [facility] [address] [place] [address] Yeast.budding Computer assisted Ql (U) Trace Abnormal [facility] Comment on above: Performed By: #### 4 [id number] #### [facility] [address] [place] [id number] Type of Urine collection method Clean Catch Normal [facility] Comment on above: Performed By: #### 4 [id number] #### [facility] [address] [place] [address] URINALYSISOrdered By: SYSTEM SYSTEM on 07-07-2024 Bacteria Auto Ql (U) 1+ /HPF Invalid Interpretation Code Trace/HPF [facility] UA Auto SS Bilirubin Ql (U) Negative Normal Negativemg/ dL [facility] UA Auto SS Clarity (U) Ex.Turbid *ABN* (07/07/24 7:41 PM) Invalid Interpretation Code Clear [facility] UA Auto SS Color (U) Light-[place] 3 *ABN* (07/07/24 7:41 PM) Invalid Interpretation Code Yellow [facility] UA Auto SS Comment on above: Interpretive Data: M icroscopic readings are only performed on those samples that meet specific criteria set forth by [facility]. Epithelial cells.squamous Auto (Urine sed) [#/Area] >10 graded/HPF Invalid Interpretation Code [facility] UA Auto SS Glucose Ql (U) 4+ mg/dL Invalid Interpretation Code Negativemg/ dL [facility] UA Auto SS Hemoglobin Auto test strip (U) [Mass/Vol] 1+ mg/dL Invalid Interpretation Code Negativemg/ dL [facility] UA Auto SS Ketones Auto test strip Ql (U) Negative Normal Negativemg/ dL [facility] UA Auto SS Leukocyte esterase Auto test strip Ql (U) 500 Isidoro/uL Isidoro/uL Invalid Interpretation Code NegativeLeu /uL [facility] UA Auto SS Mucus Auto Ql (U) Negative Normal Negativegr a ded/LPF [facility] UA Auto SS Nitrite Auto test strip Ql (U) Negative Normal Negativemg/ dL [facility] UA Auto SS pH (U) 6.5 *NA* (07/07/24 7:41 PM) Invalid Interpretation Code 5.0 - 9.0 [facility] UA Auto SS Protein Ql (U) Trace mg/dL Invalid Interpretation Code Negativemg/ dL [facility] UA Auto SS RBC Ql (U) 31-75 graded/HPF Invalid Interpretation Code 0-3graded/H PF [facility] UA Auto SS Specific gravity (U) [Rel density] 1.019 *NA* (07/07/24 7:41 PM) Invalid Interpretation Code 1.005 - 1.030 [facility] UA Auto SS Urobilinogen (U) [Mass/Vol] Negative Normal Negativemg/ dL [facility] UA Auto SS WBC Auto (Urine sed) [#/Area] 31-75 graded/HPF Invalid Interpretation Code 0-5graded/H PF [facility] UA Auto SS Yeast.budding Computer assisted Ql (U) Trace graded/HPF Invalid Interpretation Code [facility] UA Auto SS URINALYSISOrdered By: Gloria Smith on 07-07-2024 UA Spec Desc Clean Catch (07/07/24 7:41 PM) Normal [facility] UA Auto SS Work Phone: eGFRon 07-07-2024 eGFR 30 mL/min/1.73 m2 Low >=59 [facility] Comment on above: Performed By: #### 1 [id number] #### [facility] [address] [place] [address] Kobe 04-13-2024 L Specimen: [id number] Received: 04/15/24 Status: ANIRUDH Andrade Num: [id number] Spec Type: Cytology Subm Dr: Da Phillip DO Tissues: A FNA SLIDES NOPATH (RT THYR) B FNA SLIDES NOPATH (THY ISTHM) Procedures: Cyto Int and Re/2, PAPSTN/22 Age/ Patient Sex Location Account Attending Physician Virgen Gonzales 68/F [place] [id number] Da Phillip DO SPEC NUM: [id number] RECD: 04/15/24 STATUS: ANIRUDH ANDRADE NUM: [id number] AMY: 04/13/[address]: Da Phillip DO ENTERED: 04/15/[address] [facility] [address]: SPEC TYPE: Cytology DEPT: CNG ENTERED BY: [id number] RECV BY: [id number] ORDERED: Cyto Int and Re/2, PAPSTN ORDERED: Cyto Int and Re/2, PAPSTN Supplemental Report Addendum 2 Entered: 05/11/24-1013 Supplemental to correct the specimen type of Part B specimen, without a change of initial diagnosis Corrected specimen type B, Isthmus thyroid nodule, FNA cytology: Addendum Signed (signature on file) Noemy De Los Santos MD 05/11/24 1013 ---- Addendum 1 Entered: 05/11/24-100 Supplemental for findings of [facility] GENOMIC SEQUENCING 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: -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 Lever Operator -Benign (risk of malignancy 4%) ---- Specimen: [id number] Received: 04/15/24 Status: ROSALINALyudmila Andrade Num: [id number] Spec Type: Cytology Subm Dr: Da Phillip,DO Tissues: A FNA SLIDES NOPATH (RT THYR) B FNA SLIDES NOPATH (THY ISTHM) Procedures: Cyto Int and Re/2, PAPSTN ---- Patient: Virgen Gonzales [id number] (Continued) ---- Specimen: [id number] Received: 04/15/24 (Continued) Supplemental Report (Continued) Signed (signature on file) Noemy De Los Santos MD 04/21/24 1010 ---- Specimen: [id number] Received: 04/15/24 Status: ANIRUDH Andrade Num: [id number] Spec Type: Cytology Subm Dr: Da Phillip,DO Tissues: A FNA SLIDES NOPATH (RT THYR) B FNA SLIDES NOPATH (THY ISTHM) Procedures: Cyto Int and Re/2, PAPSTN/22 ---- Patient: Virgen Gonzales [id number] (Continued) ---- Specimen: [id number] Received: 04/15/24-1244 (Continued) Supplemental Report (Continued) -Xpression [place] -N/A -Other Classifiers -BRAF: Negative -RET/PTC1: Not detected -RET/PTC3: Not detected -MTC: Negative -Parathyroid: Negative TERT PROMOTER REGION: -Tests not performed (TNP) Addendum Signed (signature on file) Noemy De Los Santos MD 05/11/24 1009 ---- Pathological Diagnosis A, right thyroid nodule, mid, FNA cytology: -A few follicular groups present in combined smears, appropriate for assessment -Most follicular cells show uniform small round to ovoid nuclei. However, rare follicular groups display slightly enlarged ovoid nuclei, including 1 with noted nuclear inclusion, suspicious for atypia of undetermined significance, the category 3 Reynolds system -Pending additional molecular triage study to follow B, instruments thyroid nodule, FNA cytology: -A few follicular cells are present in combined smears, including occasional small and/or loose follicular groups, adequately for assessment, often showing small round to ovoid nuclei, consistent with the category 2 Reynolds system: Benign ---- Specimen: [id number] Received: 04/15/24 Status: ANIRUDH Andrade Num: [id number] Spec Type: Cytology Subm Dr: Da Phillip DO Tissues: A FNA SLIDES NOPATH (RT THYR) B FNA SLIDES NOPATH (THY ISM) Procedures: Cyto Int and Re/2, PAPSTN/22 ---- Patient: Virgen Gonzales [id number] (Continued) ---- Specimen: [id number] Received: 04/15/24 (Continued) Signed (signature on file) Noemy De Los Santos MD 04/21/24 1010 ---- Specimen: [id number] Received: 04/15/24 Status: ANIRUDH Andrade Num: [id number] Spec Type: Cytology Subm Dr: Da Phillip DO Tissues: A FNA SLIDES NOPATH (RT THYR) B FNA SLIDES N (more content not included)... Normal The Counts Include [address] [facility] Thyrotropin [Units/volume] i n Serum or PlasmaOrdered By: Da Phillip on 03-26-2024 TSH Qn 1.31 m[IU]/L Normal 0.45-5.33 [facility] Comment on above: Result Comment: PERF ORMED BY: [facility] [address] [place] [address] PATHOLOGIST INVESTIGATOR [employer] JENNIFER HERNANDEZ M.D. Performed By: #### T 4T, TSH3, T3T ####[address] Thyroxine (T4) [Mass/volume] in Serum or PlasmaOrdered By: Da Phillip on 03-26-2024 T4 [Mass/Vol] 9.37 ug/dL Normal 5.39-11.82 [facility] Comment on above: Performed By: #### T 4T, TSH3, T3T ####[place] [id number] [facility] Triiodothyronine (T3) Totalo n 03-26-2024 Triiodothyronine (T3) Total 0.90 ng/mL Normal 0.87-1.78 The Counts Include [address] [facility] Comment on above: Performed By: #### T 4T, TSH3, T3T ####[place] [id number] [facility] Triiodothyronine (T3) [Mass/ volume] in Serum or PlasmaOrdered By: Da Phillip on 03-26-2024 T3 [Mass/Vol] 0.90 ng/mL 0.87-1.78 [facility] Kobe 02-14-2024 L Specimen: [id number] Received: 02/17/24 Status: SOULyudmila Req Num: [id number] Spec Type: Cytology Subm Dr: Aggie Davis, BURRING WHEEL OPERATOR Tissues: A FNA SLIDES NOPATH (RT THYROID NOD) B FNA SLIDES NOPATH (ISTHMUS THY) Procedures: Cyto Int and Re/2, PAPSTN/10 Age/ Patient Sex Location Account Attending Physician Virgen Gonzales 68/F [place] [id number] Aggie Davis, PRESLEY SPEC NUM: [id number] RECD: 02/17/24 STATUS: ANIRUDH REQ NUM: [id number] AMY: 02/14/24- SUBM DR: Aggie Davis, PRESLEY ENTERED: 02/17/[address]: Dina,Lab Becky Avilez MD SPEC TYPE: Cytology DEPT: POP NCYT ENTERED BY: [id number] RECV BY: [id number] ORDERED: Cyto Int and Re/2, PAPSTN/10 ORDERED: Cyto Int and Re/2, PAPSTN/10 Pathological Diagnosis A. Right thyroid,?fine needle aspiration:? Suspicious for follicular neoplasm, Atypical Follicular Cells With Abundant Colloid. Reynolds Category IV B. Isthmus, fine needle aspiration:? Unsatisfactory for evaluation. Too few epithelial cells. Reynolds?Category?I Clinical Information Thyroid Nodules Gross Description A. (RIGHT) Received fixed in Cytolyt is <1 ml very pale pink clear fluid for cytology said to have been obtained as right thyroid nodule-mid . ThinPrep preparations are prepared for microscopic examination. Also received are 4 spray fixed smeared slides to be stained pap aa Veracyte vial stored at -20 for microscopic examination.(NH/sc) B. (ISTHMUS) Received fixed in Cytolyt is (1 ml pink clear fluid for cytology said to have ---- Specimen: Received: 02/17/24 Status: ANIRUDH Ledesmaq Num: [id number] Spec Type: Cytology Subm Dr: Aggie Davis CNP Tissues: A FNA SLIDES NOPATH (RT THYROID NOD) B FNA SLIDES NOPATH (ISTHMUS THY) Procedures: Cyto Int and Re/2, PAPSTN/10 ---- Patient: Virgen Gonzales [id number] (Continued) ---- Specimen: [id number] Received: 02/17/24 (Continued) Gross Description (Continued) Signed (signature on file) Nishant Morley MD 02/19/24 1428 ---- Specimen: [id number] Received: 02/17/24 Status: ANIRUDH Andrade Num: [id number] Spec Type: Cytology Subm Dr: Aggie Davis, BURRING WHEEL OPERATOR Tissues: A FNA SLIDES NOPATH (RT THYROID NOD) B FNA SLIDES NOPATH (ISTHMUS THY) Procedures: Cyto Int and Re/2, PAPSTN/10 ---- Patient: Virgen Gonzales [id number] (Continued) ---- Specimen: [id number] Received: 02/17/24 (Continued) Gross Description (Continued) been obtained as Isthmus thyroid nodule. ThinPrep preparations are prepared for microscopic examination. Also received are 4 spray fixed smeared smeared slides to be stained pap and a Veracyte vial stored at -20 for microscopic examination.(NH/sc) CPT Codes 31644z7 ---- ---- Specimen: [id number] Received: 02/17/24 Status: ANIRUDH Andrade Num: [id number] Spec Type: Cytology Subm Dr: Aggie Davis CNP Tissues: A FNA SLIDES NOPATH (RT THYROID NOD) B FNA SLIDES NOPATH (ISTHMUS THY) Procedures: Cyto Int and Re/2, PAPSTN/10 ---- Patient: Virgen Gonzales [id number] (Continued) ---- Signed (signature on file) Nishant Morely MD 02/19/24 1428 Normal The Counts Include 234 Beds At [facility] Nonvisit Note - PTon 024 Nonvisit Note - PT Pt cancelled reassessment due to being sick. AMManju Normal [facility] Nonvisit Note - PTon 024 Nonvisit Note - PT Pt no showed for 171 5 appointment. Normal [facility] Nonvisit Note - PTon 024 Nonvisit Note - PT Pt called to cancel as she is ill. Normal [facility] Consent for Treatmenton 10-28 Consent for Treatment [id number] [id number]#1.0 [facility] PT - Assessmentson PT - Assessments [id number] 22 [id number]#1.0 0[facility] PT - Consentson 11-19-2023 PT - Consents [id number] 22 [id number]#1.0 0[facility] Insurance Correspondenceon 0 11-12-2023 Insurance Correspondence [id number]#1. 00TIFF Normal [facility] PT - Orderson 11-11-2023 PT - Orders [id number] 01 [id number]#1. 00TIFF Normal [facility] L Inj/Asp: L kneeon 08-27-19 24 Sue Henning, BEN T 09/02/2023 8:37 AM L Inj/Asp: L knee on 08/27/2023 3:43 PM Indications: pain Details: 21 G needle, lateral approach Medications: 16 mg hylan 16 MG/2ML Consent was given by the patient. Pending sale to [facility] PROF 14(COMP METB)on 023 Albumin [Mass/Vol] 3.2 g/dL Critically low 3.4-5.0 [facility] Comment on above: Performed By: #### T SH, CMP, T7, LIPID #### [facility] [address] [address] [address] Danay De Los Santos Albumin/Globulin [Mass ratio] 1.0 {ratio} Normal [facility] Comment on above: Performed By: #### T SH, CMP, T7, LIPID #### [facility] [address] [address] [address] Danay De Los Santos ALP [Catalytic activity/Vol] 92 U/L Normal 46-116 [facility] Comment on above: Performed By: #### T SH, CMP, T7, LIPID #### [facility] [address] [address] [address] Danay De Los Santos ALT [Catalytic activity/Vol] 21 U/L Normal 14-59 [facility] Comment on above: Performed By: #### T SH, CMP, T7, LIPID #### [facility] [address] [address] [address] Danay De Los Santos Anion gap [Moles/Vol] 13.2 mmol/L Normal [facility] Comment on above: Performed By: #### T SH, CMP, T7, LIPID #### [facility] [address] [address] [address] Danay De Los Santos AST [Catalytic activity/Vol] 14 U/L Critically low 15-37 [facility] Comment on above: Performed By: #### T SH, CMP, T7, LIPID #### [facility] [address] [address] [address] Danay De Los Santos Bilirubin [Mass/Vol] 0.2 mg/dL Normal 0.2-1.0 [facility] Comment on above: Performed By: #### T SH, CMP, T7, LIPID #### [facility] [address] [place] [address] Dr. Danay De Los Santos Calcium [Mass/Vol] 8.6 mg/dL Normal 8.5-10.1 [facility] Comment on above: Performed By: #### T SH, CMP, T7, LIPID #### [facility] [address] [address] [address] Danay De Los Santos Chloride [Moles/Vol] 105 mmol/L Normal 98-107 [facility] Comment on above: Performed By: #### T SH, CMP, T7, LIPID #### [facility] [address] [place] [address] Dr. Danay De Los Santos CO2 [Moles/Vol] 27.9 mmol/L Normal 21.0-32.0 [facility] Comment on above: Performed By: #### T SH, CMP, T7, LIPID #### [facility] [address] [place] [address] Dr. Danay De Los Santos Creatinine [Mass/Vol] 1.47 mg/dL Critically high 0.55-1.02 [facility] Comment on above: Performed By: #### T SH, CMP, T7, LIPID #### [facility] [address] [place] [address] Dr. Danay De Los Santos EGFR-AF KOSOVAN 43 mL/min/1.73m2 Critically low >=60 [facility] Comment on above: Performed By: #### T SH, CMP, T7, LIPID #### [facility] [address] [place] [address] Dr. Danay De Los Santos EGFR-NON AF KOSOVAN 35 mL/min/1.73m2 Critically low >=60 [facility] Comment on above: Performed By: #### T SH, CMP, T7, LIPID #### [facility] [address] [place] [address] Dr. Danay De Los Santos Globulin (S) [Mass/Vol] 3.3 g/dL Normal [facility] Comment on above: Performed By: #### T SH, CMP, T7, LIPID #### [facility] [address] [place] [address] Dr. Danay De Los Santos Glucose [Mass/Vol] 145 mg/dL Critically high 74-106 [facility] Comment on above: Performed By: #### T SH, CMP, T7, LIPID #### [facility] [address] [place] [address] Dr. Danay De Los Santos Potassium [Moles/Vol] 4.1 mmol/L Normal 3.5-5.1 [facility] Comment on above: Performed By: #### T SH, CMP, T7, LIPID #### [facility] [address] [place] [address] Dr. Danay De Los Santos Protein [Mass/Vol] 6.5 g/dL Normal 6.4-8.2 [facility] Comment on above: Performed By: #### T SH, CMP, T7, LIPID #### [facility] [address] [place] [address] Dr. Danay De Los Santos Sodium [Moles/Vol] 142 mmol/L Normal 136-145 [facility] Comment on above: Performed By: #### T SH, CMP, T7, LIPID #### [facility] [address] [place] [address] Dr. Danay De Los Santos Urea nitrogen [Mass/Vol] 22.0 mg/dL Critically high 7.0-18.0 [facility] Comment on above: Performed By: #### T SH, CMP, T7, LIPID #### [facility] [address] [place] [address] Dr. Danay De Los Santos Urea nitrogen/Creatinine [Mass ratio] 15.0 mg/mg Normal [facility] Comment on above: Performed By: #### T SH, CMP, T7, LIPID #### [facility] [address] [place] [address] Dr. Danay De Los Santos PROF CHEM 8 (BAS METB)on Anion gap [Moles/Vol] 12.1 mmol/L Normal [facility] Comment on above: Performed By: #### B MP #### [facility] [address] [address] [address] Danay De Los Santos Calcium [Mass/Vol] 8.8 mg/dL Normal 8.5-10.1 [facility] Comment on above: Performed By: #### B MP #### [facility] [address] [address] [address] Danay De Los Santos Chloride [Moles/Vol] 103 mmol/L Normal 98-107 [facility] Comment on above: Performed By: #### B MP #### [facility] [address] [address] [address] Danay De Los Santos CO2 [Moles/Vol] 28.6 mmol/L Normal 21.0-32.0 [facility] Comment on above: Performed By: #### B MP #### [facility] [address] [address] [address] Danay De Los Santos Creatinine [Mass/Vol] 2.08 mg/dL Critically high 0.55-1.02 [facility] Comment on above: Performed By: #### B MP #### [facility] [address] [address] [address] Danay De Los Santos EGFR-AF KOSOVAN 29 mL/min/1.73m2 Critically low >=60 [facility] Comment on above: Performed By: #### B MP #### [facility] [address] [address] [address] Danay De Los Santos EGFR-NON AF KOSOVAN 24 mL/min/1.73m2 Critically low >=60 [facility] Comment on above: Performed By: #### B MP #### [facility] [address] [address] [address] Danay De Los Santos Glucose [Mass/Vol] 259 mg/dL Critically high 74-106 [facility] Comment on above: Performed By: #### B MP #### [facility] [address] [address] [address] Danay De Los Santos Potassium [Moles/Vol] 4.7 mmol/L Normal 3.5-5.1 [facility] Comment on above: Performed By: #### B MP #### [facility] [address] [place] [address] Dr. Danay De Los Santos Sodium [Moles/Vol] 139 mmol/L Normal 136-145 [facility] Comment on above: Performed By: #### B MP #### [facility] [address] [address] [address] Danay De Los Santos Urea nitrogen [Mass/Vol] 27.0 mg/dL Critically high 7.0-18.0 [facility] Comment on above: Performed By: #### B MP #### [facility] [address] [place] [address] Dr. Danay De Los Santos Urea nitrogen/Creatinine [Mass ratio] 13.0 mg/mg Normal [facility] Comment on above: Performed By: #### B MP #### [facility] [address] [place] [address] Dr. Danay De Los Santos INSULINon 12-17-2022 Insulin 11.1 uIU/mL Normal 2.6-24.9 [facility] Comment on above: Performed By: #### I NSULIN #### [facility] [address] [place] [address] Dr. Danay De Los Santos BNPon 12-15-2022 Natriuretic peptide B (Bld) [Mass/Vol] 110.0 pg/mL Normal <=900.0 [facility] Comment on above: Performed By: #### T SH, CMP, T7, LIPID #### [facility] [address] [place] [address] Dr. Danay De Los Santos CBC AUTO DIFFon 12-15-2022 BASO # 0.1 103/ul Normal 0.0-0.1 [facility] Comment on above: Performed By: #### T SH, CMP, T7, LIPID #### [facility] [address] [place] [address] Dr. Danay De Los Santos Basophils/100 WBC (Bld) 0.5 % Normal 0.2-2.0 [facility] Comment on above: Performed By: #### T SH, CMP, T7, LIPID #### [facility] [address] [address] [address] Danay De Los Santos EO # 0.7 103/ul Normal 0.0-0.7 [facility] Comment on above: Performed By: #### T SH, CMP, T7, LIPID #### [facility] [address] [place] [address] Dr. Danay De Los Santos Eosinophils/100 WBC (Bld) 6.0 % Normal 0.9-7.0 [facility] Comment on above: Performed By: #### T SH, CMP, T7, LIPID #### [facility] [address] [place] [address] Dr. Danay De Los Santos Erythrocyte distribution width (RBC) [Ratio] 15.6 % Critically high 11.0-15.0 [facility] Comment on above: Performed By: #### T SH, CMP, T7, LIPID #### [facility] [address] [place] [address] Dr. Danay De Los Santos Hematocrit (Bld) [Volume fraction] 40.2 % Normal 36.0-48.0 [facility] Comment on above: Performed By: #### T SH, CMP, T7, LIPID #### [facility] [address] [place] [address] Dr. Danay De Los Santos Hemoglobin (Bld) [Mass/Vol] 12.6 g/dL Normal 12.0-16.0 [facility] Comment on above: Performed By: #### T SH, CMP, T7, LIPID #### [facility] [address] [place] [address] Dr. Danay De Los Santos IG # 0.06 10e3/ul Critically high 0.00-0.03 [facility] Comment on above: Performed By: #### T SH, CMP, T7, LIPID #### [facility] [address] [place] [address] Dr. Danay De Los Santos IG % 0.5 % Normal 0.0-0.5 [facility] Comment on above: Performed By: #### T SH, CMP, T7, LIPID #### [facility] [address] [address] [address] Danay De Los Santos LYMPH # 3.2 103/ul Normal 1.2-3.8 [facility] Comment on above: Performed By: #### T SH, CMP, T7, LIPID #### [facility] [address] [address] [address] Danay De Los Santos Lymphocytes/100 WBC (Bld) 28.9 % Normal 20.5-60.0 [facility] Comment on above: Performed By: #### T SH, CMP, T7, LIPID #### [facility] [address] [place] [address] Dr. Danay De Los Santos MANUAL DIFF REQ NO Normal [facility] Comment on above: Performed By: #### T SH, CMP, T7, LIPID #### [facility] [address] [place] [address] Dr. Danay De Los Santos MCH (RBC) [Entitic mass] 27.3 pg Normal 26.7-34.0 [facility] Comment on above: Performed By: #### T SH, CMP, T7, LIPID #### [facility] [address] [place] [address] Dr. Danay De Los Santos MCHC (RBC) [Mass/Vol] 31.3 g/dL Normal 29.9-35.2 [facility] Comment on above: Performed By: #### T SH, CMP, T7, LIPID #### [facility] [address] [place] [address] Dr. Danay De Los Santos MCV (RBC) [Entitic vol] 87.2 fL Normal 81.0-99.0 [facility] Comment on above: Performed By: #### T SH, CMP, T7, LIPID #### [facility] [address] [place] [address] Dr. Danay De Los Santos MONO # 0.6 103/ul Normal 0.3-0.8 [facility] Comment on above: Performed By: #### T SH, CMP, T7, LIPID #### [facility] [address] [place] [address] Dr. Danay De Los Santos Monocytes/100 WBC (Bld) 5.7 % Normal 1.7-12.0 [facility] Comment on above: Performed By: #### T SH, CMP, T7, LIPID #### [facility] [address] [place] [address] Dr. Danay De Los Santos NEUT # 6.4 103/ul Normal 1.4-6.5 [facility] Comment on above: Performed By: #### T SH, CMP, T7, LIPID #### [facility] [address] [place] [address] Dr. Danay De Los Santos Neutrophils/100 WBC (Bld) 58.4 % Normal 43.0-75.0 [facility] Comment on above: Performed By: #### T SH, CMP, T7, LIPID #### [facility] [address] [place] [address] Dr. Danay De Los Santos Platelet mean volume (Bld) [Entitic vol] 10.6 fL Normal 9.5-13.5 [facility] Comment on above: Performed By: #### T SH, CMP, T7, LIPID #### [facility] [address] [place] [address] Dr. Danay De Los Santos PLT 251 103/ul Normal 150-450 [facility] Comment on above: Performed By: #### T SH, CMP, T7, LIPID #### [facility] [address] [place] [address] Dr. Danay De Los Santos RBC 4.61 106/ul Normal 4.20-5.40 [facility] Comment on above: Performed By: #### T SH, CMP, T7, LIPID #### [facility] [address] [place] [address] Dr. Danay De Los Santos WBC 10.9 103/ul Normal 4.0-11.0 [facility] Comment on above: Performed By: #### T SH, CMP, T7, LIPID #### [facility] [address] [place] [address] Dr. Danay De Los Santos FREE THYROXINE INDEX T7on FTI 2.87 Normal 1.30-4.50 [facility] Comment on above: Performed By: #### T SH, CMP, T7, LIPID #### [facility] [address] [address] [address] Danay De Los Santos T3U 35.0 % Normal 30.0-39.0 [facility] Comment on above: Performed By: #### T SH, CMP, T7, LIPID #### [facility] [address] [address] [address] Danay De Los Santos T4 [Mass/Vol] 8.20 ug/dL Normal 4.80-13.90 [facility] Comment on above: Performed By: #### T SH, CMP, T7, LIPID #### [facility] [address] [place] [address] Dr. Danay De Los Santos GLYCOHEMOGLOBIN A1Con 2022 ADA RECOMMENDATION SEE BELOW Normal [facility] Comment on above: Result Comment: ADA RECOMMENDED LIMIT 4.0 - 6.0 ADA THERAPEUTIC TARGET < 7.0 ACTION SUGGESTED > 7.0 Performed By: #### A 1C #### [facility] [address] [place] [address] Dr. Danay De Los Santos Glucose [Mass/Vol] 203 mg/dL Normal [facility] Comment on above: Performed By: #### A 1C #### [facility] [address] [place] [address] Dr. Danay De Los Santos HbA1c (Bld) [Mass fraction] 8.7 % Critically high 4.5-6.2 [facility] Comment on above: Performed By: #### A 1C #### [facility] [address] [place] [address] Dr. Danay De Los Santos IRONon 12-15-2022 Iron [Mass/Vol] 39.0 ug/dL Critically low 50.0-170.0 [facility] Comment on above: Performed By: #### T SH, CMP, T7, LIPID #### [facility] [address] [place] [address] Dr. Danay De Los Santos LIPID PROFILEon 12-15-2022 CHOL-HDL RATIO NORM SEE BELOW Normal [facility] Comment on above: Result Comment: 3.3 - 4.4 LOW RISK 4.4 - 7.1 AVERAGE RISK 7.1 - 11.0 MODERATE RISK >11.0 HIGH RISK Performed By: #### T SH, CMP, T7, LIPID #### [facility] [address] [address] [address] Danay De Los Santos Cholesterol [Mass/Vol] 123 mg/dL Normal <=[address] [facility] Comment on above: Performed By: #### T SH, CMP, T7, LIPID #### [facility] [address] [address] [address] Danay De Los Santos Cholesterol in HDL [Mass/Vol] 40 mg/dL Normal 40-60 [facility] Comment on above: Performed By: #### T SH, CMP, T7, LIPID #### [facility] [address] [place] [address] Dr. Danay De Los Santos Cholesterol in LDL [Mass/Vol] 70.4 mg/dL Normal [facility] Comment on above: Performed By: #### T SH, CMP, T7, LIPID #### [facility] [address] [place] [address] Dr. Danay De Los Santos Cholesterol.total/Vivian sterol in HDL [Mass ratio] 3.1 {ratio} Normal [facility] Comment on above: Performed By: #### T SH, CMP, T7, LIPID #### [facility] [address] [place] [address] Dr. Danay De Los Santos HDL NORMAL > or = 60 mg/dl - LO W CARDIOVASCULAR RISK <40 mg/dl - HIGH CARDIOVASCULAR RISK Normal [facility] Comment on above: Performed By: #### T SH, CMP, T7, LIPID #### [facility] [address] [place] [address] Dr. Danay De Los Santos LDL CALC NORMAL SEE BELOW Normal [facility] Comment on above: Result Comment: <100 mg/dl OPTIMAL 100 - 129 mg/dl NEAR OR ABOVE OPTIMAL 130 - 159 mg/dl BORDERLINE HIGH 160 - 189 mg/dl HIGH >190 mg/dl VERY HIGH Performed By: #### T SH, CMP, T7, LIPID #### [facility] [address] [place] [address] Dr. Danay De Los Santos Triglyceride [Mass/Vol] 63 mg/dL Normal <=150 T [facility] Comment on above: Performed By: #### T SH, CMP, T7, LIPID #### [facility] [address] [address] [address] Danay De Los Santos VLDL CALC 12.6 mg/dL Normal [facility] Comment on above: Performed By: #### T SH, CMP, T7, LIPID #### [facility] [address] [address] [address] Danay De Los Santos PROF 14(COMP METB)on 023 Albumin [Mass/Vol] 3.3 g/dL Critically low 3.4-5.0 [facility] Comment on above: Performed By: #### T SH, CMP, T7, LIPID #### [facility] [address] [place] [address] Dr. Danay De Los Santos Albumin/Globulin [Mass ratio] 1.0 {ratio} Normal [facility] Comment on above: Performed By: #### T SH, CMP, T7, LIPID #### [facility] [address] [place] [address] Dr. Danay De Los Santos ALP [Catalytic activity/Vol] 94 U/L Normal 46-116 [facility] Comment on above: Performed By: #### T SH, CMP, T7, LIPID #### [facility] [address] [place] [address] Dr. Danay De Los Santos ALT [Catalytic activity/Vol] 17 U/L Normal 14-59 [facility] Comment on above: Performed By: #### T SH, CMP, T7, LIPID #### [facility] [address] [place] [address] Dr. Danay De Los Santos Anion gap [Moles/Vol] 14.3 mmol/L Normal [facility] Comment on above: Performed By: #### T SH, CMP, T7, LIPID #### [facility] [address] [place] [address] Dr. Danay De Los Santos AST [Catalytic activity/Vol] 11 U/L Critically low 15-37 [facility] Comment on above: Performed By: #### T SH, CMP, T7, LIPID #### [facility] [address] [address] [address] Danay De Los Santos Bilirubin [Mass/Vol] 0.3 mg/dL Normal 0.2-1.0 [facility] Comment on above: Performed By: #### T SH, CMP, T7, LIPID #### [facility] [address] [address] [address] Danay De Los Santos Calcium [Mass/Vol] 9.1 mg/dL Normal 8.5-10.1 [facility] Comment on above: Performed By: #### T SH, CMP, T7, LIPID #### [facility] [address] [address] [address] Danay De Los Santos Chloride [Moles/Vol] 105 mmol/L Normal 98-107 [facility] Comment on above: Performed By: #### T SH, CMP, T7, LIPID #### [facility] [address] [place] [address] Dr. Danay De Los Santos CO2 [Moles/Vol] 29.3 mmol/L Normal 21.0-32.0 [facility] Comment on above: Performed By: #### T SH, CMP, T7, LIPID #### [facility] [address] [address] [address] Danay De Los Santos Creatinine [Mass/Vol] 1.53 mg/dL Critically high 0.55-1.02 [facility] Comment on above: Performed By: #### T SH, CMP, T7, LIPID #### [facility] [address] [address] [address] Danay De Los Santos EGFR-AF KOSOVAN 41 mL/min/1.73m2 Critically low >=60 [facility] Comment on above: Performed By: #### T SH, CMP, T7, LIPID #### [facility] [address] [address] [address] Danay De Los Santos EGFR-NON AF KOSOVAN 34 mL/min/1.73m2 Critically low >=60 [facility] Comment on above: Performed By: #### T SH, CMP, T7, LIPID #### [facility] [address] [address] [address] Danay De Los Santos Globulin (S) [Mass/Vol] 3.4 g/dL Normal [facility] Comment on above: Performed By: #### T SH, CMP, T7, LIPID #### [facility] [address] [address] [address] Danay De Los Santos Glucose [Mass/Vol] 192 mg/dL Critically high 74-106 [facility] Comment on above: Performed By: #### T SH, CMP, T7, LIPID #### [facility] [address] [place] [address] Dr. Danay De Los Santos Potassium [Moles/Vol] 4.6 mmol/L Normal 3.5-5.1 [facility] Comment on above: Performed By: #### T SH, CMP, T7, LIPID #### [facility] [address] [place] [address] Dr. Danay De Los Santos Protein [Mass/Vol] 6.7 g/dL Normal 6.4-8.2 [facility] Comment on above: Performed By: #### T SH, CMP, T7, LIPID #### [facility] [address] [place] [address] Dr. Danay De Los Santos Sodium [Moles/Vol] 144 mmol/L Normal 136-145 [facility] Comment on above: Performed By: #### T SH, CMP, T7, LIPID #### [facility] [address] [place] [address] Dr. Danay De Los Santos Urea nitrogen [Mass/Vol] 25.0 mg/dL Critically high 7.0-18.0 [facility] Comment on above: Performed By: #### T SH, CMP, T7, LIPID #### [facility] [address] [place] [address] Dr. Danay De Los Santos Urea nitrogen/Creatinine [Mass ratio] 16.3 mg/mg Normal [facility] Comment on above: Performed By: #### T SH, CMP, T7, LIPID #### [facility] [address] [place] [address] Dr. Danay De Los Santos TSHon 12-15-2022 TSH 2.181 uIU/mL Normal 0.358-3.740 [facility] Comment on above: Performed By: #### T SH, CMP, T7, LIPID #### [facility] [address] [place], [place] [address] Dr. Danay De Los Santos VITAMIN D 25 OHon 12-15-2022 VIT D 25-OH 32.9 ng/mL Normal [facility] Comment on above: Performed By: #### T SH, CMP, T7, LIPID #### [facility] [address] [place], [place] [address] Dr. Danay De Los Santos VIT D RANGES SEE BELOW Normal [facility] Comment on above: Result Comment: <20 ng/mL Vit D deficient 20 - <30 ng/mL Vit D insufficient 30 - 100 ng/mL Vit D sufficient >100 ng/mL Potential Toxicity Performed By: #### T SH, CMP, T7, LIPID #### [facility] [address], [place] [address] Dr. Danay De Los Santos US ROEL [...] by: MORIAH MORRISON Date: 2022-12-01 12:54 Normal [facility] XR Hand Complete Left*on XR Hand Complete Left* CLINICAL HISTORY: Fall with left hand stiffness. COMPARISON: None. RESULT: No distinct acute fracture. No dislocation. Underlying decreased bone mineral density. Mild to moderate scattered degenerative changes. Soft tissue edema. IMPRESSION: No acute osseous findings radiographically. Report reported and signed by Home Lockwood on 08/24/2022 1108 Normal [facility] XR Spine Cervical Complete*o n 08-24-2022 XR [...] by Home Lockwood on 08/24/2022 1109 Normal [facility] XR HAND RIMA MIN 3Von 023 XR HAND RIMA MIN 3V EXAM: XR HAND RIMA NC N 3V HISTORY: Pain following fall COMPARISON: None. TECHNIQUE: 3 views of each hand FINDINGS: No visualized fracture, dislocation, subluxation or osseous lesion. Age-related joint space changes. No gross visualized soft tissue edema. IMPRESSION: No visualized abnormality Electronically authenticated by: BRIANNA KU Date: 2022-08-06 20:28 Normal [facility] XR HIP RT 2 3V W [...] BRIANNA KU Date: 2022-08-06 20:29 Normal [facility] XR SHOULDER RT 2V or [...] BRIANNA KU Date: 2022-08-06 20:21 Normal [facility] XR Foot Complete Left*on XR Foot Complete Left* COMPARISON: None available HISTORY: Second and third digit pain after a fall TECHNIQUE: AP, lateral and oblique views of the foot obtained. FINDINGS: No acute fracture or dislocation. Joint spaces are preserved. Soft tissues are within normal limits. IMPRESSION: No acute osseous abnormality. Report reported and signed by Drew Looney on 08/04/2022 1044 Normal [facility] XR Knee Complete Left*on XR Knee Complete Left* HISTORY: Knee key n since a fall TECHNIQUE: AP, lateral and oblique views of the knee obtained. COMPARISON: Radiographs of the knee 04/06/2019 FINDINGS: No acute fracture or dislocation. Joint spaces of the knee are maintained. No knee joint effusion. Soft tissues are within normal limits. IMPRESSION: No acute osseous abnormality. Report reported and signed by Drew Looney on 08/04/2022 1046 Normal [facility] MRI BRAIN WO CONon MRI BRAIN WO CON EXAMINATION: MRI BRA [...] BRIANNA GREEN Date: 2022-07-02 14:48 Normal [facility] INSULINon 05-28-2022 Insulin 13.4 uIU/mL Normal 2.6-24.9 [facility] Comment on above: Performed By: #### I NSULIN #### [facility] [address] [place] [id number] [address] Danay De Los Santos CBC AUTO DIFFon 05-26-2022 BASO # 0.1 103/ul Normal 0.0-0.1 [facility] Comment on above: Performed By: #### C BC #### [facility] [address] [place] [address] Dr. Danay De Los Santos Basophils/100 WBC (Bld) 0.8 % Normal 0.2-2.0 [facility] Comment on above: Performed By: #### C BC #### [facility] [address] [place] [address] Dr. Danay De Los Santos EO # 0.6 103/ul Normal 0.0-0.7 [facility] Comment on above: Performed By: #### C BC #### [facility] [address] [place] [address] Dr. Danay De Los Santos Eosinophils/100 WBC (Bld) 5.1 % Normal 0.9-7.0 [facility] Comment on above: Performed By: #### C BC #### [facility] [address] [place] [address] Dr. Danay De Los Santos Erythrocyte distribution width (RBC) [Ratio] 14.7 % Normal 11.0-15.0 [facility] Comment on above: Performed By: #### C BC #### [facility] [address] [place] [address] Dr. Danay De Los Santos Hematocrit (Bld) [Volume fraction] 37.8 % Normal 36.0-48.0 [facility] Comment on above: Performed By: #### C BC #### [facility] [address] [place] [address] Dr. Danay De Los Santos Hemoglobin (Bld) [Mass/Vol] 12.3 g/dL Normal 12.0-16.0 [facility] Comment on above: Performed By: #### C BC #### [facility] [address] [place] [address] Dr. Danay De Los Santos IG # 0.05 10e3/ul Critically high 0.00-0.03 [facility] Comment on above: Performed By: #### C BC #### [facility] [address] [place] [address] Dr. Danay De Los Santos IG % 0.5 % Normal 0.0-0.5 [facility] Comment on above: Performed By: #### C BC #### [facility] [address] [place] [address] Dr. Danay De Los Santos LYMPH # 2.1 103/ul Normal 1.2-3.8 [facility] Comment on above: Performed By: #### C BC #### [facility] [address] [place] [address] Dr. Danay De Los Santos Lymphocytes/100 WBC (Bld) 19.1 % Critically low 20.5-60.0 [facility] Comment on above: Performed By: #### C BC #### [facility] [address] [place] [address] Dr. Danay De Los Santos MANUAL DIFF REQ NO Normal [facility] Comment on above: Performed By: #### C BC #### [facility] [address] [place] [address] Dr. Danay De Los Santos MCH (RBC) [Entitic mass] 30.8 pg Normal 26.7-34.0 [facility] Comment on above: Performed By: #### C BC #### [facility] [address] [place] [address] Dr. Danay De Los Santos MCHC (RBC) [Mass/Vol] 32.5 g/dL Normal 29.9-35.2 [facility] Comment on above: Performed By: #### C BC #### [facility] [address] [place] [address] Dr. Danay De Los Santos MCV (RBC) [Entitic vol] 94.5 fL Normal 81.0-99.0 [facility] Comment on above: Performed By: #### C BC #### [facility] [address] [place] [address] Dr. Danay De Los Santos MONO # 0.6 103/ul Normal 0.3-0.8 [facility] Comment on above: Performed By: #### C BC #### [facility] [address] [place] [address] Dr. Danay De Los Santos Monocytes/100 WBC (Bld) 5.1 % Normal 1.7-12.0 [facility] Comment on above: Performed By: #### C BC #### [facility] [address] [place] [address] Dr. Danay De Los Santos NEUT # 7.5 103/ul Critically high 1.4-6.5 [facility] Comment on above: Performed By: #### C BC #### [facility] [address] [place] [address] Dr. Danay De Los Santos Neutrophils/100 WBC (Bld) 69.4 % Normal 43.0-75.0 [facility] Comment on above: Performed By: #### C BC #### [facility] [address] [place] [address] Dr. Danay De Los Santos Platelet mean volume (Bld) [Entitic vol] 10.9 fL Normal 9.5-13.5 [facility] Comment on above: Performed By: #### C BC #### [facility] [address] [place] [address] Dr. Danay De Los Santos PLT 235 103/ul Normal 150-450 [facility] Comment on above: Performed By: #### C BC #### [facility] [address] [place] [address] Dr. Danay De Los Santos RBC 4.00 106/ul Critically low 4.20-5.40 [facility] Comment on above: Performed By: #### C BC #### [facility] [address] [place] [address] Dr. Danay De Los Santos WBC 10.8 103/ul Normal 4.0-11.0 [facility] Comment on above: Performed By: #### C BC #### [facility] [address] [place] [address] Dr. Danay De Los Santos FREE THYROXINE INDEX T7on FTI 1.83 Normal 1.30-4.50 [facility] Comment on above: Performed By: #### T SH, CMP, T7, LIPID #### [facility] [address] [place] [address] Dr. Danay De Los Santos T3U 31.0 % Normal 30.0-39.0 [facility] Comment on above: Performed By: #### T SH, CMP, T7, LIPID #### [facility] [address] [place] [address] Dr. Danay De Los Santos T4 [Mass/Vol] 5.90 ug/dL Normal 4.80-13.90 [facility] Comment on above: Performed By: #### T SH, CMP, T7, LIPID #### [facility] [address] [place] [address] [address] Danay De Los Santos GLYCOHEMOGLOBIN A1Con 2021 ADA RECOMMENDATION SEE BELOW Normal [facility] Comment on above: Result Comment: ADA RECOMMENDED LIMIT 4.0 - 6.0 ADA THERAPEUTIC TARGET < 7.0 ACTION SUGGESTED > 7.0 Performed By: #### A 1C #### [facility] [address] [address] [address] Danay De Los Santos Glucose [Mass/Vol] 186 mg/dL Normal [facility] Comment on above: Performed By: #### A 1C #### [facility] [address] [place] [address] Dr. Danay De Los Santos HbA1c (Bld) [Mass fraction] 8.1 % Critically high 4.5-6.2 [facility] Comment on above: Performed By: #### A 1C #### [facility] [address] [address] [address] Danay De Los Santos IRONon 05-26-2022 Iron [Mass/Vol] 61.0 ug/dL Normal 50.0-170.0 [facility] Comment on above: Performed By: #### T SH, CMP, T7, LIPID #### [facility] [address] [place] [address] Dr. Danay De Los Santos LIPID PROFILEon 05-26-2022 CHOL-HDL RATIO NORM SEE BELOW Normal [facility] Comment on above: Result Comment: 3.3 - 4.4 LOW RISK 4.4 - 7.1 AVERAGE RISK 7.1 - 11.0 MODERATE RISK >11.0 HIGH RISK Performed By: #### T SH, CMP, T7, LIPID #### [facility] [address] [address] [address] Danay De Los Santos Cholesterol [Mass/Vol] 130 mg/dL Normal <=200 [facility] Comment on above: Performed By: #### T SH, CMP, T7, LIPID #### [facility] [address] [address] [address] Danay De Los Santos Cholesterol in HDL [Mass/Vol] 40 mg/dL Normal 40-60 [facility] Comment on above: Performed By: #### T SH, CMP, T7, LIPID #### [facility] [address] [address] [address] Danay De Los Santos Cholesterol in LDL [Mass/Vol] 75.8 mg/dL Normal [facility] Comment on above: Performed By: #### T SH, CMP, T7, LIPID #### [facility] [address] [address] [address] Danay De Los Santos Cholesterol.total/Vivian sterol in HDL [Mass ratio] 3.3 {ratio} Normal [facility] Comment on above: Performed By: #### T SH, CMP, T7, LIPID #### [facility] [address] [address] [address] Danay De Los Santos HDL NORMAL > or = 60 mg/dl - LO W CARDIOVASCULAR RISK <40 mg/dl - HIGH CARDIOVASCULAR RISK Normal [facility] Comment on above: Performed By: #### T SH, CMP, T7, LIPID #### [facility] [address] [address] [address] Danay De Los Santos LDL CALC NORMAL SEE BELOW Normal [facility] Comment on above: Result Comment: <100 mg/dl OPTIMAL 100 - 129 mg/dl NEAR OR ABOVE OPTIMAL 130 - 159 mg/dl BORDERLINE HIGH 160 - 189 mg/dl HIGH >190 mg/dl VERY HIGH Performed By: #### T SH, CMP, T7, LIPID #### [facility] [address] [address] [address] Danay De Los Santos Triglyceride [Mass/Vol] 71 mg/dL Normal <=150 [facility] Comment on above: Performed By: #### T SH, CMP, T7, LIPID #### [facility] [address] [place] [address] Dr. Danay De Los Santos VLDL CALC 14.2 mg/dL Normal [facility] Comment on above: Performed By: #### T SH, CMP, T7, LIPID #### [facility] [address] [address] [address] Danay De Los Santos PROF 14(COMP METB)on 022 Albumin [Mass/Vol] 3.4 g/dL Normal 3.4-5.0 [facility] Comment on above: Performed By: #### T SH, CMP, T7, LIPID #### [facility] [address] [address] [address] Danay De Los Santos Albumin/Globulin [Mass ratio] 1.0 {ratio} Normal [facility] Comment on above: Performed By: #### T SH, CMP, T7, LIPID #### [facility] [address] [address] [address] Danay De Los Santos ALP [Catalytic activity/Vol] 92 U/L Normal 46-116 [facility] Comment on above: Performed By: #### T SH, CMP, T7, LIPID #### [facility] [address] [place] [address] Dr. Danay De Los Santos ALT [Catalytic activity/Vol] 15 U/L Normal 14-59 [facility] Comment on above: Performed By: #### T SH, CMP, T7, LIPID #### [facility] [address] [address] [address] Danay De Los Santos Anion gap [Moles/Vol] 10.4 mmol/L Normal [facility] Comment on above: Performed By: #### T SH, CMP, T7, LIPID #### [facility] [address] [place] [address] [address] Danay De Los Santos AST [Catalytic activity/Vol] 12 U/L Critically low 15-37 [facility] Comment on above: Performed By: #### T SH, CMP, T7, LIPID #### [facility] [address] [place] [address] [address] Danay De Los Santos Bilirubin [Mass/Vol] 0.4 mg/dL Normal 0.2-1.0 [facility] Comment on above: Performed By: #### T SH, CMP, T7, LIPID #### [facility] [address] [address] [address] Danay De Los Santos Calcium [Mass/Vol] 8.7 mg/dL Normal 8.5-10.1 [facility] Comment on above: Performed By: #### T SH, CMP, T7, LIPID #### [facility] [address] [place] [address] [address] Danay De Los Santos Chloride [Moles/Vol] 107 mmol/L Normal 98-107 [facility] Comment on above: Performed By: #### T SH, CMP, T7, LIPID #### [facility] [address] [address] [address] Danay De Los Santos CO2 [Moles/Vol] 28.9 mmol/L Normal 21.0-32.0 [facility] Comment on above: Performed By: #### T SH, CMP, T7, LIPID #### [facility] [address] [place] [address] Dr. Danay De Los Santos Creatinine [Mass/Vol] 1.18 mg/dL Critically high 0.55-1.02 [facility] Comment on above: Performed By: #### T SH, CMP, T7, LIPID #### [facility] [address] [place] [address] Dr. Danay De Los Santos EGFR-AF KOSOVAN 55 mL/min/1.73m2 Critically low >=60 [facility] Comment on above: Performed By: #### T SH, CMP, T7, LIPID #### [facility] [address] [place] [address] Dr. Danay De Los Santos EGFR-NON AF KOSOVAN 46 mL/min/1.73m2 Critically low >=60 [facility] Comment on above: Performed By: #### T SH, CMP, T7, LIPID #### [facility] [address] [address] [address] Danay De LosS antos Globulin (S) [Mass/Vol] 3.3 g/dL Normal [facility] Comment on above: Performed By: #### T SH, CMP, T7, LIPID #### [facility] [address] [place] [address] Dr. Danay De Los Santos Glucose [Mass/Vol] 153 mg/dL Critically high 74-106 [facility] Comment on above: Performed By: #### T SH, CMP, T7, LIPID #### [facility] [address] [address] [address] Danay De Los Santos Potassium [Moles/Vol] 4.3 mmol/L Normal 3.5-5.1 [facility] Comment on above: Performed By: #### T SH, CMP, T7, LIPID #### [facility] [address] [place] [address] Dr. Danay De Los Santos Protein [Mass/Vol] 6.7 g/dL Normal 6.4-8.2 [facility] Comment on above: Performed By: #### T SH, CMP, T7, LIPID #### [facility] [address] [place] [address] Dr. Danay De Los Santos Sodium [Moles/Vol] 142 mmol/L Normal 136-145 [facility] Comment on above: Performed By: #### T SH, CMP, T7, LIPID #### [facility] [address] [place] [address] Dr. Danay De Los Santos Urea nitrogen [Mass/Vol] 16.0 mg/dL Normal 7.0-18.0 [facility] Comment on above: Performed By: #### T SH, CMP, T7, LIPID #### [facility] [address] [place] [address] Dr. Danay De Los Santos Urea nitrogen/Creatinine [Mass ratio] 13.6 mg/mg Normal [facility] Comment on above: Performed By: #### T SH, CMP, T7, LIPID #### [facility] [address] [place] [address] Dr. Danay De Los Santos TSHon 05-26-2022 TSH 1.443 uIU/mL Normal 0.358-3.740 [facility] Comment on above: Performed By: #### T SH, CMP, T7, LIPID #### [facility] [address] [place] [address] Dr. Danay De Los Santos XR DEXA [...] BECKY AVILEZ Date: 2022-04-05 12:11 Normal [facility] GLYCOHEMOGLOBIN A1Con 2021 ADA RECOMMENDATION SEE BELOW Normal [facility] Comment on above: Result Comment: ADA RECOMMENDED LIMIT 4.0 - 6.0 ADA THERAPEUTIC TARGET < 7.0 ACTION SUGGESTED > 7.0 Performed By: #### T SH, CMP, T7, LIPID #### [facility] [address] [address] [address] Danay De Los Santos Glucose [Mass/Vol] 174 mg/dL Normal [facility] Comment on above: Performed By: #### T SH, CMP, T7, LIPID #### [facility] [address] [address] [address] Danay De Los Santos HbA1c (Bld) [Mass fraction] 7.7 % Critically high 4.5-6.2 [facility] Comment on above: Performed By: #### T SH, CMP, T7, LIPID #### [facility] [address] [address] [address] Danay De Los Santos MG MAMM SCREEN 3D RIMA CADon 02-14-2022 MG MAMM SCREEN 3D RIMA CAD Patient: VIRGEN GONZALES Exam Date: 02/14/2022 : 1955 Gender:F Ordering : AGGIE DAVIS [facility] Admission #: [id number] Family : Order #: [id number] CLICK HERE TO VIEW EXAM RADIOLOGY REPORT [...] unknown cancer at age 24. LOCATION: [facility] BREAST COMPOSITION: Heterogeneously dense,which may [...] M.D. on 02/14/2022 at 16:12 Normal [facility] CARDIAC STRESS/REST INJE CTIONon 01-27-2020 [facility] CARDIAC STRESS/REST INJECTION Patient Name: VIRGEN GONZALES STUDY: MYOCARDIAL PERFUSION STRESS TEST WITH LEXISCAN Performing facility: [facility], [address] [place] [address], [address], [address] Provider: Catarino Koroma MD, [facility] WITH [facility] PCP: Dr. Nicola Granger Supervising provider: Catarino Koroma MD, [facility]ED [facility] INDICATION: Abnormal EKG; Pre-operative risk assessment for Knee surgery scheduled at unknown on unknown. RBBB HISTORY: Gender: F; Age: 64 y/o ; Height: 152.4 cm; Weight: 77.9078696 kg. High Cholesterol; Abnormal EKG; Diabetes; Family HX CAD; HTN; Smoking COMPARISON: No comparison. ACCESSION NUMBER(S): [id number]; [id number]; [id number] ORDERING CLINICIAN: CATARINO KOROMA TECHNIQUE: ONE DAY [...] comparison. Electronically signed by: CATARINO KOROMA MD [facility] Vital Signs Date Time Vital Sign Value Performing Clinician Swapnil ontiveros 09-21-2024 08:22-0500 Body height 152.4 cm Aggie Davis [employer]ITATION SERVICES DIRECTOR-C Work Phone: [facility] 09-21-2024 08:22-0500 Body mass index (BMI) [Ratio] 40.8 kg/m2 Aggie Davis REHABILITATION SERVICES DIRECTOR-C Work Phone: [facility] 09-21-2024 08:22-0500 Body weight 94.8 kg Aggie Davis REHABILITATION SERVICES DIRECTOR-C Work Phone: [facility] 09-21-2024 08:14-0500 Body temperature 97.5 [degF] Aggie Davis REHABILITATION SERVICES DIRECTOR-C Work Phone: [facility] 09-21-2024 08:14-0500 Diastolic blood pressure 75 mm[Hg] Aggie Davis REHABILITATION SERVICES DIRECTOR-C Work Phone: [facility] 09-21-2024 08:14-0500 Heart rate 86 /min Aggie Davis REHABILITATION SERVICES DIRECTOR-C Work Phone: [facility] 09-21-2024 08:14-0500 Respiratory rate 20 /min Aggie Davis REHABILITATION SERVICES DIRECTOR-C Work Phone: [facility] 09-21-2024 08:14-0500 Systolic blood pressure 121 mm[Hg] Aggie Davis REHABILITATION SERVICES DIRECTOR-C Work Phone: [facility] 09-07-2024 09:09-0500 Blood Pressure Location Kang BOSS [facility] 09-07-2024 09:09-0500 Diastolic blood pressure 74 mm[Hg] Kang BOSS [facility] 09-07-2024 09:09-0500 Heart rate 70 /min Kang BOSS [facility] 09-07-2024 09:09-0500 Respiratory rate 18 /min Kang BOSS [facility] 09-07-2024 09:09-0500 Systolic blood pressure 112 mm[Hg] Kang BOSS [facility] 08-31-2024 13:49-0500 Body height 152.4 cm Aggie Davis REHABILITATION SERVICES DIRECTOR-C Work Phone: [facility] 08-31-2024 13:49-0500 Body mass index (BMI) [Ratio] 39.9 kg/m2 Aggie Davis REHABILITATION SERVICES DIRECTOR-C Work Phone: [facility] 08-31-2024 13:49-0500 Body temperature 97.8 [degF] Aggie Davis REHABILITATION SERVICES DIRECTOR-C Work Phone: [facility] 08-31-2024 13:49-0500 Body weight 92.75 kg Aggie Susan REHABILITATION SERVICES DIRECTOR-C Work Phone: [facility] 08-31-2024 13:49-0500 Diastolic blood pressure 71 mm[Hg] Aggie Davis REHABILITATION SERVICES DIRECTOR-C Work Phone: [facility] 08-31-2024 13:49-0500 Heart rate 68 /min Aggie Davis REHABILITATION SERVICES DIRECTOR-C Work Phone: [facility] 08-31-2024 13:49-0500 Respiratory rate 18 /min Aggie Davis REHABILITATION SERVICES DIRECTOR-C Work Phone: [facility] 08-31-2024 13:49-0500 SaO2% (BldA) [Mass fraction] 98 % Aggie Davis REHABILITATION SERVICES DIRECTOR-C Work Phone: [facility] 08-31-2024 13:49-0500 Systolic blood pressure 106 mm[Hg] Aggie Davis REHABILITATION SERVICES DIRECTOR-C Work Phone: [facility] 08-31-2024 10:24-0500 Body height 152.4 cm Brice Brown DO Work Phone: [facility] 08-31-2024 10:24-0500 Body mass index (BMI) [Ratio] 40.43 kg/m2 Brice Brown DO Work Phone: [facility] 08-31-2024 10:24-0500 Body weight 93.89 kg Brice Brown DO Work Phone: [facility] 08-20-2024 09:05-0500 Body mass index (BMI) [Ratio] 40.43 kg/m2 Christopher Estrella DO Work Phone: [facility] 08-20-2024 09:05-0500 Body weight 93.89 kg Christopher Estrella DO Work Phone: [facility] 08-20-2024 09:05-0500 Diastolic blood pressure 80 mm[Hg] Liborioer Estrella DO Work Phone: [facility] 08-20-2024 09:05-0500 Heart rate 80 /min Liborioer Estrella DO Work Phone: [facility] 08-20-2024 09:05-0500 SaO2% (BldA) [Mass fraction] 95 % Christgrupoer Estrella DO Work Phone: [facility] 08-20-2024 09:05-0500 Systolic blood pressure 144 mm[Hg] Louisopher Estrella DO Work Phone: [facility] 08-19-2024 10:18-0500 Body height 152.4 cm Aggie Davis REHABILITATION SERVICES DIRECTOR-C Work Phone: [facility] 08-19-2024 10:18-0500 Body mass index (BMI) [Ratio] 40.8 kg/m2 Aggienapoleon Mccormackmer REHABILITATION SERVICES DIRECTOR-C Work Phone: [facility] 08-19-2024 10:18-0500 Body weight 94.8 kg Aggienapoleon Davis REHABILITATION SERVICES DIRECTOR-C Work Phone: [facility] 08-19-2024 09:13-0500 Body temperature 98.2 [degF] Aggie Susan REHABILITATION SERVICES DIRECTOR-C Work Phone: [facility] 08-19-2024 09:13-0500 Diastolic blood pressure 44 mm[Hg] Aggie Mccormackmer REHABILITATION SERVICES DIRECTOR-C Work Phone: [facility] 08-19-2024 09:13-0500 Heart rate 87 /min Aggienapoleon Mccormackmer REHABILITATION SERVICES DIRECTOR-C Work Phone: [facility] 08-19-2024 09:13-0500 Respiratory rate 20 /min Aggie Susan REHABILITATION SERVICES DIRECTOR-C Work Phone: [facility] 08-19-2024 09:13-0500 Systolic blood pressure 100 mm[Hg] Aggie Susan REHABILITATION SERVICES DIRECTOR-C Work Phone: [facility] 08-18-2024 10:31-0500 Body height 152.4 cm Mathieu Naqvi MD Work Phone: [facility] 08-18-2024 10:31-0500 Body mass index (BMI) [Ratio] 40.82 kg/m2 Mathieu Naqvi MD Work Phone: [facility] 08-18-2024 10:31-0500 Body weight 94.8 kg Mathieu Naqvi MD Work Phone: [facility] 07-07-2024 21:52-0500 Body temperature 97.88 [degF] Kaylinn Dokken [facility] 07-07-2024 21:52-0500 Diastolic blood pressure 76 mm[Hg] Kaylinn Dokken [facility] 07-07-2024 21:52-0500 Heart rate 72 /min Kaylinn Dokken [facility] 07-07-2024 21:52-0500 Mean blood pressure 86 mm[Hg] Kaylinn Dokken [facility] 07-07-2024 21:52-0500 Respiratory rate 19 /min Kaylinn Dokken [facility] 07-07-2024 21:52-0500 SaO2% (BldA) [Mass fraction] 95 % Kaylinn Dokken [facility] 07-07-2024 21:52-0500 Systolic blood pressure 105 mm[Hg] Kaylinn Dokken [facility] 07-07-2024 20:57-0500 Diastolic blood pressure 77 mm[Hg] Kaylinn Dokken [facility] 07-07-2024 20:57-0500 Heart rate 61 /min Kaylinn Dokken [facility] 07-07-2024 20:57-0500 Mean blood pressure 102 mm[Hg] Kaylinn Dokken [facility] 07-07-2024 20:57-0500 Respiratory rate 18 /min Kaylinn Dokken [facility] 07-07-2024 20:57-0500 SaO2% (BldA) [Mass fraction] 96 % Kaylinn Dokken [facility] 07-07-2024 20:57-0500 Systolic blood pressure 153 mm[Hg] Kaylinn Dokken [facility] 07-07-2024 19:33-0500 Diastolic blood pressure 89 mm[Hg] Kaylinn Dokken [facility] 07-07-2024 19:33-0500 Heart rate 60 /min Kaylinn Dokken [facility] 07-07-2024 19:33-0500 Mean blood pressure 108 mm[Hg] Kaylinn Dokken [facility] 07-07-2024 19:33-0500 Respiratory rate 19 /min Kaylinn Dokken [facility] 07-07-2024 19:33-0500 SaO2% (BldA) [Mass fraction] 95 % Kaylinn Dokken [facility] 07-07-2024 19:33-0500 Systolic blood pressure 146 mm[Hg] Kaylinn Dokken [facility] 07-07-2024 19:20-0500 Body temperature 98.06 [degF] Kaylinn Dokken [facility] 07-07-2024 18:33-0500 Body temperature 98.24 [degF] Kaylinn Dokken [facility] 07-07-2024 18:33-0500 Heart rate 73 /min Kaylinn Dokken [facility] 07-07-2024 18:33-0500 Respiratory rate 18 /min Kaylinn Dokken [facility] 07-07-2024 18:19-0500 gluc 142 mg/dL Kaylinn Dokken [facility] 07-07-2024 18:18-0500 Heart rate 73 /min Kaylinn Dokken [facility] 07-07-2024 18:18-0500 Respiratory rate 18 /min Kaylinn Dokken [facility] 05-18-2024 10:53-0400 Body height 152.4 cm Da Biedenbach DO Work Phone: [facility] 05-18-2024 10:53-0400 Body mass index (BMI) [Ratio] 38.08 kg/m2 Da Biedenbach DO Work Phone: [facility] 05-18-2024 10:53-0400 Body weight 88.45 kg Da Biedenbach DO Work Phone: [facility] 04-13-2024 11:09-0400 Body height 152.4 cm Da Biedenbach DO Work Phone: [facility] 04-13-2024 11:09-0400 Body mass index (BMI) [Ratio] 38.08 kg/m2 Da Biedenbach DO Work Phone: [facility] 04-13-2024 11:09-0400 Body weight 88.45 kg Da Biedenbach DO Work Phone: [facility] 04-10-2024 09:25-0400 Body height 149.9 cm Da Biedenbach DO Work Phone: [facility] 04-10-2024 09:25-0400 Body mass index (BMI) [Ratio] 39.39 kg/m2 Da Phillip DO Work Phone: [facility] 04-10-2024 09:25-0400 Body weight 88.45 kg Da Phillip DO Work Phone: [facility] 03-26-2024 11:11-0400 Body height 152.4 cm Da Phillip DO Work Phone: [facility] 03-26-2024 11:11-0400 Body mass index (BMI) [Ratio] 38.08 kg/m2 Da Phillip DO Work Phone: [facility] 03-26-2024 11:11-0400 Body weight 88.45 kg Da Phillip DO Work Phone: [facility] 08-27-2023 15:38-0500 Body height 149.9 cm Brice Estrella Carsabi Work Phone: [facility] 08-27-2023 15:38-0500 Body mass index (BMI) [Ratio] 39.59 kg/m2 Brice Estrella Carsabi Work Phone: [facility] 08-27-2023 15:38-0500 Body temperature 97.39 [degF] Brice Estrella Carsabi Work Phone: [facility] 08-27-2023 15:38-0500 Body weight 88.91 kg Bricelauar Estrella Carsabi Work Phone: [facility] 06-07-2023 08:27-0500 Heart rate 77 /min Bricelaura Estrella [facility] 06-07-2023 08:27-0500 SaO2% (BldA) [Mass fraction] 98 % Brice Pj [facility] 06-07-2023 08:26-0500 Respiratory rate 20 /min Brice Pj [facility] 06-07-2023 08:26-0500 Blood Pressure Location Brice Estrella [facility] 06-07-2023 08:26-0500 Diastolic blood pressure 64 mm[Hg] Brice Estrella [facility] 06-07-2023 08:26-0500 Mean blood pressure 77 mm[Hg] Brice Estrella [facility] 06-07-2023 08:26-0500 Systolic blood pressure 102 mm[Hg] Brice Estrella [facility] 06-07-2023 08:25-0500 Body temperature 97.88 [degF] Brice Estrella [facility] 06-07-2023 08:05-0500 Blood Pressure Location Brice Estrella [facility] 06-07-2023 08:05-0500 Diastolic blood pressure 59 mm[Hg] Brice Estrella [facility] 06-07-2023 08:05-0500 Heart rate 73 /min Brice Estrella [facility] 06-07-2023 08:05-0500 Respiratory rate 20 /min Brice Estrella [facility] 06-07-2023 08:05-0500 SaO2% (BldA) [Mass fraction] 95 % Brice Estrella [facility] 06-07-2023 08:05-0500 Systolic blood pressure 114 mm[Hg] Brice Estrella [facility] 06-07-2023 07:30-0500 Blood Pressure Location Brice Estrella [facility] 06-07-2023 07:30-0500 Diastolic blood pressure 70 mm[Hg] Brice Estrella [facility] 06-07-2023 07:30-0500 Heart rate 70 /min Brice Estrella [facility] 06-07-2023 07:30-0500 Respiratory rate 20 /min Brice Estrella [facility] 06-07-2023 07:30-0500 SaO2% (BldA) [Mass fraction] 96 % Brice Estrella [facility] 06-07-2023 07:30-0500 Systolic blood pressure 114 mm[Hg] Brice Estrella [facility] 06-07-2023 06:52-0500 Mean blood pressure 76 mm[Hg] Brice Estrella [facility] 06-07-2023 06:49-0500 Body temperature 97.88 [degF] Brice Estrella [facility] 06-07-2023 06:49-0500 Mean blood pressure 79 mm[Hg] Brice Estrella [facility] Encounters Encounter Date Encounter Type Care Provider Facility Start: 03-08-2025 ambulatory Kang Ferrell ty:[facility] Start: 10-13-2024 End: 10-13-2024 Patient encounter procedure Aggie Davis REHABILITATION SERVICES DIRECTOR-C Work Phone: [facility] [place] Work Phone: Start: 10-13-2024 End: 10-13-2024 ambulatory Aggie Davis REHABILITATION SERVICES DIRECTOR-C Work Phone: [facility] Work Phone: Start: 09-21-2024 End: 09-21-2024 ambulatory Aggie Davis REHABILITATION SERVICES DIRECTOR-C Work Phone: [facility] Work Phone: Start: 09-21-2024 End: 09-21-2024 Discharged Recurring Aggie Davis REHABILITATION SERVICES DIRECTOR-C Work Phone: [facility] [place] Work Phone: Start: 09-14-2024 End: 09-14-2024 ambulatory Aggie Davis REHABILITATION SERVICES DIRECTOR-C Work Phone: [facility] Work Phone: Start: 09-14-2024 End: 09-14-2024 Patient encounter procedure Aggie Susan REHABILITATION SERVICES DIRECTOR-C Work Phone: [facility] [address] Work Phone: Start: 09-07-2024 End: 09-07-2024 ambulatory Carter Wooy Facility: [facility] Start: 09-07-2024 End: 09-07-2024 Patient encounter procedure Kang BOSS [facility] Start: 09-03-2024 End: 09-03-2024 Bamboo flowsheet Olman De La Rosa DO Work Phone: [facility] Start: 09-03-2024 End: 09-03-2024 Bamboo flowsheet Olman De La Rosa DO Work Phone: [facility] Start: 09-03-2024 End: 09-03-2024 Patient encounter procedure Olman De La Rosa DO Work Phone: [facility] Comment on above: Bilateral hand numbn ess Start: 09-03-2024 End: 09-03-2024 ambulatory OLMAN DE LA ROSA Not Available Start: 08-31-2024 End: 08-31-2024 Bamboo flowsheet Brice Estrella DO Work Phone: [facility] Start: 08-31-2024 End: 08-31-2024 Bamboo flowsheet Brice Estrella DO Work Phone: [facility] Start: 08-31-2024 End: 08-31-2024 ambulatory Aggie Davis REHABILITATION SERVICES DIRECTOR-C Work Phone: [facility] Work Phone: Start: 08-31-2024 End: 08-31-2024 Patient encounter procedure Aggie Davis REHABILITATION SERVICES DIRECTOR-C Work Phone: [facility] [place] Work Phone: Start: 08-31-2024 End: 08-31-2024 Patient encounter procedure Brice A Pj DO Work Phone: [facility] Comment on above: Lateral epicondyliti s of right elbow (Primary Dx); Right elbow pain; Triceps tendonitis Start: 08-31-2024 End: 08-31-2024 ambulatory BRICE ESTRELLA Not Available Start: 08-24-2024 End: 08-24-2024 ambulatory OLMAN DE LA ROSA Not Available Start: 08-20-2024 End: 08-20-2024 ambulatory AB [facility] Start: 08-20-2024 End: 08-20-2024 Bamboo flowsheet Christopher Estrella DO Work Phone: [facility] Start: 08-20-2024 End: 08-20-2024 Bamboo flowsheet Christopher Estrella DO Work Phone: [facility] Start: 08-20-2024 End: 08-20-2024 ambulatory OLMAN DE LA ROSA Not Available Start: 08-20-2024 End: 08-20-2024 Office outpatient new 45 minutes Christgrupoer Estrella DO Work Phone: [facility] Comment on above: Loss of consciousnes s (CMS/HCC) (Primary Dx); Bilateral hand numbness Start: 08-19-2024 Registered Recurring Aggie brandon REHABILITATION SERVICES DIRECTOR-C Work Phone: [facility] [place] Work Phone: Start: 08-18-2024 End: 08-18-2024 Bamboo flowsheet Mathieu Naqvi MD Work Phone: [facility] Start: 08-18-2024 End: 08-18-2024 Bamboo flowsheet Mathieu Naqvi MD Work Phone: [facility] Start: 08-18-2024 End: 08-18-2024 Office outpatient new 45 minutes Mathieu Naqvi MD Work Phone: [facility] Comment on above: Type 2 diabetes [...] Available Start: 08-14-2024 ambulatory Kang BOSS Facility :[facility] Start: 08-14-2024 ambulatory Facility:[facility] Start: 07-22-2024 Non-patient / Non-visit Aggie CHICAS Work Phone: [facility] Work Phone: Start: 07-07-2024 End: 07-07-2024 Emergency department patient visit Tiny Fallon [facility] Start: 05-18-2024 End: 05-18-2024 ambulatory [...] [place] Start: 04-13-2024 End: 04-13-2024 Departed Referred REHABILITATION SERVICES DIRECTOR-C Aggie Davis Work Phone: [facility] [place] Work Phone: Start: 04-13-2024 End: 04-13-2024 ambulatory REHABILITATION SERVICES DIRECTOR-C Aggie Davis Work Phone: [facility] Work Phone: Start: 04-13-2024 End: 04-13-2024 [...] Start: 03-26-2024 End: 03-26-2024 Patient encounter procedure REHABILITATION SERVICES DIRECTOR-C Aggie Davis Work Phone: [facility] [place] Work Phone: Start: 03-26-2024 End: 03-26-2024 ambulatory REHABILITATION SERVICES DIRECTOR-C Aggie Davis Work Phone: [facility] Work Phone: Start: 03-26-2024 End: 03-26-2024 Office outpatient new 45 minutes Da Phillip DO Work Phone: [facility] Comment on above: Thyroid nodule (CMS/ HCC) (Primary Dx); Nontoxic multinodular goiter (CMS/HCC); Thyroid dysfunction (CMS/HCC) Start: 03-26-2024 End: 03-26-2024 ambulatory DA PHILLIP Not Available Start: 02-14-2024 End: 02-14-2024 ambulatory REHABILITATION SERVICES DIRECTOR-C Aggie Davis Work Phone: [facility] Work Phone: Start: 02-14-2024 End: 02-14-2024 Departed Referred REHABILITATION SERVICES DIRECTOR-C Aggie Davis Work Phone: [facility] Start: 01-25-2024 Non-patient / Non-visit REHABILITATION SERVICES DIRECTOR-C Keke Davis Work Phone: [facility] Work Phone: Start: 12-31-2023 End: 12-31-2023 ambulatory BRICE ESTRELLA Not Available Start: 11-11-2023 End: 02-26-2024 ambulatory Brice Estrella Facility:[facility] Start: 10-29-2023 End: 10-29-2023 ambulatory BRICE ESTRELLA Not Available Start: 10-08-2023 End: 10-08-2023 ambulatory BRICE ESTRELLA Not Available Start: 2023 Chart abstracting Brice brantley DO Work Phone: [facility] Start: 08-27-2023 End: 08-27-2023 Patient encounter procedure Brice Estrella DO Work Phone: [facility] Comment on above: Left knee pain, unsp ecified chronicity (Primary Dx) Start: 08-22-2023 End: 08-22-2023 ambulatory REHABILITATION SERVICES DIRECTOR-C Aggie Isabel Susan Work Phone: [facility] Work Phone: Start: 08-22-2023 End: 08-22-2023 Discharged Recurring REHABILITATION SERVICES DIRECTOR-C Aggie Susan Work Phone: [facility] [employer] [address] Start: 06-07-2023 End: 06-07-2023 Admission to same day surgery center Brice Estrella [facility] Start: 12-26-2022 ambulatory AGGIE SUSAN [...] End: 11-09-2021 Patient encounter procedure Michele Jane [facility] Procedures Date Procedure Procedure Detail Performing Clinician Start: 09-14-2024 Plain X-ray of right tibia and right fibula Aggie Davis REHABILITATION SERVICES DIRECTOR-C Work Phone: Start: 09-14-2024 MRI of head Aggie guzmán REHABILITATION SERVICES DIRECTOR-C Work Phone: Start: 09-03-2024 End: 09-03-2024 Needle emg ea extremty w/paraspinl area complete Olman De La Rosa DO Work Phone: Start: 08-31-2024 Arthrocentesis aspir &/inj interm jt/burs [...] Michele dill right knee arthroscopy x2 Emilee Jane Plan of Treatment Date Care Activity Detail Author Start: 06-01-2025 Pneumococcal Vaccine: 65+ Years (3 - PPSV23 or PCV20) Pneumococcal Vaccine: 65+ Years (3 - PPSV23 or PCV20) [facility] Start: 06-01-2025 Pneumococcal Vaccine: 65+ Years (3 of 3 - PPSV23 or PCV20) Pneumococcal Vaccine: 65+ Years (3 of 3 - PPSV23 or PCV20) [facility] Start: 11-16-2024 End: 11-16-2024 Patient encounter procedure 11/16/2024 10:50 AM EDT Office Visit [facility] ENDOCRINOLOGY [address] [place] [phone] Mathieu Naqvi MD [address] [place] [address] [facility] Start: 11-09-2024 End: 11-09-2024 Patient encounter procedure 11/09/2024 10:00 AM EDT Office Visit [facility] [place] [address] [place] [phone] Da Phillip, DO [address] [place] [address] [facility] [place] Start: 11-02-2024 End: 11-02-2024 Patient encounter procedure 11/02/2024 10:30 AM EDT Office Visit [facility] [address] [place] [address] Brice Estrella, DO [address] [place] [address] [facility] Start: 10-13-2024 Bacteria identified in Urine by Culture Urine Culture [facility] Start: 10-13-2024 Urine culture [facility] Start: 10-13-2024 Insulin C-peptide measurement [facility] Start: 09-28-2024 End: 09-28-2024 Patient encounter procedure 09/28/2024 1:15 PM EST Office Visit [facility] [address] [place], [place] [address] [phone] Olman De La Rosa DO [address] [place] [address] [facility] Start: 09-10-2024 End: 09-10-2024 ambulatory 09/10/2024 1:00 PM EST Evaluation [facility] [address] [place] [phone] Sofya Brasher, OT [address] [place] [address] [facility] Start: 09-03-2024 End: 09-03-2024 Patient encounter procedure [facility] Comment on above: Arrived Start: 09-03-2024 End: 09-03-2024 ambulatory 09/03/2024 12:30 PM EST Evaluation [facility] [address] [place] [phone] Sofya Brasher, OT [address] [place] [address] [facility] Start: 08-31-2024 End: 08-31-2024 Patient encounter procedure [facility] Comment on above: Arrived Start: 08-24-2024 End: 08-24-2024 Clinical Support 08/24/2024 10:45 AM EST Clinical Support [facility] [address] [place] [address] [facility] Start: 08-20-2024 End: 08-20-2025 Creatinine [Mass/volume] in Serum or Plasma Creatinine, Serum Lab Routine Loss of consciousness ([facility]) Expected: 08/20/2024 (Approximate), Expires: 08/20/2025 [facility] Comment on above: Expected: 08/20/2024 (Approximate), Expi res: 08/20/2025 Start: 08-20-2024 End: 08-20-2025 EEG, Including Recording Awake or Asleep EEG, Including Recording Awake or Asleep Neurology Routine Loss of consciousness ([facility]/HCC) Expected: 08/20/2024 (Approximate), Expires: 08/20/2025 [facility] Comment on above: Expected: 08/20/2024 (Approximate), Expi res: 08/20/2025 Start: 08-20-2024 End: 08-20-2025 EMG 2 Extremities EMG 2 Extremities Neurology Routine Bilateral hand numbness Expected: 08/20/2024, Expires: 08/20/2025 [facility] Work Phone: Comment on above: Expected: 08/20/2024, Expires: Start: 08-20-2024 End: 08-20-2025 MR Brain WO and W contrast IV MR brain w and wo contrast routine Imaging Routine Loss of consciousness ([facility]) Expected: 08/20/2024, Expires: 08/20/2025 [facility] Comment on above: Expected: 08/20/2024, Expires: Start: 08-20-2024 End: 08-20-2024 Patient encounter procedure 08/20/2024 9:00 AM EST Office Visit [facility] [address] [address] [place] [address] Olman De La Rosa, [address] [place] [address] [facility] Start: 08-18-2024 End: 08-18-2025 25-hydroxyvitamin D3 [Mass/volume] in Serum or Plasma Vitamin D 25 hydroxy Total Lab Routine Type 2 diabetes mellitus with hyperglycemia, with long-term current use of insulin ([facility]) Expected: 08/18/2024 (Approximate), Expires: 08/18/2025 [facility] Comment on above: Expected: 08/18/2024 (Approximate), Expi res: 08/18/2025 Start: 08-18-2024 End: 08-18-2025 C-peptide C-peptide Lab Routine Type 2 diabetes mellitus with hyperglycemia, with long-term current use of insulin ([facility]) Expected: 08/18/2024 (Approximate), Expires: 08/18/2025 [facility] Work Phone: Comment on above: Expected: 08/18/2024 (Approximate), Expi res: 08/18/2025 Start: 08-18-2024 End: 08-18-2025 Lipid 1996 panel - Serum or Plasma Lipid panel Lab Routine Type 2 diabetes mellitus with hyperglycemia, with long-term current use of insulin ([facility]/HCC) Expected: 08/18/2024 (Approximate), Expires: 08/18/2025 [facility] Comment on above: Expected: 08/18/2024 (Approximate), Expi res: 08/18/2025 Start: 08-18-2024 End: 08-18-2025 Microalbumin/Creatinine panel in random Urine Microalbumin / creatinine urine ratio Lab Routine Type 2 diabetes mellitus with hyperglycemia, with long-term current use of insulin ([facility]/HCC) Expected: 08/18/2024 (Approximate), Expires: 08/18/2025 [facility] Comment on above: Expected: 08/18/2024 (Approximate), Expi res: 08/18/2025 Start: 08-18-2024 End: 08-18-2025 Renal function panel Renal function panel Lab Routine Type 2 diabetes mellitus with hyperglycemia, with long-term current use of insulin ([facility]) Expected: 08/18/2024 (Approximate), Expires: 08/18/2025 [facility] Comment on above: Expected: 08/18/2024 (Approximate), Expi res: 08/18/2025 Start: 08-18-2024 End: 08-18-2024 Patient encounter procedure 08/18/2024 10:30 AM EST Office Visit [facility] ENDOCRINOLOGY [address] [place] [address] Mathieu Naqvi MD [address] [place] [address] Arrived [facility] Comment on above: Arrived Start: 07-27-2024 End: 07-27-2024 Patient encounter procedure 07/27/2024 1:00 PM EST [facility] [address] [facility] [place] [phone] Chana Iglesias, AUD [address] [place] [address] [facility] Start: 05-04-2024 End: 05-04-2024 Patient encounter procedure 05/04/2024 10:15 AM EDT [facility] [address] [place] [place] [phone] Da Phillip, DO [address] [place] [address] Arrived [facility] Comment on above: Arrived Start: 04-13-2024 End: 04-13-2024 Patient encounter procedure 04/13/2024 11:00 AM EDT Office Visit [facility] [address] [place] [phone] Da Phillip, DO [address] [place] [address] [facility] Start: 04-10-2024 End: 04-10-2024 Patient encounter procedure [facility] Comment on above: Arrived Start: 03-29-2024 Influenza vaccination Influenza Vaccine (#1) [facility] Start: 03-26-2024 End: 03-26-2025 Thyrotropin [Units/volume] in Serum or Plasma [facility] Comment on above: Expected: 03/26/2024 (Approximate), Expi res: 03/26/2025 Start: 03-26-2024 End: 03-26-2025 Triiodothyronine (T3) [Mass/volume] in Serum or Plasma T3 Lab Routine Thyroid nodule (CMS/HCC) Expected: 03/26/2024 (Approximate), Expires: 03/26/2025 [facility] Work Phone: Comment on above: Expected: 03/26/2024 (Approximate), Expi res: 03/26/2025 Start: 03-26-2024 End: 03-26-2024 Patient encounter procedure 03/26/2024 11:00 AM EDT Office Visit [facility] [address] [place] [address] Da Phillip, DO [address] [place] [place] [address] Arrived [facility] Comment on above: Arrived Start: 10-08-2023 End: 10-08-2023 Patient encounter procedure 10/08/2023 10:00 AM EDT Office Visit [facility] [address] [place] [phone] Brice Estrella DO [address] [place] [address] [facility] Start: 07-29-2023 Pneumococcal Vaccine: 65+ Years (3 of 3 - PPSV23 or PCV20) Pneumococcal Vaccine: 65+ Years (3 of 3 - PPSV23 or PCV20) [facility] Start: 1994 Screening for malignant neoplasm of breast Mammogram [facility] Start: 1973 Urine screening for protein Diabetes: Urine Protein Screening [facility] Start: 1964 Glaucoma screening Diabetes: Retinopathy Screening [facility] Start: 1954 Hemoglobin A1c measurement Diabetes: Hemoglobin A1C [facility] Start: 1954 Medicare Annual Wellness (AWV) Medicare Annual Wellness (AWV) [facility] Start: 1954 Screening for malignant neoplasm of colon [facility] Renal function 2000 panel - Serum or Plasma [facility] Immunizations Immunization Date Immunization Notes Care Provider Epifanio bhatia 06-11-2024 zoster vaccine recombinant Kang BOSS [facility] 01-11-2024 zoster vaccine recombinant Kang BOSS [facility] 12-27-2023 zoster vaccine recombinant Da Biedenmaicol DO Work Phone: [facility] 06-30-2023 Influenza, High-dose Seasonal, Quadrivalent, Preservative Free Da Biedenbach DO Work Phone: [facility] 06-30-2023 influenza virus vaccine, unspecified formulation Da Saeededlexii DO Work Phone: [facility] 10-30-2022 influenza virus vaccine, unspecified formulation Kang BOSS [facility] 10-30-2022 Influenza, High-dose Seasonal, Quadrivalent, Preservative Free Da Biedenmaicol DO Work Phone: [facility] 05-31-2022 influenza virus vaccine, unspecified formulation Kang BOSS [facility] 05-31-2022 Influenza, Seasonal, Quadrivalent, Adjuvanted Da Biedenbach DO Work Phone: [facility] 12-19-2020 SARS-CoV-2 (COVID-19 ) mRNA-1273 vaccine Kang BOSS [facility] 11-22-2020 SARS-CoV-2 (COVID-19 ) mRNA-1273 vaccine Kangmarcos BOSS [facility] 11-14-2020 SARS-CoV-2 (COVID-19 ) mRNA-1273 vaccine Michele Jane [facility] 06-01-2020 influenza virus vaccine, unspecified formulation Kang BOSS [facility] 06-01-2020 pneumococcal conjuga te vaccine, 13 valent Da Christopheerasmo DO Work Phone: [facility] 06-01-2020 Seasonal trivalent influenza vaccine, adjuvanted, preservative free Da Christopheerasmo DO Work Phone: [facility] 04-28-2019 influenza virus vaccine, unspecified formulation Kang BOSS [facility] 04-28-2019 influenza, seasonal, injectable Da Phillip DO Work Phone: [facility] 07-29-2018 pneumococcal polysaccharide vaccine, 23 valent Da Jacintoteresamaicol DO Work Phone: [facility] 04-18-2018 tetanus toxoid, redu soledad diphtheria toxoid, and acellular pertussis vaccine, adsorbed REHABILITATION SERVICES DIRECTOR-C Aggie Susan Work Phone: [facility] Payers Date Payer Category Payer Self-pay [id number] 2022 Unknown LAMIN Nunes O [id number] 2022-Present [address] [place] [address] [id number] [id number] 2022 Worker's Compensation LAMIN espinoza [id number]. [id number] 2022 Medicare HUMANA MEDICARE ADVANTAGE HU[employer]NA MEDICARE [id number] 2022-Present [address] [address] [place] [address] [id number]. 2.7.3.573331.315 2022 Medicare (Managed Care) HUMANA EDICARE ADVANTAGE [id number] [id number] 1959 Medicare [id number] 1959 Unknown [id number] 1954 Unknown [id number] 2.16.840.1.270607.3.579. 2.593 1954 Unknown [id number] 2.16.840.1.180041.3.579. 2.593 1954 Unknown [id number] 2.16.840.1.326198.3.579. 2.593 1954 Unknown [id number] 2.16.840.1.904270.3.579. 2.593 1954 Unknown [id number] 2.16.840.1.963180.3.579. 2.593 1954 Unknown [id number] 2.16.840.1.859376.3.579. 2.593 1954 Unknown [id number] 2.16.840.1.537219.3.579. 2.593 1954 Unknown [id number] 2.16.840.1.411262.3.579. 2.593 1954 Unknown [id number] 2.16.840.1.056302.3.579. 2.593 1954 Unknown [id number] 2.16.840.1.602792.3.579. 2.593 1954 Unknown [id number] 2.16.840.1.292199.3.579. 2.593 1954 Unknown [id number] 2.16.840.1.584001.3.579. 2.593 1954 Unknown [id number] 2.16.840.1.774988.3.579. 2.727 1954 Unknown [id number] 2.16.840.1.626961.3.579. 2.727 1954 Unknown [id number] 2.16.840.1.631973.3.579. 2.727 1954 Unknown [id number] 2.16.840.1.169106.3.579. 2.727 1954 Unknown [id number] 2.16.840.1.221924.3.579. 2.727 1954 Unknown [id number] 2.16.840.1.822970.3.579. 2.727 1954 Unknown [id number] 2.16.840.1.915681.3.579. 2.1259 1954 Unknown [id number] 2.16.840.1.037933.3.579. 2.1259 1954 Unknown [id number] 2.16.840.1.653628.3.579. 2.1258 1954 Unknown [id number] 2.16.840.1.033300.3.579. 2.1258 1954 Unknown [id number] 2.16.840.1.042871.3.579. 2.1258 1954 Unknown [id number] 2.16.840.1.431750.3.579. 2.1258 1954 Unknown [id number] 2.16.840.1.953212.3.579. 2.1258 1954 Unknown [id number] 2.16.840.1.228021.3.579. 2.1258 1954 Unknown [id number] 2.16.840.1.871160.3.579. 2.1258 1954 Unknown [id number] 2.16.840.1.246328.3.579. 2.1258 1954 Unknown [id number] 2.16.840.1.895533.3.579. 2.1258 1954 Unknown [id number] 2.16.840.1.032251.3.579. 2.1258 1954 Unknown [id number] 2.16.840.1.643247.3.579. 2.1258 1954 Unknown [id number] 2.16.840.1.271937.3.579. 2.1258 1954 Unknown [id number] 2.16.840.1.121007.3.579. 2.1258 1954 Unknown [id number] 2.16.840.1.379583.3.579. 2.1258 1954 Unknown [id number] 2.16.840.1.292456.3.579. 2.1258 1954 Unknown [id number] 2.16.840.1.971024.3.579. 2.1259 1954 Unknown [id number] 2.16.840.1.344588.3.579. 2.1258 1954 Unknown [id number] 2.16.840.1.885224.3.579. 2.1258 1954 Unknown [id number] 2.16.840.1.593447.3.579. 2.1258 1954 Unknown [id number] 2.16.840.1.621436.3.579. 2.1258 1954 Unknown [id number] 2.16.840.1.506097.3.579. 2.1258 1954 Unknown [id number] 2.16.840.1.057980.3.579. 2.1258 1954 Unknown [id number] 2.16.840.1.615569.3.579. 2.1258 1954 Unknown [id number] 2.16.840.1.495610.3.579. 2.1258 1954 Unknown [id number] 2.16.840.1.091445.3.579. 2.727 1954 Unknown [id number] 2.16.840.1.767215.3.579. 2.727 Unknown [place] [employer]/BS [id number] Unknown Regular Auto/Medical [id number] Unknown [id number] 2.16.840.1.082809.3.579. 2.531 Unknown [id number] 2.16.840.1.833190.3.579. 2.531 Unknown [id number] 2.16.840.1.346259.3.579. 2.531 Unknown [id number] 2.16.840.1.203826.3.579. 2.531 Unknown [id number] 2.16.840.1.152010.3.579. 2.531 Unknown [id number] 2.16.840.1.462304.3.579. 2.531 Unknown [id number] 2.16.840.1.351265.3.579. 2.531 Social History Date Type Detail Facility Tobacco Cigarettes [facility] Comment on above: 05/30 pkg daily Start: 08-27-2023 End: 08-31-2024 Sex Assigned At Female [facility] Tobacco smoking status No Smoking Status Entered [facility] Start: 05-07-2023 Tobacco smoking status TNIS Smokes tobacco daily [facility] History of tobacco use Cigarette Smoker [facility] Start: 05-07-2023 Tobacco use and exposure Smokeless tobacco non-user [facility] Start: 08-27-2023 End: 08-31-2024 Alcohol intake Lifetime non-drinker (finding) [facility] Start: 08-27-2023 End: 08-31-2024 History of Social function [facility] Start: 05-07-2023 Alcohol Comment caffeine intak e: more than 4 cups per day of coffee, pop, tea [facility] Start: 1955 Sex Assigned At Not on file [facility] Start: 04-12-2023 End: 09-21-2024 Tobacco smoking status NHIS Smoker (finding) [facility] Start: 1955 Sex Assigned At Female [facility] Start: 08-16-2024 Gender identity Identifies as female gender (finding) [facility] Start: 08-31-2024 End: 10-14-2024 Sex Female (finding) [facility] Start: 09-07-2024 Tobacco smoking status Heavy tobacco smoker (finding) [facility] Comment on above: 05/30 pkg daily Tobacco smoking status Never [facility] Comment on above: 05/30 pkg daily Medical Equipment Procedure Code Equipment Code Equipment Origin al Text Equipment Identifier Dates [id number] Start: 04-05-2023 TEST BLOOD SUGAR THREE TIMES DAILY for 90 [id number] Blood Sugar Diagnostic (Onetouch Ultra Test) strip [...] 01-06-2020 Functional Status Date Assessment Result Facility 09-07-2024 Functional Status N/A [facility] 07-07-2024 Functional Status N/A [facility] 06-07-2023 Functional Status N/A [facility] Clinical Notes 03-16-2022 to 09-07-2024 DAR Hayes - 09/03/2024 2:00 PM EST Note Date & Type Note Facility 09-07-2024 Hospital Discharge instructions Patient Education 09/07/2024 10:32:32 Urinary Tract Infection, Adult, Adih-oe-Cqwr Urinary Tract Infection, Adult A urinary tract [...] Follow these instructions at home: Medicines Take zeto-ebj-yskwsya and prescription medicines only as told by [...] provider. Document Revised: 02/19/2021 Document Reviewed: 02/24/2021 [employer] Patient Education 2023 [employer]. Follow Up Care 08/14/2024 14:18:16 With:KARYN WRAY, Kang Morelos, URL Address: [facility] [address] , [place] [address]- When:Within 6 Month(s) Comments:w/TOMEKA [facility] 09-07-2024 Note Urology Office/Clini c Note Chief Complaint referral renal lesion HPI Staff 68yr old female pt referred by Dr. Granger for renal lesion. Could not provide urine sample at this time MRI on 08/12/24 showed multiple nonenhancing bilateral renal simple and complex cortical and exophytic cysts, no enhancing mass Dysuria: small amount of burning Incomplete bladder emptying: denies Hematuria: denies Frequency: about every 2-3hrs Urgency: sometimes Nocturia: 2x per night Stream: varies, depends on how much she drinks Leaking: sometimes Post void dripping: denies Wearing pads/ Depends: sometimes wears pads Urge incontinence: sometimes Stress incontinence: denies Incontinence without Sensory Awareness: denies Abdominal pain: denies Flank pain: denies History of Present Illness Tests reviewed: reviewed UA and External Records. I have reviewed the previous health record information and history for this patient from External Provider. I have reviewed and verified the staff HPI to be accurate for this encounter. There have been no associated fever, chills, flank pain, or blood in the urine. Denies any urinary infections since last encounter. Review of Systems PHQ Score Initial Depression Screen Score: 0 SCORE ROS - Provider Constitutional: denies weight loss, denies hot flashes. Eyes: denies eye problems. Gastrointestinal: denies nausea, denies vomiting. Cardiovascular: denies chest pain or angina. Integumentary: no dryness Musculoskeletal: denies musculoskeletal symptoms. ENMT: denies otolaryngeal symptoms. Respiratory: no shortness of breath. Heme/Lymph: denies easy bleeding tendency, denies easy bruising tendency. Psychiatric: no confusion, no anxiety. Genitourinary: See HPI. Physical Exam Vitals & Measurements HR: 70(Peripheral) RR: 18 BP: 112/74 HT: 61 in HT: 155 cm WT: 93.3 kg WT: 205.691 lb BMI: 38.83 General Appearance: alert , no acute distress, well nourished, well developed female. Head: normocephalic . Eyes: normal orbit and globe. ENMT: normal examination of external ears. Chest: Lungs CTA, respirations non labored . Cardiovascular: regular rate and rhythm. Abdomen: soft, non distended, no tenderness, no mass or organomegaly, no hernia. Genitourinary: bladder nonpalpable, no flank tenderness. Lymph Nodes: unremarkable palpation of the cervical area. Skin: warm, dry, no bruising. Psychiatric: cooperative, affect appropriate for age, normal judgement, euthymic mood. Assessment/Plan Pt states that she does have a history of UTI's not regularly. Does take 3 water pills, her legs swell. Mother had a kidney from the time she was a child, not sure of any kidney issues with her family. 1. Bilateral renal cysts (N28.1: Cyst of kidney, acquired) MRI 08/12/24 - multiple nonenhancing bilateral renal simple and complex cortical and exophytic cysts, no enhancing mass Labs 08/12/24 - Crea 1.86 Could not provide urine sample at this time. Pt states that she had the MRI done due to a fall and she had given herself a concussion. Counseled pt on imaging results with pt. Advised pt that we will continue to monitor them. Advised pt that we will order a TOMEKA to be done in 6 mos. Counseled pt on possible causes of the renal cysts. Follow up in 6 mos w/TOMEKA. All questions/concerns were discussed. Pt to call the office if she encounters any issues prior. Pt acknowledges understanding. -Will order TOMEKA. Follow-up With When Contact Information Kang BOSS MD, SHAVONNE In 6 months [facility] [address], [place] [address]- Additional Instructions: w/TOMEKA Patient Education Urinary Tract Infection, Adult, Dtfo-oc-Octu I, Tricia Zelaya , personally scribed for Dr. Boss on 09/07/2024 10:33:42. . Documentation recorded by the scribe, Tricia Zelaya, accurately reflects the services(s) I performed and decisions made by me. Problem List/Past Medical History Ongoing Bilateral renal cysts BMI 31.0-31.9,adult Chronic back pain Diabetes mellitus, type 2 Hyperlipidemia Lipoma of back Renal lesion Smoker Historical Breast lump Cigarette smoker Fatigue Insomnia Lipoma of back NC - myocardial infarction Osteoporosis Pharyngitis Procedure/Surgical History Carpal tunnel release (06/07/2023), Arthroscopy of knee (09/30/2020), Right little finger release A-1 linda (05/09/2016), Cholecystectomy, History of tonsillectomy, hysterectomy, needle removed right foot, Operation on toenail, Release of trigger finger, right carpel tunnel, right knee arthroscopy x2. Medications Albuterol (Eqv-Proventil HFA) 90 mcg/inh inhalation aerosol, See Instructions alendronate 70 mg oral tablet, 70 mg= 1 tab(s), Oral, qWeek aspirin, 81 mg, Oral, Daily Benadryl, See Instructions busPIRone, 75 mg, Oral, BID Flovent HFA 110 Aerosol, 2 puff(s), Inhalation, BID, PRN FLUoxetine 10 mg Cap, 10 m (more content not included)... [facility] Comment on above: Result Comment: Elec tronically Signed By: Kang BOSS MD\.br\Date and Time Signed: 09/07/24 10:35 EST\.br\Electronically Co-Signed By: Tricia Zelaya\.br\Date and Time Co-Signed: 09/07/24 10:34 EST 09-07-2024 Note Patient Education Obstetrics and Gynecology Urinary Tract Infection, Adult A urinary tract infection (UTI) is an infection of any part of the urinary tract. The urinary tract includes: ??? The kidneys. ??? The ureters. ??? The bladder. ??? The urethra. These organs make, store, and get rid of pee (urine) in the body. What are the causes? This infection is caused by germs (bacteria) in your genital area. These germs grow and cause swelling (inflammation) of your urinary tract. What increases the risk? The following factors may make you more likely to develop this condition: ??? Using a small, thin tube (catheter) to drain pee. ??? Not being able to control when you pee or poop (incontinence). ??? Being female. If you are female, these things can increase the risk: ? Using these methods to prevent : ? A medicine that kills sperm (spermicide). ? A device that blocks sperm (diaphragm). ? Having low levels of a female hormone (estrogen). ? Being . You are more likely to develop this condition if: ??? You have genes that add to your risk. ??? You are sexually active. ??? You take antibiotic medicines. ??? You have trouble peeing because of: ? A prostate that is bigger than normal, if you are male. ? A blockage in the part of your body that drains pee from the bladder. ? A kidney stone. ? A nerve condition that affects your bladder. ? Not getting enough to drink. ? Not peeing often enough. ??? You have other conditions, such as: ? Diabetes. ? A weak disease-fighting system (immune system). ? Sickle cell disease. ? Gout. ? Injury of the spine. What are the signs or symptoms? Symptoms of this condition include: ??? Needing to pee right away. ??? Peeing small amounts often. ??? Pain or burning when peeing. ??? Blood in the pee. ??? Pee that smells bad or not like normal. ??? Trouble peeing. ??? Pee that is cloudy. ??? Fluid coming from the vagina, if you are female. ??? Pain in the belly or lower back. Other symptoms include: ??? Vomiting. ??? Not feeling hungry. ??? Feeling mixed up (confused). This may be the first symptom in older adults. ??? Being tired and grouchy (irritable). ??? A fever. ??? Watery poop (diarrhea). How is this treated? Taking antibiotic medicine. ??? Taking other medicines. ??? Drinking enough water. In some cases, you may need to see a specialist. Follow these instructions at home: Medicines ??? Take rkoq-usz-igzmoae and prescription medicines only as told by your doctor. ??? If you were prescribed an antibiotic medicine, take it as told by your doctor. Do not stop taking it even if you start to feel better. General instructions ??? Make sure you: ? Pee until your bladder is empty. ? Do not hold pee for a long time. ? Empty your bladder after sex. ? Wipe from front to back after peeing or pooping if you are a female. Use each tissue one time when you wipe. ??? Drink enough fluid to keep your pee pale yellow. ??? Keep all follow-up visits. Contact a doctor if: ??? You do not get better after 1?2 days. ??? Your symptoms go away and then come back. Get help right away if: ??? You have very bad back pain. ??? You have very bad pain in your lower belly. ??? You have a fever. ??? You have chills. ??? You feeling like you will vomit or you vomit. Summary ??? A urinary tract infection (UTI) is an infection of any part of the urinary tract. ??? This condition is caused by germs in your genital area. ??? There are many risk factors for a UTI. ??? Treatment includes antibiotic medicines. ??? Drink enough fluid to keep your pee pale yellow. This information is not intended to replace advice given to you by your health care provider. Make sure you discuss any questions you have with your health care provider. Document Revised: 02/19/2021 Document Reviewed: 02/24/2021 [employer] Patient Education ? 2023 [employer]. [facility] 09-03-2024 History of Present illness Narrative Images from the original note were not included. Reason for Appointment: EMG Patient: Virgen Zelaya : 1955 EMG Computer: [employer] Referring Physician: Dr. Olman De La Rosa EMG: DREE manufacturing support engineer: Rolando Camara RT(R) Office Location: [place] Reason for EMG: c/o twitching in bilateral arms, weakness in bilateral hands R>L, neck pain. Hx of surgery to bilateral hands & bilateral CTR. Hx of DM. Taking ASA. Comments: Procedure was explained to the patient who expressed understanding. Patient appeared to have tolerated the test well despite some discomfort due to the nature of the test. documented in this encounter [facility] 08-31-2024 Evaluation note Diagnosis Onset Date Resolution CKD (chronic kidney disease) stage 4, GFR 15-29 ml/min acute August 31, 2024 1:41pm Hyperlipidemia acute August 312024 1:41pm Hypertensive chronic kidney disease with stage 1 through stage 4 chronic ki acute 2024 1:41pm Kidney mass acute August 31, 2024 1:41pm Secondary hyperparathyroidism acute August 1:41pm Type 2 diabetes mellitus with diabetic chronic kidney disease acute August 31, 2024 1:41pm Diabetes mellitus, type 2 acute September 21, 2024 8:14am Hemosiderin pigmentation of lower extremity due to varicose veins acute September 21, 2024 8:14am Pain acute September 21, 2024 8:14am Peripheral edema acute September 21, 2024 8:14am Venous insufficiency acute 2024 8:14am Venous stasis dermatitis of right lower extremity acute August 302024 8:14am [facility] Work Phone: 1(140) 509-203702-03-2025 History of Present illness Narrative* DAR Delong - 08/31/2024 10:30 AM ESTAssociated Order(s): M Inj/Asp: R elbow Post-Procedure Diagnose(s): Right elbow pain M Inj/Asp: R elbow on 08/31/2024 10:53 AM Indications: pain Details: 25 G needle Medications: 1 mL betamethasone acetate-betamethasone sodium phosphate 6 (3-3) MG/ML Consent was given by the patient. * Brice Estrella DO - 08/31/2024 10:30 AM EST Images from the original note were not included. @DUANETE@ [facility] Bindu Zelaya is a 68 y.o. female [...] or using the computer. She also tried usinga sleeve, but it was too thin to provide any significant benefit. Her olecranon bursa was aspiratedand injected on 07/23/2023. SOCIAL HISTORY She now works at [employer]. SUBJECTIVE: MEDICATIONS: Current Outpatient Medications Medication Instructions [...] meals Jardiance 25 MG (Prior Auth: Rx Ref#:[id number]) Oral for 90 Lasix 20 MG tablet [...] Right 2006 NAIL REMOVAL toenails removed x3 GA ARTHROSCOPY KNEE DIAGNOSTIC W/WO SYNOVIAL BX SPX Right 02/24/2020 Dr. Ashraf GA KNEE SCOPE,DIAGNOSTIC Right 09/30/2020 JAB TONSILLECTOMY 1972 [...] of the affected elbow was palpated and preppedwith alcohol and betadine. Skin was anesthetized with [...] note was created using voice recognition through [employer] artificial [employer]. documented in this encounter[facility] [id number] Chief Complaint: Patient here to establish care for CAD. She was last seen by cardiology in 2019 by [facility]. She had stress test and echo week. [...] should problems arise Ponce Silvestre MD, MPH, FACC, FSCAI, [facility] Interventional Cardiology Pager Email: [email or web address]01-23-2025 History of Present illness Narrative* Olman De La Rosa, DO - 08/20/2024 9:00 AM EST Images from the original note were not included. Chief complaint: Loss of consciousness Subjective Virgen Ramiro Zelaya, 68 y.o., female Patient presents today for a neurologic consult at the request of Aggie Davis CNP for hand tremorand syncope. Patient states she had two episodes of syncope. The first time she was on the toilet and she fell on the floor. She is unsure if she fell asleep. The second episode was July 07 she fell at work and hit her head. She reports LOC but is unsure for how long. She had no recollectionof these events. She denies any dizziness or lightheadedness. Patient does have diabetes her last A1C was 10. She does state her sugar was normal during these events. She is experiencing numbness in bilateral hands. She notices this in her right hand more especially when she is smoking a cigarette.She will be smoking or holding a remote and will just drop these items. She does also note a tremor in bilateral hands which is intermittent. She says out of no where she will just start shaking likea leaf. Review of Systems Constitutional: Negative for [...] 03/25/2024 Arthropathy of left hip 03/25/2024 Asthma ([facility]) 03/25/2024 Back pain 03/25/2024 Bilateral tinnitus 03/25/2024 Breast mass Chronic low back pain 03/25/2024 Chronic pharyngitis 03/25/2024 Chronic reactive otitis externa of right ear Chronic reactive otitis externa of right ear 03/25/2024 Current smoker 03/25/2024 Added secondary to documentation in Social History. Added secondary to documentation in Social History. Depression ([facility]) Diabetes mellitus ([facility]) 03/25/2024 Disc displacement, lumbar 03/25/2024 Dyslipidemia ([facility]) 03/25/2024 Ear pain, right Greater trochanteric bursitis of left hip 03/25/2024 H/O hypercholesterolemia 03/25/2024 Hearing loss Hearing loss 03/25/2024 Heart disease HLD (hyperlipidemia) ([facility]) HTN (hypertension) ([facility]) HTN (hypertension) ([facility]) 03/25/2024 Hyperlipidemia ([facility]) 03/25/2024 Kidney stone Kidney stone 03/25/2024 Lipoma of back 03/25/2024 Loose body in knee 03/25/2024 NC (myocardial infarction) ([facility]) x2 MMT (medial meniscus tear) 03/25/2024 Myocardial infarct ([facility]) 03/25/2024 Obesity with body mass index 30 or greater 03/25/2024 Otalgia 03/25/2024 Other chondrocalcinosis, right knee 03/25/2024 Other chronic pain 03/25/2024 Paresthesias in left hand 03/25/2024 Percocet use disorder, mild ([facility]) Pneumonia Pneumonia 03/25/2024 Pseudogout of right knee 03/25/2024 Purulent bronchitis ([facility]) 03/25/2024 Right leg pain 11/30/2016 Sensorineural hearing loss (SNHL) of both ears 03/25/2024 Stroke ([facility]) 03/25/2024 Tobacco abuse 03/25/2024 Type 2 diabetes mellitus ([facility]) Type 2 diabetes mellitus ([facility]/HCC) 03/25/2024 Uterus cancer ([facility]) Work related injury 11/30/2016 Past Surgical History: Procedure Laterality Date CARPAL TUNNEL RELEASE Bilateral CHOLECYSTECTOMY 2005 FOOT SURGERY 1973 needle in foot removed HYSTERECTOMY 1988 KNEE SURGERY Right 2006 NAIL REMOVAL toenails removed x3 [place] ARTHROSCOPY KNEE DIAGNOSTIC W/WO SYNOVIAL BX SPX Right 02/24/2020 Dr. Ashraf [place] KNEE SCOPE,DIAGNOSTIC Right 09/30/2020 JAB TONSILLECTOMY 1972 [...] , wrist extensors , wrist flexor , food counselor strength 5/5. LUE Strength deltoid , biceps , triceps , wrist extensors , wrist flexor , food counselor strength 5/5. RLE Strength illopsoas, quadriceps, tibialis [...] knee reflex 0. Mckay's sign negative. Coordination: Vcggrd-mi-szoi testing and rapid alternating movements are normal Gait: Normal Review and summary of old records: CT of the brain without contrast on 07/07/2024: Right posterior scalp hematoma. CT of the cervical spine without contrast on 07/07/2024: no evidence of fracture or traumatic malalignment Assessment/Plan Diagnoses and all orders for this visit: Loss of consciousness ([facility]) It is my impression that the patient has suffered an episode of loss of consciousness. This actually happened twice in the other episode happened while the patient was on the toilet. Patient was seenat the emergency department for the fall loss of consciousness and did hit her head so hard that she had a substantial posterior scalp hematoma on CT scan but did not have any other acute intracranial findings. CT of the cervical spine also unremarkable. Patient has no seizure history. However, thepatient is diabetic. Sugars were measured and were [...] has a scheduled appointment with Cardiology at [facility] later this afternoon and their input will be important here to ensure that we do not have a rhythm abnormality We will obtain a routine EEG to assess for any epileptiform abnormalities which may be contributingto the patient's symptoms MRI of the brain with and without contrast given the patient's kidney disease Bilateral hand numbness Patient has numbness in the bilateral upper extremities and hands. She states she occasionally dropthings for reasons that are unclear. I am certainly concerned this could represent a mononeuropathysuch as carpal tunnel or could be part [...] plan, and return instructions documented in this encounterHannibal Regional [id number] Progress note Author Aretha Valadez [facility] Note Date/Time August 19, 2024 1 0:18am [facility] [address] [place] [address] Wound Center Provider Note Signed Patient: Virgen Gonzales MR#: [id number] : 1955 Acct:[id number] Age/Sex: 68 / F Copies to: LUKE Almonte CNP~ HPI Date of Visit Date of Visit: Date of Service: 08/19/2024 Time of Service: 10:13 Narrative HPI: 08/19/2024-Virgen is a 68-year-old female who presents to [facility] wound center for evaluation and treatment of chronic right lower extremity skin abnormality. Patient reports that approximately 2 years ago, shestruck her leg on a large piece of plastic and reports the area has not healed well since. Upon exam, no open wound or ulceration is noted, however venous stasis dermatitis is present. Suspect venous insufficiency given the large amount of hemosiderin staining and obvious varicose veins to the bilateral lowerextremities. Patient does have a firm nonpitting edema to the bilateral lower extremities as well. Will plan to initiate clobetasol 0.05% ointment for the venous stasis dermatitis to be applied twice daily for 2 weeks. Did also discussed the importance of elevation and a long-term use of compression to control edema, as she reports she does stand all day for work. Recommended compression stockings to be applied on in the morning off in the evening. Patient reports she will obtain compression stockings to utilize. Patient reports she has had pain in the RLE since striking her leg on the plastic 2 years ago, we will plan to obtain an x-ray to rule out any acute bony abnormality or foreign body. No acute signs or symptoms of infection are noted at today's visit. Patient is a known type II diabetic and reports that her mostrecent A1c was 10. We will plan to see the patient back in the office in 2 weeks to reevaluate. 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: Personal vehicle Lives with:: Alone Appetite Description: Within Normal Limits Who helps w/ dressing change?: Self Smoking Status: Current every day smoker [facility] Medical History (Updated 08/19/24 @ 10:14 by Aretha Valadez APRN) History of myocardial infarction Cigarette nicotine dependence Insomnia Osteoporosis Bilateral lower extremity edema Dysuria Depression Hidradenitis suppurativa Headache Ulcer of right leg History of uterine cancer Asthma Allergic sinusitis Arthritis Diabetes mellitus, type 2 Myocardial infarct x 2 Hypertension Hyperlipidemia Surgical History History of carpal tunnel release rt hand with rt thumb, and finger trigger repair History of arthroscopy of right knee History of hysterectomy Hx of tonsillectomy Hx of cholecystectomy Family History Father CAD (coronary artery disease) Dementia CHF (congestive heart failure) Diabetes Mother CAD (coronary artery disease) Brother Myocardial infarction Brother Stroke Father Diabetes Heart disease Family/Other Legacy FamHx Problem: 1 brother deceasedundefinedn1 sister Mother Hypertension History of stroke Legacy FamHx Problem: Diagnosed with Stroke Family history of mental disorder Legacy FamHx Problem: Diagnosed with Mental Illness Heart disease Sibling Heart disease Social History Smoking Status: Current every day smoker Tobacco Type: cigarettes Substance Use Type: None Social History Comments: Xdowywky-wi-igg will be with patient after surgery Grafts History of Graft History of Graft?: No Exam Physical Exam Vital Signs: Temp Pulse Resp BP O2 Del Method 98.2 F 87 20 100/44 L Room Air 08/19/24 09:13 08/19/24 09:13 08/19/24 09:13 08/19/24 09:13 08/19/24 09:13 Const General: cooperative, comfortable, no acute distress and well groomed Nutritional Appearance: overweight Lower/Upper Extremity Exam Vascular Exam-Edema Right Lower Extremity: Edema Type: Non-Pitting Edema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 Nontoxic multinodular goiter Thyroid nodule (CMS/HCC) Nontoxic uninodular goiter Hearing loss, unspecified hearing loss type, unspecified laterality documented in this encounter [facility]* Diagnosis Thyroid nodule (CMS/HCC)- Primary Nontoxic uninodular goiter Nontoxic multinodular goiter (CMS/HCC) Nontoxic multinodular goiter documented in this encounter [facility]* Diagnosis Nontoxic multinodular goiter (CMS/HCC)- Primary Nontoxic multinodular goiter Thyroid nodule (CMS/HCC) Nontoxic uninodular goiter documented in this encounter [facility] HealthcareEvaluation note* Diagnosis Thyroid nodule ([facility])- Primary Nontoxic uninodular goiter Nontoxic multinodular goiter ([facility]) Nontoxic multinodular goiter Thyroid dysfunction ([facility]) Unspecified disorder of thyroid documented in this encounter [facility] HealthcareEvaluation note* Diagnosis Type 2 diabetes mellitus with hyperglycemia, with long-term current use of insulin ([facility])- Primary Encounter for dietary consultation Vitamin D deficiency Primary hypertension ([facility]) Unspecified essential hypertension Hyperlipemia, mixed ([facility]) Mixed hyperlipidemia Class 3 severe obesity due to excess calories with serious comorbidity and body mass index (BMI) of 40.0 to 44.9 in adult ([facility]) documented in this encounter [facility] HealthcareEvaluation note* Diagnosis Loss of consciousness ([facility])- Primary Other alteration of consciousness Bilateral hand numbness Disturbance of skin sensation documented in this encounter [facility] HealthcareEvaluation note* Diagnosis Lateral epicondylitis of right elbow- Primary Right elbow pain Pain in joint, upper arm Triceps tendonitis Other enthesopathy of elbow region documented in this encounter [facility] HealthcareEvaluation note* Diagnosis Bilateral hand numbness Disturbance of skin sensation documented in this encounter [facility] HealthcareHospital Discharge instructions No data available for this section [facility] note No data available for this section [facility] HospitalReason for visit Narrative* Consultation (Routine) - Closed Specialty Diagnoses / Procedures Referred By Contac t Referred To Contact Neurology Diagnoses Tremor, unspecified Procedures GA OFFICE/OUTPATIENT [facility] Aggie Davis MD [address] [place] [address] Phone: tel:[phone] fax: Becky Calixto MD [address] [place] [address] Phone: tel: fax: Referral ID Status Reason Start Date Expiration Date V isits Requested Visits Authorized [id number] Closed Consult and Treat 07/01/2024 12/28/2024 1 1 [facility] Healthcare Summary Purpose Family History No Family [...] Procedures L Inj/Asp: L knee Brice Estrella, [address] [place] [address] Referral ID Status Reason Start Date Expiration Date Visits Re quested Visits Authorized [id number] Closed 08/27/2023 02/23/2024 1 1 Chief Complaint [...] stage 1 through stage 4 chronic ki February 3rd, 2025 1:41pm Kidney mass August 31, 2024 1 :41pm Secondary hyperparathyroidism August 312024 1:41pm Type 2 diabetes mellitus wit h diabetic chronic kidney disease August 31, 2024 1:41pm Chief Complaint Admit Date P Susan/ old r leg injury August 19, 2024 9:08am CKD 4 August 31, 2024 1 :41pm r40.September 14, 2024 2:36pm Leg Ulcer Edema Rt Leg September 14 2:39pm Chief Complaint Admit Date CKD 4 August 31, 2024 1 :41pm r40.September 14, 2024 2:36pm Leg Ulcer Edema Rt Leg September 14 2:39pm P Susan/ old r leg injury August 8:14am Reason for Visit Admit Date CKD (chronic kidney disease) stage 4, GF R 15-29 ml/min August 31, 2024 1:41pm Hyperlipidemia August 31, 2024 1 :41pm Hypertensive chronic kidney disease with stage 1 through stage 4 chronic ki August 31, 2024 1:41pm Kidney mass August 31, 2024 1 :41pm Secondary hyperparathyroidism August 312024 1:41pm Type 2 diabetes mellitus wit h diabetic chronic kidney disease August 31, 2024 1:41pm Diabetes mellitus, type 2 September 21, 2024 8:14am Hemosiderin pigmentation of lower extremity due to varicose veins September 21, 2024 8:14am Pain September 21, 2024 8:14am Peripheral edema September 21, 2024 8:14am Venous insufficiency September 21, 2024 8:14am Venous stasis dermatitis of right lower extremity September 21, 2024 8:14am Chief Complaint Admit Date CKD 4 August 31, 2024 1 :41pm [email or web address] September 14, 2024 2:36pm Leg Ulcer Edema Rt Leg September 14 2:39pm P Susan/ old r leg injury August 8:14am N18.4 - Chronic kidney disease, stage 4 (severe) October 13, 2024 12:10pm Additional Source Comments INFORMATION SOURCE (unrecogn ized section and content) DATE CREATED AUTHOR [facility] DATE CREATED AUTHOR AUTHOR'S ORGANIZ ATION 08/25/2022 [facility] DATE CREATED AUTHOR AUTHOR'S ORGANIZ ATION 01/04/2023 [facility] DATE CREATED AUTHOR AUTHOR'S ORGANIZ ATION 07/11/2024 [facility] DATE CREATED AUTHOR AUTHOR'S ORGANIZ ATION 08/17/2024 [facility] DATE CREATED AUTHOR AUTHOR'S ORGANIZ ATION 08/22/2024 [facility] DATE CREATED AUTHOR AUTHOR'S ORGANIZ ATION 09/06/2024 [facility] EPIC DATE CREATED AUTHOR AUTHOR'S ORGANIZ ATION 09/08/2024 [facility] DATE CREATED AUTHOR AUTHOR'S ORGANIZ ATION 10/15/2024 [facility] Patient Care team informatio n (unrecognized section and content) Team Status: Active Member Role Status Dates Aggie Davis REHABILITATION SERVICES DIRECTOR-C Primary Care Provider Active Team Status: Active Member Role Status Dates Aggie Davis REHABILITATION SERVICES DIRECTOR-C Primary Care Provider Active Start: January 25, 2024 Imer Green DO Attending Provider Active Sta rt: January 25, 2024 Team Status: Inactive Member Role Status Dates Aggie Davis NP-C Primary Care Pr edwin, Attending Provider Active Start: February 14, 2024 End: February 14, 2024 Team Status: Inactive Member Role Status Dates Aggie Davis REHABILITATION SERVICES DIRECTOR-C Primary Care Provider Active Start: March 26, 2024 End: March 26, 2024 Da Phillip DO Attending Provider Active S tart: March 26, 2024 End: March 26, 2024 Debt And Budget Counselor Relationship Specialty Start Date End Date Unallocated, [facility] Provider [address] [place] [address] PCP - General 12/18/22 Debt And Budget Counselor Relationship Specialty Start Date End Date Unallocated, [facility] Provider [address] [place] [address] PCP - General 12/18/22 Team Status: Inactive Member Role Status Dates Aggie Davis REHABILITATION SERVICES DIRECTOR-C Primary Care Provider Active Start: August 22, 2023 End: August 22, 2023 Brice Estrella DO Attending Provider Active Sta rt: August 22, 2023 End: August 22, 2023 Team Status: Inactive Member Role Status Dates Da Phillip DO Attending Provider Active S tart: April 13, 2024 End: April 13, 2024 Debt And Budget Counselor Relationship Specialty Start Date End Date Carter Granger MD [address] [place] [phone] PCP - General Family Medicine 04/10/24 Aggie Davis MD [address] [place] [address] Referring Physician Family Medicine 04/10/24 Da Phillip DO [address] [place] [address] Otolaryngology 04/10/24 Debt And Budget Counselor Relationship Specialty Start Date End Date Carter Granger MD [address] [place] [phone] PCP - General Family Medicine 04/10/24 Aggie Davis MD [address] [place] [phone] Referring Physician Family Medicine 04/10/24 Da Phillip DO [address] [place] [address] Otolaryngology 04/10/24 Debt And Budget Counselor Relationship Specialty Start Date End Date Carter Granger MD [address] [place] [phone] PCP - General Family Medicine 04/10/24 Aggie Davis MD [address] [place] [address] Referring Physician Family Medicine 04/10/24 Da Phillip DO [address] [place] [address] Otolaryngology 04/10/24 Debt And Budget Counselor Relationship Specialty Start Date End Date Carter Granger MD [address] [place] [phone] PCP - General Family Medicine 04/10/24 Aggie Davis MD [address] [place] [address] Referring Physician Family Medicine 04/10/24 Da Phillip DO [address] [place] [address] Otolaryngology 04/10/24 Debt And Budget Counselor Relationship Specialty Start Date End Date Carter Granger MD [address] [place] [phone] PCP - General Family Medicine 04/10/24 Aggie Davis MD [address] [place] [address] Referring Physician Family Medicine 04/10/24 Da Phillip DO [address] [place] [address] Otolaryngology 04/10/24 Debt And Budget Counselor Relationship Specialty Start Date End Date Unallocated, [facility] MD Too [address] [place] [address] PCP - General 12/18/22 Debt And Budget Counselor Relationship Specialty Start Date End Date Unallocated, [facility] MD Too [address] [place] [address] PCP - General 12/18/22 Debt And Budget Counselor Relationship Specialty Start Date End Date Carter Granger MD [address] [place] [address] PCP - General Family Medicine 04/10/24 Aggie Davis MD [address] [place] [address] Referring Physician Family Medicine 04/10/24 Da Phillip DO [address] [place] [address] Otolaryngology 04/10/24 Debt And Budget Counselor Relationship Specialty Start Date End Date Carter Granger MD [address] [place] [phone] PCP - General Family Medicine 04/10/24 Aggie Davis MD [address] [place] [phone] Referring Physician Family Medicine 04/10/24 Da Phillip DO [address] [place] [address] Otolaryngology 04/10/24 Debt And Budget Counselor Relationship Specialty Start Date End Date Carter Granger MD [address] [place] [phone] PCP - General Family Medicine 04/10/24 Aggie Davis MD [address] [place] [address] Referring Physician Family Medicine 04/10/24 Da Phillip DO [address] [place] [address] Otolaryngology 04/10/24 Olman De La Rosa DO [address] [place] [phone] Referring Physician Neurology 08/20/24 Debt And Budget Counselor Relationship Specialty Start Date End Date Carter Granger MD [address] [place] [phone] PCP - General Family Medicine 04/10/24 Aggie Davis MD [address] [place] [address] Referring Physician Family Medicine 04/10/24 Da Phillip DO [address] [place] [address] Otolaryngology 04/10/24 Olman De La Rosa DO [address] [place] [phone] Referring Physician Neurology 08/20/24 Debt And Budget Counselor Relationship Specialty Start Date End Date Carter Granger MD [address] [place] [phone] PCP - General Family Medicine 04/10/24 Aggie Davis MD [address] [place] [address] Referring Physician Family Medicine 04/10/24 Da Phillip DO [address] [place] [address] Otolaryngology 04/10/24 Olman De La Rosa DO [address] [place] [phone] Referring Physician Neurology 08/20/24 Team Status: Active Member Role Status Dates Aretha Valadez APRN Attending Provider Active Start: August 19, 2024 CONCEPCIÓN DeyC Primary Care Provider Active Start: August 19, 2024 Team Status: Inactive Member Role Status Dates AVIVA Dey Primary Care Provider Active Start: August 31, 2024 End: August 31, 2024 Dinah Sepulveda MD Attending Provider Active Start : August 31, 2024 End: August 31, 2024 Debt And Budget Counselor Relationship Specialty Start Date End Date Carter Granger MD [address] [place] [phone] PCP - General Family Medicine 04/10/24 Aggie Davis MD [address] [place] [phone] Referring Physician Family Medicine 04/10/24 Da Phillip DO [address] [place] [address] Otolaryngology 04/10/24 Olman De La Rosa DO [address] [place] [phone] Referring Physician Neurology 08/20/24 Debt And Budget Counselor Relationship Specialty Start Date End Date Carter Granger MD [address] [place] [address] PCP - General Family Medicine 04/10/24 Aggie Davis MD [address] [place] [address] Referring Physician Family Medicine 04/10/24 Da Phillip DO [address] [place] [address] Otolaryngology 04/10/24 Olman De La Rosa DO [address] [place] [phone] Referring Physician Neurology 08/20/24 Team Status: Active Member Role Status Dates Aggie Davis NP-C Primary Care Provider Active Start: July 22, 2024 Imer Green DO Attending Provider Active Sta rt: July 22, 2024 Team Status: Inactive Member Role Status Dates Aggie Davis NP-C Primary Care Provider Active Start: September 14, 2024 End: September 14, 2024 Olman De La Rosa DO Attending Provider Active Start: September 14, 2024 End: September 14, 2024 Team Status: Inactive Member Role Status Dates Aggie Davis NP-C Primary Care Provider Active Start: September 14, 2024 End: September 14, 2024 Aretha Valadez APRN Attending Provider Active Start: September 14, 2024 End: September 14, 2024 Team Status: Inactive Member Role Status Dates Aretha Valadez APRN Attending Provider Active Start: September 21, 2024 End: September 21, 2024 Aggie Davis NP-C Primary Care Provider Active Start: September 21, 2024 End: September 21, 2024 Team Status: Inactive Member Role Status Dates AVIVA Dey Primary Care Provider Active Start: October 13, 2024 End: October 13, 2024 Dinah Sepulveda MD Attending Provider Active Start : October 13, 2024 End: October 13, 2024 Ponce Silvestre Other Provider Active Start: Sep End: October 13, 2024 Mathieu Naqvi MD Other Provider Active Start: October 13, 2024 End: October 13, 2024 Reason for Visit (unrecogniz ed section and [...] BE BASED ON THE PRIMARY CLINICAL RECORDS. [employer] provides no warranty or guarantee of the accuracy or completeness of information in this document.
[2024-10-30] MEDS: POTASSIUM CHLORIDE 10 MEQ ER TABLET 40 MEQ PO (23:57)
[2024-10-31 04:00] VITALS: BP 91/57; PULSE 74; TEMP 36.4; O2SAT 95
[2024-10-31] MEDS: 0.9 % SODIUM CHLORIDE 1,000 ML 200 ML IV ×3 (05:00→15:31)
[2024-10-31 06:42] LABS: C. Difficile PCR NEGATIVE
[2024-10-31 07:55] VITALS: BP 106/46; PULSE 80; TEMP 36.8; O2SAT 93
[2024-10-31 07:56] LABS: Glucometer 118 mg/dL (74-106)
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
[2024-10-31 08:35] LABS: Basophils Percent Auto 0.4 % (0.2-2.0); Eosinophils Absolute Auto 0.2 10^3/uL (0.0-0.7); Eosinophils Percent Auto 1.8 % (0.9-7.0); Hematocrit 35.1 % (36.0-48.0); Hemoglobin 11.3 g/dL (12.0-16.0); Immature Granulocytes Abs Auto 0.09 10^3/uL (0.00-0.03); Immature Granulocytes Pct Auto 0.8 % (0.0-0.5); Lymphocytes Absolute Auto 1.9 10^3/uL (1.2-3.8); Lymphocytes Percent Auto 16.3 % (20.5-60.0); Mean Corpuscular HGB Conc 32.2 g/dL (29.9-35.2); Mean Corpuscular Volume 90.2 fL (81.0-99.0); Mean Platelet Volume 10.9 fL (9.5-13.5); Monocytes Absolute Auto 0.6 10^3/uL (0.3-0.8); Monocytes Percent Auto 5.4 % (1.7-12.0); Neutrophils Absolute Auto 8.6 10^3/uL (1.4-6.5); Neutrophils Percent Auto 75.3 % (43.0-75.0); Platelet Count 175 10^3/uL (150-450); Red Blood Count 3.89 10^6/uL (4.20-5.40); Red Cell Distribution Width 15.7 % (11.0-15.0); White Blood Count 11.4 10^3/uL (4.0-11.0)
[2024-10-31 08:49] LABS: Alanine Aminotransferase 14 U/L (14-59); Albumin Level 2.8 g/dL (3.4-5.0); Alkaline Phosphatase 110 U/L (46-116); Anion Gap 16.7; Aspartate Amino Transferase 13 U/L (15-37); BUN Creatinine Ratio 17.2; Bilirubin Total 0.2 mg/dL (0.2-1.0); Calcium 7.6 mg/dL (8.5-10.1); Carbon Dioxide 17.5 mmol/L (21.0-32.0); Chloride 113 mmol/L (98-107); Estimated GFR (African America 21 (>=60 mL/min/1.73m^2); Estimated GFR (Non-African Ame 18 (>=60 mL/min/1.73m^2); Globulin 2.9 g/dL; Glucose 122 mg/dL (74-106); Potassium 4.2 mmol/L (3.5-5.1); Sodium 143 mmol/L (136-145); Total Protein 5.7 g/dL (6.4-8.2)
[2024-10-31] MEDS: PANTOPRAZOLE SODIUM 40 MG TABLET.DR PO ×2 (09:17→21:09)
[2024-10-31] MEDS: FLUOXETINE HCL 20 MG CAPSULE PO (09:17)
[2024-10-31] MEDS: ATORVASTATIN CALCIUM 20 MG TABLET PO (09:18)
[2024-10-31] MEDS: BUSPIRONE HCL 15 MG TABLET 7.5 MG PO ×2 (09:18→21:08)
[2024-10-31] MEDS: INSULIN NPH HUMAN ISOPHANE 100 UNIT/ML 10ML MDV 22 UNIT SQ ×2 (09:18→21:09)
[2024-10-31] MEDS: HEPARIN SODIUM (PORCINE) 5,000 UNIT/ML VIAL 5000 UNIT SUBQ ×2 (09:18→21:08)
[2024-10-31] MEDS: ASPIRIN 81 MG TABLET.DR PO (09:18)
[2024-10-31 11:45] VITALS: BP 106/50; PULSE 80; TEMP 36.5; O2SAT 97
[2024-10-31] MEDS: ACETAMINOPHEN 325 MG TABLET 650 MG PO ×2 (12:43→18:33)
[2024-10-31 15:17] VITALS: BP 108/65; PULSE 78; TEMP 36.4; O2SAT 96
[2024-10-31 20:00] VITALS: BP 106/51; PULSE 82; TEMP 36.8; O2SAT 93
[2024-10-31 20:53] LABS: Glucometer 152 mg/dL (74-106)
[2024-10-31] MEDS: CIPROFLOXACIN IN 5 % DEXTROSE 400 MG/200 ML PREMIX 200 MG IV (21:07)
[2024-10-31] MEDS: 0.9 % SODIUM CHLORIDE 1,000 ML 150 ML IV (23:29)
[2024-10-31 23:55] VITALS: BP 105/57; PULSE 81; TEMP 37; O2SAT 92
[2024-11-01] MEDS: ACETAMINOPHEN 325 MG TABLET 650 MG PO ×3 (01:23→11:37)
[2024-11-01 04:00] VITALS: BP 115/67; PULSE 78; TEMP 37.2; O2SAT 94
[2024-11-01] MEDS: 0.9 % SODIUM CHLORIDE 1,000 ML 150 ML IV (04:55)
[2024-11-01 07:00] LABS: Basophils Absolute Auto 0.1 10^3/uL (0.0-0.1); Basophils Percent Auto 0.7 % (0.2-2.0); Eosinophils Absolute Auto 0.3 10^3/uL (0.0-0.7); Eosinophils Percent Auto 2.9 % (0.9-7.0); Hemoglobin 10.6 g/dL (12.0-16.0); Immature Granulocytes Abs Auto 0.06 10^3/uL (0.00-0.03); Immature Granulocytes Pct Auto 0.7 % (0.0-0.5); Lymphocytes Percent Auto 23.1 % (20.5-60.0); Mean Corpuscular HGB Conc 32.1 g/dL (29.9-35.2); Mean Corpuscular Volume 90.4 fL (81.0-99.0); Mean Platelet Volume 10.9 fL (9.5-13.5); Monocytes Absolute Auto 0.5 10^3/uL (0.3-0.8); Monocytes Percent Auto 6.1 % (1.7-12.0); Neutrophils Absolute Auto 5.8 10^3/uL (1.4-6.5); Neutrophils Percent Auto 66.5 % (43.0-75.0); Platelet Count 173 10^3/uL (150-450); Red Blood Count 3.65 10^6/uL (4.20-5.40); Red Cell Distribution Width 15.9 % (11.0-15.0); White Blood Count 8.7 10^3/uL (4.0-11.0)
[2024-11-01 07:07] LABS: Alanine Aminotransferase 11 U/L (14-59); Albumin Globulin Ratio 0.9; Albumin Level 2.5 g/dL (3.4-5.0); Alkaline Phosphatase 92 U/L (46-116); Anion Gap 14.5; Aspartate Amino Transferase 13 U/L (15-37); BUN Creatinine Ratio 18.1; Bilirubin Total 0.3 mg/dL (0.2-1.0); Calcium 7.5 mg/dL (8.5-10.1); Carbon Dioxide 18.2 mmol/L (21.0-32.0); Chloride 116 mmol/L (98-107); Estimated GFR (African America 34 (>=60 mL/min/1.73m^2); Estimated GFR (Non-African Ame 28 (>=60 mL/min/1.73m^2); Globulin 2.8 g/dL; Glucose 82 mg/dL (74-106); Potassium 3.7 mmol/L (3.5-5.1); Sodium 145 mmol/L (136-145); Total Protein 5.3 g/dL (6.4-8.2)
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
[2024-11-01 07:35] VITALS: BP 127/70; PULSE 69; TEMP 36.6; O2SAT 93
[2024-11-01] MEDS: ASPIRIN 81 MG TABLET.DR PO (08:34)
[2024-11-01] MEDS: HEPARIN SODIUM (PORCINE) 5,000 UNIT/ML VIAL 5000 UNIT SUBQ (08:34)
[2024-11-01] MEDS: PANTOPRAZOLE SODIUM 40 MG TABLET.DR PO (08:34)
[2024-11-01] MEDS: ATORVASTATIN CALCIUM 20 MG TABLET PO (08:34)
[2024-11-01] MEDS: BUSPIRONE HCL 15 MG TABLET 7.5 MG PO (08:34)
[2024-11-01] MEDS: INSULIN NPH HUMAN ISOPHANE 100 UNIT/ML 10ML MDV 22 UNIT SQ (08:34)
[2024-11-01] MEDS: FLUOXETINE HCL 20 MG CAPSULE PO (08:34)
[2024-11-01 11:32] VITALS: BP 145/72; PULSE 79; TEMP 36.6; O2SAT 94
[2024-11-01 15:05] VITALS: BP 127/69; PULSE 79; TEMP 36.7; O2SAT 95
--- OUTSIDE RECORDS SUMMARY | 2024-11-02 07:40 | XMS_ITS | CCD ---
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 Urine sediment by Automated count 0-8 [facility] Ketones Test strip Ql (U)Ord ered By: Dinah Sepulveda on 10-13-2024 Ketones Ql (U) Ketones [Presence] i n Urine by Test strip Negative [facility] Leukocyte esterase [Presence ] in Urine by Test stripOrdered By: Dinah Sepulveda on 10-13-2024 Leukocyte esterase Test strip Ql (U) Leukocyte esterase [Presence] in Urine by Test strip High Negative [facility] Leukocytes [#/area] in Urine sediment by Automated countOrdered By: Dinah Sepulveda on 10-13-2024 WBC Auto (Urine sed) [#/Area] Leukocytes [#/area] in Urine sediment by Automated count High 0-4 [facility] Leukocytes [#/volume] correc graham for nucleated erythrocytes in Blood by Automated counOrdered By: Dinah Sepulveda on 10-13-2024 WBC corrected for nucl RBC Auto (Bld) [#/Vol] Leukocytes [#/volume] corrected for nucleated erythrocytes in Blood by Automated coun 3.8-11.6 [facility] Lipid Panelon 10-13-2024 Cholesterol [Mass/Vol] 95 mg/dL Low 140-200 [facility] Comment on above: Result Comment: Chol less than 200 mg/dl low risk Chol 201-239 mg/dl borderline risk Chol 240 mg/dl and greater high risk Performed By: #### L IPID #### [facility] [address] [place] [address] [place] #### CPEP #### [facility] , Cholesterol in HDL [Mass/Vol] 28 mg/dL Normal 23-92 [facility] Comment on above: Result Comment: HDL CHOL ATP-III CLASSIFICATION Cardiovascular Risk HDL > or equal to 60 mg/dL LOW HDL < 40 mg/dL HIGH Performed By: #### L IPID #### [facility] [address] [place] [address] [place] #### CPEP #### [facility] , Cholesterol.total/Vivian sterol in HDL [Mass ratio] 3.4 {ratio} Normal <5.0 [facility] Comment on above: Result Comment: PERF ORMED BY: [place] [address] PATHOLOGIST CLERICAL MANAGER NISHANT MORLEY M.D. Performed By: #### L IPID #### [facility] [address] [place] [address] [place] #### CPEP #### [facility] , LDL Cholesterol,Calculated 48 mg/dL Normal 0-100 [facility] Comment on above: Result Comment: LDL ATP III CLASSIFICATION LDL less than 100 mg/dL Optimal LDL 100-129 mg/dL Near or above optimal LDL 130-159 mg/dL Borderline high LDL 160-189 mg/dL High LDL greater than 189 mg/dL Very high Performed By: #### L IPID #### [facility] [address] [place] [address] [place] #### CPEP #### [facility] , Triglyceride w/Reflex 97 mg/dL Normal 0-149 [facility] Comment on above: Result Comment: TRIG ATP III CLASSIFICATION TRIG less than 150 mg/dL Normal TRIG 150-199 mg/dL Borderline high TRIG 200-500 mg/dL High TRIG greater than 500 mg/dL Very high Standard traceable to the Center for Disease Conrtrol and Prevention (CDC) test method. Performed By: #### L IPID #### [facility] [address] [place] [address] [place] #### CPEP #### [facility] , VLDL CHOLESTEROL 19 mg/dL Normal [facility] Comment on above: Performed By: #### L IPID #### [facility] [address] #### CPEP #### [facility] , MCH Auto (RBC) [Entitic mass ]Ordered By: iDnah Sepulveda on 10-13-2024 MCH (RBC) [Entitic mass] MCH [Entitic mass] by Automated count 24.7-34.3 [facility] MCHC Auto (RBC) [Mass/Vol]Or dered By: Dinah Stubbsdir on 10-13-2024 MCHC (RBC) [Mass/Vol] MCHC [Mass/volume] by Automated count 32.0-35.0 [facility] MCV Auto (RBC) [Entitic vol] Ordered By: Dinah Sunr on 10-13-2024 MCV (RBC) [Entitic vol] MCV [Entitic vol ume] by Automated count 80-100 [facility] Magnesiumon 10-13-2024 Magnesium [Mass/Vol] 2.1 mg/dL Normal 1.9-2.7 [facility] Comment on above: Performed By: #### U JAMSHID, MG, PTH, CBCNO ####[facility] [id number] Magnesium [Mass/volume] in S yoav or PlasmaOrdered By: Dinah Sepulveda on 10-13-2024 Magnesium [Mass/Vol] Magnesium [Mass/volume] in Serum or Plasma 1.9-2.7 [facility] MicroAlb Creat Ratio,Uon Albumin DL <= 20 mg/L (U) [Mass/Vol] 0.7 mg/dL Normal 0.0-1.8 [facility] Comment on above: Performed By: #### U RMACRERAT ####[address] [place] [address] [facility] Microalbumin/Creatinine Ratio 9.2 mg/g Normal 0.0-30.0 [facility] Comment on above: Result Comment: 30-3 00 mg/g indicates an increased risk for diabetic nephropathy. Greater than 300 mg/g is consistent with clinical nephropathy. (Am. J. Kidney Disease 1995, 25:107) PERFORMED BY: [facility] [address] [place] [id number] PATHOLOGIST CLERICAL MANAGER NISHANT MORLEY M.D. Performed By: #### U RMACRERAT ####[address] [place] [address] [facility] Microalbumin [Mass/volume] i n UrineOrdered By: Mathieu Naqvi on 10-13-2024 Albumin DL <= 20 mg/L (U) [Mass/Vol] Microalbumin [Mass/volume] in Urine 0.0-1.8 [facility] Mucus [Presence] in Urine by AutomatedOrdered By: Dinah Sepulveda on 10-13-2024 Mucus Auto Ql (U) Mucus [Presence] in Urine by Automated [facility] Nitrite Test strip Ql (U)Ord ered By: Dinah Sepulveda on 10-13-2024 Nitrite Ql (U) Nitrite [Presence] i n Urine by Test strip Negative [facility] No Panel InformationOrdered By: Mathieu Naqvi on 10-13-2024 Estimated GFR (CKD-EPI) 34.741 mL/Min [facility] Creatinine Clearance (Chem N/A [facility] Parathyrin.intact [Mass/volu me] in Serum or PlasmaOrdered By: Dinah Sepulveda on 10-13-2024 Parathyrin.intact [Mass/Vol] Parathyrin.intact [Mass/volume] in Serum or Plasma High [facility] Parathyroid Hormone Intacton 10-13-2024 Parathyroid Hormone Intact 224.1 pg/mL High [facility] Comment on above: Result Comment: PERF ORMED BY: [facility] [address] [place] [address] PATHOLOGIST CLERICAL MANAGER NISHANT MORLEY M.D. Performed By: #### U JAMSHID, MG, PTH, CBCNO ####[facility] [id number] Phosphate [Mass/volume] in S yoav or PlasmaOrdered By: Mathieu Naqvi on 10-13-2024 Phosphate [Mass/Vol] Phosphate [Mass/volume] in Serum or Plasma 2.5-4.5 [facility] Platelet mean volume Auto (B ld) [Entitic vol]Ordered By: Dinah Sepulveda on 10-13-2024 Platelet mean volume (Bld) [Entitic vol] Platelet mean volume [Entitic volume] in Blood by Automated count 6.3-10.7 [facility] Platelets Auto (Bld) [#/Vol] Ordered By: Dinah Sepulveda on 10-13-2024 Platelets (Bld) [#/Vol] Platelets [#/vol ume] in Blood by Automated count 150-450 [facility] Potassium [Moles/volume] in Serum or PlasmaOrdered By: Mathieu Naqvi on 10-13-2024 Potassium [Moles/Vol] Potassium [Moles/volume] in Serum or Plasma 3.5-5.1 [facility] Protein Creat Ratio Ur Rando mon 10-13-2024 Creatinine, Urine (Random) 76.00 mg/dL Normal [facility] Comment on above: Result Comment: No r eference range established Performed By: #### A DDONUAPLUS, CUU, PROCRERAT #### [facility] [address] [place] [address] Performed By: #### U RMACRERAT ####[facility] [id number] Protein (U) [Mass/Vol] 17 mg/dL High 0-9 [facility] Comment on above: Performed By: #### A JALEESA RAPHAEL PROCRERAT #### [facility] [address] Urine Protein/Creatinine Ratio 224 mg/g{Cre} High 0-200 [facility] Comment on above: Result Comment: PERF ORMED BY: [place] [address] PATHOLOGIST CLERICAL MANAGER NISHANT MORLEY M.D. Performed By: #### A JALEESA RAPHAEL PROCRERAT #### [address] Protein Test strip (U) [Mass /Vol]Ordered By: Dinah Sepulveda on 10-13-2024 Protein (U) [Mass/Vol] Protein [Mass/vol ume] in Urine by Test strip Negative [facility] Protein [Mass/volume] in Ser um or PlasmaOrdered By: Ponce Silvestre on 10-13-2024 Protein [Mass/Vol] Protein [Mass/volume ] in Serum or Plasma 6.4-8.9 [facility] Protein [Mass/volume] in Uri neOrdered By: Dinah Sepulveda on 10-13-2024 Protein (U) [Mass/Vol] Protein [Mass/vol ume] in Urine High 0-9 [facility] RBC Auto (Bld) [#/Vol]Ordere d By: Dinah Sepulveda on 10-13-2024 RBC (Bld) [#/Vol] Erythrocytes [#/volume] in Blood by Automated count 3.60-5.00 [facility] Renal Function Panelon 10-13 Albumin [Mass/Vol] 3.8 g/dL Normal 3.5-5.7 [facility] Comment on above: Performed By: #### V [id number], RENAL #### [facility] [address] Anion gap [Moles/Vol] 11.8 mmol/L Normal 6.0-15.0 [facility] Comment on above: Performed By: #### V [id number], RENAL #### [facility] [address] Calcium [Mass/Vol] 8.8 mg/dL Normal 8.6-10.3 [facility] Comment on above: Performed By: #### V [id number], RENAL #### [facility] [address] Chloride [Moles/Vol] 106 mmol/L Normal 98-107 [facility] Comment on above: Performed By: #### V [id number], RENAL #### [facility] [address] CO2 [Moles/Vol] 27.1 mmol/L Normal 21.0-31.0 [facility] Comment on above: Performed By: #### V [id number], RENAL #### [facility] [address] Creatinine [Mass/Vol] 1.59 mg/dL High 0.60-1.20 [facility] Comment on above: Performed By: #### V [id number], RENAL #### [address] Estimated GFR 34.741 mL/Min Normal [facility] Comment on above: Performed By: #### V [id number], RENAL #### [place] [address] [place] Glucose [Mass/Vol] 108 mg/dL High 70-100 [facility] Comment on above: Result Comment: [place] Glucose Reference Range is dependent on time and content of last meal. Glucose of more than 200 mg/dL in a nonstressed, ambulatory subject supports the diagnosis of Diabetes Mellitus. ADA recommended reference range Performed By: #### V [id number], RENAL #### [facility] [address] [place] [address] [place] Phosphate [Mass/Vol] 3.4 mg/dL Normal 2.5-4.5 [facility] Comment on above: Performed By: #### V [id number], RENAL #### [facility] [address] [place] [address] [place] Potassium [Moles/Vol] 3.9 mmol/L Normal 3.5-5.1 [facility] Comment on above: Performed By: #### V [id number], RENAL #### [facility] [address] Sodium [Moles/Vol] 141 mmol/L Normal 136-145 [facility] Comment on above: Performed By: #### V [id number], RENAL #### [facility] [address] Urea nitrogen [Mass/Vol] 24 mg/dL Normal 7-25 [facility] Comment on above: Performed By: #### V [id number], RENAL #### [facility] [address] Serum or plasma albumin/glob ulin mass ratioOrdered By: Ponce Silvestre on 10-13-2024 Albumin/Globulin [Mass ratio] Serum or plasma albumin/globulin mass ratio [facility] Serum or plasma anion gap de terminationOrdered By: Mathieu Naqvi on 10-13-2024 Anion gap [Moles/Vol] Serum or plasma an ion gap determination 6.0-15.0 [facility] Serum or plasma non-glucuron idated bilirubin measurement (mass/volume)Ordered By: Ponce Silvestre on 10-13-2024 Bilirubin.indirect [Mass/Vol] Serum or plasma non-glucuronidated bilirubin measurement (mass/volume) [facility] Serum or plasma total choles terol/high density lipoprotein (HDL) cholesterol mass ratOrdered By: Mathieu Naqvi on 10-13-2024 Cholesterol.total/Vivian sterol in HDL [Mass ratio] Serum or plasma total cholesterol/high density lipoprotein (HDL) cholesterol mass rat <5.0 [facility] Sodium [Moles/volume] in Ser um or PlasmaOrdered By: Mathieu Naqvi on 10-13-2024 Sodium [Moles/Vol] Sodium [Moles/volume ] in Serum or Plasma 136-145 [facility] Specific gravity Test strip (U) [Rel density]Ordered By: Dinah Sepulveda on 10-13-2024 Specific gravity (U) [Rel density] Specific gravity of Urine by Test strip 1.001-1.030 [facility] Triglyceride [Mass/volume] i n Serum or PlasmaOrdered By: Mathieu Naqvi on 10-13-2024 Triglyceride [Mass/Vol] Triglyceride [Mass/volume] in Serum or Plasma 0-149 [facility] Comment on above: TRIG ATP III CLASSIF ICATIONTRIG less than 150 mg/dL NormalTRIG 150-199 mg/dL Borderline highTRIG 200-500 mg/dL High TRIG greater than 500 mg/dL Very highStandard traceable to the Center for Disease Conrtrol and Prevention (CDC) test method. Urate [Mass/volume] in Serum or PlasmaOrdered By: Dinah Sepulveda on 10-13-2024 Urate [Mass/Vol] Urate [Mass/volume] in Serum or Plasma High 2.3-6.6 [facility] Urea nitrogen [Mass/volume] in Serum or PlasmaOrdered By: Mathieu Naqvi on 10-13-2024 Urea nitrogen [Mass/Vol] Urea nitrogen [Mass/volume] in Serum or Plasma 7-25 [facility] Uric Acidon 10-13-2024 Urate [Mass/Vol] 7.7 mg/dL High 2.3-6.6 [facility] Comment on above: Result Comment: PERF ORMED BY: [place] [address] PATHOLOGIST CLERICAL MANAGER NISHANT MORLEY M.D. Performed By: #### U JAMSHID, MG, PTH, CBCNO ####[facility] [id number] [place] [id number] [facility] Urine Cultureon 10-13-2024 Bacteria identified Cx Nom (U) >100,000 colonies/ml mixed bacterial skin contaminants 2 Days PERFORMED BY: [facility] [address] [place] [address] PATHOLOGIST CLERICAL MANAGER NISHANT MORLEY M.D. Normal [facility] Comment on above: Performed By: #### A JALEESA RAPHAEL, PROCRERAT ####[facility] Res[address] Urine cultureOrdered By: Summer Sepulveda on 10-13-2024 Bacteria identified Cx Nom (U) Urine culture [facility] Urine microalbumin/creatinin e mass ratioOrdered By: Mathieu Naqvi on 10-13-2024 Albumin/Creatinine DL <= 20 mg/L (U) [Mass ratio] Urine microalbumin/creatinin e mass ratio 0.0-30.0 [facility] Comment on above: 30-300 mg/g indicate s an increased risk for diabetic nephropathy. Greater than 300 mg/g is consistent with clinical nephropathy. (Am. J. Kidney Disease 1995, 25:107) Urine protein/creatinine rat ioOrdered By: Dinah Sepulveda on 10-13-2024 Protein/Creatinine (U) [Ratio] Urine protein/creatinine ratio High 0-200 [facility] Urobilinogen Test strip (U) [Mass/Vol]Ordered By: Dinah Sepulveda on 10-13-2024 Urobilinogen (U) [Mass/Vol] Urobilinogen [Mass/volume] in Urine by Test strip Normal [facility] Vitamin D 25 Hydroxy Totalon 10-13-2024 Vitamin D 25 Hydroxy Total 15.0 ng/mL Low 30-100 [facility] Comment on above: Result Comment: [place] MIN D STATUS 25(OH)VITAMIN D RANGE (ng/mL) Deficient <20 Insufficient 20 to <30 Sufficient 30 to 100 Reference: Sima MF,Luann NC, Merline FERRER, et al. Evaluation,treatment, and prevention of vitamin D deficiency; an Endocrine Society clinical practice guideline. JCEM. 2010; 96(7):1911-30. PERFORMED BY: [facility] [address] [place] [address] PATHOLOGIST CLERICAL MANAGER NISHANT MORLEY M.D. Performed By: #### V [id number], RENAL #### [facility] [address] Vitamin D+Metabolites [Mass/ volume] in Serum or PlasmaOrdered By: Mathieu Naqvi on 10-13-2024 Vitamin D+Metabolites [Mass/Vol] Vitamin D+Metabolites [Mass/volume] in Serum or Plasma Low 30-100 [facility] Comment on above: VITAMIN D STATUS 25( [place])VITAMIN D RANGE (ng/mL) Deficient <20 Insufficient 20 to <30Sufficient 30 to 100Reference: Sima MF,Luann NC, Merline FERRER, et al. Evaluation,treatment, and prevention of vitamin D deficiency; an Endocrine Society clinical practice guideline. JCEM. 2010; 96(7):1911-30. pH Test strip (U)Ordered By: Dinah Sepulveda on 10-13-2024 pH (U) pH of Urine by Test strip 5.0-9.0 [facility] MR head/brain wo/w conon MR head/brain wo/w con [facility] [place] [address] MRI Report Signed Patient: Virgen Gonzales MR# : [id number] : 1955 Acct:[id number] Age/Sex: 69 / F ADM Date: 09/14/24 Loc: [facility] Room: Type: [facility] Attending Dr: Olman De La Rosa DO [...] noted as above. Impression dictated by: Jacinto Glalagher M.D.09/14/2024 5:21 PM Dictation Location: [facility]- Transcribed By: KATHIE 09/14/24 172 Dictated By: Jacinto Gallagher II, MD 09/14/24 1714 Signed By: 09/14/24 172 Normal [facility] Magnetic resonance imaging r eportOrdered By: Jacinto Gallagher on 09-14-2024 Study report [facility] Main [place] [address] [place] [address] MRI Report Signed Patient: Virgen Gonzales MR#: [id number] : 1955 Acct:[id number] Age/Sex: 69 / F ADM Date: 5 [facility]: Type: [facility] Attending Dr: Olman De La Rosa DO [...] Jacinto Gallagher M.D.09/14/2024 5:21 PM Dictation Location: [place] [address] Transcribed By: KATHIE 09/14/241720 Dictated By: Jacinto Gallagher II, MD 09/14/24 171 Signed By: 09/14/241720 [facility] Work Phone: X-ray reportOrdered By: Gareth Horn on 09-14-2024 Study report [facility] Main [place] [address] [place] [address] XRay Report Signed Patient: Virgen Gonzales MR#: [id number] : 1955 Acct:[id number] Age/Sex: 69 / F ADM Date: 5 Loc: [facility]D Room: Type: [facility] Attending Dr: Aretha Valadez APRN Copies to: [...] Jose Horn DO 09/14/242034 Signed By: 09/14/242039 [facility] XR tibia fibula RT 2V*on XR tibia fibula RT 2V* [facility] [place] [address] XRay Report Signed Patient: Virgen Gonzales MR# : [id number] : 1955 Acct:[id number] Age/Sex: 69 / F ADM Date: 09/14/24 Loc: X Room: Type: [facility] Attending Dr: Arehta Valadez APRN Copies to: Aretha Valadez APRN [...] Jose Horn M.D.09/14/2024 8:40 PM Dictation Location: [employer] [facility] Transcribed By: KATHIE 09/14/242039 Dictated By: Jose Horn DO 09/14/242034 Signed By: 09/14/242039 Normal [facility] Ambulatory Visit Summaryon 0 [...] Kang BOSS MD Where: [facility] [address] [place] [address]- You Need to Schedule the Following Appointments Follow Up with Kang BOSS MD, URL When: In 6 months Comments: w/TOMEKA Where: [facility] [address] , [place] [address]- Medications What How Much When Instructions Unchanged [...] (Difficulty lobo (more content not included)... Normal [facility] Ambulatory Visit Summary Ambulatory Visit Summary [...] With: Kang BOSS MD [facility] [address] [place] [address]- You Need to Schedule the Following Appointments Follow Up with KARYN WRAY, SHAVONNE Ponce When: In 6 months Comments: w/TOMEKA Where: [facility] [address], [facility] [place] [address]- Medications What How Much When Instructions Unchanged [...] (Difficulty lobo (more content not included)... 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 [facility] EMG 2 ExtremitiesOrdered By: Olman De La Rosa on 09-03-2024 [facility] Work Phone: [place] 9-10 Nerveson 09-03-2024 [facility] Bilateral ulnar neuropathies, 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 [facility] XR Elbow - right 3 Viewson 0 08-31-2024 Imaging Result: Three views of the right elbow, AP/lateral/oblique, taken today and saved to the permanent medical record. Joint spaces are preserved, no swelling in the olecranon bursa, no spurring at the olecranon, no fat pad sign, no bony lesions [facility] Study observation (narrative) [facility] Office Visiton 08-20-2024 Follow-up visit [id number] Virgen Harris 1955 F Date Provider Department Center 08/20/2024 271-[place], E[facility] Family History Problem Relation Age of Onset Heart failure Mother Heart failure Father Heart failure Paternal Grandmother Family Status - Relation Status Age at Mother Father Paternal Grandmother Level of Service:49737 [place] OFFICE/OUTPATIENT NEW LOW MDM 30 MINUTES Normal [facility] C Urineon 07-09-2024 Bacteria identified Cx [...] Locations R1: This test was performed at: [facility], [address] [place] [address], [phone]- , , Normal [facility] Comment on above: Performed By: #### 2 [id number] #### [facility] [address] [place] [address] ED Note-Physicianon 07-09-20 ED Note-Physician ED Note-Physician [...] syncopal episode at work. Patient works at [employer] and states all of a sudden she [...] if appl (more content not included)... Normal [facility] Comment on above: Result Comment: Elec tronically Signed By: Kelly Smith PA-C\.br\Date and Time Signed: 07/08/24 02:10 EST\.br\Electronically Co-Signed By: Ean Azevedo M.D.\.br\Date and Time Co-Signed: 07/09/24 07:05 EST ABO/Rh History Checkon 07-08 ABO/Rh History Check Patient discharged prior Normal [facility] Comment on above: Performed By: #### 1 [id number] #### [facility] [address] [place] [address] CT Abdomen/Pelvis w/ Contras ton 07-08-2024 CT [...] 300 Contrast amount in ml's: 130 Normal [facility] CT Chest w/ Contraston 07-08 CT [...] 300 Contrast amount in ml's: 130 Normal [facility] CT Head or Brain w/o Contras [...] Signed by: Imer Montague MD Transcribed by: JOHS Technologist: YONIS Normal [facility] CT Spine Cervical w/o Contra ston [...] MD Transcribed by: JOSH Technologist: YONIS Normal [facility] ABO/Rhon 07-07-2024 ABO/Rh Positive Invalid Interpretation Code [facility] Comment on above: Performed By: #### 2 [id number] #### [facility] [address] [place] [address] ABSCon 07-07-2024 ABSC Gel Interp Negative Normal [facility] Comment on above: Performed By: #### 1 [id number] #### [facility] [address] [place] [address] B hCG Qualon 07-07-2024 Beta HCG ( test) Ql Negative Normal [facility] Comment on above: Performed By: #### 2 [id number] #### [facility] [address] [place] [address] BLOOD BANKOrdered By: Willard Greenwood on 07-07-2024 ABO/Rh Interp Positive Invalid Interpretation Code [facility] BB Subsection ABSC Gel Interp Negative (07/07/24 6:48 PM) Normal [facility] BB Subsection BMPon 07-07-2024 Anion gap [Moles/Vol] 11 mmol/L Normal 6-16 [facility] Comment on above: Performed By: #### 2 [id number] #### [facility] [address] [place] [address] Calcium [Mass/Vol] 9.1 mg/dL Normal 8.9-11.1 [facility] Comment on above: Performed By: #### 2 [id number] #### [facility] [address] [place] [address] Chloride [Moles/Vol] 104 mmol/L Normal 101-111 [facility] Comment on above: Performed By: #### 2 [id number] #### [facility] [address] [place] [address] CO2 [Moles/Vol] 26 mmol/L Normal 21-31 [facility] Comment on above: Performed By: #### 2 [id number] #### [facility] [address] [place] [address] Creatinine [Mass/Vol] 1.8 mg/dL High 0.5-1.3 [facility] Comment on above: Performed By: #### 2 [id number] #### [facility] [address] [place] [address] Glucose [Mass/Vol] 154 mg/dL Normal 55-199 [facility] Comment on above: Performed By: #### 2 [id number] #### [facility] [address] [place] [address] Potassium [Moles/Vol] 3.6 mmol/L Normal 3.5-5.3 [facility] Comment on above: Performed By: #### 2 [id number] #### [facility] [address] [place] [address] Sodium [Moles/Vol] 137 mmol/L Normal 135-145 [facility] Comment on above: Performed By: #### 2 [id number] #### [facility] [address] [place] [address] Urea nitrogen [Mass/Vol] 23 mg/dL High 5- [facility] Comment on above: Performed By: #### 2 [id number] #### [facility] [address] [place] [address] Urea nitrogen/Creatinine [Mass ratio] 13 No Units Normal 10- [facility] Comment on above: Performed By: #### 2 [id number] #### [facility] [address] [place] [address] Blood Bank ID#on 07-07-2024 BBID# [id number] Invalid Interpretation Code [facility] Comment on above: Performed By: #### 1 [id number] #### [facility] [address] [place] [address] CBC w/ Auto Diffon 4 Basophils/100 WBC (Bld) 0.6 % Normal 0.0-2.0 [facility] Comment on above: Result Comment: Amy ection date/time has been modified to: 18:23:00. Previous collection date/time: 18:45:00. Performed By: #### 2 194701 #### [facility] [address] [place] [address] Basophils/Leukocytes Auto (Bld) [Pure # fraction] 0.1 E9/L Normal 0.0-0.2 [facility] Comment on above: Result Comment: Amy ection date/time has been modified to: 18:23:00. Previous collection date/time: 18:45:00. Performed By: #### 2 [id number] #### [facility] [address] [place] [address] Eosinophils (Bld) [#/Vol] 0.3 E9/L Normal 0.0-0.5 [facility] Comment on above: Result Comment: Amy ection date/time has been modified to: 18:23:00. Previous collection date/time: 18:45:00. Performed By: #### 2 [id number] #### [facility] [address] [place] [address] Eosinophils/100 WBC (Bld) 3.1 % Normal 0.0-8.0 [facility] Comment on above: Result Comment: Amy ection date/time has been modified to: 18:23:00. Previous collection date/time: 18:45:00. Performed By: #### 2 [id number] #### [facility] [address] [place] [address] Erythrocyte distribution width (RBC) [Ratio] 15.1 % High 10.9-14.2 [facility] Comment on above: Result Comment: Amy ection date/time has been modified to: 18:23:00. Previous collection date/time: 18:45:00. Performed By: #### 2 [id number] #### [facility] [address] [place] [address] Hematocrit (Bld) [Volume fraction] 38.3 % Normal 34.0-46.0 [facility] Comment on above: Result Comment: Amy ection date/time has been modified to: 18:23:00. Previous collection date/time: 18:45:00. Performed By: #### 2 [id number] #### [facility] [address] [place] [address] Hemoglobin (Bld) [Mass/Vol] 12.7 g/dL Normal 12.0-16.0 [facility] Comment on above: Result Comment: Amy ection date/time has been modified to: 18:23:00. Previous collection date/time: 18:45:00. Performed By: #### 2 [id number] #### [facility] [address] [place] [address] Lymphocytes (Bld) [#/Vol] 2.4 E9/L Normal 1.0-4.0 [facility] Comment on above: Result Comment: Amy ection date/time has been modified to: 18:23:00. Previous collection date/time: 18:45:00. Performed By: #### 2 [id number] #### [facility] [address] [place] [address] Lymphocytes/100 WBC (Bld) 26.6 % Normal 14.0-50.0 [facility] Comment on above: Result Comment: Amy ection date/time has been modified to: 18:23:00. Previous collection date/time: 18:45:00. Performed By: #### 2 [id number] #### [facility] [address] [place] [address] MCH (RBC) [Entitic mass] 29.9 pg Normal 27.0-34.0 [facility] Comment on above: Result Comment: Amy ection date/time has been modified to: 18:23:00. Previous collection date/time: 18:45:00. Performed By: #### 2 [id number] #### [facility] [address] [place] [address] MCHC (RBC) [Mass/Vol] 33.1 g/dL Normal 31.4-36.0 [facility] Comment on above: Result Comment: Amy ection date/time has been modified to: 18:23:00. Previous collection date/time: 18:45:00. Performed By: #### 2 485305 #### [facility] [address] [place] [address] MCV (RBC) [Entitic vol] 90.2 fL Normal 80.0-100.0 [facility] Comment on above: Result Comment: May ection date/time has been modified to: 18:23:00. Previous collection date/time: 18:45:00. Performed By: #### 2 [id number] #### [facility] [address] [place] [address] Monocytes (Bld) [#/Vol] 0.5 E9/L Normal 0.2-1.0 [facility] Comment on above: Result Comment: Amy ection date/time has been modified to: 18:23:00. Previous collection date/time: 18:45:00. Performed By: #### 2 [id number] #### [facility] [address] [place] [address] Neutrophils (Bld) [#/Vol] 5.8 E9/L Normal 2.0-7.5 [facility] Comment on above: Result Comment: Amy ection date/time has been modified to: 18:23:00. Previous collection date/time: 18:45:00. Performed By: #### 2 [id number] #### [facility] [address] [place] [address] Neutrophils/100 WBC (Bld) 64.2 % Normal 36.0-75.0 [facility] Comment on above: Result Comment: Amy ection date/time has been modified to: 18:23:00. Previous collection date/time: 18:45:00. Performed By: #### 2 [id number] #### [facility] [address] [place] [address] Platelet mean volume (Bld) [Entitic vol] 10.1 fL Normal 6.4-10.8 [facility] Comment on above: Result Comment: Amy ection date/time has been modified to: 18:23:00. Previous collection date/time: 18:45:00. Performed By: #### 2 [id number] #### [facility] [address] [place] [address] Platelets (Bld) [#/Vol] 183.0 E9/L Normal 150.0-500.0 [facility] Comment on above: Result Comment: Amy ection date/time has been modified to: 18:23:00. Previous collection date/time: 18:45:00. Performed By: #### 2 [id number] #### [facility] [address] [place] [address] RBC (Bld) [#/Vol] 4.2 E12/L Low 4.3-5.9 [facility] Comment on above: Result Comment: Amy ection date/time has been modified to: 18:23:00. Previous collection date/time: 18:45:00. Performed By: #### 2 [id number] #### [facility] [address] [place] [address] WBC corrected for nucl RBC Auto (Bld) [#/Vol] 9.1 E9/L Normal 4.0-11.0 [facility] Comment on above: Result Comment: Amy ection date/time has been modified to: 18:23:00. Previous collection date/time: 18:45:00. Performed By: #### 2 [id number] #### [facility] [address] [place] [address] Basophils/100 WBC (Bld) 0.6 % Normal 0.0-2.0 [facility] Comment on above: Performed By: #### 2 [id number] #### [facility] [address] [place] [address] Basophils/Leukocytes Auto (Bld) [Pure # fraction] 0.1 E9/L Normal 0.0-0.2 [facility] Comment on above: Performed By: #### 2 [id number] #### [facility] [address] [place] [address] Eosinophils (Bld) [#/Vol] 0.3 E9/L Normal 0.0-0.5 [facility] Comment on above: Performed By: #### 2 [id number] #### [facility] [address] [place] [address] Eosinophils/100 WBC (Bld) 3.1 % Normal 0.0-8.0 [facility] Comment on above: Performed By: #### 2 [id number] #### [facility] [address] [place] [address] Erythrocyte distribution width (RBC) [Ratio] 15.1 % High 10.9-14.2 [facility] Comment on above: Performed By: #### 2 288219 #### [facility] [address] [place] [address] Hematocrit (Bld) [Volume fraction] 38.3 % Normal 34.0-46.0 [facility] Comment on above: Performed By: #### 2 553666 #### [facility] [address] [place] [address] Hemoglobin (Bld) [Mass/Vol] 12.7 g/dL Normal 12.0-16.0 [facility] Comment on above: Performed By: #### 2 [id number] #### [facility] [address] [place] [address] Lymphocytes (Bld) [#/Vol] 2.4 E9/L Normal 1.0-4.0 [facility] Comment on above: Performed By: #### 2 [id number] #### [facility] [address] [place] [address] Lymphocytes/100 WBC (Bld) 26.6 % Normal 14.0-50.0 [facility] Comment on above: Performed By: #### 2 [id number] #### [facility] [address] [place] [address] MCH (RBC) [Entitic mass] 29.9 pg Normal 27.0-34.0 [facility] Comment on above: Performed By: #### 2 163620 #### [facility] [address] [place] [address] MCHC (RBC) [Mass/Vol] 33.1 g/dL Normal 31.4-36.0 [facility] Comment on above: Performed By: #### 2 [id number] #### [facility] [address] [place] [address] MCV (RBC) [Entitic vol] 90.2 fL Normal 80.0-100.0 [facility] Comment on above: Performed By: #### 2 [id number] #### [facility] [address] [place] [address] Monocytes (Bld) [#/Vol] 0.5 E9/L Normal 0.2-1.0 [facility] Comment on above: Performed By: #### 2 [id number] #### [facility] [address] [place] [address] Neutrophils (Bld) [#/Vol] 5.8 E9/L Normal 2.0-7.5 [facility] Comment on above: Performed By: #### 2 436183 #### [facility] [address] [place] [address] Neutrophils/100 WBC (Bld) 64.2 % Normal 36.0-75.0 [facility] Comment on above: Performed By: #### 2 314687 #### [facility] [address] [place] [address] Platelet mean volume (Bld) [Entitic vol] 10.1 fL Normal 6.4-10.8 [facility] Comment on above: Performed By: #### 2 132643 #### [facility] [address] [place] [address] Platelets (Bld) [#/Vol] 183.0 E9/L Normal 150.0-500.0 [facility] Comment on above: Performed By: #### 2 [id number] #### [facility] [address] [place] [address] RBC (Bld) [#/Vol] 4.2 E12/L Low 4.3-5.9 [facility] Comment on above: Performed By: #### 2 [id number] #### [facility] [address] [place] [address] WBC corrected for nucl RBC Auto (Bld) [#/Vol] 9.1 E9/L Normal 4.0-11.0 [facility] Comment on above: Performed By: #### 2 [id number] #### [facility] [address] [place] [address] CHEMISTRYOrdered By: SYSTEM SYSTEM on 07-07-2024 Amphetamines [...] Remisol Chem Comment on above: Interpretive Data: Lyudmila meng 95% CI (Confidence Interval) PPV (Positive Predictive [...] 07-07-2024 Total CK 149 Int._Unit/L Normal 14-261 [facility] Comment on above: Performed By: #### 2 [id number] #### [facility] [address] [place] [address] COAGULATIONOrdered By: Leslie Chavez on 07-07-2024 aPTT Coag (PPP) [Time] 31.1 s Normal 25.1 - 36.5 second(s) [facility] Auto Coag Comment on [...] the same coagulation reagent and instrumentation as [facility]. Currently there are no coagulation studies available worldwide for children to 14 days, and no normal ranges. Heparin therapeutic range (represented by Anti-Factor Xa activity of 0.2 - 0.4 U/mL) corresponds to PTT of 56.6 - 109.0 sec. INR Coag (PPP) [Relative time] 0.92 {INR} Invalid Interpretation Code [facility] Auto Coag Comment on above: Interpretive Data: I NR results are specifically intended to assess patients stabilized on long-term Anticoagulation therapy suggested INR s Less Intensive Anticoagulation 2.0 3.0 Conventional Range 3.0 4.5 PT Coag (PPP) [Time] 10.3 s Normal 9.4 - 1 2.5 second(s) [facility] Auto Coag Comment on [...] the same coagulation reagent and instrumentation as [facility]. Currently there are no coagulation studies available worldwide for children to 14 days, and no normal ranges. ED Clinical Summaryon 2023 ED Clinical Summary ED Clinical Summary [place] [id number] ED Clinical Summary Person Information Name: VIRGEN GONZALES [place] Age: 68 Years : 1955 Sex: Female Language: Spanish PCP: AGGIE DAVIS CNP Marital Status: Visit [...] 07/07/2024 22:29:17 07/07/2024 22:29:17 07/07/2024 22:29:17 AD[address]: [address] [place], [place] [address] [id number] PHYS DOC NOTES: MEDICAL INFORMATION: Prescriptions Given: New Medications [facility], [address] [place], [place] [id number], [phone] cephalexin (cephalexin 500 mg Cap) 1 Capsules [...] EDUCATION INFORMATION: Instructions: Urinary Tract Infection, Adult, Ddfg-or-Komr; Syncope, Adult, Qtht-ly-Xtza; Head Injury, Adult, Hpia-po-Kqsn; Contusion, Dbgi-qf-Mzoe Follow up: With: Address: When: AGGIE DAVIS [address] [place] [address] [phone] Spout (more content not included)... Normal [facility] ED Patient Summaryon 024 ED Patient Summary ED Patient Summary [place] [id number] Patient Discharge Instructions Person Information Name: VIRGEN GONZALES Age: 68 Years Arrival Date: 07/07/2024 18:16:48 Discharge Diagnosis: 1:Contusion of occipital region of scalp; 2:Syncope and collapse; 3:Acute lower urinary tract infection Primary Care Physician: AGGIE DAVIS CNP Provider Information Primary Provider: Tiny Fallon DO Advanced Operating Room Aide:None The exam and treatment you received in the Emergency Department were for an urgent problem and are not intended as complete care. It is important that you follow up with a doctor, nurse practitioner, or physician???s sales office assistant for ongoing care. If your [...] When: AGGIE DAVIS [address] [place] [phone] Spout (1) In 3 days 07/10/2024 In the event that this physician does not participate in your insurance network, please consult with your insurance company to find a nearby participating provider. Patient Education Materials: Urinary Tract Infection, Adult, Xtrp-wu-Tadq; Syncope, Adult, Tdht-xk-Zkpa; Head Injury, Adult, Pjou-yj-Tscf; Contusion, Gylm-on-Xpve A MESSAGE TO ALL PATIENTS REGARDING OPIOIDS PRESCRIPTION OPIOIDS: WHAT YOU NEED TO KNOW Prescription opioids can be used to help relieve uuedxmms-jz-zveigl pain and are often prescribed following a [...] (www.fda.gov/Drugs/Res ourcesFo (more content not included)... Normal [facility] Ethanolon 07-07-2024 Ethanol Lvl <10 Normal <=11 [facility] Comment on above: Performed By: #### 2 [id number] #### [facility] [address] [place] [address] HEMATOLOGYOrdered By: SYSTEM SYSTEM on 07-07-2024 Basophils/100 [...] 07-07-2024 Albumin [Mass/Vol] 3.9 g/dL Normal 3.3-5.0 [facility] Comment on above: Performed By: #### 2 [id number] #### [facility] [address] [place] [address] Albumin/Globulin (S) [Mass conc ratio] 1.4 Normal 1.1-2.2 [facility] Comment on above: Performed By: #### 2 [id number] #### [facility] [address] [place] [address] ALP [Catalytic activity/Vol] 112 Int._Unit/L High 21-98 [facility] Comment on above: Performed By: #### 2 [id number] #### [facility] [address] [place] [address] ALT No additional P-5'-P [Catalytic activity/Vol] 11 Int._Unit/L Normal 6-46 [facility] Comment on above: Performed By: #### 2 [id number] #### [facility] [address] [place] [address] AST [Catalytic activity/Vol] 13 Int._Unit/L Normal 5-43 [facility] Comment on above: Performed By: #### 2 [id number] #### [facility] [address] [place] [address] Bilirubin [Mass/Vol] 0.4 mg/dL Normal 0.0-1.1 [facility] Comment on above: Performed By: #### 2 [id number] #### [facility] [address] [place] [address] Bilirubin.direct [Mass/Vol] 0.1 mg/dL Normal 0.0-0.4 [facility] Comment on above: Performed By: #### 2 [id number] #### [facility] [address] [place] [address] Bilirubin.indirect [Mass or moles/Vol] 0.3 mg/dL Normal 0.1-0.9 [facility] Comment on above: Performed By: #### 2 [id number] #### [facility] [address] [place] [address] Globulin (S) [Mass/Vol] 2.8 g/dL Normal 1.4-4.0 [facility] Comment on above: Performed By: #### 2 849887 #### [facility] [address] [place] [address] Protein [Mass/Vol] 6.7 g/dL Normal 6.0-7.8 [facility] Comment on above: Performed By: #### 2 939133 #### [facility] [address] [place] [address] Lactic Acidon 07-07-2024 Lactic Acid Lvl 0.9 mmol/L Normal 0.5-2.2 [facility] Comment on above: Performed By: #### 2 [id number] #### [facility] [address] [place] [address] Lipase Levelon 07-07-2024 Lipase [Catalytic activity/Vol] 22 U/L Normal 13-58 [facility] Comment on above: Performed By: #### 2 [id number] #### [facility] [address] [place] [address] Magnesiumon 07-07-2024 Magnesium [Mass/Vol] 2.2 mg/dL Normal 1.3-2.4 [facility] Comment on above: Performed By: #### 2 146826 #### [facility] [address] [place] [address] Myoglobinon 07-07-2024 Myoglobin [Mass/Vol] 128 ng/mL High <=69 [facility] Comment on above: Performed By: #### 2 [id number] #### [facility] [address] [place] [address] PT & PTTon 07-07-2024 aPTT Coag (PPP) [Time] 31.1 second(s) Normal 25.1-36.5 [facility] Comment on above: Result Comment: Para [...] the same coagulation reagent and instrumentation as [facility]. Currently there are no coagulation studies available worldwide for children to 14 days, and no normal ranges. Heparin therapeutic range (represented by Anti-Factor Xa activity of 0.2 - 0.4 U/mL) corresponds to PTT of 56.6 - 109.0 sec. Performed By: #### 1 [id number] #### [facility] [address] [place] [address] INR Coag (PPP) [Relative time] 0.92 {INR} Invalid Interpretation Code [facility] Comment on above: Result Comment: INR results are specifically intended to assess patients stabilized on long-term Anticoagulation therapy suggested INR???s ???Less Intensive Anticoagulation??? 2.0 ??? 3.0 Conventional Range 3.0 ??? 4.5 Performed By: #### 1 [id number] #### [facility] [address] [place] [address] PT Coag (PPP) [Time] 10.3 second(s) Normal 9.4-12.5 [facility] Comment on above: Result Comment: 15 [...] the same coagulation reagent and instrumentation as [facility]. Currently there are no coagulation studies available worldwide for children to 14 days, and no normal ranges. Performed By: #### 1 [id number] #### [facility] [address] [place] [address] SEROLOGYOrdered By: Gerri Chavez on 07-07-2024 Beta HCG ( test) Ql Negative (07/07/24 6:23 PM) Normal [facility] Man Sero Troponinon 07-07-2024 Troponin HS 10.70 pg/mL Normal 10.10-27.10 [facility] Comment on above: Result Comment: The 95% CI (Confidence Interval) PPV (Positive Predictive Value) for myocardial infarction in females is 38 pg/mL, in males 51 pg/mL. The results should be used in conjunction with clinical conditions of myocardial infarction. (Access High Sensitivity Troponin I Instructions For Use, Lalito Torri, February 2018) Performed By: #### 2 [id number] #### [facility] [address] [place] [address] U Drug Screenon 07-07-2024 Amphetamines Screen method >1000 ng/mL Ql (U) Negative Normal NEGATIVE [facility] Comment on above: Result Comment: Nega tive Cutoff: <1000 ng/mL Performed By: #### 2 [id number] #### [facility] [address] [place] [address] Barbiturates Screen Ql (U) Negative Normal NEGATIVE [facility] Comment on above: Result Comment: Nega tive Cutoff: <200 ng/mL Performed By: #### 2 [id number] #### [facility] [address] [place] [address] Benzodiazepines Ql (U) Negative Normal NEGATIVE [facility] Comment on above: Result Comment: Nega tive Cutoff: <200 ng/mL Performed By: #### 2 [id number] #### [facility] [address] [place] [address] Cannabinoids Screen Ql (U) Negative Normal NEGATIVE [facility] Comment on above: Result Comment: Nega tive Cutoff: <50 ng/mL Performed By: #### 2 [id number] #### [facility] [address] [place] [address] Cocaine Ql (U) Negative Normal NEGATIVE [facility] Comment on above: Result Comment: Nega tive Cutoff: <300 ng/mL Performed By: #### 2 [id number] #### [facility] [address] [place] [address] Opiates Screen Ql (U) Negative Normal NEGATIVE [facility] Comment on above: Result Comment: Nega tive Cutoff: <300 ng/mL Performed By: #### 2 [id number] #### [facility] [address] [place] [address] Phencyclidine Screen method >25 ng/mL Ql (U) Negative Normal NEGATIVE [facility] Comment on above: Result Comment: Nega tive Cutoff: <25 ng/mL These drug screen results are to be used for medical (i.e., treatment) purposes only. Unconfirmed drug screening results must not be used for non-medical purposes (e.g., employment testing, legal testing). Performed By: #### 2 [id number] #### [facility] [address] [place] [address] U Fentanyl Negative Normal NEGATIVE [facility] Comment on above: Result Comment: Nega tive Cutoff: <5 ng/mL These drug screen results are to be used for medical (i.e., treatment) purposes only. Unconfirmed drug screening results must not be used for non-medical purposes (e.g., employment testing, legal testing). Performed By: #### 2 [id number] #### [facility] [address] [place] [address] UA with Cult Rflxon 07-07-20 24 Bacteria Auto Ql (U) 1+ /HPF Abnormal Trace [facility] Comment on above: Performed By: #### 4 [id number] #### [facility] [address] [place] [address] Bilirubin Ql (U) Negative Normal Negative [facility] Comment on above: Performed By: #### 4 [id number] #### [facility] [address] [place] [address] Clarity (U) Ex.Turbid Abnormal Clear [facility] Comment on above: Performed By: #### 4 [id number] #### [facility] [address] [place] [address] Color (U) Light-[place] Abnormal Yellow [facility] Comment on above: Result Comment: Micr oscopic readings are only performed on those samples that meet specific criteria set forth by [facility]. Performed By: #### 4 [id number] #### [facility] [address] [place] [address] Epithelial cells.squamous Auto (Urine sed) [#/Area] >10 Invalid Interpretation Code [facility] Comment on above: Performed By: #### 4 [id number] #### [facility] [address] [place] [address] Glucose Ql (U) 4+ mg/dL Abnormal Negative [facility] Comment on above: Performed By: #### 4 [id number] #### [facility] [address] [place] [address] Hemoglobin Auto test strip (U) [Mass/Vol] 1+ mg/dL Abnormal Negative [facility] Comment on above: Performed By: #### 4 [id number] #### [facility] [address] [place] [address] Ketones Auto test strip Ql (U) Negative Normal Negative [facility] Comment on above: Performed By: #### 4 [id number] #### [facility] [address] [place] [address] Leukocyte esterase Auto test strip Ql (U) 500 Isidoro/uL Abnormal Negative [facility] Comment on above: Performed By: #### 4 [id number] #### [facility] [address] [place] [address] Mucus Auto Ql (U) Negative Normal Negative [facility] Comment on above: Performed By: #### 4 [id number] #### [facility] [address] [place] [address] Nitrite Auto test strip Ql (U) Negative Normal Negative [facility] Comment on above: Performed By: #### 4 [id number] #### [facility] [address] [place] [address] pH (U) 6.5 [pH] Invalid Interpretation Code 5.0-9.0 [facility] Comment on above: Performed By: #### 4 [id number] #### [facility] [address] [place] [address] Protein Ql (U) Trace Abnormal Negative [facility] Comment on above: Performed By: #### 4 [id number] #### [facility] [address] [place] [address] RBC Ql (U) 31-75 Abnormal 0-3 [facility] Comment on above: Performed By: #### 4 [id number] #### [facility] [address] [place] [address] Specific gravity (U) [Rel density] 1.019 Invalid Interpretation Code 1.005-1.030 [facility] Comment on above: Performed By: #### 4 [id number] #### [facility] [address] [place] [address] Urobilinogen (U) [Mass/Vol] Negative Normal Negative [facility] Comment on above: Performed By: #### 4 [id number] #### [facility] [address] [id number] WBC Auto (Urine sed) [#/Area] 31-75 Abnormal 0-5 [facility] Comment on above: Performed By: #### 4 [id number] #### [facility] [address] [place] [address] Yeast.budding Computer assisted Ql (U) Trace Abnormal [facility] Comment on above: Performed By: #### 4 [id number] #### [facility] [address] [place] [address] Type of Urine collection method Clean Catch Normal [facility] Comment on above: Performed By: #### 4 [id number] #### [facility] [address] [id number] URINALYSISOrdered By: SYSTEM SYSTEM on 07-07-2024 Bacteria Auto Ql (U) 1+ /HPF Invalid Interpretation Code Trace/HPF [facility] UA Auto SS Bilirubin Ql (U) Negative Normal Negativemg/ dL [facility] UA Auto SS Clarity (U) Ex.Turbid *ABN* (07/07/24 7:41 PM) Invalid Interpretation Code Clear FT UA Auto SS Color (U) Light-[place] 3 *ABN* (07/07/24 7:41 PM) Invalid Interpretation Code Yellow [facility] UA Auto SS Comment on above: Interpretive Data: M icroscopic readings are only performed on those samples that meet specific criteria set forth by [facility]. Epithelial cells.squamous Auto (Urine sed) [#/Area] >10 graded/HPF Invalid Interpretation Code FT UA Auto SS Glucose Ql (U) 4+ mg/dL Invalid Interpretation Code Negativemg/ dL [facility] UA Auto SS Hemoglobin Auto test strip (U) [Mass/Vol] 1+ mg/dL Invalid Interpretation Code Negativemg/ dL [facility] UA Auto SS Ketones Auto test strip [...] Desc Clean Catch (07/07/24 7:41 PM) Normal [facility] UA Auto SS Work Phone: eGFRon 07-07-2024 eGFR 30 mL/min/1.73 m2 Low >=59 [facility] Comment on above: Performed By: #### 1 [id number] #### [facility] [address] [place] [address] [facility] 04-13-2024 L Specimen: [id number] Received: 04/15/24-1243 Status: ANIRUDH Resmiley Num: [id number] Spec Type: Cytology Subm Dr: Da Phillip,DO Tissues: A FNA SLIDES NOPATH (RT THYR) B FNA SLIDES NOPATH (THY ISTHM) Procedures: Cyto Int and Re/2, PAPSTN/22 Age/ Patient Sex Location Account Attending Physician Virgen Gonzales 68/F [place] [id number] Da Phillip DO SPEC NUM: [id number] RECD: 04/15/24 STATUS: ANIRUDH ANDRADE NUM: [id number] AMY: 04/13/24-1135 [facility] DR: Da Phillip DO ENTERED: 04/15/[address]: SPEC TYPE: Cytology DEPT: CNG ENTERED BY: [id number] RECV BY: [id number] ORDERED: Cyto Int and Re/2, PAPSTN/22 ORDERED: Cyto Int and Re/2, PAPSTN/22 Supplemental Report Addendum 2 Entered: 05/11/24-3 Supplemental to correct the specimen type of Part B specimen, without a change of initial diagnosis Corrected specimen type B, Isthmus thyroid nodule, FNA cytology: Addendum Signed (signature on file) Noemy De Los Santos MD 05/11/24 1013 ---- Addendum 1 Entered: 05/11/24-1009 Supplemental for findings of [facility] GENOMIC SEQUENCING 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 COLLECTOR: -Ensemble Whipped Topping Finisher -Benign (risk of malignancy 4%) ---- Specimen: [id number] Received: 04/15/24 Status: ANIRUDH Ramon Num: [id number] Spec Type: Cytology Subm Dr: Da S Biedenbach,DO Tissues: A FNA SLIDES NOPATH (RT THYR) B FNA SLIDES NOPATH (THY ISTHM) Procedures: Cyto Int and Re/2, PAP ---- Patient: KayceeyungVirgen [id number] (Continued) ---- Specimen: [id number] Received: 04/15/24 (Continued) Supplemental Report (Continued) Signed (signature on file) Noemy De Los Santos MD 04/21/24 1010 ---- Specimen: [id number] Received: 04/15/24 Status: ANIRUDH Andrade Num: [id number] Spec Type: Cytology Subm Dr: Da Phillip DO Tissues: A FNA SLIDES NOPATH (RT THYR) B FNA SLIDES NOPATH (THY ISTHM) Procedures: Cyto Int and Re/2, PAP ---- Patient: Virgen Gonzales [id number] (Continued) ---- Specimen: [id number] Received: 04/15/24-0640 (Continued) Supplemental Report (Continued) -Xpression [place] -N/A -Other Classifiers -BRAF: Negative -RET/PTC1: Not [...] atypia of undetermined significance, the category 3 Watkins system -Pending additional molecular triage study to follow B, instruments thyroid nodule, FNA cytology: -A few follicular cells are present in combined smears, including occasional small and/or loose follicular groups, adequately for assessment, often showing small round to ovoid nuclei, consistent with the category 2 Watkins system: Benign ---- Specimen: [id number] Received: 04/15/24 Status: ANIRUDH Andrade Num: [id number] Spec Type: Cytology Subm Dr: Da Phillip,DO Tissues: A FNA SLIDES NOPATH (RT THYR) B FNA SLIDES NOPATH (THY ISTHM) Procedures: Cyto Int and Re/2, PAPSTN22 ---- Patient: Virgen Gonzales [id number] (Continued) ---- Specimen: [id number] Received: 04/15/24 (Continued) Signed (signature on file) Noemy De Los Santos MD 04/21/24 1010 ---- Specimen: [id number] Received: 04/15/24 Status: ANIRUDH Andrade Num: [id number] Spec Type: Cytology Subm Dr: Da Phillip,DO Tissues: A FNA SLIDES NOPATH (RT THYR) B FNA SLIDES N (more content not included)... Normal [facility] Thyrotropin [Units/volume] i n Serum or PlasmaOrdered By: Da Phillip on 03-26-2024 TSH Qn 1.31 m[IU]/L Normal 0.45-5.33 [facility] Comment on above: Result Comment: PERF ORMED BY: [facility] [address] [place] [address] PATHOLOGIST CLERICAL MANAGER JENNIFER HERNANDEZ M.D. Performed By: #### T 4T, TSH3, T3T ####[address] Thyroxine (T4) [Mass/volume] in Serum or PlasmaOrdered By: Da Phillip on 03-26-2024 T4 [Mass/Vol] 9.37 ug/dL Normal 5.39-11.82 [facility] Comment on above: Performed By: #### T 4T, TSH3, T3T ####[address] Triiodothyronine (T3) Totalo n 03-26-2024 Triiodothyronine (T3) Total 0.90 ng/mL Normal 0.87-1.78 [facility] Comment on above: Performed By: #### T 4T, TSH3, T3T ####[address] Triiodothyronine (T3) [Mass/ volume] in Serum or PlasmaOrdered By: Da Phillip on 03-26-2024 T3 [Mass/Vol] 0.90 ng/mL 0.87-1.78 [facility] Kobe 02-14-2024 L Specimen: Received: 02/17/24 Status: ANIRUDH Req Num: [id number] Spec Type: Cytology Subm Dr: Aggie Davis CNP Tissues: A FNA SLIDES NOPATH (RT THYROID NOD) B FNA SLIDES NOPATH (ISTHMUS THY) Procedures: Cyto Int and Re/2, PAPSTN/10 Age/ Patient Sex Location Account Attending Physician Virgen Gonzales 68/F [facility] [id number] Aggie Davis CNP SPEC NUM: [id number] RECD: 02/17/24 STATUS: ANIRUDH REQ NUM: [id number] AMY: 02/14/24 DR: Aggie Davis CNP ENTERED: 02/17/[address]: Dina,Lab Becky Avilez MD SPEC TYPE: Cytology DEPT: POP NC ENTERED BY: [id number] RECV BY: [id number] ORDERED: Cyto Int and Re/2, PAPSTN/10 ORDERED: Cyto Int and Re/2, PAPSTN/10 Pathological Diagnosis A. Right thyroid,?fine needle aspiration:? Suspicious for follicular neoplasm, Atypical Follicular Cells With Abundant Colloid. Watkins Category IV B. Isthmus, fine needle aspiration:? Unsatisfactory for evaluation. Too few epithelial cells. Watkins?Category?I Clinical Information Thyroid Nodules Gross Description A. (RIGHT) Received fixed in Cytolyt is <1 ml very pale pink clear fluid for cytology said to have been obtained as right thyroid nodule-mid . ThinPrep preparations are prepared for microscopic examination. Also received are 4 spray fixed smeared slides to be stained pap aa Veracyte vial stored at -20 for microscopic examination.(MI/sd) B. (ISTHMUS) Received fixed in Cytolyt is (1 ml pink clear fluid for cytology said to have ---- Specimen: [id number] Received: 02/17/24 Status: SOULyudmila Req Num: [id number] Spec Type: Cytology Subm Dr: Aggie Davis CNP Tissues: A FNA SLIDES NOPATH (RT THYROID NOD) B FNA SLIDES NOPATH (ISTHMUS THY) Procedures: Cyto Int and Re/2, PAPSTN/10 ---- Patient: KayceeyungVirgen [id number] (Continued) ---- Specimen: [id number] Received: 02/17/24 (Continued) Gross Description (Continued) Signed (signature on file) Nishant Morley MD 02/19/24 1428 ---- Specimen: [id number] Received: 02/17/24 Status: SOULyudmila Req Num: [id number] Spec Type: Cytology Subm Dr: Aggie Davis CNP Tissues: A FNA SLIDES NOPATH (RT THYROID NOD) B FNA SLIDES NOPATH (ISTHMUS THY) Procedures: Cyto Int and Re/2, PAPSTN/10 ---- Patient: Virgen Gonzales [id number] (Continued) ---- Specimen: [id number] Received: 02/17/24-1323 (Continued) Gross Description (Continued) been obtained as Isthmus thyroid nodule. ThinPrep preparations are prepared for microscopic examination. Also received are 4 spray fixed smeared smeared slides to be stained pap and a Veracyte vial stored at -20 for microscopic examination.(MI/sd) CPT Codes 53156s0 ---- ---- Specimen: [id number] Received: 02/17/24-1323 Status: ANIRUDH Andrade Num: [id number] Spec Type: Cytology Subm Dr: Aggie Davis CNP Tissues: A FNA SLIDES NOPATH (RT THYROID NOD) B FNA SLIDES NOPATH (ISTHMUS THY) Procedures: Cyto Int and Re/2, PAPSTN/10 ---- Patient: Virgen Gonzales [id number] (Continued) ---- Signed (signature on file) Nishant Morley MD 02/19/24 1428 Normal [facility] Nonvisit Note - PTon 024 Nonvisit Note - PT Pt cancelled reassessment due to being sick. AMK Normal [facility] Nonvisit Note - PTon 024 Nonvisit Note - PT Pt no showed for 171 5 appointment. Normal [facility] Nonvisit Note - PTon 024 Nonvisit Note - PT Pt called to cancel as she is ill. Normal [facility] Consent for Treatmenton 10-28 Consent for Treatment [id number]#1.0 0TIFF Normal [facility] PT - Assessmentson PT - Assessments [id number] 22 [id number]#1.0 0TIFF Normal [facility] PT - Consentson 11-19-2023 PT - Consents [id number] 22 [id number]#1.0 0TIFF Normal [facility] Insurance Correspondenceon 0 11-12-2023 Insurance Correspondence [id number]#1. 00TIFF Normal [facility] PT - Orderson 11-11-2023 PT - Orders [id number]#1. 00TIFF Normal [facility] L Inj/Asp: L kneeon 08-27-19 24 Sue Henning BEN T 09/02/2023 8:37 AM L Inj/Asp: L knee on 08/27/2023 3:43 PM Indications: pain Details: 21 G needle, lateral approach Medications: 16 mg hylan 16 MG/2ML Consent was given by the patient. [facility] PROF 14(COMP METB)on 023 Albumin [Mass/Vol] 3.2 g/dL Critically low 3.4-5.0 Th [facility] Comment on above: Performed By: #### T SH, CMP, T7, LIPID #### [facility] [address] [place] [address] Dr. Danay De Los Santos Albumin/Globulin [Mass ratio] 1.0 {ratio} Normal [facility] Comment on above: Performed By: #### T SH, CMP, T7, LIPID #### [facility] [address] [address] [address] Danay De Los Santos ALP [Catalytic activity/Vol] 92 U/L Normal 46-116 [facility] Comment on above: Performed By: #### T SH, CMP, T7, LIPID #### [facility] [address] [address] [address] Danay De Los Santos ALT [Catalytic activity/Vol] 21 U/L Normal 14-59 [facility] Comment on above: Performed By: #### T SH, CMP, T7, LIPID #### [facility] [address] [address] [address] Danay De Los Santos Anion gap [Moles/Vol] 13.2 mmol/L Normal Th [facility] Comment on above: Performed By: #### T SH, CMP, T7, LIPID #### [facility] [address] [address] [address] Danay De Los Santos AST [Catalytic activity/Vol] 14 U/L Critically low 15-37 [facility] Comment on above: Performed By: #### T SH, CMP, T7, LIPID #### [facility] [address] [address] [address] Danay De Los Santos Bilirubin [Mass/Vol] 0.2 mg/dL Normal 0.2-1.0 [facility] Comment on above: Performed By: #### T SH, CMP, T7, LIPID #### [facility] [address] [place] [address] Dr. Danay De Los Santos Calcium [Mass/Vol] 8.6 mg/dL Normal 8.5-10.1 [facility] Comment on above: Performed By: #### T SH, CMP, T7, LIPID #### [facility] [address] [place] [address] Dr. Danay De Los Santos Chloride [Moles/Vol] 105 mmol/L Normal 98-107 [facility] Comment on above: Performed By: #### T SH, CMP, T7, LIPID #### [facility] [address] [address] [address] Danay De Los Santos CO2 [Moles/Vol] 27.9 mmol/L Normal 21.0-32.0 [facility] Comment on above: Performed By: #### T SH, CMP, T7, LIPID #### [facility] [address] [place] [address] Dr. Danay De Los Santos Creatinine [Mass/Vol] 1.47 mg/dL Critically high 0.55-1.02 [facility] Comment on above: Performed By: #### T SH, CMP, T7, LIPID #### [facility] [address] [place] [address] Dr. Danay De Los Santos EGFR-AF [place]IZ[place] 43 mL/min/1.73m2 Critically low >=60 [facility] Comment on above: Performed By: #### T SH, CMP, T7, LIPID #### [facility] [address] [address] [address] Danay De Los Santos EGFR-NON AF CITIZEN OF [place] 35 mL/min/1.73m2 Critically low >=60 [facility] Comment on above: Performed By: #### T SH, CMP, T7, LIPID #### [facility] [address] [address] [address] Danay De Los Santos Globulin (S) [Mass/Vol] 3.3 g/dL Normal [facility] Comment on above: Performed By: #### T SH, CMP, T7, LIPID #### [facility] [address] [place] [address] Dr. Danay De Los Santos Glucose [Mass/Vol] 145 mg/dL Critically high 74-106 [facility] Comment on above: Performed By: #### T SH, CMP, T7, LIPID #### [facility] [address] [place] [address] Dr. Danay De Los Santos Potassium [Moles/Vol] 4.1 mmol/L Normal 3.5-5.1 [facility] Comment on above: Performed By: #### T SH, CMP, T7, LIPID #### [facility] [address] [place] [address] Dr. Danay De Los Santos Protein [Mass/Vol] 6.5 g/dL Normal 6.4-8.2 [facility] Comment on above: Performed By: #### T SH, CMP, T7, LIPID #### [facility] [address] [place] [address] Dr. Danay De Los Santos Sodium [Moles/Vol] 142 mmol/L Normal 136-145 [facility] Comment on above: Performed By: #### T SH, CMP, T7, LIPID #### [facility] [address] [address] [address] Danay De Los Santos Urea nitrogen [Mass/Vol] 22.0 mg/dL Critically high 7.0-18.0 [facility] Comment on above: Performed By: #### T SH, CMP, T7, LIPID #### [facility] [address] [address] [address] Danay De Los Santos Urea nitrogen/Creatinine [Mass ratio] 15.0 mg/mg Normal [facility] Comment on above: Performed By: #### T SH, CMP, T7, LIPID #### [facility] [address] [address] [address] Danay De Los Santos PROF CHEM 8 (BAS METB)on Anion gap [Moles/Vol] 12.1 mmol/L Normal [facility] Comment on above: Performed By: #### B MP #### [facility] [address] [place] [address] Dr. Danay De Los Santos Calcium [Mass/Vol] 8.8 mg/dL Normal 8.5-10.1 [facility] Comment on above: Performed By: #### B MP #### [facility] [address] [address] [address] Danay De Los Santos Chloride [Moles/Vol] 103 mmol/L Normal 98-107 [facility] Comment on above: Performed By: #### B MP #### [facility] [address] [address] [address] Danay De Los Santos CO2 [Moles/Vol] 28.6 mmol/L Normal 21.0-32.0 [facility] Comment on above: Performed By: #### B MP #### [facility] [address] [address] [address] Danay De Los Santos Creatinine [Mass/Vol] 2.08 mg/dL Critically high 0.55-1.02 [facility] Comment on above: Performed By: #### B MP #### [facility] [address] [place] [address] Dr. Danay De Los Santos EGFR-AF CITIZEN OF [place] 29 mL/min/1.73m2 Critically low >=60 [facility] Comment on above: Performed By: #### B MP #### [facility] [address] [address] [address] Danay De Los Santos EGFR-NON AF CITIZEN OF [place] 24 mL/min/1.73m2 Critically low >=60 [facility] Comment on above: Performed By: #### B MP #### [facility] [address] [address] [address] Danay De Los Santos Glucose [Mass/Vol] 259 mg/dL Critically high 74-106 [facility] Comment on above: Performed By: #### B MP #### [facility] [address] [address] [address] Danay De Los Santos Potassium [Moles/Vol] 4.7 mmol/L Normal 3.5-5.1 [facility] Comment on above: Performed By: #### B MP #### [facility] [address] [address] [address] Danay De Los Santos Sodium [Moles/Vol] 139 mmol/L Normal 136-145 [facility] Comment on above: Performed By: #### B MP #### [facility] [address] [address] [address] Danay De Los Santos Urea nitrogen [Mass/Vol] 27.0 mg/dL Critically high 7.0-18.0 [facility] Comment on above: Performed By: #### B MP #### [facility] [address] [place] [address] Dr. Danay De Los Santos Urea nitrogen/Creatinine [Mass ratio] 13.0 mg/mg Normal [facility] Comment on above: Performed By: #### B MP #### [facility] [address] [address] [address] Danay De Los Santos INSULINon 12-17-2022 Insulin 11.1 uIU/mL Normal 2.6-24.9 [facility] Comment on above: Performed By: #### I NSULIN #### [facility] [address] [place] [address] Dr. Danay De Los Santos BNPon 12-15-2022 Natriuretic peptide B (Bld) [Mass/Vol] 110.0 pg/mL Normal <=900.0 [facility] Comment on above: Performed By: #### T SH, CMP, T7, LIPID #### [facility] [address] [place] [address] Dr. Danay De Los Santos CBC AUTO DIFFon 12-15-2022 BASO # 0.1 103/ul Normal 0.0-0.1 [facility] Comment on above: Performed By: #### T SH, CMP, T7, LIPID #### [facility] [address] [place] [address] Dr. Danay De Los Santos Basophils/100 WBC (Bld) 0.5 % Normal 0.2-2.0 [facility] Comment on above: Performed By: #### T SH, CMP, T7, LIPID #### [facility] [address] [place] [address] Dr. Danay De Los Santos EO # 0.7 103/ul Normal 0.0-0.7 [facility] Comment on above: Performed By: #### T SH, CMP, T7, LIPID #### [facility] [address] [place] [address] Dr. Danay De Los Santos Eosinophils/100 WBC (Bld) 6.0 % Normal 0.9-7.0 [facility] Comment on above: Performed By: #### T SH, CMP, T7, LIPID #### [facility] [address] [place] [address] Dr. Danay De Los Santos Erythrocyte distribution width (RBC) [Ratio] 15.6 % Critically high 11.0-15.0 [facility] Comment on above: Performed By: #### T SH, CMP, T7, LIPID #### [facility] [address] [place] [address] Dr. Danay De Los Santos Hematocrit (Bld) [Volume fraction] 40.2 % Normal 36.0-48.0 [facility] Comment on above: Performed By: #### T SH, CMP, T7, LIPID #### [facility] [address] [place] [address] Dr. Danay De Los Santos Hemoglobin (Bld) [Mass/Vol] 12.6 g/dL Normal 12.0-16.0 [facility] Comment on above: Performed By: #### T SH, CMP, T7, LIPID #### [facility] [address] [place] [address] Dr. Danay De Los Santos IG # 0.06 10e3/ul Critically high 0.00-0.03 [facility] Comment on above: Performed By: #### T SH, CMP, T7, LIPID #### [facility] [address] [place] [address] Dr. Danay De Los Santos IG % 0.5 % Normal 0.0-0.5 [facility] Comment on above: Performed By: #### T SH, CMP, T7, LIPID #### [facility] [address] [place] [address] Dr. Danay De Los Santos LYMPH # 3.2 103/ul Normal 1.2-3.8 [facility] Comment on above: Performed By: #### T SH, CMP, T7, LIPID #### [facility] [address] [place] [address] Dr. Danay De Los Santos Lymphocytes/100 WBC (Bld) 28.9 % Normal 20.5-60.0 [facility] Comment on above: Performed By: #### T SH, CMP, T7, LIPID #### [facility] [address] [place] [address] Dr. Danay De Los Santos MANUAL DIFF REQ NO Normal [facility] Comment on above: Performed By: #### T SH, CMP, T7, LIPID #### [facility] [address] [place] [address] Dr. Danay De Los Santos MCH (RBC) [Entitic mass] 27.3 pg Normal 26.7-34.0 [facility] Comment on above: Performed By: #### T SH, CMP, T7, LIPID #### [facility] [address] [place] [address] Dr. Danay De Los Santos MCHC (RBC) [Mass/Vol] 31.3 g/dL Normal 29.9-35.2 [facility] Comment on above: Performed By: #### T SH, CMP, T7, LIPID #### [facility] [address] [place] [address] Dr. Danay De Los Santos MCV (RBC) [Entitic vol] 87.2 fL Normal 81.0-99.0 [facility] Comment on above: Performed By: #### T SH, CMP, T7, LIPID #### [facility] [address] [place] [address] Dr. Danay De Los Santos MONO # 0.6 103/ul Normal 0.3-0.8 [facility] Comment on above: Performed By: #### T SH, CMP, T7, LIPID #### [facility] [address] [place] [address] Dr. Danay De Los Santos Monocytes/100 WBC (Bld) 5.7 % Normal 1.7-12.0 [facility] Comment on above: Performed By: #### T SH, CMP, T7, LIPID #### [facility] [address] [place] [address] Dr. Danay De Los Santos NEUT # 6.4 103/ul Normal 1.4-6.5 [facility] Comment on above: Performed By: #### T SH, CMP, T7, LIPID #### [facility] [address] [place] [address] Dr. Danay De Los Santos Neutrophils/100 WBC (Bld) 58.4 % Normal 43.0-75.0 [facility] Comment on above: Performed By: #### T SH, CMP, T7, LIPID #### [facility] [address] [place] [address] Dr. Danay De Los Santos Platelet mean volume (Bld) [Entitic vol] 10.6 fL Normal 9.5-13.5 [facility] Comment on above: Performed By: #### T SH, CMP, T7, LIPID #### [facility] [address] [place] [address] Dr. Danay De Los Santos PLT 251 103/ul Normal 150-450 [facility] Comment on above: Performed By: #### T SH, CMP, T7, LIPID #### [facility] [address] [place] [address] Dr. Danay De Los Santos RBC 4.61 106/ul Normal 4.20-5.40 [facility] Comment on above: Performed By: #### T SH, CMP, T7, LIPID #### [facility] [address] [place] [address] Dr. Danay De Los Santos WBC 10.9 103/ul Normal 4.0-11.0 [facility] Comment on above: Performed By: #### T SH, CMP, T7, LIPID #### [facility] [address] [place] [address] Dr. Danay De Los Santos FREE THYROXINE INDEX T7on FTI 2.87 Normal 1.30-4.50 [facility] Comment on above: Performed By: #### T SH, CMP, T7, LIPID #### [facility] [address] [place] [address] Dr. Danay De Los Santos T3U 35.0 % Normal 30.0-39.0 [facility] Comment on above: Performed By: #### T SH, CMP, T7, LIPID #### [facility] [address] [place] [address] Dr. Danay De Los Santos T4 [Mass/Vol] 8.20 ug/dL Normal 4.80-13.90 [facility] Comment on above: Performed By: #### T SH, CMP, T7, LIPID #### [facility] [address] [place] [address] Dr. Danay De Los Santos GLYCOHEMOGLOBIN A1Con 2022 ADA RECOMMENDATION SEE BELOW Normal [facility] Comment on above: Result Comment: ADA RECOMMENDED LIMIT 4.0 - 6.0 ADA THERAPEUTIC TARGET < 7.0 ACTION SUGGESTED > 7.0 Performed By: #### A 1C #### [facility] [address] [place] [address] Dr. Danay De Los Santos Glucose [Mass/Vol] 203 mg/dL Normal [facility] Comment on above: Performed By: #### A 1C #### [facility] [address] [place] [address] Dr. Danay De Los Santos HbA1c (Bld) [Mass fraction] 8.7 % Critically high 4.5-6.2 [facility] Comment on above: Performed By: #### A 1C #### [facility] [address] [place] [address] Dr. Danay De Los Santos IRONon 12-15-2022 Iron [Mass/Vol] 39.0 ug/dL Critically low 50.0-170.0 [facility] Comment on above: Performed By: #### T SH, CMP, T7, LIPID #### [facility] [address] [address] [address] Danay De Los Santos LIPID PROFILEon 12-15-2022 CHOL-HDL RATIO NORM SEE BELOW Normal [facility] Comment on above: Result Comment: 3.3 - 4.4 LOW RISK 4.4 - 7.1 AVERAGE RISK 7.1 - 11.0 MODERATE RISK >11.0 HIGH RISK Performed By: #### T SH, CMP, T7, LIPID #### [facility] [address] [address] [address] Danay De Los Santos Cholesterol [Mass/Vol] 123 mg/dL Normal <=200 [facility] Comment on above: Performed By: #### T SH, CMP, T7, LIPID #### [facility] [address] [address] [address] Danay De Los Santos Cholesterol in HDL [Mass/Vol] 40 mg/dL Normal 40-60 [facility] Comment on above: Performed By: #### T SH, CMP, T7, LIPID #### [facility] [address] [address] [address] Danay De Los Santos Cholesterol in LDL [Mass/Vol] 70.4 mg/dL Normal [facility] Comment on above: Performed By: #### T SH, CMP, T7, LIPID #### [facility] [address] [address] [address] Danay De Los Santos Cholesterol.total/Vivian sterol in HDL [Mass ratio] 3.1 {ratio} Normal [facility] Comment on above: Performed By: #### T SH, CMP, T7, LIPID #### [facility] [address] [address] [address] Danay De Los Santos HDL NORMAL > or = 60 mg/dl - LO W CARDIOVASCULAR RISK <40 mg/dl - HIGH CARDIOVASCULAR RISK Normal [facility] Comment on above: Performed By: #### T SH, CMP, T7, LIPID #### [facility] [address] [address] [address] Danay De Los Santos LDL CALC NORMAL SEE BELOW Normal [facility] Comment on above: Result Comment: <100 mg/dl OPTIMAL 100 - 129 mg/dl NEAR OR ABOVE OPTIMAL 130 - 159 mg/dl BORDERLINE HIGH 160 - 189 mg/dl HIGH >190 mg/dl VERY HIGH Performed By: #### T SH, CMP, T7, LIPID #### [facility] [address] [address] [address] Danay De Los Santos Triglyceride [Mass/Vol] 63 mg/dL Normal <=150 [facility] Comment on above: Performed By: #### T SH, CMP, T7, LIPID #### [facility] [address] [address] [address] Danay De Los Santos VLDL CALC 12.6 mg/dL Normal [facility] Comment on above: Performed By: #### T SH, CMP, T7, LIPID #### [facility] [address] [place] [address] Dr. Danay De Los Santos PROF 14(COMP METB)on 023 Albumin [Mass/Vol] 3.3 g/dL Critically low 3.4-5.0 [facility] Comment on above: Performed By: #### T SH, CMP, T7, LIPID #### [facility] [address] [address] [address] Danay De Los Santos Albumin/Globulin [Mass ratio] 1.0 {ratio} Normal [facility] Comment on above: Performed By: #### T SH, CMP, T7, LIPID #### [facility] [address] [address] [address] Danay De Los Santos ALP [Catalytic activity/Vol] 94 U/L Normal 46-116 [facility] Comment on above: Performed By: #### T SH, CMP, T7, LIPID #### [facility] [address] [address] [address] Danay De Los Santos ALT [Catalytic activity/Vol] 17 U/L Normal 14-59 [facility] Comment on above: Performed By: #### T SH, CMP, T7, LIPID #### [facility] [address] [address] [address] Danay De Los Santos Anion gap [Moles/Vol] 14.3 mmol/L Normal [facility] Comment on above: Performed By: #### T SH, CMP, T7, LIPID #### [facility] [address] [place] [address] Dr. Danay De Los Santos AST [Catalytic activity/Vol] 11 U/L Critically low 15-37 [facility] Comment on above: Performed By: #### T SH, CMP, T7, LIPID #### [facility] [address] [place] [address] Dr. Danay De Los Santos Bilirubin [Mass/Vol] 0.3 mg/dL Normal 0.2-1.0 [facility] Comment on above: Performed By: #### T SH, CMP, T7, LIPID #### [facility] [address] [place] [address] Dr. Danay De Los Santos Calcium [Mass/Vol] 9.1 mg/dL Normal 8.5-10.1 [facility] Comment on above: Performed By: #### T SH, CMP, T7, LIPID #### [facility] [address] [place] [address] Dr. Danay De Los Santos Chloride [Moles/Vol] 105 mmol/L Normal 98-107 [facility] Comment on above: Performed By: #### T SH, CMP, T7, LIPID #### [facility] [address] [place] [address] Dr. Danay De Los Santos CO2 [Moles/Vol] 29.3 mmol/L Normal 21.0-32.0 [facility] Comment on above: Performed By: #### T SH, CMP, T7, LIPID #### [facility] [address] [place] [address] Dr. Danay De Los Santos Creatinine [Mass/Vol] 1.53 mg/dL Critically high 0.55-1.02 [facility] Comment on above: Performed By: #### T SH, CMP, T7, LIPID #### [facility] [address] [place] [address] Dr. Danay De Los Santos EGFR-AF [place] 41 mL/min/1.73m2 Critically low >=60 [facility] Comment on above: Performed By: #### T SH, CMP, T7, LIPID #### [facility] [address] [address] [address] Danay De Los Santos EGFR-NON AF CITIZEN OF [place] 34 mL/min/1.73m2 Critically low >=60 [facility] Comment on above: Performed By: #### T SH, CMP, T7, LIPID #### [facility] [address] [address] [address] Danay De Los Santos Globulin (S) [Mass/Vol] 3.4 g/dL Normal [facility] Comment on above: Performed By: #### T SH, CMP, T7, LIPID #### [facility] [address] [address] [address] Danay De Los Santos Glucose [Mass/Vol] 192 mg/dL Critically high 74-106 [facility] Comment on above: Performed By: #### T SH, CMP, T7, LIPID #### [facility] [address] [place] [address] Dr. Danay De Los Santos Potassium [Moles/Vol] 4.6 mmol/L Normal 3.5-5.1 [facility] Comment on above: Performed By: #### T SH, CMP, T7, LIPID #### [facility] [address] [address] [address] Danay De Los Santos Protein [Mass/Vol] 6.7 g/dL Normal 6.4-8.2 [facility] Comment on above: Performed By: #### T SH, CMP, T7, LIPID #### [facility] [address] [address] [address] Danay De Los Santos Sodium [Moles/Vol] 144 mmol/L Normal 136-145 [facility] Comment on above: Performed By: #### T SH, CMP, T7, LIPID #### [facility] [address] [place] [address] Dr. Danay De Los Santos Urea nitrogen [Mass/Vol] 25.0 mg/dL Critically high 7.0-18.0 [facility] Comment on above: Performed By: #### T SH, CMP, T7, LIPID #### [facility] [address] [place] [address] Dr. Danay De Los Santos Urea nitrogen/Creatinine [Mass ratio] 16.3 mg/mg Normal [facility] Comment on above: Performed By: #### T SH, CMP, T7, LIPID #### [facility] [address] [address] [address] Danay De Los Santos TSHon 12-15-2022 TSH 2.181 uIU/mL Normal 0.358-3.740 [facility] Comment on above: Performed By: #### T SH, CMP, T7, LIPID #### [facility] [address] [address] [address] Danay De Los Santos VITAMIN D 25 OHon 12-15-2022 VIT D 25-OH 32.9 ng/mL Normal [facility] Comment on above: Performed By: #### T SH, CMP, T7, LIPID #### [facility] [address] [address] [address] Danay De Los Santos VIT D RANGES SEE BELOW Normal [facility] Comment on above: Result Comment: <20 ng/mL Vit D deficient 20 - <30 ng/mL Vit D insufficient 30 - 100 ng/mL Vit D sufficient >100 ng/mL Potential Toxicity Performed By: #### T SH, CMP, T7, LIPID #### [facility] [address] [place] [address] Dr. Danay De Los Santos US ROEL [...] MORIAH MORRISON Date: 2022-12-01 12:54 Normal [facility] XR Hand Complete Left*on XR Hand Complete Left* CLINICAL HISTORY: Fall with left hand stiffness. COMPARISON: None. RESULT: No distinct acute fracture. No dislocation. Underlying decreased bone mineral density. Mild to moderate scattered degenerative changes. Soft tissue edema. IMPRESSION: No acute osseous findings radiographically. Report reported and signed by Home Lockwood on 08/24/2022 1108 Normal [facility] XR Spine Cervical Complete*o n [...] by Home Lockwood on 08/24/2022 1109 Normal [facility] XR HAND RIMA MIN 3Von [...] by: BRIANNA KU Date: 2022-08-06 20:28 Normal [facility] XR HIP RT 2 3V W [...] by: BRIANNA KU Date: 2022-08-06 20:29 Normal [facility] XR SHOULDER RT 2V or >on [...] BRIANNA KU Date: 2022-08-06 20:21 Normal [facility] XR Foot Complete Left*on XR Foot Complete Left* COMPARISON: None available HISTORY: Second and third digit pain after a fall TECHNIQUE: AP, lateral and oblique views of the foot obtained. FINDINGS: No acute fracture or dislocation. Joint spaces are preserved. Soft tissues are within normal limits. IMPRESSION: No acute osseous abnormality. Report reported and signed by Drew Looney on 08/04/2022 1044 Normal [facility] XR Knee Complete Left*on XR Knee Complete [...] by Drew Looney on 08/04/2022 1046 Normal [facility] MRI BRAIN WO CONon MRI BRAIN WO [...] BRIANNA GREEN Date: 2022-07-02 14:48 Normal [facility] INSULINon 05-28-2022 Insulin 13.4 uIU/mL Normal 2.6-24.9 [facility] Comment on above: Performed By: #### I NSULIN #### [facility] [address] [place] [address] Dr. Danay De Los Santos CBC AUTO DIFFon 05-26-2022 BASO # 0.1 103/ul Normal 0.0-0.1 [facility] Comment on above: Performed By: #### C BC #### [facility] [address] [place] [address] Dr. Danay De Los Santos Basophils/100 WBC (Bld) 0.8 % Normal 0.2-2.0 [facility] Comment on above: Performed By: #### C BC #### [facility] [address] [place] [address] Dr. Danay De Los Santos EO # 0.6 103/ul Normal 0.0-0.7 [facility] Comment on above: Performed By: #### C BC #### [facility] [address] [place] [address] Dr. Danay eD Los Santos Eosinophils/100 WBC (Bld) 5.1 % Normal 0.9-7.0 [facility] Comment on above: Performed By: #### C BC #### [facility] [address] [place] [address] Dr. Danay De Los Santos Erythrocyte distribution width (RBC) [Ratio] 14.7 % Normal 11.0-15.0 [facility] Comment on above: Performed By: #### C BC #### [facility] [address] [place] [address] Dr. Danay De Los Santos Hematocrit (Bld) [Volume fraction] 37.8 % Normal 36.0-48.0 [facility] Comment on above: Performed By: #### C BC #### [facility] [address] [place] [address] Dr. Danay De Los Santos Hemoglobin (Bld) [Mass/Vol] 12.3 g/dL Normal 12.0-16.0 [facility] Comment on above: Performed By: #### C BC #### [facility] [address] [place] [address] Dr. Danay De Los Santos IG # 0.05 10e3/ul Critically high 0.00-0.03 [facility] Comment on above: Performed By: #### C BC #### [facility] [address] [place] [address] Dr. Danay De Los Santos IG % 0.5 % Normal 0.0-0.5 [facility] Comment on above: Performed By: #### C BC #### [facility] [address] [place] [address] Dr. Danay De Los Santos LYMPH # 2.1 103/ul Normal 1.2-3.8 [facility] Comment on above: Performed By: #### C BC #### [facility] [address] [place] [address] Dr. Danay De Los Santos Lymphocytes/100 WBC (Bld) 19.1 % Critically low 20.5-60.0 [facility] Comment on above: Performed By: #### C BC #### [facility] [address] [place] [address] Dr. Danay De Los Santos MANUAL DIFF REQ NO Normal [facility] Comment on above: Performed By: #### C BC #### [facility] [address] [place] [address] Dr. Danay De Los Santos MCH (RBC) [Entitic mass] 30.8 pg Normal 26.7-34.0 [facility] Comment on above: Performed By: #### C BC #### [facility] [address] [place] [address] Dr. Danay De Los Santos MCHC (RBC) [Mass/Vol] 32.5 g/dL Normal 29.9-35.2 [facility] Comment on above: Performed By: #### C BC #### [facility] [address] [place] [address] Dr. Danay De Los Santos MCV (RBC) [Entitic vol] 94.5 fL Normal 81.0-99.0 [facility] Comment on above: Performed By: #### C BC #### [facility] [address] [place] [address] Dr. Danay De Los Santos MONO # 0.6 103/ul Normal 0.3-0.8 [facility] Comment on above: Performed By: #### C BC #### [facility] [address] [address] [address] Danay De Los Santos Monocytes/100 WBC (Bld) 5.1 % Normal 1.7-12.0 [facility] Comment on above: Performed By: #### C BC #### [facility] [address] [address] [address] Danay De Los Santos NEUT # 7.5 103/ul Critically high 1.4-6.5 [facility] Comment on above: Performed By: #### C BC #### [facility] [address] [place] [address] Dr. Danay De Los Santos Neutrophils/100 WBC (Bld) 69.4 % Normal 43.0-75.0 [facility] Comment on above: Performed By: #### C BC #### [facility] [address] [place] [address] Dr. Danay De Los Santos Platelet mean volume (Bld) [Entitic vol] 10.9 fL Normal 9.5-13.5 [facility] Comment on above: Performed By: #### C BC #### [facility] [address] [place] [address] Dr. Danay De Los Santos PLT 235 103/ul Normal 150-450 [facility] Comment on above: Performed By: #### C BC #### [facility] [address] [place] [address] Dr. Danay De Los Santos RBC 4.00 106/ul Critically low 4.20-5.40 [facility] Comment on above: Performed By: #### C BC #### [facility] [address] [place] [address] Dr. Danay De Los Santos WBC 10.8 103/ul Normal 4.0-11.0 [facility] Comment on above: Performed By: #### C BC #### [facility] [address] [place] [address] Dr. Danay De Los Santos FREE THYROXINE INDEX T7on FTI 1.83 Normal 1.30-4.50 [facility] Comment on above: Performed By: #### T SH, CMP, T7, LIPID #### [facility] [address] [address] [address] Danay De Los Santos T3U 31.0 % Normal 30.0-39.0 [facility] Comment on above: Performed By: #### T SH, CMP, T7, LIPID #### [facility] [address] [address] [address] Danay De Los Santos T4 [Mass/Vol] 5.90 ug/dL Normal 4.80-13.90 [facility] Comment on above: Performed By: #### T SH, CMP, T7, LIPID #### [facility] [address] [address] [address] Danay De Los Santos GLYCOHEMOGLOBIN A1Con 2021 ADA RECOMMENDATION SEE BELOW Normal [facility] Comment on above: Result Comment: ADA RECOMMENDED LIMIT 4.0 - 6.0 ADA THERAPEUTIC TARGET < 7.0 ACTION SUGGESTED > 7.0 Performed By: #### A 1C #### [facility] [address] [address] [address] Danay De Los Santos Glucose [Mass/Vol] 186 mg/dL Normal [facility] [place] [facility] Comment on above: Performed By: #### A 1C #### [facility] [address] [address] [address] Danay De Los Santos HbA1c (Bld) [Mass fraction] 8.1 % Critically high 4.5-6.2 [facility] Comment on above: Performed By: #### A 1C #### [facility] [address] [address] [address] Danay De oLs Santos IRONon 05-26-2022 Iron [Mass/Vol] 61.0 ug/dL Normal 50.0-170.0 [facility] Comment on above: Performed By: #### T SH, CMP, T7, LIPID #### [facility] [address] [address] [address] Danay De Los Santos LIPID PROFILEon 05-26-2022 CHOL-HDL RATIO NORM SEE BELOW Normal [facility] Comment on above: Result Comment: 3.3 - 4.4 LOW RISK 4.4 - 7.1 AVERAGE RISK 7.1 - 11.0 MODERATE RISK >11.0 HIGH RISK Performed By: #### T SH, CMP, T7, LIPID #### [facility] [address] [address] [address] Danay De Los Santos Cholesterol [Mass/Vol] 130 mg/dL Normal <=200 [facility] Comment on above: Performed By: #### T SH, CMP, T7, LIPID #### [facility] [address] [address] [address] Danay De Los Santos Cholesterol in HDL [Mass/Vol] 40 mg/dL Normal 40-60 [facility] Comment on above: Performed By: #### T SH, CMP, T7, LIPID #### [facility] [address] [place] [address] Dr. Danay De Los Santos Cholesterol in LDL [Mass/Vol] 75.8 mg/dL Normal [facility] Comment on above: Performed By: #### T SH, CMP, T7, LIPID #### [facility] [address] [place] [address] Dr. Danay De Los Santos Cholesterol.total/Vivian sterol in HDL [Mass ratio] 3.3 {ratio} Normal [facility] Comment on above: Performed By: #### T SH, CMP, T7, LIPID #### [facility] [address] [place] [address] Dr. Danay De Los Santos HDL NORMAL > or = 60 mg/dl - LO W CARDIOVASCULAR RISK <40 mg/dl - HIGH CARDIOVASCULAR RISK Normal [facility] Comment on above: Performed By: #### T SH, CMP, T7, LIPID #### [facility] [address] [place] [address] Dr. Danay De Los Santos LDL CALC NORMAL SEE BELOW Normal [facility] Comment on above: Result Comment: <100 mg/dl OPTIMAL 100 - 129 mg/dl NEAR OR ABOVE OPTIMAL 130 - 159 mg/dl BORDERLINE HIGH 160 - 189 mg/dl HIGH >190 mg/dl VERY HIGH Performed By: #### T SH, CMP, T7, LIPID #### [facility] [address] [place] [address] Dr. Danay De Los Santos Triglyceride [Mass/Vol] 71 mg/dL Normal <=150 [facility] Comment on above: Performed By: #### T SH, CMP, T7, LIPID #### [facility] [address] [address] [address] Danay De Los Santos VLDL CALC 14.2 mg/dL Normal [facility] Comment on above: Performed By: #### T SH, CMP, T7, LIPID #### [facility] [address] [address] [address] Danay De Los Santos PROF 14(COMP METB)on 022 Albumin [Mass/Vol] 3.4 g/dL Normal 3.4-5.0 [facility] Comment on above: Performed By: #### T SH, CMP, T7, LIPID #### [facility] [address] [place] [address] Dr. Danay De Los Santos Albumin/Globulin [Mass ratio] 1.0 {ratio} Normal [facility] Comment on above: Performed By: #### T SH, CMP, T7, LIPID #### [facility] [address] [place] [address] Dr. Danay De Los Santos ALP [Catalytic activity/Vol] 92 U/L Normal 46-116 [facility] Comment on above: Performed By: #### T SH, CMP, T7, LIPID #### [facility] [address] [place] [address] Dr. Danay De Los Santos ALT [Catalytic activity/Vol] 15 U/L Normal 14-59 [facility] Comment on above: Performed By: #### T SH, CMP, T7, LIPID #### [facility] [address] [place] [address] Dr. Danay De Los Santos Anion gap [Moles/Vol] 10.4 mmol/L Normal [facility] Comment on above: Performed By: #### T SH, CMP, T7, LIPID #### [facility] [address] [place] [address] Dr. Danay De Los Santos AST [Catalytic activity/Vol] 12 U/L Critically low 15-37 [facility] Comment on above: Performed By: #### T SH, CMP, T7, LIPID #### [facility] [address] [place] [address] Dr. Danay De Los Santos Bilirubin [Mass/Vol] 0.4 mg/dL Normal 0.2-1.0 [facility] Comment on above: Performed By: #### T SH, CMP, T7, LIPID #### [facility] [address] [place] [address] Dr. Danay De Los aSntos Calcium [Mass/Vol] 8.7 mg/dL Normal 8.5-10.1 [facility] Comment on above: Performed By: #### T SH, CMP, T7, LIPID #### [facility] [address] [place] [address] Dr. Danay De Los Santos Chloride [Moles/Vol] 107 mmol/L Normal 98-107 [facility] Comment on above: Performed By: #### T SH, CMP, T7, LIPID #### [facility] [address] [place] [address] Dr. Danay De Los Santos CO2 [Moles/Vol] 28.9 mmol/L Normal 21.0-32.0 [facility] Comment on above: Performed By: #### T SH, CMP, T7, LIPID #### [facility] [address] [place] [address] Dr. Danay De Los Santos Creatinine [Mass/Vol] 1.18 mg/dL Critically high 0.55-1.02 [facility] Comment on above: Performed By: #### T SH, CMP, T7, LIPID #### [facility] [address] [place] [address] Dr. Danay De Los Santos EGFR-AF [place]IZ[place] 55 mL/min/1.73m2 Critically low >=60 [facility] Comment on above: Performed By: #### T SH, CMP, T7, LIPID #### [facility] [address] [place] [address] Dr. Danay De Los Santos EGFR-NON AF CITIZEN OF [place] 46 mL/min/1.73m2 Critically low >=60 [facility] Comment on above: Performed By: #### T SH, CMP, T7, LIPID #### [facility] [address] [place] [address] Dr. Danay De Los Santos Globulin (S) [Mass/Vol] 3.3 g/dL Normal [facility] Comment on above: Performed By: #### T SH, CMP, T7, LIPID #### [facility] [address] [address] [address] Danay De Los Santos Glucose [Mass/Vol] 153 mg/dL Critically high 74-106 [facility] Comment on above: Performed By: #### T SH, CMP, T7, LIPID #### [facility] [address] [address] [address] Danay De Los Santos Potassium [Moles/Vol] 4.3 mmol/L Normal 3.5-5.1 [facility] Comment on above: Performed By: #### T SH, CMP, T7, LIPID #### [facility] [address] [place] [address] Dr. Danay De Los Santos Protein [Mass/Vol] 6.7 g/dL Normal 6.4-8.2 [facility] Comment on above: Performed By: #### T SH, CMP, T7, LIPID #### [facility] [address] [address] [address] Danay De Los Santos Sodium [Moles/Vol] 142 mmol/L Normal 136-145 [facility] Comment on above: Performed By: #### T SH, CMP, T7, LIPID #### [facility] [address] [address] [address] Danay De Los Santos Urea nitrogen [Mass/Vol] 16.0 mg/dL Normal 7.0-18.0 [facility] Comment on above: Performed By: #### T SH, CMP, T7, LIPID #### [facility] [address] [place] [address] Dr. Danay De Los Santos Urea nitrogen/Creatinine [Mass ratio] 13.6 mg/mg Normal [facility] Comment on above: Performed By: #### T SH, CMP, T7, LIPID #### [facility] [address] [place] [address] Dr. Danay De Los Santos TSHon 05-26-2022 TSH 1.443 uIU/mL Normal 0.358-3.740 [facility] Comment on above: Performed By: #### T SH, CMP, T7, LIPID #### [facility] [address] [place], [place] [address] Dr. Danay De Los Santos XR DEXA [...] by: BECKY AVILEZ Date: 2022-04-05 12:11 Normal [facility] GLYCOHEMOGLOBIN A1Con 2021 ADA RECOMMENDATION SEE BELOW Normal [facility] Comment on above: Result Comment: ADA RECOMMENDED LIMIT 4.0 - 6.0 ADA THERAPEUTIC TARGET < 7.0 ACTION SUGGESTED > 7.0 Performed By: #### T SH, CMP, T7, LIPID #### [facility] [address] [place], [place] [address] Dr. Danay De Los Santos Glucose [Mass/Vol] 174 mg/dL Normal [facility] Comment on above: Performed By: #### T SH, CMP, T7, LIPID #### [facility] [address] [place], [place] [address] Dr. Danay De Los Santos HbA1c (Bld) [Mass fraction] 7.7 % Critically high 4.5-6.2 [facility] Comment on above: Performed By: #### T SH, CMP, T7, LIPID #### [facility] [address] [place], [place] [address] Dr. Danay De Los Santos MG MAMM SCREEN 3D RIMA CADon 02-14-2022 MG MAMM SCREEN 3D RIMA CAD Patient: VIRGEN GONZALES Exam Date: 02/14/2022 : 1955 Gender:F Ordering : AGGIE DAVIS [facility] Admission #: [id number] Family : Order #: [id number] CLICK HERE TO VIEW EXAM RADIOLOGY REPORT [...] unknown cancer at age 24. LOCATION: [facility] BREAST COMPOSITION: Heterogeneously dense,which may obscure [...] M.D. on 02/14/2022 at 16:12 Normal [facility] CARDIAC STRESS/REST INJE CTIONon 01-27-2020 [facility] CARDIAC STRESS/REST INJECTION Patient Name: VIRGEN GONZALES STUDY: MYOCARDIAL PERFUSION STRESS TEST WITH LEXISCAN Performing facility: [facility], [address] [place] [address], [address], [address] Provider: Catarino Koroma MD, FACC PCP: Dr. Nicola Granger Supervising provider: Catarino Koroma MD, FACC INDICATION: Abnormal EKG; Pre-operative risk assessment for Knee surgery scheduled at unknown on unknown. RBBB HISTORY: Gender: F; Age: 64 y/o ; Height: 152.4 cm; Weight: 77.3335623 kg. High Cholesterol; Abnormal EKG; Diabetes; Family HX CAD; HTN; Smoking COMPARISON: No comparison. ACCESSION NUMBER(S): [id number]; [id number]; [id number] ORDERING CLINICIAN: CATARINO KOROMA TECHNIQUE: ONE DAY [...] comparison. Electronically signed by: CATARINO KOROMA MD [facility] Vital Signs Date Time Vital Sign Value Performing Clinician Swapnil ontiveros 09-21-2024 08:22-0500 Body height 152.4 cm Aggie CHICAS Work Phone: [facility] 09-21-2024 08:22-0500 Body mass index (BMI) [Ratio] 40.8 kg/m2 Aggie Susan [employer] Work Phone: [facility] 09-21-2024 08:22-0500 Body weight 94.8 kg Aggie Davis [employer] Work Phone: [facility] 09-21-2024 08:14-0500 Body temperature 97.5 [degF] Aggie Davis [employer] Work Phone: [facility] 09-21-2024 08:14-0500 Diastolic blood pressure 75 mm[Hg] Aggie Davis [employer] Work Phone: [facility] 09-21-2024 08:14-0500 Heart rate 86 /min Aggie Davis [employer] Work Phone: [facility] 09-21-2024 08:14-0500 Respiratory rate 20 /min Aggie Davis [employer] Work Phone: [facility] 09-21-2024 08:14-0500 Systolic blood pressure 121 mm[Hg] Aggie Davis [employer] Work Phone: [facility] 09-07-2024 09:09-0500 Blood Pressure Location Kang BOSS [facility] 09-07-2024 09:09-0500 Diastolic blood pressure 74 mm[Hg] Kang [facility]OSS [facility] 09-07-2024 09:09-0500 Heart rate 70 /min Kang [facility] 09-07-2024 09:09-0500 Respiratory rate 18 /min Kang [facility] 09-07-2024 09:09-0500 Systolic blood pressure 112 mm[Hg] Kang [facility]OSS [facility] 08-31-2024 13:49-0500 Body height 152.4 cm Aggie Mccormackmer [employer] Work Phone: [facility] 08-31-2024 13:49-0500 Body mass index (BMI) [Ratio] 39.9 kg/m2 Aggie Susan [employer] Work Phone: [facility] 08-31-2024 13:49-0500 Body temperature 97.8 [degF] Aggie Susan [employer] Work Phone: [facility] 08-31-2024 13:49-0500 Body weight 92.75 kg Aggie Susan [employer] Work Phone: [facility] 08-31-2024 13:49-0500 Diastolic blood pressure 71 mm[Hg] Aggie Susan [employer] Work Phone: [facility] 08-31-2024 13:49-0500 Heart rate 68 /min Aggie Davis [employer] Work Phone: [facility] 08-31-2024 13:49-0500 Respiratory rate 18 /min Aggie Mccormackmer [employer] Work Phone: [facility] 08-31-2024 13:49-0500 SaO2% (BldA) [Mass fraction] 98 % Aggie Mccormackmer [employer] Work Phone: [facility] 08-31-2024 13:49-0500 Systolic blood pressure 106 mm[Hg] Aggie Davis [employer] Work Phone: [facility] 08-31-2024 10:24-0500 Body height 152.4 cm Brice Estrella DO Work Phone: [facility] 08-31-2024 10:24-0500 Body mass index (BMI) [Ratio] 40.43 kg/m2 Brice Estrella DO Work Phone: [facility] 08-31-2024 10:24-0500 Body weight 93.89 kg Brice Estrella DO Work Phone: [facility] 08-20-2024 09:05-0500 Body mass index (BMI) [Ratio] 40.43 kg/m2 Christopher Estrella DO Work Phone: [facility] 08-20-2024 09:05-0500 Body weight 93.89 kg Christopher Estrella DO Work Phone: [facility] 08-20-2024 09:05-0500 Diastolic blood pressure 80 mm[Hg] Christopher Setrella DO Work Phone: [facility] 08-20-2024 09:05-0500 Heart rate 80 /min Christopher Estrella DO Work Phone: [facility] 08-20-2024 09:05-0500 SaO2% (BldA) [Mass fraction] 95 % Christopher Estrella DO Work Phone: [facility] 08-20-2024 09:05-0500 Systolic blood pressure 144 mm[Hg] Christopher Estrella DO Work Phone: [facility] 08-19-2024 10:18-0500 Body height 152.4 cm Aggie Davis [employer] Work Phone: [facility] 08-19-2024 10:18-0500 Body mass index (BMI) [Ratio] 40.8 kg/m2 Aggie Davis [employer] Work Phone: [facility] 08-19-2024 10:18-0500 Body weight 94.8 kg Aggie Davis [employer] Work Phone: [facility] 08-19-2024 09:13-0500 Body temperature 98.2 [degF] Aggie Davis [employer] Work Phone: [facility] 08-19-2024 09:13-0500 Diastolic blood pressure 44 mm[Hg] Aggie Davis [employer] Work Phone: [facility] 08-19-2024 09:13-0500 Heart rate 87 /min Aggie Davis [employer] Work Phone: [facility] 08-19-2024 09:13-0500 Respiratory rate 20 /min Aggie Daivs [employer] Work Phone: [facility] 08-19-2024 09:13-0500 Systolic blood pressure 100 mm[Hg] Aggie Davis [employer] Work Phone: [facility] 08-18-2024 10:31-0500 Body height 152.4 cm Mathieu Naqvi MD Work Phone: [facility] 08-18-2024 10:31-0500 Body mass index (BMI) [Ratio] 40.82 kg/m2 Mathieu Naqvi MD Work Phone: [facility] 08-18-2024 10:31-0500 Body weight 94.8 kg Mathieu Naqvi MD Work Phone: [facility] 07-07-2024 21:52-0500 Body temperature 97.88 [degF] Kaylinn Dokken [facility] 07-07-2024 21:52-0500 Diastolic blood pressure 76 mm[Hg] Kaylinn Dokken [facility] 07-07-2024 21:52-0500 Heart rate 72 /min Kaylinn Dokken [facility] 07-07-2024 21:52-0500 Mean blood pressure 86 mm[Hg] Kaylinn Dokken [facility] 07-07-2024 21:52-0500 Respiratory rate 19 /min Kaylinn Dokken [facility] 07-07-2024 21:52-0500 SaO2% (BldA) [Mass fraction] 95 % Kaylinn Dokken [facility] 07-07-2024 21:52-0500 Systolic blood pressure 105 mm[Hg] Kaylinn Dokken [facility] 07-07-2024 20:57-0500 Diastolic blood pressure 77 mm[Hg] Kaylinn Dokken [facility] 07-07-2024 20:57-0500 Heart rate 61 /min Kaylinn Dokken [facility] 07-07-2024 20:57-0500 Mean blood pressure 102 mm[Hg] Kaylinn Dokken [facility] 07-07-2024 20:57-0500 Respiratory rate 18 /min Kaylinn Dokken [facility] 07-07-2024 20:57-0500 SaO2% (BldA) [Mass fraction] 96 % Kaylinn Dokken [facility] 07-07-2024 20:57-0500 Systolic blood pressure 153 mm[Hg] Kaylinn Dokken [facility] 07-07-2024 19:33-0500 Diastolic blood pressure 89 mm[Hg] Kaylinn Dokken [facility] 07-07-2024 19:33-0500 Heart rate 60 /min Kaylinn Dokken [facility] 07-07-2024 19:33-0500 Mean blood pressure 108 mm[Hg] Kaylinn Dokken [facility] 07-07-2024 19:33-0500 Respiratory rate 19 /min Kaylinn Dokken [facility] 07-07-2024 19:33-0500 SaO2% (BldA) [Mass fraction] 95 % Kaylinn Dokken [facility] 07-07-2024 19:33-0500 Systolic blood pressure 146 mm[Hg] Kaylinn Dokken [facility] 07-07-2024 19:20-0500 Body temperature 98.06 [degF] Kaylinn Dokken [facility] 07-07-2024 18:33-0500 Body temperature 98.24 [degF] Kaylinn Dokken [facility] 07-07-2024 18:33-0500 Heart rate 73 /min Kaylinn Dokken [facility] 07-07-2024 18:33-0500 Respiratory rate 18 /min Kaylinn Dokken [facility] 07-07-2024 18:19-0500 gluc 142 mg/dL Kaylinn Dokken [facility] 07-07-2024 18:18-0500 Heart rate 73 /min Kaylinn Dokken [facility] 07-07-2024 18:18-0500 Respiratory rate 18 /min Kaylinn Dokken [facility] 05-18-2024 10:53-0400 Body height 152.4 cm Da [employer] DO Work Phone: [facility] [employer] 05-18-2024 10:53-0400 Body mass index (BMI) [Ratio] 38.08 kg/m2 Da BiedenVouch DO Work Phone: [facility] [employer] 05-18-2024 10:53-0400 Body weight 88.45 kg Da Biedenbach DO Work Phone: [facility] [employer] 04-13-2024 11:09-0400 Body height 152.4 cm Da [employer] DO Work Phone: [facility] [employer] 04-13-2024 11:09-0400 Body mass index (BMI) [Ratio] 38.08 kg/m2 Da Biedenbach DO Work Phone: [facility] 04-13-2024 11:09-0400 Body weight 88.45 kg Da Biedenbach DO Work Phone: [facility] 04-10-2024 09:25-0400 Body height 149.9 cm Da Biedenmaicol DO Work Phone: [facility] 04-10-2024 09:25-0400 Body mass index (BMI) [Ratio] 39.39 kg/m2 Da Biedenmaicol DO Work Phone: [facility] 04-10-2024 09:25-0400 Body weight 88.45 kg Da Biedenbach DO Work Phone: [facility] 03-26-2024 11:11-0400 Body height 152.4 cm Da Saeededlexii DO Work Phone: [facility] 03-26-2024 11:11-0400 Body mass index (BMI) [Ratio] 38.08 kg/m2 Da Saeededenmaicol DO Work Phone: [facility] 03-26-2024 11:11-0400 Body weight 88.45 kg Da Phillip DO Work Phone: [facility] 08-27-2023 15:38-0500 Body height 149.9 cm Brice Pj DO Work Phone: [facility] 08-27-2023 15:38-0500 Body mass index (BMI) [Ratio] 39.59 kg/m2 Brice Pj DO Work Phone: [facility] 08-27-2023 15:38-0500 Body temperature 97.39 [degF] Brice Estrella DO Work Phone: [facility] 08-27-2023 15:38-0500 Body weight 88.91 kg Brice Pj DO Work Phone: [facility] 06-07-2023 08:27-0500 Heart rate 77 /min Brice Estrella [facility] 06-07-2023 08:27-0500 SaO2% (BldA) [Mass fraction] 98 % Brice Estrella [facility] 06-07-2023 08:26-0500 Respiratory rate 20 /min Brice Estrella [facility] 06-07-2023 08:26-0500 Blood Pressure Location Brice Estrella [facility] 06-07-2023 08:26-0500 Diastolic blood pressure 64 mm[Hg] Brice Estrella [facility] 06-07-2023 08:26-0500 Mean blood pressure 77 mm[Hg] Brice Estrella [facility] 06-07-2023 08:26-0500 Systolic blood pressure 102 mm[Hg] Brice Estrella [facility] 06-07-2023 08:25-0500 Body temperature 97.88 [degF] Brice Estrella [facility] 06-07-2023 08:05-0500 Blood Pressure Location Brice Estrella [facility] 06-07-2023 08:05-0500 Diastolic blood pressure 59 mm[Hg] Brice Estrella [facility] 06-07-2023 08:05-0500 Heart rate 73 /min Brice Estrella [facility] 06-07-2023 08:05-0500 Respiratory rate 20 /min Brice Estrella [facility] 06-07-2023 08:05-0500 SaO2% (BldA) [Mass fraction] 95 % Brice Estrella [facility] 06-07-2023 08:05-0500 Systolic blood pressure 114 mm[Hg] Brice Estrella [facility] 06-07-2023 07:30-0500 Blood Pressure Location Brice Estrella [facility] 06-07-2023 07:30-0500 Diastolic blood pressure 70 mm[Hg] Birce Estrella [facility] 06-07-2023 07:30-0500 Heart rate 70 /min Brice Estrella [facility] 06-07-2023 07:30-0500 Respiratory rate 20 /min Brice Estrella [facility] 06-07-2023 07:30-0500 SaO2% (BldA) [Mass fraction] 96 % Brice Estrella [facility] 06-07-2023 07:30-0500 Systolic blood pressure 114 mm[Hg] Brice Estrella [facility] 06-07-2023 06:52-0500 Mean blood pressure 76 mm[Hg] Brice [facility]rella [facility] [facility] 06:49-0500 Body temperature 97.88 [degF] Brice Estrella [facility] 06-07-2023 06:49-0500 Mean blood pressure 79 mm[Hg] Brice Estrella [facility] Encounters Encounter Date Encounter Type Care Provider Facility Start: 03-08-2025 ambulatory Kang Ferrell ty:[facility] Start: 10-30-2024 End: 10-30-2024 ambulatory Aggie Davis [employer]ICE [employer]-C Work Phone: [facility] Work Phone: Start: 10-30-2024 End: 10-30-2024 Departed Referred Aggie Davis [employer] CUST[employer]ER SERVICE ASSOCIATE-C Work Phone: [facility] [place] [facility] Start: 10-13-2024 End: 10-13-2024 Patient encounter procedure Aggie Susan CENTER CUSTOMER SERVICE ASSOCIATE-C Work Phone: [facility] [place] Work Phone: Start: 10-13-2024 End: 10-13-2024 ambulatory Aggie Hall Susan CENTER CUSTOMER SERVICE ASSOCIATE-C Work Phone: [facility] Work Phone: Start: 09-21-2024 End: 09-21-2024 ambulatory Aggie Hall Susan CENTER CUSTOMER SERVICE ASSOCIATE-C Work Phone: [facility] Work Phone: Start: 09-21-2024 End: 09-21-2024 Discharged Recurring Aggie Susan CENTER CUSTOMER SERVICE ASSOCIATE-C Work Phone: [facility] [place] Work Phone: Start: 09-14-2024 End: 09-14-2024 ambulatory Aggie Hall Susan CENTER CUSTOMER SERVICE ASSOCIATE-C Work Phone: [facility] Work Phone: Start: 09-14-2024 End: 09-14-2024 Patient encounter procedure Aggie Mccormackmer CENTER CUSTOMER SERVICE ASSOCIATE-C Work Phone: [facility] [address] Work Phone: Start: 09-07-2024 End: 09-07-2024 ambulatory Carter Granger Facility:[facility] Start: 09-07-2024 End: 09-07-2024 Patient encounter procedure Kang BOSS [facility] Start: 09-03-2024 End: 09-03-2024 Bamboo flowsheet Olman De La Rosa DO Work Phone: [facility] Start: 09-03-2024 End: 09-03-2024 Bamboo flowsheet Olman De La Rosa DO Work Phone: [facility] Start: 09-03-2024 End: 09-03-2024 Patient encounter procedure Olman De La Rosa DO Work Phone: [facility] Comment on above: Bilateral hand numbn ess Start: 09-03-2024 End: 09-03-2024 ambulatory OLMAN DE LA ROSA Not Available Start: 08-31-2024 End: 08-31-2024 Bamboo flowsheet Brice Estrella DO Work Phone: [facility] Start: 08-31-2024 End: 08-31-2024 Bamboo flowsheet Brice Estrella DO Work Phone: [facility] Start: 08-31-2024 End: 08-31-2024 ambulatory Aggie Davis CENTER CUSTOMER SERVICE ASSOCIATE-C Work Phone: [facility] Work Phone: Start: 08-31-2024 End: 08-31-2024 Patient encounter procedure Aggie Davis CENTER CUSTOMER SERVICE ASSOCIATE-C Work Phone: [facility] Work Phone: Start: 08-31-2024 End: 08-31-2024 Patient encounter procedure Brice Estrella DO Work Phone: [facility] Comment on above: Lateral epicondyliti s of right elbow (Primary Dx); Right elbow pain; Triceps tendonitis Start: 08-31-2024 End: 08-31-2024 ambulatory BRICE ESTRELLA Not Available Start: 08-24-2024 End: 08-24-2024 ambulatory OLMAN DE LA ROSA Not Available Start: 08-20-2024 End: 08-20-2024 ambulatory AB [facility] Start: 08-20-2024 End: 08-20-2024 Bamboo flowsheet Olman De La Rosa DO Work Phone: [facility] [place] Start: 08-20-2024 End: 08-20-2024 Bamboo flowsheet Olman De La Rosa DO Work Phone: [facility] [place] Start: 08-20-2024 End: 08-20-2024 ambulatory CHRISTJESSICA DE LA ROSA Not Available Start: 08-20-2024 End: 08-20-2024 Office outpatient new 45 minutes Louisjessica De La Rosa DO Work Phone: [facility] [place] Comment on above: Loss of consciousnes s (CMS/HCC) (Primary Dx); Bilateral hand numbness Start: 08-19-2024 Registered Recurring Aggie brandon CENTER CUSTOMER SERVICE ASSOCIATE-C Work Phone: [facility] [place] Work Phone: Start: 08-18-2024 End: 08-18-2024 Bamboo flowsheet Mathieu Naqvi MD Work Phone: [facility] Start: 08-18-2024 End: 08-18-2024 Bamboo flowsheet Mathieu Naqvi MD Work Phone: [facility] Start: 08-18-2024 End: 08-18-2024 Office outpatient new 45 minutes Mathieu Naqvi MD Work Phone: [facility] Comment on above: Type 2 diabetes tad itus with hyperglycemia, with long-term current use of insulin ([facility]) (Primary Dx); Encounter for dietary consultation; Vitamin D deficiency; Primary hypertension ([facility]); Hyperlipemia, mixed (CMS/[facility]); Class 3 severe obesity due to excess calories with serious comorbidity and body mass index (BMI) of 40.0 to 44.9 in adult (CMS/[facility]) Start: 08-18-2024 End: 08-18-2024 ambulatory MATHIEU NAQVI Not Available Start: 08-14-2024 ambulatory Kang BOSS Facility [facility] Start: 08-14-2024 ambulatory Facility:[facility] [place] Start: 07-22-2024 Non-patient / Non-visit Aggie Davis NP-C Work Phone: [facility] Work Phone: Start: 07-07-2024 End: 07-07-2024 Emergency department patient visit Tiny Fallon [facility] Start: 05-18-2024 End: 05-18-2024 ambulatory DA PHILLIP Not Available Start: 05-18-2024 End: 05-18-2024 Office outpatient visit 15 minutes Da Phillip DO Work Phone: [facility] [place] Comment on above: Nontoxic multinodula r goiter (CMS/HCC) (Primary Dx); Thyroid nodule (CMS/HCC); Hearing loss, unspecified hearing loss type, unspecified laterality Start: 05-04-2024 End: 05-04-2024 Bamboo flowsheet Da Ramiro Phillip DO Work Phone: [facility] [place] Start: 05-04-2024 End: 05-04-2024 Bamboo flowsheet Da Rubio Alison DO Work Phone: [facility] [place] Start: 04-13-2024 End: 04-13-2024 Bamboo flowsheet Da Jacintolexii DO Work Phone: [facility] [place] Start: 04-13-2024 End: 04-13-2024 Bamboo flowsheet Da Webbmaicol DO Work Phone: [facility] [place] Start: 04-13-2024 End: 04-13-2024 Departed Referred [employer]ER SERVICE ASSOCIATE-C Aggie Davis Work Phone: [facility] [place] Work Phone: Start: 04-13-2024 End: 04-13-2024 ambulatory CENTER [employer]ER SERVICE ASSOCIATE-C Aggie Davis Work Phone: [facility] Work Phone: Start: 04-13-2024 [...] Start: 03-26-2024 End: 03-26-2024 Bamboo flowsheet Da Ramiro Christophejhonathanteresamaicol DO Work Phone: [facility] [place] Start: 03-26-2024 End: 03-26-2024 Patient encounter procedure CENTER CUSTOMER SERVICE ASSOCIATE-C Aggie Davis Work Phone: [facility] [place] Work Phone: Start: 03-26-2024 End: 03-26-2024 ambulatory C[employer]ER SERVICE ASSOCIATE-C Aggie Davis Work Phone: [facility] Work Phone: Start: 03-26-2024 End: 03-26-2024 Office outpatient new 45 minutes Da Phillip DO Work Phone: [facility] [place] Comment on above: Thyroid nodule (CMS/ HCC) (Primary Dx); Nontoxic multinodular goiter (CMS/HCC); Thyroid dysfunction (CMS/HCC) Start: 03-26-2024 End: 03-26-2024 ambulatory DA S BIEDENBACH Not Available Start: 02-14-2024 End: 02-14-2024 ambulatory CENTER C[employer]OMER SERVICE ASSOCIATE-C Aggie Davis Work Phone: [facility] Work Phone: Start: 02-14-2024 End: 02-14-2024 Departed Referred C[employer] C[employer]ER SERVICE ASSOCIATE-C Aggie Davis Work Phone: [facility] [place] [facility] Start: 01-25-2024 Non-patient / Non-visit CENTER CUSTOMER SERVICE ASSOCIATE-C P renetta Davis Work Phone: [facility] Work Phone: Start: 12-31-2023 End: 12-31-2023 ambulatory BRICE ESTRELLA Not Available Start: 11-11-2023 End: 02-26-2024 ambulatory Brice Estrella Facility:[facility] Start: 10-29-2023 End: 10-29-2023 [...] (Primary Dx) Start: 08-22-2023 End: 08-22-2023 ambulatory CENTER [employer]OMER SERVICE ASSOCIATE-C Aggie Davis Work Phone: [facility] Work Phone: Start: 08-22-2023 End: 08-22-2023 Discharged Recurring CENTER CUSTOMER SERVICE ASSOCIATE-C Aggie Davis Work Phone: [facility] [address] Start: 06-07-2023 End: 06-07-2023 Admission to same day surgery center Brice Estrella [facility] Start: 12-26-2022 ambulatory AGGIE SUSAN [...] End: 11-09-2021 Patient encounter procedure Michele Jane [facility] Procedures Date Procedure Procedure Detail Performing Clinician Start: 10-13-2024 Urine culture Aggie Cr amer CENTER CUSTOMER SERVICE ASSOCIATE-C Work Phone: Start: 09-14-2024 Plain X-ray of right tibia and right fibula Aggie Susan CENTER CUSTOMER SERVICE ASSOCIATE-C Work Phone: Start: 09-14-2024 MRI of head Aggienapoleon Mccormack ramirez CENTER CUSTOMER SERVICE ASSOCIATE-C Work Phone: Start: 09-03-2024 End: 09-03-2024 Needle [...] Michele Jane needle removed right foot Emilee hn [place]our[place] Operation on toenail Michele perez Release of trigger finger Emilee hn [place] right carpel tunnel Michele dill right knee arthroscopy x2 Emilee reynaldo [place]our[place] Plan of Treatment Date Care Activity Detail Author Start: 06-01-2025 Pneumococcal Vaccine: 65+ Years (3 - PPSV23 or PCV20) Pneumococcal Vaccine: 65+ Years (3 - PPSV23 or PCV20) [facility] Start: 06-01-2025 Pneumococcal Vaccine: 65+ Years (3 of 3 - PPSV23 or PCV20) Pneumococcal Vaccine: 65+ Years (3 of 3 - PPSV23 or PCV20) [facility] Start: 11-16-2024 End: 11-16-2024 Patient encounter procedure 11/16/2024 10:50 AM EDT [facility] [address] [place] [address] Mathieu Naqvi MD [address] [place] [address] [facility] Start: 11-09-2024 End: 11-09-2024 Patient encounter procedure 11/09/2024 10:00 AM EDT Office Visit [facility] [place] [address] [place] [phone] Da Phillip, DO [address] [place] [address] [facility] [place] Start: 11-02-2024 End: 11-02-2024 Patient encounter procedure 11/02/2024 10:30 AM EDT Office Visit [facility] [address] [place] [id number] Brice Estrella, DO [address] [place] [address] [facility] Start: 10-30-2024 Urine culture [facility] Start: 10-30-2024 Bacteria identified in Urine by Culture Urine Culture [facility] Start: 10-13-2024 Bacteria identified in Urine by Culture Urine Culture [facility] Start: 10-13-2024 Urine culture [facility] Start: 10-13-2024 Insulin C-peptide measurement [facility] Start: 09-28-2024 End: 09-28-2024 Patient encounter procedure 09/28/2024 1:15 PM EST Office Visit [facility] [address] [place] [address] Olman De La Rosa DO [address] [place] [address] [facility] Start: 09-10-2024 End: 09-10-2024 ambulatory 09/10/2024 1:00 PM EST Evaluation [facility] [address] [place] [phone] [place], Sofya, OT [address] [place] [address] [facility] Start: 09-03-2024 End: 09-03-2024 Patient encounter procedure [facility] AR[facility] Comment on above: Arrived Start: 09-03-2024 End: 09-03-2024 ambulatory 09/03/2024 12:30 PM EST Evaluation [facility] [address] [place] [address] Sofya Brasher, OT [address] [place] [address] [facility] Start: 08-31-2024 End: 08-31-2024 Patient encounter procedure [facility] Comment on above: Arrived Start: 08-24-2024 End: 08-24-2024 Clinical Support 08/24/2024 10:45 AM EST Clinical Support [facility] [address] [facility] [place] [address] [facility] Start: 08-20-2024 End: 08-20-2025 Creatinine [Mass/volume] in Serum or Plasma Creatinine, Serum Lab Routine Loss of consciousness ([facility]/HCC) Expected: 08/20/2024 (Approximate), Expires: 08/20/2025 [facility] Comment on above: Expected: 08/20/2024 (Approximate), Expi res: 08/20/2025 Start: 08-20-2024 End: 08-20-2025 EEG, Including Recording Awake or Asleep EEG, Including Recording Awake or Asleep Neurology Routine Loss of consciousness ([facility]/HCC) Expected: 08/20/2024 (Approximate), Expires: 08/20/2025 [facility] Comment on above: Expected: 08/20/2024 (Approximate), Expi res: 08/20/2025 Start: 08-20-2024 End: 08-20-2025 EMG 2 Extremities EMG 2 Extremities Neurology Routine Bilateral hand numbness Expected: 08/20/2024, Expires: 08/20/2025 [facility] Work Phone: Comment on above: Expected: 08/20/2024, Expires: Start: 08-20-2024 End: 08-20-2025 MR Brain WO and W contrast IV MR brain w and wo contrast routine Imaging Routine Loss of consciousness (CMS/HCC) Expected: 08/20/2024, Expires: 08/20/2025 [facility] Comment on above: Expected: 08/20/2024, Expires: Start: 08-20-2024 End: 08-20-2024 Patient encounter procedure 08/20/2024 9:00 AM EST Office Visit [facility] [place] [address] [address] Olman De La Rosa DO [address] [place] [address] [facility] [place] Start: 08-18-2024 End: 08-18-2025 25-hydroxyvitamin D3 [Mass/volume] in Serum or Plasma Vitamin D 25 hydroxy Total Lab Routine Type 2 diabetes mellitus with hyperglycemia, with long-term current use of insulin ([facility]) Expected: 08/18/2024 (Approximate), Expires: 08/18/2025 [facility] Comment on above: Expected: 08/18/2024 (Approximate), Expi res: 08/18/2025 Start: 08-18-2024 End: 08-18-2025 C-peptide C-peptide Lab Routine Type 2 diabetes mellitus with hyperglycemia, with long-term current use of insulin ([facility]) Expected: 08/18/2024 (Approximate), Expires: 08/18/2025 [facility] Work Phone: Comment on above: Expected: 08/18/2024 (Approximate), Expi res: 08/18/2025 Start: 08-18-2024 End: 08-18-2025 Lipid 1996 panel - Serum or Plasma Lipid panel Lab Routine Type 2 diabetes mellitus with hyperglycemia, with long-term current use of insulin ([facility]/HCC) Expected: 08/18/2024 (Approximate), Expires: 08/18/2025 [facility] Comment on above: Expected: 08/18/2024 (Approximate), Expi res: 08/18/2025 Start: 08-18-2024 End: 08-18-2025 Microalbumin/Creatinine panel in random Urine Microalbumin / creatinine urine ratio Lab Routine Type 2 diabetes mellitus with hyperglycemia, with long-term current use of insulin ([facility]) Expected: 08/18/2024 (Approximate), Expires: 08/18/2025 [facility] Comment on above: Expected: 08/18/2024 (Approximate), Expi res: 08/18/2025 Start: 08-18-2024 End: 08-18-2025 Renal function panel Renal function panel Lab Routine Type 2 diabetes mellitus with hyperglycemia, with long-term current use of insulin ([facility]) Expected: 08/18/2024 (Approximate), Expires: 08/18/2025 [facility] Comment on above: Expected: 08/18/2024 (Approximate), Expi res: 08/18/2025 Start: 08-18-2024 End: 08-18-2024 Patient encounter procedure 08/18/2024 10:30 AM EST Office Visit [facility] [address] [place] [address] Mathieu Naqvi MD [address] [place] [address] Arrived [facility] Comment on above: Arrived Start: 07-27-2024 End: 07-27-2024 Patient encounter procedure 07/27/2024 1:00 PM EST Office Visit [facility] [address] [facility] [place] [place] [address] Chana Ilgesias, AUD [address] [facility] [place] [address] [facility] Start: 05-04-2024 End: 05-04-2024 Patient encounter procedure 05/04/2024 10:15 AM EDT Office Visit [facility] [place] [address] [facility] [place] [address] Da Phillip, DO [address] [place] [address] Arrived [facility] Comment on above: Arrived Start: 04-13-2024 End: 04-13-2024 Patient encounter procedure 04/13/2024 11:00 AM EDT Office Visit [facility] [address] [place] [address] Da Phillip, DO [address] [place] [address] [facility] Start: 04-10-2024 End: 04-10-2024 Patient encounter procedure [facility] Comment on above: Arrived Start: 03-29-2024 Influenza vaccination Influenza Vaccine (#1) [facility] Start: 03-26-2024 End: 03-26-2025 Thyrotropin [Units/volume] in Serum or Plasma [facility] Comment on above: Expected: 03/26/2024 (Approximate), Expi res: 03/26/2025 Start: 03-26-2024 End: 03-26-2025 Triiodothyronine (T3) [Mass/volume] in Serum or Plasma T3 Lab Routine Thyroid nodule (CMS/HCC) Expected: 03/26/2024 (Approximate), Expires: 03/26/2025 [facility] Work Phone: Comment on above: Expected: 03/26/2024 (Approximate), Expi res: 03/26/2025 Start: 03-26-2024 End: 03-26-2024 Patient encounter procedure 03/26/2024 11:00 AM EDT Office Visit [facility] [place] [address] [place] [address] Da Phillip, DO [address] [place] [address] Arrived [facility] Comment on above: Arrived Start: 10-08-2023 End: 10-08-2023 Patient encounter procedure 10/08/2023 10:00 AM EDT Office Visit [facility] [address] [place] [phone] Brice Estrella DO [address] [place] [address] [facility] Start: 07-29-2023 Pneumococcal Vaccine: 65+ Years (3 of 3 - PPSV23 or PCV20) Pneumococcal Vaccine: 65+ Years (3 of 3 - PPSV23 or PCV20) [facility] Start: 1994 Screening for malignant neoplasm of breast Mammogram [facility] Start: 1973 Urine screening for protein Diabetes: Urine Protein Screening [facility] Start: 1964 Glaucoma screening Diabetes: Retinopathy Screening [facility] Start: 1954 Hemoglobin A1c measurement Diabetes: Hemoglobin A1C [facility] Start: 1954 Medicare Annual Wellness (AWV) Medicare Annual Wellness (AWV) [facility] Start: 1954 Screening for malignant neoplasm of colon [facility] Renal function 2000 panel - Serum or Plasma [facility] Immunizations Immunization Date Immunization Notes Care Provider Fa cility 06-11-2024 zoster vaccine recombinant Kang BOSS [facility] 01-11-2024 zoster vaccine recombinant Kang BOSS [facility] 12-27-2023 zoster vaccine recombinant Da Phillip DO Work Phone: [facility] 06-30-2023 Influenza, High-dose Seasonal, Quadrivalent, Preservative Free Da Phillip DO Work Phone: [facility] 06-30-2023 influenza virus vaccine, unspecified formulation Da Phillip DO Work Phone: [facility] 10-30-2022 influenza virus vaccine, unspecified formulation Kang BOSS [facility] 10-30-2022 Influenza, High-dose Seasonal, Quadrivalent, Preservative Free Da Phillip DO Work Phone: [facility] 05-31-2022 influenza virus vaccine, unspecified formulation Kang BOSS [facility] 05-31-2022 Influenza, Seasonal, Quadrivalent, Adjuvanted Da Phillip DO Work Phone: [facility] 12-19-2020 SARS-CoV-2 (COVID-19 ) mRNA-1273 vaccine Kang BOSS [facility] 11-22-2020 SARS-CoV-2 (COVID-19 ) mRNA-1273 vaccine Kangmarcos BOSS [facility] 11-14-2020 SARS-CoV-2 (COVID-19 ) mRNA-1273 vaccine Michele Michaelchris [facility] 06-01-2020 influenza virus vaccine, unspecified formulation Kang BOSS [facility] 06-01-2020 pneumococcal conjuga te vaccine, 13 valent Da Phillip DO Work Phone: [facility] 06-01-2020 Seasonal trivalent influenza vaccine, adjuvanted, preservative free Da Phillip DO Work Phone: [facility] 04-28-2019 influenza virus vaccine, unspecified formulation Kangmarcos BOSS [facility] 04-28-2019 influenza, seasonal, injectable Da Phillip DO Work Phone: [facility] 07-29-2018 pneumococcal polysaccharide vaccine, 23 valent Da Phillip DO Work Phone: [facility] 04-18-2018 tetanus toxoid, redu soledad diphtheria toxoid, and acellular pertussis vaccine, adsorbed [facility] [employer]ICE [employer] Aggie Mccormackmer Work Phone: [facility] Payers Date Payer Category Payer Self-pay [id number] 2022 Unknown LAMIN Nunes [employer] [id number] 2022-Present [address] [place] [address] [id number] 2022 Worker's Compensation LAMIN Harper ember [id number] 2022 Medicare [employer] MEDICARE ADVANTAGE [employer] MEDICARE [id number] 2022-Present [address] [address] [place] [address] [id number] [id number] 2022 Medicare (Managed Care) [employer] EDICARE ADVANTAGE [id number] 1959 Medicare [id number] 1959 Unknown [id number] 1954 Unknown [id number] 2.16.840.1.899217.3.579. 2.593 1954 Unknown [id number] 2.16.840.1.925957.3.579. 2.593 1954 Unknown [id number] 2.16.840.1.837150.3.579. 2.593 1954 Unknown [id number] 2.16.840.1.666171.3.579. 2.593 1954 Unknown [id number] 2.16.840.1.439051.3.579. 2.593 1954 Unknown [id number] 2.16.840.1.491696.3.579. 2.593 1954 Unknown [id number] 2.16.840.1.800785.3.579. 2.593 1954 Unknown [id number] 2.16.840.1.020707.3.579. 2.593 1954 Unknown [id number] 2.16.840.1.781855.3.579. 2.593 1954 Unknown [id number] 2.16.840.1.909167.3.579. 2.593 1954 Unknown [id number] 2.16.840.1.052888.3.579. 2.593 1954 Unknown [id number] 2.16.840.1.559019.3.579. 2.593 1954 Unknown [id number] 2.16.840.1.958300.3.579. 2.727 1954 Unknown [id number] 2.16.840.1.158554.3.579. 2. 1954 Unknown [id number] 2.16.840.1.685863.3.579. 2. 1954 Unknown [id number] 2.16.840.1.852760.3.579. 2. 1954 Unknown [id number] 2.16.840.1.437029.3.579. 2. 1954 Unknown [id number] 2.16.840.1.404584.3.579. 2. 1954 Unknown [id number] 2.16840.1.041038.3.579. 2.1258 1954 Unknown [id number] 2.16.840.1.490603.3.579. 2.1258 1954 Unknown [id number] 2.16.840.1.049760.3.579. 2.1258 1954 Unknown [id number] 2.16.840.1.806144.3.579. 2.1258 1954 Unknown [id number] 2.16840.1.649001.3.579. 2.1258 1954 Unknown [id number] 2.16.840.1.058917.3.579. 2.1258 1954 Unknown [id number] 2.16.840.1.941636.3.579. 2.1258 1954 Unknown [id number] 2.16.840.1.477788.3.579. 2.1258 1954 Unknown [id number] 2.16.840.1.530409.3.579. 2.1258 1954 Unknown [id number] 2.16.840.1.643545.3.579. 2.1258 1954 Unknown [id number] 2.16.840.1.432641.3.579. 2.1258 1954 Unknown [id number] 2.16.840.1.207816.3.579. 2.1258 1954 Unknown [id number] 2.16.840.1.797550.3.579. 2.1258 1954 Unknown [id number] 2.16.840.1.566874.3.579. 2.1258 1954 Unknown [id number] 2.16.840.1.108589.3.579. 2.1258 1954 Unknown [id number] 2.16.840.1.206070.3.579. 2.1258 1954 Unknown [id number] 2.16.840.1.274474.3.579. 2.1258 1954 Unknown [id number] 2.16.840.1.824344.3.579. 2.1258 1954 Unknown [id number] 2.16.840.1.935480.3.579. 2.1258 1954 Unknown [id number] 2.16.840.1.542339.3.579. 2.1258 1954 Unknown [id number] 2.16.840.1.914619.3.579. 2.1258 1954 Unknown [id number] 2.16.840.1.208383.3.579. 2.1258 1954 Unknown [id number] 2.16.840.1.269645.3.579. 2.1258 1954 Unknown [id number]. 2.1258 1955 Unknown [id number] 2.16.840.1.717963.3.579. 2.1258 1955 Unknown [id number] 2.16.840.1.597387.3.579. 2.1259 1955 Unknown [id number] 2.16.840.1.888864.3.579. 2.727 1955 Unknown [id number] 2.16.840.1.336896.3.579. 2.727 Unknown Dionisio BC/BS [id number] Unknown Regular Auto/Medical [id number] Unknown [id number] 2.16.840.1.064420.3.579. 2.531 Unknown [id number] 2.16.840.1.128867.3.579. 2.531 Unknown [id number] 2.16.840.1.882142.3.579. 2.531 Unknown [id number] 2.16.840.1.246013.3.579. 2.531 Unknown [id number] 2.16.840.1.870610.3.579. 2.531 Unknown [id number] 2.16.840.1.806945.3.579. 2.531 Unknown [id number] 2.16.840.1.034771.3.579. 2.531 Social History Date Type Detail Facility Tobacco Cigarettes [facility] Comment on above: 05/30 pkg daily Start: 08-27-2023 End: 08-31-2024 Sex Assigned At Female [facility] Tobacco smoking status No Smoking Status Entered [facility] Start: 05-07-2023 Tobacco smoking status NHIS Smokes tobacco daily [facility] History of tobacco use Cigarette Smoker [facility] Start: 05-07-2023 Tobacco use and exposure Smokeless tobacco non-user [facility] Start: 08-27-2023 End: 08-31-2024 Alcohol intake Lifetime non-drinker (finding) [facility] Start: 08-27-2023 End: 08-31-2024 History of Social function [facility] Start: 05-07-2023 Alcohol Comment caffeine intak e: more than 4 cups per day of coffee, pop, tea [facility] Start: 1955 Sex Assigned At Not on file [facility] Start: 04-12-2023 End: 09-21-2024 Tobacco smoking status NHIS Smoker (finding) [facility] Start: 1955 Sex Assigned At Female F [facility] Start: 08-16-2024 Gender identity Identifies as female gender (finding) [facility] Start: 08-31-2024 End: 11-01-2024 Sex Female (finding) [facility] Start: 09-07-2024 Tobacco smoking status Heavy tobacco smoker (finding) [facility] Comment on above: 05/30 pkg daily Tobacco smoking status Never [facility] Comment on above: 05/30 pkg daily Medical Equipment Procedure Code Equipment Code Equipment Origin al Text Equipment Identifier Dates [id number] Start: 04-05-2023 TEST BLOOD SUGAR THREE TIMES DAILY for 90 [id number] Blood Sugar Diagnostic (Onetouch Ultra Test) strip [...] 09-07-2024 Functional Status N/A [facility] 07-07-2024 Functional Status N/A [facility] 06-07-2023 Functional Status N/A [facility] Clinical Notes 03-16-2022 to 09-07-2024 Rolando DAR Camara - 09/03/2024 2:00 PM EST Note Date & Type Note Facility 09-07-2024 Hospital Discharge instructions Patient Education 09/07/2024 10:32:32 Urinary Tract Infection, Adult, Vagb-ox-Pylm Urinary Tract Infection, Adult A urinary tract [...] Follow these instructions at home: Medicines Take bxxs-ldj-vvjnumw and prescription medicines only as told by [...] provider. Document Revised: 02/19/2021 Document Reviewed: 02/24/2021 [employer] Patient Education 2023 [employer]. Follow Up Care 08/14/2024 14:18:16 With:KARYN WRAY, Kang Morelos, URL Address: [facility] [address] [place] [address]- When:Within 6 Month(s) Comments:w/TOMEKA [facility] [place] 09-07-2024 Note Urology Office/Clini c Note Chief [...] order TOMEKA. Follow-up With When Contact Information KARYN WRAY, SHAVONNE Ponce In 6 months [facility] [address] [place] [address]- Additional Instructions: w/TOMEKA Patient Education Urinary Tract Infection, Adult, Uxru-kl-Vvix ITricia , personally scribed for Dr. Boss on [...] Cap, 10 m (more content not included)... [facility] Comment on above: Result Comment: Elec [...] these instructions at home: Medicines ??? Take hrff-esk-foyhqcp and prescription medicines only as told by [...] provider. Document Revised: 02/19/2021 Document Reviewed: 02/24/2021 Knowledge[employer] Patient Education ? 2023 Videoflow. [facility] 09-03-2024 History of Present illness Narrative Images from the original note were not included. Reason for Appointment: EMG Patient: Virgen Zelaya : 1955 EMG Computer: Nephosity Referring Physician: Dr. Olman De La Rosa EMG: KAILA casing fluid tender: Rolando Camara RT(R) Office Location: [place] Reason for EMG: c/o twitching in bilateral arms, weakness in bilateral hands R>L, neck pain. Hx of surgery to bilateral hands & bilateral CTR. Hx of DM. Taking ASA. Comments: Procedure was explained to the patient who expressed understanding. Patient appeared to have tolerated the test well despite some discomfort due to the nature of the test. documented in this encounter [facility] 08-31-2024 Evaluation note Diagnosis Onset Date Resolution [...] right lower extremity acute August 302024 8:14am [facility] Work Phone: 1(367) 926-348502-03-2025 History of Present illness Narrative* DAR Delong [...] from the original note were not included. @ELDON@ Virgen Rubio Bindu Zelaya is a 68 y.o. female [...] 07/23/2023. SOCIAL HISTORY She now works at [employer]. SUBJECTIVE: MEDICATIONS: Current Outpatient Medications Medication Instructions [...] meals Jardiance 25 MG (Prior Auth: Rx Ref#:[id number]) Oral for 90 Lasix 20 MG tablet [...] 6 hours ReliOn Insulin Syringe 31G X 1564 0.3 ML misc USE 1 ONCE DAILY [...] Right 2006 NAIL REMOVAL toenails removed x3 [place] ARTHROSCOPY KNEE DIAGNOSTIC W/WO SYNOVIAL BX SPX Right 02/24/2020 Dr. Ashraf [place] KNEE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 [address] [place] [address] Otolaryngology 04/10/24 High Raw Sugar Boiler Relationship Specialty Start Date End Date Carter Granger MD [address] [place] [phone] PCP - General Family Medicine 04/10/24 Aggie Davis MD [address] [place] [phone] Referring Physician Family Medicine 04/10/24 Da Phillip DO [address] [place] [address] Otolaryngology 04/10/24 Olman De La Rosa DO [address] [place] [phone] Referring Physician Neurology 08/20/24 High Raw Sugar Boiler Relationship Specialty Start Date End Date Catrer Granger MD [address] [place] [phone] PCP - General Family Medicine 04/10/24 Aggie Davis MD [address] [place] [address] [phone] Referring Physician Family Medicine 04/10/24 Da Phillip DO [address] [place] [address] Otolaryngology 04/10/24 Olman De La Rosa DO [address] [place] [phone] Referring Physician Neurology 08/20/24 High Raw Sugar Boiler Relationship Specialty Start Date End Date Carter Granger MD [address] [place] [phone] PCP - General Family Medicine 04/10/24 Aggie Davis MD [address] [place] [phone] Referring Physician Family Medicine 04/10/24 Da Phillip DO [address] [place] [address] Otolaryngology 04/10/24 Olman De La Rosa DO [address] [place] [phone] Referring Physician Neurology 08/20/24 Team Status: Active Member Role Status Dates Aretha Valadez APRN Attending Provider Active Start: August 19, 2024 Aggie Davis NP-C Primary Care Provider Active Start: August 19, 2024 Team Status: Inactive Member Role Status Dates Aggie Davis NP-C Primary Care Provider Active Start: August 31, 2024 End: August 31, 2024 Dinah Sepulveda MD Attending Provider Active Start : August 31, 2024 End: August 31, 2024 High Raw Sugar Boiler Relationship Specialty Start Date End Date Carter Granger MD [address] [place] [phone] PCP - General Family Medicine 04/10/24 Aggie Davis MD [address] [place] [phone] Referring Physician Family Medicine 04/10/24 Da Phillip DO [address] [place] [address] Otolaryngology 04/10/24 Olman De La Rosa DO [address] [place] [phone] Referring Physician Neurology 08/20/24 High Raw Sugar Boiler Relationship Specialty Start Date End Date Carter Granger MD [address] [place] [phone] PCP - General Family Medicine 04/10/24 Aggie Davis MD [address] [place] [phone] Referring Physician Family Medicine 04/10/24 Da Phillip DO [address] [place] [address] Otolaryngology 04/10/24 Olman De La Rosa DO [address] [place] [phone] Referring Physician Neurology 08/20/24 Team Status: Active Member Role Status Dates Aggie Davis CENTER CUSTOMER SERVICE ASSOCIATE-C Primary Care Provider Active Start: July 22, [...] Inactive Member Role Status Dates Aggie Davis CENTER CUSTOMER SERVICE ASSOCIATE-C Primary Care Provider Active Start: September 14, [...] Davis NP-C Primary Care Provider Active Start: October 13, 2024 End: October 13, 2024 Dinah Sepulveda MD Attending Provider Active Start : October 13, 2024 End: October 13, 2024 Ponce Silvestre Other Provider Active Start: Sep End: October 13, 2024 Mathieu Naqvi MD Other Provider Active Start: October 13, 2024 End: October 13, 2024 Team Status: Inactive Member Role Status Dates Jose Nair DO Attending Provider Active S tart: October 30, 2024 End: October 30, 2024 Reason for Visit (unrecogniz ed section [...] BE BASED ON THE PRIMARY CLINICAL RECORDS. [employer] [facility]. provides no warranty or guarantee of the accuracy or completeness of information in this document.
--- NOTE | 2024-11-03 14:15 | CM.DCFOLLOWU ---
Person spoke with:patient How are you feeling? well How is your pain?none Did you understand your discharge instructions? yes Do you have any questions about your discharge instructions? no Were you given any prescriptions at discharge? yes Were you able to get your prescriptions filled?yes Do you understand how to take your medications as ordered?yes Do you have any questions about your follow up appointment and do you plan to keep your follow up appointment? no questions, follow up Is there anything else that you would like to discuss?no Questions/Comments/Concerns/Other:none
== END 2024-11-01 15:35 | disposition home or self-care (01) | DRG 683 ==
LOC: ER 20:58 → MS 10-31 09:20
PROVIDERS: Emergency Medicine; Admitting Provider Family Medicine; Emergency Provider Emergency Medicine; PCP Nurse Practitioner Family; Visit Provider Family Medicine
DX: N17.9 Acute kidney failure, unspecified (principal); N30.00 Acute cystitis without hematuria; M81.0 Age-related osteoporosis without current pathological fracture; E78.00 Pure hypercholesterolemia, unspecified; I15.2 Hypertension secondary to endocrine disorders; E11.65 Type 2 diabetes mellitus with hyperglycemia; K21.9 Gastro-esophageal reflux disease without esophagitis; I25.2 Old myocardial infarction; E11.22 Type 2 diabetes mellitus with diabetic chronic kidney disease; N18.4 Chronic kidney disease, stage 4 (severe); I25.10 Atherosclerotic heart disease of native coronary artery without angina pectoris; Z79.4 Long term (current) use of insulin; Z79.84 Long term (current) use of oral hypoglycemic drugs; Z79.899 Other long term (current) drug therapy; Z79.83 Long term (current) use of bisphosphonates; Z79.82 Long term (current) use of aspirin; Z88.0 Allergy status to penicillin; Z88.1 Allergy status to other antibiotic agents; Z88.5 Allergy status to narcotic agent; V49.09XA Driver injured in collision with other motor vehicles in nontraffic accident, initial encounter; Y92.481 Parking lot as the place of occurrence of the external cause
CPT/HCPCS: 36415; 70450; 71045; 73030; 73502; 80053; 81001; 82009; 82800; 82948; 83735; 83880; 84484; 85025; 87045; 87046; 87086; 87427; 87493; 93005; 96361; 96374; 97161; 99285; J0744; J1644; J1815

== ENCOUNTER 2024-11-12 14:01 | Outpatient (RCR) | payer MEDICARE, SELFPAY | END 2025-02-25 08:08 | disposition home or self-care (01) | LOC: PT 14:01 | PROVIDERS: PCP Nurse Practitioner Family; Visit Provider Nurse Practitioner Family | DX: M25.512 Pain in left shoulder (principal); E11.49 Type 2 diabetes mellitus with other diabetic neurological complication; M54.2 Cervicalgia; R51.9 Headache, unspecified; M54.41 Lumbago with sciatica, right side; M25.511 Pain in right shoulder | CPT/HCPCS: 20561; 97110; 97140; 97161 ==

== ENCOUNTER 2024-11-14 10:09 | Outpatient (OUT) | payer MEDICARE, SELFPAY ==
--- OUTSIDE RECORDS SUMMARY | 2024-11-14 10:12 | XMS_ITS | CCD ---
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 ####[address] Urobilinogen,Urine Normal Normal Normal [facility] Comment on above: Order Comment: Name Collection Type:: Clean-Voided Midstream Performed By: #### A DDONUAPLUS, CUU, PROCRERAT ####[address] WBC,Urine 20-49 High 0-4 [facility] Comment on above: Order Comment: Name Collection Type:: Clean-Voided Midstream Performed By: #### A JALEESA RAPHAEL PROCRERAT ####[facility] [id number] [place] [id number] [facility] Epithelial cells.squamous [# /area] in Urine sediment by Automated countOrdered By: Dinah Sepulveda on 10-13-2024 Epithelial cells.squamous Auto (Urine sed) [#/Area] Epithelial cells.squamous [#/area] in Urine sediment by Automated count High 0-2 [facility] Erythrocyte distribution wid th Auto (RBC) [Ratio]Ordered By: Dinah Sepulveda on 10-13-2024 Erythrocyte distribution width (RBC) [Ratio] Erythrocyte distribution width [Ratio] by Automated count 11.9-15.3 [facility] Erythrocytes [#/area] in Uri ne sediment by Automated countOrdered By: Dinah Sepulveda on 10-13-2024 RBC Auto (Urine sed) [#/Area] Erythrocytes [#/area] in Urine sediment by Automated count 0-4 [facility] Globulin Calc (S) [Mass/Vol] Ordered By: Ponce Silvestre on 10-13-2024 Globulin (S) [Mass/Vol] Serum globulin measurement by calculation (mass/volume) [facility] Glucose [Mass/volume] in Ser um or PlasmaOrdered By: Mathieu Naqvi on 10-13-2024 Glucose [Mass/Vol] Glucose [Mass/volume ] in Serum or Plasma High 70-100 [facility] Comment on above: ADA recommended refe [...] in Urine by Test strip High Normal [facility] Hematocrit Auto (Bld) [Volum e fraction]Ordered By: Dinah Sepulveda on 10-13-2024 Hematocrit (Bld) [Volume fraction] Hematocrit [Volume Fraction] of Blood by Automated count 34.0-46.4 [facility] Hemoglobin Test strip Ql (U) Ordered By: Dinah Sepulveda on 10-13-2024 Hemoglobin Ql (U) Hemoglobin [Presence ] in Urine by Test strip Negative [facility] Hemoglobin [Mass/volume] in BloodOrdered By: Dinah Sepulveda on 10-13-2024 Hemoglobin (Bld) [Mass/Vol] Hemoglobin [Mass/volume] in Blood 11.8-15.4 [facility] Hemogram CBC Without Diffon 10-13-2024 Erythrocyte distribution width (RBC) [Ratio] 15.3 % Normal 11.9-15.3 [facility] Comment on above: Performed By: #### U JAMSHID, MG, PTH, CBCNO ####[address] Hematocrit (Bld) [Volume fraction] 37.7 % Normal 34.0-46.4 [facility] Comment on above: Performed By: #### U JAMSHID, MG, PTH, CBCNO ####[address] Hemoglobin (Bld) [Mass/Vol] 12.7 g/dL Normal 11.8-15.4 [facility] Comment on above: Performed By: #### U JAMSHID, MG, PTH, CBCNO ####[place] [id number] [facility] MCH (RBC) [Entitic mass] 29.3 pg Normal 24.7-34.3 [facility] Comment on above: Performed By: #### U JAMSHID, MG, PTH, CBCNO ####[place] [id number] [facility] MCV (RBC) [Entitic vol] 87.1 fL Normal 80-100 [facility] Comment on above: Performed By: #### U JAMSHID, MG, PTH, CBCNO ####[place] [id number] [facility] Mean Corpuscular HGB Conc 33.6 g/dL Normal 32.0-35.0 [facility] Comment on above: Performed By: #### U JAMSHID, MG, PTH, CBCNO ####[address] Platelet mean volume (Bld) [Entitic vol] 9.9 fL Normal 6.3-10.7 [facility] Comment on above: Result Comment: PERF ORMED BY: [place] [address] PATHOLOGIST RUNNING SPECIALIST NISHANT MORLEY M.D. Performed By: #### U JAMSHID, MG, PTH, CBCNO ####[address] Platelets (Bld) [#/Vol] 192 10*3/uL Normal 150-450 [facility] Comment on above: Performed By: #### U JAMSHID, MG, PTH, CBCNO ####[address] RBC (Bld) [#/Vol] 4.33 10*6/uL Normal 3.60-5.00 [facility] Comment on above: Performed By: #### U JAMSHID, MG, PTH, CBCNO ####[address] WBC (Bld) [#/Vol] 8.4 10*3/uL Normal 3.8-11.6 [facility] Comment on above: Performed By: #### U JAMSHID, MG, PTH, CBCNO ####[address] Hepatic Panelon 10-13-2024 Albumin [Mass/Vol] 3.8 g/dL Normal 3.5-5.7 [facility] Comment on above: Performed By: #### H EPATIC #### [address] Albumin/Globulin [Mass ratio] 1.5 {ratio} Normal [facility] Comment on above: Performed By: #### H EPATIC #### [address] ALP [Catalytic activity/Vol] 99 U/L Normal 34-104 [facility] Comment on above: Result Comment: PERF ORMED BY: [place] [address] PATHOLOGIST RUNNING SPECIALIST NISHANT MORLEY M.D. Performed By: #### H EPATIC #### [address] ALT [Catalytic activity/Vol] 11 U/L Normal 7-52 [facility] Comment on above: Performed By: #### H EPATIC #### [address] AST [Catalytic activity/Vol] 14 U/L Normal 13-39 [facility] Comment on above: Performed By: #### H EPATIC #### [address] Bilirubin [Mass/Vol] 0.4 mg/dL Normal 0.3-1.0 [facility] Comment on above: Performed By: #### H EPATIC #### [address] Bilirubin,Indirect 0.3 mg/dL Normal [facility] Comment on above: Performed By: #### H EPATIC #### [address] Bilirubin.indirect [Mass/Vol] 0.10 mg/dL Normal 0.03-0.18 [facility] Comment on above: Performed By: #### H EPATIC #### [address] Globulin (S) [Mass/Vol] 2.6 g/dL Normal T [facility] Comment on above: Performed By: #### H EPATIC #### [address] Protein [Mass/Vol] 6.4 g/dL Normal 6.4-8.9 [facility] Comment on above: Performed By: #### H EPATIC #### [address] Hyaline casts [#/area] in Ur ine sediment by Automated countOrdered By: Dinah Sepulveda on 10-13-2024 Hyaline casts Auto (Urine sed) [#/Area] Hyaline casts [#/area] in Urine sediment by Automated count 0-8 [facility] Ketones Test strip Ql (U)Ord ered By: Dinah Sepulveda on 10-13-2024 Ketones Ql (U) Ketones [Presence] i n Urine by Test strip Negative [facility] Leukocyte esterase [Presence ] in Urine by Test stripOrdered By: Dinah Sepulveda on 10-13-2024 Leukocyte esterase Test strip Ql (U) Leukocyte esterase [Presence] in Urine by Test strip High Negative [facility] Leukocytes [#/area] in Urine sediment by Automated countOrdered By: Dinah Sepulveda on 10-13-2024 WBC Auto (Urine sed) [#/Area] Leukocytes [#/area] in Urine sediment by Automated count High 0-4 [facility] Leukocytes [#/volume] correc graham for nucleated erythrocytes in Blood by Automated counOrdered By: Dinah Sepulveda on 10-13-2024 WBC corrected for nucl RBC Auto (Bld) [#/Vol] Leukocytes [#/volume] corrected for nucleated erythrocytes in Blood by Automated coun 3.8-11.6 [facility] Lipid Panelon 10-13-2024 Cholesterol [Mass/Vol] 95 mg/dL Low 140-200 [facility] Comment on above: Result Comment: Chol less than 200 mg/dl low risk Chol 201-239 mg/dl borderline risk Chol 240 mg/dl and greater high risk Performed By: #### L IPID #### [facility] [address] [place] [address] [place] #### CPEP #### [facility] , Cholesterol in HDL [Mass/Vol] 28 mg/dL Normal 23-92 [facility] Comment on above: Result Comment: HDL CHOL ATP-III CLASSIFICATION Cardiovascular Risk HDL > or equal to 60 mg/dL LOW HDL < 40 mg/dL HIGH Performed By: #### L IPID #### [facility] [address] [place] [address] [place] #### CPEP #### [facility] , Cholesterol.total/Vivian sterol in HDL [Mass ratio] 3.4 {ratio} Normal <5.0 [facility] Comment on above: Result Comment: PERF ORMED BY: [place] [address] PATHOLOGIST RUNNING SPECIALIST NISHANT MORLEY M.D. Performed By: #### L IPID #### [place] [address] [place] #### CPEP #### [facility] , LDL Cholesterol,Calculated 48 mg/dL Normal 0-100 [facility] Comment on above: Result Comment: LDL ATP III CLASSIFICATION LDL less than 100 mg/dL Optimal LDL 100-129 mg/dL Near or above optimal LDL 130-159 mg/dL Borderline high LDL 160-189 mg/dL High LDL greater than 189 mg/dL Very high Performed By: #### L IPID #### [address] #### CPEP #### [facility] , Triglyceride w/Reflex 97 mg/dL Normal 0-149 [facility] Comment on above: Result Comment: TRIG ATP III CLASSIFICATION TRIG less than 150 mg/dL Normal TRIG 150-199 mg/dL Borderline high TRIG 200-500 mg/dL High TRIG greater than 500 mg/dL Very high Standard traceable to the Center for Disease Conrtrol and Prevention (CDC) test method. Performed By: #### L IPID #### [place] [address] [place] #### CPEP #### [facility] , VLDL CHOLESTEROL 19 mg/dL Normal [facility] Comment on above: Performed By: #### L IPID #### [place] [address] [place] #### CPEP #### [facility] , MCH Auto (RBC) [Entitic mass ]Ordered By: Dinah Sepulveda on 10-13-2024 MCH (RBC) [Entitic mass] MCH [Entitic mass] by Automated count 24.7-34.3 [facility] MCHC Auto (RBC) [Mass/Vol]Or dered By: Dinah Sepulveda on 10-13-2024 MCHC (RBC) [Mass/Vol] MCHC [Mass/volume] by Automated count 32.0-35.0 [facility] MCV Auto (RBC) [Entitic vol] Ordered By: Dinah Sepulveda on 10-13-2024 MCV (RBC) [Entitic vol] MCV [Entitic vol ume] by Automated count 80-100 [facility] Magnesiumon 10-13-2024 Magnesium [Mass/Vol] 2.1 mg/dL Normal 1.9-2.7 [facility] Comment on above: Performed By: #### U JAMSHID, MG, PTH, CBCNO ####[place] [id number] [facility] Magnesium [Mass/volume] in S yoav or PlasmaOrdered By: Dinah Sepulveda on 10-13-2024 Magnesium [Mass/Vol] Magnesium [Mass/volume] in Serum or Plasma 1.9-2.7 [facility] MicroAlb Creat Ratio,Uon Albumin DL <= 20 mg/L (U) [Mass/Vol] 0.7 mg/dL Normal 0.0-1.8 [facility] Comment on above: Performed By: #### U RMACRERAT ####[place] [id number] [facility] Microalbumin/Creatinine Ratio 9.2 mg/g Normal 0.0-30.0 [facility] Comment on above: Result Comment: 30-3 00 mg/g indicates an increased risk for diabetic nephropathy. Greater than 300 mg/g is consistent with clinical nephropathy. (Am. J. Kidney Disease 1995, 25:107) PERFORMED BY: [facility] [address] [place] [address] PATHOLOGIST RUNNING SPECIALIST NISHANT MORLEY M.D. Performed By: #### U RMACRERAT ####[place] [id number] [facility] Microalbumin [Mass/volume] i n UrineOrdered By: Mathieu Naqvi on 10-13-2024 Albumin DL <= 20 mg/L (U) [Mass/Vol] Microalbumin [Mass/volume] in Urine 0.0-1.8 [facility] Mucus [Presence] in Urine by AutomatedOrdered By: Dinah Sepulveda on 10-13-2024 Mucus Auto Ql (U) Mucus [Presence] in Urine by Automated [facility] Nitrite Test strip Ql (U)Ord ered By: Dinah Sepulveda on 10-13-2024 Nitrite Ql (U) Nitrite [Presence] i n Urine by Test strip Negative [facility] No Panel InformationOrdered By: Mathieu Naqvi on 10-13-2024 Estimated GFR (CKD-EPI) 34.741 mL/Min [facility] Creatinine Clearance (Chem N/A [facility] Parathyrin.intact [Mass/volu me] in Serum or PlasmaOrdered By: Dinah Sepulveda on 10-13-2024 Parathyrin.intact [Mass/Vol] Parathyrin.intact [Mass/volume] in Serum or Plasma High 12-88 [facility] Parathyroid Hormone Intacton 10-13-2024 Parathyroid Hormone Intact 224.1 pg/mL High 12-88 [facility] Comment on above: Result Comment: PERF ORMED BY: [facility] [address] [facility] [place] [id number] PATHOLOGIST RUNNING SPECIALIST NISHANT MORLEY M.D. Performed By: #### U JAMSHID, MG, PTH, CBCNO ####[facility] [id number] [place] [id number] [facility] Phosphate [Mass/volume] in S yoav or PlasmaOrdered By: Mathieu Naqvi on 10-13-2024 Phosphate [Mass/Vol] Phosphate [Mass/volume] in Serum or Plasma 2.5-4.5 [facility] Platelet mean volume Auto (B ld) [Entitic vol]Ordered By: Dinah Sepulveda on 10-13-2024 Platelet mean volume (Bld) [Entitic vol] Platelet mean volume [Entitic volume] in Blood by Automated count 6.3-10.7 [facility] Platelets Auto (Bld) [#/Vol] Ordered By: Dinah Sepulveda on 10-13-2024 Platelets (Bld) [#/Vol] Platelets [#/vol ume] in Blood by Automated count 150-450 [facility] Potassium [Moles/volume] in Serum or PlasmaOrdered By: Mathieu Naqvi on 10-13-2024 Potassium [Moles/Vol] Potassium [Moles/volume] in Serum or Plasma 3.5-5.1 [facility] Protein Creat Ratio Ur Rando mon 10-13-2024 Creatinine, Urine (Random) 76.00 mg/dL Normal [facility] Comment on above: Result Comment: No r eference range established Performed By: #### A JALEESA RAPHAEL, PROCRERAT ####[address] Performed By: #### U RMACRERAT ####[address] Protein (U) [Mass/Vol] 17 mg/dL High 0-9 [facility] Comment on above: Performed By: #### A JALEESA RAPHAEL, PROCRERAT ####[address] Urine Protein/Creatinine Ratio 224 mg/g{Cre} High 0-200 [facility] Comment on above: Result Comment: PERF ORMED BY: [facility] [address] [place] [address] PATHOLOGIST RUNNING SPECIALIST NISHANT MORLEY M.D. Performed By: #### A JALEESA RAPHAEL, PROCRERAT ####[address] Protein Test strip (U) [Mass /Vol]Ordered By: Dinah Sepulveda on 10-13-2024 Protein (U) [Mass/Vol] Protein [Mass/vol ume] in Urine by Test strip Negative [facility] Protein [Mass/volume] in Ser um or PlasmaOrdered By: Ponce Silvestre on 10-13-2024 Protein [Mass/Vol] Protein [Mass/volume ] in Serum or Plasma 6.4-8.9 [facility] Protein [Mass/volume] in Uri neOrdered By: Dinah Sepulveda on 10-13-2024 Protein (U) [Mass/Vol] Protein [Mass/vol ume] in Urine High 0-9 [facility] RBC Auto (Bld) [#/Vol]Ordere d By: Dinah Sepulveda on 10-13-2024 RBC (Bld) [#/Vol] Erythrocytes [#/volume] in Blood by Automated count 3.60-5.00 [facility] Renal Function Panelon 10-13 Albumin [Mass/Vol] 3.8 g/dL Normal 3.5-5.7 [facility] Comment on above: Performed By: #### V [id number], RENAL #### [facility] [address] [place] [id number] [place] Anion gap [Moles/Vol] 11.8 mmol/L Normal 6.0-15.0 [facility] Comment on above: Performed By: #### V [id number], RENAL #### [facility] [address] [place] [id number] [place] Calcium [Mass/Vol] 8.8 mg/dL Normal 8.6-10.3 [facility] Comment on above: Performed By: #### V [id number], RENAL #### [facility] [address] [place] [id number] [place] Chloride [Moles/Vol] 106 mmol/L Normal 98-107 [facility] Comment on above: Performed By: #### V [id number], RENAL #### [facility] [address] [place] [id number] [place] CO2 [Moles/Vol] 27.1 mmol/L Normal 21.0-31.0 [facility] Comment on above: Performed By: #### V [id number], RENAL #### [facility] [address] [place] [id number] [place] Creatinine [Mass/Vol] 1.59 mg/dL High 0.60-1.20 [facility] Comment on above: Performed By: #### V [id number], RENAL #### [facility] [address] [place] [address] [place] Estimated GFR 34.741 mL/Min Normal [facility] Comment on above: Performed By: #### V [id number], RENAL #### [facility] [address] [place] [address] [place] Glucose [Mass/Vol] 108 mg/dL High 70-100 [facility] Comment on above: Result Comment: [facility] Glucose Reference Range is dependent on time and content of last meal. Glucose of more than 200 mg/dL in a nonstressed, ambulatory subject supports the diagnosis of Diabetes Mellitus. ADA recommended reference range Performed By: #### V [id number], RENAL #### [facility] [address] Phosphate [Mass/Vol] 3.4 mg/dL Normal 2.5-4.5 [facility] Comment on above: Performed By: #### V [id number], RENAL #### [place] [address] [place] Potassium [Moles/Vol] 3.9 mmol/L Normal 3.5-5.1 [facility] Comment on above: Performed By: #### V [id number], RENAL #### [place] [address] [place] Sodium [Moles/Vol] 141 mmol/L Normal 136-145 [facility] Comment on above: Performed By: #### V [id number], RENAL #### [place] [address] [place] Urea nitrogen [Mass/Vol] 24 mg/dL Normal 7-25 [facility] Comment on above: Performed By: #### V [id number], RENAL #### [address] Serum or plasma albumin/glob ulin mass ratioOrdered By: Ponce Silvestre on 10-13-2024 Albumin/Globulin [Mass ratio] Serum or plasma albumin/globulin mass ratio [facility] Serum or plasma anion gap de terminationOrdered By: Mathieu Naqvi on 10-13-2024 Anion gap [Moles/Vol] Serum or plasma an ion gap determination 6.0-15.0 [facility] Serum or plasma non-glucuron idated bilirubin measurement (mass/volume)Ordered By: Ponce Silvestre on 10-13-2024 Bilirubin.indirect [Mass/Vol] Serum or plasma non-glucuronidated bilirubin measurement (mass/volume) [facility] Serum or plasma total choles terol/high density lipoprotein (HDL) cholesterol mass ratOrdered By: Mathieu Naqvi on 10-13-2024 Cholesterol.total/Vivian sterol in HDL [Mass ratio] Serum or plasma total cholesterol/high density lipoprotein (HDL) cholesterol mass rat <5.0 [facility] Sodium [Moles/volume] in Ser um or PlasmaOrdered By: Mathieu Naqvi on 10-13-2024 Sodium [Moles/Vol] Sodium [Moles/volume ] in Serum or Plasma 136-145 [facility] Specific gravity Test strip (U) [Rel density]Ordered By: Dinah Sepulveda on 10-13-2024 Specific gravity (U) [Rel density] Specific gravity of Urine by Test strip 1.001-1.030 [facility] Triglyceride [Mass/volume] i n Serum or PlasmaOrdered By: Mathieu Naqvi on 10-13-2024 Triglyceride [Mass/Vol] Triglyceride [Mass/volume] in Serum or Plasma 0-149 [facility] Comment on above: TRIG ATP III CLASSIF ICATIONTRIG less than 150 mg/dL NormalTRIG 150-199 mg/dL Borderline highTRIG 200-500 mg/dL High TRIG greater than 500 mg/dL Very highStandard traceable to the Center for Disease Conrtrol and Prevention (CDC) test method. Urate [Mass/volume] in Serum or PlasmaOrdered By: Dinah Sepulveda on 10-13-2024 Urate [Mass/Vol] Urate [Mass/volume] in Serum or Plasma High 2.3-6.6 [facility] Urea nitrogen [Mass/volume] in Serum or PlasmaOrdered By: Mathieu Naqvi on 10-13-2024 Urea nitrogen [Mass/Vol] Urea nitrogen [Mass/volume] in Serum or Plasma 7-25 [facility] Uric Acidon 10-13-2024 Urate [Mass/Vol] 7.7 mg/dL High 2.3-6.6 [facility] Comment on above: Result Comment: PERF ORMED BY: [place] [address] PATHOLOGIST RUNNING SPECIALIST NISHANT MORLEY M.D. Performed By: #### U JAMSHID, MG, PTH, CBCNO ####[facility] [id number] [place] [id number] [facility] Urine Cultureon 10-13-2024 Bacteria identified Cx Nom (U) >100,000 colonies/ml mixed bacterial skin contaminants 2 Days PERFORMED BY: [place] [address] PATHOLOGIST RUNNING SPECIALIST NISHANT MORLEY M.D. Normal [facility] Comment on above: Performed By: #### A JALEESA RAPHAEL, PROCRERAT ####[place] [id number] [facility] Urine cultureOrdered By: Summer Sepulveda on 10-13-2024 Bacteria identified Cx Nom (U) Urine culture [facility] Urine microalbumin/creatinin e mass ratioOrdered By: Mathieu Naqvi on 10-13-2024 Albumin/Creatinine DL <= 20 mg/L (U) [Mass ratio] Urine microalbumin/creatinin e mass ratio 0.0-30.0 [facility] Comment on above: 30-300 mg/g indicate s an increased risk for diabetic nephropathy. Greater than 300 mg/g is consistent with clinical nephropathy. (Am. J. Kidney Disease 1995, 25:107) Urine protein/creatinine rat ioOrdered By: Dinah Sepulveda on 10-13-2024 Protein/Creatinine (U) [Ratio] Urine protein/creatinine ratio High 0-200 [facility] Urobilinogen Test strip (U) [Mass/Vol]Ordered By: Dinah Sepulveda on 10-13-2024 Urobilinogen (U) [Mass/Vol] Urobilinogen [Mass/volume] in Urine by Test strip Normal [facility] Vitamin D 25 Hydroxy Totalon 10-13-2024 Vitamin D 25 Hydroxy Total 15.0 ng/mL Low 30-100 [facility] Comment on above: Result Comment: [place] MIN D STATUS 25(OH)VITAMIN D RANGE (ng/mL) Deficient <20 Insufficient 20 to <30 Sufficient 30 to 100 Reference: Luann Almanza, Merline FERRER, et al. Evaluation,treatment, and prevention of vitamin D deficiency; an Endocrine Society clinical practice guideline. JCEM. 2010; 96(7):191-. PERFORMED BY: [place] [address] PATHOLOGIST RUNNING SPECIALIST NISHANT MORLEY M.D. Performed By: #### V [id number], RENAL #### [address] Vitamin D+Metabolites [Mass/ volume] in Serum or PlasmaOrdered By: Mathieu Naqvi on 10-13-2024 Vitamin D+Metabolites [Mass/Vol] Vitamin D+Metabolites [Mass/volume] in Serum or Plasma Low 30-100 [facility] Comment on above: VITAMIN D STATUS 25( [place])VITAMIN D RANGE (ng/mL) Deficient <20 Insufficient 20 to <30Sufficient 30 to 100Reference: Luann Almanza, Merline FERRER, et al. Evaluation,treatment, and prevention of vitamin D deficiency; an Endocrine Society clinical practice guideline. JCEM. 2010; 96(7):1911-. pH Test strip (U)Ordered By: Dinah Sepulveda on 10-13-2024 pH (U) pH of Urine by Test strip 5.0-9.0 [facility] MR head/brain wo/w conon MR head/brain wo/w con [facility] Main [place] [address] [place] [address] MRI Report Signed Patient: Virgen Gonzales MR# : [id number] : 1955 Acct:[id number] Age/Sex: 69 / F ADM Date: 09/14/24 Loc: [facility] Room: Type: [facility] Attending Dr: Olman De La Rosa DO [...] Jacinto Gallagher M.D.09/14/2024 5:21 PM Dictation Location: [place] [address] Transcribed By: KATHIE 09/14/24 1721 Dictated By: Jacinto Gallagher II, MD 09/14/24 1714 Signed By: 09/14/24 1721 Normal [facility] Magnetic resonance imaging r eportOrdered By: Jacinto Gallagher on 09-14-2024 Study report [facility] [place] [address] MRI Report Signed Patient: Virgen Gonzales MR#: [id number] : 1955 Acct:[id number] Age/Sex: 69 / F ADM Date: 5 Loc: [facility] Room: Type: [facility] Attending Dr: Olman De La Rosa DO [...] Jacinto Gallagher M.D.09/14/2024 5:21 PM Dictation Location: [place] [address] Transcribed By: KATHIE 09/14/24 172 Dictated By: Jacinto Gallagher II, MD 09/14/24 1714 Signed By: 09/14/24 1721 [facility] Work Phone: X-ray reportOrdered By: Gareth Horn on 09-14-2024 Study report [facility] [place] [address] XRay Report Signed Patient: Virgen Gonzales MR#: [id number] : 1955 Acct:[id number] Age/Sex: 69 / F ADM Date: 5 Loc: ICXD Room: Type: REG CLI Attending Dr: Aretha Valadez [employer] Copies to: Aretha Valadez APRN~ Ordering Provider: [...] Jose Horn M.D.09/14/2024 8:40 PM Dictation Location: [place] [address] Transcribed By: [facility] 09/14/242039 Dictated By: Jose Horn DO 09/14/242034 Signed By: 09/14/242039 [facility] XR tibia fibula RT 2V*on XR tibia fibula RT 2V* [facility] [address] XRay Report Signed Patient: Virgen Gonzales MR# : [id number] : 1955 Acct:[id number] Age/Sex: 69 / F ADM Date: 09/14/24 Loc: XD Room: Type: REG CLI Attending Dr: Aretha Valadez [employer] Copies to: Aretha Valadez APRN Ordering Provider: [...] Jose Horn M.D.09/14/2024 8:40 PM Dictation [facility] Transcribed By: [facility] 09/14/242039 Dictated By: Jose Horn DO 09/14/242034 Signed By: 09/14/242039 Normal [facility] Ambulatory Visit Summaryon 0 [...] Kang BOSS MD Where: [facility] [address] [place] [address]- You Need to Schedule the Following Appointments Follow Up with Kang BOSS MD, URL When: In 6 months Comments: w/TOMEKA Where: [facility] [address], [place] [address]- Medications What How Much When Instructions Unchanged [...] lobo (more content not included)... Normal [facility] Ambulatory Visit Summary Ambulatory Visit Summary [...] Kang BOSS MD Where: [place] [address]- You Need to Schedule the Following Appointments Follow Up with Kang BSOS MD, URL When: In 6 months Comments: w/TOMEKA Where: [facility] [address], [place] [address]- Medications What How Much When Instructions Unchanged [...] or concerns Unchanged esomeprazole (Nexium 20 mg Kennedy-) 1 Capsules By Mouth Every day Contact [...] penicillins (Difficulty lobo (more content not included)... 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 [facility] EMG 2 ExtremitiesOrdered By: Olman De La Rosa on 09-03-2024 [facility] Work Phone: [place] 9-10 Nerveson 09-03-2024 [facility] Bilateral ulnar neuropathies, 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 [facility] XR Elbow - right 3 Viewson 0 08-31-2024 Imaging Result: Three views of the right elbow, AP/lateral/oblique, taken today and saved to the permanent medical record. Joint spaces are preserved, no swelling in the olecranon bursa, no spurring at the olecranon, no fat pad sign, no bony lesions [facility] Radiology Study observation (narrative) [facility] Office Visiton 08-20-2024 Follow-up visit [id number] Virgen Harris 1955 F Date Provider Department Center 08/20/2024 271-MARYANNE, PONCE CARD [facility] Family History Problem Relation Age of Onset Heart failure Mother Heart failure Father Heart failure Paternal Grandmother Family Status - Relation Status Age at Mother Father Paternal Grandmother Level of Service:14546 ID OFFICE/OUTPATIENT NEW LOW MDM 30 MINUTES Normal [facility] C Urineon 07-09-2024 Bacteria identified Cx [...] Locations R1: This test was performed at: [facility], [address] [place] [address], [address]- , [place], Normal [facility] Comment on above: Performed By: #### 2 [id number] #### [facility] [address] [place] [address] ED Note-Physicianon 07-09-20 24 ED Note-Physician ED [...] syncopal episode at work. Patient works at [employer] and states all of a sudden she [...] appl (more content not included)... Normal [facility] Comment on above: Result Comment: Elec tronically Signed By: Kelly Smith PA-C\.br\Date and Time Signed: 07/08/24 02:10 EST\.br\Electronically Co-Signed By: Ean Azevedo M.D.\.br\Date and Time Co-Signed: 07/09/24 07:05 EST ABO/Rh History Checkon 07-08 ABO/Rh History Check Patient discharged prior Normal [facility] Comment on above: Performed By: #### 1 [id number] #### [facility] [address] [place] [address] CT Abdomen/Pelvis w/ Contras ton 07-08-2024 CT [...] Contrast amount in ml's: 130 Normal [facility] CT Chest w/ Contraston 07-08 CT [...] Contrast amount in ml's: 130 Normal [facility] CT Head or Brain w/o [...] Montague MD Transcribed by: JOSH Technologist: YONIS [facility] CT Spine Cervical w/o Contra [...] Transcribed by: JOSH Technologist: YONIS Normal [facility] ABO/Rhon 07-07-2024 ABO/Rh Positive Invalid Interpretation Code [facility] Comment on above: Performed By: #### 2 [id number] #### [facility] [address] [place] [address] ABSCon 07-07-2024 ABSC Gel Interp Negative Normal [facility] Comment on above: Performed By: #### 1 [id number] #### [facility] [address] [place] [address] B hCG Qualon 07-07-2024 Beta HCG ( test) Ql Negative Normal [facility] Comment on above: Performed By: #### 2 [id number] #### [facility] [address] [place] [address] BLOOD BANKOrdered By: Willard Greenwood on 07-07-2024 ABO/Rh Interp Positive Invalid Interpretation Code [facility] BB Subsection ABSC Gel Interp Negative (07/07/24 6:48 PM) Normal [facility] BB Subsection BMPon 07-07-2024 Anion gap [Moles/Vol] 11 mmol/L Normal 6-16 [facility] Comment on above: Performed By: #### 2 [id number] #### [facility] [address] [place] [address] Calcium [Mass/Vol] 9.1 mg/dL Normal 8.9-11.1 [facility] Comment on above: Performed By: #### 2 [id number] #### [facility] [address] [place] [address] Chloride [Moles/Vol] 104 mmol/L Normal 101-111 [facility] Comment on above: Performed By: #### 2 [id number] #### [facility] [address] [place] [address] CO2 [Moles/Vol] 26 mmol/L Normal 21-31 [facility] Comment on above: Performed By: #### 2 [id number] #### [facility] [address] [place] [address] Creatinine [Mass/Vol] 1.8 mg/dL High 0.5-1.3 [facility] Comment on above: Performed By: #### 2 [id number] #### [facility] [address] [place] [address] Glucose [Mass/Vol] 154 mg/dL Normal 55-199 [facility] Comment on above: Performed By: #### 2 [id number] #### [facility] [address] [place] [address] Potassium [Moles/Vol] 3.6 mmol/L Normal 3.5-5.3 [facility] Comment on above: Performed By: #### 2 [id number] #### [facility] [address] [place] [address] Sodium [Moles/Vol] 137 mmol/L Normal 135-145 [facility] Comment on above: Performed By: #### 2 [id number] #### [facility] [address] [place] [address] Urea nitrogen [Mass/Vol] 23 mg/dL High 5-21 [facility] Comment on above: Performed By: #### 2 [id number] #### [facility] [address] [place] [address] Urea nitrogen/Creatinine [Mass ratio] 13 No Units Normal 10-20 [facility] Comment on above: Performed By: #### 2 [id number] #### [facility] [address] [place] [address] Blood Bank ID#on 07-07-2024 BBID# [id number] Invalid Interpretation Code [facility] Comment on above: Performed By: #### 1 [id number] #### [facility] [address] [place] [address] CBC w/ Auto Diffon 4 Basophils/100 WBC (Bld) 0.6 % Normal 0.0-2.0 [facility] Comment on above: Result Comment: Amy ection date/time has been modified to: 18:23:00. Previous collection date/time: 18:45:00. Performed By: #### 2 [id number] #### [facility] [address] [place] [address] Basophils/Leukocytes Auto (Bld) [Pure # fraction] 0.1 E9/L Normal 0.0-0.2 [facility] Comment on above: Result Comment: Amy ection date/time has been modified to: 18:23:00. Previous collection date/time: 18:45:00. Performed By: #### 2 [id number] #### [facility] [address] [place] [address] Eosinophils (Bld) [#/Vol] 0.3 E9/L Normal 0.0-0.5 [facility] Comment on above: Result Comment: Amy ection date/time has been modified to: 18:23:00. Previous collection date/time: 18:45:00. Performed By: #### 2 [id number] #### [facility] [address] [place] [address] Eosinophils/100 WBC (Bld) 3.1 % Normal 0.0-8.0 [facility] Comment on above: Result Comment: Amy ection date/time has been modified to: 18:23:00. Previous collection date/time: 18:45:00. Performed By: #### 2 [id number] #### [facility] [address] [place] [address] Erythrocyte distribution width (RBC) [Ratio] 15.1 % High 10.9-14.2 [facility] Comment on above: Result Comment: Amy ection date/time has been modified to: 18:23:00. Previous collection date/time: 18:45:00. Performed By: #### 2 [id number] #### [facility] [address] [place] [address] Hematocrit (Bld) [Volume fraction] 38.3 % Normal 34.0-46.0 [facility] Comment on above: Result Comment: Amy ection date/time has been modified to: 18:23:00. Previous collection date/time: 18:45:00. Performed By: #### 2 [id number] #### [facility] [address] [place] [address] Hemoglobin (Bld) [Mass/Vol] 12.7 g/dL Normal 12.0-16.0 [facility] Comment on above: Result Comment: Amy ection date/time has been modified to: 18:23:00. Previous collection date/time: 18:45:00. Performed By: #### 2 [id number] #### [facility] [address] [place] [address] Lymphocytes (Bld) [#/Vol] 2.4 E9/L Normal 1.0-4.0 [facility] Comment on above: Result Comment: Amy ection date/time has been modified to: 18:23:00. Previous collection date/time: 18:45:00. Performed By: #### 2 [id number] #### [facility] [address] [place] [address] Lymphocytes/100 WBC (Bld) 26.6 % Normal 14.0-50.0 [facility] Comment on above: Result Comment: Amy ection date/time has been modified to: 18:23:00. Previous collection date/time: 18:45:00. Performed By: #### 2 [id number] #### [facility] [address] [place] [address] MCH (RBC) [Entitic mass] 29.9 pg Normal 27.0-34.0 [facility] Comment on above: Result Comment: Amy ection date/time has been modified to: 18:23:00. Previous collection date/time: 18:45:00. Performed By: #### 2 [id number] #### [facility] [address] [place] [address] MCHC (RBC) [Mass/Vol] 33.1 g/dL Normal 31.4-36.0 [facility] Comment on above: Result Comment: Amy ection date/time has been modified to: 18:23:00. Previous collection date/time: 18:45:00. Performed By: #### 2 [id number] #### [facility] [address] [place] [address] MCV (RBC) [Entitic vol] 90.2 fL Normal 80.0-100.0 F [facility] Comment on above: Result Comment: Amy ection date/time has been modified to: 18:23:00. Previous collection date/time: 18:45:00. Performed By: #### 2 [id number] #### [facility] [address] [place] [address] Monocytes (Bld) [#/Vol] 0.5 E9/L Normal 0.2-1.0 [facility] Comment on above: Result Comment: Amy ection date/time has been modified to: 18:23:00. Previous collection date/time: 18:45:00. Performed By: #### 2 [id number] #### [facility] [address] [place] [address] Neutrophils (Bld) [#/Vol] 5.8 E9/L Normal 2.0-7.5 [facility] Comment on above: Result Comment: Amy ection date/time has been modified to: 18:23:00. Previous collection date/time: 18:45:00. Performed By: #### 2 [id number] #### [facility] [address] [place] [address] Neutrophils/100 WBC (Bld) 64.2 % Normal 36.0-75.0 [facility] Comment on above: Result Comment: Amy ection date/time has been modified to: 18:23:00. Previous collection date/time: 18:45:00. Performed By: #### 2 [id number] #### [facility] [address] [place] [address] Platelet mean volume (Bld) [Entitic vol] 10.1 fL Normal 6.4-10.8 [facility] Comment on above: Result Comment: Amy ection date/time has been modified to: 18:23:00. Previous collection date/time: 18:45:00. Performed By: #### 2 [id number] #### [facility] [address] [place] [address] Platelets (Bld) [#/Vol] 183.0 E9/L Normal 150.0-500.0 [facility] Comment on above: Result Comment: Amy ection date/time has been modified to: 18:23:00. Previous collection date/time: 18:45:00. Performed By: #### 2 [id number] #### [facility] [address] [place] [address] RBC (Bld) [#/Vol] 4.2 E12/L Low 4.3-5.9 [facility] Comment on above: Result Comment: Amy ection date/time has been modified to: 18:23:00. Previous collection date/time: 18:45:00. Performed By: #### 2 [id number] #### [facility] [address] [place] [address] WBC corrected for nucl RBC Auto (Bld) [#/Vol] 9.1 E9/L Normal 4.0-11.0 [facility] Comment on above: Result Comment: Amy ection date/time has been modified to: 18:23:00. Previous collection date/time: 18:45:00. Performed By: #### 2 [id number] #### [facility] [address] [place] [address] Basophils/100 WBC (Bld) 0.6 % Normal 0.0-2.0 [facility] Comment on above: Performed By: #### 2 [id number] #### [facility] [address] [place] [address] Basophils/Leukocytes Auto (Bld) [Pure # fraction] 0.1 E9/L Normal 0.0-0.2 [facility] Comment on above: Performed By: #### 2 [id number] #### [facility] [address] [place] [address] Eosinophils (Bld) [#/Vol] 0.3 E9/L Normal 0.0-0.5 [facility] Comment on above: Performed By: #### 2 [id number] #### [facility] [address] [place] [address] Eosinophils/100 WBC (Bld) 3.1 % Normal 0.0-8.0 [facility] Comment on above: Performed By: #### 2 [id number] #### [facility] [address] [place] [address] Erythrocyte distribution width (RBC) [Ratio] 15.1 % High 10.9-14.2 [facility] Comment on above: Performed By: #### 2 [id number] #### [facility] [address] [place] [address] Hematocrit (Bld) [Volume fraction] 38.3 % Normal 34.0-46.0 [facility] Comment on above: Performed By: #### 2 [id number] #### [facility] [address] [place] [address] Hemoglobin (Bld) [Mass/Vol] 12.7 g/dL Normal 12.0-16.0 [facility] Comment on above: Performed By: #### 2 [id number] #### [facility] [address] [place] [address] Lymphocytes (Bld) [#/Vol] 2.4 E9/L Normal 1.0-4.0 [facility] Comment on above: Performed By: #### 2 640224 #### [facility] [address] [place] [address] Lymphocytes/100 WBC (Bld) 26.6 % Normal 14.0-50.0 [facility] Comment on above: Performed By: #### 2 868784 #### [facility] [address] [place] [address] MCH (RBC) [Entitic mass] 29.9 pg Normal 27.0-34.0 [facility] Comment on above: Performed By: #### 2 [id number] #### [facility] [address] [place] [address] MCHC (RBC) [Mass/Vol] 33.1 g/dL Normal 31.4-36.0 [facility] Comment on above: Performed By: #### 2 [id number] #### [facility] [address] [place] [address] MCV (RBC) [Entitic vol] 90.2 fL Normal 80.0-100.0 [facility] Comment on above: Performed By: #### 2 [id number] #### [facility] [address] [place] [address] Monocytes (Bld) [#/Vol] 0.5 E9/L Normal 0.2-1.0 [facility] Comment on above: Performed By: #### 2 857163 #### [facility] [address] [place] [address] Neutrophils (Bld) [#/Vol] 5.8 E9/L Normal 2.0-7.5 [facility] Comment on above: Performed By: #### 2 143219 #### [facility] [address] [place] [address] Neutrophils/100 WBC (Bld) 64.2 % Normal 36.0-75.0 [facility] Comment on above: Performed By: #### 2 [id number] #### [facility] [address] [place] [address] Platelet mean volume (Bld) [Entitic vol] 10.1 fL Normal 6.4-10.8 [facility] Comment on above: Performed By: #### 2 257203 #### [facility] [address] [place] [address] Platelets (Bld) [#/Vol] 183.0 E9/L Normal 150.0-500.0 [facility] Comment on above: Performed By: #### 2 [id number] #### [facility] [address] [place] [address] RBC (Bld) [#/Vol] 4.2 E12/L Low 4.3-5.9 [facility] Comment on above: Performed By: #### 2 [id number] #### [facility] [address] [place] [address] WBC corrected for nucl RBC Auto (Bld) [#/Vol] 9.1 E9/L Normal 4.0-11.0 [facility] Comment on above: Performed By: #### 2 407647 #### [facility] [address] [place] [address] CHEMISTRYOrdered By: SYSTEM SYSTEM on 07-07-2024 Amphetamines [...] Comment on above: Performed By: #### 2 [id number] #### [facility] [address] [place] [address] COAGULATIONOrdered By: Leslie barragan Scott on 07-07-2024 aPTT Coag (PPP) [Time] 31.1 s Normal 25.1 - 36.5 second(s) [facility] Auto Coag Comment on above: Interpretive Data: [...] the same coagulation reagent and instrumentation as [facility]. Currently there are no coagulation studies available worldwide for children to 14 days, and no normal ranges. Heparin therapeutic range (represented by Anti-Factor Xa activity of 0.2 - 0.4 U/mL) corresponds to PTT of 56.6 - 109.0 sec. INR Coag (PPP) [Relative time] 0.92 {INR} Invalid Interpretation Code [facility] Auto Coag Comment on above: Interpretive Data: I NR results are specifically intended to assess patients stabilized on long-term Anticoagulation therapy suggested INR s Less Intensive Anticoagulation 2.0 3.0 Conventional Range 3.0 4.5 PT Coag (PPP) [Time] 10.3 s Normal 9.4 - 1 2.5 second(s) [facility] Auto Coag Comment on above: Interpretive Data: [...] the same coagulation reagent and instrumentation as [facility]. Currently there are no coagulation studies available worldwide for children to 14 days, and no normal ranges. ED Clinical Summaryon 2023 ED Clinical Summary ED Clinical Summary [place] [address] ED Clinical Summary Person Information Name: VIRGEN GONZALES [facility] Age: 68 Years : 1955 Sex: Female Language: Djiboutian PCP: AGGIE DAVIS CNP Marital Status: Visit [...] 07/07/2024 22:29:17 07/07/2024 22:29:17 07/07/2024 22:29:17 ADDRESS: [address] [place] [address] [facility] [id number] PHYS DOC NOTES: MEDICAL INFORMATION: Prescriptions Given: New Medications [facility] 1987, [address] [place], [place] [id number], [phone] cephalexin (cephalexin 500 mg Cap) 1 Capsules [...] EDUCATION INFORMATION: Instructions: Urinary Tract Infection, Adult, Bklu-py-Rzxf; Syncope, Adult, Imlf-su-Xkxd; Head Injury, Adult, Bxyi-fq-Nnyh; Contusion, Sfgz-bj-Npdd Follow up: With: Address: When: AGGIE DAVIS [address] [place] [address] [phone] [employer] (more content not included)... Normal [facility] ED Patient Summaryon 024 ED Patient Summary ED Patient Summary [id number] Patient Discharge Instructions Person Information Name: VIRGEN GONZALES Age: 68 Years Arrival Date: 07/07/2024 18:16:48 Discharge Diagnosis: 1:Contusion of occipital region of scalp; 2:Syncope and collapse; 3:Acute lower urinary tract infection Primary Care Physician: AGGIE DAVIS CNP Provider Information Primary Provider: Tiny Fallon DO Advanced Fashion Intern:None The exam and treatment you received in the Emergency Department were for an urgent problem and are not intended as complete care. It is important that you follow up with a doctor, nurse practitioner, or physician???s dental assistant medical assistant for ongoing care. If your symptoms become worse or you do not improve as expected and you are unable to reach your usual health care provider, you should return to the Emergency Department. We are available 24 hours a day. VIRGEN GONZALES Ramiro has been given the following list of patient education materials, prescriptions and follow-up instructions: Follow-up Instructions: With: Address: When: AGGIE DAVIS [address] [place] [address] [phone] Business (1) In 3 days 07/10/2024 In the event that this physician does not participate in your insurance network, please consult with your insurance company to find a nearby participating provider. Patient Education Materials: Urinary Tract Infection, Adult, Fjox-rt-Iakh; Syncope, Adult, Efnw-qj-Ruus; Head Injury, Adult, Xsgj-hg-Beyr; Contusion, Eqcv-nb-Quui A MESSAGE TO ALL PATIENTS REGARDING OPIOIDS PRESCRIPTION OPIOIDS: WHAT YOU NEED TO KNOW Prescription opioids can be used to help relieve anwxjyeg-xo-jecaya pain and are often prescribed following a [...] ourcesFo (more content not included)... Normal [facility] Ethanolon 07-07-2024 Ethanol Lvl <10 Normal <=11 [facility] Comment on above: Performed By: #### 2 [id number] #### [facility] [facility] [address] [place] [address] HEMATOLOGYOrdered By: SYSTEM SYSTEM on 07-07-2024 Basophils/100 [...] to: 18:23:00. Previous collection date/time: 18:45:00. Hep Fun Panelon 07-07-2024 Albumin [Mass/Vol] 3.9 g/dL Normal 3.3-5.0 [facility] Comment on above: Performed By: #### 2 [id number] #### [facility] [address] [place] [address] Albumin/Globulin (S) [Mass conc ratio] 1.4 Normal 1.1-2.2 [facility] Comment on above: Performed By: #### 2 [id number] #### [facility] [address] [place] [address] ALP [Catalytic activity/Vol] 112 Int._Unit/L High 21-98 [facility] Comment on above: Performed By: #### 2 [id number] #### [facility] [address] [place] [address] ALT No additional P-5'-P [Catalytic activity/Vol] 11 Int._Unit/L Normal 6-46 [facility] Comment on above: Performed By: #### 2 [id number] #### [facility] [address] [place] [address] AST [Catalytic activity/Vol] 13 Int._Unit/L Normal 5-43 [facility] Comment on above: Performed By: #### 2 [id number] #### [facility] [address] [place] [address] Bilirubin [Mass/Vol] 0.4 mg/dL Normal 0.0-1.1 [facility] Comment on above: Performed By: #### 2 [id number] #### [facility] [address] [place] [address] Bilirubin.direct [Mass/Vol] 0.1 mg/dL Normal 0.0-0.4 [facility] Comment on above: Performed By: #### 2 [id number] #### [facility] [address] [place] [address] Bilirubin.indirect [Mass or moles/Vol] 0.3 mg/dL Normal 0.1-0.9 [facility] Comment on above: Performed By: #### 2 [id number] #### [facility] [address] [place] [address] Globulin (S) [Mass/Vol] 2.8 g/dL Normal 1.4-4.0 [facility] Comment on above: Performed By: #### 2 [id number] #### [facility] [address] [place] [address] Protein [Mass/Vol] 6.7 g/dL Normal 6.0-7.8 [facility] Comment on above: Performed By: #### 2 [id number] #### [facility] [address] [place] [address] Lactic Acidon 07-07-2024 Lactic Acid Lvl 0.9 mmol/L Normal 0.5-2.2 [facility] Comment on above: Performed By: #### 2 [id number] #### [facility] [address] [place] [address] Lipase Levelon 07-07-2024 Lipase [Catalytic activity/Vol] 22 U/L Normal 13-58 [facility] Comment on above: Performed By: #### 2 [id number] #### [facility] [address] [place] [address] Magnesiumon 07-07-2024 Magnesium [Mass/Vol] 2.2 mg/dL Normal 1.3-2.4 [facility] Comment on above: Performed By: #### 2 [id number] #### [facility] [address] [place] [address] Myoglobinon 07-07-2024 Myoglobin [Mass/Vol] 128 ng/mL High <=69 [facility] Comment on above: Performed By: #### 2 [id number] #### [facility] [address] [place] [address] PT & PTTon 07-07-2024 aPTT Coag (PPP) [Time] 31.1 second(s) Normal 25.1-36.5 [facility] Comment on above: Result Comment: Para [...] the same coagulation reagent and instrumentation as [facility]. Currently there are no coagulation studies available worldwide for children to 14 days, and no normal ranges. Heparin therapeutic range (represented by Anti-Factor Xa activity of 0.2 - 0.4 U/mL) corresponds to PTT of 56.6 - 109.0 sec. Performed By: #### 1 [id number] #### [facility] [address] [place] [address] INR Coag (PPP) [Relative time] 0.92 {INR} Invalid Interpretation Code [facility] Comment on above: Result Comment: INR results are specifically intended to assess patients stabilized on long-term Anticoagulation therapy suggested INR???s ???Less Intensive Anticoagulation??? 2.0 ??? 3.0 Conventional Range 3.0 ??? 4.5 Performed By: #### 1 [id number] #### [facility] [address] [place] [address] PT Coag (PPP) [Time] 10.3 second(s) Normal 9.4-12.5 [facility] Comment on above: Result Comment: 15 [...] the same coagulation reagent and instrumentation as [facility]. Currently there are no coagulation studies available worldwide for children to 14 days, and no normal ranges. Performed By: #### 1 [id number] #### [facility] [address] [place] [address] SEROLOGYOrdered By: Gerri Chavez on 07-07-2024 Beta HCG ( test) Ql Negative (07/07/24 6:23 PM) Normal [facility] Man Sero Troponinon 07-07-2024 Troponin HS 10.70 pg/mL Normal 10.10-27.10 [facility] Comment on above: Result Comment: The 95% CI (Confidence Interval) PPV (Positive Predictive Value) for myocardial infarction in females is 38 pg/mL, in males 51 pg/mL. The results should be used in conjunction with clinical conditions of myocardial infarction. (Access High Sensitivity Troponin I Instructions For Use, Lalito Mister Mario, February 2018) Performed By: #### 2 [id number] #### [facility] [address] [place] [address] U Drug Screenon 07-07-2024 Amphetamines Screen method >1000 ng/mL Ql (U) Negative Normal NEGATIVE [facility] Comment on above: Result Comment: Nega tive Cutoff: <1000 ng/mL Performed By: #### 2 [id number] #### [facility] [address] [place] [address] Barbiturates Screen Ql (U) Negative Normal NEGATIVE [facility] Comment on above: Result Comment: Nega tive Cutoff: <200 ng/mL Performed By: #### 2 [id number] #### [facility] [address] [place] [address] Benzodiazepines Ql (U) Negative Normal NEGATIVE Fi [facility] Comment on above: Result Comment: Nega tive Cutoff: <200 ng/mL Performed By: #### 2 [id number] #### [facility] [address] [place] [address] Cannabinoids Screen Ql (U) Negative Normal NEGATIVE [facility] Comment on above: Result Comment: Nega tive Cutoff: <50 ng/mL Performed By: #### 2 [id number] #### [facility] [address] [place] [address] Cocaine Ql (U) Negative Normal NEGATIVE [facility] Comment on above: Result Comment: Nega tive Cutoff: <300 ng/mL Performed By: #### 2 [id number] #### [facility] [address] [place] [address] Opiates Screen Ql (U) Negative Normal NEGATIVE [facility] Comment on above: Result Comment: Nega tive Cutoff: <300 ng/mL Performed By: #### 2 [id number] #### [facility] [address] [place] [address] Phencyclidine Screen method >25 ng/mL Ql (U) Negative Normal NEGATIVE [facility] Comment on above: Result Comment: Nega tive Cutoff: <25 ng/mL These drug screen results are to be used for medical (i.e., treatment) purposes only. Unconfirmed drug screening results must not be used for non-medical purposes (e.g., employment testing, legal testing). Performed By: #### 2 [id number] #### [facility] [address] [place] [address] U Fentanyl Negative Normal NEGATIVE [facility] Comment on above: Result Comment: Nega tive Cutoff: <5 ng/mL These drug screen results are to be used for medical (i.e., treatment) purposes only. Unconfirmed drug screening results must not be used for non-medical purposes (e.g., employment testing, legal testing). Performed By: #### 2 [id number] #### [facility] [address] [place] [address] UA with Cult Rflxon 07-07-20 24 Bacteria Auto Ql (U) 1+ /HPF Abnormal Trace [facility] Comment on above: Performed By: #### 4 [id number] #### [facility] [address] [place] [address] Bilirubin Ql (U) Negative Normal Negative [facility] Comment on above: Performed By: #### 4 [id number] #### [facility] [address] [place] [address] Clarity (U) Ex.Turbid Abnormal Clear [facility] Comment on above: Performed By: #### 4 [id number] #### [facility] [address] [place] [address] Color (U) Light[place] Abnormal Yellow [facility] Comment on above: Result Comment: Micr oscopic readings are only performed on those samples that meet specific criteria set forth by [facility]. Performed By: #### 4 [id number] #### [facility] [address] [place] [address] Epithelial cells.squamous Auto (Urine sed) [#/Area] >10 Invalid Interpretation Code [facility] Comment on above: Performed By: #### 4 [id number] #### [facility] [address] [place] [address] Glucose Ql (U) 4+ mg/dL Abnormal Negative [facility] Comment on above: Performed By: #### 4 [id number] #### [facility] [address] [place] [address] Hemoglobin Auto test strip (U) [Mass/Vol] 1+ mg/dL Abnormal Negative [facility] Comment on above: Performed By: #### 4 [id number] #### [facility] [address] [place] [address] Ketones Auto test strip Ql (U) Negative Normal Negative [facility] Comment on above: Performed By: #### 4 [id number] #### [facility] [address] [place] [address] Leukocyte esterase Auto test strip Ql (U) 500 Isidoro/uL Abnormal Negative [facility] Comment on above: Performed By: #### 4 [id number] #### [facility] [address] [place] [address] Mucus Auto Ql (U) Negative Normal Negative [facility] Comment on above: Performed By: #### 4 [id number] #### [facility] [address] [place] [address] Nitrite Auto test strip Ql (U) Negative Normal Negative [facility] Comment on above: Performed By: #### 4 [id number] #### [facility] [address] [place] [address] pH (U) 6.5 [pH] Invalid Interpretation Code 5.0-9.0 [facility] Comment on above: Performed By: #### 4 [id number] #### [facility] [address] [place] [address] Protein Ql (U) Trace Abnormal Negative [facility] Comment on above: Performed By: #### 4 [id number] #### [facility] [address] [place] [address] RBC Ql (U) - Abnormal 0-3 [facility] Comment on above: Performed By: #### 4 [id number] #### [facility] [address] [place] [address] Specific gravity (U) [Rel density] 1.019 Invalid Interpretation Code 1.005-1.030 [facility] Comment on above: Performed By: #### 4 [id number] #### [facility] [address] [place] [address] Urobilinogen (U) [Mass/Vol] Negative Normal Negative [facility] Comment on above: Performed By: #### 4 [id number] #### [facility] [address] [place] [address] WBC Auto (Urine sed) [#/Area] 31-75 Abnormal 0-5 [facility] Comment on above: Performed By: #### 4 [id number] #### [facility] [address] [place] [address] Yeast.budding Computer assisted Ql (U) Trace Abnormal [facility] Comment on above: Performed By: #### 4 [id number] #### [facility] [address] [place] [address] Type of Urine collection method Clean Catch Normal [facility] Comment on above: Performed By: #### 4 [id number] #### [facility] [address] [place] [address] URINALYSISOrdered By: SYSTEM SYSTEM on 07-07-2024 Bacteria Auto Ql (U) 1+ /HPF Invalid Interpretation Code Trace/HPF [facility] UA Auto SS Bilirubin Ql (U) Negative Normal Negativemg/ dL [facility] UA Auto SS Clarity (U) Ex.Turbid *ABN* (07/07/24 7:41 PM) Invalid Interpretation Code Clear [facility] UA Auto SS Color (U) Light-[place] 3 *ABN* (07/07/24 7:41 PM) Invalid Interpretation Code Yellow [facility] UA Auto SS Comment on above: Interpretive Data: M icroscopic readings are only performed on those samples that meet specific criteria set forth by [facility]. Epithelial cells.squamous Auto (Urine sed) [...] 31-75 graded/HPF Invalid Interpretation Code 0-5graded/H PF [facility] UA Auto SS Yeast.budding Computer assisted Ql (U) Trace graded/HPF Invalid Interpretation Code [facility] UA Auto SS URINALYSISOrdered By: Gloria Smith on 07-07-2024 UA Spec Desc Clean Catch (07/07/24 7:41 PM) Normal [facility] UA Auto SS Work Phone: eGFRon 07-07-2024 eGFR 30 mL/min/1.73 m2 Low >=59 [facility] Comment on above: Performed By: #### 1 [id number] #### [facility] [address] [place] [address] Kobe 04-13-2024 L Specimen: [id number] Received: 04/15/24 Status: ROSALINALyudmila Navarro Num: [id number] Spec Type: Cytology Subm Dr: Da Phillip DO Tissues: A FNA SLIDES NOPATH (RT THYR) B FNA SLIDES NOPATH (THY ISTHM) Procedures: Cyto Int and Re/2, PAPSTN/22 Age/ Patient Sex Location Account Attending Physician Virgen Gonzales 68/F [place] [id number] Da Phillip DO SPEC NUM: [id number] RECD: 04/15/24 STATUS: ANIRUDH LUPE NUM: [id number] AMY: 04/13/[address]: Da Phillip DO ENTERED: 04/15/[address] [facility] DR: SPEC TYPE: Cytology DEPT: CNG ENTERED BY: [id number] RECV BY: [id number] ORDERED: Cyto Int and Re/2, PAPSTN/22 ORDERED: Cyto Int and Re/2, PAPSTN/22 Supplemental Report Addendum 2 Entered: 05/11/24-1013 Supplemental to correct the specimen type of Part B specimen, without a change of initial diagnosis Corrected specimen type B, Isthmus thyroid nodule, FNA cytology: Addendum Signed (signature on file) Noemy De Los Santos MD 05/11/24 1013 ---- Addendum 1 Entered: 05/11/24 Supplemental for findings of [facility]ITAL[facility]IC SEQUENCING LANG INTERPRETER: -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 -Benign (risk of malignancy 4%) ---- Specimen: [id number] Received: 04/15/24 Status: ANIRUDH Navarro Num: [id number] Spec Type: Cytology Subm Dr: Da Phillip DO Tissues: A FNA SLIDES NOPATH (RT THYR) B FNA SLIDES NOPATH (THY ISTHM) Procedures: Cyto Int and Re/2, PAPSTN/22 ---- Patient: Virgen Gonzales [id number] (Continued) ---- Specimen: [id number] Received: 04/15/24 (Continued) Supplemental Report (Continued) Signed (signature on file) Noemy De Los Santos MD 04/21/24 1010 ---- Specimen: [id number] Received: 04/15/24 Status: ROSALINALyudmila Navarro Num: [id number] Spec Type: Cytology Subm Dr: Da Phillip DO Tissues: A FNA SLIDES NOPATH (RT THYR) B FNA SLIDES NOPATH (THY ISTHM) Procedures: Cyto Int and Re/2, PAPSTN/22 ---- Patient: Vrigen Gonzales [id number] (Continued) ---- Specimen: [id number] Received: 04/15/24 (Continued) Supplemental Report (Continued) -Xpression Liguori -N/A -Other Classifiers -BRAF: Negative -RET/PTC1: Not [...] atypia of undetermined significance, the category 3 [place] system -Pending additional molecular triage study to follow B, instruments thyroid nodule, FNA cytology: -A few follicular cells are present in combined smears, including occasional small and/or loose follicular groups, adequately for assessment, often showing small round to ovoid nuclei, consistent with the category 2 [place] system: Benign ---- Specimen: [id number] Received: 04/15/24 Status: ANIRUDH Navarro Num: [id number] Spec Type: Cytology Subm Dr: aD Phillip,DO Tissues: A FNA SLIDES NOPATH (RT THYR) B FNA SLIDES NOPATH (THY ISTHM) Procedures: Cyto Int and Re/2, PAPSTN ---- Patient: Virgen Gonzales [id number] (Continued) ---- Specimen: [id number] Received: 04/15/24 (Continued) Signed (signature on file) Noemy De Los Santos MD 04/21/24 1010 ---- Specimen: [id number] Received: 04/15/24 Status: ANIRUDH Lupe Num: [id number] Spec Type: Cytology Subm Dr: Da Phillip,DO Tissues: A FNA SLIDES NOPATH (RT THYR) B FNA SLIDES N (more content not included)... Normal [facility] Thyrotropin [Units/volume] i n Serum or PlasmaOrdered By: Da Phillip on 03-26-2024 TSH Qn 1.31 m[IU]/L Normal 0.45-5.33 [facility] Comment on above: Result Comment: PERF ORMED BY: [facility] [address] [place] [address] PATHOLOGIST RUNNING SPECIALIST JENNIFER HERNANDEZ M.D. Performed By: #### T 3T, T4T, TSH3 ####[facility] Hhq[address] Thyroxine (T4) [Mass/volume] in Serum or PlasmaOrdered By: Da Phillip on 03-26-2024 T4 [Mass/Vol] 9.37 ug/dL Normal 5.39-11.82 [facility] Comment on above: Performed By: #### T 3T, T4T, TSH3 #### [facility] [address] Triiodothyronine (T3) Totalo n 03-26-2024 Triiodothyronine (T3) Total 0.90 ng/mL Normal 0.87-1.78 [facility] Comment on above: Performed By: #### T 3T, T4T, TSH3 #### [facility] [address] Triiodothyronine (T3) [Mass/ volume] in Serum or PlasmaOrdered By: Da Phillip on 03-26-2024 T3 [Mass/Vol] 0.90 ng/mL 0.87-1.78 [facility] Kobe 02-14-2024 L Specimen: [id number] Received: 02/17/24 Status: SOUT Req Num: [id number] Spec Type: Cytology Subm Dr: Aggie Davis CNP Tissues: A FNA SLIDES NOPATH (RT THYROID NOD) B FNA SLIDES NOPATH (ISTHMUS THY) Procedures: Cyto Int and Re/2, PAPSTN/10 Age/ Patient Sex Location Account Attending Physician Virgen Gonzales 68/F [place]ELL [id number] Aggie Davis CNP SPEC NUM: [id number] RECD: 02/17/24 STATUS: SOUT REQ NUM: [id number] AMY: 02/14/24 DR: Aggie Davis CNP ENTERED: 02/17/[address]: Oliver Arroyo MD SPEC TYPE: Cytology DEPT: POP [place] ENTERED BY: [id number] RECV BY: [id number] ORDERED: Cyto Int and Re/2, PAPSTN/10 ORDERED: Cyto Int and Re/2, PAPSTN/10 Pathological Diagnosis A. Right thyroid,?fine needle aspiration:? Suspicious for follicular neoplasm, Atypical Follicular Cells With Abundant Colloid. [place] Category IV B. Isthmus, fine needle aspiration:? Unsatisfactory for evaluation. Too few epithelial cells. [place]?Category?I Clinical Information Thyroid Nodules Gross Description A. (RIGHT) Received fixed in Cytolyt is <1 ml very pale pink clear fluid for cytology said to have been obtained as right thyroid nodule-mid . ThinPrep preparations are prepared for microscopic examination. Also received are 4 spray fixed smeared slides to be stained pap aa Veracyte vial stored at -20 for microscopic examination.([place]/va) B. (ISTHMUS) Received fixed in Cytolyt is (1 ml pink clear fluid for cytology said to have ---- Specimen: [id number] Received: 02/17/24 Status: ANIRUDH Navarro Num: [id number] Spec Type: Cytology Subm Dr: Aggie Davis CNP Tissues: A FNA SLIDES NOPATH (RT THYROID NOD) B FNA SLIDES NOPATH (ISTHMUS THY) Procedures: Cyto Int and Re/2, PAPSTN/10 ---- Patient: Virgen Gonzales [id number] (Continued) ---- Specimen: [id number] Received: 02/17/24 (Continued) Gross Description (Continued) Signed (signature on file) Nishant Morley MD 02/19/24 1428 ---- Specimen: [id number] Received: 02/17/24 Status: ANIRUDH Lupe Num: [id number] Spec Type: Cytology Subm Dr: Aggie Davis CNP Tissues: A FNA SLIDES NOPATH (RT THYROID NOD) B FNA SLIDES NOPATH (ISTHMUS THY) Procedures: Cyto Int and Re/2, PAPSTN/10 ---- Patient: Virgen Gonzales [id number] (Continued) ---- Specimen: [id number] Received: 02/17/24 (Continued) Gross Description (Continued) been obtained as Isthmus thyroid nodule. ThinPrep preparations are prepared for microscopic examination. Also received are 4 spray fixed smeared smeared slides to be stained pap and a Veracyte vial stored at -20 for microscopic examination.([place]/va) CPT Codes 24795h5 ---- ---- Specimen: [id number] Received: 02/17/24-1322 Status: ANIRUDH Navarro Num: [id number] Spec Type: Cytology Subm Dr: Aggie Davis, MONOGRAM OPERATOR Tissues: A FNA SLIDES NOPATH (RT THYROID NOD) B FNA SLIDES NOPATH (ISTHMUS THY) Procedures: Cyto Int and Re/2, PAPSTN/10 ---- Patient: Virgen Gonzales [id number] (Continued) ---- Signed (signature on file) Nishant Morley MD 02/19/24 1428 Normal [facility] Nonvisit Note - PTon 024 Nonvisit Note - PT Pt cancelled reassessment due to being sick. AMK Normal [facility] Nonvisit Note - PTon 024 Nonvisit Note - PT Pt no showed for 171 5 appointment. Normal [facility] Nonvisit Note - PTon 024 Nonvisit Note - PT Pt called to cancel as she is ill. [facility] Consent for Treatmenton 10-28 Consent for Treatment [id number]#1.0 0TIFF [facility] PT - Assessmentson PT - Assessments [id number] 22 [id number]#1.0 0TIFF [facility] PT - Consentson 11-19-2023 PT - Consents [id number] 22 [id number]#1.0 0TIFF [facility] Insurance Correspondenceon 0 11-12-2023 Insurance Correspondence [id number]#1. 00TIFF [facility] PT - Orderson 11-11-2023 PT - Orders [phone] 01 [id number]#1. 00TIFF [facility] L Inj/Asp: L kneeon 08-27-19 24 BEN Delong T 09/02/2023 8:37 AM L Inj/Asp: L knee on 08/27/2023 3:43 PM Indications: pain Details: 21 G needle, lateral approach Medications: 16 mg hylan 16 MG/2ML Consent was given by the patient. [facility] PROF 14(COMP METB)on 023 Albumin [Mass/Vol] 3.2 g/dL Critically low 3.4-5.0 [facility] Comment on above: Performed By: #### T SH, CMP, T7, LIPID #### [facility] [address] [address] [address] Danay De Los Santos Albumin/Globulin [Mass ratio] 1.0 {ratio} Normal [facility] Comment on above: Performed By: #### T SH, CMP, T7, LIPID #### [facility] [address] [address] [address] Danay De Los Santos ALP [Catalytic activity/Vol] 92 U/L Normal 46-116 [facility] Comment on above: Performed By: #### T SH, CMP, T7, LIPID #### [facility] [address] [place] [address] Dr. Danay De Los Santos ALT [Catalytic activity/Vol] 21 U/L Normal 14-59 [facility] Comment on above: Performed By: #### T SH, CMP, T7, LIPID #### [facility] [address] [address] [address] Danay De Los Santos Anion gap [Moles/Vol] 13.2 mmol/L Normal [facility] Comment on above: Performed By: #### T SH, CMP, T7, LIPID #### [facility] [address] [place] [address] Dr. Danay De Los Santos AST [Catalytic activity/Vol] 14 U/L Critically low 15-37 [facility] Comment on above: Performed By: #### T SH, CMP, T7, LIPID #### [facility] [address] [place] [address] Dr. Danay De Los Santos Bilirubin [Mass/Vol] 0.2 mg/dL Normal 0.2-1.0 [facility] Comment on above: Performed By: #### T SH, CMP, T7, LIPID #### [facility] [address] [place] [address] Dr. Danay De Los Santos Calcium [Mass/Vol] 8.6 mg/dL Normal 8.5-10.1 [facility] Comment on above: Performed By: #### T SH, CMP, T7, LIPID #### [facility] [address] [address] [address] Danay De Los Santos Chloride [Moles/Vol] 105 mmol/L Normal 98-107 [facility] Comment on above: Performed By: #### T SH, CMP, T7, LIPID #### [facility] [address] [place] [address] Dr. Daany De Los Santos CO2 [Moles/Vol] 27.9 mmol/L Normal 21.0-32.0 [facility] Comment on above: Performed By: #### T SH, CMP, T7, LIPID #### [facility] [address] [place] [address] Dr. Danay De Los Santos Creatinine [Mass/Vol] 1.47 mg/dL Critically high 0.55-1.02 [facility] Comment on above: Performed By: #### T SH, CMP, T7, LIPID #### [facility] [address] [place] [address] Dr. Danay De Los Santos EGFR-AF BURKINAN 43 mL/min/1.73m2 Critically low >=60 [facility] Comment on above: Performed By: #### T SH, CMP, T7, LIPID #### [facility] [address] [place] [address] Dr. Danay De Los Santos EGFR-NON AF BURKINAN 35 mL/min/1.73m2 Critically low >=60 [facility] Comment on above: Performed By: #### T SH, CMP, T7, LIPID #### [facility] [address] [place] [address] Dr. Danay De Los Santos Globulin (S) [Mass/Vol] 3.3 g/dL Normal [facility] Comment on above: Performed By: #### T SH, CMP, T7, LIPID #### [facility] [address] [place] [address] Dr. Danay De Los Santos Glucose [Mass/Vol] 145 mg/dL Critically high 74-106 [facility] Comment on above: Performed By: #### T SH, CMP, T7, LIPID #### [facility] [address] [place] [address] Dr. Danay De Los Santos Potassium [Moles/Vol] 4.1 mmol/L Normal 3.5-5.1 [facility] Comment on above: Performed By: #### T SH, CMP, T7, LIPID #### [facility] [address] [address] [address] Danay De Los Santos Protein [Mass/Vol] 6.5 g/dL Normal 6.4-8.2 [facility] Comment on above: Performed By: #### T SH, CMP, T7, LIPID #### [facility] [address] [address] [address] Danay De Los Santos Sodium [Moles/Vol] 142 mmol/L Normal 136-145 [facility] Comment on above: Performed By: #### T SH, CMP, T7, LIPID #### [facility] [address] [address] [address] Danay De Los Santos Urea nitrogen [Mass/Vol] 22.0 mg/dL Critically high 7.0-18.0 [facility] Comment on above: Performed By: #### T SH, CMP, T7, LIPID #### [facility] [address] [address] [address] Danay De Los Santos Urea nitrogen/Creatinine [Mass ratio] 15.0 mg/mg Normal [facility] Comment on above: Performed By: #### T SH, CMP, T7, LIPID #### [facility] [address] [place] [address] Dr. Danay De Los Santos PROF CHEM 8 (BAS METB)on Anion gap [Moles/Vol] 12.1 mmol/L Normal [facility] Comment on above: Performed By: #### B MP #### [facility] [address] [address] [address] Danay De Los Santos Calcium [Mass/Vol] 8.8 mg/dL Normal 8.5-10.1 [facility] Comment on above: Performed By: #### B MP #### [facility] [address] [address] [address] Danay De Los Santos Chloride [Moles/Vol] 103 mmol/L Normal 98-107 [facility] Comment on above: Performed By: #### B MP #### [facility] [address] [address] [address] Danay De Los Santos CO2 [Moles/Vol] 28.6 mmol/L Normal 21.0-32.0 [facility] Comment on above: Performed By: #### B MP #### [facility] [address] [address] [address] Danay De Los Santos Creatinine [Mass/Vol] 2.08 mg/dL Critically high 0.55-1.02 [facility] Comment on above: Performed By: #### B MP #### [facility] [address] [address] [address] Danay De Los Santos EGFR-AF BURKINAN 29 mL/min/1.73m2 Critically low >=60 [facility] Comment on above: Performed By: #### B MP #### [facility] [address] [address] [address] Danay De Los Santos EGFR-NON AF BURKINAN 24 mL/min/1.73m2 Critically low >=60 [facility] Comment on above: Performed By: #### B MP #### [facility] [address] [address] [address] Danay De Los Santos Glucose [Mass/Vol] 259 mg/dL Critically high 74-106 [facility] Comment on above: Performed By: #### B MP #### [facility] [address] [address] [address] Danay De Los Santos Potassium [Moles/Vol] 4.7 mmol/L Normal 3.5-5.1 [facility] Comment on above: Performed By: #### B MP #### [facility] [address] [address] [address] Danay De Los Santos Sodium [Moles/Vol] 139 mmol/L Normal 136-145 [facility] Comment on above: Performed By: #### B MP #### [facility] [address] [address] [address] Danay De Los Santos Urea nitrogen [Mass/Vol] 27.0 mg/dL Critically high 7.0-18.0 [facility] Comment on above: Performed By: #### B MP #### [facility] [address] [place] [address] Dr. Danay De Los Santos Urea nitrogen/Creatinine [Mass ratio] 13.0 mg/mg Normal [facility] Comment on above: Performed By: #### B MP #### [facility] [address] [place] [address] Dr. Danay De Los Santos INSULINon 12-17-2022 Insulin 11.1 uIU/mL Normal 2.6-24.9 [facility] Comment on above: Performed By: #### I NSULIN #### [facility] [address] [place] [address] Dr. Danay De Los Santos BNPon 12-15-2022 Natriuretic peptide B (Bld) [Mass/Vol] 110.0 pg/mL Normal <=900.0 [facility] Comment on above: Performed By: #### T SH, CMP, T7, LIPID #### [facility] [address] [place] [address] Dr. Danay De Los Santos CBC AUTO DIFFon 12-15-2022 BASO # 0.1 103/ul Normal 0.0-0.1 [facility] Comment on above: Performed By: #### T SH, CMP, T7, LIPID #### [facility] [address] [place] [address] Dr. Danay De Los Santos Basophils/100 WBC (Bld) 0.5 % Normal 0.2-2.0 [facility] Comment on above: Performed By: #### T SH, CMP, T7, LIPID #### [facility] [address] [place] [address] Dr. Danay De Los Santos EO # 0.7 103/ul Normal 0.0-0.7 [facility] Comment on above: Performed By: #### T SH, CMP, T7, LIPID #### [facility] [address] [place] [address] Dr. Danay De Los Santos Eosinophils/100 WBC (Bld) 6.0 % Normal 0.9-7.0 [facility] Comment on above: Performed By: #### T SH, CMP, T7, LIPID #### [facility] [address] [place] [address] Dr. Danay De Los Santos Erythrocyte distribution width (RBC) [Ratio] 15.6 % Critically high 11.0-15.0 [facility] Comment on above: Performed By: #### T SH, CMP, T7, LIPID #### [facility] [address] [place] [address] Dr. Danay De Los Santos Hematocrit (Bld) [Volume fraction] 40.2 % Normal 36.0-48.0 [facility] Comment on above: Performed By: #### T SH, CMP, T7, LIPID #### [facility] [address] [place] [address] Dr. Danay De Los Santos Hemoglobin (Bld) [Mass/Vol] 12.6 g/dL Normal 12.0-16.0 [facility] Comment on above: Performed By: #### T SH, CMP, T7, LIPID #### [facility] [address] [place] [address] Dr. Danay De Los Santos IG # 0.06 10e3/ul Critically high 0.00-0.03 [facility] Comment on above: Performed By: #### T SH, CMP, T7, LIPID #### [facility] [address] [place] [address] Dr. Danay De Los Santos IG % 0.5 % Normal 0.0-0.5 [facility] Comment on above: Performed By: #### T SH, CMP, T7, LIPID #### [facility] [address] [place] [address] Dr. Danay De Los Santos LYMPH # 3.2 103/ul Normal 1.2-3.8 [facility] Comment on above: Performed By: #### T SH, CMP, T7, LIPID #### [facility] [address] [place] [address] Dr. Danay De Los Santos Lymphocytes/100 WBC (Bld) 28.9 % Normal 20.5-60.0 [facility] Comment on above: Performed By: #### T SH, CMP, T7, LIPID #### [facility] [address] [place] [address] Dr. Danay De Los Santos MANUAL DIFF REQ NO Normal [facility] Comment on above: Performed By: #### T SH, CMP, T7, LIPID #### [facility] [address] [place] [address] Dr. Danay De Los Santos MCH (RBC) [Entitic mass] 27.3 pg Normal 26.7-34.0 [facility] Comment on above: Performed By: #### T SH, CMP, T7, LIPID #### [facility] [address] [place] [address] Dr. Danay De Los Santos MCHC (RBC) [Mass/Vol] 31.3 g/dL Normal 29.9-35.2 [facility] Comment on above: Performed By: #### T SH, CMP, T7, LIPID #### [facility] [address] [place] [address] Dr. Danay De Los Santos MCV (RBC) [Entitic vol] 87.2 fL Normal 81.0-99.0 [facility] Comment on above: Performed By: #### T SH, CMP, T7, LIPID #### [facility] [address] [place] [address] Dr. Danay De Los Santos MONO # 0.6 103/ul Normal 0.3-0.8 [facility] Comment on above: Performed By: #### T SH, CMP, T7, LIPID #### [facility] [address] [place] [address] Dr. Danay De Los Santos Monocytes/100 WBC (Bld) 5.7 % Normal 1.7-12.0 [facility] Comment on above: Performed By: #### T SH, CMP, T7, LIPID #### [facility] [address] [place] [address] Dr. Danay De Los Santos NEUT # 6.4 103/ul Normal 1.4-6.5 [facility] Comment on above: Performed By: #### T SH, CMP, T7, LIPID #### [facility] [address] [place] [address] Dr. Danay De Los Santos Neutrophils/100 WBC (Bld) 58.4 % Normal 43.0-75.0 [facility] Comment on above: Performed By: #### T SH, CMP, T7, LIPID #### [facility] [address] [place] [address] Dr. Danay De Los Santos Platelet mean volume (Bld) [Entitic vol] 10.6 fL Normal 9.5-13.5 [facility] Comment on above: Performed By: #### T SH, CMP, T7, LIPID #### [facility] [address] [place] [address] Dr. Danay De Los Santos PLT 251 103/ul Normal 150-450 [facility] Comment on above: Performed By: #### T SH, CMP, T7, LIPID #### [facility] [address] [place] [address] Dr. Danay De Los Santos RBC 4.61 106/ul Normal 4.20-5.40 [facility] Comment on above: Performed By: #### T SH, CMP, T7, LIPID #### [facility] [address] [place] [address] Dr. Danay De Los Santos WBC 10.9 103/ul Normal 4.0-11.0 [facility] Comment on above: Performed By: #### T SH, CMP, T7, LIPID #### [facility] [address] [place] [address] Dr. Danay De Los Santos FREE THYROXINE INDEX T7on FTI 2.87 Normal 1.30-4.50 [facility] Comment on above: Performed By: #### T SH, CMP, T7, LIPID #### [facility] [address] [place] [address] Dr. Danay De Los Santos T3U 35.0 % Normal 30.0-39.0 [facility] Comment on above: Performed By: #### T SH, CMP, T7, LIPID #### [facility] [address] [place] [address] Dr. Danay De Los Santos T4 [Mass/Vol] 8.20 ug/dL Normal 4.80-13.90 [facility] Comment on above: Performed By: #### T SH, CMP, T7, LIPID #### [facility] [address] [place] [address] Dr. Danay De Los Santos GLYCOHEMOGLOBIN A1Con 2022 ADA RECOMMENDATION SEE BELOW Normal [facility] Comment on above: Result Comment: ADA RECOMMENDED LIMIT 4.0 - 6.0 ADA THERAPEUTIC TARGET < 7.0 ACTION SUGGESTED > 7.0 Performed By: #### A 1C #### [facility] [address] [address] [address] Danay De Los Santos Glucose [Mass/Vol] 203 mg/dL Normal [facility] Comment on above: Performed By: #### A 1C #### [facility] [address] [address] [address] Danay De Los Santos HbA1c (Bld) [Mass fraction] 8.7 % Critically high 4.5-6.2 [facility] Comment on above: Performed By: #### A 1C #### [facility] [address] [place] [address] Dr. Danay De Los Santos IRONon 12-15-2022 Iron [Mass/Vol] 39.0 ug/dL Critically low 50.0-170.0 [facility] Comment on above: Performed By: #### T SH, CMP, T7, LIPID #### [facility] [address] [address] [address] Danay De Los Santos LIPID PROFILEon 12-15-2022 CHOL-HDL RATIO NORM SEE BELOW Normal [facility] Comment on above: Result Comment: 3.3 - 4.4 LOW RISK 4.4 - 7.1 AVERAGE RISK 7.1 - 11.0 MODERATE RISK >11.0 HIGH RISK Performed By: #### T SH, CMP, T7, LIPID #### [facility] [address] [address] [address] Danay De Los Santos Cholesterol [Mass/Vol] 123 mg/dL Normal <=200 [facility] Comment on above: Performed By: #### T SH, CMP, T7, LIPID #### [facility] [address] [address] [address] Danay De Los Santos Cholesterol in HDL [Mass/Vol] 40 mg/dL Normal 40-60 [facility] Comment on above: Performed By: #### T SH, CMP, T7, LIPID #### [facility] [address] [address] [address] Danay De Los Santos Cholesterol in LDL [Mass/Vol] 70.4 mg/dL Normal [facility] Comment on above: Performed By: #### T SH, CMP, T7, LIPID #### [facility] [address] [address] [address] Danay De Los Santos Cholesterol.total/Vivian sterol in HDL [Mass ratio] 3.1 {ratio} Normal [facility] Comment on above: Performed By: #### T SH, CMP, T7, LIPID #### [facility] [address] [address] [address] Danay De Los Santos HDL NORMAL > or = 60 mg/dl - LO W CARDIOVASCULAR RISK <40 mg/dl - HIGH CARDIOVASCULAR RISK Normal [facility] Comment on above: Performed By: #### T SH, CMP, T7, LIPID #### [facility] [address] [address] [address] Danay De Los Santos LDL CALC NORMAL SEE BELOW Normal [facility] Comment on above: Result Comment: <100 mg/dl OPTIMAL 100 - 129 mg/dl NEAR OR ABOVE OPTIMAL 130 - 159 mg/dl BORDERLINE HIGH 160 - 189 mg/dl HIGH >190 mg/dl VERY HIGH Performed By: #### T SH, CMP, T7, LIPID #### [facility] [address] [address] [address] Danay De Los Santos Triglyceride [Mass/Vol] 63 mg/dL Normal <=150 [facility] Comment on above: Performed By: #### T SH, CMP, T7, LIPID #### [facility] [address] [address] [address] Danay De Los Santos VLDL CALC 12.6 mg/dL Normal [facility] Comment on above: Performed By: #### T SH, CMP, T7, LIPID #### [facility] [address] [address] [address] Danay De Los Santos PROF 14(COMP METB)on 023 Albumin [Mass/Vol] 3.3 g/dL Critically low 3.4-5.0 [facility] Comment on above: Performed By: #### T SH, CMP, T7, LIPID #### [facility] [address] [address] [address] Danay De Los Santos Albumin/Globulin [Mass ratio] 1.0 {ratio} Normal [facility] Comment on above: Performed By: #### T SH, CMP, T7, LIPID #### [facility] [address] [address] [address] Danay De Los Santos ALP [Catalytic activity/Vol] 94 U/L Normal 46-116 [facility] Comment on above: Performed By: #### T SH, CMP, T7, LIPID #### [facility] [address] [address] [address] Danay De Los Santos ALT [Catalytic activity/Vol] 17 U/L Normal 14-59 [facility] Comment on above: Performed By: #### T SH, CMP, T7, LIPID #### [facility] [address] [address] [address] Danay De Los Santos Anion gap [Moles/Vol] 14.3 mmol/L Normal [facility] Comment on above: Performed By: #### T SH, CMP, T7, LIPID #### [facility] [address] [address] [address] Danay De Los Santos AST [Catalytic activity/Vol] 11 U/L Critically low 15-37 [facility] Comment on above: Performed By: #### T SH, CMP, T7, LIPID #### [facility] [address] [address] [address] Danay De Los Santos Bilirubin [Mass/Vol] 0.3 mg/dL Normal 0.2-1.0 [facility] Comment on above: Performed By: #### T SH, CMP, T7, LIPID #### [facility] [address] [address] [address] Danay De Los Santos Calcium [Mass/Vol] 9.1 mg/dL Normal 8.5-10.1 [facility] Comment on above: Performed By: #### T SH, CMP, T7, LIPID #### [facility] [address] [address] [address] Danay De Los Santos Chloride [Moles/Vol] 105 mmol/L Normal 98-107 [facility] Comment on above: Performed By: #### T SH, CMP, T7, LIPID #### [facility] [address] [place] [address] Dr. Danay De Los Santos CO2 [Moles/Vol] 29.3 mmol/L Normal 21.0-32.0 [facility] Comment on above: Performed By: #### T SH, CMP, T7, LIPID #### [facility] [address] [place] [address] Dr. Danay De Los Santos Creatinine [Mass/Vol] 1.53 mg/dL Critically high 0.55-1.02 [facility] Comment on above: Performed By: #### T SH, CMP, T7, LIPID #### [facility] [address] [place] [address] Dr. Danay De Los Santos EGFR-AF BURKINAN 41 mL/min/1.73m2 Critically low >=60 [facility] Comment on above: Performed By: #### T SH, CMP, T7, LIPID #### [facility] [address] [place] [address] Dr. Danay De Los Santos EGFR-NON AF BURKINAN 34 mL/min/1.73m2 Critically low >=60 [facility] Comment on above: Performed By: #### T SH, CMP, T7, LIPID #### [facility] [address] [place] [address] Dr. Danay De Los Santos Globulin (S) [Mass/Vol] 3.4 g/dL Normal [facility] Comment on above: Performed By: #### T SH, CMP, T7, LIPID #### [facility] [address] [place] [address] Dr. Danay De Los Santos Glucose [Mass/Vol] 192 mg/dL Critically high 74-106 [facility] Comment on above: Performed By: #### T SH, CMP, T7, LIPID #### [facility] [address] [place] [address] Dr. Danay De Los Santos Potassium [Moles/Vol] 4.6 mmol/L Normal 3.5-5.1 [facility] Comment on above: Performed By: #### T SH, CMP, T7, LIPID #### [facility] [address] [place] [address] Dr. Danay De Los Santos Protein [Mass/Vol] 6.7 g/dL Normal 6.4-8.2 [facility] Comment on above: Performed By: #### T SH, CMP, T7, LIPID #### [facility] [address] [place] [address] Dr. Danay De Los Santos Sodium [Moles/Vol] 144 mmol/L Normal 136-145 [facility] Comment on above: Performed By: #### T SH, CMP, T7, LIPID #### [facility] [address] [place] [address] Dr. Danay De Los Santos Urea nitrogen [Mass/Vol] 25.0 mg/dL Critically high 7.0-18.0 [facility] Comment on above: Performed By: #### T SH, CMP, T7, LIPID #### [facility] [address] [place] [address] Dr. Danay De Los Santos Urea nitrogen/Creatinine [Mass ratio] 16.3 mg/mg Normal [facility] Comment on above: Performed By: #### T SH, CMP, T7, LIPID #### [facility] [address] [place] [address] Dr. Danay De Los Santos TSHon 12-15-2022 TSH 2.181 uIU/mL Normal 0.358-3.740 [facility] Comment on above: Performed By: #### T SH, CMP, T7, LIPID #### [facility] [address] [place] [address] Dr. Danay De Los Santos VITAMIN D 25 OHon 12-15-2022 VIT D 25-OH 32.9 ng/mL Normal [facility] Comment on above: Performed By: #### T SH, CMP, T7, LIPID #### [facility] [address] [place] [address] Dr. Danay De Los Santos VIT D RANGES SEE BELOW Normal [facility] Comment on above: Result Comment: <20 ng/mL Vit D deficient 20 - <30 ng/mL Vit D insufficient 30 - 100 ng/mL Vit D sufficient >100 ng/mL Potential Toxicity Performed By: #### T SH, CMP, T7, LIPID #### [facility] [id number] Danay De Los Santos OREL DOP LEG LTon 12-02-19 23 US ROEL [...] MORIAH MORRISON Date: 2022-12-01 12:54 Normal [facility] XR Hand Complete Left*on XR Hand Complete Left* CLINICAL HISTORY: Fall with left hand stiffness. COMPARISON: None. RESULT: No distinct acute fracture. No dislocation. Underlying decreased bone mineral density. Mild to moderate scattered degenerative changes. Soft tissue edema. IMPRESSION: No acute osseous findings radiographically. Report reported and signed by Home Lockwood on 08/24/2022 1108 Normal [facility] [employer] XR Spine Cervical Complete*o n 08-24-2022 XR [...] by Home Lockwood on 08/24/2022 1109 Normal [facility] [employer] XR HAND RIMA MIN 3Von 023 XR HAND RMIA MIN 3V EXAM: XR HAND RIMA IA N 3V HISTORY: Pain following fall COMPARISON: None. TECHNIQUE: 3 views of each hand FINDINGS: No visualized fracture, dislocation, subluxation or osseous lesion. Age-related joint space changes. No gross visualized soft tissue edema. IMPRESSION: No visualized abnormality Electronically authenticated by: BRIANNA KU Date: 2022-08-06 20:28 Normal [facility] XR HIP RT 2 3V W PELVISon [...] Date: 2022-08-06 20:29 Normal [facility] XR SHOULDER RT 2V or >on XR [...] Date: 2022-08-06 20:21 Normal [facility] XR Foot Complete Left*on XR Foot Complete Left* COMPARISON: None available HISTORY: Second and third digit pain after a fall TECHNIQUE: AP, lateral and oblique views of the foot obtained. FINDINGS: No acute fracture or dislocation. Joint spaces are preserved. Soft tissues are within normal limits. IMPRESSION: No acute osseous abnormality. Report reported and signed by Drew Looney on 08/04/2022 1044 Normal [facility] XR Knee Complete Left*on XR Knee Complete [...] by Drew Looney on 08/04/2022 1046 Normal [facility] Specialist MRI BRAIN WO CONon 12-05-202 2 MRI BRAIN WO CON EXAMINATION: MRI [...] Date: 2022-07-02 14:48 Normal [facility] INSULINon 05-28-2022 Insulin 13.4 uIU/mL Normal 2.6-24.9 [facility] Comment on above: Performed By: #### I NSULIN #### [facility] [address] [place] [address] Dr. Danay De Los Santos CBC AUTO DIFFon 05-26-2022 BASO # 0.1 103/ul Normal 0.0-0.1 [facility] Comment on above: Performed By: #### C BC #### [facility] [address] [place] [address] Dr. Danay De Los Santos Basophils/100 WBC (Bld) 0.8 % Normal 0.2-2.0 [facility] Comment on above: Performed By: #### C BC #### [facility] [address] [place] [address] Dr. Danay De Los Santos EO # 0.6 103/ul Normal 0.0-0.7 [facility] Comment on above: Performed By: #### C BC #### [facility] [address] [place] [address] Dr. Danay De Los Santos Eosinophils/100 WBC (Bld) 5.1 % Normal 0.9-7.0 [facility] Comment on above: Performed By: #### C BC #### [facility] [address] [place] [address] Dr. Danay De Los Santos Erythrocyte distribution width (RBC) [Ratio] 14.7 % Normal 11.0-15.0 [facility] Comment on above: Performed By: #### C BC #### [facility] [address] [place] [address] Dr. Danay De Los Santos Hematocrit (Bld) [Volume fraction] 37.8 % Normal 36.0-48.0 [facility] Comment on above: Performed By: #### C BC #### [facility] [address] [place] [address] Dr. Danay De Los Santos Hemoglobin (Bld) [Mass/Vol] 12.3 g/dL Normal 12.0-16.0 [facility] Comment on above: Performed By: #### C BC #### [facility] [address] [place] [address] Dr. Danay De Los Santos IG # 0.05 10e3/ul Critically high 0.00-0.03 [facility] Comment on above: Performed By: #### C BC #### [facility] [address] [place] [address] Dr. Danay De Los Santos IG % 0.5 % Normal 0.0-0.5 [facility] Comment on above: Performed By: #### C BC #### [facility] [address] [place] [address] Dr. Danay De Los Santos LYMPH # 2.1 103/ul Normal 1.2-3.8 [facility] Comment on above: Performed By: #### C BC #### [facility] [address] [place] [address] Dr. Danay De Los Santos Lymphocytes/100 WBC (Bld) 19.1 % Critically low 20.5-60.0 [facility] Comment on above: Performed By: #### C BC #### [facility] [address] [place] [address] Dr. Danay De Los Santos MANUAL DIFF REQ NO Normal [facility] Comment on above: Performed By: #### C BC #### [facility] [address] [address] [address] Danay De Los Santos MCH (RBC) [Entitic mass] 30.8 pg Normal 26.7-34.0 [facility] Comment on above: Performed By: #### C BC #### [facility] [address] [place] [address] Dr. Danay De Los Santos MCHC (RBC) [Mass/Vol] 32.5 g/dL Normal 29.9-35.2 [facility] Comment on above: Performed By: #### C BC #### [facility] [address] [place] [address] Dr. Danay De Los Santos MCV (RBC) [Entitic vol] 94.5 fL Normal 81.0-99.0 [facility] Comment on above: Performed By: #### C BC #### [facility] [address] [place] [address] Dr. Danay De Los Santos MONO # 0.6 103/ul Normal 0.3-0.8 [facility] Comment on above: Performed By: #### C BC #### [facility] [address] [place] [address] Dr. Danay De Los Santos Monocytes/100 WBC (Bld) 5.1 % Normal 1.7-12.0 [facility] Comment on above: Performed By: #### C BC #### [facility] [address] [place] [address] Dr. Danay De Los Santos NEUT # 7.5 103/ul Critically high 1.4-6.5 [facility] Comment on above: Performed By: #### C BC #### [facility] [address] [place] [address] Dr. Danay De Los Santos Neutrophils/100 WBC (Bld) 69.4 % Normal 43.0-75.0 [facility] Comment on above: Performed By: #### C BC #### [facility] [address] [place] [address] Dr. Danay De Los Santos Platelet mean volume (Bld) [Entitic vol] 10.9 fL Normal 9.5-13.5 [facility] Comment on above: Performed By: #### C BC #### [facility] [address] [address] [address] Danay De Los Santos PLT 235 103/ul Normal 150-450 [facility] Comment on above: Performed By: #### C BC #### [facility] [address] [address] [address] Danay De Los Santos RBC 4.00 106/ul Critically low 4.20-5.40 [facility] Comment on above: Performed By: #### C BC #### [facility] [address] [address] [address] Danay De Los Santos WBC 10.8 103/ul Normal 4.0-11.0 [facility] Comment on above: Performed By: #### C BC #### [facility] [address] [place] [address] Dr. Danay De Los Santos FREE THYROXINE INDEX T7on FTI 1.83 Normal 1.30-4.50 [facility] Comment on above: Performed By: #### T SH, CMP, T7, LIPID #### [facility] [address] [place] [address] Dr. Danay De Los Santos T3U 31.0 % Normal 30.0-39.0 [facility] Comment on above: Performed By: #### T SH, CMP, T7, LIPID #### [facility] [address] [place] [address] Dr. Danay De Los Santos T4 [Mass/Vol] 5.90 ug/dL Normal 4.80-13.90 [facility] Comment on above: Performed By: #### T SH, CMP, T7, LIPID #### [facility] [address] [place] [address] Dr. Danay De Los Santos GLYCOHEMOGLOBIN A1Con 2021 ADA RECOMMENDATION SEE BELOW Normal [facility] Comment on above: Result Comment: ADA RECOMMENDED LIMIT 4.0 - 6.0 ADA THERAPEUTIC TARGET < 7.0 ACTION SUGGESTED > 7.0 Performed By: #### A 1C #### [facility] [address] [place] [address] Dr. Danay De Los Santos Glucose [Mass/Vol] 186 mg/dL Normal [facility] Comment on above: Performed By: #### A 1C #### [facility] [address] [address] [address] Danay De Los Santos HbA1c (Bld) [Mass fraction] 8.1 % Critically high 4.5-6.2 [facility] Comment on above: Performed By: #### A 1C #### [facility] [address] [address] [address] Danay De Los Santos IRONon 05-26-2022 Iron [Mass/Vol] 61.0 ug/dL Normal 50.0-170.0 [facility] Comment on above: Performed By: #### T SH, CMP, T7, LIPID #### [facility] [address] [place] [address] Dr. Danay De Los Santos LIPID PROFILEon 05-26-2022 CHOL-HDL RATIO NORM SEE BELOW Normal [facility] Comment on above: Result Comment: 3.3 - 4.4 LOW RISK 4.4 - 7.1 AVERAGE RISK 7.1 - 11.0 MODERATE RISK >11.0 HIGH RISK Performed By: #### T SH, CMP, T7, LIPID #### [facility] [address] [place] [address] Dr. Danay De Los Santos Cholesterol [Mass/Vol] 130 mg/dL Normal <=200 [facility] Comment on above: Performed By: #### T SH, CMP, T7, LIPID #### [facility] [address] [place] [address] Dr. Danay De Los Santos Cholesterol in HDL [Mass/Vol] 40 mg/dL Normal 40-60 [facility] Comment on above: Performed By: #### T SH, CMP, T7, LIPID #### [facility] [address] [place] [address] Dr. Danay De Los Santos Cholesterol in LDL [Mass/Vol] 75.8 mg/dL Normal [facility] Comment on above: Performed By: #### T SH, CMP, T7, LIPID #### [facility] [address] [place] [address] Dr. Danay De Los Santos Cholesterol.total/Vivian sterol in HDL [Mass ratio] 3.3 {ratio} Normal [facility] Comment on above: Performed By: #### T SH, CMP, T7, LIPID #### [facility] [address] [address] [address] Danay De Los Santos HDL NORMAL > or = 60 mg/dl - LO W CARDIOVASCULAR RISK <40 mg/dl - HIGH CARDIOVASCULAR RISK Normal [facility] Comment on above: Performed By: #### T SH, CMP, T7, LIPID #### [facility] [address] [address] [address] Danay De Los Santos LDL CALC NORMAL SEE BELOW Normal [facility] Comment on above: Result Comment: <100 mg/dl OPTIMAL 100 - 129 mg/dl NEAR OR ABOVE OPTIMAL 130 - 159 mg/dl BORDERLINE HIGH 160 - 189 mg/dl HIGH >190 mg/dl VERY HIGH Performed By: #### T SH, CMP, T7, LIPID #### [facility] [address] [address] [address] Danay De Los Santos Triglyceride [Mass/Vol] 71 mg/dL Normal <=150 T [facility] Comment on above: Performed By: #### T SH, CMP, T7, LIPID #### [facility] [address] [address] [address] Danay De Los Santos VLDL CALC 14.2 mg/dL Normal [facility] Comment on above: Performed By: #### T SH, CMP, T7, LIPID #### [facility] [address] [address] [address] Danay De Los Santos PROF 14(COMP METB)on 022 Albumin [Mass/Vol] 3.4 g/dL Normal 3.4-5.0 [facility] Comment on above: Performed By: #### T SH, CMP, T7, LIPID #### [facility] [address] [place] [address] Dr. Danay De Los Santos Albumin/Globulin [Mass ratio] 1.0 {ratio} Normal [facility] Comment on above: Performed By: #### T SH, CMP, T7, LIPID #### [facility] [address] [place] [address] Dr. Danay De Los Santos ALP [Catalytic activity/Vol] 92 U/L Normal 46-116 [facility] Comment on above: Performed By: #### T SH, CMP, T7, LIPID #### [facility] [address] [address] [address] Danay De Los Santos ALT [Catalytic activity/Vol] 15 U/L Normal 14-59 [facility] Comment on above: Performed By: #### T SH, CMP, T7, LIPID #### [facility] [address] [address] [address] Danay De Los Santos Anion gap [Moles/Vol] 10.4 mmol/L Normal Th e [facility] Comment on above: Performed By: #### T SH, CMP, T7, LIPID #### [facility] [address] [place] [address] Dr. Danay De Los Santos AST [Catalytic activity/Vol] 12 U/L Critically low 15-37 [facility] Comment on above: Performed By: #### T SH, CMP, T7, LIPID #### [facility] [address] [place] [address] Dr. Danay De Los Santos Bilirubin [Mass/Vol] 0.4 mg/dL Normal 0.2-1.0 [facility] Comment on above: Performed By: #### T SH, CMP, T7, LIPID #### [facility] [address] [place] [address] Dr. Danay De Los Santos Calcium [Mass/Vol] 8.7 mg/dL Normal 8.5-10.1 [facility] Comment on above: Performed By: #### T SH, CMP, T7, LIPID #### [facility] [address] [place] [address] Dr. Danay De Los Santos Chloride [Moles/Vol] 107 mmol/L Normal 98-107 [facility] Comment on above: Performed By: #### T SH, CMP, T7, LIPID #### [facility] [address] [place] [address] Dr. Danay De Los Santos CO2 [Moles/Vol] 28.9 mmol/L Normal 21.0-32.0 [facility] Comment on above: Performed By: #### T SH, CMP, T7, LIPID #### [facility] [address] [place] [address] Dr. Danay De Los Santos Creatinine [Mass/Vol] 1.18 mg/dL Critically high 0.55-1.02 [facility] Comment on above: Performed By: #### T SH, CMP, T7, LIPID #### [facility] [address] [place] [address] Dr. Danay De Los Santos EGFR-AF BURKINAN 55 mL/min/1.73m2 Critically low >=60 [facility] Comment on above: Performed By: #### T SH, CMP, T7, LIPID #### [facility] [address] [place] [address] Dr. Danay De Los Santos EGFR-NON AF BURKINAN 46 mL/min/1.73m2 Critically low >=60 [facility] Comment on above: Performed By: #### T SH, CMP, T7, LIPID #### [facility] [address] [place] [address] Dr. Danay De Los Santos Globulin (S) [Mass/Vol] 3.3 g/dL Normal [facility] Comment on above: Performed By: #### T SH, CMP, T7, LIPID #### [facility] [address] [place] [address] Dr. Danay De Los Santos Glucose [Mass/Vol] 153 mg/dL Critically high 74-106 [facility] Comment on above: Performed By: #### T SH, CMP, T7, LIPID #### [facility] [address] [place] [address] Dr. Danay De Los Santos Potassium [Moles/Vol] 4.3 mmol/L Normal 3.5-5.1 [facility] Comment on above: Performed By: #### T SH, CMP, T7, LIPID #### [facility] [address] [place] [address] Dr. Danay De Los Santos Protein [Mass/Vol] 6.7 g/dL Normal 6.4-8.2 [facility] Comment on above: Performed By: #### T SH, CMP, T7, LIPID #### [facility] [address] [place] [address] Dr. Danay De Los Santos Sodium [Moles/Vol] 142 mmol/L Normal 136-145 [facility] Comment on above: Performed By: #### T SH, CMP, T7, LIPID #### [facility] [address] [address] [address] Danay De Los Santos Urea nitrogen [Mass/Vol] 16.0 mg/dL Normal 7.0-18.0 [facility] Comment on above: Performed By: #### T SH, CMP, T7, LIPID #### [facility] [address] [address] [address] Danay De Los Santos Urea nitrogen/Creatinine [Mass ratio] 13.6 mg/mg Normal [facility] Comment on above: Performed By: #### T SH, CMP, T7, LIPID #### [facility] [address] [address] [address] Danay De Los Santos TSHon 05-26-2022 TSH 1.443 uIU/mL Normal 0.358-3.740 [facility] Comment on above: Performed By: #### T SH, CMP, T7, LIPID #### [facility] [address] [address] [address] Danay De Los Santos XR DEXA [...] by: BECKY AVILEZ Date: 2022-04-05 12:11 Normal [facility] GLYCOHEMOGLOBIN A1Con 2021 ADA RECOMMENDATION SEE BELOW Normal [facility] Comment on above: Result Comment: ADA RECOMMENDED LIMIT 4.0 - 6.0 ADA THERAPEUTIC TARGET < 7.0 ACTION SUGGESTED > 7.0 Performed By: #### T SH, CMP, T7, LIPID #### [facility] [address] [place], [place] [address] Dr. Danay De Los Santos Glucose [Mass/Vol] 174 mg/dL Normal [facility] Comment on above: Performed By: #### T SH, CMP, T7, LIPID #### [facility] [address] [place], [place] [address] Dr. Danay De Los Santos HbA1c (Bld) [Mass fraction] 7.7 % Critically high 4.5-6.2 [facility] Comment on above: Performed By: #### T SH, CMP, T7, LIPID #### [facility] [address] [address] [address] Danay De Los Santos MG MAMM SCREEN 3D RIMA CADon 02-14-2022 MG MAMM SCREEN 3D RIMA CAD Patient: VIRGEN GONZALES Exam Date: 02/14/2022 : 1955 Gender:F Ordering : [facility] Admission #: [id number] Family : Order #: [id number] CLICK HERE TO VIEW EXAM RADIOLOGY REPORT [...] at age 24. LOCATION: [facility] BREAST COMPOSITION: Heterogeneously dense,which may obscure small [...] Avilez M.D. on 02/14/2022 at 16:12 Normal [facility] CARDIAC STRESS/REST ARTEM Kwon 01-27-2020 [facility] CARDIAC STRESS/REST INJECTION Patient Name: VIRGEN GONZALES STUDY: MYOCARDIAL PERFUSION STRESS TEST WITH LEXISCAN Performing facility: [facility], [address] [place] [address], [address], [address] Provider: Catarino Koroma MD, [facility] PCP: Dr. Nicola Granger Supervising provider: Catarino Koroma MD, [facility] INDICATION: Abnormal EKG; Pre-operative risk assessment for Knee surgery scheduled at unknown on unknown. RBBB HISTORY: Gender: F; Age: 64 y/o ; Height: 152.4 cm; Weight: 77.2204980 kg. High Cholesterol; Abnormal EKG; Diabetes; Family HX CAD; HTN; Smoking COMPARISON: No comparison. ACCESSION NUMBER(S): [id number]; [id number]; [id number] ORDERING CLINICIAN: CATARINO KOROMA TECHNIQUE: ONE DAY [...] comparison. Electronically signed by: CATARINO KOROMA MD [facility] Vital Signs Date Time Vital Sign Value Performing Clinician Swapnil ontiveros 11-09-2024 10:02-0400 Body height 152.4 cm Da BlipifyjhonathanArchitizermaicol DO Work Phone: [facility] 11-09-2024 10:02-0400 Body mass index (BMI) [Ratio] 40.04 kg/m2 Da Kenji DO Work Phone: [facility] 11-09-2024 10:02-0400 Body weight 92.99 kg Da Phillip DO Work Phone: [facility] 11-05-2024 10:41-0400 Body height 152.4 cm Brice Delores DO Work Phone: [facility] 11-05-2024 10:41-0400 Body mass index (BMI) [Ratio] 40.43 kg/m2 Brice Brown DO Work Phone: [facility] 11-05-2024 10:41-0400 Body weight 93.89 kg Brice Brown DO Work Phone: [facility] 09-21-2024 08:22-0500 Body height 152.4 cm Aggie Davis NP-C Work Phone: [facility] 09-21-2024 08:22-0500 Body mass index (BMI) [Ratio] 40.8 kg/m2 Aggie Davis NP-C Work Phone: [facility] 09-21-2024 08:22-0500 Body weight 94.8 kg Aggie Davis CHEESE WEIGHER-C Work Phone: [facility] 09-21-2024 08:14-0500 Body temperature 97.5 [degF] Aggie Davis CHEESE WEIGHER-C Work Phone: [facility] 09-21-2024 08:14-0500 Diastolic blood pressure 75 mm[Hg] Aggie Davis CHEESE WEIGHER-C Work Phone: [facility] 09-21-2024 08:14-0500 Heart rate 86 /min Aggie Davis CHEESE WEIGHER-C Work Phone: [facility] 09-21-2024 08:14-0500 Respiratory rate 20 /min Aggie Davis CHEESE WEIGHER-C Work Phone: [facility] 09-21-2024 08:14-0500 Systolic blood pressure 121 mm[Hg] Aggie Davis CHEESE WEIGHER-C Work Phone: [facility] 09-07-2024 09:09-0500 Blood Pressure Location Kang BOSS [facility] 09-07-2024 09:09-0500 Diastolic blood pressure 74 mm[Hg] Kang BOSS [facility] 09-07-2024 09:09-0500 Heart rate 70 /min Kang BOSS [facility] 09-07-2024 09:09-0500 Respiratory rate 18 /min Kang BOSS [facility] 09-07-2024 09:09-0500 Systolic blood pressure 112 mm[Hg] Kang BOSS [facility] 08-31-2024 13:49-0500 Body height 152.4 cm Aggie Davis CHEESE WEIGHER-C Work Phone: [facility] 08-31-2024 13:49-0500 Body mass index (BMI) [Ratio] 39.9 kg/m2 Aggie Susan CHEESE WEIGHER-C Work Phone: [facility] 08-31-2024 13:49-0500 Body temperature 97.8 [degF] Aggie Susan CHEESE WEIGHER-C Work Phone: [facility] 08-31-2024 13:49-0500 Body weight 92.75 kg Aggie Susan CHEESE WEIGHER-C Work Phone: [facility] 08-31-2024 13:49-0500 Diastolic blood pressure 71 mm[Hg] Aggie Davis CHEESE WEIGHER-C Work Phone: [facility] 08-31-2024 13:49-0500 Heart rate 68 /min Aggie Davis CHEESE WEIGHER-C Work Phone: [facility] 08-31-2024 13:49-0500 Respiratory rate 18 /min Aggie Davis CHEESE WEIGHER-C Work Phone: [facility] 08-31-2024 13:49-0500 SaO2% (BldA) [Mass fraction] 98 % Aggie Susan CHEESE WEIGHER-C Work Phone: [facility] 08-31-2024 13:49-0500 Systolic blood pressure 106 mm[Hg] Aggie Davis CHEESE WEIGHER-C Work Phone: [facility] 08-31-2024 10:24-0500 Body height 152.4 cm Brice Estrella DO Work Phone: [facility] 08-31-2024 10:24-0500 Body mass index (BMI) [Ratio] 40.43 kg/m2 Brice Estrella DO Work Phone: [facility] 08-31-2024 10:24-0500 Body weight 93.89 kg Brice Estrella DO Work Phone: [facility] 08-20-2024 09:05-0500 Body mass index (BMI) [Ratio] 40.43 kg/m2 Olman De La Rosa DO Work Phone: [facility] 08-20-2024 09:05-0500 Body weight 93.89 kg Christopher Estrella DO Work Phone: [facility] 08-20-2024 09:05-0500 Diastolic blood pressure 80 mm[Hg] Christopher Estrella DO Work Phone: [facility] 08-20-2024 09:05-0500 Heart rate 80 /min Christopher Estrella DO Work Phone: [facility] 08-20-2024 09:05-0500 SaO2% (BldA) [Mass fraction] 95 % Christopher Estrella DO Work Phone: [facility] 08-20-2024 09:05-0500 Systolic blood pressure 144 mm[Hg] Christopher Estrella DO Work Phone: [facility] 08-19-2024 10:18-0500 Body height 152.4 cm Aggie Davis CHEESE WEIGHER-C Work Phone: [facility] 08-19-2024 10:18-0500 Body mass index (BMI) [Ratio] 40.8 kg/m2 Aggie Davis CHEESE WEIGHER-C Work Phone: [facility] 08-19-2024 10:18-0500 Body weight 94.8 kg Aggie Davis CHEESE WEIGHER-C Work Phone: [facility] 08-19-2024 09:13-0500 Body temperature 98.2 [degF] Aggie Davis CHEESE WEIGHER-C Work Phone: [facility] 08-19-2024 09:13-0500 Diastolic blood pressure 44 mm[Hg] Aggie Davis CHEESE WEIGHER-C Work Phone: [facility] 08-19-2024 09:13-0500 Heart rate 87 /min Aggie Davis CHEESE WEIGHER-C Work Phone: [facility] 08-19-2024 09:13-0500 Respiratory rate 20 /min Aggie Davis CHEESE WEIGHER-C Work Phone: [facility] 08-19-2024 09:13-0500 Systolic blood pressure 100 mm[Hg] Aggie Davis CHEESE WEIGHER-C Work Phone: [facility] 08-18-2024 10:31-0500 Body height 152.4 cm Mathieu Naqvi MD Work Phone: [facility] 08-18-2024 10:31-0500 Body mass index (BMI) [Ratio] 40.82 kg/m2 Mathieu Naqvi MD Work Phone: [facility] 08-18-2024 10:31-0500 Body weight 94.8 kg Mathieu Naqvi MD Work Phone: [facility] 07-07-2024 21:52-0500 Body temperature 97.88 [degF] Kaylinn Dokken [facility] 07-07-2024 21:52-0500 Diastolic blood pressure 76 mm[Hg] Kaylinn Dokken [facility] 07-07-2024 21:52-0500 Heart rate 72 /min Kaylinn Dokken [facility] 07-07-2024 21:52-0500 Mean blood pressure 86 mm[Hg] Kaylinn Dokken [facility] 07-07-2024 21:52-0500 Respiratory rate 19 /min Kaylinn Dokken [facility] 07-07-2024 21:52-0500 SaO2% (BldA) [Mass fraction] 95 % Kaylinn Dokken [facility] 07-07-2024 21:52-0500 Systolic blood pressure 105 mm[Hg] Kaylinn Dokken [facility] 07-07-2024 20:57-0500 Diastolic blood pressure 77 mm[Hg] Kaylinn Dokken [facility] 07-07-2024 20:57-0500 Heart rate 61 /min Kaylinn Dokken [facility] 07-07-2024 20:57-0500 Mean blood pressure 102 mm[Hg] Kaylinn Dokken [facility] 07-07-2024 20:57-0500 Respiratory rate 18 /min Kaylinn Dokken [facility] 07-07-2024 20:57-0500 SaO2% (BldA) [Mass fraction] 96 % Kaylinn Dokken [facility] 07-07-2024 20:57-0500 Systolic blood pressure 153 mm[Hg] Kaylinn Dokken [facility] 07-07-2024 19:33-0500 Diastolic blood pressure 89 mm[Hg] Kaylinn Dokken [facility] 07-07-2024 19:33-0500 Heart rate 60 /min Kaylinn Dokken [facility] 07-07-2024 19:33-0500 Mean blood pressure 108 mm[Hg] Kaylinn Dokken [facility] 07-07-2024 19:33-0500 Respiratory rate 19 /min Kaylinn Dokken [facility] 07-07-2024 19:33-0500 SaO2% (BldA) [Mass fraction] 95 % Kaylinn Dokken [facility] 07-07-2024 19:33-0500 Systolic blood pressure 146 mm[Hg] Kaylinn Dokken [facility] 07-07-2024 19:20-0500 Body temperature 98.06 [degF] Kaylinn Dokken [facility] 07-07-2024 18:33-0500 Body temperature 98.24 [degF] Kaylinn Dokken [facility] 07-07-2024 18:33-0500 Heart rate 73 /min Kaylinn Dokken [facility] 07-07-2024 18:33-0500 Respiratory rate 18 /min Kaylinn Dokken [facility] 07-07-2024 18:19-0500 gluc 142 mg/dL Kaylinn Dokken [facility] 07-07-2024 18:18-0500 Heart rate 73 /min Kaylinn Dokken [facility] 07-07-2024 18:18-0500 Respiratory rate 18 /min Kaylinn Dokken [facility] 05-18-2024 10:53-0400 Body height 152.4 cm Da [employer] DO Work Phone: [facility] [employer] 05-18-2024 10:53-0400 Body mass index (BMI) [Ratio] 38.08 kg/m2 Da Biedenbach DO Work Phone: [facility] [employer] 05-18-2024 10:53-0400 Body weight 88.45 kg Da Biedenbach DO Work Phone: [facility] 04-13-2024 11:09-0400 Body height 152.4 cm Da Biedenbach DO Work Phone: [facility] 04-13-2024 11:09-0400 Body mass index (BMI) [Ratio] 38.08 kg/m2 Da Biedenbach DO Work Phone: [facility] 04-13-2024 11:09-0400 Body weight 88.45 kg Da Biedenmaicol DO Work Phone: [facility] 04-10-2024 09:25-0400 Body height 149.9 cm Da Biedenbach DO Work Phone: [facility] 04-10-2024 09:25-0400 Body mass index (BMI) [Ratio] 39.39 kg/m2 Da Biedenbach DO Work Phone: [facility] 04-10-2024 09:25-0400 Body weight 88.45 kg Da Biedenmaicol DO Work Phone: [facility] 03-26-2024 11:11-0400 Body height 152.4 cm Da Biedenmaicol DO Work Phone: [facility] 03-26-2024 11:11-0400 Body mass index (BMI) [Ratio] 38.08 kg/m2 Da Biedenbach DO Work Phone: [facility] 03-26-2024 11:11-0400 Body weight 88.45 kg Da Saeededenmaicol DO Work Phone: [facility] 08-27-2023 15:38-0500 Body height 149.9 cm Brice Estrella DO Work Phone: [facility] 08-27-2023 15:38-0500 Body mass index (BMI) [Ratio] 39.59 kg/m2 Brice Estrella DO Work Phone: [facility] 08-27-2023 15:38-0500 Body temperature 97.39 [degF] Brice Estrella DO Work Phone: [facility] 08-27-2023 15:38-0500 Body weight 88.91 kg Brice Estrella DO Work Phone: [facility] 06-07-2023 08:27-0500 Heart rate 77 /min Brice Estrella [facility] 06-07-2023 08:27-0500 SaO2% (BldA) [Mass fraction] 98 % Brice Estrella [facility] 06-07-2023 08:26-0500 Respiratory rate 20 /min Brice Estrella [facility] 06-07-2023 08:26-0500 Blood Pressure Location Brice Estrella [facility] 06-07-2023 08:26-0500 Diastolic blood pressure 64 mm[Hg] Brice Estrella [facility] 06-07-2023 08:26-0500 Mean blood pressure 77 mm[Hg] Brice Estrella [facility] 06-07-2023 08:26-0500 Systolic blood pressure 102 mm[Hg] Brice Estrella [facility] 06-07-2023 08:25-0500 Body temperature 97.88 [degF] Brice Estrella [facility] 06-07-2023 08:05-0500 Blood Pressure Location Brice Estrella [facility] 06-07-2023 08:05-0500 Diastolic blood pressure 59 mm[Hg] Brice Estrella [facility] 06-07-2023 08:05-0500 Heart rate 73 /min Brice Estrella [facility] 06-07-2023 08:05-0500 Respiratory rate 20 /min Brice Estrella [facility] 06-07-2023 08:05-0500 SaO2% (BldA) [Mass fraction] 95 % Brice Estrella [facility] 06-07-2023 08:05-0500 Systolic blood pressure 114 mm[Hg] Brice Estrella [facility] 06-07-2023 07:30-0500 Blood Pressure Location Brice Estrella [facility] 06-07-2023 07:30-0500 Diastolic blood pressure 70 mm[Hg] Brice Estrella [facility] 06-07-2023 07:30-0500 Heart rate 70 /min Brice Estrella [facility] 06-07-2023 07:30-0500 Respiratory rate 20 /min Brice Estrella [facility] 06-07-2023 07:30-0500 SaO2% (BldA) [Mass fraction] 96 % Brice Estrella [facility] 06-07-2023 07:30-0500 Systolic blood pressure 114 mm[Hg] Brice Estrella [facility] 06-07-2023 06:52-0500 Mean blood pressure 76 mm[Hg] Brice Estrella [facility] 06-07-2023 06:49-0500 Body temperature 97.88 [degF] Brice Estrella [facility] 06-07-2023 06:49-0500 Mean blood pressure 79 mm[Hg] Brice Estrella Xsilon [facility] Encounters Encounter Date Encounter Type Care Provider Facility Start: 03-08-2025 ambulatory Kang Ferrell ty:[facility] Start: 11-09-2024 End: 11-09-2024 Bamboo flowsheet Da Phillip DO Work Phone: [facility] Start: 11-09-2024 End: 11-09-2024 Bamboo flowsheet Da Phillip DO Work Phone: [facility] Start: 11-09-2024 End: 11-09-2024 ambulatory BRICE ESTRELLA Not Available Start: 11-09-2024 End: 11-09-2024 Office outpatient visit 25 minutes Da Rubio Kenji DO Work Phone: [facility] Comment on above: Nontoxic multinodula r goiter (CMS/HCC) (Primary Dx); Thyroid nodule (CMS/HCC) Start: 11-05-2024 End: 11-05-2024 Bamboo flowsheet Brice Estrella DO Work Phone: [facility] Start: 11-05-2024 End: 11-05-2024 Bamboo flowsheet Brice Estrella DO Work Phone: [facility] Start: 11-05-2024 End: 11-05-2024 ambulatory BRICE ESTRELLA Not Available Start: 11-05-2024 End: 11-05-2024 Patient encounter procedure Brice Estrella DO Work Phone: [facility] Comment on above: Triceps tendonitis ( Primary Dx); Lateral epicondylitis of right elbow Start: 10-30-2024 End: 10-30-2024 ambulatory Aggie Davis CHEESE WEIGHER-C Work Phone: [facility] Work Phone: Start: 10-30-2024 End: 10-30-2024 Departed Referred Aggie Davis CHEESE WEIGHER-C Work Phone: [facility] Start: 10-13-2024 End: 10-13-2024 Patient encounter procedure Aggie Davis CHEESE WEIGHER-C Work Phone: [facility] [place] Work Phone: Start: 10-13-2024 End: 10-13-2024 ambulatory Aggie Davis CHEESE WEIGHER-C Work Phone: [facility] Work Phone: Start: 09-21-2024 End: 09-21-2024 ambulatory Aggie Davis CHEESE WEIGHER-C Work Phone: [facility] Work Phone: Start: 09-21-2024 End: 09-21-2024 Discharged Recurring Aggie Mccormackmer CHEESE WEIGHER-C Work Phone: [facility] [place] Work Phone: Start: 09-14-2024 End: 09-14-2024 ambulatory Aggie Mccormackmer CHEESE WEIGHER-C Work Phone: [facility] Work Phone: Start: 09-14-2024 End: 09-14-2024 Patient encounter procedure Aggie Davis CHEESE WEIGHER-C Work Phone: [facility] [address] Work Phone: Start: 09-07-2024 End: 09-07-2024 ambulatory Carter Granger Facility:[facility] Start: 09-07-2024 End: 09-07-2024 Patient encounter procedure Kang BOSS [facility] Start: 09-03-2024 End: 09-03-2024 Bamboo flowsheet Olman De La Rosa DO Work Phone: [facility] [place] Start: 09-03-2024 End: 09-03-2024 Bamboo flowsheet Olman De La Rosa DO Work Phone: [facility] Start: 09-03-2024 End: 09-03-2024 Patient encounter procedure [...] Start: 08-31-2024 End: 08-31-2024 ambulatory Aggie Davis CHEESE WEIGHER-C Work Phone: [facility] Work Phone: Start: 08-31-2024 End: 08-31-2024 Patient encounter procedure Aggie Davis CHEESE WEIGHER-C Work Phone: [facility] Work Phone: Start: 08-31-2024 End: 08-31-2024 Patient encounter procedure Brice Estrella DO Work Phone: [facility] Comment on above: Lateral epicondyliti s of right elbow (Primary Dx); Right elbow pain; Triceps tendonitis Start: 08-31-2024 End: 08-31-2024 ambulatory BRICE ESTRELLA Not Available Start: 08-24-2024 End: 08-24-2024 ambulatory OLMAN DE LA ROSA Not Available Start: 08-20-2024 End: 08-20-2024 ambulatory [facility] Start: 08-20-2024 End: 08-20-2024 Bamboo flowsheet Olman De La Rosa DO Work Phone: [facility] Start: 08-20-2024 End: 08-20-2024 Bamboo flowsheet Olman De La Rosa DO Work Phone: [facility] Start: 08-20-2024 End: 08-20-2024 ambulatory OLMAN DE LA ROSA Not Available Start: 08-20-2024 End: 08-20-2024 Office outpatient new 45 minutes Olman De La Rosa DO Work Phone: [facility] Comment on above: Loss of consciousnes s (CMS/HCC) (Primary Dx); Bilateral hand numbness Start: 08-19-2024 Registered Recurring Aggie brandon CHEESE WEIGHER-C Work Phone: [facility] [place] Work Phone: Start: 08-18-2024 End: 08-18-2024 Bamboo flowsheet Mathieu Naqvi MD Work Phone: [facility] Start: 08-18-2024 End: 08-18-2024 Bamboo flowsheet Mathieu Naqvi MD Work Phone: [facility] Start: 08-18-2024 End: 08-18-2024 Office outpatient new 45 minutes Mathieu Naqvi MD Work Phone: [facility] Comment on above: Type 2 diabetes tad itus with hyperglycemia, with long-term current use of insulin (CMS/[facility]) (Primary Dx); Encounter for dietary consultation; Vitamin D deficiency; Primary hypertension (CMS/HCC); Hyperlipemia, mixed (CMS/HCC); Class 3 severe obesity due to excess calories with serious comorbidity and body mass index (BMI) of 40.0 to 44.9 in adult (CMS/HCC) Start: 08-18-2024 End: 08-18-2024 ambulatory MATHIEU NAQVI Not Available Start: 08-14-2024 ambulatory Kang BOSS Facility :[facility] Start: 08-14-2024 ambulatory Facility:[facility] Start: 07-22-2024 Non-patient / Non-visit Aggie CHICAS [facility] Work Phone: Start: 07-07-2024 End: 07-07-2024 Emergency department patient visit Tiny Fallon [facility] Start: 05-18-2024 End: 05-18-2024 ambulatory DA PHILLIP Not Available Start: 05-18-2024 End: 05-18-2024 Office outpatient visit 15 minutes Da Phillip DO Work Phone: [facility] Comment on above: Nontoxic multinodula r goiter (CMS/HCC) (Primary Dx); Thyroid nodule (CMS/HCC); Hearing loss, unspecified hearing loss type, unspecified laterality Start: 05-04-2024 End: 05-04-2024 Bamboo flowsheet Da Phillip DO Work Phone: [facility] Start: 05-04-2024 End: 05-04-2024 Bamboo flowsheet Da Rubio Biedenbach DO Work Phone: [facility] [place] Start: 04-13-2024 End: 04-13-2024 Bamboo flowsheet Da Saeededenbach DO Work Phone: [facility] Start: 04-13-2024 End: 04-13-2024 Bamboo flowsheet Da Saeededenbach DO Work Phone: [facility] Start: 04-13-2024 End: 04-13-2024 Departed Referred CHE[employer] WEIGHER-C Aggie Davis Work Phone: [facility] [place] Work Phone: Start: 04-13-2024 End: 04-13-2024 ambulatory CHE[employer] WEIGHER-C Aggie Davis Work Phone: [facility] Work Phone: Start: 04-13-2024 End: 04-13-2024 Office outpatient visit 25 minutes Da Saeededjoselito DO Work Phone: [facility] Comment on above: Nontoxic multinodula r goiter (CMS/HCC) (Primary Dx); Thyroid nodule (CMS/HCC) Start: 04-10-2024 End: 04-10-2024 Bamboo flowsheet aD Rubio Biedenbach DO Work Phone: [facility] [place] Start: 04-10-2024 End: 04-10-2024 Bamboo flowsheet Da Rubio Biedenbach DO Work Phone: [facility] Start: 04-10-2024 End: 04-10-2024 Office outpatient visit 25 minutes Da S Biedenbach DO Work Phone: [facility] Comment on above: Thyroid nodule (CMS/ HCC) (Primary Dx); Nontoxic multinodular goiter (CMS/HCC) Start: 04-10-2024 End: 04-10-2024 ambulatory DA PHILLIP Not Available Start: 03-26-2024 End: 03-26-2024 Bamboo flowsheet Da Phillip DO Work Phone: [facility] Start: 03-26-2024 End: 03-26-2024 Bamboo flowsheet Da Phillip DO Work Phone: [facility] Start: 03-26-2024 End: 03-26-2024 Patient encounter procedure [employer] Aggie Davis Work Phone: [facility] [place] Work Phone: Start: 03-26-2024 End: 03-26-2024 ambulatory [employer] Aggie Davis Work Phone: [facility] Work Phone: Start: 03-26-2024 End: 03-26-2024 Office outpatient new 45 minutes Da Phillip DO Work Phone: [facility] Comment on above: Thyroid nodule (CMS/ HCC) (Primary Dx); Nontoxic multinodular goiter (CMS/HCC); Thyroid dysfunction (CMS/HCC) Start: 03-26-2024 End: 03-26-2024 ambulatory DA PHILLIP Not Available Start: 02-14-2024 End: 02-14-2024 ambulatory [employer]C Aggie Davis Work Phone: [facility] Work Phone: Start: 02-14-2024 End: 02-14-2024 Departed Referred [employer]HER[employer]C Aggie Davis Work Phone: [facility] Start: 01-25-2024 Non-patient / Non-visit CHE[employer] WEIGHER-C Keke Davis Work Phone: [facility] Work Phone: Start: 12-31-2023 End: 12-31-2023 ambulatory BRICE ESTRELLA Not Available Start: 11-11-2023 End: 02-26-2024 ambulatory Brice Estrella [facility] Start: 2023 Chart abstracting Brice brantley DO Work Phone: [facility] Start: 08-27-2023 End: 08-27-2023 Patient encounter procedure Brice Estrella DO Work Phone: [facility] Comment on above: Left knee pain, unsp ecified chronicity (Primary Dx) Start: 08-22-2023 End: 08-22-2023 ambulatory [employer] Aggie Isabel Susan Work Phone: [facility] Work Phone: Start: 08-22-2023 End: 08-22-2023 Discharged Recurring [employer]-C Aggie Susan Work Phone: [facility]-[employer] [address] Start: 06-07-2023 End: 06-07-2023 Admission to same day surgery center Brice Estrella [facility] Start: 12-26-2022 ambulatory AGGIE SUSAN Facility: [...] End: 04-06-2022 ambulatory AGGIE SUSAN Facility:[facility] Start: 08-28-2022 ambulatory AGGIE SUSAN Facility: [facility] Start: 03-15-2022 End: 03-16-2022 ambulatory AGGIE DAVIS Facility:[facility] Start: 02-14-2022 End: 02-15-2022 ambulatory AGGIE DAVIS Facility:[facility] Start: 11-09-2021 End: 11-09-2021 Patient encounter procedure Michele Jane [facility] Procedures Date Procedure Procedure Detail Performing Clinician Start: 10-13-2024 Urine culture Aggie brandon [employer] Work Phone: Start: 09-14-2024 Plain X-ray of right tibia and right fibula Aggie Davis [employer] Work Phone: Start: 09-14-2024 MRI of head Aggie guzmán [employer] Work Phone: Start: 09-03-2024 End: 09-03-2024 Needle [...] Michele dill right knee arthroscopy x2 Emilee jacobs [place] Plan of Treatment Date Care Activity Detail Author Start: 06-01-2025 Pneumococcal Vaccine: 65+ Years (3 - PPSV23 or PCV20) Pneumococcal Vaccine: 65+ Years (3 - PPSV23 or PCV20) [facility] Start: 06-01-2025 Pneumococcal Vaccine: 65+ Years (3 of 3 - PCV20 or PCV21) Pneumococcal Vaccine: 65+ Years (3 of 3 - PCV20 or PCV21) [facility] Start: 06-01-2025 Pneumococcal Vaccine: 65+ Years (3 of 3 - PPSV23 or PCV20) Pneumococcal Vaccine: 65+ Years (3 of 3 - PPSV23 or PCV20) [facility] Start: 05-17-2025 End: 05-17-2025 Patient encounter procedure 05/17/2025 10:15 AM EDT Office Visit [facility] [address] [place] [id number] Da Phillip DO [address] [place] [address] [facility] Start: 03-29-2025 Influenza vaccination Influenza Vaccine (Season Ended) [facility] Start: 01-14-2025 End: 01-14-2025 Patient encounter procedure 01/14/2025 12:00 PM EDT Office Visit [facility] [address] [address] [place] [phone] Payton Goodwin DO [address] [place] [address] [facility] Start: 01-04-2025 End: 01-04-2025 Patient encounter procedure 01/04/2025 1:15 PM EDT Office Visit [facility] [address] [facility] [address] [place] [phone] Olman De La Rosa, [address] [place] [address] [facility] Start: 11-16-2024 End: 11-16-2024 Patient encounter procedure 11/16/2024 10:50 AM EDT Office Visit [facility] [address] [place] [phone] Mathieu Naqvi MD [address] [place] [address] [facility] Start: 11-09-2024 End: 11-09-2024 Professional / ancillary services management 11/09/2024 1:45 PM EDT Ancillary Procedure [facility] [address] [place] [place] [phone] [facility] Start: 11-09-2024 End: 11-09-2024 Patient encounter procedure 11/09/2024 10:00 AM EDT Office Visit [facility] [place] [address] [place] [phone] Da Phillip, DO [address] [place] [address] [facility] [place] Start: 11-02-2024 End: 11-02-2024 Patient encounter procedure 11/02/2024 10:30 AM EDT Office Visit [facility] [address] [place] [phone] Brice Estrella, DO [address] [place] [address] [facility] Start: 10-30-2024 Urine culture [facility] Start: 10-30-2024 Bacteria identified in Urine by Culture [facility]rine [facility] Start: 10-13-2024 Bacteria identified in Urine by Culture Urine [facility] Start: 10-13-2024 Urine culture [facility] Start: 10-13-2024 Insulin C-peptide measurement [facility] Start: 09-28-2024 End: 09-28-2024 Patient encounter procedure 09/28/2024 1:15 PM EST Office Visit [facility] [address] [place] [phone] Olman De La Rosa DO [address] [place] [address] [facility] Start: 09-10-2024 End: 09-10-2024 ambulatory 09/10/2024 1:00 PM EST Evaluation [facility] [address] [place] [phone] Sofya Brasher, OT [address] [place] [address] [facility] Start: 09-03-2024 End: 09-03-2024 Patient encounter procedure [facility] Comment on above: Arrived Start: 09-03-2024 End: 09-03-2024 ambulatory 09/03/2024 12:30 PM EST Evaluation [facility] [address] [place] [address] Sofya Brasher, OT [address] [place] [address] [facility] Start: 08-31-2024 End: 08-31-2024 Patient encounter procedure [facility] Comment on above: Arrived Start: 08-24-2024 End: 08-24-2024 Clinical Support 08/24/2024 10:45 AM EST Clinical Support STEFAN RAROYO [address] [place] [id number] STEFAN DRAPERUE Start: 08-20-2024 End: 08-20-2025 Creatinine [Mass/volume] in Serum or Plasma Creatinine, Serum Lab Routine Loss of consciousness ([facility]) Expected: 08/20/2024 (Approximate), Expires: 08/20/2025 [facility] Comment on above: Expected: 08/20/2024 (Approximate), Expi res: 08/20/2025 Start: 08-20-2024 End: 08-20-2025 EEG, Including Recording Awake or Asleep EEG, Including Recording Awake or Asleep Neurology Routine Loss of consciousness ([facility]) Expected: 08/20/2024 (Approximate), Expires: 08/20/2025 [facility] Comment on above: Expected: 08/20/2024 (Approximate), Expi res: 08/20/2025 Start: 08-20-2024 End: 08-20-2025 EMG 2 Extremities EMG 2 Extremities Neurology Routine Bilateral hand numbness Expected: 08/20/2024, Expires: 08/20/2025 [facility] Work Phone: Comment on above: Expected: 08/20/2024, Expires: Start: 08-20-2024 End: 08-20-2025 MR Brain WO and W contrast IV MR brain w and wo contrast routine Imaging Routine Loss of consciousness ([facility]) Expected: 08/20/2024, Expires: 08/20/2025 [facility] Comment on above: Expected: 08/20/2024, Expires: Start: 08-20-2024 End: 08-20-2024 Patient encounter procedure 08/20/2024 9:00 AM EST Office Visit [facility] [place] [address] [address] [place] [address] Olman De La Rosa DO [address] [place] [address] [facility] Start: 08-18-2024 End: 08-18-2025 25-hydroxyvitamin D3 [Mass/volume] in Serum or Plasma Vitamin D 25 hydroxy Total Lab Routine Type 2 diabetes mellitus with hyperglycemia, with long-term current use of insulin ([facility]) Expected: 08/18/2024 (Approximate), Expires: 08/18/2025 [facility] Comment on above: Expected: 08/18/2024 (Approximate), Expi res: 08/18/2025 Start: 08-18-2024 End: 08-18-2025 C-peptide C-peptide Lab Routine Type 2 diabetes mellitus with hyperglycemia, with long-term current use of insulin ([facility]) Expected: 08/18/2024 (Approximate), Expires: 08/18/2025 [facility] Work Phone: Comment on above: Expected: 08/18/2024 (Approximate), Expi res: 08/18/2025 Start: 08-18-2024 End: 08-18-2025 Lipid 1996 panel - Serum or Plasma Lipid panel Lab Routine Type 2 diabetes mellitus with hyperglycemia, with long-term current use of insulin ([facility]) Expected: 08/18/2024 (Approximate), Expires: 08/18/2025 [facility] Comment on above: Expected: 08/18/2024 (Approximate), Expi res: 08/18/2025 Start: 08-18-2024 End: 08-18-2025 Microalbumin/Creatinine panel in random Urine Microalbumin / creatinine urine ratio Lab Routine Type 2 diabetes mellitus with hyperglycemia, with long-term current use of insulin ([facility]) Expected: 08/18/2024 (Approximate), Expires: 08/18/2025 [facility] Comment on above: Expected: 08/18/2024 (Approximate), Expi res: 08/18/2025 Start: 08-18-2024 End: 08-18-2025 Renal function panel Renal function panel Lab Routine Type 2 diabetes mellitus with hyperglycemia, with long-term current use of insulin ([facility]) Expected: 08/18/2024 (Approximate), Expires: 08/18/2025 [facility] Comment on above: Expected: 08/18/2024 (Approximate), Expi res: 08/18/2025 Start: 08-18-2024 End: 08-18-2024 Patient encounter procedure 08/18/2024 10:30 AM EST Office Visit [facility] [address] [place] [address] Mathieu Naqvi MD [address] [place] [address] Arrived [facility] Comment on above: Arrived Start: 07-27-2024 End: 07-27-2024 Patient encounter procedure 07/27/2024 1:00 PM EST Office Visit [facility] AUD [address] [facility] [place] [address] Chana Iglesias S, AUD [address] [place] [place] [address] [facility] Start: 05-04-2024 End: 05-04-2024 Patient encounter procedure 05/04/2024 10:15 AM EDT Office Visit [facility] [place] [address] [place] [phone] Da Phillip, DO [address] [place] [place] [address] [facility] [place] Comment on above: Arrived Start: 04-13-2024 End: 04-13-2024 Patient encounter procedure 04/13/2024 11:00 AM EDT [facility] [place] [address] [place] [place] [address] Da Phillip, DO [address] [place] [address] [facility] [place] Start: 04-10-2024 End: 04-10-2024 Patient encounter procedure [facility] Comment on above: Arrived Start: 03-29-2024 Influenza vaccination Influenza Vaccine (#1) [facility] Start: 03-26-2024 End: 03-26-2025 Thyrotropin [Units/volume] in Serum or Plasma [facility] Comment on above: Expected: 03/26/2024 (Approximate), Expi res: 03/26/2025 Start: 03-26-2024 End: 03-26-2025 Triiodothyronine (T3) [Mass/volume] in Serum or Plasma T3 Lab Routine Thyroid nodule (CMS/HCC) Expected: 03/26/2024 (Approximate), Expires: 03/26/2025 [facility] Work Phone: Comment on above: Expected: 03/26/2024 (Approximate), Expi res: 03/26/2025 Start: 03-26-2024 End: 03-26-2024 Patient encounter procedure 03/26/2024 11:00 AM EDT Office Visit [facility] [place] [address] [place] [address] Da Phillip, DO [address] [address] Arrived [facility] [place] Comment on above: Arrived Start: 10-08-2023 End: 10-08-2023 Patient encounter procedure 10/08/2023 10:00 AM EDT Office Visit [facility] [address] [facility] [place] [phone] Brice Estrella DO [address] [place] [address] [facility] Start: 07-29-2023 Pneumococcal Vaccine: 65+ Years (3 of 3 - PPSV23 or PCV20) Pneumococcal Vaccine: 65+ Years (3 of 3 - PPSV23 or PCV20) [facility] Start: 1994 Screening for malignant neoplasm of breast Mammogram [facility] Start: 1973 Urine screening for protein Diabetes: Urine Protein Screening [facility] Start: 1964 Glaucoma screening Diabetes: Retinopathy Screening [facility] Start: 1954 Hemoglobin A1c measurement Diabetes: Hemoglobin A1C [facility] Start: 1954 Medicare Annual Wellness (AWV) Medicare Annual Wellness (AWV) [facility] Start: 1954 Screening for malignant neoplasm of colon [facility] Renal function 2000 panel - Serum or Plasma [facility] Immunizations Immunization Date Immunization Notes Care Provider Epifanio bhatia 06-11-2024 zoster vaccine recombinant Kang BOSS [facility] 01-11-2024 zoster vaccine recombinant Kang BOSS [facility] 12-27-2023 zoster vaccine recombinant Da Biedenbach DO Work Phone: [facility] 06-30-2023 Influenza, High-dose Seasonal, Quadrivalent, Preservative Free Da Biedenbach DO Work Phone: [facility] 06-30-2023 influenza virus vaccine, unspecified formulation Da Biedenbach DO Work Phone: [facility] 10-30-2022 influenza virus vaccine, unspecified formulation Kang BOSS [facility] 10-30-2022 Influenza, High-dose Seasonal, Quadrivalent, Preservative Free Da Biedenbach DO Work Phone: [facility] 05-31-2022 influenza virus vaccine, unspecified formulation Kang BOSS [facility] 05-31-2022 Influenza, Seasonal, Quadrivalent, Adjuvanted Da Biedenbach DO Work Phone: [facility] 12-19-2020 SARS-CoV-2 (COVID-19 ) mRNA-1273 vaccine Kang BOSS [facility] 11-22-2020 SARS-CoV-2 (COVID-19 ) mRNA-1273 vaccine Kang BOSS [facility] 11-14-2020 SARS-CoV-2 (COVID-19 ) mRNA-6435 vaccine Michele Jane [facility] 06-01-2020 influenza virus vaccine, unspecified formulation Kang BOSS [facility] 06-01-2020 pneumococcal conjuga te vaccine, 13 valent Da Kenji DO Work Phone: [facility]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
[2024-11-14 10:32] LABS: Bilirubin Urine NEGATIVE (NEGATIVE); Blood Urine LARGE (NEGATIVE); Clarity Urine SL CLOUDY (CLEAR); Color Urine LT. YELLOW (YELLOW); Glucose Urine UA >=1000 mg/dL (NEGATIVE); Ketones Urine NEGATIVE (NEGATIVE); Leukocyte Esterase Urine TRACE (NEGATIVE); Nitrite Urine NEGATIVE (NEGATIVE); Protein Urine NEGATIVE (NEG/TRACE); Urobilinogen Urine 0.2 EU/dL (0.2-1.0)
[2024-11-14 10:40] LABS: Estimated Average Glucose 146 mg/dL; Glycohemoglobin A1C 6.7 % (4.5-6.2)
[2024-11-14 10:57] LABS: Alanine Aminotransferase 21 U/L (14-59); Albumin Level 3.1 g/dL (3.4-5.0); Alkaline Phosphatase 115 U/L (46-116); Anion Gap 9.5; Aspartate Amino Transferase 14 U/L (15-37); BUN Creatinine Ratio 11.1; Bilirubin Total 0.3 mg/dL (0.2-1.0); Calcium 8.6 mg/dL (8.5-10.1); Carbon Dioxide 30.3 mmol/L (21.0-32.0); Chloride 105 mmol/L (98-107); Estimated GFR (African America 38 (>=60 mL/min/1.73m^2); Estimated GFR (Non-African Ame 31 (>=60 mL/min/1.73m^2); Globulin 3.2 g/dL; Glucose 151 mg/dL (74-106); Potassium 3.8 mmol/L (3.5-5.1); Sodium 141 mmol/L (136-145); Total Protein 6.3 g/dL (6.4-8.2)
== END 2024-11-14 10:10 | disposition home or self-care (01) ==
LOC: LAB 10:09
PROVIDERS: PCP Nurse Practitioner Family; Visit Provider Nurse Practitioner Family
DX: E11.49 Type 2 diabetes mellitus with other diabetic neurological complication (principal); R82.998 Other abnormal findings in urine
CPT/HCPCS: 36415; 80053; 81003; 83036; 87086

== ENCOUNTER 2024-12-22 12:10 | Outpatient (OUT) | payer MEDICARE, SELFPAY ==
--- OUTSIDE RECORDS SUMMARY | 2024-12-04 06:30 | XMS_ITS ---
Author Organization The [facility] in [place] Address [address] [place] [address] Care Team Providers Care English Language Arts Teacher Name Role Phone Aggie Machuca Primary Care Provider [phone] Allergies Allergen (clinical drug ingredient) Drug/Non Drug Allergy documented on EMR Reaction Allergy Type Onset Date Status Darvocet-N 50 Unknown Drug Allergy Act arina Vicodin Unknown Drug Allergy Active codeine Codeine Unknown Drug Allergy Active cefuroxime Cefuroxime itching Drug Allergy Activ e Penicillin Unknown Drug Allergy Active REASON FOR VISIT needs extension for work, right arm pain Medications Medication SIG (Take, Route, Frequency, Duration) Notes Start Date End Date Status busPIRone HCl 7.5 MG TAKE 1 TABLET TWICE DAILY for 90 Active Dexcom G7 Recreational Programs Director A ctive FLUoxetine HCl 20 MG TAKE 1 CAPSULE EVERY DAY for 90 Active Dexcom G7 Sensor Act arina Aspirin 81 81 MG 1 tablet Orally Once a day Active Furosemide 20 MG TAKE 1 TABLET ONE TIME DAILY NEEDED for 30 days Active Potassium Chloride Dipti ER 10 MEQ 1 tablet with food Orally Twice a day as needed with Lasix for 30 days 12/04/2024 Active Albuterol Sulfate HFA 108 (90 Base) MCG/ACT 2 puff as needed Inhalation every 4 hrs for 30 days 12/11/2023 Active Advil Cold/Sinus 30-200 MG 1 tablet as n eeded Orally every 6 hrs PRN Active Alendronate Sodium 70 MG TAKE 1 TABLET E VERY WEEK for 84 Active Simvastatin 40 MG TAKE 1 TABLET EVERY NIGHT for 90 Active True Metrix Blood Glucose Test - TEST BLOOD SUGAR THREE TIMES DAILY for 90 Active True Metrix Air Glucose Meter w/Device USE DIRECTED for 90 Active TRUEplus Lancets 33G - TEST BLOOD SUGAR THREE TIMES DAILY for 90 Active True Metrix Level 1 Low USE DIRECTED WITH GLUCOSE METER for 90 Active Omeprazole 40 MG TAKE 1 CAPSULE ONE TIME DAILY 30 MINUTES BEFORE MORNING MEAL. for 90 Active Pen Mexia Active Ozempic (0.25 or 0.5 MG/DOSE) 2 MG/3ML 0.5mg Subcutaneous weekly for 28 days call for next dose 07/31/2024 Active ReliOn Insulin Syringe 31G X 15/64 0.3 ML USE 1 ONCE DAILY DIRECTED for 30 Active Pregabalin 75 MG TAKE 1 CAPSULE TWICE DAILY for 30 11/15/2024 Active NovoLIN R FlexPen 100 UNIT/ML sliding scale Injection TID Active Mexia & Syringes - as directed Active Cyclobenzaprine HCl 5 MG 1 tablet Orally BID prn for 10 days 11/06/2024 Active NovoLIN N 100 UNIT/ML 27 units Subcutaneous bid Active Nitroglycerin 0.4 MG as directed Sublingual PRN Active Fluconazole 150 MG 1 tablet Orally once for 1 days 12/04/2024 Active Meclizine HCl 25 MG 1 tablet as needed Orally every 12 hrs for 30 days PRN Active Jardiance 25 MG TAKE 1 TABLET EVERY DAY Orally Once a day for 90 days Active Cipro 500 MG 1 tablet Orally every 12 hrs for 10 days 06/05/2024 Active Mupirocin 2 % 1 application Externally Twice a day for 5 days Active hydroCHLOROthiazide 25 MG TAKE 1 TABLET EVERY MORNING for 90 Active Social History Tobacco Use: Social History Observation Description Date Details (start date - stop date) Current Smoker NA - NA Tobacco Use/Smoking Question Answer Notes Patient is a current smoker How often do you smoke cigarettes? every day How many cigarettes a day do you smoke? 21-30 How soon after you wake up do you smoke your fir st cigarette? 6-30 minutes Are you interested in quitting? Not ready to heron t AUDIT-C (Standard) Question Answer Notes Did you have a drink contain ing alcohol in the past year? Yes How often did you have a dri nk containing alcohol in the past year? Never (0 point) How many drinks did you have on a typical day when you were drinking in the past year? 1 or 2 drinks (0 point) How often did you have six o r more drinks on one occasion in the past year? Never (0 point) Points 0 Interpretation Negative Vital Signs Weight 199.4 lbs 12/04/2024 Height 60 in 12/04/2024 Blood pressure systolic 120 mm Hg 12/05/19 25 Blood pressure diastolic 74 mm Hg 025 BMI 38.94 kg/m2 12/04/2024 Encounters Encounter Location Date Provider Diagnosis [facility] [address] [place] [address] 12/04/2024 Aggie Machuca Dysuria R30.0 ; Bilateral lower extremity edema R60.0 and Chronic midline low back pain without sciatica M54.50 Assessments Encounter Date Diagnosis (ICD Code) Assessment Notes Treatment Notes Treatment Clinical Notes Section Notes 12/04/2024 Dysuria (ICD-10 - R30.0) if sx dont improve notify office needs UA CS 12/04/2024 Bilateral lower extremity edema (ICD-10 - R60.0) 12/04/2024 Chronic midline low back pain without sciatica (ICD-10 - M54.50) Plan Of Treatment Medication Medication Name Sig Start Date Stop Date Notes Furosemide 20 MG TAKE 1 TABLET ONE TI ME DAILY NEEDED for 30 days Potassium Chloride Dipti ER 10 MEQ 1 tabl et with food Orally Twice a day as needed with Lasix for 30 days 12/04/2024 Cyclobenzaprine HCl 5 MG 1 tablet Orally BID prn for 10 days 11/06/2024 Fluconazole 150 MG 1 tablet Orally once for 1 days 12/04/2024 Cipro 500 MG 1 tablet Orally ever y 12 hrs for 10 days 06/05/2024 Treatment Notes Assessment Notes Dysuria if sx dont improve n otify office needs UA CS Next Appt Details Follow Up: prn, Reason: Provider Name:Aggie cota, 12/22/2024 01:30:00 PM, [address] [place], [address], Progress Notes * Virgen GRIFFIN SDOB :1955 (69 yo F)Acc No.[id number]:12/04/2024 Progress Note Patient: Lyudmila Virgen GONZALEZ Provider: Keke Machuca ([facility]), TENNIS PROFESSIONAL :1955 A ge:69 Y S ex:Female Date:12/04/2024 Address:[address], [place], [id number] Check In:10:23 AM ESTCheck O ut:10:52 AM EST Subjective: * Chief Complaints: * 1 . Needs extension for work, right arm pain. * HPI: G eneral: sx right elbow upcoming not ready to go back to work going to continue therapy edema better with lasix, wants take prn drinking more water need more cyclobenzaprine burning with urination, and itching. * ROS: G eneral/Constitutional: Fever d enies. H eadache d enies. W eight loss?denies. O phthalmologic: Discharge d enies. E ye Pain d enies. I tching and redness d enies. E NT: Nasal discharge d enies. N rachel congestion d enies.?Sore throat d enies. C ardiovascular: Chest tightness/ heavy pressure d enies. R apid heart rate d enies. S welling of extremities i mproved with lasix use prn. C hest pain d enies. R espiratory: Productive cough d enies. C hest pain d enies. C ough d enies. S hortness of breath d enies. W heezing d enies. ? G astrointestinal: Abdominal pain d enies. C onstipation d enies. D ecreased appetite d enies. D iarrhea d enies. N ausea d enies. V omiting?denies. G enitourinary: Urinary incontinence d enies. P ainful urination a dmits and itching. M usculoskeletal: Joint pain r ight arm, elbow pain. B ack pain a dmits, chronic. N elizabeth pain d enies. M uscle aches d enies. S kin: Rash d enies. S kin lesion(s) d enies. ? * Active Problem List M79.661 Pain in right lower leg Modified On:12/06/2022W/U Status:confirmed M89.9 Disorder of bone, un specified Modified On:12/06/2022 Status:confirmed R07.89 Other chest pain Modified On:12/06/2022 Status:confirmed R53.83 Fatigue Modified On:12/06/2022 Status:confirmed I10 Hypertension Modified On:04/15/2023 Status:confirmed F17.210 Cigarette smoker Modified On:12/06/2022 Status:confirmed I25.10 CAD (coronary artery disease) Modified On:12/06/2022 Status:confirmed M54.2 Neck pain Modified On:12/06/2022 Status:confirmed F32.9 Depression Modified On:12/06/2022 Status:confirmed G47.00 Insomnia Modified On:12/06/2022 Status:confirmed R60.0 Bilateral lower extr emity edema Modified On:12/06/2022 Status:confirmed R42 Dizziness Modified On:12/06/2022 Status:confirmed J30.9 Allergic rhinitis Modified On:12/06/2022 Status:confirmed H91.90 Hearing loss Modified On:12/06/2022 Status:confirmed M81.0 Osteoporosis Modified On:12/06/2022 Status:confirmed M79.605 Left leg pain Modified On:12/06/2022 Status:confirmed L73.2 Hidradenitis suppura tiva Modified On:12/06/2022 Status:confirmed M25.511 Pain in right should er Modified On:12/06/2022 Status:confirmed E11.319 Diabetic retinopathy Modified On:12/06/2022 Status:confirmed M11.80 Pseudogout Modified On:12/06/2022 Status:confirmed I25.2 History of myocardia l infarction Modified On:12/06/2022 Status:confirmed Z00.00 Wellness examination Modified On:12/06/2022 Status:confirmed 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 Modified On:04/29/2023 Status:confirmed M79.642 Pain in joint of lef t hand Modified On:05/11/2023W/U Status:confirmed N63.0 Lump or mass in remedios st Modified On:12/06/2022 Status:confirmed R51.9 Headache, unspecifie d Modified On:12/06/2022 Status:confirmed R05.3 Chronic cough Modified On:12/06/2022 Status:confirmed M54.50 Chronic midline low back pain without sciatica Modified On:12/06/2022 Status:confirmed M79.605 Pain in left leg Modified On:10/02/2022 Status:confirmed I10 Essential (primary) hypertension Modified On:10/02/2022 Status:confirmed 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 Modified On:10/02/2022 Status:confirmed N18.32 Chronic kidney disea se, stage 3b Modified On:12/17/2022 Status:confirmed F41.9 Anxiety disorder, un specified Modified On:04/29/2023 Status:confirmed W54.0XXA Dog bite Modified On:07/10/2023 Status:confirmed K21.9 GERD (gastroesophage al reflux disease) Modified On:11/06/2023 Status:confirmed E04.2 Multinodular goiter Modified On:02/04/2024 Status:confirmed E04.1 Thyroid nodule Modified On:02/27/2024 Status:confirmed G62.9 Peripheral neuropath y Modified On:05/14/2024 Status:confirmed R40.0 Daytime somnolence Modified On:06/29/2024 Status:confirmed N28.89 Kidney mass Modified On:07/10/2024 Status:confirmed N18.4 Stage 4 chronic kidn ey disease Modified On:08/21/2024 Status:confirmed H40.9 Glaucoma Modified On:08/21/2024 Status:confirmed G47.33 NATALEE (obstructive sle ep apnea) Modified On:09/07/2024 Status:confirmed I10 HTN (hypertension) Modified On:11/20/2024U Status:confirmed E66.9 Class 2 obesity Modified On:04/25/2025W/U Status:confirmed * Medical History: L eft leg pain, Folliculitis, Headache, unspecified, Skin lesion, Pain in right lower leg, Over weight, Unspecified chronic otitis externa, unspecified ear, Hidradenitis suppurativa, Ear pain, right, Acute sinusitis, Depression, Pain in right shoulder, Bite, insect, Bilateral lower extremity edema, Dysuria, Diabetic retinopathy, Hearing loss, Unspecified tear of unspecified meniscus, current injury, right knee, sequela, Pharyngitis, Other chest pain, Neck pain, Chronic cough, Pseudogout, Dizziness, Headache, unspecified, Osteoporosis, Fatigue, Wellness examination, Pain in joint of left hand, Hypertension, Gluteal tendinitis, left hip, Disorder of bone, unspecified, CAD (coronary artery disease), Chronic midline low back pain without sciatica, Paresis of lower extremity, Allergic rhinitis, Lipoma of back, Insomnia, Lump or mass in breast, Cigarette smoker, Diabetes mellitus with neurological manifestation, History of myocardial infarction. * Surgical History: T onsilectomy , Knee Surgery- Right , Foot Surgery- Right , Gall Bladder Removal , Hysterectomy , Trigger Thumb- Right , Trigger Finger- Right , Carpall Tunnel . * Hospitalization/Major Diagno stic Procedure: M IA 11/20. * Family History: F ather: 90 yrs, glaucoma, congestive heart failure, type II diabetes. M other: 86 yrs, seizure disorder. B rother(s): alive. S on(s): alive. 2 brother(s) - healthy. 3 son(s) - healthy. . Son- 1 . * Social History: T obacco Use: T obacco Use/Smoking P atient is a c urrent smoker H ow often do you smoke cigarettes? e very day H ow many cigarettes a day do you smoke? 2 1-30 H ow soon after you wake up do you smoke your first cigarette? 6 -30 minutes A re you interested in quitting? N ot ready to quit D rug/Alcohol: A ELVIRA-C (Standard) D id you have a drink containing alcohol in the past year? Y es H ow often did you have a drink containing alcohol in the past year? N ever (0 point) H ow many drinks did you have on a typical day when you were drinking in the past year? 1 or 2 drinks (0 point) H ow often did you have six or more drinks on one occasion in the past year? N ever (0 point) P oints 0 I nterpretation N egative * Medications: T aking Advil Cold/Sinus(Pseudoephedrine-Ibuprofen) 30-200 MG Tablet 1 tablet as needed Orally every 6 hrs , Notes to Pharmacist: PRN, Taking Albuterol Sulfate HFA 108 (90 Base) MCG/ACT Aerosol Solution 2 puff as needed Inhalation every 4 hrs , Taking Alendronate Sodium 70 MG Tablet TAKE 1 TABLET EVERY WEEK , Taking Aspirin 81(Aspirin) 81 MG Tablet Chewable 1 tablet Orally Once a day , Taking busPIRone HCl 7.5 MG Tablet TAKE 1 TABLET TWICE DAILY , Taking Cyclobenzaprine HCl 5 MG Tablet 1 tablet Orally BID prn , Taking Dexcom G7 Recreational Programs Director , Taking Dexcom G7 Sensor , Taking FLUoxetine HCl 20 MG Capsule TAKE 1 CAPSULE EVERY DAY , Taking Furosemide 20 MG Tablet TAKE 1 TABLET ONE TIME DAILY NEEDED , Taking hydroCHLOROthiazide 25 MG Tablet TAKE 1 TABLET EVERY MORNING , Taking Jardiance(Empagliflozin) 25 MG Tablet TAKE 1 TABLET EVERY DAY Orally Once a day , Taking Meclizine HCl 25 MG Tablet Chewable 1 tablet as needed Orally every 12 hrs , Notes to Pharmacist: PRN, Taking Mupirocin 2 % Ointment 1 application Externally Twice a day , Taking Mexia & Syringes - Miscellaneous as directed , Taking Nitroglycerin 0.4 MG Tablet Sublingual as directed Sublingual , Notes to Pharmacist: PRN, Taking NovoLIN N(Insulin NPH (Human) (Isophane)) 100 UNIT/ML Suspension 27 units Subcutaneous bid , Taking NovoLIN R FlexPen(Insulin Regular Human) 100 UNIT/ML Solution Pen-injector sliding scale Injection TID , Taking Omeprazole 40 MG Capsule Delayed Release TAKE 1 CAPSULE ONE TIME DAILY 30 MINUTES BEFORE MORNING MEAL. , Taking Ozempic (0.25 or 0.5 MG/DOSE)(Semaglutide(0.25 or 0.5MG/DOS)) 2 MG/3ML Solution Pen-injector 0.5mg Subcutaneous weekly , Notes to Pharmacist: call for next dose, Taking Pen Mexia , Taking Pregabalin 75 MG Capsule TAKE 1 CAPSULE TWICE DAILY , Taking ReliOn Insulin Syringe(Insulin Syringe- Needle U-100) 31G X 15/64 0.3 ML Miscellaneous USE 1 ONCE DAILY DIRECTED , Taking Simvastatin 40 MG Tablet TAKE 1 TABLET EVERY NIGHT , Taking True Metrix Air Glucose Meter(Blood Glucose Monitoring Suppl) w/Device Kit USE DIRECTED , Taking True Metrix Blood Glucose Test(Glucose Blood) - Strip TEST BLOOD SUGAR THREE TIMES DAILY , Taking True Metrix Level 1(Blood Glucose Calibration) Low Solution USE DIRECTED WITH GLUCOSE METER , Taking TRUEplus Lancets 33G(Lancets) - Miscellaneous TEST BLOOD SUGAR THREE TIMES DAILY , Medication List reviewed and reconciled with the patient * Allergies: P enicillin - Criticality High, Vicodin - Criticality High, Darvocet-N 50 - Criticality High, Codeine, Cefuroxime: itching - Allergy. Objective: * Vitals: W t:199.4lbs, Ht: 60 in, BP:120/74mm Hg, BMI:38.94Index, Ht-cm: 152.4 cm, Wt-k.45 kg. * Examination: G eneral Examinations: GENERAL APPEARANCE: a lert and oriented, i n no acute distress. EYES: c onjunctiva normal, sclera non-icteric. NOSE: n ormal external appearance. LUNGS: d iminished breath sounds in the bases. CARDIO: r egular rate and rhythm, S1, S2 normal, no edema.? ABDOMEN: s oft, nontender. MUSCULOSKELETAL: d ecreased ROM due to arthritic pain, right arm pain, using cane. SKIN: w arm and dry. Assessment: * Assessment: 1. D ysuria - R30.0 (Primary) 2 . B ilateral lower extremity edema - R60.0? 3. C hronic midline low back pain without sciatica - M54.50 Plan: * Treatment: 2. B ilateral lower extremity edema Refill Furosemide Tablet, 20 MG, TAKE 1 TABLET ONE TIME DAILY NEEDED, 30 days, 30, Refills 5;?Start Potassium Chloride Dipti ER Tablet Extended Release, 10 MEQ, 1 tablet with food, Orally, Twice a day as needed with Lasix, 30 days, 60, Refills 5. 3. C hronic midline low back pain without sciatica Refill Cyclobenzaprine HCl Tablet, 5 MG, 1 tablet, Orally, BID prn, 10 days, 20, Refills 2. ? * Preventive Medicine: Screenings/Counseling: B OK ACTION PLAN Above Normal BMI Follow-up D ietary management education, guidance, and counseling T OBACCO ACTION PLAN Patient counselled on the dangers of tobacco use and urged to quit. . * Follow Up: p rn * * Electronically signed by Alma Machuca , BEHAVIOR INTERVENTIONIST, ACCESSIBILITY LIFT [email or web address] on 12/07/2024 at 09:39 AM EDT Sign off status: Completed Visit Status: C HK (Check Out) true * Provider: Keke Machuca (TTC), TENNIS PROFESSIONAL Date: 12/04/2024 Generated for Maurii kristine/Darlene/eTransmitting on: 12/22/2024 12:14 PM EDT History and Physical Notes * HPI (History of Present Illness) Category Sub-Category Detail Notes Category Not es General sx right elbow upcoming not ready to go back to work going to continue therapy edema better with lasix, wants take prn drinking more water need more cyclobenzaprine burning with urination, and itching Examination Category Sub-Category Detail Notes Category Not es General Examinations GENERAL APPEARANCE: alert a nd oriented, in no acute distress EYES: conjunctiva normal, sclera non-icteric EARS: NOSE: normal external appe arance THROAT: CARDIO: regular rate and rhy thm, S1, S2 normal, no edema LUNGS: diminished breath so unds in the bases ABDOMEN: soft, nontender SKIN: warm and dry BACK: MUSCULOSKELETAL: decreased ROM due to arthritic pain, right arm pain, using cane LYMPH NODES:
--- OUTSIDE RECORDS SUMMARY | 2024-12-18 06:47 | XMS_ITS ---
Author Organization The [facility] in [place] Address [address] [place] [address] Care Team Providers Care Canvas Goods Fabricator Name Role Phone Aggie Machuca Primary Care Provider REASON FOR VISIT Repeat UA Encounters Encounter Location Date Provider Diagnosis [facility] [address] [place] [address] 12/18/2024 Aggie Machuca Frequency R35.0 Assessments Encounter Date Diagnosis (ICD Code) Assessment Notes Treatment Notes Treatment Clinical Notes Section Notes 12/18/2024 Frequency (ICD-10 - R35.0) Plan Of Treatment Pending Test Test Name Order Date UA (URINALYSIS, COMPLETE) 12/18/2024 CULTURE, URINE w SENSITIVITY 12/18/2024 URINALYSIS MICROSCOPIC 12/18/2024 Next Appt Details Provider Name:Aggie cota, 12/22/2024 01:30:00 PM, [address] [place], [address], Progress Notes * Virgen GRIFFIN SDOB :1955 (69 yo F)Acc No.[id number]:12/18/2024 Patient: Lyudmila PERKINSVirgen DALEY :1955 A ge:69 Y S ex:Female Address:[address], [place], [address] Subjective: * Chief Complaints: * R epeat UA * Medical History: * Surgical History: * Hospitalization/Major Diagno stic Procedure: * Medications: Objective: * Vitals: * Physical Examination: Assessment: * Assessment: 1. F requency - R35.0 Plan: * Treatment: * Procedure Codes: * true * Date: Generated for Maddy carmona/Darlene/Esau on: 0 12/22/2024 12:13 PM EDT
--- OUTSIDE RECORDS SUMMARY | 2024-12-22 09:30 | XMS_ITS ---
Author Organization [facility] in [place] Address [address] [place] [address] Care Team Providers Care Sock Knitting Machine Operator Name Role Phone Aggie Machuca Primary Care Provider REASON FOR VISIT needs work note extended Encounters Encounter Location Date Provider Diagnosis [facility] [address] [place] [address] 12/22/2024 Aggie Machuca Plan Of Treatment Next Appt Details Provider Name:Aggie cota, 12/22/2024 01:30:00 PM, [address] [place], [address], Progress Notes * Virgen GRIFFIN SDOB :1955 (69 yo F)Acc No.[id number]:12/22/2024 UNLOCKED PROGRESS NOTE Progress Note Patient: Lyudmila APONTENOHEMI Virgen Ramiro Provider: Keke Machuca ([facility] FIRE PROTECTION DESIGNER :1955 A ge:69 Y S ex:Female Date:12/22/2024 Address:[address] [id number] Subjective: * Chief Complaints: * 1 . Needs work note extended. * HPI: G eneral: swelling? wt loss meds?. * Medical History: Objective: * Vitals: Assessment: Plan: * Treatment: * * Electronic signature of Jeri Drew , ROMEO, MALTED MILK [email or web address] on 12/22/2024 at 12:14 PM EDT Sign off status: Pending Visit Status: Bernabe STEPHENS (Voice) * Provider: Keke Machuca (TTC), FIRE PROTECTION DESIGNER Date: 0 12/22/2024 Generated for Maddy carmona/Darlene/eTransmitting on: 0 12/22/2024 12:14 PM EDT History and Physical Notes * HPI (History of Present Illness) Category Sub-Category Detail Notes Category Not es General swelling? wt loss meds?
--- OUTSIDE RECORDS SUMMARY | 2024-12-22 12:14 | XMS_ITS | Encounter Summary ---
Author Organization [facility] Address [address] [place] [address] Care Team Providers Care Manager Requirements Name Role Phone Unallocated, [facility] Provider Primary Care Provi enris Aggie Machuca MD Unavailable [phone] Carter Granger MD Primary Care Provider Da Rosas DO Unavailable Morales De La Rosa DO Unavailable [phone] Encounter Details Date Type Department Care Team (Late st Contact Info) Description 08/30/2023 Abstract [facility] [address] [facility] [place] [id number] Loly Alcala RN [address] [place], [place] Social History Tobacco Use Types Packs/Day Years Used Date Smoking Tobacco: Every Day Cigarettes Smokeless Tobacco: Never Alcohol Use Standard Drinks/Week Comments Never 0 (1 standard drink = 0.6 oz pure alcohol) caffeine intake: more than 4 cups per day of coffee, pop, tea Comments Unknown Sex and Gender Information Value Date Recorded Sex Assigned at Female 08/16/2024 9:57 AM EST Legal Sex Female 6:55 PM EDT Gender Identity Female 08/16/2024 9:57 AM EST Sexual Orientation Not on file documented as of this encounter Plan of Treatment Upcoming Encounters Date Type Department Care Team (Late st Contact Info) Description 01/04/2025 1:15 PM EDT Office Visit [facility] [address] [facility] [address] [place] [address] Morales De La Rosa, DO [address] [place] [address] 01/05/2025 9:15 AM EDT [facility] [address] [place] [address] Brice Oliva, DO [address] [place] [address] 01/14/2025 12:00 PM EDT Office Visit [facility] [address] [facility] [address] [place] [address] Payton Goodwin, DO [address] [place], [place] [id number] 03/15/2025 11:20 AM EDT Office Visit [facility] [address] [place] [address] Mathieu Naqvi MD [address] [place] [address] 05/17/2025 10:15 AM EDT Office Visit [facility] [place] [address] [place] [place] [address] Da Rosas, DO [address] [place] [address] documented as of this encounter Visit Diagnoses Not on filedocumented in this encounter Care Teams Manager Requirements Relationship Specialty Start Date End Date Unallocated, Noms MD Too [address] [place] [address] PCP - General 12/18/22 04/09/24 Carter Granger MD [address] [place] [address] PCP - General Family Medicine 04/10/24 Aggie Machuca MD [address] [place] [address] Referring Physician Family Medicine 04/10/24 Da Rosas DO [address] [place] [address] Otolaryngology 04/10/24 Morales De La Rosa DO [address] [place] [address] Referring Physician Neurology 08/20/24 documented as of this encounter
--- OUTSIDE RECORDS SUMMARY | 2024-12-22 12:15 | XMS_ITS | Clinical Summary ---
Author Organization [facility] Address [address] [place] [address] Care Team Providers Care Solar Energy Consultant And Designer Name Role Phone Aggie Machuca MD Unavailable [phone] Carter Granger MD Primary Care Provider Da Rosas DO Unavailable Morales De La Rosa DO Unavailable [phone] Allergies Active Allergy Reactions Criticality Noted Date Comments Codeine Rash Low 07/13/2021 Other Reaction(s): Nausea Hydrocodone Unknown Medium 07/13/2021 Other Reaction(s): upset stomach Hydrocodone-Acetaminophe n Unknown Medium 07/30/2014 Other Reaction(s): Unknown Metformin Diarrhea 08/20/2024 Oxycodone-Acetaminophen Medium 07/13/2021 Other Reaction(s): sleeps a long time, Unknown Penicillins Medium 07/30/2014 Other Reaction(s): Difficulty breathing at rest, hives, hives, Unknown Propoxyphene Itching,Unknown Medium 11/30/2016 Tramadol Medium 07/13/2021 Other Reaction(s): itching Medications ASPIRIN 81 MG chewable tablet 1 (one) time each day at the same time Active alendronate (Fosamax) 70 MG tablet Active busPIRone (Buspar) 7.5 MG tablet every 12 (twelve) hours 04/23/2023 Active FLUoxetine (PROzac) 20 MG capsule 1 (one) time each day at the same time Active Flovent HFA 110 MCG/ACT inhaler every 12 (twelve) hours Active Jardiance 25 MG Acti ve ReliOn Insulin Syringe 31G X 15 0.3 ML [facility] 04/05/2023 Active pregabalin (Lyrica) 75 MG capsule 04/08/2023 Active simvastatin (Zocor) 40 MG tablet 1 (one) time each day at the same time Active hydroCHLOROthia zide (HYDRODiuril) 25 MG tablet 1 (one) time each day at the same time Active True Metrix Blood Glucose Test test strip Acti ve pseudoephedrine -Ibuprofen 30-200 MG tablet per tablet every 6 (six) hours Active TRUEplus Lancets 33G [facility] 2023 Active albuterol HFA 90 mcg/act inhaler 12/11/2023 Active insulin regular (HumuLIN R,NovoLIN R) 100 UNIT/ML injectionIndica tions:Type 2 diabetes mellitus with hyperglycemia, with long-term current use of insulin ([facility]) Inject 0.08 mL (8 Units) under the skin in the morning and 0.08 mL (8 Units) at noon and 0.08 mL (8 Units) in the evening. Inject with meals. 21.6 mL 1 08/18/2024 5 Active Semaglutide,0.2 5 or 0.5MG/DOS, (Ozempic, 0.25 or 0.5 MG/DOSE,) 2 MG/3ML solution pen-injectorInd ications:Type 2 diabetes mellitus with hyperglycemia, with long-term current use of insulin ([facility]) Inject 0.5 mg under the skin every 7 (seven) days 6 mL 1 2024 Active Continuous Glucose Sensor (Dexcom G7 Sensor) [facility] 10/16/2024 Active cyclobenzaprine (Flexeril) 5 MG tablet 11/01/2024 Active ergocalciferol (Vitamin D-2) 1.25 MG (43913 UT) capsuleIndicati ons:Type 2 diabetes mellitus with hyperglycemia, with long-term current use of insulin (CMS/HCC) Take 1 capsule (1.25 mg) by mouth 1 (one) time per week 12 capsule 1 11/16/2024 5 Active omeprazole (PriLOSEC) [address] capsule 11/25/2024 Activ e Active Problems No known active problems Resolved Problems Problem Noted Date Diagnosed Date Resolved Date Disorder associated with typ e 2 diabetes mellitus 11/06/2024 11/06/2024 Benign essential hypertension 08/03/2024 11/06/2024 Idiopathic peripheral neuropathy 08/03/2024 11/06/2024 Pure hypercholesterolemia 08/03/2024 Arthritis 03/25/2024 03/25/2024 Arthropathy of left hip 03/25/2024 08/2 02/2024 Asthma 03/25/2024 03/25/2024 Bilateral tinnitus 03/25/2024 Chronic pharyngitis 03/25/2024 03/25/20 Chronic reactive otitis externa of right ear 03/25/2024 Current smoker 03/25/2024 03/25/2024 Overview (03/25/2024): Added secondary to documentation in Social History. Added secondary to documentation in Social History. Tobacco abuse 03/25/2024 03/25/2024 Disc displacement, lumbar 03/25/2024 Dyslipidemia 03/25/2024 03/25/2024 Back pain 03/25/2024 03/25/2024 Greater trochanteric bursitis of left hip 03/25/2024 03/25/2024 H/O hypercholesterolemia 03/25/2024 Hearing loss 03/25/2024 03/25/2024 HTN (hypertension) 03/25/2024 Hyperlipidemia 03/25/2024 03/25/2024 Kidney stone 03/25/2024 03/25/2024 Lipoma of back 03/25/2024 03/25/2024 Loose body in knee 03/25/2024 MMT (medial meniscus tear) 03/25/2024 0 03/25/2024 Myocardial infarct 03/25/2024 Obesity with body mass index 30 or greater 03/25/2024 03/25/2024 Otalgia 03/25/2024 03/25/2024 Other chondrocalcinosis, right knee 03/25/2024 03/25/2024 Pseudogout of right knee 03/25/2024 Chronic low back pain 03/25/20242023 Other chronic pain 03/25/2024 Paresthesias in left hand 03/25/2024 Pneumonia 03/25/2024 03/25/2024 Purulent bronchitis 03/25/2024 03/25/20 24 Sensorineural hearing loss ( SNHL) of both ears 03/25/2024 03/25/2024 Stroke 03/25/2024 03/25/2024 Diabetes mellitus 03/25/2024 03/25/2024 Type 2 diabetes mellitus 03/25/2024 Right leg pain 11/30/2016 03/25/2024 Work related injury 11/30/2016 03/25/20 24 Encounters Date Type Department Care Team Description 12/08/2024 Telephone [facility] [address] [place] [phone] Loly Alcala RN 11/26/2024 1:15 PM EDT Office Visit [facility] [address] [place] [address] Brice Oliva DO Triceps tendonitis (Primary Dx) 11/26/2024 Bamboo flowsheet [facility] [address] [facility] [address] [place] [phone] Brice Oliva DO 11/26/2024 Travel 11/16/2024 11:40 AM EDT Office Visit [facility] [address] [place] [phone] Mathieu Naqvi MD Type 2 diabetes mellitus with hyperglycemia, with long-term current use of insulin ([facility]) (Primary Dx); Encounter for dietary consultation; Vitamin D deficiency; Primary hypertension (CMS/HCC); Hyperlipemia, mixed (CMS/HCC); Class 2 severe obesity due to excess calories with serious comorbidity and body mass index (BMI) of 39.0 to 39.9 in adult (CMS/HCC) 11/16/2024 Telephone [facility] [address] [place] [address] Mathieu Naqvi MD Med Refill 11/16/2024 Bamboo flowsheet [facility] [address] [place] [address] Mathieu Naqvi MD 11/09/2024 1:45 PM EDT Ancillary Procedure [facility] [address] [place] [address] [place] [phone] Triceps tendonitis; Lateral epicondylitis of right elbow; Right elbow pain 11/09/2024 10:00 AM EDT Office Visit [facility] [place] [address] [place] [place] [address] Da Rosas, Nontoxic multinodular goiter (CMS/HCC) (Primary Dx); Thyroid nodule (CMS/HCC) 11/09/2024 Bamboo flowsheet [facility] [place] [address] [place] [place] [address] Da Rosas DO 11/09/2024 Travel 11/05/2024 10:30 AM EDT Office Visit [facility] [address] [place] [phone] Brice Oliva DO Triceps tendonitis (Primary Dx); Lateral epicondylitis of right elbow 11/05/2024 Bamboo flowsheet [facility] [address] [facility] [address] [place] [address] Brice Oliva DO 11/05/2024 Travel from Last 3 Months Immunizations Immunization Administration Dates Next Due Influenza, High-dose Seasona l, Quadrivalent, Preservative Free 06/30/2023,10/30/2022 Influenza, Seasonal, Quadriv alent, Adjuvanted 05/31/2022 Influenza, Unspecified 06/30/2023,2022,05/31/2022,06/01,04/28/2019 Influenza, seasonal, injectable 04/28/2019 Influenza, trivalent, adjuvanted 06/01/2020 Moderna SARS-CoV-2 Vaccination 11/14/2020 Pneumococcal Conjugate PCV 13 06/01/2020 Pneumococcal Polysaccharide PPSV23 07/29/2018 Tdap 04/18/2018 Zoster, Recombinant 06/11/2024,01/11/2024,2023 Family History Medical History Relation Name Comments Alcohol abuse Father Siddhartha Lutts Alzheimer's disease Father Siddhartha Fco Dementia Father Siddhartha Lutts Diabetes Father Siddhartha Lutts Hearing loss Father Siddhartha Fco Heart disease Father Siddhartha Fco Alzheimer's disease Mother Cherelle Lutts Arthritis Mother Cherelle Fco Dementia Mother Cherelle Lutts Depression Mother Cherelle Fco Fainting Mother Cherelle Lutts Heart disease Mother Cherelle Fco Hypertension Mother Cherelle Fco Kidney disease Mother Cherelle Fco Mental illness Mother Cherelle Fco Migraines Mother Cherelle Fco Osteoarthritis Mother Cherelle Lutts Seizures Mother Cherelle Fco Stroke Mother Cherelle Fco Heart disease Sibling No Known Problems Sister No Known Problems Son x 3 Relation Name Status Comments Brother Alive x3 (1 brother d eceased) Father Siddhartha Fco Mother Cherelle Lutts Sibling Alive Sister Alive x2 (1 sister de ceased) Son x 3 x2 Social History Tobacco Use Types Packs/Day Years Used Date Smoking Tobacco: Every Day Cigarettes Smokeless Tobacco: Never Tobacco Cessation:Ready to Q uit: Not Asked; Counseling Given: Not Answered Alcohol Use Standard Drinks/Week Comments Never 0 (1 standard drink = 0.6 oz pure alcohol) caffeine intake: more than 4 cups per day of coffee, pop, tea Comments Unknown Sex and Gender Information Value Date Recorded Sex Assigned at Female 08/16/2024 9:57 AM EST Legal Sex Female 6:55 PM EDT Gender Identity Female 08/16/2024 9:57 AM EST Sexual Orientation Not on file Last Filed Vital Signs Vital Sign Reading Time Taken Comments Blood Pressure 124/68 11/16/2024 12:12 PM EDT Pulse 79 11/16/2024 12:12 PM EDT Temperature 36.3 C (97.4 F) 10/29/2023 9:23 AM EDT Respiratory Rate 18 11/16/2024 12:12 PM EDT Oxygen Saturation 94% 11/16/2024 12:12 PM EDT Inhaled Oxygen Concentration - - Weight 92.1 kg (203 lb) 11/26/2024 1:23 PM EDT Height 152.4 cm (5') 11/26/2024 1:23 PM EDT Body Mass Index 39.65 11/26/2024 1:23 PM EDT Plan of Treatment Upcoming Encounters Date Type Department Care Team (Late st Contact Info) Description 01/04/2025 1:15 PM EDT Office Visit [facility] [place] [address] [facility] [address] [place] [phone] Morales De La Rosa, DO [address] [place], [place] [id number] 01/05/2025 9:15 AM EDT Office Visit [facility] [address] [place] [phone] Brice Oliva, DO [address] [place], [place] [phone] 01/14/2025 12:00 PM EDT Office Visit [facility] Yadav[facility] [address] [place] [phone] Payton Goodwin, DO [address] [place] [address] 03/15/2025 11:20 AM EDT Office Visit [facility] [address] [place] [phone] Mathieu Naqvi MD [address] [place] [address] 05/17/2025 10:15 AM EDT Office Visit [facility] [place] [address] [place] [place] [phone] Da Rosas, [address] [place] [address] Health Maintenance Due Date Last Done Comments CT Colonography 1954 Colonoscopy 1954 Colorectal Cancer Screening 1954 FIT-DNA 1954 FIT 1954 FOBT 1954 Sigmoidoscopy 1954 Mammogram 1994 Influenza Vaccine (Season Ended) 2025 06/30/2023, 06/30/2023, 10/30/2022, Additional history exists Pneumococcal Vaccine: 65+ Ye ars (3 of 3 - PCV20 or PCV21) 06/01/2025 06/01/2020, 07/29/2018 Procedures Procedure Name Priority Date/Time Associated Diagnosis Comments POCT GLYCOSYLATED HEMOGLOBIN (HGB A1C) Routine 11/16/2024 12:16 PM EDT Type 2 diabetes mellitus with hyperglycemia, with long-term current use of insulin ([facility]) POCT GLUCOSE Routine 11/16/2024 12:16 PM EDT Type 2 diabetes mellitus with hyperglycemia, with long-term current use of insulin ([facility]) MR ELBOW RIGHT WO IV CONTRAST Routine 11/09/2024 4:07 PM EDT Triceps tendonitis Lateral epicondylitis of right elbow Right elbow pain C-PEPTIDE Routine 10/14/2024 11:17 AM EDT Type 2 diabetes mellitus with hyperglycemia, with long-term current use of insulin ([facility]) RENAL FUNCTION PANEL Routine 10/13/2024 3:49 PM EDT Type 2 diabetes mellitus with hyperglycemia, with long-term current use of insulin ([facility]) VITAMIN D 25 HYDROXY TOTAL Routine 10/13/2024 3:49 PM EDT Type 2 diabetes mellitus with hyperglycemia, with long-term current use of insulin ([facility]) LIPID PANEL Routine 10/13/2024 2:39 PM EDT Type 2 diabetes mellitus with hyperglycemia, with long-term current use of insulin ([facility]) MICROALBUMIN / CREATININE URINE RATIO Routine 10/13/2024 2:39 PM EDT Type 2 diabetes mellitus with hyperglycemia, with long-term current use of insulin ([facility]) from Last 3 Months Results * POCT glycosylated hemoglobin (Hb A1C) docked device (11/16/2024 12:16 PM EDT) Hemoglobin A1C 6.6 Blood Venous blood specimen / Unknown 11/16/2024 12:16 PM EDT us Mathieu Naqvi MD POINT OF CARE TEST ENTER/EDIT ORDERABLES Final Result * POCT glucose manually resulted (11/16/2024 12:16 PM EDT) Glucose Blood, POC 203 mg/dL Blood Capillary blood specimen / Unknown 11/16/2024 12:16 PM EDT us Mathieu Naqvi MD POINT OF CARE TEST ENTER/EDIT ORDERABLES Final Result * MR elbow right wo IV contrast (11/09/2024 4:07 PM EDT) Anatomical Region Laterality Modality Upper Extremities, Elbow Right Magneti c Resonance 11/10/2024 11:1 3 AM EDT Impressions 11/10/2024 11:16 AM EDT Low-grade intrasubstance tearing of the distal triceps tendon superimposed on mild tendinosis. ELECTRONICALLY SIGNED BY: Drew Looney DO Narrative 11/10/2024 11:16 AM EDT EXAM: MR ELBOW RIGHT WO IV CONTRAST [...] abnormality of the radial or median nerves. Procedure Note Drew Looney DO - 11/10/2024 EXAM: MR ELBOW RIGHT WO IV CONTRAST HISTORY: Triceps tendinosis. TECHNIQUE: Multiplanar multisequence MRI of the elbow was performedWithout contrast. COMPARISON: Elbow radiograph August 31, 2024 FINDINGS: Low-grade intrasubstance tearing of distal triceps tendon superimposed onmild tendinosis. Brachialis and biceps tendon are intact. The ulnar collateral ligament is intact. The radial collateral ligamentand lateral ulnar collateral ligament are intact. Common flexor and common extensor tendons are intact. Mild degenerative changes of the radiocapitellar joint. No elbow jointeffusion. No loose body identified. Ulnar nerve is of normal signal and morphology and is located within thecubital tunnel. No overt abnormality of the radial or median nerves. IMPRESSION: Low-grade intrasubstance tearing of the distal triceps tendon superimposedon mild tendinosis. ELECTRONICALLY SIGNED BY: Drew Looney DO Brice Oliva DO IMG MRI PROCEDURES Final Result * C-peptide (10/14/2024 11:17 AM EDT) Blood Venous blood specimen / Unknown Mathieu Naqvi MD LAB BLOOD ORDERABLES Final Re sult [facility] * Vitamin D 25 hydroxy Total (10/13/2024 3:49 PM EDT) Blood Venous blood specimen / Unknown Mathieu Naqvi MD LAB BLOOD ORDERABLES Final Re sult [facility] * Renal function panel (10/13/2024 3:49 PM EDT) Blood Venous blood specimen / Unknown Mathieu Naqvi MD LAB BLOOD ORDERABLES Final Re sult Performing Organization Address [facility] Co de Phone Number [facility] * Microalbumin / creatinine urine ratio (10/13/2024 2:39 PM EDT) Urine Urine specimen obtained by clean catch procedure / Unknown Mathieu Naqvi MD LAB URINE ORDERABLES Final Re sult Performing Organization Address [facility] de Phone Number [facility] * Lipid panel (10/13/2024 2:39 PM EDT) Blood Venous blood specimen / Unknown Mathieu Naqvi MD LAB BLOOD ORDERABLES Final Re sult Performing Organization Address [facility] de Phone Number [facility] from Last 3 Months Insurance [facility] MEDICARE ADVANTAGE [employer] MEDICARE ADVANTAGE Care Teams Solar Energy Consultant And Designer Relationship Specialty Start Date End Date Carter Granger MD [facility] [place], [place] [phone] PCP - General Family Medicine 04/10/24 Aggie Machuca MD [address] [place] [id number] Referring Physician Family Medicine 04/10/24 Da Rosas DO [address] [place] [address] Otolaryngology 04/10/24 Morales De La Rosa DO [address] [place] [address] Referring Physician Neurology 08/20/24
--- OUTSIDE RECORDS SUMMARY | 2024-12-22 12:15 | XMS_ITS | Clinical Summary ---
Author Organization [facility] Address [address] [place], [place] [id number] Care Team Providers Care Tying Machine Operator Name Role Phone Kory Gallagher DO Primary Care Provider Allergies Active Allergy Reactions Criticality Noted Date Comments Propoxyphene N-Acetaminophen Unknown 015 Propoxyphene Hcl Itching 11/30/2016 Penicillins Unknown 07/30/2014 Hydrocodone-Acetaminophen Unknown 07/30/2014 Medications metFORMIN (GLUCOPHAGE) 1,000 mg tablet Take 1,000 mg by mouth twice daily with meals. Active lisinopril (ZESTRIL, PRINIVIL) 5 mg tablet Take 5 mg by mouth once daily. Active simvastatin (ZOCOR) 40 mg tablet Take 40 mg by mouth daily at bedtime. Active NITROGLYCERIN SUBLINGUAL Dissolve 0.4 mg under the tongue as needed. Active IBUPROFEN (ADVIL ORAL) Take by mouth as needed. Active insulin glargine (LANTUS) 100 unit/mL injection Inject subcutaneously daily at bedtime. NOT SURE WHAT KIND OF INSULIN Active esomeprazole (NEXIUM) 20 mg capsule Take 20 mg by mouth DAILY (6 AM). Active aspirin, enteric coated (ASPIRIN, ENTERIC COATED) 81 mg EC tablet Take 81 mg by mouth once daily. Active SITAGLIPTIN PHOS/METFORMIN HCL (JANUMET ORAL) Take by mouth. Activ e Active Problems Problem Noted Date Diagnosed Date Work related injury 11/30/2016 Right leg pain 11/30/2016 Tobacco abuse Diabetes mellitus Myocardial infarct Arthritis Back pain Dyslipidemia HTN (hypertension) Kidney stone Pneumonia Stroke Family History Medical History Relation Comments COPD Father Diabetes Father Emphysema Father Glaucoma Father Heart Father CHF dementia Father Cancer Maternal Grandmother Arthritis Mother Heart Mother pacemaker Hypertension Mother Seizures Mother Heart Paternal Grandmother CHF Lung Son 2 Relation Status Comments Father Alive Maternal Grandfather Maternal Grandmother Mother Alive Paternal Grandmother Son 1 Alive Son 2 Social History Tobacco Use Types Packs/Day Years Used Date Smoking Tobacco: Every Day Cigarettes 1.5 44 Smokeless Tobacco: Never Alcohol Use Standard Drinks/Week Comments No 0 (1 standard drink = 0.6 oz pur e alcohol) Comments No Sex and Gender Information Value Date Recorded Sex Assigned at Not on file Legal Sex Female 8:26 AM EST Gender Identity Not on file Sexual Orientation Not on file 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 Not on file Not on file Not on file Last Filed Vital Signs Vital Sign Reading Time Taken Comments Blood Pressure 136/70 11/30/2016 10:33 AM EDT Pulse 72 11/30/2016 10:33 AM EDT Temperature 36.1 C (97 F) 08/06/2014 9:39 AM EST Respiratory Rate 20 11/30/2016 10:3 3 AM EDT Oxygen Saturation 98% 08/06/2014 9:3 9 AM EST Inhaled Oxygen Concentration - - Weight 65.8 kg (145 lb) 11/30/2016 10:3 3 AM EDT Height 152.4 cm (5') 11/30/2016 10:33 AM EDT self report ht/wt Body Mass Index 28.32 11/30/2016 10:33 AM EDT Plan of Treatment Health Maintenance Due Date Last Done Comments Anxiety Screening 1972 Depression Screening 1972 Hepatitis C Screening 1972 DTaP,Tdap,Td Vaccine (1 - Tdap) [address] Colonography 1999 Cologuard (FIT-DNA) 1999 Colonoscopy 1999 Colorectal Cancer Screening 1999 Diabetes Screening 1999 Fecal Occult Blood 1999 Lipid Screening 1999 Sigmoidoscopy 1999 Pneumococcal Vaccine: 50+ (1 of 1 - PCV) 2004 Shingrix Vaccine (1 of 2) 2004 Bone Density Screening 2019 Covid-19 Vaccine (1 - season) 2024 Advance Directive Discussion 07/29/2024 Influenza Vaccine (Season Ended) 2025 RSV Vaccine (1 - 1-dose 75+ series) 2029 Insurance [employer] Care Teams Tying Machine Operator Relationship Specialty Start Date End Date Kory Gallagher DO PCP - General Family Medicine 07/30/14
--- OUTSIDE RECORDS SUMMARY | 2024-12-22 12:15 | XMS_ITS | Patient Health Record ---
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 Role Phone Aggie aDvis Primary Care Provider [phone] AGGIE DAVIS Unavailable [phone] Kyle Granger Unavailable [phone] Allergies Allergen (clinical drug ingredient) Drug/Non Drug Allergy documented on EMR Reaction Allergy Type Onset Date Status Darvocet-N 50 Unknown Drug Allergy Act arina Vicodin Unknown Drug Allergy Active codeine Codeine Unknown Drug Allergy Active cefuroxime Cefuroxime itching Drug Allergy Activ e Penicillin Unknown Drug Allergy Active Results Component Value Reference Range Notes COVID-19, Flu A+B IH Reviewed date:11/03/2024 03:06:23 PM Interpretation: Performing Lab: Notes/Report: COVID neg FLU A neg FLU B neg Control present CBC AUTO DIFF Reviewed date:01/27/2024 01:01:08 PM Interpretation: Performing Lab: Notes/Report: [facility] , White Blood Count 6.3 4.0-11.0 10 3/uL Red Blood Count 4.41 4.20-5.40 10 6/uL Hemoglobin 12.5 12.0-16.0 g/dL Hematocrit 39.9 36.0-48.0 % Mean Corpuscular Volume 90.5 81.0-99.0 fL Mean Corpuscular Hemoglobin 28.3 26.7-34.0 pg Mean Corpuscular HGB Conc 31.3 29.9-35.2 g/dL Red Cell Distribution Width 16.5 11.0-15.0 % Platelet Count 187 150-450 10 3/uL Mean Platelet Volume 11.2 9.5-13.5 fL Neutrophils Percent Auto 47.0 43.0-75.0 % Lymphocytes Percent Auto 41.2 20.5-60.0 % Monocytes Percent Auto 8.8 1.7-12.0 % Eosinophils Percent Auto 2.1 0.9-7.0 % Basophils Percent Auto 0.6 0.2-2.0 % Immature Granulocytes Pct Auto 0.3 0.0-0.5 % Neutrophils Absolute Auto 3.0 1.4-6.5 10 3/uL Lymphocytes Absolute Auto 2.6 1.2-3.8 10 3/uL Monocytes Absolute Auto 0.6 0.3-0.8 10 3/uL Eosinophils Absolute Auto 0.1 0.0-0.7 10 3/uL Basophils Absolute Auto 0.0 0.0-0.1 10 3/uL Immature Granulocytes Abs Auto 0.02 0.00-0.03 10 3/uL Performing Lab: see note ML - [facility] MM tomosynthesis screening B I Reviewed date:06/30/2024 12:15:33 PM Interpretation: Performing Lab: Notes/Report: Source Facility: [place] [address] Mammography Report Signed Patient: VIRGEN GONZALES MR#: [id number] : 1955 Acct:[id number] Age/Sex: 68 / F ADM Date: 06/29/24 Loc: MAMMO Attending Dr: AGGIE DAVIS Ordering Physician: AGGIE DAVIS Results: Date of Service: 06/29/24 Follow Up: Procedure(s): MM tomosynthesis screening BI Accession Number(s): [id number] cc: AGGIE DAVIS Patient Name: VIRGEN GONZALES MR#: [id number] : 1955 Exam Date: 06/29/2024 Ordering Doctor: AGGIE DAVIS [facility]YLEN[facility] RADIOLOGY REPORT PROCEDURE: MM TOMOSYNTHESIS SCREENING BI COMPARISON: MM TOMOSYNTHESIS SCREENING BI, 03/01/2023. MG MAMM SCREEN 3D RIMA CAD, 02/14/2022. MG MAMM SCREEN 3D RIMA CAD, 02/09/2021. MG MAMM RIMA DIAG W CAD DIG, 09/13/2015. INDICATIONS: SCREENING Calculator Name NCI Breast Cancer Risk Assessment Tool 5 Year Breast Cancer Risk 0.80% Lifetime Breast Cancer Risk 2.60% Personal Breast Cancer No Personal Ovarian Cancer No Treatments None Family Cancers Aunt-paternal with leukemia cancer at age 65; Aunt-paternal with unknown x 6 aunts cancer at age 40; Grandmother-maternal with unknown cancer at age 25. LOCATION: [facility] BREAST COMPOSITION: The breasts are heterogeneously dense,which may obscure small masses. FINDINGS: DIAGNOSTIC [...] BIOPSIED. Dictated by: Becky Owens M.D. on 06/29/2024 at 16:12 Approved by: Becky Owens M.D. on 06/29/2024 at 16:17 Dictated By: Becky Owens M.D. Signed By: 06/29/241617 DD/ 16 TD/TT: Air Moving Technician: [place] [address] Mammography Report Signed Patient: VIRGEN GONZALES MR#: [id number] : 1955 Acct:[id number] Age/Sex: 68 / F ADM Date: 06/29/24 Loc: MAMMO Attending Dr: AGGIE DAVIS Ordering Physician: AGGIE DAVIS Results: Date of Service: 09/21 Follow Up: Procedure(s): MM tomosynthesis screening BI Accession Number(s): [id number] cc: AGGIE DAVIS Patient Name: VIRGEN GONZALES MR#: [id number] : 1955 Exam Date: 06/29/2024 Ordering Doctor: ROMÁN DAVIS [facility] RADIOLOGY REPORT PROCEDURE: MM TOMOSYNTHESIS SCREENING BI COMPARISON: MM TOMOSYNTHESIS SCREENING BI, 03/01/2023. MG MAMM SCREEN 3D RIMA CAD, 02/14/2022. MG MAMM SCREEN 3D RIMA CAD, 02/09/2021. MG MAMM RIMA DIAG W CAD DIG, 09/13/2015. INDICATIONS: SCREENING Calculator Name NCI Breast Cancer Risk Assessment Tool 5 Year Breast Cancer Risk 0.80% Lifetime Breast Canc er Risk 2.60% Personal Breast Cancer No Personal Ovarian Can cer No Treatments None Family Cancers Aunt-paternal with leukemia cancer at age 65; Aunt-paternal with unknown x 6 aun ts cancer at age 40; Grandmother-maternal with unknown cancer at age 25. LOCATION: [facility] BREAST COMPOSITION: The breasts are heterogeneously dense,which may obscure small masses. FINDINGS: DIAGNOSTIC CATEGORY 1--NEGATIVE. RIGHT BREAST: No significant suspicious finding. No significant change has occurred. LEFT BREAST: No significant suspicious finding. No significant change has occurred. RECOMMENDATIONS: ROUTINE MAMMOGRAM AN D CLINICAL EVALUATION IN 12 MONTHS. PLEASE NOTE: A YOUSUF L MAMMOGRAM DOES NOT EXCLUDE THE POSSIBILITY OF BREAST CANCER. A CLINICALLY SUSPICIOUS PALPABLE LUMP SHOULD BE BIOPSIED. Dictated by: Becky Owens M.D. on 06/29/2024 at 16:12 Approved by: Becky Owens M.D. on 06/29/2024 at 16:17 Dictated By: Becky Owens M.D. Signed By: 06/29/24 1618 DD/ 161 TD/TT: Air Moving Technician: XR elbow RT min 3V Reviewed date:06/30/2024 12:16:39 PM Interpretation: Performing Lab: Notes/Report: Source Facility: [facility] [place] [address] [place] [address] XRay Report Signed Patient: VIRGEN GONZALES MR#: [id number] : 1955 Acct:[id number] Age/Sex: 68 / F ADM Date: 06/29/24 Loc: RAD Attending Dr: AGGIE DAVIS Ordering Physician: AGGIE DAVIS Date of Service: 06/29/24 Procedure(s): XR elbow RT min 3V Accession Number(s): [id number] cc: AGGIE DAVIS [address] [address] Patient Name: VIRGEN GONZALES MRN: [id number] date: 1955 Sex: F Assigned Patient Location: RAD Current Patient Location: Accession/Order Number: [id number] Exam Date: 06/29/2024 14:41 Report Date: 06/30/2024 06:57 At the request of: AGGIE DAVIS Procedure: XR elbow RT min 3V PROCEDURE: XR elbow RT min 3V HISTORY: right elbow pain COMPARISON: None. FINDINGS: BONES:Tiny periarticular degenerative osteophytes. No fracture, dislocation, bone lesion. SOFT TISSUES:No visible soft tissue swelling. EFFUSION:None visible. OTHER: Negative. XR/XR elbow RT min 3V IMPRESSION: 1. No acute bone abnormality. Mild degenerative changes. Electronically authenticated by: BECKY OWENS Date: 06/30/2024 06:57 Dictated By: Becky Owens M.D. Signed By: 06/30/2459 DD/ TD/TT: Air Moving Technician: [place] [address] XRay Report Signed Patient: VIRGEN GONZALES MR#: [id number] : 1955 Acct:[id number] Age/Sex: 68 / F ADM Date: 06/29/24 Loc: RAD Attending Dr: AGGIE DAVIS Ordering Physician: AGGIE DAVIS Date of Service: 06/29/24 Procedure(s): XR elb ow RT min 3V Accession Number(s): [id number] cc: AGGIE DAVIS [address] [address] Patient Name: VIRGEN GONZALES MRN: [id number] date: 1955 Sex: F Assigned Patient Location: RAD Current Patient Location: Accession/Order Numb er: [id number] Exam Date: 14:41 Report Date: 06/30/2024 06:57 At the request of: AGGIE DAVIS Procedure: XR elbow RT min 3V PROCEDURE: XR elbow RT min 3V HISTORY: right elbow pain COMPARISON: None. FINDINGS: BONES:Tiny periartic ular degenerative osteophytes. No fracture, dislocation, bone lesion. SOFT TISSUES:No visi ble soft tissue swelling. EFFUSION:None visible. OTHER: Negative. X R/XR elbow RT min 3V IMPRESSION: 1. No acute bone abnormality. Mild degenerative changes. Electronically authenticated by: BECKY OWENS Date: 06/30/2024 06:57 Dictated By: Becky Owens M.D. Signed By: 06/30/2459 DD/ TD/TT: Air Moving Technician: CBC AUTO DIFF Reviewed date:07/10/2024 03:02:41 PM Interpretation: Performing Lab: Notes/Report: [facility] , White Blood Count 8.6 4.0-11.0 10 3/uL Red Blood Count 4.14 4.20-5.40 10 6/uL Hemoglobin 12.0 12.0-16.0 g/dL Hematocrit 37.9 36.0-48.0 % Mean Corpuscular Volume 91.5 81.0-99.0 fL Mean Corpuscular Hemoglobin 29.0 26.7-34.0 pg Mean Corpuscular HGB Conc 31.7 29.9-35.2 g/dL Red Cell Distribution Width 14.7 11.0-15.0 % Platelet Count 180 150-450 10 3/uL Mean Platelet Volume 11.8 9.5-13.5 fL Neutrophils Percent Auto 62.5 43.0-75.0 % Lymphocytes Percent Auto 25.9 20.5-60.0 % Monocytes Percent Auto 6.2 1.7-12.0 % Eosinophils Percent Auto 3.7 0.9-7.0 % Basophils Percent Auto 0.8 0.2-2.0 % Immature Granulocytes Pct Auto 0.9 0.0-0.5 % Neutrophils Absolute Auto 5.4 1.4-6.5 10 3/uL Lymphocytes Absolute Auto 2.2 1.2-3.8 10 3/uL Monocytes Absolute Auto 0.5 0.3-0.8 10 3/uL Eosinophils Absolute Auto 0.3 0.0-0.7 10 3/uL Basophils Absolute Auto 0.1 0.0-0.1 10 3/uL Immature Granulocytes Abs Auto 0.08 0.00-0.03 10 3/uL Performing Lab: see note ML - [facility] LB XR DEXA axial skeleton Reviewed date:09/18/2024 03:36:56 PM Interpretation: Performing Lab: Notes/Report: Source Facility: [place] [address] XRay Report Signed Patient: VIRGEN GONZALES MR#: [id number] : 1955 Acct:[id number] Age/Sex: 68 / F ADM Date: 07/17/24 Loc: OXANA Attending Dr: AGGIE DAVIS Ordering Physician: AGGIE DAVIS Date of Service: 07/17/24 Procedure(s): XR DEXA axial skeleton Accession Number(s): [id number] cc: AGGIE DAVIS [place] [address] Patient Name: VIRGEN GONZALES MRN: [id number] date: 1955 Sex: F Assigned Patient Location: [facility] [place] [facility] [place]/Order Number: [id number] Exam Date: 07/17/2024 10:18 Report Date: 07/17/2024 11:55 At the request of: AGGIE DAVIS Procedure: XR DEXA axial skeleton EXAMINATION: XR DEXA axial skeleton, 07/17/2024 10:18 AM EST HISTORY: Osteoporosis COMPARISON: 2021. TECHNIQUE: Dual-energy X-ray absorptiometry (DEXA) bone density study performed for the axial skeleton. FINDINGS: Bone mineral density AP spine L1-L4 measures 1.110 g percent meters per. T score -0.6. Normal Lowest bone mineral density left femoral neck measuring 0.796 g/sq cm. T score -1.7. Osteopenia XR/XR DEXA axial skeleton IMPRESSION: Osteopenia. Moderate fracture risk Pharmacologic treatment recommendations * No uniform recommendation applies to all patients. Management plans must be individualized. * Consider initiating pharmacologic treatment in postmenopausal women and men >= 50 years of age who have the following: Primary fracture prevention: * T-score <= - 2.5 at the femoral neck, total hip, lumbar spine, 33% radius (some uncertainty with existing data) by DXA. * Low bone mass (osteopenia: T-score between - 1.0 and - 2.5) at the femoral neck or total hip by DXA with a 10-year hip fracture risk >= 3% or a 10-year major osteoporosis-related fracture risk >= 20% (i.e., clinical vertebral, hip, forearm, or proximal humerus) based on the US-adapted FRAXregistered model. Secondary fracture prevention: * Fracture of the hip or vertebra regardless of BMD [4, 5]. * Fracture of proximal humerus, pelvis, or distal forearm in persons with low bone mass (osteopenia: T-score between - 1.0 and - 2.5). The decision to treat should be individualized in persons with a fracture of the proximal humerus, pelvis, or distal forearm who do not have osteopenia or low BMD [12, 13]. Viktor MS, Larry SL, Bethany KL, Khushbu EM, Jennie KG, AJ, Devan ES. The clinician's guide to prevention and treatment of osteoporosis. Osteoporos Int. 2021;33(10):2134-7229. doi: 10.1007/q66057-302-42253-h. Epub 2021Nov 23. Erratum in: Osteoporos Int. 2021Feb 22;: PMID: 08683152; PMCID: [id number]. Electronically authenticated by: BRIANNA GREEN Date: 07/17/2024 11:55 Dictated By: Brianna Green M.D. Signed By: 09/17/24 1232 DD/ 1155 TD/TT: Air Moving Technician: The [address] [address] XRay Report Signed Patient: VIRGEN GONZALES MR#: [id number] : 1955 Acct:[id number] Age/Sex: 68 / F ADM Date: 07/17/24 Loc: RAD Attending Dr: AGGIE DAVIS Ordering Physician: AGGIE DAVIS of Service: 07/17/24 Procedure(s): XR DEX A axial skeleton Accession Number(s): [id number] cc: AGGIE DAVIS [address] [address] Patient Name: VIRGEN GONZALES MRN: [id number] date: 1955 Sex: F Assigned Patient Location: [facility] Current Patient Loca tion: SLEEP Accession/Order Numb er: [id number] Exam Date: 10:18 Report Date: 07/17/2024 11:55 At the request of: AGGIE DAVIS Procedure: XR DEXA a xial skeleton EXAMINATION: XR DEXA axial skeleton, 07/17/2024 10:18 AM EST HISTORY: Osteoporosis COMPARISON: 2021. TECHNIQUE: Dual-ener gy X-ray absorptiometry (DEXA) bone density study performed for the axial skeleton. FINDINGS: Bone mineral density AP spine L1-L4 measures 1.110 g percent meters per. T score -0.6. Normal Lowest bone mineral density left femoral neck measuring 0.796 g/sq cm. T score -1.7. Osteopenia X R/XR DEXA axial skeleton IMPRESSION: Osteopenia. Moderate fracture risk Pharmacologic treatm ent recommendations * No uniform recommendation applies to all patients. Management plans must be individualized. * Consider initiatin g pharmacologic treatment in postmenopausal women and men >= 50 years of age w ho have the following: Primary fracture prevention: * T-score <= - 2.5 a t the femoral neck, total hip, lumbar spine, 33% radius (some uncertainty wi th existing data) by DXA. * Low bone mass (osteopenia: T-score between - 1.0 and - 2.5) at the femoral neck or total hip by DXA with a 10-year hip fracture risk >= 3% or a 10-year major osteoporosis-related fracture risk >= 20% (i.e., clinical vertebral, hip, forearm, or proximal humerus) based on the US-adapted FRAXregistered model. Secondary fracture prevention: * Fracture of the hi p or vertebra regardless of BMD [4, 5]. * Fracture of proxim al humerus, pelvis, or distal forearm in persons with low bone mass (osteopeni a: T-score between - 1.0 and - 2.5). The decision to treat should be individual ized in persons with a fracture of the proximal humerus, pelvis, or distal fo rearm who do not have osteopenia or low BMD [12, 13]. Viktor MS, Larry SL, Bethany KL, Khushbu EM, Jennie KG, AJ, Devan ES. The clinician's guid e to prevention and treatment of osteoporosis. Osteoporos Int. 2021;33(10):3817-2852. doi: 10.1007/x24415-212-46299- y. Epub 2021Nov 23. Erratum in: Osteoporos Int. 2021Feb 22;: PMID: 57492118; PMCID: [id number]. Electronically authenticated by: BRIANNA GREEN Date: 07/17/2024 11:55 Dictated By: Harrison Green M.D. Signed By: 09/17/24 1232 DD/ 1155 TD/TT: Air Moving Technician: STACEY haywood 2-7 days Reviewed date:07/31/2024 10:25:22 AM Interpretation: Performing Lab: Notes/Report: Source Facility: [place] [address] Cardiology Report Signed Patient: VIRGEN GONZALES MR#: [id number] : 1955 Acct:[id number] Age/Sex: 68 / F ADM Date: 07/09/24 Loc: CARD Attending Dr: AGGIE DAVIS Ordering Physician: AGGIE DAVIS Date of Service: 07/09/24 Procedure(s): STACEY holter montior 2-7 days Accession Number(s): [id number] cc: AGGIE DAVIS [facility] Test Date: 2024-07-21 Pat Name: VIRGEN GONZALES Department: Room: - Gender: Female Sales 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: : 1955 Requested By: 1469 Order Number: [id number] Arcelia MD: IMER GREEN Interpretive Statements Predominant rhythm is sinus with average rate of 80 bpm Tachycardia - max rate of 121 bpm (sinus tachy) Bradycardia - min rate of 58 bpm Ventricular ectopy - 1,083 total, <1% - 1,073 PVC - 10 couplets Patient triggered events: 17 - associated with sinus tachycarida and VE - associated with dizziness, lightheadedness and SOB Impression: Predominant rhythm is sinus with average rate of 80 bpm Fastest rate of 121 bpm (sinus tachy) and slowest rate of 58 bpm 1,073 PVC, 10 couplets Longest episode of sinus tachy 24min 41sec with rates between 108-121 bpm Longest episode of sinus sarah No atrial fibrillation Electronically Signed On 07-22-2024 8:16:29 EST by IMER GREEN Dictated By: Imer Green D.O. 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1955 Requ ested By: 1469 Order Number: [id number] Reading MD: IMER GREEN Interpretive Statements Predominant rhythm i s sinus with average rate of 80 bpm Tachycardia - max rate of 121 bp m (sinus tachy) Bradycardia - min rate of 58 bpm Ventricular ectopy - 1,083 total, <1% - 1,073 PVC - 10 couplets Patient triggered ev ents: 17 - associated with si nus tachycarida and VE - associated with dizziness, lightheadedness and SOB Impression: Predominant rhythm i s sinus with average rate of 80 bpm Fastest rate of 121 bpm (sinus tachy) and slowest rate of 58 bpm 1,073 PVC, 10 couplets Longest episode of s inus tachy 24min 41sec with rates between 108-121 bpm Longest episode of s inus sarah No atrial fibrillation Electronically Nell d On 07-22-2024 8:16:29 EST by IMER GREEN Dictated By: Imer Green D.O. Signed By: 07/22/2481507/22/24815 DD/ 3 TD/TT: Air Moving Technician: CREATININE Reviewed date:08/12/2024 07:36:49 PM Interpretation: Performing Lab: Notes/Report: [facility] , Creatinine 1.86 0.55-1.02 mg/dL Estimated GFR ( Vanda 33 >=60 mL/min/1.73m 2 Estimated GFR (Non- Laura 27 >=60 mL/min/1.73m 2 Performing Lab: see note ML - [facility] LB NM arun perf SPECT rest str Reviewed date:08/12/2024 07:36:49 PM Interpretation: Performing Lab: Notes/Report: Source Facility: [facility] [place] [address] Nuclear Medicine Report Signed Patient: VIRGEN GONZALES MR#: [id number] : 1955 Acct:[id number] Age/Sex: 68 / F ADM Date: 08/12/24 Loc: LAB Attending Dr: Carter Granger M.D. Ordering Physician: Carter Granger M.D. Date of Service: 08/12/24 Procedure(s): NM arun perf SPECT rest str Accession Number(s): [id number] cc: AGGIE DAVIS ; Carter Granger M.D. Patient Name: VIRGEN GONZALES MR#: [id number] : 1955 Exam Date: 08/12/2024 Ordering Doctor: DR Carter Granger . RADIOLOGY REPORT PROCEDURE: NM ARUN PERF SPECT REST STR COMPARISON: None. INDICATIONS: SYNCOPE TECHNIQUE: Exam Description: Stress/Rest one day protocol gated SPECT Rest Imagin.1 mCi Tc-99m Cardiolite IV on 08/12/2024 Stress Imaging 29.6 mCi Tc-99m Cardiolite IV on 08/12/2024 Exercise Protocol: 0.4 mg Lexiscan given IV Heart Rate (bpm): Rest: 83 Max: 129 PMHR: 84 Blood Pressure: Rest: 128/86 Max: 158/94 Symptoms: Rest and peak stress ECG findings were pending and the exercise portion of the study was pending per attending physician Dr. PEREZ . For more details please see separate cardiac stress test report. FINDINGS: QUALITY OF STUDY: Excellent. PERFUSION DEFECT: None. LOCATION: Basal anterior. Mid-anterior. Apical anterior. SIZE: Medium (3-4 segments). SEVERITY: Mild. TYPE: Persistent. WALL MOTION: Normal. LV SIZE: Normal. 64 mL. TID / TCD: None; 0.8 LVEF: Normal. Calculated EF 78%. SUMMARY: Myocardial perfusion imaging study has ABNORMAL findings. CONCLUSION: 1. Fixed defect in the anterior wall, breast attenuation artifact suspected 2. No redistribution to suggest reversible ischemia 3. Pending exercise test results Dictated by: Brianna Green MD on 08/12/2024 at 15:28 Approved by: Brianna Green MD on 08/12/2024 at 15:30 Dictated By: Brianna Green M.D. Signed By: 08/12/24 1532 DD/ 1530 TD/TT: Air Moving Technician: [place] [address] Nuclear Medicine Report Signed Patient: VIRGEN GONZALES MR#: [id number] : 1955 Acct:[id number] Age/Sex: 68 / F ADM Date: 08/12/24 Loc: LAB Attending Dr: Mikey Granger M.D. Ordering Physician: Carter Granger M.D. Date of Service: 08/12/24 Procedure(s): NM arun perf SPECT rest str Accession Number(s): [id number] cc: AGGIE DAVIS ; Carter Granger M.D. Patient Name: VIRGEN GONZALES MR#: [id number] : 1955 Exam Date: 08/12/2024 Ordering Doctor: DR Carter Granger . RADIOLOGY REPORT PROCEDURE: NM ARUN PE RF SPECT REST STR COMPARISON: None. INDICATIONS: SYNCOPE TECHNIQUE: Exam Description: Stress/Rest one day protocol gated SPECT Rest Imagin.1 m Ci Tc-99m Cardiolite IV on 08/12/2024 Stress Imaging 29.6 mCi Tc-99m Cardiolite IV on 08/12/2024 Exercise Protocol: 0 .4 mg Lexiscan given IV Heart Rate (bpm): Re st: 83 Max: 129 PMHR: 84 Blood Pressure: Rest : 128/86 Max: 158/94 Symptoms: Rest and peak stress ECG findings were pending and the exercise portion of the study was pending pe r attending physician [facility] . For more details please see separate cardiac stress test report. FINDINGS: QUALITY OF STUDY: Excellent. PERFUSION DEFECT: None. LOCATION: Basal ante rior. Mid-anterior. Apical anterior. SIZE: Medium (3-4 segments). SEVERITY: Mild. TYPE: Persistent. WALL MOTION: Normal. LV SIZE: Normal. 64 mL. TID / TCD: None; 0.8 LVEF: Normal. Calcul ated EF 78%. SUMMARY: Myocardial perfusion imaging study has ABNORMAL findings. CONCLUSION: 1. Fixed defect in t he anterior wall, breast attenuation artifact suspected 2. No redistribution to suggest reversible ischemia 3. Pending exercise test results Dictated by: Brianna muller MD on 08/12/2024 at 15:28 Approved by: Brianna muller MD on 08/12/2024 at 15:30 Dictated By: Harrison Green M.D. Signed By: 08/12/24 1532 DD/ 1530 TD/TT: Air Moving Technician: MR coleman neida/benton prakash Reviewed date:08/12/2024 07:36:49 PM Interpretation: Performing Lab: Notes/Report: Source Facility: [facility] [place] [address] [place] [address] Magnetic Resonance Report Signed Patient: VIRGEN GONZALES MR#: [id number] : 1955 Acct:[id number] Age/Sex: 68 / F ADM Date: 08/12/24 Loc: LAB Attending Dr: Carter Granger M.D. Ordering Physician: Carter Granger M.D. Date of Service: 08/12/24 Procedure(s): MR abdomen wo/w con Accession Number(s): [id number] cc: AGGIE DAVIS ; Carter Granger M.D. [place] [id number] Patient Name: VIRGEN GONZALES MRN: [facility]:[id number] date: 1955 Sex: F Assigned Patient Location: LAB Current Patient Location: LAB Accession/Order Number: [id number] Exam Date: 08/12/2024 07:10 Report Date: 08/12/2024 08:52 At the request of: CARTER GRANGER Procedure: MR abdomen wo/w con EXAMINATION: MR abdomen wo/w con HISTORY: kidney mass N28.89 COMPARISON: No relevant comparison available. TECHNIQUE: A comprehensive MRI examination of the abdomen was performed to optimize visualization of suspected pathology. Images were obtained both before and after intravenous administration of Dotarem contrast. FINDINGS: LIVER: The visualized portions of the liver are normal with no focal or enhancing mass BILIARY: The gallbladder is absent PANCREAS: No lesion, fluid collection, ductal dilatation, or atrophy. SPLEEN: No enlargement or focal lesion. KIDNEYS: Multiple nonenhancing cortical and exophytic cystic lesions in both kidneys many of which demonstrate decreased T1 increased T2 signal and are consistent with simple cysts. Multiple additional lesions demonstrate increased T1 signal without postcontrast enhancement and likely represent proteinaceous or hemorrhagic cyst. No enhancing mass is observed. No hydronephrosis ADRENALS: No mass or enlargement. AORTA/VASCULAR: No aneurysm or dissection. RETROPERITONEUM: No mass or adenopathy. BOWEL/MESENTERY: No visible mass, obstruction, or bowel wall thickening. ABDOMINAL WALL: No mass or hernia. BONES: No bony lesion or fracture. MR/MR abdomen wo/w con IMPRESSION: Multiple nonenhancing bilateral renal simple and complex cortical and exophytic cysts. No enhancing mass Electronically authenticated by: BRIANNA GREEN Date: 08/12/2024 08:52 Dictated By: Brianna Green M.D. Signed By: 08/12/24 0854 DD/ TD/TT: Air Moving Technician: [place] [address] Magnetic Resonance Report Signed Patient: VIRGEN GONZALES MR#: [id number] : 1955 Acct:[id number] Age/Sex: 68 / F ADM Date: 08/12/24 Loc: LAB Attending Dr: Mikey Granger M.D. Ordering Physician: Carter Granger M.D. Date of Service: 08/12/24 Procedure(s): MR carmen kaur wo/w con Accession Number(s): [id number] cc: AGGIE DAVIS ; Carter Granger M.D. [facility] [place] [id number] Patient Name: VIRGEN GONZALES MRN: [id number] date: 1955 Sex: F Assigned Patient Location: LAB Current Patient Loca tion: LAB Accession/Order Numb er: [id number] Exam Date: 08/12/2024 07:10 Report Date: 08/12/2024 08:52 At the request of: CARTER GRANGER Procedure: MR abdome n wo/w con EXAMINATION: MR carmeno men wo/w con HISTORY: kidney mass N28.89 COMPARISON: No relev ant comparison available. TECHNIQUE: A comprehensive MRI examination of the abdomen was performed to optimize visualizati on of suspected pathology. Images were obtained both before and after intravenou s administration of Dotarem contrast. FINDINGS: LIVER: The visualize d portions of the liver are normal with no focal or enhancing mass BILIARY: The gallbla dder is absent PANCREAS: No lesion, fluid collection, ductal dilatation, or atrophy. SPLEEN: No enlargeme nt or focal lesion. KIDNEYS: Multiple nonenhancing cortical and exophytic cystic lesions in both kidneys many of whic h demonstrate decreased T1 increased T2 signal and are consistent with simp le cysts. Multiple additional lesions demonstrate increased T1 signal without postcontrast enhancement and likely represent proteinaceous or hemorrhagic cyst. No enhancing mass is observed. No hydronephrosis ADRENALS: No mass or enlargement. AORTA/VASCULAR: No aneurysm or dissection. RETROPERITONEUM: No mass or adenopathy. BOWEL/MESENTERY: No visible mass, obstruction, or bowel wall thickening. ABDOMINAL WALL: No m ass or hernia. BONES: No bony lesio n or fracture. M R/MR abdomen wo/w con IMPRESSION: Multiple nonenhancin g bilateral renal simple and complex cortical and exophytic cysts. No enhancing mass Electronically authenticated by: BRIANNA GREEN Date: 08/12/2024 08:52 Dictated By: Harrison Green M.D. Signed By: 08/12/24 0854 DD/ TD/TT: Air Moving Technician: XR foot RT min 3V Reviewed date:08/12/2024 08:48:57 AM Interpretation: Performing Lab: Notes/Report: Source Facility: [place] [address] XRay Report Signed Patient: VIRGEN GONZALES MR#: [id number] : 1955 Acct:[id number] Age/Sex: 68 / F ADM Date: 08/12/24 Loc: RAD Attending Dr: AGGIE DAVIS Ordering Physician: AGGIE DAVIS Date of Service: 08/12/24 Procedure(s): XR foot RT min 3V Accession Number(s): [id number] cc: AGGIE DAVIS [place] [address] Patient Name: VIRGEN GONZALES MRN: [id number] date: 1955 Sex: F Assigned Patient Location: [facility] Current Patient Location: LAB Accession/Order Number: [id number] Exam Date: 08/12/2024 08:10 Report Date: 08/12/2024 08:40 At the request of: AGGIE DAVIS Procedure: XR foot RT min 3V PROCEDURE: XR foot RT min 3V COMPARISON: None. HISTORY: Right Foot Pain FINDINGS: BONES:No acute fracture or dislocation. Moderate enthesopathic spurring of the calcaneus at the Achilles and plantar insertions. Moderate degenerative changes of the midfoot SOFT TISSUES:Negative. No visible soft tissue swelling. EFFUSION:None visible. OTHER: Negative. XR/XR foot RT min 3V IMPRESSION: Moderate degenerative changes Electronically authenticated by: BRIANNA GREEN Date: 08/12/2024 08:40 Dictated By: Brianna Green M.D. Signed By: 08/12/24841 DD/ 9 TD/TT: Air Moving Technician: [place] [address] XRay Report Signed Patient: VIRGEN GONZALES MR#: [id number] : 1955 Acct:[id number] Age/Sex: 68 / F ADM Date: 08/12/24 Loc: RAD Attending Dr: AGGIE DAVIS Ordering Physician: AGGIE DAVIS Date of Service: 08/12/24 Procedure(s): XR tobin t RT min 3V Accession Number(s): [id number] cc: AGGIE DAVIS [place] [address] Patient Name: VIRGEN GONZALES MRN: [id number] date: 1955 Sex: F Assigned Patient Location: RAD Current Patient Loca tion: LAB Accession/Order Numb er: [id number] Exam Date: 08/12/2024 08:10 Report Date: 08/12/2024 08:40 At the request of: AGGIE DAVIS Procedure: XR foot R T min 3V PROCEDURE: XR foot R T min 3V COMPARISON: None. HISTORY: Right Foot Pain FINDINGS: BONES:No acute fract ure or dislocation. Moderate enthesopathic spurring of the calcaneus at the Ach illes and plantar insertions. Moderate degenerative changes of the midfoot SOFT TISSUES:Negativ e. No visible soft tissue swelling. EFFUSION:None visible. OTHER: Negative. X R/XR foot RT min 3V IMPRESSION: Moderate degenerativ e changes Electronically authenticated by: BRIANNA GREEN Date: 08/12/2024 08:40 Dictated By: Harrison Green M.D. Signed By: 08/12/2442 DD/ 9 TD/TT: Air Moving Technician: STACEY echo doppler complete Reviewed date:08/16/2024 02:47:44 PM Interpretation: Performing Lab: Notes/Report: Source Facility: [place] [address] [place] [address] Cardiology Report Signed Patient: VIRGEN GONZALES MR#: [id number] : 1955 Acct:[id number] Age/Sex: 68 / F ADM Date: 08/12/24 Loc: LAB Attending Dr: Carter Granger M.D. Ordering Physician: Carter Granger M.D. Date of Service: 08/12/24 Procedure(s): CA echo doppler complete Accession Number(s): [id number] cc: AGGIE DAVIS ; Carter Granger M.D. Patient Name: VIRGEN GONZALES MR#: [id number] : 1955 Exam Date: 08/12/2024 Ordering Doctor: DR Carter Granger . ECHOCARDIOGRAM REPORT PROCEDURE: CA ECHO DOPPLER COMPLETE INDICATIONS: Syncope, smoker, hypertension, diabetes, h/o [place] COMPARISON: None. DESCRIPTION: COMPLETE ECHOCARDIOGRAM Real-time transthoracic echocardiography with 2D, M-mode, spectral and color flow Doppler performed. QUALITY: Technical quality was good. LEFT VENTRICLE: Normal chamber size. Thickened septal wall. Normal systolic function. LV EF: Normal left ventricular ejection fraction, (55-60%). DIASTOLIC: Diastolic function is indeterminate. ATRIAL SEPTUM: Visually appears intact. LEFT ATRIUM: Normal chamber size. RIGHT ATRIUM: Normal chamber size. RIGHT VENTRICLE: Normal chamber size. Normal right ventricular systolic function. TRICUSPID VALVE: Normal mobility and thickness. No stenosis with no regurgitation. Unable to assess right sided pressures due to lack of measurable tricuspid regurgitation. MITRAL VALVE: Normal mobility and thickness. No evidence of mitral valve stenosis. There is no mitral annular calcification. No mitral regurgitation. AORTIC VALVE: Normal trileaflet appearance. No visible sclerosis. Normal leaflet mobility. No evidence of aortic valve stenosis. No aortic regurgitation. AORTIC ROOT: Normal diameter and appearance. PULMONIC VALVE: Normal thickness and mobility. No stenosis. No regurgitation. PERICARDIUM: No evidence of pericardial effusion. IVC: IVC is normal in size, does not fully collapse. PLEURA: CONCLUSION: 1. Normal ventricular size and systolic function. LVEF is 55-60%. 2. No significant valvular dysfunction. 3. Unable to assess right sided pressures due to lack of measurable tricuspid regurgitation. Adult Echocardiography Procedure Report Left Ventricle LVEDD (3.7 - 5.6 cm): 4.14 cm LVESD (2.2 - 4.0 cm): 3.29 cm LVIVS thickness (0.6 - 1.2 cm): 1.11 cm LVPW thickness (0.5 - 1.0 cm): 0.89 cm e': 0.09 m/s E - e': 10.41 LVOT Max Gradient: 3.34 mm[Hg] LVOT Area (cm2): 0.91 m/s Peak Velocity (LVOT): 0.91 m/s Mean Velocity (LVOT): 0.67 m/s LVOT Diameter 2.13 cm Left Atrium LA Volume Index (2D A2C): 19.95 ml/m2 Left Atrium Systolic Dimension: 3.38 cm Mitral Valve MV E to A Ratio: 0.92 Mitral Valve A-Wave Peak Velocity: 1.04 m/s Mitral Valve E-Wave Peak Velocity: 0.96 m/s Right Ventricle Aorta AO Root Diam: 3.32 cm Aortic Valve AoV Area (Peak Vinny): 1.98 cm2, 1.98 cm2 AoV Area (VTI): 2.13 cm2, 2.13 cm2 Peak Velocity(Antegrade Flow): 1.64 m/s Peak Gradient(Antegrade Flow): 10.77 mm[Hg] Mean Velocity(Antegrade Flow): 1.04 m/s Mean Gradient(Antegrade Flow): 4.96 mm[Hg] Velocity Time Integral: 37.13 cm Tricuspid Valve Pulmonic Valve Mean Gradient: 1.19 mm[Hg] Mean Velocity: 0.51 m/s Peak Velocity: 0.79 m/s, 0.75 m/s Peak Gradient: 2.23 mm[Hg], 2.49 mm[Hg] Right Atrium Right Atrium Systolic Pressure: 45.52 ml, 45.52 ml Dictated by: Heide Macdonald M.D. on 08/15/2024 at 14:46 Approved by: Heide Macdonald M.D. on 08/15/2024 at 14:56 Dictated By: HEIDE MACDONALD Signed By: 08/15/24 1457 DD/ 55 TD/TT: Air Moving Technician: [place] [address] Cardiology Report Signed Patient: VIRGEN GONZALES MR#: [id number] : 1955 Acct:[id number] Age/Sex: 68 / F ADM Date: 08/12/24 Loc: LAB Attending Dr: Mikey Granger M.D. Ordering Physician: Carter Granger M.D. Date of Service: 08/12/24 Procedure(s): CA ech o doppler complete Accession Number(s): [id number] cc: AGGIE DAVIS ; Carter Granger M.D. Patient Name: VIRGEN GONZALES MR#: [id number] : 1955 Exam Date: 08/12/2024 Ordering Doctor: DR Carter Granger . ECHOCARDIOGRAM REPORT PROCEDURE: CA ECHO DOPPLER COMPLETE INDICATIONS: Syncope , smoker, hypertension, diabetes, h/o [place] COMPARISON: None. DESCRIPTION: COMPLET E ECHOCARDIOGRAM Real-time transthoracic echocardiography wit h 2D, M-mode, spectral and color flow Doppler performed. QUALITY: Technical quality was good. LEFT VENTRICLE: Norm al chamber size. Thickened septal wall. Normal systolic function. LV EF: Normal left ventricular ejection fraction, (55-60%). DIASTOLIC: Diastolic function is indeterminate. ATRIAL SEPTUM: Visua lly appears intact. LEFT ATRIUM: Normal chamber size. RIGHT ATRIUM: Normal chamber size. RIGHT VENTRICLE: Nor mal chamber size. Normal right ventricular systolic function. TRICUSPID VALVE: Nor mal mobility and thickness. No stenosis with no regurgitation. Unabl e to assess right sided pressures due to lack of measurable tricuspid regurgitation. MITRAL VALVE: Normal mobility and thickness. No evidence of mitral valve stenosis. There is n o mitral annular calcification. No mitral regurgitation. AORTIC VALVE: Normal trileaflet appearance. No visible sclerosis. Normal leaflet mobility. No evidence of aortic valve stenosis. No aortic regurgitation. AORTIC ROOT: Normal diameter and appearance. PULMONIC VALVE: Norm al thickness and mobility. No stenosis. No regurgitation. PERICARDIUM: No evid ence of pericardial effusion. IVC: IVC is normal i n size, does not fully collapse. PLEURA: CONCLUSION: 1. Normal ventricula r size and systolic function. LVEF is 55-60%. 2. No significant valvular dysfunction. 3. Unable to assess right sided pressures due to lack of measurable tricuspid regurgitation. Adult Echocardiograp hy Procedure Report Left Ventricle LVEDD (3.7 - 5.6 cm) : 4.14 cm LVESD (2.2 - 4.0 cm) : 3.29 cm LVIVS thickness (0.6 - 1.2 cm): 1.11 cm LVPW thickness (0.5 - 1.0 cm): 0.89 cm e': 0.09 m/s E - e': 10.41 LVOT Max Gradient: 3 .34 mm[Hg] LVOT Area (cm2): 0.91 m/s Peak Velocity (LVOT) : 0.91 m/s Mean Velocity (LVOT) : 0.67 m/s LVOT Diameter 2.13 cm Left Atrium LA Volume Index (2D A2C): 19.95 ml/m2 Left Atrium Systolic Dimension: 3.38 cm Mitral Valve MV E to A Ratio: 0.92 Mitral Valve A-Wave Peak Velocity: 1.04 m/s Mitral Valve E-Wave Peak Velocity: 0.96 m/s Right Ventricle Aorta AO Root Diam: 3.32 cm Aortic Valve AoV Area (Peak Vinny): 1.98 cm2, 1.98 cm2 AoV Area (VTI): 2.13 cm2, 2.13 cm2 Peak Velocity(Antegr janki Flow): 1.64 m/s Peak Gradient(Antegr janki Flow): 10.77 mm[Hg] Mean Velocity(Antegr janki Flow): 1.04 m/s Mean Gradient(Antegr janki Flow): 4.96 mm[Hg] Velocity Time Integr al: 37.13 cm Tricuspid Valve Pulmonic Valve Mean Gradient: 1.19 mm[Hg] Mean Velocity: 0.51 m/s Peak Velocity: 0.79 m/s, 0.75 m/s Peak Gradient: 2.23 mm[Hg], 2.49 mm[Hg] Right Atrium Right Atrium Systoli c Pressure: 45.52 ml, 45.52 ml Dictated by: Heide Macdonald M.D. on 08/15/2024 at 14:46 Approved by: Heide Macdonald M.D. on 08/15/2024 at 14:56 Dictated By: HEIDE MACDONALD Signed By: 08/15/24 1457 DD/ 1456 TD/TT: Air Moving Technician: BNP Reviewed date:11/01/2024 09:38:41 PM Interpretation: Performing Lab: Notes/Report: [facility] , NT Pro B Type Natriuretic Pept 70.0 <=900.0 pg/mL Performing Lab: see note - [facility] LB CBC AUTO DIFF Reviewed date:11/01/2024 09:38:41 PM Interpretation: Performing Lab: Notes/Report: [facility] , White Blood Count 15.3 4.0-11.0 10 3/uL Red Blood Count 4.48 4.20-5.40 10 6/uL Hemoglobin 13.0 12.0-16.0 g/dL Hematocrit 40.2 36.0-48.0 % Mean Corpuscular Volume 89.7 81.0-99.0 fL Mean Corpuscular Hemoglobin 29.0 26.7-34.0 pg Mean Corpuscular HGB Conc 32.3 29.9-35.2 g/dL Red Cell Distribution Width 15.8 11.0-15.0 % Platelet Count 221 150-450 10 3/uL Mean Platelet Volume 11.5 9.5-13.5 fL Neutrophils Percent Auto 74.0 43.0-75.0 % Lymphocytes Percent Auto 18.8 20.5-60.0 % Monocytes Percent Auto 5.2 1.7-12.0 % Eosinophils Percent Auto 1.2 0.9-7.0 % Basophils Percent Auto 0.4 0.2-2.0 % Immature Granulocytes Pct Auto 0.4 0.0-0.5 % Neutrophils Absolute Auto 11.3 1.4-6.5 10 3/uL Lymphocytes Absolute Auto 2.9 1.2-3.8 10 3/uL Monocytes Absolute Auto 0.8 0.3-0.8 10 3/uL Eosinophils Absolute Auto 0.2 0.0-0.7 10 3/uL Basophils Absolute Auto 0.1 0.0-0.1 10 3/uL Immature Granulocytes Abs Auto 0.06 0.00-0.03 10 3/uL Performing Lab: see note ML - [facility] LB MAGNESIUM Reviewed date:11/01/2024 09:38:41 PM Interpretation: Performing Lab: Notes/Report: [facility] , Magnesium 1.9 1.8-2.4 mg/dL Performing Lab: see note ML - [facility] LB PROF 14(COMP METB) Reviewed date:11/01/2024 09:38:41 PM Interpretation: Performing Lab: Notes/Report: [facility] , Sodium 138 136-145 mmol/L Potassium 3.2 3.5-5.1 mmol/L Chloride 104 98-107 mmol/L Carbon Dioxide 17.4 21.0-32.0 mmol/L Anion Gap 19.8 Glucose 136 74-106 mg/dL Blood Urea Nitrogen 54.0 7.0-18.0 mg/dL Creatinine 3.31 0.55-1.02 mg/dL Estimated GFR ( Vanda 17 >=60 mL/min/1.73m 2 Estimated GFR (Non- Laura 14 >=60 mL/min/1.73m 2 BUN Creatinine Ratio 16.3 Calcium 8.5 8.5-10.1 mg/dL Bilirubin Total 0.3 0.2-1.0 mg/dL Aspartate Amino Transferase 15 15-37 U/L Alanine Aminotransferase 16 14-59 U/L Alkaline Phosphatase 132 46-116 U/L Total Protein 7.0 6.4-8.2 g/dL Albumin Level 3.6 3.4-5.0 g/dL Globulin 3.4 Albumin Globulin Ratio 1.1 Performing Lab: see note ML - [facility] LB Troponin I High Sensitivity Reviewed date:11/01/2024 09:38:41 PM Interpretation: Performing Lab: Notes/Report: [facility] , Troponin I High Sensitivity 42.1 4.0-51.3 pg/mL CUT-OFF POINTS HAVE BEEN ESTABLISHED BASED ON THE FOURTH UNIVERSAL DEFINITION OF MYOCARDIAL INFARCTION. THE UPPER REFERENCE LIMIT (URL) OF TROPONIN, DEFINED THE 99TH PERCENTILE OF cTnI DISTRIBUTION IN A REFERENCE POPULATION, HAS BEEN CONFIRMED THE DECISION THRESHOLD FOR [place] DIAGNOSIS. 99TH PERCENTILE = 51.4 PG/ML NOTE: HIGH-SENSITIVITY TROPONIN ASSAY IS NOT INTENDED TO BE USED IN ISOLATION BUT SHOULD BE INTERPRETED IN CONJUNCTION WITH OTHER DIAGNOSTIC AND CLINICAL INFORMATION. Performing Lab: see note ML - [facility] LB E coli Shiga Toxin EIA Reviewed date:11/02/2024 03:38:58 PM Interpretation: Performing Lab: Notes/Report: [facility] , E coli Shiga Toxin EIA See Below For Report E coli Shiga Toxin EIA E coli Shiga Toxin EIA Negative E coli Shiga Toxin EIA E coli Shiga Toxin EIA Performed at: [facility] E coli Shiga Toxin EIA E coli Shiga Toxin EIA [address] [place], [place] [id number] E coli Shiga Toxin EIA E coli Shiga Toxin EIA Engineering Lab Technician: Dheeraj Masterson PhD, Phone: [phone] E coli Shiga Toxin EIA Performing Lab: see note - [facility] LB SEE REPORT - Butcher'S Assistant Id information not found for OBX-specific senior office assistant legend Salmonella/Shigella Screen Reviewed date:11/05/2024 03:51:11 PM Interpretation: Performing Lab: Notes/Report: [facility] , Salmonella/Shigella Screen See Below For Report Salmonella/Shigella Screen Salmonella/Shigella Screen No Salmonella or Shigella recovered. Salmonella/Shigella Screen [facility]forming [facility] Venous Blood Gas Reviewed date:11/01/2024 09:38:41 PM Interpretation: Performing Lab: Notes/Report: [facility] , pH VBG 7.171 7.330-7.430 PCO2 VBG 41.6 40.0-52.0 mmHg Performing Lab: see note - [facility] LB Acetone Reviewed date:11/01/2024 09:38:41 PM Interpretation: Performing Lab: Notes/Report: [facility] , Acetone NEGATIVE NEGATIVE Performing Lab: see note - [facility] LB Urine Culture - [facility] Reviewed date:11/02/2024 01:42:13 PM Interpretation: Performing Lab: Notes/Report: [facility] , Urine Culture - [facility] See Below For Report Urine Culture - [facility] <9,000 colonies/ml mixed Urine Culture - [facility] bacterial skin contaminants Urine Culture - [facility] <9,000 colonies/ml mixed Urine Culture - [facility] 2 Days Urine Culture - [facility] <9,000 colonies/ml mixed Urine Culture - [facility] Urine Culture - [facility] <9,000 colonies/ml mixed Urine Culture - [facility] Testing performed a [facility] Urine Culture - [facility] <9,000 colonies/ml mixed Urine Culture - [facility] [address] [place] [address] Urine Culture - [facility] <9,000 colonies/ml mixed Performing Lab: see note ML - [facility] LB ECG 12 lead Reviewed date:11/01/2024 09:38:41 PM Interpretation: Performing Lab: Notes/Report: Source Facility: [facility] [place] [address] [place] [address] Electrocardiograph Report Signed Patient: VIRGEN GONZALES MR#: [id number] : 1955 Acct:[id number] Age/Sex: 69 / F ADM Date: 10/30/24 Loc: MS 202- Attending Dr: Carter Granger M.D. 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 Measurements Intervals [place] Rate: 72 P: 30 NH: 168 QRS: -42 QRSD: 140 T: 19 QT: 430 QTc: 454 Interpretive Statements 1100 Sinus rhythm 1102 Sinus arrhythmia 2450 Right bundle branch block 7200 Abnormal left axis deviation 9150 abnormal ECG Compared to ECG 01/24/2024 23:25:30 Left-axis deviation now present Electronically Signed On 10-31-2024 8:56:50 EDT by HEIDE MACDONALD M.D. Dictated By: HEIDE MACDONALD Signed By: 10/31/24 0857 DD/ 1830 TD/TT: Air Moving Technician: [place] [address] Electrocardiograph Report Signed Patient: VIRGEN GONZALES MR#: [id number] : 1955 Acct:[id number] Age/Sex: 69 / F ADM Date: 10/30/24 Loc: MS 202- Attending Dr: Mikey Granger M.D. Ordering Physician: Jose Diamond Date of Service: 10/30/24 Procedure(s): ECG 12 lead Accession Number(s): [id number] cc: [facility] Test Date: 2024-10-30 Pat Name: VIRGEN GONZALES Department: 32 Room: - Gender: Female Sales Teacher: : 1955 Requ ested By: 0919 Order Number: [id number] Reading MD: HEIDE MACDONALD M.D. Measurements Intervals [place] Rate: 72 P: 30 NH: 168 QRS: -42 QRSD: 140 T: 19 QT: 430 QTc: 454 Interpretive Statements 1100 Sinus rhythm 1102 Sinus arrhythmia 2450 Right bundle br anch block 7200 Abnormal left a xis deviation 9150 abnormal ECG Compared to ECG 01/24/2024 23:25:30 Left-axis deviation now present Electronically Nell d On 10-31-2024 8:56:50 EDT by HEIDE MACDONALD M.D. Dictated By: HEIDE MACDONALD Signed By: 10/31/24 0857 DD/ 1830 TD/TT: Air Moving Technician: E coli Shiga Toxin EIA Reviewed date:11/05/2024 03:51:11 PM Interpretation: Performing Lab: Notes/Report: [facility] , E coli Shiga Toxin EIA See Below For Report E coli Shiga Toxin EIA E coli Shiga Toxin EIA Negative E coli Shiga Toxin EIA E coli Shiga Toxin EIA Performed at: [facility] E coli Shiga Toxin EIA E coli Shiga Toxin EIA [address] [place] [phone] E coli Shiga Toxin EIA E coli Shiga Toxin EIA Engineering Lab Technician: Dheeraj Masterson PhD, Phone: [phone] E coli Shiga Toxin EIA Performing Lab: see note - [facility] LB SEE REPORT - Butcher'S Assistant Id information not found for OBX-specific senior office assistant legend CBC AUTO DIFF Reviewed date:11/01/2024 09:38:41 PM Interpretation: Performing Lab: Notes/Report: [facility] , White Blood Count 11.4 4.0-11.0 10 3/uL Red Blood Count 3.89 4.20-5.40 10 6/uL Hemoglobin 11.3 12.0-16.0 g/dL Hematocrit 35.1 36.0-48.0 % Mean Corpuscular Volume 90.2 81.0-99.0 fL Mean Corpuscular Hemoglobin 29.0 26.7-34.0 pg Mean Corpuscular HGB Conc 32.2 29.9-35.2 g/dL Red Cell Distribution Width 15.7 11.0-15.0 % Platelet Count 175 150-450 10 3/uL Mean Platelet Volume 10.9 9.5-13.5 fL Neutrophils Percent Auto 75.3 43.0-75.0 % Lymphocytes Percent Auto 16.3 20.5-60.0 % Monocytes Percent Auto 5.4 1.7-12.0 % Eosinophils Percent Auto 1.8 0.9-7.0 % Basophils Percent Auto 0.4 0.2-2.0 % Immature Granulocytes Pct Auto 0.8 0.0-0.5 % Neutrophils Absolute Auto 8.6 1.4-6.5 10 3/uL Lymphocytes Absolute Auto 1.9 1.2-3.8 10 3/uL Monocytes Absolute Auto 0.6 0.3-0.8 10 3/uL Eosinophils Absolute Auto 0.2 0.0-0.7 10 3/uL Basophils Absolute Auto 0.0 0.0-0.1 10 3/uL Immature Granulocytes Abs Auto 0.09 0.00-0.03 10 3/uL Performing Lab: see note ML - [facility] LB PROF 14(COMP METB) Reviewed date:11/01/2024 09:38:41 PM Interpretation: Performing Lab: Notes/Report: [facility] , Sodium 143 136-145 mmol/L Potassium 4.2 3.5-5.1 mmol/L Chloride 113 98-107 mmol/L Carbon Dioxide 17.5 21.0-32.0 mmol/L Anion Gap 16.7 Glucose 122 74-106 mg/dL Blood Urea Nitrogen 46.0 7.0-18.0 mg/dL Creatinine 2.68 0.55-1.02 mg/dL Estimated GFR ( Vanda 21 >=60 mL/min/1.73m 2 Estimated GFR (Non- Laura 18 >=60 mL/min/1.73m 2 BUN Creatinine Ratio 17.2 Calcium 7.6 8.5-10.1 mg/dL Bilirubin Total 0.2 0.2-1.0 mg/dL Aspartate Amino Transferase 13 15-37 U/L Alanine Aminotransferase 14 14-59 U/L Alkaline Phosphatase 110 46-116 U/L Total Protein 5.7 6.4-8.2 g/dL Albumin Level 2.8 3.4-5.0 g/dL Globulin 2.9 Albumin Globulin Ratio 1.0 Performing Lab: see note ML - [facility] LB CBC AUTO DIFF Reviewed date:11/01/2024 09:38:41 PM Interpretation: Performing Lab: Notes/Report: [facility] , White Blood Count 8.7 4.0-11.0 10 3/uL Red Blood Count 3.65 4.20-5.40 10 6/uL Hemoglobin 10.6 12.0-16.0 g/dL Hematocrit 33.0 36.0-48.0 % Mean Corpuscular Volume 90.4 81.0-99.0 fL Mean Corpuscular Hemoglobin 29.0 26.7-34.0 pg Mean Corpuscular HGB Conc 32.1 29.9-35.2 g/dL Red Cell Distribution Width 15.9 11.0-15.0 % Platelet Count 173 150-450 10 3/uL Mean Platelet Volume 10.9 9.5-13.5 fL Neutrophils Percent Auto 66.5 43.0-75.0 % Lymphocytes Percent Auto 23.1 20.5-60.0 % Monocytes Percent Auto 6.1 1.7-12.0 % Eosinophils Percent Auto 2.9 0.9-7.0 % Basophils Percent Auto 0.7 0.2-2.0 % Immature Granulocytes Pct Auto 0.7 0.0-0.5 % Neutrophils Absolute Auto 5.8 1.4-6.5 10 3/uL Lymphocytes Absolute Auto 2.0 1.2-3.8 10 3/uL Monocytes Absolute Auto 0.5 0.3-0.8 10 3/uL Eosinophils Absolute Auto 0.3 0.0-0.7 10 3/uL Basophils Absolute Auto 0.1 0.0-0.1 10 3/uL Immature Granulocytes Abs Auto 0.06 0.00-0.03 10 3/uL Performing Lab: see note ML - [facility] LB PROF 14(COMP METB) Reviewed date:11/16/2024 02:19:49 PM Interpretation: Performing Lab: Notes/Report: [facility] , Sodium 141 136-145 mmol/L Potassium 3.8 3.5-5.1 mmol/L Chloride 105 98-107 mmol/L Carbon Dioxide 30.3 21.0-32.0 mmol/L Anion Gap 9.5 Glucose 151 74-106 mg/dL Blood Urea Nitrogen 18.0 7.0-18.0 mg/dL Creatinine 1.62 0.55-1.02 mg/dL Estimated GFR ( Vanda 38 >=60 mL/min/1.73m 2 Estimated GFR (Non- Laura 31 >=60 mL/min/1.73m 2 BUN Creatinine Ratio 11.1 Calcium 8.6 8.5-10.1 mg/dL Bilirubin Total 0.3 0.2-1.0 mg/dL Aspartate Amino Transferase 14 15-37 U/L Alanine Aminotransferase 21 14-59 U/L Alkaline Phosphatase 115 46-116 U/L Total Protein 6.3 6.4-8.2 g/dL Albumin Level 3.1 3.4-5.0 g/dL Globulin 3.2 Albumin Globulin Ratio 1.0 Performing Lab: see note ML - [facility] LB Campylobacter Culture Reviewed date:11/05/2024 03:51:11 PM Interpretation: Performing Lab: Notes/Report: [facility] , Campylobacter Culture See Below For Report Campylobacter Culture No Campylobacter species isolated. Performing Lab: see note LC - [facility] LB C. Difficile PCR Reviewed date:11/01/2024 09:38:41 PM Interpretation: Performing Lab: Notes/Report: [facility] , C. Difficile PCR NEGATIVE Performing Lab: see note - [facility] LB UA RANDOM W or MICROSCOPIC Reviewed date:11/01/2024 09:38:41 PM Interpretation: Performing Lab: Notes/Report: [facility] , Color Urine YELLOW YELLOW Clarity Urine CLOUDY CLEAR Specific [place] Urine 1.015 1.005-1.025 pH Urine 6.0 5.0-9.0 Protein Urine 30 NEG/TRACE mg/dL Glucose Urine UA NEGATIVE NEGATIVE mg/dL Bilirubin Urine NEGATIVE NEGATIVE Ketones Urine NEGATIVE NEGATIVE mg/dL Blood Urine MODERATE NEGATIVE Nitrite Urine NEGATIVE NEGATIVE Urobilinogen Urine 0.2 0.2-1.0 EU/dL Leukocyte Esterase Urine MODERATE NEGATIVE WBC Urine >100 NONE SEEN #/HPF RBC Urine NONE SEEN 0-2 #/HPF Bacteria Urine SMALL NONE SEEN #/HPF Mucus Urine NONE SEEN NONE SEEN Squamous Epithelial Cell Urine FEW NONE/RARE #/LPF Crystals Seen? None Seen None Seen #/HPF Cast Seen? NONE SEEN NONE SEEN #/LPF Yeast Urine SEEN NONE SEEN Many budding ye ast Urine Culture Indicated YES-[facility] [place] Performing Lab: see note ML - [facility] LB TSH Reviewed date:07/17/2024 02:33:39 PM Interpretation: Performing Lab: Notes/Report: [facility] , Thyroid Stimulating Hormone 2.954 0.358-3.740 uIU/mL Performing Lab: see note ML - [facility] [place] T4 Reviewed date:07/17/2024 02:33:39 PM Interpretation: Performing Lab: Notes/Report: [facility] , T4 Thyroxine 5.50 4.80-13.90 ug/dL Performing Lab: see note - [facility] [place] PROF 14(COMP METB) Reviewed date:07/17/2024 02:33:39 PM Interpretation: Performing Lab: Notes/Report: [facility] , Sodium 143 136-145 mmol/L Potassium 4.6 3.5-5.1 mmol/L Chloride 107 98-107 mmol/L Carbon Dioxide 31.5 21.0-32.0 mmol/L Anion Gap 9.1 Glucose 159 74-106 mg/dL Blood Urea Nitrogen 33.0 7.0-18.0 mg/dL Creatinine 2.33 0.55-1.02 mg/dL Estimated GFR ( Vanda 25 >=60 mL/min/1.73m 2 Estimated GFR (Non- Laura 21 >=60 mL/min/1.73m 2 BUN Creatinine Ratio 14.2 Calcium 8.9 8.5-10.1 mg/dL Bilirubin Total 0.3 0.2-1.0 mg/dL Aspartate Amino Transferase 12 15-37 U/L Alanine Aminotransferase 17 14-59 U/L Alkaline Phosphatase 120 46-116 U/L Total Protein 6.4 6.4-8.2 g/dL Albumin Level 3.1 3.4-5.0 g/dL Globulin 3.3 Albumin Globulin Ratio 0.9 Performing Lab: see note ML - [facility] LB FREE T3 Reviewed date:07/17/2024 02:33:39 PM Interpretation: Performing Lab: Notes/Report: [facility] , Free T3 1.81 2.18-3.98 pg/mL Performing Lab: see note ML - [facility] LB TSH Reviewed date:07/10/2024 03:02:41 PM Interpretation: Performing Lab: Notes/Report: [facility] , Thyroid Stimulating Hormone 2.731 0.358-3.740 uIU/mL Performing Lab: see note ML - [facility] LB T4 Reviewed date:07/10/2024 03:02:41 PM Interpretation: Performing Lab: Notes/Report: [facility] , T4 Thyroxine 6.40 4.80-13.90 ug/dL Performing Lab: see note - [facility] [place] PROF 14(COMP METB) Reviewed date:07/10/2024 03:02:41 PM Interpretation: Performing Lab: Notes/Report: [facility] , Sodium 142 136-145 mmol/L Potassium 4.7 3.5-5.1 mmol/L Chloride 103 98-107 mmol/L Carbon Dioxide 29.6 21.0-32.0 mmol/L Anion Gap 14.1 Glucose 277 74-106 mg/dL Blood Urea Nitrogen 31.0 7.0-18.0 mg/dL Creatinine 2.26 0.55-1.02 mg/dL Estimated GFR ( Vanda 26 >=60 mL/min/1.73m 2 Estimated GFR (Non- Laura 21 >=60 mL/min/1.73m 2 BUN Creatinine Ratio 13.7 Calcium 8.6 8.5-10.1 mg/dL Bilirubin Total 0.3 0.2-1.0 mg/dL Aspartate Amino Transferase 11 15-37 U/L Alanine Aminotransferase 15 14-59 U/L Alkaline Phosphatase 118 46-116 U/L Total Protein 6.4 6.4-8.2 g/dL Albumin Level 3.1 3.4-5.0 g/dL Globulin 3.3 Albumin Globulin Ratio 0.9 Performing Lab: see note ML - [facility] LB GLYCOHEMOGLOBIN A1C Reviewed date:07/10/2024 03:02:41 PM Interpretation: Performing Lab: Notes/Report: [facility] , Glycohemoglobin A1C 10.6 4.5-6.2 % ADA RECOMMENDED LIMIT 4.0 - 6.0 ADA THERAPEUTIC TARGET < 7.0 ACTION SUGGESTED > 7.0 Estimated Average Glucose 258 Performing Lab: see note ML - [facility] FREE T3 Reviewed date:07/10/2024 03:02:41 PM Interpretation: Performing Lab: Notes/Report: [facility] , Free T3 1.97 2.18-3.98 pg/mL Performing Lab: see note ML - [facility] LB US biopsy FNA add lesion Reviewed date:02/24/2024 12:50:11 PM Interpretation: Performing Lab: Notes/Report: Source Facility: [place] [address] [place] [address] Ultrasound Report Signed with Sarah Patient: VIRGEN GONZALES MR#: [id number] : 1955 Acct:[id number] Age/Sex: 68 / F ADM Date: 02/14/24 Loc: US Attending Dr: AGIGE DAVSI Ordering Physician: AGGIE DAVIS Date of Service: 02/14/24 Procedure(s): US biopsy FNA add lesion Accession Number(s): [id number] cc: AGGIE DAVIS ADDENDUM [address] [place] [address] Patient Name: VIRGEN GONZALES MRN: [facility]:[id number] date: 1955 Sex: F Assigned Patient Location: Current Patient Location: US Accession/Order Number: [id number] Exam Date: 02/14/2024 09:10 Report Date: 02/21/2024 16:42 At the request of: AGGIE DAVIS Procedure: US biopsy FNA add lesion Begin Addendum #1 COLLECTION DATE: 02/14/2024 Pathological Diagnosis: A. Right thyroid, fine needle aspiration: Suspicious for follicular neoplasm, atypical follicular cells with abundant colloid. [place] Category IV B. Isthmus, fine needle aspiration: Unsatisfactory for evaluation. Too few epithelial cells. [place] Category I 02/20/2024 Faxed to Aggie Davis NP. Verified with Sue that report was present in office. Original Report EXAMINATION: US biopsy thyroid, US biopsy FNA add lesion HISTORY: Thyroid Nodules COMPARISON: No relevant comparison available. TECHNIQUE: After obtaining informed consent, ultrasound-guided fine needle aspiration was performed in the usual sterile manner. FINDINGS: IMAGING: Ultrasound. BIOPSY NEEDLE: 25-gauge; 3 separate passes within both lesions. LOCATION: Right lobe midupper pole 1. 6 cm mass. Right sided isthmus 2. 0 x 1. 9 x 0. 7 cm mass. SPECIMEN TYPE: Cellular tissue. LOCAL ANESTHETIC: Buffered Xylocaine. COMPLICATIONS: None. LABORATORY: Prepared slide smears and washings for cell block evaluation. OTHER: Negative. PATHOLOGY: Pending. An addendum will be added when results are available. Addendum Dictated By: Becky Owens M.D. Addendum Signed By: <Electronically signed by Becky Owens M.D.> 02/24/24831 Addendum Cosigned By: DD/ TD/TT: / ADDENDUM US/US biopsy FNA add lesion IMPRESSION: 1. Uneventful ultrasound guided fine needle aspiration (FNA). 2. Pathology results are pending. Electronically authenticated by: BECKY OWENS Date: 02/21/2024 16:42 Addendum Dictated By: Becky Owens M.D. Addendum Signed By: <Electronically signed by Becky Owens M.D.> 02/24/24831 Addendum Cosigned By: DD/ TD/TT: / [place] [id number] Patient Name: VIRGEN GONZALES MRN: [id number] date: 1955 Sex: F Assigned Patient Location: US Current Patient Location: Accession/Order Number: [id number] Exam Date: 02/14/2024 09:10 Report Date: 02/14/2024 10:31 At the request of: AGGIE DAVIS Procedure: US biopsy FNA add lesion EXAMINATION: US biopsy thyroid, US biopsy FNA add lesion HISTORY: Thyroid Nodules COMPARISON: No relevant comparison available. TECHNIQUE: After obtaining informed consent, ultrasound-guided fine needle aspiration was performed in the usual sterile manner. FINDINGS: IMAGING: Ultrasound. BIOPSY NEEDLE: 25-gauge; 3 separate passes within both lesions. LOCATION: Right lobe midupper pole 1.6 cm mass. Right sided isthmus 2.0 x 1.9 x 0.7 cm mass. SPECIMEN TYPE: Cellular tissue. LOCAL ANESTHETIC: Buffered Xylocaine. COMPLICATIONS: None. LABORATORY: Prepared slide smears and washings for cell block evaluation. OTHER: Negative. PATHOLOGY: Pending. An addendum will be added when results are available. US/US biopsy FNA add lesion IMPRESSION: 1. Uneventful ultrasound guided fine needle aspiration (FNA). 2. Pathology results are pending. Electronically authenticated by: BECKY OWENS Date: 02/14/2024 10:31 Dictated By: Becky Owens M.D. Signed By: 02/14/24 1033 DD/ 1031 TD/TT: Air Moving Technician: [place] [address] Ultrasound Report Signed with Anna Marieenda Patient: VIRGEN GONZALES MR#: [id number] : 1955 Acct:[id number] Age/Sex: 68 / F ADM Date: 02/14/24 Loc: US Attending Dr: AGGIE DAVIS Ordering Physician: AGGIE DAVIS Date of Service: 02/14/24 Procedure(s): US bio psy FNA add lesion Accession Number(s): [id number] cc: AGGIE DAVIS ADDENDUM [place] [id number] Patient Name: VIRGEN GONZALES MRN: [id number] date: 1955 Sex: F Assigned Patient Location: US Current Patient Loca tion: US Accession/Order Numb er: [id number] Exam Date: 02/14/2024 09:10 Report Date: 02/21/2024 16:42 At the request of: AGGIE DAVIS Procedure: US biopsy FNA add lesion Begin Addendum #1 COLLECTION DATE: 02/14/2024 Pathological Diagnosis: A. Right thyroid, fi ne needle aspiration: Suspicious for follicular neoplasm, atypical follicular cells with abundant colloid. [place] Category IV B. Isthmus, fine nee dle aspiration: Unsatisfactory for evaluation. Too few epithelial cells. [place] Category I 02/20/2024 Faxed to Keke Davis NP. Verified with Sue that report was present in office. Original Report EXAMINATION: US biop sy thyroid, US biopsy FNA add lesion HISTORY: Thyroid Nodules COMPARISON: No relev ant comparison available. TECHNIQUE: After obtaining informed consent, ultrasound-guided fine needle aspiration was perfo rmed in the usual sterile manner. FINDINGS: IMAGING: Ultrasound. BIOPSY NEEDLE: 25-ga uge; 3 separate passes within both lesions. LOCATION: Right lobe midupper pole 1. 6 cm mass. Right sided isthmus 2. 0 x 1. 9 x 0. 7 cm mass. SPECIMEN TYPE: Cellu lar tissue. LOCAL ANESTHETIC: Buffered Xylocaine. COMPLICATIONS: None. LABORATORY: Prepared slide smears and washings for cell block evaluation. OTHER: Negative. PATHOLOGY: Pending. An addendum will be added when results are available. Addendum Dictated By : Becky Owens M.D. Addendum Signed By: <Electronically signed by Becky Owens M.D.> 02/24/24831 Addendum Cosigned By: DD/ TD/TT: / ADDENDUM S/ biopsy FNA add lesion IMPRESSION: 1. Uneventful ultras ound guided fine needle aspiration (FNA). 2. Pathology results are pending. Electronically authenticated by: BECKY OWENS Date: 02/21/2024 16:42 Addendum Dictated By : Becky Owens M.D. Addendum Signed By: <Electronically signed by Becky Owens M.D.> 02/24/24831 Addendum Cosigned By: DD/ TD/TT: / [place] [id number] Patient Name: VIRGEN GONZALES MRN: [id number] date: 1955 Sex: F Assigned Patient Location: US Current Patient Location: Accession/Order Numb er: [id number] Exam Date: 02/14/2024 09:10 Report Date: 02/14/2024 10:31 At the request of: AGGIE DAVIS Procedure: US biopsy FNA add lesion EXAMINATION: US biop sy thyroid, US biopsy FNA add lesion HISTORY: Thyroid Nodules COMPARISON: No relev ant comparison available. TECHNIQUE: After obtaining informed consent, ultrasound-guided fine needle aspiration was perfo rmed in the usual sterile manner. FINDINGS: IMAGING: Ultrasound. BIOPSY NEEDLE: 25-ga uge; 3 separate passes within both lesions. LOCATION: Right lobe midupper pole 1.6 cm mass. Right sided isthmus 2.0 x 1.9 x 0.7 cm mass. SPECIMEN TYPE: Cellu lar tissue. LOCAL ANESTHETIC: Buffered Xylocaine. COMPLICATIONS: None. LABORATORY: Prepared slide smears and washings for cell block evaluation. OTHER: Negative. PATHOLOGY: Pending. An addendum will be added when results are available. S/US biopsy FNA add lesion IMPRESSION: 1. Uneventful ultras ound guided fine needle aspiration (FNA). 2. Pathology results are pending. Electronically authenticated by: BECKY OWENS Date: 02/14/2024 10:31 Dictated By: Becky Owens M.D. Signed By: 02/14/24 1033 DD/ 1031 TD/TT: Air Moving Technician: US biopsy thyroid Reviewed date:02/24/2024 12:50:11 PM Interpretation: Performing Lab: Notes/Report: Source Facility: [place] [address] [place] [address] Ultrasound Report Signed with Sarah Patient: VIRGEN GONZALES MR#: [id number] : 1955 Acct:[id number] Age/Sex: 68 / F ADM Date: 02/14/24 Loc: US Attending Dr: AGGIE DAVIS Ordering Physician: AGGIE DAVIS Date of Service: 02/14/24 Procedure(s): US biopsy thyroid Accession Number(s): [id number] cc: AGGIE DAVIS ADDENDUM [address] [place] [id number] Patient Name: VIRGEN GONZALES MRN: [id number] date: 1955 Sex: F Assigned Patient Location: US Current Patient Location: US Accession/Order Number: [id number] Exam Date: 02/14/2024 09:10 Report Date: 02/21/2024 16:42 At the request of: AGGIE DAVIS Procedure: US biopsy thyroid Begin Addendum #1 COLLECTION DATE: 02/14/2024 Pathological Diagnosis: A. Right thyroid, fine needle aspiration: Suspicious for follicular neoplasm, atypical follicular cells with abundant colloid. [place] Category IV B. Isthmus, fine needle aspiration: Unsatisfactory for evaluation. Too few epithelial cells. [place] Category I 02/20/2024 Faxed to Aggie Davis NP. Verified with Sue that report was present in office. Original Report EXAMINATION: US biopsy thyroid, US biopsy FNA add lesion HISTORY: Thyroid Nodules COMPARISON: No relevant comparison available. TECHNIQUE: After obtaining informed consent, ultrasound-guided fine needle aspiration was performed in the usual sterile manner. FINDINGS: IMAGING: Ultrasound. BIOPSY NEEDLE: 25-gauge; 3 separate passes within both lesions. LOCATION: Right lobe midupper pole 1. 6 cm mass. Right sided isthmus 2. 0 x 1. 9 x 0. 7 cm mass. SPECIMEN TYPE: Cellular tissue. LOCAL ANESTHETIC: Buffered Xylocaine. COMPLICATIONS: None. LABORATORY: Prepared slide smears and washings for cell block evaluation. OTHER: Negative. PATHOLOGY: Pending. An addendum will be added when results are available. Addendum Dictated By: Becky Owens M.D. Addendum Signed By: <Electronically signed by Becky Owens M.D.> 02/24/24 08 Addendum Cosigned By: DD/ TD/TT: / ADDENDUM US/US biopsy thyroid IMPRESSION: 1. Uneventful ultrasound guided fine needle aspiration (FNA). 2. Pathology results are pending. Electronically authenticated by: BECKY OWENS Date: 02/21/2024 16:42 Addendum Dictated By: Becky Owens M.D. Addendum Signed By: <Electronically signed by Becky Owens M.D.> 02/24/24 0832 Addendum Cosigned By: DD/ TD/TT: / [address] [address] Patient Name: VIRGEN GONZALES MRN: [id number] date: 1955 Sex: F Assigned Patient Location: US Current Patient Location: Accession/Order Number: [id number] Exam Date: 02/14/2024 09:10 Report Date: 02/14/2024 10:31 At the request of: AGGIE DAVIS Procedure: US biopsy thyroid EXAMINATION: US biopsy thyroid, US biopsy FNA add lesion HISTORY: Thyroid Nodules COMPARISON: No relevant comparison available. TECHNIQUE: After obtaining informed consent, ultrasound-guided fine needle aspiration was performed in the usual sterile manner. FINDINGS: IMAGING: Ultrasound. BIOPSY NEEDLE: 25-gauge; 3 separate passes within both lesions. LOCATION: Right lobe midupper pole 1.6 cm mass. Right sided isthmus 2.0 x 1.9 x 0.7 cm mass. SPECIMEN TYPE: Cellular tissue. LOCAL ANESTHETIC: Buffered Xylocaine. COMPLICATIONS: None. LABORATORY: Prepared slide smears and washings for cell block evaluation. OTHER: Negative. PATHOLOGY: Pending. An addendum will be added when results are available. US/US biopsy thyroid IMPRESSION: 1. Uneventful ultrasound guided fine needle aspiration (FNA). 2. Pathology results are pending. Electronically authenticated by: BECKY OWENS Date: 02/14/2024 10:31 Dictated By: Becky Owens M.D. Signed By: 02/14/24 1034 DD/ 1031 TD/TT: Air Moving Technician: The [address] [address] Ultrasound Report Signed with Addenda Patient: VIRGEN GONZALES MR#: [id number] : 1955 Acct:[id number] Age/Sex: 68 / F ADM Date: 02/14/24 Loc: US Attending Dr: AGGIE DAVIS Ordering Physician: AGGIE DAVIS Date of Service: 02/14/24 Procedure(s): US bio psy thyroid Accession Number(s): [id number] cc: AGGIE DAVIS ADDENDUM [address] [place] [id number] Patient Name: VIRGEN GONZALES MRN: [id number] date: 1955 Sex: F Assigned Patient Location: US Current Patient Loca tion: US Accession/Order Numb er: [id number] Exam Date: 02/14/2024 09:10 Report Date: 02/21/2024 16:42 At the request of: AGGIE DAVIS Procedure: US biopsy thyroid Begin Addendum #1 COLLECTION DATE: 02/14/2024 Pathological Diagnosis: A. Right thyroid, fi ne needle aspiration: Suspicious for follicular neoplasm, atypical follicular cells with abundant colloid. [place] Category IV B. Isthmus, fine nee dle aspiration: Unsatisfactory for evaluation. Too few epithelial cells. [place] Category I 02/20/2024 Faxed to Keke Davis NP. Verified with Sue that report was present in office. Original Report EXAMINATION: US biop sy thyroid, US biopsy FNA add lesion HISTORY: Thyroid Nodules COMPARISON: No relev ant comparison available. TECHNIQUE: After obtaining informed consent, ultrasound-guided fine needle aspiration was perfo rmed in the usual sterile manner. FINDINGS: IMAGING: Ultrasound. BIOPSY NEEDLE: 25-ga uge; 3 separate passes within both lesions. LOCATION: Right lobe midupper pole 1. 6 cm mass. Right sided isthmus 2. 0 x 1. 9 x 0. 7 cm mass. SPECIMEN TYPE: Cellu lar tissue. LOCAL ANESTHETIC: Buffered Xylocaine. COMPLICATIONS: None. LABORATORY: Prepared slide smears and washings for cell block evaluation. OTHER: Negative. PATHOLOGY: Pending. An addendum will be added when results are available. Addendum Dictated By : Becky Owens M.D. Addendum Signed By: <Electronically signed by Becky Owens M.D.> 02/24/24831 Addendum Cosigned By: DD/ TD/TT: / ADDENDUM S/ biopsy thyroid IMPRESSION: 1. Uneventful ultras ound guided fine needle aspiration (FNA). 2. Pathology results are pending. Electronically authenticated by: BECKY OWENS Date: 02/21/2024 16:42 Addendum Dictated By : Becky Owens M.D. Addendum Signed By: <Electronically signed by Becky Owens M.D.> 02/24/24831 Addendum Cosigned By: DD/ TD/TT: / [place] [address] Patient Name: VIRGEN GONZALES MRN: [id number] date: 1955 Sex: F Assigned Patient Location: US Current Patient Location: Accession/Order Numb er: [id number] Exam Date: 02/14/2024 09:10 Report Date: 02/14/2024 10:31 At the request of: AGGIE DAVIS Procedure: US biopsy thyroid EXAMINATION: US biop sy thyroid, US biopsy FNA add lesion HISTORY: Thyroid Nodules COMPARISON: No relev ant comparison available. TECHNIQUE: After obtaining informed consent, ultrasound-guided fine needle aspiration was perfo rmed in the usual sterile manner. FINDINGS: IMAGING: Ultrasound. BIOPSY NEEDLE: 25-ga uge; 3 separate passes within both lesions. LOCATION: Right lobe midupper pole 1.6 cm mass. Right sided isthmus 2.0 x 1.9 x 0.7 cm mass. SPECIMEN TYPE: Cellu lar tissue. LOCAL ANESTHETIC: Buffered Xylocaine. COMPLICATIONS: None. LABORATORY: Prepared slide smears and washings for cell block evaluation. OTHER: Negative. PATHOLOGY: Pending. An addendum will be added when results are available. S/ biopsy thyroid IMPRESSION: 1. Uneventful ultras ound guided fine needle aspiration (FNA). 2. Pathology results are pending. Electronically authenticated by: BECKY OWENS Date: 02/14/2024 10:31 Dictated By: Becky Owens M.D. Signed By: 02/14/24 1034 DD/ 1031 TD/TT: Air Moving Technician: CT angio chest Reviewed date:01/27/2024 01:01:08 PM Interpretation: Performing Lab: Notes/Report: Source Facility: [place] [address] CT Scan Report Signed Patient: VIRGEN GONZALES MR#: [id number] : 1955 Acct:[id number] Age/Sex: 68 / F ADM Date: 01/24/24 Loc: ER Attending Dr: Ordering Physician: Cira Kimball Date of Service: 01/24/24 Procedure(s): CT angio chest Accession Number(s): [id number] cc: AGGIE DAVIS [place] [address] Patient Name: VIRGEN GONZALES MRN: [id number] date: 1955 Sex: F Assigned Patient Location: ER Current Patient Location: ER Accession/Order Number: [id number] Exam Date: 01/24/2024 23:30 Report Date: 01/25/2024 00:55 At the request of: CIRA KIMBALL Procedure: CT angio chest EXAM: CT angio chest HISTORY: elevated d-dimer COMPARISON: Chest x-ray, 01/16/2024. TECHNIQUE: IV contrast enhanced CTA imaging the chest was performed with 100 mL of Visipaque 270 intravenous contrast. MIP and MPR images are provided with 3-D reconstructions. Dose reduction techniques were achieved by using automated exposure control and/or adjustment of mA and/or kV according to patient size and/or use of iterative reconstruction technique. FINDINGS: There is good enhancement of the pulmonary arteries. There is no acute pulmonary embolism. The heart is mildly enlarged. There is no coronary arterial calcification or pericardial effusion. Pulsation artifact degrades ascending aorta. Minimal atherosclerotic calcifications are noted. The thoracic aorta and arch vessels are otherwise unremarkable. There is no dissection or aneurysm. Nonspecific hypodense thyroid lobe lesions measure up to 1.3 cm on the left on image 7, suboptimally evaluated due to streak artifact related to body habitus. The esophagus appears unremarkable. No thoracic adenopathy is seen. Nonspecific patchy ground-glass opacities are seen in both lungs. A nonspecific somewhat nodular opacity in the lateral left upper lobe measuring 8 mm on image 42 of series 4. No consolidation, pleural effusion or pneumothorax is seen. There is a 1.8 cm splenic cyst. The upper abdomen is otherwise unremarkable. No acute osseous abnormality or suspicious bony lesion is seen. CT/CT angio chest IMPRESSION: 1. No acute pulmonary embolism or aortic dissection. 2. Mild patchy ground-glass opacities in both lungs, nonspecific. These are nonspecific and can be seen in numerous disease processes, including, but not limited to hypoventilation interspersed with air trapping, hypersensitivity pneumonitis, infectious pneumonitis, respiratory bronchiolitis, nonspecific interstitial pneumonia, drug toxicity, pulmonary edema and ARDS. No other potential acute findings are seen in the chest. 3. Nonspecific hypodense thyroid lobe lesions. Elective thyroid ultrasound could further evaluate. Electronically authenticated by: GHANSHYAM PRUITT Date: 01/25/2024 00:55 Dictated By: Ghanshyam Pruitt M.D. Signed By: 01/25/2457 DD/ TD/TT: Air Moving Technician: [place] [address] CT Scan Report Signed Patient: VIRGEN GONZALES MR#: [id number] : 1955 Acct:[id number] Age/Sex: 68 / F ADM Date: 01/24/24 Loc: ER Attending Dr: Ordering Physician: Cira Kimball Date of Service: 01/24/24 Procedure(s): CT ang io chest Accession Number(s): [id number] cc: AGGIE DAVIS [address] [address] Patient Name: VIRGEN GONZALES MRN: [id number] date: 1955 Sex: F Assigned Patient Location: ER Current Patient Loca tion: ER Accession/Order Numb er: [id number] Exam Date: 01/24/2024 23:30 Report Date: 01/25/2024 00:55 At the request of: CIRA KIMBALL Procedure: CT angio chest EXAM: CT angio chest HISTORY: elevated d-dimer COMPARISON: Chest x- ray, 01/16/2024. TECHNIQUE: IV contra st enhanced CTA imaging the chest was performed with 100 mL of Visipaque 270 intravenous contrast. MIP and MPR images are provided with 3-D reconstructions. Dos e reduction techniques were achieved by using automated exposure control and /or adjustment of mA and/or kV according to patient size and/or use of iterat arina reconstruction technique. FINDINGS: There is g ood enhancement of the pulmonary arteries. There is no acute pulmonary embo lism. The heart is mildly enlarged. There is no coronary arterial calcificati on or pericardial effusion. Pulsation artifact degrades ascending aorta. Minimal atherosclerotic calcifications are n oted. The thoracic aorta and arch vessels are otherwise unremarkable. There is no dissection or aneurysm. Nonspecific hypodens e thyroid lobe lesions measure up to 1.3 cm on the left on image 7, suboptimall y evaluated due to streak artifact related to body habitus. The esophagus appear s unremarkable. No thoracic adenopathy is seen. Nonspecific patchy ground-glass opacities are seen in both lungs. A nonspecific somewhat nodular opa [place] in the lateral left upper lobe measuring 8 mm on image 42 of series 4. No consolidation, pleural effusion or pneumothorax is seen. There is a 1.8 cm sp lenic cyst. The upper abdomen is otherwise unremarkable. No acute osseous abnormality or suspicious bony lesion is seen. C T/CT angio chest IMPRESSION: 1. No acute pulmonar y embolism or aortic dissection. 2. Mild patchy ground-glass opacities in both lungs, nonspecific. These are nonspecific and can be seen in numerous disease processes, including, but not limited to hypoventilation interspersed with air trapping, hypersensitivity pneumonitis, infecti ous pneumonitis, respiratory bronchiolitis, nonspecific interstitial pneumon ia, drug toxicity, pulmonary edema and ARDS. No other potential acute find ings are seen in the chest. 3. Nonspecific hypod ense thyroid lobe lesions. Elective thyroid ultrasound could further evaluate. Electronically authenticated by: GHANSHYAM PRUITT Date: 01/25/2024 00:55 Dictated By: Ghanshyam Pruitt M.D. Signed By: 01/25/2457 DD/ TD/TT: Air Moving Technician: XR chest 1V Reviewed date:01/27/2024 01:01:08 PM Interpretation: Performing Lab: Notes/Report: Source Facility: [place] [address] XRay Report Signed Patient: VIRGEN GONZALES MR#: [id number] : 1955 Acct:[id number] Age/Sex: 68 / F ADM Date: 01/24/24 Loc: ER Attending Dr: Ordering Physician: Cira Kimball Date of Service: 01/24/24 Procedure(s): XR chest 1V Accession Number(s): [id number] cc: AGGIE DAVIS ; Cira Kimball [place] [address] Patient Name: VIRGEN GONZALES MRN: [id number] date: 1955 Sex: F Assigned Patient Location: ER Current Patient Location: ER Accession/Order Number: [id number] Exam Date: 01/24/2024 22:10 Report Date: 01/24/2024 22:56 At the request of: CIRA KIMBALL Procedure: XR chest 1V EXAM: XR chest 1V HISTORY: cough . Dyspnea. History of recent pneumonia. COMPARISON: Chest x-ray, 09/08/2018. TECHNIQUE: AP upright portable chest x-ray. FINDINGS: The heart, mediastinum and pulmonary vascularity are within normal limits. Mild asymmetric opacity at the right lung base is likely due to current mild patient rotation to the left. Underlying mild infiltrate cannot be excluded on the single frontal view provided. The lungs and pleural spaces are otherwise clear. The bony thorax is intact. XR/XR chest 1V IMPRESSION: Mild nonspecific asymmetric opacity at the right lung base, suboptimally evaluated on the single frontal view provided. This may be due to patient rotation or mild infiltrate. The lungs are otherwise clear. Electronically authenticated by: GHANSHYAM PRUITT Date: 01/24/2024 22:56 Dictated By: Ghanshyam Pruitt M.D. Signed By: 01/24/242257 DD/ 55 TD/TT: Air Moving Technician: [address] [address] XRay Report Signed Patient: VIRGEN GONZALES MR#: [id number] : 1955 Acct:[id number] Age/Sex: 68 / F ADM Date: 01/24/24 Loc: ER Attending Dr: Ordering Physician: Cira Kimball Date of Service: 01/24/24 Procedure(s): XR chest 1V Accession Number(s): [id number] cc: AGGIE DAVIS ; Cira Kimball [place] [id number] Patient Name: VIRGEN GONZALES MRN: [id number] date: 1955 Sex: F Assigned Patient Location: ER Current Patient Loca tion: ER Accession/Order Numb er: [id number] Exam Date: 01/24/2024 22:10 Report Date: 01/24/2024 22:56 At the request of: CIRA KIMBALL Procedure: XR chest 1V EXAM: XR chest 1V HISTORY: cough . Dys pnea. History of recent pneumonia. COMPARISON: Chest x- ray, 09/08/2018. TECHNIQUE: AP uprigh t portable chest x-ray. FINDINGS: The heart, mediastinum and pulmonary vascularity are within normal limits. Mild asymmetric opac ity at the right lung base is likely due to current mild patient rotation to the left. Underlying mild infiltrate cannot be excluded on the single frontal v iew provided. The lungs and pleural spaces are otherwise clear. The bony thorax is intact. X R/XR chest 1V IMPRESSION: Mild nonspecific asymmetric opacity at the right lung base, suboptimally evaluated on the sin gle frontal view provided. This may be due to patient rotation or mild infiltrate. The lungs are otherwise clear. Electronically authenticated by: GHANSHYAM PRUITT Date: 01/24/2024 22:56 Dictated By: Ghanshyam Pruitt M.D. 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 Signed By: 01/25/24 0744 DD/ 24 TD/TT: Air Moving Technician: Troponin I High Sensitivity Reviewed date:01/27/2024 01:01:08 PM Interpretation: Performing Lab: Notes/Report: [facility] , Troponin I High Sensitivity 43.9 4.0-51.3 pg/mL CUT-OFF POINTS HAVE BEEN ESTABLISHED BASED ON THE FOURTH UNIVERSAL DEFINITION OF MYOCARDIAL INFARCTION. THE UPPER REFERENCE LIMIT (URL) OF TROPONIN, DEFINED THE 99TH PERCENTILE OF cTnI DISTRIBUTION IN A REFERENCE POPULATION, HAS BEEN CONFIRMED THE DECISION THRESHOLD FOR [place] DIAGNOSIS. 99TH PERCENTILE = 51.4 PG/ML NOTE: HIGH-SENSITIVITY TROPONIN ASSAY IS NOT INTENDED TO BE USED IN ISOLATION BUT SHOULD BE INTERPRETED IN CONJUNCTION WITH OTHER DIAGNOSTIC AND CLINICAL INFORMATION. Performing Lab: see note ML - [facility] LB PROF CHEM 8 (BAS METB) Reviewed date:01/27/2024 01:01:08 PM Interpretation: Performing Lab: Notes/Report: [facility] , Sodium 140 136-145 mmol/L Potassium 3.7 3.5-5.1 mmol/L Chloride 104 98-107 mmol/L Carbon Dioxide 27.7 21.0-32.0 mmol/L Anion Gap 12.0 Glucose 109 74-106 mg/dL Blood Urea Nitrogen 24.0 7.0-18.0 mg/dL Creatinine 1.79 0.55-1.02 mg/dL Estimated GFR ( Vanda 34 >=60 Estimated GFR (Non- Laura 28 >=60 BUN Creatinine Ratio 13.4 Calcium 8.7 8.5-10.1 mg/dL Performing Lab: see note ML - [facility] LB D-DIMER Reviewed date:01/27/2024 01:01:08 PM Interpretation: Performing Lab: Notes/Report: [facility] , D Dimer 2.13 <=0.59 mg/L FEU RESULTS CALLED TO Dr. Kimball @BY Calli Mcghee, MEMORY CARE PROGRAM RESIDENT at 2302 Increases in D-Dimer concentration observed with thromboembolic events can be variable due to localization, size, and age of the thrombus. Therefore, a thromboembolic event cannot be diagnosed with certainty on the basis of the reference range. D-Dimers may also be elevated for a variety of disorders including advanced age, , coronary disease, cancer, liver disease, infection, inflammation, hematoma, DIC, trauma, post-surgery, diabetes, thrombolytic or anticoagulant therapy, stress, and generalized hospitalization. Performing Lab: see note - [facility] LB XR hip LT 2V w/ pelvis Reviewed date:06/30/2024 12:17:25 PM Interpretation: Performing Lab: Notes/Report: Source Facility: [place] [address] [place] [address] XRay Report Signed Patient: VIRGEN GONZALES MR#: [id number] : 1955 Acct:[id number] Age/Sex: 68 / F ADM Date: 06/29/24 Loc: RAD Attending Dr: AGGIE DAVIS Ordering Physician: AGGIE DAVIS Date of Service: 06/29/24 Procedure(s): XR hip LT 2V w/ pelvis Accession Number(s): [id number] cc: AGGIE DAVIS [place] [address] Patient Name: VIRGEN GONZALES MRN: [id number] date: 1955 Sex: F Assigned Patient Location: RAD Current Patient Location: [facility] Accession/Order Number: [id number] Exam Date: 06/29/2024 14:41 Report Date: 06/30/2024 06:58 At the request of: AGGIE DAVIS Procedure: XR hip LT 2V w/ pelvis PROCEDURE: XR hip LT 2V w/ pelvis HISTORY: left hip pain COMPARISON: None. FINDINGS: BONES:Small degenerative osteophytes along superior margin of acetabulum bilaterally. Mild narrowing of the superior joint spaces bilaterally. No fracture, dislocation, bone lesion. SOFT TISSUES:No visible soft tissue swelling. EFFUSION:None visible. OTHER: Degenerative disc disease of lower lumbar spine. XR/XR hip LT 2V w/ pelvis IMPRESSION: 1. No acute bone abnormality. 2. Mild/moderate degenerative changes of the hip joints. Electronically authenticated by: BECKY OWENS Date: 06/30/2024 06:58 Dictated By: Becky Owens M.D. Signed By: 06/30/24700 DD/ 7 TD/TT: Air Moving Technician: [place] [address] XRay Report Signed Patient: VIRGEN GONZALES MR#: [id number] : 1955 Acct:[id number] Age/Sex: 68 / F ADM Date: 06/29/24 Loc: O[facility] Attending Dr: AGGIE DAVIS Ordering Physician: AGGIE DAVIS Date of Service: 06/29/24 Procedure(s): XR hip LT 2V w/ pelvis Accession Number(s): [id number] cc: AGGIE DAVIS [place] [address] Patient Name: VIRGEN GONZALES MRN: [id number] date: 1955 Sex: F Assigned Patient Location: RAD Current Patient Loca tion: RAD Accession/Order Numb er: [id number] Exam Date: 14:41 Report Date: 06/30/2024 06:58 At the request of: AGGIE DAVIS Procedure: XR hip LT 2V w/ pelvis PROCEDURE: XR hip LT 2V w/ pelvis HISTORY: left hip pain COMPARISON: None. FINDINGS: BONES:Small degenera tive osteophytes along superior margin of acetabulum bilaterally. Mild narrowing of the superior joint spaces bilaterally. No fracture, dislocatio n, bone lesion. SOFT TISSUES:No visi ble soft tissue swelling. EFFUSION:None visible. OTHER: Degenerative disc disease of lower lumbar spine. X R/XR hip LT 2V w/ pelvis IMPRESSION: 1. No acute bone abnormality. 2. Mild/moderate degenerative changes of the hip joints. Electronically authenticated by: BECKY OWENS Date: 06/30/2024 06:58 Dictated By: Becky Owens M.D. Signed By: 06/30/24700 DD/ TD/TT: Air Moving Technician: [place]-19, Flu A+B IH Reviewed date:07/17/2024 02:33:39 PM Interpretation: Performing Lab: Notes/Report: COVID - FLU A - FLU B - Control + US THYROID Reviewed date:02/04/2024 04:05:38 PM Interpretation: Performing Lab: Notes/Report: Source Facility: [place] [address] Ultrasound Report Signed Patient: VIRGEN GONZALES MR#: [id number] : 1955 Acct:[id number] Age/Sex: 68 / F ADM Date: 02/04/24 Loc: US Attending Dr: AGGIE DAVIS Ordering Physician: AGGIE DAVIS Date of Service: 02/04/24 Procedure(s): US thyroid Accession Number(s): [id number] cc: AGGIE DAVIS [place] [address] Patient Name: VIRGEN GONZALES MRN: [id number] date: 1955 Sex: F Assigned Patient Location: US Current Patient Location: US Accession/Order Number: [id number] Exam Date: 02/04/2024 09:18 Report Date: 02/04/2024 10:34 At the request of: AGGIE DAVIS Procedure: US thyroid EXAMINATION: US thyroid HISTORY: Thyroid Lesion E07.9 COMPARISON: No relevant comparison available. TECHNIQUE: Sonographic images of the thyroid gland were obtained. FINDINGS: The right thyroid lobe measures 5.2 x 2.1 x 2.2 cm. Heterogeneous echotexture with multiple nodules. The thyroid isthmus measures 3.2 mm, heterogeneous. The left thyroid lobe measures 4.6 x 2.1 x 1.5 cm. Heterogeneous echotexture with multiple nodules. The 2 most suspicious nodules: Nodule 1: Right thyroid lobe. 1.6 x 1.1 x 0.8 cm. solid, hypoechoic, wide, smooth margins, macrocalcifications. TR 4 Nodule 2: Thyroid isthmus. 1.9 x 1.6 x 0.8 cm. Solid, no consultations. TR4 US/US thyroid IMPRESSION: Multinodular thyroid gland TI-RADS: The [employer] TI-RADS committee's white paper recommendations for thyroid lesions classified as TR4 (moderately suspicious) are listed below: > 1.0 cm. Follow-up ultrasound in 1, 2, 3, and 5 years. > 1.5 cm. FNA. J. Am Amy Radiol 2017;14:587-595. Electronically authenticated by: BRIANNA GREEN Date: 02/04/2024 10:34 Dictated By: Brianna Green M.D. Signed By: 02/04/24 1036 DD/ 1034 TD/TT: Air Moving Technician: [place] [address] Ultrasound Report Signed Patient: VIRGEN GONZALES MR#: [id number] : 1955 Acct:[id number] Age/Sex: 68 / F ADM Date: 02/04/24 Loc: US Attending Dr: AGGIE DAVIS Ordering Physician: AGGIE DAVIS Date of Service: 02/04/24 Procedure(s): US thyroid Accession Number(s): [id number] cc: AGGIE DAVIS [address] [address] Patient Name: VIRGEN GONZALES MRN: [id number] date: 1955 Sex: F Assigned Patient Location: US Current Patient Loca tion: US Accession/Order Numb er: [id number] Exam Date: 02/04/2024 09:18 Report Date: 02/04/2024 10:34 At the request of: AGGIE DAVIS Procedure: US thyroid EXAMINATION: US thyroid HISTORY: Thyroid Les ion E07.9 COMPARISON: No relev ant comparison available. TECHNIQUE: Sonograph ic images of the thyroid gland were obtained. FINDINGS: The right thyroid lo be measures 5.2 x 2.1 x 2.2 cm. Heterogeneous echotexture with multiple nodules. The thyroid isthmus measures 3.2 mm, heterogeneous. The left thyroid lob e measures 4.6 x 2.1 x 1.5 cm. Heterogeneous echotexture with multiple nodules. The 2 most suspiciou s nodules: Nodule 1: Right thyr oid lobe. 1.6 x 1.1 x 0.8 cm. solid, hypoechoic, wide, smooth margins, macrocalcifications. TR 4 Nodule 2: Thyroid isthmus. 1.9 x 1.6 x 0.8 cm. Solid, no consultations. TR4 U S/US thyroid IMPRESSION: Multinodular thyroid gland TI-RADS: The [employer] TI-RADS committee's white paper recommendations for thyroid lesions classified as TR4 (moderately suspicious) are listed below: > 1.0 cm. Follow-up ultrasound in 1, 2, 3, and 5 years. > 1.5 cm. FNA. J. Am Amy Radiol 2017;14:587-595. Electronically authenticated by: BRIANNA GREEN Date: 02/04/2024 10:34 Dictated By: Harrison Green M.D. Signed By: 02/04/24 1036 DD/ 1034 TD/TT: Air Moving Technician: PROF Zepeda(COMP METB) Reviewed date:11/01/2024 09:38:41 PM Interpretation: Performing Lab: Notes/Report: [facility] , Sodium 145 136-145 mmol/L Potassium 3.7 3.5-5.1 mmol/L Chloride 116 98-107 mmol/L Carbon Dioxide 18.2 21.0-32.0 mmol/L Anion Gap 14.5 Glucose 82 74-106 mg/dL Blood Urea Nitrogen 32.0 7.0-18.0 mg/dL Creatinine 1.77 0.55-1.02 mg/dL Estimated GFR ( Vanda 34 >=60 mL/min/1.73m 2 Estimated GFR (Non- Laura 28 >=60 mL/min/1.73m 2 BUN Creatinine Ratio 18.1 Calcium 7.5 8.5-10.1 mg/dL Bilirubin Total 0.3 0.2-1.0 mg/dL Aspartate Amino Transferase 13 15-37 U/L Alanine Aminotransferase 11 14-59 U/L Alkaline Phosphatase 92 46-116 U/L Total Protein 5.3 6.4-8.2 g/dL Albumin Level 2.5 3.4-5.0 g/dL Globulin 2.8 Albumin Globulin Ratio 0.9 Performing Lab: see note ML - [facility] [place] Urine Culture - [facility] Reviewed date:11/16/2024 02:22:44 PM Interpretation: Performing Lab: Notes/Report: [facility] , Urine Culture - [facility] See Below For Report Urine Culture - [facility] >100,000 colonies/ml mixed Urine Culture - [facility] bacterial skin contaminants Urine Culture - [facility] >100,000 colonies/ml mixed Urine Culture - [facility] 2 Days Urine Culture - [facility] >100,000 colonies/ml mixed Urine Culture - [facility] Urine Culture - [facility] >100,000 colonies/ml mixed Urine Culture - [facility] Testing performed a [facility] Urine Culture - [facility] >100,000 colonies/ml mixed Urine Culture - [facility] [address], [place] [address] Urine Culture - [facility] >100,000 colonies/ml mixed Performing Lab: see note ML - [facility] LB UA RANDOM Reviewed date:11/16/2024 02:19:15 PM Interpretation: Performing Lab: Notes/Report: [facility] , Color Urine LT. YELLOW YELLOW Clarity Urine SL CLOUDY CLEAR Specific [place] Urine 1.010 1.005-1.025 pH Urine 6.0 5.0-9.0 Protein Urine NEGATIVE NEG/TRACE mg/dL Glucose Urine UA >=1000 NEGATIVE mg/dL Bilirubin Urine NEGATIVE NEGATIVE Ketones Urine NEGATIVE NEGATIVE mg/dL Blood Urine LARGE NEGATIVE Nitrite Urine NEGATIVE NEGATIVE Urobilinogen Urine 0.2 0.2-1.0 EU/dL Leukocyte Esterase Urine TRACE NEGATIVE Performing Lab: see note ML - [facility] [place] GLYCOHEMOGLOBIN A1C Reviewed date:11/16/2024 02:22:23 PM Interpretation: Performing Lab: Notes/Report: [facility] , Glycohemoglobin A1C 6.7 4.5-6.2 % ADA RECOMMENDED LIMIT 4.0 - 6.0 ADA THERAPEUTIC TARGET < 7.0 ACTION SUGGESTED > 7.0 Estimated Average Glucose 146 Performing Lab: see note ML - [facility] LB Reason For Referral Diagnosis 1 Multinodular goiter (E04.2) Referral Organization [facility] Referring Provider First Name Aggie Referring Provider Last Name Sven [facility] Referred Provider Jose Contreras Referred Provider Specialty Ear, nose an d throat surgeon Referral Priority Routine Diagnosis 1 Thyroid nodule (E04. 1) Referral Organization [facility] Referring Provider First Name Aggie Referring Provider Last Name Sven [facility]ne Referred Provider Da Rosas Referred Provider Specialty Otolaryngolo gy Referral Priority Routine Reason hand tremors Diagnosis 1 Tremor (R25.1) Referral Organization [facility] Referring Provider First Name Aggie Referring Provider Last Name Sven [facility]erring [facility] tatyana Referred Provider Payton Goodwin Referred Provider Specialty Neurology Referral Priority Routine Reason hx [place], needs new car diologist Diagnosis 1 History of myocardia l infarction (I25.2) Referral Organization [facility] Referring Provider First Name Aggie Referring Provider Last Name Sven Referring Provider [facility] tatyana Referred Provider Heide Macdonald Referred Provider Specialty Cardiology Referral Priority Routine Diagnosis 1 Kidney mass (N28.89) Referral Organization [facility] Referring Provider First Name Aggie Referring Provider Last Name Sven Referring Provider [facility] tatyana Referred Provider Deny Leigh Referred Provider Specialty Nephrology Referral Priority Routine Reason uncontrolled diabete s Diagnosis 1 Type 2 diabetes tad itus with other diabetic neurological complication (E11.49) Referral Organization [facility] Referring Provider First Name Aggie Referring Provider Last Name Sven [facility] Referred Provider Mathieu Naqvi Referred Provider Specialty Endocrinolog y Referral Priority Routine Diagnosis 1 Non-healing wound of lower extremity (S81.809A) Referral Organization [facility] Referring Provider First Name Aggie Referring Provider Last Name Sven [facility]ana Referred Provider [facility] Wound Car e Referred Provider Specialty Wound Care Referral Priority Routine Diagnosis 1 Kidney mass (N28.89) Referral Organization [facility] Referring Provider First Name Kyle Referring Provider Last Name Bárbara [facility] Referred Provider Kang Alvarez Referred Provider Specialty Urology Referral Priority Routine Reason Stage 4 CKD Diagnosis 1 Stage 4 chronic kidn ey disease (N18.4) Referral Organization [facility] Referring Provider First Name Aggie Referring Provider Last Name Sven Referring Provider [facility] tatyana Referred Provider Deny Leigh Referred Provider Specialty Nephrology Referral Priority Routine Reason requesting dry needl ing Diagnosis 1 Type 2 diabetes tad itus with other diabetic neurological complication (E11.49) Referral Organization [facility] Referring Provider First Name Aggie Referring Provider Last Name Sven [facility]erred Provider [facility] Physical Therap y Referred Provider Specialty Physical The rapist Referral Priority Routine Medications Medication SIG (Take, Route, Frequency, Duration) Notes Start Date End Date Status Pregabalin 75 MG TAKE 1 CAPSULE TWICE DAILY for 30 12/14/2024 Active hydroCHLOROthiazide 25 MG TAKE 1 TABLET EVERY MORNING for 90 Active Meclizine HCl 25 MG 1 tablet as needed Orally every 12 hrs for 30 days PRN Active Jardiance 25 MG TAKE 1 TABLET EVERY DAY Orally Once a day for 90 days Active True Metrix Blood Glucose Test - TEST BLOOD SUGAR THREE TIMES DAILY for 90 Active Cipro 500 MG 1 tablet Orally every 12 hrs for 10 days 06/05/2024 Active Mupirocin 2 % 1 application Externally Twice a day for 5 days Active True Metrix Air Glucose Meter w/Device USE DIRECTED for 90 Active TRUEplus Lancets 33G - TEST BLOOD SUGAR THREE TIMES DAILY for 90 Active True Metrix Level 1 Low USE DIRECTED WITH GLUCOSE METER for 90 Active Fluconazole 150 MG 1 tablet Orally once for 1 days 12/04/2024 Active Furosemide 20 MG TAKE 1 TABLET ONE TIME DAILY NEEDED for 30 days Active Potassium Chloride Dipti ER 10 MEQ 1 tablet with food Orally Twice a day as needed with Lasix for 30 days 12/04/2024 Active Omeprazole 40 MG TAKE 1 CAPSULE ONE TIME DAILY 30 MINUTES BEFORE MORNING MEAL. for Active NovoLIN R FlexPen 100 UNIT/ML sliding scale Injection TID Active Pen [place] Active Ozempic (0.25 or 0.5 MG/DOSE) 2 MG/3ML 0.5mg Subcutaneous weekly for 28 days call for next dose 07/31/2024 Active ReliOn Insulin Syringe 31G X 0.3 ML USE 1 ONCE DAILY DIRECTED for 30 Active Simvastatin 40 MG TAKE 1 TABLET EVERY NIGHT for 90 Active Albuterol Sulfate HFA 108 (90 Base) MCG/ACT 2 puff as needed Inhalation every 4 hrs for 30 days 12/11/2023 Active Advil Cold/Sinus 30-200 MG 1 tablet as n eeded Orally every 6 hrs PRN Active Aspirin 81 81 MG 1 tablet Orally Once a day Active [place] & Syringes - as directed Active Cyclobenzaprine HCl 5 MG 1 tablet Orally BID prn for 10 days 11/06/2024 Active Alendronate Sodium 70 MG TAKE 1 TABLET E VERY WEEK for 84 Active NovoLIN N 100 UNIT/ML 27 units Subcutaneous bid Active Nitroglycerin 0.4 MG as directed Sublingual PRN Active busPIRone HCl 7.5 MG TAKE 1 TABLET TWICE DAILY for 90 Active Dexcom G7 [employer] A ctive FLUoxetine HCl 20 MG TAKE 1 CAPSULE EVERY DAY for 90 Active Dexcom G7 Sensor Act arina Immunizations Vaccine Route Administration Date Status Comme nts Flu, Fluad (87161) 65 yrs and older, single-dose syringe IM Intramuscular 05/14/2024 Administered Social History Tobacco Use: Social History Observation [...] in quitting? Not ready to heron t Alcohol Screen (Audit-C) Question Answer Notes Did you have a drink containing alcohol in the p ast year? No Points 0 Interpretation Negative AUDIT-C (Standard) Question Answer Notes Did you [...] Never (0 point) Points 0 Interpretation Negative Problems Problem Type SNOMED Code ICD Code Onset Dates Problem Status W/U Status Risk Notes Problem 12719524 Anxiety disorder, unspecified (F41.9) Active confirmed Problem Hidradenitis suppurativa (90457375) Hidradenitis suppurativa (L73.2) Active confirmed Problem Pain of right shoulder region (finding) (0298799368) Pain in right shoulder (M25.511) Active confirmed Problem Pain in left leg (313068350) Pain in left leg (M79.605) Active confirmed Problem Pain in limb (52512122) Pain in right lower leg (M79.661) Active confirmed Problem Disorder of bone (50480452) Disorder of bone, unspecified (M89.9) Active confirmed Problem Chest pain (21880818) Other chest pain (R07.89) Active confirmed Problem Fatigue (84953299) Fatigue (R53.83) Active conf irmed Problem Hypertension (66124138) Hypertension (I10) Active confirmed Problem Cigarette smoker (81349274) Cigarette smoker (F17.210) Active confirmed Problem Gastroesophageal reflux disease (966503586) GERD (gastroesophagea l reflux disease) (K21.9) Active confirmed Problem Coronary artery disease (58327537) CAD (coronary artery disease) (I25.10) Active confirmed Problem Hypertension (06895656) HTN (hypertension) (I10) Active confirmed Problem Neck pain (29632907) Neck pain (M54.2) Active confirmed Problem Depression (826609509) Depression (F32.9) Active confirmed Problem Peripheral neuropathy (814477548) Peripheral neuropathy (G62.9) Active confirmed Problem Obstructive sleep apnea syndrome (22622192) NATALEE (obstructive sleep apnea) (G47.33) Active confirmed Problem Insomnia (151095229) Insomnia (G47.00) Active confirmed Problem Bilateral lower extremity edema (255979545) Bilateral lower extremity edema (R60.0) Active confirmed Problem Dizziness (070436318) Dizziness (R42) Active confirmed Problem Glaucoma (94868773) Glaucoma (H40.9) Active con firmed Problem Thyroid nodule (180463113) Thyroid nodule (E04.1) Active confirmed Problem Allergic rhinitis (62537098) Allergic rhinitis (J30.9) Active confirmed Problem Hearing loss (11173242) Hearing loss (H91.90) Active confirmed Problem Osteoporosis (60910499) Osteoporosis (M81.0) Active confirmed Problem Pain in left leg (822795660) Left leg pain (M79.605) Active confirmed Problem Neurologic disorder associated with type II diabetes mellitus (382156218) Type 2 diabetes mellitus with other diabetic neurological complication (E11.49) Active confirmed Problem Multinodular goiter (773613620) Multinodular goiter (E04.2) Active confirmed Problem Diabetic retinopathy (0493544) Diabetic retinopathy (E11.319) Active confirmed Problem Dog bite (849866904) Dog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
--- OUTSIDE RECORDS SUMMARY | 2024-12-22 12:15 | XMS_ITS | Clinical Summary ---
Author Organization [facility] Address [address] [place] [address] Care Team Providers Care Fur Joiner Name Role Phone Aggie Machuca CNP Primary Care Provider [phone] Allergies Active Allergy Reactions Criticality Noted Date Comments Codeine Rash,Unknown Low 07/13/2021 Other Reaction(s): Nausea Propoxyphene N-Acetaminophen Other 08/20/2024 Hydrocodone-Acetaminophe n Unknown Medium 07/30/2014 Other Reaction(s): Unknown Metformin Diarrhea 08/20/2024 Penicillins Unknown Medium 07/30/2014 Other Reaction(s): Difficulty breathing at rest, hives, hives, Unknown Oxycodone-Acetaminophen Other 08/20/2024 Propoxyphene Itching,Unknown Medium 11/30/2016 Medications Medication Sig Dispensed Refills Start Date End Date Status alendronate (Fosamax) 70 mg tablet Take 70 mg by mouth every 7 (seven) days. Active simvastatin (Zocor) 40 mg tablet Take 40 mg by mouth at bedtime. Active hydroCHLOROthiazide (HYDRODiuril) 25 mg tablet Take 25 mg by mouth in the morning. Active aspirin 81 mg chewable tablet Chew 81 mg in the morning. Active FLUoxetine (PROzac) 20 mg capsule Take 20 mg by mouth in the morning. Active pregabalin (Lyrica) 75 mg capsule Take 75 mg by mouth two times daily. 04/08/2023 Active esomeprazole (NexIUM) [address] capsule Take 20 mg by mouth before breakfast. Active Jardiance 25 mg Take 25 mg by mouth in the morning. Active busPIRone (Buspar) 7.5 mg tablet Take 7.5 mg by mouth two times daily. 04/23/2023 Active Lasix 20 mg tablet Take 20 mg by mouth if needed. Active fluticasone (Flovent HFA) 110 mcg/actuation inhaler every 12 (twelve) hours. Active insulin regular (HumuLIN R,NovoLIN R) 100 unit/mL injection vial Inject 8 Units under the skin. 08/18/2024 02/14/2025 Active lisinopril 10 mg tablet Take 10 mg by mouth in the morning. Active Ozempic 0.25 mg or 0.5 mg (2 mg/3 mL) pen injector Inject 0.5 mg under the skin once a week. 08/18/2024 Active Active Problems Problem Noted Date Diagnosed Date Arthritis 08/03/2024 Back pain 08/03/2024 Benign essential hypertension 08/03/2024 Diabetes mellitus 08/03/2024 Dyslipidemia 08/03/2024 HTN (hypertension) 08/03/2024 Idiopathic peripheral neuropathy 08/03/2024 Kidney stone 08/03/2024 Myocardial infarct 08/03/2024 Pneumonia 08/03/2024 Pure hypercholesterolemia 08/03/2024 Stroke 08/03/2024 Tobacco abuse 08/03/2024 Right leg pain 11/30/2016 Work related injury 11/30/2016 Family History Medical History Relation Name Comments Heart failure Father Heart failure Mother Heart failure Paternal Grandmother Relation Name Status Comments Father Mother Paternal Grandmother Social History Tobacco Use Types Packs/Day Years Used Date Smoking Tobacco: Every Day Cigarettes Smokeless Tobacco: Never Tobacco Cessation:Ready to Q uit: Not Asked; Counseling Given: Not Answered Alcohol Use Standard Drinks/Week Comments Not Currently 0 (1 standard drink = 0.6 oz pur e alcohol) [place] Safety & Environment Answer Date Rec orded Fear of Current or Ex-Partner Not on file Emotionally Abused Not on file 09/19/2023 Physically Abused Not on file 09/19/2023 Sexually Abused Not on file 09/19/2023 Physically or Sexually Abused Not on file Sex and Gender Information Value Date Recorded Sex Assigned at Not on file Gender Identity Not on file Sexual Orientation Not on file Last Filed Vital Signs Vital Sign Reading Time Taken Comments Blood Pressure 107/73 08/20/2024 2:49 PM EST Pulse 76 08/20/2024 2:49 PM EST Temperature - - Respiratory Rate - - Oxygen Saturation 95% 08/20/2024 2:49 PM EST Inhaled Oxygen Concentration - - Weight 93.4 kg (206 lb) 08/20/2024 2:49 PM EST Height 152.4 cm (5') 08/20/2024 2:49 PM EST Body Mass Index 40.23 08/20/2024 2:49 PM EST Plan of Treatment Upcoming Encounters Date Type Department Care Team (Late st Contact Info) Description 01/28/2025 1:30 PM EDT Office Visit [facility] [address] [place] [address] Ponce Silvestre MD [address] [facility] [place] [address] Health Maintenance Due Date Last Done Comments CT Colonography 1954 Colonoscopy 1954 Colorectal Cancer Screening 1954 Diabetes: Hemoglobin A1C 1954 FIT-DNA 1954 FIT 1954 FOBT 1954 Medicare Annual Wellness (AWV) 1954 Sigmoidoscopy 1954 Diabetes: Retinopathy Screening 1964 Depression Screening 1966 Diabetes: Urine Protein Screening 1973 Mammogram 1994 Fall Risk Screening 2019 Pneumococcal Vaccine: 65+ Years (3 of 3 - PPSV23 or PCV20) 07/29/2023 06/01/2020, 07/29/2018 COVID-19 Vaccine ( season) 2024 12/19/2020, 11/22/2020, 11/14/2020 Influenza Vaccine (Season Ended) 2025 06/30/2023, 10/30/2022, 05/31/2022, Additional history exists Adult Tetanus 04/18/2028 04/18/2018 Zoster Vaccines Completed 06/11/2024, 12/27/2023 HIB Vaccines Aged Out No longer eligi ble based on patient's age to complete this topic HPV Vaccines Aged Out No longer eligi ble based on patient's age to complete this topic IPV Vaccines Aged Out No longer eligi ble based on patient's age to complete this topic Meningococcal B Vaccine Aged Out No l onger eligible based on patient's age to complete this topic Meningococcal Vaccine Aged Out No sarah aisha eligible based on patient's age to complete this topic Rotavirus Vaccines Aged Out No longer eligible based on patient's age to complete this topic Care Teams Fur Joiner Relationship Specialty Start Date End Date Aggie Machuca CNP [facility] [facility], [place] [address] PCP - General Family Medicine 07/17/24
--- OUTSIDE RECORDS SUMMARY | 2024-12-22 12:15 | XMS_ITS | Encounter Summary ---
Author Organization [facility] Address [address] [place] [address] Care Team Providers Care Dance Artist Name Role Phone Kory Gallagher DO Primary Care Provider Source Comments In the event this information is protected by the Federal Confidentiality of Alcohol and Drug AbusePatient Records regulations: The Federal rules restrict any use of the information to criminally investigate or prosecute any alcohol or drug abuse patient.[facility] Encounter Details Date Type Department Care Team (Latest Contact Info) Description 02/27/2024 H&P External-NonCCF Provider, External, PA-C Do not enter address information under generic External Provider. 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 Answer Date of Assessment Author Yes 08/06/2014 9:26 AM EST Calli East Ma * Are you blind or do you have serious difficulty seeing, even when wearing glasses? Answer Date of Assessment Author No 08/06/2014 9:26 AM Calli De La Cruz Ma * Do you have serious difficulty walking or climbing stairs? Answer Date of Assessment Author Yes 08/06/2014 9:26 AM Calli De La Cruz Ma * Do you have difficulty dressing or bathing? Answer Date of Assessment Author No 08/06/2014 9:26 AM Calli De La Cruz Ma * Because of a physical, mental, or emotional condition, do you have difficulty doing errands alone such as visiting a doctor's office or shopping? Answer Date of Assessment Author No 08/06/2014 9:26 AM Calli De La Cruz Ma documented as of this encounter Mental Status * Because of a physical, mental, or emotional condition, do you have serious difficulty concentrating, remembering, or making decisions? Answer Entry Date Author Yes 08/06/2014 9:26 AM Calli De La Cruz Ma documented in this encounter Plan of Treatment Not on file documented as of this encounter Visit Diagnoses Not on filedocumented in this encounter Care Teams Dance Artist Relationship Specialty Start Date End Date Kory Gallagher DO PCP - General Family Medicine 07/30/14 documented as of this encounter
--- OUTSIDE RECORDS SUMMARY | 2024-12-22 12:15 | XMS_ITS | Encounter Summary ---
Author Organization [facility] Address [address] [place] [address] Care Team Providers Care Electronics Tech Name Role Phone Aggie Machuca MD Unavailable [phone] Carter Granger MD Primary Care Provider [phone] Da Rosas DO Unavailable [phone] Morales De La Rosa DO Unavailable [phone] Encounter Details Date Type Department Care Team (Late st Contact Info) Description 12/08/2024 Telephone [facility] [address] [place] [address] Loly Alcala RN [address] [place], [place] Social History Tobacco Use Types Packs/Day [...] on file documented as of this encounter Miscellaneous Notes * Telephone Encounter - Loly Alcala RN - 12/08/2024 1:16 PM EDT Left message for patient that is can be observation after Sx which will keep her over night documented in this encounter Plan of Treatment Upcoming Encounters Date Type Department Care Team (Late st Contact Info) Description 01/04/2025 1:15 PM EDT Office Visit [facility] [place] [address] [facility] [address] [place] [address] Morales De La Rosa, DO [address] [place] [address] 01/05/2025 9:15 AM EDT Office Visit [facility] [address] [place] [address] Brice Oliva, DO [address] [place], [place] [phone] 01/14/2025 12:00 PM EDT Office Visit [facility]ad[facility] [facility] [address] [place] [address] Payton Goodwin, DO [address] [place] [address] 03/15/2025 11:20 AM EDT Office Visit [facility] [address] [place] [phone] Mathieu Naqvi MD [address] [place], [place] [phone] 05/17/2025 10:15 AM EDT Office Visit [facility] [place] [address] [address] Da Rosas, DO [address] [place] [address] documented as of this encounter Visit Diagnoses Not on filedocumented in this encounter Care Teams Electronics Tech Relationship Specialty Start Date End Date Carter Granger MD [address] [place] [address] PCP - General Family Medicine 04/10/24 Aggie Machuca MD [address] [place] [address] Referring Physician Family Medicine 04/10/24 Da Rosas DO [address] [place] [address] Otolaryngology 04/10/24 Morales De La Rosa DO [address] [place] [address] Referring Physician Neurology 08/20/24 documented as of this encounter
--- OUTSIDE RECORDS SUMMARY | 2024-12-22 12:15 | XMS_ITS | Encounter Summary ---
Author Organization [facility] Address [address] [facility] [place] [address] Care Team Providers Care Commander Police Reserves Name Role Phone Unallocated, Noms Provider Primary Care Provi neris Aggie Machuca MD Unavailable [phone] Carter Granger MD Primary Care Provider [phone] Da Rosas DO Unavailable Morales De La Rosa DO Unavailable Encounter Details Date Type Department Care Team (Late st Contact Info) Description 03/04/2024 Orders Only [facility] [address] [place] [address] Aggie Machuca MD [address] [place] [address] Social History Tobacco Use Types Packs/Day Years [...] PM EDT Office Visit [facility] [place] [address] [facility] [address] [place] [address] Morales De La Rosa, DO [address] [place] [address] 01/05/2025 9:15 AM EDT Office Visit [facility] [address] [place] [address] Brice Oliva, DO [address] [place] [address] [place], [place] [address] 01/14/2025 12:00 PM EDT Office Visit [facility] [place] [address] [facility] [address] [place] [address] Payton Goodwin, DO [address] [place], [place] [id number] 03/15/2025 11:20 AM EDT Office Visit [facility] [address] [place] [address] Mathieu Naqvi MD [address] [place] [phone] 05/17/2025 10:15 AM EDT Office Visit [facility] [place] [address] [place] [address] Da Rosas, DO [address] [address] documented as of this encounter Procedures Procedure Name Priority Date/Time Associated Diagnosis Comments GENERAL PATHOLOGY Routine 03/02/2024 10:19 AM EDT documented in this encounter Results * GENERAL PATHOLOGY (03/02/2024 10:19 AM EDT) us Aggie Machuca MD [facility] Final Result documented in this encounter Visit Diagnoses Not on filedocumented in this encounter Care Teams Commander Police Reserves Relationship Specialty Start Date End Date Unallocated, Noms Provider, [address] [place] [address] PCP - General 12/18/22 04/09/24 Carter Granger MD [address] [place] [phone] PCP - General Family Medicine 04/10/24 Aggie Machuca MD [address] [place] [address] [phone] Referring Physician Family Medicine 04/10/24 Da Rosas DO [address] [place] [address] Otolaryngology 04/10/24 Morales De La Rosa DO [address] [place] [phone] Referring Physician Neurology 08/20/24 documented as of this encounter
--- OUTSIDE RECORDS SUMMARY | 2024-12-22 12:15 | XMS_ITS | Encounter Summary ---
Author Organization [facility] Address [address] [place] [address] Care Team Providers Care Brace End Mainspring Former Name Role Phone Unallocated, Noms Provider Primary Care Provi neris Aggie Machuca MD Unavailable [phone] Carter Granger MD Primary Care Provider Da Rosas DO Unavailable [phone] Morales De La Rosa DO Unavailable [phone] Encounter Details Date Type Department Care Team (Late st Contact Info) Description 07/01/2023 Abstract [facility] [address] [place] [place] [address] Loly Alcala RN [address] [place] Social History Tobacco Use Types Packs/Day [...] PM EDT Office Visit [facility] [place] [address] [facility] [address] [place] [address] Morales De La Rosa, DO [address] [place] [address] 01/05/2025 9:15 AM EDT Office Visit [facility] [address] [place] [address] Brice Oliva, DO [address] [place] [address] 01/14/2025 12:00 PM EDT Office Visit [facility] [place] [address] [facility] [address] [place] [address] Payton Goodwin, DO [address] [place], [place] [phone] 03/15/2025 11:20 AM EDT Office Visit [facility] [address] [place] [address] Mathieu Naqvi MD [address] [place] [address] 05/17/2025 10:15 AM EDT Office Visit [facility] [place] [address] [place] [address] Da Rosas, DO [address] [place] [address] documented as of this encounter Visit Diagnoses Not on filedocumented in this encounter Care Teams Brace End Mainspring Former Relationship Specialty Start Date End Date Unallocated, Noms MD Too [address] [place] [address] PCP - General 12/18/22 04/09/24 Carter Granger MD [address] [place] [address] PCP - General Family Medicine 04/10/24 Aggie Machuca MD [address] [place] [address] Referring Physician Family Medicine 04/10/24 Da Rosas DO [address] [place] [address] Otolaryngology 04/10/24 Morales De La Rosa DO [address] [place] [address] Referring Physician Neurology 08/20/24 documented as of this encounter
--- OUTSIDE RECORDS SUMMARY | 2024-12-22 12:15 | XMS_ITS | Encounter Summary ---
Author Organization [facility] Address [address] [place] [address] Care Team Providers Care Press Operator Name Role Phone Unallocated, Noms Provider Primary Care Provi neris Aggie Machuca MD Unavailable [phone] Carter Granger MD Primary Care Provider Da Rosas DO Unavailable Morales De La Rosa DO Unavailable [phone] Encounter Details Date Type Department Care Team (Late st Contact Info) Description 05/31/2023 Abstract [facility] [address] [place] [place] [address] Loly Alcala RN [address] [place], [place] Social History Tobacco Use Types Packs/Day [...] PM EDT Office Visit [facility] [place] [address] [facility] [address] [place] [address] Morales De La Rosa, DO [address] [place] [address] 01/05/2025 9:15 AM EDT Office Visit [facility] [address] [place] [address] Brice Oliva, DO [address] [place] [address] 01/14/2025 12:00 PM EDT Office Visit [facility] [place] [address] [facility] [address] [place] [address] Payton Goodwin, DO [address] [place], [place] [phone] 03/15/2025 11:20 AM EDT Office Visit [facility] [address] [place] [address] Mathieu Naqvi MD [address] [place] [address] 05/17/2025 10:15 AM EDT Office Visit [facility] [place] [address] [place] [address] Da Rosas, DO [address] [place] [address] documented as of this encounter Visit Diagnoses Not on filedocumented in this encounter Care Teams Press Operator Relationship Specialty Start Date End Date Unallocated, Noms MD Too [address] [place] [address] PCP - General 12/18/22 04/09/24 Carter Granger MD [address] [place] [address] PCP - General Family Medicine 04/10/24 Aggie Machuca MD [address] [place] [address] Referring Physician Family Medicine 04/10/24 Da Rosas DO [address] [place] [address] Otolaryngology 04/10/24 Morales De La Rosa DO [address] [place] [address] Referring Physician Neurology 08/20/24 documented as of this encounter
--- OUTSIDE RECORDS SUMMARY | 2024-12-22 12:15 | XMS_ITS | Referral Summary ---
Author Organization [facility] Address [address] [place] [address] Care Team Providers Care Electrician Yard Name Role Phone Aggie Machuca CNP Primary Care Provider [phone] Allergies Active Allergy Reactions Criticality Noted Date [...] leg pain 11/30/2016 Work related injury 11/30/2016 Social History Tobacco Use Types Packs/Day Years [...] Description 01/28/2025 1:30 PM EDT Office Visit [facility] [address] [place] [address] Ponce Silvestre MD [address] [facility] [place] [address] Care Teams Electrician Yard Relationship Specialty Start Date End Date Aggie Machuca CNP [facility], [place] [address] PCP - General Family Medicine 07/17/24
--- OUTSIDE RECORDS SUMMARY | 2024-12-22 12:15 | XMS_ITS | Patient Health Record ---
Author Organization [facility] es Address [address] [place] [address] Care Team Providers Care Chiropractic Neurologist Name Role Phone Dr. Mikal Barton Primary Care Provider [phone] Allergies Allergen (clinical drug ingredient) Drug/Non Drug Allergy documented on EMR Reaction Allergy Type Onset Date Status Zomax (uncoded) Unknown Allergy Acti ve Darvon 65 mg # 30 Unknown Drug Allergy Active Sulfa Unknown Drug Allergy Active PCN Unknown Drug Allergy Active codeine Codeine Unknown Drug Allergy Active Reason For Referral No Information Medications Medication SIG (Take, Route, Fr equency, Duration) Notes Start Date End Date Status Pravachol 40 mg 1 tablet Orally Once a day for 30 day(s) 06/20/2010 Active Tagamet HB 200 MG 1 tablet Orally PRN for 30 day(s) Active Glucophage 1000 mg as directed Orally B ID for 30 days Active Lisinopril 20 mg 1 tablet Orally Once a day for 30 day(s) Active Multivitamins as directed Orally 07/29/19001900 Active Omeprazole 40 MG 1 capsule Orally Onc e a day for 30 day(s) Active Aspir-81 81 MG 1 tablet Orally Once a day for 30 day(s) Active Problems Problem Type SNOMED Code ICD Code Onset Dates Problem Status W/U Status Risk Notes Problem 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) Diabetes with unspecified complication, type II or unspecified type, not stated as uncontrolled (250.90) Active confirmed Problem Pure hypercholesterolemia (217186647) Pure hypercholesterolemia (272.0) Active confirmed Problem Idiopathic periphera l neuropathy (34792851) Other specified idiopathic peripheral neuropathy (356.8) Active confirmed Problem Benign essential hypertension (9936121) Essential hypertension, benign (401.1) Active confirmed Plan Of Treatment No Information Insurance Providers Payer Name Payer Address Payer Phone Subscriber Number Group Number Insured Name Patient Relationship to Insured Coverage Start Date Coverage End Date [employer] [facility] [employer] [place] [address] [address] [place] [address] [id number] IDRIS MINER Self - patient is the insured 3 Medical (General) History Medical History History ICD Code HTN [place] x2 concussion 2000 migraines depression DM Surgical History Surgery Date(Month/Year) T&A age 17 hysterectomy d/t uterine Ca 1997 cholecystectomy 2004
--- OUTSIDE RECORDS SUMMARY | 2024-12-22 12:15 | XMS_ITS | Encounter Summary ---
Author Organization [facility] Address [address] [place] [address] Care Team Providers Care Batch Tester Name Role Phone Aggie Machuca MD Unavailable [phone] Carter Granger MD Primary Care Provider [phone] Da Rosas DO Unavailable Morales De La Rosa DO Unavailable Encounter Details Date Type Department Care Team (Late st Contact Info) Description 09/15/2024 Orders Only [facility] [place] [address] [place] [address] Morales De La Rosa DO [address] [place] [phone] Social History Tobacco Use Types Packs/Day Years [...] PM EDT Office Visit [facility] [place] [address] [facility] [address] [place] [address] Morales DeL a Rosa, DO [address] [place] [address] 01/05/2025 9:15 AM EDT Office Visit [facility] [address] [place] [address] Brice Oliva, DO [address] [place] [address] 01/14/2025 12:00 PM EDT Office Visit [facility] [place] [address] [facility] [address] [place] [address] Payton Goodwin DO [address] [place], [place] [phone] 03/15/2025 11:20 AM EDT Office Visit [facility] [address] [place] [address] Mathieu Naqvi MD [address] [place] [address] 05/17/2025 10:15 AM EDT Office Visit [facility] [place] [address] [place] [place] [address] Da Rosas DO [address] [address] documented as of this encounter Procedures Procedure Name Priority Date/Time Associated Diagnosis Comments MRI : BRAIN WITH AND WITHOUT CONTRAST Routine 09/14/2024 10:30 AM EST documented in this encounter Results * MRI : BRAIN WITH AND WITHOUT CONTRAST (09/14/2024 10:30 AM EST) Anatomical Region Laterality Modality Radiographic Manuela ging us Morales De La Rosa DO IMG XR PROCEDURES Final R esult documented in this encounter Visit Diagnoses Not on filedocumented in this encounter Care Teams Batch Tester Relationship Specialty [place] [address] [place] [address] PCP - General Family Medicine 04/10/24 Aggie Machuca MD [address] [place] [address] Referring Physician Family Medicine 04/10/24 Da Rosas DO [address] [place] [address] Otolaryngology 04/10/24 Morales De La Rosa DO [address] [place] [address] Referring Physician Neurology 08/20/24 documented as of this encounter
--- OUTSIDE RECORDS SUMMARY | 2024-12-22 12:15 | XMS_ITS | Encounter Summary ---
Author Organization [facility] Address [address] [place] [address] Care Team Providers Care Pattern And Chain Maker Name Role Phone Aggie Machuca MD Unavailable Carter Granger MD Primary Care Provider [phone] Da Rosas DO Unavailable [phone] Morales De La Rosa DO Unavailable [phone] Encounter Details Date Type Department Care Team (Late st Contact Info) Description 08/31/2024 Orders Only [facility] [address] [place] [address] Kory Gallagher MD [address] [place] [address] Social History Tobacco Use Types Packs/Day Years [...] PM EDT Office Visit [facility] [address] [facility] [address] [place] [phone] Morales De La Rosa, DO [address] [place] [address] 01/05/2025 9:15 AM EDT Office Visit [facility] [address] [place] [phone] Brice Oliva, DO [address] [place] [address] 01/14/2025 12:00 PM EDT Office Visit [facility] [address] [facility] [address] [place] [address] Payton Goodwin, DO [address] [place], [place] [id number] 03/15/2025 11:20 AM EDT Office Visit [facility] [address] [place] [address] Mathieu Naqvi MD [address] [place] [id number] 05/17/2025 10:15 AM EDT Office Visit [facility] [place] [address] [place] [phone] Da Rosas, DO [address] [place] [place] [address] documented as of this encounter Procedures Procedure Name Priority Date/Time Associated Diagnosis Comments EMG AND NERVE CONDUCTION STUDY Routine 07/01/2017 12:54 PM EST documented in this encounter Results * EMG AND NERVE CONDUCTION STUDY (07/01/2017 12:54 PM EST) Kory Gallagher MD NEUROLOGY ORDERABLES Final Re sult documented in this encounter Visit Diagnoses Not on filedocumented in this encounter Care Teams Pattern And Chain Maker Relationship Specialty Start Date End Date Carter Granger MD [address] [place], [place] [phone] PCP - General Family Medicine 04/10/24 Aggie Machuca MD [address] [place] [address] Referring Physician Family Medicine 04/10/24 Da Rosas DO [address] [place] [address] Otolaryngology 04/10/24 Morales De La Rosa DO [address] [place] [phone] Referring Physician Neurology 08/20/24 documented as of this encounter
--- OUTSIDE RECORDS SUMMARY | 2024-12-22 12:15 | XMS_ITS | Clinical Summary ---
Author Organization [facility] Address [address] [place] [address] Phone Care Team Providers Care Fishing Rod Assembler Name Role Phone Carter Granger MD Primary Care Provider [phone] Social History Tobacco Use Types Packs/Day Years Used Date Smoking Tobacco: Never Assessed Comments Unknown Sex and Gender Information Value Date Recorded Sex Assigned at Not on file Legal Sex Female 2:55 PM EST Gender Identity Not on file Sexual Orientation Not on file Plan of Treatment Not on file Care Teams Fishing Rod Assembler Relationship Specialty Start Date End Date Carter Granger MD [address] [place] [address] PCP - General 01/27/20
[2024-12-22 13:17] LABS: Bilirubin Urine NEGATIVE (NEGATIVE); Blood Urine NEGATIVE (NEGATIVE); Clarity Urine CLEAR (CLEAR); Color Urine LT. YELLOW (YELLOW); Glucose Urine UA >=1000 mg/dL (NEGATIVE); Ketones Urine NEGATIVE (NEGATIVE); Leukocyte Esterase Urine NEGATIVE (NEGATIVE); Nitrite Urine NEGATIVE (NEGATIVE); Protein Urine NEGATIVE (NEG/TRACE); Urobilinogen Urine 0.2 EU/dL (0.2-1.0); pH Urine 6.5 (5.0-9.0)
[2024-12-22 14:36] LABS: Bacteria Urine TRACE #/HPF (NONE SEEN); Mucus Urine NONE SEEN (NONE SEEN); RBC Urine 0-2 #/HPF (0-2); WBC Urine 0-2 #/HPF (NONE SEEN)
[2024-12-22 14:37] LABS: Cast Seen? NONE SEEN #/LPF (NONE SEEN); Crystals Seen? None Seen #/HPF (None Seen); Squamous Epithelial Cell Urine FEW #/LPF (NONE/RARE); Urine Culture Indicated ALREADY ORDERED
== END 2024-12-22 12:11 | disposition home or self-care (01) ==
LOC: LAB 12:12
PROVIDERS: PCP Nurse Practitioner Family; Visit Provider Nurse Practitioner Family
DX: R35.0 Frequency of micturition (principal)
CPT/HCPCS: 81001; 87086

== ENCOUNTER 2025-03-09 13:28 | Emergency (ER) | payer MEDICARE, SELFPAY ==
--- OUTSIDE RECORDS SUMMARY | 2025-02-12 11:51 | XMS_ITS ---
Author Organization [facility] [place] Address [address] [place] [address] Care Team Providers Care Fire Supervisor Name Role Phone Aggie Machuca Primary Care Provider REASON FOR VISIT update swelling right hand Encounters Encounter Location Date Provider Diagnosis [facility] [address] [place] [address] 02/12/2025 Aggie Machuca Plan Of Treatment No Information Progress Notes * Virgen GRIFFIN SDOB :1955 (69 yo F)Acc No.[id number]:02/12/2025 Patient: Lyudmila APONTEARLETTEASHLEY Virgen Ramiro :1955 A ge:69 Y S ex:Female Address:[address] [place], [address] * true * Date: Generated for Maurii kristine/Darlene/eTransmitting on: 0 03/09/2025 01:34 PM EDT
--- OUTSIDE RECORDS SUMMARY | 2025-03-04 05:00 | XMS_ITS ---
Author Organization [facility] in [place] Address [address] [place] [address] Care Team Providers Care Tie Cutter Name Role Phone Aggie Machuca Primary Care Provider Allergies Allergen (clinical drug ingredient) Drug/Non Drug Allergy documented on EMR Reaction Allergy Type Onset Date Status Darvocet-N 50 Unknown Drug Allergy Act arina Vicodin Unknown Drug Allergy Active codeine Codeine Unknown Drug Allergy Active cefuroxime Cefuroxime itching Drug Allergy Activ e Penicillin Unknown Drug Allergy Active Reason For Referral Reason low back pain with s ciatica, worse on right Diagnosis 1 Low back pain with s ciatica (M54.40) Referral Organization [facility] Medicine Referring Provider First Name Aggie Referring Provider Last Name Sven Referring Provider Speciality Family Med icine Referred Provider Dustin Sparrow Referred Provider Specialty Pain Medicin e Referral Priority Routine REASON FOR VISIT patient is co legs, low back pain started in jul and getting worse Medications Medication SIG (Take, Route, Frequency, Duration) Notes Start Date End Date Status Dexcom G7 Manager Linux A ctive Doxycycline Monohydrate 100 MG 1 capsule Orally BID for 7 days 02/09/2025 Active Dexcom G7 Sensor Act arina Fluconazole 150 MG 1 tablet Orally once for 1 days 12/04/2024 Active FLUoxetine HCl 20 MG TAKE 1 CAPSULE EVER Y DAY for 90 Active Cyclobenzaprine HCl 5 MG 1 tablet Orally BID prn for 10 days 11/06/2024 Active Alendronate Sodium 70 MG TAKE 1 TABLET E VERY WEEK for 84 Active Albuterol Sulfate HFA 108 (9 0 Base) MCG/ACT 2 puff as needed Inhalation every 4 hrs for 30 days 12/11/2023 Active busPIRone HCl 7.5 MG TAKE 1 TABLET TWICE DAILY for 90 Active Aspirin 81 81 MG 1 tablet Orally Once a day Active True Metrix Level 1 Low USE DIRECTED WITH GLUCOSE METER for 90 Active True Metrix Blood Glucose Te st - TEST BLOOD SUGAR THREE TIMES DAILY for 90 Active TRUEplus Lancets 33G - TEST BLOOD SUGAR THREE TIMES DAILY for 90 Active True Metrix Air Glucose Mete r w/Device USE DIRECTED for Activ e Advil Cold/Sinus 30-200 MG 1 tablet as n eeded Orally every 6 hrs PRN Active Simvastatin 40 MG TAKE 1 TABLET EVERY NIGHT for Active ReliOn Insulin Syringe 31G X 15/64 0.3 ML USE 1 ONCE DAILY DIRECTED for Active Potassium Chloride Dipti ER 1 0 MEQ 1 tablet with food Orally Twice a day as needed with Lasix for 30 days 12/04/2024 Active Pregabalin 75 MG TAKE 1 CAPSULE TWICE DAILY for 30 02/22/2025 Active predniSONE 20 MG 2 tablet Orally Once a day for 3 days 02/09/2025 Active NovoLIN R FlexPen 100 UNIT/ML sliding sc tobias Injection TID Active Ozempic (1 MG/DOSE) 4 MG/3ML 1 mg Subcut aneous weekly for 30 days 01/18/2025 Active Omeprazole 40 MG TAKE 1 CAPSULE ONE TIME DAILY 30 MINUTES BEFORE MORNING MEAL. for Active Pen Chefornak Active NovoLIN N 100 UNIT/ML 24 units Subcutane ous bid Active Mupirocin 2 % 1 application Externally Twice a day for 5 days 02/09/2025 Active Nitroglycerin 0.4 MG as directed Sublingual PRN Active Chefornak & Syringes - as directed Active Mupirocin 2 % 1 application Externally Twice a day for 5 days Active Jardiance 25 MG TAKE 1 TABLET EVERY DAY for 90 Active hydroCHLOROthiazide 25 MG TAKE 1 TABLET EVERY MORNING for Active Meclizine HCl 25 MG 1 tablet as needed Orally every 12 hrs for 30 days PRN Active Furosemide 20 MG TAKE 1 TABLET ONE TI ME DAILY NEEDED for 30 days Active Social History Tobacco Use: Social History [...] ast year? No Points 0 Interpretation Negative Problems Problem Type SNOMED Code ICD Code Onset Dates Problem Status W/U Status Risk Notes Problem Sciatica (46025225) Low back pain with sciatica (M54.40) Active confirmed Vital Signs Weight 196.4 lbs 03/04/2025 Height 60 in 03/04/2025 Blood pressure systolic 124 mm Hg 03/04/20 25 Blood pressure diastolic 70 mm Hg 025 BMI 38.35 kg/m2 03/04/2025 Encounters Encounter Location Date Provider Diagnosis [facility] [address] [place] [address] 03/04/2025 Aggie Machuca Low back pain with sciatica M54.40 Assessments Encounter Date Diagnosis (ICD Code) Assessment Notes Treatment Notes Treatment Clinical Notes Section Notes 03/04/2025 Low back pain with sciatica (ICD-10 - M54.40) will increase lyrica dose to 100 mg BID next fill pain man referral in PT and seeing chiro Plan Of Treatment Medication Medication Name Sig Start Date Stop Date Notes Naproxen 500 MG 1 tablet with food o r milk as needed Orally every 12 hrs 01/18/2025 Treatment Notes Assessment Notes Low back pain with sciatica will increase lyrica dose to 100 mg BID next fill pain man referral in PT and seeing chiro Referrals Referral Date Details 03/04/2025 03/04/2025, low back pain with sciatica, worse on right, Dustin Sparrow Next Appt Details Follow Up: prn, Reason: Progress Notes * Virgen GRIFFIN SDOB :1955 (69 yo F)Acc No.[id number]:03/04/2025 Progress Note Patient: Virgen BUSTAMANTE Provider: Keke Machuca ([facility]), SPRUE CUTTING PRESS OPERATOR :1955 A ge:69 Y S ex:Female Date:03/04/2025 Address:[address], [id number] Check In:09:03 AM ESTCheck O ut:09:32 AM EST Subjective: * Chief Complaints: * 1 . Patient is co legs, low back pain started in jul and getting worse. * HPI: G eneral: BH and chiro working on back pain low back pain, worse sciatica on right, but also in left increase lyrica, stop naproxen start mobic pain man, [address] * ROS: G eneral/Constitutional: Fever d enies. H eadache d enies. W eight loss?denies. O phthalmologic: Discharge d enies. E ye Pain d enies. I tching and redness d enies. E NT: Nasal discharge d enies. N rachel congestion d enies.?Sore throat d enies. C ardiovascular: Chest tightness/ heavy pressure d enies. R apid heart rate d enies. S welling of extremities d enies. C hest pain d enies. ? R espiratory: Productive cough d enies. C hest pain d enies. C ough d enies. S hortness of breath d enies. W heezing d enies. ? G astrointestinal: Abdominal pain d enies. C onstipation d enies. D ecreased appetite d enies. D iarrhea d enies. N ausea d enies. V omiting?denies. G enitourinary: Urinary incontinence d enies. P ainful urination d enies. M usculoskeletal: Back pain a dmits low back with bilateral sciatica , right worse left numbness and tingling both feet. N elizabeth pain?denies. M uscle aches d enies. S kin: Rash d enies. S kin lesion(s) d enies. ? * Active Problem List M79.661 Pain in right lower leg Modified On:12/06/2022/U Status:confirmed M89.9 Disorder of bone, un specified Modified On:12/06/2022/U Status:confirmed R07.89 Other chest pain Modified On:12/06/2022/U Status:confirmed R53.83 Fatigue Modified On:12/06/2022 Status:confirmed I10 [...] in joint of lef t hand Modified On:12/06/2022 Status:confirmed N63.0 Lump or mass in remedios [...] Modified On:09/07/2024 Status:confirmed I10 HTN (hypertension) Modified On:11/20/2024 Status:confirmed E66.9 Class 2 obesity Modified On:11/20/2024 Status:confirmed E66.01 Morbid (severe) obes ity due to excess calories Modified On:01/18/2025U Status:confirmed M54.40 Low back pain with s ciatica Modified On:03/04/2025W/U Status:confirmed * Medical History: L eft leg [...] . * Hospitalization/Major Diagno stic Procedure: M OK 11/20. * Family History: F ather: 90 [...] containing alcohol in the past year? N o P oints 0 I nterpretation N egative [...] Orally BID prn , Taking Dexcom G7 Manager Linux , Taking Dexcom G7 Sensor , Taking Doxycycline Monohydrate 100 MG Capsule 1 capsule Orally BID , Taking Fluconazole 150 MG Tablet 1 tablet Orally once , Taking FLUoxetine HCl 20 MG Capsule TAKE 1 CAPSULE EVERY DAY , Taking Furosemide 20 MG Tablet TAKE 1 TABLET ONE TIME DAILY NEEDED , Taking hydroCHLOROthiazide 25 MG Tablet TAKE 1 TABLET EVERY MORNING , Taking Jardiance(Empagliflozin) 25 MG Tablet TAKE 1 TABLET EVERY DAY , Taking Meclizine HCl 25 MG Tablet Chewable 1 tablet as needed Orally every 12 hrs , Notes to Pharmacist: PRN, Taking Mupirocin 2 % Ointment 1 application Externally Twice a day , Taking Mupirocin 2 % Ointment 1 application Externally Twice a day , Taking Naproxen 500 MG Tablet 1 tablet with food or milk as needed Orally every 12 hrs , Taking Chefornak & Syringes - Miscellaneous as directed , Taking Nitroglycerin 0.4 MG Tablet Sublingual as directed Sublingual , Notes to Pharmacist: PRN, Taking NovoLIN N(Insulin NPH (Human) (Isophane)) 100 UNIT/ML Suspension 24 units Subcutaneous bid , Taking NovoLIN R FlexPen(Insulin Regular Human) 100 UNIT/ML Solution Pen-injector sliding scale Injection TID , Taking Omeprazole 40 MG Capsule Delayed Release TAKE 1 CAPSULE ONE TIME DAILY 30 MINUTES BEFORE MORNING MEAL. , Taking Ozempic (1 MG/DOSE)(Semaglutide (1 MG/DOSE)) 4 MG/3ML Solution Pen-injector 1 mg Subcutaneous weekly , Taking Pen Chefornak , Taking Potassium Chloride Dipti ER 10 MEQ Tablet Extended Release 1 tablet with food Orally Twice a day as needed with Lasix , Taking predniSONE 20 MG Tablet 2 tablet Orally Once a day , Taking Pregabalin 75 MG Capsule TAKE 1 CAPSULE TWICE DAILY , Taking ReliOn Insulin Syringe(Insulin Syringe-Needle U-100) 31G X 15/64 0.3 ML Miscellaneous [...] itching - Allergy. Objective: * Vitals: W t:196.4lbs, Ht: 60 in, BP:124/70mm Hg, BMI:38.35Index, Ht-cm: 152.4 cm, Wt-k.09 kg. * Examination: G eneral Examinations: GENERAL APPEARANCE: a lert and oriented, i n no acute distress. EYES: c onjunctiva normal, sclera non-icteric. NOSE: n ormal external appearance. LUNGS: d iminished breath sounds in the bases. CARDIO: r egular rate and rhythm, S1, S2 normal, no murmurs, no edema. MUSCULOSKELETAL: d ecreased ROM due to back pain, sciatica, arthritis, using cane. SKIN: w arm and dry. Assessment: * Assessment: 1. L ow back pain with sciatica - M54.40 (Primary) Plan: * Treatment: * Preventive Medicine: Screenings/Counseling: B WI ACTION PLAN Above Normal BMI Follow-up D ietary management education, guidance, and counseling * Follow Up: p rn * * Electronically signed by Alma Machuca , RECORDINGS LIBRARIAN, ASSEMBLER EQUIPMENT.SPRUE CUTTING PRESS OPERATOR.[id number] on 03/04/2025 at 03:52 PM EDT Sign off status: Completed Visit Status: C HK (Check Out) true * Provider: Keke Machuca ([facility]), SPRUE CUTTING PRESS OPERATOR Date: 03/04/2025 Generated for Maddy carmona/Darlene/eTransmitting on: 03/09/2025 01:34 PM EDT History and Physical Notes * HPI (History of Present Illness) Category Sub-Category Detail Notes Category Not es General BH and chiro working on back pain low back pain, worse sciatica on right, but also in left increase lyrica, stop naproxen start mobic pain man, [address] Examination Category Sub-Category Detail Notes Category Not es General Examinations GENERAL APPEARANCE: alert a nd oriented, in no acute distress EYES: conjunctiva normal, sclera non-icteric EARS: NOSE: normal external appe arance THROAT: CARDIO: regular rate and rhy thm, S1, S2 normal, no murmurs, no edema LUNGS: diminished breath so unds in the bases ABDOMEN: SKIN: warm and dry BACK: MUSCULOSKELETAL: decreased ROM due to back pain, sciatica, arthritis, using cane LYMPH NODES: Consultation Request Notes Referral Date Referring Provider Referred Provider Not es 03/04/2025 Aggie Machuca Sherif low back pain with sciatica, worse on right
--- OUTSIDE RECORDS SUMMARY | 2025-03-05 04:40 | XMS_ITS ---
Author Organization [facility] in [place] Address [address] [place] [address] Care Team Providers Care Eyelet Punch Operator Name Role Phone Aggie Machuca Primary Care Provider Medications Medication SIG (Take, Route, Fr equency, Duration) Notes Start Date End Date Status Pregabalin 100 MG TAKE 1 CAPSULE TWICE DAILY for 30 days 03/05/2025 Active Encounters Encounter Location Date Provider Diagnosis [facility] [address] [place] [address] 03/05/2025 Aggie Machuca Plan Of Treatment Medication Medication Name Sig Start Date Stop Date Notes Pregabalin 100 MG TAKE 1 CAPSULE TWICE DAILY for 30 days 0 03/05/2025 Progress Notes * Virgen GRIFFIN SDOB :1955 (69 yo F)Acc No.[id number]:03/05/2025 Patient: Lyudmila PERKINSVirgen DALEY :1955 A ge:69 Y S ex:Female Address:[address] [place], [address] * Refills Refill Pregabalin Capsule, 100 MG, 60 Capsule, TAKE 1 CAPSULE TWICE DAILY, 30 days, Refills=0 Subjective: * Chief Complaints: * * Medical History: * Surgical History: * Hospitalization/Major Diagno stic Procedure: * Medications: Objective: * Vitals: * Physical Examination: Assessment: Plan: * Treatment: * Procedure Codes: * true * Date: Generated for Maddy carmona/Darlene/Esau on: 0 03/09/2025 01:34 PM EDT
--- OUTSIDE RECORDS SUMMARY | 2025-03-09 13:34 | XMS_ITS | Patient Health Record ---
Author Organization [facility][1] es Address [address] [place] [address] Care Team Providers Care Surface Water Technician Name Role Phone Dr. Mikal Barton Primary Care Provider Allergies Allergen (clinical drug [...] 40 mg 1 tablet Orally Once a day; Duration: 30 day(s) 06/20/2010 Active Tagamet HB 200 MG 1 tablet Orally PRN; Duration: 30 day(s) Active Glucophage 1000 mg as directed Orally B ID; Duration: 30 days Active Lisinopril 20 mg 1 tablet Orally Once a day; Duration: 30 day(s) Active Multivitamins as directed Orally 07/29/19001900 Active Omeprazole 40 MG 1 capsule Orally Onc e a day; Duration: 30 day(s) Active Aspir-81 81 MG 1 tablet Orally Once a day; Duration: 30 day(s) Active Problems Problem Type SNOMED Code ICD Code Onset Dates Problem Status W/U Status Risk Notes Problem 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) Diabetes with unspecified complication, type II or unspecified type, not stated as uncontrolled (250.90) Active confirmed Problem Pure hypercholesterolemia (401126334) Pure hypercholesterolemia (272.0) Active confirmed Problem Idiopathic periphera l neuropathy (48725131) Other specified idiopathic peripheral neuropathy (356.8) Active confirmed Problem Benign essential hypertension (0168926) Essential hypertension, benign (401.1) Active confirmed Plan Of Treatment No Information Insurance Providers Payer Name Payer Address Payer Phone Subscriber Number Group Number Insured Name Patient Relationship to Insured Coverage Start Date Coverage End Date [employer] [facility] [employer] O [address] [address] [place] [phone] [id number] IDRIS MINER Self - patient is the insured 3 Medical (General) History Medical History History ICD Code HTN ID [id number] concussion 2000 migraines depression DM Surgical History Surgery Date(Month/Year) T&A age 17 hysterectomy d/t uterine Ca 1997 cholecystectomy 2005
--- OUTSIDE RECORDS SUMMARY | 2025-03-09 13:34 | XMS_ITS | Patient Health Record ---
Author Organization [facility] in [place] Address [address] [place] [address] Care Team Providers Care Teaching Dietitian Name Role Phone Aggie Davis Primary Care Provider BárbaraKyle [phone] Allergies Allergen (clinical drug ingredient) Drug/Non Drug Allergy documented on EMR Reaction Allergy Type Onset Date Status Darvocet-N 50 Unknown Drug Allergy Act arina Vicodin Unknown Drug Allergy Active codeine Codeine Unknown Drug Allergy Active cefuroxime Cefuroxime itching Drug Allergy Activ e Penicillin Unknown Drug Allergy Active Results Component Value Reference Range Notes XR hip LT 2V w/ pelvis Reviewed date:06/30/2024 12:17:25 PM Interpretation: Performing Lab: Notes/Report: Source Facility: [place] [address] [place] [address] XRay Report Signed Patient: IDRIS GONZALES MR#: [id number] : 1955 Acct:[id number] Age/Sex: 68 / F ADM Date: 06/29/24 Loc: RAD Attending Dr: AGGIE DAVIS Ordering Physician: AGGIE DAVIS Date of Service: 06/29/24 Procedure(s): XR hip LT 2V w/ pelvis Accession Number(s): [id number] cc: AGGIE DAVIS [place] [id number] Patient Name: IDRIS GONZALES MRN: [id number] date: 1955 Sex: F Assigned Patient Location: RAD Current Patient Location: RAD Accession/Order Number: [id number] Exam Date: 06/29/2024 14:41 Report Date: 06/30/2024 [...] of the hip joints. Electronically authenticated by: SHAHRIAR OWENS Date: 06/30/2024 06:58 Dictated By: Shahriar Owens M.D. Signed By: 06/30/24 07 DD/ 0658 TD/TT: Special Needs Librarian: [place] [address] XRay Report Signed Patient: IDRIS GONZALES MR#: [id number] : 1955 Acct:[id number] Age/Sex: 68 / F ADM Date: 06/29/24 Loc: RAD Attending Dr: AGGIE DAVIS Ordering Physician: AGGIE DAVIS Date of Service: 06/29/24 Procedure(s): XR hip LT 2V w/ pelvis Accession Number(s): [id number] cc: AGGIE DAVIS [place] [id number] Patient Name: IDRIS GONZALES MRN: [id number] date: 1955 Sex: F Assigned Patient Location: RAD Current Patient Loca tion: RAD Accession/Order Numb er: [id number] Exam Date: 14:41 Report Date: 06/30/2024 06:58 [...] of the hip joints. Electronically authenticated by: SHAHRIAR OWENS Date: 06/30/2024 06:58 Dictated By: Shahriar Owens M.D. Signed By: 06/30/24 0701 DD/ 0658 TD/TT: Special Needs Librarian: MM tomosynthesis screening B I Reviewed date:06/30/2024 12:15:33 PM Interpretation: Performing Lab: Notes/Report: Source Facility: [place] [address] Mammography Report Signed Patient: IDRIS GONZALES MR#: [id number] : 1955 Acct:[id number] Age/Sex: 68 / F ADM Date: 06/29/24 Loc: MAMMO Attending Dr: AGGIE DAVIS Ordering Physician: AGGIE DAIVS Results: Date of Service: 06/29/24 Follow Up: Procedure(s): MM tomosynthesis screening BI Accession Number(s): [id number] cc: AGGIE DAVIS Patient Name: IDRIS GONZALES MR#: [id number] : 1955 Exam Date: 06/29/2024 Ordering Doctor: AGGIE DAVIS [facility] RADI[facility] REPORT PROCEDURE: MM TOMOSYNTHESIS SCREENING BI [...] unknown cancer at age 24. LOCATION: [facility] BREAST COMPOSITION: The breasts are heterogeneously [...] PALPABLE LUMP SHOULD BE BIOPSIED. Dictated by: Shahriar Owens M.D. on 06/29/2024 at 16:12 Approved by: Shahriar Owens M.D. on 06/29/2024 at 16:17 Dictated By: Shahriar Owens M.D. Signed By: 06/29/24 1618 DD/ 16 TD/TT: Special Needs Librarian: [place] [address] Mammography Report Signed Patient: IDRIS GONZALES MR#: [id number] : 1955 Acct:[id number] Age/Sex: 68 / F ADM Date: 06/29/24 Loc: MAMMO Attending Dr: AGGIE DAVIS Ordering Physician: AGGIE DAVIS Results: Date of Service: 09/21 Follow Up: Procedure(s): MM tomosynthesis screening BI Accession Number(s): [id number] cc: AGGIE DAVIS Patient Name: IDRIS GONZALES MR#: [id number] : 1955 Exam Date: 06/29/2024 Ordering Doctor: ROMÁN DAVIS [facility] RADIOLOGY REPORT PROCEDURE: MM TOMOSYNTHESIS SCREENING [...] [facility] BREAST COMPOSITION: The breasts are heterogeneously dense,which [...] PALPABLE LUMP SHOULD BE BIOPSIED. Dictated by: Shahriar Owens M.D. on 06/29/2024 at 16:12 Approved by: Shahriar Owens M.D. on 06/29/2024 at 16:17 Dictated By: Shahriar Owens M.D. Signed By: 06/29/248 DD/ 16 TD/TT: Special Needs Librarian: MARIANNA T3 Reviewed date:07/10/2024 03:02:41 PM Interpretation: Performing Lab: Notes/Report: [facility] , Free T3 1.97 2.18-3.98 pg/mL Performing Lab: see note ML - [facility] LB PROF 14(COMP METB) Reviewed date:07/10/2024 03:02:41 PM Interpretation: Performing Lab: Notes/Report: [facility] , Sodium 142 136-145 mmol/L Potassium [...] Performing Lab: see note ML - [facility] LB T4 Reviewed date:07/10/2024 03:02:41 PM Interpretation: Performing Lab: Notes/Report: [facility] , T4 Thyroxine 6.40 4.80-13.90 ug/dL Performing Lab: see note ML - [facility] LB TSH Reviewed date:07/10/2024 03:02:41 PM Interpretation: Performing Lab: Notes/Report: [facility] , Thyroid Stimulating Hormone 2.731 0.358-3.740 uIU/mL Performing Lab: see note ML - [facility] LB FREE T3 Reviewed date:07/17/2024 02:33:39 PM Interpretation: Performing Lab: Notes/Report: [facility] , Free T3 1.81 2.18-3.98 pg/mL Performing Lab: see note ML - [facility] LB PROF 14(COMP METB) Reviewed date:07/17/2024 02:33:39 PM Interpretation: Performing Lab: Notes/Report: [facility] , Sodium 143 136-145 mmol/L Potassium [...] 0.9 Performing Lab: see note ML - [facility] LB T4 Reviewed date:07/17/2024 02:33:39 PM Interpretation: Performing Lab: Notes/Report: [facility] , T4 Thyroxine 5.50 4.80-13.90 ug/dL Performing Lab: see note - [facility] LB TSH Reviewed date:07/17/2024 02:33:39 PM Interpretation: Performing Lab: Notes/Report: [facility] , Thyroid Stimulating Hormone 2.954 0.358-3.740 uIU/mL Performing Lab: see note - [facility] LB XR DEXA axial skeleton Reviewed date:09/18/2024 03:36:56 PM Interpretation: Performing Lab: Notes/Report: Source Facility: [place] [address] XRay Report Signed Patient: IDRIS GONZALES MR#: [id number] : 1955 Acct:[id number] Age/Sex: 68 / F ADM Date: 07/17/24 Loc: RAD Attending Dr: AGGIE DAVIS Ordering Physician: AGGIE DAVIS Date of Service: 07/17/24 Procedure(s): XR DEXA axial skeleton Accession Number(s): [id number] cc: AGGIE DAVIS [place] [address] Patient Name: IDRIS GONZALES MRN: [id number] date: 1955 Sex: F Assigned Patient Location: RAD Current Patient Location: SLEEP Accession/Order Number: [id number] Exam Date: 07/17/2024 10:18 Report Date: 07/17/2024 [...] BMD [12, 13]. Viktor MS, Larry SL, Bethayn KL, Khushbu EM, Jennie KG, AJ, Devan ES. The clinician's guide to prevention and treatment of osteoporosis. Osteoporos Int. 2021;33(10):2109-7874. doi: 10.1007/q20376-360-88194-l. Epub 2021Nov 23. Erratum in: Osteoporos Int. 2021Feb 22;: PMID: 55604519; PMCID: QDV0496092. Electronically authenticated by: BRIANNA GREEN Date: 07/17/2024 11:55 Dictated By: Brianna Green M.D. Signed By: 09/17/24 1232 DD/ 1155 TD/TT: Special Needs Librarian: [place] [address] XRay Report Signed Patient: IDRIS GONZALES MR#: [id number] : 1955 Acct:[id number] Age/Sex: 68 / F ADM Date: 07/17/24 Loc: RAD Attending Dr: AGGIE DAVIS Ordering Physician: AGGIE DAVIS Date of Service: 07/17/24 Procedure(s): XR DEX A axial skeleton Accession Number(s): [id number] cc: AGGIE DAVIS [place] [id number] Patient Name: IDRIS GONZALES MRN: [id number] date: 1955 Sex: F Assigned Patient Location: RAD Current Patient Loca tion: SLEEP Accession/Order Numb er: [id number] Exam Date: 10:18 Report Date: 07/17/2024 11:55 [...] prevention and treatment of osteoporosis. Osteoporos Int. 2021;33(10):1225-1876. doi: 10.1007/u13299-854-24201- y. Epub 2021Nov 23. Erratum in: Osteoporos Int. 2021Feb 22;: PMID: 32302535; PMCID: [id number]. Electronically authenticated by: BRIANNA GREEN Date: 07/17/2024 11:55 Dictated By: Harrison Green M.D. Signed By: 09/17/24 1232 DD/ 1155 TD/TT: Special Needs Librarian: CREATININE Reviewed date:08/12/2024 07:36:49 PM Interpretation: Performing Lab: Notes/Report: [facility] , Creatinine 1.86 0.55-1.02 mg/dL Estimated GFR ( Vanda 33 >=60 mL/min/1.73m 2 Estimated GFR (Non- Laura 27 >=60 mL/min/1.73m 2 Performing Lab: see note ML - [facility] LB MR abdomen wo/w con Reviewed date:08/12/2024 07:36:49 PM Interpretation: Performing Lab: Notes/Report: Source Facility: [address] [place] [address] Magnetic Resonance Report Signed Patient: IDRIS GONZALES MR#: [id number] : 1955 Acct:[id number] Age/Sex: 68 / F ADM Date: 08/12/24 Loc: LAB Attending Dr: Jose Granger M.D. Ordering Physician: Jose Granger M.D. Date of Service: 08/12/24 Procedure(s): MR abdomen wo/w con Accession Number(s): [id number] cc: AGGIE DAVIS ; Jose Granger M.D. [address] [place] [address] Patient Name: IDRIS GONZALES MRN: [id number] date: 1955 Sex: F Assigned Patient Location: LAB Current Patient Location: LAB Accession/Order Number: [id number] Exam Date: 08/12/2024 07:10 Report Date: 08/12/2024 08:52 At the request of: JOSE GRANGER Procedure: MR abdomen wo/w con EXAMINATION: [...] Dictated By: Brianna Green M.D. Signed By: 08/12/2454 DD/ TD/TT: Special Needs Librarian: [place] [address] Magnetic Resonance Report Signed Patient: IDRIS GONZALES MR#: [id number] : 1955 Acct:[id number] Age/Sex: 68 / F ADM Date: 08/12/24 Loc: LAB Attending Dr: Mikey Granger M.D. Ordering Physician: Jose Granger M.D. Date of Service: 08/12/24 Procedure(s): MR carmen kaur wo/w con Accession Number(s): [id number] cc: AGGIE DAVIS ; Jose Granger M.D. [place] [id number] Patient Name: IDRIS GONZALES MRN: [id number] date: 1955 Sex: F Assigned Patient Location: LAB Current Patient Loca tion: LAB Accession/Order Numb er: [id number] Exam Date: 08/12/2024 07:10 Report Date: 08/12/2024 08:52 At the request of: JOSE GRANGER Procedure: MR abdome n wo/w con EXAMINATION: MR bautista men wo/w con HISTORY: kidney mass N28.89 [...] Green M.D. Signed By: 08/12/24 0854 DD/ 0852 TD/TT: Special Needs Librarian: XR foot RT min 3V Reviewed date:08/12/2024 08:48:57 AM Interpretation: Performing Lab: Notes/Report: Source Facility: [place] [address] XRay Report Signed Patient: IDRIS GONZALES MR#: [id number] : 1955 Acct:[id number] Age/Sex: 68 / F ADM Date: 08/12/24 Loc: RAD Attending Dr: AGGIE DAVIS Ordering Physician: AGGIE DAVIS Date of Service: 08/12/24 Procedure(s): XR foot RT min 3V Accession Number(s): [id number] cc: AGGIE DAVIS [place] [address] Patient Name: IDRIS GONZALES MRN: [id number] date: 1955 Sex: F Assigned Patient Location: [facility] Current Patient Location: LAB Accession/Order Number: [id number] Exam Date: 08/12/2024 08:10 Report Date: 08/12/2024 [...] Dictated By: Brianna Green M.D. Signed By: 08/12/2442 DD/ TD/TT: Special Needs Librarian: [place] [address] XRay Report Signed Patient: IDRIS GONZALES MR#: [id number] : 1955 Acct:[id number] Age/Sex: 68 / F ADM Date: 08/12/24 Loc: [facility] Attending Dr: AGGIE DAVIS Ordering Physician: AGGIE DAVIS Date of Service: 08/12/24 Procedure(s): XR tobin t RT min 3V Accession Number(s): [id number] cc: AGGIE DAVIS [place] [address] Patient Name: IDRIS GONZALES MRN: [id number] date: 1955 Sex: F Assigned Patient Location: [facility] Current Patient Loca tion: LAB Accession/Order Numb er: [id number] Exam Date: 08/12/2024 08:10 Report Date: 08/12/2024 [...] Harrison Green M.D. Signed By: 08/12/2442 DD/ TD/TT: Special Needs Librarian: STACEY echo doppler complete Reviewed date:08/16/2024 02:47:44 PM Interpretation: Performing Lab: Notes/Report: Source Facility: [place] [address] Cardiology Report Signed Patient: IDRIS GONZALES MR#: [id number] : 1955 Acct:[id number] Age/Sex: 68 / F ADM Date: 08/12/24 Loc: LAB Attending Dr: Jose Granger M.D. Ordering Physician: Jose Granger M.D. Date of Service: 08/12/24 Procedure(s): CA echo doppler complete Accession Number(s): [id number] cc: AGGIE DAVIS ; Jose Granger M.D. Patient Name: IDRIS GONZALES MR#: [id number] : 1955 Exam Date: 08/12/2024 Ordering Doctor: DR Jose Granger . ECHOCARDIOGRAM REPORT PROCEDURE: CA ECHO DOPPLER COMPLETE INDICATIONS: Syncope, smoker, hypertension, diabetes, h/o HI COMPARISON: None. DESCRIPTION: COMPLETE ECHOCARDIOGRAM Real-time transthoracic [...] HEIDE MACDONALD Signed By: 08/15/24 1457 DD/ 145 TD/TT: Special Needs Librarian: [place] [address] Cardiology Report Signed Patient: IDRIS GONZALES MR#: [id number] : 1955 Acct:[id number] Age/Sex: 68 / F ADM Date: 08/12/24 Loc: LAB Attending Dr: Mikey Granger M.D. Ordering Physician: Jose Granger M.D. Date of Service: 08/12/24 Procedure(s): CA ech o doppler complete Accession Number(s): [id number] cc: AGGIE DAVIS ; Jose Granger M.D. Patient Name: IDRIS GONZALES MR#: [id number] : 1955 Exam Date: 08/12/2024 Ordering Doctor: DR Jose Granger . ECHOCARDIOGRAM REPORT PROCEDURE: CA ECHO DOPPLER COMPLETE INDICATIONS: Syncope , smoker, hypertension, diabetes, h/o HI COMPARISON: None. DESCRIPTION: COMPLET E ECHOCARDIOGRAM Real-time [...] Normal right ventricular systolic function. TRICUSPID VALVE: No rmal mobility and thickness. No stenosis with no [...] Signed By: 08/15/24 1457 DD/ 1456 TD/TT: Special Needs Librarian: CBC AUTO DIFF Reviewed date:11/01/2024 09:38:41 PM Interpretation: Performing Lab: Notes/Report: [facility] , White Blood Count 15.3 4.0-11.0 [...] 3/uL Performing Lab: see note ML - [facility] PROF 14(COMP METB) Reviewed date:11/01/2024 09:38:41 PM Interpretation: Performing Lab: Notes/Report: [facility] , Sodium 138 136-145 mmol/L Potassium [...] 1.1 Performing Lab: see note ML - [facility] Troponin I High Sensitivity Reviewed date:11/01/2024 09:38:41 PM Interpretation: Performing Lab: Notes/Report: [facility] , Troponin I High Sensitivity 42.1 4.0-51.3 pg/mL CUT-OFF POINTS HAVE BEEN ESTABLISHED BASED ON THE FOURTH UNIVERSAL DEFINITION OF MYOCARDIAL INFARCTION. THE UPPER REFERENCE LIMIT (URL) OF TROPONIN, DEFINED THE 99TH PERCENTILE OF cTnI DISTRIBUTION IN A REFERENCE POPULATION, HAS BEEN CONFIRMED THE DECISION THRESHOLD FOR HI DIAGNOSIS. 99TH PERCENTILE = 51.4 PG/ML NOTE: HIGH-SENSITIVITY TROPONIN ASSAY IS NOT INTENDED TO BE USED IN ISOLATION BUT SHOULD BE INTERPRETED IN CONJUNCTION WITH OTHER DIAGNOSTIC AND CLINICAL INFORMATION. Performing Lab: see note ML - [facility] LB Salmonella/Shigella Screen Reviewed date:11/05/2024 03:51:11 PM Interpretation: Performing Lab: Notes/Report: [facility] , Salmonella/Shigella Screen See Below For Report Salmonella/Shigella Screen Salmonella/Shigella Screen No Salmonella or Shigella recovered. Salmonella/Shigella Screen Performing Lab: see note LC - [facility] LB Venous Blood Gas Reviewed date:11/01/2024 09:38:41 PM Interpretation: Performing Lab: Notes/Report: [facility] , pH VBG 7.171 7.330-7.430 PCO2 VBG 41.6 40.0-52.0 mmHg Performing Lab: see note ML - [facility] LB Acetone Reviewed date:11/01/2024 09:38:41 PM Interpretation: Performing Lab: Notes/Report: [facility] , Acetone NEGATIVE NEGATIVE Performing Lab: see note - [facility] LB Urine Culture - [facility] Reviewed date:11/02/2024 01:42:13 PM Interpretation: Performing Lab: Notes/Report: [facility] , Urine Culture - [facility] See Below For Report Urine Culture - [facility] <9,000 colonies/ml mixed Urine Culture - [facility] bacterial skin contaminants Urine Culture - [facility] <9,000 colonies/ml mixed Urine Culture - [facility] 2 Days Urine Culture - [facility] <9,000 colonies/ml mixed [facility]rine Culture - [facility] Urine Culture - [facility] <9,000 colonies/ml mixed Urine Culture - [facility] Testing performed a [facility] Urine Culture - [facility] <9,000 colonies/ml mixed Urine Culture - [facility] [address] [place] [address] Urine Culture - [facility] <9,000 colonies/ml mixed Performing Lab: see note ML - [facility] LB ECG 12 lead Reviewed date:11/01/2024 09:38:41 PM Interpretation: Performing Lab: Notes/Report: Source Facility: [facility] [place] [address] [place] [address] Electrocardiograph Report Signed Patient: IDRIS GONZALES MR#: [id number] : 1955 Acct:[id number] Age/Sex: 69 / F ADM Date: 10/30/24 Loc: [place] 202-[address]: Jose Granger M.D. Ordering Physician: Jose Diamond Date of Service: 10/30/24 Procedure(s): ECG 12 lead Accession Number(s): [id number] cc: [facility] Test Date: 2024-10-30 Pat Name: IDRIS GONZALES Department: Room: - Gender: Female Collar Shaper Operator: : 1955 Requested By: 0919 Order Number: [id number] Reading MD: HEIDE MACDONALD M.D. Measurements Intervals [place] Rate: 72 P: 30 OK: 168 QRS: -42 QRSD: 140 T: 19 QT: 430 QTc: 454 Interpretive Statements 1100 Sinus rhythm 1102 Sinus arrhythmia 2450 Right bundle branch block 7200 Abnormal left axis deviation 9150 abnormal ECG Compared to ECG 01/24/2024 23:25:30 Left-axis deviation now present Electronically Signed On 10-31-2024 8:56:50 EDT by HEIDE MACDONALD M.D. Dictated By: HEIDE MACDONALD Signed By: 10/31/24 0857 DD/ 1830 TD/TT: Special Needs Librarian: [place] [address] Electrocardiograph Report Signed Patient: IDRIS GONZALES MR#: [id number] : 1955 Acct:[id number] Age/Sex: 69 / F ADM Date: 10/30/24 Loc: MS 202- Attending Dr: Mikey Granger M.D. Ordering Physician: Jose Diamond Date of Service: 10/30/24 Procedure(s): ECG 12 lead Accession Number(s): [id number] cc: [facility] Test Date: 2024-10-30 Pat Name: IDRIS GONZALES Department: 32 Room: - Gender: Female Collar Shaper Operator: : 1955 Requ ested By: 0919 Order Number: [id number] Reading MD: HEIDE MACDONALD M.D. Measurements Intervals [place] Rate: 72 P: 30 OK: 168 QRS: -42 QRSD: 140 T: 19 QT: 430 QTc: 454 Interpretive Statements 1100 Sinus rhythm 1102 Sinus arrhythmia 2450 Right bundle br anch block 7200 Abnormal left a xis deviation 9150 abnormal ECG Compared to ECG 01/24/2024 23:25:30 Left-axis deviation now present Electronically Nell d On 10-31-2024 8:56:50 EDT by HEIDE MACDONALD M.D. Dictated By: HEIDE MACDONALD Signed By: 10/31/24 0857 DD/ 29 TD/TT: Special Needs Librarian: E coli Shiga Toxin EIA Reviewed date:11/05/2024 03:51:11 PM Interpretation: Performing Lab: Notes/Report: [facility] , E coli Shiga Toxin EIA See Below For Report E coli Shiga Toxin EIA E coli Shiga Toxin EIA Negative E coli Shiga Toxin EIA E coli Shiga Toxin EIA Performed at: [facility] E coli Shiga Toxin EIA E coli Shiga Toxin EIA [address] [place] [id number] E coli Shiga Toxin EIA E coli Shiga Toxin EIA Security Specialist: Dheeraj Masterson PhD, Phone: [phone] E coli Shiga Toxin EIA Performing Lab: see note LC - [facility] LB SEE REPORT - Heliarc Welder Id information not found for OBX-specific broadcast news producer legend CBC AUTO DIFF Reviewed date:11/01/2024 09:38:41 PM Interpretation: Performing Lab: Notes/Report: [facility] , White Blood Count 11.4 4.0-11.0 [...] 3/uL Performing Lab: see note ML - [facility] LB PROF 14(COMP METB) Reviewed date:11/16/2024 02:19:49 PM Interpretation: Performing Lab: Notes/Report: [facility] , Sodium 141 136-145 mmol/L Potassium [...] 1.0 Performing Lab: see note ML - [facility] LB UA RANDOM W or MICROSCOPIC Reviewed date:12/23/2024 10:16:29 AM Interpretation: Performing Lab: Notes/Report: [facility] , Color Urine LT. YELLOW YELLOW Clarity Urine CLEAR CLEAR Specific [place] Urine 1.010 1.005-1.025 pH Urine 6.5 5.0-9.0 Protein Urine NEGATIVE NEG/TRACE mg/dL Glucose Urine UA >=1000 NEGATIVE mg/dL Bilirubin Urine NEGATIVE NEGATIVE Ketones Urine NEGATIVE NEGATIVE mg/dL Blood Urine NEGATIVE NEGATIVE Nitrite Urine NEGATIVE NEGATIVE Urobilinogen Urine 0.2 0.2-1.0 EU/dL Leukocyte Esterase Urine NEGATIVE NEGATIVE WBC Urine 0-2 NONE SEEN #/HPF RBC Urine 0-2 0-2 #/HPF Bacteria Urine TRACE NONE SEEN #/HPF Mucus Urine NONE SEEN NONE SEEN Squamous Epithelial Cell Urine FEW NONE/RARE #/LPF Crystals Seen? None Seen None Seen #/HPF Cast Seen? NONE SEEN NONE SEEN #/LPF Urine Culture Indicated ALREADY ORDERED Performing Lab: see note ML - [facility] LB Urine Culture - [facility] Reviewed date:12/28/2024 11:47:32 AM Interpretation: Performing Lab: Notes/Report: [facility] Urine Culture - [facility] See Below For Report Urine Culture - [facility] 15,000 colonies/ml mixed Urine Culture - [facility] bacterial skin contaminants Urine Culture - [facility] 15,000 colonies/ml mixed Urine Culture - [facility] 2 Days Urine Culture - [facility] 15,000 colonies/ml mixed Urine Culture - [facility] Urine Culture - [facility] 15,000 colonies/ml mixed Urine Culture - [facility] Testing performed a [facility] Urine Culture - [facility] 15,000 colonies/ml mixed Urine Culture - [facility] [address] [place] [address] [place] [address] Urine Culture - [facility] 15,000 colonies/ml mixed Performing Lab: see note ML - [facility] LB Urine Culture - [facility] Reviewed date:11/16/2024 02:22:44 PM Interpretation: Performing Lab: Notes/Report: [facility] , Urine Culture - [facility] See Below For Report Urine Culture - [facility] >100,000 colonies/ml mixed Urine Culture - [facility] bacterial skin contaminants Urine Culture - [facility] >100,000 colonies/ml mixed Urine Culture - [facility] 2 Days Urine Culture - [facility] >100,000 colonies/ml mixed Urine Culture - [facility] Urine Culture - [facility] >100,000 colonies/ml mixed Urine Culture - [facility] Testing performed a [facility] Urine Culture - [facility] >100,000 colonies/ml mixed Urine Culture - [facility] [address] [place] [address] Urine Culture - [facility] >100,000 colonies/ml mixed Performing Lab: see note ML - [facility] LB UA RANDOM Reviewed date:11/16/2024 02:19:15 PM Interpretation: Performing Lab: Notes/Report: [facility] , Color Urine LT. YELLOW YELLOW Clarity Urine SL CLOUDY CLEAR Specific [place] Urine 1.010 1.005-1.025 pH Urine 6.0 5.0-9.0 Protein Urine NEGATIVE NEG/TRACE mg/dL Glucose Urine UA >=1000 NEGATIVE mg/dL Bilirubin Urine NEGATIVE NEGATIVE Ketones Urine NEGATIVE NEGATIVE mg/dL Blood Urine LARGE NEGATIVE Nitrite Urine NEGATIVE NEGATIVE Urobilinogen Urine 0.2 0.2-1.0 EU/dL Leukocyte Esterase Urine TRACE NEGATIVE Performing Lab: see note ML - [facility] LB GLYCOHEMOGLOBIN A1C Reviewed date:11/16/2024 02:22:23 PM Interpretation: Performing Lab: Notes/Report: [facility] , Glycohemoglobin A1C 6.7 4.5-6.2 % ADA RECOMMENDED LIMIT 4.0 - 6.0 ADA THERAPEUTIC TARGET < 7.0 ACTION SUGGESTED > 7.0 Estimated Average Glucose 146 Performing Lab: see note ML - [facility] LB PROF 14(COMP METB) Reviewed date:11/01/2024 09:38:41 PM Interpretation: Performing Lab: Notes/Report: [facility] , Sodium 145 136-145 mmol/L Potassium [...] Performing Lab: see note ML - [facility] LB CBC AUTO DIFF Reviewed date:11/01/2024 09:38:41 PM Interpretation: Performing Lab: Notes/Report: [facility] , White Blood Count 8.7 4.0-11.0 [...] 3/uL Performing Lab: see note ML - [facility] LB PROF 14(COMP METB) Reviewed date:11/01/2024 09:38:41 PM Interpretation: Performing Lab: Notes/Report: [facility] , Sodium 143 136-145 mmol/L Potassium [...] Globulin Ratio 1.0 Performing Lab: see note - [facility] LB Campylobacter Culture Reviewed date:11/05/2024 03:51:11 PM Interpretation: Performing Lab: Notes/Report: [facility] , Campylobacter Culture See Below For Report Campylobacter Culture No Campylobacter species isolated. Performing Lab: see note [facility] E coli Shiga Toxin EIA Reviewed date:11/02/2024 03:38:58 PM Interpretation: Performing Lab: Notes/Report: [facility] , E coli Shiga Toxin EIA See Below For Report E coli Shiga Toxin EIA E coli Shiga Toxin EIA Negative E coli Shiga Toxin EIA E coli Shiga Toxin EIA Performed at: [facility] E coli Shiga Toxin EIA E coli Shiga Toxin EIA [address], [place] [id number] E coli Shiga Toxin EIA E coli Shiga Toxin EIA Security Specialist: Dheeraj Masterson PhD, Phone: [phone] E coli Shiga Toxin EIA Performing Lab: see note [facility] LB SEE REPORT - Heliarc Welder Id information not found for OBX-specific broadcast news producer legend C. Difficile PCR Reviewed date:11/01/2024 09:38:41 PM Interpretation: Performing Lab: Notes/Report: [facility] , C. Difficile PCR NEGATIVE Performing Lab: see note - [facility] LB UA RANDOM W or MICROSCOPIC Reviewed date:11/01/2024 09:38:41 PM Interpretation: Performing Lab: Notes/Report: [facility] , Color Urine YELLOW YELLOW Clarity Urine CLOUDY CLEAR Specific [place] Urine 1.015 1.005-1.025 pH Urine 6.0 5.0-9.0 [...] Many budding ye ast Urine Culture Indicated [facility] Performing Lab: see note ML - [facility] LB MAGNESIUM Reviewed date:11/01/2024 09:38:41 PM Interpretation: Performing Lab: Notes/Report: [facility] , Magnesium 1.9 1.8-2.4 mg/dL Performing Lab: see note ML - [facility] LB BNP Reviewed date:11/01/2024 09:38:41 PM Interpretation: Performing Lab: Notes/Report: [facility] , NT Pro B Type Natriuretic Pept 70.0 <=900.0 pg/mL Performing Lab: see note - [facility] LB NM lorraine perf SPECT rest str Reviewed date:08/12/2024 07:36:49 PM Interpretation: Performing Lab: Notes/Report: Source Facility: [facility]-[address] [place] [address] [place] [address] Nuclear Medicine Report Signed Patient: IDRIS GONZALES MR#: [id number] : 1955 Acct:[id number] Age/Sex: 68 / F ADM Date: 08/12/24 Loc: LAB Attending Dr: Jose Granger M.D. Ordering Physician: Jose Granger M.D. Date of Service: 08/12/24 Procedure(s): NM lorraine perf SPECT rest str Accession Number(s): [id number] cc: AGGIE DAVIS ; Jose Granger M.D. Patient Name: IDRIS GONZALES MR#: [id number] : 1955 Exam Date: 08/12/2024 Ordering Doctor: DR Jose Granger . RADIOLOGY REPORT PROCEDURE: NM LORRAINE PERF SPECT REST STR COMPARISON: None. INDICATIONS: [...] the study was pending per attending physician [facility] . For more details please [...] Signed By: 08/12/24 1532 DD/ 1530 TD/TT: Special Needs Librarian: [place] [address] Nuclear Medicine Report Signed Patient: IDRIS GONZALES MR#: [id number] : 1955 Acct:[id number] Age/Sex: 68 / F ADM Date: 08/12/24 Loc: LAB Attending Dr: Mikey Granger M.D. Ordering Physician: Jose Granger M.D. Date of Service: 08/12/24 Procedure(s): NM lorraine perf SPECT rest str Accession Number(s): [id number] cc: AGGIE DAVIS ; Jose Granger M.D. Patient Name: IDRIS GONZALES MR#: [id number] : 1955 Exam Date: 08/12/2024 Ordering Doctor: DR Jose Granger . RADIOLOGY REPORT PROCEDURE: NM LORRAINE PE RF SPECT REST STR COMPARISON: None. [...] study was pending pe r attending physician Dr. BOSTON . For more details please see separate [...] on 08/12/2024 at 15:28 Approved by: Brianna mluler MD on 08/12/2024 at 15:30 Dictated By: Harrison Green M.D. Signed By: 08/12/24 1532 DD/ 1530 TD/TT: Special Needs Librarian: STACEY holter montior 2-7 days Reviewed date:07/31/2024 10:25:22 AM Interpretation: Performing Lab: Notes/Report: Source Facility: [address] [place] [address] Cardiology Report Signed Patient: IDRIS GONZALES MR#: [id number] : 1955 Acct:[id number] Age/Sex: 68 / F ADM Date: 07/09/24 Loc: CARD Attending Dr: AGGIE DAVIS Ordering Physician: AGGIE DAVIS Date of Service: 07/09/24 Procedure(s): CA holter montior 2-7 days Accession Number(s): [id number] cc: AGGIE DAVIS [facility] Test Date: 2024-07-21 Pat Name: IDRIS GONZALES Department: Room: - Gender: Female 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 Signed By: 07/22/2481507/22/24815 DD/ 3 TD/TT: Special Needs Librarian: GLYCOHEMOGLOBIN A1C Reviewed date:07/10/2024 03:02:41 PM Interpretation: Performing Lab: Notes/Report: [facility] , Glycohemoglobin A1C 10.6 4.5-6.2 % ADA RECOMMENDED LIMIT 4.0 - 6.0 ADA THERAPEUTIC TARGET < 7.0 ACTION SUGGESTED > 7.0 Estimated Average Glucose 258 Performing Lab: see note ML - [facility] LB CBC AUTO DIFF Reviewed date:07/10/2024 03:02:41 PM Interpretation: Performing Lab: Notes/Report: [facility] , White Blood Count 8.6 4.0-11.0 [...] Performing Lab: see note ML - [facility] LB XR elbow RT min 3V Reviewed date:06/30/2024 12:16:39 PM Interpretation: Performing Lab: Notes/Report: Source Facility: [facility]-[address] [place] [address] [place] [address] XRay Report Signed Patient: IDRIS GONZALES MR#: [id number] : 1955 Acct:[id number] Age/Sex: 68 / F ADM Date: 06/29/24 Loc: RAD Attending Dr: AGGIE DAVIS Ordering Physician: AGGIE DAVIS Date of Service: 06/29/24 Procedure(s): XR elbow RT min 3V Accession Number(s): [id number] cc: AGGIE DAVIS [place] [address] Patient Name: IDRIS GONZALES MRN: [id number] date: 1955 Sex: F Assigned Patient Location: RAD Current Patient Location: Accession/Order Number: [id number] Exam Date: 06/29/2024 14:41 Report Date: 06/30/2024 [...] abnormality. Mild degenerative changes. Electronically authenticated by: SHAHRIAR OWENS Date: 06/30/2024 06:57 Dictated By: Shahriar Owens M.D. Signed By: 06/30/24 0659 DD/ TD/TT: Special Needs Librarian: [place] [address] XRay Report Signed Patient: IDRIS GONZALES MR#: [id number] : 1955 Acct:[id number] Age/Sex: 68 / F ADM Date: 06/29/24 Loc: RAD Attending Dr: AGGIE DAVIS Ordering Physician: AGGIE DAVIS Date of Service: 06/29/24 Procedure(s): XR elb ow RT min 3V Accession Number(s): [id number] cc: AGGIE DAVIS [address] [address] Patient Name: IDRIS GONZALES MRN: [id number] date: 1955 Sex: F Assigned Patient Location: RAD Current Patient Location: Accession/Order Numb er: [id number] Exam Date: 14:41 Report Date: 06/30/2024 06:57 [...] abnormality. Mild degenerative changes. Electronically authenticated by: SHAHRIAR OWENS Date: 06/30/2024 06:57 Dictated By: Shahriar Owens M.D. Signed By: 06/30/2459 DD/ TD/TT: Special Needs Librarian: [place]-19, Flu A+B IH Reviewed date:11/03/2024 03:06:23 PM Interpretation: Performing Lab: Notes/Report: COVID neg FLU A neg FLU B neg Control present COVID-19, Flu A+B IH Reviewed date:07/17/2024 02:33:39 PM Interpretation: Performing Lab: Notes/Report: COVID - FLU A - FLU B - Control + Reason For Referral Reason hand tremors Diagnosis 1 Tremor (R25.1) Referral Organization [facility] Referring Provider First Name Aggie Referring Provider Last Name Sven Referring Provider [facility] Referred Provider Payton Goodwin Referred Provider Specialty Neurology Referral Priority Routine Reason hx [place], needs new car diologist Diagnosis 1 History of myocardia l infarction (I25.2) Referral Organization [facility] Referring Provider First Name Aggie Referring Provider Last Name Sven Referring Provider [facility] icicarlos enrique Referred Provider Heide Macdonald Referred Provider Specialty Cardiology Referral Priority Routine Diagnosis 1 Kidney mass (N28.89) Referral Organization [facility] Referring Provider First Name Aggie Referring Provider Last Name Sven Referring Provider [facility] icicarlos enrique Referred Provider Deny Leigh Referred Provider Specialty Nephrology Referral Priority Routine Reason uncontrolled diabete s Diagnosis 1 Type 2 diabetes tad itus with other diabetic neurological complication (E11.49) Referral Organization [facility] Referring Provider First Name Aggie Referring Provider Last Name Sven Referring Provider [facility] Referred Provider Mathieu Naqvi Referred Provider Specialty Endocrinolog y Referral Priority Routine Diagnosis 1 Non-healing wound of lower extremity (S81.809A) Referral Organization [facility] Referring Provider First Name Aggie Referring Provider Last Name Sven Referring Provider [facility] tatyana Referred Provider Linda, Charito Car e Referred Provider Specialty Wound Care Referral Priority Routine Diagnosis 1 Kidney mass (N28.89) Referral Organization [facility] Referring Provider First Name Kyle Referring Provider Last Name Bárbara Referring Provider [facility] Referred Provider Kang Alvarez Referred Provider Specialty Urology Referral Priority Routine Reason Stage 4 CKD Diagnosis 1 Stage 4 chronic kidn ey disease (N18.4) Referral Organization [facility] Referring Provider First Name Aggie Referring Provider Last Name Sven Referring Provider [facility] Referred Provider Deny Leigh Referred Provider Specialty Nephrology Referral Priority Routine Reason requesting dry needl ing Diagnosis 1 Type 2 diabetes tad itus with other diabetic neurological complication (E11.49) Referral Organization [facility] Referring Provider First Name Aggie Referring Provider Last Name Sven Referring Provider [facility] Referred Provider [facility], Physical Therap y Referred Provider Specialty Physical The rapist Referral Priority Routine Reason low back pain with s ciatica, worse on right Diagnosis 1 Low back pain with s ciatica (M54.40) Referral Organization [facility] Referring Provider First Name Aggie Referring Provider Last Name Sven Referring Provider [facility] Referred Provider Dustin Sparrow Referred Provider Specialty Pain Medicin e Referral Priority Routine Medications Medication SIG (Take, Route, Frequency, Duration) Notes Start Date End Date Status NovoLIN R FlexPen 100 UNIT/ML sliding sc tobias Injection TID Active NovoLIN N 100 UNIT/ML 24 units Subcutane ous bid Active Ozempic (1 MG/DOSE) 4 MG/3ML 1 mg Subcut aneous weekly for 30 days 01/18/2025 Active Omeprazole 40 MG TAKE 1 CAPSULE ONE TIME DAILY 30 MINUTES BEFORE MORNING MEAL. for 90 Active Dexcom G7 Cardiovascular Tech A ctive Cyclobenzaprine HCl 5 MG 1 tablet Orally BID prn for 10 days 11/06/2024 Active Doxycycline Monohydrate 100 MG 1 capsule Orally BID for 7 days 02/09/2025 Active Nitroglycerin 0.4 MG as directed Sublingual PRN Active Dexcom G7 Sensor Act arina Alendronate Sodium 70 MG TAKE 1 TABLET E VERY WEEK for 84 Active Albuterol Sulfate HFA 108 (9 0 Base) MCG/ACT 2 puff as needed Inhalation every 4 hrs for 30 days 12/11/2023 Active busPIRone HCl 7.5 MG TAKE 1 TABLET TWICE DAILY for 90 Active Aspirin 81 81 MG 1 tablet Orally Once a day Active Advil Cold/Sinus 30-200 MG 1 tablet as n eeded Orally every 6 hrs PRN Active ReliOn Insulin Syringe 31G X 0.3 ML USE 1 ONCE DAILY DIRECTED for 30 Active Potassium Chloride Dipti ER 1 0 MEQ 1 tablet with food Orally Twice a day as needed with Lasix for 30 days 12/04/2024 Active Pen [place] Active predniSONE 20 MG 2 tablet Orally Once a day for 3 days 02/09/2025 Active True Metrix Level 1 Low USE DIRECTED WITH GLUCOSE METER for 90 Active True Metrix Blood Glucose Te st - TEST BLOOD SUGAR THREE TIMES DAILY for 90 Active TRUEplus Lancets 33G - TEST BLOOD SUGAR THREE TIMES DAILY for 90 Active Mupirocin 2 % 1 application Externally Twice a day for 5 days 02/09/2025 Active True Metrix Air Glucose Mete r w/Device USE DIRECTED for 90 Activ e Lincoln & Syringes - as directed Active Simvastatin 40 MG TAKE 1 TABLET EVERY NIGHT for 90 Active Jardiance 25 MG TAKE 1 TABLET EVERY DAY for 90 Active hydroCHLOROthiazide 25 MG TAKE 1 TABLET EVERY MORNING for 90 Active Mupirocin 2 % 1 application Externally Twice a day for 5 days Active Meclizine HCl 25 MG 1 tablet as needed Orally every 12 hrs for 30 days PRN Active Pregabalin 100 MG TAKE 1 CAPSULE TWICE DAILY for 30 days 03/05/2025 Active Fluconazole 150 MG 1 tablet Orally once for 1 days 12/04/2024 Active Furosemide 20 MG TAKE 1 TABLET ONE TI ME DAILY NEEDED for 30 days Active FLUoxetine HCl 20 MG TAKE 1 CAPSULE EVER Y DAY for 90 Active Immunizations Vaccine Route Administration Date Status Comme nts Flu, Fluad (98079) 65 yrs and older, single-dose syringe (8589-0671) IM Intramuscular 05/14/2024 Administered Social History Tobacco [...] Problem Status W/U Status Risk Notes Problem Morbid obesity (disorder) (314267730) Morbid (severe) obesity due to excess calories (E66.01) Active confirmed Problem 54752044 Anxiety disorder, unspecified (F41.9) Active confirmed Problem Hidradenitis suppurativa (21855636) Hidradenitis suppurativa (L73.2) Active confirmed Problem Pain of right shoulder region (finding) (7504913090) Pain in right shoulder (M25.511) Active confirmed Problem Pain in left leg (678285515) Pain in left leg (M79.605) Active confirmed Problem Pain in limb (42247910) Pain in right lower leg (M79.661) Active confirmed Problem Disorder of bone (17974211) Disorder of bone, unspecified (M89.9) Active confirmed Problem Chest pain (98284197) Other chest pain (R07.89) Active confirmed Problem Fatigue (83420639) Fatigue (R53.83) Active conf irmed Problem Hypertension (16943090) Hypertension (I10) Active confirmed Problem Cigarette smoker (68093907) Cigarette smoker (F17.210) Active confirmed Problem Gastroesophageal reflux disease (081002620) GERD (gastroesophagea l reflux disease) (K21.9) Active confirmed Problem Coronary artery disease (60254074) CAD (coronary artery disease) (I25.10) Active confirmed Problem Hypertension (99172832) HTN (hypertension) (I10) Active confirmed Problem Neck pain (01649422) Neck pain (M54.2) Active confirmed Problem Depression (127885142) Depression (F32.9) Active confirmed Problem Peripheral neuropathy (499207859) Peripheral neuropathy (G62.9) Active confirmed Problem Obstructive sleep apnea syndrome (66960016) NATALEE (obstructive sleep apnea) (G47.33) Active confirmed Problem Insomnia (445186745) Insomnia (G47.00) Active confirmed Problem Bilateral lower extremity edema (300648970) Bilateral lower extremity edema (R60.0) Active confirmed Problem Dizziness (684489388) Dizziness (R42) Active confirmed Problem Glaucoma (45054334) Glaucoma (H40.9) Active con firmed Problem Thyroid nodule (803554987) Thyroid nodule (E04.1) Active confirmed Problem Allergic rhinitis (84049248) Allergic rhinitis (J30.9) Active confirmed Problem Hearing loss (54619667) Hearing loss (H91.90) Active confirmed Problem Osteoporosis (40776653) Osteoporosis (M81.0) Active confirmed Problem Pain in left leg (835488437) Left leg pain (M79.605) Active confirmed Problem Neurologic disorder associated with type II diabetes mellitus (704735659) Type 2 diabetes mellitus with other diabetic neurological complication (E11.49) Active confirmed Problem Multinodular goiter (376519103) Multinodular goiter (E04.2) Active confirmed Problem Diabetic retinopathy (7176076) Diabetic retinopathy (E11.319) Active confirmed Problem Dog bite (902469692) Dog bite (W54.0XXA) Active confirmed Problem Daytime somnolence (610224993107) Daytime somnolence (R40.0) Active confirmed Problem Pseudogout (065333942) Pseudogout (M11.80) Active confirmed Problem Sciatica (59745774) Low back kye n with sciatica (M54.40) Active confirmed Problem History of myocardial infarction (014718821) History of myocardial infarction (I25.2) Active confirmed Problem Essential hypertension (56945895) Essential (primary) hypertension (I10) Active confirmed Problem Kidney mass (044680345) Kidney mass (N28.89) Active confirmed Problem Annual wellness visit (394720118715243) Wellness examination (Z00.00) Active confirmed Problem Neurologic disorder associated with diabetes mellitus (555495596) 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) Active confirmed Problem Pain in limb (73781627) Pain in joint of left hand (M79.642) Active confirmed Problem Chronic kidney disease stage 4 (377619988) Stage 4 chronic kidney disease (N18.4) Active confirmed Problem Breast lump (61691260) Lump or mass in breast (N63.0) Active confirmed Problem Obese class II (finding) (362481692156138) Class 2 obesity (E66.9) Active confirmed Problem 276166383 Chronic kidney disease, stage 3b (N18.32) Active confirmed Problem Headache (39013037) Headache, unspecified (R51.9) Active confirmed Problem Chronic cough (60208250) Chronic cough (R05.3) Active confirmed Problem Chronic low back pain (finding) (212183399) Chronic midline low back pain without sciatica (M54.50) Active confirmed Vital Signs Heart Rate 80 /min 07/09/2024 Temperature 98.2 degrees Fahrenheit 2024 Oximetry 94 % 2024 Blood pressure diastolic 70 mm Hg 03/04/2025 Height 60 in 03/04/2025 Blood pressure systolic 124 mm Hg 03/04/2025 Weight 196.4 lbs 03/04/2025 BMI 38.35 kg/m2 03/04/2025 Procedures Procedure Date Ordered Date Performed Result Body Sit e Holter Monitor - 3 days up to 14 days 06/29/2024 N/A Echocardiogram 07/09/2024 N/A *CARDIO Stress Test - Cardiolite 07/09/2024 N/A Encounters Encounter Location Date Provider Diagnosis [address] [place] [address] 06/05/2024 Aggie Sven Cough R05.9 [address] [place] [address] 2024 Aggie Sven Bronchitis J40 [address] [place] [address] 02/09/2025 Aggie Sven Wasp sting T63.461A [facility] [address] [place] [address] 03/04/2025 Aggie Sven Low back pain with sciatica M54.40 [address] [place] [address] 11/05/2024 Aggie Davis 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.49 ; Hypertension I10 and Sacral contusion S30.0XXA [address] [address] 11/19/2024 Aggie Davis 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.49 ; Bilateral lower extremity edema R60.0 and Class 2 obesity E66.[address] [address] 12/04/2024 Aggie Davis Dysuria R30.0 ; Bilateral lower extremity edema R60.0 and Chronic midline low back pain without sciatica M54.[address] [address] 12/22/2024 Aggie Davis Bilateral lower extremity edema R60.0 and Right elbow pain M25.[address] [address] 01/05/2025 Aggie Davis 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.[address] [address] 01/18/2025 Aggie Davis Morbid (severe) obes ity due to excess calories E66.01 ; 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.49 and Left leg pain M79.[address] [address] 07/09/2024 Aggie Davis Essential (primary) hypertension I10 ; Syncope R55 ; Fatigue R53.83 and Dizziness R42 [address] [address] 07/16/2024 Aggie Davis Diabetes mellitus wi th neurological manifestation E11.[address] [address] 07/27/2024 Aggie Davis 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.[address] [address] 08/07/2024 Aggie Davis Right foot pain M79. 671 and Non-healing wound of lower extremity S81.809A [facility] [address] [place] [address] 08/21/2024 Aggie Davis Stage 4 chronic kidn ey disease N18.4 and Diabetes mellitus with neurological manifestation E11.49 [facility] [address] [place] [address] 09/07/2024 Aggie Davis NATALEE (obstructive sle ep apnea) G47.33 ; 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.49 and Stage 4 chronic kidney disease N18.4 [facility] [address] [place] [address] 05/14/2024 Aggie Davis 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.49 ; Tremor R25.1 ; Peripheral neuropathy G62.9 ; Dizziness R42 and Encounter for immunization Z23 [address] [place] [address] 06/29/2024 Aggie Davis History of myocardia l infarction I25.2 ; Daytime somnolence R40.0 ; Syncope R55 ; Right elbow pain M25.521 ; Left hip pain M25.552 and H/O falling Z91.81 [facility] [address] [place] [address] 01/07/2025 Aggie Davis [facility] [address] [place] [address] 01/15/2025 Aggie Davis 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.49 [facility] [address] [place] [address] 02/08/2025 Aggie Davis [facility] [address] [place] [address] 02/09/2025 Aggie Davis [facility] [address] [place] [address] 02/12/2025 Aggie Davis [facility] [address] [place] [address] 03/05/2025 Aggie Davis [facility] [address] [place] [address] 11/16/2024 Aggie Davis Thyroid nodule E04.1 [facility] [address] [place] [address] 11/16/2024 Aggie Davis [facility] [address] [place] [address] 11/27/2024 Aggie Davis [facility] [address] [place] [address] 12/18/2024 Aggie Davis Frequency R35.0 [facility] [address] [place] [address] 12/25/2024 Aggie Davis [facility] [address] [place] [address] 01/06/2025 Aggie Davis [facility] [address] [place] [address] 09/10/2024 Aggie Davis [facility] [address] [place] [address] 11/06/2024 Aggie Davis [facility] [address] [place] [address] 11/09/2024 Aggie Davis [facility] [address] [place] [address] 11/13/2024 Aggie Davis [facility] [address] [place] [address] 11/13/2024 Aggie Davis [facility] [address] [place] [address] 11/16/2024 Aggie Davis [facility] [address] [place] [address] 08/12/2024 Kyle Hoy Kidney mass N28.89 [facility] [address] [place] [address] 08/12/2024 Aggie Davis [facility] [address] [place] [address] 08/16/2024 Kyle Granger [facility] [address] [facility] [place] [address] 08/17/2024 Aggie Davis [facility] [address] [facility] [place] [address] 08/21/2024 [facility] Davis [facility] [facility] [address] [place] [address] 09/07/2024 [facility] [address] [place] [address] 07/19/2024 Kyle Gr[facility] [address] [place] [address] 07/27/2024 [facility] [address] [facility] [place] [address] 07/27/2024 Kyle Granger Pre-procedural examination Z01.818 [facility] [address] [place] [address] 08/07/2024 Aggie Davis Non-healing wound of lower extremity S81.809A [facility] [address] [place] [address] 08/11/2024 [facility] [address] [place] [address] 08/12/2024 [facility] [address] [place] [address] 07/09/2024 [facility] [address] [facility] [place] [address] 07/10/2024 Aggie Davis Kidney mass N28.89 [facility] [address] [place] [address] 07/13/2024 Aggie Davis Thyroid nodule E04.1 and Chronic kidney disease, stage 3b N18.32 [facility] [address] [place] [address] 07/16/2024 Kyle Hoy Kidney mass N28.89 [facility] [address] [place] [address] 07/16/2024 [facility] [address] [place] [address] 07/17/2024 Aggie Davis Kidney mass N28.89 [facility] [address] [facility] [place] [address] 06/08/2024 [facility] [address] [place] [address] 06/18/2024 Aggie Davis Osteoporosis M81.0 [facility] [address] [place] [address] 06/29/2024 Agg[facility] [address] [place] [address] 06/30/2024 [facility] [address] [place] [address] 07/03/2024 Aggie Davis Bronchitis J40 [facility] [address] [place] [address] 07/09/2024 Agg[facility] [address] [place] [address] 04/01/2024 [facility] [address] [place] [address] 04/06/2024 [facility] [address] [place] [address] 04/07/2024 Aggie Davis Assessments Encounter Date Diagnosis (ICD Code) Assessment Notes Treatment Notes Treatment Clinical Notes Section Notes 05/14/2024 Tremor (ICD-10 - R25.1) referral STEFAN 05/14/2024 Type 2 diabetes mellitus with other diabetic neurological complication (ICD-10 - E11.49) 06/05/2024 Cough (ICD-10 - R05.9) smoker fu if not improving 06/29/2024 Daytime somnolence (ICD-10 - R40.0) has apt with sleep clinic 06/29/2024 History of myocardial infarction (ICD-10 - I25.2) 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 UTI, [...] below 65 consecutively. Reviewed with patient the alf effects of Diabetes Mellitus on the body [...] or testing, please call for dosing instructions. 12/22/2024 Bilateral lower extremity edema (ICD-10 - R60.0) improved some has prn lasix and K continue monitor 12/22/2024 Right elbow pain (ICD-10 - M25.521) upcoming surgery ok for continued OWN 01/05/2025 Type 2 diabetes mellitus with other diabetic neurological complication (ICD-10 - E11.49) increase basal insulin check if saw endocrine? increase ozempic dose next? report BS 1 week continue monitor 01/18/2025 Morbid (severe) obesity due to excess calories (ICD-10 - E66.01) work on diet increase dose ozempic 02/09/2025 Wasp sting (ICD-10 - T63.461A) KEnalog 80 close monitoring if redness increasing, swelling worse not improving needs to fu 03/04/2025 Low back pain with sciatica (ICD-10 - M54.40) will increase lyrica dose to 100 mg BID next fill pain man referral in PT and seeing chiro 06/18/2024 Osteoporosis (ICD-10 - M81.0) 07/03/2024 Bronchitis [...] E04.1) hy 12/18/2024 Frequency (ICD-10 - R35.0) 01/15/2025 Type 2 diabetes mellitus with other diabetic neurological complication (ICD-10 - E11.49) 12/04/2024 Dysuria (ICD-10 - R30.0) if sx dont improve notify office needs UA CS 12/04/2024 Bilateral lower extremity edema (ICD-10 - R60.0) 07/09/2024 Fatigue (ICD-10 - R53.83) has sleep study coming up 01/18/2025 Type 2 diabetes mellitus with other diabetic neurological complication (ICD-10 - E11.49) work on diet increase ozempic dose continue monitor bs report 1-2 weeks [facility] 11/19/2024 Class 2 obesity (ICD-10 - E66.9) [...] below 65 consecutively. 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 [...] adds lemon and sugar dont skip meals 01/18/2025 Left leg pain (ICD-10 - M79.605) 12/04/2024 Chronic midline low back pain without sciatica (ICD-10 - M54.50) 06/29/2024 Left hip pain (ICD-10 - M25.552) 05/14/2024 Encounter for immunization (ICD-10 - Z23) 06/29/2024 H/O falling (ICD-10 - Z91.81) 08/07/2024 Other fu when testing , labs [...] CMP (COMP MET WOMACK) w/eGFR CKD-EPI 2024 Insurance Providers Payer Name Payer Address Payer Phone Subscriber Number Group Number Insured Name Patient Relationship to Insured Coverage Start Date Coverage End Date [facility] ADV PLAN [address] [address] [place] [address] [phone] [id number] Idris Holland Self - patient is the insured 3 Medications Administered Medication Instructions Date of Administration Dosage Notes Triamcinolone 40 mg/ml 02/09/2025 80 mg Medical (General) History Medical History History ICD [...] myocardial infarction I25.2 Surgical History Surgery Date(Month/Year) Carpall Tunnel Trigger Finger- Right Hysterectomy Gall Bladder Removal Foot Surgery- Right Knee Surgery- Right Tonsilectomy Trigger Thumb- Right Hospitalization History Reason Date(Month/Year) [facility] 11/20
--- OUTSIDE RECORDS SUMMARY | 2025-03-09 13:53 | XMS_ITS | CCD ---
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 Secondary hyperparathyroidism; Translations: [Secondary hyperparathyroidism of renal origin] 08-31-2024 Chronic Other diseases of kidney and ureters (10 sources) Renal mass; Translations: [Other specified disorders of kidney and ureter] 08-31-2024 Chronic Other diseases of kidney and ureters (12 sources) Other specified disorders of kidney and ureter; Translations: [Unspecified disorder of kidney and ureter] Onset: 5 08-31-2024 Chronic Other diseases of kidney and ureters (12 sources) Secondary hyperparathyroidism of renal origin; Translations: [Secondary hyperparathyroidism (of renal origin)] Onset: 5 08-31-2024 Chronic Other diseases of kidney and ureters (4 sources) Disorder of kidney and ureter, unspecified; Translations: [DISORDER KIDNEY AND URETER UNS] Onset: 3 Episodic Other diseases of kidney and ureters (4 sources) Cyst of kidney 09-07-2024 Episodic Other diseases of kidney and ureters (4 sources) Kidney lesion 09-07-2024 Episodic Other diseases of veins and lymphatics (10 sources) Disorder of vein of lower extremity; Translations: [Venous insufficiency (chronic) (peripheral)] 08-19-2024 Episodic Other diseases of veins and lymphatics (10 sources) Vascular insufficiency; Translations: [Venous insufficiency (chronic) (peripheral)] 08-19-2024 Episodic Other ear and sense organ disorders (20 sources) Chronic non-infective otitis externa; Translations: [Other otitis externa, right ear] Onset: 4 Resolved: 4 03-25-2024 Chronic Other injuries and conditions due to external causes (14 sources) Closed injury of head; Translations: [Unspecified injury of head, initial encounter] 04-20-2023 Episodic Other nervous system disorders (20 sources) Chronic pain; Translations: [Other chronic pain] Onset: 4 Resolved: 4 03-25-2024 Chronic Other nervous system disorders (4 sources) Numbness of hand; Translations: [Anesthesia of skin] 08-20-2024 Episodic Other nervous system disorders (1 source) Anesthesia of skin; Translations: [Disturbance of skin sensation] 01-04-2025 Episodic Other non-traumatic joint disorders (1 source) [...] Chronic Other nutritional; endocrine; and metabolic disorders (4 sources) Severe obesity; Translations: [Class 3 severe obesity due to excess calories with serious comorbidity and body mass index (BMI) of 40.0 to 44.9 in adult (CMS/[facility])] 08-18-2024 Chronic Other nutritional; endocrine; and metabolic disorders (20 sources) History of hypercholesterolemia; Translations: [Personal history of other endocrine, nutritional and metabolic disease] Onset: 4 Resolved: 4 05-02-2016 Episodic Other nutritional; endocrine; and metabolic disorders (3 sources) Hyperuricemia; Translations: [Hyperuricemia without signs of inflammatory arthritis and tophaceous disease] 11-23-2024 Episodic Other nutritional; endocrine; and metabolic disorders (3 sources) Hyperuricemia without signs of inflammatory arthritis and tophaceous disease; Translations: [Other abnormal blood chemistry] 11-23-2024 Episodic Other skin disorders (10 sources) Hemosiderin pigmentation of lower 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; Translations: [Other specified disorders of pigmentation] 08-19-2024 Episodic Other skin disorders (8 sources) Other specified disorders of pigmentation; Translations: [Dyschromia, unspecified] 08-19-2024 Episodic Other upper respiratory disease (20 sources) Chronic pharyngitis; Translations: [Chronic pharyngitis] Onset: 4 Resolved: 4 03-25-2024 Chronic Other upper respiratory infections (7 sources) Pharyngitis 11-28-2020 Episodic Phlebitis; thrombophlebitis and thromboembolism (1 source) Acute embolism and thrombosis of unspecified deep veins of unspecified lower extremity; Translations: [AC EMBO THROMB UNS DP VN UNS LW EXT] Onset: 3 Episodic Residual codes; unclassified (7 sources) Chronic back pain 11-30-2020 Episodic Residual codes; unclassified (7 sources) Insomnia 11-28-2020 Episodic Residual codes; unclassified (12 sources) Localized edema; Translations: [Edema] Onset: 3 Episodic Residual codes; unclassified (10 sources) Pain; Translations: [Pain, unspecified] 08-19-2024 Episodic Residual codes; unclassified (10 sources) Peripheral edema; Translations: [Localized edema] 08-19-2024 Episodic Residual codes; unclassified (8 sources) Pain, unspecified; Translations: [Generalized pain] 08-19-2024 [...] Onset: 7 Resolved: 4 03-25-2024 Episodic Other diseases of veins and lymphatics (17 sources) Venous insufficiency (chronic) (peripheral); Translations: [Venous [...] 4 03-25-2024 Episodic Other nervous system disorders (10 sources) Idiopathic peripheral neuropathy; Translations: [Hereditary and [...] Test Name Value Interpretation Reference Range Facility Reminderson 02-25-2025 Reminders Reminders From: Yajaira Lopez To: EU - Recalls Boss; Sent: 09/07/2024 10:39:37 EST Show up: 01/26/2025 10:39:00 EDT Subject: renal US Due Date/Time: 02/22/2025 10:39:00 EDT Reminder/Recall Pt needs sched for renal US prior to 03/08/25 She needs a Sat/ at [facility] Order placed at [facility]. Will monitor for results. Normal [facility] Office Visiton 01-28-2025 Follow-up visit [id number] Virgne Harris 1955 F Date Provider Department Center 01/28/2025 [id number] SILVESTRE CARD Dina Dejesus Family History Problem Relation Age of Onset Heart failure Mother Heart failure Father Heart failure Paternal Grandmother Family Status - Relation Status Age at Mother Father Paternal Grandmother Level of Service:22986 MO OFFICE/OUTPATIENT ESTABLISHED LOW MDM 20 MIN Normal [facility] Orders Onlyon 01-27-2025 Orders Only [id number] Virgen Harris 1955 F Date Provider Department Center 01/27/2025 [id number], HISTORICAL CARD Dina Hos Family History Problem Relation Age of Onset Heart failure Mother Heart failure Father Heart failure Paternal Grandmother Family Status - Relation Status Age at Mother Father Paternal Grandmother Normal [facility] CHEMISTRYOrdered By: Oliver GUALLPA User on 12-25-2024 Glucose [Mass/Vol] 217 mg/dL High 55 - 99 mg/dL [facility] P[place] Subsection Comment on above: Result Comment: No C overage Given Cleaned Meter POC Username RODRIGUEZ HAYLEE Invalid Interpretation Code [facility] P[facility] Subsection Sodium [Moles/Vol] 877028877907 mmol/L Invalid Interpretation Code [facility] Subsection Sodium [Moles/Vol] [id number] mmol/L Invalid Interpretation Code [facility] Subsection Glucose [Mass/Vol] 330 mg/dL High 55 - 99 mg/dL [facility] P[facility] Subsection Comment on above: Result Comment: Karen alexis Meter POC Username CLAUDINE TERAN Invalid Interpretation Code [facility] P[facility] Subsection Sodium [Moles/Vol] [id number] mmol/L Invalid Interpretation Code [facility] P[facility] Subsection Sodium [Moles/Vol] [id number] mmol/L Invalid Interpretation Code [facility] P[facility] Subsection CHEMISTRYOrdered By: Cinthia Mccarty on 12-25-2024 HbA1c (Bld) [Mass fraction] 8.4 % High <=5.9% [facility] ChemAutoSS Capillary Glucose POCon 11-28 Glucose [Mass/Vol] 217 mg/dL High 55-99 [facility] Comment on above: Result Comment: No C overage Given Cleaned Meter Performed By: #### 2 [id number] #### [facility] [address] [place] [address] Glucose [Mass/Vol] 330 mg/dL High 55-99 [facility] Comment on above: Result Comment: Karen alexis Meter Performed By: #### 2 [id number] #### [facility] [address] [place] [address] [facility] CAPILLARY GLUCOSE POCon 12-25-2024 Glucose [Mass/Vol] 217 mg/dL High 55 - 99 mg/dL [facility] Comment on above: No Coverage Given Cleaned Meter Interpretation and review of laboratory results Abnormal [facility] Original [facility]ing [id number]-25-2024 Interpretation and review of laboratory results Abnormal [facility] Original Ordering Provider: DO Birce Estrella [facility] [id number] 12-25-2024 HbA1c (Bld) [Mass fraction] 8.4 % High <=5.9 [facility] Comment on above: Performed By: #### 7 [id number] #### [facility] [address] [place] [address] Urine Cultureon 12-22-2024 Bacteria identified Cx Nom (U) 15,000 colonies/ml mixed bacterial skin contaminants 2 Days PERFORMED BY: [address] [address] PATHOLOGIST ASSISTANT AUDITOR LI GARZON M.D. Normal [facility] Comment on above: Performed By: #### U JAMSHID, MG, PTH, CBCNO #### [facility] [address] [place] [address] [facility] Urine cultureOrdered By: Alma Davis on 12-22-2024 Bacteria identified Cx Nom (U) Urine culture [place] Glucose (Bld) [Mass/Vol]Orde red By: Lisa Koehler on 11-16-2024 Glucose Blood, POC 203 mg/dL [facility] - Hematology and Cell countson 11-16-2024 HbA1c (Bld) [Mass fraction] 6.6 % [facility] No Panel InformationOrdered By: Lisa Koehler on 11-16-2024 [facility] Urine Cultureon 11-14-2024 Bacteria identified Cx Nom (U) >100,000 colonies/ml mixed bacterial skin contaminants 2 Days PERFORMED BY: [address] [address] PATHOLOGIST ASSISTANT AUDITOR NISHANT MORLEY M.D. Normal [facility] Comment on above: Performed By: #### U JAMSHID, MG, PTH, CBCNO #### [facility] [address] [place] [address] [facility] Urine cultureOrdered By: Alma Davis on 11-14-2024 Bacteria identified Cx Nom (U) Urine culture [place] MR ELBOW RIGHT WO IV CONTRAS [place] [...] bacterial skin contaminants 2 Days PERFORMED BY: [place] [address] PATHOLOGIST ASSISTANT AUDITOR NISHANT MORLEY M.D. Normal [facility] Comment on above: Performed By: #### C UU #### [address] Urine cultureOrdered By: Evens Nair on 10-30-2024 Bacteria identified Cx Nom (U) Urine culture [place] Alanine aminotransferase [En zymatic activity/volume] in Serum or PlasmaOrdered By: Ponce Silvestre on 10-13-2024 ALT [Catalytic activity/Vol] Alanine aminotransferase [Enzymatic activity/volume] in Serum or Plasma [place] Albumin [Mass/volume] in Ser um or Plasma by Bromocresol green (BCG) dye binding methoOrdered By: Ponce Silvestre on 10-13-2024 Albumin BCG dye [Mass/Vol] Albumin [Mass/volume] in Serum or Plasma by Bromocresol green (BCG) dye binding metho 3.5-5.7 [place] Alkaline phosphatase [Enzyma tic activity/volume] in Serum or PlasmaOrdered By: Ponce Silvestre on 10-13-2024 ALP [Catalytic activity/Vol] Alkaline phosphatase [Enzymatic activity/volume] in Serum or Plasma 34-104 [place] Appearance of UrineOrdered B y: Dinah Sepulveda on 10-13-2024 Appearance (U) Urine appearance Abnormal Clear [facility] Aspartate aminotransferase [ Enzymatic activity/volume] in Serum or PlasmaOrdered By: Ponce Silvestre on 10-13-2024 AST [Catalytic activity/Vol] Aspartate aminotransferase [Enzymatic activity/volume] in Serum or Plasma 13-39 [place] Bacteria [Presence] in Urine by AutomatedOrdered By: Dinah Sepulveda on 10-13-2024 Bacteria Auto Ql (U) Bacteria [Presence] in Urine by Automated None Seen [place] Bilirubin Test strip Ql (U)O rdered By: Dinah Sepulveda on 10-13-2024 Bilirubin Ql (U) Bilirubin.total [Presence] in Urine by Test strip Negative [place] Bilirubin.direct [Mass/volum e] in Serum or PlasmaOrdered By: Ponce Silvestre on 10-13-2024 Bilirubin.direct [Mass/Vol] Bilirubin.direct [Mass/volume] in Serum or Plasma 0.03-0.18 [place] Bilirubin.total [Mass/volume ] in Serum or PlasmaOrdered By: Ponce Silvestre on 10-13-2024 Bilirubin [Mass/Vol] Bilirubin.total [Mass/volume] in Serum or Plasma 0.3-1.0 [place] C-peptide measurementOrdered By: Mathieu Naqvi on 10-13-2024 C-Peptide 1.4 ng/mL 1.1-4.4 [place] Comment on above: C-Peptide reference interval is for fasting patients.Performed at: [facility] [id number] Director: Kilo Masterson PhD, Phone: [phone] Result Comment: C-Pe ptide reference interval is for fasting patients. Performed at: [facility] [id number] Child Development Director: Kilo Masterson PhD, Phone: [phone] PERFORMED BY: [place] [address] PATHOLOGIST ASSISTANT AUDITOR NISHANT MORLEY M.D. Performed By: #### L IPID #### [place] [address] [place] #### CPEP #### [facility] , Calcium [Mass/volume] in Ser um or PlasmaOrdered By: Mathieu Naqvi on 10-13-2024 Calcium [Mass/Vol] Calcium [Mass/volume ] in Serum or Plasma 8.6-10.3 [place] Carbon dioxide, total [Moles /volume] in Serum or PlasmaOrdered By: Mathieu Naqvi on 10-13-2024 CO2 [Moles/Vol] Carbon dioxide, tota l [Moles/volume] in Serum or Plasma 21.0-31.0 [place] Chloride [Moles/volume] in S yoav or PlasmaOrdered By: Mathieu Naqvi on 10-13-2024 Chloride [Moles/Vol] Chloride [Moles/volume] in Serum or Plasma 98-107 [place] Cholesterol [Mass/volume] in Serum or PlasmaOrdered By: Mathieu Naqvi on 10-13-2024 Cholesterol [Mass/Vol] Cholesterol [Mass/volume] in Serum or Plasma Low 140-200 [place] Comment on above: Chol less than 200 m g/dl low riskChol 201-239 mg/dl borderline riskChol 240 mg/dl and greater high risk Cholesterol in HDL [Mass/vol ume] in Serum or PlasmaOrdered By: Mathieu Naqvi on 10-13-2024 Cholesterol in HDL [Mass/Vol] Serum or plasma high density lipoprotein (HDL) cholesterol measurement 23-92 [place] Comment on above: HDL CHOL ATP-III CLA SSIFICATION Cardiovascular RiskHDL > or equal to 60 mg/dL LOWHDL < 40 mg/dL HIGH Cholesterol in LDL Calc [Mas s/Vol]Ordered By: Mathieu Naqvi on 10-13-2024 Cholesterol in LDL [Mass/Vol] Cholesterol in LDL [Mass/volume] in Serum or Plasma by calculation 0-100 [place] Comment on above: LDL ATP III CLASSIFI CATIONLDL less than 100 mg/dL OptimalLDL 100-129 mg/dL Near or above optimalLDL 130-159 mg/dL Borderline highLDL 160-189 mg/dL HighLDL greater than 189 mg/dL Very high Cholesterol in VLDL Calc [Ma ss/Vol]Ordered By: Mathieu Naqvi on 10-13-2024 Cholesterol in VLDL [Mass/Vol] Cholesterol in VLDL [Mass/volume] in Serum or Plasma by calculation [place] Color Auto (U)Ordered By: Ab elias Sepulveda on 10-13-2024 Color (U) Color of Urine by Auto Yellow [facility] Creatinine [Mass/volume] in Serum or PlasmaOrdered By: Mathieu Naqvi on 10-13-2024 Creatinine [Mass/Vol] Creatinine [Mass/volume] in Serum or Plasma High 0.60-1.20 [place] Creatinine [Mass/volume] in UrineOrdered By: Mathieu Naqvi on 10-13-2024 Creatinine (U) [Mass/Vol] Creatinine [Mass/volume] in Urine [place] Comment on above: No reference range e stablished Dipstick and Microscopicon 0 10-13-2024 Appearance (U) Cloudy Critically abnormal Clear [facility] Comment on above: Order Comment: Name Collection Type:: Clean-Voided Midstream Performed By: #### U JAMSHID, MG, PTH, CBCNO #### [facility] [address] [place] [address] [place] Bacteria,Urine None Seen Normal None Seen [facility] Comment on above: Order Comment: Name Collection Type:: Clean-Voided Midstream Performed By: #### U JAMSHID, MG, PTH, CBCNO #### [facility] [address] [place] [id number] [place] Bilirubin,Urine Negative Normal Negative [facility] Comment on above: Order Comment: Name Collection Type:: Clean-Voided Midstream Performed By: #### U JAMSHID, MG, PTH, CBCNO #### [facility] [address] [place] [id number] [place] Color (U) Light-Yellow Normal Yellow [facility] Comment on above: Order Comment: Name Collection Type:: Clean-Voided Midstream Performed By: #### U JAMSHID, MG, PTH, CBCNO #### [address] Glucose Ql (U) 1000 mg/dL High Normal [facility] Comment on above: Order Comment: Name Collection Type:: Clean-Voided Midstream Performed By: #### U JAMSHID, MG, PTH, CBCNO #### [address] Hyaline Casts,Urine None Normal 0-8 [facility] Comment on above: Order Comment: Name Collection Type:: Clean-Voided Midstream Performed By: #### U JAMSHID, MG, PTH, CBCNO #### [address] Ketones Ql (U) Negative Normal Negative [facility] Comment on above: Order Comment: Name Collection Type:: Clean-Voided Midstream Performed By: #### U JAMSHID, MG, PTH, CBCNO #### [address] Leukocyte esterase Test strip Ql (U) 3+ High Negative [facility] Comment on above: Order Comment: Name Collection Type:: Clean-Voided Midstream Performed By: #### U JAMSHID, MG, PTH, CBCNO #### [address] Mucus,Urine Rare Normal [facility] Comment on above: Order Comment: Name Collection Type:: Clean-Voided Midstream Result Comment: PERF ORMED BY: [place] [address] PATHOLOGIST ASSISTANT AUDITOR NISHANT MORLEY M.D. Performed By: #### U JAMSHID, MG, PTH, CBCNO #### [address] Nitrite,Urine Negative Normal Negative [facility] Comment on above: Order Comment: Name Collection Type:: Clean-Voided Midstream Performed By: #### U JAMSHID, MG, PTH, CBCNO #### [address] Occult Blood,Urine Negative Normal Negative [facility] Comment on above: Order Comment: Name Collection Type:: Clean-Voided Midstream Performed By: #### U JAMSHID, MG, PTH, CBCNO #### [address] pH (U) 6.5 [pH] Normal 5.0-9.0 [facility] Comment on above: Order Comment: Name Collection Type:: Clean-Voided Midstream Performed By: #### U JAMSHID, MG, PTH, CBCNO #### [address] Protein,Urine Negative Normal Negative [facility] Comment on above: Order Comment: Name Collection Type:: Clean-Voided Midstream Performed By: #### U JAMSHID, MG, PTH, CBCNO #### [address] RBC,Urine 1-2 Normal 0-4 [facility] Comment on above: Order Comment: Name Collection Type:: Clean-Voided Midstream Performed By: #### U JAMSHID, MG, PTH, CBCNO #### [address] Specificy [place],Urine 1.013 Normal 1.001-1.030 [facility] Comment on above: Order Comment: Name Collection Type:: Clean-Voided Midstream Performed By: #### U JAMSHID, MG, PTH, CBCNO #### [address] Squamous Epithelial Cell,Urine 10-19 High 0-2 [facility] Comment on above: Order Comment: Name Collection Type:: Clean-Voided Midstream Performed By: #### U JAMSHID, MG, PTH, CBCNO #### [address] Urobilinogen,Urine Normal Normal Normal [facility] Comment on above: Order Comment: Name Collection Type:: Clean-Voided Midstream Performed By: #### U JAMSHID, MG, PTH, CBCNO #### [facility] [address] WBC,Urine 20-49 High 0-4 [facility] Comment on above: Order Comment: Name Collection Type:: Clean-Voided Midstream Performed By: #### U JAMSHID, MG, PTH, CBCNO #### [facility] [address] Epithelial cells.squamous [# /area] in Urine sediment by Automated countOrdered By: Dinah Sepulveda on 10-13-2024 Epithelial cells.squamous Auto (Urine sed) [#/Area] Epithelial cells.squamous [#/area] in Urine sediment by Automated count High 0-2 [place] Erythrocyte distribution wid th Auto (RBC) [Ratio]Ordered By: Dinah Sepulveda on 10-13-2024 Erythrocyte distribution width (RBC) [Ratio] Erythrocyte distribution width [Ratio] by Automated count 11.9-15.3 [place] Erythrocytes [#/area] in Uri ne sediment by Automated countOrdered By: Dinah Sepulveda on 10-13-2024 RBC Auto (Urine sed) [#/Area] Erythrocytes [#/area] in Urine sediment by Automated count 0-4 [place] Globulin Calc (S) [Mass/Vol] Ordered By: Ponce Silvestre on 10-13-2024 Globulin (S) [Mass/Vol] Serum globulin measurement by calculation (mass/volume) [place] Glucose [Mass/volume] in Ser um or PlasmaOrdered By: Mathieu Naqvi on 10-13-2024 Glucose [Mass/Vol] Glucose [Mass/volume ] in Serum or Plasma High 70-100 [place] Comment on above: ADA recommended refe rence [...] in Urine by Test strip High Normal [place] Hematocrit Auto (Bld) [Volum e fraction]Ordered By: Dinah Sepulveda on 10-13-2024 Hematocrit (Bld) [Volume fraction] Hematocrit [Volume Fraction] of Blood by Automated count 34.0-46.4 [place] Hemoglobin Test strip Ql (U) Ordered By: Dinah Sepulveda on 10-13-2024 Hemoglobin Ql (U) Hemoglobin [Presence ] in Urine by Test strip Negative [place] Hemoglobin [Mass/volume] in BloodOrdered By: Dinah Sepulveda on 10-13-2024 Hemoglobin (Bld) [Mass/Vol] Hemoglobin [Mass/volume] in Blood 11.8-15.4 [place] Hemogram CBC Without Diffon 10-13-2024 Erythrocyte distribution width (RBC) [Ratio] 15.3 % Normal 11.9-15.3 [facility] Comment on above: Performed By: #### U JAMSHID, MG, PTH, CBCNO #### [address] Hematocrit (Bld) [Volume fraction] 37.7 % Normal 34.0-46.4 [facility] Comment on above: Performed By: #### U JAMSHID, MG, PTH, CBCNO #### [address] Hemoglobin (Bld) [Mass/Vol] 12.7 g/dL Normal 11.8-15.4 [facility] Comment on above: Performed By: #### U JAMSHID, MG, PTH, CBCNO #### [address] MCH (RBC) [Entitic mass] 29.3 pg Normal 24.7-34.3 [facility] Comment on above: Performed By: #### U JAMSHID, MG, PTH, CBCNO #### [address] MCV (RBC) [Entitic vol] 87.1 fL Normal 80-100 [facility] Comment on above: Performed By: #### U JAMSHID, MG, PTH, CBCNO #### [address] Mean Corpuscular HGB Conc 33.6 g/dL Normal 32.0-35.0 [facility] Comment on above: Performed By: #### U JAMSHID, MG, PTH, CBCNO #### [address] Platelet mean volume (Bld) [Entitic vol] 9.9 fL Normal 6.3-10.7 [facility] Comment on above: Result Comment: PERF ORMED BY: [place] [address] PATHOLOGIST ASSISTANT AUDITOR NISHANT MORLEY M.D. Performed By: #### U JAMSHID, MG, PTH, CBCNO #### [address] Platelets (Bld) [#/Vol] 192 10*3/uL Normal 150-450 [facility] Comment on above: Performed By: #### U JAMSHID, MG, PTH, CBCNO #### [address] RBC (Bld) [#/Vol] 4.33 10*6/uL Normal 3.60-5.00 [facility] Comment on above: Performed By: #### U JAMSHID, MG, PTH, CBCNO #### [address] WBC (Bld) [#/Vol] 8.4 10*3/uL Normal 3.8-11.6 [facility] Comment on above: Performed By: #### U JAMSHID, MG, PTH, CBCNO #### [address] Hepatic Panelon 10-13-2024 Albumin [Mass/Vol] 3.8 g/dL Normal 3.5-5.7 [facility] Comment on above: Performed By: #### H EPATIC #### [address] Albumin/Globulin [Mass ratio] 1.5 {ratio} Normal [facility] Comment on above: Performed By: #### H EPATIC #### [address] ALP [Catalytic activity/Vol] 99 U/L Normal 34-104 [facility] [facility] Comment on above: Result Comment: PERF ORMED BY: [place] [address] PATHOLOGIST ASSISTANT AUDITOR NISHANT MORLEY M.D. Performed By: #### H EPATIC #### [address] ALT [Catalytic activity/Vol] 11 U/L Normal 7-52 [facility] Comment on above: Performed By: #### H EPATIC #### [address] AST [Catalytic activity/Vol] 14 U/L Normal 13-39 [facility] Comment on above: Performed By: #### H EPATIC #### [address] Bilirubin [Mass/Vol] 0.4 mg/dL Normal 0.3-1.0 [facility] Comment on above: Performed By: #### H EPATIC #### [address] Bilirubin,Indirect 0.3 mg/dL Normal [facility] Comment on above: Performed By: #### H EPATIC #### [address] Bilirubin.indirect [Mass/Vol] 0.10 mg/dL Normal 0.03-0.18 [facility] Comment on above: Performed By: #### H EPATIC #### [address] Globulin (S) [Mass/Vol] 2.6 g/dL Normal [facility] Comment on above: Performed By: #### H EPATIC #### [address] Protein [Mass/Vol] 6.4 g/dL Normal 6.4-8.9 [facility] Comment on above: Performed By: #### H EPATIC #### [address] Hyaline casts [#/area] in Ur ine sediment by Automated countOrdered By: Dinah Sepulveda on 10-13-2024 Hyaline casts Auto (Urine sed) [#/Area] Hyaline casts [#/area] in Urine sediment by Automated count 0-8 [place] Ketones Test strip Ql (U)Ord ered By: Dinah Sepulveda on 10-13-2024 Ketones Ql (U) Ketones [Presence] i n Urine by Test strip Negative [place] Leukocyte esterase [Presence ] in Urine by Test stripOrdered By: Dinah Sepulveda on 10-13-2024 Leukocyte esterase Test strip Ql (U) Leukocyte esterase [Presence] in Urine by Test strip High Negative [place] Leukocytes [#/area] in Urine sediment by Automated countOrdered By: Dinah Sepulveda on 10-13-2024 WBC Auto (Urine sed) [#/Area] Leukocytes [#/area] in Urine sediment by Automated count High 0-4 [place] Leukocytes [#/volume] correc graham for nucleated erythrocytes in Blood by Automated counOrdered By: Dinah Sepulveda on 10-13-2024 WBC corrected for nucl RBC Auto (Bld) [#/Vol] Leukocytes [#/volume] corrected for nucleated erythrocytes in Blood by Automated coun 3.8-11.6 [place] Lipid Panelon 10-13-2024 Cholesterol [Mass/Vol] 95 mg/dL Low 140-200 [facility] Comment on above: Result Comment: Chol less than 200 mg/dl low risk Chol 201-239 mg/dl borderline risk Chol 240 mg/dl and greater high risk Performed By: #### L IPID #### [facility] [address] [place] [address] [place] #### CPEP #### [facility] , Cholesterol in HDL [Mass/Vol] 28 mg/dL Normal 23-92 [facility] Comment on above: Result Comment: HDL CHOL ATP-III CLASSIFICATION Cardiovascular Risk HDL > or equal to 60 mg/dL LOW HDL < 40 mg/dL HIGH Performed By: #### L IPID #### [facility] [address] [place] [address] [place] #### CPEP #### [facility] , Cholesterol.total/Vivian sterol in HDL [Mass ratio] 3.4 {ratio} Normal <5.0 [facility] Comment on above: Result Comment: PERF ORMED BY: [place] [address] PATHOLOGIST ASSISTANT AUDITOR NISHANT MORLEY M.D. Performed By: #### L IPID #### [facility] [address] [place] [address] [place] #### CPEP #### [facility] , LDL Cholesterol,Calculated 48 mg/dL Normal 0-100 [facility] Comment on above: Result Comment: LDL ATP III CLASSIFICATION LDL less than 100 mg/dL Optimal LDL 100-129 mg/dL Near or above optimal LDL 130-159 mg/dL Borderline high LDL 160-189 mg/dL High LDL greater than 189 mg/dL Very high Performed By: #### L IPID #### [place] [address] [place] #### CPEP #### [facility] , Triglyceride w/Reflex 97 mg/dL Normal 0-149 [facility] Comment on above: Result Comment: TRIG ATP III CLASSIFICATION TRIG less than 150 mg/dL Normal TRIG 150-199 mg/dL Borderline high TRIG 200-500 mg/dL High TRIG greater than 500 mg/dL Very high Standard traceable to the Center for Disease Conrtrol and Prevention (CDC) test method. Performed By: #### L IPID #### [place] [address] [place] #### CPEP #### [facility] , VLDL CHOLESTEROL 19 mg/dL Normal [facility] Comment on above: Performed By: #### L IPID #### [place] [address] [place] #### CPEP #### [facility] , MCH Auto (RBC) [Entitic mass ]Ordered By: Dinah Sepulveda on 10-13-2024 MCH (RBC) [Entitic mass] MCH [Entitic mass] by Automated count 24.7-34.3 [place] MCHC Auto (RBC) [Mass/Vol]Or dered By: Dinah Sepulveda on 10-13-2024 MCHC (RBC) [Mass/Vol] MCHC [Mass/volume] by Automated count 32.0-35.0 [place] MCV Auto (RBC) [Entitic vol] Ordered By: Dinah Sepulveda on 10-13-2024 MCV (RBC) [Entitic vol] MCV [Entitic vol ume] by Automated count 80-100 [place] Magnesiumon 10-13-2024 Magnesium [Mass/Vol] 2.1 mg/dL Normal 1.9-2.7 [facility] Comment on above: Performed By: #### U JAMSHID, MG, PTH, CBCNO #### [facility] [address] [place] [address] Magnesium [Mass/volume] in S yoav or PlasmaOrdered By: Dinah Sepulveda on 10-13-2024 Magnesium [Mass/Vol] Magnesium [Mass/volume] in Serum or Plasma 1.9-2.7 [place] MicroAlb Creat Ratio,Uon Albumin DL <= 20 mg/L (U) [Mass/Vol] 0.7 mg/dL Normal 0.0-1.8 [facility] Comment on above: Performed By: #### U JAMSHID, MG, PTH, CBCNO #### [facility] [address] [place] [address] Microalbumin/Creatinine Ratio 9.2 mg/g Normal 0.0-30.0 [facility] Comment on above: Result Comment: 30-3 00 mg/g indicates an increased risk for diabetic nephropathy. Greater than 300 mg/g is consistent with clinical nephropathy. (Am. J. Kidney Disease 1995, 25:107) PERFORMED BY: [place] [address] PATHOLOGIST ASSISTANT AUDITOR NISHANT MORLEY M.D. Performed By: #### U JAMSHID, MG, PTH, CBCNO #### [facility] [address] [place] [id number] [facility] Microalbumin [Mass/volume] i n UrineOrdered By: Mahtieu Naqvi on 10-13-2024 Albumin DL <= 20 mg/L (U) [Mass/Vol] Microalbumin [Mass/volume] in Urine 0.0-1.8 [place] Mucus [Presence] in Urine by AutomatedOrdered By: Dinah Sepulveda on 10-13-2024 Mucus Auto Ql (U) Mucus [Presence] in Urine by Automated [place] Nitrite Test strip Ql (U)Ord ered By: Dinah Sepulveda on 10-13-2024 Nitrite Ql (U) Nitrite [Presence] i n Urine by Test strip Negative [place] No Panel InformationOrdered By: Mathieu Naqvi on 10-13-2024 Estimated GFR (CKD-EPI) 34.741 mL/Min [place] [facility] Creatinine Clearance (Chem N/A [place] Parathyrin.intact [Mass/volu me] in Serum or PlasmaOrdered By: Dinah Sepulveda on 10-13-2024 Parathyrin.intact [Mass/Vol] Parathyrin.intact [Mass/volume] in Serum or Plasma High 12-88 [place] Parathyroid Hormone Intacton 10-13-2024 Parathyroid Hormone Intact 224.1 pg/mL High 12-88 [facility] Comment on above: Result Comment: PERF ORMED BY: [place] [address] PATHOLOGIST ASSISTANT AUDITOR NISHANT MORLEY M.D. Performed By: #### U JAMSHID, MG, PTH, CBCNO #### [facility] [address] [place] [id number] [facility] Phosphate [Mass/volume] in S yoav or PlasmaOrdered By: Mathieu Naqvi on 10-13-2024 Phosphate [Mass/Vol] Phosphate [Mass/volume] in Serum or Plasma 2.5-4.5 [place] Platelet mean volume Auto (B ld) [Entitic vol]Ordered By: Dinah Sepulveda on 10-13-2024 Platelet mean volume (Bld) [Entitic vol] Platelet mean volume [Entitic volume] in Blood by Automated count 6.3-10.7 [place] Platelets Auto (Bld) [#/Vol] Ordered By: Dinah Sepulveda on 10-13-2024 Platelets (Bld) [#/Vol] Platelets [#/vol ume] in Blood by Automated count 150-450 [place] Potassium [Moles/volume] in Serum or PlasmaOrdered By: Mathieu Naqvi on 10-13-2024 Potassium [Moles/Vol] Potassium [Moles/volume] in Serum or Plasma 3.5-5.1 [place] Protein Creat Ratio Ur Rando mon 10-13-2024 Creatinine, Urine (Random) 76.00 mg/dL Normal [facility] Comment on above: Result Comment: No r eference range established Performed By: #### U JAMSHID, MG, PTH, CBCNO #### [facility] [address] Protein (U) [Mass/Vol] 17 mg/dL High 0-9 [facility] Comment on above: Performed By: #### U JAMSHID, MG, PTH, CBCNO #### [facility] [address] Urine Protein/Creatinine Ratio 224 mg/g{Cre} High 0-200 [facility] Comment on above: Result Comment: PERF ORMED BY: [place] [address] PATHOLOGIST ASSISTANT AUDITOR NISHANT MORLEY M.D. Performed By: #### U JAMSHID, MG, PTH, CBCNO #### [facility] [address] Protein Test strip (U) [Mass /Vol]Ordered By: Dinah Sepulveda on 10-13-2024 Protein (U) [Mass/Vol] Protein [Mass/vol ume] in Urine by Test strip Negative [place] Protein [Mass/volume] in Ser um or PlasmaOrdered By: Ponce Silvestre on 10-13-2024 Protein [Mass/Vol] Protein [Mass/volume ] in Serum or Plasma 6.4-8.9 [place] Protein [Mass/volume] in Uri neOrdered By: Dinah Sepulveda on 10-13-2024 Protein (U) [Mass/Vol] Protein [Mass/vol ume] in Urine High 0-9 [place] RBC Auto (Bld) [#/Vol]Ordere d By: Dinah Sepulveda on 10-13-2024 RBC (Bld) [#/Vol] Erythrocytes [#/volume] in Blood by Automated count 3.60-5.00 [place] Renal Function Panelon 10-13 Albumin [Mass/Vol] 3.8 g/dL Normal 3.5-5.7 [facility] Comment on above: Performed By: #### V [id number], RENAL #### [address] Anion gap [Moles/Vol] 11.8 mmol/L Normal 6.0-15.0 [facility] Comment on above: Performed By: #### V [id number], RENAL #### [place] [address] [place] Calcium [Mass/Vol] 8.8 mg/dL Normal 8.6-10.3 [facility] Comment on above: Performed By: #### V [id number], RENAL #### [place] [address] [place] Chloride [Moles/Vol] 106 mmol/L Normal 98-107 [facility] Comment on above: Performed By: #### V [id number], RENAL #### [facility] [address] [place] [id number] [place] CO2 [Moles/Vol] 27.1 mmol/L Normal 21.0-31.0 [facility] Comment on above: Performed By: #### V [id number], RENAL #### [facility] [address] [place] [id number] [place] Creatinine [Mass/Vol] 1.59 mg/dL High 0.60-1.20 [facility] Comment on above: Performed By: #### V [id number], RENAL #### [facility] [address] [place] [address] Estimated GFR 34.741 mL/Min Normal [facility] Comment on above: Performed By: #### V [id number], RENAL #### [facility] [address] Glucose [Mass/Vol] 108 mg/dL High 70-100 [facility] Comment on above: Result Comment: [place] Glucose Reference Range is dependent on time and content of last meal. Glucose of more than 200 mg/dL in a nonstressed, ambulatory subject supports the diagnosis of Diabetes Mellitus. ADA recommended reference range Performed By: #### V [id number], RENAL #### [address] Phosphate [Mass/Vol] 3.4 mg/dL Normal 2.5-4.5 [facility] Comment on above: Performed By: #### V [id number], RENAL #### [place] [address] [place] Potassium [Moles/Vol] 3.9 mmol/L Normal 3.5-5.1 [facility] Comment on above: Performed By: #### V [id number], RENAL #### [place] [address] [place] Sodium [Moles/Vol] 141 mmol/L Normal 136-145 [facility] Comment on above: Performed By: #### V [id number], RENAL #### [place] [address] [place] Urea nitrogen [Mass/Vol] 24 mg/dL Normal 7-25 [facility] Comment on above: Performed By: #### V [id number], RENAL #### [place] [address] [place] Serum or plasma albumin/glob ulin mass ratioOrdered By: Ponce Silvestre on 10-13-2024 Albumin/Globulin [Mass ratio] Serum or plasma albumin/globulin mass ratio [place] Serum or plasma anion gap de terminationOrdered By: Mathieu Naqvi on 10-13-2024 Anion gap [Moles/Vol] Serum or plasma an ion gap determination 6.0-15.0 [place] Serum or plasma non-glucuron idated bilirubin measurement (mass/volume)Ordered By: Ponce Silvestre on 10-13-2024 Bilirubin.indirect [Mass/Vol] Serum or plasma non-glucuronidated bilirubin measurement (mass/volume) [place] Serum or plasma total choles terol/high density lipoprotein (HDL) cholesterol mass ratOrdered By: Mathieu Naqvi on 10-13-2024 Cholesterol.total/Vivian sterol in HDL [Mass ratio] Serum or plasma total cholesterol/high density lipoprotein (HDL) cholesterol mass rat <5.0 [place] Sodium [Moles/volume] in Ser um or PlasmaOrdered By: Mathieu Naqvi on 10-13-2024 Sodium [Moles/Vol] Sodium [Moles/volume ] in Serum or Plasma 136-145 [place] Specific gravity Test strip (U) [Rel density]Ordered By: Dinah Sepulveda on 10-13-2024 Specific gravity (U) [Rel density] Specific gravity of Urine by Test strip 1.001-1.030 [place] Triglyceride [Mass/volume] i n Serum or PlasmaOrdered By: Mathieu Naqvi on 10-13-2024 Triglyceride [Mass/Vol] Triglyceride [Mass/volume] in Serum or Plasma 0-149 [place] Comment on above: TRIG ATP III CLASSIF ICATIONTRIG less than 150 mg/dL NormalTRIG 150-199 mg/dL Borderline highTRIG 200-500 mg/dL High TRIG greater than 500 mg/dL Very highStandard traceable to the Center for Disease Conrtrol and Prevention (CDC) test method. Urate [Mass/volume] in Serum or PlasmaOrdered By: Dinah Sepulveda on 10-13-2024 Urate [Mass/Vol] Urate [Mass/volume] in Serum or Plasma High 2.3-6.6 [place] Urea nitrogen [Mass/volume] in Serum or PlasmaOrdered By: Mathieu Naqvi on 10-13-2024 Urea nitrogen [Mass/Vol] Urea nitrogen [Mass/volume] in Serum or Plasma 7-25 [place] Uric Acidon 10-13-2024 Urate [Mass/Vol] 7.7 mg/dL High 2.3-6.6 [facility] Comment on above: Result Comment: PERF ORMED BY: [place] [address] PATHOLOGIST ASSISTANT AUDITOR NISHANT MORLEY M.D. Performed By: #### U JAMSHID, MG, PTH, CBCNO #### [facility] [address] [place] [id number] [facility] Urine Cultureon 10-13-2024 Bacteria identified Cx Nom (U) >100,000 colonies/ml mixed bacterial skin contaminants 2 Days PERFORMED BY: [place] [address] PATHOLOGIST ASSISTANT AUDITOR NISHANT MORLEY M.D. Normal [facility] Comment on above: Performed By: #### U JAMSHID, MG, PTH, CBCNO #### [place] [id number] [facility] Urine cultureOrdered By: Summer Sepulveda on 10-13-2024 Bacteria identified Cx Nom (U) Urine culture [place] Urine microalbumin/creatinin e mass ratioOrdered By: Mathieu Naqvi on 10-13-2024 Albumin/Creatinine DL <= 20 mg/L (U) [Mass ratio] Urine microalbumin/creatinin e mass ratio 0.0-30.0 [place] Comment on above: 30-300 mg/g indicate s an increased risk for diabetic nephropathy. Greater than 300 mg/g is consistent with clinical nephropathy. (Am. J. Kidney Disease 1995, 25:107) Urine protein/creatinine rat ioOrdered By: Dinah Sepulveda on 10-13-2024 Protein/Creatinine (U) [Ratio] Urine protein/creatinine ratio High 0-200 [place] Urobilinogen Test strip (U) [Mass/Vol]Ordered By: Dinah Sepulveda on 10-13-2024 Urobilinogen (U) [Mass/Vol] Urobilinogen [Mass/volume] in Urine by Test strip Normal [place] Vitamin D 25 Hydroxy Totalon 10-13-2024 Vitamin D 25 Hydroxy Total 15.0 ng/mL Low 30-100 [facility] Comment on above: Result Comment: [place] MIN D STATUS 25(OH)VITAMIN D RANGE (ng/mL) Deficient <20 Insufficient 20 to <30 Sufficient 30 to 100 Reference: Luann Almanza, Merline FERRER, et al. Evaluation,treatment, and prevention of vitamin D deficiency; an Endocrine Society clinical practice guideline. JCEM. 2010; 96(7):1911-. PERFORMED BY: [place] [address] PATHOLOGIST ASSISTANT AUDITOR NISHANT MORLEY M.D. Performed By: #### V [id number], RENAL #### [address] Vitamin D+Metabolites [Mass/ volume] in Serum or PlasmaOrdered By: Mathieu Naqvi on 10-13-2024 Vitamin D+Metabolites [Mass/Vol] Vitamin D+Metabolites [Mass/volume] in Serum or Plasma Low 30-100 [place] Comment on above: VITAMIN D STATUS 25( [place])VITAMIN D RANGE (ng/mL) Deficient <20 Insufficient 20 to <30Sufficient 30 to 100Reference: Luann Almanza, Merline FERRER, et al. Evaluation,treatment, and prevention of vitamin D deficiency; an Endocrine Society clinical practice guideline. JCEM. 2010; 96(7):1911-30. pH Test strip (U)Ordered By: Dinah Sepulveda on 10-13-2024 pH (U) pH of Urine by Test strip 5.0-9.0 [place] MR head/brain wo/w conon MR head/brain wo/w con [facility] [place] [address] [place] [address] MRI Report Signed Patient: Virgen Gonzales MR# : [id number] : 1955 Acct:[id number] Age/Sex: 69 / F ADM Date: 09/14/24 Loc: [facility] Room: Type: [facility] Attending Dr: Olman De La Rosa DO [...] Jacinto Gallagher M.D.09/14/2024 5:21 PM Dictation Location: [place] [address] Transcribed By: [facility] 09/14/24 1721 Dictated By: Jacinto Gallagher II, MD 09/14/24 171 Signed By: 09/14/24 1721 Normal [facility] Magnetic resonance imaging r eportOrdered By: Jacinto Gallagher on 09-14-2024 Study report [facility] [place] [address] [place] [address] MRI Report Signed Patient: Virgen Gonzales MR#: [id number] : 1955 Acct:[id number] Age/Sex: 69 / F ADM Date: 5 [facility] Type: [facility] Attending Dr: Olman De La Rosa DO [...] Jacinto Gallagher M.D.09/14/2024 5:21 PM Dictation Location: [place] [address] Transcribed By: [facility] 09/14/24 172 Dictated By: Jacinto Gallagher II, MD 09/14/24 171 Signed By: 09/14/24 172 [place] Work Phone: X-ray reportOrdered By: Gareth Horn on 09-14-2024 Study report [facility] [place] [address] [place] [address] XRay Report Signed Patient: Virgen Gonzales MR#: [id number] : 1955 Acct:[id number] Age/Sex: 69 / F ADM Date: 5 Loc: [facility] Room: Type: REG CLI Attending Dr: Aretha Valadez DISBURSEMENT CLERK Copies to: Aretha Valadez APRN~ Ordering Provider: [...] Jose Horn M.D.09/14/2024 8:40 PM Dictation Location: [place] [address] Transcribed By: [facility] 09/14/242039 Dictated By: Jose Horn DO 09/14/242034 Signed By: 09/14/242039 [place] XR tibia fibula RT 2V*on XR tibia fibula RT 2V* [facility] [place] [address] [place] [address] XRay Report Signed Patient: Virgen Gonzales MR# : [id number] : 1955 Acct:[id number] Age/Sex: 69 / F ADM Date: 09/14/24 Loc: [facility] Room: Type: REG CLI Attending Dr: Aretha Valadez DISBURSEMENT CLERK Copies to: Aretha Valadez APRN Ordering Provider: [...] Jose Horn M.D.09/14/2024 8:40 PM Dictation Location: [place] [address] Transcribed By: [facility] 09/14/242039 Dictated By: Jose Horn DO 09/14/242034 Signed By: 09/14/242039 Normal [facility] Ambulatory Visit Summaryon 0 09-07-2024 Ambulatory Visit Summary Ambulatory Visit Summary VIRGEN GONZALES :1955 Visit Date:09/07/2024 Ambulatory Visit Instructions Your Diagnosis Bilateral renal cysts Tests Performed US Renal -- Results Pending -- Please visit your patient portal for your results or contact your primary care physician. Your Care Team Attending Physician - KARYN WRAY, Kang Morelos Primary Care Physician - AGGIE DAVIS CNP [...] Kang BOSS MD Where: [facility] [address] [place] [address]- You Need to Schedule the Following Appointments Follow Up with Kang BOSS MD, URL When: In 6 months Comments: w/TOMEKA Where: [facility] [address], [place] [address]- Medications What How Much When Instructions Unchanged [...] (Difficulty lobo (more content not included)... Normal [facility] Ambulatory Visit Summary Ambulatory Visit Summary VIRGEN [...] Kang BOSS MD Where: [facility] [address] [place] [address]- You Need to Schedule the Following Appointments Follow Up with Kang BOSS MD, URL When: In 6 months Comments: w/TOMEKA Where: [facility] [address], [place] [address]- Medications What How Much When Instructions Unchanged [...] (Difficulty lobo (more content not included)... 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 [facility] XR Elbow - right 3 Viewson 0 08-31-2024 Imaging Result: Three views of the right elbow, AP/lateral/oblique, taken today and saved to the permanent medical record. Joint spaces are preserved, no swelling in the olecranon bursa, no spurring at the olecranon, no fat pad sign, no bony lesions [facility] Radiology Study observation (narrative) [facility] Office Visiton 08-20-2024 Follow-up visit [id number] Virgen Harris Ramiro 1955 F Date Provider Department Center 08/20/2024 271-PONCE SILVESTRE CARD [facility] Family History Problem Relation Age of Onset Heart failure Mother Heart failure Father Heart failure Paternal Grandmother Family Status - Relation Status Age at Mother Father Paternal Grandmother Level of Service:62873 [place] OFFICE/OUTPATIENT NEW LOW MDM 30 MINUTES Normal [facility] C Urineon 07-09-2024 Bacteria identified Cx Nom [...] Locations R1: This test was performed at: [facility], [address] [place] [address], [id number] , [place], Normal [facility] Comment on above: Performed By: #### 2 [id number] #### [facility] [address] [place] [address] ED Note-Physicianon 07-09-20 ED Note-Physician ED Note-Physician [...] syncopal episode at work. Patient works at [employer] and states all of a sudden she [...] if appl (more content not included)... Normal [facility] Comment on above: Result Comment: Elec tronically Signed By: Kelly Smith PA-C\.br\Date and Time Signed: 07/08/24 02:10 EST\.br\Electronically Co-Signed By: Ean Azevedo M.D.\.br\Date and Time Co-Signed: 07/09/24 07:05 EST ABO/Rh History Checkon 07-08 ABO/Rh History Check Patient discharged prior Normal [facility] Comment on above: Performed By: #### 1 [id number] #### [facility] [address] [place] [address] CT Abdomen/Pelvis w/ Contras ton 07-08-2024 CT [...] 300 Contrast amount in ml's: [address] [facility] [address] Chest w/ Contraston 07-08 CT Chest [...] as reasonably achievable. Report Ordering Provider: Kelly Simth FINAL REPORT Dictated: 07/08/2024 8:54 am Imer Montague MD Signed (Electronic Signature): 07/08/2024 8:54 am Signed by: Imer Montague MD Transcribed by: JOSH Technologist: YONIS Technical Comments GFR (mL/min/1/73m2) n/a-trauma Contrast: Isovue 300 Contrast amount in ml's: 130 Normal [facility] CT Head or Brain w/o Contras ton [...] MD Transcribed by: JOSH Technologist: YONIS Normal [facility] CT Spine Cervical w/o Contra ston 07-08-2024 [...] MD Transcribed by: JOSH Technologist: YONIS Normal [facility] ABO/Rhon 07-07-2024 ABO/Rh Positive Invalid Interpretation Code [facility] Comment on above: Performed By: #### 2 [id number] #### [facility] [address] [place] [address] ABSCon 07-07-2024 ABSC Gel Interp Negative Normal [facility] Comment on above: Performed By: #### 1 [id number] #### [facility] [address] [place] [address] B hCG Qualon 07-07-2024 Beta HCG ( test) Ql Negative Normal [facility] Comment on above: Performed By: #### 2 [id number] #### [facility] [address] [place] [address] BLOOD BANKOrdered By: Willard Greenwood on 07-07-2024 ABO/Rh Interp Positive Invalid Interpretation Code [facility] BB Subsection ABSC Gel Interp Negative (07/07/24 6:48 PM) Normal [facility] BB Subsection BMPon 07-07-2024 Anion gap [Moles/Vol] 11 mmol/L Normal 6-16 [facility] Comment on above: Performed By: #### 2 [id number] #### [facility] [address] [place] [address] Calcium [Mass/Vol] 9.1 mg/dL Normal 8.9-11.1 [facility] Comment on above: Performed By: #### 2 [id number] #### [facility] [address] [place] [address] Chloride [Moles/Vol] 104 mmol/L Normal 101-111 [facility] Comment on above: Performed By: #### 2 [id number] #### [facility] [address] [place] [address] CO2 [Moles/Vol] 26 mmol/L Normal 21-31 [facility] Comment on above: Performed By: #### 2 [id number] #### [facility] [address] [place] [address] Creatinine [Mass/Vol] 1.8 mg/dL High 0.5-1.3 [facility] Comment on above: Performed By: #### 2 [id number] #### [facility] [address] [place] [address] Glucose [Mass/Vol] 154 mg/dL Normal 55-199 [facility] Comment on above: Performed By: #### 2 [id number] #### [facility] [address] [place] [address] Potassium [Moles/Vol] 3.6 mmol/L Normal 3.5-5.3 [facility] Comment on above: Performed By: #### 2 [id number] #### [facility] [address] [place] [address] Sodium [Moles/Vol] 137 mmol/L Normal 135-145 [facility] Comment on above: Performed By: #### 2 [id number] #### [facility] [address] [place] [address] Urea nitrogen [Mass/Vol] 23 mg/dL High 5- [facility] Comment on above: Performed By: #### 2 [id number] #### [facility] [address] [place] [address] Urea nitrogen/Creatinine [Mass ratio] 13 No Units Normal 10-20 [facility] Comment on above: Performed By: #### 2 [id number] #### [facility] [address] [place] [address] Blood Bank ID#on 07-07-2024 BBID# [id number] Invalid Interpretation Code [facility] Comment on above: Performed By: #### 1 [id number] #### [facility] [address] [place] [address] CBC w/ Auto Diffon 4 Basophils/100 WBC (Bld) 0.6 % Normal 0.0-2.0 [facility] Comment on above: Result Comment: Amy ection date/time has been modified to: 18:23:00. Previous collection date/time: 18:45:00. Performed By: #### 2 [id number] #### [facility] [address] [place] [address] Basophils/Leukocytes Auto (Bld) [Pure # fraction] 0.1 E9/L Normal 0.0-0.2 [facility] Comment on above: Result Comment: Amy ection date/time has been modified to: 18:23:00. Previous collection date/time: 18:45:00. Performed By: #### 2 [id number] #### [facility] [address] [place] [address] Eosinophils (Bld) [#/Vol] 0.3 E9/L Normal 0.0-0.5 [facility] Comment on above: Result Comment: Amy ection date/time has been modified to: 18:23:00. Previous collection date/time: 18:45:00. Performed By: #### 2 [id number] #### [facility] [address] [place] [address] Eosinophils/100 WBC (Bld) 3.1 % Normal 0.0-8.0 [facility] Comment on above: Result Comment: Amy ection date/time has been modified to: 18:23:00. Previous collection date/time: 18:45:00. Performed By: #### 2 [id number] #### [facility] [address] [place] [address] Erythrocyte distribution width (RBC) [Ratio] 15.1 % High 10.9-14.2 [facility] Comment on above: Result Comment: Amy ection date/time has been modified to: 18:23:00. Previous collection date/time: 18:45:00. Performed By: #### 2 [id number] #### [facility] [address] [place] [address] Hematocrit (Bld) [Volume fraction] 38.3 % Normal 34.0-46.0 [facility] Comment on above: Result Comment: Amy ection date/time has been modified to: 18:23:00. Previous collection date/time: 18:45:00. Performed By: #### 2 [id number] #### [facility] [address] [place] [address] Hemoglobin (Bld) [Mass/Vol] 12.7 g/dL Normal 12.0-16.0 [facility] Comment on above: Result Comment: Amy ection date/time has been modified to: 18:23:00. Previous collection date/time: 18:45:00. Performed By: #### 2 666000 #### [facility] [address] [place] [address] Lymphocytes (Bld) [#/Vol] 2.4 E9/L Normal 1.0-4.0 [facility] Comment on above: Result Comment: Amy ection date/time has been modified to: 18:23:00. Previous collection date/time: 18:45:00. Performed By: #### 2 [id number] #### [facility] [address] [place] [address] Lymphocytes/100 WBC (Bld) 26.6 % Normal 14.0-50.0 [facility] Comment on above: Result Comment: Amy ection date/time has been modified to: 18:23:00. Previous collection date/time: 18:45:00. Performed By: #### 2 [id number] #### [facility] [address] [place] [address] MCH (RBC) [Entitic mass] 29.9 pg Normal 27.0-34.0 [facility] Comment on above: Result Comment: Amy ection date/time has been modified to: 18:23:00. Previous collection date/time: 18:45:00. Performed By: #### 2 149396 #### [facility] [address] [place] [address] MCHC (RBC) [Mass/Vol] 33.1 g/dL Normal 31.4-36.0 [facility] Comment on above: Result Comment: Amy ection date/time has been modified to: 18:23:00. Previous collection date/time: 18:45:00. Performed By: #### 2 [id number] #### [facility] [address] [place] [address] MCV (RBC) [Entitic vol] 90.2 fL Normal 80.0-100.0 [facility] Comment on above: Result Comment: Amy ection date/time has been modified to: 18:23:00. Previous collection date/time: 18:45:00. Performed By: #### 2 092542 #### [facility] [address] [place] [address] Monocytes (Bld) [#/Vol] 0.5 E9/L Normal 0.2-1.0 [facility] Comment on above: Result Comment: Amy ection date/time has been modified to: 18:23:00. Previous collection date/time: 18:45:00. Performed By: #### 2 [id number] #### [facility] [address] [place] [address] Neutrophils (Bld) [#/Vol] 5.8 E9/L Normal 2.0-7.5 [facility] Comment on above: Result Comment: Amy ection date/time has been modified to: 18:23:00. Previous collection date/time: 18:45:00. Performed By: #### 2 [id number] #### [facility] [address] [place] [address] Neutrophils/100 WBC (Bld) 64.2 % Normal 36.0-75.0 [facility] Comment on above: Result Comment: Amy ection date/time has been modified to: 18:23:00. Previous collection date/time: 18:45:00. Performed By: #### 2 586247 #### [facility] [address] [place] [address] Platelet mean volume (Bld) [Entitic vol] 10.1 fL Normal 6.4-10.8 [facility] Comment on above: Result Comment: Amy ection date/time has been modified to: 18:23:00. Previous collection date/time: 18:45:00. Performed By: #### 2 [id number] #### [facility] [address] [place] [address] Platelets (Bld) [#/Vol] 183.0 E9/L Normal 150.0-500.0 [facility] Comment on above: Result Comment: Amy ection date/time has been modified to: 18:23:00. Previous collection date/time: 18:45:00. Performed By: #### 2 667122 #### [facility] [address] [place] [address] RBC (Bld) [#/Vol] 4.2 E12/L Low 4.3-5.9 [facility] Comment on above: Result Comment: Amy ection date/time has been modified to: 18:23:00. Previous collection date/time: 18:45:00. Performed By: #### 2 [id number] #### [facility] [address] [place] [address] WBC corrected for nucl RBC Auto (Bld) [#/Vol] 9.1 E9/L Normal 4.0-11.0 [facility] Comment on above: Result Comment: Amy ection date/time has been modified to: 18:23:00. Previous collection date/time: 18:45:00. Performed By: #### 2 644004 #### [facility] [address] [place] [address] Basophils/100 WBC (Bld) 0.6 % Normal 0.0-2.0 [facility] Comment on above: Performed By: #### 2 998462 #### [facility] [address] [place] [address] Basophils/Leukocytes Auto (Bld) [Pure # fraction] 0.1 E9/L Normal 0.0-0.2 [facility] Comment on above: Performed By: #### 2 [id number] #### [facility] [address] [place] [address] Eosinophils (Bld) [#/Vol] 0.3 E9/L Normal 0.0-0.5 [facility] Comment on above: Performed By: #### 2 [id number] #### [facility] [address] [place] [address] Eosinophils/100 WBC (Bld) 3.1 % Normal 0.0-8.0 [facility] Comment on above: Performed By: #### 2 [id number] #### [facility] [address] [place] [address] Erythrocyte distribution width (RBC) [Ratio] 15.1 % High 10.9-14.2 [facility] Comment on above: Performed By: #### 2 986197 #### [facility] [address] [place] [address] Hematocrit (Bld) [Volume fraction] 38.3 % Normal 34.0-46.0 [facility] Comment on above: Performed By: #### 2 [id number] #### [facility] [address] [place] [address] Hemoglobin (Bld) [Mass/Vol] 12.7 g/dL Normal 12.0-16.0 [facility] Comment on above: Performed By: #### 2 [id number] #### [facility] [address] [place] [address] Lymphocytes (Bld) [#/Vol] 2.4 E9/L Normal 1.0-4.0 [facility] Comment on above: Performed By: #### 2 628115 #### [facility] [address] [place] [address] Lymphocytes/100 WBC (Bld) 26.6 % Normal 14.0-50.0 [facility] Comment on above: Performed By: #### 2 [id number] #### [facility] [address] [place] [address] MCH (RBC) [Entitic mass] 29.9 pg Normal 27.0-34.0 [facility] Comment on above: Performed By: #### 2 [id number] #### [facility] [address] [place] [address] MCHC (RBC) [Mass/Vol] 33.1 g/dL Normal 31.4-36.0 [facility] Comment on above: Performed By: #### 2 [id number] #### [facility] [address] [place] [address] MCV (RBC) [Entitic vol] 90.2 fL Normal 80.0-100.0 [facility] Comment on above: Performed By: #### 2 036898 #### [facility] [address] [place] [address] Monocytes (Bld) [#/Vol] 0.5 E9/L Normal 0.2-1.0 [facility] Comment on above: Performed By: #### 2 [id number] #### [facility] [address] [place] [address] Neutrophils (Bld) [#/Vol] 5.8 E9/L Normal 2.0-7.5 [facility] Comment on above: Performed By: #### 2 844321 #### [facility] [address] [place] [address] Neutrophils/100 WBC (Bld) 64.2 % Normal 36.0-75.0 [facility] Comment on above: Performed By: #### 2 551101 #### [facility] [address] [place] [address] Platelet mean volume (Bld) [Entitic vol] 10.1 fL Normal 6.4-10.8 [facility] Comment on above: Performed By: #### 2 639274 #### [facility] [address] [place] [address] Platelets (Bld) [#/Vol] 183.0 E9/L Normal 150.0-500.0 [facility] Comment on above: Performed By: #### 2 893462 #### [facility] [address] [place] [address] RBC (Bld) [#/Vol] 4.2 E12/L Low 4.3-5.9 [facility] Comment on above: Performed By: #### 2 426778 #### [facility] [address] [place] [address] WBC corrected for nucl RBC Auto (Bld) [#/Vol] 9.1 E9/L Normal 4.0-11.0 [facility] Comment on above: Performed By: #### 2 648978 #### [facility] [address] [place] [address] CHEMISTRYOrdered By: SYSTEM SYSTEM on 07-07-2024 Amphetamines [...] Myoglobin [Mass/Vol] 128 ng/mL High <=69ng/mL Nick nidia Chem Potassium [Moles/Vol] 3.6 mmol/L Normal 3.5 [...] Total CK 149 Int._Unit/L Normal 14-261 [facility] Comment on above: Performed By: #### 2 265609 #### [facility] [address] [place] [address] COAGULATIONOrdered By: Leslie Chavez on 07-07-2024 aPTT Coag (PPP) [Time] 31.1 s Normal 25.1 - 36.5 second(s) [facility] Auto Coag Comment on above: Interpretive Data: [...] the same coagulation reagent and instrumentation as [facility]. Currently there are no coagulation studies available worldwide for children to 14 days, and no normal ranges. Heparin therapeutic range (represented by Anti-Factor Xa activity of 0.2 - 0.4 U/mL) corresponds to PTT of 56.6 - 109.0 sec. INR Coag (PPP) [Relative time] 0.92 {INR} Invalid Interpretation Code [facility] Auto Coag Comment on above: Interpretive Data: I NR results are specifically intended to assess patients stabilized on long-term Anticoagulation therapy suggested INR s Less Intensive Anticoagulation 2.0 3.0 Conventional Range 3.0 4.5 PT Coag (PPP) [Time] 10.3 s Normal 9.4 - 1 2.5 second(s) [facility] Auto Coag Comment on above: Interpretive Data: [...] the same coagulation reagent and instrumentation as [facility]. Currently there are no coagulation studies available worldwide for children to 14 days, and no normal ranges. ED Clinical Summaryon 2023 ED Clinical Summary ED Clinical Summary [address], [place] [address] ED Clinical Summary Person Information Name: VIRGEN GONZALES [facility] Age: 68 Years : 1955 Sex: Female Language: Swedish PCP: AGGIE DAVIS CNP Marital Status: Visit [...] 22:29:17 07/07/2024 22:29:17 ADDRESS: [id number] [place] [id number] PHYS DOC NOTES: MEDICAL INFORMATION: Prescriptions Given: New Medications [facility] 1987, [address] [place], [place] [id number], [phone] cephalexin (cephalexin 500 mg Cap) 1 Capsules [...] EDUCATION INFORMATION: Instructions: Urinary Tract Infection, Adult, Sohh-kj-Ekjg; Syncope, Adult, Jxmf-da-Pmto; Head Injury, Adult, Rggw-nv-Wrbg; Contusion, Lyit-ah-Hajd Follow up: With: Address: When: AGGIE DAVIS [address] [place] [id number] [phone] Business (more content not included)... Normal [facility] ED Patient Summaryon 024 ED Patient Summary ED Patient Summary [place] [id number] Patient Discharge Instructions Person Information Name: VIRGEN GONZALES Age: 68 Years Arrival Date: 07/07/2024 18:16:48 Discharge Diagnosis: 1:Contusion of occipital region of scalp; 2:Syncope and collapse; 3:Acute lower urinary tract infection Primary Care Physician: AGGIE DAVIS CNP Provider Information Primary Provider: Tiny Fallon DO Advanced Supervisor Assembly:None The exam and treatment you received in the Emergency Department were for an urgent problem and are not intended as complete care. It is important that you follow up with a doctor, nurse practitioner, or physician???s senior office support assistant sosa for ongoing care. If your symptoms become [...] With: Address: When: AGGIE Meeks[address] [place] [phone] Business (1) In 3 days 07/10/2024 In the event that this physician does not participate in your insurance network, please consult with your insurance company to find a nearby participating provider. Patient Education Materials: Urinary Tract Infection, Adult, Kdpz-ot-Dbcj; Syncope, Adult, Vers-zc-Sgah; Head Injury, Adult, Hyhi-bo-Cpfy; Contusion, Gswe-gh-Vgov A MESSAGE TO ALL PATIENTS REGARDING OPIOIDS PRESCRIPTION OPIOIDS: WHAT YOU NEED TO KNOW Prescription opioids can be used to help relieve ohgcvbsh-zu-cfuzuy pain and are often prescribed following a [...] (www.fda.gov/Drugs/Res ourcesFo (more content not included)... Normal [facility] Ethanolon 07-07-2024 Ethanol Lvl <10 Normal <=11 [facility] Comment on above: Performed By: #### 2 [id number] #### [facility] [address] [place] [address] HEMATOLOGYOrdered By: SYSTEM SYSTEM on 07-07-2024 Basophils/100 [...] 07-07-2024 Albumin [Mass/Vol] 3.9 g/dL Normal 3.3-5.0 [facility] Comment on above: Performed By: #### 2 [id number] #### [facility] [address] [place] [address] Albumin/Globulin (S) [Mass conc ratio] 1.4 Normal 1.1-2.2 [facility] Comment on above: Performed By: #### 2 [id number] #### [facility] [address] [place] [address] ALP [Catalytic activity/Vol] 112 Int._Unit/L High 21-98 [facility] Comment on above: Performed By: #### 2 444881 #### [facility] [address] [place] [address] ALT No additional P-5'-P [Catalytic activity/Vol] 11 Int._Unit/L Normal 6-46 [facility] Comment on above: Performed By: #### 2 653508 #### [facility] [address] [place] [address] AST [Catalytic activity/Vol] 13 Int._Unit/L Normal 5-43 [facility] Comment on above: Performed By: #### 2 [id number] #### [facility] [address] [place] [address] Bilirubin [Mass/Vol] 0.4 mg/dL Normal 0.0-1.1 [facility] Comment on above: Performed By: #### 2 543334 #### [facility] [address] [place] [address] Bilirubin.direct [Mass/Vol] 0.1 mg/dL Normal 0.0-0.4 [facility] Comment on above: Performed By: #### 2 957648 #### [facility] [address] [place] [address] Bilirubin.indirect [Mass or moles/Vol] 0.3 mg/dL Normal 0.1-0.9 [facility] Comment on above: Performed By: #### 2 [id number] #### [facility] [address] [place] [address] Globulin (S) [Mass/Vol] 2.8 g/dL Normal 1.4-4.0 [facility] Comment on above: Performed By: #### 2 326486 #### [facility] [address] [place] [address] Protein [Mass/Vol] 6.7 g/dL Normal 6.0-7.8 [facility] Comment on above: Performed By: #### 2 136209 #### [facility] [address] [place] [address] Lactic Acidon 07-07-2024 Lactic Acid Lvl 0.9 mmol/L Normal 0.5-2.2 [facility] Comment on above: Performed By: #### 2 762041 #### [facility] [address] [place] [address] Lipase Levelon 07-07-2024 Lipase [Catalytic activity/Vol] 22 U/L Normal 13-58 [facility] Comment on above: Performed By: #### 2 198804 #### [facility] [address] [place] [address] Magnesiumon 07-07-2024 Magnesium [Mass/Vol] 2.2 mg/dL Normal 1.3-2.4 [facility] Comment on above: Performed By: #### 2 066479 #### [facility] [address] [place] [address] Myoglobinon 07-07-2024 Myoglobin [Mass/Vol] 128 ng/mL High <=69 [facility] Comment on above: Performed By: #### 2 [id number] #### [facility] [address] [place] [address] PT & PTTon 07-07-2024 aPTT Coag (PPP) [Time] 31.1 second(s) Normal 25.1-36.5 [facility] Comment on above: Result Comment: Para meter [...] the same coagulation reagent and instrumentation as [facility]. Currently there are no coagulation studies available worldwide for children to 14 days, and no normal ranges. Heparin therapeutic range (represented by Anti-Factor Xa activity of 0.2 - 0.4 U/mL) corresponds to PTT of 56.6 - 109.0 sec. Performed By: #### 1 [id number] #### [facility] [address] [place] [address] INR Coag (PPP) [Relative time] 0.92 {INR} Invalid Interpretation Code [facility] Comment on above: Result Comment: INR results are specifically intended to assess patients stabilized on long-term Anticoagulation therapy suggested INR???s ???Less Intensive Anticoagulation??? 2.0 ??? 3.0 Conventional Range 3.0 ??? 4.5 Performed By: #### 1 [id number] #### [facility] [address] [place] [address] PT Coag (PPP) [Time] 10.3 second(s) Normal 9.4-12.5 [facility] Comment on above: Result Comment: 15 d [...] the same coagulation reagent and instrumentation as [facility]. Currently there are no coagulation studies available worldwide for children to 14 days, and no normal ranges. Performed By: #### 1 [id number] #### [facility] [address] [place] [address] SEROLOGYOrdered By: Gerri Chavez on 07-07-2024 Beta HCG ( test) Ql Negative (07/07/24 6:23 PM) Normal [facility] Man Sero Troponinon 07-07-2024 Troponin HS 10.70 pg/mL Normal 10.10-27.10 [facility] Comment on above: Result Comment: The 95% CI (Confidence Interval) PPV (Positive Predictive Value) for myocardial infarction in females is 38 pg/mL, in males 51 pg/mL. The results should be used in conjunction with clinical conditions of myocardial infarction. (Access High Sensitivity Troponin I Instructions For Use, [place], February 2018) Performed By: #### 2 [id number] #### [facility] [address] [place] [address] U Drug Screenon 07-07-2024 Amphetamines Screen method >1000 ng/mL Ql (U) Negative Normal NEGATIVE [facility] Comment on above: Result Comment: Nega tive Cutoff: <1000 ng/mL Performed By: #### 2 076659 #### [facility] [address] [place] [address] Barbiturates Screen Ql (U) Negative Normal NEGATIVE [facility] Comment on above: Result Comment: Nega tive Cutoff: <200 ng/mL Performed By: #### 2 [id number] #### [facility] [address] [place] [address] Benzodiazepines Ql (U) Negative Normal NEGATIVE [facility] Comment on above: Result Comment: Nega tive Cutoff: <200 ng/mL Performed By: #### 2 912155 #### [facility] [address] [place] [address] Cannabinoids Screen Ql (U) Negative Normal NEGATIVE [facility] Comment on above: Result Comment: Nega tive Cutoff: <50 ng/mL Performed By: #### 2 [id number] #### [facility] [address] [place] [address] Cocaine Ql (U) Negative Normal NEGATIVE [facility] Comment on above: Result Comment: Nega tive Cutoff: <300 ng/mL Performed By: #### 2 938015 #### [facility] [address] [place] [address] Opiates Screen Ql (U) Negative Normal NEGATIVE [facility] Comment on above: Result Comment: Nega tive Cutoff: <300 ng/mL Performed By: #### 2 [id number] #### [facility] [address] [place] [address] Phencyclidine Screen method >25 ng/mL Ql (U) Negative Normal NEGATIVE [facility] Comment on above: Result Comment: Nega tive Cutoff: <25 ng/mL These drug screen results are to be used for medical (i.e., treatment) purposes only. Unconfirmed drug screening results must not be used for non-medical purposes (e.g., employment testing, legal testing). Performed By: #### 2 [id number] #### [facility] [address] [place] [address] U Fentanyl Negative Normal NEGATIVE [facility] Comment on above: Result Comment: Nega tive Cutoff: <5 ng/mL These drug screen results are to be used for medical (i.e., treatment) purposes only. Unconfirmed drug screening results must not be used for non-medical purposes (e.g., employment testing, legal testing). Performed By: #### 2 [id number] #### [facility] [address] [place] [address] UA with Cult Rflxon 07-07-20 24 Bacteria Auto Ql (U) 1+ /HPF Abnormal Trace Fish [facility] Comment on above: Performed By: #### 4 [id number] #### [facility] [address] [place] [address] Bilirubin Ql (U) Negative Normal Negative [facility] Comment on above: Performed By: #### 4 [id number] #### [facility] [address] [place] [address] Clarity (U) Ex.Turbid Abnormal Clear [facility] Comment on above: Performed By: #### 4 [id number] #### [facility] [address] [place] [address] Color (U) Light-[place] Abnormal Yellow [facility] Comment on above: Result Comment: Micr oscopic readings are only performed on those samples that meet specific criteria set forth by [facility]. Performed By: #### 4 [id number] #### [facility] [address] [place] [address] Epithelial cells.squamous Auto (Urine sed) [#/Area] >10 Invalid Interpretation Code [facility] Comment on above: Performed By: #### 4 [id number] #### [facility] [address] [place] [address] Glucose Ql (U) 4+ mg/dL Abnormal Negative [facility] Comment on above: Performed By: #### 4 [id number] #### [facility] [address] [place] [address] Hemoglobin Auto test strip (U) [Mass/Vol] 1+ mg/dL Abnormal Negative [facility] Comment on above: Performed By: #### 4 [id number] #### [facility] [address] [place] [address] Ketones Auto test strip Ql (U) Negative Normal Negative [facility] Comment on above: Performed By: #### 4 [id number] #### [facility] [address] [place] [address] Leukocyte esterase Auto test strip Ql (U) 500 Isidoro/uL Abnormal Negative [facility] Comment on above: Performed By: #### 4 [id number] #### [facility] [address] [place] [address] Mucus Auto Ql (U) Negative Normal Negative [facility] Comment on above: Performed By: #### 4 [id number] #### [facility] [address] [place] [address] Nitrite Auto test strip Ql (U) Negative Normal Negative [facility] Comment on above: Performed By: #### 4 [id number] #### [facility] [address] [place] [address] pH (U) 6.5 [pH] Invalid Interpretation Code 5.0-9.0 [facility] Comment on above: Performed By: #### 4 [id number] #### [facility] [address] [place] [address] Protein Ql (U) Trace Abnormal Negative [facility] Comment on above: Performed By: #### 4 [id number] #### [facility] [address] [place] [address] RBC Ql (U) 31-75 Abnormal 0-3 [facility] Comment on above: Performed By: #### 4 [id number] #### [facility] [address] [place] [address] Specific gravity (U) [Rel density] 1.019 Invalid Interpretation Code 1.005-1.030 [facility] Comment on above: Performed By: #### 4 [id number] #### [facility] [address] [place] [address] Urobilinogen (U) [Mass/Vol] Negative Normal Negative [facility] Comment on above: Performed By: #### 4 [id number] #### [facility] [address] [place] [address] WBC Auto (Urine sed) [#/Area] 31-75 Abnormal 0-5 [facility] Comment on above: Performed By: #### 4 [id number] #### [facility] [address] [place] [address] Yeast.budding Computer assisted Ql (U) Trace Abnormal [facility] Comment on above: Performed By: #### 4 [id number] #### [facility] [address] [place] [address] Type of Urine collection method Clean Catch Normal [facility] Comment on above: Performed By: #### 4 [id number] #### [facility] [address] [place] [address] URINALYSISOrdered By: SYSTEM SYSTEM on 07-07-2024 Bacteria Auto Ql (U) 1+ /HPF Invalid Interpretation Code Trace/HPF [facility] UA Auto SS Bilirubin Ql (U) Negative Normal Negativemg/ dL [facility] UA Auto SS Clarity (U) Ex.Turbid *ABN* (07/07/24 7:41 PM) Invalid Interpretation Code Clear [facility] UA Auto SS Color (U) Light-[place] 3 *ABN* (07/07/24 7:41 PM) Invalid Interpretation Code Yellow [facility] Auto SS Comment on above: Interpretive Data: M icroscopic readings are only performed on those samples that meet specific criteria set forth by [facility]. Epithelial cells.squamous Auto (Urine sed) [#/Area] [...] Desc Clean Catch (07/07/24 7:41 PM) Normal [facility] UA Auto SS Work Phone: eGFRon 07-07-2024 eGFR 30 mL/min/1.73 m2 Low >=59 [facility] Comment on above: Performed By: #### 1 [id number] #### [facility] [address] [place] [address] Kobe 04-13-2024 L Specimen: [id number] Received: 04/15/24 Status: ANIRUDH Req Num: [id number] Spec Type: Cytology Subm Dr: Da Phillip DO Tissues: A FNA SLIDES NOPATH (RT THYR) B FNA SLIDES NOPATH (THY ISTHM) Procedures: Cyto Int and Re/2, PAPSTN/22 Age/ Patient Sex Location Account Attending Physician Virgen Gonzales 68/F [place] [id number] Da Phillip DO SPEC NUM: [id number] RECD: 04/15/24 STATUS: ANIRUDH REQ NUM: [id number] AMY: 04/13/[address] [facility] [address]: Da Phillip DO ENTERED: 04/15/[address] [facility] [address]: SPEC TYPE: Cytology DEPT: CNG ENTERED BY: [id number] RECV BY: [id number] ORDERED: Cyto Int and Re/2, PAPSTN/22 ORDERED: [...] 1 Entered: 05/11/24-1009 Supplemental for findings of 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: -Ensemble Housing Inspector -Benign (risk of malignancy 4%) ---- Specimen: [id number] Received: 04/15/24 Status: ANIRUDH Navarro Num: [id number] Spec Type: Cytology Subm Dr: Da Phillip DO Tissues: A FNA SLIDES NOPATH (RT THYR) B FNA SLIDES NOPATH (THY ISTHM) Procedures: Cyto Int and Re/2, PAPSTN/22 ---- Patient: Virgen Gonzales [id number] (Continued) ---- Specimen: [id number] Received: 04/15/24 (Continued) Supplemental Report (Continued) Signed (signature on file) Noemy De Los Santos MD 04/21/24 1010 ---- Specimen: [id number] Received: 04/15/24 Status: ANIRUDH Navarro Num: [id number] Spec Type: Cytology Subm Dr: Da Phillip DO Tissues: A FNA SLIDES NOPATH (RT THYR) B FNA SLIDES NOPATH (THY ISTHM) Procedures: Cyto Int and Re/2, PAPSTN ---- Patient: JanetVirgen [id number] (Continued) ---- Specimen: [id number] Received: 04/15/24-1244 (Continued) Supplemental Report (Continued) -Xpression Rainbow -N/A -Other Classifiers -BRAF: Negative -RET/PTC1: Not [...] atypia of undetermined significance, the category 3 Fleming system -Pending additional molecular triage study to follow B, instruments thyroid nodule, FNA cytology: -A few follicular cells are present in combined smears, including occasional small and/or loose follicular groups, adequately for assessment, often showing small round to ovoid nuclei, consistent with the category 2 Fleming system: Benign ---- Specimen: [id number] Received: 04/15/24 Status: ANIRUDH Navarro Num: [id number] Spec Type: Cytology Subm Dr: Da Phillip,DO Tissues: A FNA SLIDES NOPATH (RT THYR) B FNA SLIDES NOPATH (THY ISTHM) Procedures: Cyto Int and Re/2, PAPSTN/22 ---- Patient: Virgen Gonzales [id number] (Continued) ---- Specimen: [id number] Received: 04/15/24 (Continued) Signed (signature on file) Noemy De Los Santos MD 04/21/24 1010 ---- Specimen: [id number] Received: 04/15/24-1243 Status: ANIRUDH Navarro Num: [id number] Spec Type: Cytology Subm Dr: Da Phililp,DO Tissues: A FNA SLIDES NOPATH (RT THYR) B FNA SLIDES N (more content not included)... Normal [facility] Thyrotropin [Units/volume] i n Serum or PlasmaOrdered By: Da Phillip on 03-26-2024 TSH Qn 1.31 m[IU]/L Normal 0.45-5.33 [place] Comment on above: Result Comment: PERF ORMED BY: [place] [address] PATHOLOGIST ASSISTANT AUDITOR JENNIFER HERNANDEZ M.D. Performed By: #### U JAMSHID, MG, PTH, CBCNO #### [facility] [address] [place] [address] Thyroxine (T4) [Mass/volume] in Serum or PlasmaOrdered By: Da Phillip on 03-26-2024 T4 [Mass/Vol] 9.37 ug/dL Normal 5.39-11.82 [place] Comment on above: Performed By: #### U JAMSHID, MG, PTH, CBCNO #### [facility] [address] [place] [address] Triiodothyronine (T3) Totalo n 03-26-2024 Triiodothyronine (T3) Total 0.90 ng/mL Normal 0.87-1.78 [facility] Comment on above: Performed By: #### U JAMSHID, MG, PTH, CBCNO #### [place] [id number] [place] Triiodothyronine (T3) [Mass/ volume] in Serum or PlasmaOrdered By: Da Phillip on 03-26-2024 T3 [Mass/Vol] 0.90 ng/mL 0.87-1.78 [place] Kobe 02-14-2024 L Specimen: [id number] Received: 02/17/24 Status: SOUT Req Num: [id number] Spec Type: Cytology Subm Dr: Aggie Davis CNP Tissues: A FNA SLIDES NOPATH (RT THYROID NOD) B FNA SLIDES NOPATH (ISTHMUS THY) Procedures: Cyto Int and Re/2, PAPSTN/10 Age/ Patient Sex Location Account Attending Physician Virgen Gonzales 68/F [place] [id number] Aggie Davis CNP SPEC NUM: [id number] RECD: 02/17/24 STATUS: ANIRUDH REQ NUM: [id number] AMY: 02/14/24 DR: Aggie Davis CNP ENTERED: 02/17/[address]: Dina,Lab Becky Avilez MD SPEC TYPE: Cytology DEPT: POP NCYT ENTERED BY: [id number] RECV BY: [id number] ORDERED: Cyto Int and Re/2, PAPSTN/10 ORDERED: Cyto Int and Re/2, PAPSTN/10 Pathological Diagnosis A. Right thyroid,?fine needle aspiration:? Suspicious for follicular neoplasm, Atypical Follicular Cells With Abundant Colloid. Fleming Category IV B. Isthmus, fine needle aspiration:? Unsatisfactory for evaluation. Too few epithelial cells. Fleming?Category?I Clinical Information Thyroid Nodules Gross Description A. (RIGHT) Received fixed in Cytolyt is <1 ml very pale pink clear fluid for cytology said to have been obtained as right thyroid nodule-mid . ThinPrep preparations are prepared for microscopic examination. Also received are 4 spray fixed smeared slides to be stained pap aa Veracyte vial stored at -20 for microscopic examination.(KS/wy) B. (ISTHMUS) Received fixed in Cytolyt is (1 ml pink clear fluid for cytology said to have ---- Specimen: [id number] Received: 02/17/24 Status: ANIRUDH Navarro Num: [id number] Spec Type: Cytology Subm Dr: Aggie Davis CNP Tissues: A FNA SLIDES NOPATH (RT THYROID NOD) B FNA SLIDES NOPATH (ISTHMUS THY) Procedures: Cyto Int and Re/2, PAPSTN/10 ---- Patient: Virgen Gonzales [id number] (Continued) ---- Specimen: [id number] Received: 02/17/24 (Continued) Gross Description (Continued) Signed (signature on file) Nishant Morley MD 02/19/24 1428 ---- Specimen: [id number] Received: 02/17/24 Status: ANIRUDH Navarro Num: [id number] Spec Type: Cytology Subm Dr: Aggie Davis CNP Tissues: A FNA SLIDES NOPATH (RT THYROID NOD) B FNA SLIDES NOPATH (ISTHMUS THY) Procedures: Cyto Int and Re/2, PAPSTN/10 ---- Patient: LatriciaaliciaVirgen Badillo [id number] (Continued) ---- Specimen: [id number] Received: 02/17/24 (Continued) Gross Description (Continued) been obtained as Isthmus thyroid nodule. ThinPrep preparations are prepared for microscopic examination. Also received are 4 spray fixed smeared smeared slides to be stained pap and a Veracyte vial stored at -20 for microscopic examination.(KS/wy) CPT Codes 58564k9 ---- ---- Specimen: [id number] Received: 02/17/24-1323 Status: ANIRUDH Navarro Num: [id number] Spec Type: Cytology Subm Dr: Aggie Davis HOUSE OFFICER Tissues: A FNA SLIDES NOPATH (RT THYROID NOD) B FNA SLIDES NOPATH (ISTHMUS THY) Procedures: Cyto Int and Re/2, PAPSTN/10 ---- Patient: Virgen Gonzales [id number] (Continued) ---- Signed (signature on file) Nishant Morley MD 02/19/24 2517 Normal [facility] Nonvisit Note - PTon Nonvisit Note - PT Pt cancelled reassessment due to being sick. JANICE Normal [facility] Nonvisit Note - PTon 024 Nonvisit Note - PT Pt no showed for 171 5 appointment. Normal [facility] Nonvisit Note - PTon 024 Nonvisit Note - PT Pt called to cancel as she is ill. Normal [facility] Consent for Treatmenton 10-28 Consent for Treatment [id number] [id number]#1.0 0TIFF Normal [facility] PT - Assessmentson PT - Assessments [id number] 22 [id number]#1.0 0TIFF Normal [facility] PT - Consentson 11-19-2023 PT - Consents [id number] 22 [id number]#1.0 0TIFF Normal [facility] Insurance Correspondenceon 0 11-12-2023 Insurance Correspondence [id number]#1. 00TIFF Normal [facility] PT - Orderson 11-11-2023 PT - Orders [id number] 01 [id number]#1. 00TIFF Normal [facility] L Inj/Asp: L kneeon 08-27-19 24 Sue Henning ARR T 09/02/2023 8:37 AM L Inj/Asp: L knee on 08/27/2023 3:43 PM Indications: pain Details: 21 G needle, lateral approach Medications: 16 mg hylan 16 MG/2ML Consent was given by the patient. [facility] PROF 14(COMP METB)on 023 Albumin [Mass/Vol] 3.2 g/dL Critically low 3.4-5.0 [facility] Comment on above: Performed By: #### T SH, CMP, T7, LIPID #### [facility] [address] [place] [address] [address] Danay De Los Santos Albumin/Globulin [Mass ratio] 1.0 {ratio} Normal [facility] Comment on above: Performed By: #### T SH, CMP, T7, LIPID #### [facility] [address] [place], [place] [address] Dr. Danay De Los Santos ALP [Catalytic activity/Vol] 92 U/L Normal 46-116 [facility] Comment on above: Performed By: #### T SH, CMP, T7, LIPID #### [facility] [address] [place] [address] [address] Danay De Los Santos ALT [Catalytic activity/Vol] 21 U/L Normal 14-59 [facility] Comment on above: Performed By: #### T SH, CMP, T7, LIPID #### [facility] [address] [place] [address] [address] Danay De Los Santos Anion gap [Moles/Vol] 13.2 mmol/L Normal [facility] Comment on above: Performed By: #### T SH, CMP, T7, LIPID #### [facility] [address] [place] [address] [address] Danay De Los Santos AST [Catalytic activity/Vol] 14 U/L Critically low 15-37 [facility] Comment on above: Performed By: #### T SH, CMP, T7, LIPID #### [facility] [address] [place] [address] [address] Danay De Los Santos Bilirubin [Mass/Vol] 0.2 mg/dL Normal 0.2-1.0 [facility] Comment on above: Performed By: #### T SH, CMP, T7, LIPID #### [facility] [address] [place] [address] [address] Danay De Los Santos Calcium [Mass/Vol] 8.6 mg/dL Normal 8.5-10.1 [facility] Comment on above: Performed By: #### T SH, CMP, T7, LIPID #### [facility] [address] [place] [address] [address] Danay De Los Santos Chloride [Moles/Vol] 105 mmol/L Normal 98-107 [facility] Comment on above: Performed By: #### T SH, CMP, T7, LIPID #### [facility] [address] [place] [address] [address] Danay De Los Santos CO2 [Moles/Vol] 27.9 mmol/L Normal 21.0-32.0 [facility] Comment on above: Performed By: #### T SH, CMP, T7, LIPID #### [facility] [address] [place] [address] [address] Danay De Los Santos Creatinine [Mass/Vol] 1.47 mg/dL Critically high 0.55-1.02 [facility] Comment on above: Performed By: #### T SH, CMP, T7, LIPID #### [facility] [address] [place] [address] Dr. Danay De Los Santos EGFR-AF SAMMARINESE 43 mL/min/1.73m2 Critically low >=60 [facility] Comment on above: Performed By: #### T SH, CMP, T7, LIPID #### [facility] [address] [place] [address] [address] Danay De Los Santos EGFR-NON AF SAMMARINESE 35 mL/min/1.73m2 Critically low >=60 [facility] Comment on above: Performed By: #### T SH, CMP, T7, LIPID #### [facility] [address] [place] [address] Dr. Danay De Los Santos Globulin (S) [Mass/Vol] 3.3 g/dL Normal [facility] Comment on above: Performed By: #### T SH, CMP, T7, LIPID #### [facility] [address] [place] [address] Dr. Danay De Los Santos Glucose [Mass/Vol] 145 mg/dL Critically high 74-106 [facility] Comment on above: Performed By: #### T SH, CMP, T7, LIPID #### [facility] [address] [place] [address] Dr. Danay De Los Santos Potassium [Moles/Vol] 4.1 mmol/L Normal 3.5-5.1 [facility] Comment on above: Performed By: #### T SH, CMP, T7, LIPID #### [facility] [address] [place] [address] Dr. Danay De Los Santos Protein [Mass/Vol] 6.5 g/dL Normal 6.4-8.2 [facility] Comment on above: Performed By: #### T SH, CMP, T7, LIPID #### [facility] [address] [place] [address] Dr. Danay De Los Santos Sodium [Moles/Vol] 142 mmol/L Normal 136-145 [facility] Comment on above: Performed By: #### T SH, CMP, T7, LIPID #### [facility] [address] [place] [address] [address] Danay De Los Santos Urea nitrogen [Mass/Vol] 22.0 mg/dL Critically high 7.0-18.0 [facility] Comment on above: Performed By: #### T SH, CMP, T7, LIPID #### [facility] [address] [place] [address] [address] Danay De Los Santos Urea nitrogen/Creatinine [Mass ratio] 15.0 mg/mg Normal [facility] Comment on above: Performed By: #### T SH, CMP, T7, LIPID #### [facility] [address] [place] [address] [address] Danay De Los Santos PROF CHEM 8 (BAS METB)on Anion gap [Moles/Vol] 12.1 mmol/L Normal [facility] Comment on above: Performed By: #### B MP #### [facility] [address] [place] [address] Dr. Danay De Los Santos Calcium [Mass/Vol] 8.8 mg/dL Normal 8.5-10.1 [facility] Comment on above: Performed By: #### B MP #### [facility] [address] [place] [address] Dr. Danay De Los Santos Chloride [Moles/Vol] 103 mmol/L Normal 98-107 [facility] Comment on above: Performed By: #### B MP #### [facility] [address] [place] [address] Dr. Danay De Los Santos CO2 [Moles/Vol] 28.6 mmol/L Normal 21.0-32.0 [facility] Comment on above: Performed By: #### B MP #### [facility] [address] [place] [address] Dr. Danay De Los Santos Creatinine [Mass/Vol] 2.08 mg/dL Critically high 0.55-1.02 [facility] Comment on above: Performed By: #### B MP #### [facility] [address] [place] [address] Dr. Danay De Los Santos EGFR-AF SAMMARINESE 29 mL/min/1.73m2 Critically low >=60 [facility] Comment on above: Performed By: #### B MP #### [facility] [address] [place] [address] [address] Danay De Los Santos EGFR-NON AF SAMMARINESE 24 mL/min/1.73m2 Critically low >=60 [facility] Comment on above: Performed By: #### B MP #### [facility] [address] [place] [address] [address] Danay De Los Santos Glucose [Mass/Vol] 259 mg/dL Critically high 74-106 [facility] Comment on above: Performed By: #### B MP #### [facility] [address] [place] [address] [address] Danay De Los Santos Potassium [Moles/Vol] 4.7 mmol/L Normal 3.5-5.1 [facility] Comment on above: Performed By: #### B MP #### [facility] [address] [place] [address] [address] Danay De Los Santos Sodium [Moles/Vol] 139 mmol/L Normal 136-145 [facility] Comment on above: Performed By: #### B MP #### [facility] [address] [place] [address] [address] Danay De Los Santos Urea nitrogen [Mass/Vol] 27.0 mg/dL Critically high 7.0-18.0 [facility] Comment on above: Performed By: #### B MP #### [facility] [address] [place] [address] [address] Danay De Los Santos Urea nitrogen/Creatinine [Mass ratio] 13.0 mg/mg Normal [facility] Comment on above: Performed By: #### B MP #### [facility] [address] [place] [address] [address] Danay De Los Santos INSULINon 12-17-2022 Insulin 11.1 uIU/mL Normal 2.6-24.9 [facility] Comment on above: Performed By: #### I NSULIN #### [facility] [address] [place] [address] [address] Danay De Los Santos BNPon 12-15-2022 Natriuretic peptide B (Bld) [Mass/Vol] 110.0 pg/mL Normal <=900.0 [facility] Comment on above: Performed By: #### T SH, CMP, T7, LIPID #### [facility] [address] [place] [address] Dr. Danay De Los Santos CBC AUTO DIFFon 12-15-2022 BASO # 0.1 103/ul Normal 0.0-0.1 [facility] Comment on above: Performed By: #### T SH, CMP, T7, LIPID #### [facility] [address] [place] [address] Dr. Danay De Los Santos Basophils/100 WBC (Bld) 0.5 % Normal 0.2-2.0 [facility] Comment on above: Performed By: #### T SH, CMP, T7, LIPID #### [facility] [address] [place] [address] Dr. Danay De Los Santos EO # 0.7 103/ul Normal 0.0-0.7 [facility] Comment on above: Performed By: #### T SH, CMP, T7, LIPID #### [facility] [address] [place] [address] Dr. Danay De Los Santos Eosinophils/100 WBC (Bld) 6.0 % Normal 0.9-7.0 [facility] Comment on above: Performed By: #### T SH, CMP, T7, LIPID #### [facility] [address] [place] [address] Dr. Danay De Los Santos Erythrocyte distribution width (RBC) [Ratio] 15.6 % Critically high 11.0-15.0 [facility] Comment on above: Performed By: #### T SH, CMP, T7, LIPID #### [facility] [address] [place] [address] Dr. Danay De Los Santos Hematocrit (Bld) [Volume fraction] 40.2 % Normal 36.0-48.0 [facility] Comment on above: Performed By: #### T SH, CMP, T7, LIPID #### [facility] [address] [place] [address] Dr. Danay De Los Santos Hemoglobin (Bld) [Mass/Vol] 12.6 g/dL Normal 12.0-16.0 [facility] Comment on above: Performed By: #### T SH, CMP, T7, LIPID #### [facility] [address] [place] [address] Dr. Danay De Los Santos IG # 0.06 10e3/ul Critically high 0.00-0.03 [facility] Comment on above: Performed By: #### T SH, CMP, T7, LIPID #### [facility] [address] [place] [address] Dr. Danay De Los Santos IG % 0.5 % Normal 0.0-0.5 [facility] Comment on above: Performed By: #### T SH, CMP, T7, LIPID #### [facility] [address] [place] [address] Dr. Danay De Los Santos LYMPH # 3.2 103/ul Normal 1.2-3.8 [facility] Comment on above: Performed By: #### T SH, CMP, T7, LIPID #### [facility] [address] [place] [address] Dr. Danay De Los Santos Lymphocytes/100 WBC (Bld) 28.9 % Normal 20.5-60.0 [facility] Comment on above: Performed By: #### T SH, CMP, T7, LIPID #### [facility] [address] [place] [address] Dr. Danay De Los Santos MANUAL DIFF REQ NO Normal [facility] Comment on above: Performed By: #### T SH, CMP, T7, LIPID #### [facility] [address] [place] [address] Dr. Danay De Los Santos MCH (RBC) [Entitic mass] 27.3 pg Normal 26.7-34.0 [facility] Comment on above: Performed By: #### T SH, CMP, T7, LIPID #### [facility] [address] [place] [address] Dr. Danay De Los Santos MCHC (RBC) [Mass/Vol] 31.3 g/dL Normal 29.9-35.2 [facility] Comment on above: Performed By: #### T SH, CMP, T7, LIPID #### [facility] [address] [place] [address] Dr. Danay De Los Santos MCV (RBC) [Entitic vol] 87.2 fL Normal 81.0-99.0 [facility] Comment on above: Performed By: #### T SH, CMP, T7, LIPID #### [facility] [address] [place] [address] Dr. Danay De Los Santos MONO # 0.6 103/ul Normal 0.3-0.8 [facility] Comment on above: Performed By: #### T SH, CMP, T7, LIPID #### [facility] [address] [place] [address] Dr. Danay De Los Santos Monocytes/100 WBC (Bld) 5.7 % Normal 1.7-12.0 [facility] Comment on above: Performed By: #### T SH, CMP, T7, LIPID #### [facility] [address] [place] [address] Dr. Danay De Los Santos NEUT # 6.4 103/ul Normal 1.4-6.5 [facility] Comment on above: Performed By: #### T SH, CMP, T7, LIPID #### [facility] [address] [place] [address] Dr. Danay De Los Santos Neutrophils/100 WBC (Bld) 58.4 % Normal 43.0-75.0 [facility] Comment on above: Performed By: #### T SH, CMP, T7, LIPID #### [facility] [address] [place] [address] Dr. Danay De Los Santos Platelet mean volume (Bld) [Entitic vol] 10.6 fL Normal 9.5-13.5 [facility] Comment on above: Performed By: #### T SH, CMP, T7, LIPID #### [facility] [address] [place] [address] Dr. Danay De Los Santos PLT 251 103/ul Normal 150-450 [facility] Comment on above: Performed By: #### T SH, CMP, T7, LIPID #### [facility] [address] [place] [address] Dr. Danay De Los Santos RBC 4.61 106/ul Normal 4.20-5.40 [facility] Comment on above: Performed By: #### T SH, CMP, T7, LIPID #### [facility] [address] [place] [address] Dr. Danay De Los Santos WBC 10.9 103/ul Normal 4.0-11.0 [facility] Comment on above: Performed By: #### T SH, CMP, T7, LIPID #### [facility] [address] [place] [address] Dr. Danay De Los Santos FREE THYROXINE INDEX T7on FTI 2.87 Normal 1.30-4.50 [facility] Comment on above: Performed By: #### T SH, CMP, T7, LIPID #### [facility] [address] [place] [address] Dr. Danay De Los Santos T3U 35.0 % Normal 30.0-39.0 [facility] Comment on above: Performed By: #### T SH, CMP, T7, LIPID #### [facility] [address] [place] [address] Dr. Danay De Los Santos T4 [Mass/Vol] 8.20 ug/dL Normal 4.80-13.90 [facility] Comment on above: Performed By: #### T SH, CMP, T7, LIPID #### [facility] [address] [place] [address] Dr. Danay De Los Santos GLYCOHEMOGLOBIN A1Con 2022 ADA RECOMMENDATION SEE BELOW Normal [facility] Comment on above: Result Comment: ADA RECOMMENDED LIMIT 4.0 - 6.0 ADA THERAPEUTIC TARGET < 7.0 ACTION SUGGESTED > 7.0 Performed By: #### A 1C #### [facility] [address] [place] [address] Dr. Danay De Los Santos Glucose [Mass/Vol] 203 mg/dL Normal [facility] Comment on above: Performed By: #### A 1C #### [facility] [address] [place] [address] Dr. Danay De Los Santos HbA1c (Bld) [Mass fraction] 8.7 % Critically high 4.5-6.2 [facility] Comment on above: Performed By: #### A 1C #### [facility] [address] [address] [address] Danay De Los Santos IRONon 12-15-2022 Iron [Mass/Vol] 39.0 ug/dL Critically low 50.0-170.0 [facility] Comment on above: Performed By: #### T SH, CMP, T7, LIPID #### [facility] [address] [address] [address] Danay De Los Santos LIPID PROFILEon 12-15-2022 CHOL-HDL RATIO NORM SEE BELOW Normal [facility] Comment on above: Result Comment: 3.3 - 4.4 LOW RISK 4.4 - 7.1 AVERAGE RISK 7.1 - 11.0 MODERATE RISK >11.0 HIGH RISK Performed By: #### T SH, CMP, T7, LIPID #### [facility] [address] [address] [address] Danay De Los Santos Cholesterol [Mass/Vol] 123 mg/dL Normal <=200 [facility] Comment on above: Performed By: #### T SH, CMP, T7, LIPID #### [facility] [address] [address] [address] Danay De Los Santos Cholesterol in HDL [Mass/Vol] 40 mg/dL Normal 40-60 [facility] Comment on above: Performed By: #### T SH, CMP, T7, LIPID #### [facility] [address] [address] [address] Danay De Los Santos Cholesterol in LDL [Mass/Vol] 70.4 mg/dL Normal [facility] Comment on above: Performed By: #### T SH, CMP, T7, LIPID #### [facility] [address] [address] [address] Danay De Los Santos Cholesterol.total/Vivian sterol in HDL [Mass ratio] 3.1 {ratio} Normal [facility] Comment on above: Performed By: #### T SH, CMP, T7, LIPID #### [facility] [address] [address] [address] Danay De Los Santos HDL NORMAL > or = 60 mg/dl - LO W CARDIOVASCULAR RISK <40 mg/dl - HIGH CARDIOVASCULAR RISK Normal [facility] Comment on above: Performed By: #### T SH, CMP, T7, LIPID #### [facility] [address] [address] [address] Danay De Los Santos LDL CALC NORMAL SEE BELOW Normal [facility] Comment on above: Result Comment: <100 mg/dl OPTIMAL 100 - 129 mg/dl NEAR OR ABOVE OPTIMAL 130 - 159 mg/dl BORDERLINE HIGH 160 - 189 mg/dl HIGH >190 mg/dl VERY HIGH Performed By: #### T SH, CMP, T7, LIPID #### [facility] [address] [address] [address] Danay De Los Santos Triglyceride [Mass/Vol] 63 mg/dL Normal <=150 [facility] Comment on above: Performed By: #### T SH, CMP, T7, LIPID #### [facility] [address] [address] [address] Danay De Los Santos VLDL CALC 12.6 mg/dL Normal [facility] Comment on above: Performed By: #### T SH, CMP, T7, LIPID #### [facility] [address] [address] [address] Danay De Los Santos PROF 14(COMP METB)on 023 Albumin [Mass/Vol] 3.3 g/dL Critically low 3.4-5.0 [facility] Comment on above: Performed By: #### T SH, CMP, T7, LIPID #### [facility] [address] [address] [address] Danay De Los Santos Albumin/Globulin [Mass ratio] 1.0 {ratio} Normal [facility] Comment on above: Performed By: #### T SH, CMP, T7, LIPID #### [facility] [address] [address] [address] Danay De Los Santos ALP [Catalytic activity/Vol] 94 U/L Normal 46-116 [facility] Comment on above: Performed By: #### T SH, CMP, T7, LIPID #### [facility] [address] [address] [address] Danay De Los Santos ALT [Catalytic activity/Vol] 17 U/L Normal 14-59 [facility] Comment on above: Performed By: #### T SH, CMP, T7, LIPID #### [facility] [address] [address] [address] Danay De Los Santos Anion gap [Moles/Vol] 14.3 mmol/L Normal Th e [facility] Comment on above: Performed By: #### T SH, CMP, T7, LIPID #### [facility] [address] [address] [address] Danay De Los Santos AST [Catalytic activity/Vol] 11 U/L Critically low 15-37 [facility] Comment on above: Performed By: #### T SH, CMP, T7, LIPID #### [facility] [address] [place] [address] Dr. Danay De Los Santos Bilirubin [Mass/Vol] 0.3 mg/dL Normal 0.2-1.0 [facility] Comment on above: Performed By: #### T SH, CMP, T7, LIPID #### [facility] [address] [address] [address] Danay De Los Santos Calcium [Mass/Vol] 9.1 mg/dL Normal 8.5-10.1 [facility] Comment on above: Performed By: #### T SH, CMP, T7, LIPID #### [facility] [address] [place] [address] Dr. Danay De Los Santos Chloride [Moles/Vol] 105 mmol/L Normal 98-107 [facility] Comment on above: Performed By: #### T SH, CMP, T7, LIPID #### [facility] [address] [address] [address] Danay De Los Santos CO2 [Moles/Vol] 29.3 mmol/L Normal 21.0-32.0 [facility] Comment on above: Performed By: #### T SH, CMP, T7, LIPID #### [facility] [address] [place] [address] Dr. Danay De Los Santos Creatinine [Mass/Vol] 1.53 mg/dL Critically high 0.55-1.02 [facility] Comment on above: Performed By: #### T SH, CMP, T7, LIPID #### [facility] [address] [address] [address] Danay De Los Santos EGFR-AF SAMMARINESE 41 mL/min/1.73m2 Critically low >=60 [facility] Comment on above: Performed By: #### T SH, CMP, T7, LIPID #### [facility] [address] [address] [address] Danay De Los Santos EGFR-NON AF SAMMARINESE 34 mL/min/1.73m2 Critically low >=60 [facility] Comment on above: Performed By: #### T SH, CMP, T7, LIPID #### [facility] [address] [address] [address] Danay De Los Santos Globulin (S) [Mass/Vol] 3.4 g/dL Normal [facility] Comment on above: Performed By: #### T SH, CMP, T7, LIPID #### [facility] [address] [place] [address] Dr. Danay De Los Santos Glucose [Mass/Vol] 192 mg/dL Critically high 74-106 [facility] Comment on above: Performed By: #### T SH, CMP, T7, LIPID #### [facility] [address] [address] [address] Danay De Los Santos Potassium [Moles/Vol] 4.6 mmol/L Normal 3.5-5.1 [facility] Comment on above: Performed By: #### T SH, CMP, T7, LIPID #### [facility] [address] [address] [address] Danay De Los Santos Protein [Mass/Vol] 6.7 g/dL Normal 6.4-8.2 [facility] Comment on above: Performed By: #### T SH, CMP, T7, LIPID #### [facility] [address] [address] [address] Danay De Los Santos Sodium [Moles/Vol] 144 mmol/L Normal 136-145 [facility] Comment on above: Performed By: #### T SH, CMP, T7, LIPID #### [facility] [address] [address] [address] Danay De Los Santos Urea nitrogen [Mass/Vol] 25.0 mg/dL Critically high 7.0-18.0 [facility] Comment on above: Performed By: #### T SH, CMP, T7, LIPID #### [facility] [address] [address] [address] Danay De Los Santos Urea nitrogen/Creatinine [Mass ratio] 16.3 mg/mg Normal [facility] Comment on above: Performed By: #### T SH, CMP, T7, LIPID #### [facility] [address] [address] [address] Danay De Los Santos TSHon 12-15-2022 TSH 2.181 uIU/mL Normal 0.358-3.740 [facility] Comment on above: Performed By: #### T SH, CMP, T7, LIPID #### [facility] [address] [place] [address] Dr. Danay De Los Santos VITAMIN D 25 OHon 12-15-2022 VIT D 25-OH 32.9 ng/mL Normal [facility] Comment on above: Performed By: #### T SH, CMP, T7, LIPID #### [facility] [address] [place] [address] Dr. Danay De Los Santos VIT D RANGES SEE BELOW Normal [facility] Comment on above: Result Comment: <20 ng/mL Vit D deficient 20 - <30 ng/mL Vit D insufficient 30 - 100 ng/mL Vit D sufficient >100 ng/mL Potential Toxicity Performed By: #### T SADAF, CMP, T7, LIPID #### [facility] [address] [place] [address] Dr. Danay De Los Santos US ROEL [...] by: MORIAH MORRISON Date: 2022-12-01 12:54 Normal [facility] XR Hand Complete Left*on XR Hand Complete Left* CLINICAL HISTORY: Fall with left hand stiffness. COMPARISON: None. RESULT: No distinct acute fracture. No dislocation. Underlying decreased bone mineral density. Mild to moderate scattered degenerative changes. Soft tissue edema. IMPRESSION: No acute osseous findings radiographically. Report reported and signed by Home Lockwood on 08/24/2022 1108 Normal [facility] XR Spine Cervical Complete*o n 08-24-2022 [...] by Home Lockwood on 08/24/2022 1109 Normal [facility] XR HAND RIMA MIN 3Von 023 XR HAND RIMA MIN 3V EXAM: XR HAND RIMA UT N 3V HISTORY: Pain following fall COMPARISON: None. TECHNIQUE: 3 views of each hand FINDINGS: No visualized fracture, dislocation, subluxation or osseous lesion. Age-related joint space changes. No gross visualized soft tissue edema. IMPRESSION: No visualized abnormality Electronically authenticated by: BRIANNA KU Date: 2022-08-06 20:28 Normal [facility] XR HIP RT 2 3V W [...] Normal [facility] XR SHOULDER RT 2V or >on [...] by: BRIANNA KU Date: 2022-08-06 20:21 Normal [facility] XR Foot Complete Left*on XR Foot Complete Left* COMPARISON: None available HISTORY: Second and third digit pain after a fall TECHNIQUE: AP, lateral and oblique views of the foot obtained. FINDINGS: No acute fracture or dislocation. Joint spaces are preserved. Soft tissues are within normal limits. IMPRESSION: No acute osseous abnormality. Report reported and signed by Drew Looney on 08/04/2022 1044 Normal [facility] XR Knee Complete Left*on XR Knee [...] by Drew Looney on 08/04/2022 1046 Normal [facility] MRI BRAIN WO CONon MRI BRAIN WO CON EXAMINATION: MRI BRA IN WO [facility], 07/02/2022 1:55 PM EST HISTORY: Headache [...] Normal [facility] INSULINon 05-28-2022 Insulin 13.4 uIU/mL Normal 2.6-24.9 [facility] Comment on above: Performed By: #### I NSULIN #### [facility] [address] [place] [address] Dr. Danay De Los Santos CBC AUTO DIFFon 05-26-2022 BASO # 0.1 103/ul Normal 0.0-0.1 [facility] Comment on above: Performed By: #### C BC #### [facility] [address] [place] [address] Dr. Danay De Los Santos Basophils/100 WBC (Bld) 0.8 % Normal 0.2-2.0 [facility] Comment on above: Performed By: #### C BC #### [facility] [address] [place] [address] Dr. Danay De Los Santos EO # 0.6 103/ul Normal 0.0-0.7 [facility] Comment on above: Performed By: #### C BC #### [facility] [address] [place] [address] Dr. Danay De Los Santos Eosinophils/100 WBC (Bld) 5.1 % Normal 0.9-7.0 [facility] Comment on above: Performed By: #### C BC #### [facility] [address] [place] [address] Dr. Danay De Los Santos Erythrocyte distribution width (RBC) [Ratio] 14.7 % Normal 11.0-15.0 [facility] Comment on above: Performed By: #### C BC #### [facility] [address] [place] [address] Dr. Danay De Los Santos Hematocrit (Bld) [Volume fraction] 37.8 % Normal 36.0-48.0 [facility] Comment on above: Performed By: #### C BC #### [facility] [address] [place] [address] Dr. Danay De Los Santos Hemoglobin (Bld) [Mass/Vol] 12.3 g/dL Normal 12.0-16.0 [facility] Comment on above: Performed By: #### C BC #### [facility] [address] [place] [address] Dr. Danay De Los Santos IG # 0.05 10e3/ul Critically high 0.00-0.03 [facility] Comment on above: Performed By: #### C BC #### [facility] [address] [place] [address] Dr. Danay De Los Santos IG % 0.5 % Normal 0.0-0.5 [facility] Comment on above: Performed By: #### C BC #### [facility] [address] [place] [address] Dr. Danay De Los Santos LYMPH # 2.1 103/ul Normal 1.2-3.8 [facility] Comment on above: Performed By: #### C BC #### [facility] [address] [place] [address] Dr. Danay De Los Santos Lymphocytes/100 WBC (Bld) 19.1 % Critically low 20.5-60.0 [facility] Comment on above: Performed By: #### C BC #### [facility] [address] [place] [address] Dr. Danay De Los Santos MANUAL DIFF REQ NO Normal [facility] Comment on above: Performed By: #### C BC #### [facility] [address] [place] [address] Dr. Danay De Los Santos MCH (RBC) [Entitic mass] 30.8 pg Normal 26.7-34.0 [facility] Comment on above: Performed By: #### C BC #### [facility] [address] [place] [address] Dr. Danay De Los Santos MCHC (RBC) [Mass/Vol] 32.5 g/dL Normal 29.9-35.2 [facility] Comment on above: Performed By: #### C BC #### [facility] [address] [place] [address] Dr. Danay De Los Santos MCV (RBC) [Entitic vol] 94.5 fL Normal 81.0-99.0 [facility] Comment on above: Performed By: #### C BC #### [facility] [address] [place] [address] Dr. Danay De Los Santos MONO # 0.6 103/ul Normal 0.3-0.8 [facility] Comment on above: Performed By: #### C BC #### [facility] [address] [address] [address] Danay De Los Santos Monocytes/100 WBC (Bld) 5.1 % Normal 1.7-12.0 [facility] Comment on above: Performed By: #### C BC #### [facility] [address] [place] [address] Dr. Danay De Los Santos NEUT # 7.5 103/ul Critically high 1.4-6.5 [facility] Comment on above: Performed By: #### C BC #### [facility] [address] [place] [address] Dr. Danay De Los Santos Neutrophils/100 WBC (Bld) 69.4 % Normal 43.0-75.0 [facility] Comment on above: Performed By: #### C BC #### [facility] [address] [place] [address] Dr. Danay De Los Santos Platelet mean volume (Bld) [Entitic vol] 10.9 fL Normal 9.5-13.5 [facility] Comment on above: Performed By: #### C BC #### [facility] [address] [place] [address] Dr. Danay De Los Santos PLT 235 103/ul Normal 150-450 [facility] Comment on above: Performed By: #### C BC #### [facility] [address] [place] [address] Dr. Danay De Los Santos RBC 4.00 106/ul Critically low 4.20-5.40 [facility] Comment on above: Performed By: #### C BC #### [facility] [address] [place] [address] Dr. Danay De Los Santos WBC 10.8 103/ul Normal 4.0-11.0 [facility] Comment on above: Performed By: #### C BC #### [facility] [address] [address] [address] Danay De Los Santos FREE THYROXINE INDEX T7on FTI 1.83 Normal 1.30-4.50 [facility] Comment on above: Performed By: #### T SH, CMP, T7, LIPID #### [facility] [address] [address] [address] Danay De LosS antos T3U 31.0 % Normal 30.0-39.0 [facility] Comment on above: Performed By: #### T SH, CMP, T7, LIPID #### [facility] [address] [address] [address] Danay De Los Santos T4 [Mass/Vol] 5.90 ug/dL Normal 4.80-13.90 [facility] Comment on above: Performed By: #### T SH, CMP, T7, LIPID #### [facility] [address] [place] [address] Dr. Danay De Los Santos GLYCOHEMOGLOBIN A1Con 2021 ADA RECOMMENDATION SEE BELOW Normal [facility] Comment on above: Result Comment: ADA RECOMMENDED LIMIT 4.0 - 6.0 ADA THERAPEUTIC TARGET < 7.0 ACTION SUGGESTED > 7.0 Performed By: #### A 1C #### [facility] [address] [place] [address] Dr. Danay De Los Santos Glucose [Mass/Vol] 186 mg/dL Normal [facility] Comment on above: Performed By: #### A 1C #### [facility] [address] [address] [address] Danay De Los Santos HbA1c (Bld) [Mass fraction] 8.1 % Critically high 4.5-6.2 [facility] Comment on above: Performed By: #### A 1C #### [facility] [address] [place] [address] Dr. Danay De Los Santos IRONon 05-26-2022 Iron [Mass/Vol] 61.0 ug/dL Normal 50.0-170.0 [facility] Comment on above: Performed By: #### T SH, CMP, T7, LIPID #### [facility] [address] [address] [address] Danay De Los Santos LIPID PROFILEon 05-26-2022 CHOL-HDL RATIO NORM SEE BELOW Normal [facility] Comment on above: Result Comment: 3.3 - 4.4 LOW RISK 4.4 - 7.1 AVERAGE RISK 7.1 - 11.0 MODERATE RISK >11.0 HIGH RISK Performed By: #### T SH, CMP, T7, LIPID #### [facility] [address] [address] [address] Danay De Los Santos Cholesterol [Mass/Vol] 130 mg/dL Normal <=200 [facility] Comment on above: Performed By: #### T SH, CMP, T7, LIPID #### [facility] [address] [address] [address] Danay De Los Santos Cholesterol in HDL [Mass/Vol] 40 mg/dL Normal 40-60 [facility] Comment on above: Performed By: #### T SH, CMP, T7, LIPID #### [facility] [address] [address] [address] Danay De Los Santos Cholesterol in LDL [Mass/Vol] 75.8 mg/dL Normal [facility] Comment on above: Performed By: #### T SH, CMP, T7, LIPID #### [facility] [address] [address] [address] Danay De Los Santos Cholesterol.total/Vivian sterol in HDL [Mass ratio] 3.3 {ratio} Normal [facility] Comment on above: Performed By: #### T SH, CMP, T7, LIPID #### [facility] [address] [address] [address] Danay De Los Santos HDL NORMAL > or = 60 mg/dl - LO W CARDIOVASCULAR RISK <40 mg/dl - HIGH CARDIOVASCULAR RISK Normal [facility] Comment on above: Performed By: #### T SH, CMP, T7, LIPID #### [facility] [address] [place] [address] Dr. Danay De Los Santos LDL CALC NORMAL SEE BELOW Normal [facility] Comment on above: Result Comment: <100 mg/dl OPTIMAL 100 - 129 mg/dl NEAR OR ABOVE OPTIMAL 130 - 159 mg/dl BORDERLINE HIGH 160 - 189 mg/dl HIGH >190 mg/dl VERY HIGH Performed By: #### T SH, CMP, T7, LIPID #### [facility] [address] [place] [address] Dr. Danay De Los Santos Triglyceride [Mass/Vol] 71 mg/dL Normal <=150 [facility] Comment on above: Performed By: #### T SH, CMP, T7, LIPID #### [facility] [address] [address] [address] Danay De Los Santos VLDL CALC 14.2 mg/dL Normal [facility] Comment on above: Performed By: #### T SH, CMP, T7, LIPID #### [facility] [address] [place] [address] Dr. Danay De Los Santos PROF 14(COMP METB)on 022 Albumin [Mass/Vol] 3.4 g/dL Normal 3.4-5.0 [facility] Comment on above: Performed By: #### T SH, CMP, T7, LIPID #### [facility] [address] [place] [address] Dr. Danay De Los Santos Albumin/Globulin [Mass ratio] 1.0 {ratio} Normal [facility] Comment on above: Performed By: #### T SH, CMP, T7, LIPID #### [facility] [address] [place] [address] Dr. Danay De Los Santos ALP [Catalytic activity/Vol] 92 U/L Normal 46-116 [facility] Comment on above: Performed By: #### T SH, CMP, T7, LIPID #### [facility] [address] [place] [address] Dr. Danay De Los Santos ALT [Catalytic activity/Vol] 15 U/L Normal 14-59 [facility] Comment on above: Performed By: #### T SH, CMP, T7, LIPID #### [facility] [address] [place] [address] Dr. aDnay De Los Santos Anion gap [Moles/Vol] 10.4 mmol/L Normal [facility] Comment on above: Performed By: #### T SH, CMP, T7, LIPID #### [facility] [address] [address] [address] Danay De Los Santos AST [Catalytic activity/Vol] 12 U/L Critically low 15-37 [facility] Comment on above: Performed By: #### T SH, CMP, T7, LIPID #### [facility] [address] [address] [address] Danay De Los Santos Bilirubin [Mass/Vol] 0.4 mg/dL Normal 0.2-1.0 [facility] Comment on above: Performed By: #### T SH, CMP, T7, LIPID #### [facility] [address] [address] [address] Danay De Los Santos Calcium [Mass/Vol] 8.7 mg/dL Normal 8.5-10.1 [facility] Comment on above: Performed By: #### T SH, CMP, T7, LIPID #### [facility] [address] [address] [address] Danay De Los Santos Chloride [Moles/Vol] 107 mmol/L Normal 98-107 [facility] Comment on above: Performed By: #### T SH, CMP, T7, LIPID #### [facility] [address] [address] [address] Danay De Los Santos CO2 [Moles/Vol] 28.9 mmol/L Normal 21.0-32.0 [facility] Comment on above: Performed By: #### T SH, CMP, T7, LIPID #### [facility] [address] [address] [address] Danay De Los Santos Creatinine [Mass/Vol] 1.18 mg/dL Critically high 0.55-1.02 [facility] Comment on above: Performed By: #### T SH, CMP, T7, LIPID #### [facility] [address] [address] [address] Danay De Los Santos EGFR-AF SAMMARINESE 55 mL/min/1.73m2 Critically low >=60 [facility] Comment on above: Performed By: #### T SH, CMP, T7, LIPID #### [facility] [address] [address] [address] Danay De Los Santos EGFR-NON AF SAMMARINESE 46 mL/min/1.73m2 Critically low >=60 [facility] Comment on above: Performed By: #### T SH, CMP, T7, LIPID #### [facility] [address] [address] [address] Danay De Los Santos Globulin (S) [Mass/Vol] 3.3 g/dL Normal [facility] Comment on above: Performed By: #### T SH, CMP, T7, LIPID #### [facility] [address] [address] [address] Danay De Los Santos Glucose [Mass/Vol] 153 mg/dL Critically high 74-106 [facility] Comment on above: Performed By: #### T SH, CMP, T7, LIPID #### [facility] [address] [place] [address] Dr. Danay De Los Santos Potassium [Moles/Vol] 4.3 mmol/L Normal 3.5-5.1 [facility] Comment on above: Performed By: #### T SH, CMP, T7, LIPID #### [facility] [address] [place] [address] Dr. Danay De Los Santos Protein [Mass/Vol] 6.7 g/dL Normal 6.4-8.2 [facility] Comment on above: Performed By: #### T SH, CMP, T7, LIPID #### [facility] [address] [place] [address] Dr. Danay De Los Santos Sodium [Moles/Vol] 142 mmol/L Normal 136-145 [facility] Comment on above: Performed By: #### T SH, CMP, T7, LIPID #### [facility] [address] [place] [address] Dr. Danay De Los Santos Urea nitrogen [Mass/Vol] 16.0 mg/dL Normal 7.0-18.0 [facility] Comment on above: Performed By: #### T SH, CMP, T7, LIPID #### [facility] [address] [place] [address] Dr. Danay De Los Santos Urea nitrogen/Creatinine [Mass ratio] 13.6 mg/mg Normal [facility] Comment on above: Performed By: #### T SH, CMP, T7, LIPID #### [facility] [address] [address] [address] Danay De Los Santos TSHon 05-26-2022 TSH 1.443 uIU/mL Normal 0.358-3.740 [facility] Comment on above: Performed By: #### T SH, CMP, T7, LIPID #### [facility] [address] [address] [address] Daany De Los Santos XR DEXA BONE DENSITYon [...] by: BECKY AVILEZ Date: 2022-04-05 12:11 Normal [facility] GLYCOHEMOGLOBIN A1Con 2021 ADA RECOMMENDATION SEE BELOW Normal [facility] Comment on above: Result Comment: ADA RECOMMENDED LIMIT 4.0 - 6.0 ADA THERAPEUTIC TARGET < 7.0 ACTION SUGGESTED > 7.0 Performed By: #### T SH, CMP, T7, LIPID #### [facility] [address] [address] [address] Danay De Los Santos Glucose [Mass/Vol] 174 mg/dL Normal [facility] Comment on above: Performed By: #### T SH, CMP, T7, LIPID #### [facility] [address] [address] [address] Danay De Los Santos HbA1c (Bld) [Mass fraction] 7.7 % Critically high 4.5-6.2 [facility] Comment on above: Performed By: #### T SH, CMP, T7, LIPID #### [facility] [address] [address] [address] Danay De Los Santos MG MAMM SCREEN 3D RIMA CADon 02-14-2022 MG MAMM SCREEN 3D RIMA CAD Patient: VIRGEN GONZALES Exam Date: 02/14/2022 : 1955 Gender:F Ordering : AGGIE DAVIS [facility] Admission #: [id number] Family : Order #: [id number] CLICK HERE TO VIEW EXAM RADIOLOGY REPORT [...] LOCATION: [facility] BREAST COMPOSITION: Heterogeneously dense,which may obscure [...] M.D. on 02/14/2022 at 16:12 Normal [facility] CARDIAC STRESS/REST INJE CTIONon 01-27-2020 [facility] CARDIAC STRESS/REST INJECTION Patient Name: VIRGEN GONZALES STUDY: MYOCARDIAL PERFUSION STRESS TEST WITH LEXISCAN Performing facility: [facility], [address] [place] [address], [address], [address] Provider: Catarino Koroma MD, FACC PCP: Dr. Nicola Granger Supervising provider: Catarino Koroma MD, [facility] INDICATION: Abnormal EKG; Pre-operative risk assessment for Knee surgery scheduled at unknown on unknown. RBBB HISTORY: Gender: F; Age: 64 y/o ; Height: 152.4 cm; Weight: 77.1929206 kg. High Cholesterol; Abnormal EKG; Diabetes; Family HX CAD; HTN; Smoking COMPARISON: No comparison. ACCESSION NUMBER(S): [id number]; [id number]; [id number] ORDERING CLINICIAN: CATARINO KOROMA TECHNIQUE: ONE DAY [...] comparison. Electronically signed by: CATARINO KOROMA MD [facility] Vital Signs Date Time Vital Sign Value Performing Clinician Swapnil ontiveros 01-04-2025 13:41-0400 Body weight 89.81 kg Aggie Davis RECREATION THERAPY DIRECTOR-C Work Phone: [place] 01-04-2025 13:41-0400 Diastolic blood pressure 68 mm[Hg] Aggie Davis RECREATION THERAPY DIRECTOR-C Work Phone: [place] 01-04-2025 13:41-0400 Heart rate 84 /min Aggie Davis RECREATION THERAPY DIRECTOR-C Work Phone: [place] 01-04-2025 13:41-0400 SaO2% (BldA) [Mass fraction] 97 % Aggie Davis RECREATION THERAPY DIRECTOR-C Work Phone: [place] 01-04-2025 13:41-0400 Systolic blood pressure 118 mm[Hg] Aggie Davis RECREATION THERAPY DIRECTOR-C Work Phone: [place] 12-08-2024 09:48-0400 Respiratory rate 20 /min Brice its learning [facility] 12-08-2024 09:47-0400 Diastolic blood pressure 80 mm[Hg] Brice Brown [facility] 12-08-2024 09:47-0400 Heart rate 78 /min Brice Brown [facility] 12-08-2024 09:47-0400 Mean blood pressure 100 mm[Hg] Brice Brown [facility] 12-08-2024 09:47-0400 Systolic blood pressure 140 mm[Hg] Brice Brown [facility] 12-08-2024 09:46-0400 Heart rate 80 /min Brice Brown [facility] 12-08-2024 09:46-0400 SaO2% (BldA) [Mass fraction] 95 % Brice Brown [facility] 12-08-2024 09:46-0400 Diastolic blood pressure 77 mm[Hg] Brice Brown [facility] 12-08-2024 09:46-0400 Mean blood pressure 98 mm[Hg] Brice Estrella [facility] 12-08-2024 09:46-0400 Systolic blood pressure 139 mm[Hg] Brice Estrella [facility] 11-26-2024 13:23-0400 Body height 152.4 cm Brice Estrella DO Work Phone: [facility] 11-26-2024 13:23-0400 Body mass index (BMI) [Ratio] 39.65 kg/m2 Brice Estrella DO Work Phone: [facility] 11-26-2024 13:23-0400 Body weight 92.08 kg Brice Estrella DO Work Phone: [facility] 11-23-2024 11:53-0400 Body height 152.4 cm Aggie Davis RECREATION THERAPY DIRECTOR-C Work Phone: [place] 11-23-2024 11:53-0400 Body temperature 97.8 [degF] Aggie Davis RECREATION THERAPY DIRECTOR-C Work Phone: [place] 11-23-2024 11:53-0400 Diastolic blood pressure 71 mm[Hg] Aggie Mccormackmer RECREATION THERAPY DIRECTOR-C Work Phone: [place] 11-23-2024 11:53-0400 Heart rate 92 /min Aggie Mccormackmer RECREATION THERAPY DIRECTOR-C Work Phone: [place] 11-23-2024 11:53-0400 Respiratory rate 18 /min Aggie Davis RECREATION THERAPY DIRECTOR-C Work Phone: [place] 11-23-2024 11:53-0400 SaO2% (BldA) [Mass fraction] 96 % Aggie Davis RECREATION THERAPY DIRECTOR-C Work Phone: [place] 11-23-2024 11:53-0400 Systolic blood pressure 105 mm[Hg] Aggie Davis RECREATION THERAPY DIRECTOR-C Work Phone: [place] 11-16-2024 12:12-0400 Body height 152.4 cm Mathieu Naqvi MD Work Phone: [facility] 11-16-2024 12:12-0400 Body mass index (BMI) [Ratio] 39.65 kg/m2 Mathieu Naqvi MD Work Phone: [facility] 11-16-2024 12:12-0400 Body weight 92.08 kg Mathieu Naqvi MD Work Phone: [facility] 11-16-2024 12:12-0400 Diastolic blood pressure 68 mm[Hg] Mathieu Naqvi MD Work Phone: [facility] 11-16-2024 12:12-0400 Heart rate 79 /min Mathieu Naqvi MD Work Phone: [facility] 11-16-2024 12:12-0400 Respiratory rate 18 /min Mathieu Naqvi MD Work Phone: [facility] 11-16-2024 12:12-0400 SaO2% (BldA) [Mass fraction] 94 % Mathieu Naqvi MD Work Phone: [facility] 11-16-2024 12:12-0400 Systolic blood pressure 124 mm[Hg] Mathieu Naqvi MD Work Phone: [facility] 11-09-2024 10:02-0400 Body height 152.4 cm Da Phillip DO Work Phone: [facility] 11-09-2024 10:02-0400 Body mass index (BMI) [Ratio] 40.04 kg/m2 aD Phillip DO Work Phone: [facility] 11-09-2024 10:02-0400 Body weight 92.99 kg Da hPillip DO Work Phone: [facility] 11-05-2024 10:41-0400 Body height 152.4 cm Brice Estrella DO Work Phone: [facility] 11-05-2024 10:41-0400 Body mass index (BMI) [Ratio] 40.43 kg/m2 Brice Estrella DO Work Phone: [facility] 11-05-2024 10:41-0400 Body weight 93.89 kg Brice Estrella DO Work Phone: [facility] 09-21-2024 08:22-0500 Body height 152.4 cm Aggie Mccormackmer RECREATION THERAPY DIRECTOR-C Work Phone: [place] 09-21-2024 08:22-0500 Body mass index (BMI) [Ratio] 40.8 kg/m2 Aggienapoleon Mccormackmer RECREATION THERAPY DIRECTOR-C Work Phone: [place] 09-21-2024 08:22-0500 Body weight 94.8 kg Aggienapoleon Mccormackmer RECREATION THERAPY DIRECTOR-C Work Phone: [place] 09-21-2024 08:14-0500 Body temperature 97.5 [degF] Aggienapoleon Mccormackmer RECREATION THERAPY DIRECTOR-C Work Phone: [place] 09-21-2024 08:14-0500 Diastolic blood pressure 75 mm[Hg] Aggienapoleon Mccormackmer RECREATION THERAPY DIRECTOR-C Work Phone: [place] 09-21-2024 08:14-0500 Heart rate 86 /min Aggie Susan RECREATION THERAPY DIRECTOR-C Work Phone: [place] 09-21-2024 08:14-0500 Respiratory rate 20 /min Aggie Susan RECREATION THERAPY DIRECTOR-C Work Phone: [place] 09-21-2024 08:14-0500 Systolic blood pressure 121 mm[Hg] Aggie Susan RECREATION THERAPY DIRECTOR-C Work Phone: [place] 09-07-2024 09:09-0500 Blood Pressure Location Kang BOSS [facility] 09-07-2024 09:09-0500 Diastolic blood pressure 74 mm[Hg] Kang BOSS [facility] 09-07-2024 09:09-0500 Heart rate 70 /min Kang [facility] 09-07-2024 09:09-0500 Respiratory rate 18 /min Kang [facility]OSS [facility] 09-07-2024 09:09-0500 Systolic blood pressure 112 mm[Hg] Kang [facility]OSS [facility] 08-31-2024 13:49-0500 Body height 152.4 cm Aggie Davis RECREATION THERAPY DIRECTOR-C Work Phone: [place] 08-31-2024 13:49-0500 Body mass index (BMI) [Ratio] 39.9 kg/m2 Aggie Davis RECREATION THERAPY DIRECTOR-C Work Phone: [place] 08-31-2024 13:49-0500 Body temperature 97.8 [degF] Aggie Davis RECREATION THERAPY DIRECTOR-C Work Phone: [place] 08-31-2024 13:49-0500 Body weight 92.75 kg Aggie Davis RECREATION THERAPY DIRECTOR-C Work Phone: [place] 08-31-2024 13:49-0500 Diastolic blood pressure 71 mm[Hg] Aggie Davis RECREATION THERAPY DIRECTOR-C Work Phone: [place] 08-31-2024 13:49-0500 Heart rate 68 /min Aggie Davis RECREATION THERAPY DIRECTOR-C Work Phone: [place] 08-31-2024 13:49-0500 Respiratory rate 18 /min Aggie Davis RECREATION THERAPY DIRECTOR-C Work Phone: [place] 08-31-2024 13:49-0500 SaO2% (BldA) [Mass fraction] 98 % Aggie Davis RECREATION THERAPY DIRECTOR-C Work Phone: [place] 08-31-2024 13:49-0500 Systolic blood pressure 106 mm[Hg] Aggie Davis RECREATION THERAPY DIRECTOR-C Work Phone: [place] 08-31-2024 10:24-0500 Body height 152.4 cm Brice Estrella DO Work Phone: [facility] 08-31-2024 10:24-0500 Body mass index (BMI) [Ratio] 40.43 kg/m2 Brice Brown DO Work Phone: [facility] 08-31-2024 10:24-0500 Body weight 93.89 kg Brice Estrella DO Work Phone: [facility] 08-20-2024 09:05-0500 Body mass index (BMI) [Ratio] 40.43 kg/m2 Christopher Estrella DO Work Phone: [facility] 08-20-2024 09:05-0500 Body weight 93.89 kg Louisopher Estrella DO Work Phone: [facility] 08-20-2024 09:05-0500 Diastolic blood pressure 80 mm[Hg] Christopher Estrella DO Work Phone: [facility] 08-20-2024 09:05-0500 Heart rate 80 /min Christopher Estrella DO Work Phone: [facility] 08-20-2024 09:05-0500 SaO2% (BldA) [Mass fraction] 95 % Christopher Estrella DO Work Phone: [facility] 08-20-2024 09:05-0500 Systolic blood pressure 144 mm[Hg] Louisopher Estrella DO Work Phone: [facility] 08-19-2024 10:18-0500 Body height 152.4 cm Aggie Davis RECREATION THERAPY DIRECTOR-C Work Phone: [place] 08-19-2024 10:18-0500 Body mass index (BMI) [Ratio] 40.8 kg/m2 Aggie Davis RECREATION THERAPY DIRECTOR-C Work Phone: [place] 08-19-2024 10:18-0500 Body weight 94.8 kg Aggie Davis RECREATION THERAPY DIRECTOR-C Work Phone: [place] 08-19-2024 09:13-0500 Body temperature 98.2 [degF] Aggie Susan RECREATION THERAPY DIRECTOR-C Work Phone: [place] 08-19-2024 09:13-0500 Diastolic blood pressure 44 mm[Hg] Aggie Susan RECREATION THERAPY DIRECTOR-C Work Phone: [place] 08-19-2024 09:13-0500 Heart rate 87 /min Aggie Susan RECREATION THERAPY DIRECTOR-C Work Phone: [place] 08-19-2024 09:13-0500 Respiratory rate 20 /min Aggie Susan RECREATION THERAPY DIRECTOR-C Work Phone: [place] 08-19-2024 09:13-0500 Systolic blood pressure 100 mm[Hg] Aggie Susan RECREATION THERAPY DIRECTOR-C Work Phone: [place] 08-18-2024 10:31-0500 Body height 152.4 cm Mathieu Naqvi MD Work Phone: [facility] 08-18-2024 10:31-0500 Body mass index (BMI) [Ratio] 40.82 kg/m2 Mathieu Naqvi MD Work Phone: [facility] 08-18-2024 10:31-0500 Body weight 94.8 kg Mathieu Naqvi MD Work Phone: [facility] 07-07-2024 21:52-0500 Body temperature 97.88 [degF] Kaylinn Dokken [facility] 07-07-2024 21:52-0500 Diastolic blood pressure 76 mm[Hg] Kaylinn Dokken [facility] 07-07-2024 21:52-0500 Heart rate 72 /min Kaylinn Dokken [facility] 07-07-2024 21:52-0500 Mean blood pressure 86 mm[Hg] Kaylinn Dokken [facility] 07-07-2024 21:52-0500 Respiratory rate 19 /min Kaylinn Dokken [facility] 07-07-2024 21:52-0500 SaO2% (BldA) [Mass fraction] 95 % Kaylinn Dokken [facility] 07-07-2024 21:52-0500 Systolic blood pressure 105 mm[Hg] Kaylinn Dokken [facility] 07-07-2024 20:57-0500 Diastolic blood pressure 77 mm[Hg] Kaylinn Dokken [facility] 07-07-2024 20:57-0500 Heart rate 61 /min Kaylinn Dokken [facility] 07-07-2024 20:57-0500 Mean blood pressure 102 mm[Hg] Kaylinn Dokken [facility] 07-07-2024 20:57-0500 Respiratory rate 18 /min Kaylinn Dokken [facility] 07-07-2024 20:57-0500 SaO2% (BldA) [Mass fraction] 96 % Kaylinn Dokken [facility] 07-07-2024 20:57-0500 Systolic blood pressure 153 mm[Hg] Kaylinn Dokken [facility] 07-07-2024 19:33-0500 Diastolic blood pressure 89 mm[Hg] Kaylinn Dokken [facility] 07-07-2024 19:33-0500 Heart rate 60 /min Kaylinn Dokken [facility] 07-07-2024 19:33-0500 Mean blood pressure 108 mm[Hg] Kaylinn Dokken [facility] 07-07-2024 19:33-0500 Respiratory rate 19 /min Kaylinn Dokken [facility] 07-07-2024 19:33-0500 SaO2% (BldA) [Mass fraction] 95 % Kaylinn Dokken [facility] 07-07-2024 19:33-0500 Systolic blood pressure 146 mm[Hg] Kaylinn Dokken [facility] 07-07-2024 19:20-0500 Body temperature 98.06 [degF] Kaylinn Dokken [facility] 07-07-2024 18:33-0500 Body temperature 98.24 [degF] Kaylinn Dokken [facility] 07-07-2024 18:33-0500 Heart rate 73 /min Kaylinn Dokken [facility] 07-07-2024 18:33-0500 Respiratory rate 18 /min Kaylinn Dokken [facility] 07-07-2024 18:19-0500 gluc 142 mg/dL Kaylinn Dokken [facility] 07-07-2024 18:18-0500 Heart rate 73 /min Kaylinn Dokken [facility] 07-07-2024 18:18-0500 Respiratory rate 18 /min Kaylinn Dokken [facility] 05-18-2024 10:53-0400 Body height 152.4 cm Da Webbmaicol Work Phone: [facility] 05-18-2024 10:53-0400 Body mass index (BMI) [Ratio] 38.08 kg/m2 Da Biedenbach DO Work Phone: [facility] 05-18-2024 10:53-0400 Body weight 88.45 kg Da Biedenbach DO Work Phone: [facility] 04-13-2024 11:09-0400 Body height 152.4 cm Da Biedenbach DO Work Phone: [facility] 04-13-2024 11:09-0400 Body mass index (BMI) [Ratio] 38.08 kg/m2 Da Biedenbach DO Work Phone: [facility] 04-13-2024 11:09-0400 Body weight 88.45 kg Da Biedenbach DO Work Phone: [facility] 04-10-2024 09:25-0400 Body height 149.9 cm Da Biedenbach DO Work Phone: [facility] 04-10-2024 09:25-0400 Body mass index (BMI) [Ratio] 39.39 kg/m2 Da Biedenbach DO Work Phone: [facility] 04-10-2024 09:25-0400 Body weight 88.45 kg Da Biedenbach DO Work Phone: [facility] 03-26-2024 11:11-0400 Body height 152.4 cm Da Biedenbach DO Work Phone: [facility] 03-26-2024 11:11-0400 Body mass index (BMI) [Ratio] 38.08 kg/m2 Da Biedenbach DO Work Phone: [facility] 03-26-2024 11:11-0400 Body weight 88.45 kg Da Biedenbach DO Work Phone: [facility] 08-27-2023 15:38-0500 Body height 149.9 cm Brice Estrella DO Work Phone: [facility] 08-27-2023 15:38-0500 Body mass index (BMI) [Ratio] 39.59 kg/m2 Brice Estrella DO Work Phone: [facility] 08-27-2023 15:38-0500 Body temperature 97.39 [degF] Brice Estrella DO Work Phone: [facility] 08-27-2023 15:38-0500 Body weight 88.91 kg Brice Estrella DO Work Phone: [facility] 06-07-2023 08:27-0500 Heart rate 77 /min Brice Estrella [facility] 06-07-2023 08:27-0500 SaO2% (BldA) [Mass fraction] 98 % Brice Estrella [facility] 06-07-2023 08:26-0500 Respiratory rate 20 /min Brice Estrella [facility] 06-07-2023 08:26-0500 Blood Pressure Location Brice Estrella [facility] 06-07-2023 08:26-0500 Diastolic blood pressure 64 mm[Hg] Brice Estrella [facility] 06-07-2023 08:26-0500 Mean blood pressure 77 mm[Hg] Brice Estrella [facility] 06-07-2023 08:26-0500 Systolic blood pressure 102 mm[Hg] Brice Estrella [facility] 06-07-2023 08:25-0500 Body temperature 97.88 [degF] Brice Estrella [facility] 06-07-2023 08:05-0500 Blood Pressure Location Brice Estrella [facility] 06-07-2023 08:05-0500 Diastolic blood pressure 59 mm[Hg] Brice Estrella [facility] 06-07-2023 08:05-0500 Heart rate 73 /min Brice Estrella [facility] 06-07-2023 08:05-0500 Respiratory rate 20 /min Brice Estrella [facility] 06-07-2023 08:05-0500 SaO2% (BldA) [Mass fraction] 95 % Brice Estrella [facility] 06-07-2023 08:05-0500 Systolic blood pressure 114 mm[Hg] Brice Estrella [facility] 06-07-2023 07:30-0500 Blood Pressure Location Brice Estrella [facility] 06-07-2023 07:30-0500 Diastolic blood pressure 70 mm[Hg] Brice Estrella [facility] 06-07-2023 07:30-0500 Heart rate 70 /min Brice Estrella [facility] 06-07-2023 07:30-0500 Respiratory rate 20 /min Brice Estrella [facility] 06-07-2023 07:30-0500 SaO2% (BldA) [Mass fraction] 96 % Brice Estrella [facility] 06-07-2023 07:30-0500 Systolic blood pressure 114 mm[Hg] Brice Estrella [facility] 06-07-2023 06:52-0500 Mean blood pressure 76 mm[Hg] Brice Estrella [facility] 06-07-2023 06:49-0500 Body temperature 97.88 [degF] Brice Estrella [facility] 06-07-2023 06:49-0500 Mean blood pressure 79 mm[Hg] Bricelaura Estrella [facility] Encounters Encounter Date Encounter Type Care Provider Facility Start: 05-31-2025 ambulatory Kang BOSS Ghassan ty:[facility] [place] Start: 03-08-2025 ambulatory Kang BOSS Isabellelien ty:[facility] Start: 03-08-2025 End: 03-08-2025 Patient encounter procedure Kang BOSS [facility] [place] Start: 01-28-2025 End: 01-28-2025 ambulatory [facility] Start: 01-04-2025 End: 01-04-2025 ambulatory Aggie Davis RECREATION THERAPY DIRECTOR-C Work Phone: [facility] Work Phone: Start: 01-04-2025 End: 01-04-2025 Patient encounter procedure Aggie Davis RECREATION THERAPY DIRECTOR-C Work Phone: [facility] Work Phone: Start: 12-25-2024 End: 12-25-2024 Clinisync Result Encounter Brice Estrella DO Work Phone: [facility] Unsolicited Start: 12-25-2024 End: 12-25-2024 Clinisync Result Encounter Brice Estrella DO Work Phone: [facility] Unsolicited Start: 12-25-2024 End: 12-25-2024 Admission to same day surgery center Brice Estrella [facility] Start: 12-25-2024 End: 12-25-2024 ambulatory Brice Estrella Facility[facility] Start: 12-22-2024 End: 12-22-2024 ambulatory Aggie Davis RECREATION THERAPY DIRECTOR-C Work Phone: [facility] Work Phone: Start: 12-22-2024 End: 12-22-2024 Departed Referred Aggie Davis RECREATION THERAPY DIRECTOR-C Work Phone: [facility] [place] [facility] Start: 12-08-2024 End: 12-08-2024 ambulatory Brice Estrella Facility:[facility] Start: 12-08-2024 End: 12-08-2024 Patient encounter procedure Brice Estrella [facility] Start: 11-26-2024 End: 11-26-2024 Bamboo flowsheet Brice Estrella DO Work Phone: [facility] Start: 11-26-2024 End: 11-26-2024 Bamboo flowsheet Brice Estrella DO Work Phone: [facility] Start: 11-26-2024 End: 11-26-2024 ambulatory BRICE ESTRELLA Not Available Start: 11-26-2024 End: 11-26-2024 Patient encounter procedure Brice Estrella DO Work Phone: [facility] Comment on above: Triceps tendonitis ( Primary Dx) Start: 11-23-2024 End: 11-23-2024 ambulatory Aggie Davis RECREATION THERAPY DIRECTOR-C Work Phone: [facility] Work Phone: Start: 11-23-2024 End: 11-23-2024 Patient encounter procedure Aggie Davis RECREATION THERAPY DIRECTOR-C Work Phone: [facility] Work Phone: Start: 11-16-2024 End: 11-16-2024 Bamboo flowsheet Mathieu Naqvi MD Work Phone: [facility] Start: 11-16-2024 End: 11-16-2024 Bamboo flowsheet Mathieu Naqvi MD Work Phone: [facility] Start: 11-16-2024 End: 11-16-2024 ambulatory MATHIEU NAQVI Not Available Start: 11-16-2024 End: 11-16-2024 Office outpatient visit 25 minutes Mathieu Naqvi MD Work Phone: [facility] Comment on above: Type 2 diabetes tad itus with hyperglycemia, with long-term current use of insulin (CMS/HCC) (Primary Dx); Encounter for dietary consultation; Vitamin D deficiency; Primary hypertension (CMS/HCC); Hyperlipemia, mixed (CMS/HCC); Class 2 severe obesity due to excess calories with serious comorbidity and body mass index (BMI) of 39.0 to 39.9 in adult (CMS/HCC) Start: 11-14-2024 End: 11-14-2024 ambulatory Aggie Davis RECREATION THERAPY DIRECTOR-C Work Phone: [facility] Work Phone: Start: 11-14-2024 End: 11-14-2024 Departed Referred Aggie Davis RECREATION THERAPY DIRECTOR-C Work Phone: [facility] [place] [facility] Start: 11-09-2024 End: 11-09-2024 Bamboo flowsheet Da Phillip DO Work Phone: [facility] Start: 11-09-2024 End: 11-09-2024 Bamboo flowsheet Da Phillip DO Work Phone: [facility] Start: 11-09-2024 End: 11-09-2024 ambulatory BRICE ESTRELLA Not Available Start: 11-09-2024 End: 11-09-2024 Office outpatient visit 25 minutes Da Phillip DO Work Phone: [facility] Comment on above: Nontoxic multinodula r goiter (CMS/HCC) (Primary Dx); Thyroid nodule (CMS/HCC) Start: 11-05-2024 End: 11-05-2024 Bamboo flowsheet Brice Estrella DO Work Phone: [facility] Start: 11-05-2024 End: 11-05-2024 Bamboo flowsheet Brice Estrella DO Work Phone: [facility] Start: 11-05-2024 End: 11-05-2024 ambulatory BRICE ESTRELLA Not Available Start: 11-05-2024 End: 11-05-2024 Patient encounter procedure Brice A Delores DO Work Phone: [facility] Comment on above: Triceps tendonitis ( Primary Dx); Lateral epicondylitis of right elbow Start: 10-30-2024 End: 10-30-2024 ambulatory Aggie Davis RECREATION THERAPY DIRECTOR-C Work Phone: [facility] Work Phone: Start: 10-30-2024 End: 10-30-2024 Departed Referred Aggie Davis RECREATION THERAPY DIRECTOR-C Work Phone: [facility] [place] [facility] Start: 10-13-2024 End: 10-13-2024 Patient encounter procedure Aggie Davis RECREATION THERAPY DIRECTOR-C Work Phone: [facility] [place] Work Phone: Start: 10-13-2024 End: 10-13-2024 ambulatory Aggie Mccormackmer RECREATION THERAPY DIRECTOR-C Work Phone: [facility] Work Phone: Start: 09-21-2024 End: 09-21-2024 ambulatory Aggie Davis RECREATION THERAPY DIRECTOR-C Work Phone: [facility] Work Phone: Start: 09-21-2024 End: 09-21-2024 Discharged Recurring Aggie Davis RECREATION THERAPY DIRECTOR-C Work Phone: [facility]-W[facility] [place] Work Phone: Start: 09-14-2024 End: 09-14-2024 ambulatory Aggie Davis RECREATION THERAPY DIRECTOR-C Work Phone: [facility] Work Phone: Start: 09-14-2024 End: 09-14-2024 Patient encounter procedure Aggie Davis RECREATION THERAPY DIRECTOR-C Work Phone: [facility] Work Phone: Start: 09-07-2024 End: 09-07-2024 ambulatory Kang BOSS Facility: [place] Start: 09-07-2024 End: 09-07-2024 Patient encounter procedure Kang Morelos KARYN [facility] [place] Start: 09-03-2024 End: 09-03-2024 Bamboo [...] Start: 08-31-2024 End: 08-31-2024 ambulatory Aggie Davis RECREATION THERAPY DIRECTOR-C Work Phone: [facility] Work Phone: Start: 08-31-2024 End: 08-31-2024 Patient encounter procedure Aggie Davis RECREATION THERAPY DIRECTOR-C Work Phone: [facility] Work Phone: Start: 08-31-2024 End: 08-31-2024 Patient encounter procedure Brice Estrella DO Work Phone: [facility] Comment on above: Lateral epicondyliti s of right elbow (Primary Dx); Right elbow pain; Triceps tendonitis Start: 08-31-2024 End: 08-31-2024 ambulatory BRICE ESTRELLA Not Available Start: 08-24-2024 End: 08-24-2024 ambulatory MALICKBAKARI ESTRELLA Not Available Start: 08-20-2024 End: 08-20-2024 ambulatory [facility] Start: 08-20-2024 End: 08-20-2024 Bamboo flowsheet Christopher Estrella DO Work Phone: [facility] [place] Start: 08-20-2024 End: 08-20-2024 Bamboo flowsheet Christopher Estrella DO Work Phone: [facility] [place] Start: 08-20-2024 End: 08-20-2024 ambulatory MALICKBAKARI ESTRELLA Not Available Start: 08-20-2024 End: 08-20-2024 Office outpatient new 45 minutes Olman Byrdett DO Work Phone: [facility] [place] Comment on above: Loss of consciousnes s (CMS/HCC) (Primary Dx); Bilateral hand numbness Start: 08-19-2024 Registered Recurring Aggie CHICAS Work Phone: [facility] [place] Work Phone: Start: 08-18-2024 End: 08-18-2024 Bamboo flowsheet Mathieu Naqvi MD Work Phone: [facility] Start: 08-18-2024 End: 08-18-2024 Bamboo flowsheet Mathieu Naqvi MD Work Phone: [facility] Start: 08-18-2024 End: 08-18-2024 Office outpatient new 45 minutes Mathieu Naqvi MD Work Phone: [facility] Comment on above: Type 2 [...] Start: 08-14-2024 ambulatory Kang BOSS Facility :[facility] [place] Start: 08-14-2024 ambulatory Facility:[facility] Start: 07-22-2024 Non-patient / Non-visit Aggie CHICAS [facility] Work Phone: Start: 07-07-2024 End: 07-07-2024 Emergency department patient visit Tiny Fallon [facility] Start: 05-18-2024 End: 05-18-2024 ambulatory DA PHILLIP [...] [place] Start: 04-13-2024 End: 04-13-2024 Departed Referred RECREATION THERAPY DIRECTOR-C Aggie Davis Work Phone: [facility] [place] Work Phone: Start: 04-13-2024 End: 04-13-2024 ambulatory RECREATION THERAPY DIRECTOR-C Aggie Davis Work Phone: [facility] Work Phone: Start: 04-13-2024 End: 04-13-2024 Office outpatient visit 25 minutes Da Jacintoenmaicol [...] Start: 03-26-2024 End: 03-26-2024 Patient encounter procedure RECREATION THERAPY DIRECTOR-Hilda Davis Work Phone: [facility] [place] Work Phone: Start: 03-26-2024 End: 03-26-2024 ambulatory RECREATION THERAPY DIRECTOR-C Aggie Davis Work Phone: [facility] Work Phone: Start: 03-26-2024 End: 03-26-2024 Office outpatient new 45 minutes Da Phillip DO Work Phone: [facility] [place] Comment on above: Thyroid nodule (CMS/ HCC) (Primary Dx); Nontoxic multinodular goiter (CMS/HCC); Thyroid dysfunction (CMS/HCC) Start: 03-26-2024 End: 03-26-2024 ambulatory DA PHILLIP Not Available Start: 02-14-2024 End: 02-14-2024 ambulatory RECREATION THERAPY DIRECTOR-C Aggie Davis Work Phone: [facility] Work Phone: Start: 02-14-2024 End: 02-14-2024 Departed Referred RECREATION THERAPY DIRECTOR-C Aggie Davis Work Phone: [facility] [place] [facility] Start: 01-25-2024 Non-patient / Non-visit RECREATION THERAPY DIRECTOR-C Keke Davis Work Phone: [facility] Work Phone: Start: 12-31-2023 End: 12-31-2023 ambulatory BRICE ESTRELLA Not Available Start: 11-11-2023 End: 02-26-2024 ambulatory Brice Estrella Facility:[facility] Start: 2023 Chart abstracting Brice brantley DO Work Phone: [facility] Start: 08-27-2023 End: 08-27-2023 Patient encounter procedure Brice Estrella DO Work Phone: [facility] Comment on above: Left knee pain, unsp ecified chronicity (Primary Dx) Start: 08-22-2023 End: 08-22-2023 ambulatory RECREATION THERAPY DIRECTOR-C Aggie Davis Work Phone: [facility] Work Phone: Start: 08-22-2023 End: 08-22-2023 Discharged Recurring RECREATION THERAPY DIRECTOR-C Aggie Susan Work Phone: [facility] Start: 06-07-2023 End: 06-07-2023 Admission to same day surgery center Brice Estrella [facility] Start: 12-26-2022 ambulatory AGGIE SUSAN Facility: [...] End: 11-09-2021 Patient encounter procedure Michele Jane [facility] Procedures Date Procedure Procedure Detail Performing Clinician Start: 12-25-2024 [facility] CAPILLARY GLUCOSE POC Brice Estrella DO Work Phone: Start: 12-25-2024 [facility] HGBA1C Brice michaels DO Work Phone: Start: 12-22-2024 Urine culture Aggie Cr amer RECREATION THERAPY DIRECTOR-C Work Phone: Start: 11-16-2024 Gluc bld gluc mntr d ev cleared fda spec home use Mathieu Naqvi MD Work Phone: Start: 11-14-2024 Urine culture Aggie Cr amer RECREATION THERAPY DIRECTOR-C Work Phone: Start: 10-30-2024 Urine culture Aggie Cr amer RECREATION THERAPY DIRECTOR-C Work Phone: Start: 10-13-2024 Urine culture Aggie Cr amer RECREATION THERAPY DIRECTOR-C Work Phone: Start: 09-14-2024 Plain X-ray of right tibia and right fibula Aggie Davis RECREATION THERAPY DIRECTOR-C Work Phone: Start: 09-14-2024 MRI of head Aggie guzmán RECREATION THERAPY DIRECTOR-C Work Phone: Start: 09-03-2024 End: 09-03-2024 [...] Cholecystectomy Michele Jane History of tonsillectomy Ronen n [place] Hysterectomy Michele Jane needle removed right foot Emilee hn [place]our[place] Operation on toenail Michele perez Release of trigger finger Emilee hn [place] right carpel tunnel Michele dill right knee arthroscopy x2 Emilee hn [place] Plan of Treatment Date Care Activity Detail Author Start: 06-01-2025 Pneumococcal Vaccine: 65+ Years (3 - PPSV23 or PCV20) Pneumococcal Vaccine: 65+ Years (3 - PPSV23 or PCV20) [facility] Start: 06-01-2025 Pneumococcal Vaccine: 65+ Years (3 of 3 - PCV20 or PCV21) Pneumococcal Vaccine: 65+ Years (3 of 3 - PCV20 or PCV21) [facility] Start: 06-01-2025 Pneumococcal Vaccine: 65+ Years (3 of 3 - PPSV23 or PCV20) Pneumococcal Vaccine: 65+ Years (3 of 3 - PPSV23 or PCV20) [facility] Start: 05-17-2025 End: 05-17-2025 Patient encounter procedure 05/17/2025 10:15 AM EDT Office Visit [facility] [place] [address] [place] [address] Da Phillip, DO [address] [place] [address] [facility] [place] Start: 03-29-2025 Influenza vaccination Influenza Vaccine (Season Ended) [facility] Start: 03-15-2025 End: 03-15-2025 Patient encounter procedure 03/15/2025 11:20 AM EDT Office Visit [facility] [address] [place] [address] Mathieu Naqvi MD [address] [place] [address] [facility] Start: 01-14-2025 End: 01-14-2025 Patient encounter procedure 01/14/2025 12:00 PM EDT Office Visit [facility] [place] [address] [facility] [address] [place] [phone] Payton Goodwin DO [address] [place], [place] [phone] [facility] [place] Start: 01-05-2025 End: 01-05-2025 Patient encounter procedure 01/05/2025 9:15 AM EDT Office Visit [facility] [address] [facility] [address] [place] [phone] Brice Estrella, DO [address] [place], [place] [phone] [facility] Start: 01-04-2025 End: 01-04-2025 Patient encounter procedure 01/04/2025 1:15 PM EDT Office Visit [facility] Yadav[facility] [address] [place] [phone] Olman De La Rosa, [address] [place] [address] [facility] [place] Start: 12-22-2024 Bacteria identified in Urine by Culture [facility] [place] Start: 12-22-2024 Urine culture [place] Start: 11-26-2024 End: 11-26-2024 Patient encounter procedure 11/26/2024 1:15 PM EDT Office Visit [facility] [address] [place] [phone] Brice Estrella, DO [address] [place] [address] [facility] Start: 11-16-2024 End: 11-16-2024 Patient encounter procedure 11/16/2024 10:50 AM EDT Office Visit [facility] [address] [place] [phone] Mathieu Naqvi MD [address] [place] [address] [facility] Start: 11-14-2024 Bacteria identified in Urine by Culture Urine Culture [place] Start: 11-14-2024 Urine culture [place] Start: 11-09-2024 End: 11-09-2024 Professional / ancillary services management 11/09/2024 1:45 PM EDT Ancillary Procedure [facility] MR [address] [place] [phone] [facility] Start: 11-09-2024 End: 11-09-2024 Patient encounter procedure 11/09/2024 10:00 AM EDT Office Visit [facility] [place] [address] [facility] [place] [phone] Da Phillip, DO [address] [place] [address] [facility] [place] Start: 11-02-2024 End: 11-02-2024 Patient encounter procedure 11/02/2024 10:30 AM EDT Office Visit [facility] [address] [place] [address] Brice Estrella, DO [address] [place] [address] [facility] Start: 10-30-2024 Urine culture [place] Start: 10-30-2024 Bacteria identified in Urine by Culture Urine Culture [place] Start: 10-13-2024 Bacteria identified in Urine by Culture Urine Culture [place] Start: 10-13-2024 Urine culture [place] Start: 10-13-2024 Insulin C-peptide measurement [place] Start: 09-28-2024 End: 09-28-2024 Patient encounter procedure 09/28/2024 1:15 PM EST Office Visit [facility] [place] [address] [place] [phone] Olman De La Rosa DO [address] [place] [address] [facility] [place] Start: 09-10-2024 End: 09-10-2024 ambulatory 09/10/2024 1:00 PM EST Evaluation [facility] [address] [place] [phone] Sofya Brasher, OT [address] [place] [address] [facility] Start: 09-03-2024 End: 09-03-2024 Patient encounter procedure [facility] [place] Comment on above: Arrived Start: 09-03-2024 End: 09-03-2024 ambulatory 09/03/2024 12:30 PM EST Evaluation [facility] [address] [place] [phone] Sofya Brasher, OT [address] [place] [address] [facility] Start: 08-31-2024 End: 08-31-2024 Patient encounter procedure [facility] Comment on above: Arrived Start: 08-24-2024 End: 08-24-2024 Clinical Support 08/24/2024 10:45 AM EST Clinical Support [facility] [place] [address] [place] [phone] [facility] [place] Start: 08-20-2024 End: 08-20-2025 Creatinine [Mass/volume] in Serum or Plasma Creatinine, Serum Lab Routine Loss of consciousness (CMS/HCC) Expected: 08/20/2024 (Approximate), Expires: 08/20/2025 [facility] Comment on above: Expected: 08/20/2024 (Approximate), Expi res: 08/20/2025 Start: 08-20-2024 End: 08-20-2025 EEG, Including Recording Awake or Asleep EEG, Including Recording Awake or Asleep Neurology Routine Loss of consciousness ([facility]/HCC) Expected: 08/20/2024 (Approximate), Expires: 08/20/2025 [facility] Comment on above: Expected: 08/20/2024 (Approximate), Expi res: 08/20/2025 Start: 08-20-2024 End: 08-20-2025 EMG 2 Extremities EMG 2 Extremities Neurology Routine Bilateral hand numbness Expected: 08/20/2024, Expires: 08/20/2025 [facility] Work Phone: Comment on above: Expected: 08/20/2024, Expires: Start: 08-20-2024 End: 08-20-2025 MR Brain WO and W contrast IV MR brain w and wo contrast routine Imaging Routine Loss of consciousness ([facility]/HCC) Expected: 08/20/2024, Expires: 08/20/2025 [facility] Comment on above: Expected: 08/20/2024, Expires: Start: 08-20-2024 End: 08-20-2024 Patient encounter procedure 08/20/2024 9:00 AM EST Office Visit [facility] [address] [phone] Olman De La Rosa, [address] [place] [address] [facility] [place] Start: 08-18-2024 End: 08-18-2025 25-hydroxyvitamin D3 [Mass/volume] in Serum or Plasma Vitamin D 25 hydroxy Total Lab Routine Type 2 diabetes mellitus with hyperglycemia, with long-term current use of insulin ([facility]) Expected: 08/18/2024 (Approximate), Expires: 08/18/2025 [facility] Comment on above: Expected: 08/18/2024 (Approximate), Expi res: 08/18/2025 Start: 08-18-2024 End: 08-18-2025 C-peptide C-peptide Lab Routine Type 2 diabetes mellitus with hyperglycemia, with long-term current use of insulin ([facility]) Expected: 08/18/2024 (Approximate), Expires: 08/18/2025 [facility] Work Phone: Comment on above: Expected: 08/18/2024 (Approximate), Expi res: 08/18/2025 Start: 08-18-2024 End: 08-18-2025 Lipid 1996 panel - Serum or Plasma Lipid panel Lab Routine Type 2 diabetes mellitus with hyperglycemia, with long-term current use of insulin ([facility]) Expected: 08/18/2024 (Approximate), Expires: 08/18/2025 [facility] Comment on above: Expected: 08/18/2024 (Approximate), Expi res: 08/18/2025 Start: 08-18-2024 End: 08-18-2025 Microalbumin/Creatinine panel in random Urine Microalbumin / creatinine urine ratio Lab Routine Type 2 diabetes mellitus with hyperglycemia, with long-term current use of insulin ([facility]) Expected: 08/18/2024 (Approximate), Expires: 08/18/2025 [facility] Comment on above: Expected: 08/18/2024 (Approximate), Expi res: 08/18/2025 Start: 08-18-2024 End: 08-18-2025 Renal function panel Renal function panel Lab Routine Type 2 diabetes mellitus with hyperglycemia, with long-term current use of insulin ([facility]/HCC) Expected: 08/18/2024 (Approximate), Expires: 08/18/2025 [facility] Comment on above: Expected: 08/18/2024 (Approximate), Expi res: 08/18/2025 Start: 08-18-2024 End: 08-18-2024 Patient encounter procedure 08/18/2024 10:30 AM EST Office Visit [facility] [address] [place] [address] Mathieu Naqvi MD [address] [place] [address] Arrived [facility] Comment on above: Arrived Start: 07-27-2024 End: 07-27-2024 Patient encounter procedure 07/27/2024 1:00 PM EST Office Visit [facility] [address] [place] [phone] Chana Iglesias, AUD [address] [place] [address] [facility] Start: 05-04-2024 End: 05-04-2024 Patient encounter procedure 05/04/2024 10:15 AM EDT Office Visit [facility] [place] [address] [place] [address] Da Phillip, DO [address] [place] [address] Arrived [facility] [place] Comment on above: Arrived Start: 04-13-2024 End: 04-13-2024 Patient encounter procedure 04/13/2024 11:00 AM EDT Office Visit [facility] [place] [address] [place] [address] Da Phillip, DO [address] [place] [address] [facility] [place] Start: 04-10-2024 End: 04-10-2024 Patient encounter procedure [facility] [place] Comment on above: Arrived Start: 03-29-2024 Influenza vaccination Influenza Vaccine (#1) [facility] Start: 03-26-2024 End: 03-26-2025 Thyrotropin [Units/volume] in Serum or Plasma [facility] Comment on above: Expected: 03/26/2024 (Approximate), Expi res: 03/26/2025 Start: 03-26-2024 End: 03-26-2025 Triiodothyronine (T3) [Mass/volume] in Serum or Plasma T3 Lab Routine Thyroid nodule (CMS/HCC) Expected: 03/26/2024 (Approximate), Expires: 03/26/2025 [facility] Work Phone: Comment on above: Expected: 03/26/2024 (Approximate), Expi res: 03/26/2025 Start: 03-26-2024 End: 03-26-2024 Patient encounter procedure 03/26/2024 11:00 AM EDT Office Visit [facility] [place] [address] [place] [phone] Da Phillip DO [address] [place] [address] Arrived [facility] Comment on above: Arrived Start: 10-08-2023 End: 10-08-2023 Patient encounter procedure 10/08/2023 10:00 AM EDT [facility] [address] [place] [phone] Brice Estrella DO [address] [address] [facility] Start: 07-29-2023 Pneumococcal Vaccine: 65+ Years (3 of 3 - PPSV23 or PCV20) Pneumococcal Vaccine: 65+ Years (3 of 3 - PPSV23 or PCV20) [facility] Start: 1994 Screening for malignant neoplasm of breast Mammogram [facility] Start: 1973 Urine screening for protein Diabetes: Urine Protein Screening [facility] Start: 1964 Glaucoma screening Diabetes: Retinopathy Screening [facility] Start: 1954 Hemoglobin A1c measurement Diabetes: Hemoglobin A1C [facility] Start: 1954 Medicare Annual Wellness (AWV) Medicare Annual Wellness (AWV) [facility] Start: 1954 Screening for malignant neoplasm of colon [facility] Renal function 1999 panel - Serum or Plasma [place] Renal function 1999 panel - Serum or Plasma [facility] Immunizations Immunization Date Immunization Notes Care Provider Fa cility 06-11-2024 zoster vaccine recombinant Kang KARYN [facility] 01-11-2024 zoster vaccine recombinant Kang KARYN [facility] 12-27-2023 zoster vaccine recombinant Da Saeededenmaicol DO Work Phone: [facility] 06-30-2023 Influenza, High-dose Seasonal, Quadrivalent, Preservative Free Da Biedenbach DO Work Phone: [facility] 06-30-2023 influenza virus vaccine, unspecified formulation Da Biedenbach DO Work Phone: [facility] 10-30-2022 influenza virus vaccine, unspecified formulation Kang KARYN [facility] 10-30-2022 Influenza, High-dose Seasonal, Quadrivalent, Preservative Free Da Biedenbach DO Work Phone: [facility] 05-31-2022 influenza virus vaccine, unspecified formulation Kang BOSS [facility] 05-31-2022 Influenza, Seasonal, Quadrivalent, Adjuvanted Da Biedenbach DO Work Phone: [facility] 12-19-2020 SARS-CoV-2 (COVID-19 ) mRNA-1273 vaccine Kang BOSS [facility] 11-22-2020 SARS-CoV-2 (COVID-19 ) mRNA-1273 vaccine Kang BOSS [facility] 11-14-2020 SARS-CoV-2 (COVID-19 ) mRNA-1273 vaccine Michele Jane [facility] 06-01-2020 influenza virus vaccine, unspecified formulation Kang BOSS [facility] 06-01-2020 pneumococcal conjuga te vaccine, 13 valent Da Traceymaicol DO Work Phone: [facility] 06-01-2020 Seasonal trivalent influenza vaccine, adjuvanted, preservative free Da Phillip DO Work Phone: [facility] 04-28-2019 influenza virus vaccine, unspecified formulation Kang BOSS [facility] 04-28-2019 influenza, seasonal, injectable Da Phillip DO Work Phone: [facility] 07-29-2018 pneumococcal polysaccharide vaccine, 23 valent Da Jacintoteresamaicol DO Work Phone: [facility] 04-18-2018 tetanus toxoid, redu soledad diphtheria toxoid, and acellular pertussis vaccine, adsorbed RECREATION THERAPY DIRECTOR-C Aggie Davis Work Phone: [place] Payers Date Payer Category Payer Private Health Insurance [id number] 2024 Self-pay [id number] 2022 Unknown LAMIN Nunes O [id number] 2022-Present [address] [place] [address] [id number]. [id number] 2022 Worker's Compensation LAMIN Harper [facility] [id number]. [id number] 2022 Medicare [id number]. 1.13.693. 2.7.3.707591.315 2022 Medicare (Managed Care) [employer] M [employer] ADVANTAGE 1.2.840.196895.1.13.693. [id number] 1959 Medicare [id number] 1959 Unknown [id number] 1954 Unknown [id number] 2.16840.1.026999.3.579. 2.593 1954 Unknown [id number] 2.16840.1.014052.3.579. 2.593 1954 Unknown [id number]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 [phone] PCP - General Family Medicine 04/10/24 Aggie Davis MD [address] [place] [address] Referring Physician Family Medicine 04/10/24 Da Phillip DO [address] [place] [address] Otolaryngology 04/10/24 Olman De La Rosa DO [address] [place] [phone] Referring Physician Neurology 08/20/24 Team Status: Active Member Role Status Dates Aggie Davis , RECREATION THERAPY DIRECTOR-C Primary Care Provider Active Start: July 22, 2024 Imer Green DO Attending Provider Active Sta rt: July 22, 2024 Patient'S Librarian Relationship Specialty Start Date End Date Carter Granger MD [address] [place] [phone] PCP - General Family Medicine 04/10/24 Aggie Davis MD [address] [place] [address] Referring Physician Family Medicine 04/10/24 Da Phillip DO [address] [place] [address] Otolaryngology 04/10/24 Olman De La Rosa DO [address] [place] [phone] Referring Physician Neurology 08/20/24 Patient'S Librarian Relationship Specialty Start Date End Date Carter Granger MD [address] [place] [phone] PCP - General Family Medicine 04/10/24 Aggie Davis MD [address] [place] [address] Referring Physician Family Medicine 04/10/24 Da Phillip, [address] [place] [address] Otolaryngology 04/10/24 Olman De La Rosa DO [address] [place] [phone] Referring Physician Neurology 08/20/24 Patient'S Librarian Relationship Specialty Start Date End Date Carter Granger MD [address] [place] [phone] PCP - General Family Medicine 04/10/24 Aggie Davis MD [address] [place] [address] Referring Physician Family Medicine 04/10/24 Da Phillip, [address] [place] [address] Otolaryngology 04/10/24 Olman De La Rosa DO [address] [place] [phone] Referring Physician Neurology 08/20/24 Patient'S Librarian Relationship Specialty Start Date End Date Carter Granger MD [address] [place] [phone] PCP - General Family Medicine 04/10/24 Aggie Davis MD [address] [place] [address] Referring Physician Family Medicine 04/10/24 Da Phillip, [address] [place] [address] Otolaryngology 04/10/24 Olman De La Rosa DO [address] [place] [phone] Referring Physician Neurology 08/20/24 Patient'S Librarian Relationship Specialty Start Date End Date Carter Granger MD [address] [place] [phone] PCP - General Family Medicine 04/10/24 Aggie Davis MD [address] [place] [address] Referring Physician Family Medicine 04/10/24 Da Phillip, [address] [place] [address] Otolaryngology 04/10/24 Olman De La Rosa DO [address] [place] [phone] Referring Physician Neurology 08/20/24 Patient'S Librarian Relationship Specialty Start Date End Date Catrer Granger MD [address] [place] [phone] PCP - General Family Medicine 04/10/24 Aggie Davis MD [address] [place] [address] Referring Physician Family Medicine 04/10/24 Da Phillip DO [address] [place] [address] Otolaryngology 04/10/24 Olman De La Rosa DO [address] [place] [phone] Referring Physician Neurology 08/20/24 Patient'S Librarian Relationship Specialty Start Date End Date Carter Granger MD [address] [place] [address] PCP - General Family Medicine 04/10/24 Aggie Davis MD [address] [place] [address] Referring Physician Family Medicine 04/10/24 Da Phillip DO [address] [place] [address] Otolaryngology 04/10/24 Olman De La Rosa DO [address] [place] [phone] Referring Physician Neurology 08/20/24 Team Status: Inactive Member Role Status Dates AVIVA Dey Attending Provider Active Start: December 22, 2024 End: December 22, 2024 Team Status: Inactive Member Role Status Dates Olman De La Rosa DO Attending Provider Active Start: January 04, 2025 End: January 04, 2025 AVIVA Dey Primary Care Provider Active Start: January 04, 2025 End: January 04, 2025 Reason for Visit (unrecogniz ed section and content) Reason Comments Injections Synvisc one Reason Comments Thyroid Nodule FNA results Reason Comments Thyroid Nodule Lab results Reason Comments Thyroid Nodule FNA Reason Comments Thyroid Nodule Thyroid nodule Reason Comments Pain Reason Comments Follow-up Reason Comments Thyroid Nodule Reason Comments Diabetes Follow-up LAB Reason Comments Follow-up MRI [facility] 11/09/24 Goals (unrecognized section and content) Goals may [...] BE BASED ON THE PRIMARY CLINICAL RECORDS. [employer] provides no warranty or guarantee of the accuracy or completeness of information in this document.
[2025-03-09 13:59] VITALS: BP 144/74; PULSE 90; TEMP 36.8; O2SAT 98; BMI 37.9
[2025-03-09] MEDS: HYDROCODONE/ACET 5-325 MG TABLET 1 TAB PO (14:40)
[2025-03-09] MEDS: ORPHENADRINE 60 MG/2 ML VIAL IM (14:40)
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
[2025-03-09 16:45] VITALS: BP 110/78; PULSE 74; O2SAT 95
== END 2025-03-09 16:48 | disposition home or self-care (01) ==
PROVIDERS: Emergency Provider Emergency Medicine; PCP Nurse Practitioner Family
DX: M54.16 Radiculopathy, lumbar region (principal); M54.30 Sciatica, unspecified side; M51.369 Other intervertebral disc degeneration, lumbar region without mention of lumbar back pain or lower extremity pain; M85.88 Other specified disorders of bone density and structure, other site
CPT/HCPCS: 72100; 96372; 99284; J2360

== ENCOUNTER 2025-04-01 14:51 | Outpatient (OUT) | payer MEDICARE, SELFPAY ==
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
--- OUTSIDE RECORDS SUMMARY | 2025-04-01 15:34 | XMS_ITS | CCD ---
Author Organization [facility] Care Team Providers Care Mud Jack Operator Name Role Phone AGGIE FU Primary Care Physician [phone] AGGIE DAVIS Attending Unavailable SUSAN, AGGIE Primary Care Unavailable SUSAN, AGGIE Admitting Unavailable ZIEBER, DR BECKY Morelos Consulting Unavailable SUSAN, AGGIE Consulting Unavailable SUSAN, AGGIE Attending Unavailable SUSAN, AGGIE Primary Care Unavailable SUSAN, AGGIE Admitting Unavailable RAGHAV, DR BECKY Morelos Consulting Unavailable SUSAN, AGGIE Consulting Unavailable SUSAN, AGGIE Attending Unavailable SUSAN, AGGIE Primary Care Unavailable RAGHAV, DR BECKY Morelos Consulting Unavailable SUSAN, AGGIE Admitting Unavailable SUSAN, AGGIE Consulting Unavailable SUSAN, AGGIE Consulting Unavailable SUSAN, AGGIE Admitting Unavailable SUSAN, AGGIE Primary Care Unavailable SUSAN, AGGIE Attending Unavailable SUSAN, AGGIE Consulting Unavailable SUSAN, AGGIE Attending Unavailable SUSAN, AGGIE Admitting Unavailable SUSAN, AGGIE Primary Care Unavailable SUSAN, AGGIE Primary Care Unavailable LISA WALLS Attending Unavailable KAVITA LISA Admitting Unavailable KAVITA ., VICTORIA Consulting [...] Care Unavailable CAMMIE NAIR Attending Unavailable JOYCE ., DR AGUSTIN Consulting Unavailable CAMMIE NAIR Admitting Unavailable BRIANNA KU Consulting Unavailable SUSAN, AGGIE Primary Care Unavailable CRICKET ., DR GARCIA Attending Unavailable CRICKET ., DR GARCIA Admitting Unavailable SUSAN, AGGIE S Primary Care Physician Unallocated, [place] Provider Primary Care Provider AVIVA Davis Aggie Isabel Primary Care Provider [phone] DO Brice Estrella Attending Provider AVIVA Davis Aggie Isabel Primary Care Provider [phone] AVIVA Davis Aggie Isabel Attending Provider DO Da Phillip Attending Provider Aggie Davis MD Unavailable Carter Granger MD Primary Care Provider Da Phillip DO Unavailable Brice Estrella Referring Unavailable Brice Estrella Attending Unavailable Tiny Fallon Attending Unavailable Tiny Fallon Attending Unavailable Unallocated , Sameer Provider Primary Care Provi neris Olman De La Rosa DO Unavailable Aretha Valadez APRN Attending Provider Susan LEARNING ENGINEER-C, Aggie Isabel Primary Care Provider Olman De La Rosa DO Attending Provider [phone] Susan LEARNING ENGINEER-C, Aggie Isabel Primary Care Provider [phone] Aretha Valadez APRN Attending Provider Susan LEARNING ENGINEER-C, Aggie Isabel Primary Care Provider Olman De La Rosa DO Attending Provider [phone] Aretha Valadez APRN Attending Provider Dinah Sepulveda MD Attending Provider [place], Ehab A Other Provider Mathieu Naqvi MD Other Provider Jose Nair DO Attending Provider Unavailab Jose Wiggins DO Attending Provider Susan LEARNING ENGINEER-CAggie Attending Provider LIZBETH, AHMAD F Attending Unavailable LIZBETH, MATHIEU F Referring Unavailable OLMAN DE LA ROSA Attending Unavailable SUSAN, AGGIE Referring Unavailable ESTRELLAOLMAN COOPER Referring Unavailable BROWN, BRICE A Attending Unavailable BROWN, BRICE A Referring Unavailable BROWN, BRICE A Referring Unavailable ESTRELLA, OLMAN Attending Unavailable BROWN, BRICE A Attending Unavailable DA PHILLIP Attending Unavailable KENJI, DA Rubio Attending Unavailable AGGIE DAVIS Referring Unavailable BROWN, BRICE Bah Attending Unavailable DELORES, BRICE Bah Referring Unavailable DA PHILLIP Attending Unavailable AGGIE DAVIS Referring Unavailable BROWN, BRICE Bah Referring Unavailable LIZBETHMATHIEU NGUYEN F Attending Unavailable LIZBETH, MATHIEU F Referring Unavailable BROWN, BRICE A Attending Unavailable BROWN, BRICE A Referring Unavailable DA PHILLIP Attending Unavailable DA PHILLIP Attending Unavailable Sue Henning Unavailable Unavailable Carter Granger MD Primary Care Provider Susan WALTERS-CAggie Primary Care Provider Da Phillip Admitting Unavailable Da Phillip Attending Unavailable Aggie Davis Primary Care Unavailable Da Phillip Admitting Unavailable Da Phillip Attending Unavailable Aretha Valadez Attending Unavailable Aggie Davis Primary Care Unavailable Aretha Valadez Admitting Unavailable Olman De La Rosa Admitting Unavailab Olman Atwood Attending Unavailab Aggie Luna Primary Care Unavailable Aggie Davis Primary Care Unavailable Aretha Valadez Admitting Unavailable Aretha Valadez Attending Unavailable Elsami, Ehab A Consulting Unavailable Derick, Dinah Admitting Unavailable Derick, Dinah Attending Unavailable Aggie Davis Primary Care Unavailable Mathieu Naqvi Consulting Unavailable Jose Nair Admitting Unavailable Jose Nair Attending Unavailable Susan, Aggie Hall Attending Unavailable Susan, Aggie Hall Admitting Unavailable Susan, Aggie Hall Attending Unavailable Susan, Aggie Isabel Admitting Unavailable Susan, Aggie Porrase Primary Care Unavailable Susan, Aggie Hall Attending Unavailable Susan, Aggie Isabel Admitting Unavailable ELTAHAWY, EHAB Attending Unavailable ELTAHAWY, EHAB Attending Unavailable Kang BOSS Attending Unavailable Brown, Brice A Admitting Unavailable Brown, Brice A Referring Unavailable Brown, Brice A Attending Unavailable Brown, Brice A Referring Unavailable Brown, Brice A Attending Unavailable Brown, Brice A Admitting Unavailable KARYN, Kang Morelos Attending Unavailable Carter Granger Referring Unavailable KARYN, Kang Morelos Attending Unavailable Brown, Brice A Referring Unavailable Brown, Brice A Admitting Unavailable Brown, Brice A Attending Unavailable Carter Granger Referring Unavailable Bhavesh, Ashley Admitting Unavailable Bhavesh, Ashley Attending Unavailable Allergies Allergy Classification Reported Allergen(s) Allergy Type Date of Onset Reaction(s) Facility (14 sources) Acetaminophen / HYDROcodone; Translations: [acetaminophen-hy drocodone] Drug Allergy itching , sick to stomach [facility] (14 sources) Acetaminophen / oxyCODONE; Translations: [acetaminophen-ox ycodone] Drug Allergy sleeps a long time [facility] (14 sources) acetaminophen / propoxyphene; Translations: [acetaminophen-pr opoxyphene] Drug Allergy Itching [facility] (20 sources) Codeine; Translations: [codeine] Drug Allergy 1 Rash [facility] (20 sources) Penicillins; Translations: [penicillins] Drug allergy 4 Difficulty breathing at rest, Hives [facility] (20 sources) Propoxyphene; Translations: [propoxyphene] Drug Allergy 7 Itching, Unknown [facility] (1 source) Propoxyphene Drug Allergy 4 [facility] (1 source) ZOLMitriptan Drug Allergy 4 [facility] (1 source) Darvocet-N 100 Drug allergy (disorder) 4 [facility] (20 sources) Acetaminophen / HYDROcodone; Translations: [HYDROCODONE-ACET AMINOPHEN] Drug Allergy 5 Unknown [facility] (20 sources) Acetaminophen / oxyCODONE; Translations: [OXYCODONE-ACETAM INOPHEN] Drug Allergy 1 [facility] (20 sources) HYDROcodone Drug Allergy 1 Unknown [facility] (20 sources) traMADol Drug Allergy 1 [facility] (15 sources) Acetaminophen; Translations: [acetaminophen] Drug Allergy 3 Itching [facility] (15 sources) oxyCODONE; Translations: [oxycodone] Drug Allergy 3 Drowsy [facility] (15 sources) Penicillin; Translations: [penicillin G] Drug Allergy 3 welts [facility] (15 sources) ZOLMitriptan; Translations: [zolmitriptan] Drug Allergy 3 felt like I was on [facility] (11 sources) predniSONE; Translations: [prednisone] Drug Allergy 5 Agitated [facility] (20 sources) metFORMIN; Translations: [METFORMIN] Drug Allergy 5 Diarrhea [facility] (1 source) Codeine Drug Allergy 5 [facility] (1 source) HYDROcodone Drug Allergy 5 [facility] (1 source) metFORMIN Drug Allergy 5 [facility] (1 source) Propoxyphene Drug Allergy 5 [facility] (1 source) PROPOXYPHENE N-ACETAMINOPHEN; Translations: [PROPOXYPHENE N-ACETAMINOPHEN] Propensity to adverse reactions to drug (disorder) 5 [facility] Medications Current Medications Medication Drug Class(es) [...] hours as needed November 23, 2024 12:00am [id number] 200 actuat albuterol 0.09 mg/actuat metered dose [...] q12hr, # 20 cap(s), Refills(s) 0, Pharmacy: [facility], 152, cm, 07/07/24 18:23:00 EST, Height/Length Dosing, [...] 1 Start: 09-19-2020 take 1 tablet by ainsley th every six hours as needed Advil Allergy Sinus oral tablet 1 tab(s), Oral, q6hr as needed for cold symptoms Start Date: 09/19/20 Status: Ordered Start: 09-19-2020 take 1 tablet by ainsley th every six hours as needed Advil [...] D2) 1,250 mcg (50,000 unit) capsule Active 66560 UNIT PO every week November 23, 2024 12:00am Start: 11-16-2024 End: 05-03-2025 take 1 capsule by mouth every week ergocalciferol (Vitamin D-2) 1.25 MG (48961 UT) capsule Indications: Type 2 diabetes mellitus [...] Propionate (Flon ase Allergy Relief) 50 mcg/actuation [place],Suspension Discontinued 1 SPRAY INTRANASAL As Directed as [...] 12:00am Start: 12-08-2024 inject 24 [IU] by porras bcutaneous injection twice daily Novolin N 24 [...] hyperglycemia, with long-term current use of insulin ([facility]) Inject 0.08 mL (8 Units) under [...] (Reorder) Start: 04-29-2023 inject 0.25 mg by porras bcutaneous injection every week Ozempic, 0.25 or 0.5 MG/DOSE, 2 MG/3ML solution pen-injector 0.25 mg Subcutaneous weekly for 30 days 04/29/2023 Active Start: 04-29-2023 inject 0.25 mg by porras bcutaneous injection every week Ozempic, 0.25 or [...] g56.02, # 30 tab(s), Refills(s) 0, Pharmacy: [facility] #[id number], 152.4, cm, 06/07/23 6:59:00 EST, Height/Length Dosing [...] day(s), # 50 tab(s), Refills(s) 0, Pharmacy: [facility] #[id number], 152.4, cm, 06/07/23 6:59:00 EST, Height/Length Dosing [...] myocardial infarction; Translations: [Atherosclerotic heart disease of [place] coronary artery without angina pectoris] Onset: 5 [...] (BMI) of 40.0 to 44.9 in adult ([facility])] 08-18-2024 Chronic Other nutritional; endocrine; and [...] Name Value Interpretation Reference Range Facility Reminderson 03-23-2025 Reminders Reminders From: Yajaira Lopez To: EU - Recalls Boss; Sent: 09/07/2024 10:39:37 EST Show up: 01/26/2025 10:39:00 EDT Subject: renal US Due Date/Time: 02/22/2025 10:39:00 EDT Reminder/Recall Pt needs sched for renal US prior to 03/08/25 She needs a Sat/ at [facility] Order placed at [facility]. Will monitor for results. Pt rescheduled her f/u with renal US for 05/2025. A new order has been sent to [facility] for the TOMEKA. Pt is aware and will schedule. Normal [facility] Office Visiton 01-28-2025 Follow-up visit [id number] Virgen Harris 1955 F Date Provider Department Center 01/28/2025 Nely-PONCE SILVESTRE CARD Dina Dejesus Family History Problem Relation Age of Onset Heart failure Mother Heart failure Father Heart failure Paternal Grandmother Family Status - Relation Status Age at Mother Father Paternal Grandmother Level of Service:14042 DC OFFICE/OUTPATIENT ESTABLISHED LOW MDM 20 MIN Normal [facility] Orders Onlyon 01-27-2025 Orders Only [id number] Virgen Harris 1955 F Date Provider Department [place] 01/27/2025 [id number], HISTORICAL BH CARD Dina Hos Family History Problem Relation Age of Onset Heart failure Mother Heart failure Father Heart failure Paternal Grandmother Family Status - Relation Status Age at Mother Father Paternal Grandmother Normal [facility] CHEMISTRYOrdered By: Oliver GUALLPA User on 12-25-2024 Glucose [Mass/Vol] 217 mg/dL High 55 - 99 mg/dL [facility] POC Subsection Comment on above: Result Comment: No C overage Given Cleaned Meter POC Username HAYLEE RODRIGUEZ Invalid Interpretation Code [facility] POC Subsection Sodium [Moles/Vol] [id number] mmol/L Invalid Interpretation Code [facility] POC Subsection Sodium [Moles/Vol] 890882009 mmol/L Invalid Interpretation Code [facility] POC Subsection Glucose [Mass/Vol] 330 mg/dL High 55 - 99 mg/dL [facility] POC Subsection Comment on above: Result Comment: Karen alexis Meter POC Username CLAUDINE TERAN Invalid Interpretation Code [facility] POC Subsection Sodium [Moles/Vol] [id number] mmol/L Invalid Interpretation Code [facility] POC Subsection Sodium [Moles/Vol] 691699845 mmol/L Invalid Interpretation Code [facility] POC Subsection CHEMISTRYOrdered By: Cinthia Mccarty on 12-25-2024 HbA1c (Bld) [Mass fraction] 8.4 % High <=5.9% [facility] ChemAutoSS Capillary Glucose POCon 11-28 Glucose [Mass/Vol] 217 mg/dL High 55-99 [facility] Comment on above: Result Comment: No C overage Given Cleaned Meter Performed By: #### 2 [id number] #### [facility] [address] [place] [address] Glucose [Mass/Vol] 330 mg/dL High 55-99 [facility] Comment on above: Result Comment: Karen alexis Meter Performed By: #### 2 [id number] #### [facility] [address] [place] [address] [facility] CAPILLARY GLUCOSE POCon 12-25-2024 Glucose [Mass/Vol] 217 mg/dL High 55 - 99 mg/dL [facility] Comment on above: No Coverage Given Cleaned Meter Interpretation and review of laboratory results Abnormal [facility] Original Ordering Provider: DO Brice Estrella [facility] [id number] 12-25-2024 Interpretation and review of laboratory results Abnormal [facility] Original Ordering Provider: DO Brice Estrella [facility] [id number] 12-25-2024 HbA1c (Bld) [Mass fraction] 8.4 % High <=5.9 [facility] Comment on above: Performed By: #### 7 [id number] #### [facility] [address] [place] [address] Urine Cultureon 12-22-2024 Bacteria identified Cx Nom (U) 15,000 colonies/ml mixed bacterial skin contaminants 2 Days PERFORMED BY: [place] [address] PATHOLOGIST NAPHTHALENE OPERATOR LI GARZON M.D. Normal [facility] Comment on above: Performed By: #### U JAMSHID, MG, PTH, CBCNO #### [address] Urine cultureOrdered By: Alma Davis on 12-22-2024 Bacteria identified Cx Nom (U) Urine culture [facility] Glucose (Bld) [Mass/Vol]Orde red By: Lisa Koehler on 11-16-2024 Glucose Blood, POC 203 mg/dL [facility] - Hematology and Cell countson 11-16-2024 HbA1c (Bld) [Mass fraction] 6.6 % [facility] No Panel InformationOrdered By: Lisa Koehler on 11-16-2024 [facility] Urine Cultureon 11-14-2024 Bacteria identified Cx Nom (U) >100,000 colonies/ml mixed bacterial skin contaminants 2 Days PERFORMED BY: [place] [address] PATHOLOGIST NAPHTHALENE OPERATOR NISHANT MORLEY M.D. Normal [facility] Comment on above: Performed By: #### U JAMSHID, MG, PTH, CBCNO #### [facility] [address] Urine cultureOrdered By: Alma Davis on 11-14-2024 Bacteria identified Cx Nom (U) Urine culture [facility] MR ELBOW RIGHT WO IV CONTRAS Ton [...] bacterial skin contaminants 2 Days PERFORMED BY: [address] [place] [address] PATHOLOGIST NAPHTHALENE OPERATOR NISHANT MORLEY M.D. Normal [facility] Comment on above: Performed By: #### C UU #### [facility] [address] Urine cultureOrdered By: Evens Nair on 10-30-2024 Bacteria identified Cx Nom (U) Urine culture [facility] Alanine aminotransferase [En zymatic activity/volume] in Serum or PlasmaOrdered By: Ponce Silvestre on 10-13-2024 ALT [Catalytic activity/Vol] Alanine aminotransferase [Enzymatic activity/volume] in Serum or Plasma [facility] Albumin [Mass/volume] in Ser um or Plasma by Bromocresol green (BCG) dye binding methoOrdered By: Ponce Silvestre on 10-13-2024 Albumin BCG dye [Mass/Vol] Albumin [Mass/volume] in Serum or Plasma by Bromocresol green (BCG) dye binding metho 3.5-5.7 [facility] Alkaline phosphatase [Enzyma tic activity/volume] in Serum or PlasmaOrdered By: Ponce Silvestre on 10-13-2024 ALP [Catalytic activity/Vol] Alkaline phosphatase [Enzymatic activity/volume] in Serum or Plasma 34-104 [facility] Appearance of UrineOrdered B y: Dinah Sepulveda on 10-13-2024 Appearance (U) Urine appearance Abnormal Clear [facility] Aspartate aminotransferase [ Enzymatic activity/volume] in Serum or PlasmaOrdered By: Ponce Sivlestre on 10-13-2024 AST [Catalytic activity/Vol] Aspartate aminotransferase [Enzymatic activity/volume] in Serum or Plasma 13-39 [facility] Bacteria [Presence] in Urine by AutomatedOrdered By: Dinah Sepulveda on 10-13-2024 Bacteria Auto Ql (U) Bacteria [Presence] in Urine by Automated None Seen [facility] Bilirubin Test strip Ql (U)O rdered By: Dinah Sepulveda on 10-13-2024 Bilirubin Ql (U) Bilirubin.total [Presence] in Urine by Test strip Negative [facility] Bilirubin.direct [Mass/volum e] in Serum or PlasmaOrdered By: Ponce Silvestre on 10-13-2024 Bilirubin.direct [Mass/Vol] Bilirubin.direct [Mass/volume] in Serum or Plasma 0.03-0.18 [facility] Bilirubin.total [Mass/volume ] in Serum or PlasmaOrdered By: Ponce Silvestre on 10-13-2024 Bilirubin [Mass/Vol] Bilirubin.total [Mass/volume] in Serum or Plasma 0.3-1.0 [facility] C-peptide measurementOrdered By: Mathieu Naqvi on 10-13-2024 C-Peptide 1.4 ng/mL 1.1-4.4 [facility] Comment on above: C-Peptide reference interval is for fasting patients.Performed at: [facility] [employer] [place] [id number] Director: Kilo Masterson PhD, Phone: [phone] Result Comment: C-Pe ptide reference interval is for fasting patients. Performed at: [facility] [address] [id number] [employer] Specialist: Kilo Masterson PhD, Phone: [phone] PERFORMED BY: [place] [address] PATHOLOGIST NAPHTHALENE OPERATOR NISHANT MORLEY M.D. Performed By: #### L IPID #### [place] [address] [place] #### CPEP #### [facility] , Calcium [Mass/volume] in Ser um or PlasmaOrdered By: Mathieu Naqvi on 10-13-2024 Calcium [Mass/Vol] Calcium [Mass/volume ] in Serum or Plasma 8.6-10.3 [facility] Carbon dioxide, total [Moles /volume] in Serum or PlasmaOrdered By: Mathieu Naqvi on 10-13-2024 CO2 [Moles/Vol] Carbon dioxide, tota l [Moles/volume] in Serum or Plasma 21.0-31.0 [facility] Chloride [Moles/volume] in S yoav or PlasmaOrdered By: Mathieu Naqvi on 10-13-2024 Chloride [Moles/Vol] Chloride [Moles/volume] in Serum or Plasma 98-107 [facility] Cholesterol [Mass/volume] in Serum or PlasmaOrdered By: Mathieu Naqvi on 10-13-2024 Cholesterol [Mass/Vol] Cholesterol [Mass/volume] in Serum or Plasma Low 140-200 [facility] Comment on above: Chol less than 200 m g/dl low riskChol 201-239 mg/dl borderline riskChol 240 mg/dl and greater high risk Cholesterol in HDL [Mass/vol ume] in Serum or PlasmaOrdered By: Mathieu Naqvi on 10-13-2024 Cholesterol in HDL [Mass/Vol] Serum or plasma high density lipoprotein (HDL) cholesterol measurement 23- [facility] Comment on above: HDL CHOL ATP-III CLA SSIFICATION Cardiovascular RiskHDL > or equal to 60 mg/dL LOWHDL < 40 mg/dL HIGH Cholesterol in LDL Calc [Mas s/Vol]Ordered By: Mathieu Naqvi on 10-13-2024 Cholesterol in LDL [Mass/Vol] Cholesterol in LDL [Mass/volume] in Serum or Plasma by calculation 0-100 [facility] Comment on above: LDL ATP III CLASSIFI CATIONLDL less than 100 mg/dL OptimalLDL 100-129 mg/dL Near or above optimalLDL 130-159 mg/dL Borderline highLDL 160-189 mg/dL HighLDL greater than 189 mg/dL Very high Cholesterol in VLDL Calc [Ma ss/Vol]Ordered By: Mathieu Naqvi on 10-13-2024 Cholesterol in VLDL [Mass/Vol] Cholesterol in VLDL [Mass/volume] in Serum or Plasma by calculation [facility] Color Auto (U)Ordered By: Ab elias Sepulveda on 10-13-2024 Color (U) Color of Urine by Auto Yellow Fi [facility] Creatinine [Mass/volume] in Serum or PlasmaOrdered By: Mathieu Naqvi on 10-13-2024 Creatinine [Mass/Vol] Creatinine [Mass/volume] in Serum or Plasma High 0.60-1.20 [facility] Creatinine [Mass/volume] in UrineOrdered By: Mathieu Naqvi on 10-13-2024 Creatinine (U) [Mass/Vol] Creatinine [Mass/volume] in Urine [facility] Comment on above: No reference range e stablished Dipstick and Microscopicon 0 10-13-2024 Appearance (U) Cloudy Critically abnormal Clear [facility] Comment on above: Order Comment: Name Collection Type:: Clean-Voided Midstream Performed By: #### U JAMSHID, MG, PTH, CBCNO #### [facility] [address] [place] [address] [place] Bacteria,Urine None Seen Normal None Seen [facility] Comment on above: Order Comment: Name Collection Type:: Clean-Voided Midstream Performed By: #### U JAMSHID, MG, PTH, CBCNO #### [facility] [address] [place] [address] [place] Bilirubin,Urine Negative Normal Negative [facility] Comment on above: Order Comment: Name Collection Type:: Clean-Voided Midstream Performed By: #### U JAMSHID, MG, PTH, CBCNO #### [address] Color (U) Light-Yellow Normal Yellow [facility] Comment on above: Order Comment: Name Collection Type:: Clean-Voided Midstream Performed By: #### U JAMSHID, MG, PTH, CBCNO #### [facility] [address] [place] [address] Glucose Ql (U) 1000 mg/dL High Normal [facility] Comment on above: Order Comment: Name Collection Type:: Clean-Voided Midstream Performed By: #### U JAMSHID, MG, PTH, CBCNO #### [address] Hyaline Casts,Urine None Normal 0-8 [facility] Comment on above: Order Comment: Name Collection Type:: Clean-Voided Midstream Performed By: #### U JAMSHID, MG, PTH, CBCNO #### [address] Ketones Ql (U) Negative Normal Negative [facility] Comment on above: Order Comment: Name Collection Type:: Clean-Voided Midstream Performed By: #### U JAMSHID, MG, PTH, CBCNO #### [address] Leukocyte esterase Test strip Ql (U) 3+ High Negative [facility] Comment on above: Order Comment: Name Collection Type:: Clean-Voided Midstream Performed By: #### U JAMSHID, MG, PTH, CBCNO #### [place] [address] [place] Mucus,Urine Rare Normal [facility] Comment on above: Order Comment: Name Collection Type:: Clean-Voided Midstream Result Comment: PERF ORMED BY: [place] [address] PATHOLOGIST NAPHTHALENE OPERATOR NISHANT MORLEY M.D. Performed By: #### U JAMSHID, MG, PTH, CBCNO #### [address] Nitrite,Urine Negative Normal Negative [facility] Comment on above: Order Comment: Name Collection Type:: Clean-Voided Midstream Performed By: #### U JAMSHID, MG, PTH, CBCNO #### [address] Occult Blood,Urine Negative Normal Negative [facility] Comment on above: Order Comment: Name Collection Type:: Clean-Voided Midstream Performed By: #### U JAMSHID, MG, PTH, CBCNO #### [address] pH (U) 6.5 [pH] Normal 5.0-9.0 [facility] Comment on above: Order Comment: Name Collection Type:: Clean-Voided Midstream Performed By: #### U JAMSHID, MG, PTH, CBCNO #### [address] Protein,Urine Negative Normal Negative [facility] Comment on above: Order Comment: Name Collection Type:: Clean-Voided Midstream Performed By: #### U JAMSHID, MG, PTH, CBCNO #### [address] RBC,Urine 1-2 Normal 0-4 [facility] Comment on above: Order Comment: Name Collection Type:: Clean-Voided Midstream Performed By: #### U JAMSHID, MG, PTH, CBCNO #### [address] Specificy [place],Urine 1.013 Normal 1.001-1.030 [facility] Comment on above: Order Comment: Name Collection Type:: Clean-Voided Midstream Performed By: #### U JAMSHID, MG, PTH, CBCNO #### [address] Squamous Epithelial Cell,Urine 10-19 High 0-2 [facility] Comment on above: Order Comment: Name Collection Type:: Clean-Voided Midstream Performed By: #### U JAMSHID, MG, PTH, CBCNO #### [facility] [address] Urobilinogen,Urine Normal Normal Normal [facility] Comment on above: Order Comment: Name Collection Type:: Clean-Voided Midstream Performed By: #### U JAMSHID, MG, PTH, CBCNO #### [facility] [address] WBC,Urine 20-49 High 0-4 [facility] Comment on above: Order Comment: Name Collection Type:: Clean-Voided Midstream Performed By: #### U JAMSHID, MG, PTH, CBCNO #### [facility] [address] Epithelial cells.squamous [# /area] in Urine sediment by Automated countOrdered By: Dinah Sepulveda on 10-13-2024 Epithelial cells.squamous Auto (Urine sed) [#/Area] Epithelial cells.squamous [#/area] in Urine sediment by Automated count High 0-2 [facility] Erythrocyte distribution wid th Auto (RBC) [Ratio]Ordered By: Dinah Sepulveda on 10-13-2024 Erythrocyte distribution width (RBC) [Ratio] Erythrocyte distribution width [Ratio] by Automated count 11.9-15.3 [facility] Erythrocytes [#/area] in Uri ne sediment by Automated countOrdered By: Dinah Sepulveda on 10-13-2024 RBC Auto (Urine sed) [#/Area] Erythrocytes [#/area] in Urine sediment by Automated count 0-4 [facility] Globulin Calc (S) [Mass/Vol] Ordered By: Ponce Silvestre on 10-13-2024 Globulin (S) [Mass/Vol] Serum globulin measurement by calculation (mass/volume) [facility] Glucose [Mass/volume] in Ser um or PlasmaOrdered By: Mathieu Naqvi on 10-13-2024 Glucose [Mass/Vol] Glucose [Mass/volume ] in Serum or Plasma High 70-100 [facility] Comment on above: ADA recommended refe [...] in Urine by Test strip High Normal [facility] Hematocrit Auto (Bld) [Volum e fraction]Ordered By: Dinah Sepulveda on 10-13-2024 Hematocrit (Bld) [Volume fraction] Hematocrit [Volume Fraction] of Blood by Automated count 34.0-46.4 [facility] Hemoglobin Test strip Ql (U) Ordered By: Dinah Sepulveda on 10-13-2024 Hemoglobin Ql (U) Hemoglobin [Presence ] in Urine by Test strip Negative [facility] Hemoglobin [Mass/volume] in BloodOrdered By: Dinah Sepulveda on 10-13-2024 Hemoglobin (Bld) [Mass/Vol] Hemoglobin [Mass/volume] in Blood 11.8-15.4 [facility] Hemogram CBC Without Diffon 10-13-2024 Erythrocyte distribution width (RBC) [Ratio] 15.3 % Normal 11.9-15.3 [facility] Comment on above: Performed By: #### U JAMSHID, MG, PTH, CBCNO #### [facility] [address] Hematocrit (Bld) [Volume fraction] 37.7 % Normal 34.0-46.4 [facility] Comment on above: Performed By: #### U JAMSHID, MG, PTH, CBCNO #### [facility] [address] Hemoglobin (Bld) [Mass/Vol] 12.7 g/dL Normal 11.8-15.4 [facility] Comment on above: Performed By: #### U JAMSHID, MG, PTH, CBCNO #### [facility] [address] [place] [address] [place] MCH (RBC) [Entitic mass] 29.3 pg Normal 24.7-34.3 [facility] Comment on above: Performed By: #### U JAMSHID, MG, PTH, CBCNO #### [facility] [address] [place] [address] [place] MCV (RBC) [Entitic vol] 87.1 fL Normal 80-100 [facility] Comment on above: Performed By: #### U JAMSHID, MG, PTH, CBCNO #### [address] Mean Corpuscular HGB Conc 33.6 g/dL Normal 32.0-35.0 [facility] Comment on above: Performed By: #### U JAMSHID, MG, PTH, CBCNO #### [address] Platelet mean volume (Bld) [Entitic vol] 9.9 fL Normal 6.3-10.7 [facility] Comment on above: Result Comment: PERF ORMED BY: [place] [address] PATHOLOGIST NAPHTHALENE OPERATOR NISHANT MORLEY M.D. Performed By: #### U JAMSHID, MG, PTH, CBCNO #### [address] Platelets (Bld) [#/Vol] 192 10*3/uL Normal 150-450 [facility] Comment on above: Performed By: #### U JAMSHID, MG, PTH, CBCNO #### [address] RBC (Bld) [#/Vol] 4.33 10*6/uL Normal 3.60-5.00 [facility] Comment on above: Performed By: #### U JAMSHID, MG, PTH, CBCNO #### [address] WBC (Bld) [#/Vol] 8.4 10*3/uL Normal 3.8-11.6 [facility] Comment on above: Performed By: #### U JAMSHID, MG, PTH, CBCNO #### [address] Hepatic Panelon 10-13-2024 Albumin [Mass/Vol] 3.8 g/dL Normal 3.5-5.7 [facility] Comment on above: Performed By: #### H EPATIC #### [address] Albumin/Globulin [Mass ratio] 1.5 {ratio} Normal [facility] Comment on above: Performed By: #### H EPATIC #### [address] ALP [Catalytic activity/Vol] 99 U/L Normal 34-104 [facility] Comment on above: Result Comment: PERF ORMED BY: [place] [address] PATHOLOGIST NAPHTHALENE OPERATOR NISHANT MORLEY M.D. Performed By: #### H EPATIC #### [address] ALT [Catalytic activity/Vol] 11 U/L Normal 7-52 [facility] Comment on above: Performed By: #### H EPATIC #### [address] AST [Catalytic activity/Vol] 14 U/L Normal 13-39 [facility] Comment on above: Performed By: #### H EPATIC #### [address] Bilirubin [Mass/Vol] 0.4 mg/dL Normal 0.3-1.0 [facility] Comment on above: Performed By: #### H EPATIC #### [address] Bilirubin,Indirect 0.3 mg/dL Normal [facility] Comment on above: Performed By: #### H EPATIC #### [address] Bilirubin.indirect [Mass/Vol] 0.10 mg/dL Normal 0.03-0.18 [facility] Comment on above: Performed By: #### H EPATIC #### [address] Globulin (S) [Mass/Vol] 2.6 g/dL Normal [facility] Comment on above: Performed By: #### H EPATIC #### [facility] [address] Protein [Mass/Vol] 6.4 g/dL Normal 6.4-8.9 [facility] Comment on above: Performed By: #### H EPATIC #### [address] Hyaline casts [#/area] in Ur ine sediment by Automated countOrdered By: Dinah Sepulveda on 10-13-2024 Hyaline casts Auto (Urine sed) [#/Area] Hyaline casts [#/area] in Urine sediment by Automated count 0-8 [facility] Ketones Test strip Ql (U)Ord ered By: Dinah Sepulveda on 10-13-2024 Ketones Ql (U) Ketones [Presence] i n Urine by Test strip Negative [facility] Leukocyte esterase [Presence ] in Urine by Test stripOrdered By: Dinah Sepulveda on 10-13-2024 Leukocyte esterase Test strip Ql (U) Leukocyte esterase [Presence] in Urine by Test strip High Negative [facility] Leukocytes [#/area] in Urine sediment by Automated countOrdered By: Dinah Sepulveda on 10-13-2024 WBC Auto (Urine sed) [#/Area] Leukocytes [#/area] in Urine sediment by Automated count High 0-4 [facility] Leukocytes [#/volume] correc graham for nucleated erythrocytes in Blood by Automated counOrdered By: Dinah Sepulveda on 10-13-2024 WBC corrected for nucl RBC Auto (Bld) [#/Vol] Leukocytes [#/volume] corrected for nucleated erythrocytes in Blood by Automated coun 3.8-11.6 [facility] Lipid Panelon 10-13-2024 Cholesterol [Mass/Vol] 95 mg/dL Low 140-200 [facility] Comment on above: Result Comment: Chol less than 200 mg/dl low risk Chol 201-239 mg/dl borderline risk Chol 240 mg/dl and greater high risk Performed By: #### L IPID #### [address] #### CPEP #### [facility] , Cholesterol in HDL [Mass/Vol] 28 mg/dL Normal 23-92 [facility] Comment on above: Result Comment: HDL CHOL ATP-III CLASSIFICATION Cardiovascular Risk HDL > or equal to 60 mg/dL LOW HDL < 40 mg/dL HIGH Performed By: #### L IPID #### [place] [address] [place] #### CPEP #### [facility] , Cholesterol.total/Vivian sterol in HDL [Mass ratio] 3.4 {ratio} Normal <5.0 [facility] Comment on above: Result Comment: PERF ORMED BY: [place] [address] PATHOLOGIST NAPHTHALENE OPERATOR NISHANT MORLEY M.D. Performed By: #### L IPID #### [place] [address] [place] #### CPEP #### [facility] , LDL Cholesterol,Calculated 48 mg/dL Normal 0-100 [facility] Comment on above: Result Comment: LDL ATP III CLASSIFICATION LDL less than 100 mg/dL Optimal LDL 100-129 mg/dL Near or above optimal LDL 130-159 mg/dL Borderline high LDL 160-189 mg/dL High LDL greater than 189 mg/dL Very high Performed By: #### L IPID #### [place] [address] [place] #### CPEP #### [facility] , Triglyceride [...] method. Performed By: #### L IPID #### [place] [address] [place] #### CPEP #### [facility] , VLDL CHOLESTEROL 19 mg/dL Normal [facility] Comment on above: Performed By: #### L IPID #### [facility] [address] [place] [address] #### CPEP #### [facility] , MCH Auto (RBC) [Entitic mass ]Ordered By: Dinah Sepulveda on 10-13-2024 MCH (RBC) [Entitic mass] MCH [Entitic mass] by Automated count 24.7-34.3 [facility] MCHC Auto (RBC) [Mass/Vol]Or dered By: Dinah Sepulveda on 10-13-2024 MCHC (RBC) [Mass/Vol] MCHC [Mass/volume] by Automated count 32.0-35.0 [facility] MCV Auto (RBC) [Entitic vol] Ordered By: Dinah Sepulveda on 10-13-2024 MCV (RBC) [Entitic vol] MCV [Entitic vol ume] by Automated count 80-100 [facility] Magnesiumon 10-13-2024 Magnesium [Mass/Vol] 2.1 mg/dL Normal 1.9-2.7 [facility] Comment on above: Performed By: #### U JAMSHID, MG, PTH, CBCNO #### [facility] [address] [place] [address] Magnesium [Mass/volume] in S yoav or PlasmaOrdered By: Dinah Sepulveda on 10-13-2024 Magnesium [Mass/Vol] Magnesium [Mass/volume] in Serum or Plasma 1.9-2.7 [facility] MicroAlb Creat Ratio,Uon Albumin DL <= 20 mg/L (U) [Mass/Vol] 0.7 mg/dL Normal 0.0-1.8 [facility] Comment on above: Performed By: #### U JAMSHID, MG, PTH, CBCNO #### [address] Microalbumin/Creatinine Ratio 9.2 mg/g Normal 0.0-30.0 [facility] Comment on above: Result Comment: 30-3 00 mg/g indicates an increased risk for diabetic nephropathy. Greater than 300 mg/g is consistent with clinical nephropathy. (Am. J. Kidney Disease 1995, 25:107) PERFORMED BY: [facility] [address] [place] [address] PATHOLOGIST NAPHTHALENE OPERATOR NISHANT MORLEY M.D. Performed By: #### U JAMSHID, MG, PTH, CBCNO #### [facility] [address] [place] [address] [facility] Microalbumin [Mass/volume] i n UrineOrdered By: Mathieu Naqvi on 10-13-2024 Albumin DL <= 20 mg/L (U) [Mass/Vol] Microalbumin [Mass/volume] in Urine 0.0-1.8 [facility] Mucus [Presence] in Urine by AutomatedOrdered By: Dinah Sepulveda on 10-13-2024 Mucus Auto Ql (U) Mucus [Presence] in Urine by Automated [facility] Nitrite Test strip Ql (U)Ord ered By: Dinah Sepulveda on 10-13-2024 Nitrite Ql (U) Nitrite [Presence] i n Urine by Test strip Negative [facility] No Panel InformationOrdered By: Mathieu Naqvi on 10-13-2024 Estimated GFR (CKD-EPI) 34.741 mL/Min [facility] Creatinine Clearance (Chem N/A [facility] Parathyrin.intact [Mass/volu me] in Serum or PlasmaOrdered By: Dinah Sepulveda on 10-13-2024 Parathyrin.intact [Mass/Vol] Parathyrin.intact [Mass/volume] in Serum or Plasma High 12-88 [facility] Parathyroid Hormone Intacton 10-13-2024 Parathyroid Hormone Intact 224.1 pg/mL High [facility] Comment on above: Result Comment: PERF ORMED BY: [facility] [address] [place] [address] PATHOLOGIST NAPHTHALENE OPERATOR NISHANT MORLEY M.D. Performed By: #### U JAMSHID, MG, PTH, CBCNO #### [facility] [address] [place] [address] [facility] Phosphate [Mass/volume] in S yoav or PlasmaOrdered By: Mathieu Naqvi on 10-13-2024 Phosphate [Mass/Vol] Phosphate [Mass/volume] in Serum or Plasma 2.5-4.5 [facility] Platelet mean volume Auto (B ld) [Entitic vol]Ordered By: Dinah Sepulveda on 10-13-2024 Platelet mean volume (Bld) [Entitic vol] Platelet mean volume [Entitic volume] in Blood by Automated count 6.3-10.7 [facility] Platelets Auto (Bld) [#/Vol] Ordered By: Dinah Sepulveda on 10-13-2024 Platelets (Bld) [#/Vol] Platelets [#/vol ume] in Blood by Automated count 150-450 [facility] Potassium [Moles/volume] in Serum or PlasmaOrdered By: Mathieu Naqvi on 10-13-2024 Potassium [Moles/Vol] Potassium [Moles/volume] in Serum or Plasma 3.5-5.1 [facility] Protein Creat Ratio Ur Rando mon 10-13-2024 Creatinine, Urine (Random) 76.00 mg/dL Normal [facility] Comment on above: Result Comment: No r eference range established Performed By: #### U JAMSHID, MG, PTH, CBCNO #### [facility] [address] [place] [address] Protein (U) [Mass/Vol] 17 mg/dL High 0-9 [facility] Comment on above: Performed By: #### U JAMSHID, MG, PTH, CBCNO #### [facility] [address] Urine Protein/Creatinine Ratio 224 mg/g{Cre} High 0-200 [facility] Comment on above: Result Comment: PERF ORMED BY: [place] [address] PATHOLOGIST NAPHTHALENE OPERATOR NISHANT MORLEY M.D. Performed By: #### U JAMSHID, MG, PTH, CBCNO #### [address] Protein Test strip (U) [Mass /Vol]Ordered By: Dinah Sepulveda on 10-13-2024 Protein (U) [Mass/Vol] Protein [Mass/vol ume] in Urine by Test strip Negative [facility] Protein [Mass/volume] in Ser um or PlasmaOrdered By: Ponce Silvestre on 10-13-2024 Protein [Mass/Vol] Protein [Mass/volume ] in Serum or Plasma 6.4-8.9 [facility] Protein [Mass/volume] in Uri neOrdered By: Dinah Sepulveda on 10-13-2024 Protein (U) [Mass/Vol] Protein [Mass/vol ume] in Urine High 0-9 [facility] RBC Auto (Bld) [#/Vol]Ordere d By: Dinah Sepulveda on 10-13-2024 RBC (Bld) [#/Vol] Erythrocytes [#/volume] in Blood by Automated count 3.60-5.00 [facility] Renal Function Panelon 10-13 Albumin [Mass/Vol] 3.8 g/dL Normal 3.5-5.7 [facility] Comment on above: Performed By: #### V [id number], RENAL #### [facility] [address] [place] [address] [place] Anion gap [Moles/Vol] 11.8 mmol/L Normal 6.0-15.0 [facility] Comment on above: Performed By: #### V [id number], RENAL #### [facility] [address] [place] [id number] [place] Calcium [Mass/Vol] 8.8 mg/dL Normal 8.6-10.3 [facility] Comment on above: Performed By: #### V [id number], RENAL #### [facility] [address] [place] [id number] [place] Chloride [Moles/Vol] 106 mmol/L Normal 98-107 [facility] Comment on above: Performed By: #### V [id number], RENAL #### [facility] [address] [place] [id number] [place] CO2 [Moles/Vol] 27.1 mmol/L Normal 21.0-31.0 [facility] Comment on above: Performed By: #### V [id number], RENAL #### [facility] [address] Creatinine [Mass/Vol] 1.59 mg/dL High 0.60-1.20 [facility] Comment on above: Performed By: #### V [id number], RENAL #### [facility] [address] Estimated GFR 34.741 mL/Min Normal [facility] Comment on above: Performed By: #### V [id number], RENAL #### [facility] [address] Glucose [Mass/Vol] 108 mg/dL High 70-100 [facility] Comment on above: Result Comment: [place] Glucose Reference Range is dependent on time and content of last meal. Glucose of more than 200 mg/dL in a nonstressed, ambulatory subject supports the diagnosis of Diabetes Mellitus. ADA recommended reference range Performed By: #### V [id number], RENAL #### [address] Phosphate [Mass/Vol] 3.4 mg/dL Normal 2.5-4.5 [facility] Comment on above: Performed By: #### V [id number], RENAL #### [address] Potassium [Moles/Vol] 3.9 mmol/L Normal 3.5-5.1 [facility] Comment on above: Performed By: #### V [id number], RENAL #### [place] [address] [place] Sodium [Moles/Vol] 141 mmol/L Normal 136-145 [facility] Comment on above: Performed By: #### V [id number], RENAL #### [place] [address] [place] Urea nitrogen [Mass/Vol] 24 mg/dL Normal 7-25 [facility] Comment on above: Performed By: #### V [id number], RENAL #### [place] [address] [place] Serum or plasma albumin/glob ulin mass ratioOrdered By: Ponce Silvestre on 10-13-2024 Albumin/Globulin [Mass ratio] Serum or plasma albumin/globulin mass ratio [facility] Serum or plasma anion gap de terminationOrdered By: Mathieu Naqvi on 10-13-2024 Anion gap [Moles/Vol] Serum or plasma an ion gap determination 6.0-15.0 [facility] Serum or plasma non-glucuron idated bilirubin measurement (mass/volume)Ordered By: Ponce Silvestre on 10-13-2024 Bilirubin.indirect [Mass/Vol] Serum or plasma non-glucuronidated bilirubin measurement (mass/volume) [facility] Serum or plasma total choles terol/high density lipoprotein (HDL) cholesterol mass ratOrdered By: Mathieu Naqvi on 10-13-2024 Cholesterol.total/Vivian sterol in HDL [Mass ratio] Serum or plasma total cholesterol/high density lipoprotein (HDL) cholesterol mass rat <5.0 [facility] Sodium [Moles/volume] in Ser um or PlasmaOrdered By: Mathieu Naqvi on 10-13-2024 Sodium [Moles/Vol] Sodium [Moles/volume ] in Serum or Plasma 136-145 [facility] Specific gravity Test strip (U) [Rel density]Ordered By: Dinah Sepulveda on 10-13-2024 Specific gravity (U) [Rel density] Specific gravity of Urine by Test strip 1.001-1.030 [facility] Triglyceride [Mass/volume] i n Serum or PlasmaOrdered By: Mathieu Naqvi on 10-13-2024 Triglyceride [Mass/Vol] Triglyceride [Mass/volume] in Serum or Plasma 0-149 [facility] Comment on above: TRIG ATP III CLASSIF ICATIONTRIG less than 150 mg/dL NormalTRIG 150-199 mg/dL Borderline highTRIG 200-500 mg/dL High TRIG greater than 500 mg/dL Very highStandard traceable to the Center for Disease Conrtrol and Prevention (CDC) test method. Urate [Mass/volume] in Serum or PlasmaOrdered By: Dinah Sepulveda on 10-13-2024 Urate [Mass/Vol] Urate [Mass/volume] in Serum or Plasma High 2.3-6.6 [facility] Urea nitrogen [Mass/volume] in Serum or PlasmaOrdered By: Mathieu Naqvi on 10-13-2024 Urea nitrogen [Mass/Vol] Urea nitrogen [Mass/volume] in Serum or Plasma 7-25 [facility] Uric Acidon 10-13-2024 Urate [Mass/Vol] 7.7 mg/dL High 2.3-6.6 [facility] Comment on above: Result Comment: PERF ORMED BY: [place] [address] PATHOLOGIST NAPHTHALENE OPERATOR NISHANT MORLEY M.D. Performed By: #### U JAMSHID, MG, PTH, CBCNO #### [facility] [address] [place] [address] Urine Cultureon 10-13-2024 Bacteria identified Cx Nom (U) >100,000 colonies/ml mixed bacterial skin contaminants 2 Days PERFORMED BY: [place] [address] PATHOLOGIST NAPHTHALENE OPERATOR NISHANT MORLEY M.D. Normal [facility] Comment on above: Performed By: #### U JAMSHID, MG, PTH, CBCNO #### [facility] [address] [place] [address] Urine cultureOrdered By: Summer Sepulveda on 10-13-2024 Bacteria identified Cx Nom (U) Urine culture [facility] Urine microalbumin/creatinin e mass ratioOrdered By: Mathieu Naqvi on 10-13-2024 Albumin/Creatinine DL <= 20 mg/L (U) [Mass ratio] Urine microalbumin/creatinin e mass ratio 0.0-30.0 [facility] Comment on above: 30-300 mg/g indicate s an increased risk for diabetic nephropathy. Greater than 300 mg/g is consistent with clinical nephropathy. (Am. J. Kidney Disease 1995, 25:107) Urine protein/creatinine rat ioOrdered By: Dinah Sepulveda on 10-13-2024 Protein/Creatinine (U) [Ratio] Urine protein/creatinine ratio High 0-200 [facility] Urobilinogen Test strip (U) [Mass/Vol]Ordered By: Dinah Sepulveda on 10-13-2024 Urobilinogen (U) [Mass/Vol] Urobilinogen [Mass/volume] in Urine by Test strip Normal [facility] Vitamin D 25 Hydroxy Totalon 10-13-2024 Vitamin D 25 Hydroxy Total 15.0 ng/mL Low 30-100 [facility] Comment on above: Result Comment: [place] MIN D STATUS 25(OH)VITAMIN D RANGE (ng/mL) Deficient <20 Insufficient 20 to <30 Sufficient 30 to 100 Reference: Luann Almanza, Merline FERRER et al. Evaluation,treatment, and prevention of vitamin D deficiency; an Endocrine Society clinical practice guideline. JCEM. 2010; 96(7):1911-30. PERFORMED BY: [place] [address] PATHOLOGIST NAPHTHALENE OPERATOR NISHANT MORLEY M.D. Performed By: #### V [id number], RENAL #### [address] Vitamin D+Metabolites [Mass/ volume] in Serum or PlasmaOrdered By: Mathieu Naqvi on 10-13-2024 Vitamin D+Metabolites [Mass/Vol] Vitamin D+Metabolites [Mass/volume] in Serum or Plasma Low 30-100 [facility] Comment on above: VITAMIN D STATUS 25( [place])VITAMIN D RANGE (ng/mL) Deficient <20 Insufficient 20 to <30Sufficient 30 to 100Reference: Luann Almanza, Merline FERRER, et al. Evaluation,treatment, and prevention of vitamin D deficiency; an Endocrine Society clinical practice guideline. JCEM. 2010; 96(7):1911-30. pH Test strip (U)Ordered By: Dinah Sepulveda on 10-13-2024 pH (U) pH of Urine by Test strip 5.0-9.0 [facility] MR head/brain wo/w conon MR head/brain wo/w con [facility] [address] [place] [address] [place] [address] MRI Report Signed Patient: Virgen Gonzales MR# : [id number] : 1955 Acct:[id number] Age/Sex: 69 / F ADM Date: 09/14/24 Loc: [facility] Room: Type: [facility] Attending Dr: Olman De La Rosa [...] Jacinto Gallagher M.D.09/14/2024 5:21 PM Dictation Location: [place] [address] Transcribed By: KATHIE 09/14/24 172 Dictated By: Jacinto Gallagher II, MD 09/14/24 171 Signed By: 09/14/24 172 Normal [facility] Magnetic resonance imaging r eportOrdered By: Jacinto Gallagher on 09-14-2024 Study report [place] [address] MRI Report Signed Patient: Virgen Gonzales MR#: [id number] : 1955 Acct:[id number] Age/Sex: 69 / F ADM Date: 5 Loc: [facility] Room: Type: REG CLI Attending Dr: Olman De La Rosa DO [...] Jacinto Gallagher M.D.09/14/2024 5:21 PM Dictation Location: [facility]--19 Transcribed By: KATHIE 09/14/241720 Dictated By: Jacinto Gallagher II, MD 09/14/241713 Signed By: 09/14/241720 [facility] Work Phone: X-ray reportOrdered By: Gareth Horn on 09-14-2024 Study report [facility] [address] [place] [address] XRay Report Signed Patient: Virgen Gonzales MR#: [id number] : 1955 Acct:[id number] Age/Sex: 69 / F ADM Date: Loc: [facility] Room: Type: [facility] CLI Attending Dr: Aretha Valadez CERTIFIED PESTICIDE APPLICATOR Copies to: Aretha Valadez APRN~ Ordering Provider: [...] Jose Horn M.D.09/14/2024 8:40 PM Dictation Location: [place] [address] Transcribed By: [facility] 09/14/242039 Dictated By: Jose Horn DO 09/14/242034 Signed By: 09/14/242039 [facility] XR tibia fibula RT 2V*on XR tibia fibula RT 2V* [facility] [place] [id number] XRay Report Signed Patient: Virgen Gonzales MR# : [id number] : 1955 Acct:[id number] Age/Sex: 69 / F ADM Date: 09/14/24 Loc: [facility] Room: Type: [facility] CLI Attending Dr: Aretha Valadez CERTIFIED PESTICIDE APPLICATOR Copies to: Aretha Valadez APRN Ordering Provider: [...] 8:40 PM Dictation Location: RADIO-PC-20 Transcribed By: [facility] 09/14/242039 Dictated By: Jose Horn DO 09/14/242034 Signed By: 09/14/242039 Normal [facility] Ambulatory Visit Summaryon 0 09-07-2024 [...] Kang BOSS MD Where: [facility] [place] [address] [place] [address]- You Need to Schedule the Following Appointments Follow Up with Kang BOSS MD, URL When: In 6 months Comments: w/TOMEKA Where: [facility] [address], [place] [address]- Medications What How Much When Instructions Unchanged [...] (Difficulty lobo (more content not included)... Normal [facility] Ambulatory Visit Summary Ambulatory Visit [...] Kang BOSS MD Where: [facility] [address] [place] [address]- You Need to Schedule the Following Appointments Follow Up with Kang BOSS MD, URL When: In 6 months Comments: w/TOMEKA Where: [facility] [address] , [place] [address]- Medications What How Much When Instructions Unchanged [...] (Difficulty lobo (more content not included)... 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 [facility] XR Elbow - right 3 Viewson 0 08-31-2024 Imaging Result: Three views of the right elbow, AP/lateral/oblique, taken today and saved to the permanent medical record. Joint spaces are preserved, no swelling in the olecranon bursa, no spurring at the olecranon, no fat pad sign, no bony lesions [facility] Radiology Study observation (narrative) [facility] Office Visiton 08-20-2024 Follow-up visit [id number] Virgen Harris 1955 F Date Provider Department Center 08/20/2024 Nely[facility] Family History Problem Relation Age of Onset Heart failure Mother Heart failure Father Heart failure Paternal Grandmother Family Status - Relation Status Age at Mother Father Paternal Grandmother Level of Service:26968 DC OFFICE/OUTPATIENT NEW LOW MDM 30 MINUTES Normal [facility] C Urineon 07-09-2024 Bacteria identified Cx Nom [...] Locations R1: This test was performed at: [facility], [address] [place] [address], [address] , , [facility] Comment on above: Performed By: #### 2 [id number] #### [facility] [address] [place] [address] ED Note-Physicianon 07-09-20 ED Note-Physician ED Note-Physician Basic Information Time Seen: Luis HUNG Kelly Conchita 07/07/2024 18:19 Chief Complaint c/o neck, left lower back and head pain after syncopal episode at work around 1745. pt unsure of reason to passing out. hx of diabetes, on insulin. pt takes ASA daily History of Present Illness This patient presents emergency department after syncopal episode at work. Patient works at [employer] and states all of a sudden she [...] if appl (more content not included)... Normal [facility] Comment on above: Result Comment: Elec tronically Signed By: Kelly Smith PA-C\.br\Date and Time Signed: 07/08/24 02:10 EST\.br\Electronically Co-Signed By: Ean Azevedo M.D.\.br\Date and Time Co-Signed: 07/09/24 07:05 EST ABO/Rh History Checkon 07-08 ABO/Rh History Check Patient discharged prior Normal [facility] Comment on above: Performed By: #### 1 [id number] #### [facility] [address] [place] [address] CT Abdomen/Pelvis w/ Contras ton 07-08-2024 CT [...] 300 Contrast amount in ml's: 130 Normal [facility] CT Chest w/ Contraston 07-08 [...] 300 Contrast amount in ml's: 130 [address] [facility] CT Head or Brain w/o Contras [...] MD Transcribed by: JOSH Technologist: YONIS Normal [facility] CT Spine Cervical w/o Contra ston [...] (Electronic Signature): 07/08/2024 9:24 am Signed by: oHme Lockwood MD Transcribed by: JOSH Technologist: YONIS Normal [facility] ABO/Rhon 07-07-2024 ABO/Rh Positive Invalid Interpretation Code [facility] Comment on above: Performed By: #### 2 [id number] #### [facility] [address] [place] [address] ABSCon 07-07-2024 ABSC Gel Interp Negative Normal [facility] Comment on above: Performed By: #### 1 [id number] #### [facility] [address] [place] [address] B hCG Qualon 07-07-2024 Beta HCG ( test) Ql Negative Normal [facility] Comment on above: Performed By: #### 2 [id number] #### [facility] [address] [place] [address] BLOOD BANKOrdered By: Willard Greenwood on 07-07-2024 ABO/Rh Interp Positive Invalid Interpretation Code [facility] BB Subsection ABSC Gel Interp Negative (07/07/24 6:48 PM) Normal [facility] BB Subsection BMPon 07-07-2024 Anion gap [Moles/Vol] 11 mmol/L Normal 6-16 [facility] Comment on above: Performed By: #### 2 [id number] #### [facility] [address] [place] [address] Calcium [Mass/Vol] 9.1 mg/dL Normal 8.9-11.1 [facility] Comment on above: Performed By: #### 2 [id number] #### [facility] [address] [place] [address] Chloride [Moles/Vol] 104 mmol/L Normal 101-111 [facility] Comment on above: Performed By: #### 2 [id number] #### [facility] [address] [place] [address] CO2 [Moles/Vol] 26 mmol/L Normal 21-31 [facility] Comment on above: Performed By: #### 2 954819 #### [facility] [address] [place] [address] Creatinine [Mass/Vol] 1.8 mg/dL High 0.5-1.3 [facility] Comment on above: Performed By: #### 2 183390 #### [facility] [address] [place] [address] Glucose [Mass/Vol] 154 mg/dL Normal 55-199 [facility] Comment on above: Performed By: #### 2 [id number] #### [facility] [address] [place] [address] Potassium [Moles/Vol] 3.6 mmol/L Normal 3.5-5.3 [facility] Comment on above: Performed By: #### 2 793002 #### [facility] [address] [place] [address] Sodium [Moles/Vol] 137 mmol/L Normal 135-145 [facility] Comment on above: Performed By: #### 2 484127 #### [facility] [address] [place] [address] Urea nitrogen [Mass/Vol] 23 mg/dL High 5-21 [facility] Comment on above: Performed By: #### 2 095678 #### [facility] [address] [place] [address] Urea nitrogen/Creatinine [Mass ratio] 13 No Units Normal 10-20 [facility] Comment on above: Performed By: #### 2 [id number] #### [facility] [address] [place] [address] Blood Bank ID#on 07-07-2024 BBID# [id number] Invalid Interpretation Code [facility] Comment on above: Performed By: #### 1 [id number] #### [facility] [address] [place] [address] CBC w/ Auto Diffon 4 Basophils/100 WBC (Bld) 0.6 % Normal 0.0-2.0 [facility] Comment on above: Result Comment: Amy ection date/time has been modified to: 18:23:00. Previous collection date/time: 18:45:00. Performed By: #### 2 507896 #### [facility] [address] [place] [address] Basophils/Leukocytes Auto (Bld) [Pure # fraction] 0.1 E9/L Normal 0.0-0.2 [facility] Comment on above: Result Comment: Amy ection date/time has been modified to: 18:23:00. Previous collection date/time: 18:45:00. Performed By: #### 2 103274 #### [facility] [address] [place] [address] Eosinophils (Bld) [#/Vol] 0.3 E9/L Normal 0.0-0.5 [facility] Comment on above: Result Comment: Amy ection date/time has been modified to: 18:23:00. Previous collection date/time: 18:45:00. Performed By: #### 2 [id number] #### [facility] [address] [place] [address] Eosinophils/100 WBC (Bld) 3.1 % Normal 0.0-8.0 [facility] Comment on above: Result Comment: Amy ection date/time has been modified to: 18:23:00. Previous collection date/time: 18:45:00. Performed By: #### 2 855642 #### [facility] [address] [place] [address] Erythrocyte distribution width (RBC) [Ratio] 15.1 % High 10.9-14.2 [facility] Comment on above: Result Comment: Amy ection date/time has been modified to: 18:23:00. Previous collection date/time: 18:45:00. Performed By: #### 2 [id number] #### [facility] [address] [place] [address] Hematocrit (Bld) [Volume fraction] 38.3 % Normal 34.0-46.0 [facility] Comment on above: Result Comment: Amy ection date/time has been modified to: 18:23:00. Previous collection date/time: 18:45:00. Performed By: #### 2 [id number] #### [facility] [address] [place] [address] Hemoglobin (Bld) [Mass/Vol] 12.7 g/dL Normal 12.0-16.0 [facility] Comment on above: Result Comment: Amy ection date/time has been modified to: 18:23:00. Previous collection date/time: 18:45:00. Performed By: #### 2 289796 #### [facility] [address] [place] [address] Lymphocytes (Bld) [#/Vol] 2.4 E9/L Normal 1.0-4.0 [facility] Comment on above: Result Comment: Amy ection date/time has been modified to: 18:23:00. Previous collection date/time: 18:45:00. Performed By: #### 2 493259 #### [facility] [address] [place] [address] Lymphocytes/100 WBC (Bld) 26.6 % Normal 14.0-50.0 [facility] Comment on above: Result Comment: Amy ection date/time has been modified to: 18:23:00. Previous collection date/time: 18:45:00. Performed By: #### 2 725629 #### [facility] [address] [place] [address] MCH (RBC) [Entitic mass] 29.9 pg Normal 27.0-34.0 [facility] Comment on above: Result Comment: Amy ection date/time has been modified to: 18:23:00. Previous collection date/time: 18:45:00. Performed By: #### 2 603004 #### [facility] [address] [place] [address] MCHC (RBC) [Mass/Vol] 33.1 g/dL Normal 31.4-36.0 [facility] Comment on above: Result Comment: Amy ection date/time has been modified to: 18:23:00. Previous collection date/time: 18:45:00. Performed By: #### 2 [id number] #### [facility] [address] [place] [address] MCV (RBC) [Entitic vol] 90.2 fL Normal 80.0-100.0 [facility] Comment on above: Result Comment: Amy ection date/time has been modified to: 18:23:00. Previous collection date/time: 18:45:00. Performed By: #### 2 [id number] #### [facility] [address] [place] [address] Monocytes (Bld) [#/Vol] 0.5 E9/L Normal 0.2-1.0 [facility] Comment on above: Result Comment: Amy ection date/time has been modified to: 18:23:00. Previous collection date/time: 18:45:00. Performed By: #### 2 985775 #### [facility] [address] [place] [address] Neutrophils (Bld) [#/Vol] 5.8 E9/L Normal 2.0-7.5 [facility] Comment on above: Result Comment: Amy ection date/time has been modified to: 18:23:00. Previous collection date/time: 18:45:00. Performed By: #### 2 247855 #### [facility] [address] [place] [address] Neutrophils/100 WBC (Bld) 64.2 % Normal 36.0-75.0 [facility] Comment on above: Result Comment: Amy ection date/time has been modified to: 18:23:00. Previous collection date/time: 18:45:00. Performed By: #### 2 [id number] #### [facility] [address] [place] [address] Platelet mean volume (Bld) [Entitic vol] 10.1 fL Normal 6.4-10.8 [facility] Comment on above: Result Comment: Amy ection date/time has been modified to: 18:23:00. Previous collection date/time: 18:45:00. Performed By: #### 2 898604 #### [facility] [address] [place] [address] Platelets (Bld) [#/Vol] 183.0 E9/L Normal 150.0-500.0 [facility] Comment on above: Result Comment: Amy ection date/time has been modified to: 18:23:00. Previous collection date/time: 18:45:00. Performed By: #### 2 [id number] #### [facility] [address] [place] [address] RBC (Bld) [#/Vol] 4.2 E12/L Low 4.3-5.9 [facility] Comment on above: Result Comment: Amy ection date/time has been modified to: 18:23:00. Previous collection date/time: 18:45:00. Performed By: #### 2 [id number] #### [facility] [address] [place] [address] WBC corrected for nucl RBC Auto (Bld) [#/Vol] 9.1 E9/L Normal 4.0-11.0 [facility] Comment on above: Result Comment: Amy ection date/time has been modified to: 18:23:00. Previous collection date/time: 18:45:00. Performed By: #### 2 856182 #### [facility] [address] [place] [address] Basophils/100 WBC (Bld) 0.6 % Normal 0.0-2.0 [facility] Comment on above: Performed By: #### 2 [id number] #### [facility] [address] [place] [address] Basophils/Leukocytes Auto (Bld) [Pure # fraction] 0.1 E9/L Normal 0.0-0.2 [facility] Comment on above: Performed By: #### 2 [id number] #### [facility] [address] [place] [address] Eosinophils (Bld) [#/Vol] 0.3 E9/L Normal 0.0-0.5 [facility] Comment on above: Performed By: #### 2 [id number] #### [facility] [address] [place] [address] Eosinophils/100 WBC (Bld) 3.1 % Normal 0.0-8.0 [facility] Comment on above: Performed By: #### 2 139602 #### [facility] [address] [place] [address] Erythrocyte distribution width (RBC) [Ratio] 15.1 % High 10.9-14.2 [facility] Comment on above: Performed By: #### 2 586673 #### [facility] [address] [place] [address] Hematocrit (Bld) [Volume fraction] 38.3 % Normal 34.0-46.0 [facility] Comment on above: Performed By: #### 2 [id number] #### [facility] [address] [place] [address] Hemoglobin (Bld) [Mass/Vol] 12.7 g/dL Normal 12.0-16.0 [facility] Comment on above: Performed By: #### 2 396926 #### [facility] [address] [place] [address] Lymphocytes (Bld) [#/Vol] 2.4 E9/L Normal 1.0-4.0 [facility] Comment on above: Performed By: #### 2 856342 #### [facility] [address] [place] [address] Lymphocytes/100 WBC (Bld) 26.6 % Normal 14.0-50.0 [facility] Comment on above: Performed By: #### 2 296803 #### [facility] [address] [place] [address] MCH (RBC) [Entitic mass] 29.9 pg Normal 27.0-34.0 [facility] Comment on above: Performed By: #### 2 900549 #### [facility] [address] [place] [address] MCHC (RBC) [Mass/Vol] 33.1 g/dL Normal 31.4-36.0 [facility] Comment on above: Performed By: #### 2 815816 #### [facility] [address] [place] [address] MCV (RBC) [Entitic vol] 90.2 fL Normal 80.0-100.0 [facility] Comment on above: Performed By: #### 2 574795 #### [facility] [address] [place] [address] Monocytes (Bld) [#/Vol] 0.5 E9/L Normal 0.2-1.0 [facility] Comment on above: Performed By: #### 2 [id number] #### [facility] [address] [place] [address] Neutrophils (Bld) [#/Vol] 5.8 E9/L Normal 2.0-7.5 [facility] Comment on above: Performed By: #### 2 671865 #### [facility] [address] [place] [address] Neutrophils/100 WBC (Bld) 64.2 % Normal 36.0-75.0 [facility] Comment on above: Performed By: #### 2 619263 #### [facility] [address] [place] [address] Platelet mean volume (Bld) [Entitic vol] 10.1 fL Normal 6.4-10.8 [facility] Comment on above: Performed By: #### 2 073555 #### [facility] [address] [place] [address] Platelets (Bld) [#/Vol] 183.0 E9/L Normal 150.0-500.0 [facility] Comment on above: Performed By: #### 2 [id number] #### [facility] [address] [place] [address] RBC (Bld) [#/Vol] 4.2 E12/L Low 4.3-5.9 [facility] Comment on above: Performed By: #### 2 321678 #### [facility] [address] [place] [address] WBC corrected for nucl RBC Auto (Bld) [#/Vol] 9.1 E9/L Normal 4.0-11.0 [facility] Comment on above: Performed By: #### 2 425397 #### [facility] [address] [place] [address] CHEMISTRYOrdered By: SYSTEM SYSTEM on 07-07-2024 Amphetamines [...] Sensitivity Troponin I Instructions For Use, [place], February 2018) Urea nitrogen [Mass/Vol] 23 mg/dL High 5 - 21 mg/dL [facility] Urea nitrogen/Creatinine [Mass ratio] 13 mg/mg Normal 10 - 20 [facility] CKon 07-07-2024 Total CK 149 Int._Unit/L Normal 14-261 [facility] Comment on above: Performed By: #### 2 [id number] #### [facility] [address] [place] [address] COAGULATIONOrdered By: Leslie ramirez Scott on 07-07-2024 aPTT Coag (PPP) [Time] 31.1 s Normal 25.1 - 36.5 second(s) [facility] Auto Coag Comment on above: Interpretive Data: Keke lefty 15 days - 4 weeks 1 [...] the same coagulation reagent and instrumentation as [facility]. Currently there are no coagulation studies available worldwide for children to 14 days, and no normal ranges. Heparin therapeutic range (represented by Anti-Factor Xa activity of 0.2 - 0.4 U/mL) corresponds to PTT of 56.6 - 109.0 sec. INR Coag (PPP) [Relative time] 0.92 {INR} Invalid Interpretation Code [facility] Auto Coag Comment on above: Interpretive Data: I NR results are specifically intended to assess patients stabilized on long-term Anticoagulation therapy suggested INR s Less Intensive Anticoagulation 2.0 3.0 Conventional Range 3.0 4.5 PT Coag (PPP) [Time] 10.3 s Normal 9.4 - 1 2.5 second(s) [facility] Auto [facility]ag Comment on above: Interpretive Data: 1 5 days - 4 weeks 1 - 5 months 6 -11 months 1-5 years 6-10 years 11 -17 years Mean: 11.2 (9.5-12.6) Mean: 11.0 (9.7-12.8) Mean: 11.0 (9.8-13.0) Mean: 11.3 (9.9-13.4) Mean: 11.7 (10.0-14.6) Mean: 11.8 (10.0 - 14.1) Pediatric Reference ranges were obtained from a study by Jerry [place], et al. prepared from 1437 samples obtained at 7 different centers using the same coagulation reagent and instrumentation as [facility]. Currently there are no coagulation studies available worldwide for children to 14 days, and no normal ranges. ED Clinical Summaryon 2023 ED Clinical Summary ED Clinical Summary [place] [id number] ED Clinical Summary Person Information Name: VIRGEN GONZALES [facility] Age: 68 Years : 1955 Sex: Female Language: Latvian PCP: AGGIE DAVIS CNP Marital Status: Visit [...] 22:29:17 07/07/2024 22:29:17 ADDRESS: [id number] [place] [id number] PHYS DOC NOTES: MEDICAL INFORMATION: Prescriptions Given: New Medications [facility], [address] [place], [place] [id number], [phone] cephalexin (cephalexin 500 mg Cap) 1 Capsules [...] EDUCATION INFORMATION: Instructions: Urinary Tract Infection, Adult, Xaps-hl-Ddmq; Syncope, Adult, Vnxd-sj-Dsjf; Head Injury, Adult, Mytu-vg-Sfcj; Contusion, Ydzz-gj-Zcfi Follow up: With: Address: When: AGGIE DVAIS [address] [place] [id number] [phone] [employer] (more content not included)... Normal [facility] ED Patient Summaryon 024 ED Patient Summary ED Patient Summary [place] [address] Patient Discharge Instructions Person Information Name: VIRGEN GONZALES Age: 68 Years Arrival Date: 07/07/2024 18:16:48 Discharge Diagnosis: 1:Contusion of occipital region of scalp; 2:Syncope and collapse; 3:Acute lower urinary tract infection Primary Care Physician: AGGIE DAVIS CNP Provider Information Primary Provider: Tiny Fallon DO Advanced Director Software Quality Assurance:None The exam and treatment you received in the Emergency Department were for an urgent problem and are not intended as complete care. It is important that you follow up with a doctor, nurse practitioner, or physician???s nursing home assistant administrator for ongoing care. If your symptoms become worse or you do not improve as expected and you are unable to reach your usual health care provider, you should return to the Emergency Department. We are available 24 hours a day. PARISAJULIETAVIRGEN RAMIREZ has been given the following list of patient education materials, prescriptions and follow-up instructions: Follow-up Instructions: With: Address: When: AGGIE DAVIS [address] [place] [phone] Business (1) In 3 days 07/10/2024 In the event that this physician does not participate in your insurance network, please consult with your insurance company to find a nearby participating provider. Patient Education Materials: Urinary Tract Infection, Adult, Wgph-be-Ohdm; Syncope, Adult, Nifl-xp-Nzyl; Head Injury, Adult, Cjgd-vt-Aghk; Contusion, Yhrf-lc-Zyrh A MESSAGE TO ALL PATIENTS REGARDING OPIOIDS PRESCRIPTION OPIOIDS: WHAT YOU NEED TO KNOW Prescription opioids can be used to help relieve hlxnkhkj-ii-ruqrmk pain and are often prescribed following a [...] (www.fda.gov/Drugs/Res ourcesFo (more content not included)... Normal [facility] Ethanolon 07-07-2024 Ethanol Lvl <10 Normal <=11 [facility] Comment on above: Performed By: #### 2 [id number] #### [facility] [address] [place] [address] HEMATOLOGYOrdered By: SYSTEM SYSTEM on 07-07-2024 Basophils/100 [...] 07-07-2024 Albumin [Mass/Vol] 3.9 g/dL Normal 3.3-5.0 [facility] Comment on above: Performed By: #### 2 [id number] #### [facility] [address] [place] [address] Albumin/Globulin (S) [Mass conc ratio] 1.4 Normal 1.1-2.2 [facility] Comment on above: Performed By: #### 2 [id number] #### [facility] [address] [place] [address] ALP [Catalytic activity/Vol] 112 Int._Unit/L High 21-98 [facility] Comment on above: Performed By: #### 2 [id number] #### [facility] [address] [place] [address] ALT No additional P-5'-P [Catalytic activity/Vol] 11 Int._Unit/L Normal 6-46 [facility] Comment on above: Performed By: #### 2 [id number] #### [facility] [address] [place] [address] AST [Catalytic activity/Vol] 13 Int._Unit/L Normal 5-43 [facility] Comment on above: Performed By: #### 2 [id number] #### [facility] [address] [place] [address] Bilirubin [Mass/Vol] 0.4 mg/dL Normal 0.0-1.1 [facility] Comment on above: Performed By: #### 2 [id number] #### [facility] [address] [place] [address] Bilirubin.direct [Mass/Vol] 0.1 mg/dL Normal 0.0-0.4 [facility] Comment on above: Performed By: #### 2 [id number] #### [facility] [address] [place] [address] Bilirubin.indirect [Mass or moles/Vol] 0.3 mg/dL Normal 0.1-0.9 [facility] Comment on above: Performed By: #### 2 [id number] #### [facility] [address] [place] [address] Globulin (S) [Mass/Vol] 2.8 g/dL Normal 1.4-4.0 [facility] Comment on above: Performed By: #### 2 [id number] #### [facility] [address] [place] [address] Protein [Mass/Vol] 6.7 g/dL Normal 6.0-7.8 [facility] Comment on above: Performed By: #### 2 [id number] #### [facility] [address] [place] [address] Lactic Acidon 07-07-2024 Lactic Acid Lvl 0.9 mmol/L Normal 0.5-2.2 [facility] Comment on above: Performed By: #### 2 [id number] #### [facility] [address] [place] [address] Lipase Levelon 07-07-2024 Lipase [Catalytic activity/Vol] 22 U/L Normal 13-58 [facility] Comment on above: Performed By: #### 2 [id number] #### [facility] [address] [place] [address] Magnesiumon 07-07-2024 Magnesium [Mass/Vol] 2.2 mg/dL Normal 1.3-2.4 [facility] Comment on above: Performed By: #### 2 [id number] #### [facility] [address] [place] [address] Myoglobinon 07-07-2024 Myoglobin [Mass/Vol] 128 ng/mL High <=69 [facility] Comment on above: Performed By: #### 2 [id number] #### [facility] [address] [place] [address] PT & PTTon 07-07-2024 aPTT Coag (PPP) [Time] 31.1 second(s) Normal 25.1-36.5 [facility] Comment on above: Result Comment: Para meter 15 days - 4 weeks 1 - 5 months 6 - 11 months 1 - 5 years 6 - 10 years 11 - 17 years PTT Mean: 35.4 (27.6-45.6) Mean: 33.5 (24.8-40.7) Mean: 32.4 (25.1-40.7) Mean: 31.6 (24.0-39.2) Mean: 31.6 (26.9-38.7) Mean: 31.0 (24.6-38.4) Pediatric Reference ranges were obtained from a study by siddhartha Hernandez. prepared from 1437 samples obtained at 7 different centers using the same coagulation reagent and instrumentation as [facility]. Currently there are no coagulation studies available worldwide for children to 14 days, and no normal ranges. Heparin therapeutic range (represented by Anti-Factor Xa activity of 0.2 - 0.4 U/mL) corresponds to PTT of 56.6 - 109.0 sec. Performed By: #### 1 [id number] #### [facility] [address] [place] [address] INR Coag (PPP) [Relative time] 0.92 {INR} Invalid Interpretation Code [facility] Comment on above: Result Comment: INR results are specifically intended to assess patients stabilized on long-term Anticoagulation therapy suggested INR???s ???Less Intensive Anticoagulation??? 2.0 ??? 3.0 Conventional Range 3.0 ??? 4.5 Performed By: #### 1 [id number] #### [facility] [address] [place] [address] PT Coag (PPP) [Time] 10.3 second(s) Normal 9.4-12.5 [facility] Comment on above: Result Comment: 15 d ays - 4 weeks 1 - 5 months 6 -11 months 1-5 years 6-10 years 11 -17 years Mean: 11.2 (9.5-12.6) Mean: 11.0 (9.7-12.8) Mean: 11.0 (9.8-13.0) Mean: 11.3 (9.9-13.4) Mean: 11.7 (10.0-14.6) Mean: 11.8 (10.0 - 14.1) Pediatric Reference ranges were obtained from a study by siddhartha Hernandez. prepared from 1437 samples obtained at 7 different centers using the same coagulation reagent and instrumentation as [facility]. Currently there are no coagulation studies available worldwide for children to 14 days, and no normal ranges. Performed By: #### 1 [id number] #### [facility] [address] [place] [address] SEROLOGYOrdered By: Gerri Chavez on 07-07-2024 Beta HCG ( test) Ql Negative (07/07/24 6:23 PM) Normal [facility] Man Sero Troponinon 07-07-2024 Troponin HS 10.70 pg/mL Normal 10.10-27.10 [facility] Comment on above: Result Comment: The 95% CI (Confidence Interval) PPV (Positive Predictive Value) for myocardial infarction in females is 38 pg/mL, in males 51 pg/mL. The results should be used in conjunction with clinical conditions of myocardial infarction. (Access High Sensitivity Troponin I Instructions For Use, [place], February 2018) Performed By: #### 2 [id number] #### [facility] [address] [place] [address] U Drug Screenon 07-07-2024 Amphetamines Screen method >1000 ng/mL Ql (U) Negative Normal NEGATIVE [facility] Comment on above: Result Comment: Nega tive Cutoff: <1000 ng/mL Performed By: #### 2 [id number] #### [facility] [address] [place] [address] Barbiturates Screen Ql (U) Negative Normal NEGATIVE [facility] Comment on above: Result Comment: Nega tive Cutoff: <200 ng/mL Performed By: #### 2 [id number] #### [facility] [address] [place] [address] Benzodiazepines Ql (U) Negative Normal NEGATIVE [facility] Comment on above: Result Comment: Nega tive Cutoff: <200 ng/mL Performed By: #### 2 [id number] #### [facility] [address] [place] [address] Cannabinoids Screen Ql (U) Negative Normal NEGATIVE [facility] Comment on above: Result Comment: Nega tive Cutoff: <50 ng/mL Performed By: #### 2 [id number] #### [facility] [address] [place] [address] Cocaine Ql (U) Negative Normal NEGATIVE [facility] Comment on above: Result Comment: Nega tive Cutoff: <300 ng/mL Performed By: #### 2 [id number] #### [facility] [address] [place] [address] Opiates Screen Ql (U) Negative Normal NEGATIVE [facility] Comment on above: Result Comment: Nega tive Cutoff: <300 ng/mL Performed By: #### 2 [id number] #### [facility] [address] [place] [address] Phencyclidine Screen method >25 ng/mL Ql (U) Negative Normal NEGATIVE [facility] Comment on above: Result Comment: Nega tive Cutoff: <25 ng/mL These drug screen results are to be used for medical (i.e., treatment) purposes only. Unconfirmed drug screening results must not be used for non-medical purposes (e.g., employment testing, legal testing). Performed By: #### 2 [id number] #### [facility] [address] [place] [address] U Fentanyl Negative Normal NEGATIVE [facility] Comment on above: Result Comment: Nega tive Cutoff: <5 ng/mL These drug screen results are to be used for medical (i.e., treatment) purposes only. Unconfirmed drug screening results must not be used for non-medical purposes (e.g., employment testing, legal testing). Performed By: #### 2 [id number] #### [facility] [address] [place] [address] UA with Cult Rflxon 07-07-20 24 Bacteria Auto Ql (U) 1+ /HPF Abnormal Trace [facility] Comment on above: Performed By: #### 4 [id number] #### [facility] [address] [place] [address] Bilirubin Ql (U) Negative Normal Negative [facility] Comment on above: Performed By: #### 4 [id number] #### [facility] [address] [place] [address] Clarity (U) Ex.Turbid Abnormal Clear [facility] Comment on above: Performed By: #### 4 [id number] #### [facility] [address] [place] [address] Color (U) Light-Ceiba Abnormal Yellow [facility] Comment on above: Result Comment: Micr oscopic readings are only performed on those samples that meet specific criteria set forth by [facility]. Performed By: #### 4 [id number] #### [facility] [address] [place] [address] Epithelial cells.squamous Auto (Urine sed) [#/Area] >10 Invalid Interpretation Code [facility] Comment on above: Performed By: #### 4 [id number] #### [facility] [address] [place] [address] Glucose Ql (U) 4+ mg/dL Abnormal Negative [facility] Comment on above: Performed By: #### 4 [id number] #### [facility] [address] [place] [address] Hemoglobin Auto test strip (U) [Mass/Vol] 1+ mg/dL Abnormal Negative [facility] Comment on above: Performed By: #### 4 [id number] #### [facility] [address] [place] [address] Ketones Auto test strip Ql (U) Negative Normal Negative [facility] Comment on above: Performed By: #### 4 [id number] #### [facility] [address] [place] [address] Leukocyte esterase Auto test strip Ql (U) 500 Isidoro/uL Abnormal Negative [facility] Comment on above: Performed By: #### 4 [id number] #### [facility] [address] [place] [address] Mucus Auto Ql (U) Negative Normal Negative [facility] Comment on above: Performed By: #### 4 [id number] #### [facility] [address] [place] [address] Nitrite Auto test strip Ql (U) Negative Normal Negative [facility] Comment on above: Performed By: #### 4 [id number] #### [facility] [address] [place] [address] pH (U) 6.5 [pH] Invalid Interpretation Code 5.0-9.0 [facility] Comment on above: Performed By: #### 4 [id number] #### [facility] [address] [place] [address] Protein Ql (U) Trace Abnormal Negative [facility] Comment on above: Performed By: #### 4 [id number] #### [facility] [address] [place] [address] RBC Ql (U) 31-75 Abnormal 0-3 [facility] Comment on above: Performed By: #### 4 [id number] #### [facility] [address] [place] [address] Specific gravity (U) [Rel density] 1.019 Invalid Interpretation Code 1.005-1.030 [facility] Comment on above: Performed By: #### 4 [id number] #### [facility] [address] [place] [address] Urobilinogen (U) [Mass/Vol] Negative Normal Negative [facility] Comment on above: Performed By: #### 4 [id number] #### [facility] [address] [place], [place] [address] WBC Auto (Urine sed) [#/Area] 31-75 Abnormal 0-5 [facility] Comment on above: Performed By: #### 4 [id number] #### [facility] [address] [place], [place] [address] Yeast.budding Computer assisted Ql (U) Trace Abnormal [facility] Comment on above: Performed By: #### 4 [id number] #### [facility] [address] [place] [address] Type of Urine collection method Clean Catch Normal [facility] Comment on above: Performed By: #### 4 [id number] #### [facility] [address] [place], [place] [address] URINALYSISOrdered By: SYSTEM SYSTEM on 07-07-2024 Bacteria Auto Ql (U) 1+ /HPF Invalid Interpretation Code Trace/HPF FT UA Auto SS Bilirubin Ql (U) Negative Normal Negativemg/ dL FT UA Auto SS Clarity (U) Ex.Turbid *ABN* (07/07/24 7:41 PM) Invalid Interpretation Code Clear [facility] UA Auto SS Color (U) Light-Ceiba 3 *ABN* (07/07/24 7:41 PM) Invalid Interpretation Code Yellow [facility] UA Auto SS Comment on above: Interpretive Data: M icroscopic readings are only performed on those samples that meet specific criteria set forth by [facility]. Epithelial cells.squamous Auto (Urine [...] 7:41 PM) Normal [facility] UA Auto SS Work Phone: eGFRon 07-07-2024 eGFR 30 mL/min/1.73 m2 Low >=59 [facility] Comment on above: Performed By: #### 1 [id number] #### [facility] [address] [address] Kobe 04-13-2024 L Specimen: [id number] Received: 04/15/24 Status: ANIRUDH Req Num: [id number] Spec Type: Cytology Subm Dr: Da Phillip DO Tissues: A FNA SLIDES NOPATH (RT THYR) B FNA SLIDES NOPATH (THY ISTHM) Procedures: Cyto Int and Re/2, PAPSTN/22 Age/ Patient Sex Location Account Attending Physician Virgen Gonzales 68/F [place] [id number] Da Phillip DO SPEC NUM: [id number] RECD: 04/15/24 STATUS: ANIRUDH REQ NUM: [id number] AMY: 04/13/[address] [facility] [address]: Da Phillip DO ENTERED: 04/15/24 [facility] DR: SPEC TYPE: Cytology DEPT: CNG ENTERED BY: [id number] RECV BY: [id number] ORDERED: Cyto Int and Re/2, PAPSTN/22 ORDERED: [...] 1 Entered: 05/11/24-1009 Supplemental [facility]: -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 -Benign (risk of malignancy 4%) ---- Specimen: [id number] Received: 04/15/24 Status: ANIRUDH Andrade Num: [id number] Spec Type: Cytology Subm Dr: Da Phillip, Tissues: A FNA SLIDES NOPATH (RT THYR) B FNA SLIDES NOPATH (THY ISTHM) Procedures: Cyto Int and Re/2, PAPSTN ---- Patient: Virgen Gonzales [id number] (Continued) ---- Specimen: [id number] Received: 04/15/24 (Continued) Supplemental Report (Continued) Signed (signature on file) Noemy De Los Santos MD 04/21/24 1010 ---- Specimen: [id number] Received: 04/15/24 Status: ANIRUDH Andrade Num: [id number] Spec Type: Cytology Subm Dr: Da Phillip DO Tissues: A FNA SLIDES NOPATH (RT THYR) B FNA SLIDES NOPATH (THY ISTHM) Procedures: Cyto Int and Re/2, PAPSTN ---- Patient: Virgen Gonzales [id number] (Continued) ---- Specimen: [id number] Received: 04/15/24 (Continued) Supplemental Report (Continued) -Xpression [place] -N/A -Other Classifiers -BRAF: Negative -RET/PTC1: Not [...] atypia of undetermined significance, the category 3 [place] system -Pending additional molecular triage study to follow B, instruments thyroid nodule, FNA cytology: -A few follicular cells are present in combined smears, including occasional small and/or loose follicular groups, adequately for assessment, often showing small round to ovoid nuclei, consistent with the category 2 [place] system: Benign ---- Specimen: [id number] Received: 04/15/24 Status: ANIRUDH Andrade Num: [id number] Spec Type: Cytology Subm Dr: Da Phillip, Tissues: A FNA SLIDES NOPATH (RT THYR) B FNA SLIDES NOPATH (THY ISTHM) Procedures: Cyto Int and Re/2, PAPSTN/22 ---- Patient: Virgen Gonzales [id number] (Continued) ---- Specimen: [id number] Received: 04/15/24 (Continued) Signed (signature on file) Noemy De Los Santos MD 04/21/24 1010 ---- Specimen: [id number] Received: 04/15/24 Status: ANIRUDH Andrade Num: [id number] Spec Type: Cytology Subm Dr: Da Phillip,DO Tissues: A FNA SLIDES NOPATH (RT THYR) B FNA SLIDES N (more content not included)... Normal [facility] Thyrotropin [Units/volume] i n Serum or PlasmaOrdered By: Da Phillip on 03-26-2024 TSH Qn 1.31 m[IU]/L Normal 0.45-5.33 [facility] Comment on above: Result Comment: PERF ORMED BY: [address] [place] [address] PATHOLOGIST NAPHTHALENE OPERATOR JENNIFER HERNANDEZ M.D. Performed By: #### U JAMSHID, MG, PTH, CBCNO #### [facility] [address] [place] [address] Thyroxine (T4) [Mass/volume] in Serum or PlasmaOrdered By: Da Phillip on 03-26-2024 T4 [Mass/Vol] 9.37 ug/dL Normal 5.39-11.82 [facility] Comment on above: Performed By: #### U JAMSHID, MG, PTH, CBCNO #### [facility] [address] [place] [address] Triiodothyronine (T3) Totalo n 03-26-2024 Triiodothyronine (T3) Total 0.90 ng/mL Normal 0.87-1.78 [facility] Comment on above: Performed By: #### U JAMSHID, MG, PTH, CBCNO #### [address] Triiodothyronine (T3) [Mass/ volume] in Serum or PlasmaOrdered By: Da Phillip on 03-26-2024 T3 [Mass/Vol] 0.90 ng/mL 0.87-1.78 [facility] Kobe 02-14-2024 L Specimen: Received: 02/17/24 Status: ROSALINALyudmila Andrade Num: [id number] Spec Type: Cytology Subm Dr: Aggie Davis, PRESLEY Tissues: A FNA SLIDES NOPATH (RT THYROID NOD) B FNA SLIDES NOPATH (ISTHMUS THY) Procedures: Cyto Int and Re/2, PAPSTN/10 Age/ Patient Sex Location Account Attending Physician Virgen Gonzales 68/F LABELL [id number] Aggie Davis, PRESLEY SPEC NUM: [id number] RECD: 02/17/24 STATUS: ROSALINALyudmila ANDRADE NUM: [id number] AMY: 02/14/24- DR: Aggie Davis, PRESLEY ENTERED: 02/17/[address]: Dina,Lab Becky Avilez MD SPEC TYPE: Cytology DEPT: POP [place] ENTERED BY: [id number] RECV BY: [id number] ORDERED: Cyto Int and Re/2, PAPSTN/10 ORDERED: Cyto Int and Re/2, PAPSTN/10 Pathological Diagnosis A. Right thyroid,?fine needle aspiration:? Suspicious for follicular neoplasm, Atypical Follicular Cells With Abundant Colloid. [place] Category IV B. Isthmus, fine needle aspiration:? Unsatisfactory for evaluation. Too few epithelial cells. [place]?Category?I Clinical Information Thyroid Nodules Gross Description A. (RIGHT) Received fixed in Cytolyt is <1 ml very pale pink clear fluid for cytology said to have been obtained as right thyroid nodule-mid . ThinPrep preparations are prepared for microscopic examination. Also received are 4 spray fixed smeared slides to be stained pap aa Veracyte vial stored at -20 for microscopic examination.(AL/ri) B. (ISTHMUS) Received fixed in Cytolyt is (1 ml pink clear fluid for cytology said to have ---- Specimen: [id number] Received: 02/17/24 Status: ANIRUDH Andrade Num: [id number] Spec Type: Cytology Subm Dr: Aggie Davis CNP Tissues: A FNA SLIDES NOPATH (RT THYROID NOD) B FNA SLIDES NOPATH (ISTHMUS THY) Procedures: Cyto Int and Re/2, PAPSTN/10 ---- Patient: Virgen Gonzales [id number] (Continued) ---- Specimen: [id number] Received: 02/17/24 (Continued) Gross Description (Continued) Signed (signature on file) Nishant Morley MD 02/19/24 1428 ---- Specimen: [id number] Received: 02/17/24 Status: ANIRUDH Andrade Num: [id number] Spec Type: Cytology Subm Dr: Aggie Davis CNP Tissues: A FNA SLIDES NOPATH (RT THYROID NOD) B FNA SLIDES NOPATH (ISTHMUS THY) Procedures: Cyto Int and Re/2, PAPN/10 ---- Patient: LatriciaaliciaVirgen Badillo [id number] (Continued) ---- Specimen: [id number] Received: 02/17/24 (Continued) Gross Description (Continued) been obtained as Isthmus thyroid nodule. ThinPrep preparations are prepared for microscopic examination. Also received are 4 spray fixed smeared smeared slides to be stained pap and a Veracyte vial stored at -20 for microscopic examination.(AL/ri) CPT Codes [id number] ---- ---- Specimen: [id number] Received: 02/17/24-1323 Status: ANIRUDH Ramon Num: [id number] Spec Type: Cytology Subm Dr: Aggie Davis CNP Tissues: A FNA SLIDES NOPATH (RT THYROID NOD) B FNA SLIDES NOPATH (ISTHMUS THY) Procedures: Cyto Int and Re/2, PAPSTN/10 ---- Patient: Virgen Gonzales [id number] (Continued) ---- Signed (signature on file) Nishant Morley MD 02/19/24 1632 Normal [facility] Nonvisit Note - PTon 12-10-2 024 Nonvisit Note - PT Pt cancelled reassessment due to being sick. JANICE cMintyre [facility] Nonvisit Note - PTon 024 Nonvisit Note - PT Pt no showed for 171 5 appointment. Normal [facility] Nonvisit Note - PTon 024 Nonvisit Note - PT Pt called to cancel as she is ill. Normal [facility] Consent for Treatmenton 10-28 Consent for Treatment [id number] [id number]#1.0 0TIFF Normal [facility] PT - Assessmentson PT - Assessments [id number] 22 [id number]#1.0 0TIFF Normal [facility] PT - Consentson 11-19-2023 PT - Consents [id number] 22 [id number]#1.0 0TIFF [facility] Insurance Correspondenceon 0 11-12-2023 Insurance Correspondence [id number]#1. 00TIFF [facility] PT - Orderson 11-11-2023 PT - Orders [id number] 01 [id number]#1. 00TIFF [facility] L Inj/Asp: L kneeon 08-27-19 24 Sue Henning, ARR T 09/02/2023 8:37 AM L Inj/Asp: L knee on 08/27/2023 3:43 PM Indications: pain Details: 21 G needle, lateral approach Medications: 16 mg hylan 16 MG/2ML Consent was given by the patient. [facility] PROF 14(COMP METB)on 023 Albumin [Mass/Vol] 3.2 g/dL Critically low 3.4-5.0 Th [facility] Comment on above: Performed By: #### T SH, CMP, T7, LIPID #### [facility] [address] [address] [address] Danay De Los Santos Albumin/Globulin [Mass ratio] 1.0 {ratio} Normal [facility] Comment on above: Performed By: #### T SH, CMP, T7, LIPID #### [facility] [address] [address] [address] Danay De Los Santos ALP [Catalytic activity/Vol] 92 U/L Normal 46-116 [facility] Comment on above: Performed By: #### T SH, CMP, T7, LIPID #### [facility] [address] [place] [address] Dr. Danay De Los Santos ALT [Catalytic activity/Vol] 21 U/L Normal 14-59 [facility] Comment on above: Performed By: #### T SH, CMP, T7, LIPID #### [facility] [address] [place] [address] Dr. Danay De Los Santos Anion gap [Moles/Vol] 13.2 mmol/L Normal [facility] Comment on above: Performed By: #### T SH, CMP, T7, LIPID #### [facility] [address] [place] [address] Dr. Danay De Los Santos AST [Catalytic activity/Vol] 14 U/L Critically low 15-37 [facility] Comment on above: Performed By: #### T SH, CMP, T7, LIPID #### [facility] [address] [place] [address] Dr. Danay De Los Santos Bilirubin [Mass/Vol] 0.2 mg/dL Normal 0.2-1.0 [facility] Comment on above: Performed By: #### T SH, CMP, T7, LIPID #### [facility] [address] [address] [address] Danay De Los Santos Calcium [Mass/Vol] 8.6 mg/dL Normal 8.5-10.1 [facility] Comment on above: Performed By: #### T SH, CMP, T7, LIPID #### [facility] [address] [place] [address] Dr. Danay De Los Santos Chloride [Moles/Vol] 105 mmol/L Normal 98-107 [facility] Comment on above: Performed By: #### T SH, CMP, T7, LIPID #### [facility] [address] [place] [address] Dr. Danay De Los Santos CO2 [Moles/Vol] 27.9 mmol/L Normal 21.0-32.0 [facility] Comment on above: Performed By: #### T SH, CMP, T7, LIPID #### [facility] [address] [address] [address] Danay De Los Santos Creatinine [Mass/Vol] 1.47 mg/dL Critically high 0.55-1.02 [facility] Comment on above: Performed By: #### T SH, CMP, T7, LIPID #### [facility] [address] [address] [address] Danay De Los Santos EGFR-AF MALTESE 43 mL/min/1.73m2 Critically low >=60 [facility] Comment on above: Performed By: #### T SH, CMP, T7, LIPID #### [facility] [facility] [address] [place] [address] Dr. Danay De Los Santos EGFR-NON AF MALTESE 35 mL/min/1.73m2 Critically low >=60 [facility] Comment on above: Performed By: #### T SH, CMP, T7, LIPID #### [facility] [address] [address] [address] Danay De Los Santos Globulin (S) [Mass/Vol] 3.3 g/dL Normal [facility] Comment on above: Performed By: #### T SH, CMP, T7, LIPID #### [facility] [address] [address] [address] Danay De Los Santos Glucose [Mass/Vol] 145 mg/dL Critically high 74-[address] [facility] Comment on above: Performed By: #### T SH, CMP, T7, LIPID #### [facility] [address] [address] [address] Danay De Los Santos Potassium [Moles/Vol] 4.1 mmol/L Normal 3.5-5.1 [facility] Comment on above: Performed By: #### T SH, CMP, T7, LIPID #### [facility] [address] [address] [address] Danay De Los Santos Protein [Mass/Vol] 6.5 g/dL Normal 6.4-8.2 [facility] Comment on above: Performed By: #### T SH, CMP, T7, LIPID #### [facility] [address] [address] [address] Danay De Los Santos Sodium [Moles/Vol] 142 mmol/L Normal 136-145 [facility] Comment on above: Performed By: #### T SH, CMP, T7, LIPID #### [facility] [address] [place] [address] Dr. Danay De Los Santos Urea nitrogen [Mass/Vol] 22.0 mg/dL Critically high 7.0-18.0 [facility] Comment on above: Performed By: #### T SH, CMP, T7, LIPID #### [facility] [address] [place] [address] Dr. Danay De Los Santos Urea nitrogen/Creatinine [Mass ratio] 15.0 mg/mg Normal [facility] Comment on above: Performed By: #### T SH, CMP, T7, LIPID #### [facility] [address] [place] [address] Dr. Danay De Los Santos PROF CHEM 8 (BAS METB)on Anion gap [Moles/Vol] 12.1 mmol/L Normal [facility] Comment on above: Performed By: #### B MP #### [facility] [address] [place] [address] Dr. Danay De Los Santos Calcium [Mass/Vol] 8.8 mg/dL Normal 8.5-10.1 [facility] Comment on above: Performed By: #### B MP #### [facility] [address] [place] [address] Dr. Danay De Los Santos Chloride [Moles/Vol] 103 mmol/L Normal 98-107 [facility] Comment on above: Performed By: #### B MP #### [facility] [address] [place] [address] Dr. Danay De Los Santos CO2 [Moles/Vol] 28.6 mmol/L Normal 21.0-32.0 [facility] Comment on above: Performed By: #### B MP #### [facility] [address] [place] [address] Dr. Danay De Los Santos Creatinine [Mass/Vol] 2.08 mg/dL Critically high 0.55-1.02 [facility] Comment on above: Performed By: #### B MP #### [facility] [address] [address] [address] Danay De Lso Santos EGFR-AF MALTESE 29 mL/min/1.73m2 Critically low >=60 [facility] Comment on above: Performed By: #### B MP #### [facility] [address] [address] [address] Danay De Los Santos EGFR-NON AF MALTESE 24 mL/min/1.73m2 Critically low >=60 [facility] Comment on above: Performed By: #### B MP #### [facility] [address] [address] [address] Danay De Los Santos Glucose [Mass/Vol] 259 mg/dL Critically high 74-[address] [facility] Comment on above: Performed By: #### B MP #### [facility] [address] [address] [address] Danay De Los Santos Potassium [Moles/Vol] 4.7 mmol/L Normal 3.5-5.1 [facility] Comment on above: Performed By: #### B MP #### [facility] [address] [address] [address] Danay De Los Santos Sodium [Moles/Vol] 139 mmol/L Normal 136-145 [facility] Comment on above: Performed By: #### B MP #### [facility] [address] [address] [address] Danay De Los Santos Urea nitrogen [Mass/Vol] 27.0 mg/dL Critically high 7.0-18.0 [facility] Comment on above: Performed By: #### B MP #### [facility] [address] [address] [address] Danay De Los Santos Urea nitrogen/Creatinine [Mass ratio] 13.0 mg/mg Normal [facility] Comment on above: Performed By: #### B MP #### [facility] [address] [address] [address] Danay De Los Santos INSULINon 12-17-2022 Insulin 11.1 uIU/mL Normal 2.6-24.9 [facility] Comment on above: Performed By: #### I NSULIN #### [facility] [address] [place] [address] Dr. Danay De Los Santos BNPon 12-15-2022 Natriuretic peptide B (Bld) [Mass/Vol] 110.0 pg/mL Normal <=900.0 [facility] Comment on above: Performed By: #### T SH, CMP, T7, LIPID #### [facility] [address] [place] [address] Dr. Danay De Los Santos CBC AUTO DIFFon 12-15-2022 BASO # 0.1 103/ul Normal 0.0-0.1 [facility] Comment on above: Performed By: #### T SH, CMP, T7, LIPID #### [facility] [address] [place] [address] Dr. Danay De Los Santos Basophils/100 WBC (Bld) 0.5 % Normal 0.2-2.[address] [facility] Comment on above: Performed By: #### T SH, CMP, T7, LIPID #### [facility] [address] [place] [address] Dr. Danay De Los Santos EO # 0.7 103/ul Normal 0.0-0.7 [facility] Comment on above: Performed By: #### T SH, CMP, T7, LIPID #### [facility] [address] [place] [address] Dr. Danay De Los Santos Eosinophils/100 WBC (Bld) 6.0 % Normal 0.9-7.0 [facility] Comment on above: Performed By: #### T SH, CMP, T7, LIPID #### [facility] [address] [place] [address] Dr. Danay De Los Santos Erythrocyte distribution width (RBC) [Ratio] 15.6 % Critically high 11.0-15.0 [facility] Comment on above: Performed By: #### T SH, CMP, T7, LIPID #### [facility] [address] [place] [address] Dr. Danay De Los Santos Hematocrit (Bld) [Volume fraction] 40.2 % Normal 36.0-48.0 [facility] Comment on above: Performed By: #### T SH, CMP, T7, LIPID #### [facility] [address] [place] [address] Dr. Danay De Los Santos Hemoglobin (Bld) [Mass/Vol] 12.6 g/dL Normal 12.0-16.0 [facility] Comment on above: Performed By: #### T SH, CMP, T7, LIPID #### [facility] [address] [place] [address] Dr. Danay De Los Santos IG # 0.06 10e3/ul Critically high 0.00-0.03 [facility] Comment on above: Performed By: #### T SH, CMP, T7, LIPID #### [facility] [address] [place] [address] Dr. Danay De Los Santos IG % 0.5 % Normal 0.0-0.5 [facility] Comment on above: Performed By: #### T SH, CMP, T7, LIPID #### [facility] [address] [place] [address] Dr. Danay De Los Santos LYMPH # 3.2 103/ul Normal 1.2-3.8 [facility] Comment on above: Performed By: #### T SH, CMP, T7, LIPID #### [facility] [address] [place] [address] Dr. Danay De Los Santos Lymphocytes/100 WBC (Bld) 28.9 % Normal 20.5-60.0 [facility] Comment on above: Performed By: #### T SH, CMP, T7, LIPID #### [facility] [address] [place] [address] Dr. Danay De Los Santos MANUAL DIFF REQ NO Normal [facility] Comment on above: Performed By: #### T SH, CMP, T7, LIPID #### [facility] [address] [place] [address] Dr. Danay De Los Santos MCH (RBC) [Entitic mass] 27.3 pg Normal 26.7-34.0 [facility] Comment on above: Performed By: #### T SH, CMP, T7, LIPID #### [facility] [address] [place] [address] Dr. Danay De Los Santos MCHC (RBC) [Mass/Vol] 31.3 g/dL Normal 29.9-35.2 [facility] Comment on above: Performed By: #### T SH, CMP, T7, LIPID #### [facility] [address] [place] [address] Dr. Danay De Los Santos MCV (RBC) [Entitic vol] 87.2 fL Normal 81.0-99.[address] [facility] Comment on above: Performed By: #### T SH, CMP, T7, LIPID #### [facility] [address] [place] [address] Dr. Danay De Los Santos MONO # 0.6 103/ul Normal 0.3-0.8 [facility] Comment on above: Performed By: #### T SH, CMP, T7, LIPID #### [facility] [address] [place] [address] Dr. Danay De Los Santos Monocytes/100 WBC (Bld) 5.7 % Normal 1.7-12.[address] [facility] Comment on above: Performed By: #### T SH, CMP, T7, LIPID #### [facility] [address] [place] [address] Dr. Danay De Los Santos NEUT # 6.4 103/ul Normal 1.4-6.5 [facility] Comment on above: Performed By: #### T SH, CMP, T7, LIPID #### [facility] [address] [place] [address] Dr. Danay De Los Santos Neutrophils/100 WBC (Bld) 58.4 % Normal 43.0-75.0 [facility] Comment on above: Performed By: #### T SH, CMP, T7, LIPID #### [facility] [address] [place] [address] Dr. Danay De Los Santos Platelet mean volume (Bld) [Entitic vol] 10.6 fL Normal 9.5-13.5 [facility] Comment on above: Performed By: #### T SH, CMP, T7, LIPID #### [facility] [address] [address] [address] Danay De Los Santos PLT 251 103/ul Normal 150-450 [facility] Comment on above: Performed By: #### T SH, CMP, T7, LIPID #### [facility] [address] [address] [address] Danay De Los Santos RBC 4.61 106/ul Normal 4.20-5.40 [facility] Comment on above: Performed By: #### T SH, CMP, T7, LIPID #### [facility] [address] [place] [address] Dr. Danay De Los Santos WBC 10.9 103/ul Normal 4.0-11.0 [facility] Comment on above: Performed By: #### T SH, CMP, T7, LIPID #### [facility] [address] [place] [address] Dr. Danay De Los Santos FREE THYROXINE INDEX T7on FTI 2.87 Normal 1.30-4.50 [facility] Comment on above: Performed By: #### T SH, CMP, T7, LIPID #### [facility] [address] [place] [address] Dr. Danay De Los Santos T3U 35.0 % Normal 30.0-39.0 [facility] Comment on above: Performed By: #### T SH, CMP, T7, LIPID #### [facility] [address] [place] [address] Dr. Danay De Los Santos T4 [Mass/Vol] 8.20 ug/dL Normal 4.80-13.90 [facility] Comment on above: Performed By: #### T SH, CMP, T7, LIPID #### [facility] [address] [place] [address] Dr. Danay De Los Santos GLYCOHEMOGLOBIN A1Con 2022 ADA RECOMMENDATION SEE BELOW Normal [facility] Comment on above: Result Comment: ADA RECOMMENDED LIMIT 4.0 - 6.0 ADA THERAPEUTIC TARGET < 7.0 ACTION SUGGESTED > 7.0 Performed By: #### A 1C #### [facility] [address] [place] [address] Dr. Danay De Los Santos Glucose [Mass/Vol] 203 mg/dL Normal [facility] Comment on above: Performed By: #### A 1C #### [facility] [address] [address] [address] Danay De Los Santos HbA1c (Bld) [Mass fraction] 8.7 % Critically high 4.5-6.2 [facility] Comment on above: Performed By: #### A 1C #### [facility] [address] [address] [address] Danay De Los Santos IRONon 12-15-2022 Iron [Mass/Vol] 39.0 ug/dL Critically low 50.0-170.0 [facility] Comment on above: Performed By: #### T SH, CMP, T7, LIPID #### [facility] [address] [address] [address] Danay De Los Santos LIPID PROFILEon 12-15-2022 CHOL-HDL RATIO NORM SEE BELOW Normal [facility] Comment on above: Result Comment: 3.3 - 4.4 LOW RISK 4.4 - 7.1 AVERAGE RISK 7.1 - 11.0 MODERATE RISK >11.0 HIGH RISK Performed By: #### T SH, CMP, T7, LIPID #### [facility] [address] [address] [address] Danay De Los Santos Cholesterol [Mass/Vol] 123 mg/dL Normal <=200 [facility] Comment on above: Performed By: #### T SH, CMP, T7, LIPID #### [facility] [address] [address] [address] Danay De Los Santos Cholesterol in HDL [Mass/Vol] 40 mg/dL Normal 40-60 [facility] Comment on above: Performed By: #### T SH, CMP, T7, LIPID #### [facility] [address] [address] [address] Danay De Los Santos Cholesterol in LDL [Mass/Vol] 70.4 mg/dL Normal [facility] Comment on above: Performed By: #### T SH, CMP, T7, LIPID #### [facility] [address] [address] [address] Danay De Los Santos Cholesterol.total/Vivian sterol in HDL [Mass ratio] 3.1 {ratio} Normal [facility] Comment on above: Performed By: #### T SH, CMP, T7, LIPID #### [facility] [address] [address] [address] Danay De Los Santos HDL NORMAL > or = 60 mg/dl - LO W CARDIOVASCULAR RISK <40 mg/dl - HIGH CARDIOVASCULAR RISK Normal [facility] Comment on above: Performed By: #### T SH, CMP, T7, LIPID #### [facility] [address] [address] [address] Danay De Los Santos LDL CALC NORMAL SEE BELOW Normal [facility] Comment on above: Result Comment: <100 mg/dl OPTIMAL 100 - 129 mg/dl NEAR OR ABOVE OPTIMAL 130 - 159 mg/dl BORDERLINE HIGH 160 - 189 mg/dl HIGH >190 mg/dl VERY HIGH Performed By: #### T SH, CMP, T7, LIPID #### [facility] [address] [place] [address] Dr. Danay De Los Santos Triglyceride [Mass/Vol] 63 mg/dL Normal <=[address] [facility] Comment on above: Performed By: #### T SH, CMP, T7, LIPID #### [facility] [address] [address] [address] Danay De Los Santos VLDL CALC 12.6 mg/dL Normal [facility] Comment on above: Performed By: #### T SH, CMP, T7, LIPID #### [facility] [address] [place] [address] Dr. Danay De Los Santos PROF 14(COMP METB)on 023 Albumin [Mass/Vol] 3.3 g/dL Critically low 3.4-5.0 [facility] Comment on above: Performed By: #### T SH, CMP, T7, LIPID #### [facility] [address] [place] [address] Dr. Danay De Los Santos Albumin/Globulin [Mass ratio] 1.0 {ratio} Normal [facility] Comment on above: Performed By: #### T SH, CMP, T7, LIPID #### [facility] [address] [place] [address] Dr. Danay De Los Santos ALP [Catalytic activity/Vol] 94 U/L Normal 46-116 [facility] Comment on above: Performed By: #### T SH, CMP, T7, LIPID #### [facility] [address] [place] [address] Dr. Danay De Los Santos ALT [Catalytic activity/Vol] 17 U/L Normal 14-59 [facility] Comment on above: Performed By: #### T SH, CMP, T7, LIPID #### [facility] [address] [place] [address] Dr. Danay De Los Santos Anion gap [Moles/Vol] 14.3 mmol/L Normal [facility] Comment on above: Performed By: #### T SH, CMP, T7, LIPID #### [facility] [address] [place] [address] Dr. Danay De Los Santos AST [Catalytic activity/Vol] 11 U/L Critically low 15-37 [facility] Comment on above: Performed By: #### T SH, CMP, T7, LIPID #### [facility] [address] [place] [address] Dr. Danay De Los Santos Bilirubin [Mass/Vol] 0.3 mg/dL Normal 0.2-1.0 [facility] Comment on above: Performed By: #### T SH, CMP, T7, LIPID #### [facility] [address] [place] [address] Dr. Danay De Los Santos Calcium [Mass/Vol] 9.1 mg/dL Normal 8.5-10.1 [facility] Comment on above: Performed By: #### T SH, CMP, T7, LIPID #### [facility] [address] [place] [address] Dr. Danay De Los Santos Chloride [Moles/Vol] 105 mmol/L Normal 98-107 [facility] Comment on above: Performed By: #### T SH, CMP, T7, LIPID #### [facility] [address] [place] [address] Dr. Danay De Los Santos CO2 [Moles/Vol] 29.3 mmol/L Normal 21.0-32.0 [facility] Comment on above: Performed By: #### T SH, CMP, T7, LIPID #### [facility] [address] [place] [address] Dr. Danay De Los Santos Creatinine [Mass/Vol] 1.53 mg/dL Critically high 0.55-1.02 [facility] Comment on above: Performed By: #### T SH, CMP, T7, LIPID #### [facility] [address] [place] [address] Dr. Danay De Los Santos EGFR-AF MALTESE 41 mL/min/1.73m2 Critically low >=60 [facility] Comment on above: Performed By: #### T SH, CMP, T7, LIPID #### [facility] [address] [place] [address] Dr. Danay De Los Santos EGFR-NON AF MALTESE 34 mL/min/1.73m2 Critically low >=60 [facility] Comment on above: Performed By: #### T SH, CMP, T7, LIPID #### [facility] [address] [place] [address] Dr. Danay De Los Santos Globulin (S) [Mass/Vol] 3.4 g/dL Normal [facility] Comment on above: Performed By: #### T SH, CMP, T7, LIPID #### [facility] [address] [place] [address] Dr. Danay De Los Santos Glucose [Mass/Vol] 192 mg/dL Critically high 74-[address] [facility] Comment on above: Performed By: #### T SH, CMP, T7, LIPID #### [facility] [address] [place] [address] Dr. Danay De Los Santos Potassium [Moles/Vol] 4.6 mmol/L Normal 3.5-5.1 [facility] Comment on above: Performed By: #### T SH, CMP, T7, LIPID #### [facility] [address] [place] [address] Dr. Danay De Los Santos Protein [Mass/Vol] 6.7 g/dL Normal 6.4-8.2 [facility] Comment on above: Performed By: #### T SH, CMP, T7, LIPID #### [facility] [address] [place] [address] Dr. Danay De Los Santos Sodium [Moles/Vol] 144 mmol/L Normal 136-145 [facility] Comment on above: Performed By: #### T SH, CMP, T7, LIPID #### [facility] [address] [address] [address] Danay De Los Santos Urea nitrogen [Mass/Vol] 25.0 mg/dL Critically high 7.0-18.0 [facility] Comment on above: Performed By: #### T SH, CMP, T7, LIPID #### [facility] [address] [place] [address] Dr. Danay De Los Santos Urea nitrogen/Creatinine [Mass ratio] 16.3 mg/mg Normal [facility] Comment on above: Performed By: #### T SH, CMP, T7, LIPID #### [facility] [address] [place] [address] Dr. Danay De Los Santos TSHon 12-15-2022 TSH 2.181 uIU/mL Normal 0.358-3.740 [facility] Comment on above: Performed By: #### T SH, CMP, T7, LIPID #### [facility] [address] [place] [address] Dr. Danay De Los Santos VITAMIN D 25 OHon 12-15-2022 VIT D 25-OH 32.9 ng/mL Normal [facility] Comment on above: Performed By: #### T SADAF, CMP, T7, LIPID #### [facility] [address] [place] [address] Dr. Danay De Los Santos VIT D RANGES SEE BELOW Normal [facility] Comment on above: Result Comment: <20 ng/mL Vit D deficient 20 - <30 ng/mL Vit D insufficient 30 - 100 ng/mL Vit D sufficient >100 ng/mL Potential Toxicity Performed By: #### T SH, CMP, T7, LIPID #### [facility] [address] [place] [address] Dr. Danay De Los Santos US ROEL [...] 12:54 Normal [facility] XR Hand Complete Left*on XR Hand Complete Left* CLINICAL HISTORY: Fall with left hand stiffness. COMPARISON: None. RESULT: No distinct acute fracture. No dislocation. Underlying decreased bone mineral density. Mild to moderate scattered degenerative changes. Soft tissue edema. IMPRESSION: No acute osseous findings radiographically. Report reported and signed by Home Lockwood on 08/24/2022 1108 Normal [facility] XR Spine Cervical Complete*o n 08-24-2022 XR [...] by Home Lockwood on 08/24/2022 1109 Normal [facility] XR HAND RIMA MIN 3Von 023 XR HAND RIMA MIN 3V EXAM: XR HAND RIMA MO N 3V HISTORY: Pain following fall COMPARISON: None. TECHNIQUE: 3 views of each hand FINDINGS: No visualized fracture, dislocation, subluxation or osseous lesion. Age-related joint space changes. No gross visualized soft tissue edema. IMPRESSION: No visualized abnormality Electronically authenticated by: BRIANNA KU Date: 2022-08-06 20:28 Normal [facility] XR HIP RT 2 3V W [...] BRIANNA KU Date: 2022-08-06 20:29 Normal [facility] XR SHOULDER RT 2V or >on [...] BRIANNA KU Date: 2022-08-06 20:21 Normal [facility] XR Foot Complete Left*on XR Foot Complete Left* COMPARISON: None available HISTORY: Second and third digit pain after a fall TECHNIQUE: AP, lateral and oblique views of the foot obtained. FINDINGS: No acute fracture or dislocation. Joint spaces are preserved. Soft tissues are within normal limits. IMPRESSION: No acute osseous abnormality. Report reported and signed by Drew Looney on 08/04/2022 1044 Normal [facility] XR Knee Complete Left*on XR Knee Complete [...] by Drew Looney on 08/04/2022 1046 Normal [facility] Specialist MRI BRAIN WO CONon MRI [...] BRIANNA GREEN Date: 2022-07-02 14:48 Normal [facility] INSULINon 05-28-2022 Insulin 13.4 uIU/mL Normal 2.6-24.9 [facility] Comment on above: Performed By: #### I NSULIN #### [facility] [address] [place] [address] Dr. Danay De Los Santos CBC AUTO DIFFon 05-26-2022 BASO # 0.1 103/ul Normal 0.0-0.1 [facility] Comment on above: Performed By: #### C BC #### [facility] [address] [place] [address] Dr. Danay De Los Santos Basophils/100 WBC (Bld) 0.8 % Normal 0.2-2.[address] [facility] Comment on above: Performed By: #### C BC #### [facility] [address] [place] [address] Dr. Danay De Los Santos EO # 0.6 103/ul Normal 0.0-0.7 [facility] Comment on above: Performed By: #### C BC #### [facility] [address] [place] [address] Dr. Danay De Los Santos Eosinophils/100 WBC (Bld) 5.1 % Normal 0.9-7.0 [facility] Comment on above: Performed By: #### C BC #### [facility] [address] [place] [address] Dr. Danay De Los Santos Erythrocyte distribution width (RBC) [Ratio] 14.7 % Normal 11.0-15.0 [facility] Comment on above: Performed By: #### C BC #### [facility] [address] [place] [address] Dr. Danay De Los Santos Hematocrit (Bld) [Volume fraction] 37.8 % Normal 36.0-48.0 [facility] Comment on above: Performed By: #### C BC #### [facility] [address] [place] [address] Dr. Danay De Los Santos Hemoglobin (Bld) [Mass/Vol] 12.3 g/dL Normal 12.0-16.0 [facility] Comment on above: Performed By: #### C BC #### [facility] [address] [place] [address] Dr. Danay De Los Santos IG # 0.05 10e3/ul Critically high 0.00-0.03 [facility] Comment on above: Performed By: #### C BC #### [facility] [address] [place] [address] Dr. Danay De Los Santos IG % 0.5 % Normal 0.0-0.5 [facility] Comment on above: Performed By: #### C BC #### [facility] [address] [place] [address] Dr. Danay De Los Santos LYMPH # 2.1 103/ul Normal 1.2-3.8 [facility] Comment on above: Performed By: #### C BC #### [facility] [address] [place] [address] Dr. Danay De Los Santos Lymphocytes/100 WBC (Bld) 19.1 % Critically low 20.5-60.0 [facility] Comment on above: Performed By: #### C BC #### [facility] [address] [place] [address] Dr. Danay De Los Santos MANUAL DIFF REQ NO Normal [facility] Comment on above: Performed By: #### C BC #### [facility] [address] [place] [address] Dr. Danay De Los Santos MCH (RBC) [Entitic mass] 30.8 pg Normal 26.7-34.0 [facility] Comment on above: Performed By: #### C BC #### [facility] [address] [place] [address] Dr. Danay De Los Santos MCHC (RBC) [Mass/Vol] 32.5 g/dL Normal 29.9-35.2 [facility] Comment on above: Performed By: #### C BC #### [facility] [address] [place] [address] Dr. Danay De Los Santos MCV (RBC) [Entitic vol] 94.5 fL Normal 81.0-99.[address] [facility] Comment on above: Performed By: #### C BC #### [facility] [address] [place] [address] Dr. Danay De Los Santos MONO # 0.6 103/ul Normal 0.3-0.8 [facility] Comment on above: Performed By: #### C BC #### [facility] [address] [place] [address] Dr. Danay De Los Santos Monocytes/100 WBC (Bld) 5.1 % Normal 1.7-12.[address] [facility] Comment on above: Performed By: #### C BC #### [facility] [address] [place] [address] Dr. Danay De Los Santos NEUT # 7.5 103/ul Critically high 1.4-6.5 [facility] Comment on above: Performed By: #### C BC #### [facility] [address] [place] [address] Dr. Danay De Los Santos Neutrophils/100 WBC (Bld) 69.4 % Normal 43.0-75.0 [facility] Comment on above: Performed By: #### C BC #### [facility] [address] [place] [address] Dr. Danay De Los Santos Platelet mean volume (Bld) [Entitic vol] 10.9 fL Normal 9.5-13.5 [facility] Comment on above: Performed By: #### C BC #### [facility] [address] [place] [address] Dr. Danay De Los Santos PLT 235 103/ul Normal 150-450 [facility] Comment on above: Performed By: #### C BC #### [facility] [address] [place] [address] Dr. Danay De Los Santos RBC 4.00 106/ul Critically low 4.20-5.40 [facility] Comment on above: Performed By: #### C BC #### [facility] [address] [place] [address] Dr. Danay De Los Santos WBC 10.8 103/ul Normal 4.0-11.0 [facility] Comment on above: Performed By: #### C BC #### [facility] [address] [place] [address] Dr. Danay De Los Santos FREE THYROXINE INDEX T7on FTI 1.83 Normal 1.30-4.50 [facility] Comment on above: Performed By: #### T SH, CMP, T7, LIPID #### [facility] [address] [place] [address] Dr. Danay De Los Santos T3U 31.0 % Normal 30.0-39.0 [facility] Comment on above: Performed By: #### T SH, CMP, T7, LIPID #### [facility] [address] [place] [address] Dr. Danay De Los Santos T4 [Mass/Vol] 5.90 ug/dL Normal 4.80-13.90 [facility] Comment on above: Performed By: #### T SH, CMP, T7, LIPID #### [facility] [address] [place] [address] Dr. Danay De Los Santos GLYCOHEMOGLOBIN A1Con 2021 ADA RECOMMENDATION SEE BELOW Normal [facility] Comment on above: Result Comment: ADA RECOMMENDED LIMIT 4.0 - 6.0 ADA THERAPEUTIC TARGET < 7.0 ACTION SUGGESTED > 7.0 Performed By: #### A 1C #### [facility] [address] [place] [address] Dr. Danay De Los Santos Glucose [Mass/Vol] 186 mg/dL Normal [facility] Comment on above: Performed By: #### A 1C #### [facility] [address] [place] [address] Dr. Danay De Los Santos HbA1c (Bld) [Mass fraction] 8.1 % Critically high 4.5-6.2 [facility] Comment on above: Performed By: #### A 1C #### [facility] [address] [address] [address] Danay De Los Santos IRONon 05-26-2022 Iron [Mass/Vol] 61.0 ug/dL Normal 50.0-170.0 [facility] Comment on above: Performed By: #### T SH, CMP, T7, LIPID #### [facility] [address] [address] [address] Danay De Los Santos LIPID PROFILEon 05-26-2022 CHOL-HDL RATIO NORM SEE BELOW Normal [facility] Comment on above: Result Comment: 3.3 - 4.4 LOW RISK 4.4 - 7.1 AVERAGE RISK 7.1 - 11.0 MODERATE RISK >11.0 HIGH RISK Performed By: #### T SH, CMP, T7, LIPID #### [facility] [address] [address] [address] Danay De Los Santos Cholesterol [Mass/Vol] 130 mg/dL Normal <=200 [facility] Comment on above: Performed By: #### T SH, CMP, T7, LIPID #### [facility] [address] [address] [address] Danay De Los Santos Cholesterol in HDL [Mass/Vol] 40 mg/dL Normal 40-60 [facility] Comment on above: Performed By: #### T SH, CMP, T7, LIPID #### [facility] [address] [address] [address] Danay De Los Santos Cholesterol in LDL [Mass/Vol] 75.8 mg/dL Normal [facility] Comment on above: Performed By: #### T SH, CMP, T7, LIPID #### [facility] [address] [address] [address] Danay De Los Santos Cholesterol.total/Vivian sterol in HDL [Mass ratio] 3.3 {ratio} Normal [facility] Comment on above: Performed By: #### T SH, CMP, T7, LIPID #### [facility] [address] [address] [address] Danay De Los Santos HDL NORMAL > or = 60 mg/dl - LO W CARDIOVASCULAR RISK <40 mg/dl - HIGH CARDIOVASCULAR RISK Normal [facility] Comment on above: Performed By: #### T SH, CMP, T7, LIPID #### [facility] [address] [address] [address] Danay De Los Santos LDL CALC NORMAL SEE BELOW Normal [facility] Comment on above: Result Comment: <100 mg/dl OPTIMAL 100 - 129 mg/dl NEAR OR ABOVE OPTIMAL 130 - 159 mg/dl BORDERLINE HIGH 160 - 189 mg/dl HIGH >190 mg/dl VERY HIGH Performed By: #### T SH, CMP, T7, LIPID #### [facility] [address] [address] [address] Danay De Los Santos Triglyceride [Mass/Vol] 71 mg/dL Normal <=[address] [facility] Comment on above: Performed By: #### T SH, CMP, T7, LIPID #### [facility] [address] [place] [address] Dr. Danay De Los Santos VLDL CALC 14.2 mg/dL Normal [facility] Comment on above: Performed By: #### T SH, CMP, T7, LIPID #### [facility] [address] [address] [address] Danay De Los Santos PROF 14(COMP METB)on 022 Albumin [Mass/Vol] 3.4 g/dL Normal 3.4-5.0 [facility] Comment on above: Performed By: #### T SH, CMP, T7, LIPID #### [facility] [address] [place] [address] Dr. Danay De Los Santos Albumin/Globulin [Mass ratio] 1.0 {ratio} Normal [facility] Comment on above: Performed By: #### T SH, CMP, T7, LIPID #### [facility] [address] [address] [address] Danay De Los Santos ALP [Catalytic activity/Vol] 92 U/L Normal 46-116 [facility] Comment on above: Performed By: #### T SH, CMP, T7, LIPID #### [facility] [address] [address] [address] Danay De Los Santos ALT [Catalytic activity/Vol] 15 U/L Normal 14-59 [facility] Comment on above: Performed By: #### T SH, CMP, T7, LIPID #### [facility] [address] [address] [address] Danay De Los Santos Anion gap [Moles/Vol] 10.4 mmol/L Normal Th [facility] Comment on above: Performed By: #### T SH, CMP, T7, LIPID #### [facility] [address] [address] [address] Danay De Los Santos AST [Catalytic activity/Vol] 12 U/L Critically low 15-37 [facility] Comment on above: Performed By: #### T SH, CMP, T7, LIPID #### [facility] [address] [place] [address] Dr. Danay De Los Santos Bilirubin [Mass/Vol] 0.4 mg/dL Normal 0.2-1.0 [facility] Comment on above: Performed By: #### T SH, CMP, T7, LIPID #### [facility] [address] [place] [address] Dr. Danay De Los Santos Calcium [Mass/Vol] 8.7 mg/dL Normal 8.5-10.1 [facility] Comment on above: Performed By: #### T SH, CMP, T7, LIPID #### [facility] [address] [place] [address] Dr. Danay De Los Santos Chloride [Moles/Vol] 107 mmol/L Normal 98-107 [facility] Comment on above: Performed By: #### T SH, CMP, T7, LIPID #### [facility] [address] [address] [address] Danay De Los Santos CO2 [Moles/Vol] 28.9 mmol/L Normal 21.0-32.0 [facility] Comment on above: Performed By: #### T SH, CMP, T7, LIPID #### [facility] [address] [place] [address] Dr. Danay De Los Santos Creatinine [Mass/Vol] 1.18 mg/dL Critically high 0.55-1.02 [facility] Comment on above: Performed By: #### T SH, CMP, T7, LIPID #### [facility] [address] [place] [address] Dr. Danay De Los Santos EGFR-AF MALTESE 55 mL/min/1.73m2 Critically low >=60 [facility] Comment on above: Performed By: #### T SH, CMP, T7, LIPID #### [facility] [address] [address] [address] Danay De Los Santos EGFR-NON AF MALTESE 46 mL/min/1.73m2 Critically low >=60 [facility] Comment on above: Performed By: #### T SH, CMP, T7, LIPID #### [facility] [address] [address] [address] Danay De Los Santos Globulin (S) [Mass/Vol] 3.3 g/dL Normal [facility] Comment on above: Performed By: #### T SH, CMP, T7, LIPID #### [facility] [address] [place] [address] Dr. Danay De Los Santos Glucose [Mass/Vol] 153 mg/dL Critically high 74-[address] [facility] Comment on above: Performed By: #### T SH, CMP, T7, LIPID #### [facility] [address] [place] [address] Dr. Danay De Los Santos Potassium [Moles/Vol] 4.3 mmol/L Normal 3.5-5.1 [facility] Comment on above: Performed By: #### T SH, CMP, T7, LIPID #### [facility] [address] [place] [address] Dr. Danay De Los Santos Protein [Mass/Vol] 6.7 g/dL Normal 6.4-8.2 [facility] Comment on above: Performed By: #### T SH, CMP, T7, LIPID #### [facility] [address] [place] [address] Dr. Danay De Los Santos Sodium [Moles/Vol] 142 mmol/L Normal 136-145 [facility] Comment on above: Performed By: #### T SH, CMP, T7, LIPID #### [facility] [address] [address] [address] Danay De Los Santos Urea nitrogen [Mass/Vol] 16.0 mg/dL Normal 7.0-18.0 [facility] Comment on above: Performed By: #### T SH, CMP, T7, LIPID #### [facility] [address] [address] [address] Danay De Los Santos Urea nitrogen/Creatinine [Mass ratio] 13.6 mg/mg Normal [facility] Comment on above: Performed By: #### T SH, CMP, T7, LIPID #### [facility] [address] [address] [address] Danay De Los Santos TSHon 05-26-2022 TSH 1.443 uIU/mL Normal 0.358-3.740 [facility] Comment on above: Performed By: #### T SH, CMP, T7, LIPID #### [facility] [address] [id number] Danay De Los Santos XR DEXA [...] AVILEZ Date: 2022-04-05 12:11 Normal [facility] GLYCOHEMOGLOBIN A1Con 2021 ADA RECOMMENDATION SEE BELOW Normal [facility] Comment on above: Result Comment: ADA RECOMMENDED LIMIT 4.0 - 6.0 ADA THERAPEUTIC TARGET < 7.0 ACTION SUGGESTED > 7.0 Performed By: #### T SH, CMP, T7, LIPID #### [facility] [address] [address] [address] Danay De Los Santos Glucose [Mass/Vol] 174 mg/dL Normal [facility] Comment on above: Performed By: #### T SH, CMP, T7, LIPID #### [facility] [address] [place], [place] [address] Dr. Danay De Los Santos HbA1c (Bld) [Mass fraction] 7.7 % Critically high 4.5-6.2 [facility] Comment on above: Performed By: #### T SH, CMP, T7, LIPID #### [facility] [address] [place], [place] [address] Dr. Danay De Los Santos MG MAMM SCREEN 3D RIMA CADon 02-14-2022 MG MAMM SCREEN 3D RIMA CAD Patient: VIRGEN GONZALES Exam Date: 02/14/2022 : 1955 Gender:F Ordering : AGGIE DAVIS [facility] Admission #: [id number] Family : Order #: [id number] CLICK HERE TO VIEW EXAM RADIOLOGY REPORT [...] unknown cancer at age 24. LOCATION: [facility] BREAST COMPOSITION: Heterogeneously dense,which may obscure [...] 02/14/2022 at 16:12 Normal [facility] CARDIAC STRESS/REST INJE CTIONon 01-27-2020 [facility] CARDIAC STRESS/REST INJECTION Patient Name: VIRGEN GONZALES STUDY: MYOCARDIAL PERFUSION STRESS TEST WITH LEXISCAN Performing facility: [facility], [address] [place] [address], [address], [place] [address] [facility] Provider: Catarino Koroma MD, [facility] PCP: Dr. Nicola Granger Supervising provider: Catarino Koroma MD, [facility] INDICATION: Abnormal EKG; Pre-operative risk assessment for Knee surgery scheduled at unknown on unknown. RBBB HISTORY: Gender: F; Age: 64 y/o ; Height: 152.4 cm; Weight: 77.2109462 kg. High Cholesterol; Abnormal EKG; Diabetes; Family HX CAD; HTN; Smoking COMPARISON: No comparison. ACCESSION NUMBER(S): [id number]; [id number]; [id number] ORDERING CLINICIAN: CATARINO KOROMA TECHNIQUE: ONE DAY [...] comparison. Electronically signed by: CATARINO KOROMA MD [facility] Vital Signs Date Time Vital Sign Value Performing Clinician Swapnil [email or web address] 01-04-2025 13:41-0400 Body weight 89.81 kg Aggie Susan LEARNING ENGINEER-C Work Phone: [facility] 01-04-2025 13:41-0400 Diastolic blood pressure 68 mm[Hg] Aggie Susan LEARNING ENGINEER-C Work Phone: [facility] 01-04-2025 13:41-0400 Heart rate 84 /min Aggie Susan LEARNING ENGINEER-C Work Phone: [facility] 01-04-2025 13:41-0400 SaO2% (BldA) [Mass fraction] 97 % Aggie Susan LEARNING ENGINEER-C Work Phone: [facility] 01-04-2025 13:41-0400 Systolic blood pressure 118 mm[Hg] Aggie Susan LEARNING ENGINEER-C Work Phone: [facility] 12-08-2024 09:48-0400 Respiratory rate 20 /min Brice Mitralign [facility] 12-08-2024 09:47-0400 Diastolic blood pressure 80 mm[Hg] Brice Mitralign [facility] 12-08-2024 09:47-0400 Heart rate 78 /min Brice Mitralign [facility] 12-08-2024 09:47-0400 Mean blood pressure 100 mm[Hg] Brice Mitralign [facility] 12-08-2024 09:47-0400 Systolic blood pressure 140 mm[Hg] Brice Mitralign [facility] 12-08-2024 09:46-0400 Heart rate 80 /min Brice Mitralign [facility] 12-08-2024 09:46-0400 SaO2% (BldA) [Mass fraction] 95 % Brice Estrella [facility] 12-08-2024 09:46-0400 Diastolic blood pressure 77 mm[Hg] Brice Estrella [facility] 12-08-2024 09:46-0400 Mean blood pressure 98 mm[Hg] Brice Estrella [facility] 12-08-2024 09:46-0400 Systolic blood pressure 139 mm[Hg] Brice Estrella [facility] 11-26-2024 13:23-0400 Body height 152.4 cm Brice Estrella DO Work Phone: [facility] 11-26-2024 13:23-0400 Body mass index (BMI) [Ratio] 39.65 kg/m2 Brice Estrella DO Work Phone: [facility] 11-26-2024 13:23-0400 Body weight 92.08 kg Brice Estrella DO Work Phone: [facility] 11-23-2024 11:53-0400 Body height 152.4 cm Aggie Davis LEARNING ENGINEER-C Work Phone: [facility] 11-23-2024 11:53-0400 Body temperature 97.8 [degF] Aggie Davis LEARNING ENGINEER-C Work Phone: [facility] 11-23-2024 11:53-0400 Diastolic blood pressure 71 mm[Hg] Aggie Davis LEARNING ENGINEER-C Work Phone: [facility] 11-23-2024 11:53-0400 Heart rate 92 /min Aggie Davis LEARNING ENGINEER-C Work Phone: [facility] 11-23-2024 11:53-0400 Respiratory rate 18 /min Aggie Davis LEARNING ENGINEER-C Work Phone: [facility] 11-23-2024 11:53-0400 SaO2% (BldA) [Mass fraction] 96 % Aggie Davis LEARNING ENGINEERLitzyC Work Phone: [facility] 11-23-2024 11:53-0400 Systolic blood pressure 105 mm[Hg] Aggie Davis LEARNING ENGINEERLitzyC Work Phone: [facility] 11-16-2024 12:12-0400 Body height 152.4 cm Mathieu Naqvi MD Work Phone: [facility] 11-16-2024 12:12-0400 Body mass index (BMI) [Ratio] 39.65 kg/m2 Mathieu Naqvi MD Work Phone: [facility] 11-16-2024 12:12-0400 Body weight 92.08 kg Mathieu Naqvi MD Work Phone: [facility] 11-16-2024 12:12-0400 Diastolic blood pressure 68 mm[Hg] Mathieu Naqvi MD Work Phone: [facility] 11-16-2024 12:12-0400 Heart rate 79 /min Mathieu Naqvi MD Work Phone: [facility] 11-16-2024 12:12-0400 Respiratory rate 18 /min Mathieu Naqvi MD Work Phone: [facility] 11-16-2024 12:12-0400 SaO2% (BldA) [Mass fraction] 94 % Mathieu Naqvi MD Work Phone: [facility] 11-16-2024 12:12-0400 Systolic blood pressure 124 mm[Hg] Mathieu Naqvi MD Work Phone: [facility] 11-09-2024 10:02-0400 Body height 152.4 cm Da Phillip DO Work Phone: [facility] 11-09-2024 10:02-0400 Body mass index (BMI) [Ratio] 40.04 kg/m2 Da Phillip DO Work Phone: [facility] 11-09-2024 10:02-0400 Body weight 92.99 kg Da Phillip DO Work Phone: [facility] 11-05-2024 10:41-0400 Body height 152.4 cm Brice Estrella DO Work Phone: [facility] 11-05-2024 10:41-0400 Body mass index (BMI) [Ratio] 40.43 kg/m2 Brice Estrella DO Work Phone: [facility] 11-05-2024 10:41-0400 Body weight 93.89 kg Brice Estrella DO Work Phone: [facility] 09-21-2024 08:22-0500 Body height 152.4 cm Aggie Davis LEARNING ENGINEER-C Work Phone: [facility] 09-21-2024 08:22-0500 Body mass index (BMI) [Ratio] 40.8 kg/m2 Aggie Davis LEARNING ENGINEER-C Work Phone: [facility] 09-21-2024 08:22-0500 Body weight 94.8 kg Aggie Davis LEARNING ENGINEER-C Work Phone: [facility] 09-21-2024 08:14-0500 Body temperature 97.5 [degF] Aggie Mccormackmer LEARNING ENGINEER-C Work Phone: [facility] 09-21-2024 08:14-0500 Diastolic blood pressure 75 mm[Hg] Aggie Davis LEARNING ENGINEER-C Work Phone: [facility] 09-21-2024 08:14-0500 Heart rate 86 /min Aggie Susan LEARNING ENGINEER-C Work Phone: [facility] 09-21-2024 08:14-0500 Respiratory rate 20 /min Aggie Susan LEARNING ENGINEER-C Work Phone: [facility] 09-21-2024 08:14-0500 Systolic blood pressure 121 mm[Hg] Aggie Mccormackmer LEARNING ENGINEER-C Work Phone: [facility] 09-07-2024 09:09-0500 Blood Pressure Location Kang BOSS [facility] 09-07-2024 09:09-0500 Diastolic blood pressure 74 mm[Hg] Kang BOSS [facility] 09-07-2024 09:09-0500 Heart rate 70 /min Kangmarcos BOSS [facility] 09-07-2024 09:09-0500 Respiratory rate 18 /min Kangmarcos BOSS [facility] 09-07-2024 09:09-0500 Systolic blood pressure 112 mm[Hg] Kang BOSS [facility] 08-31-2024 13:49-0500 Body height 152.4 cm Aggie Davis LEARNING ENGINEER-C Work Phone: [facility] 08-31-2024 13:49-0500 Body mass index (BMI) [Ratio] 39.9 kg/m2 Aggie Davis LEARNING ENGINEER-C Work Phone: [facility] 08-31-2024 13:49-0500 Body temperature 97.8 [degF] Aggie Mccormackmer LEARNING ENGINEER-C Work Phone: [facility] 08-31-2024 13:49-0500 Body weight 92.75 kg Aggie Davis LEARNING ENGINEER-C Work Phone: [facility] 08-31-2024 13:49-0500 Diastolic blood pressure 71 mm[Hg] Aggie Mccormackmer LEARNING ENGINEER-C Work Phone: [facility] 08-31-2024 13:49-0500 Heart rate 68 /min Aggie Davis LEARNING ENGINEER-C Work Phone: [facility] 08-31-2024 13:49-0500 Respiratory rate 18 /min Aggie Davis LEARNING ENGINEER-C Work Phone: [facility] 08-31-2024 13:49-0500 SaO2% (BldA) [Mass fraction] 98 % Aggie Davis LEARNING ENGINEER-C Work Phone: [facility] 08-31-2024 13:49-0500 Systolic blood pressure 106 mm[Hg] Aggie Davis LEARNING ENGINEER-C Work Phone: [facility] 08-31-2024 10:24-0500 Body height 152.4 cm Brice Estrella DO Work Phone: [facility] 08-31-2024 10:24-0500 Body mass index (BMI) [Ratio] 40.43 kg/m2 Brice Estrella DO Work Phone: [facility] 08-31-2024 10:24-0500 Body weight 93.89 kg Brice Estrella DO Work Phone: [facility] 08-20-2024 09:05-0500 Body mass index (BMI) [Ratio] 40.43 kg/m2 Liborioer Estrella DO Work Phone: [facility] 08-20-2024 09:05-0500 Body weight 93.89 kg Christopher Estrella DO Work Phone: [facility] 08-20-2024 09:05-0500 Diastolic blood pressure 80 mm[Hg] Christopher Estrella DO Work Phone: [facility] 08-20-2024 09:05-0500 Heart rate 80 /min Christopher Estrella DO Work Phone: [facility] 08-20-2024 09:05-0500 SaO2% (BldA) [Mass fraction] 95 % Christopher Estrella DO Work Phone: [facility] 08-20-2024 09:05-0500 Systolic blood pressure 144 mm[Hg] Christopher Estrella DO Work Phone: [facility] 08-19-2024 10:18-0500 Body height 152.4 cm Aggie Davis LEARNING ENGINEER-C Work Phone: [facility] 08-19-2024 10:18-0500 Body mass index (BMI) [Ratio] 40.8 kg/m2 Aggie Susan LEARNING ENGINEER-C Work Phone: [facility] 08-19-2024 10:18-0500 Body weight 94.8 kg Aggie Susan LEARNING ENGINEER-C Work Phone: [facility] 08-19-2024 09:13-0500 Body temperature 98.2 [degF] Aggie Susan LEARNING ENGINEER-C Work Phone: [facility] 08-19-2024 09:13-0500 Diastolic blood pressure 44 mm[Hg] Aggie Susan LEARNING ENGINEER-C Work Phone: [facility] 08-19-2024 09:13-0500 Heart rate 87 /min Aggie Davis LEARNING ENGINEER-C Work Phone: [facility] 08-19-2024 09:13-0500 Respiratory rate 20 /min Aggie Susan LEARNING ENGINEER-C Work Phone: [facility] 08-19-2024 09:13-0500 Systolic blood pressure 100 mm[Hg] Aggie Susan LEARNING ENGINEER-C Work Phone: [facility] 08-18-2024 10:31-0500 Body height 152.4 cm Mathieu Naqvi MD Work Phone: [facility] 08-18-2024 10:31-0500 Body mass index (BMI) [Ratio] 40.82 kg/m2 Mathieu Naqvi MD Work Phone: [facility] 08-18-2024 10:31-0500 Body weight 94.8 kg Mathieu Naqvi MD Work Phone: [facility] 07-07-2024 21:52-0500 Body temperature 97.88 [degF] Jamalylinn Dokken [facility] 07-07-2024 21:52-0500 Diastolic blood pressure 76 mm[Hg] Kaylinn Dokken [facility] 07-07-2024 21:52-0500 Heart rate 72 /min Kaylinn Dokken [facility] 07-07-2024 21:52-0500 Mean blood pressure 86 mm[Hg] Kaylinn Dokken [facility] 07-07-2024 21:52-0500 Respiratory rate 19 /min Kaylinn Dokken [facility] 07-07-2024 21:52-0500 SaO2% (BldA) [Mass fraction] 95 % Kaylinn Dokken [facility] 07-07-2024 21:52-0500 Systolic blood pressure 105 mm[Hg] Kaylinn Dokken [facility] 07-07-2024 20:57-0500 Diastolic blood pressure 77 mm[Hg] Kaylinn Dokken [facility] 07-07-2024 20:57-0500 Heart rate 61 /min Kaylinn Dokken [facility] 07-07-2024 20:57-0500 Mean blood pressure 102 mm[Hg] Kaylinn Dokken [facility] 07-07-2024 20:57-0500 Respiratory rate 18 /min Kaylinn Dokken [facility] 07-07-2024 20:57-0500 SaO2% (BldA) [Mass fraction] 96 % Kaylinn Dokken [facility] 07-07-2024 20:57-0500 Systolic blood pressure 153 mm[Hg] Kaylinn Dokken [facility] 07-07-2024 19:33-0500 Diastolic blood pressure 89 mm[Hg] Kaylinn Dokken [facility] 07-07-2024 19:33-0500 Heart rate 60 /min Kaylinn Dokken [facility] 07-07-2024 19:33-0500 Mean blood pressure 108 mm[Hg] Kaylinn Dokken [facility] 07-07-2024 19:33-0500 Respiratory rate 19 /min Kaylinn Dokken [facility] 07-07-2024 19:33-0500 SaO2% (BldA) [Mass fraction] 95 % Kaylinn Dokken [facility] 07-07-2024 19:33-0500 Systolic blood pressure 146 mm[Hg] Kaylinn Dokken [facility] 07-07-2024 19:20-0500 Body temperature 98.06 [degF] Kaylinn Dokken [facility] 07-07-2024 18:33-0500 Body temperature 98.24 [degF] Kaylinn Dokken [facility] 07-07-2024 18:33-0500 Heart rate 73 /min Kaylinn Dokken [facility] 07-07-2024 18:33-0500 Respiratory rate 18 /min Kaylinn Dokken [facility] 07-07-2024 18:19-0500 gluc 142 mg/dL Kaylinn Dokken [facility] 07-07-2024 18:18-0500 Heart rate 73 /min Kaylinn Dokken [facility] 07-07-2024 18:18-0500 Respiratory rate 18 /min Tiny Fallon [facility] 05-18-2024 10:53-0400 Body height 152.4 cm Da Biedenbach DO Work Phone: [facility] 05-18-2024 10:53-0400 Body mass index (BMI) [Ratio] 38.08 kg/m2 Da Biedenbach DO Work Phone: [facility] 05-18-2024 10:53-0400 Body weight 88.45 kg Da Biedenbach DO Work Phone: [facility] 04-13-2024 11:09-0400 Body height 152.4 cm Da Biedenbach DO Work Phone: [facility] 04-13-2024 11:09-0400 Body mass index (BMI) [Ratio] 38.08 kg/m2 Da Biedenbach DO Work Phone: [facility] 04-13-2024 11:09-0400 Body weight 88.45 kg Da Biedenbach DO Work Phone: [facility] 04-10-2024 09:25-0400 Body height 149.9 cm Da Biedenbach DO Work Phone: [facility] 04-10-2024 09:25-0400 Body mass index (BMI) [Ratio] 39.39 kg/m2 Da Biedenbach DO Work Phone: [facility] 04-10-2024 09:25-0400 Body weight 88.45 kg Da Biedenbach DO Work Phone: [facility] 03-26-2024 11:11-0400 Body height 152.4 cm Da Biedenbach DO Work Phone: [facility] 03-26-2024 11:11-0400 Body mass index (BMI) [Ratio] 38.08 kg/m2 Da Biedenbach DO Work Phone: [facility] 03-26-2024 11:11-0400 Body weight 88.45 kg Da Phillip DO Work Phone: [facility] 08-27-2023 15:38-0500 Body height 149.9 cm Brice Estrella DO Work Phone: [facility] 08-27-2023 15:38-0500 Body mass index (BMI) [Ratio] 39.59 kg/m2 Brice Estrella DO Work Phone: [facility] 08-27-2023 15:38-0500 Body temperature 97.39 [degF] Brice Estrella DO Work Phone: [facility] 08-27-2023 15:38-0500 Body weight 88.91 kg Brice Estrella DO Work Phone: [facility] 06-07-2023 08:27-0500 Heart rate 77 /min Brice Estrella [facility] 06-07-2023 08:27-0500 SaO2% (BldA) [Mass fraction] 98 % Brice Estrella [facility] 06-07-2023 08:26-0500 Respiratory rate 20 /min Brice Estrella [facility] 06-07-2023 08:26-0500 Blood Pressure Location Brice Estrella [facility] 06-07-2023 08:26-0500 Diastolic blood pressure 64 mm[Hg] Brice Estrella [facility] 06-07-2023 08:26-0500 Mean blood pressure 77 mm[Hg] Bricelaura Estrella [facility] 06-07-2023 08:26-0500 Systolic blood pressure 102 mm[Hg] Rbicelaura Estrella [facility] 06-07-2023 08:25-0500 Body temperature 97.88 [degF] Bricelaura Estrella [facility] 06-07-2023 08:05-0500 Blood Pressure Location Brice Estrella [facility] 06-07-2023 08:05-0500 Diastolic blood pressure 59 mm[Hg] Brice Estrella [facility] 06-07-2023 08:05-0500 Heart rate 73 /min Brice Estrella [facility] 06-07-2023 08:05-0500 Respiratory rate 20 /min Brice Estrella [facility] 06-07-2023 08:05-0500 SaO2% (BldA) [Mass fraction] 95 % Brice Estrella [facility] 06-07-2023 08:05-0500 Systolic blood pressure 114 mm[Hg] Brice Estrella [facility] 06-07-2023 07:30-0500 Blood Pressure Location Brice Estrella [facility] 06-07-2023 07:30-0500 Diastolic blood pressure 70 mm[Hg] Brice Estrella [facility] 06-07-2023 07:30-0500 Heart rate 70 /min Brice Estrella [facility] 06-07-2023 07:30-0500 Respiratory rate 20 /min Brice Estrella [facility] 06-07-2023 07:30-0500 SaO2% (BldA) [Mass fraction] 96 % Brice Estrella [facility] 06-07-2023 07:30-0500 Systolic blood pressure 114 mm[Hg] Brice Brown [facility] 06-07-2023 06:52-0500 Mean blood pressure 76 mm[Hg] Brice Estrella [facility] 06-07-2023 06:49-0500 Body temperature 97.88 [degF] Brice Estrella [facility] 06-07-2023 06:49-0500 Mean blood pressure 79 mm[Hg] Brice Estrella [facility] Encounters Encounter Date Encounter Type Care Provider Facility Start: 03-22-2025 End: 03-22-2025 ambulatory Carter Granger Facility:[facility] Start: 03-08-2025 End: 03-08-2025 ambulatory Kang R KARYN Facility:[facility] Start: 03-08-2025 End: 03-08-2025 Patient encounter procedure Kang R KARYN [facility] Start: 01-28-2025 End: 01-28-2025 ambulatory EHAB [facility] Start: 01-04-2025 End: 01-04-2025 ambulatory Aggie Davis LEARNING ENGINEER-C Work Phone: [facility] Work Phone: Start: 01-04-2025 End: 01-04-2025 Patient encounter procedure Aggie Davis LEARNING ENGINEER-C [facility] Work Phone: Start: 12-25-2024 End: 12-25-2024 Clinisync Result Encounter Brice Estrella DO Work Phone: [facility] Unsolicited Start: 12-25-2024 End: 12-25-2024 Clinisync Result Encounter Brice Estrella DO Work Phone: [facility] Unsolicited Start: 12-25-2024 End: 12-25-2024 Admission to same day surgery center Brice Estrella [facility] Start: 12-25-2024 End: 12-25-2024 ambulatory Brice Estrella Facility:[facility] Start: 12-22-2024 End: 12-22-2024 ambulatory Aggie Davis LEARNING ENGINEER-C Work Phone: [facility] Work Phone: Start: 12-22-2024 End: 12-22-2024 Departed Referred Aggie Davis LEARNING ENGINEER-C Work Phone: [facility] [place] [facility] Start: 12-08-2024 End: 12-08-2024 ambulatory Brice Estrella Facility:[facility] Start: 12-08-2024 End: 12-08-2024 Patient encounter procedure Brice Estrella [facility] Start: 11-26-2024 End: 11-26-2024 Bamboo flowsheet Brice [...] Start: 11-23-2024 End: 11-23-2024 ambulatory Aggie Davis LEARNING ENGINEER-C Work Phone: [facility] Work Phone: Start: 11-23-2024 End: 11-23-2024 Patient encounter procedure Aggie Davis LEARNING ENGINEER-C Work Phone: [facility]Count[facility] [address] [place] Work Phone: Start: 11-16-2024 End: 11-16-2024 Bamboo flowsheet Mathieu Naqvi MD Work Phone: [facility] Start: 11-16-2024 End: 11-16-2024 Bamboo flowsheet Mathieu Naqvi MD Work Phone: [facility] Start: 11-16-2024 End: 11-16-2024 ambulatory MATHIEU NAQVI Not Available Start: 11-16-2024 End: 11-16-2024 Office outpatient visit 25 minutes Mathieu Naqvi MD Work Phone: [facility] END[facility] Comment on above: Type [...] Start: 11-14-2024 End: 11-14-2024 ambulatory Aggie Davis LEARNING ENGINEER-C Work Phone: [facility] Work Phone: Start: 11-14-2024 End: 11-14-2024 Departed Referred Aggie Davis LEARNING ENGINEER-C Work Phone: [facility] [place] [facility] Start: 11-09-2024 End: 11-09-2024 Bamboo flowsheet Da Phillip DO Work Phone: [facility] Start: 11-09-2024 End: 11-09-2024 Bamboo flowsheet Da Phillip DO Work Phone: [facility] Start: 11-09-2024 End: 11-09-2024 ambulatory BRICE ESTRELLA Not Available Start: 11-09-2024 End: 11-09-2024 Office outpatient visit 25 minutes Da Phillip DO Work Phone: [facility] Comment on above: Nontoxic multinodula r goiter (CMS/HCC) (Primary Dx); Thyroid nodule (CMS/HCC) Start: 11-05-2024 End: 11-05-2024 Bamboo flowsheet Brice Niurka Delores DO Work Phone: [facility] Start: 11-05-2024 End: 11-05-2024 Bamboo flowsheet Brice A Delores DO Work Phone: [facility] Start: 11-05-2024 End: 11-05-2024 ambulatory BRICE Bah DELORES Not Available Start: 11-05-2024 End: 11-05-2024 Patient encounter procedure Brice A Delores DO Work Phone: [facility] Comment on above: Triceps tendonitis ( Primary Dx); Lateral epicondylitis of right elbow Start: 10-30-2024 End: 10-30-2024 ambulatory Aggie Davis LEARNING ENGINEER-C Work Phone: [facility] Work Phone: Start: 10-30-2024 End: 10-30-2024 Departed Referred Aggie Davis LEARNING ENGINEER-C Work Phone: [facility] [facility] Start: 10-13-2024 End: 10-13-2024 Patient encounter procedure Aggie Davis LEARNING ENGINEER-C Work Phone: [facility]-Lab [place] Work Phone: Start: 10-13-2024 End: 10-13-2024 ambulatory Aggie Davis LEARNING ENGINEER-C Work Phone: [facility] Work Phone: Start: 09-21-2024 End: 09-21-2024 ambulatory Aggie Davis LEARNING ENGINEER-C Work Phone: [facility] Work Phone: Start: 09-21-2024 End: 09-21-2024 Discharged Recurring Aggie Davis LEARNING ENGINEER-C Work Phone: [facility] [place] Work Phone: Start: 09-14-2024 End: 09-14-2024 ambulatory Aggie Davis LEARNING ENGINEER-C Work Phone: [facility] Work Phone: Start: 09-14-2024 End: 09-14-2024 Patient encounter procedure Aggie Davis LEARNING ENGINEER-C Work Phone: [facility] [address] Work Phone: Start: 09-07-2024 End: 09-07-2024 ambulatory Kang BOSS Facility: [place] Start: 09-07-2024 End: 09-07-2024 Patient encounter procedure Kang R KARYN [facility] [place] Start: 09-03-2024 End: 09-03-2024 Bamboo flowsheet [...] Start: 08-31-2024 End: 08-31-2024 ambulatory Aggie Davis LEARNING ENGINEER-C Work Phone: [facility] Work Phone: Start: 08-31-2024 End: 08-31-2024 Patient encounter procedure Aggie Davis LEARNING ENGINEER-C Work Phone: [facility] Work Phone: Start: 08-31-2024 End: 08-31-2024 Patient encounter procedure Brice Estrella DO Work Phone: [facility] Comment on above: Lateral epicondyliti s of right elbow (Primary Dx); Right elbow pain; Triceps tendonitis Start: 08-31-2024 End: 08-31-2024 ambulatory BRICE ESTRELLA Not Available Start: 08-24-2024 End: 08-24-2024 ambulatory OLMAN DE LA ROSA Not Available Start: 08-20-2024 End: 08-20-2024 ambulatory AB [facility] Start: 08-20-2024 End: 08-20-2024 Bamboo flowsheet [...] 08-19-2024 Registered Recurring Aggie BEEBEC Work Phone: [facility] [place] Work Phone: Start: 08-18-2024 End: 08-18-2024 Bamboo flowsheet Mathieu Naqvi MD Work Phone: [facility] Start: 08-18-2024 End: 08-18-2024 Bamboo flowsheet Mathieu Naqvi MD Work Phone: [facility] Start: 08-18-2024 End: 08-18-2024 Office outpatient new 45 minutes Mathieu Naqvi MD Work Phone: [facility] Comment on above: Type 2 diabetes [...] Arroyo Start: 08-14-2024 ambulatory Facility:[facility] Start: 07-22-2024 Non-patient / Non-visit Aggie CHICAS Work Phone: [facility] Work Phone: Start: 07-07-2024 End: 07-07-2024 Emergency department patient visit Tiny Fallon [facility] Start: 05-18-2024 End: 05-18-2024 ambulatory DA PHILLIP [...] [facility] Start: 04-13-2024 End: 04-13-2024 Departed Referred LEARNING ENGINEER-C Aggie Davis Work Phone: [facility] [place] Work Phone: Start: 04-13-2024 End: 04-13-2024 ambulatory LEARNING ENGINEER-C Aggie Davis Work Phone: [facility] Work Phone: Start: 04-13-2024 End: [...] Start: 03-26-2024 End: 03-26-2024 Patient encounter procedure LEARNING ENGINEER-C Aggie Davis Work Phone: [facility] [place] Work Phone: Start: 03-26-2024 End: 03-26-2024 ambulatory LEARNING ENGINEER-C Aggie Davis Work Phone: [facility] Work Phone: Start: 03-26-2024 End: 03-26-2024 Office outpatient new 45 minutes Da Phillip DO Work Phone: [facility] Comment on above: Thyroid nodule (CMS/ HCC) (Primary Dx); Nontoxic multinodular goiter (CMS/HCC); Thyroid dysfunction (CMS/HCC) Start: 03-26-2024 End: 03-26-2024 ambulatory DA PHILLIP Not Available Start: 02-14-2024 End: 02-14-2024 ambulatory LEARNING ENGINEER-C Aggie Davis Work Phone: [facility] Work Phone: Start: 02-14-2024 End: 02-14-2024 Departed Referred LEARNING ENGINEER-C Aggie Davis Work Phone: [facility] [place] [facility] Start: 01-25-2024 Non-patient / Non-visit LEARNING ENGINEER-C P renetta Davis [facility] Work Phone: Start: 12-31-2023 End: 12-31-2023 ambulatory BRICE ESTRELLA Not Available Start: 11-11-2023 End: 02-26-2024 ambulatory Brice Estrella Facility:[facility] Start: 2023 Chart abstracting Brice brantley DO Work Phone: [facility] Start: 08-27-2023 End: 08-27-2023 Patient encounter procedure Brice Estrella DO Work Phone: [facility] Comment on above: Left knee pain, unsp ecified chronicity (Primary Dx) Start: 08-22-2023 End: 08-22-2023 ambulatory LEARNING ENGINEER-C Aggie Isabel Susan Work Phone: [facility] Work Phone: Start: 08-22-2023 End: 08-22-2023 Discharged Recurring LEARNING ENGINEER-C Aggie Susan Work Phone: [facility]-[address] Start: 06-07-2023 End: 06-07-2023 Admission to same day surgery center Brice Estrella [facility] Start: 12-26-2022 ambulatory AGGIE SUSAN Facility: H1 [...] End: 11-09-2021 Patient encounter procedure Michele Jane [facility] Procedures Date Procedure Procedure Detail Performing Clinician Start: 12-25-2024 [facility] CAPILLARY GLUCOSE POC Brice Estrella DO Work Phone: Start: 12-25-2024 [facility] HGBA1C Brice michaels DO Work Phone: Start: 12-22-2024 Urine culture Aggie Cr amer LEARNING ENGINEER-C Work Phone: Start: 11-16-2024 Gluc bld gluc mntr d ev cleared fda spec home use Mathieu Naqvi MD Work Phone: Start: 11-14-2024 Urine culture Aggie Cr amer LEARNING ENGINEER-C Work Phone: Start: 10-30-2024 Urine culture Aggie Cr amer LEARNING ENGINEER-C Work Phone: Start: 10-13-2024 Urine culture Aggie Cr amer LEARNING ENGINEER-C Work Phone: Start: 09-14-2024 Plain X-ray of right tibia and right fibula Aggie Davis LEARNING ENGINEER-C Work Phone: Start: 09-14-2024 MRI of head Aggie guzmán LEARNING ENGINEER-C Work Phone: Start: 09-03-2024 End: 09-03-2024 Needle [...] Estrella Start: 09-30-2020 Arthroscopy of knee Ronen karon Jane Start: 05-09-2016 Right little finger release A-1 linda Michele Jane Cholecystectomy Michele Jane History of tonsillectomy Roenn karon Jane Hysterectomy Michele Rodriguezshadychiquita needle removed right foot Emilee reynaldo Mourany Operation on toenail Michele perez Release of trigger finger Emilee reynaldo Mourany right carpel tunnel Michele Ainsley dill right knee arthroscopy x2 Emilee reynaldo Saucedoy Plan of Treatment Date Care Activity Detail Author Start: 06-01-2025 Pneumococcal Vaccine: 65+ Years (3 - PPSV23 or PCV20) Pneumococcal Vaccine: 65+ Years (3 - PPSV23 or PCV20) [facility] Start: 06-01-2025 Pneumococcal Vaccine: 65+ Years (3 of 3 - PCV20 or PCV21) Pneumococcal Vaccine: 65+ Years (3 of 3 - PCV20 or PCV21) [facility] Start: 06-01-2025 Pneumococcal Vaccine: 65+ Years (3 of 3 - PPSV23 or PCV20) Pneumococcal Vaccine: 65+ Years (3 of 3 - PPSV23 or PCV20) [facility] Start: 05-31-2025 ambulatory Ambulatory Facility:[facility] Start: 05-17-2025 End: 05-17-2025 Patient encounter procedure 05/17/2025 10:15 AM EDT Office Visit [facility] [address] [place] [address] Da Phillip DO [address] [place] [address] [facility] Start: 03-29-2025 Influenza vaccination Influenza Vaccine (Season Ended) [facility] Start: 03-15-2025 End: 03-15-2025 Patient encounter procedure 03/15/2025 11:20 AM EDT Office Visit [facility] [address] [place] [address] Mathieu Naqvi MD [address] [place] [address] [facility] Start: 01-14-2025 End: 01-14-2025 Patient encounter procedure 01/14/2025 12:00 PM EDT Office Visit [facility] [place] [address] [facility] [address] [place] [address] Payton Goodwin, DO [address] [place] [address] [facility] Start: 01-05-2025 End: 01-05-2025 Patient encounter procedure 01/05/2025 9:15 AM EDT Office Visit [facility] [address] [place] [address] Brice Estrella, DO [address] [place] [address] [facility] Start: 01-04-2025 End: 01-04-2025 Patient encounter procedure 01/04/2025 1:15 PM EDT Office Visit [facility] [address] [facility] [address] [place] [phone] Olman De La Rosa, DO [address] [place] [address] [facility] Start: 12-22-2024 Bacteria identified in Urine by Culture Urine Culture [facility] Start: 12-22-2024 Urine culture [facility] Start: 11-26-2024 End: 11-26-2024 Patient encounter procedure 11/26/2024 1:15 PM EDT Office Visit [facility] [address] [place] [place] [id number] Brice Estrella, DO [address] [place] [address] [facility] Start: 11-16-2024 End: 11-16-2024 Patient encounter procedure 11/16/2024 10:50 AM EDT Office Visit [facility] [address] [place] [phone] Mathieu Naqvi MD [address] [place] [id number] [facility] Start: 11-14-2024 Bacteria identified in Urine by Culture Urine Culture [facility] Start: 11-14-2024 Urine culture [facility] Start: 11-09-2024 End: 11-09-2024 Professional / ancillary services management 11/09/2024 1:45 PM EDT Ancillary Procedure [facility] [address] [place] [phone] [facility] Start: 11-09-2024 End: 11-09-2024 Patient encounter procedure 11/09/2024 10:00 AM EDT Office Visit [facility] MARCELINO [facility] [address] [place] [phone] Da Phillip, DO [address] [place] [address] [facility] [place] Start: 11-02-2024 End: 11-02-2024 Patient encounter procedure 11/02/2024 10:30 AM EDT Office Visit [facility] [address] [place] [phone] Brice Estrella, DO [address] [place] [address] [facility] Start: 10-30-2024 Urine culture [facility] Start: 10-30-2024 Bacteria identified in Urine by Culture Urine Culture [facility] Start: 10-13-2024 Bacteria identified in Urine by Culture Urine Culture [facility] Start: 10-13-2024 Urine culture [facility] Start: 10-13-2024 Insulin C-peptide measurement [facility] Start: 09-28-2024 End: 09-28-2024 Patient encounter procedure 09/28/2024 1:15 PM EST Office Visit ST[facility] AR[facility]YO [address] [place] [address] Olman De La Rosa DO [address] [place] [address] [facility] Start: 09-10-2024 End: 09-10-2024 ambulatory 09/10/2024 1:00 PM EST Evaluation [facility] [address] [place] [phone] TravisSofya sands, OT [address] [place] [address] [facility] Start: 09-03-2024 End: 09-03-2024 Patient encounter procedure [facility] ARROYO Comment on above: Arrived Start: 09-03-2024 End: 09-03-2024 ambulatory 09/03/2024 12:30 PM EST Evaluation [facility] [address] [place] [phone] Travisshavon Sofya, OT [address] [address] [place] [address] [facility] Start: 08-31-2024 End: 08-31-2024 Patient encounter procedure [facility] Comment on above: Arrived Start: 08-24-2024 End: 08-24-2024 Clinical Support 08/24/2024 10:45 AM EST Clinical Support [facility] [address] [place] [address] ST[facility] Start: 08-20-2024 End: 08-20-2025 Creatinine [Mass/volume] in Serum or Plasma Creatinine, Serum Lab Routine Loss of consciousness (CMS/HCC) Expected: 08/20/2024 (Approximate), Expires: 08/20/2025 [facility] Comment on above: Expected: 08/20/2024 (Approximate), Expi res: 08/20/2025 Start: 08-20-2024 End: 08-20-2025 EEG, Including Recording Awake or Asleep EEG, Including Recording Awake or Asleep Neurology Routine Loss of consciousness ([facility]) Expected: 08/20/2024 (Approximate), Expires: 08/20/2025 [facility] Comment on above: Expected: 08/20/2024 (Approximate), Expi res: 08/20/2025 Start: 08-20-2024 End: 08-20-2025 EMG 2 Extremities EMG 2 Extremities Neurology Routine Bilateral hand numbness Expected: 08/20/2024, Expires: 08/20/2025 [facility] Work Phone: Comment on above: Expected: 08/20/2024, Expires: Start: 08-20-2024 End: 08-20-2025 MR Brain WO and W contrast IV MR brain w and wo contrast routine Imaging Routine Loss of consciousness ([facility]) Expected: 08/20/2024, Expires: 08/20/2025 [facility] Comment on above: Expected: 08/20/2024, Expires: Start: 08-20-2024 End: 08-20-2024 Patient encounter procedure 08/20/2024 9:00 AM EST Office Visit [facility] [place] [address] [address] [place] [address] Olman De La Rosa DO [address] [place] [address] [facility] Start: 08-18-2024 End: 08-18-2025 25-hydroxyvitamin D3 [Mass/volume] in Serum or Plasma Vitamin D 25 hydroxy Total Lab Routine Type 2 diabetes mellitus with hyperglycemia, with long-term current use of insulin ([facility]) Expected: 08/18/2024 (Approximate), Expires: 08/18/2025 [facility] Comment on above: Expected: 08/18/2024 (Approximate), Expi res: 08/18/2025 Start: 08-18-2024 End: 08-18-2025 C-peptide C-peptide Lab Routine Type 2 diabetes mellitus with hyperglycemia, with long-term current use of insulin ([facility]) Expected: 08/18/2024 (Approximate), Expires: 08/18/2025 [facility] Work Phone: Comment on above: Expected: 08/18/2024 (Approximate), Expi res: 08/18/2025 Start: 08-18-2024 End: 08-18-2025 Lipid 1996 panel - Serum or Plasma Lipid panel Lab Routine Type 2 diabetes mellitus with hyperglycemia, with long-term current use of insulin ([facility]) Expected: 08/18/2024 (Approximate), Expires: 08/18/2025 [facility] Comment on above: Expected: 08/18/2024 (Approximate), Expi res: 08/18/2025 Start: 08-18-2024 End: 08-18-2025 Microalbumin/Creatinine panel in random Urine Microalbumin / creatinine urine ratio Lab Routine Type 2 diabetes mellitus with hyperglycemia, with long-term current use of insulin ([facility]) Expected: 08/18/2024 (Approximate), Expires: 08/18/2025 [facility] Comment on above: Expected: 08/18/2024 (Approximate), Expi res: 08/18/2025 Start: 08-18-2024 End: 08-18-2025 Renal function panel Renal function panel Lab Routine Type 2 diabetes mellitus with hyperglycemia, with long-term current use of insulin ([facility]) Expected: 08/18/2024 (Approximate), Expires: 08/18/2025 [facility] Comment on above: Expected: 08/18/2024 (Approximate), Expi res: 08/18/2025 Start: 08-18-2024 End: 08-18-2024 Patient encounter procedure 08/18/2024 10:30 AM EST Office Visit [facility] [address] [place] [address] Mathieu Naqvi MD [address] [place] [address] Arrived [facility] Comment on above: Arrived Start: 07-27-2024 End: 07-27-2024 Patient encounter procedure 07/27/2024 1:00 PM EST Office Visit [facility] [address] [place] [address] Chana Iglesias, AUD [address] [place] [address] [facility] Start: 05-04-2024 End: 05-04-2024 Patient encounter procedure 05/04/2024 10:15 AM EDT Office Visit [facility] [place] [address] [place] [address] Da Phillip, DO [address] [place] [address] Arrived [facility]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 body mass index (BMI) of 39.0 to 39.9 in adult ([facility]) documented in this encounter [facility] HealthcareEvaluation note* Diagnosis Triceps tendonitis- Primary Other enthesopathy of elbow region documented in this encounter [facility] HealthcareHospital Discharge instructions No data available for this section [facility] No data available for this section [facility] for [facility] Narrative* Consultation (Routine) - Closed Specialty Diagnoses / Procedures Referred By Pérez norris Referred To Contact Neurology Diagnoses Tremor, unspecified Procedures DC OFFICE/OUTPATIENT [facility] Aggie Davis MD [address] [place] [address] Phone: tel:[phone] fax: Becky Calixto MD [address] [place] [address] Phone: tel: fax: Referral ID Status Reason Start Date Expiration Date V isits Requested Visits Authorized [id number] Closed Consult and Treat 07/01/2024 12/28/2024 1 [...] knee Brice Estrella, DO [address] [place] [address] Referral ID Status Reason Start Date Expiration Date Visits Re quested Visits Authorized [id number] Closed 08/27/2023 02/23/2024 1 1 Chief Complaint [...] section and content) DATE CREATED AUTHOR 03/11/2020 [facility] DATE CREATED AUTHOR AUTHOR'S ORGANIZ ATION 08/25/2022 [facility] DATE CREATED AUTHOR AUTHOR'S ORGANIZ ATION 01/04/2023 [facility] DATE CREATED AUTHOR AUTHOR'S ORGANIZ ATION 07/11/2024 [facility] DATE CREATED AUTHOR AUTHOR'S ORGANIZ ATION 08/17/2024 [facility] [facility] DATE CREATED AUTHOR AUTHOR'S ORGANIZ ATION 12/01/2024 [facility] DATE CREATED AUTHOR AUTHOR'S ORGANIZ ATION 12/26/[address] [facility] DATE CREATED AUTHOR AUTHOR'S ORGANIZ ATION 12/27/2024 [facility] [facility] DATE CREATED AUTHOR AUTHOR'S ORGANIZ ATION 02/04/2025 [facility] DATE CREATED AUTHOR AUTHOR'S ORGANIZ ATION 03/25/2025 [facility] DATE CREATED AUTHOR AUTHOR'S ORGANIZ ATION 03/26/2025 Filipe Driver [facility] Patient Care team informatio n (unrecognized section and content) Team Status: Active Member Role Status Dates Aggie Davis LEARNING ENGINEER-C Primary Care Provider Active Team Status: Inactive Member Role Status Dates Aggie Davis LEARNING ENGINEER-C Primary Care Provider Active Start: August 31, 2024 End: August 31, 2024 Dinah Sepulveda MD Attending Provider Active Start : August 31, 2024 End: August 31, 2024 Team Status: Inactive Member Role Status Dates Aggie Davis LEARNING ENGINEER-C Primary Care Provider Active Start: September 14, 2024 End: September 14, 2024 Olman De La Rosa DO Attending Provider Active Start: September 14, 2024 End: September 14, 2024 Team Status: Inactive Member Role Status Dates Aggie Davis LEARNING ENGINEER-C Primary Care Provider Active Start: September 14, 2024 End: September 14, 2024 Aretha Valadez APRN Attending Provider Active Start: September 14, 2024 End: September 14, 2024 Team Status: Inactive Member Role Status Dates Aretha Valadez APRN Attending Provider Active Start: September 21, 2024 End: September 21, 2024 Aggie Davis LEARNING ENGINEER-C Primary Care Provider Active Start: September 21, 2024 End: September 21, 2024 Team Status: Inactive Member Role Status Dates Aggie Davis LEARNING ENGINEER-C Primary Care Provider Active Start: October 13, [...] Inactive Member Role Status Dates Aggie Davis LEARNING ENGINEER-C Attending Provider Active Start: November 14, 2024 End: November 14, 2024 Team Status: Inactive Member Role Status Dates Dinah Sepulveda MD Attending Provider Active Start : November 23, 2024 End: November 23, 2024 Aggie Davis NP-C Primary Care Provider Active Start: November 23, [...] March 26, 2024 End: March 26, 2024 Mud Jack Operator Relationship Specialty Start Date End Date Unallocated, [facility] Provider [address] [place] [address] PCP - General 12/18/22 Mud Jack Operator Relationship Specialty Start Date End Date Unallocated, [facility] Provider [address] [place] [address] PCP - General 12/18/22 Team Status: Inactive Member Role Status Dates Aggie Davis NP-C Primary Care Provider Active Start: August 22, 2023 End: August 22, 2023 Brice Estrella DO Attending Provider Active Sta rt: August 22, 2023 End: August 22, 2023 Team Status: Inactive Member Role Status Dates Da Phillip DO Attending Provider Active S tart: April 13, 2024 End: April 13, 2024 Mud Jack Operator Relationship Specialty Start Date End Date Carter Granger MD [address] [place] [phone] PCP - General Family Medicine 04/10/24 Aggie Davis MD [address] [place] [address] Referring Physician Family Medicine 04/10/24 Da Phillip DO [address] [place] [address] Otolaryngology 04/10/24 Mud Jack Operator Relationship Specialty Start Date End Date Carter Granger MD [address] [place] [phone] PCP - General Family Medicine 04/10/24 Aggie Davis MD [address] [place] [address] Referring Physician Family Medicine 04/10/24 Da Phillip DO [address] [place] [address] Otolaryngology 04/10/24 Mud Jack Operator Relationship Specialty Start Date End Date Carter Granger MD [address] [place] [phone] PCP - General Family Medicine 04/10/24 Aggie Davis MD [address] [place] [address] Referring Physician Family Medicine 04/10/24 Da Phillip DO [address] [place] [address] Otolaryngology 04/10/24 Mud Jack Operator Relationship Specialty Start Date End Date Carter Granger MD [address] [place] [phone] PCP - General Family Medicine 04/10/24 Aggie Davis MD [address] [place] [address] Referring Physician Family Medicine 04/10/24 Da Phillip DO [address] [place] [address] Otolaryngology 04/10/24 Mud Jack Operator Relationship Specialty Start Date End Date Carter Granger MD [address] [place] [phone] PCP - General Family Medicine 04/10/24 Aggie Davis MD [address] [place] [phone] Referring Physician Family Medicine 04/10/24 Da Phillip, [address] [place] [address] Otolaryngology 04/10/24 Mud Jack Operator Relationship Specialty Start Date End Date Unallocated, [facility] MD Too [address] [place] [address] PCP - General 12/18/22 Mud Jack Operator Relationship Specialty Start Date End Date Unallocated, Sameer Gage MD [address] [place] [address] PCP - General 12/18/22 Mud Jack Operator Relationship Specialty Start Date End Date Carter Granger MD [address] [place] [phone] PCP - General Family Medicine 04/10/24 Aggie Davis MD [address] [place] [phone] Referring Physician Family Medicine 04/10/24 Da Phillip DO [address] [place] [address] Otolaryngology 04/10/24 Mud Jack Operator Relationship Specialty Start Date End Date Carter Granger MD [address] [place] [phone] PCP - General Family Medicine 04/10/24 Aggie Davis MD [address] [place] [phone] Referring Physician Family Medicine 04/10/24 Da Phillip DO [address] [place] [address] Otolaryngology 04/10/24 Mud Jack Operator Relationship Specialty Start Date End Date Carter Granger MD [address] [place] [phone] PCP - General Family Medicine 04/10/24 Aggie Davis MD [address] [place] [phone] Referring Physician Family Medicine 04/10/24 Da Phillip DO [address] [place] [address] Otolaryngology 04/10/24 Olman De La Rosa DO [address] [place] [phone] Referring Physician Neurology 08/20/24 Mud Jack Operator Relationship Specialty Start Date End Date Carter Granger MD [address] [place] [phone] PCP - General Family Medicine 04/10/24 Aggie Davis MD [address] [place] [address] Referring Physician Family Medicine 04/10/24 Da Phillip DO [address] [place] [address] Otolaryngology 04/10/24 Olman De La Rosa DO [address] [place] [phone] Referring Physician Neurology 08/20/24 Mud Jack Operator Relationship Specialty Start Date End Date Carter Granger MD [address] [place] [phone] PCP - General Family Medicine 04/10/24 Aggie Davis MD [address] [place] [phone] Referring Physician Family Medicine 04/10/24 Da Phillip DO [address] [place] [address] Otolaryngology 04/10/24 Olman De La Rosa DO [address] [place] [phone] Referring Physician Neurology 08/20/24 Team Status: Active Member Role Status Dates Aretha Valadez APRN Attending Provider Active Start: August 19, 2024 Aggie Davis NP-C Primary Care Provider Active Start: August 19, 2024 Mud Jack Operator Relationship Specialty Start Date End Date Carter Granger MD [address] [place] [phone] PCP - General Family Medicine 04/10/24 Aggie Davis MD [address] [place] [address] Referring Physician Family Medicine 04/10/24 Da Phillip DO [address] [place] [address] Otolaryngology 04/10/24 Olman De La Rosa DO [address] [place] [address] Referring Physician Neurology 08/20/24 Mud Jack Operator Relationship Specialty Start Date End Date Carter Granger MD [address] [place] [phone] PCP - General Family Medicine 04/10/24 Aggie Davis MD [address] [place] [address] Referring Physician Family Medicine 04/10/24 Da Phillip DO [address] [place] [address] Otolaryngology 04/10/24 Olman De La Rosa DO [address] [place] [phone] Referring Physician Neurology 08/20/24 Team Status: Active Member Role Status Dates AVIVA Dey Primary Care Provider Active Start: July 22, 2024 Imer Green DO Attending Provider Active Sta rt: July 22, 2024 Mud Jack Operator Relationship Specialty Start Date End Date Carter Granger MD [address] [place] [phone] PCP - General Family Medicine 04/10/24 Aggie Davis MD [address] [place] [address] Referring Physician Family Medicine 04/10/24 Da Phillip DO [address] [place] [address] Otolaryngology 04/10/24 Olman De La Rosa DO [address] [place] [phone] Referring Physician Neurology 08/20/24 Mud Jack Operator Relationship Specialty Start Date End Date Carter Granger MD [address] [place] [phone] PCP - General Family Medicine 04/10/24 Aggie Davis MD [address] [place] [phone] Referring Physician Family Medicine 04/10/24 Da Phillip DO [address] [place] [address] Otolaryngology 04/10/24 Olman De La Rosa DO [address] [place] [phone] Referring Physician Neurology 08/20/24 Mud Jack Operator Relationship Specialty Start Date End Date Carter Granger MD [address] [place] [phone] PCP - General Family Medicine 04/10/24 Aggie Davis MD [address] [place] [address] Referring Physician Family Medicine 04/10/24 Da Phillip DO [address] [place] [address] Otolaryngology 04/10/24 Olman De La Rosa DO [address] [place] [phone] Referring Physician Neurology 08/20/24 Mud Jack Operator Relationship Specialty Start Date End Date Carter Granger MD [address] [place] [phone] PCP - General Family Medicine 04/10/24 Aggie Davis MD [address] [place] [address] Referring Physician Family Medicine 04/10/24 Da Phillip DO [address] [place] [address] Otolaryngology 04/10/24 Olman De La Rosa DO [address] [place] [phone] Referring Physician Neurology 08/20/24 Mud Jack Operator Relationship Specialty Start Date End Date Carter Granger MD [address] [place] [phone] PCP - General Family Medicine 04/10/24 Aggie Davis MD [address] [place] [address] Referring Physician Family Medicine 04/10/24 Da Phillip DO [address] [place] [address] Otolaryngology 04/10/24 Olman De La Rosa DO [address] [place] [phone] Referring Physician Neurology 08/20/24 Mud Jack Operator Relationship Specialty Start Date End Date Carter Granger MD [address] [place] [phone] PCP - General Family Medicine 04/10/24 Aggie Davis MD [address] [place] [phone] Referring Physician Family Medicine 04/10/24 Da Phillip DO [address] [place] [address] Otolaryngology 04/10/24 Olman De La Rosa DO [address] [place] [phone] Referring Physician Neurology 08/20/24 Mud Jack Operator Relationship Specialty Start Date End Date Carter Granger MD [address] [place] [id number] PCP - General Family Medicine 04/10/24 Aggie Davis MD [address] [place] [address] [phone] Referring Physician Family Medicine 04/10/24 Da Phillip DO [address] [place] [address] Otolaryngology 04/10/24 Olman De La Rosa DO [address] [place] [id number] Referring Physician Neurology 08/20/24 Team Status: Inactive [...] BE BASED ON THE PRIMARY CLINICAL RECORDS. [facility] provides no warranty or guarantee of the accuracy or completeness of information in this document.
== END 2025-04-01 14:52 | disposition home or self-care (01) ==
LOC: MRI 14:51
PROVIDERS: PCP Nurse Practitioner Family
DX: M54.16 Radiculopathy, lumbar region (principal); M51.369 Other intervertebral disc degeneration, lumbar region without mention of lumbar back pain or lower extremity pain; M79.604 Pain in right leg; M48.062 Spinal stenosis, lumbar region with neurogenic claudication
CPT/HCPCS: 72148

== ENCOUNTER 2025-04-24 15:29 | Outpatient (OUT) | payer MEDICARE, SELFPAY ==
--- OUTSIDE RECORDS SUMMARY | 2025-04-14 06:30 | XMS_ITS ---
Author Organization [facility] [place] Address [address] [place] [address] Care Team Providers Care Leadership Program Internship Name Role Phone Aggie Machuca Primary Care Provider Allergies Allergen (clinical drug ingredient) Drug/Non Drug Allergy documented on EMR Reaction Allergy Type Onset Date Status Darvocet-N 50 Unknown Drug Allergy Act arina Vicodin Unknown Drug Allergy Active codeine Codeine Unknown Drug Allergy Active cefuroxime Cefuroxime itching Drug Allergy Activ e Penicillin Unknown Drug Allergy Active REASON FOR VISIT Presents to office alone for suture removal to left index finger #[address]. Placed 7 days ago by ER. Cut finger on a chainsaw Medications Medication SIG (Take, Route, Frequency, Duration) Notes Start Date End Date Status busPIRone HCl 7.5 MG TAKE 1 TABLET TWICE DAILY; Duration: 90 Active traMADol HCl 50 MG 1 tablet as needed Orally every 8 hrs; Duration: 7 days 04/14/2025 Active Aspirin 81 81 MG 1 tablet Orally Once a day Active Alendronate Sodium 70 MG TAKE 1 TABLET E VERY WEEK; Duration: 84 Active Albuterol Sulfate HFA 108 (9 0 Base) MCG/ACT 2 puff as needed Inhalation every 4 hrs; Duration: 30 days 12/11/2023 Active Advil Cold/Sinus 30-200 MG 1 tablet as n eeded Orally every 6 hrs PRN Active True Metrix Blood Glucose Te st - TEST BLOOD SUGAR THREE TIMES DAILY; Duration: 90 Active True Metrix Air Glucose Mete r w/Device USE DIRECTED; Duration: 90 Active TRUEplus Lancets 33G - TEST BLOOD SUGAR THREE TIMES DAILY; Duration: 90 Active True Metrix Level 1 Low USE DIRECTED WITH GLUCOSE METER; Duration: 90 Active Potassium Chloride Dipti ER 1 0 MEQ 1 tablet with food Orally Twice a day as needed with Lasix; Duration: 30 days 12/04/2024 Active Pen Cerrillos Active Pregabalin 100 MG 1 capsule Orally thr ee times daily; Duration: 30 days 03/05/2025 Active Simvastatin 40 MG TAKE 1 TABLET EVERY NIGHT; Duration: Active ReliOn Insulin Syringe 31G X 15/64 0.3 ML USE 1 ONCE DAILY DIRECTED; Duration: 30 Active Ozempic (1 MG/DOSE) 4 MG/3ML 1 mg Subcut aneous weekly; Duration: 30 days 01/18/2025 Active Omeprazole 40 MG TAKE 1 CAPSULE ONE TIME DAILY 30 MINUTES BEFORE MORNING MEAL.; Duration: Active Nitroglycerin 0.4 MG as directed Sublingual PRN Active NovoLIN R FlexPen 100 UNIT/ML sliding sc tobias Injection TID Active NovoLIN N 100 UNIT/ML 22 units Subcutane ous bid Active Meclizine HCl 25 MG 1 tablet as needed Orally every 12 hrs; Duration: 30 days PRN Active Cerrillos & Syringes - as directed Active Mupirocin 2 % 1 application Externally Twice a day; Duration: 5 days 02/09/2025 Active Mupirocin 2 % 1 application Externally Twice a day; Duration: 5 days Active Methocarbamol 500 MG TAKE 1 TABLET BY MO [facility] EVERY 8 HOURS NEEDED FOR MUSCLE SPASM Oral; Duration: 30 days Active hydroCHLOROthiazide 25 MG TAKE 1 TABLET EVERY MORNING; Duration: 90 Active Furosemide 20 MG TAKE 1 TABLET ONE TI ME DAILY NEEDED; Duration: 30 days Active Jardiance 25 MG TAKE 1 TABLET EVERY DAY; Duration: 90 Active FLUoxetine HCl 20 MG TAKE 1 CAPSULE EVER Y DAY; Duration: 90 Active Dexcom G7 Sensor Act arina Dexcom G7 Practical Nurse Clinical Coordinator A ctive Social History Tobacco Use: Social History Observation [...] ast year? No Points 0 Interpretation Negative Vital Signs Weight 195 lbs 04/14/2025 Height 60 in 04/14/2025 Blood pressure systolic 144 mm Hg 04/14/20 25 Blood pressure diastolic 82 mm Hg 025 BMI 38.08 kg/m2 04/14/2025 Encounters Encounter Location Date Provider Diagnosis [facility] [address] [place] [address] 04/14/2025 Aggie Machuca Low back pain with sciatica M54.40 and Suture check Z48.89 Assessments Encounter Date Diagnosis (ICD Code) Assessment Notes Treatment Notes Treatment Clinical Notes Section Notes 04/14/2025 Low back pain with sciatica (ICD-10 - M54.40) fu pain man OARRS reviewed 04/14/2025 Suture check (ICD-10 - Z48.89) return Saturday for removal Plan Of Treatment Medication Medication Name Sig Start Date Stop Date Notes traMADol HCl 50 MG 1 tablet as needed O rally every 8 hrs; Duration: 7 days 04/14/2025 Treatment Notes Assessment Notes Low back pain with sciatica fu pain man OARRS reviewed Suture check return Saturday for re moval Next Appt Details Follow Up: prn, Reason: Progress Notes * Virgen GRIFFIN SDOB :1955 (69 yo F)Acc No.[id number]:04/14/2025 Progress Note Patient: Virgen BUSTAMANTE Provider: Keke Machuca ([facility]), FUNERAL PRE NEED CONSULTANT :1955 A ge:69 Y S ex:Female Date:04/14/2025 Address:[address], [place], [id number] Check In:10:30 AM ESTCheck O ut:10:58 AM EST Subjective: * Chief Complaints: * 1 . Presents to office alone for suture removal to left index finger #[address] Placed 7 days ago by ER. Cut finger on a chainsaw. * HPI: G eneral: finger looks well will leave stitches in little longer back pain has been using tramadol she had at home that helps a little requesting short script , will see pain man soon. * ROS: G eneral/Constitutional: Fever d enies. [...] urination d enies. M usculoskeletal: Back pain l ow back with sciatica. N elizabeth pain d enies. M uscle aches d enies. S kin: Patient admits 6 sutures intact left index finger. R nicci d enies. S kin lesion(s) d enies. 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, un specified Modified On:12/06/2022 Status:confirmed R07.89 Other chest pain Modified On:12/06/2022U Status:confirmed R53.83 Fatigue Modified On:12/06/2022U Status:confirmed I10 Hypertension Modified On:04/15/2023U Status:confirmed F17.210 Cigarette smoker Modified On:12/06/2022U Status:confirmed I25.10 CAD (coronary artery disease) Modified On:12/06/2022U Status:confirmed M54.2 Neck pain Modified On:12/06/2022U Status:confirmed F32.9 Depression Modified On:12/06/2022 Status:confirmed G47.00 [...] obes ity due to excess calories Modified On:01/18/2025 Status:confirmed M54.40 Low back pain with s ciatica Modified On:03/04/2025 Status:confirmed M54.30 Sciatica Modified On:03/18/2025 Status:confirmed * Medical History: L eft leg [...] . * Hospitalization/Major Diagno stic Procedure: M [place] 11/20. * Family History: F ather: 89 [...] TAKE 1 TABLET TWICE DAILY , Taking Dexcom G7 Practical Nurse Clinical Coordinator , Taking Dexcom G7 Sensor , Taking [...] hrs , Notes to Pharmacist: PRN, Taking Methocarbamol 500 MG Tablet TAKE 1 TABLET BY MOUTH EVERY 8 HOURS NEEDED FOR MUSCLE SPASM Oral , Taking Mupirocin 2 % Ointment 1 application Externally Twice a day , Taking Mupirocin 2 % Ointment 1 application Externally Twice a day , Taking Cerrillos & Syringes - Miscellaneous as directed , Taking Nitroglycerin 0.4 MG Tablet Sublingual as directed Sublingual , Notes to Pharmacist: PRN, Taking NovoLIN N(Insulin NPH (Human) (Isophane)) 100 UNIT/ML Suspension 22 units Subcutaneous bid , Taking NovoLIN R FlexPen(Insulin Regular Human) 100 UNIT/ML Solution Pen-injector sliding scale Injection TID , Taking Omeprazole 40 MG Capsule Delayed Release TAKE 1 CAPSULE ONE TIME DAILY 30 MINUTES BEFORE MORNING MEAL. , Taking Ozempic (1 MG/DOSE)(Semaglutide (1 MG/DOSE)) 4 MG/3ML Solution Pen-injector 1 mg Subcutaneous weekly , Taking Pen Cerrillos , Taking Potassium Chloride Dipti ER 10 MEQ Tablet Extended Release 1 tablet with food Orally Twice a day as needed with Lasix , Taking Pregabalin 100 MG Capsule 1 capsule Orally three times daily , Taking ReliOn Insulin Syringe(Insulin Syringe-Needle U-100) [...] itching - Allergy. Objective: * Vitals: W t:195lbs, Ht: 60 in, BP:144/82mm Hg, BMI:38.08Index, Ht-cm: 152.4 cm, Wt-k.45 kg. * Examination: G eneral Examinations: GENERAL APPEARANCE: a lert and oriented, i n no acute distress. EYES: c onjunctiva normal, sclera non-icteric. NOSE: n ormal external appearance. LUNGS: c lear to auscultation bilaterally. CARDIO: r egular rate and rhythm, S1, S2 normal. ABDOMEN: s oft, nontender. MUSCULOSKELETAL: u sing cane decreased ROM due to back pain. SKIN: 6 sutures intact left index finger , no redness or drainage, well approx. Assessment: * Assessment: 1. L ow back pain with sciatica - M54.40 (Primary) 2 . S uture check - Z48.89 Plan: * Treatment: 2. S uture check Notes: return Saturday for removal * Preventive Medicine: Screenings/Counseling: B LA ACTION PLAN Above Normal BMI Follow-up D ietary management education, guidance, and counseling See treatment section of progress note for complete details of management plan. T OBACCO ACTION PLAN Patient counselled on the dangers of tobacco use and urged to quit. 0 04/14/2025 . F ALL RISK SCREENING Fall Risk Assessment: N o falls in the past year * Follow Up: p rn * * Electronically signed by Alma Machuca RODEO PERFORMER, EMERGENCY ROOM TECHNICIAN.FUNERAL PRE NEED CONSULTANT.[id number] on 04/15/2025 at 11:20 AM EDT Sign off status: Completed Visit Status: C HK (Check Out) true * Provider: Keke Machuca ([facility]), FUNERAL PRE NEED CONSULTANT Date: 0 04/14/2025 Generated for Maddy carmona/Darlene/Berylitting on: 0 04/24/2025 03:33 PM EDT History and Physical Notes * HPI (History of Present Illness) Category Sub-Category Detail Notes Category Not es General finger looks well will leave stitches in little longer back pain has been using tramadol she had at home that helps a little requesting short script , will see pain man soon Examination Category Sub-Category Detail Notes Category Not es General Examinations GENERAL APPEARANCE: alert a nd oriented, in no acute distress EYES: conjunctiva normal, sclera non-icteric EARS: NOSE: normal external appe arance THROAT: CARDIO: regular rate and rhy thm, S1, S2 normal LUNGS: clear to auscultatio n bilaterally ABDOMEN: soft, nontender SKIN: 6 sutures intact lef t index finger , no redness or drainage, well approx BACK: MUSCULOSKELETAL: using cane decreased ROM due to back pain LYMPH NODES:
--- OUTSIDE RECORDS SUMMARY | 2025-04-15 13:57 | XMS_ITS ---
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 History of hypertension Dyslipidemia Current smoker Asthma/COPD Plan: Would continue medical therapy for presumed coronary artery disease including aspirin, moderate intensity statin, and an TELMA inhibitor given her history of diabetes. She is also appropriately on an SGLT2 inhibitor in the form of Jardiance and the GLP-1 receptor agonist in the form of Ozempic. Number of meds were stopped due to hypotension; these can be resumed once acceptable. She is not having angina, she has had no recent myocardial infarction's, as such a beta-janes is not strictly indicated, and is better avoided particularly given her underlying [...] our dysautonomia clinic. Return to clinic in a year or sooner as needed Ponce Madden MD, MPH, [facility], [facility], [facility] Interventional Cardiology Pager Email: [email or web address] OFFICE VISIT Observed: 01/28/2025 1:30 PM Status: COMPLETED Source: [facility] [id number] Andreea Harris 1955 F Date Provider Department Center 01/28/2025 271-PONCE MADDEN MOMO [place] Family History Problem Relation Age of Onset Heart failure Mother Heart failure Father Heart failure Paternal Grandmother Family Status - Relation Status Age at Mother Father Paternal Grandmother Level of Service:65714 [place] OFFICE/OUTPATIENT ESTABLISHED LOW [facility] 20 MIN ORDERS ONLY Observed: 01/27/2025 12:00 AM Status: COMPLETED Source: [facility] [id number] Andreea Harris 1955 F Date Provider Department Center 01/27/2025 [id number], HISTORICAL CARD [place] Family History Problem Relation Age of Onset Heart failure Mother Heart failure Father Heart failure Paternal Grandmother Family Status - Relation Status Age at Mother Father Paternal Grandmother CAPILLARY GLUCOSE POC Collected: 2024 11:22 AM Status: F Source: [facility] TYPE CODE TESTS RESULT OUT OF RANGE REFERENCE UNITS LAB [id number](LOINC) Glucose Cap 217 High 55-99 mg/d L Result Comment: No Coverage Given Cleaned Meter Performed By: #### [id number] #### [facility] [address] [place] [address] HGBA1C Collected: 9:10 AM Status: F Source: [facility] TYPE CODE TESTS RESULT OUT OF RANGE REFERENCE UNITS LAB [id number](LOINC) Hgb A1C % 8.4 High <=5.9 % Performed By: #### [id number] #### [facility] [address] [place] [address] CAPILLARY GLUCOSE POC Collected: 2024 8:15 AM Status: F Source: [facility] TYPE CODE TESTS RESULT OUT OF RANGE REFERENCE UNITS LAB [id number](LOINC) Glucose Cap 330 High 55-99 mg/d L Result Comment: Cleaned Mete r Performed By: #### [id number] #### [facility] [address] [place] [address] PROGRESS NOTE-PHYSICIAN Observed: 2024 7:46 AM Status: F Source: [facility] Progress Note-Physician Patient: VIRGEN GONZALES Age: 69 years Sex: Female : 1955 Associated Diagnoses: None Author: Segundo WRAY, Jean Carlos Petersen Preoperative Information Anesthesia Preop Info: Time patient [...] mL, IV, 150 mL/hr, Routine, Start date 12/25/24 7:30:00 EDT, 6.7 hour(s), Total volume (mL): 1,000, 89.6 kg, 1.94, m2 clindamycin additive + Premix Dextrose 5% Diluent 50 mL: 900 mg = 50 mL, Soln- IV, IV Piggyback, PREOP, Routine, Start date 12/25/24 7:30:00 EDT, 100 mL/hr, Infuse over 30 minute(s) tranexamic acid additive + premix generic diluent 100 mL: 1,000 mg = 100 mL, Soln-IV, IV Piggyback, PREOP, Routine, Start date 12/25/24 7:30:00 EDT, 200 [...] See Instructions Potassium Chloride (Eqv-K-Tab) 10 mEq oral tablet, extended release 10 mEq = 1 tab(s), Oral, BID pregabalin 75 mg Cap 75 mg = 1 cap(s), Oral, BID simvastatin 40 mg Tab 40 mg = 1 tab(s), Oral, Once a day (at bedtime) Vitamin D2 , qWeek , Medications (3) Active Scheduled: (2) clindamycin 900 mg/50 mL-D5W + Dextrose 5% Premix Diluent 50 mL 900 mg 50 mL, IV Piggyback, PREOP tranexamic acid + Generic Diluent 100 mL 1,000 mg 100 mL, IV Piggyback, PREOP Continuous: (1) Sodium Chloride 0.9% 1,000 mL 1,000 mL, IV, 150 mL/hr PRN: (0) Problem list: All Problems Asthma / SNOMED CT 514140436 / Confirmed Bilateral renal cysts / SNOMED CT 4033367765 / Confirmed BMI 31.0-31.9,adult / SNOMED CT 397519843 / Confirmed Chronic back pain / SNOMED CT 889943913 / Confirmed CKD (chronic kidney disease) / SNOMED CT 0681949513 / Confirmed Diabetes / SNOMED CT 304702755 / Confirmed Diabetes mellitus, type 2 / SNOMED CT 252630636 / Confirmed H/O hypercholesterolemia / SNOMED CT 3275373625 / Confirmed Hyperlipidemia / SNOMED CT 35960614 / Confirmed Lipoma of back / SNOMED CT 065520747 / Confirmed MMT (medial meniscus tear) / SNOMED CT 370257320 / Confirmed Renal lesion / SNOMED CT 1859724476 / Confirmed Smoker / IMO 803894 / Confirmed Added secondary to documentation in Social History. Resolved: Breast lump / SNOMED CT 782855133 Resolved: Cigarette smoker / SNOMED CT 232491233 Resolved: Fatigue / SNOMED CT 450819907 Resolved: History of heart attack / SNOMED CT 2984772765 pt states no damage done per dr. Resolved: Hypertension / SNOMED CT 8513232570 Resolved: Insomnia / SNOMED CT 705752961 Resolved: Lipoma of back / SNOMED CT 130362729 Resolved: [place] - myocardial infarction / SNOMED CT 1862794103 Resolved: Osteoporosis / SNOMED CT 060400623 Resolved: Pharyngitis / SNOMED CT 3754853935 Canceled: Kidney stones / SNOMED CT 908837242 Canceled: Sinus drainage / SNOMED CT 988123010, Active Problems (13) Asthma Bilateral renal cysts BMI 31.0-31.9,adult Chronic back pain CKD (chronic kidney disease) Diabetes Diabetes mellitus, type 2 H/O hypercholesterolemia Hyperlipidemia Lipoma of back MMT (medial meniscus tear) Renal lesion Smoker Histories Past Medical History: Resolved [place] - myocardial infarction (4478013993): Resolved. Pharyngitis (8546963591): Resolved. Osteoporosis (155038323): Resolved. Fatigue (173790425): Resolved. Cigarette smoker (632193859): Resolved. Breast lump (909327022): Resolved. Insomnia (149294831): Resolved. Lipoma of back (943547622): Resolved. Family History: Kidney stone Mother Asthma Father Hypertension Mother Heart disease Mother Father Diabetes mellitus type 2 Father COPD Father Arthritis Father Mother Migraine Mother Seizure Mother High cholesterol Mother Procedure history: left carpal tunnel release, left trigger thumb release, left ring finger trigger release ([id number]) on 06/07/2023 at 67 Years. Arthroscopy of knee (227656193) on 09/30/2020 at 65 Years. Right little finger release A-1 linda on 05/09/2016 at 60 Years. History of tonsillectomy (2992684021). right knee arthroscopy x2. right carpel tunnel. hysterectomy. needle removed right foot. Cholecystectomy (84863796). Operation on toenail x3 (056276783). Release of trigger finger x3 (351611609). Social History Social & Psychosocial Habits Alcohol 12/08/2024 Risk Assessment: Denies Alcohol Use Substance Abuse 12/08/2024 Risk Assessment: Denies Substance Abuse Tobacco 12/08/2024 Risk Assessment: Medium Risk 12/08/2024 Tobacco Use: 10 or more cigarettes (1/ Smokeless tobacco use: Never Type: Cigarettes Comment: 05/30 pkg daily - 05/02/2016 10:35 - Kareen Gilmore RN 12/08/2024 Tobacco Use: 10 or more cigarettes (1/ Type: Cigarettes . Physical Examination No qualifying data available Airway: Mallampati classification: II (soft palate, fauces, uvula visible). Respiratory: Respirations are non-labored, adequate air exchange. Cardiovascular: Regular rhythm, no JVD or edema. Review / Management Results review: No qualifying data available . Plan [place] [employer] Anesthesiologists (ASA) physical status classification: Class III. Anesthetic Preoperative Plan: Anesthesia General. Regional supraclavicular BPB. Result Comment: Electronical ly Signed By: Segundo WRAY, Jean Carlos Petersen\.br\Date and Time Signed: 12/25/24 09:14 EDT HISTORY AND PHYSICAL Observed: 7:13 AM Status: F Source: [facility] History and Physical Patient: VIRGEN GONZALES Age: 69 years Sex: Female : 1955 Associated Diagnoses: None Author: Brice Oliva DO Basic Information H&P Reviewed. Patient seen and examined, appropriate for planned surgery. Health Status Procedure history: left carpal tunnel release, left trigger thumb release, left ring finger trigger release (928941284) on 06/07/2023 at 67 Years. Arthroscopy of knee (345393597) on 09/30/2020 at 65 Years. Right little finger release A-1 linda on 05/09/2016 at 60 Years. History of tonsillectomy (4817961256). right knee arthroscopy x2. right carpel tunnel. hysterectomy. needle removed right foot. Cholecystectomy (80637684). Operation on toenail x3 (573246311). Release of trigger finger x3 (838445331). Social History Social & Psychosocial Habits Alcohol [...] mL, IV, 150 mL/hr, Routine, Start date 12/25/24 7:30:00 EDT, 6.7 hour(s), Total volume (mL): 1,000, 89.6 kg, 1.94, m2 clindamycin additive + Premix Dextrose 5% Diluent 50 mL: 900 mg = 50 mL, Soln- IV, IV Piggyback, PREOP, Routine, Start date 12/25/24 7:30:00 EDT, 100 mL/hr, Infuse over 30 minute(s) tranexamic acid additive + premix generic diluent 100 mL: 1,000 mg = 100 mL, Soln-IV, IV Piggyback, PREOP, Routine, Start date 12/25/24 7:30:00 EDT, 200 [...] See Instructions Potassium Chloride (Eqv-K-Tab) 10 mEq oral tablet, extended release 10 mEq = 1 tab(s), Oral, BID pregabalin 75 mg Cap 75 mg = 1 cap(s), Oral, BID simvastatin 40 mg Tab 40 mg = 1 tab(s), Oral, Once a day (at bedtime) Vitamin D2 , qWeek Problem list: All Problems Diabetes / SNOMED CT 993355217 / Confirmed Asthma / SNOMED CT 225905835 / Confirmed H/O hypercholesterolemia / SNOMED CT 5978469351 / Confirmed MMT (medial meniscus tear) / SNOMED CT 635554376 / Confirmed Smoker / IMO 590186 / Confirmed Added secondary to documentation in Social History. BMI 31.0-31.9,adult / SNOMED CT 923029956 / Confirmed Diabetes mellitus, type 2 / SNOMED CT 250322376 / Confirmed Hyperlipidemia / SNOMED CT 16218526 / Confirmed Chronic back pain / SNOMED CT 314702639 / Confirmed Lipoma of back / SNOMED CT 381445642 / Confirmed Renal lesion / SNOMED CT 2697631822 / Confirmed Bilateral renal cysts / SNOMED CT 9158449459 / Confirmed CKD (chronic kidney disease) / SNOMED CT 5362568785 / Confirmed Resolved: Hypertension / SNOMED CT 8166112080 Resolved: History of heart attack / SNOMED CT 4333016053 pt states no damage done per dr. Resolved: [place] - myocardial infarction / SNOMED CT 5444711767 Resolved: Pharyngitis / SNOMED CT 6593624139 Resolved: Osteoporosis / SNOMED CT 485322408 Resolved: Fatigue / SNOMED CT 899532087 Resolved: Cigarette smoker / SNOMED CT 835944986 Resolved: Breast lump / SNOMED CT 121820592 Resolved: Insomnia / SNOMED CT 028469273 Resolved: Lipoma of back / SNOMED CT 584837866 Canceled: Kidney stones / SNOMED CT 208631004 Canceled: Sinus drainage / SNOMED CT 807462634 Result Comment: Electronical ly Signed By: Brice Oliva DO\Date and Time Signed: 12/25/24 07:13 EDT URINE CULTURE Observed: 12/22/2024 12:14 PM Status: F Source: [facility] 15,000 colonies/ml mixed bacterial skin contaminants 2 Days PERFORMED BY: [place] [address] PATHOLOGIST CORRECTIONAL CASEWORK SPECIALIST LI GARZON M.D. Performed By: #### CUU #### [facility] [address] [place], [place] [address] [facility] URINE CULTURE Observed: 11/14/2024 10:15 AM Status: F Source: [facility] >100,000 colonies/ml mixed bacterial skin contaminants 2 Days PERFORMED BY: [place] [address] PATHOLOGIST CORRECTIONAL CASEWORK SPECIALIST CURTIS CASAS M.D. Performed By: #### CUU #### [facility] [address] [place], [place] [address] [facility] MR ELBOW RIGHT WO IV CONTRAST Observed: 11/09/2024 1:45 PM Status: F Source: [facility] Order Comment: Surgery eye a nd eyelids 2021 EXAM: MR ELBOW RIGHT WO IV C ONTRAST HISTORY: Triceps tendinosis. TECHNIQUE: Multiplanar multisequence MRI [...] tendinosis. ELECTRONICALLY SIGNED BY: Drew Looney DO URINE CULTURE Observed: 10/30/2024 9:48 PM Status: F Source: [facility] <9,000 colonies/ml mixed bacterial skin contaminants 2 Days PERFORMED BY: [address] [address] PATHOLOGIST CORRECTIONAL CASEWORK SPECIALIST CURTIS CASAS M.D. Performed By: #### CUU #### [facility] [address] [place] [address] [place] DIPSTICK AND MICROSCOPIC Collected: 12:26 PM Status: F Source: [facility] Order Comment: Name Collecti on Type:: Clean-Voided Midstream TYPE CODE TESTS RESULT OUT OF RANGE REFERENCE UNITS LAB UCOL Color,Urine Light-Yellow Yellow LAB UAPP Appearance,Uri ne Cloudy Abnormal Alert Clear LAB USG Specificy Spelter,Urine 1.013 Normal 1.001-1.030 LAB UPH pH,Urine 6.5 Normal 5.0-9.0 LAB ULE Leukocyte Esterase,Urine 3+ High Negative LAB UNIT Nitrite,Urine Negative Negative LAB UPRO Protein,Urine Negative Negative LAB UGL Glucose,Urine (UA) 1000 High Normal mg/dL LAB UKET Ketones,Urine Negative Negative LAB UURO Urobilinogen,U rine Normal Normal LAB UBIL Bilirubin,Urin e Negative Negative LAB UBLD Occult Blood,Urine Negative Negative LAB URBC RBC,Urine 1-2 0-4 [HPF] LAB UWBC WBC,Urine 20-49 High 0-4 [HPF] LAB USQEPI Squamous Epithelial Cell,Urine 10-19 High 0-2 [HPF] LAB UBACT Bacteria,Urine None Seen None Seen LAB UHYALC Hyaline Casts,Urine None 0-8 LAB MUCUS Mucus,Urine Rare Result Comment: PERFORMED BY : [address] [address] PATHOLOGIST CORRECTIONAL CASEWORK SPECIALIST CURTIS CASAS M.D. Performed By: #### SEAN US, CUU, PROCRERAT #### [facility] [address] [place] [address] [place] PROTEIN CREAT RATIO UR RANDOM Collected : 10/13/2024 12:26 PM Status: F Source: [facility] TYPE CODE TESTS RESULT OUT OF RANGE REFERENCE UNITS LAB UCREA Creatinine, Urine (Random) 76.00 mg/dL Result Comment: No reference range established LAB UTPTT Protein, Urine (Random) 17 High 0-9 mg/dL LAB UTPCREAT Urine Protein/Crea tinine Ratio 224 High 0-200 mg/g{Cre} Result Comment: PERFORMED BY : [place] [address] PATHOLOGIST CORRECTIONAL CASEWORK SPECIALIST CURTIS CASAS M.D. Performed By: #### PATRICE VICKERSU, PROCRERAT #### [address] [address] [facility] URINE CULTURE Observed: 10/13/2024 12:26 PM Status: F Source: [facility] >100,000 colonies/ml mixed bacterial skin contaminants 2 Days PERFORMED BY: [place] [address] PATHOLOGIST CORRECTIONAL CASEWORK SPECIALIST CURTIS CASAS M.D. Performed By: #### SEAN PALM, PATRICEU, PROCRERAT #### [place] [id number] [facility] MICROALB CREAT RATIO,U Collected: 10/13 12:26 PM Status: F Source: [facility] TYPE CODE TESTS RESULT OUT OF RANGE REFERENCE UNITS LAB UMAT Microalbumin , Urine 0.7 Normal 0.0-1.8 mg/dL LAB UCREA Creatinine, Urine (Random) 76.00 mg/dL Result Comment: No reference range established LAB MACREATRATIO Microalbumin /Creatinine Ratio 9.2 Normal 0.0-30.0 mg/g Result Comment: 30-300 mg/g indicates an increased risk for diabetic nephropathy. Greater than 300 mg/g is consistent with clinical nephropathy. (Am. J. Kidney Disease 1995, 25:107) PERFORMED BY: [place] [address] PATHOLOGIST CORRECTIONAL CASEWORK SPECIALIST CURTIS CASAS M.D. Performed By: #### ZEB T #### [place] [id number] [facility] HEPATIC PANEL Collected: 10/13/2024 12:25 PM Status: F Source: [facility] TYPE CODE TESTS RESULT OUT OF RANGE REFERENCE UNITS LAB TP Total Protein 6.4 Normal 6.4-8.9 g/dL LAB ALB Albumin Level 3.8 Normal 3.5-5.7 g/dL LAB GLOB Globulin 2.6 g/dL LAB AGRATIO Albumin/Globulin Ratio 1.5 LAB BILIT Bilirubin,Total 0.4 Normal 0.3-1.0 mg/dL LAB BILID Bilirubin,Direct 0.10 Normal 0.03-0.18 mg/dL LAB BILII Bilirubin,Indirect 0.3 mg/dL LAB AST Aspartate Amino Transferase 14 Normal 13-39 U/L LAB ALT Alanine Aminotransferase 11 Normal 7-52 U/L LAB ALP Alkaline Phosphatase 99 Normal 34-104 U/L Result Comment: PERFORMED BY : [place] [address] PATHOLOGIST CORRECTIONAL CASEWORK SPECIALIST CURTIS CASAS M.D. Performed By: #### HEPATIC # ### [address] LIPID PANEL Collected: 10/13/2024 12:24 PM Status: F Source: [facility] TYPE CODE TESTS RESULT OUT OF RANGE REFERENCE UNITS LAB CHOL Cholesterol 95 Low 140-200 mg/dL Result Comment: Chol less th an 200 mg/dl low risk Chol 201-239 mg/dl borderline risk Chol 240 mg/dl and greater high risk LAB HDL HDL Cholesterol 28 Normal 23-92 mg/dL Result Comment: HDL CHOL ATP -III CLASSIFICATION Cardiovascular Risk HDL > or equal to 60 mg/dL LOW HDL < 40 mg/dL HIGH LAB TRIG W REF Triglyceride w/Reflex 97 Normal 0-149 mg/dL Result Comment: TRIG ATP III CLASSIFICATION TRIG less than 150 mg/dL Normal TRIG 150-199 mg/dL Borderline high TRIG 200-500 mg/dL High TRIG greater than 500 mg/dL Very high Standard traceable to the Center for Disease Conrtrol and Prevention (CDC) test method. LAB LDLC LDL Cholesterol,Calc ulated 48 Normal 0-100 mg/dL Result Comment: LDL ATP III CLASSIFICATION LDL less than 100 mg/dL Optimal LDL 100-129 mg/dL Near or above optimal LDL 130-159 mg/dL Borderline high LDL 160-189 mg/dL High LDL greater than 189 mg/dL Very high LAB VLDL VLDL CHOLESTEROL 19 mg/dL LAB CHLHDL Chol/HDL Ratio 3.4 <5.0 Result Comment: PERFORMED BY : [place] [address] PATHOLOGIST CORRECTIONAL CASEWORK SPECIALIST CURTIS CASAS M.D. Performed By: #### LIPID ### # [address] #### CPEP #### [facility] , C-PEPTIDE Collected: 5 12:24 PM Status: F Source: [facility] TYPE CODE TESTS RESULT OUT OF RANGE REFERENCE UNITS LAB CPEP C-Peptide 1.4 1.1-4.4 ng/mL Result Comment: C-Peptide r eference interval is for fasting patients. Performed at: [facility] [place] [id number] [facility] Rn: Kilo Masterson PhD, Phone: [phone] PERFORMED BY: [place] [address] PATHOLOGIST CORRECTIONAL CASEWORK SPECIALIST CURTIS CASAS M.D. Performed By: #### LIPID ### # [address] #### CPEP #### [facility] , RENAL FUNCTION PANEL Collected: 12:24 PM Status: F Source: [facility] TYPE CODE TESTS RESULT OUT OF RANGE REFERENCE UNITS LAB GLU Glucose 108 High 70-100 mg/dL Result Comment: Random Gluco se Reference Range is dependent on time and content of last meal. Glucose of more than 200 mg/dL in a nonstressed, ambulatory subject supports the diagnosis of Diabetes Mellitus. ADA recommended reference range LAB BUN Blood Urea Nitrogen 24 Normal 7-25 mg/dL LAB CREATT Creatinine 1.59 High 0.60-1.20 mg/dL LAB GFReNR Estimated GFR 34.741 mL/Min LAB NA Sodium 141 Normal 136-145 mmol/L LAB K Potassium 3.9 Normal 3.5-5.1 mmol/L LAB CL Chloride 106 Normal 98-107 mmol/L LAB CO2 Carbon Dioxide 27.1 Normal 21.0-31.0 mmol/L LAB GAP Anion Gap 11.8 Normal 6.0-15.0 meq/L LAB CA Calcium 8.8 Normal 8.6-10.3 mg/dL LAB PHOS Phosphorus 3.4 Normal 2.5-4.5 mg/dL LAB ALB Albumin Level 3.8 Normal 3.5-5.7 g/dL Performed By: #### [id number], RENAL #### [facility] [address] [place] [address] [facility] VITAMIN D 25 HYDROXY TOTAL Collected: 0 10/13/2024 12:24 PM Status: F Source: [facility] TYPE CODE TESTS RESULT OUT OF RANGE REFERENCE UNITS LAB [id number] Vitamin D 25 Hydroxy Total 15.0 Low 30-100 ng/mL Result Comment: VITAMIN D ST ATUS 25(OH)VITAMIN D RANGE (ng/mL) Deficient <20 Insufficient 20 to <30 Sufficient 30 to 100 Reference: Sima MF,Luann NC, Merline FERRER, et al. Evaluation,treatment, and prevention of vitamin D deficiency; an Endocrine Society clinical practice guideline. JCEM. 2010; 96(7):1911-30. PERFORMED BY: [address] [address] PATHOLOGIST CORRECTIONAL CASEWORK SPECIALIST CURTIS CASAS M.D. Performed By: #### [id number], RENAL #### [address] [address] [facility] HEMOGRAM CBC WITHOUT DIFF Collected: 10/13/2024 12:22 PM Status: F Source: [facility] TYPE CODE TESTS RESULT OUT OF RANGE REFERENCE UNITS LAB WBC White Blood Count 8.4 Normal 3.8-11.6 10*3/uL LAB RBC Red Blood Count 4.33 Normal 3.60-5.00 10*6/u L LAB HGB Hemoglobin 12.7 Normal 11.8-15.4 g/dL LAB HCT Hematocrit 37.7 Normal 34.0-46.4 % LAB MCV Mean Corpuscular Volume 87.1 Normal 80-100 fL LAB MCH Mean Corpuscular Hemoglobin 29.3 Normal 24.7-34.3 pg LAB MCHC Mean Corpuscular HGB Conc 33.6 Normal 32.0-35.0 g/dL LAB RDW Red Cell Distribution Width 15.3 Normal 11.9-15.3 % LAB PLT Platelet Count 192 Normal 150-450 10*3/uL LAB MPV Mean Platelet Volume 9.9 Normal 6.3-10.7 fL Result Comment: PERFORMED BY : [place] [address] PATHOLOGIST CORRECTIONAL CASEWORK SPECIALIST CURTIS CASAS M.D. Performed By: #### URIC, MG, PTH, CBCNO #### [facility] [address] [place], [place] [id number] [facility] MAGNESIUM Collected: 12:22 PM Status: F Source: [facility] TYPE CODE TESTS RESULT OUT OF RANGE REFERENCE UNITS LAB MG Magnesium 2.1 Normal 1.9-2.7 mg/dL Performed By: #### URIC, MG, PTH, CBCNO #### [place] [id number] [facility] URIC ACID Collected: 12:22 PM Status: F Source: [facility] TYPE CODE TESTS RESULT OUT OF RANGE REFERENCE UNITS LAB URIC Uric Acid 7.7 High 2.3-6.6 mg/dL Result Comment: PERFORMED BY : [place] [address] PATHOLOGIST CORRECTIONAL CASEWORK SPECIALIST CURTIS CASAS M.D. Performed By: #### URIC, MG, PTH, CBCNO #### [place] [id number] [facility] PARATHYROID HORMONE INTACT Collected: 10/13/2024 12:2 2 PM Status: F Source: [facility] TYPE CODE TESTS RESULT OUT OF RANGE REFERENCE UNITS LAB PTH Parathyroid Hormone Intact 224.1 High 12-88 pg/mL Result Comment: PERFORMED BY : [place] [address] PATHOLOGIST CORRECTIONAL CASEWORK SPECIALIST CURTIS CASAS M.D. Performed By: #### URIC, MG, PTH, CBCNO #### [place] [id number] [place] XR TIBIA FIBULA RT 2V* Observed: 025 8:35 PM Status: COMPLETED Source: [facility] [place] [address] XRay Report Signed Patient: Virgen Gonzales MR# : [id number] : 1955 Acct:[id number] Age/Sex: 69 / F ADM Date: 09/14/24 Loc: ICXD Room: Type: [facility] Attending Dr: Aretha Valadez APRN Copies [...] Jose Horn M.D.09/14/2024 8:40 PM Dictation Location: [place] [address] Transcribed By: [facility] 09/14/242039 Dictated By: Jose Horn DO 09/14/242034 Signed By: <Electronically signed by Jose Horn DO in OV> 09/14/242039 MR HEAD/BRAIN WO/W CON Observed: 025 5:14 PM Status: COMPLETED Source: [facility] [place] [address] MRI Report Signed Patient: Virgen Gonzales MR# : [id number] : 1955 Acct:[id number] Age/Sex: 69 / F ADM Date: 09/14/24 Loc: ICMR Room: Type: [facility] Attending Dr: Olman De La Rosa [...] Jacinto Gallagher M.D.09/14/2024 5:21 PM Dictation Location: [place] [address] Transcribed By: [facility] 09/14/241720 Dictated By: Jacinto Gallagher II, MD 09/14/241713 Signed By: <Electronically signed by Jacinto Gallagher II, MD in OV> 09/14/241720 REMINDERS Observed: 09/07/2024 10:39 AM Status: C Source: [facility] Reminders From: Yajaira Lopez To: EU - Recalls Alvarez; Sent: 09/07/2024 10:39:37 EST Show up: 01/26/2025 10:39:00 EDT Subject: renal US Due Date/Time: 02/22/2025 10:39:00 EDT Reminder/Recall Pt needs sched for renal US prior to 03/08/25 She needs a Sat/ at [facility] Order placed at [facility]. Will monitor for results. Pt rescheduled her f/u with renal US for 05/2025. A new order has been sent to [facility] for the TOMEKA. Pt is aware and will schedule. AMBULATORY VISIT SUMMARY Observed: 09/07 10:38 AM Status: F Source: [facility] Ambulatory Visit Summary VIRGEN GONZALES :1955 Visit [...] Appointments Saturday 11:30 AM EDT With: Kang ALVAREZ MD Where: [facility] [address] [place] [address]- You Need to Schedule the Following Appointments Follow Up with Kang ALVAREZ MD, URL When: In 6 months Comments: w/TOMEKA Where: [facility] [address], [place] [address]- Medications What How Much When Instructions Unchanged [...] that you are currently receiving treatment for. Bilateral renal cysts BMI 31.0-31.9,adult Chronic back pain Diabetes mellitus, type 2 Hyperlipidemia Lipoma of back Renal lesion Smoker Historical - Any problem that you are no longer receiving treatment for. Breast lump Cigarette smoker Fatigue Insomnia Lipoma of back [place] - myocardial infarction Osteoporosis Pharyngitis Patient Survey You may receive a survey via text or e-mail asking about your office visit. Please share your experience with us by completing your survey. We appreciate your feedback and thank you for choosing us for your care. Education Materials Urinary Tract Infection, Adult A urinary tract [...] these instructions at home: Medicines ??? Take mjva-zkn-vqhcfyt and prescription medicines only as told by [...] ??? You do not get better after 1???2 days. ??? Your symptoms go away and [...] provider. Document Revised: 02/19/2021 Document Reviewed: 02/24/2021 [employer] Patient Education ??? 2023 [employer] ([email or web address]). AMBULATORY VISIT SUMMARY Observed: 09/07 10:36 AM Status: F Source: [facility] Ambulatory Visit Summary VIRGEN GONZALES :1955 Visit [...] Appointments Saturday 11:30 AM EDT With: Kang ALVAREZ MD Where: [facility] [address] [address]- You Need to Schedule the Following Appointments Follow Up with Kang ALVAREZ MD, URL When: In 6 months Comments: w/TOMEKA Where: [facility] [address], [place] [address]- Medications What How Much When Instructions Unchanged [...] that you are currently receiving treatment for. Bilateral renal cysts BMI 31.0-31.9,adult Chronic back pain Diabetes mellitus, type 2 Hyperlipidemia Lipoma of back Renal lesion Smoker Historical - Any problem that you are no longer receiving treatment for. Breast lump Cigarette smoker Fatigue Insomnia Lipoma of back [place] - myocardial infarction Osteoporosis Pharyngitis Patient Survey You may receive a survey via text or e-mail asking about your office visit. Please share your experience with us by completing your survey. We appreciate your feedback and thank you for choosing us for your care. Education Materials Urinary Tract Infection, Adult A urinary tract [...] these instructions at home: Medicines ??? Take wljs-uxn-nqqzolo and prescription medicines only as told by [...] ??? You do not get better after 1???2 days. ??? Your symptoms go away and [...] provider. Document Revised: 02/19/2021 Document Reviewed: 02/24/2021 [employer] Patient Education ??? 2023 [employer] ([email or web address]). UROLOGY OFFICE/CLINIC NOTE Observed: 04/2025 10:33 AM Status: F Source: [facility] Urology Office/Clinic Note Chief Complaint referral renal lesion [...] [facility] [address], [place] [address]- Additional Instructions: w/TOMEKA Patient Education Urinary Tract Infection, Adult, Inqj-ab-Qrkh ITricia , personally scribed for Dr. Alvarez on 09/07/2024 10:33:42. . Documentation recorded by the hollieibTricia hill, accurately reflects the services(s) I performed and decisions made by me. Problem List/Past Medical History Ongoing Bilateral renal cysts BMI 31.0-31.9,adult Chronic back pain Diabetes mellitus, type 2 Hyperlipidemia Lipoma of back Renal lesion Smoker Historical Breast lump Cigarette smoker Fatigue Insomnia Lipoma of back [place] - myocardial infarction Osteoporosis Pharyngitis Procedure/Surgical History [...] BID, PRN FLUoxetine 10 mg Cap, 10 mg= 1 cap(s), Oral, Daily furosemide, 20 mg, Oral, Daily hydrochlorothiazide 25 mg Tab, 25 mg= 1 tab(s) Jardiance 25 mg oral tablet, 25 mg= 1 tab(s), Oral, qAM lisinopril 10 mg Tab, 10 mg= 1 tab(s), Oral, Daily meclizine, 25 mg, Oral, BID Nexium 20 mg Cap-DR, 20 mg= 1 cap(s), Oral, Daily nitroglycerin 0.4 mg sublingual Tab, 0.4 mg= 1 tab(s), SubLingual, q5min, PRN Ozempic 2 mg/3 mL (0.25 mg or 0.5 mg dose) subcutaneous solution, See Instructions pregabalin, 75 mg, Oral, BID Relion Novolin N, 16 unit(s), SubCutaneous, BID simvastatin 40 mg Tab, 40 mg= 1 tab(s), Oral, Once a day (at bedtime) Allergies Percocet (sleeps a long time) Vicodin (itching , sick to stomach) Darvocet-N 100 (Itching) Darvon (Itching) codeine (Nausea) penicillins (Difficulty breathing at rest, Hives) Social History Alcohol - Denies Alcohol Use, 05/02/2016 Never., 09/06/2024 Substance Abuse - Denies Substance Abuse, 05/02/2016 Never., 09/06/2024 Tobacco - Medium Risk, 05/02/2016 10 or more cigarettes (1/2 pack or more)/day in last 30 days Tobacco Use:. Never Smokeless Tobacco Use:. Cigarettes, 09/07/2024 Family History Arthritis: Mother and Father. Asthma: Father. COPD: Father. Diabetes mellitus type 2: Father. Heart disease: Mother and Father. High cholesterol: Mother. Hypertension: Mother. Kidney stone: Mother. Migraine: Mother. Seizure: Mother. Immunizations Vaccine Date Status zoster vaccine, inactivated 06/11/2024 Recorded zoster vaccine, inactivated 01/11/2024 Given zoster vaccine, inactivated 12/27/2023 Recorded influenza virus vaccine, inactivated 06/30/2023 Recorded influenza virus vaccine, inactivated 10/30/2022 Recorded influenza virus vaccine, inactivated 05/31/2022 Recorded SARS-CoV-2 (COVID-19) mRNA-1273 vaccine 12/19/2020 Recorded SARS-CoV-2 (COVID-19) mRNA-1273 vaccine 11/22/2020 Recorded SARS-CoV-2 (COVID-19) mRNA-1273 vaccine 11/14/2020 Recorded pneumococcal 13-valent vaccine 06/01/2020 Recorded influenza virus vaccine, inactivated 06/01/2020 Recorded influenza virus vaccine, inactivated 04/28/2019 Recorded pneumococcal 23-valent vaccine 07/29/2018 Recorded Result Comment: Electronical ly Signed By: Kang ALVAREZ MD\.br\Date and Time Signed: 09/07/24 10:35 EST\.br\Electronically Co-Signed By: Tricia Zelaya\.br\Date and Time Co-Signed: 09/07/24 10:34 EST PATIENT EDUCATION Observed: 09/07/2024 10:32 AM Status: F Source: [facility] Patient Education Obstetrics and Gynecology Urinary Tract [...] these instructions at home: Medicines ??? Take jtho-eqe-enrcbja and prescription medicines only as told by [...] provider. Document Revised: 02/19/2021 Document Reviewed: 02/24/2021 [employer] Patient Education ? 2023 [employer] PROGRESS Observed: 08/20/2024 2:15 PM Status: COMPLETED Source: [facility] Cardiology Clinic Note Chief Complaint: Patient here to establish care for CAD. She was last seen by cardiology in 2019 by [facility]. She had stress test and echo [...] months or sooner should problems arise Ponce Madden MD, MPH, [facility], [facility], [facility] Interventional Cardiology Pager Email: [email or web address] OFFICE VISIT Observed: 08/20/2024 2:15 PM Status: COMPLETED Source: [facility] [id number] Andreea Harris 1955 F Date Provider Department Center 08/20/2024 [id number] MADDEN [facility] Family History Problem Relation Age of Onset Heart failure Mother Heart failure Father Heart failure Paternal Grandmother Family Status - Relation Status Age at Mother Father Paternal Grandmother Level of Service:20733 [place] OFFICE/OUTPATIENT [facility] 30 MINUTES ED NOTE-PHYSICIAN Observed: 07/08/2024 2:09 AM Status: F Source: [facility] ED Note-Physician Basic Information Time Seen: Kelly Smith PA-C. 07/07/2024 18:19 Chief Complaint c/o neck, left lower back and head pain after syncopal episode at work around 1745. pt unsure of reason to passing out. hx of diabetes, on insulin. pt takes ASA daily History of Present Illness This patient presents emergency department after syncopal episode at work. Patient works at [employer] and states all of a sudden she [...] Decision rules/scores evaluated: Noted in chart if applicable Discussed with: Not applicable Treatment and Disposition ED Course: Patient was interviewed and examined. Appropriate ER workup was initiated per ATLS protocol. Patient adamantly refused c-collar placement. White blood count 9.1, hemoglobin 12.7, hematocrit 3.3, platelet 183. Pro time 10.3, INR 0.92, PTT 31.1. Sodium 137, potassium 3.6, chloride 104, CO2 26, BUN 23, creatinine 1.8, glucose 154, calcium 9.1, alk phos slightly elevated at 112, remainder CMP unremarkable. Lipase 22, lactic acid normal at 0.9, magnesium normal at 2.2. Myoglobin elevated at 120, troponin normal at 10.70, total CK normal at 149, alcohol less than 10, beta-hCG negative. CT scan of the head showed a posterior scalp contusion, no ICH, no mass affect or edema, no skull fracture. CT scan cervical spine with no acute traumatic injury. CT scan of the chest with no traumatic injury within the chest. CT scan of the abdomen pelvis with no traumatic injury in the abdomen or pelvis, incompletely characterized exophytic lesion measuring 2 cm arising from the right renal cortex. UA remarkable for trace protein, 4+ glucose, 1+ blood, 500 leukocytes, 31-75 RBCs, 31-75 WBCs, 1+ bacteria, trace budding yeast. Patient was given ceftriaxone 1 g IV piggyback here in the department. She is given 1 L normal saline. On reevaluation she is feeling much better. I discussed the discharge diagnosis, plan of care, home-going instructions and prescriptions with her. The patient will be discharged to home in stable condition. She is to follow-up with her primary care physician. She is to return to the emergency department for any further problems or concerns. Shared decision making: I discussed the discharge diagnosis and plan of care with the patient. She is in agreement with the plan of care. Code status: Not applicable Assessment/Plan 1. Contusion of occipital region of scalp (S00.03XA: Contusion of scalp, initial encounter) 2. Syncope and collapse (R55: Syncope and collapse) 3. Acute lower urinary tract infection (N39.0: Urinary tract infection, site not specified) Orders: ceftriaxone + Sodium Chloride 0.9% intravenous solution 50 mL, 1,000 mg = 1 EA, IV Piggyback, Once, Stop date 07/07/24 20:21:00 EST, STAT, Start date 07/07/24 20:21:00 EST, 100 mL/hr, Infuse over 30 minute(s), 07/07/24 20:21:00 EST cephalexin, 500 mg = 1 cap(s), Oral, q12hr, # 20 cap(s), Refills(s) 0, Pharmacy: [facility], 152, cm, 07/07/24 18:23:00 EST, Height/Length Dosing, 94.1, kg, 07/07/24 18:23:00 EST, Weight Dosing Sodium Chloride 0.9% intravenous solution 1,000 mL, 1,000 mL, IV, 1,000 mL/hr, STAT, Start date 07/07/24 20:14:00 EST, 1 hour(s), Total volume (mL): 1,000, 94.1 kg, 1.99, m2 ABO/Rh ABO/Rh History Check Antibody Screen Basic Metabolic Panel Beta hCG Qual Blood Bank ID# CBC w/ Auto Diff Cervical Collar Creatine Kinase CT Abdomen/Pelvis w/ Contrast CT Chest w/ Contrast CT Head or Brain w/o Contrast CT Spine Cervical w/o Contrast Drug Screen Urine ECG 12 Lead Adult ED Cardiac Monitoring eGFR Ethanol Level Hepatic Function Panel Lactic Acid Lipase Level Magnesium Level Myoglobin NPO Diet Oxygen Therapy PT & PTT Pulse Oximetry Continuous Saline Lock Insert Troponin UA with Cult Rflx Urine Culture Medications Administered Given Sodium Chloride 0.9% IV Nidia 1000 mL 1,000 mL, 1000 mL, IV ceftriaxone additive 1000 mg + Sodium Chloride 0.9% intravenous solution 50 mL, IV Piggyback Disposition Plan Patient Discharge Condition Stable Discharge Disposition Home Discharge Prescription List Prescriptions cephalexin 500 mg Cap, 500 mg= 1 cap(s), Oral, q12hr Follow-up With When Contact Information AGGIE DAVIS In 3 days 07/10/2024 EST [address] [place] [address] [phone] Business (1) Additional Instructions: Patient Education Urinary Tract Infection, Adult, Cnib-ky-Cjha Syncope, Adult, Kekz-rg-Olpr Head Injury, Adult, Yoxz-df-Dvxo Contusion, Whrt-il-Gzja Attestation Patient seen and evaluated by the physician preschool teacher's assistant. Attending physician was present in the emergency department and supervised care. This visit was performed by both the physician and an APC. I performed all aspects of the MDM as documented. This report was transcribed using voice recognition software. Every effort was made to ensure accuracy, however, inadvertently computerized hearing instrument specialist mistakes may be present. Appropriate healthcare PPE was used in evaluating this patient. The patient was placed in a mask. The healthcare provider was wearing mask, gloves, and utilizing proper hand hygiene. All equipment was properly cleansed. I performed a substantive part of the MDM during the patient???s E/M visit. I personally made or approved the documented management plan and acknowledge its risk of complications. (Independent Interpretation) My (EKG/X-Ray/US/CT as applicable) interpretation as above. (Discussion) Management/test interpretation discussed with APC. Problem List/Past Medical History Ongoing BMI 31.0-31.9,adult Chronic back pain Diabetes mellitus, type 2 Hyperlipidemia Lipoma of back Smoker Historical Breast lump Cigarette smoker Fatigue Insomnia Lipoma of back [place] - myocardial infarction Osteoporosis Pharyngitis Procedure/Surgical History Carpal tunnel release (06/07/2023), Arthroscopy of knee (09/30/2020), Right little finger release A-1 linda (05/09/2016), Cholecystectomy, History of tonsillectomy, hysterectomy, needle removed right foot, Operation on toenail, Release of trigger finger, right carpel tunnel, right knee arthroscopy x2. Medications Inpatient Sodium Chloride 0.9% IV Niida 1000 mL 1,000 mL, 1000 mL, IV Home Advil Allergy Sinus oral tablet, 1 tab(s), Oral, q6hr, PRN alendronate 70 mg oral tablet, 70 mg= 1 tab(s), Oral, qWeek aspirin, 81 mg, Oral, Daily busPIRone, 75 mg, Oral, BID cephalexin 500 mg Cap, 500 mg= 1 cap(s), Oral, q12hr Chantix 1 mg Tab, 1 mg= 1 tab(s), Oral, BID, Not taking Flovent HFA 110 Aerosol, 2 puff(s), Inhalation, BID, PRN FLUoxetine 10 mg Cap, 10 mg= 1 cap(s), Oral, Daily furosemide, 20 mg, Oral, Daily Januvia 100 mg Tab, 100 mg= 1 tab(s), Oral, Daily, Not taking Jardiance 25 mg oral tablet, 25 mg= 1 tab(s), Oral, qAM lisinopril 10 mg Tab, 10 mg= 1 tab(s), Oral, Daily naproxen 500 mg Tab, 500 mg= 1 tab(s), Oral, BID, PRN naproxen 500 mg Tab, 500 mg= 1 tab(s), Oral, BID, Not taking Nexium 20 mg Cap-DR, 20 mg= 1 cap(s), Oral, Daily nitroglycerin 0.4 mg sublingual Tab, 0.4 mg= 1 tab(s), SubLingual, q5min, PRN, Not taking pregabalin, 75 mg, Oral, BID Relion Novolin N, 16 unit(s), SubCutaneous, BID simvastatin 40 mg Tab, 40 mg= 1 tab(s), Oral, Once a day (at bedtime) traMADOL 50 mg Tab, 50 mg= 1 tab(s), Oral, q4hr, PRN Allergies Percocet (sleeps a long time) Vicodin (itching , sick to stomach) Darvocet-N 100 (Itching) Darvon (Itching) codeine (Nausea) penicillins (Difficulty breathing at rest, Hives) Social History Alcohol - Denies Alcohol Use, 05/02/2016 Substance Abuse - Denies Substance Abuse, 05/02/2016 Tobacco - Medium Risk, 05/02/2016 Cigarettes, 05/02/2016 Lab Results WBC: 9.1 E9/L (07/07/24 18:23:00) RBC: 4.2 E12/L Low (07/07/24 18:23:00) HGB: 12.7 gm/dL (07/07/24 18:23:00) Hct: 38.3 % (07/07/24 18:23:00) MCV: 90.2 fL (07/07/24 18:23:00) MCH: 29.9 pg (07/07/24 18:23:00) MCHC: 33.1 gm/dL (07/07/24 18:23:00) RDW: 15.1 % High (07/07/24 18:23:00) Platelet: 183 E9/L (07/07/24 18:23:00) MPV: 10.1 fL (07/07/24 18:23:00) Neutro Auto: 64.2 % (07/07/24 18:23:00) Lymph Auto: 26.6 % (07/07/24 18:23:00) [place] Auto: 5.5 % (07/07/24 18:23:00) Eos Auto: 3.1 % (07/07/24 18:23:00) Basophil Auto: 0.6 % (07/07/24 18:23:00) Neutro Absolute: 5.8 E9/L (07/07/24 18:23:00) Lymph Absolute: 2.4 E9/L (07/07/24 18:23:00) [place] Absolute: 0.5 E9/L (07/07/24 18:23:00) Eos Absolute: 0.3 E9/L (07/07/24 18:23:00) Basophil Absolute: 0.1 E9/L (07/07/24 18:23:00) PT: 10.3 second(s) (07/07/24 18:23:00) INR: 0.92 (07/07/24 18:23:00) PTT: 31.1 second(s) (07/07/24 18:23:00) Glucose Lvl: 154 mg/dL (07/07/24 18:23:00) BUN: 23 mg/dL High (07/07/24 18:23:00) Creatinine: 1.8 mg/dL High (07/07/24 18:23:00) eGFR: 30 mL/min/1.73 m2 Low (07/07/24 18:23:00) BUN/Creat Ratio: 13 (07/07/24 18:23:00) Sodium Lvl: 137 mmol/L (07/07/24 18:23:00) Potassium Lvl: 3.6 mmol/L (07/07/24 18:23:00) Chloride: 104 mmol/L (07/07/24 18:23:00) CO2: 26 mmol/L (07/07/24 18:23:00) AGAP: 11 mEq/L (07/07/24 18:23:00) Calcium Lvl: 9.1 mg/dL (07/07/24 18:23:00) Alk Phos: 112 Int._Unit/L High (07/07/24 18:23:00) ALT: 11 Int._Unit/L (07/07/24 18:23:00) AST: 13 Int._Unit/L (07/07/24 18:23:00) Total Protein: 6.7 gm/dL (07/07/24 18:23:00) Albumin Lvl: 3.9 gm/dL (07/07/24 18:23:00) Globulin: 2.8 gm/dL (07/07/24 18:23:00) A/G Ratio: 1.4 (07/07/24 18:23:00) Bili Total: 0.4 mg/dL (07/07/24 18:23:00) Bili Direct: 0.1 mg/dL (07/07/24 18:23:00) Bili Indirect: 0.3 mg/dL (07/07/24 18:23:00) Lipase Lvl: 22 unit/L (07/07/24 18:23:00) Lactic Acid Lvl: 0.9 mmol/L (07/07/24 18:23:00) Magnesium: 2.2 mg/dL (07/07/24 18:23:00) Myoglobin: 128 ng/mL High (07/07/24 18:23:00) Troponin HS: 10.7 pg/mL (07/07/24 18:23:00) Total CK: 149 Int._Unit/L (07/07/24 18:23:00) U Amph Scr: NEGATIVE (07/07/24 19:41:00) U Vanessa Scr: NEGATIVE (07/07/24 19:41:00) U Benzodia Scr: NEGATIVE (07/07/24 19:41:00) U Cannab Scr: NEGATIVE (07/07/24 19:41:00) U Cocaine Scr: NEGATIVE (07/07/24 19:41:00) U Opiate Scr: NEGATIVE (07/07/24:41:00) U PCP Scr: NEGATIVE (07/07/24:41:00) U Fentanyl: NEGATIVE (07/07/24 19:41:00) Ethanol Lvl: <10 (07/07/24 18:23:00) UA Spec Desc: Clean Catch (07/07/24:41:00) UA Color: Light-[place] Abnormal (07/07/24 19:41:00) UA Clarity: Ex.Turbid Abnormal (07/07/24 19:41:00) UA Spec Grav: 1.019 (07/07/24:41:00) UA pH: 6.5 (07/07/24 19:41:00) UA Protein: Trace Abnormal (07/07/24 19:41:00) UA Glucose: 4+ Abnormal (07/07/24 19:41:00) UA Ketones: Negat (07/07/24:41:00) UA Bili: Negat (07/07/24 19:41:00) UA Blood: 1+ Abnormal (07/07/24 19:41:00) UA Nitrite: Negat (07/07/24:41:00) UA Urobilinogen: Negat (07/07/24:41:00) UA Leuk Est: 500 Isidoro/uL Abnormal (07/07/24 19:41:00) UA RBC: 31-75 Abnormal (07/07/24 19:41:00) UA Squam Epithelial: >10 (07/07/24:41:00) UA WBC: 31-75 Abnormal (07/07/24 19:41:00) UA Bacteria: 1+ Abnormal (07/07/24 19:41:00) UA Mucous: Negat (07/07/24 19:41:00) UA Budding Yeast: Trace Abnormal (07/07/24 19:41:00) Beta hCG Ql: NEGATIVE1 (07/07/24 18:23:00) ABO/Rh: A POS (07/07/24 18:48:00) ABSC Gel Interp: Negative (07/07/24 18:48:00) Diagnostic Results No qualifying data available. Result Comment: Electronical ly Signed By: Kelly Smith PA-C\.br\Date and Time Signed: 07/08/24 02:10 EST\.br\Electronically Co-Signed By: Ean Azevedo M.D.\.br\Date and Time Co-Signed: 07/09/24 07:05 EST ED PATIENT SUMMARY Observed: 07/07/2024 10:29 PM Status: F Source: [facility] ED Patient Summary [place] [address] Patient Discharge Instructions Person Information Name: VIRGEN GONZALES Age: 68 Years Arrival Date: 07/07/2024 18:16:48 Discharge Diagnosis: 1:Contusion of occipital region of scalp; 2:Syncope and collapse; 3:Acute lower urinary tract infection Primary Care Physician: AGGIE DAVIS CNP Provider Information Primary Provider: Tiny Fallon DO Advanced Cashier:None The exam and treatment you received in the Emergency Department were for an urgent problem and are not intended as complete care. It is important that you follow up with a doctor, nurse practitioner, or physician???s preschool teacher's assistant for ongoing care. If your symptoms [...] With: Address: When: AGGIE DAVIS [address] [address] [phone] Business (1) In 3 days 07/10/2024 In the event that this physician does not participate in your insurance network, please consult with your insurance company to find a nearby participating provider. Patient Education Materials: Urinary Tract Infection, Adult, Njln-us-Jbjr; Syncope, Adult, Inhr-wb-Ekvx; Head Injury, Adult, Bfxs-pd-Basb; Contusion, Xyfd-rh-Bxmi A MESSAGE TO ALL PATIENTS REGARDING OPIOIDS PRESCRIPTION OPIOIDS: WHAT YOU NEED TO KNOW Prescription opioids can be used to help relieve ockizaar-fu-bmrytg pain and are often prescribed following a [...] guidance from the Food and Drug Administration (www.fda.gov/Drugs/ResourcesForYou). ??? Visit www.cdc.gov/drugoverdose to learn about the risks of opioids abuse and overdose. ??? If you believe you may be struggling with addiction, tell your health skin care consultant and ask for guidance or call [facility]???S National Helpline at 0-662-790-BUIW. v Source: US Department of Health and Human Services/Center for Disease Control & Prevention [facility] Medications Given: Medication Dose Route Sodium Chloride 0.9% intravenous solution 1000.00 mL Initial Volume 1000.00 mL/hr IV Left Mid Forearm ceftriaxone 1000.00 mg IV Piggyback Left Mid Forearm Medication Information: New Medications [facility], [address] [place], [place] [id number], [phone] cephalexin (cephalexin 500 mg Cap) 1 Capsules By Mouth every 12 hours. Refills: 0. Medications to Continue with No Changes Other Medications alendronate (alendronate 70 mg oral tablet) 1 Tablets By Mouth every week. aspirin 81 Milligram By Mouth every day. busPIRone 75 Milligram By Mouth 2 times a day. chlorpheniramine/ibuprofen/pseudoephedrine (Advil Allergy Sinus oral tablet) 1 Tablets [...] Tablets By Mouth 2 times a day. Comment: Pharmacy Information: Patient Portal You may access all of your results and other medical record information on our secure patient portal. If you are not signed up for this yet, please contact [employer] at [phone] to get signed up today. SAIDA Award Nomination The SAIDA (Diseases Attacking the Immune SYstem) Award is an international recognition program that honors and celebrates the skillful, compassionate care nurses provide every day. Anyone who experiences or observes amazing care being provided by a nurse is encouraged to submit a nomination. To nominate your nurse, use your smart phone to scan the QR code below. You may receive a survey from [email or web address] asking you to rate your care experience. Your feedback is important and will help us understand what we do well and how we can improve the quality of care we provide to you, your loved ones and our community. It???s an honor to serve you. Thank you for choosing [facility] Patient Education Materials: Urinary Tract Infection, Adult A urinary tract [...] these instructions at home: Medicines ??? Take hwal-kdk-qfsphmc and prescription medicines only as told by [...] provider. Document Revised: 02/19/2021 Document Reviewed: 02/24/2021 [employer] Patient Education ? 2023 [employer] [email or web address]). Syncope, Adult Syncope is when you pass [...] until you feel better. Medicines ??? Take mwjh-sqa-vipufwq and prescription medicines only as told by [...] provider. Document Revised: 11/23/2021 Document Reviewed: 11/23/2021 [employer] Patient Education ? 2023 [employer] [email or web address]). Head Injury, Adult There are many types [...] serious head injury may be caused by: ??? A car accident. ??? Bicycle or motorcycle accidents. ??? Sports injuries. ??? Falls. ??? Being hit by an object. What are the signs or symptoms? Symptoms of a head injury include a bruise, bump, or bleeding where the injury happened. Other physical symptoms may include: ??? Headache. ??? Feeling like you may vomit (nauseous) or vomiting. ??? Dizziness. ??? Blurred or double vision. ??? Being uncomfortable around bright lights or loud noises. ??? Feeling tired. ??? Trouble waking up. ??? Severe symptoms such as: ? Feeling weak or numb on one side of the body. ? Slurred speech. ? Swallowing problems. ? Fainting. ? Shaking movements that you cannot control (seizures). Mental or emotional symptoms may include: ??? Feeling grumpy or cranky. ??? Confusion and memory problems. ??? Having trouble paying attention or concentrating. ??? Changes in eating or sleeping habits. ??? Feeling worried or nervous (anxious). ??? Feeling sad (depressed). How is this treated? Treatment for this condition depends on how bad the injury is and the type of injury you have. The main goal is to prevent problems and to allow the brain time to heal. Mild head injury If you have a mild head injury, you may be sent home, and treatment may include: ??? Being watched. A responsible adult should stay with you for 24 hours after your injury and check on you often. ??? Physical rest. ??? Brain rest. ??? Pain medicines. Very bad head injury If you have a very bad head injury, treatment may include: ??? Being watched closely. This includes staying in the hospital. ??? Medicines to: ? Help with pain. ? Prevent seizures. ? Help with brain swelling. ??? Protecting your airway and using a machine that helps you breathe (ventilator). ??? Watching for and manage swelling inside the brain. ??? Brain surgery. This may be needed to: ? Remove a collection of blood or blood clots. ? Stop the bleeding. ? Remove a part of the skull. This allows room for the brain to swell. Follow these instructions at home: Activity ??? Rest. ??? Avoid activities that are hard or tiring. ??? Make sure you get enough sleep. ??? Let your brain rest. Do fewer activities that need a lot of thought or attention, such as: ? Watching TV. ? Playing memory games and doing puzzles. ? Job-related work or homework. ? Working on the computer, social media, and texting. ??? Avoid activities that could cause another head injury until your doctor says it is okay. This includes playing sports. ??? Ask your doctor when it is safe for you to go back to your normal activities, such as work or school. ??? Ask your doctor when you can drive, ride a bicycle, or use machines. Do not do these activities if you are dizzy. Lifestyle ??? Do not drink alcohol until your doctor says it is okay. ??? Do not use drugs. ??? If it is hard to remember things, write them down. ??? If you are easily distracted, try to do one thing at a time. ??? Talk with family members or close friends when making important decisions. ??? Tell your friends, family, a trusted co-worker, and supervisor shed workers about your injury, symptoms, and limits (restrictions). Have them watch for any problems that are new or getting worse. General instructions ??? Take dmoq-dpj-arbubne and prescription medicines only as told by your doctor. ??? Have a responsible adult stay with you for 24 hours after your head injury. This person should watch you for any changes in your symptoms and be ready to get help. ??? Keep all follow-up visits to catch any new problems early. How is this prevented? Having another head injury can be dangerous. Another injury can lead to brain damage, brain swelling, or . You can avoid this by: ??? Working on your balance and strength. This can help you avoid falls. ??? Wearing a seat belt when you are in a moving vehicle. ??? Wearing a helmet when you: ? Ride a bicycle. ? Ski. ? Do any other sport or activity that has a risk of injury. ??? Making your home safer by: ? Getting rid of clutter from the floors and stairs. This includes things that can make you trip. ? Using grab bars in bathrooms and handrails by stairs. ? Placing non-slip mats on floors and in bathtubs. ? Putting more light in dim areas. Where to find more information ??? Brain Injury Association: biausa.org Contact a doctor if: ??? These symptoms do not go away: ? Headaches. ? Dizziness. ? Double vision or vision changes. ? Trouble sleeping. ? Changes in mood. ??? You have new symptoms. Get help right away if: ??? You have sudden: ? Headache that is very bad. ? Vomiting that does not stop. ? Changes in the size of one of your pupils. Pupils are the black centers of your eyes. ? Changes in how you see (vision). ? More confusion or more grumpy moods. ??? You have a seizure. ??? Your symptoms get worse. ??? You have a clear or bloody fluid coming from your nose or ears. These symptoms may be an emergency. Get help right away. Call 911. ??? Do not wait to see if the symptoms will go away. ??? Do not drive yourself to the hospital. This information is not intended to replace advice given to you by your health care provider. Make sure you discuss any questions you have with your health care provider. Document Revised: 05/02/2023 Document Reviewed: 05/02/2023 Elsevier Patient Education ? 2023 [employer] Contusion A contusion is a deep bruise. This is a result of an injury that causes bleeding under the skin. Symptoms of bruising include pain, swelling, and discolored skin. The skin may turn blue, purple, or yellow. Follow these instructions at home: Managing pain, stiffness, and swelling You may use RICE. This stands for: ??? Resting. ??? Icing. ??? Compression, or putting pressure on the injured area. ??? Elevating, or raising the injured area. To follow this method, do these actions: ??? Rest the injured area. ??? If told, put ice on the injured area. To do this: ? Put ice in a plastic bag. ? Place a towel between your skin and the bag. ? Leave the ice on for 20 minutes, 2?3 times per day. ? If your skin turns bright red, take off the ice right away to prevent skin damage. The risk of skin damage is higher if you cannot feel pain, heat, or cold. ??? If told, apply compression on the injured area using an elastic bandage. Make sure the bandage is not too tight. If the area tingles or has a loss of feeling (numbness), remove it and put it back on as told by your doctor. ??? If possible, elevate the injured area above the level of your heart while you are sitting or lying down. General instructions ??? Take hjxw-vfn-dbsihtb and prescription medicines only as told by your doctor. ??? Keep all follow-up visits. Your doctor may want to see how your contusion is healing with treatment. Contact a doctor if: ??? Your symptoms do not get better after several days of treatment. ??? Your symptoms get worse. ??? You have trouble moving the injured area. Get help right away if: ??? You have very bad pain. ??? You have a loss of feeling (numbness) in a hand or foot. ??? Your hand or foot turns pale or cold. This information is not intended to replace advice given to you by your health care provider. Make sure you discuss any questions you have with your health care provider. Document Revised: 12/31/2022 Document Reviewed: 12/31/2022 [employer] Patient Education ? 2023 [email or web address]). IELIAS SHIRLEY S , have received the following patient education materials/instructions and have verbalized understanding: Patient Education Materials: Urinary Tract Infection, Adult, Halx-li-Kqxo; Syncope, Adult, Tlaj-it-Hzoq; Head Injury, Adult, Gpqo-ur-Bcas; Contusion, Cuzt-bd-Uyuv Follow-up Instructions: With: Address: When: AGGIE DAVIS [facility], [place] [address] [phone] Business (1) In 3 days 07/10/2024 Patient Signature Date Clinician/Nurse Signature Date 07/07/2024 22:29:19 ED PATIENT EDUCATION NOTE Observed: 06/28 10:29 PM Status: F Source: [facility] ED Patient Education Note Neurology Syncope, Adult [...] until you feel better. Medicines ??? Take wgam-spf-tphjrhn and prescription medicines only as told by [...] provider. Document Revised: 11/23/2021 Document Reviewed: 11/23/2021 [employer] Patient Education ? 2023 [email or web address]).Head Injury, Adult There are many types of [...] serious head injury may be caused by: ??? A car accident. ??? Bicycle or motorcycle accidents. ??? Sports injuries. ??? Falls. ??? Being hit by an object. What are the signs or symptoms? Symptoms of a head injury include a bruise, bump, or bleeding where the injury happened. Other physical symptoms may include: ??? Headache. ??? Feeling like you may vomit (nauseous) or vomiting. ??? Dizziness. ??? Blurred or double vision. ??? Being uncomfortable around bright lights or loud noises. ??? Feeling tired. ??? Trouble waking up. ??? Severe symptoms such as: ? Feeling weak or numb on one side of the body. ? Slurred speech. ? Swallowing problems. ? Fainting. ? Shaking movements that you cannot control (seizures). Mental or emotional symptoms may include: ??? Feeling grumpy or cranky. ??? Confusion and memory problems. ??? Having trouble paying attention or concentrating. ??? Changes in eating or sleeping habits. ??? Feeling worried or nervous (anxious). ??? Feeling sad (depressed). How is this treated? Treatment for this condition depends on how bad the injury is and the type of injury you have. The main goal is to prevent problems and to allow the brain time to heal. Mild head injury If you have a mild head injury, you may be sent home, and treatment may include: ??? Being watched. A responsible adult should stay with you for 24 hours after your injury and check on you often. ??? Physical rest. ??? Brain rest. ??? Pain medicines. Very bad head injury If you have a very bad head injury, treatment may include: ??? Being watched closely. This includes staying in the hospital. ??? Medicines to: ? Help with pain. ? Prevent seizures. ? Help with brain swelling. ??? Protecting your airway and using a machine that helps you breathe (ventilator). ??? Watching for and manage swelling inside the brain. ??? Brain surgery. This may be needed to: ? Remove a collection of blood or blood clots. ? Stop the bleeding. ? Remove a part of the skull. This allows room for the brain to swell. Follow these instructions at home: Activity ??? Rest. ??? Avoid activities that are hard or tiring. ??? Make sure you get enough sleep. ??? Let your brain rest. Do fewer activities that need a lot of thought or attention, such as: ? Watching TV. ? Playing memory games and doing puzzles. ? Job-related work or homework. ? Working on the computer, social media, and texting. ??? Avoid activities that could cause another head injury until your doctor says it is okay. This includes playing sports. ??? Ask your doctor when it is safe for you to go back to your normal activities, such as work or school. ??? Ask your doctor when you can drive, ride a bicycle, or use machines. Do not do these activities if you are dizzy. Lifestyle ??? Do not drink alcohol until your doctor says it is okay. ??? Do not use drugs. ??? If it is hard to remember things, write them down. ??? If you are easily distracted, try to do one thing at a time. ??? Talk with family members or close friends when making important decisions. ??? Tell your friends, family, a trusted co-worker, and supervisor shed workers about your injury, symptoms, and limits (restrictions). Have them watch for any problems that are new or getting worse. General instructions ??? Take gzkq-cwf-wdhvbio and prescription medicines only as told by your doctor. ??? Have a responsible adult stay with you for 24 hours after your head injury. This person should watch you for any changes in your symptoms and be ready to get help. ??? Keep all follow-up visits to catch any new problems early. How is this prevented? Having another head injury can be dangerous. Another injury can lead to brain damage, brain swelling, or . You can avoid this by: ??? Working on your balance and strength. This can help you avoid falls. ??? Wearing a seat belt when you are in a moving vehicle. ??? Wearing a helmet when you: ? Ride a bicycle. ? Ski. ? Do any other sport or activity that has a risk of injury. ??? Making your home safer by: ? Getting rid of clutter from the floors and stairs. This includes things that can make you trip. ? Using grab bars in bathrooms and handrails by stairs. ? Placing non-slip mats on floors and in bathtubs. ? Putting more light in dim areas. Where to find more information ??? Brain Injury Association: biausa.org Contact a doctor if: ??? These symptoms do not go away: ? Headaches. ? Dizziness. ? Double vision or vision changes. ? Trouble sleeping. ? Changes in mood. ??? You have new symptoms. Get help right away if: ??? You have sudden: ? Headache that is very bad. ? Vomiting that does not stop. ? Changes in the size of one of your pupils. Pupils are the black centers of your eyes. ? Changes in how you see (vision). ? More confusion or more grumpy moods. ??? You have a seizure. ??? Your symptoms get worse. ??? You have a clear or bloody fluid coming from your nose or ears. These symptoms may be an emergency. Get help right away. Call 911. ??? Do not wait to see if the symptoms will go away. ??? Do not drive yourself to the hospital. This information is not intended to replace advice given to you by your health care provider. Make sure you discuss any questions you have with your health care provider. Document Revised: 05/02/2023 Document Reviewed: 05/02/2023 [employer] Patient Education ? 2023 [employer]Obstetrics and Gynecology Urinary Tract Infection, Adult A [...] these instructions at home: Medicines ??? Take rbfq-byj-xpmidkr and prescription medicines only as told by [...] provider. Document Revised: 02/19/2021 Document Reviewed: 02/24/2021 [employer] Patient Education ? 2023 [employer]Orthopedics Contusion A contusion is a deep bruise. This is a result of an injury that causes bleeding under the skin. Symptoms of bruising include pain, swelling, and discolored skin. The skin may turn blue, purple, or yellow. Follow these instructions at home: Managing pain, stiffness, and swelling You may use RICE. This stands for: ??? Resting. ??? Icing. ??? Compression, or putting pressure on the injured area. ??? Elevating, or raising the injured area. To follow this method, do these actions: ??? Rest the injured area. ??? If told, put ice on the injured area. To do this: ? Put ice in a plastic bag. ? Place a towel between your skin and the bag. ? Leave the ice on for 20 minutes, 2?3 times per day. ? If your skin turns bright red, take off the ice right away to prevent skin damage. The risk of skin damage is higher if you cannot feel pain, heat, or cold. ??? If told, apply compression on the injured area using an elastic bandage. Make sure the bandage is not too tight. If the area tingles or has a loss of feeling (numbness), remove it and put it back on as told by your doctor. ??? If possible, elevate the injured area above the level of your heart while you are sitting or lying down. General instructions ??? Take upxh-qrs-qlwaxhp and prescription medicines only as told by your doctor. ??? Keep all follow-up visits. Your doctor may want to see how your contusion is healing with treatment. Contact a doctor if: ??? Your symptoms do not get better after several days of treatment. ??? Your symptoms get worse. ??? You have trouble moving the injured area. Get help right away if: ??? You have very bad pain. ??? You have a loss of feeling (numbness) in a hand or foot. ??? Your hand or foot turns pale or cold. This information is not intended to replace advice given to you by your health care provider. Make sure you discuss any questions you have with your health care provider. Document Revised: 12/31/2022 Document Reviewed: 12/31/2022 [employer] Patient Education ? 2023 [email or web address]). ED CLINICAL SUMMARY Observed: 07/07/2024 10:29 PM Status: F Source: [facility] ED Clinical Summary [address] [address] ED Clinical Summary Person Information Name: VIRGEN GONZALES Vanda/[facility] Age: 68 Years : 1955 Sex: Female Language: Luxembourgish PCP: AGGIE DAVIS CNP Marital Status: Visit [...] 07/07/2024 22:29:17 07/07/2024 22:29:17 07/07/2024 22:29:17 ADDRESS: [facility] [place] [phone] PHYS DOC NOTES: MEDICAL INFORMATION: Prescriptions Given: New Medications [facility], [address] [place], [place] [id number], [phone] cephalexin (cephalexin 500 mg Cap) 1 Capsules By Mouth every 12 hours. Refills: 0. Medications to Continue with No Changes Other Medications alendronate (alendronate 70 mg oral tablet) 1 Tablets By Mouth every week. aspirin 81 Milligram By Mouth every day. busPIRone 75 Milligram By Mouth 2 times a day. chlorpheniramine/ibuprofen/pseudoephedrine (Advil Allergy Sinus oral tablet) 1 Tablets [...] EDUCATION INFORMATION: Instructions: Urinary Tract Infection, Adult, Uubc-oe-Nual; Syncope, Adult, Hyrv-pp-Ejie; Head Injury, Adult, Abop-pz-Wfkg; Contusion, Erwa-zy-Hzkb Follow up: With: Address: When: AGGIE DAVIS [address] [place] [address] [phone] Business (1) In 3 days 07/10/2024 DIAGNOSIS: 1:Contusion of occipital region of scalp; 2:Syncope and collapse; 3:Acute lower urinary tract infection C URINE Observed: 07/07/2024 7:41 PM Status: F Source: [facility] Microbiology PROCEDURE: Urine Culture [R1] SOURCE: U Random BODY SITE: COLLECTED DATE/TIME: 07/07/2024 19:41 EST RECEIVED DATE/TIME: 07/07/2024 20:37 EST START DATE/TIME: 07/07/2024 20:37 EST FREE TEXT SOURCE: Luis HUNG, Kelly Smith PA-C, Kelly Arango FINAL REPORTS Final Report [] Verified Date/Time: 07/09/2024 14:17 EST 25,000 cfu/ml Mixed skin contaminants Performing Locations R1: This test was performed at: [facility], [address] [place] [address], [id number], Performed By: #### [id number] # ### [facility] [address] [place] [address] U DRUG SCREEN Collected: 7:41 PM Status: F Source: [facility] TYPE CODE TESTS RESULT OUT OF RANGE REFERENCE UNITS LAB 08006-4(LOINC) AMPHETAMINES: PRTHR:PT:URIN E:ORD:SCREEN> 1000 NG/ML NEGATIVE Normal NEGATIVE Result Comment: Negative Cut off: <1000 ng/mL LAB 23870-2(LOINC) BARBITURATES: PRTHR:PT:URIN E:ORD:SCREEN NEGATIVE Normal NEGATIVE Result Comment: Negative Cut off: <200 ng/mL LAB 42518-3(LOINC) BENZODIAZEPIN ES:PRTHR:PT:U RINE:ORD:SCRE EN NEGATIVE Normal NEGATIVE Result Comment: Negative Cut off: <200 ng/mL LAB 55125-9(LOINC) CANNABINOIDS: PRTHR:PT:URIN E:ORD:SCREEN NEGATIVE Normal NEGATIVE Result Comment: Negative Cut off: <50 ng/mL LAB 3397-7(LOINC) COCAINE:PRTHR :PT:URINE:ORD : NEGATIVE Normal NEGATIVE Result Comment: Negative Cut off: <300 ng/mL LAB 73893-1([facility]) OPIATES:PRTHR :PT:URINE:ORD :SCREEN NEGATIVE Normal NEGATIVE Result Comment: Negative Cut off: <300 ng/mL LAB 39638-0([facility]) PHENCYCLIDINE :PRTHR:PT:URI NE:ORD:SCREEN >25 NG/ML NEGATIVE Normal NEGATIVE Result Comment: Negative Cut off: <25 ng/mL These drug screen results are to be used for medical (i.e., treatment) purposes only. Unconfirmed drug screening results must not be used for non-medical purposes (e.g., employment testing, legal testing). LAB CD:[id number](L [facility]) U Fentanyl NEGATIVE Normal NEGATIVE Result Comment: Negative Cut off: <5 ng/mL These drug screen results are to be used for medical (i.e., treatment) purposes only. Unconfirmed drug screening results must not be used for non-medical purposes (e.g., employment testing, legal testing). Performed By: #### [id number] # ### [facility] [address] [place] [address] UA WITH CULT RFLX Collected: 4 7:41 PM Status: F Source: [facility] TYPE CODE TESTS RESULT OUT OF RANGE REFERENCE UNITS LAB 9194-2([facility]) CLASS:TYPE:PT: URINE COLLECTION METHOD:NOM:* Clean Catch Normal LAB 54833-7([facility]) COLOR:TYPE:PT: URINE:NOM:AUTO Light-Orang e Abnormal Yellow Result Comment: Microscopic readings are only performed on those samples that meet specific criteria set forth by [facility]. LAB 28614-3([facility]) CLARITY:TYPE:P T:URINE:NOM: Ex.Turbid Abnormal Clear LAB 5811-5([facility]) SPECIFIC GRAVITY:RDEN:P T:URINE:SEMIQN :TEST STRIP 1.019 Unknown 1.005-1.030 LAB 5803-2([facility]) PH:LSCNC:PT:UR INE:SEMIQN:WILTON T STRIP 6.5 Unknown 5.0-9.0 LAB 24949-5([facility]) PROTEIN:PRTHR: PT:URINE:ORD:T EST STRIP Trace Abnormal Negative mg/dL LAB 60355-0(LOINC) GLUCOSE:PRTHR: PT:URINE:ORD:T EST STRIP 4+ Abnormal Negative mg/dL LAB 87407-9(LOINC) KETONES:PRTHR: PT:URINE:ORD:T EST STRIP.AUTOMATE D Negative Normal Negative mg/dL LAB 35734-0(LOINC) BILIRUBIN:PRTH R:PT:URINE:ORD :TEST STRIP.AUTOMATE D Negative Normal Negative mg/dL LAB 08437-8(INC) HEMOGLOBIN:MCN C:PT:URINE:ORLY IQN:TEST STRIP.AUTOMATE D 1+ Abnormal Negative mg/dL LAB 62823-8(INC) NITRITE:PRTHR: PT:URINE:ORD:T EST STRIP.AUTOMATE D Negative Normal Negative mg/dL LAB 83943-9(INC) UROBILINOGEN:M CNC:PT:URINE:S EMIQN:TEST STRIP Negative Normal Negative mg/dL LAB 55755-4([facility]) LEUKOCYTE ESTERASE:PRTHR :PT:URINE:ORD: TEST STRIP.AUTOMATE D 500 Isidoro/uL Abnormal Negative CD:21583 67501 LAB 85122-8(LOINC) LEUKOCYTES:TERRY IC:PT:URINE SED:QN:AUTOMAT ED COUNT 31-75 Abnormal 0-5 CD:42330 90818 LAB 96411-5(INC) ERYTHROCYTES:P RTHR:PT:URINE SED:ORD:MICROS COPY.LIGHT 31-75 Abnormal 0-3 CD:59335 30058 LAB 35332-4(INC) EPITHELIAL CELLS.SQUAMOUS :NARIC:PT:URIN E SED:QN:AUTOMAT ED COUNT >10 Unknown CD:34576 42589 LAB 82631-4(LOINC) BACTERIA:PRTHR :PT:URINE:ORD: AUTOMATED 1+ Abnormal Trace /HPF LAB 80602-8(LOINC) MUCUS:PRTHR:PT :URINE:ORD:AUT OMATED Negative Normal Negative CD:02473 97100 LAB 36021-0(INC) YEAST.BUDDING: PRTHR:PT:URINE :ORD:COMPUTER ASSISTED Trace Abnormal CD:90559 53745 Performed By: #### [id number] #### [facility] [address] [place] [address] CT SPINE CERVICAL W/O CONTRAST Observed: 07/07/2024 6:50 PM Status: F Source: [facility] Exam Date/Time: 07/07/2024 19:10 EST Reason for [...] REPORT Dictated: 07/08/2024 9:24 am Home Lockwood MD. Signed (Electronic Signature): 07/08/2024 9:24 am Signed by: Home Lockwood MD Transcribed by: JOSH Technologist: YONIS CT HEAD OR BRAIN W/O CONTRAST Observed: 07/07/2024 6:50 PM Status: F Source: [facility] Exam Date/Time: 07/07/2024 19:10 EST Reason for [...] Montague MD Transcribed by: JOSH Technologist: YONIS CT CHEST W/ CONTRAST Observed: 6:50 PM Status: F Source: [facility] Exam Date/Time: 07/07/2024 19:17 EST Reason for [...] Isovue 300 Contrast amount in ml's: 130 CT ABDOMEN/PELVIS W/ CONTRAST Observed: 07/07/2024 6:50 PM Status: F Source: [facility] Exam Date/Time: 07/07/2024 19:17 EST Reason for Exam: ABDOMINAL TRAUMA;Trauma Report Review report CT chest, for report CT abdomen pelvis. All CT scans at this facility use dose modulation, iterative reconstruction, and/or weight based dosing when appropriate to reduce radiation dose to as low as reasonably achievable. Ordering Provider: Kelly Smith FINAL REPORT Dictated: 07/08/2024 8:54 am SignImer ahn MD Signed (Electronic Signature): 07/08/2024 8:54 am Signed by: Imer Montague MD Transcribed by: JOSH Technologist: YONIS Technical Comments GFR (mL/min/1/73m2) n/a-trauma Contrast: Isovue 300 Contrast amount in ml's: 130 ABO/RH HISTORY CHECK Collected: 024 6:48 PM Status: F Source: [facility] TYPE CODE TESTS RESULT OUT OF RANGE REFERENCE UNITS LAB [id number](LOINC) ABO/Rh History Check Patient discharged prior Normal Performed By: #### [id number] #### [facility] [address] [place] [address] BLOOD BANK ID# Collected: 4 6:48 PM Status: F Source: [facility] TYPE CODE TESTS RESULT OUT OF RANGE REFERENCE UNITS LAB 85981346(LOINC) BBID# [id number] Unknown Performed By: #### [id number] #### [facility] [address] [place] [address] ABSC Collected: 07/07/2024 6:48 PM Status: F Source: [facility] TYPE CODE TESTS RESULT OUT OF RANGE REFERENCE UNITS LAB 83869440(LOINC) ABSC Gel Interp Negative Normal Performed By: #### [id number] #### [facility] [address] [place] [address] ABO/RH Collected: 4 6:48 PM Status: F Source: [facility] TYPE CODE TESTS RESULT OUT OF RANGE REFERENCE UNITS LAB 04835088(LOINC) ABO/Rh A POS Unknown Performed By: #### [id number] # ### [facility] [address] [place] [address] CBC W/ AUTO DIFF Collected: 07/07/2024 6:45 PM Statu s: F Source: [facility] TYPE CODE TESTS RESULT OUT OF RANGE REFERENCE UNITS LAB 12780-0([facility]) LEUKOCYTES^^EMELY ECTED FOR NUCLEATED ERYTHROCYTES:NCN C:PT:BLD:QN:AUTO MATED COUNT 9.1 Normal 4.0-11.0 E9/L LAB 789-8([facility]) ERYTHROCYTES:NCN C:PT:BLD:QN:AUTO MATED COUNT 4.2 Low 4.3-5.9 E12/L LAB 718-7([facility]) HEMOGLOBIN:MCNC: PT:BLD:QN: 12.7 Normal 12.0-16.0 gm/dL LAB 4544-3([facility]) HEMATOCRIT:VFR:P T:BLD:QN:AUTOMAT ED COUNT 38.3 Normal 34.0-46.0 % LAB 788-0([facility]) ERYTHROCYTE DISTRIBUTION WIDTH:RATIO:PT:R BC:QN:AUTOMATED COUNT 15.1 High 10.9-14.2 % LAB 785-6([facility]) ERYTHROCYTE MEAN CORPUSCULAR HEMOGLOBIN:ENTMA SS:PT:RBC:QN:AUT OMATED COUNT 29.9 Normal 27.0-34.0 pg LAB 786-4([facility]) ERYTHROCYTE MEAN CORPUSCULAR HEMOGLOBIN CONCENTRATION:MC NC:PT:RBC:QN:AUT OMATED COUNT 33.1 Normal 31.4-36.0 gm/dL LAB 787-2([facility]) ERYTHROCYTE MEAN CORPUSCULAR VOLUME:ENTVOL:PT :RBC:QN:AUTOMATE D COUNT 90.2 Normal 80.0-100.0 fL LAB 22114-6([facility]) PLATELET MEAN VOLUME:ENTVOL:PT :BLD:QN:AUTOMATE D COUNT 10.1 Normal 6.4-10.8 fL LAB 777-3([facility]) PLATELETS:NCNC:P T:BLD:QN:AUTOMAT ED COUNT 183.0 Normal 150.0-500.0 E9/L LAB 30227-1([facility]) NEUTROPHILS/100 LEUKOCYTES:NFR:P T:BLD:QN: 64.2 Normal 36.0-75.0 % LAB 731-0([facility]) LYMPHOCYTES:NCNC :PT:BLD:QN:AUTOM ATED COUNT 26.6 Normal 14.0-50.0 % LAB 742-7([facility]) MONOCYTES:NCNC:P T:BLD:QN:AUTOMAT ED COUNT 0.5 Normal 0.2-1.0 E9/L LAB 713-8([facility]) EOSINOPHILS/100 LEUKOCYTES:NFR:P T:BLD:QN:AUTOMAT ED COUNT 3.1 Normal 0.0-8.0 % LAB 704-7(LOINC) BASOPHILS:NCNC:P T:BLD:QN:AUTOMAT ED COUNT 0.6 Normal 0.0-2.0 % LAB 751-8(LOINC) NEUTROPHILS:NCNC :PT:BLD:QN:AUTOM ATED COUNT 5.8 Normal 2.0-7.5 E9/L LAB 26010-2([facility]) LYMPHOCYTES:NCNC :PT:BLD:QN: 2.4 Normal 1.0-4.0 E9/L LAB 99112-7(INC) EOSINOPHILS:NCNC :PT:BLD:QN: 0.3 Normal 0.0-0.5 E9/L LAB 38136-6(INC) BASOPHILS/LEUKOC YTES:NFR.DF:PT:B LD:QN:AUTOMATED COUNT 0.1 Normal 0.0-0.2 E9/L Performed By: #### [id number] # ### [facility] [address] [place] [address] LACTIC ACID Collected: 07/07/2024 6:23 PM Status: F Source: [facility] TYPE CODE TESTS RESULT OUT OF RANGE REFERENCE UNITS LAB 61409111([facility]) Lactic Acid Lvl 0.9 Normal 0.5-2.2 mmol/L Performed By: #### [id number] # ### [facility] [address] [place] [address] CK Collected: 6:23 PM Status: F Source: [facility] TYPE CODE TESTS RESULT OUT OF RANGE REFERENCE UNITS LAB [id number]([facility]) Total CK 149 Normal 14-261 Int._Un it/ L Performed By: #### [id number] # ### [facility] [address] [place] [address] MYOGLOBIN Collected: 4 6:23 PM Status: F Source: [facility] TYPE CODE TESTS RESULT OUT OF RANGE REFERENCE UNITS LAB 27119450([facility]) Myoglobin 128 High <=69 ng/mL Performed By: #### [id number] # ### [facility] [address] [place] [address] ETHANOL Collected: 4 6:23 PM Status: F Source: [facility] TYPE CODE TESTS RESULT OUT OF RANGE REFERENCE UNITS LAB 07977447([facility]) Ethanol Lvl <10 Normal <=11 mg/d L Performed By: #### [id number] # ### [facility] [address] [place] [address] CBC W/ AUTO DIFF Collected: 07/07/2024 6:23 PM Statu s: C Source: [facility] TYPE CODE TESTS RESULT OUT OF RANGE REFERENCE UNITS LAB 70149-7([facility]) LEUKOCYTES^^EMELY ECTED FOR NUCLEATED ERYTHROCYTES:NCN C:PT:BLD:QN:AUTO MATED COUNT 9.1 Normal 4.0-11.0 E9/L Result Comment: Collection d ate/time has been modified to: 18:23:00. Previous collection date/time: 18:45:00. LAB 789-8([facility]) ERYTHROCYTES:NCN C:PT:BLD:QN:AUTO MATED COUNT 4.2 Low 4.3-5.9 E12/L Result Comment: Collection d ate/time has been modified to: 18:23:00. Previous collection date/time: 18:45:00. LAB 718-7([facility]) HEMOGLOBIN:MCNC: PT:BLD:QN: 12.7 Normal 12.0-16.0 gm/dL Result Comment: Collection d ate/time has been modified to: 18:23:00. Previous collection date/time: 18:45:00. LAB 4544-3([facility]) HEMATOCRIT:VFR:P T:BLD:QN:AUTOMAT ED COUNT 38.3 Normal 34.0-46.0 % Result Comment: Collection d ate/time has been modified to: 18:23:00. Previous collection date/time: 18:45:00. LAB 788-0([facility]) ERYTHROCYTE DISTRIBUTION WIDTH:RATIO:PT:R BC:QN:AUTOMATED COUNT 15.1 High 10.9-14.2 % Result Comment: Collection d ate/time has been modified to: 18:23:00. Previous collection date/time: 18:45:00. LAB 785-6([facility]) ERYTHROCYTE MEAN CORPUSCULAR HEMOGLOBIN:ENTMA SS:PT:RBC:QN:AUT OMATED COUNT 29.9 Normal 27.0-34.0 pg Result Comment: Collection d ate/time has been modified to: 18:23:00. Previous collection date/time: 18:45:00. LAB 786-4([facility]) ERYTHROCYTE MEAN CORPUSCULAR HEMOGLOBIN CONCENTRATION:MC NC:PT:RBC:QN:AUT OMATED COUNT 33.1 Normal 31.4-36.0 gm/dL Result Comment: Collection d ate/time has been modified to: 18:23:00. Previous collection date/time: 18:45:00. LAB 787-2([facility]) ERYTHROCYTE MEAN CORPUSCULAR VOLUME:ENTVOL:PT :RBC:QN:AUTOMATE D COUNT 90.2 Normal 80.0-100.0 fL Result Comment: Collection d ate/time has been modified to: 18:23:00. Previous collection date/time: 18:45:00. LAB 45305-5([facility]) PLATELET MEAN VOLUME:ENTVOL:PT :BLD:QN:AUTOMATE D COUNT 10.1 Normal 6.4-10.8 fL Result Comment: Collection d ate/time has been modified to: 18:23:00. Previous collection date/time: 18:45:00. LAB 777-3([facility]) PLATELETS:NCNC:P T:BLD:QN:AUTOMAT ED COUNT 183.0 Normal 150.0-500.0 E9/L Result Comment: Collection d ate/time has been modified to: 18:23:00. Previous collection date/time: 18:45:00. LAB 60101-7([facility]) NEUTROPHILS/100 LEUKOCYTES:NFR:P T:BLD:QN: 64.2 Normal 36.0-75.0 % Result Comment: Collection d ate/time has been modified to: 18:23:00. Previous collection date/time: 18:45:00. LAB 731-0([facility]) LYMPHOCYTES:NCNC :PT:BLD:QN:AUTOM ATED COUNT 26.6 Normal 14.0-50.0 % Result Comment: Collection d ate/time has been modified to: 18:23:00. Previous collection date/time: 18:45:00. LAB 742-7([facility]) MONOCYTES:NCNC:P T:BLD:QN:AUTOMAT ED COUNT 0.5 Normal 0.2-1.0 E9/L Result Comment: Collection d ate/time has been modified to: 18:23:00. Previous collection date/time: 18:45:00. LAB 713-8([facility]) EOSINOPHILS/100 LEUKOCYTES:NFR:P T:BLD:QN:AUTOMAT ED COUNT 3.1 Normal 0.0-8.0 % Result Comment: Collection d ate/time has been modified to: 18:23:00. Previous collection date/time: 18:45:00. LAB 704-7([facility]) BASOPHILS:NCNC:P T:BLD:QN:AUTOMAT ED COUNT 0.6 Normal 0.0-2.0 % Result Comment: Collection d ate/time has been modified to: 18:23:00. Previous collection date/time: 18:45:00. LAB 751-8([facility]) NEUTROPHILS:NCNC :PT:BLD:QN:AUTOM ATED COUNT 5.8 Normal 2.0-7.5 E9/L Result Comment: Collection d ate/time has been modified to: 18:23:00. Previous collection date/time: 18:45:00. LAB 10221-1([facility]) LYMPHOCYTES:NCNC :PT:BLD:QN: 2.4 Normal 1.0-4.0 E9/L Result Comment: Collection d ate/time has been modified to: 18:23:00. Previous collection date/time: 18:45:00. LAB 13022-1([facility]) EOSINOPHILS:NCNC :PT:BLD:QN: 0.3 Normal 0.0-0.5 E9/L Result Comment: Collection d ate/time has been modified to: 18:23:00. Previous collection date/time: 18:45:00. LAB 06523-6([facility]) BASOPHILS/LEUKOC YTES:NFR.DF:PT:B LD:QN:AUTOMATED COUNT 0.1 Normal 0.0-0.2 E9/L Result Comment: Collection d ate/time has been modified to: 18:23:00. Previous collection date/time: 18:45:00. Performed By: #### [id number] # ### [facility] [address] [place] [address] PT & PTT Collected: 4 6:23 PM Status: F Source: [facility] TYPE CODE TESTS RESULT OUT OF RANGE REFERENCE UNITS LAB 5902-2([facility]) COAGULATION TISSUE FACTOR INDUCED:TIME:P T:PPP:QN:COAG 10.3 Normal 9.4-12.5 second(s ) Result Comment: 15 days - 4 weeks 1 - [...] the same coagulation reagent and instrumentation as [facility]. Currently there are no coagulation studies available worldwide for children to 14 days, and no normal ranges. [facility] 97938[facility] COAGULATION SURFACE INDUCED:TIME:P T:PPP:QN:COAG 31.1 Normal 25.1-36.5 second(s ) Result Comment: Parameter 15 days - 4 weeks 1 - [...] the same coagulation reagent and instrumentation as [facility]. Currently there are no coagulation studies available worldwide for children to 14 days, and no normal ranges. Heparin therapeutic range (represented by Anti-Factor Xa activity of 0.2 - 0.4 U/mL) corresponds to PTT of 56.6 - 109.0 sec. LAB 6301-6([facility]) COAGULATION TISSUE FACTOR INDUCED.INR:RE LTIME:PT:PPP:Q N:COAG 0.92 Unknown Result Comment: INR results are specifically intended to assess patients stabilized on long-term Anticoagulation therapy suggested INR???s ???Less Intensive Anticoagulation??? 2.0 ??? 3.0 Conventional Range 3.0 ??? 4.5 Performed By: #### [id number] #### [facility] [address] [place] [address] HEP FUNC PANEL Collected: 07/07/2024 6:23 PM Status: F Source: [facility] TYPE CODE TESTS RESULT OUT OF RANGE REFERENCE UNITS LAB 1744-2([facility]) ALANINE AMINOTRANSFERA SE:CCNC:PT:SER /PLAS:QN:NO ADDITION OF P-5'-P 11 Normal 6-46 Int._Unit /L LAB 1920-8([facility]) ASPARTATE AMINOTRANSFERA SE:CCNC:PT:SER /PLAS:QN: 13 Normal 5-43 Int._Unit /L LAB 1751-7([facility]) ALBUMIN:MCNC:P T:SER/PLAS:QN: 3.9 Normal 3.3-5.0 gm/dL LAB 24873-0([facility]) GLOBULIN:MCNC: PT:SER:QN:CALC ULATED 2.8 Normal 1.4-4.0 gm/dL LAB 39903-1([facility]) ALBUMIN/GLOBUL IN:MCRTO:PT:SE R:QN: 1.4 Normal 1.1-2.2 LAB 6768-6([facility]) ALKALINE PHOSPHATASE:CC NC:PT:SER/PLAS :QN: 112 High 21-98 Int._Unit /L LAB 1968-7([facility]) BILIRUBIN.GLUC URONIDATED+RIMA IRUBIN.ALBUMIN BOUND:MCNC:PT: SER/PLAS:QN: 0.1 Normal 0.0-0.4 mg/dL LAB 04441-8([facility]) BILIRUBIN.NON- GLUCURONIDATED :MSCNC:PT:SER/ PLAS:QN: 0.3 Normal 0.1-0.9 mg/dL LAB 1975-2([facility]) BILIRUBIN:MCNC :PT:SER/PLAS:Q N: 0.4 Normal 0.0-1.1 mg/dL LAB 2885-2([facility]) PROTEIN:MCNC:P T:SER/PLAS:QN: 6.7 Normal 6.0-7.8 gm/dL Performed By: #### [id number] # ### [facility] [address] [place] [address] TROPONIN Collected: 4 6:23 PM Status: F Source: [facility] TYPE CODE TESTS RESULT OUT OF RANGE REFERENCE UNITS LAB 73796172([facility]) Troponin HS 10.70 Normal 10.10-27.10 pg/mL Result Comment: The 95% CI ( Confidence Interval) PPV (Positive Predictive Value) for myocardial infarction in females is 38 pg/mL, in males 51 pg/mL. The results should be used in conjunction with clinical conditions of myocardial infarction. (Access High Sensitivity Troponin I Instructions For Use, Lalito Torri, February 2018) Performed By: #### [id number] # ### [facility] [address] [place] [address] BMP Collected: 6:23 PM Status: F Source: [facility] TYPE CODE TESTS RESULT OUT OF RANGE REFERENCE UNITS LAB 2345-7([facility]) GLUCOSE:MCNC :PT:SER/PLAS :QN: 154 Normal 55-199 mg/dL LAB 3094-0([facility]) UREA NITROGEN:MCN C:PT:SER/LUZ ELENA S:QN: 23 High 5-21 mg/dL LAB 2160-0([facility]) CREATININE:M CNC:PT:SER/P LAS:QN: 1.8 High 0.5-1.3 mg/dL LAB 3097-3([facility]) UREA NITROGEN/CRE ATININE:MRTO :PT:SER/PLAS :QN: 13 Normal 10-20 No Units LAB 72831-3([facility]) CALCIUM:MCNC :PT:SER/PLAS :QN: 9.1 Normal 8.9-11.1 mg/dL LAB 2951-2([facility]) SODIUM:SCNC: PT:SER/PLAS: QN: 137 Normal 135-145 mmol/L LAB 2823-3([facility]) POTASSIUM:SC NC:PT:SER/PL :QN: 3.6 Normal 3.5-5.3 mmol/L LAB 2075-0([facility]) CHLORIDE:SCN C:PT:SER/LUZ ELENA S:QN: 104 Normal 101-111 mmol/L LAB 8-9([facility]) CARBON DIOXIDE:SCNC :PT:SER/PLAS :QN: 26 Normal 21-31 mmol/L LAB 23239-3([facility]) ANION GAP:SCNC:PT: SER/PLAS:QN: 11 Normal 6-16 mEq/L Performed By: #### [id number] # ### [facility] [address] [place] [address] B HCG QUAL Collected: 07/07/2024 6:23 PM Status: F Source: [facility] TYPE CODE TESTS RESULT OUT OF RANGE REFERENCE UNITS LAB 2110-5([facility]) CHORIOGONADOT ROPIN.BETA SUBUNIT ( TEST):PRTHR:P T:SER/PLAS:OR D: NEGATIVE Normal Performed By: #### [id number] #### [facility] [address] [place] [address] EGFR Collected: 6:23 PM Status: F Source: [facility] TYPE CODE TESTS RESULT OUT OF RANGE REFERENCE UNITS LAB 85281492([facility]) eGFR 30 Low >=59 mL/min/1 .7 3 m2 Performed By: #### [id number] #### [facility] [address] [place] [address] MAGNESIUM Collected: 07/07/2024 6:23 PM Status: F Source: [facility] TYPE CODE TESTS RESULT OUT OF RANGE REFERENCE UNITS LAB 31675-0([facility]) MAGNESIUM:MCN C:PT:SER/PLAS :QN: 2.2 Normal 1.3-2.4 mg/dL Performed By: #### [id number] # ### [facility] [address] [place] [address] LIPASE LEVEL Collected: 07/07/2024 6:23 PM Status: F Source: [facility] TYPE CODE TESTS RESULT OUT OF RANGE REFERENCE UNITS LAB 3040-3([facility]) TRIACYLGLYCEROL LIPASE:CCNC:PT:SER/ PLAS:QN: 22 Normal 13-58 unit/L Performed By: #### [id number] # ### [facility] [address] [place] [address] ALLERGIES DATE TYPE / CODE NAME / CODE REACTION SEVERITY SOURCE 04/07/2025 Drug Allergy/416 713696(SNOM ED CT) propoxyphene/W9197 51992(RXNORM) Itching Unknown [facility] 04/07/2025 Drug Allergy/416 064243(SNOM ED CT) zolmitriptan/W3385 80660(RXNORM) felt like I was on fire Unknown [facility] 04/07/2025 Drug Allergy/416 231911(SNOM ED CT) codeine/W954208806 (RXNORM) Nausea Unknown [facility] 04/07/2025 Drug Allergy/416 191723(SNOM ED CT) hydrocodone/E21150 1554(RXNORM) Itching Unknown [facility] 04/07/2025 Drug Allergy/416 249028(SNOM ED CT) oxycodone/B5419262 58(RXNORM) Drowsy Unknown [facility] 04/07/2025 Drug Allergy/416 337378(SNOM ED CT) prednisone/S664067 164(RXNORM) Agitated Unknown [facility] 04/07/2025 Drug Allergy/416 619076(SNOM ED CT) metformin/I6426129 34(RXNORM) Diarrhea Unknown [facility] 04/07/2025 Drug Allergy/416 212032(SNOM ED CT) penicillin G/Z220847994(RXNOR M) welts itching Unknown [facility] 11/23/2024 Drug Allergy/416 988613(SNOM ED CT) acetaminophen/F006 469886(RXNORM) Itching Unknown [facility] 08/20/2024 DRUG/880973 003(SNOMED CT) PROPOXYPHENE N-ACETAMINOPHEN Other [facility] 08/20/2024 DRUG INGREDI/419 297780(SNOM ED CT) METFORMIN Diarrhea [facility] 08/20/2024 DRUG/180171 003(SNOMED CT) OXYCODONE-ACETAMIN OPHEN Other [facility] 07/13/2021 DRUG INGREDI/419 234966(SNOM ED CT) CODEINE Rash~Unknown Low [facility] 11/30/2016 DRUG INGREDI/419 714788(SNOM ED CT) PROPOXYPHENE Itching~Unknown Medium [facility] 07/30/2014 DRUG/659694 003(SNOMED CT) HYDROCODONE-ACETAM INOPHEN Unknown Medium [facility] 07/30/2014 Drug Class/72420 1003(SNOMED CT) PENICILLINS Unknown Medium [facility] /47341477 6(SNOMED CT) codeine Nausea [facility] /73193123 6(SNOMED CT) Percocet sleeps a long time Moderate (Severity Modifier) (Qualifier Value) [facility] PRAKASH86126139 6(SNOMED CT) penicillins Hives~Difficult y breathing at rest [facility] PRAKASH30807856 6(SNOMED CT) Darvon itching [facility] PRAKASH14505847 6(SNOMED CT) Vicodin itching , sick to stomach Moderate (Severity Modifier) (Qualifier Value) [facility] BAKARI 6(SNOMED CT) Darvocet-N 100 itching [facility] ENCOUNTERS ADMIT/DISCHARGE ACCOUNT NUMBER ADMITTING ENCOUNTER CLASS LOCATION SOURCE 04/15/2025/04/15/20 [id number] Ashley Ospina [facility] PMCRoom: PR1 [facility] 04/07/2025/04/07/20 [id number] [facility]/03/22/20 [id number] Ashley Ospina [facility] PMCRoom: DISCH [facility] 03/08/2025/03/08/20 [id number] [place]ulatory [place] [facility] 01/28/2025/01/29/20 [id number] Ambulatory Building:CCB [facility] 12/25/2024/12/26/19 [id number] DO Brice Oliva [facility] :ASRoom: TU90Bnr: 01 [facility] 12/25/2024 [id number] DO Brice Oliva [facility] :ASRoom: GN71Bbj: 01 [facility] 12/22/2024/12/23/19 [id number] [facility] 12/08/2024/12/09/19 [id number] DO Brice Oliva [facility] :FT PST [facility] 11/26/2024/11/27/19 [id number] Ambulatory Building:[facility] 11/16/2024/11/17/19 25 [id number] Ambulatory Building:NOM S SH ENDO [facility] 11/14/2024/11/15/19 25 [id number] [facility] 11/09/2024/11/10/19 25 [id number] Ambulatory Building:NOM SSHMR [facility] EPIC 11/09/2024/11/10/19 25 [id number] Ambulatory Building:NOM S SH ENT [facility]IC 11/05/2024/11/06/19 25 [id number] Ambulatory Building:NOM S ORTHO [facility] EPIC 10/30/2024/10/31/19 25 [id number] [facility] 10/13/2024/10/14/19 25 [id number] Din[facility] 09/21/2024/09/21/19 25 [id number] [facility] 09/14/2024/09/14/19 25 [id number] [facility] 09/14/2024/09/14/19 25 [id number] Olman De [facility] 09/07/2024/09/07/19 25 [id number] [place]ulatory [place] : Exam 3 [facility] 09/03/2024/09/03/19 25 [id number] Ambulatory Building:BSR NEURO [facility] EPIC 08/31/2024/08/31/19 25 [id number] Ambulatory Building:SWS ORTHO [facility] EPIC 08/31/2024/08/31/19 [id number] Ambulatory Building:SWS ORTHOAO [facility] EPIC 08/24/2024/08/24/19 [id number] Ambulatory Building:BSR NEURO [facility] EPIC 08/20/2024/08/20/19 25 [id number] Ambulatory Building:CCB [facility] 08/20/2024/08/20/19 [id number] Ambulatory Building:ST NEURO [facility] 08/18/2024/08/18/19 [id number] Ambulatory Building:NOM S SH ENDO [facility] 08/14/2024 [id number] Ambulatory [place] [facility] 08/14/2024 [id number] [place]ulatory [place] [facility] 07/07/2024 [id number] Emergency [facility]EDRoom: ED-02Bed: CD:[id number] [facility] 07/07/2024 [id number] Emergency [facility] :EDRoom: ED-02Bed: CD:[id number] [facility] 07/07/2024 [id number] Emergency [facility] :EDRoom: ED-02Bed: CD:[id number] [facility] 07/07/2024/07/07/20 24 [id number] Emergency [facility] :EDRoom: ED-02Bed: CD:[id number] [facility] 07/07/2024/07/07/20 24 [id number] Emergency [facility] :EDRoom: ED-02Bed: CD:[id number] [facility] 05/18/2024/05/18/20 24 [id number] Ambulatory Building:NOM S SH ENT [facility] EPIC PAYERS ENCOUNTER GUARANTOR PAYER SUBSCRIBER SOURCE 04/15/2025 VIRGEN SCHERER B: GARCÍA RDTel: ~ ~( 23 (HP) Primary Insurance:exozet Number: [id number] Date:9903-35-27AQ [address] [place] [id number]: VIRGEN Nunes [facility] 04/07/2025 Virgen Garciana-Pdidrzc48 [address] [place] [address]Fxi: (HP) Primary Insurance:[employer] Gold Plus HMOPolicy Number: [id number] Date:2810-91-96ZA [address] [address]BJ: Virgen Garciana-BloxsonDO B: [id number] [place] [address]Xrj: (HP) [facility] 04/07/2025 Secondary Insura nce:Self PayPolicy Number: Effective Date:2025-04-07 NOT GIVENUNK [facility] 03/22/2025 VIRGEN GARCIANA-BLOXSONDO B: GARCÍA RDTel: ~ ~( 99 (HP) Primary Insurance:HUMANAPolicy Number: [id number] Date:9837-11-01AC [address] [place] [address]WV: VIRGEN AMANDA-BLOXSONUN K [facility] 03/08/2025 VIRGEN GARCIANA-BLOXSONDO B: GARCÍA RDTel: ~ ~( 53 (HP) Primary Insurance:HUMANAPolicy Number: [id number] Date:2688-25-03MG [address] [address]YA: VIRGEN GARCIANA-BLOXSONUN Manju [facility] 01/28/2025 Primary Insuranc e:HUMANA MEDICARE ADVANTAGEPolicy Number: [id number] Date:2022-07-29 VIRGEN AMANDA BLOXSONDOB: [id number] [address] [place] [address] [facility] 12/25/2024 VIRGEN GARCIANA-BLOXSONDO B: GARCÍA RDTel: ~ ~( 40 (HP) Primary Insurance:HUMANAPolicy Number: [id number] Date:8992-95-54RQ [address] [address]ZT: VIRGEN GARCIANA-BLOXSONUN Manju [facility] 12/25/2024 VIRGEN GARCIANA-BLOXSONDO B: GARCÍA RDTel: ~ ~( 40 (HP) Primary Insurance:HUMANAPolicy Number: [id number] Date:0350-76-15EJ [address] [address]GE: VRIGEN GARCIANA-BLOXSONUN Manju [facility] 12/22/2024 Virgen Amanda-Seuiotr45 [address] [facility] [place] [address]Yab: (HP) Primary Insurance:Self PayPolicy Number: Effective Date:2024-12-22 [facility]24 VIRGEN GARCIANA-BLOXSONDO B: GARCÍA RDTel: ~ ~( 40 (HP) Primary Insurance:HUMANAPolicy Number: [id number] Date:0827-88-40DM [address] [address]AB: VIRGEN GARCIANA-BLOXSONUN Manju [facility] 11/26/2024 VIRGEN AMANDA BLOXSONDOB: [place] [address]Zqj: (HP)[id number] HERDOB: [place] [address]Ucf: ~(4 19 (HP) Primary Insurance:HUMANA MEDICARE ADVANTAGEPolicy Number: [id number] Date:2022-07-29 VIRGEN AMANDA BLOXSONDOB: [id number] [address] [address] [facility] 11/16/2024 VIRGEN AMANDA BLOXSONDOB: [place] [address]Uly: (HP)[id number] HERDOB: [place] [address]Vjy: ~(4 19 (HP) Primary Insurance:HUMAN MEDICARE ADVANTAGEPolicy Number: [id number] Date:2022-07-29 VIRGEN AMANDA BLOXSONDOB: [id number] [address] [place] [address] [facility] EP[facility] 11/14/2024 Virgen Amanda-Tmqjjng70 [address] [place] [address]Tlx: (HP) Primary Insurance:Self PayPolicy Number: Effective Date:2024-11-14 [facility] 11/09/2024 VIRGEN AMANDA BLOXSONDOB: [place] [address]Vab: (HP)[id number] HERDOB: [place] [address]Ebe: ~(2 19 (HP) Primary Insurance:HUMANA MEDICARE ADVANTAGEPolicy Number: [id number] Date:2022-07-29 VIRGEN AMANDA BLOXSONDOB: [id number] [address] [place] [address] [facility] [facility] EPIC 11/09/2024 VIRGEN AMANDA BLOXSONDOB: [place] [address]Xyt: (HP)[id number] HERDOB: [place] [address]Oed: ~(4 19 (HP) Primary Insurance:HUMANA MEDICARE ADVANTAGEPolicy Number: [id number] Date:2022-07-29 VIRGEN AMANDA BLOXSONDOB: [id number] [address] [place] [address] [facility] EPIC 11/05/2024 VIRGEN AMANDA BLOXSONDOB: [place] [address]Ioi: (HP)[id number] HERDOB: [place] [address]Mdu: ~(4 19 (HP) Primary Insurance:HUMANA MEDICARE ADVANTAGEPolicy Number: [id number] Date:2022-07-29 VIRGEN AMANDA BLOXSONDOB: [id number] [address] [place] [address] [facility] EPIC 10/30/2024 Virgen Amanda-Lyknhfq47 [address] [address]Szj: (HP) Primary Insurance:Self PayPolicy Number: Effective Date:2024-10-30 NOT GIVENUNK [facility] 10/13/2024 Virgen Amanda-Auvzdvc49 [address] [place] [address]Onu: (HP) Primary Insurance:Humana Gold Plus HMOPolicy Number: [id number] Date:8147-86-47VC [address] [place] [address]HS: Virgen Amanda-BloxsonDO B: [id number] [address] [place] [address]Nup: (HP) [facility] 10/13/2024 Secondary Insura nce:Self PayPolicy Number: Effective Date:2024-10-13 NOT GIVENUNK [facility] 09/21/2024 Virgen Garciana-Ubknvuk53 [address] [place] [address]Tig: () Primary Insurance:Humana Gold Plus HMOPolicy Number: [id number] Date:0914-26-14ON [address] [place] [address]NR: Virgen Garciana-BloxsonDO B: [id number] 0 [address] [address]Xch: () [facility] 09/21/2024 Secondary Insura nce:Self PayPolicy Number: Effective Date:2024-08-13 NOT GIVENUNK [facility] 09/14/2024 Virgen Garciana-Yycdeyj66 [address] [address]Rbe: () Primary Insurance:Humana Gold Plus HMOPolicy Number: [id number] Date:9200-04-25SO [address] [place] [address]OU: Virgen Garciana-BloxsonDO B: [id number] [address] [place] [address]Bvp: () [facility] 09/14/2024 Secondary Insura nce:Self PayPolicy Number: Effective Date:2024-09-14 NOT GIVENUNK [facility] 09/14/2024 Virgen Garciana-Buhwmbk22 [address] [address]Zxt: () Primary Insurance:Humana Gold Plus HMOPolicy Number: [id number] Date:9344-15-14ES [address] [place] [address]OI: Virgen Amanda-BloxsonDO B: [id number] 0 [address] [address]Lce: (HP) [facility] 09/14/2024 Secondary Insura nce:Self PayPolicy Number: Effective Date:2024-08-28 NOT GIVENUNK [facility] 09/07/2024 VIRGEN AMANDA-BLOXSONDO B: [place] RDTel: ~ ~( 41 (HP) Primary Insurance:HUMANAPolicy Number: [id number] Date:5944-78-79MP [address] [place] [address]ZM: VIRGEN AMANDA-BLOXSONUN K [facility] 09/03/2024 VIRGEN AMANDA BLOXSONDOB: [place] [address]Fex: (HP)[id number] HERDOB: [place] [address]Ovv: (HP) Primary Insurance:HUMANA MEDICARE ADVANTAGEPolicy Number: [id number] Date:2022-07-29 VIRGEN AMANDA BLOXSONDOB: [id number] 0 [place] [address] [facility] 08/31/2024 VIRGEN AMANDA BLOXSONDOB: [place] [address]Azr: (HP)[id number] HERDOB: [place] [address]Qka: (HP) (WP) Primary Insurance:HUMANA MEDICARE ADVANTAGEPolicy Number: [id number] Date:2022-07-29 VIRGEN AMANDA BLOXSONDOB: [id number] 0 [place] [address] [facility] EPIC 08/31/2024 VIRGEN AMANDA BLOXSONDOB: [place] [address]Jod: (WP)[id number] HERDOB: [place] [address]Gof: (HP) (WP) Primary Insurance:HUMANA MEDICARE ADVANTAGEPolicy Number: [id number] Date:2022-07-29 VIRGEN AMANDA BLOXSONDOB: [id number] 0 [place] [address] [facility] EPIC 08/24/2024 VIRGEN AMANDA BLOXSONDOB: [place] [address]Ayv: (WP)[id number] HERDOB: [place] [address]Cjy: (HP) (WP) Primary Insurance:HUMANA MEDICARE ADVANTAGEPolicy Number: [id number] Date:2022-07-29 VIRGEN AMANDA BLOXSONDOB: [id number] 0 [place] [address] [facility] EPIC 08/20/2024 Primary Insuranc e:HUMANA MEDICARE ADVANTAGEPolicy Number: [id number] Date:2022-07-29 VIRGEN AMANDA BLOXSONDOB: [id number] 0 [place] [address] [facility] 08/20/2024 VIRGEN AMANDA BLOXSONDOB: [place] [address]Vok: (WP)[id number] [place]DOB[place] [address]Fyh: (HP) (WP) Primary Insurance:HUMAN MEDICARE ADVANTAGEPolicy Number: [id number] Date:2022-07-29 VIRGEN AMANDA BLOXSONDOB: [id number] 0 [place] [address] [facility] EPIC 08/18/2024 VIRGEN AMANDA BLOXSONDOB: [place] [address]Iah: (WP)[id number] HERDOB: [place] [address]Jut: (HP) (WP) Primary Insurance:HUMAN MEDICARE ADVANTAGEPolicy Number: [id number] Date:2022-07-29 VIRGEN AMANDA BLOXSONDOB: [id number] 0 [place] [address] [facility] 07/07/2024 VIRGEN AMANDA-BLOXSONDO B: [place] RDTel: (HP) Primary Insurance:Worker's CompensationPolicy Number: [id number] Date: Officenter [address] [place] [address]RW: 614 VIRGEN GARCIANA-BLOXSONUN Manju [facility] 07/07/2024 Secondary Insurance:HUMANAPolicy Number: [id number] Date:0145-70-71JR [address] [place] [address]DP: VIRGEN AMANDA-BLOXSONUN K [facility] 07/07/2024 VIRGEN GARCIANA-BLOXSONDO B: GARC[place] RDTel: (HP) Primary Insurance:HUMANAPolicy Number: [id number] Date:8180-74-38GW [address] [place] [address]HN: VIRGEN AMANDA-BLOXSONUN Manju [facility] 07/07/2024 VIRGEN GARCIANA-BLOXSONDO B: [place] RDTel: (HP) Primary Insurance:Worker's CompensationPolicy Number: [id number] Date: Officenter [address] [place] [address]OU: 614 VIRGEN GARCIANA-BLOXSONUN Manju [facility] 07/07/2024 Secondary Insurance:HUMANAPolicy Number: [id number] Date:2877-06-49GN [address] [place] [address]LT: VIRGEN GARCIANA-BLOXSONUN Manju [facility] 07/07/2024 VIRGEN GARCIANA-BLOXSONDO B: GARC[place] RDTel: ~ ~( 41 (HP) Primary Insurance:Worker's CompensationPolicy Number: [id number] Date: Officenter [address] [place] [address]WY: 614 VIRGEN Rubio TRIZNA-BLOXSONUN Manju [facility] 07/07/2024 Secondary Insurance:HUMANAPolicy Number: [id number] Date:6084-53-46AZ [address] [place] [address]FW: VIRGEN Rubio TRIZNA-BLOXSONUN Manju [facility] 07/07/2024 VIRGEN GARCIANA-BLOXSONDO B: GARCÍ[place] RDTel: ~ ~( 41 (HP) Primary Insurance:HUMANAPolicy Number: [id number] Date:5038-96-12VD [address], [place] [address]QU: VIRGEN GONZALESUN K [facility] 05/18/2024 VIRGEN S VASILIY BLOXSONDOB: [place] [address]Bct: (WP)[id number] HERDOB: [place] [address]Qkv: () (WP) Primary Insurance:[facility] MEDICARE ADVANTAGEPolicy Number: [id number] Date:2022-07-29 VIRGEN Rubio VASILIY ARCHERXSONDOB: [id number] [address] [place] [address] [facility] EPIC
--- OUTSIDE RECORDS SUMMARY | 2025-04-19 07:30 | XMS_ITS ---
Author Organization [facility] in [place] Address [address] [place] [address] Care Team Providers Care Traffic Circuit Engineer Name Role Phone Aggie Machuca Primary Care Provider Allergies Allergen (clinical drug ingredient) Drug/Non Drug Allergy documented on EMR Reaction Allergy Type Onset Date Status Darvocet-N 50 Unknown Drug Allergy Act arina Vicodin Unknown Drug Allergy Active codeine Codeine Unknown Drug Allergy Active cefuroxime Cefuroxime itching Drug Allergy Activ e Penicillin Unknown Drug Allergy Active REASON FOR VISIT f/u stitch removal left hand index finger- 6 sutures, Patient states she has been falling a lot- pain in the right leg and it gives out- also fell head first out of recliner, PM giving spinal injection on the May 10- also working on getting surgery Medications Medication SIG (Take, Route, Frequency, Duration) Notes Start Date End Date Status busPIRone HCl 7.5 MG TAKE 1 TABLET TWICE DAILY; Duration: 90 Active Furosemide 20 MG TAKE 1 TABLET ONE TIME DAILY NEEDED; Duration: 30 days Active 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 A 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 Dexcom G7 Sensor Act arina FLUoxetine HCl 20 MG TAKE 1 CAPSULE EVER Y DAY; Duration: 90 Active Aspirin 81 81 MG 1 tablet Orally Once a day Active Advil Cold/Sinus 30-200 MG 1 tablet as n eeded Orally every 6 hrs PRN Active Ozempic (1 MG/DOSE) 4 MG/3ML 1 mg Subcut aneous weekly; Duration: 30 days 01/18/2025 Not-Taking Alendronate Sodium 70 MG TAKE 1 TABLET E VERY WEEK; Duration: 84 Active Albuterol Sulfate HFA 108 (90 Base) MCG/ACT 2 puff as needed Inhalation every 4 hrs; Duration: 30 days 12/11/2023 Active True Metrix Air Glucose Meter w/Device USE DIRECTED; Duration: 90 Active traMADol HCl 50 MG 1 tablet as needed Orally every 8 hrs; Duration: 7 days 04/14/2025 Active True Metrix Level 1 Low USE DIRECTED WITH GLUCOSE METER; Duration: 90 Active True Metrix Blood Glucose Test - TEST BLOOD SUGAR THREE TIMES DAILY; Duration: 90 Active TRUEplus Lancets 33G - TEST BLOOD SUGAR THREE TIMES DAILY; Duration: 90 Active ReliOn Insulin Syringe 31G X 15/64 0.3 ML USE 1 ONCE DAILY DIRECTED; Duration: 30 Active Pregabalin 150 MG 1 capsule Orally 3 times a day; Duration: 30 days 03/05/2025 Active Simvastatin 40 MG TAKE 1 TABLET EVERY NIGHT; Duration: 90 Active Potassium Chloride Dipti ER 10 MEQ 1 tablet with food Orally Twice a day as needed with Lasix; Duration: 30 days 12/04/2024 Active Pen Opelika Active Opelika & Syringes - as directed Active NovoLIN N 100 UNIT/ML 22 units Subcutaneous bid Active Nitroglycerin 0.4 MG as directed Sublingual PRN Active Omeprazole 40 MG TAKE 1 CAPSULE ONE TIME DAILY 30 MINUTES BEFORE MORNING MEAL.; Duration: Active NovoLIN R FlexPen 100 UNIT/ML sliding scale Injection TID Active Methocarbamol 500 MG TAKE 1 TABLET BY MOUTH EVERY 8 HOURS NEEDED FOR MUSCLE SPASM Oral; Duration: 30 days Active Mupirocin 2 % 1 application Externally Twice a day; Duration: 5 days 02/09/2025 Active Mupirocin 2 % 1 application Externally Twice a day; Duration: 5 days Active Jardiance 25 MG TAKE 1 TABLET EVERY DAY; Duration: 90 Active Meclizine HCl 25 MG 1 tablet as needed Orally every 12 hrs; Duration: 30 days PRN Active hydroCHLOROthiazide 25 MG TAKE 1 TABLET EVERY MORNING; Duration: 90 Active Social History Tobacco Use: Social [...] in quitting? Not ready to heron t Vital Signs Weight 196.4 lbs 04/19/2025 Height 60 in 04/19/2025 Blood pressure systolic 130 mm Hg 04/19/20 25 Blood pressure diastolic 80 mm Hg 025 BMI 38.35 kg/m2 04/19/2025 Encounters Encounter Location Date Provider Diagnosis [facility] [address] [place] [address] 04/19/2025 Aggie Machuca Laceration of finger of right hand, subsequent encounter S61.219D ; Right leg pain M79.604 ; Falls W19.XXXA and Suture check Z48.89 Assessments Encounter Date Diagnosis (ICD Code) Assessment Notes Treatment Notes Treatment Clinical Notes Section Notes 04/19/2025 Laceration of finger of right hand, subsequent encounter (ICD-10 - S61.219D) 04/19/2025 Right leg pain (ICD-10 - M79.604) 04/19/2025 Falls (ICD-10 - W19.XXXA) offered PT consult wants to see how injections in back help use wheeled walker 04/19/2025 Suture check (ICD-10 - Z48.89) 6 sutures removed left index finger, patient tolerated well no signs of infections Plan Of Treatment Treatment Notes Assessment Notes Falls offered PT consult wants to see how injections in back help use wheeled walker Suture check 6 sutures removed left index finger, patient tolerated well no signs of infections Next Appt Details Follow Up: prn, Reason: Progress Notes * Virgen GRIFFIN SDOB :1955 (69 yo F)Acc No.[id number]:04/19/2025 Progress Note Patient: Lyudmila HOPSONHERLINDANiurkaVirgen DALEY Provider: Keke Machuca ([facility]), TONGUE TRIMMER :1955 A ge:69 Y S ex:Female Date:04/19/2025 [address] [phone] Check In:10:29 AM ESTCheck O ut:11:22 AM EST Subjective: * Chief Complaints: * 1 . F/u stitch removal left hand index finger- 6 sutures. 2. Patient states she has been falling a lot- pain in the right leg and it gives out- also fell head first out of recliner. 3. PM giving spinal injection on the May 10- also working on getting surgery. * HPI: G eneral: needs stitches removed has upcoming back injection contemplating surgery has wheeled walker now for unsteady legs. * ROS: G eneral/Constitutional: Fever d enies. [...] d enies. M usculoskeletal: Back pain a dmits, chronic with sciatica and leg weakness, worse at times. N elizabeth pain d enies. M uscle aches d enies. S kin: Patient admits s utures left index finger. R nicci d enies. S kin lesion(s) d enies. 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, un specified Modified On:12/06/2022 Status:confirmed R07.89 Other chest pain Modified On:12/06/2022U Status:confirmed R53.83 Fatigue Modified On:12/06/2022U Status:confirmed I10 Hypertension Modified On:04/15/2023 Status:confirmed F17.210 [...] On:11/20/2024U Status:confirmed E66.9 Class 2 obesity Modified On:11/20/2024 Status:confirmed E66.01 Morbid (severe) obes ity due to excess calories Modified On:01/18/2025U Status:confirmed M54.40 Low back pain with s ciatica Modified On:03/04/2025U Status:confirmed M54.30 Sciatica Modified On:03/18/2025W/U Status:confirmed * Medical History: L eft leg [...] . * Hospitalization/Major Diagno stic Procedure: [place] 11/20. * Family History: F ather: 90 [...] in quitting? 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 , Taking Pen Opelika , Taking Potassium Chloride Dipti ER 10 MEQ Tablet Extended Release 1 tablet with food Orally Twice a day as needed with Lasix , Taking Pregabalin 150 MG Capsule 1 capsule Orally 3 times a day , Taking ReliOn Insulin Syringe(Insulin Syringe-Needle U-100) 31G X 15/64 0.3 ML Miscellaneous USE 1 ONCE DAILY DIRECTED , Taking Simvastatin 40 MG Tablet TAKE 1 TABLET EVERY NIGHT , Taking traMADol HCl 50 MG Tablet 1 tablet as needed Orally every 8 hrs , Taking True Metrix Air Glucose Meter(Blood Glucose Monitoring Suppl) w/Device Kit USE DIRECTED , Taking True Metrix Blood Glucose Test(Glucose Blood) - Strip TEST BLOOD SUGAR THREE TIMES DAILY , Taking True Metrix Level 1(Blood Glucose Calibration) Low Solution USE DIRECTED WITH GLUCOSE METER , Taking TRUEplus Lancets 33G(Lancets) - Miscellaneous TEST BLOOD SUGAR THREE TIMES DAILY , Not-Taking/PRN Ozempic (1 MG/DOSE)(Semaglutide (1 MG/DOSE)) 4 MG/3ML Solution Pen-injector 1 mg Subcutaneous weekly , Medication List reviewed and reconciled with the patient * Allergies: P enicillin - Criticality High, Vicodin - Criticality High, Darvocet-N 50 - Criticality High, Codeine, Cefuroxime: itching - Allergy. Objective: * Vitals: W t:196.4lbs, Ht: 60 in, BP:130/80mm Hg, BMI:38.35Index. * Examination: G eneral Examinations: GENERAL APPEARANCE: a lert and oriented, in no acute distress, obese. EYES: c onjunctiva normal, sclera non-icteric. NOSE: n ormal external appearance. LUNGS: c lear to auscultation bilaterally. CARDIO: r egular rate and rhythm, S1, S2 normal. ABDOMEN: s oft, nontender. MUSCULOSKELETAL: u sing cane. SKIN: w arm and dry some bruising left index finger laceration satisfactorily well approx no signs of infection. Assessment: * Assessment: 1. L aceration of finger of right hand, subsequent encounter - S61.219D (Primary) ?2. R ight leg pain - M79.604 3 . F alls - W19.XXXA 4 .?Suture check - Z48.89 Plan: * Treatment: 2. S uture check Notes: 6 sutures removed left index finger, patient tolerated well no signs of infections * Procedure Codes: 3 079F DIAST BP 80-89 MM HG, 3075F SYST BP GE 130 - 139MM HG * Preventive Medicine: Screenings/Counseling: B IA ACTION PLAN Above Normal BMI Follow-up D ietary management education, guidance, and counseling * Follow Up: p rn * * Sign off status: Completed Visit Status: C HK (Check Out) true * Provider: Keke Machuca (WEND[facility]), TONGUE TRIMMER Date: 0 04/19/2025 Generated for Printi ng/Faomerg/eTransmitting on: 0 04/24/2025 03:33 PM EDT History and Physical Notes * HPI (History of Present Illness) Category Sub-Category Detail Notes Category Not es General needs stitches removed has upcoming back injection contemplating surgery has wheeled walker now for unsteady legs Examination Category Sub-Category Detail Notes Category Not es General Examinations GENERAL APPEARANCE: alert a nd oriented, in no acute distress, obese EYES: conjunctiva normal, sclera non-icteric EARS: NOSE: normal external appe arance THROAT: CARDIO: regular rate and rhy thm, S1, S2 normal LUNGS: clear to auscultatio n bilaterally ABDOMEN: soft, nontender SKIN: warm and dry some br uising left index finger laceration satisfactorily well approx no signs of infection BACK: MUSCULOSKELETAL: using cane LYMPH NODES:
--- OUTSIDE RECORDS SUMMARY | 2025-04-22 10:30 | XMS_ITS ---
Author Organization [facility] [place] Address [address] [place] [address] Care Team Providers Care Adventure Challenge Instructor Name Role Phone Aggie Machuca Primary Care Provider Allergies Allergen (clinical drug ingredient) Drug/Non Drug Allergy documented on EMR Reaction Allergy Type Onset Date Status Darvocet-N 50 Unknown Drug Allergy Act arina Vicodin Unknown Drug Allergy Active codeine Codeine Unknown Drug Allergy Active cefuroxime Cefuroxime itching Drug Allergy Activ e Penicillin Unknown Drug Allergy Active REASON FOR VISIT Presents to office alone for c/o fall at home. Fell trying to get out of chair at home yesterday. Has had 15-20 falls in the past year per patient, Needs F2F for a new lift chair, shower chair and rollator Medications Medication SIG (Take, Route, Frequency, Duration) Notes Start Date End Date Status Ozempic (1 MG/DOSE) 4 MG/3ML 1 mg Subcut aneous weekly; Duration: 30 days 01/18/2025 Not-Taking TRUEplus Lancets 33G - TEST BLOOD SUGAR THREE TIMES DAILY; Duration: 90 Active True Metrix Level 1 Low USE DIRECTED WITH GLUCOSE METER; Duration: 90 Active True Metrix Blood Glucose Test - TEST BLOOD SUGAR THREE TIMES DAILY; Duration: 90 Active True Metrix Air Glucose Meter w/Device USE DIRECTED; Duration: 90 Active Potassium Chloride Dipti ER 10 MEQ 1 tablet with food Orally Twice a day as needed with Lasix; Duration: 30 days 12/04/2024 Active traMADol HCl 50 MG 1 tablet as needed Orally every 8 hrs; Duration: 7 days 04/14/2025 Active Simvastatin 40 MG TAKE 1 TABLET EVERY NIGHT; Duration: 90 Active ReliOn Insulin Syringe 31G X 15/64 0.3 ML USE 1 ONCE DAILY DIRECTED; Duration: 30 Active Pregabalin 150 MG 1 capsule Orally 3 times a day; Duration: 30 days 03/05/2025 Active Pen Ethel Active Omeprazole 40 MG TAKE 1 CAPSULE ONE TIME DAILY 30 MINUTES BEFORE MORNING MEAL.; Duration: 90 Active NovoLIN R FlexPen 100 UNIT/ML sliding scale Injection TID Active NovoLIN N 100 UNIT/ML 22 units Subcutaneous bid Active Nitroglycerin 0.4 MG as directed Sublingual PRN Active Ethel & Syringes - as directed Active Mupirocin 2 % 1 application Externally Twice a day; Duration: 5 days 02/09/2025 Active Mupirocin 2 % 1 application Externally Twice a day; Duration: 5 days Active Meclizine HCl 25 MG 1 tablet as needed Orally every 12 hrs; Duration: 30 days PRN Active Methocarbamol 500 MG TAKE 1 TABLET BY MOUTH EVERY 8 HOURS NEEDED FOR MUSCLE SPASM Oral; Duration: 30 days Active hydroCHLOROthiazide 25 MG TAKE 1 TABLET EVERY MORNING; Duration: 90 Active Jardiance 25 MG TAKE 1 TABLET EVERY DAY; Duration: 90 Active FLUoxetine HCl 20 MG TAKE 1 CAPSULE EVER Y DAY; Duration: 90 Active Furosemide 20 MG TAKE 1 TABLET ONE TIME DAILY NEEDED; Duration: 30 days Active Dexcom G7 Sensor Act arina Dexcom G7 Post Doctoral Fellow A ctive Aspirin 81 81 MG 1 tablet Orally Once a day Active busPIRone HCl 7.5 MG TAKE 1 TABLET TWICE DAILY; Duration: 90 Active Alendronate Sodium 70 MG TAKE 1 TABLET E VERY WEEK; Duration: 84 Active Albuterol Sulfate HFA 108 (90 Base) MCG/ACT 2 puff as needed Inhalation every 4 hrs; Duration: 30 days 12/11/2023 Active Advil Cold/Sinus 30-200 MG 1 tablet as n eeded Orally every 6 hrs PRN Active Social History Tobacco Use: Social History [...] Problem Status W/U Status Risk Notes Problem Recurrent falls (181924594) Frequent falls (R29.6) Active confirmed Vital Signs Weight 192.8 lbs 04/22/2025 Height 60 in 04/22/2025 Blood pressure systolic 102 mm Hg 04/22/20 Blood pressure diastolic 64 mm Hg 025 BMI 37.65 kg/m2 04/22/2025 Encounters Encounter Location Date Provider Diagnosis [facility] [address] [place] [address] 04/22/2025 Aggie Machuca Lower extremity weakness M62.81 ; Frequent falls R29.6 and Sciatica M54.30 Assessments Encounter Date Diagnosis (ICD Code) Assessment Notes Treatment Notes Treatment Clinical Notes Section Notes 04/22/2025 Lower extremity weakness (ICD-10 - M62.81) Patient has difficulty ambulating so walker is needed. A cane is not a safe option. Patient tires easily when standing or ambulating so a seat of rollator is needed. The rollator will benefit the patient in accomplishing their MRADLs in the home. The mobile deficit can be sufficiently resolved with the use of the 4 W walker with seat Patient has difficulty standing for periods of time so shower chair is needed. The shower chair will benefit the patient in accomplishing their MRADLs in the home. Patient is unable to rise from standard arm- rest chair without assistance so lift chair is needed. The lift chair will assist patient with staying ambulatory and accomplishing their MRADLs in the home. 04/22/2025 Frequent falls (ICD-10 - R29.6) frequent falls recently due to bilateral sciatica, not resolving seeing pain management will benefit from assistive medical devices 04/22/2025 Sciatica (ICD-10 - M54.30) samples lidocaine patches, volateren gel fu pain man next week for injections Plan Of Treatment Treatment Notes Assessment Notes Lower extremity weakness Patient has difficulty ambulating so walker is needed. A cane is not a safe option. Patient tires easily when standing or ambulating so a seat of rollator is needed. The rollator will benefit the patient in accomplishing their MRADLs in the home. The mobile deficit can be sufficiently resolved with the use of the 4 W walker with seat Patient has difficulty standing for periods of time so shower chair is needed. The shower chair will benefit the patient in accomplishing their MRADLs in the home. Patient is unable to rise from standard arm- rest chair without assistance so lift chair is needed. The lift chair will assist patient with staying ambulatory and accomplishing their MRADLs in the home. 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 Presents to office alone for c/o fall at home. Fell trying to get out of chair at home yesterday. Has had 15-20 falls in the past year per patient. 2. Needs F2F for a new lift chair, shower chair and rollator. * HPI: G eneral: MS or [facility] [place] for medical equipment. * ROS: G eneral/Constitutional: Fever d enies. [...] urination d enies. M usculoskeletal: Back pain d enies. N elizabeth pain d enies. D ifficulty Walking a dmits. M uscle aches d enies. S ciatica b ilaterally and low back pain. W eakness?in lower extremites related to sciatica. N europathy a dmits. S kin: Rash d enies. S kin lesion(s) b ruises to arms from falls. * Medical History: L eft leg pain, [...] . * Hospitalization/Major Diagno stic Procedure: M [facility] 11/20. * Family History: F ather: 90 [...] TABLET TWICE DAILY , Taking Dexcom G7 Post Doctoral Fellow , Taking Dexcom G7 Sensor , Taking [...] application Externally Twice a day , Taking Ethel & Syringes - Miscellaneous as directed , [...] MINUTES BEFORE MORNING MEAL. , Taking Pen Ethel , Taking Potassium Chloride Dipti ER 10 [...] itching - Allergy. Objective: * Vitals: W t:192.8lbs, Ht: 60 in, BP:102/64mm Hg, BMI:37.65Index. * Examination: G eneral Examinations: GENERAL APPEARANCE: a lert and oriented, i n no acute distress. EYES: c onjunctiva normal, sclera non-icteric. NOSE: n ormal external appearance. LUNGS: c lear to auscultation bilaterally. CARDIO: r egular rate and rhythm, S1, S2 normal, BL LE edema. MUSCULOSKELETAL: d ecreased ROM due to chronic back pain and bilateral sciatica, using borrowed rollator. SKIN: b ruises noted to arms from falls. ? Assessment: * Assessment: 1. L ower extremity weakness - M62.81 (Primary) 2 . F requent falls - R29.6? 3. S ciatica - M54.30 Plan: * Treatment: 2. F requent falls Notes: frequent falls recently due to bilateral sciatica, not resolving seeing pain management will benefit from assistive medical devices 3. S ciatica Notes: samples lidocaine patches, volateren gel fu pain man next week for injections * Preventive Medicine: Screenings/Counseling: B MN ACTION PLAN Above Normal BMI Follow-up D ietary management education, guidance, and counseling See treatment section of progress note for complete details of management plan. T OBACCO ACTION PLAN Patient counselled on the dangers of tobacco use and urged to quit. 0 04/22/2025 . F ALL RISK SCREENING Fall Risk Assessment: N o falls in the past year * Follow Up: p rn * * Electronic signature of Jeri Drew NP, DIRECTOR OF SPA AND GUEST EXPERIENCE.FAST FOOD ASSISTANT RESTAURANT MANAGER.[id number] on 04/24/2025 at 03:32 PM EDT Sign off status: Pending Visit Status: C HK (Check Out) * Provider: Keke Machuca ([facility]), FAST FOOD ASSISTANT RESTAURANT MANAGER Date: 0 04/22/2025 Generated for Printi ng/Faxing/eTransmitting on: 0 04/24/2025 03:32 PM EDT History and Physical Notes * HPI (History of Present Illness) Category Sub-Category Detail Notes Category Not es General MS or Marie Sa rauskchiquita for medical equipment Examination Category Sub-Category Detail Notes Category Not es General Examinations GENERAL APPEARANCE: alert a nd oriented, in no acute distress EYES: conjunctiva normal, sclera non-icteric EARS: NOSE: normal external appe arance THROAT: CARDIO: regular rate and rhy thm, S1, S2 normal, BL LE edema LUNGS: clear to auscultatio n bilaterally ABDOMEN: SKIN: bruises noted to arm s from falls BACK: MUSCULOSKELETAL: decreased ROM due to chronic back pain and bilateral sciatica, using borrowed rollator LYMPH NODES:
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
--- OUTSIDE RECORDS SUMMARY | 2025-04-24 15:32 | XMS_ITS | Encounter Summary ---
Author Organization [facility] Address [address] [place] [address] Care Team Providers Care Assistant Professor Of History Name Role Phone Unallocated, Noms Provider Primary Care Provi neris Aggie Machuca MD Unavailable [phone] Carter Granger MD Primary Care Provider Da Rosas DO Unavailable Morales De La Rosa DO Unavailable [phone] Encounter Details Date Type Department Care Team (Late Contact Info) Description 08/30/2023 Abstract [facility] [address] [place] [id number] Loly Alcala, TREY [address] [place], [place] Social History Tobacco Use Types Packs/Day [...] Encounters Date Type Department Care Team (Late Contact Info) Description 04/26/2025 1:40 PM EDT Office Visit [facility] [address] [place] [address] Mathieu Naqvi MD [address] [place] [address] 05/17/2025 10:15 AM EDT Office Visit [facility] [place] [facility] [address] [place] [phone] Da Rosas DO [address] [place] [address] documented as of this encounter Visit Diagnoses Not on filedocumented in this encounter Care Teams Assistant Professor Of History Relationship Specialty Start Date End Date Unallocated, Nomchelsey Gage MD [address] [place] [address] PCP - General 12/18/22 04/09/24 Carter Granger MD [address] [place] [address] PCP - General Family Medicine 04/10/24 Aggie Machuca MD [address] [place] [address] Referring Physician Family Medicine 04/10/24 Da Rosas DO [address] [place] [address] Otolaryngology 04/10/24 Morales De La Rosa DO [address] [place] [address] Referring Physician Neurology 08/20/24 documented as of this encounter
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
--- OUTSIDE RECORDS SUMMARY | 2025-04-24 15:33 | XMS_ITS | Encounter Summary ---
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
--- OUTSIDE RECORDS SUMMARY | 2025-04-24 15:33 | XMS_ITS | Encounter Summary ---
Author Organization [facility] Address [address] [place] [address] Care Team Providers Care Distribution Collection Operator Name Role Phone Aggie Machuca MD Unavailable [phone] Carter Granger MD Primary Care Provider [phone] Da Rosas DO Unavailable Morales De La Rosa DO Unavailable [phone] Encounter Details Date Type Department Care Team (Late st Contact Info) Description 09/15/2024 Orders Only [facility] [address] [place] [id number] Morales De La Rosa DO [address] [place] [id number] Social History Tobacco Use Types Packs/Day Years [...] Care Team (Late st Contact Info) Description 04/26/2025 1:40 PM EDT Office Visit [facility] [address] [place] [address] Mathieu Naqvi MD [address] [place] [address] 05/17/2025 10:15 AM EDT Office Visit [facility] [address] [place] [id number] Da Rosas DO [address] [place] [address] documented as of this encounter Procedures Procedure Name Priority Date/Time Associated Diagnosis Comments MRI : BRAIN WITH AND WITHOUT CONTRAST Routine 09/14/2024 10:30 AM EST documented in this encounter Results * MRI : BRAIN WITH AND WITHOUT CONTRAST (09/14/2024 10:30 AM EST) Anatomical Region Laterality Modality Radiographic Manuela ging Morales De La Rosa DO IMG XR PROCEDURES Final R esult documented in this encounter Visit Diagnoses Not on filedocumented in this encounter Care Teams Distribution Collection Operator Relationship Specialty Start Date End Date Carter Granger MD [address] [place] [address] PCP - General Family Medicine 04/10/24 Aggie Machuca MD [address] [place] [address] Referring Physician Family Medicine 04/10/24 Da Rosas DO [address] [place] [address] Otolaryngology 04/10/24 Morales De La Rosa DO [address] [place] [address] Referring Physician Neurology 08/20/24 documented as of this encounter
--- OUTSIDE RECORDS SUMMARY | 2025-04-24 15:33 | XMS_ITS | Clinical Summary ---
Author Organization [facility] Address [address] [place] [address] Care Team Providers Care Slot Machine Repairer Name Role Phone Aggie Mcahuca MD Unavailable [phone] Carter Granger MD Primary Care Provider [...] 7.5 MG tablet every 12 (twelve) hours Active FLUoxetine (PROzac) 20 MG capsule 1 (one) time each day at the same time Active Flovent HFA 110 MCG/ACT inhaler every 12 (twelve) hours Active Jardiance 25 MG Active ReliOn Insulin Syringe 31G X 15/64 0.3 ML [facility] 3 Active pregabalin (Lyrica) 75 MG capsule 3 Active simvastatin (Zocor) 40 MG tablet 1 (one) time each day at the same time Active hydroCHLOROthi azide (HYDRODiuril) 25 MG tablet 1 (one) time each day at the same time Active True Metrix Blood Glucose Test test strip Active pseudoephedrin e-Ibuprofen 30-200 MG tablet per tablet every 6 (six) hours Active TRUEplus Lancets 33G [facility] 4 Active albuterol HFA 90 mcg/act inhaler 4 Active insulin regular (HumuLIN R,NovoLIN R) 100 UNIT/ML injectionIndic ations:Type 2 diabetes mellitus with hyperglycemia, with long-term current use of insulin ([facility]) Inject 0.08 mL (8 Units) under the skin in the morning and 0.08 mL (8 Units) at noon and 0.08 mL (8 Units) in the evening. Inject with meals. 21.6 mL 1 5 Active Semaglutide,0. 25 or 0.5MG/DOS, (Ozempic, 0.25 or 0.5 MG/DOSE,) 2 MG/3ML solution pen-injectorIn dications:Type 2 diabetes mellitus with hyperglycemia, with long-term current use of insulin ([facility]) Inject 0.5 mg under the skin every 7 (seven) days 6 mL 1 5 Active Continuous Glucose Sensor (Dexcom G7 Sensor) [facility] 5 Active cyclobenzaprin e (Flexeril) 5 MG tablet 5 Active omeprazole (PriLOSEC) [address] capsule 5 Active ergocalciferol (Vitamin D2) 1.25 MG (39718 UT) capsuleIndicat ions:Type 2 diabetes mellitus with hyperglycemia, with long-term current use of insulin (HCC) TAKE 1 CAPSULE ONE TIME WEEKLY 12 capsule 3 5 Active ergocalciferol (Vitamin D-2) 1.25 MG (68549 UT) capsuleIndicat ions:Type 2 diabetes mellitus with hyperglycemia, with long-term current use of insulin (HCC) Take 1 capsule (1.25 mg) by mouth 1 (one) time per week 12 capsule 1 04/05/20 25 Discontinued Active Problems No known active problems Resolved Problems Problem Noted Date Diagnosed Date Resolved Date Disorder associated with typ e 2 diabetes mellitus 11/06/2024 11/06/2024 Benign essential hypertension 08/03/2024 11/06/2024 Idiopathic peripheral neuropathy 08/03/2024 11/06/2024 Pure hypercholesterolemia 08/03/2024 Arthritis 03/25/2024 03/25/2024 Arthropathy of left hip 03/25/202402/27 Asthma 03/25/2024 03/25/2024 Bilateral tinnitus 03/25/2024 Chronic [...] Encounters Date Type Department Care Team Description 04/04/2025 Refill [facility] [address] [place] [address] Mathieu Naqvi MD Type 2 diabetes mellitus with hyperglycemia, with long-term current use of insulin (HCC) from Last 3 Months Immunizations Immunization Administration [...] Relation Name Comments Alcohol abuse Father Siddhartha Mcc[place] Alzheimer's disease Father Siddhartha [place]ool Dementia Father Siddhartha [place] Diabetes Father Siddhartha Fco Hearing loss Father Siddhartha Fco Heart disease Father Siddhartha [place] Alzheimer's disease Mother Cherelle [place] Arthritis Mother Cherelle Fco Dementia Mother Cherelle Fco Depression Mother Cherelle [place] Fainting Mother Cherelle [place] Heart disease Mother Cherelle Fco Hypertension Mother Cherelle Fco Kidney disease Mother Cherelle Fco Mental illness Mother Cherelle [place] Migraines Mother Cherelle Fco Osteoarthritis Mother Cherelle [place] Seizures Mother Cherelle [place] Stroke Mother Cherelle Fco Heart disease Sibling No Known Problems Sister No Known Problems Son x 3 Relation Name Status Comments Brother Alive x3 (1 brother d eceased) Father Siddhartha Fco Mother Cherelle Fco Sibling Alive Sister Alive x2 (1 sister [...] 04/26/2025 1:40 PM EDT Office Visit [facility] [place] [facility] [address] [place] [address] Mathieu Naqvi MD [address] [place] [address] 05/17/2025 10:15 AM EDT Office Visit [facility] [place] [facility] [address] [facility] [place] [address] Da Rosas DO [address] [facility] [place] [address] Health Maintenance Due Date Last Done Comments CT Colonography 1954 Colonoscopy 1954 Colorectal Cancer Screening 1954 FIT-DNA 1954 FIT 1954 FOBT 1954 Sigmoidoscopy 1954 Mammogram 1994 Influenza Vaccine (#1) 2025 , 06/30/2023, 10/30/2022, Additional history exists Pneumococcal Vaccine: 65+ Ye ars (3 of 3 - PCV20 or PCV21) 06/01/2025 06/01/2020, 07/29/2018 Insurance [facility] MEDICARE ADVANTAGE [employer] MEDICARE ADVANTAGE Care Teams Slot Machine Repairer Relationship Specialty Start Date End Date Carter Granger MD [address] [place] [address] PCP - General Family Medicine 04/10/24 Aggie Machuca MD [address] [place] [address] Referring Physician Family Medicine 04/10/24 Da Rosas DO [address] [place] [address] Otolaryngology 04/10/24 Morales De La Rosa DO [address] [place] [address] Referring Physician Neurology 08/20/24
--- OUTSIDE RECORDS SUMMARY | 2025-04-24 15:33 | XMS_ITS | Encounter Summary ---
Author Organization [facility] Address [address] [place] [address] Care Team Providers Care Vegetable Picker Name Role Phone Unallocated, Noms Provider Primary Care Provi neris Aggie Machuca MD Unavailable [phone] Carter Granger MD Primary Care Provider Da Rosas DO Unavailable Morales De La Rosa DO Unavailable [phone] Encounter Details Date Type Department Care Team (Late Contact Info) Description 05/31/2023 Abstract [facility] [address] [place] [phone] Loly Alcala, TREY [address] [place], [place] Social History Tobacco Use Types Packs/Day [...] 04/26/2025 1:40 PM EDT Office Visit [facility] [address] [place] [address] Mathieu Naqvi MD [address] [place] [address] 05/17/2025 10:15 AM EDT Office Visit [facility] [place] [facility] [address] [place] [address] Da Rosas DO [address] [place] [address] documented as of this encounter Visit Diagnoses Not on filedocumented in this encounter Care Teams Vegetable Picker Relationship Specialty Start Date End Date Unallocated, Nomchelsey Gage MD [address] [place] [address] PCP - General 12/18/22 04/09/24 Carter Granger MD [address] [place] [address] PCP - General Family Medicine 04/10/24 Aggie Machuca MD [address] [place] [address] Referring Physician Family Medicine 04/10/24 Da Rosas DO [address] [place] [address] Otolaryngology 04/10/24 Morales De La Rosa DO [address] [place] [address] Referring Physician Neurology 08/20/24 documented as of this encounter
--- OUTSIDE RECORDS SUMMARY | 2025-04-24 15:33 | XMS_ITS | Clinical Summary ---
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
--- OUTSIDE RECORDS SUMMARY | 2025-04-24 15:33 | XMS_ITS | Clinical Summary ---
Author Organization [facility] Address [address] [place] [address] Care Team Providers Care Biomedical Field Service Engineer Name Role Phone Aggie Machuca CNP Primary Care Provider [phone] Allergies Active Allergy Reactions Criticality Noted Date Comments Codeine Rash,Unknown Low 07/13/2021 Other Reaction(s): Nausea Propoxyphene N-Acetaminophen Other 08/20/2024 Hydrocodone-Acetaminophe n Unknown Medium 07/30/2014 Other Reaction(s): Unknown Metformin Diarrhea 08/20/2024 Penicillins Unknown Medium 07/30/2014 Other Reaction(s): Difficulty breathing at rest, hives, hives, Unknown Oxycodone-Acetaminophen Other 08/20/2024 Propoxyphene Itching,Unknown Medium 11/30/2016 Medications alendronate (Fosamax) 70 mg tablet Take 70 mg by mouth every 7 (seven) days. Active simvastatin (Zocor) 40 mg tablet Take 40 mg by mouth at bedtime. Active hydroCHLOROthiaz yolanda (HYDRODiuril) 25 mg tablet Take 25 mg [...] Inject 8 Units under the skin. 08/18/2024 Active lisinopril 10 mg tablet Take 10 mg by mouth in the morning. Active Ozempic 0.25 mg or 0.5 mg (2 mg/3 mL) pen injector Inject 0.5 mg under the skin once a week. 08/18/2024 Active albuterol 90 mcg/actuation inhaler Inhale 2 puffs in the morning, noon, at afternoon, at bedtime,. 07/03/2024 Active cyclobenzaprine (Flexeril) 5 mg tablet Take 5 mg by mouth at bedtime. 11/01/2024 Active Active Problems Problem Noted Date Diagnosed Date Asthma 01/28/2025 BMI 31.0-31.9,adult 01/28/2025 CKD (chronic kidney disease) 01/28/2025 H/O hypercholesterolemia 01/28/2025 Hyperlipidemia 01/28/2025 Lipoma of back 01/28/2025 MMT (medial meniscus tear) 01/28/2025 Arthritis 08/03/2024 Back pain 08/03/2024 Benign essential hypertension 08/03/2024 Diabetes mellitus 08/03/2024 Dyslipidemia 08/03/2024 HTN (hypertension) 08/03/2024 Idiopathic peripheral neuropathy 08/03/2024 Kidney stone 08/03/2024 Myocardial infarct 08/03/2024 Pneumonia 08/03/2024 Pure hypercholesterolemia 08/03/2024 Stroke 08/03/2024 Tobacco abuse 08/03/2024 Right leg pain 11/30/2016 Work related injury 11/30/2016 Encounters Date Type Department Care Team Description 01/28/2025 1:30 PM EDT Office Visit [address] [address] Ponce Silvestre MD Syncope and collapse (Primary Dx); RBBB 01/27/2025 Orders Only [facility] [address] [place] [address] Provider, MD Yobany from Last 3 Months Family History Medical History Relation Name Comments [...] Physically or Sexually Abused Not on file Comments Unknown Sex and Gender Information Value Date Recorded Sex Assigned at Not on file Legal Sex Female 10:28 PM EDT Gender Identity Not on file Sexual Orientation Not on file Last Filed Vital Signs Vital Sign Reading Time Taken Comments Blood Pressure 115/76 01/28/2025 1:36 PM EDT Pulse 85 01/28/2025 1:36 PM EDT Temperature - - Respiratory Rate - - Oxygen Saturation 94% 01/28/2025 1:36 PM EDT Inhaled Oxygen Concentration - - Weight 91.6 kg (202 lb) 01/28/2025 1:36 PM EDT Height 152.4 cm (5') 01/28/2025 1:36 PM EDT Body Mass Index 39.45 01/28/2025 1:36 PM EDT Plan of Treatment Health Maintenance Due Date Last Done Comments CT Colonography 1954 Colonoscopy 1954 Colorectal Cancer Screening 1954 Diabetes: Hemoglobin A1C 1954 FIT-DNA 1954 FIT 1954 FOBT 1954 Medicare Annual Wellness (AWV) 1954 Sigmoidoscopy 1954 Diabetes: Retinopathy Screening 1964 Depression Screening 1966 Diabetes: Urine Protein Screening 1973 Mammogram 1994 Fall Risk Screening 2019 COVID-19 Vaccine ( season) 2025 12/19/2020, 11/22/2020 Influenza Vaccine (#1) 2025 , 10/30/2022, 05/31/2022, Additional history exists Pneumococcal Vaccine: 50+ Years (3 of 3 - PCV20 or PCV21) 06/01/2025 06/01/2020, 07/29/2018 Adult Tetanus 04/18/2028 04/18/2018 Zoster Vaccines Completed 06/11/2024, 12/27, 12/27/2023 HIB Vaccines Aged Out No longer [...] on patient's age to complete this topic Insurance [employer] MEDICARE ADVANTAGE Care Teams Biomedical Field Service Engineer Relationship Specialty Start Date End Date Aggie Machuca CNP [address] [place] [address], [place] [address] PCP - General Family Medicine 07/17/24
--- OUTSIDE RECORDS SUMMARY | 2025-04-24 15:33 | XMS_ITS | Clinical Summary ---
Author Organization [facility] Address [address] [place] [address] Phone Care Team Providers Care Roustabout Head Name Role Phone Carter Granger MD Primary Care Provider [phone] Social History Tobacco Use Types Packs/Day Years Used Date Smoking Tobacco: Never Assessed Comments Unknown Sex and Gender Information Value Date Recorded Sex Assigned at Not on file Legal Sex Female 2:55 PM EST Gender Identity Not on file Sexual Orientation Not on file Plan of Treatment Not on file Care Teams Roustabout Head Relationship Specialty Start Date End Date Carter Granger MD [address] [place] [address] PCP - General 01/27/20
--- OUTSIDE RECORDS SUMMARY | 2025-04-24 15:33 | XMS_ITS | Encounter Summary ---
Author Organization [facility] Address [address] [place] [address] Care Team Providers Care Grocery Cashier Name Role Phone Unallocated, Noms Provider Primary Care Provi neris Aggie Machuca MD Unavailable [phone] Carter Granger MD Primary Care Provider [phone] Da Rosas DO Unavailable [phone] Morales De La Rosa DO Unavailable [phone] Encounter Details Date Type Department Care Team (Late st Contact Info) Description 03/04/2024 Orders Only [facility] [address] [place] [address] Aggie Machuca MD [address] [place] [address] Social History Tobacco Use Types Packs/Day Years [...] Description 04/26/2025 1:40 PM EDT Office Visit [facility] [address] [place] [address] Mathieu Naqvi MD [address] [place] [address] 05/17/2025 10:15 AM EDT Office Visit [facility] [address] [place] [address] Da Rosas DO [address] [place] [address] documented as of this encounter Procedures Procedure Name Priority Date/Time Associated Diagnosis Comments GENERAL PATHOLOGY Routine 03/02/2024 10:19 AM EDT documented in this encounter Results * GENERAL PATHOLOGY (03/02/2024 10:19 AM EDT) Aggie Machuca MD [facility] Final Result documented in this encounter Visit Diagnoses Not on filedocumented in this encounter Care Teams Grocery Cashier Relationship Specialty Start Date End Date Unallocated, Nomchelsey Gage MD [address] [place] [address] PCP - General 12/18/22 04/09/24 Carter Granger MD [address] [place] [address] PCP - General Family Medicine 04/10/24 Aggie Machuca MD [address] [place] [address] Referring Physician Family Medicine 04/10/24 Da Rosas DO [address] [place] [address] Otolaryngology 04/10/24 Morales De La Rosa DO [address] [place] [address] Referring Physician Neurology 08/20/24 documented as of this encounter
--- OUTSIDE RECORDS SUMMARY | 2025-04-24 15:33 | XMS_ITS | Patient Health Record ---
Author Organization [facility] Address [address] [place] [address] Care Team Providers Care Shell Trim Operator Name Role Phone Dr. Mikal Barton Primary Care Provider [phone] Allergies Allergen (clinical drug ingredient) Drug/Non Drug [...] Disorder due to type 2 diabetes mellitus (274290699) Diabetes with unspecified complication, type II or unspecified type, not stated as uncontrolled (250.90) Active confirmed Problem Pure hypercholesterolemia (338477377) Pure hypercholesterolemia (272.0) Active confirmed Problem Idiopathic periphera l neuropathy (79829757) Other specified idiopathic peripheral neuropathy (356.8) Active confirmed Problem Benign essential hypertension (1791338) Essential hypertension, benign (401.1) Active confirmed Plan Of Treatment No Information Insurance Providers Payer Name Payer Address Payer Phone Subscriber Number Group Number Insured Name Patient Relationship to Insured Coverage Start Date Coverage End Date [employer] [facility] G[place] [address] [address] [place] [phone] [id number] IDRIS MINER Self - patient is the insured 3 Medical (General) History Medical History History ICD Code HTN VA x2 concussion 2000 migraines depression DM Surgical History Surgery Date(Month/Year) T&A age 17 hysterectomy d/t uterine Ca 1997 cholecystectomy 2005
--- OUTSIDE RECORDS SUMMARY | 2025-04-24 15:33 | XMS_ITS | Encounter Summary ---
Author Organization [facility] Address [address] [place] [address] Care Team Providers Care Hot Stick Man Name Role Phone Aggie Machuca MD Unavailable [phone] Carter Granger MD Primary Care Provider [phone] Da Rosas DO Unavailable [phone] Morales De La Rosa DO Unavailable [phone] Encounter Details Date Type Department Care Team (Late st Contact Info) Description 08/31/2024 Orders Only [facility] [address] [place] [address] Kory Gallagher MD [address] [place] [address] Social History Tobacco Use Types Packs/Day Years [...] Description 04/26/2025 1:40 PM EDT Office Visit [facility] [address] [place] [address] Mathieu Naqvi MD [address] [place] [address] 05/17/2025 10:15 AM EDT Office Visit [facility] [address] [place] [phone] Da Rosas DO [address] [place] [address] documented as of this encounter Procedures Procedure Name Priority Date/Time Associated Diagnosis Comments EMG AND NERVE CONDUCTION STUDY Routine 07/01/2017 12:54 PM EST documented in this encounter Results * EMG AND NERVE CONDUCTION STUDY (07/01/2017 12:54 PM EST) Kory Gallagher MD NEUROLOGY ORDERABLES Final Re sult documented in this encounter Visit Diagnoses Not on filedocumented in this encounter Care Teams Hot Stick Man Relationship Specialty Start Date End Date Carter Granger MD [address] [place] [address] PCP - General Family Medicine 04/10/24 Aggie Machuca MD [address] [place] [address] Referring Physician Family Medicine 04/10/24 Da Rosas DO [address] [place] [address] Otolaryngology 04/10/24 Morales De La Rosa DO [address] [place] [address] Referring Physician Neurology 08/20/24 documented as of this encounter
--- OUTSIDE RECORDS SUMMARY | 2025-04-24 15:33 | XMS_ITS | Encounter Summary ---
Author Organization [facility] Address [address] [place] [address] Care Team Providers Care Light Adjuster Name Role Phone Unallocated, Noms Provider Primary Care Provi neris Aggie Machuca MD Unavailable [phone] Carter Granger MD Primary Care Provider Da Rosas DO Unavailable [phone] Morales De La Rosa DO Unavailable [phone] Encounter Details Date Type Department Care Team (Late Contact Info) Description 07/01/2023 Abstract [facility] [address] [place] [address] [phone] Loly Alcala, TREY [address] [place], [place] Social History Tobacco Use Types Packs/Day [...] 04/26/2025 1:40 PM EDT Office Visit [facility] [address] [place] [address] Mathieu Naqvi MD [address] [place] [address] 05/17/2025 10:15 AM EDT Office Visit [facility] [address] [place] [address] Da Rosas DO [address] [place] [address] documented as of this encounter Visit Diagnoses Not on filedocumented in this encounter Care Teams Light Adjuster Relationship Specialty Start Date End Date Unallocated, Nomchelsey Gage MD [address] [place] [address] PCP - General 12/18/22 04/09/24 Carter Granger MD [address] [place] [address] PCP - General Family Medicine 04/10/24 Aggie Machuca MD [address] [place] [address] Referring Physician Family Medicine 04/10/24 Da Rosas DO [address] [place] [address] Otolaryngology 04/10/24 Morales De La Rosa DO [address] [place] [address] Referring Physician Neurology 08/20/24 documented as of this encounter
== END 2025-04-24 15:30 | disposition home or self-care (01) ==
PROVIDERS: PCP Nurse Practitioner Family
DX: M51.369 Other intervertebral disc degeneration, lumbar region without mention of lumbar back pain or lower extremity pain (principal); M79.604 Pain in right leg
CPT/HCPCS: 73552; 73590

== ENCOUNTER 2025-05-10 21:50 | Emergency (ER) | payer MEDICARE, SELFPAY ==
--- OUTSIDE RECORDS SUMMARY | 2025-04-26 13:40 | XMS_ITS | Encounter Summary ---
Author Organization [facility] Address [address] [place] [address] Care Team Providers Care Electric Crane Operator Name Role Phone Aggie Machuca MD Unavailable [phone] Carter Granger MD Primary Care Provider [phone] Da Rosas DO Unavailable [phone] Morales De La Rosa DO Unavailable [phone] Reason for Visit * Reason Comments Diabetes Encounter Details Date Type Department Care Team (Late st Contact Info) Description 04/26/2025 1:40 PM EDT Office Visit [facility] [address] [place] [address] Mathieu Naqvi MD [address] [place] [address] Type 2 diabetes mellitus with hyperglycemia, with long-term current use of insulin (HCC) (Primary Dx); Encounter for dietary consultation; Vitamin D deficiency; Primary hypertension ; Hyperlipemia, mixed Social History Tobacco Use Types Packs/Day Years [...] on file documented as of this encounter Last Filed Vital Signs Vital Sign Reading Time Taken Comments Blood Pressure 110/70 04/26/2025 1:49 PM EDT Pulse 68 04/26/2025 1:49 PM EDT Temperature - - Respiratory Rate 16 04/26/2025 1:49 PM EDT Oxygen Saturation 96% 04/26/2025 1:49 PM EDT Inhaled Oxygen Concentration - - Weight 86.2 kg (190 lb) 04/26/2025 1:49 PM EDT Height 152.4 cm (5') 04/26/2025 1:49 PM EDT Body Mass Index 37.11 04/26/2025 1:49 PM EDT documented in this encounter Progress Notes * Mathieu Naqvi MD - 04/26/2025 1:40 PM EDT Virgen Zelaya is a 69 y.o. female No ref. provider found presents with chief complaint of Diabetes HPI: IM : 03/2025 Follow-up visit 04/26/2025 A1c 7.3 blood sugar 182, she is on insulin N 23 twice a day and R around 15 units every meal, Ozempic 1 mg once weekly, Jardiance 25 mg once daily IM : 10/2024 Follow-up visit 11/16/2024 A1c [...] HPI: 07/2024 New patient sent from Aggie Machuca for uncontrolled diabetes, she said A1c was [...] Sensor) misc cyclobenzaprine (Flexeril) 5 MG tablet empagliflozin (JARDIANCE) 25 mg, Oral, Daily ergocalciferol (Vitamin D2) 1.25 MG (28119 UT) capsule TAKE 1 CAPSULE ONE TIME WEEKLY Flovent HFA 110 MCG/ACT inhaler Every 12 hours FLUoxetine (PROzac) 20 MG capsule Every 24 hours hydroCHLOROthiazide (HYDRODiuril) 25 MG tablet Every 24 hours insulin regular (HUMULIN R,NOVOLIN R) 8 Units, Subcutaneous, 3 times daily with meals omeprazole (PriLOSEC) [address] capsule Ozempic (1 MG/DOSE) 1 mg, Subcutaneous, Weekly pregabalin (Lyrica) 75 MG capsule pseudoephedrine-Ibuprofen 30-200 [...] 03/25/2024 Arthropathy of left hip 03/25/2024 Asthma (HCC) 03/25/2024 Back pain 03/25/2024 Benign essential hypertension 08/03/2024 Bilateral tinnitus 03/25/2024 Brain concussion 07/07/24 Breast mass Chronic low back pain 03/25/2024 Chronic pharyngitis 03/25/2024 Chronic reactive otitis externa of right ear Chronic reactive otitis externa of right ear 03/25/2024 CTS (carpal tunnel syndrome) 05/2024 Current smoker 03/25/2024 Added secondary to documentation in Social History. Added secondary to documentation in Social History. Depression Diabetes mellitus ([facility]) 03/25/2024 Difficulty walking Walk with a cane as needed About 1 Year Disc displacement, lumbar 03/25/2024 Disorder associated with type 2 diabetes mellitus ([facility]) 11/06/2024 Dyslipidemia 03/25/2024 Ear pain, right Greater trochanteric bursitis of left hip 03/25/2024 H/O hypercholesterolemia 03/25/2024 Headache, tension-type 1923 Hearing loss Hearing loss 03/25/2024 Heart disease HLD (hyperlipidemia) HTN (hypertension) HTN (hypertension) 03/25/2024 Hyperlipidemia 03/25/2024 Idiopathic peripheral neuropathy 08/03/2024 Insomnia Kidney stone Kidney stone 03/25/2024 Lipoma of back 03/25/2024 Loose body in knee 03/25/2024 AR (myocardial infarction) ([facility]) x2 MMT (medial meniscus tear) 03/25/2024 Myocardial infarct ([facility]) 03/25/2024 Neuropathy in diabetes ([facility]) 5 years Numbness in hands and feet Obesity with body mass index 30 or greater 03/25/2024 Otalgia 03/25/2024 Other chondrocalcinosis, right knee 03/25/2024 Other chronic pain 03/25/2024 Paresthesias in left hand 03/25/2024 Percocet use disorder, mild [place] Pneumonia Pneumonia 03/25/2024 Pseudogout of right knee 03/25/2024 Pure hypercholesterolemia 08/03/2024 Purulent bronchitis ([facility]) 03/25/2024 Right leg pain 11/30/2016 Sensorineural hearing loss (SNHL) of both ears 03/25/2024 Shingles 01/1924 Sleep apnea Testing for it Stroke ([facility]) 03/25/2024 Substance abuse ([facility] TIA (transient ischemic attack) 25 years ago Tobacco abuse 03/25/2024 Type 2 diabetes mellitus ([facility]) Type 2 diabetes mellitus ([facility]) 03/25/2024 Uterus cancer ([facility]) Vision loss 2 years Work related injury 11/30/2016 Past Surgical History: Procedure Laterality Date CARPAL TUNNEL RELEASE Bilateral CHOLECYSTECTOMY 2005 FOOT SURGERY 1973 needle in foot removed HYSTERECTOMY 1988 KNEE SURGERY Right 2006 NAIL REMOVAL toenails removed x3 MS ARTHROSCOPY KNEE DIAGNOSTIC W/WO SYNOVIAL BX SPX Right 02/24/2020 Dr. Ashraf [place] KNEE SCOPE,DIAGNOSTIC Right 09/30/2020 JAB TONSILLECTOMY 1972 [...] no Lab Results Component Value Date HGBA1C 7.3 04/26/2025 HGBA1C 6.6 11/16/2024 Lab Results Component Value Date GLU 182 04/26/2025 GLU 217 (H) 12/25/2024 GLU 330 (H) 12/25/2024 08/20/2024 9:05 AM 08/31/2024 10:24 AM 11/05/2024 10:41 AM 11/09/2024 10:02 AM 11/16/2024 12:12 PM 11/26/2024 1:23 PM 04/26/2025 1:49 PM Vitals BMI 40.43 kg/m2 40.43 kg/m2 40.43 kg/m2 40.04 kg/m2 39.65 kg/m2 39.65 kg/m2 37.11 kg/m2 BSA (m2) 1.99 m2 1.99 m2 1.99 m2 1.98 m2 1.97 m2 1.97 m2 1.91 m2 Systolic 144 124 110 Diastolic 80 68 70 Heart Rate 80 79 68 SpO2 95 % 94 % 96 % Resp 18 16 Height (in) 5' 5' 5' 5' 5' 5' Weight (lb) 207 207 207 205 203 203 190 Visit Report Report Report Report Report Report Report Report ASSESSMENT AND PLAN: Assessment/Plan Diagnoses and all orders for this visit: Type 2 diabetes mellitus with hyperglycemia, with long-term current use of insulin (HCC) - POCT glucose manually resulted - POCT glycosylated hemoglobin (Hb A1C) docked device - semaglutide (Ozempic, 1 MG/DOSE,) 4 MG/3ML solution pen-injector; Inject 1 mg under the skin 1 (one) time per week - empagliflozin (Jardiance) 25 MG; Take 1 tablet (25 mg) by mouth Daily We will continue with N 23 twice a day, R around 15 every meal, Ozempic 1 mg once weekly, Biantadsh19 mg once daily Encounter for dietary consultation Diet and exercise reviewed with the patient Vitamin D deficiency Primary hypertension Hyperlipemia, mixed Follow up in about 3 months (around 07/26/2025). documented in this encounter Plan of Treatment Upcoming Encounters Date Type Department Care Team (Late st Contact Info) Description 05/17/2025 10:15 AM EDT Office Visit [facility] [address] [place] [address] Da Rosas DO [address] [place] [place] [address] 10/18/2025 1:50 PM EDT Office Visit [facility] [address] [place] [address] Mathieu Naqvi MD [address] [place] [address] documented as of this encounter Procedures Procedure Name Priority Date/Time Associated Diagnosis Comments POCT GLYCOSYLATED HEMOGLOBIN (HGB A1C) Routine 04/26/2025 2:00 PM EDT Type 2 diabetes mellitus with hyperglycemia, with long-term current use of insulin (HCC) POCT GLUCOSE Routine 04/26/2025 2:00 PM EDT Type 2 diabetes mellitus with hyperglycemia, with long-term current use of insulin (HCC) documented in this encounter Results * (ABNORMAL) POCT glycosylated hemoglobin (Hb A1C) docked device (04/26/2025 2:00 PM EDT) Hemoglobin A1C 7.3 Blood Venous blood specimen / Unknown 04/26/2025 2:00 PM EDT Mathieu Naqvi MD POINT OF CARE TEST ENTER/EDIT ORDERABLES Final Result * (ABNORMAL) POCT glucose manually resulted (04/26/2025 2:00 PM EDT) Glucose Blood, POC 182 mg/dL Blood Capillary blood specimen / Unknown 04/26/2025 2:00 PM EDT us Mathieu Naqvi MD POINT OF CARE TEST ENTER/EDIT ORDERABLES Final Result documented in this encounter Visit Diagnoses Diagnosis Type 2 diabetes mellitus with hyperglycemia, with long-term current use of insulin (HCC)- Primary Encounter for dietary consultation Vitamin D deficiency Primary hypertension Unspecified essential hypertension Hyperlipemia, mixed Mixed hyperlipidemia documented in this encounter Care Teams Electric Crane Operator Relationship Specialty Start Date End Date Carter Granger MD [address] [place] [address] PCP - General Family Medicine 04/10/24 Aggie Machuca MD [address] [place] [address] Referring Physician Family Medicine 04/10/24 Da Rosas DO [address] [place] [address] Otolaryngology 04/10/24 Morales De La Rosa DO [address] [place] [address] Referring Physician Neurology 08/20/24 documented as of this encounter
--- OUTSIDE RECORDS SUMMARY | 2025-04-28 08:03 | XMS_ITS ---
Author Organization [facility] [place] Address [address] [place] [address] Care Team Providers Care Thermal Cutting Tracer Machine Operator Name Role Phone Aggie Machuca Primary Care Provider REASON FOR VISIT rollator and insurance Encounters Encounter Location Date Provider Diagnosis [facility] [place] [address] [place] [address] 04/28/2025 Aggie Machuca Plan Of Treatment No Information Progress Notes * Virgen GRIFFIN SDOB :1955 (69 yo F)Acc No.[id number]:04/28/2025 Patient: Lyudmila APONTEARLETTEAndreea RAMIREZley Ramiro :1955 A ge:69 Y S ex:Female Address[address], [address] Subjective: * Chief Complaints: * R ollator and insurance * Medical History: * Surgical History: * Hospitalization/Major Diagno stic Procedure: * Medications: Objective: * Vitals: * Physical Examination: Assessment: Plan: * Treatment: * Procedure Codes: * true * Date: Generated for Maurii kristine/Darlene/eTransmitting on: 09:55 PM EDT
[2025-05-10] VITALS (12 sets, daily range): BP systolic 118–135; BP diastolic 70–74; PULSE 89; TEMP 36.8; O2SAT 95–100; BMI 38.1
--- OUTSIDE RECORDS SUMMARY | 2025-05-10 21:55 | XMS_ITS | Patient Health Record ---
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 Lab: Notes/Report: [facility] , Sodium 142 136-145 mmol/L Potassium [...] Globulin Ratio 0.9 Performing Lab: see note - [facility] LB GLYCOHEMOGLOBIN A1C Reviewed date:07/10/2024 03:02:41 PM Interpretation: Performing Lab: Notes/Report: [facility] , Glycohemoglobin A1C 10.6 4.5-6.2 % ADA RECOMMENDED LIMIT 4.0 - 6.0 ADA THERAPEUTIC TARGET < 7.0 ACTION SUGGESTED > 7.0 Estimated Average Glucose 258 Performing Lab: see note - [facility] FREE T3 Reviewed date:07/10/2024 03:02:41 PM Interpretation: Performing Lab: Notes/Report: [facility] , Free T3 1.97 2.18-3.98 pg/mL Performing Lab: see note - [facility] LB CBC AUTO DIFF Reviewed date:07/10/2024 03:02:41 PM Interpretation: Performing Lab: Notes/Report: [facility] , White Blood Count 8.6 4.0-11.0 [...] Performing Lab: see note ML - [facility] MM tomosynthesis screening B I Reviewed date:06/30/2024 12:15:33 PM Interpretation: Performing Lab: Notes/Report: Source Facility: [place] [address] [place] [address] Mammography Report Signed Patient: IDRIS GONZALES MR#: [id number] : 1955 Acct:[id number] Age/Sex: 68 / F ADM Date: 06/29/24 Loc: MAMMO Attending Dr: AGGIE DAVIS Ordering Physician: AGGIE DAVIS Results: Date of Service: 06/29/24 Follow Up: Procedure(s): MM tomosynthesis screening BI Accession Number(s): [id number] cc: AGGIE DAVIS Patient Name: IDRIS GONZALES MR#: [id number] : 1955 Exam Date: 06/29/2024 Ordering Doctor: AGGIE DAVIS [facility] RADIOLOGY REPORT PROCEDURE: MM TOMOSYNTHESIS [...] unknown cancer at age 24. LOCATION: [facility] BREAST COMPOSITION: The breasts are heterogeneously [...] Dictated By: Shahriar Owens M.D. Signed By: 06/29/241617 DD/ 16 TD/TT: [facility]: [email or web address], Flu A+B IH Reviewed date:11/03/2024 03:06:23 PM Interpretation: Performing Lab: Notes/Report: COVID neg FLU A neg FLU B neg Control present XR hip LT 2V w/ pelvis Reviewed date:06/30/2024 12:17:25 PM Interpretation: Performing Lab: Notes/Report: Source Facility: [place] [address] XRay Report Signed Patient: IDRIS GONZALES MR#: [id number] : 1955 Acct:[id number] Age/Sex: 68 / F ADM Date: 06/29/24 Loc: RAD Attending Dr: AGGIE DAVIS Ordering Physician: AGGIE DAVIS Date of Service: 06/29/24 Procedure(s): XR hip LT 2V w/ pelvis Accession Number(s): [id number] cc: AGGIE DAVIS [address] [place] [address] Patient Name: IDRIS GONZALES MRN: [id number] date: 1955 Sex: F Assigned Patient Location: RAD Current Patient Location: RAD Accession/Order Number: [id number] Exam Date: 06/29/2024 14:41 Report Date: 06/30/2024 [...] Signed By: 06/30/24 0701 DD/ 0658 TD/TT: [facility]: Reason For Referral Reason hand tremors Diagnosis 1 Tremor (R25.1) Referral Organization [facility] Referring Provider First Name Aggie Referring Provider Last Name Sven Referring Provider [facility] Referred Provider Payton Goodwin Referred Provider Specialty Neurology Referral Priority Routine Reason hx [place], needs new car diologist Diagnosis 1 History of myocardia l infarction (I25.2) Referral Organization [facility] Referring Provider First Name Aggie Referring Provider Last Name Sven [facility]erred Provider Heide Macdonald Referred Provider Specialty Cardiology Referral Priority Routine Diagnosis 1 Kidney mass (N28.89) Referral Organization [facility] Referring Provider First Name Aggie Referring Provider Last Name Sven [facility] Referred Provider Deny Leigh Referred Provider Specialty Nephrology Referral Priority Routine Reason uncontrolled diabete s Diagnosis 1 Type 2 diabetes tad itus with other diabetic neurological complication (E11.49) Referral Organization [facility] Referring Provider First Name Aggie Referring Provider Last Name Sven [facility] Referred Provider Mathieu Barba Referred Provider Specialty Endocrinolog y Referral Priority Routine Diagnosis 1 Non-healing wound of lower extremity (S81.709A) Referral Organization [facility] Referring Provider First Name Aggie Referring Provider Last Name Sven [facility] Referred Provider [facility] Referred Provider Specialty Wound Care Referral Priority Routine Diagnosis 1 Kidney mass (N28.89) Referral Organization [facility] Referring Provider First Name Kyle Referring Provider Last Name Bárbara Referring Provider [facility] tatyana Referred Provider Kang Alvarez Referred Provider Specialty Urology Referral Priority Routine Reason Stage 4 CKD Diagnosis 1 Stage 4 chronic kidn ey disease (N18.4) Referral Organization [facility] Referring Provider First Name Aggie Referring Provider Last Name Sven [facility] Referred Provider Deny Leigh Referred Provider Specialty Nephrology Referral Priority Routine Reason requesting dry needl ing Diagnosis 1 Type 2 diabetes tad itus with other diabetic neurological complication (E11.49) Referral Organization [facility] Referring Provider First Name Aggie Referring Provider Last Name Sven [facility] Referred Provider [facility] Physical Therap y Referred Provider Specialty Physical The rapist Referral Priority Routine Reason low back pain with s ciatica, worse on right Diagnosis 1 Low back pain with s ciatica (M54.40) Referral Organization [facility] Referring Provider First Name Aggie Referring Provider Last Name Sven [facility] Referred Provider Dustin Sparrow Referred [...] TIMES DAILY; Duration: 90 Active Dexcom G7 Certified Mortician A ctive True Metrix Level 1 Low [...] 90 Active ReliOn Insulin Syringe 31G X 15 0.3 ML USE 1 ONCE DAILY DIRECTED; Duration: 30 Active Potassium Chloride Dipti ER 10 MEQ 1 tablet with food Orally Twice a day as needed with Lasix; Duration: 30 days 12/04/2024 Active Pen Rosser Active Omeprazole 40 MG TAKE 1 CAPSULE ONE TIME DAILY 30 MINUTES BEFORE MORNING MEAL.; Duration: 90 Active NovoLIN R FlexPen 100 UNIT/ML sliding scale Injection TID Active NovoLIN N 100 UNIT/ML 22 units Subcutaneous bid Active Nitroglycerin 0.4 MG as directed Sublingual PRN Active Rosser & Syringes - as directed Active Mupirocin [...] Administration Date Status Comme nts Flu, Fluad (20578) 65 yrs and older, single-dose syringe (5284-2557) IM Intramuscular 05/14/2024 Administered Social History Tobacco [...] Status Risk Notes Problem Morbid obesity (disorder) (394923143) Morbid (severe) obesity due to excess calories (E66.01) Active confirmed Problem Anxiety disorder (782325904) Anxiety disorder, unspecified (F41.9) Active confirmed Problem Hidradenitis suppurativa (60455149) Hidradenitis suppurativa (L73.2) Active confirmed Problem Pain of right shoulder region (finding) (8223729248) Pain in right shoulder (M25.511) Active confirmed Problem Pain in left leg (290537984) Pain in left leg (M79.605) Active confirmed Problem Pain in limb (07977042) Pain in right lower leg (M79.661) Active confirmed Problem Disorder of bone (21780263) Disorder of bone, unspecified (M89.9) Active confirmed Problem Chest pain (57487612) Other chest pain (R07.89) Active confirmed Problem Fatigue (75555471) Fatigue (R53.83) Active conf irmed Problem Hypertension (95638772) Hypertension (I10) Active confirmed Problem Cigarette smoker (17552962) Cigarette smoker (F17.210) Active confirmed Problem Gastroesophageal reflux disease (372306584) GERD (gastroesophagea l reflux disease) (K21.9) Active confirmed Problem Coronary artery disease (89096681) CAD (coronary artery disease) (I25.10) Active confirmed Problem Hypertension (90947794) HTN (hypertension) (I10) Active confirmed Problem Neck pain (04869519) Neck pain (M54.2) Active confirmed Problem Depression (046525510) Depression (F32.9) Active confirmed Problem Peripheral neuropathy (916363372) Peripheral neuropathy (G62.9) Active confirmed Problem Obstructive sleep apnea syndrome (41484526) NATALEE (obstructive sleep apnea) (G47.33) Active confirmed Problem Insomnia (439123565) Insomnia (G47.00) Active confirmed Problem Bilateral lower extremity edema (715379614) Bilateral lower extremity edema (R60.0) Active confirmed Problem Dizziness (864432849) Dizziness (R42) Active confirmed Problem Glaucoma (95668598) Glaucoma (H40.9) Active con firmed Problem Thyroid nodule (404078732) Thyroid nodule (E04.1) Active confirmed Problem Allergic rhinitis (72300026) Allergic rhinitis (J30.9) Active confirmed Problem Hearing loss (99753268) Hearing loss (H91.90) Active confirmed Problem Osteoporosis (45280458) Osteoporosis (M81.0) Active confirmed Problem Pain in left leg (331282677) Left leg pain (M79.605) Active confirmed Problem Sciatica (29428802) Sciatica (M54.30) Active confirmed Problem Neurologic disorder associated with type II diabetes mellitus (035084318) Type 2 diabetes mellitus with other diabetic neurological complication (E11.49) Active confirmed Problem Multinodular goiter (596273588) Multinodular goiter (E04.2) Active confirmed Problem Diabetic retinopathy (2765522) Diabetic retinopathy (E11.319) Active confirmed Problem Recurrent falls (854988504) Frequent falls (R29.6) Active confirmed Problem Dog bite (777924517) Dog bite (W54.0XXA) Active confirmed Problem Daytime somnolence (879782595785) Daytime somnolence (R40.0) Active confirmed Problem Pseudogout (456130739) Pseudogout (M11.80) Active confirmed Problem Sciatica (69821609) Low back key n with sciatica (M54.40) Active confirmed Problem History of myocardial infarction (108055607) History of myocardial infarction (I25.2) Active confirmed Problem Essential hypertension (88365392) Essential (primary) hypertension (I10) Active confirmed Problem Kidney mass (475447029) Kidney mass (N28.89) Active confirmed Problem Annual wellness visit (239400263994686) Wellness examination (Z00.00) Active confirmed Problem Neurologic disorder associated with diabetes mellitus (243099838) 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) Active confirmed Problem Pain in limb (56315353) Pain in joint of left hand (M79.642) Active confirmed Problem Chronic kidney disease stage 4 (284138130) Stage 4 chronic kidney disease (N18.4) Active confirmed Problem Breast lump (52095076) Lump or mass in breast (N63.0) Active confirmed Problem Obese class II (finding) (195089843835322) Class 2 obesity (E66.9) Active confirmed Problem Chronic kidney disease stage 3B (disorder) (139705905) Chronic kidney disease, stage 3b (N18.32) Active confirmed Problem Headache (04224118) Headache, unspecified (R51.9) Active confirmed Problem Chronic cough (42094816) Chronic cough (R05.3) Active confirmed Problem Chronic low back pain (finding) (337075612) Chronic midline low back pain without sciatica [...] N/A Encounters Encounter Location Date Provider Diagnosis [address] [address] 2024 Aggie Davis Bronchitis J40 [address] [address] 06/05/2024 Aggie Davis Cough R05.[address] [address] 05/14/2024 Aggie Davis 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.49 ; Tremor R25.1 ; Peripheral neuropathy G62.9 ; Dizziness R42 and Encounter for immunization Z23 [address] [address] 06/29/2024 Aggie Davis History of myocardia l infarction I25.2 ; Daytime somnolence R40.0 ; Syncope R55 ; Right elbow pain M25.521 ; Left hip pain M25.552 and H/O falling Z91.[address] [address] 07/09/2024 Aggie Davis Essential (primary) hypertension I10 ; Syncope R55 ; Fatigue R53.83 and Dizziness R42 [address] [address] 07/16/2024 Aggie Davis Diabetes mellitus wi th neurological manifestation E11.[address] [address] 07/27/2024 Aggie Davis 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.[address] [address] 08/07/2024 Aggie Davis Right foot pain M79. 671 and Non-healing wound of lower extremity S81.809A [address] [address] 08/21/2024 Aggie Davis Stage 4 chronic kidn ey disease N18.4 and Diabetes mellitus with neurological manifestation E11.[address] [address] 09/07/2024 Aggie Daivs NATALEE (obstructive sle ep apnea) G47.33 ; 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.49 and Stage 4 chronic kidney disease N18.[address] [address] 11/05/2024 Aggie Davis 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.49 ; Hypertension I10 and Sacral contusion S30.0XXA [address] [address] 11/19/2024 Aggie Davis 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.49 ; Bilateral lower extremity edema R60.0 and Class 2 obesity E66.[address] [address] 12/04/2024 Aggie Davis Dysuria R30.0 ; Bilateral lower extremity edema R60.0 and Chronic midline low back pain without sciatica M54.[address] [address] 12/22/2024 Aggie Sven Bilateral lower extremity edema R60.0 and Right elbow pain M25.[address] [address] 01/05/2025 Aggie Davis 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.[address] [address] 01/18/2025 Aggie Davis Morbid (severe) obes ity due to excess calories E66.01 ; 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.49 and Left leg pain M79.[address] [address] 02/09/2025 Aggie Davis Wasp sting T63.461A [address] [place] [address] 03/04/2025 Aggie Sven Low back pain with sciatica M54.[address] [place] [address] 03/18/2025 Aggie Sven Sciatica M54.[address] [address] 04/07/2025 Aggie Davis Low back pain with sciatica M54.[address] [place] [address] 04/14/2025 Aggie Davis Low back pain with sciatica M54.40 and Suture check Z48.[address] [address] 04/19/2025 Aggie Davis Laceration of finger of right hand, subsequent encounter S61.219D ; Right leg pain M79.604 ; Falls W19.XXXA and Suture check Z48.[address] [address] 04/22/2025 Aggie Davis Lower extremity weakness M62.81 ; Frequent falls R29.6 and Sciatica M54.30 [facility] [address] [place] [address] 06/08/2024 Aggie Davis [facility] [address] [facility] [address] 06/18/2024 Aggie Davis Osteoporosis M81.0 [facility] [address] [facility] [address] 06/29/2024 Aggie Davis [facility] [address] [facility] [address] 06/30/2024 Aggie Davis [facility] [address] [facility] [address] 07/03/2024 Aggie Davis Bronchitis J40 [facility] [address] [facility] [address] 07/09/2024 Aggie Davis [facility] [address] [facility] [address] 07/09/2024 Aggie Davis [facility] [address] [facility] [address] 07/10/2024 Aggie Davis Kidney mass N28.89 [facility] [address] [facility] [address] 07/13/2024 Aggie Davis Thyroid nodule E04.1 and Chronic kidney disease, stage 3b N18.32 [facility] [address] [facility] [address] 07/16/2024 Kyle Hoy Kidney mass N28.89 [facility] [address] [facility] [address] 07/16/2024 Aggie Davis [facility] [address] [facility] [address] 07/17/2024 Aggie Davis Kidney mass N28.89 [facility] [address] [facility] [address] 07/19/2024 Kyle Bárbara [facility] [address] [place] [address] 07/27/2024 Aggie Davis [facility] [address] [place] [address] 07/27/2024 Kyle Granger Pre-procedural examination Z01.818 [facility] [address] [place] [address] 08/07/2024 Aggie Davis Non-healing wound of lower extremity S81.809A [facility] [address] [place] [address] 08/11/2024 Aggie Davis [facility] [address] [place] [address] 08/12/2024 Aggie Davis [facility] [address] [place] [address] 08/12/2024 Kyle Chilochiquita Kidney mass N28.89 [facility] [address] [place] [address] 08/12/2024 Aggie Davis [facility] [address] [place] [address] 08/16/2024 Kyle Chilochiquita [facility] [address] [place] [address] 08/17/2024 Aggie Davis [facility] [address] [place] [address] 08/21/2024 Aggie Davis [facility] [address] [place] [address] 09/07/2024 Aggie Davis [facility] [address] [place] [address] 09/10/2024 Aggie Davis [facility] [address] [place] [address] 11/06/2024 Aggie Davis [facility] [address] [place] [address] 11/09/2024 Aggie Davis [facility] [address] [place] [address] 11/13/2024 Aggie Davis [facility] [address] [place] [address] 11/13/2024 Aggie Davis [facility] [address] [place] [address] 11/16/2024 Aggie Davis [facility] [address] [place] [address] 11/16/2024 Aggie Davis Thyroid nodule E04.1 [facility] [address] [place] [address] 11/16/2024 Aggie Davis [facility] [address] [place] [address] 11/27/2024 Aggie Davis [facility] [address] [facility] [place] [address] 12/18/2024 Aggie Davis Frequency R35.0 [facility] [address] [place] [address] 12/25/2024 Aggie Davis [facility] [address] [place] [address] 01/06/2025 Aggie Davis [facility] [address] [facility] [place] [address] 01/07/2025 Aggie Davis [facility] [address] [place] [address] 01/15/2025 Aggie Davis 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.49 [facility] [address] [place] [address] 02/08/2025 Aggie Davis [facility] [address] [place] [address] 02/09/2025 Aggie Davis [facility] [address] [place] [address] 02/12/2025 Aggie Davis [facility] [address] [place] [address] 03/05/2025 Aggie Davis [facility] [address] [facility] [address] 03/18/2025 Aggie Davis [facility] [address] [facility] [address] 04/22/2025 Aggie Davis [facility] [address] [place] [address] 04/23/2025 Aggie Davis [facility] [address] [facility] [address] 04/28/2025 Aggie Davis Assessments Encounter Date Diagnosis (ICD Code) Assessment Notes Treatment Notes Treatment Clinical Notes Section Notes 05/14/2024 Type 2 diabetes mellitus with other diabetic neurological complication (ICD-10 - E11.49) 05/14/2024 Tremor (ICD-10 - R25.1) referral ST[facility] 06/05/2024 Cough (ICD-10 - R05.9) smoker fu if not improving 06/29/2024 History of myocardial infarction (ICD-10 - I25.2) 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 UTI, [...] below 65 consecutively. Reviewed with patient the shelter effects of Diabetes Mellitus on the body [...] if sx dont improve notify office needs [facility] 04/22/2025 Lower extremity weakness (ICD-10 - M62.81) [...] monitor bs report 1-2 weeks sunny barba [facility] 04/19/2025 Falls (ICD-10 - W19.XXXA) offered PT consult wants to see how injections in back help use wheeled walker 11/19/2024 Class 2 obesity (ICD-10 - E66.9) will discuss meds at next visit work on diet 09/07/2024 Type 2 diabetes mellitus with other diabetic neurological complication (ICD-10 - E11.49) fu Donya discussed Humulin R diabetic education referral made 11/05/2024 Sacral contusion (ICD-10 - S30.0XXA) 08/21/2024 Diabetes mellitus with neurological manifestation (ICD-10 - E11.49) reviewed BS started seeing Donya added Novolin R Patient educated on Diabetic diet... Reviewed Hypoglycemia / Hyperglycemia action plan: Instructed to call office if blood sugar above 350 or below 65 consecutively. Reviewed with patient the filler leaf cutter long effects of Diabetes Mellitus on the body [...] PANEL (CHOL/TRIG/HDL/LDL) 12/11/19 LIPID PANEL (CHOL/TRIG/HDL/LDL) 07/09/20 24 CBC WITH [...] Date [employer] MEDICARE ADV PLAN [address] [address] [place] [address] [id number] Idris Holland Self - patient is the [...] Surgery- Right Tonsilectomy Hospitalization History Reason Date(Month/Year) [facility] 11/20
--- OUTSIDE RECORDS SUMMARY | 2025-05-10 21:55 | XMS_ITS | Encounter Summary ---
Author Organization [facility] Address [address] [place] [address] Care Team Providers Care Fruit Grader Name Role Phone Unallocated, Noms Provider Primary Care Provi neris Aggie Machuca MD Unavailable [phone] Carter Granger MD Primary Care Provider Da Rosas DO Unavailable Morales De La Rosa DO Unavailable [phone] Encounter Details Date Type Department Care Team (Late st Contact Info) Description 08/30/2023 [facility] [address] [place] [phone] Loly Alcala, TREY [address] [place], [place] Social History Tobacco Use Types Packs/Day [...] Department Care Team (Late Contact Info) Description 05/17/2025 10:15 AM EDT Office Visit [facility] [place] [address] [place] [address] Da Rosas DO [address] [place] [address] 10/18/2025 1:50 PM EDT Office Visit [facility] [place] [facility] [address] [place] [address] Mathieu Naqvi MD [address] [place] [address] documented as of this encounter Visit Diagnoses Not on filedocumented in this encounter Care Teams Fruit Grader Relationship Specialty Start Date End Date Unallocated, Nomchelsey Gage MD [address] [place] [address] PCP - General 12/18/22 04/09/24 Carter Granger MD [address] [place] [address] PCP - General Family Medicine 04/10/24 Aggie Machuca MD [address] [place] [address] Referring Physician Family Medicine 04/10/24 Da Rosas DO [address] [place] [address] Otolaryngology 04/10/24 Morales De La Rosa DO [address] [place] [address] Referring Physician Neurology 08/20/24 documented as of this encounter
--- OUTSIDE RECORDS SUMMARY | 2025-05-10 21:55 | XMS_ITS | Clinical Summary ---
Author Organization [facility] Address [address] [place] [address] Phone Care Team Providers Care Validation Engineer Name Role Phone Carter Granger MD Primary Care Provider [phone] Social History Tobacco Use Types Packs/Day Years Used Date Smoking Tobacco: Never Assessed Comments Unknown Sex and Gender Information Value Date Recorded Sex Assigned at Not on file Legal Sex Female 2:55 PM EST Gender Identity Not on file Sexual Orientation Not on file Plan of Treatment Not on file Care Teams Validation Engineer Relationship Specialty Start Date End Date Carter Granger MD [address] [place] [address] PCP - General 01/27/20
--- OUTSIDE RECORDS SUMMARY | 2025-05-10 21:55 | XMS_ITS | Clinical Summary ---
Author Organization [facility] Address [address] [place] [address] Care Team Providers Care Design Cell Engineer Name Role Phone Aggie Machuca MD Unavailable [phone] Carter Granger MD Primary Care Provider Da Rosas DO Unavailable [phone] Morales De La Rosa DO Unavailable [phone] Allergies Active Allergy Reactions Criticality Noted Date [...] MCG/ACT inhaler every 12 (twelve) hours Active ReliOn Insulin Syringe 31G X 15 0.3 ML [facility] 3 Active pregabalin (Lyrica) 75 MG capsule [...] 6 (six) hours Active TRUEplus Lancets 33G [facility] 4 Active albuterol HFA 90 mcg/act inhaler 4 Active insulin regular (HumuLIN R,NovoLIN R) 100 UNIT/ML injectionIndica tions:Type 2 diabetes mellitus with hyperglycemia, with long-term current use of insulin ([facility]) Inject 0.08 mL (8 Units) under the skin in the morning and 0.08 mL (8 Units) at noon and 0.08 mL (8 Units) in the evening. Inject with meals. 21.6 mL 1 5 Active Continuous Glucose Sensor (Dexcom G7 Sensor) [facility] 5 Active cyclobenzaprine (Flexeril) 5 MG tablet 5 Active omeprazole (PriLOSEC) [address] capsule 5 Active ergocalciferol (Vitamin D2) 1.25 MG (82817 UT) capsuleIndicati ons:Type 2 diabetes mellitus with hyperglycemia, with long-term current use of insulin ([facility]) TAKE 1 CAPSULE ONE TIME WEEKLY 12 capsule 3 5 Active semaglutide (Ozempic, 1 MG/DOSE,) 4 MG/3ML solution pen-injectorInd ications:Type 2 diabetes mellitus with hyperglycemia, with long-term current use of insulin ([facility]) Inject 1 mg under the skin 1 (one) time per week 9 mL 1 5 07/25/20 25 Active empagliflozin (Jardiance) 25 MGIndications:T ype 2 diabetes mellitus with hyperglycemia, with long-term current use of insulin ([facility]) Take 1 tablet (25 mg) by mouth Daily 90 tablet 1 5 10/24/19 26 Active Jardiance 25 MG 04/26/20 25 Discontinu ed(Reorder ) Semaglutide,0.2 5 or 0.5MG/DOS, (Ozempic, 0.25 or 0.5 MG/DOSE,) 2 MG/3ML solution pen-injectorInd ications:Type 2 diabetes mellitus with hyperglycemia, with long-term current use of insulin (HCC) Inject 0.5 mg under the skin every 7 (seven) days 6 mL 1 5 04/26/20 25 Discontinu ed(Dose adjustment ) semaglutide (Ozempic, 1 MG/DOSE,) 4 MG/3ML solution pen-injector Inject 1 mg under the skin 1 (one) time per week 04/26/20 25 Discontinu ed(Reorder ) Active Problems No known active problems Resolved Problems Problem Noted Date Diagnosed Date Resolved Date Disorder associated with typ e 2 diabetes mellitus 11/06/2024 11/06/2024 Benign essential hypertension 08/03/2024 11/06/2024 Idiopathic peripheral neuropathy 08/03/2024 11/06/2024 Pure hypercholesterolemia 08/03/2024 Arthritis 03/25/2024 03/25/2024 Arthropathy of left hip 03/25/202402/27 Asthma 03/25/2024 03/25/2024 Bilateral tinnitus 03/25/2024 Chronic pharyngitis 03/25/2024 03/25/20 Chronic reactive otitis externa of right ear 4 03/25/2024 Current smoker 03/25/2024 03/25/2024 Overview (03/25/2024): [...] Encounters Date Type Department Care Team Description 04/26/2025 1:40 PM EDT Office Visit [facility] [place] [facility] [address] [place] [address] Mathieu Naqvi MD Type 2 diabetes mellitus with hyperglycemia, with long-term current use of insulin (HCC) (Primary Dx); Encounter for dietary consultation; Vitamin D deficiency; Primary hypertension ; Hyperlipemia, mixed 04/26/2025 Bamboo flowsheet [facility] [place] [facility] [address] [place] [address] Mathieu Naqvi MD 04/04/2025 Refill [facility] [place] [facility] [address] [place] [address] Mathieu Naqvi MD Type 2 diabetes mellitus [...] Relation Name Comments Alcohol abuse Father Siddhartha Fco Alzheimer's disease Father Siddhartha [place] Dementia Father Siddhartha [place] Diabetes Father Siddhartha [place] Hearing loss Father Siddhartha [place] Heart disease Father Sdidhartha [place] Alzheimer's disease Mother Cherelle [place] Arthritis Mother Cherelle [place] Dementia Mother Cherelle [place] Depression Mother Cherelle Fco Fainting Mother Cherelle [place] Heart disease Mother Cherelle [place] Hypertension Mother Cherelle [place] Kidney disease Mother Cherelle [place] Mental illness Mother Cherelle Fco Migraines Mother Cherelle Fco Osteoarthritis Mother Cherelle Fco Seizures Mother Cherelle [place] Stroke Mother Cherelle [place] Heart disease Sibling [...] Pulse 68 04/26/2025 1:49 PM EDT Temperature 36.3 C (97.4 F) 10/29/2023 9:23 AM EDT Respiratory Rate 16 04/26/2025 1:49 PM EDT Oxygen Saturation 96% 04/26/2025 1:49 PM EDT Inhaled Oxygen Concentration - - Weight 86.2 kg (190 lb) 04/26/2025 1:49 PM EDT Height 152.4 cm (5') 04/26/2025 1:49 PM EDT Body Mass Index 37.11 04/26/2025 1:49 PM EDT Plan of Treatment Upcoming Encounters Date Type Department Care Team (Late st Contact Info) Description 05/17/2025 10:15 AM EDT Office Visit [facility] [facility] [address] [place] [address] Da Rosas DO [address] [facility] [place] [address] 10/18/2025 1:50 PM EDT Office Visit [facility] [place] [facility] [address] [place] [address] Mathieu Naqvi MD [address] [place] [address] Health Maintenance Due Date Last Done Comments CT Colonography 1954 Colonoscopy 1954 Colorectal Cancer Screening 1954 FIT-DNA 1954 FIT 1954 FOBT 1954 Sigmoidoscopy 1954 Mammogram 1994 Influenza Vaccine (#1) 2025 3, 06/30/2023, 10/30/2022, Additional history exists Pneumococcal Vaccine: [...] of insulin (HCC) from Last 3 Months Results * (ABNORMAL) POCT glycosylated hemoglobin (Hb [...] OF CARE TEST ENTER/EDIT ORDERABLES Final Result from Last [address] [facility] MEDICARE ADVANTAGE Member Subscriber Plan / Payer ( fective 2022-Present) Name:Virgen Harris Relation to Subscriber:Self Name:Virgen Harris Payer ID:[id number] (NAIC) Type:Not on file Address: [place] [phone] [employer] MEDICARE ADVANTAGE Care Teams Design Cell Engineer Relationship Specialty Start Date End Date Carter Granger MD [address] [place] [address] PCP - General Family Medicine 04/10/24 Aggie Machuca MD [address] [place] [address] Referring Physician Family Medicine 04/10/24 Da Rosas DO [address] [place] [address] Otolaryngology 04/10/24 Morales De La Rosa DO [address] [place] [address] Referring Physician Neurology 08/20/24
--- OUTSIDE RECORDS SUMMARY | 2025-05-10 21:55 | XMS_ITS | Encounter Summary ---
Author Organization [facility] Address [address] [place] [address] Care Team Providers Care Rotary Machine Operator Name Role Phone Aggie Machuca MD Unavailable [phone] Carter Granger MD Primary Care Provider [phone] Da Rosas DO Unavailable [phone] Morales De La Rosa DO Unavailable Encounter Details Date Type Department Care Team (Late st Contact Info) Description 09/15/2024 Orders Only [facility] [address] [place] [id number] Morales De La Rosa DO [address] [place] [id number] Social History Tobacco Use Types Packs/Day Years [...] Office Visit [facility] [address] [place] [address] Da Rosas DO [address] [place] [address] 10/18/2025 1:50 PM EDT [facility] [address] [place] [address] Mathieu Naqvi MD [address] [place] [address] documented as of this encounter Procedures [...] on filedocumented in this encounter Care Teams Rotary Machine Operator Relationship Specialty Start Date End Date Carter Granger MD [address] [place] [address] PCP - General Family Medicine 04/10/24 Aggie Machuca MD [address] [place] [address] Referring Physician Family Medicine 04/10/24 Da Rosas DO [address] [place] [address] Otolaryngology 04/10/24 Morales De La Rosa DO [address] [place] [address] Referring Physician Neurology 08/20/24 documented as of this encounter
--- OUTSIDE RECORDS SUMMARY | 2025-05-10 21:55 | XMS_ITS | Patient Health Record ---
Author Organization [facility] Address [address] [place] [address] Care Team Providers Care Economic Research Analyst Name Role Phone Dr. Mikal Barton Primary Care Provider [phone] Allergies Allergen (clinical drug ingredient) Drug/Non Drug Allergy documented on EMR Reaction Allergy Type Onset Date Status Zomax (uncoded) Unknown Allergy Acti ve Darvon 65 mg # 30 Unknown Drug Allergy Active Sulfa Unknown Drug Allergy Active PCN Unknown Drug Allergy Active codeine Codeine Unknown Drug Allergy Active Reason For Referral No Information Medications Medication SIG (Take, Route, Frequency, Duration) Notes Start Date End Date Status Pravachol 40 mg Tablet 1 tablet Orally O nce a day; Duration: 30 day(s) 06/20/2010 Active Tagamet HB 200 MG Tablet 1 tablet Orally PRN; Duration: 30 day(s) Active Glucophage 1000 mg Tablet as directed Or ally BID; Duration: 30 days Active Lisinopril 20 mg Tablet 1 tablet Orally Once a day; Duration: 30 day(s) Active Multivitamins Tablet as directed Orally Active Omeprazole 40 MG Capsule Delayed Release 1 capsule Orally Once a day; Duration: 30 day(s) Active Aspir-81 81 MG Tablet Delayed Release 1 tablet Orally Once a day; Duration: 30 day(s) Active Problems Problem Type SNOMED Code ICD Code Onset Dates Problem Status W/U Status Risk Notes Problem Disorder due to type 2 diabetes mellitus (812941036) Diabetes with unspecified complication, type II or unspecified type, not stated as uncontrolled (250.90) Active confirmed Problem Pure hypercholesterolemia (862988272) Pure hypercholesterolemia (272.0) Active confirmed Problem Idiopathic periphera l neuropathy (19873306) Other specified idiopathic peripheral neuropathy (356.8) Active confirmed Problem Benign essential hypertension (3942115) Essential hypertension, benign (401.1) Active confirmed Plan Of Treatment No Information Insurance Providers Payer Name Payer Address Payer Phone Subscriber Number Group Number Insured Name Patient Relationship to Insured Coverage Start Date Coverage End Date [employer] [facility] PLUS O [address] [address] [place] [address] [phone] [id number] IDRIS MINER Self - patient is the insured 3 Medical (General) History Medical History History ICD Code HTN CT x2 concussion 2000 migraines depression DM Surgical History Surgery Date(Month/Year) T&A age 17 hysterectomy d/t uterine Ca 1997 cholecystectomy 2005
--- OUTSIDE RECORDS SUMMARY | 2025-05-10 21:55 | XMS_ITS | Encounter Summary ---
Author Organization [facility] Address [address] [place] [address] Care Team Providers Care Orientor Name Role Phone Aggie Machuca MD Unavailable [phone] Carter Granger MD Primary Care Provider [phone] Da Rosas DO Unavailable [phone] Moarles De La Rosa DO Unavailable [phone] Encounter Details Date Type Department Care Team (Late st Contact Info) Description 08/31/2024 Orders Only [facility] [address] [place] [address] Kory Gallagher MD [address] [place] [address] Social History Tobacco Use Types Packs/Day Years [...] Description 05/17/2025 10:15 AM EDT Office [facility] [address] [place] [address] Da Rosas DO [address] [place] [address] 10/18/2025 1:50 PM EDT Office Visit [facility] [place] [facility] [address] [place] [address] Mathieu Naqvi MD [address] [place] [address] documented as of this encounter Procedures Procedure Name Priority Date/Time Associated Diagnosis Comments EMG AND NERVE CONDUCTION STUDY Routine 07/01/2017 12:54 PM EST documented in this encounter Results * EMG AND NERVE CONDUCTION STUDY (07/01/2017 12:54 PM EST) Kory Gallagher MD NEUROLOGY ORDERABLES Final Re sult documented in this encounter Visit Diagnoses Not on filedocumented in this encounter Care Teams Orientor Relationship Specialty Start Date End Date Carter Granger MD [address] [place] [address] PCP - General Family Medicine 04/10/24 Aggie Machuca MD [address] [place] [address] Referring Physician Family Medicine 04/10/24 Da Rosas DO [address] [place] [address] Otolaryngology 04/10/24 Morales De La Rosa DO [address] [place] [address] Referring Physician Neurology 08/20/24 documented as of this encounter
--- OUTSIDE RECORDS SUMMARY | 2025-05-10 21:55 | XMS_ITS | Encounter Summary ---
Author Organization [facility] Address [address] [facility] [place] [address] Care Team Providers Care Paper Tube Grader Name Role Phone Unallocated, Noms Provider Primary Care Provi neris Aggie Machuca MD Unavailable [phone] Carter Granger MD Primary Care Provider [phone] Da Rosas DO Unavailable Morales De La Rosa DO Unavailable [phone] Encounter Details Date Type Department Care Team (Late st Contact Info) Description 03/04/2024 Orders Only [facility] [address] [place] [address] Aggie Machuca MD [address] [place] [address] Social History Tobacco Use Types Packs/Day Years [...] Office Visit [facility] [place] [facility] [address] [place] [address] Da Rosas DO [address] [place] [address] 10/18/2025 1:50 PM EDT Office Visit [facility] [place] [facility] [address] [place] [address] Mathieu Naqvi MD [address] [place] [address] documented as of this encounter Procedures Procedure Name Priority Date/Time Associated Diagnosis Comments GENERAL PATHOLOGY Routine 03/02/2024 10:19 AM EDT documented in this encounter Results * GENERAL PATHOLOGY (03/02/2024 10:19 AM EDT) Aggie Machuca MD [facility] Final Result documented in this encounter Visit Diagnoses Not on filedocumented in this encounter Care Teams Paper Tube Grader Relationship Specialty Start Date End Date Unallocated, Nomchelsey Gage MD [address] [place] [address] PCP - General 12/18/22 04/09/24 Carter Granger MD [address] [place] [address] PCP - General Family Medicine 04/10/24 Aggie Machuca MD [address] [place] [address] Referring Physician Family Medicine 04/10/24 Da Rosas DO [address] [place] [address] Otolaryngology 04/10/24 Morales De La Rosa DO [address] [place] [address] Referring Physician Neurology 08/20/24 documented as of this encounter
--- OUTSIDE RECORDS SUMMARY | 2025-05-10 21:55 | XMS_ITS | Encounter Summary ---
Author Organization [facility] Address [address] [place] [address] Care Team Providers Care Pain Medicine Physician Name Role Phone Unallocated, Noms Provider Primary Care Provi neris Aggie Machuca MD Unavailable [phone] Carter Granger MD Primary Care Provider Da Rosas DO Unavailable [phone] Morales De La Rosa DO Unavailable [phone] Encounter Details Date Type Department Care Team (Late st Contact Info) Description 07/01/2023 [facility] [address] [address] [place] [phone] Loly Alcala, TREY [address] [place], [place] Social History Tobacco Use Types Packs/Day [...] 05/17/2025 10:15 AM EDT Office Visit [facility] [address] [place] [address] Da Rosas DO [address] [place] [address] 10/18/2025 1:50 PM EDT Office Visit [facility] [address] [place] [address] Mathieu Naqvi MD [address] [place] [address] documented as of this encounter Visit Diagnoses Not on filedocumented in this encounter Care Teams Pain Medicine Physician Relationship Specialty Start Date End Date Unallocated, Nomchelsey Gage MD [address] [place] [address] PCP - General 12/18/22 04/09/24 Carter Granger MD [address] [place] [address] PCP - General Family Medicine 04/10/24 Aggie Machuca MD [address] [place] [address] Referring Physician Family Medicine 04/10/24 Da Rosas DO [address] [place] [address] Otolaryngology 04/10/24 Morales De La Rosa DO [address] [place] [address] Referring Physician Neurology 08/20/24 documented as of this encounter
--- OUTSIDE RECORDS SUMMARY | 2025-05-10 21:55 | XMS_ITS | Encounter Summary ---
Author Organization [facility] Address [address] [place] [address] Care Team Providers Care Children'S Author Name Role Phone Unallocated, Noms Provider Primary Care Provi neris Aggie Machuca MD Unavailable [phone] Carter Granger MD Primary Care Provider Da Rosas DO Unavailable Morales De La Rosa DO Unavailable [phone] Encounter Details Date Type Department Care Team (Late st Contact Info) Description 05/31/2023 Abstract [facility] [address] [place] [address] Loly Alcala, TREY [address] [place], [place] Social History Tobacco Use Types Packs/Day [...] 05/17/2025 10:15 AM EDT Office Visit [facility] [address] [place] [address] Da Rosas DO [address] [place] [address] 10/18/2025 1:50 PM EDT Office Visit [facility] [address] [place] [address] Mathieu Naqvi MD [address] [place] [address] documented as of this encounter Visit Diagnoses Not on filedocumented in this encounter Care Teams Children'S Author Relationship Specialty Start Date End Date Unallocated, Nomchelsey Gage MD [address] [place] [address] PCP - General 12/18/22 04/09/24 Carter Granger MD [address] [place] [address] PCP - General Family Medicine 04/10/24 Aggie Machuca MD [address] [place] [address] Referring Physician Family Medicine 04/10/24 Da Rosas DO [address] [place] [address] Otolaryngology 04/10/24 Morales De La Rosa DO [address] [place] [address] Referring Physician Neurology 08/20/24 documented as of this encounter
--- OUTSIDE RECORDS SUMMARY | 2025-05-10 21:55 | XMS_ITS | Encounter Summary ---
Author Organization [facility] Address [address] [place] [address] Care Team Providers Care Calibration Specialist Name Role Phone Unallocated, Noms Provider Primary Care Provi neris Aggie Machuca MD Unavailable [phone] Carter Granger MD Primary Care Provider Da Rosas DO Unavailable Morales De La Rosa DO Unavailable [phone] Encounter Details Date Type Department Care Team (Late st Contact Info) Description 08/13/2023 [facility] [address] [address] Loly Alcala, TREY [address] [place], [place] Social History Tobacco Use Types Packs/Day [...] 05/17/2025 10:15 AM EDT Office Visit [facility] [facility] [address] [place] [address] Da Rosas DO [address] [place] [address] 10/18/2025 1:50 PM EDT Office Visit [facility] [address] [place] [address] Mathieu Naqvi MD [address] [place] [address] documented as of this encounter Visit Diagnoses Not on filedocumented in this encounter Care Teams Calibration Specialist Relationship Specialty Start Date End Date Unallocated, Nomchelsey Gage MD [address] [place] [address] PCP - General 12/18/22 04/09/24 Carter Granger MD [address] [place] [address] PCP - General Family Medicine 04/10/24 Aggie Machuca MD [address] [place] [address] Referring Physician Family Medicine 04/10/24 Da Rosas DO [address] [place] [address] Otolaryngology 04/10/24 Morales De La Rosa DO [address] [place] [address] Referring Physician Neurology 08/20/24 documented as of this encounter
--- OUTSIDE RECORDS SUMMARY | 2025-05-10 21:55 | XMS_ITS | Clinical Summary ---
Author Organization [facility] Address [address] [place] [address] Care Team Providers Care Vp Biology Name Role Phone Aggie Machuca CNP Primary Care Provider [phone] Allergies Active Allergy Reactions Criticality Noted Date [...] patient's age to complete this topic Insurance [facility] MEDICARE ADVANTAGE Care Teams Vp Biology Relationship Specialty Start Date End Date Aggie Machuca CNP [facility] [facility], [place] [address] PCP - General Family Medicine 07/17/24
--- OUTSIDE RECORDS SUMMARY | 2025-05-10 21:56 | XMS_ITS | Encounter Summary ---
Author Organization [facility] Address [address] [place] [address] Care Team Providers Care Manager Card Name Role Phone Aggie Machuca MD Unavailable [phone] Carter Granger MD Primary Care Provider [phone] Da Rosas DO Unavailable [phone] Morales De La Rosa DO Unavailable [phone] Encounter Details Date Type Department Care Team (Late st Contact Info) Description 04/26/2025 Bamboo flowsheet [facility] [address] [place] [id number] Mathieu Naqvi MD [address] [place] [address] Social History Tobacco Use Types Packs/Day Years [...] 05/17/2025 10:15 AM EDT Office Visit [facility] [address] [place] [phone] Da Rosas DO [address] [place] [address] 10/18/2025 1:50 PM EDT [facility] [address] [place] [address] Mathieu Naqvi MD [address] [place] [address] documented as of this encounter Visit Diagnoses Not on filedocumented in this encounter Care Teams Manager Card Relationship Specialty Start Date End Date Carter Granger MD [address] [place] [address] [phone] PCP - General Family Medicine 04/10/24 Aggie Machuca MD [address] [place] [phone] Referring Physician Family Medicine 04/10/24 Da Rosas DO [address] [place] [address] Otolaryngology 04/10/24 Morales De La Rosa DO [address] [place] [phone] Referring Physician Neurology 08/20/24 documented as of this encounter
--- OUTSIDE RECORDS SUMMARY | 2025-05-10 21:57 | XMS_ITS | CCD ---
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 Paternal Grandmother Normal [facility] CHEMISTRYOrdered By: Oliver GUALLPA User on 12-25-2024 Glucose [Mass/Vol] 217 mg/dL High 55 - 99 mg/dL [facility] POC Subsection Comment on above: Result Comment: No C overage Given Cleaned Meter POC Username HAYLEE RODRIGUEZ Invalid Interpretation Code [facility] POC Subsection Sodium [Moles/Vol] [id number] mmol/L Invalid Interpretation Code [facility] POC Subsection Sodium [Moles/Vol] [id number] mmol/L Invalid Interpretation Code [facility] POC Subsection Glucose [Mass/Vol] 330 mg/dL High 55 - 99 mg/dL [facility] POC Subsection Comment on above: Result Comment: Karen alexis Meter POC Username CLAUDINE TERAN Invalid Interpretation Code [facility] POC Subsection Sodium [Moles/Vol] [id number] mmol/L Invalid Interpretation Code [facility] POC Subsection Sodium [Moles/Vol] [id number] mmol/L Invalid Interpretation Code [facility] POC Subsection CHEMISTRYOrdered By: Cinthia Mccarty on 12-25-2024 HbA1c (Bld) [Mass fraction] 8.4 % High <=5.9% [facility] ChemAutoSS Capillary Glucose POCon 11-28 Glucose [Mass/Vol] 217 mg/dL High 55-99 [facility] Comment on above: Result Comment: No C overage Given Cleaned Meter Performed By: #### 2 [id number] #### [facility] [address] [place] [address] Glucose [Mass/Vol] 330 mg/dL High 55-99 [facility] Comment on above: Result Comment: Karen alexis Meter Performed By: #### 2 [id number] #### [facility] [address] [place] [address] [facility] CAPILLARY GLUCOSE POCon 05-30-2025 Glucose [Mass/Vol] 217 mg/dL High 55 - 99 mg/dL [facility] Comment on above: No Coverage Given Cleaned Meter Interpretation and review of laboratory results Abnormal [facility] Healthcare Original Ordering Provider: DO Brice Estrella [facility] [id number] 12-25-2024 Interpretation and review of laboratory results Abnormal [facility] Original Ordering Provider: DO Brice Estrella [facility] [id number] 12-25-2024 HbA1c (Bld) [Mass fraction] 8.4 % High <=5.9 [facility] Comment on above: Performed By: #### 7 [id number] #### [facility] [address] [place] [address] Urine Cultureon 12-22-2024 Bacteria identified Cx Nom (U) 15,000 colonies/ml mixed bacterial skin contaminants 2 Days PERFORMED BY: [place] [address] PATHOLOGIST GEOTECHNICIAN LI GARZON M.D. Normal [facility] Comment on above: Performed By: #### L IPID #### [address] #### CPEP #### [facility] , Urine cultureOrdered By: Alma Davis on 12-22-2024 Bacteria identified Cx Nom (U) Urine culture [facility] Glucose (Bld) [Mass/Vol]Orde red By: Lisa Koehler on 11-16-2024 Glucose Blood, POC 203 mg/dL [facility] Laboratory - Hematology and Cell countson 11-16-2024 HbA1c (Bld) [Mass fraction] 6.6 % [facility] No Panel InformationOrdered By: Lisa Koehler on 11-16-2024 [facility] Urine Cultureon 11-14-2024 Bacteria identified Cx Nom (U) >100,000 colonies/ml mixed bacterial skin contaminants 2 Days PERFORMED BY: [place] [address] PATHOLOGIST GEOTECHNICIAN CURTIS CASAS M.D. Normal [facility] Comment on above: Performed By: #### L IPID #### [facility] [address] [place] [address] #### CPEP #### [facility] , Urine cultureOrdered By: Alma Davis on 11-14-2024 Bacteria identified Cx Nom (U) Urine culture [facility] MR ELBOW RIGHT WO IV CONTRAS [...] bacterial skin contaminants 2 Days PERFORMED BY: [place] [address] PATHOLOGIST GEOTECHNICIAN CURTIS CASAS M.D. Normal [facility] Comment on above: Performed By: #### C UU #### [facility] [address] [place] [address] Urine cultureOrdered By: Evens Nair on 10-30-2024 Bacteria identified Cx Nom (U) Urine culture [facility] Alanine aminotransferase [En zymatic activity/volume] in Serum or PlasmaOrdered By: Ponce Silvestre on 10-13-2024 ALT [Catalytic activity/Vol] Alanine aminotransferase [Enzymatic activity/volume] in Serum or Plasma [facility] Albumin [Mass/volume] in Ser um or Plasma by Bromocresol green (BCG) dye binding methoOrdered By: Ponce Silvestre on 10-13-2024 Albumin BCG dye [Mass/Vol] Albumin [Mass/volume] in Serum or Plasma by Bromocresol green (BCG) dye binding metho 3.5-5.7 [facility] Alkaline phosphatase [Enzyma tic activity/volume] in Serum or PlasmaOrdered By: Ponce Silvestre on 10-13-2024 ALP [Catalytic activity/Vol] Alkaline phosphatase [Enzymatic activity/volume] in Serum or Plasma 34-104 [facility] Appearance of UrineOrdered B y: Dinah Sepulveda on 10-13-2024 Appearance (U) Urine appearance Abnormal Clear [facility] Aspartate aminotransferase [ Enzymatic activity/volume] in Serum or PlasmaOrdered By: Ponce Silvestre on 10-13-2024 AST [Catalytic activity/Vol] Aspartate aminotransferase [Enzymatic activity/volume] in Serum or Plasma 13-39 [facility] Bacteria [Presence] in Urine by AutomatedOrdered By: Dinah Sepulveda on 10-13-2024 Bacteria Auto Ql (U) Bacteria [Presence] in Urine by Automated None Seen [facility] Bilirubin Test strip Ql (U)O rdered By: Dinah Sepulveda on 10-13-2024 Bilirubin Ql (U) Bilirubin.total [Presence] in Urine by Test strip Negative [facility] Bilirubin.direct [Mass/volum e] in Serum or PlasmaOrdered By: Ponce Silvestre on 10-13-2024 Bilirubin.direct [Mass/Vol] Bilirubin.direct [Mass/volume] in Serum or Plasma 0.03-0.18 [facility] Bilirubin.total [Mass/volume ] in Serum or PlasmaOrdered By: Ponce Silvestre on 10-13-2024 Bilirubin [Mass/Vol] Bilirubin.total [Mass/volume] in Serum or Plasma 0.3-1.0 [facility] C-peptide measurementOrdered By: Mathieu Naqvi on 10-13-2024 C-Peptide 1.4 ng/mL Normal 1.1-4.4 [facility] Comment on above: C-Peptide reference interval is for fasting patients.Performed at: CB - [facility] [id number] [place], [place] [id number] Director: Kilo Masterson PhD, Phone: [phone] Result Comment: C-Pe ptide reference interval is for fasting patients. Performed at: - [facility] [id number] [place], [place] [id number] Inspector Rag Sorting: Kilo Masterson PhD, Phone: [phone] PERFORMED BY: [place] [address] PATHOLOGIST GEOTECHNICIAN CURTIS CASAS M.D. Performed By: #### L IPID #### [address] #### CPEP #### [facility] , Calcium [Mass/volume] in Ser um or PlasmaOrdered By: Mathieu Naqvi on 10-13-2024 Calcium [Mass/Vol] Calcium [Mass/volume ] in Serum or Plasma 8.6-10.3 [facility] Carbon dioxide, total [Moles /volume] in Serum or PlasmaOrdered By: Mathieu Naqvi on 10-13-2024 CO2 [Moles/Vol] Carbon dioxide, tota l [Moles/volume] in Serum or Plasma 21.0-31.0 [facility] Chloride [Moles/volume] in S yoav or PlasmaOrdered By: Mathieu Naqvi on 10-13-2024 Chloride [Moles/Vol] Chloride [Moles/volume] in Serum or Plasma 98-107 [facility] Cholesterol [Mass/volume] in Serum or PlasmaOrdered By: Mathieu Naqvi on 10-13-2024 Cholesterol [Mass/Vol] Cholesterol [Mass/volume] in Serum or Plasma Low 140-200 [facility] Comment on above: Chol less than 200 m g/dl low riskChol 201-239 mg/dl borderline riskChol 240 mg/dl and greater high risk Cholesterol in HDL [Mass/vol ume] in Serum or PlasmaOrdered By: Mathieu Naqvi on 10-13-2024 Cholesterol in HDL [Mass/Vol] Serum or plasma high density lipoprotein (HDL) cholesterol measurement 23-92 [facility] Comment on above: HDL CHOL ATP-III CLA SSIFICATION Cardiovascular RiskHDL > or equal to 60 mg/dL LOWHDL < 40 mg/dL HIGH Cholesterol in LDL Calc [Mas s/Vol]Ordered By: Mathieu Naqvi on 10-13-2024 Cholesterol in LDL [Mass/Vol] Cholesterol in LDL [Mass/volume] in Serum or Plasma by calculation 0-100 [facility] Comment on above: LDL ATP III CLASSIFI CATIONLDL less than 100 mg/dL OptimalLDL 100-129 mg/dL Near or above optimalLDL 130-159 mg/dL Borderline highLDL 160-189 mg/dL HighLDL greater than 189 mg/dL Very high Cholesterol in VLDL Calc [Ma ss/Vol]Ordered By: Mathieu Naqvi on 10-13-2024 Cholesterol in VLDL [Mass/Vol] Cholesterol in VLDL [Mass/volume] in Serum or Plasma by calculation [facility] Color Auto (U)Ordered By: Ab elias Sepulveda on 10-13-2024 Color (U) Color of Urine by Auto Yellow [facility] Creatinine [Mass/volume] in Serum or PlasmaOrdered By: Mathieu Naqvi on 10-13-2024 Creatinine [Mass/Vol] Creatinine [Mass/volume] in Serum or Plasma High 0.60-1.20 [facility] Creatinine [Mass/volume] in UrineOrdered By: Mathieu Naqvi on 10-13-2024 Creatinine (U) [Mass/Vol] Creatinine [Mass/volume] in Urine [facility] Comment on above: No reference range e stablished Dipstick and Microscopicon 0 10-13-2024 Appearance (U) Cloudy Critically abnormal Clear [facility] Comment on above: Order Comment: Name Collection Type:: Clean-Voided Midstream Performed By: #### A JALEESA RAPHAEL PROCRERAT #### [address] Bacteria,Urine None Seen Normal None Seen [facility] Comment on above: Order Comment: Name Collection Type:: Clean-Voided Midstream Performed By: #### A JALEESA RAPHAEL PROCRERAT #### [facility] [address] [place] [address] [place] Bilirubin,Urine Negative Normal Negative [facility] Comment on above: Order Comment: Name Collection Type:: Clean-Voided Midstream Performed By: #### A DDONUAPLUS, CUU, PROCRERAT #### [address] Color (U) Light-Yellow Normal Yellow [facility] Comment on above: Order Comment: Name Collection Type:: Clean-Voided Midstream Performed By: #### A DDONUAPLUS, CUU, PROCRERAT #### [address] Glucose Ql (U) 1000 mg/dL High Normal [facility] Comment on above: Order Comment: Name Collection Type:: Clean-Voided Midstream Performed By: #### A DDONUAPLUS, CUU, PROCRERAT #### [place] [address] [place] Hyaline Casts,Urine None Normal 0-8 [facility] Comment on above: Order Comment: Name Collection Type:: Clean-Voided Midstream Performed By: #### A DDONUAPLUS, CUU, PROCRERAT #### [address] Ketones Ql (U) Negative Normal Negative [facility] Comment on above: Order Comment: Name Collection Type:: Clean-Voided Midstream Performed By: #### A DDONUAPLUS, CUU, PROCRERAT #### [address] Leukocyte esterase Test strip Ql (U) 3+ High Negative [facility] Comment on above: Order Comment: Name Collection Type:: Clean-Voided Midstream Performed By: #### A DDONUAPLUS, CUU, PROCRERAT #### [place] [address] [place] Mucus,Urine Rare Normal [facility] Comment on above: Order Comment: Name Collection Type:: Clean-Voided Midstream Result Comment: PERF ORMED BY: [place] [address] PATHOLOGIST GEOTECHNICIAN CURTIS CASAS M.D. Performed By: #### A DDONUAPLUS, CUU, PROCRERAT #### [place] [address] [place] Nitrite,Urine Negative Normal Negative [facility] Comment on above: Order Comment: Name Collection Type:: Clean-Voided Midstream Performed By: #### A DDONUAPLUS, CUU, PROCRERAT #### [place] [address] [place] Occult Blood,Urine Negative Normal Negative [facility] Comment on above: Order Comment: Name Collection Type:: Clean-Voided Midstream Performed By: #### A DDONUAPLUS, CUU, PROCRERAT #### [address] pH (U) 6.5 [pH] Normal 5.0-9.0 [facility] Comment on above: Order Comment: Name Collection Type:: Clean-Voided Midstream Performed By: #### A DDONUAPLUS, CUU, PROCRERAT #### [place] [address] [place] Protein,Urine Negative Normal Negative [facility] Comment on above: Order Comment: Name Collection Type:: Clean-Voided Midstream Performed By: #### A DDONUAPLUS, CUU, PROCRERAT #### [place] [address] [place] RBC,Urine 1-2 Normal 0-4 [facility] Comment on above: Order Comment: Name Collection Type:: Clean-Voided Midstream Performed By: #### A DDONUAPLUS, CUU, PROCRERAT #### [place] [address] [place] Specificy [place],Urine 1.013 Normal 1.001-1.030 [facility] Comment on above: Order Comment: Name Collection Type:: Clean-Voided Midstream Performed By: #### A DDONUAPLUS, CUU, PROCRERAT #### [facility] [address] Squamous Epithelial Cell,Urine 10-19 High 0-2 [facility] Comment on above: Order Comment: Name Collection Type:: Clean-Voided Midstream Performed By: #### A DDONUAPLUS, CUU, PROCRERAT #### [facility] [address] Urobilinogen,Urine Normal Normal Normal [facility] Comment on above: Order Comment: Name Collection Type:: Clean-Voided Midstream Performed By: #### A DDONUAPLUS, CUU, PROCRERAT #### [facility] [address] WBC,Urine 20-49 High 0-4 [facility] Comment on above: Order Comment: Name Collection Type:: Clean-Voided Midstream Performed By: #### A DDONUAPLUS, CUU, PROCRERAT #### [facility] [address] Epithelial cells.squamous [# /area] in Urine sediment by Automated countOrdered By: Dinah Sunr on 10-13-2024 Epithelial cells.squamous Auto (Urine sed) [#/Area] Epithelial cells.squamous [#/area] in Urine sediment by Automated count High 0-2 [facility] Erythrocyte distribution wid th Auto (RBC) [Ratio]Ordered By: Dinah Stubbsdir on 10-13-2024 Erythrocyte distribution width (RBC) [Ratio] Erythrocyte distribution width [Ratio] by Automated count 11.9-15.3 [facility] Erythrocytes [#/area] in Uri ne sediment by Automated countOrdered By: Dinah Derick on 10-13-2024 RBC Auto (Urine sed) [#/Area] Erythrocytes [#/area] in Urine sediment by Automated count 0-4 [facility] Globulin Calc (S) [Mass/Vol] Ordered By: Ponce Silvestre on 10-13-2024 Globulin (S) [Mass/Vol] Serum globulin measurement by calculation (mass/volume) [facility] Glucose [Mass/volume] in Ser um or PlasmaOrdered By: Mathieu Naqvi on 10-13-2024 Glucose [Mass/Vol] Glucose [Mass/volume ] in Serum or Plasma High 70-100 [facility] Comment on above: ADA recommended refe [...] in Urine by Test strip High Normal [facility] Hematocrit Auto (Bld) [Volum e fraction]Ordered By: Dinah Sepulveda on 10-13-2024 Hematocrit (Bld) [Volume fraction] Hematocrit [Volume Fraction] of Blood by Automated count 34.0-46.4 [facility] Hemoglobin Test strip Ql (U) Ordered By: Dinah Sepulveda on 10-13-2024 Hemoglobin Ql (U) Hemoglobin [Presence ] in Urine by Test strip Negative [facility] Hemoglobin [Mass/volume] in BloodOrdered By: Dinah Sepulveda on 10-13-2024 Hemoglobin (Bld) [Mass/Vol] Hemoglobin [Mass/volume] in Blood 11.8-15.4 [facility] Hemogram CBC Without Diffon 10-13-2024 Erythrocyte distribution width (RBC) [Ratio] 15.3 % Normal 11.9-15.3 [facility] Comment on above: Performed By: #### L IPID #### [facility] [address] [place] [address] [place] #### CPEP #### [facility] , Hematocrit (Bld) [Volume fraction] 37.7 % Normal 34.0-46.4 [facility] Comment on above: Performed By: #### L IPID #### [facility] [address] [place] [address] [place] #### CPEP #### [facility] , Hemoglobin (Bld) [Mass/Vol] 12.7 g/dL Normal 11.8-15.4 [facility] Comment on above: Performed By: #### L IPID #### [address] #### CPEP #### [facility] , MCH (RBC) [Entitic mass] 29.3 pg Normal 24.7-34.3 [facility] Comment on above: Performed By: #### L IPID #### [facility] [address] [place] [address] #### CPEP #### [facility] , MCV (RBC) [Entitic vol] 87.1 fL Normal 80-100 [facility] Comment on above: Performed By: #### L IPID #### [address] #### CPEP #### [facility] , Mean Corpuscular HGB Conc 33.6 g/dL Normal 32.0-35.0 [facility] Comment on above: Performed By: #### L IPID #### [address] #### CPEP #### [facility] , Platelet mean volume (Bld) [Entitic vol] 9.9 fL Normal 6.3-10.7 [facility] Comment on above: Result Comment: PERF ORMED BY: [place] [address] PATHOLOGIST GEOTECHNICIAN CURTIS CASAS M.D. Performed By: #### L IPID #### [address] #### CPEP #### [facility] , Platelets (Bld) [#/Vol] 192 10*3/uL Normal 150-450 [facility] Comment on above: Performed By: #### L IPID #### [place] [address] [place] #### CPEP #### [facility] , RBC (Bld) [#/Vol] 4.33 10*6/uL Normal 3.60-5.00 [facility] Comment on above: Performed By: #### L IPID #### [facility] [address] [place] [address] #### CPEP #### [facility] , WBC (Bld) [#/Vol] 8.4 10*3/uL Normal 3.8-11.6 [facility] Comment on above: Performed By: #### L IPID #### [address] #### CPEP #### [facility] , Hepatic Panelon 10-13-2024 Albumin [Mass/Vol] 3.8 g/dL Normal 3.5-5.7 [facility] Comment on above: Performed By: #### H EPATIC #### [address] Albumin/Globulin [Mass ratio] 1.5 {ratio} Normal [facility] Comment on above: Performed By: #### H EPATIC #### [address] ALP [Catalytic activity/Vol] 99 U/L Normal 34-104 [facility] Comment on above: Result Comment: PERF ORMED BY: [place] [address] PATHOLOGIST GEOTECHNICIAN CURTIS CASAS M.D. Performed By: #### H EPATIC #### [address] ALT [Catalytic activity/Vol] 11 U/L Normal 7-52 [facility] Comment on above: Performed By: #### H EPATIC #### [address] AST [Catalytic activity/Vol] 14 U/L Normal 13-39 [facility] Comment on above: Performed By: #### H EPATIC #### [address] Bilirubin [Mass/Vol] 0.4 mg/dL Normal 0.3-1.0 [facility] Comment on above: Performed By: #### H EPATIC #### [address] Bilirubin,Indirect 0.3 mg/dL Normal [facility] Comment on above: Performed By: #### H EPATIC #### [address] Bilirubin.indirect [Mass/Vol] 0.10 mg/dL Normal 0.03-0.18 [facility] Comment on above: Performed By: #### H EPATIC #### [address] Globulin (S) [Mass/Vol] 2.6 g/dL Normal [facility] Comment on above: Performed By: #### H EPATIC #### [address] Protein [Mass/Vol] 6.4 g/dL Normal 6.4-8.9 [facility] Comment on above: Performed By: #### H EPATIC #### [address] Hyaline casts [#/area] in Ur ine sediment by Automated countOrdered By: Dinah Sepulveda on 10-13-2024 Hyaline casts Auto (Urine sed) [#/Area] Hyaline casts [#/area] in Urine sediment by Automated count 0-8 [facility] Ketones Test strip Ql (U)Ord ered By: Dinah Sepulveda on 10-13-2024 Ketones Ql (U) Ketones [Presence] i n Urine by Test strip Negative [facility] Leukocyte esterase [Presence ] in Urine by Test stripOrdered By: Dinah Sepulveda on 10-13-2024 Leukocyte esterase Test strip Ql (U) Leukocyte esterase [Presence] in Urine by Test strip High Negative [facility] Leukocytes [#/area] in Urine sediment by Automated countOrdered By: Dinah Sepulveda on 10-13-2024 WBC Auto (Urine sed) [#/Area] Leukocytes [#/area] in Urine sediment by Automated count High 0-4 [facility] Leukocytes [#/volume] correc graham for nucleated erythrocytes in Blood by Automated counOrdered By: Dinah Sepulveda on 10-13-2024 WBC corrected for nucl RBC Auto (Bld) [#/Vol] Leukocytes [#/volume] corrected for nucleated erythrocytes in Blood by Automated coun 3.8-11.6 [facility] Lipid Panelon 10-13-2024 Cholesterol [Mass/Vol] 95 mg/dL Low 140-200 [facility] Comment on above: Result Comment: Chol less than 200 mg/dl low risk Chol 201-239 mg/dl borderline risk Chol 240 mg/dl and greater high risk Performed By: #### L IPID #### [facility] [address] [place] [address] #### CPEP #### [facility] , Cholesterol in HDL [Mass/Vol] 28 mg/dL Normal 23-92 [facility] Comment on above: Result Comment: HDL CHOL ATP-III CLASSIFICATION Cardiovascular Risk HDL > or equal to 60 mg/dL LOW HDL < 40 mg/dL HIGH Performed By: #### L IPID #### [facility] [address] [place] [address] [place] #### CPEP #### [facility] , Cholesterol.total/Vivian sterol in HDL [Mass ratio] 3.4 {ratio} Normal <5.0 [facility] Comment on above: Result Comment: PERF ORMED BY: [place] [address] PATHOLOGIST GEOTECHNICIAN CURTIS CASAS M.D. Performed By: #### L IPID #### [facility] [address] [place] [address] [place] #### CPEP #### [facility] , LDL Cholesterol,Calculated 48 mg/dL Normal 0-100 [facility] Comment on above: Result Comment: LDL ATP III CLASSIFICATION LDL less than 100 mg/dL Optimal LDL 100-129 mg/dL Near or above optimal LDL 130-159 mg/dL Borderline high LDL 160-189 mg/dL High LDL greater than 189 mg/dL Very high Performed By: #### L IPID #### [facility] [address] [place] [address] [place] #### CPEP #### [facility] , Triglyceride w/Reflex 97 mg/dL Normal 0-149 [facility] Comment on above: Result Comment: TRIG ATP III CLASSIFICATION TRIG less than 150 mg/dL Normal TRIG 150-199 mg/dL Borderline high TRIG 200-500 mg/dL High TRIG greater than 500 mg/dL Very high Standard traceable to the Center for Disease Conrtrol and Prevention (CDC) test method. Performed By: #### L IPID #### [facility] [address] [place] [address] [place] #### CPEP #### [facility] , VLDL CHOLESTEROL 19 mg/dL Normal [facility] Comment on above: Performed By: #### L IPID #### [facility] [address] [place] [address] [place] #### CPEP #### [facility] , MCH Auto (RBC) [Entitic mass ]Ordered By: Dinah Sepulveda on 10-13-2024 MCH (RBC) [Entitic mass] MCH [Entitic mass] by Automated count 24.7-34.3 [facility] MCHC Auto (RBC) [Mass/Vol]Or dered By: Dinah Sepulveda on 10-13-2024 MCHC (RBC) [Mass/Vol] MCHC [Mass/volume] by Automated count 32.0-35.0 [facility] MCV Auto (RBC) [Entitic vol] Ordered By: Dinah Sepulveda on 10-13-2024 MCV (RBC) [Entitic vol] MCV [Entitic vol ume] by Automated count 80-100 [facility] Magnesiumon 10-13-2024 Magnesium [Mass/Vol] 2.1 mg/dL Normal 1.9-2.7 [facility] Comment on above: Performed By: #### L IPID #### [facility] [address] [place] [address] [place] #### CPEP #### [facility] , Magnesium [Mass/volume] in S yoav or PlasmaOrdered By: Dinah Sepulveda on 10-13-2024 Magnesium [Mass/Vol] Magnesium [Mass/volume] in Serum or Plasma 1.9-2.7 [facility] MicroAlb Creat Ratio,Uon Albumin DL <= 20 mg/L (U) [Mass/Vol] 0.7 mg/dL Normal 0.0-1.8 [facility] Comment on above: Performed By: #### L IPID #### [facility] [address] [place] [address] [place] #### CPEP #### [facility] , Microalbumin/Creatinine Ratio 9.2 mg/g Normal 0.0-30.0 [facility] Comment on above: Result Comment: 30-3 00 mg/g indicates an increased risk for diabetic nephropathy. Greater than 300 mg/g is consistent with clinical nephropathy. (Am. J. Kidney Disease 1995, 25:107) PERFORMED BY: [place] [address] PATHOLOGIST GEOTECHNICIAN CURTIS CASAS M.D. Performed By: #### L IPID #### [facility] [address] [place] [address] [place] #### CPEP #### [facility] , Microalbumin [Mass/volume] i n UrineOrdered By: Mathieu Naqvi on 10-13-2024 Albumin DL <= 20 mg/L (U) [Mass/Vol] Microalbumin [Mass/volume] in Urine 0.0-1.8 [facility] Mucus [Presence] in Urine by AutomatedOrdered By: Dinah Sepulveda on 10-13-2024 Mucus Auto Ql (U) Mucus [Presence] in Urine by Automated [facility] Nitrite Test strip Ql (U)Ord ered By: Dinah Sepulveda on 10-13-2024 Nitrite Ql (U) Nitrite [Presence] i n Urine by Test strip Negative [facility] No Panel InformationOrdered By: Mathieu Naqvi on 10-13-2024 Estimated GFR (CKD-EPI) 34.741 mL/Min [facility] Creatinine Clearance (Chem N/A [facility] Parathyrin.intact [Mass/volu me] in Serum or PlasmaOrdered By: Dinah Sepulveda on 10-13-2024 Parathyrin.intact [Mass/Vol] Parathyrin.intact [Mass/volume] in Serum or Plasma High 12-88 [facility] Parathyroid Hormone Intacton 10-13-2024 Parathyroid Hormone Intact 224.1 pg/mL High [facility] Comment on above: Result Comment: PERF ORMED BY: [place] [address] PATHOLOGIST GEOTECHNICIAN CURTIS CASAS M.D. Performed By: #### L IPID #### [place] [address] [place] #### CPEP #### [facility] , Phosphate [Mass/volume] in S yoav or PlasmaOrdered By: Mathieu Naqvi on 10-13-2024 Phosphate [Mass/Vol] Phosphate [Mass/volume] in Serum or Plasma 2.5-4.5 [facility] Platelet mean volume Auto (B ld) [Entitic vol]Ordered By: Dinah Sepulveda on 10-13-2024 Platelet mean volume (Bld) [Entitic vol] Platelet mean volume [Entitic volume] in Blood by Automated count 6.3-10.7 [facility] Platelets Auto (Bld) [#/Vol] Ordered By: Dinah Sepulveda on 10-13-2024 Platelets (Bld) [#/Vol] Platelets [#/vol ume] in Blood by Automated count 150-450 [facility] Potassium [Moles/volume] in Serum or PlasmaOrdered By: Mathieu Naqvi on 10-13-2024 Potassium [Moles/Vol] Potassium [Moles/volume] in Serum or Plasma 3.5-5.1 [facility] Protein Creat Ratio Ur Rando mon 10-13-2024 Creatinine, Urine (Random) 76.00 mg/dL Normal [facility] Comment on above: Result Comment: No r eference range established Performed By: #### A JALEESA RAPHAEL, PROCRERAT #### [address] Performed By: #### L IPID #### [facility] [address] [place] [address] #### CPEP #### [facility] , Protein (U) [Mass/Vol] 17 mg/dL High 0-9 [facility] Comment on above: Performed By: #### A JALEESA RAPHAEL, PROCRERAT #### [address] Urine Protein/Creatinine Ratio 224 mg/g{Cre} High 0-200 [facility] Comment on above: Result Comment: PERF ORMED BY: [place] [address] PATHOLOGIST GEOTECHNICIAN CURTIS CASAS M.D. Performed By: #### A JALEESA RAPHAEL, PROCRERAT #### [address] Protein Test strip (U) [Mass /Vol]Ordered By: Dinah Sepulveda on 10-13-2024 Protein (U) [Mass/Vol] Protein [Mass/vol ume] in Urine by Test strip Negative [facility] Protein [Mass/volume] in Ser um or PlasmaOrdered By: Ponce Silvestre on 10-13-2024 Protein [Mass/Vol] Protein [Mass/volume ] in Serum or Plasma 6.4-8.9 [facility] Protein [Mass/volume] in Uri neOrdered By: Dinah Sepulveda on 10-13-2024 Protein (U) [Mass/Vol] Protein [Mass/vol ume] in Urine High 0-9 [facility] RBC Auto (Bld) [#/Vol]Ordere d By: Dinah Sepulveda on 10-13-2024 RBC (Bld) [#/Vol] Erythrocytes [#/volume] in Blood by Automated count 3.60-5.00 [facility] Renal Function Panelon 10-13 Albumin [Mass/Vol] 3.8 g/dL Normal 3.5-5.7 [facility] Comment on above: Performed By: #### V [id number], RENAL #### [facility] [address] Anion gap [Moles/Vol] 11.8 mmol/L Normal 6.0-15.0 [facility] Comment on above: Performed By: #### V [id number], RENAL #### [facility] [address] Calcium [Mass/Vol] 8.8 mg/dL Normal 8.6-10.3 [facility] Comment on above: Performed By: #### V [id number], RENAL #### [address] Chloride [Moles/Vol] 106 mmol/L Normal 98-107 [facility] Comment on above: Performed By: #### V [id number], RENAL #### [facility] [address] [place] [address] [place] CO2 [Moles/Vol] 27.1 mmol/L Normal 21.0-31.0 [facility] Comment on above: Performed By: #### V [id number], RENAL #### [facility] [address] [place] [id number] [facility] Creatinine [Mass/Vol] 1.59 mg/dL High 0.60-1.20 [facility] Comment on above: Performed By: #### V [id number], RENAL #### [facility] [address] [place] [address] [place] Estimated GFR 34.741 mL/Min Normal [facility] Comment on above: Performed By: #### V [id number], RENAL #### [facility] [address] [place] [address] [place] Glucose [Mass/Vol] 108 mg/dL High 70-100 [facility] Comment on above: Result Comment: [place] Glucose Reference Range is dependent on time and content of last meal. Glucose of more than 200 mg/dL in a nonstressed, ambulatory subject supports the diagnosis of Diabetes Mellitus. ADA recommended reference range Performed By: #### V [id number], RENAL #### [facility] [address] [place] [id number] [place] Phosphate [Mass/Vol] 3.4 mg/dL Normal 2.5-4.5 [facility] Comment on above: Performed By: #### V [id number], RENAL #### [facility] [address] [place] [address] [place] Potassium [Moles/Vol] 3.9 mmol/L Normal 3.5-5.1 [facility] Comment on above: Performed By: #### V [id number], RENAL #### [facility] [address] [place] [phone] [place] Sodium [Moles/Vol] 141 mmol/L Normal 136-145 [facility] Comment on above: Performed By: #### V [id number], RENAL #### [facility] [address] [place] [phone] [place] Urea nitrogen [Mass/Vol] 24 mg/dL Normal 7-25 [facility] Comment on above: Performed By: #### V [id number], RENAL #### [facility] [address] [place] [phone] [facility] Serum or plasma albumin/glob ulin mass ratioOrdered By: Ponce Silvestre on 10-13-2024 Albumin/Globulin [Mass ratio] Serum or plasma albumin/globulin mass ratio [facility] Serum or plasma anion gap de terminationOrdered By: Mathieu Naqvi on 10-13-2024 Anion gap [Moles/Vol] Serum or plasma an ion gap determination 6.0-15.0 [facility] Serum or plasma non-glucuron idated bilirubin measurement (mass/volume)Ordered By: Ponce Silvestre on 10-13-2024 Bilirubin.indirect [Mass/Vol] Serum or plasma non-glucuronidated bilirubin measurement (mass/volume) [facility] Serum or plasma total choles terol/high density lipoprotein (HDL) cholesterol mass ratOrdered By: Mathieu Naqvi on 10-13-2024 Cholesterol.total/Vivian sterol in HDL [Mass ratio] Serum or plasma total cholesterol/high density lipoprotein (HDL) cholesterol mass rat <5.0 [facility] Sodium [Moles/volume] in Ser um or PlasmaOrdered By: Mathieu Naqvi on 10-13-2024 Sodium [Moles/Vol] Sodium [Moles/volume ] in Serum or Plasma 136-145 [facility] Specific gravity Test strip (U) [Rel density]Ordered By: Dinah Sepulveda on 10-13-2024 Specific gravity (U) [Rel density] Specific gravity of Urine by Test strip 1.001-1.030 [facility] Triglyceride [Mass/volume] i n Serum or PlasmaOrdered By: Mathieu Naqvi on 10-13-2024 Triglyceride [Mass/Vol] Triglyceride [Mass/volume] in Serum or Plasma 0-149 [facility] Comment on above: TRIG ATP III CLASSIF ICATIONTRIG less than 150 mg/dL NormalTRIG 150-199 mg/dL Borderline highTRIG 200-500 mg/dL High TRIG greater than 500 mg/dL Very highStandard traceable to the Center for Disease Conrtrol and Prevention (CDC) test method. Urate [Mass/volume] in Serum or PlasmaOrdered By: Dinah Sepulveda on 10-13-2024 Urate [Mass/Vol] Urate [Mass/volume] in Serum or Plasma High 2.3-6.6 [facility] Urea nitrogen [Mass/volume] in Serum or PlasmaOrdered By: Mathieu Naqvi on 10-13-2024 Urea nitrogen [Mass/Vol] Urea nitrogen [Mass/volume] in Serum or Plasma 7-25 [facility] Uric Acidon 10-13-2024 Urate [Mass/Vol] 7.7 mg/dL High 2.3-6.6 [facility] Comment on above: Result Comment: PERF ORMED BY: [address] [place] [address] PATHOLOGIST GEOTECHNICIAN CURTIS CASAS M.D. Performed By: #### L IPID #### [address] [place] [address] [place] #### CPEP #### [facility] , Urine Cultureon 10-13-2024 Bacteria identified Cx Nom (U) >100,000 colonies/ml mixed bacterial skin contaminants 2 Days PERFORMED BY: [place] [address] PATHOLOGIST GEOTECHNICIAN CURTIS CASAS M.D. Normal [facility] Comment on above: Performed By: #### L IPID #### [facility] [address] [place] [address] [place] #### CPEP #### [facility] , Urine cultureOrdered By: Summer Sepulveda on 10-13-2024 Bacteria identified Cx Nom (U) Urine culture [facility] Urine microalbumin/creatinin e mass ratioOrdered By: Mathieu Naqvi on 10-13-2024 Albumin/Creatinine DL <= 20 mg/L (U) [Mass ratio] Urine microalbumin/creatinin e mass ratio 0.0-30.0 [facility] Comment on above: 30-300 mg/g indicate s an increased risk for diabetic nephropathy. Greater than 300 mg/g is consistent with clinical nephropathy. (Am. J. Kidney Disease 1995, 25:107) Urine protein/creatinine rat ioOrdered By: Dinah Sepulveda on 10-13-2024 Protein/Creatinine (U) [Ratio] Urine protein/creatinine ratio High 0-200 [facility] Urobilinogen Test strip (U) [Mass/Vol]Ordered By: Dinah Sepulveda on 10-13-2024 Urobilinogen (U) [Mass/Vol] Urobilinogen [Mass/volume] in Urine by Test strip Normal [facility] Vitamin D 25 Hydroxy Totalon 10-13-2024 Vitamin D 25 Hydroxy Total 15.0 ng/mL Low 30-100 [facility] Comment on above: Result Comment: EVEARRDO MIN D STATUS 25(OH)VITAMIN D RANGE (ng/mL) Deficient <20 Insufficient 20 to <30 Sufficient 30 to 100 Reference: Sima MF,Luann BRAND, Merline FERRER, et al. Evaluation,treatment, and prevention of vitamin D deficiency; an Endocrine Society clinical practice guideline. JCEM. 2010; 96(7):1911-. PERFORMED BY: [place] [address] PATHOLOGIST GEOTECHNICIAN CURTIS CASAS M.D. Performed By: #### V [id number], RENAL #### [address] Vitamin D+Metabolites [Mass/ volume] in Serum or PlasmaOrdered By: Mathieu Naqvi on 10-13-2024 Vitamin D+Metabolites [Mass/Vol] Vitamin D+Metabolites [Mass/volume] in Serum or Plasma Low 30-100 [facility] Comment on above: VITAMIN D STATUS 25( [place])VITAMIN D RANGE (ng/mL) Deficient <20 Insufficient 20 to <30Sufficient 30 to 100Reference: Sima MF,Luann BRAND, Merline FERRER et al. Evaluation,treatment, and prevention of vitamin D deficiency; an Endocrine Society clinical practice guideline. JCEM. 2010; 96(7):1911-30. pH Test strip (U)Ordered By: Dinah Sepulveda on 10-13-2024 pH (U) pH of Urine by Test strip 5.0-9.0 [facility] MR head/brain wo/w conon MR head/brain wo/w con [facility] Main [place] [id number] MRI Report Signed Patient: Virgen Gonzales MR# : [id number] : 1955 Acct:[id number] Age/Sex: 69 / F ADM Date: 09/14/24 Loc: [facility] Room: Type: [facility] Attending Dr: Olman De La Rosa [...] Jacinto Gallagher M.D.09/14/2024 5:21 PM Dictation Location: [place] [address] Transcribed By: [facility] 09/14/24 1721 Dictated By: Jacinto Gallagher II, MD 09/14/24 1714 Signed By: 09/14/24 172 Normal [facility] Magnetic resonance imaging r eportOrdered By: Jacinto Gallagher on 09-14-2024 Study report [facility] Main [place] [address] [place] [address] MRI Report Signed Patient: Virgen Gonzales MR#: [id number] : 1955 Acct:[id number] Age/Sex: 69 / F ADM Date: 5 Loc: [facility] Room: Type: [facility] Attending Dr: Olman De La Rosa [...] Jacinto Gallagher M.D.09/14/2024 5:21 PM Dictation Location: [place] [address] Transcribed By: [facility] 09/14/24 172 Dictated By: Jacinto Gallagher II, MD 09/14/241713 Signed By: 09/14/24 172 [facility] Work Phone: X-ray reportOrdered By: Gareth Horn on 09-14-2024 Study report [facility] Main [place] [address] [place] [address] XRay Report Signed Patient: Virgen Gonzales MR#: [id number] : 1955 Acct:[id number] Age/Sex: 69 / F ADM Date: 5 Loc: [facility]XD Room: Type: [facility] Attending Dr: Aretha Valadez APRN Copies [...] Jose Horn M.D.09/14/2024 8:40 PM Dictation Location: [place] [address] Transcribed By: [facility] 09/14/242039 Dictated By: Jose Horn DO 09/14/242034 Signed By: 09/14/242039 [facility] XR tibia fibula RT 2V*on XR tibia fibula RT 2V* [facility] Main [place] [address] [place] [address] XRay Report Signed Patient: Virgen Gonzales MR# : [id number] : 1955 Acct:[id number] Age/Sex: 69 / F ADM Date: 09/14/24 Loc: ICXD Room: Type: [facility] Attending Dr: Aretha Valadez APRN Copies to: Aretha Valdaez APRN Ordering Provider: Aretha Valadez APRN Date [...] Jose Horn M.D.09/14/2024 8:40 PM Dictation Location: [facility]--20 Transcribed By: [facility] 09/14/242039 Dictated By: Jose Horn DO 09/14/242034 Signed By: 09/14/242039 Normal [facility] Ambulatory Visit Summaryon 0 09-07-2024 [...] Kang BOSS MD Where: [facility] [address] [facility] [place] [address]- You Need to Schedule the Following Appointments Follow Up with Kang BOSS MD, URL When: In 6 months Comments: w/TOMEKA Where: [facility] [address], [facility] [place] [address]- Medications What How Much When Instructions Unchanged [...] (Difficulty lobo (more content not included)... Normal [facility] Ambulatory Visit Summary Ambulatory Visit Summary VIRGEN [...] Kang BOSS MD Where: [facility] [address] [place] [address]- You Need to Schedule the Following Appointments Follow Up with Kang BOSS MD, URL When: In 6 months Comments: w/TOMEKA Where: [facility] [address], [place] [address]- Medications What How Much When Instructions Unchanged [...] (Difficulty lobo (more content not included)... 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 [facility], [facility] XR Elbow - right 3 Viewson 0 08-31-2024 Imaging Result: Three views of the right elbow, AP/lateral/oblique, taken today and saved to the permanent medical record. Joint spaces are preserved, no swelling in the olecranon bursa, no spurring at the olecranon, no fat pad sign, no bony lesions [facility] Study observation (narrative) [facility] Office Visiton 08-20-2024 Follow-up visit [id number] Virgen Harris 1955 F Date Provider Department Center 08/20/2024 271-[facility] Family History Problem Relation Age of Onset Heart failure Mother Heart failure Father Heart failure Paternal Grandmother Family Status - Relation Status Age at Mother Father Paternal Grandmother Level of Service:[address] [place] OFFICE/OUTPATIENT [facility] 30 MINUTES Normal [facility] C Urineon 07-09-2024 Bacteria identified Cx [...] Locations R1: This test was performed at: [facility], [address] [place] [address], [address] , , Normal [facility] Comment on above: Performed By: #### 2 [id number] #### [facility] [address] [place] [address] ED Note-Physicianon 07-09-20 ED Note-Physician ED Note-Physician [...] syncopal episode at work. Patient works at [employer] and states all of a sudden she [...] if appl (more content not included)... Normal [facility] Comment on above: Result Comment: Elec tronically Signed By: Kelly Smith PA-C\.br\Date and Time Signed: 07/08/24 02:10 EST\.br\Electronically Co-Signed By: Ean Azevedo M.D.\.br\Date and Time Co-Signed: 07/09/24 07:05 EST ABO/Rh History Checkon 07-08 ABO/Rh History Check Patient discharged prior Normal [facility] Comment on above: Performed By: #### 1 [id number] #### [facility] [address] [place] [address] CT Abdomen/Pelvis w/ Contras ton 07-08-2024 CT [...] 300 Contrast amount in ml's: 130 Normal [facility] CT Chest w/ Contraston 07-08 CT [...] 300 Contrast amount in ml's: 130 Normal [facility] CT Head or Brain w/o Contras [...] MD Transcribed by: JOSH Technologist: YONIS Normal [facility] CT Spine Cervical w/o Contra ston [...] MD Transcribed by: JOSH Technologist: YONIS Normal [facility] ABO/Rhon 07-07-2024 ABO/Rh Positive Invalid Interpretation Code [facility] Comment on above: Performed By: #### 2 [id number] #### [facility] [address] [place] [address] ABSCon 07-07-2024 ABSC Gel Interp Negative Normal [facility] Comment on above: Performed By: #### 1 [id number] #### [facility] [address] [place] [address] B hCG Qualon 07-07-2024 Beta HCG ( test) Ql Negative Normal [facility] Comment on above: Performed By: #### 2 [id number] #### [facility] [address] [place] [address] BLOOD BANKOrdered By: Willard Greenwood on 07-07-2024 ABO/Rh Interp Positive Invalid Interpretation Code [facility] BB Subsection ABSC Gel Interp Negative (07/07/24 6:48 PM) Normal [facility] BB Subsection BMPon 07-07-2024 Anion gap [Moles/Vol] 11 mmol/L Normal 6-16 [facility] Comment on above: Performed By: #### 2 [id number] #### [facility] [address] [place] [address] Calcium [Mass/Vol] 9.1 mg/dL Normal 8.9-11.1 [facility] Comment on above: Performed By: #### 2 [id number] #### [facility] [address] [place] [address] Chloride [Moles/Vol] 104 mmol/L Normal 101-111 [facility] Comment on above: Performed By: #### 2 [id number] #### [facility] [address] [place] [address] CO2 [Moles/Vol] 26 mmol/L Normal 21-31 [facility] Comment on above: Performed By: #### 2 [id number] #### [facility] [address] [place] [address] Creatinine [Mass/Vol] 1.8 mg/dL High 0.5-1.3 [facility] Comment on above: Performed By: #### 2 [id number] #### [facility] [address] [place] [address] Glucose [Mass/Vol] 154 mg/dL Normal 55-199 [facility] Comment on above: Performed By: #### 2 [id number] #### [facility] [address] [place] [address] Potassium [Moles/Vol] 3.6 mmol/L Normal 3.5-5.3 [facility] Comment on above: Performed By: #### 2 [id number] #### [facility] [address] [place] [address] Sodium [Moles/Vol] 137 mmol/L Normal 135-145 [facility] Comment on above: Performed By: #### 2 [id number] #### [facility] [address] [place] [address] Urea nitrogen [Mass/Vol] 23 mg/dL High - [facility] Comment on above: Performed By: #### 2 [id number] #### [facility] [address] [place] [address] Urea nitrogen/Creatinine [Mass ratio] 13 No Units Normal - [facility] Comment on above: Performed By: #### 2 [id number] #### [facility] [address] [place] [address] Blood Bank ID#on 07-07-2024 BBID# [id number] Invalid Interpretation Code [facility] Comment on above: Performed By: #### 1 [id number] #### [facility] [address] [place] [address] CBC w/ Auto Diffon 4 Basophils/100 WBC (Bld) 0.6 % Normal 0.0-2.0 [facility] Comment on above: Result Comment: Amy ection date/time has been modified to: 18:23:00. Previous collection date/time: 18:45:00. Performed By: #### 2 [id number] #### [facility] [address] [place] [address] Basophils/Leukocytes Auto (Bld) [Pure # fraction] 0.1 E9/L Normal 0.0-0.2 [facility] Comment on above: Result Comment: Amy ection date/time has been modified to: 18:23:00. Previous collection date/time: 18:45:00. Performed By: #### 2 [id number] #### [facility] [address] [place] [address] Eosinophils (Bld) [#/Vol] 0.3 E9/L Normal 0.0-0.5 [facility] Comment on above: Result Comment: Amy ection date/time has been modified to: 18:23:00. Previous collection date/time: 18:45:00. Performed By: #### 2 [id number] #### [facility] [address] [place] [address] Eosinophils/100 WBC (Bld) 3.1 % Normal 0.0-8.0 [facility] Comment on above: Result Comment: Amy ection date/time has been modified to: 18:23:00. Previous collection date/time: 18:45:00. Performed By: #### 2 [id number] #### [facility] [address] [place] [address] Erythrocyte distribution width (RBC) [Ratio] 15.1 % High 10.9-14.2 [facility] Comment on above: Result Comment: Amy ection date/time has been modified to: 18:23:00. Previous collection date/time: 18:45:00. Performed By: #### 2 [id number] #### [facility] [address] [place] [address] Hematocrit (Bld) [Volume fraction] 38.3 % Normal 34.0-46.0 [facility] Comment on above: Result Comment: Amy ection date/time has been modified to: 18:23:00. Previous collection date/time: 18:45:00. Performed By: #### 2 [id number] #### [facility] [address] [place] [address] Hemoglobin (Bld) [Mass/Vol] 12.7 g/dL Normal 12.0-16.0 [facility] Comment on above: Result Comment: Amy ection date/time has been modified to: 18:23:00. Previous collection date/time: 18:45:00. Performed By: #### 2 [id number] #### [facility] [address] [place] [address] Lymphocytes (Bld) [#/Vol] 2.4 E9/L Normal 1.0-4.0 [facility] Comment on above: Result Comment: Amy ection date/time has been modified to: 18:23:00. Previous collection date/time: 18:45:00. Performed By: #### 2 [id number] #### [facility] [address] [place] [address] Lymphocytes/100 WBC (Bld) 26.6 % Normal 14.0-50.0 [facility] Comment on above: Result Comment: Amy ection date/time has been modified to: 18:23:00. Previous collection date/time: 18:45:00. Performed By: #### 2 [id number] #### [facility] [address] [place] [address] MCH (RBC) [Entitic mass] 29.9 pg Normal 27.0-34.0 [facility] Comment on above: Result Comment: Amy ection date/time has been modified to: 18:23:00. Previous collection date/time: 18:45:00. Performed By: #### 2 [id number] #### [facility] [address] [place] [address] MCHC (RBC) [Mass/Vol] 33.1 g/dL Normal 31.4-36.0 [facility] Comment on above: Result Comment: Amy ection date/time has been modified to: 18:23:00. Previous collection date/time: 18:45:00. Performed By: #### 2 [id number] #### [facility] [address] [place] [address] MCV (RBC) [Entitic vol] 90.2 fL Normal 80.0-100.0 [facility] Comment on above: Result Comment: Amy ection date/time has been modified to: 18:23:00. Previous collection date/time: 18:45:00. Performed By: #### 2 [id number] #### [facility] [address] [place] [address] Monocytes (Bld) [#/Vol] 0.5 E9/L Normal 0.2-1.0 [facility] Comment on above: Result Comment: Amy ection date/time has been modified to: 18:23:00. Previous collection date/time: 18:45:00. Performed By: #### 2 [id number] #### [facility] [address] [place] [address] Neutrophils (Bld) [#/Vol] 5.8 E9/L Normal 2.0-7.5 [facility] Comment on above: Result Comment: Amy ection date/time has been modified to: 18:23:00. Previous collection date/time: 18:45:00. Performed By: #### 2 [id number] #### [facility] [address] [place] [address] Neutrophils/100 WBC (Bld) 64.2 % Normal 36.0-75.0 [facility] Comment on above: Result Comment: Amy ection date/time has been modified to: 18:23:00. Previous collection date/time: 18:45:00. Performed By: #### 2 [id number] #### [facility] [address] [place] [address] Platelet mean volume (Bld) [Entitic vol] 10.1 fL Normal 6.4-10.8 [facility] Comment on above: Result Comment: Amy ection date/time has been modified to: 18:23:00. Previous collection date/time: 18:45:00. Performed By: #### 2 [id number] #### [facility] [address] [place] [address] Platelets (Bld) [#/Vol] 183.0 E9/L Normal 150.0-500.0 [facility] Comment on above: Result Comment: Amy ection date/time has been modified to: 18:23:00. Previous collection date/time: 18:45:00. Performed By: #### 2 [id number] #### [facility] [address] [place] [address] RBC (Bld) [#/Vol] 4.2 E12/L Low 4.3-5.9 [facility] Comment on above: Result Comment: Amy ection date/time has been modified to: 18:23:00. Previous collection date/time: 18:45:00. Performed By: #### 2 [id number] #### [facility] [address] [place] [address] WBC corrected for nucl RBC Auto (Bld) [#/Vol] 9.1 E9/L Normal 4.0-11.0 [facility] Comment on above: Result Comment: Amy ection date/time has been modified to: 18:23:00. Previous collection date/time: 18:45:00. Performed By: #### 2 [id number] #### [facility] [address] [place] [address] Basophils/100 WBC (Bld) 0.6 % Normal 0.0-2.0 [facility] Comment on above: Performed By: #### 2 [id number] #### [facility] [address] [place] [address] Basophils/Leukocytes Auto (Bld) [Pure # fraction] 0.1 E9/L Normal 0.0-0.2 [facility] Comment on above: Performed By: #### 2 [id number] #### [facility] [address] [place] [address] Eosinophils (Bld) [#/Vol] 0.3 E9/L Normal 0.0-0.5 [facility] Comment on above: Performed By: #### 2 [id number] #### [facility] [address] [place] [address] Eosinophils/100 WBC (Bld) 3.1 % Normal 0.0-8.0 [facility] Comment on above: Performed By: #### 2 [id number] #### [facility] [address] [place] [address] Erythrocyte distribution width (RBC) [Ratio] 15.1 % High 10.9-14.2 [facility] Comment on above: Performed By: #### 2 [id number] #### [facility] [address] [place] [address] Hematocrit (Bld) [Volume fraction] 38.3 % Normal 34.0-46.0 [facility] Comment on above: Performed By: #### 2 [id number] #### [facility] [address] [place] [address] Hemoglobin (Bld) [Mass/Vol] 12.7 g/dL Normal 12.0-16.0 [facility] Comment on above: Performed By: #### 2 [id number] #### [facility] [address] [place] [address] Lymphocytes (Bld) [#/Vol] 2.4 E9/L Normal 1.0-4.0 [facility] Comment on above: Performed By: #### 2 [id number] #### [facility] [address] [place] [address] Lymphocytes/100 WBC (Bld) 26.6 % Normal 14.0-50.0 [facility] Comment on above: Performed By: #### 2 [id number] #### [facility] [address] [place] [address] MCH (RBC) [Entitic mass] 29.9 pg Normal 27.0-34.0 [facility] Comment on above: Performed By: #### 2 [id number] #### [facility] [address] [place] [address] MCHC (RBC) [Mass/Vol] 33.1 g/dL Normal 31.4-36.0 [facility] Comment on above: Performed By: #### 2 [id number] #### [facility] [address] [place] [address] MCV (RBC) [Entitic vol] 90.2 fL Normal 80.0-100.0 [facility] Comment on above: Performed By: #### 2 [id number] #### [facility] [address] [place] [address] Monocytes (Bld) [#/Vol] 0.5 E9/L Normal 0.2-1.0 [facility] Comment on above: Performed By: #### 2 [id number] #### [facility] [address] [place] [address] Neutrophils (Bld) [#/Vol] 5.8 E9/L Normal 2.0-7.5 [facility] Comment on above: Performed By: #### 2 [id number] #### [facility] [address] [place] [address] Neutrophils/100 WBC (Bld) 64.2 % Normal 36.0-75.0 [facility] Comment on above: Performed By: #### 2 [id number] #### [facility] [address] [place] [address] Platelet mean volume (Bld) [Entitic vol] 10.1 fL Normal 6.4-10.8 [facility] Comment on above: Performed By: #### 2 [id number] #### [facility] [address] [place] [address] Platelets (Bld) [#/Vol] 183.0 E9/L Normal 150.0-500.0 [facility] Comment on above: Performed By: #### 2 [id number] #### [facility] [address] [place] [address] RBC (Bld) [#/Vol] 4.2 E12/L Low 4.3-5.9 [facility] Comment on above: Performed By: #### 2 [id number] #### [facility] [address] [place] [address] WBC corrected for nucl RBC Auto (Bld) [#/Vol] 9.1 E9/L Normal 4.0-11.0 [facility] Comment on above: Performed By: #### 2 [id number] #### [facility] [address] [place] [address] CHEMISTRYOrdered By: SYSTEM SYSTEM on 07-07-2024 Amphetamines [...] 07-07-2024 Total CK 149 Int._Unit/L Normal 14-261 [facility] Comment on above: Performed By: #### 2 [id number] #### [facility] [address] [place] [address] COAGULATIONOrdered By: Leslie Chavez on 07-07-2024 aPTT Coag (PPP) [Time] 31.1 s Normal 25.1 - 36.5 second(s) [facility] Auto Coag Comment on above: [...] same coagulation reagent and instrumentation as [facility]. Currently there are no coagulation studies available worldwide for children to 14 days, and no normal ranges. Heparin therapeutic range (represented by Anti-Factor Xa activity of 0.2 - 0.4 U/mL) corresponds to PTT of 56.6 - 109.0 sec. INR Coag (PPP) [Relative time] 0.92 {INR} Invalid Interpretation Code [facility] Comment on above: Interpretive Data: I NR results are specifically intended to assess patients stabilized on long-term Anticoagulation therapy suggested INR s Less Intensive Anticoagulation 2.0 3.0 Conventional Range 3.0 4.5 PT Coag (PPP) [Time] 10.3 s Normal 9.4 - 1 2.5 second(s) [facility] Auto [facility] Comment on above: [...] same coagulation reagent and instrumentation as [facility]. Currently there are no coagulation studies available worldwide for children to 14 days, and no normal ranges. ED Clinical Summaryon 2023 ED Clinical Summary ED Clinical Summary [address] [address] ED Clinical Summary Person Information Name: VIRGEN GONZALES/[facility] Age: 68 Years : 1955 Sex: Female Language: Kinyarwanda PCP: AGGIE DAVIS CNP Marital Status: Visit [...] 22:29:17 07/07/2024 22:29:17 ADDRESS: [id number] [place] [phone] PHYS DOC NOTES: MEDICAL INFORMATION: Prescriptions Given: New Medications [facility] 1987, [address] [place], [place] [id number], [phone] cephalexin (cephalexin 500 mg Cap) 1 Capsules [...] EDUCATION INFORMATION: Instructions: Urinary Tract Infection, Adult, Zhzc-qx-Lcry; Syncope, Adult, Inhy-vg-Xefl; Head Injury, Adult, Eado-ai-Xehb; Contusion, Nqfl-cm-Goih Follow up: With: Address: When: AGGIE DAVIS [address] [place] [phone] Business (more content not included)... Normal [facility] ED Patient Summaryon 024 ED Patient Summary ED Patient Summary [place] [id number] Patient Discharge Instructions Person Information Name: VIRGEN GONZALES Age: 68 Years Arrival Date: 07/07/2024 18:16:48 Discharge Diagnosis: 1:Contusion of occipital region of scalp; 2:Syncope and collapse; 3:Acute lower urinary tract infection Primary Care Physician: AGGIE DAVIS CNP Provider Information Primary Provider: Tiny Fallon DO [employer] Principal:None The exam and treatment you received in the Emergency Department were for an urgent problem and are not intended as complete care. It is important that you follow up with a doctor, nurse practitioner, or physician???s assistant media planner for ongoing care. If your symptoms become [...] AGGIE DAVIS [address] [place] [phone] Business (1) In 3 days 07/10/2024 In the event that this physician does not participate in your insurance network, please consult with your insurance company to find a nearby participating provider. Patient Education Materials: Urinary Tract Infection, Adult, Qgjx-wv-Amsn; Syncope, Adult, Znpv-ho-Gmhg; Head Injury, Adult, Else-rj-Naac; Contusion, Qjga-ju-Zget A MESSAGE TO ALL PATIENTS REGARDING OPIOIDS PRESCRIPTION OPIOIDS: WHAT YOU NEED TO KNOW Prescription opioids can be used to help relieve qpzqpdev-ij-ihadqe pain and are often prescribed following a [...] (www.fda.gov/Drugs/Res ourcesFo (more content not included)... Normal [facility] Ethanolon 07-07-2024 Ethanol Lvl <10 Normal <=11 [facility] Comment on above: Performed By: #### 2 [id number] #### [facility] [address] [place] [address] HEMATOLOGYOrdered By: SYSTEM SYSTEM on 07-07-2024 Basophils/100 [...] 07-07-2024 Albumin [Mass/Vol] 3.9 g/dL Normal 3.3-5.0 [facility] Comment on above: Performed By: #### 2 [id number] #### [facility] [address] [place] [address] Albumin/Globulin (S) [Mass conc ratio] 1.4 Normal 1.1-2.2 [facility] Comment on above: Performed By: #### 2 [id number] #### [facility] [address] [place] [address] ALP [Catalytic activity/Vol] 112 Int._Unit/L High 21-98 [facility] Comment on above: Performed By: #### 2 [id number] #### [facility] [address] [place] [address] ALT No additional P-5'-P [Catalytic activity/Vol] 11 Int._Unit/L Normal 6-46 [facility] Comment on above: Performed By: #### 2 [id number] #### [facility] [address] [place] [address] AST [Catalytic activity/Vol] 13 Int._Unit/L Normal 5-43 [facility] Comment on above: Performed By: #### 2 [id number] #### [facility] [address] [place] [address] Bilirubin [Mass/Vol] 0.4 mg/dL Normal 0.0-1.1 [facility] Comment on above: Performed By: #### 2 [id number] #### [facility] [address] [place] [address] Bilirubin.direct [Mass/Vol] 0.1 mg/dL Normal 0.0-0.4 [facility] Comment on above: Performed By: #### 2 [id number] #### [facility] [address] [place] [address] Bilirubin.indirect [Mass or moles/Vol] 0.3 mg/dL Normal 0.1-0.9 [facility] Comment on above: Performed By: #### 2 [id number] #### [facility] [address] [place] [address] Globulin (S) [Mass/Vol] 2.8 g/dL Normal 1.4-4.0 [facility] Comment on above: Performed By: #### 2 [id number] #### [facility] [address] [place] [address] Protein [Mass/Vol] 6.7 g/dL Normal 6.0-7.8 [facility] Comment on above: Performed By: #### 2 559323 #### [facility] [address] [place] [address] Lactic Acidon 07-07-2024 Lactic Acid Lvl 0.9 mmol/L Normal 0.5-2.2 [facility] Comment on above: Performed By: #### 2 [id number] #### [facility] [address] [place] [address] Lipase Levelon 07-07-2024 Lipase [Catalytic activity/Vol] 22 U/L Normal 13-58 [facility] Comment on above: Performed By: #### 2 [id number] #### [facility] [address] [place] [address] Magnesiumon 07-07-2024 Magnesium [Mass/Vol] 2.2 mg/dL Normal 1.3-2.4 [facility] Comment on above: Performed By: #### 2 897652 #### [facility] [address] [place] [address] Myoglobinon 07-07-2024 Myoglobin [Mass/Vol] 128 ng/mL High <=69 [facility] Comment on above: Performed By: #### 2 [id number] #### [facility] [address] [place] [address] PT & PTTon 07-07-2024 aPTT Coag (PPP) [Time] 31.1 second(s) Normal 25.1-36.5 [facility] Comment on above: Result Comment: Para [...] same coagulation reagent and instrumentation as [facility]. Currently there are no coagulation studies available worldwide for children to 14 days, and no normal ranges. Heparin therapeutic range (represented by Anti-Factor Xa activity of 0.2 - 0.4 U/mL) corresponds to PTT of 56.6 - 109.0 sec. Performed By: #### 1 [id number] #### [facility] [address] [place] [address] INR Coag (PPP) [Relative time] 0.92 {INR} Invalid Interpretation Code [facility] Comment on above: Result Comment: INR results are specifically intended to assess patients stabilized on long-term Anticoagulation therapy suggested INR???s ???Less Intensive Anticoagulation??? 2.0 ??? 3.0 Conventional Range 3.0 ??? 4.5 Performed By: #### 1 [id number] #### [facility] [address] [place] [address] PT Coag (PPP) [Time] 10.3 second(s) Normal 9.4-12.5 [facility] Comment on above: Result Comment: 15 [...] same coagulation reagent and instrumentation as [facility]. Currently there are no coagulation studies available worldwide for children to 14 days, and no normal ranges. Performed By: #### 1 [id number] #### [facility] [address] [place] [address] SEROLOGYOrdered By: Gerri Chavez on 07-07-2024 Beta HCG ( test) Ql Negative (07/07/24 6:23 PM) Normal [facility] Man Sero Troponinon 07-07-2024 Troponin HS 10.70 pg/mL Normal 10.10-27.10 [facility] Comment on above: Result Comment: The 95% CI (Confidence Interval) PPV (Positive Predictive Value) for myocardial infarction in females is 38 pg/mL, in males 51 pg/mL. The results should be used in conjunction with clinical conditions of myocardial infarction. (Access High Sensitivity Troponin I Instructions For Use, Lalito Torri, February 2018) Performed By: #### 2 [id number] #### [facility] [address] [place] [address] U Drug Screenon 07-07-2024 Amphetamines Screen method >1000 ng/mL Ql (U) Negative Normal NEGATIVE [facility] Comment on above: Result Comment: Nega tive Cutoff: <1000 ng/mL Performed By: #### 2 [id number] #### [facility] [address] [place] [address] Barbiturates Screen Ql (U) Negative Normal NEGATIVE [facility] Comment on above: Result Comment: Nega tive Cutoff: <200 ng/mL Performed By: #### 2 [id number] #### [facility] [address] [place] [address] Benzodiazepines Ql (U) Negative Normal NEGATIVE [facility] Comment on above: Result Comment: Nega tive Cutoff: <200 ng/mL Performed By: #### 2 [id number] #### [facility] [address] [place] [address] Cannabinoids Screen Ql (U) Negative Normal NEGATIVE [facility] Comment on above: Result Comment: Nega tive Cutoff: <50 ng/mL Performed By: #### 2 [id number] #### [facility] [address] [place] [address] Cocaine Ql (U) Negative Normal NEGATIVE [facility] Comment on above: Result Comment: Nega tive Cutoff: <300 ng/mL Performed By: #### 2 [id number] #### [facility] [address] [place] [address] Opiates Screen Ql (U) Negative Normal NEGATIVE [facility] Comment on above: Result Comment: Nega tive Cutoff: <300 ng/mL Performed By: #### 2 [id number] #### [facility] [address] [place] [address] Phencyclidine Screen method >25 ng/mL Ql (U) Negative Normal NEGATIVE [facility] Comment on above: Result Comment: Nega tive Cutoff: <25 ng/mL These drug screen results are to be used for medical (i.e., treatment) purposes only. Unconfirmed drug screening results must not be used for non-medical purposes (e.g., employment testing, legal testing). Performed By: #### 2 [id number] #### [facility] [address] [place] [address] U Fentanyl Negative Normal NEGATIVE [facility] Comment on above: Result Comment: Nega tive Cutoff: <5 ng/mL These drug screen results are to be used for medical (i.e., treatment) purposes only. Unconfirmed drug screening results must not be used for non-medical purposes (e.g., employment testing, legal testing). Performed By: #### 2 [id number] #### [facility] [address] [place] [address] UA with Cult Rflxon 07-07-20 24 Bacteria Auto Ql (U) 1+ /HPF Abnormal Trace [facility] Comment on above: Performed By: #### 4 [id number] #### [facility] [address] [place] [address] Bilirubin Ql (U) Negative Normal Negative [facility] Comment on above: Performed By: #### 4 [id number] #### [facility] [address] [place] [address] Clarity (U) Ex.Turbid Abnormal Clear [facility] Comment on above: Performed By: #### 4 [id number] #### [facility] [address] [place] [address] Color (U) [place] Abnormal Yellow [facility] Comment on above: Result Comment: Micr oscopic readings are only performed on those samples that meet specific criteria set forth by [facility]. Performed By: #### 4 [id number] #### [facility] [address] [place] [address] Epithelial cells.squamous Auto (Urine sed) [#/Area] >10 Invalid Interpretation Code [facility] Comment on above: Performed By: #### 4 [id number] #### [facility] [address] [place] [address] Glucose Ql (U) 4+ mg/dL Abnormal Negative [facility] Comment on above: Performed By: #### 4 [id number] #### [facility] [address] [place] [address] Hemoglobin Auto test strip (U) [Mass/Vol] 1+ mg/dL Abnormal Negative [facility] Comment on above: Performed By: #### 4 [id number] #### [facility] [address] [place] [address] Ketones Auto test strip Ql (U) Negative Normal Negative [facility] Comment on above: Performed By: #### 4 [id number] #### [facility] [address] [place] [address] Leukocyte esterase Auto test strip Ql (U) 500 Isidoro/uL Abnormal Negative [facility] Comment on above: Performed By: #### 4 [id number] #### [facility] [address] [place] [address] Mucus Auto Ql (U) Negative Normal Negative [facility] Comment on above: Performed By: #### 4 [id number] #### [facility] [address] [place] [address] Nitrite Auto test strip Ql (U) Negative Normal Negative [facility] Comment on above: Performed By: #### 4 [id number] #### [facility] [address] [place] [address] pH (U) 6.5 [pH] Invalid Interpretation Code 5.0-9.0 [facility] Comment on above: Performed By: #### 4 [id number] #### [facility] [address] [place] [address] Protein Ql (U) Trace Abnormal Negative [facility] Comment on above: Performed By: #### 4 [id number] #### [facility] [address] [place] [address] RBC Ql (U) 31-75 Abnormal 0-3 [facility] Comment on above: Performed By: #### 4 [id number] #### [facility] [address] [place] [address] Specific gravity (U) [Rel density] 1.019 Invalid Interpretation Code 1.005-1.030 [facility] Comment on above: Performed By: #### 4 [id number] #### [facility] [address] [place] [address] Urobilinogen (U) [Mass/Vol] Negative Normal Negative [facility] Comment on above: Performed By: #### 4 [id number] #### [facility] [address] [place] [address] WBC Auto (Urine sed) [#/Area] 31-75 Abnormal 0-5 [facility] Comment on above: Performed By: #### 4 [id number] #### [facility] [address] [place] [address] Yeast.budding Computer assisted Ql (U) Trace Abnormal [facility] Comment on above: Performed By: #### 4 [id number] #### [facility] [address] [place] [address] Type of Urine collection method Clean Catch Normal [facility] Comment on above: Performed By: #### 4 [id number] #### [facility] [address] [place] [address] URINALYSISOrdered By: SYSTEM SYSTEM on 07-07-2024 Bacteria Auto Ql (U) 1+ /HPF Invalid Interpretation Code Trace/HPF [facility]A Auto SS Bilirubin Ql (U) Negative Normal Negativemg/ dL [facility] UA Auto SS Clarity (U) Ex.Turbid *ABN* (07/07/24 7:41 PM) Invalid Interpretation Code Clear [facility] UA Auto SS Color (U) Light[place] 3 *ABN* (07/07/24 7:41 PM) Invalid Interpretation Code Yellow [facility] UA Auto SS Comment on above: Interpretive Data: M icroscopic readings are only performed on those samples that meet specific criteria set forth by [facility]. Epithelial cells.squamous Auto (Urine sed) [#/Area] >10 graded/HPF Invalid Interpretation Code [facility] UA Auto SS Glucose Ql (U) 4+ mg/dL Invalid Interpretation Code Negativemg/ dL [facility] [place] UA Auto SS Hemoglobin Auto test strip [...] [facility] UA Auto SS URINALYSISOrdered By: Gloria Smtih on 07-07-2024 UA Spec Desc Clean Catch (07/07/24 7:41 PM) Normal [facility] UA Auto SS Work Phone: eGFRon 07-07-2024 eGFR 30 mL/min/1.73 m2 Low >=59 [facility] Comment on above: Performed By: #### [id number] #### [facility] [address] [place] [address] Thyrotropin [Units/volume] i n Serum or PlasmaOrdered By: Da Phillip on 03-26-2024 TSH Qn 1.31 m[IU]/L 0.45-5.33 [facility] Thyroxine (T4) [Mass/volume] in Serum or PlasmaOrdered By: Da Phillip on 03-26-2024 T4 [Mass/Vol] 9.37 ug/dL 5.39-11.82 [facility] Triiodothyronine (T3) [Mass/ volume] in Serum or PlasmaOrdered By: Da Phillip on 03-26-2024 T3 [Mass/Vol] 0.90 ng/mL 0.87-1.78 [facility] Nonvisit Note - PTon Nonvisit Note - PT Pt cancelled reassessment due to being sick. AMK Normal [facility] Nonvisit Note - PTon 024 Nonvisit Note - PT Pt no showed for 171 5 appointment. Normal [facility] Nonvisit Note - PTon Nonvisit Note - PT Pt called to cancel as she is ill. [facility] Consent for Treatmenton 10-28 Consent for Treatment [id number] [id number]#1.0 0TIFF [facility] PT - Assessmentson PT - Assessments [id number] 22 [id number]#1.0 0TIFF [facility] PT - Consentson 11-19-2023 PT - Consents [id number] 22 [id number]#1.0 0TIFF [facility] Insurance Correspondenceon 0 11-12-2023 Insurance Correspondence [id number]#1. 00TIFF [facility] PT - Orderson 11-11-2023 PT - Orders [id number] 01 [id number]#1. 00TIFF [facility] L Inj/Asp: L kneeon 08-27-19 24 Sue BEN Henning T 09/02/2023 8:37 AM L Inj/Asp: L knee on 08/27/2023 3:43 PM Indications: pain Details: 21 G needle, lateral approach Medications: 16 mg hylan 16 MG/2ML Consent was given by the patient. [facility], [facility]1983 PROF 14(COMP METB)on 023 Albumin [Mass/Vol] 3.2 g/dL Critically low 3.4-5.0 [facility] Comment on above: Performed By: #### T SH, CMP, T7, LIPID #### [facility] [address] [address] [address] Danay De Los Santos Albumin/Globulin [Mass ratio] 1.0 {ratio} Normal [facility] Comment on above: Performed By: #### T SH, CMP, T7, LIPID #### [facility] [address] [address] [address] Danay De Los Santos ALP [Catalytic activity/Vol] 92 U/L Normal 46-116 [facility] Comment on above: Performed By: #### T SH, CMP, T7, LIPID #### [facility] [address] [address] [address] Danay De Los Santos ALT [Catalytic activity/Vol] 21 U/L Normal 14-59 [facility] Comment on above: Performed By: #### T SH, CMP, T7, LIPID #### [facility] [address] [address] [address] Danay De Los Santos Anion gap [Moles/Vol] 13.2 mmol/L Normal [facility] Comment on above: Performed By: #### T SH, CMP, T7, LIPID #### [facility] [address] [address] [address] Danay De Los Santos AST [Catalytic activity/Vol] 14 U/L Critically low 15-37 [facility] Comment on above: Performed By: #### T SH, CMP, T7, LIPID #### [facility] [address] [address] [address] Danay De Los Santos Bilirubin [Mass/Vol] 0.2 mg/dL Normal 0.2-1.0 [facility] Comment on above: Performed By: #### T SH, CMP, T7, LIPID #### [facility] [address] [address] [address] Danay De Los Santos Calcium [Mass/Vol] 8.6 mg/dL Normal 8.5-10.1 [facility] Comment on above: Performed By: #### T SH, CMP, T7, LIPID #### [facility] [address] [address] [address] Danay De Los Santos Chloride [Moles/Vol] 105 mmol/L Normal 98-107 [facility] Comment on above: Performed By: #### T SH, CMP, T7, LIPID #### [facility] [address] [address] [address] Danay De Los Santos CO2 [Moles/Vol] 27.9 mmol/L Normal 21.0-32.0 [facility] Comment on above: Performed By: #### T SH, CMP, T7, LIPID #### [facility] [address] [address] [address] Danay De Los Santos Creatinine [Mass/Vol] 1.47 mg/dL Critically high 0.55-1.02 [facility] Comment on above: Performed By: #### T SH, CMP, T7, LIPID #### [facility] [address] [place] [address] Dr. Danay De Los Santos EGFR-AF TRISTANIAN 43 mL/min/1.73m2 Critically low >=60 [facility] Comment on above: Performed By: #### T SH, CMP, T7, LIPID #### [facility] [address] [place] [address] Dr. Danay De Los Santos EGFR-NON AF TRISTANIAN 35 mL/min/1.73m2 Critically low >=60 [facility] Comment on above: Performed By: #### T SH, CMP, T7, LIPID #### [facility] [address] [place] [address] Dr. Danay De Los Santos Globulin (S) [Mass/Vol] 3.3 g/dL Normal [facility] Comment on above: Performed By: #### T SH, CMP, T7, LIPID #### [facility] [address] [place] [address] Dr. Danay De Los Santos Glucose [Mass/Vol] 145 mg/dL Critically high 74-106 [facility] Comment on above: Performed By: #### T SH, CMP, T7, LIPID #### [facility] [address] [place] [address] Dr. Danay De Los Santos Potassium [Moles/Vol] 4.1 mmol/L Normal 3.5-5.1 [facility] Comment on above: Performed By: #### T SH, CMP, T7, LIPID #### [facility] [address] [place] [address] Dr. Danay De Los Santos Protein [Mass/Vol] 6.5 g/dL Normal 6.4-8.2 [facility] Comment on above: Performed By: #### T SH, CMP, T7, LIPID #### [facility] [address] [place] [address] Dr. Danay De Los Santos Sodium [Moles/Vol] 142 mmol/L Normal 136-145 [facility] Comment on above: Performed By: #### T SH, CMP, T7, LIPID #### [facility] [address] [place] [address] Dr. Danay De Los Santos Urea nitrogen [Mass/Vol] 22.0 mg/dL Critically high 7.0-18.0 [facility] Comment on above: Performed By: #### T SH, CMP, T7, LIPID #### [facility] [address] [place] [address] Dr. Danay De Los Santos Urea nitrogen/Creatinine [Mass ratio] 15.0 mg/mg Normal [facility] Comment on above: Performed By: #### T SH, CMP, T7, LIPID #### [facility] [address] [place] [address] Dr. Danay De Los Santos PROF CHEM 8 (BAS METB)on Anion gap [Moles/Vol] 12.1 mmol/L Normal [facility] Comment on above: Performed By: #### B MP #### [facility] [address] [place] [address] Dr. Danay De Los Santos Calcium [Mass/Vol] 8.8 mg/dL Normal 8.5-10.1 [facility] Comment on above: Performed By: #### B MP #### [facility] [address] [place] [address] Dr. Danay De Los Santos Chloride [Moles/Vol] 103 mmol/L Normal 98-107 [facility] Comment on above: Performed By: #### B MP #### [facility] [address] [address] [address] Danay De Los Santos CO2 [Moles/Vol] 28.6 mmol/L Normal 21.0-32.0 [facility] Comment on above: Performed By: #### B MP #### [facility] [address] [address] [address] Danay De Los Santos Creatinine [Mass/Vol] 2.08 mg/dL Critically high 0.55-1.02 [facility] Comment on above: Performed By: #### B MP #### [facility] [address] [address] [address] Danay De Los Santos EGFR-AF TRISTANIAN 29 mL/min/1.73m2 Critically low >=60 [facility] Comment on above: Performed By: #### B MP #### [facility] [address] [address] [address] Danay De Los Santos EGFR-NON AF TRISTANIAN 24 mL/min/1.73m2 Critically low >=60 [facility] Comment on above: Performed By: #### B MP #### [facility] [address] [address] [address] Danay De Los Sanots Glucose [Mass/Vol] 259 mg/dL Critically high 74-106 [facility] Comment on above: Performed By: #### B MP #### [facility] [address] [address] [address] Danay De Los Santos Potassium [Moles/Vol] 4.7 mmol/L Normal 3.5-5.1 [facility] Comment on above: Performed By: #### B MP #### [facility] [address] [address] [address] Danay De Los Santos Sodium [Moles/Vol] 139 mmol/L Normal 136-145 [facility] Comment on above: Performed By: #### B MP #### [facility] [address] [address] [address] Danay De Los Santos Urea nitrogen [Mass/Vol] 27.0 mg/dL Critically high 7.0-18.0 [facility] Comment on above: Performed By: #### B MP #### [facility] [address] [place] [address] Dr. Danay De Los Santos Urea nitrogen/Creatinine [Mass ratio] 13.0 mg/mg Normal [facility] Comment on above: Performed By: #### B MP #### [facility] [address] [place] [address] Dr. Danay De Los Santos INSULINon 12-17-2022 Insulin 11.1 uIU/mL Normal 2.6-24.9 [facility] Comment on above: Performed By: #### I NSULIN #### [facility] [address] [place] [address] Dr. Danay De Los Santos BNPon 12-15-2022 Natriuretic peptide B (Bld) [Mass/Vol] 110.0 pg/mL Normal <=900.0 [facility] Comment on above: Performed By: #### T SH, CMP, T7, LIPID #### [facility] [address] [place] [address] Dr. Danay De Los Santos CBC AUTO DIFFon 12-15-2022 BASO # 0.1 103/ul Normal 0.0-0.1 [facility] Comment on above: Performed By: #### T SH, CMP, T7, LIPID #### [facility] [address] [place] [address] Dr. Danay De Los Santos Basophils/100 WBC (Bld) 0.5 % Normal 0.2-2.0 [facility] Comment on above: Performed By: #### T SH, CMP, T7, LIPID #### [facility] [address] [place] [address] Dr. Danay De Los Santos EO # 0.7 103/ul Normal 0.0-0.7 [facility] Comment on above: Performed By: #### T SH, CMP, T7, LIPID #### [facility] [address] [place] [address] Dr. Danay De Los Santos Eosinophils/100 WBC (Bld) 6.0 % Normal 0.9-7.0 [facility] Comment on above: Performed By: #### T SH, CMP, T7, LIPID #### [facility] [address] [place] [address] Dr. Danay De Los Santos Erythrocyte distribution width (RBC) [Ratio] 15.6 % Critically high 11.0-15.0 [facility] Comment on above: Performed By: #### T SH, CMP, T7, LIPID #### [facility] [address] [place] [address] Dr. Danay De Los Santos Hematocrit (Bld) [Volume fraction] 40.2 % Normal 36.0-48.0 [facility] Comment on above: Performed By: #### T SH, CMP, T7, LIPID #### [facility] [address] [place] [address] Dr. Danay De Los Santos Hemoglobin (Bld) [Mass/Vol] 12.6 g/dL Normal 12.0-16.0 [facility] Comment on above: Performed By: #### T SH, CMP, T7, LIPID #### [facility] [address] [place] [address] Dr. Danay De Los Santos IG # 0.06 10e3/ul Critically high 0.00-0.03 [facility] Comment on above: Performed By: #### T SH, CMP, T7, LIPID #### [facility] [address] [place] [address] Dr. Danay De Los Santos IG % 0.5 % Normal 0.0-0.5 [facility] Comment on above: Performed By: #### T SH, CMP, T7, LIPID #### [facility] [address] [place] [address] Dr. Danay De Los Santos LYMPH # 3.2 103/ul Normal 1.2-3.8 [facility] Comment on above: Performed By: #### T SH, CMP, T7, LIPID #### [facility] [address] [place] [address] Dr. Danay De Los Santos Lymphocytes/100 WBC (Bld) 28.9 % Normal 20.5-60.0 [facility] Comment on above: Performed By: #### T SH, CMP, T7, LIPID #### [facility] [address] [address] [address] Danya De Los Santos MANUAL DIFF REQ NO Normal [facility] Comment on above: Performed By: #### T SH, CMP, T7, LIPID #### [facility] [address] [place] [address] Dr. Danay De Los Santos MCH (RBC) [Entitic mass] 27.3 pg Normal 26.7-34.0 [facility] Comment on above: Performed By: #### T SH, CMP, T7, LIPID #### [facility] [address] [place] [address] Dr. Danay De Los Santos MCHC (RBC) [Mass/Vol] 31.3 g/dL Normal 29.9-35.2 [facility] Comment on above: Performed By: #### T SH, CMP, T7, LIPID #### [facility] [address] [place] [address] Dr. Danay De Los Santos MCV (RBC) [Entitic vol] 87.2 fL Normal 81.0-99.0 [facility] Comment on above: Performed By: #### T SH, CMP, T7, LIPID #### [facility] [address] [place] [address] Dr. Danay De Los Santos MONO # 0.6 103/ul Normal 0.3-0.8 [facility] Comment on above: Performed By: #### T SH, CMP, T7, LIPID #### [facility] [address] [place] [address] Dr. Danay De Los Santos Monocytes/100 WBC (Bld) 5.7 % Normal 1.7-12.0 [facility] Comment on above: Performed By: #### T SH, CMP, T7, LIPID #### [facility] [address] [place] [address] Dr. Danay De Los Santos NEUT # 6.4 103/ul Normal 1.4-6.5 [facility] Comment on above: Performed By: #### T SH, CMP, T7, LIPID #### [facility] [address] [place] [address] Dr. Danay De Los Santos Neutrophils/100 WBC (Bld) 58.4 % Normal 43.0-75.0 [facility] Comment on above: Performed By: #### T SH, CMP, T7, LIPID #### [facility] [address] [place] [address] Dr. Danay De Los Santos Platelet mean volume (Bld) [Entitic vol] 10.6 fL Normal 9.5-13.5 [facility] Comment on above: Performed By: #### T SH, CMP, T7, LIPID #### [facility] [address] [place] [address] Dr. Danay De Los Santos PLT 251 103/ul Normal 150-450 [facility] Comment on above: Performed By: #### T SH, CMP, T7, LIPID #### [facility] [address] [place] [address] Dr. Danay De Los Santos RBC 4.61 106/ul Normal 4.20-5.40 [facility] Comment on above: Performed By: #### T SH, CMP, T7, LIPID #### [facility] [address] [place] [address] Dr. Danay De Los Santos WBC 10.9 103/ul Normal 4.0-11.0 [facility] Comment on above: Performed By: #### T SH, CMP, T7, LIPID #### [facility] [address] [place] [address] Dr. Danay De Los Santos FREE THYROXINE INDEX T7on FTI 2.87 Normal 1.30-4.50 [facility] Comment on above: Performed By: #### T SH, CMP, T7, LIPID #### [facility] [address] [place] [address] Dr. Danay De Los Santos T3U 35.0 % Normal 30.0-39.0 [facility] Comment on above: Performed By: #### T SH, CMP, T7, LIPID #### [facility] [address] [place] [address] Dr. Danay De Los Santos T4 [Mass/Vol] 8.20 ug/dL Normal 4.80-13.90 [facility] Comment on above: Performed By: #### T SH, CMP, T7, LIPID #### [facility] [address] [address] [address] Danay De Los Santos GLYCOHEMOGLOBIN A1Con 2022 ADA RECOMMENDATION SEE BELOW Normal [facility] Comment on above: Result Comment: ADA RECOMMENDED LIMIT 4.0 - 6.0 ADA THERAPEUTIC TARGET < 7.0 ACTION SUGGESTED > 7.0 Performed By: #### A 1C #### [facility] [address] [address] [address] Danay De Los Santos Glucose [Mass/Vol] 203 mg/dL Normal [facility] Comment on above: Performed By: #### A 1C #### [facility] [address] [address] [address] Danay De Los Santos HbA1c (Bld) [Mass fraction] 8.7 % Critically high 4.5-6.2 [facility] Comment on above: Performed By: #### A 1C #### [facility] [address] [address] [address] Danay De Los Santos IRONon 12-15-2022 Iron [Mass/Vol] 39.0 ug/dL Critically low 50.0-170.0 [facility] Comment on above: Performed By: #### T SH, CMP, T7, LIPID #### [facility] [address] [place] [address] Dr. Danay De Los Santos LIPID PROFILEon 12-15-2022 CHOL-HDL RATIO NORM SEE BELOW Normal [facility] Comment on above: Result Comment: 3.3 - 4.4 LOW RISK 4.4 - 7.1 AVERAGE RISK 7.1 - 11.0 MODERATE RISK >11.0 HIGH RISK Performed By: #### T SH, CMP, T7, LIPID #### [facility] [address] [address] [address] Danay De Los Santos Cholesterol [Mass/Vol] 123 mg/dL Normal <=200 [facility] Comment on above: Performed By: #### T SH, CMP, T7, LIPID #### [facility] [address] [address] [address] Danay De Los Santos Cholesterol in HDL [Mass/Vol] 40 mg/dL Normal 40-60 [facility] Comment on above: Performed By: #### T SH, CMP, T7, LIPID #### [facility] [address] [address] [address] Danay De Los Santos Cholesterol in LDL [Mass/Vol] 70.4 mg/dL Normal [facility] Comment on above: Performed By: #### T SH, CMP, T7, LIPID #### [facility] [address] [address] [address] Danay De Los Santos Cholesterol.total/Vivian sterol in HDL [Mass ratio] 3.1 {ratio} Normal [facility] Comment on above: Performed By: #### T SH, CMP, T7, LIPID #### [facility] [address] [address] [address] Danay De Los Santos HDL NORMAL > or = 60 mg/dl - LO W CARDIOVASCULAR RISK <40 mg/dl - HIGH CARDIOVASCULAR RISK Normal [facility] Comment on above: Performed By: #### T SH, CMP, T7, LIPID #### [facility] [address] [address] [address] Danay De Los Santos LDL CALC NORMAL SEE BELOW Normal [facility] Comment on above: Result Comment: <100 mg/dl OPTIMAL 100 - 129 mg/dl NEAR OR ABOVE OPTIMAL 130 - 159 mg/dl BORDERLINE HIGH 160 - 189 mg/dl HIGH >190 mg/dl VERY HIGH Performed By: #### T SH, CMP, T7, LIPID #### [facility] [address] [address] [address] Danay De Los Santos Triglyceride [Mass/Vol] 63 mg/dL Normal <=150 [facility] Comment on above: Performed By: #### T SH, CMP, T7, LIPID #### [facility] [address] [address] [address] Danay De Los Santos VLDL CALC 12.6 mg/dL Normal [facility] Comment on above: Performed By: #### T SH, CMP, T7, LIPID #### [facility] [address] [address] [address] Danay De Los Santos PROF 14(COMP METB)on 023 Albumin [Mass/Vol] 3.3 g/dL Critically low 3.4-5.0 [facility] Comment on above: Performed By: #### T SH, CMP, T7, LIPID #### [facility] [address] [place] [address] Dr. Danay De Los Santos Albumin/Globulin [Mass ratio] 1.0 {ratio} Normal [facility] Comment on above: Performed By: #### T SH, CMP, T7, LIPID #### [facility] [address] [place] [address] Dr. Danay De Los Santos ALP [Catalytic activity/Vol] 94 U/L Normal 46-116 [facility] Comment on above: Performed By: #### T SH, CMP, T7, LIPID #### [facility] [address] [place] [address] Dr. Danay De Los Santos ALT [Catalytic activity/Vol] 17 U/L Normal 14-59 [facility] Comment on above: Performed By: #### T SH, CMP, T7, LIPID #### [facility] [address] [place] [address] Dr. Danay De Los Santos Anion gap [Moles/Vol] 14.3 mmol/L Normal [facility] Comment on above: Performed By: #### T SH, CMP, T7, LIPID #### [facility] [address] [place] [address] Dr. Danay De Los Santos AST [Catalytic activity/Vol] 11 U/L Critically low 15-37 [facility] Comment on above: Performed By: #### T SH, CMP, T7, LIPID #### [facility] [address] [place] [address] Dr. Danay De Los Santos Bilirubin [Mass/Vol] 0.3 mg/dL Normal 0.2-1.0 [facility] Comment on above: Performed By: #### T SH, CMP, T7, LIPID #### [facility] [address] [place] [address] Dr. Danay De Los Santos Calcium [Mass/Vol] 9.1 mg/dL Normal 8.5-10.1 [facility] Comment on above: Performed By: #### T SH, CMP, T7, LIPID #### [facility] [address] [address] [address] Danay De Los Santos Chloride [Moles/Vol] 105 mmol/L Normal 98-107 [facility] Comment on above: Performed By: #### T SH, CMP, T7, LIPID #### [facility] [address] [address] [address] Danay De Los Santos CO2 [Moles/Vol] 29.3 mmol/L Normal 21.0-32.0 [facility] Comment on above: Performed By: #### T SH, CMP, T7, LIPID #### [facility] [address] [address] [address] Danay De Los Santos Creatinine [Mass/Vol] 1.53 mg/dL Critically high 0.55-1.02 [facility] Comment on above: Performed By: #### T SH, CMP, T7, LIPID #### [facility] [address] [place] [address] Dr. Danay De Los Santos EGFR-AF TRISTANIAN 41 mL/min/1.73m2 Critically low >=60 [facility] Comment on above: Performed By: #### T SH, CMP, T7, LIPID #### [facility] [address] [address] [address] Danay De Los Santos EGFR-NON AF TRISTANIAN 34 mL/min/1.73m2 Critically low >=60 [facility] Comment on above: Performed By: #### T SH, CMP, T7, LIPID #### [facility] [address] [address] [address] Danay De Los Santos Globulin (S) [Mass/Vol] 3.4 g/dL Normal [facility] Comment on above: Performed By: #### T SH, CMP, T7, LIPID #### [facility] [address] [address] [address] Danay De Los Santos Glucose [Mass/Vol] 192 mg/dL Critically high 74-106 [facility] Comment on above: Performed By: #### T SH, CMP, T7, LIPID #### [facility] [address] [address] [address] Danay De Los Santos Potassium [Moles/Vol] 4.6 mmol/L Normal 3.5-5.1 [facility] Comment on above: Performed By: #### T SH, CMP, T7, LIPID #### [facility] [address] [address] [address] Danay De Los Santos Protein [Mass/Vol] 6.7 g/dL Normal 6.4-8.2 [facility] Comment on above: Performed By: #### T SH, CMP, T7, LIPID #### [facility] [address] [address] [address] Danay De Los Santos Sodium [Moles/Vol] 144 mmol/L Normal 136-145 [facility] Comment on above: Performed By: #### T SH, CMP, T7, LIPID #### [facility] [address] [address] [address] Danay De Los Santos Urea nitrogen [Mass/Vol] 25.0 mg/dL Critically high 7.0-18.0 [facility] Comment on above: Performed By: #### T SH, CMP, T7, LIPID #### [facility] [address] [place] [address] Dr. Danay De Los Satnos Urea nitrogen/Creatinine [Mass ratio] 16.3 mg/mg Normal [facility] Comment on above: Performed By: #### T SH, CMP, T7, LIPID #### [facility] [address] [place] [address] Dr. Danay De Los Santos TSHon 12-15-2022 TSH 2.181 uIU/mL Normal 0.358-3.740 [facility] Comment on above: Performed By: #### T SH, CMP, T7, LIPID #### [facility] [address] [place] [address] Dr. Danay De Los Santos VITAMIN D 25 OHon 12-15-2022 VIT D 25-OH 32.9 ng/mL Normal [facility] Comment on above: Performed By: #### T SH, CMP, T7, LIPID #### [facility] [address] [place] [address] Dr. Danay De Los Santos VIT D RANGES SEE BELOW Normal [facility] Comment on above: Result Comment: <20 ng/mL Vit D deficient 20 - <30 ng/mL Vit D insufficient 30 - 100 ng/mL Vit D sufficient >100 ng/mL Potential Toxicity Performed By: #### T SH, CMP, T7, LIPID #### [facility] [id number] Danay De Los Santos US ROEL [...] MORIAH MORRISON Date: 2022-12-01 12:54 Normal [facility] XR Hand Complete Left*on XR Hand Complete Left* CLINICAL HISTORY: Fall with left hand stiffness. COMPARISON: None. RESULT: No distinct acute fracture. No dislocation. Underlying decreased bone mineral density. Mild to moderate scattered degenerative changes. Soft tissue edema. IMPRESSION: No acute osseous findings radiographically. Report reported and signed by Home Lockwood on 08/24/2022 1108 Normal [facility] [employer] XR Spine Cervical Complete*o n 08-24-2022 XR [...] by Home Lockwood on 08/24/2022 1109 Normal [facility] [employer] XR HAND RIMA MIN 3Von 023 XR HAND RIMA MIN 3V EXAM: XR HAND RIMA NC N 3V HISTORY: Pain following fall COMPARISON: None. TECHNIQUE: 3 views of each hand FINDINGS: No visualized fracture, dislocation, subluxation or osseous lesion. Age-related joint space changes. No gross visualized soft tissue edema. IMPRESSION: No visualized abnormality Electronically authenticated by: BRIANNA KU Date: 2022-08-06 20:28 Normal [facility] XR HIP RT 2 3V W [...] Date: 2022-08-06 20:29 Normal [facility] XR SHOULDER RT 2V or >on XR [...] BRIANNA KU Date: 2022-08-06 20:21 Normal [facility] XR Foot Complete Left*on XR Foot Complete Left* COMPARISON: None available HISTORY: Second and third digit pain after a fall TECHNIQUE: AP, lateral and oblique views of the foot obtained. FINDINGS: No acute fracture or dislocation. Joint spaces are preserved. Soft tissues are within normal limits. IMPRESSION: No acute osseous abnormality. 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 Danay De Los Santos CBC AUTO DIFFon 05-26-2022 BASO # 0.1 103/ul Normal 0.0-0.1 [facility] Comment on above: Performed By: #### C BC #### [facility] [address] [place] [address] Dr. Danay De Los Santos Basophils/100 WBC (Bld) 0.8 % Normal 0.2-2.0 [facility] Comment on above: Performed By: #### C BC #### [facility] [address] [place] [address] Dr. Danay De Los Santos EO # 0.6 103/ul Normal 0.0-0.7 [facility] Comment on above: Performed By: #### C BC #### [facility] [address] [place] [address] Dr. Danay De Los Santos Eosinophils/100 WBC (Bld) 5.1 % Normal 0.9-7.0 [facility] Comment on above: Performed By: #### C BC #### [facility] [address] [place] [address] Dr. Danay De Los Santos Erythrocyte distribution width (RBC) [Ratio] 14.7 % Normal 11.0-15.0 [facility] Comment on above: Performed By: #### C BC #### [facility] [address] [place] [address] Dr. Danay De Los Santos Hematocrit (Bld) [Volume fraction] 37.8 % Normal 36.0-48.0 [facility] Comment on above: Performed By: #### C BC #### [facility] [address] [place] [address] Dr. Danay De Los Santos Hemoglobin (Bld) [Mass/Vol] 12.3 g/dL Normal 12.0-16.0 [facility] Comment on above: Performed By: #### C BC #### [facility] [address] [place] [address] Dr. Danay De Los Santos IG # 0.05 10e3/ul Critically high 0.00-0.03 [facility] Comment on above: Performed By: #### C BC #### [facility] [address] [place] [address] Dr. Danay De Los Santos IG % 0.5 % Normal 0.0-0.5 [facility] Comment on above: Performed By: #### C BC #### [facility] [address] [place] [address] Dr. Danay De Los Santos LYMPH # 2.1 103/ul Normal 1.2-3.8 [facility] Comment on above: Performed By: #### C BC #### [facility] [address] [place] [address] Dr. Danay De Los Santos Lymphocytes/100 WBC (Bld) 19.1 % Critically low 20.5-60.0 [facility] Comment on above: Performed By: #### C BC #### [facility] [address] [place] [address] Dr. Danay De Los Santos MANUAL DIFF REQ NO Normal [facility] Comment on above: Performed By: #### C BC #### [facility] [address] [place] [address] Dr. Danay De Los Santos MCH (RBC) [Entitic mass] 30.8 pg Normal 26.7-34.0 [facility] Comment on above: Performed By: #### C BC #### [facility] [address] [place] [address] Dr. Danay De Los Santos MCHC (RBC) [Mass/Vol] 32.5 g/dL Normal 29.9-35.2 [facility] Comment on above: Performed By: #### C BC #### [facility] [address] [place] [address] Dr. Danay De Los Santos MCV (RBC) [Entitic vol] 94.5 fL Normal 81.0-99.0 [facility] Comment on above: Performed By: #### C BC #### [facility] [address] [place] [address] Dr. Danay De Los Santos MONO # 0.6 103/ul Normal 0.3-0.8 [facility] Comment on above: Performed By: #### C BC #### [facility] [address] [place] [address] Dr. Danay De Los Santos Monocytes/100 WBC (Bld) 5.1 % Normal 1.7-12.0 [facility] Comment on above: Performed By: #### C BC #### [facility] [address] [place] [address] Dr. Danay De Los Santos NEUT # 7.5 103/ul Critically high 1.4-6.5 [facility] Comment on above: Performed By: #### C BC #### [facility] [address] [place] [address] Dr. Danay De Los Santos Neutrophils/100 WBC (Bld) 69.4 % Normal 43.0-75.0 [facility] Comment on above: Performed By: #### C BC #### [facility] [address] [place] [address] Dr. Danay De Los Santos Platelet mean volume (Bld) [Entitic vol] 10.9 fL Normal 9.5-13.5 [facility] Comment on above: Performed By: #### C BC #### [facility] [address] [address] [address] Danay De Los Santos PLT 235 103/ul Normal 150-450 [facility] Comment on above: Performed By: #### C BC #### [facility] [address] [address] [address] Danay De Los Santos RBC 4.00 106/ul Critically low 4.20-5.40 [facility] Comment on above: Performed By: #### C BC #### [facility] [address] [address] [address] Danay De Los Santos WBC 10.8 103/ul Normal 4.0-11.0 [facility] Comment on above: Performed By: #### C BC #### [facility] [address] [place] [address] Dr. Danay De Los Santos FREE THYROXINE INDEX T7on FTI 1.83 Normal 1.30-4.50 [facility] Comment on above: Performed By: #### T SH, CMP, T7, LIPID #### [facility] [address] [place] [address] Dr. Danay De Los Santos T3U 31.0 % Normal 30.0-39.0 [facility] Comment on above: Performed By: #### T SH, CMP, T7, LIPID #### [facility] [address] [place] [address] Dr. Danay De Los Santos T4 [Mass/Vol] 5.90 ug/dL Normal 4.80-13.[address] [facility] Comment on above: Performed By: #### T SH, CMP, T7, LIPID #### [facility] [address] [place] [address] Dr. Danay De Los Santos GLYCOHEMOGLOBIN A1Con 2021 ADA RECOMMENDATION SEE BELOW Normal [facility] Comment on above: Result Comment: ADA RECOMMENDED LIMIT 4.0 - 6.0 ADA THERAPEUTIC TARGET < 7.0 ACTION SUGGESTED > 7.0 Performed By: #### A 1C #### [facility] [address] [address] [address] Danay De Los Santos Glucose [Mass/Vol] 186 mg/dL Normal [facility] Comment on above: Performed By: #### A 1C #### [facility] [address] [address] [address] Danay De Los Santos HbA1c (Bld) [Mass fraction] 8.1 % Critically high 4.5-6.2 [facility] Comment on above: Performed By: #### A 1C #### [facility] [address] [address] [address] Danay De Los Santos IRONon 05-26-2022 Iron [Mass/Vol] 61.0 ug/dL Normal 50.0-170.0 [facility] Comment on above: Performed By: #### T SH, CMP, T7, LIPID #### [facility] [address] [place] [address] Dr. Danay De Los Santos LIPID PROFILEon 05-26-2022 CHOL-HDL RATIO NORM SEE BELOW Normal [facility] Comment on above: Result Comment: 3.3 - 4.4 LOW RISK 4.4 - 7.1 AVERAGE RISK 7.1 - 11.0 MODERATE RISK >11.0 HIGH RISK Performed By: #### T SH, CMP, T7, LIPID #### [facility] [address] [place] [address] Dr. Danay De Los Santos Cholesterol [Mass/Vol] 130 mg/dL Normal <=200 [facility] Comment on above: Performed By: #### T SH, CMP, T7, LIPID #### [facility] [address] [place] [address] Dr. Danay De Los Santos Cholesterol in HDL [Mass/Vol] 40 mg/dL Normal 40-60 [facility] Comment on above: Performed By: #### T SH, CMP, T7, LIPID #### [facility] [address] [place] [address] Dr. Danay De Los Santos Cholesterol in LDL [Mass/Vol] 75.8 mg/dL Normal [facility] Comment on above: Performed By: #### T SH, CMP, T7, LIPID #### [facility] [address] [address] [address] Danay De Los Santos Cholesterol.total/Vivian sterol in HDL [Mass ratio] 3.3 {ratio} Normal [facility] Comment on above: Performed By: #### T SH, CMP, T7, LIPID #### [facility] [address] [address] [address] Danay De Los Santos HDL NORMAL > or = 60 mg/dl - LO W CARDIOVASCULAR RISK <40 mg/dl - HIGH CARDIOVASCULAR RISK Normal [facility] Comment on above: Performed By: #### T SH, CMP, T7, LIPID #### [facility] [address] [address] [address] Danay De Los Santos LDL CALC NORMAL SEE BELOW Normal [facility] Comment on above: Result Comment: <100 mg/dl OPTIMAL 100 - 129 mg/dl NEAR OR ABOVE OPTIMAL 130 - 159 mg/dl BORDERLINE HIGH 160 - 189 mg/dl HIGH >190 mg/dl VERY HIGH Performed By: #### T SH, CMP, T7, LIPID #### [facility] [address] [address] [address] Danay De Los Santos Triglyceride [Mass/Vol] 71 mg/dL Normal <=150 [facility] Comment on above: Performed By: #### T SH, CMP, T7, LIPID #### [facility] [address] [address] [address] Danay De Los Santos VLDL CALC 14.2 mg/dL Normal [facility] Comment on above: Performed By: #### T SH, CMP, T7, LIPID #### [facility] [address] [address] [address] Danay De Los Santos PROF 14(COMP METB)on 022 Albumin [Mass/Vol] 3.4 g/dL Normal 3.4-5.0 [facility] Comment on above: Performed By: #### T SH, CMP, T7, LIPID #### [facility] [address] [address] [address] Danay De Los Santos Albumin/Globulin [Mass ratio] 1.0 {ratio} Normal [facility] Comment on above: Performed By: #### T SH, CMP, T7, LIPID #### [facility] [address] [address] [address] Danay De Los Santos ALP [Catalytic activity/Vol] 92 U/L Normal 46-116 [facility] Comment on above: Performed By: #### T SH, CMP, T7, LIPID #### [facility] [address] [address] [address] Danay De Los Santos ALT [Catalytic activity/Vol] 15 U/L Normal 14-59 [facility] Comment on above: Performed By: #### T SH, CMP, T7, LIPID #### [facility] [address] [address] [address] Danay De Los Santos Anion gap [Moles/Vol] 10.4 mmol/L Normal [facility] Comment on above: Performed By: #### T SH, CMP, T7, LIPID #### [facility] [address] [address] [address] Danay De Los Santos AST [Catalytic activity/Vol] 12 U/L Critically low 15-37 [facility] Comment on above: Performed By: #### T SH, CMP, T7, LIPID #### [facility] [address] [address] [address] Danay De Los Santos Bilirubin [Mass/Vol] 0.4 mg/dL Normal 0.2-1.0 [facility] Comment on above: Performed By: #### T SH, CMP, T7, LIPID #### [facility] [address] [address] [address] Danay De Los Santos Calcium [Mass/Vol] 8.7 mg/dL Normal 8.5-10.1 [facility] Comment on above: Performed By: #### T SH, CMP, T7, LIPID #### [facility] [address] [address] [address] Danay De Los Santos Chloride [Moles/Vol] 107 mmol/L Normal 98-107 [facility] Comment on above: Performed By: #### T SH, CMP, T7, LIPID #### [facility] [address] [address] [address] Danay De Los Santos CO2 [Moles/Vol] 28.9 mmol/L Normal 21.0-32.0 [facility] Comment on above: Performed By: #### T SH, CMP, T7, LIPID #### [facility] [address] [address] [address] Danay De Los Santos Creatinine [Mass/Vol] 1.18 mg/dL Critically high 0.55-1.02 [facility] Comment on above: Performed By: #### T SH, CMP, T7, LIPID #### [facility] [address] [address] [address] Danay De Los Santos EGFR-AF TRISTANIAN 55 mL/min/1.73m2 Critically low >=60 [facility] Comment on above: Performed By: #### T SH, CMP, T7, LIPID #### [facility] [address] [place] [address] Dr. Danay De Los Santos EGFR-NON AF TRISTANIAN 46 mL/min/1.73m2 Critically low >=60 [facility] Comment on above: Performed By: #### T SH, CMP, T7, LIPID #### [facility] [address] [place] [address] Dr. Danay De Los Santos Globulin (S) [Mass/Vol] 3.3 g/dL Normal [facility] Comment on above: Performed By: #### T SH, CMP, T7, LIPID #### [facility] [address] [place] [address] Dr. Danay De Los Santos Glucose [Mass/Vol] 153 mg/dL Critically high 74-106 [facility] Comment on above: Performed By: #### T SH, CMP, T7, LIPID #### [facility] [address] [place] [address] Dr. Danay De Los Santos Potassium [Moles/Vol] 4.3 mmol/L Normal 3.5-5.1 [facility] Comment on above: Performed By: #### T SH, CMP, T7, LIPID #### [facility] [address] [place] [address] Dr. Danay De Los Santos Protein [Mass/Vol] 6.7 g/dL Normal 6.4-8.2 [facility] Comment on above: Performed By: #### T SH, CMP, T7, LIPID #### [facility] [address] [address] [address] Danay De Los Santos Sodium [Moles/Vol] 142 mmol/L Normal 136-145 [facility] Comment on above: Performed By: #### T SH, CMP, T7, LIPID #### [facility] [address] [address] [address] Danay De Los Santos Urea nitrogen [Mass/Vol] 16.0 mg/dL Normal 7.0-18.0 [facility] Comment on above: Performed By: #### T SH, CMP, T7, LIPID #### [facility] [address] [address] [address] Danay De Los Santos Urea nitrogen/Creatinine [Mass ratio] 13.6 mg/mg Normal [facility] Comment on above: Performed By: #### T SH, CMP, T7, LIPID #### [facility] [address] [address] [address] Danay De Los aSntos TSHon 05-26-2022 TSH 1.443 uIU/mL Normal 0.358-3.[address] [facility] Comment on above: Performed By: #### T SH, CMP, T7, LIPID #### [facility] [address] [place] [address] Dr. Danay De Los Santos XR DEXA [...] BECKY AVILEZ Date: 2022-04-05 12:11 Normal [facility] GLYCOHEMOGLOBIN A1Con 2021 ADA RECOMMENDATION SEE BELOW Normal [facility] Comment on above: Result Comment: ADA RECOMMENDED LIMIT 4.0 - 6.0 ADA THERAPEUTIC TARGET < 7.0 ACTION SUGGESTED > 7.0 Performed By: #### T SH, CMP, T7, LIPID #### [facility] [address] [place], [place] [address] Dr. Danay De Los Santos Glucose [Mass/Vol] 174 mg/dL Normal [facility] Comment on above: Performed By: #### T SH, CMP, T7, LIPID #### [facility] [address] [place], [place] [address] Dr. Danay De Los Santos HbA1c (Bld) [Mass fraction] 7.7 % Critically high 4.5-6.2 [facility] Comment on above: Performed By: #### T SH, CMP, T7, LIPID #### [facility] [address] [address] [address] Danay De Los Santos MG MAMM SCREEN 3D RIMA CADon 02-14-2022 MG MAMM SCREEN 3D RIMA CAD Patient: VIRGEN GONZALES Exam Date: 02/14/2022 : 1955 Gender:F Ordering : [facility] Admission #: [id number] Family : Order #: [id number] CLICK HERE TO VIEW EXAM RADIOLOGY REPORT [...] at age 24. LOCATION: [facility] BREAST COMPOSITION: Heterogeneously dense,which may obscure [...] Avilez M.D. on 02/14/2022 at 16:12 Normal [facility] CARDIAC STRESS/REST INJE CTIONon 01-27-2020 [facility] CARDIAC STRESS/REST INJECTION Patient Name: VIRGEN GONZALES STUDY: MYOCARDIAL PERFUSION STRESS TEST WITH LEXISCAN Performing facility: [facility], [address] [place] [address], [address], [address] Provider: Catarino Koroma MD, FACC PCP: Dr. Nicola Granger Supervising provider: Catarino Koroma MD, FACC INDICATION: Abnormal EKG; Pre-operative risk assessment for Knee surgery scheduled at [facility] on unknown. RBBB HISTORY: Gender: F; Age: 64 y/o ; Height: 152.4 cm; Weight: 77.1070985 kg. High Cholesterol; Abnormal EKG; Diabetes; Family HX CAD; HTN; Smoking COMPARISON: No comparison. ACCESSION NUMBER(S): [id number]; [id number]; [id number] ORDERING CLINICIAN: CATARINO KOROMA TECHNIQUE: ONE DAY [...] comparison. Electronically signed by: CATARINO KOROMA MD [facility] Vital Signs Date Time Vital Sign Value Performing Clinician Vyi rama 04-26-2025 15:11-0400 Body height 152.4 cm Aggie Mccormackmer PRINTING TECHNICIAN-C Work Phone: [facility] 04-26-2025 15:11-0400 Body mass index (BMI) [Ratio] 37.5 kg/m2 Aggie Susan PRINTING TECHNICIAN-C Work Phone: [facility] 04-26-2025 15:11-0400 Body weight 87.08 kg Aggie Susan PRINTING TECHNICIAN-C Work Phone: [facility] 04-26-2025 15:11-0400 Diastolic blood pressure 68 mm[Hg] Aggienapoleon Mccormackmer PRINTING TECHNICIAN-C Work Phone: [facility] 04-26-2025 15:11-0400 Heart rate 68 /min Aggie Susan PRINTING TECHNICIAN-C Work Phone: [facility] 04-26-2025 15:11-0400 Respiratory rate 18 /min Aggie Susan PRINTING TECHNICIAN-C Work Phone: [facility] 04-26-2025 15:11-0400 SaO2% (BldA) [Mass fraction] 96 % Aggie Susan PRINTING TECHNICIAN-C Work Phone: [facility] 04-26-2025 15:11-0400 Systolic blood pressure 99 mm[Hg] Aggie Davis PRINTING TECHNICIAN-C Work Phone: [facility] 04-26-2025 13:49-0400 Body height 152.4 cm Mathieu Naqvi MD Work Phone: [facility] 04-26-2025 13:49-0400 Body mass index (BMI) [Ratio] 37.11 kg/m2 Mathieu Naqvi MD Work Phone: [facility] 04-26-2025 13:49-0400 Body weight 86.18 kg Mathieu Naqvi MD Work Phone: [facility] 04-26-2025 13:49-0400 Diastolic blood pressure 70 mm[Hg] Mathieu Naqvi MD Work Phone: [facility] 04-26-2025 13:49-0400 Heart rate 68 /min Mathieu Naqvi MD Work Phone: [facility] 04-26-2025 13:49-0400 Respiratory rate 16 /min Mathieu Naqvi MD Work Phone: [facility] 04-26-2025 13:49-0400 SaO2% (BldA) [Mass fraction] 96 % Mathieu Naqvi MD Work Phone: [facility] 04-26-2025 13:49-0400 Systolic blood pressure 110 mm[Hg] Mathieu Naqvi MD Work Phone: [facility] [facility] 04-07-2025 17:44-0400 Body height 152.4 cm Aggie Davis PRINTING TECHNICIAN-C Work Phone: [facility] 04-07-2025 17:44-0400 Body temperature 98.4 [degF] Aggie Davis PRINTING TECHNICIAN-C Work Phone: [facility] 04-07-2025 17:44-0400 Body weight 88.45 kg Aggie Davis PRINTING TECHNICIAN-C Work Phone: [facility] 04-07-2025 17:44-0400 Diastolic blood pressure 68 mm[Hg] Aggie Susan PRINTING TECHNICIAN-C Work Phone: [facility] 04-07-2025 17:44-0400 Heart rate 106 /min Aggie Susan PRINTING TECHNICIAN-C Work Phone: [facility] 04-07-2025 17:44-0400 Respiratory rate 18 /min Aggie Susan PRINTING TECHNICIAN-C Work Phone: [facility] 04-07-2025 17:44-0400 SaO2% (BldA) [Mass fraction] 97 % Aggie Susan PRINTING TECHNICIAN-C Work Phone: [facility] 04-07-2025 17:44-0400 Systolic blood pressure 125 mm[Hg] Aggie Susan PRINTING TECHNICIAN-C Work Phone: [facility] 01-14-2025 12:13-0400 Body height 152.4 cm Aggie Mccormackmer PRINTING TECHNICIAN-C Work Phone: [facility] 01-14-2025 12:13-0400 Body mass index (BMI) [Ratio] 38.7 kg/m2 Aggie Susan PRINTING TECHNICIAN-C Work Phone: [facility] 01-14-2025 12:13-0400 Body weight 89.81 kg Aggie Mccormackmer PRINTING TECHNICIAN-C Work Phone: [facility] 01-14-2025 12:13-0400 Diastolic blood pressure 82 mm[Hg] Aggie Susan PRINTING TECHNICIAN-C Work Phone: [facility] 01-14-2025 12:13-0400 Heart rate 79 /min Aggie Susan PRINTING TECHNICIAN-C Work Phone: [facility] 01-14-2025 12:13-0400 SaO2% (BldA) [Mass fraction] 94 % Aggie Susan PRINTING TECHNICIAN-C Work Phone: [facility] 01-14-2025 12:13-0400 Systolic blood pressure 142 mm[Hg] Aggie Susan PRINTING TECHNICIAN-C Work Phone: [facility] 01-04-2025 13:41-0400 Body weight 89.81 kg Aggie Davis PRINTING TECHNICIAN-C Work Phone: [facility] 01-04-2025 13:41-0400 Diastolic blood pressure 68 mm[Hg] Aggie Davis PRINTING TECHNICIAN-C Work Phone: [facility] 01-04-2025 13:41-0400 Heart rate 84 /min Aggie Davis PRINTING TECHNICIAN-C Work Phone: [facility] 01-04-2025 13:41-0400 SaO2% (BldA) [Mass fraction] 97 % Aggie Davis PRINTING TECHNICIAN-C Work Phone: [facility] 01-04-2025 13:41-0400 Systolic blood pressure 118 mm[Hg] Aggie Davis PRINTING TECHNICIAN-C Work Phone: [facility] 12-08-2024 09:48-0400 Respiratory rate 20 /min Brice AYLIEN [facility] 12-08-2024 09:47-0400 Diastolic blood pressure 80 mm[Hg] Brice Brown [facility] 12-08-2024 09:47-0400 Heart rate 78 /min Brice Brown [facility] 12-08-2024 09:47-0400 Mean blood pressure 100 mm[Hg] Brice Brown [facility] 12-08-2024 09:47-0400 Systolic blood pressure 140 mm[Hg] Brice Brown [facility] 12-08-2024 09:46-0400 Heart rate 80 /min Brice Brown [facility] 12-08-2024 09:46-0400 SaO2% (BldA) [Mass fraction] 95 % Brice Brown [facility] 12-08-2024 09:46-0400 Diastolic blood pressure 77 mm[Hg] Brice Brown [facility] 12-08-2024 09:46-0400 Mean blood pressure 98 mm[Hg] Brice Estrella [facility] 12-08-2024 09:46-0400 Systolic blood pressure 139 mm[Hg] Brice Estrella [facility] 11-26-2024 13:23-0400 Body height 152.4 cm Brice Estrella DO Work Phone: [facility] 11-26-2024 13:23-0400 Body mass index (BMI) [Ratio] 39.65 kg/m2 Brice Estrella DO Work Phone: [facility] 11-26-2024 13:23-0400 Body weight 92.08 kg Brice Estrella DO Work Phone: [facility] 11-23-2024 11:53-0400 Body height 152.4 cm Aggie Davis PRINTING TECHNICIAN-C Work Phone: [facility] 11-23-2024 11:53-0400 Body temperature 97.8 [degF] Aggie Davis PRINTING TECHNICIAN-C Work Phone: [facility] 11-23-2024 11:53-0400 Diastolic blood pressure 71 mm[Hg] Aggie Mccormackmer PRINTING TECHNICIAN-C Work Phone: [facility] 11-23-2024 11:53-0400 Heart rate 92 /min Aggie Mccormackmer PRINTING TECHNICIAN-C Work Phone: [facility] 11-23-2024 11:53-0400 Respiratory rate 18 /min Aggie Mccormackmer PRINTING TECHNICIAN-C Work Phone: [facility] 11-23-2024 11:53-0400 SaO2% (BldA) [Mass fraction] 96 % Aggie Davis PRINTING TECHNICIAN-C Work Phone: [facility] 11-23-2024 11:53-0400 Systolic blood pressure 105 mm[Hg] Aggie Davis PRINTING TECHNICIAN-C Work Phone: [facility] 11-16-2024 12:12-0400 Body height 152.4 cm Mathieu Naqvi MD Work Phone: [facility] 11-16-2024 12:12-0400 Body mass index (BMI) [Ratio] 39.65 kg/m2 Mathieu Naqvi MD Work Phone: [facility] 11-16-2024 12:12-0400 Body weight 92.08 kg Mathieu Naqvi MD Work Phone: [facility] 11-16-2024 12:12-0400 Diastolic blood pressure 68 mm[Hg] Mathieu Naqvi MD Work Phone: [facility] 11-16-2024 12:12-0400 Heart rate 79 /min Mathieu Naqvi MD Work Phone: [facility] 11-16-2024 12:12-0400 Respiratory rate 18 /min Mathieu Naqvi MD Work Phone: [facility] 11-16-2024 12:12-0400 SaO2% (BldA) [Mass fraction] 94 % Mathieu Naqvi MD Work Phone: [facility] 11-16-2024 12:12-0400 Systolic blood pressure 124 mm[Hg] Mathieu Naqvi MD Work Phone: [facility] 11-09-2024 10:02-0400 Body height 152.4 cm Da Phillip DO Work Phone: [facility] 11-09-2024 10:02-0400 Body mass index (BMI) [Ratio] 40.04 kg/m2 Da Phillip DO Work Phone: [facility] 11-09-2024 10:02-0400 Body weight 92.99 kg Da Bijhonathanenmaicol DO Work Phone: [facility] 11-05-2024 10:41-0400 Body height 152.4 cm Brice Estrella DO Work Phone: [facility] 11-05-2024 10:41-0400 Body mass index (BMI) [Ratio] 40.43 kg/m2 Brice Estrella DO Work Phone: [facility] 11-05-2024 10:41-0400 Body weight 93.89 kg Brice Estrella DO Work Phone: [facility] 09-21-2024 08:22-0500 Body height 152.4 cm Aggienapoleon Mccormackmer PRINTING TECHNICIAN-C Work Phone: [facility] 09-21-2024 08:22-0500 Body mass index (BMI) [Ratio] 40.8 kg/m2 Aggie Susan PRINTING TECHNICIAN-C Work Phone: [facility] 09-21-2024 08:22-0500 Body weight 94.8 kg Aggie Susan PRINTING TECHNICIAN-C Work Phone: [facility] 09-21-2024 08:14-0500 Body temperature 97.5 [degF] Aggie Susan PRINTING TECHNICIAN-C Work Phone: [facility] 09-21-2024 08:14-0500 Diastolic blood pressure 75 mm[Hg] Aggie Susan PRINTING TECHNICIAN-C Work Phone: [facility] 09-21-2024 08:14-0500 Heart rate 86 /min Aggie Susan PRINTING TECHNICIAN-C Work Phone: [facility] 09-21-2024 08:14-0500 Respiratory rate 20 /min Aggie Susan PRINTING TECHNICIAN-C Work Phone: [facility] 09-21-2024 08:14-0500 Systolic blood pressure 121 mm[Hg] Aggie Susan PRINTING TECHNICIAN-C Work Phone: [facility] 09-07-2024 09:09-0500 Blood Pressure Location Kang BOSS [facility] 09-07-2024 09:09-0500 Diastolic blood pressure 74 mm[Hg] Kang BOSS [facility] 09-07-2024 09:09-0500 Heart rate 70 /min Kang BOSS [facility] 09-07-2024 09:09-0500 Respiratory rate 18 /min Kang BOSS [facility] 09-07-2024 09:09-0500 Systolic blood pressure 112 mm[Hg] Kang BOSS [facility] 08-31-2024 13:49-0500 Body height 152.4 cm Aggie Davis PRINTING TECHNICIAN-C Work Phone: [facility] 08-31-2024 13:49-0500 Body mass index (BMI) [Ratio] 39.9 kg/m2 Aggie Davis PRINTING TECHNICIAN-C Work Phone: [facility] 08-31-2024 13:49-0500 Body temperature 97.8 [degF] Aggie Davis PRINTING TECHNICIAN-C Work Phone: [facility] 08-31-2024 13:49-0500 Body weight 92.75 kg Aggie Davis PRINTING TECHNICIAN-C Work Phone: [facility] 08-31-2024 13:49-0500 Diastolic blood pressure 71 mm[Hg] Aggie Davis PRINTING TECHNICIAN-C Work Phone: [facility] 08-31-2024 13:49-0500 Heart rate 68 /min Aggie Davis PRINTING TECHNICIAN-C Work Phone: [facility] 08-31-2024 13:49-0500 Respiratory rate 18 /min Aggie Mccormackmer PRINTING TECHNICIAN-C Work Phone: [facility] 08-31-2024 13:49-0500 SaO2% (BldA) [Mass fraction] 98 % Aggie Davis PRINTING TECHNICIAN-C Work Phone: [facility] 08-31-2024 13:49-0500 Systolic blood pressure 106 mm[Hg] Aggie Davis PRINTING TECHNICIAN-C Work Phone: [facility] 08-31-2024 10:24-0500 Body height 152.4 cm [...] [facility] 08-20-2024 09:05-0500 Body weight 93.89 kg Louisjessica De La Rosa DO Work Phone: [facility] 08-20-2024 09:05-0500 Diastolic blood pressure 80 mm[Hg] Liborioer Estrella DO Work Phone: [facility] 08-20-2024 09:05-0500 Heart rate 80 /min Christopher Estrella DO Work Phone: [facility] 08-20-2024 09:05-0500 SaO2% (BldA) [Mass fraction] 95 % Christgrupoer Estrella DO Work Phone: [facility] 08-20-2024 09:05-0500 Systolic blood pressure 144 mm[Hg] Liborioer Estrella DO Work Phone: [facility] 08-19-2024 10:18-0500 Body height 152.4 cm Aggie Davis PRINTING TECHNICIAN-C Work Phone: [facility] 08-19-2024 10:18-0500 Body mass index (BMI) [Ratio] 40.8 kg/m2 Aggie Davis PRINTING TECHNICIAN-C Work Phone: [facility] 08-19-2024 10:18-0500 Body weight 94.8 kg Aggie Davis PRINTING TECHNICIAN-C Work Phone: [facility] 08-19-2024 09:13-0500 Body temperature 98.2 [degF] Aggie Susan PRINTING TECHNICIAN-C Work Phone: [facility] 08-19-2024 09:13-0500 Diastolic blood pressure 44 mm[Hg] Aggie Susan PRINTING TECHNICIAN-C Work Phone: [facility] 08-19-2024 09:13-0500 Heart rate 87 /min Aggie Susan PRINTING TECHNICIAN-C Work Phone: [facility] 08-19-2024 09:13-0500 Respiratory rate 20 /min Aggie Susan PRINTING TECHNICIAN-C Work Phone: [facility] 08-19-2024 09:13-0500 Systolic blood pressure 100 mm[Hg] Aggie Susan PRINTING TECHNICIAN-C Work Phone: [facility] 08-18-2024 10:31-0500 Body height 152.4 cm Mathieu Naqvi MD Work Phone: [facility] 08-18-2024 10:31-0500 Body mass index (BMI) [Ratio] 40.82 kg/m2 Mathieu Naqvi MD Work Phone: [facility] 08-18-2024 10:31-0500 Body weight 94.8 kg Mathieu Naqvi MD Work Phone: [facility] 07-07-2024 21:52-0500 Body temperature 97.88 [degF] Kaylinn Dokken [facility] 07-07-2024 21:52-0500 Diastolic blood pressure 76 mm[Hg] Kaylinn Dokken [facility] 07-07-2024 21:52-0500 Heart rate 72 /min Kaylinn Dokken [facility] 07-07-2024 21:52-0500 Mean blood pressure 86 mm[Hg] Kaylinn Dokken [facility] 07-07-2024 21:52-0500 Respiratory rate 19 /min Kaylinn Dokken [facility] 07-07-2024 21:52-0500 SaO2% (BldA) [Mass fraction] 95 % Kaylinn Dokken [facility] 07-07-2024 21:52-0500 Systolic blood pressure 105 mm[Hg] Kaylinn Dokken [facility] 07-07-2024 20:57-0500 Diastolic blood pressure 77 mm[Hg] Kaylinn Dokken [facility] 07-07-2024 20:57-0500 Heart rate 61 /min Kaylinn D[facility] 07-07-2024 20:57-0500 Mean blood pressure 102 mm[Hg] Kaylinn Dokken [facility] 07-07-2024 20:57-0500 Respiratory rate 18 /min Kaylinn D[facility] 07-07-2024 20:57-0500 SaO2% (BldA) [Mass fraction] 96 % Kaylinn Dokken [facility] 07-07-2024 20:57-0500 Systolic blood pressure 153 mm[Hg] Kaylinn Dokken [facility] 07-07-2024 19:33-0500 Diastolic blood pressure 89 mm[Hg] Kaylinn D[facility]ken [facility] 07-07-2024 19:33-0500 Heart rate 60 /min [facility]linn [facility] 07-07-2024 19:33-0500 Mean blood pressure 108 mm[Hg] Kaylinn Dokken [facility] 07-07-2024 19:33-0500 Respiratory rate 19 /min [facility]linn [facility] 07-07-2024 19:33-0500 SaO2% (BldA) [Mass fraction] 95 % Kaylinn Dokken [facility] 07-07-2024 19:33-0500 Systolic blood pressure 146 mm[Hg] Kaylinn Dokken [facility] 07-07-2024 19:20-0500 Body temperature 98.06 [degF] Kaylinn Dokken [facility] 07-07-2024 18:33-0500 Body temperature 98.24 [degF] Kaylinn D[facility]ken [facility] 07-07-2024 18:33-0500 Heart rate 73 /min [facility]linn [facility] 07-07-2024 18:33-0500 Respiratory rate 18 /min [facility]inn [facility] 07-07-2024 18:19-0500 gluc 142 mg/dL Kaylinn Dokken [facility] 07-07-2024 18:18-0500 Heart rate 73 /min [facility]linn [facility] 07-07-2024 18:18-0500 Respiratory rate 18 /min [facility]linn [facility] 05-18-2024 10:53-0400 Body height 152.4 cm Da Webbmaicol Work Phone: [facility] 05-18-2024 [...] 97.39 [degF] Brice Estrella DO Work Phone: [facility] 08-27-2023 15:38-0500 Body weight 88.91 kg Brice Estrella DO Work Phone: [facility] 06-07-2023 08:27-0500 Heart rate 77 /min Brice Estrella [facility] 06-07-2023 08:27-0500 SaO2% (BldA) [Mass fraction] 98 % Brice Estrella [facility] 06-07-2023 08:26-0500 Respiratory rate 20 /min Brice Estrella [facility] 06-07-2023 08:26-0500 Blood Pressure Location Brice Estrella [facility] 06-07-2023 08:26-0500 Diastolic blood pressure 64 mm[Hg] Brice Estrella [facility] 06-07-2023 08:26-0500 Mean blood pressure 77 mm[Hg] Brice Estrella [facility] 06-07-2023 08:26-0500 Systolic blood pressure 102 mm[Hg] Brice Estrella [facility] 06-07-2023 08:25-0500 Body temperature 97.88 [degF] Brice Estrella [facility] 06-07-2023 08:05-0500 Blood Pressure Location Brice Estrella [facility] 06-07-2023 08:05-0500 Diastolic blood pressure 59 mm[Hg] Brice Estrella [facility] 06-07-2023 08:05-0500 Heart rate 73 /min Brice Estrella [facility] 06-07-2023 08:05-0500 Respiratory rate 20 /min Brice Estrella [facility] 06-07-2023 08:05-0500 SaO2% (BldA) [Mass fraction] 95 % Brice Estrella [facility] 06-07-2023 08:05-0500 Systolic blood pressure 114 mm[Hg] Brice Estrella [facility] 06-07-2023 07:30-0500 Blood Pressure Location Brice Estrella [facility] 06-07-2023 07:30-0500 Diastolic blood pressure 70 mm[Hg] Brice Estrella [facility] 06-07-2023 07:30-0500 Heart rate 70 /min Brice Estrella [facility] 06-07-2023 07:30-0500 Respiratory rate 20 /min Brice Estrella [facility] 06-07-2023 07:30-0500 SaO2% (BldA) [Mass fraction] 96 % Brice Estrella [facility] 06-07-2023 07:30-0500 Systolic blood pressure 114 mm[Hg] Brice Estrella [facility] 06-07-2023 06:52-0500 Mean blood pressure 76 mm[Hg] Bricehorace Estrella [facility] 06-07-2023 06:49-0500 Body temperature 97.88 [degF] Brice Estrella [facility] 06-07-2023 06:49-0500 Mean blood pressure 79 mm[Hg] Bricehorace Estrella [facility] Encounters Encounter Date Encounter Type Care Provider Facility Start: 04-26-2025 End: 04-26-2025 ambulatory Aggie Davis PRINTING TECHNICIAN-C Work Phone: [facility] Work Phone: Start: 04-26-2025 End: 04-26-2025 Patient encounter procedure Kala Gregg CHECK PROCESSING CLERK-GLYCERINE PLANT OPERATOR-C -[facility] Work Phone: Start: 04-26-2025 End: 04-26-2025 Bamboo flowsheet Mathieu Naqvi MD Work Phone: [facility] Start: 04-26-2025 End: 04-26-2025 Dianelys flowsclare Naqvi MD Work Phone: [facility] Start: 04-26-2025 End: 04-26-2025 ambulatory MATHIEU NAQVI Not Available Start: 04-26-2025 End: 04-26-2025 Office outpatient visit 25 minutes [facility] Comment on above: Type 2 diabetes tad itus with hyperglycemia, with long-term current use of insulin (HCC) (Primary Dx); Encounter for dietary consultation; Vitamin D deficiency; Primary hypertension ; Hyperlipemia, mixed Start: 04-15-2025 End: 04-15-2025 ambulatory Ashley Ospina Facility:[facility] Start: 04-07-2025 End: 04-07-2025 Emergency department patient visit Aggie Davis NP-C Work Phone: Emergency Room Work Phone: Start: 03-22-2025 End: 03-22-2025 ambulatory Ashley Ospina Facility:[facility] Start: 03-08-2025 End: 03-08-2025 ambulatory Kang BOSS Facility:[facility] Start: 03-08-2025 End: 03-08-2025 Patient encounter procedure Kang BOSS [facility] Start: 01-28-2025 End: 01-28-2025 ambulatory EHAB [facility] Start: 01-14-2025 End: 01-14-2025 Patient encounter procedure Payton Goodwin DO -[facility] Work Phone: Start: 01-04-2025 End: 01-04-2025 ambulatory Aggie Davis PRINTING TECHNICIAN-C Work Phone: [facility] Work Phone: Start: 01-04-2025 End: 01-04-2025 Patient encounter procedure Aggie Davis PRINTING TECHNICIAN-C Work Phone: [facility] Work Phone: Start: 12-25-2024 End: 12-25-2024 Clinisync Result Encounter Brice Estrella DO Work Phone: [facility] Unsolicited Start: 12-25-2024 End: 12-25-2024 Clinisync Result Encounter Brice Estrella DO Work Phone: [facility] Unsolicited Start: 12-25-2024 End: 12-25-2024 Admission to same day surgery center Brice Estrella [facility] Start: 12-25-2024 End: 12-25-2024 ambulatory Brice Estrella Facility:[facility] Start: 12-22-2024 End: 12-22-2024 ambulatory Aggie Davis PRINTING TECHNICIAN-C Work Phone: [facility] Work Phone: Start: 12-22-2024 End: 12-22-2024 Departed Referred Aggie Davis PRINTING TECHNICIAN-C Work Phone: [facility] Start: 12-08-2024 End: 12-08-2024 ambulatory Brice Estrella Facility:[facility] Start: 12-08-2024 End: 12-08-2024 Patient encounter procedure Brice Estrella [facility] Start: 11-26-2024 End: 11-26-2024 Bamboo flowsheet Brice Estrella DO Work Phone: [facility] Start: 11-26-2024 End: 11-26-2024 Bamboo flowsheet Brice Bah Delores DO Work Phone: [facility] Start: 11-26-2024 End: 11-26-2024 ambulatory BRICE A DELORES Not Available Start: 11-26-2024 End: 11-26-2024 Patient encounter procedure Brice Bah Delores DO Work Phone: [facility] Comment on above: Triceps tendonitis ( Primary Dx) Start: 11-23-2024 End: 11-23-2024 ambulatory Aggie Davis PRINTING TECHNICIAN-C Work Phone: [facility] Work Phone: Start: 11-23-2024 End: 11-23-2024 Patient encounter procedure Aggie Davis PRINTING TECHNICIAN-C [facility] Work Phone: Start: 11-16-2024 End: 11-16-2024 Bamboo flowsheet Mathieu Naqvi MD Work Phone: [facility] Start: 11-16-2024 End: 11-16-2024 Bamboo flowsheet Mathieu Naqvi MD Work Phone: [facility] Start: 11-16-2024 End: 11-16-2024 ambulatory MATHIEU NAQVI Not Available Start: 11-16-2024 End: 11-16-2024 Office outpatient visit 25 minutes Mathieu Naqvi MD Work Phone: [facility] Comment on above: Type 2 [...] Start: 11-14-2024 End: 11-14-2024 ambulatory Aggie Davis PRINTING TECHNICIAN-C Work Phone: [facility] Work Phone: Start: 11-14-2024 End: 11-14-2024 Departed Referred Aggie Davis PRINTING TECHNICIAN-C Work Phone: [facility] Start: 11-09-2024 [...] right elbow Start: 10-30-2024 End: 10-30-2024 ambulatory Aggienapoleon Hall Susan PRINTING TECHNICIAN-C Work Phone: [facility] Work Phone: Start: 10-30-2024 End: 10-30-2024 Departed Referred Aggie Susan PRINTING TECHNICIAN-C Work Phone: [facility] Start: 10-13-2024 End: 10-13-2024 Patient encounter procedure Aggie Susan PRINTING TECHNICIAN-C Work Phone: [facility]-Lab Main [place] Work Phone: Start: 10-13-2024 End: 10-13-2024 ambulatory Aggie Isabel Susan PRINTING TECHNICIAN-C Work Phone: [facility] Work Phone: Start: 09-21-2024 End: 09-21-2024 ambulatory Aggie Hall Susan PRINTING TECHNICIAN-C Work Phone: [facility] Work Phone: Start: 09-21-2024 End: 09-21-2024 Discharged Recurring Aggie Susan PRINTING TECHNICIAN-C Work Phone: [facility] [place] Work Phone: Start: 09-14-2024 End: 09-14-2024 ambulatory Aggie Hall Susan PRINTING TECHNICIAN-C Work Phone: [facility] Work Phone: Start: 09-14-2024 End: 09-14-2024 Patient encounter procedure Aggie Mccormackmer PRINTING TECHNICIAN-C Work Phone: [facility] [address] Work Phone: Start: 09-07-2024 End: 09-07-2024 ambulatory Kang OBSS Facility:[facility] Start: 09-07-2024 End: 09-07-2024 Patient encounter procedure Kang BOSS [facility] Start: 09-03-2024 End: 09-03-2024 Bamboo flowsheet Liboriobakari Estrella DO Work Phone: [facility] Start: 09-03-2024 End: 09-03-2024 Bamboo flowsheet Olman Byrdett DO Work Phone: [facility] Start: 09-03-2024 End: 09-03-2024 Patient encounter procedure [...] Start: 08-31-2024 End: 08-31-2024 ambulatory Aggie Davis PRINTING TECHNICIAN-C Work Phone: [facility] Work Phone: Start: 08-31-2024 End: 08-31-2024 Patient encounter procedure Aggie Davis PRINTING TECHNICIAN-C Work Phone: [facility] Work Phone: Start: 08-31-2024 End: 08-31-2024 Patient encounter procedure Brice Estrella DO Work Phone: [facility] Comment on above: Lateral epicondyliti s of right elbow (Primary Dx); Right elbow pain; Triceps tendonitis Start: 08-31-2024 End: 08-31-2024 ambulatory BRICE ESTRELLA Not Available Start: 08-24-2024 End: 08-24-2024 ambulatory OLMAN DE LA ROSA Not Available Start: 08-20-2024 End: 08-20-2024 ambulatory EHAB ELTAHAWY [facility] Start: 08-20-2024 End: 08-20-2024 Bamboo flowsheet Christjessica Byrdett DO Work Phone: [facility] Start: [...] numbness Start: 08-19-2024 Registered Recurring Aggie brandon PRINTING TECHNICIAN-C Work Phone: [facility] [place] Work Phone: Start: 08-18-2024 End: 08-18-2024 Bamboo flowsheet Mathieu Naqvi MD Work Phone: [facility] Start: 08-18-2024 End: 08-18-2024 Bamboo flowsheet Mathieu Naqvi MD Work Phone: [facility] Start: 08-18-2024 End: 08-18-2024 Office outpatient new 45 minutes Mathieu Naqvi MD Work Phone: [facility] Comment on above: Type 2 [...] Start: 07-22-2024 Non-patient / Non-visit Aggie Davis PRINTING TECHNICIAN-C Work Phone: [facility] Work Phone: Start: 07-07-2024 End: 07-07-2024 Emergency department patient visit Tiny Bah Leeanne [facility] Start: 05-18-2024 End: 05-18-2024 ambulatory DA [...] Phone: [facility] Start: 04-13-2024 End: 04-13-2024 ambulatory PRINTING TECHNICIAN-C Aggie Davis Work Phone: [facility] Work Phone: Start: 04-13-2024 End: 04-13-2024 Departed Referred PRINTING TECHNICIAN-C Aggie Davis Work Phone: [facility]Lab Main [place] Work Phone: Start: 04-13-2024 End: 04-13-2024 Office [...] (Primary Dx); Nontoxic multinodular goiter (CMS/HCC) Start: 03-26-2024 End: 03-26-2024 Bamboo flowsheet Da Phillip DO Work Phone: [facility] Start: 03-26-2024 End: 03-26-2024 Bamboo flowsheet Da Phillip DO Work Phone: [facility] Start: 03-26-2024 End: 03-26-2024 ambulatory PRINTING TECHNICIAN-C Aggie Davis Work Phone: [facility] Work Phone: Start: 03-26-2024 End: 03-26-2024 Patient encounter procedure PRINTING TECHNICIAN-Hilda Davis Work Phone: [facility] Main [place] Work Phone: Start: 03-26-2024 End: 03-26-2024 Office outpatient new 45 minutes Da Phillip DO Work Phone: [facility] Comment on above: Thyroid nodule (CMS/ HCC) (Primary Dx); Nontoxic multinodular goiter (CMS/HCC); Thyroid dysfunction (CMS/HCC) Start: 02-14-2024 End: 02-14-2024 ambulatory PRINTING TECHNICIAN-C Aggie Isabel Davis Work Phone: [facility] Work Phone: Start: 02-14-2024 End: 02-14-2024 Departed Referred PRINTING TECHNICIAN-C Aggie Susan Work Phone: [facility] Path Spec [facility] Start: 01-25-2024 Non-patient / Non-visit PRINTING TECHNICIAN-C Keke Davis Work Phone: [facility] Work Phone: Start: 11-11-2023 End: 02-26-2024 ambulatory Brice Estrella Facility:[facility] Start: 2023 Chart abstracting Brice brantley DO Work Phone: [facility] Start: 08-27-2023 End: 08-27-2023 Patient encounter procedure Brice Estrella DO Work Phone: [facility] Comment on above: Left knee pain, unsp ecified chronicity (Primary Dx) Start: 08-22-2023 End: 08-22-2023 ambulatory PRINTING TECHNICIAN-C Aggie Isabel Susan Work Phone: [facility] Work Phone: Start: 08-22-2023 End: 08-22-2023 Discharged Recurring PRINTING TECHNICIAN-C Aggie Susan Work Phone: [facility]-Quantitative Consultant [address] Start: 06-07-2023 End: 06-07-2023 Admission to same day surgery center Brice Estrella [facility] Start: 12-26-2022 ambulatory AGGIE DAVIS Facility: H1 [...] 11-09-2021 Patient encounter procedure Michele Jane [facility] Procedures Date Procedure Procedure Detail Performing Clinician Start: 04-26-2025 Gluc bld gluc mntr d ev cleared fda spec home use Mathieu Naqvi MD Work Phone: Start: 12-25-2024 [facility] CAPILLARY GLUCOSE POC Brice Estrella DO Work Phone: Start: 12-25-2024 [facility] HGBA1C Brice michaels DO Work Phone: Start: 12-22-2024 Urine culture Aggie Cr amer PRINTING TECHNICIAN-C Work Phone: Start: 11-16-2024 Gluc bld gluc mntr d ev cleared fda spec home use Mathieu Naqvi MD Work Phone: Start: 11-14-2024 Urine culture Aggie Cr amer PRINTING TECHNICIAN-C Work Phone: Start: 10-30-2024 Urine culture Aggie brandon PRINTING TECHNICIAN-C Work Phone: Start: 10-13-2024 Urine culture Aggie brandon PRINTING TECHNICIAN-C Work Phone: Start: 09-14-2024 Plain X-ray of right tibia and right fibula Aggie Davis PRINTING TECHNICIAN-C Work Phone: Start: 09-14-2024 MRI of head Aggie guzmán PRINTING TECHNICIAN-C Work Phone: Start: 09-03-2024 End: 09-03-2024 Needle [...] perez Release of trigger finger Emilee reynaldo Jane right carpel tunnel Michele dill right knee arthroscopy x2 Emilee Jane Plan of Treatment Date Care Activity Detail Author Start: 10-18-2025 End: 10-18-2025 Patient encounter procedure 10/18/2025 1:50 PM EDT Office Visit [facility] [address] [place] [phone] Mathieu Naqvi MD [address] [place] [address] [facility] Start: 06-01-2025 Pneumococcal Vaccine: 65+ Years (3 - PPSV23 or PCV20) Pneumococcal Vaccine: 65+ Years (3 - PPSV23 or PCV20) [facility] Start: 06-01-2025 Pneumococcal Vaccine: 65+ Years (3 of 3 - PCV20 or PCV21) Pneumococcal Vaccine: 65+ Years (3 of 3 - PCV20 or PCV21) [facility] Start: 06-01-2025 Pneumococcal Vaccine: 65+ Years (3 of 3 - PPSV23 or PCV20) Pneumococcal Vaccine: 65+ Years (3 of 3 - PPSV23 or PCV20) [facility] Start: 05-31-2025 ambulatory Ambulatory Facility:[facility] Start: 05-17-2025 End: 05-17-2025 Patient encounter procedure [facility] Start: 03-29-2025 Influenza vaccination [facility] Start: 03-15-2025 End: 03-15-2025 Patient encounter procedure 03/15/2025 11:20 AM EDT Office Visit [facility] [address] [place] [address] Mathieu Naqvi MD [address] [place] [address] [facility] Start: 01-14-2025 End: 01-14-2025 Patient encounter procedure 01/14/2025 12:00 PM EDT Office Visit [facility] [address] [place] [address] [place] [phone] Payton Goodwin, DO [address] [place] [address] [facility] Start: 01-05-2025 End: 01-05-2025 Patient encounter procedure 01/05/2025 9:15 AM EDT Office Visit [facility] [address] [place] [address] Brice Estrella DO [address] [facility] [place] [address] [facility] Start: 01-04-2025 End: 01-04-2025 Patient encounter procedure 01/04/2025 1:15 PM EDT Office Visit [facility] [place] [address] [facility] [address] [place] [phone] Olman De La Rosa, [address] [place] [address] [facility] Start: 12-22-2024 Bacteria identified in Urine by Culture Urine Culture [facility] Start: 12-22-2024 Urine culture [facility] Start: 11-26-2024 End: 11-26-2024 Patient encounter procedure 11/26/2024 1:15 PM EDT Office Visit [facility] [address] [place] [phone] Brice Estrella DO [address] [facility] [place] [address] [facility] Start: 11-16-2024 End: 11-16-2024 Patient encounter procedure 11/16/2024 10:50 AM EDT Office Visit [facility] [address] [place] [phone] Mathieu Naqvi MD [address], [address] [place] [phone] [facility] Start: 11-14-2024 Bacteria identified in Urine by Culture Urine Culture [facility] Start: 11-14-2024 Urine culture [facility] Start: 11-09-2024 End: 11-09-2024 Professional / ancillary services management 11/09/2024 1:45 PM EDT Ancillary Procedure [facility] [address] [place] [phone] [facility] Start: 11-09-2024 End: 11-09-2024 Patient encounter procedure 11/09/2024 10:00 AM EDT Office Visit [facility] [place] [address] [place] [phone] Da Phillip, DO [address] [place] [address] [facility] [place] Start: 11-02-2024 End: 11-02-2024 Patient encounter procedure 11/02/2024 10:30 AM EDT Office Visit [facility] [address] [place] [phone] Brice Estrella, DO [address] [place] [address] [facility] Start: 10-30-2024 Urine culture [facility] Start: 10-30-2024 Bacteria identified in Urine by Culture Urine Culture [facility] Start: 10-13-2024 Bacteria identified in Urine by Culture Urine Culture [facility] Start: 10-13-2024 Urine culture [facility] Start: 10-13-2024 Insulin C-peptide measurement [facility] Start: 09-28-2024 End: 09-28-2024 Patient encounter procedure 09/28/2024 1:15 PM EST Office Visit [facility] [address] [place] [phone] Olman De La Rosa, DO [address] [facility] [place] [address] [facility] Start: 09-10-2024 End: 09-10-2024 ambulatory 09/10/2024 1:00 PM EST Evaluation [facility] [address] [place] [phone] Sofya Brasher, OT [address] [place] [address] [facility] Start: 09-03-2024 End: 09-03-2024 Patient encounter procedure [facility] Comment on above: Arrived Start: 09-03-2024 End: 09-03-2024 ambulatory 09/03/2024 12:30 PM EST Evaluation [facility] [address] [place] [phone] Sofya Brasher, OT [address] [place] [address] [facility] Start: 08-31-2024 End: 08-31-2024 Patient encounter procedure [facility] Comment on above: Arrived Start: 08-24-2024 End: 08-24-2024 Clinical Support 08/24/2024 10:45 AM EST Clinical Support [facility] [address] [facility] [place] [address] [facility] Start: 08-20-2024 End: 08-20-2025 Creatinine [...] Routine Loss of consciousness ([facility]) Expected: 08/20/2024, Expires: 08/20/2025 [facility] Comment on above: Expected: 08/20/2024, Expires: Start: 08-20-2024 End: 08-20-2024 Patient encounter procedure 08/20/2024 9:00 AM EST Office Visit [facility] [address] [place] [phone] Olman De La Rosa DO [address] [place] [address] [facility] [place] Start: 08-18-2024 End: 08-18-2025 [...] current use of insulin ([facility]/HCC) Expected: 08/18/2024 (Approximate), Expires: 08/18/2025 [facility] Comment on above: Expected: 08/18/2024 (Approximate), Expi res: 08/18/2025 Start: 08-18-2024 End: 08-18-2025 Microalbumin/Creatinine panel in random Urine Microalbumin / creatinine urine ratio Lab Routine Type 2 diabetes mellitus with hyperglycemia, with long-term current use of insulin (CMS/[facility]) Expected: 08/18/2024 (Approximate), Expires: 08/18/2025 [facility] Comment on above: Expected: 08/18/2024 (Approximate), Expi res: 08/18/2025 Start: 08-18-2024 End: 08-18-2025 Renal function panel Renal function panel Lab Routine Type 2 diabetes mellitus with hyperglycemia, with long-term current use of insulin ([facility]) Expected: 08/18/2024 (Approximate), Expires: 08/18/2025 [facility] Comment on above: Expected: 08/18/2024 (Approximate), Expi res: 08/18/2025 Start: 08-18-2024 End: 08-18-2024 Patient encounter procedure 08/18/2024 10:30 AM EST Office Visit [facility] [address] [place] [phone] Mathieu Naqvi MD [address] [place] [address] Arrived [facility] Comment on above: Arrived Start: 07-27-2024 End: 07-27-2024 Patient encounter procedure 07/27/2024 1:00 PM EST Office Visit [facility] AUD [address] [facility] [place] [phone] Chana Iglesias, AUD [address] [place] [address] [facility] Start: 05-04-2024 End: 05-04-2024 Patient encounter procedure 05/04/2024 10:15 AM EDT Office Visit [facility] [place] [address] [place] [address] Da Phillip, DO [address] [place] [address] Arrived [facility] Comment on above: Arrived Start: 04-13-2024 End: 04-13-2024 Patient encounter procedure 04/13/2024 11:00 AM EDT Office Visit [facility] [address] [place] [address] Da Phillip, [address] [place] [address] [facility] Start: 04-10-2024 End: 04-10-2024 Patient encounter procedure [facility] Comment on above: Arrived Start: 03-29-2024 Influenza vaccination Influenza Vaccine (#1) [facility] Start: 03-26-2024 End: 03-26-2025 Thyrotropin [Units/volume] [...] procedure 03/26/2024 11:00 AM EDT Office Visit [facility] [place] [address] [place] [phone] Da Phillip, DO [address] [place] [address] Arrived [facility] [place] Comment on above: Arrived Start: 10-08-2023 End: 10-08-2023 Patient encounter procedure 10/08/2023 10:00 AM EDT Office Visit [facility] [address] [place] [phone] Brice Estrella DO [address] [place] [address] [facility] Start: 07-29-2023 Pneumococcal Vaccine: 65+ Years (3 of 3 - PPSV23 or PCV20) Pneumococcal Vaccine: 65+ Years (3 of 3 - PPSV23 or PCV20) [facility] Start: 1994 Screening for malignant neoplasm of breast Mammogram [facility] Start: 1973 Urine screening for protein Diabetes: Urine Protein Screening [facility] Start: 1964 Glaucoma screening Diabetes: Retinopathy Screening [facility] Start: 1954 Hemoglobin A1c measurement Diabetes: Hemoglobin A1C [facility] Start: 1954 Medicare Annual Wellness (AWV) Medicare Annual Wellness (AWV) [facility] Start: 1954 Screening for malignant neoplasm of colon [facility] Comprehensive metabo lic 1999 panel - Serum or Plasma [facility] Patient Education Taking care of cuts, scrapes, and puncture wounds [facility] Work Phone: Patient referral [facility] Work Phone: Renal function 2000 panel - Serum or Plasma [facility] Renal function 1999 panel - Serum or Plasma [facility] Immunizations Immunization Date Immunization Notes Care Provider Fa cility 09-10-2025 tetanus toxoid, redu soledad diphtheria toxoid, and acellular pertussis vaccine, adsorbed Aggie Davis PRINTING TECHNICIAN-C Work Phone: [facility] 06-11-2024 zoster vaccine recombinant Kang BOSS [facility] 01-11-2024 zoster vaccine recombinant Kang BOSS [facility] 12-27-2023 zoster vaccine recombinant Da Saeededenmaicol DO Work Phone: [facility] 06-30-2023 Influenza, High-dose Seasonal, Quadrivalent, Preservative Free Da Christopheedenmaicol DO Work Phone: [facility] 06-30-2023 influenza virus vaccine, unspecified formulation Da Phillip DO Work Phone: [facility] 10-30-2022 influenza virus vaccine, unspecified formulation Kang BOSS [facility] 10-30-2022 Influenza, High-dose Seasonal, Quadrivalent, Preservative Free Da Saeededlexii DO Work Phone: [facility] 05-31-2022 influenza virus vaccine, unspecified formulation Kang BOSS [facility] 05-31-2022 Influenza, Seasonal, Quadrivalent, Adjuvanted Da Biedenmaicol DO Work Phone: [facility] 12-19-2020 SARS-CoV-2 (COVID-19 ) mRNA-1273 vaccine Kang BOSS [facility] 11-22-2020 SARS-CoV-2 (COVID-19 ) mRNA-1273 vaccine Kang BOSS [facility] 11-14-2020 SARS-CoV-2 (COVID-19 ) mRNA-[address] [facility] 06-01-2020 influenza virus vaccine, unspecified formulation Kang BOSS [facility] 06-01-2020 pneumococcal conjuga te vaccine, 13 valent aD Traceymaicol DO Work Phone: [facility] 06-01-2020 Seasonal trivalent influenza vaccine, adjuvanted, preservative free Da Christophejhonathanlexii DO Work Phone: [facility] 04-28-2019 influenza virus vaccine, unspecified formulation Kang BOSS [facility] 04-28-2019 influenza, seasonal, injectable Da Phillip DO Work Phone: [facility] 07-29-2018 pneumococcal polysaccharide vaccine, 23 valent Da Traceymaicol DO Work Phone: [facility] 04-18-2018 tetanus toxoid, redu soledad diphtheria toxoid, and acellular pertussis vaccine, adsorbed PRINTING TECHNICIAN-C Aggie Susan Work Phone: [facility] Payers Date Payer Category Payer Private Health Insurance [id number] 2024 Self-pay [id number] 2022 Unknown LAMIN Nunes O [id number] 2022-Present [address] [place] [address] [id number]. [id number] 2022 Worker's Compensation LAMIN Harper ember [id number]. 2.7.9.684202.337423.315 2022 Medicare [id number]. 1.13.693. 2.7.3.246303.315 2022 Medicare (Managed Care) [employer] ADVANTAGE 1.2.840.524505.1.13.693. [id number] 1959 Medicare [id number] 1959 Unknown [id number] 1954 Unknown [id number] 2.16.840.1.146846.3.579. 2.593 1954 Unknown [id number] 2.16.840.1.765347.3.579. 2.593 1954 Unknown [id number] 2.16.840.1.271965.3.579. 2.593 1954 Unknown [id number] 2.16.840.1.454938.3.579. 2.593 1954 Unknown [id number] 2.16.840.1.259828.3.579. 2.593 1954 Unknown [id number] 2.16.840.1.598649.3.579. 2.593 1954 Unknown [id number] 2.16.840.1.305249.3.579. 2.593 1954 Unknown [id number] 2.16.840.1.586185.3.579. 2.593 1954 Unknown [id number] 2.16.840.1.673749.3.579. 2.593 1954 Unknown [id number] 2.16.840.1.425036.3.579. 2.593 1954 Unknown [id number] 2.16.840.1.898200.3.579. 2.593 1954 Unknown [id number] 2.16.840.1.440783.3.579. 2.593 1954 Unknown [id number] 2.16.840.1.816761.3.579. 2.727 1954 Unknown [id number] 2.16.840.1.447373.3.579. 2.727 1954 Unknown [id number] 2.16.840.1.825278.3.579. 2.727 1954 Unknown [id number] 2.16.840.1.422080.3.579. 2.727 1954 Unknown [id number] 2.16.840.1.858213.3.579. 2.727 1954 Unknown [id number] 2.16.840.1.326577.3.579. 2.727 1954 Unknown [id number] 2.16.840.1.587238.3.579. 2.727 1954 Unknown [id number] 2.16.840.1.076885.3.579. 2.727 1955 Unknown [id number] 2.16.840.1.334881.3.579. 2. 1954 Unknown [id number] 2.16.840.1.739307.3.579. 2. 1954 Unknown [id number] 2.16.840.1.228377.3.579. 2. 1954 Unknown [id number] 2.16.840.1.330841.3.579. 2. 1954 Unknown [id number] 2.16.840.1.343721.3.579. 2. 1954 Unknown [id number] 2.16.840.1.982147.3.579. 2. 1954 Unknown [id number] 2.16.840.1.967896.3.579. 2.1258 1954 Unknown [id number] 2.16.840.1.728994.3.579. 2.1258 1954 Unknown [id number] 2.16.840.1.902482.3.579. 2.1258 1954 Unknown [id number] 2.16.840.1.708887.3.579. 2.1258 1954 Unknown [id number] 2.16.840.1.110767.3.579. 2.1258 1954 Unknown [id number] 2.16.840.1.667326.3.579. 2.1258 1954 Unknown [id number] 2.16.840.1.307017.3.579. 2.1258 1954 Unknown [id number] 2.16.840.1.367575.3.579. 2.1258 1954 Unknown [id number] 2.16.840.1.895122.3.579. 2.1258 1954 Unknown [id number] 2.16.840.1.372347.3.579. 2.1258 1954 Unknown [id number] 2.16.840.1.306680.3.579. 2.1258 1954 Unknown [id number] 2.16.840.1.916779.3.579. 2.1258 1954 Unknown [id number] 2.16.840.1.107330.3.579. 2.1258 1954 Unknown [id number] 2.16.840.1.089427.3.579. 2.1258 1954 Unknown [id number] 2.16.840.1.829480.3.579. 2.1258 1954 Unknown [id number] 2.16.840.1.367184.3.579. 2.1258 1954 Unknown [id number] 2.16.840.1.847120.3.579. 2.1258 1954 Unknown [id number] 2.16.840.1.676001.3.579. 2.1258 1954 Unknown [id number] 2.16.840.1.011669.3.579. 2.1258 1954 Unknown [id number] 2.16.840.1.937823.3.579. 2.1258 1954 Unknown [id number] 2.16.840.1.625447.3.579. 2.1258 1954 Unknown [id number] 2.16.840.1.572759.3.579. 2.1258 1954 Unknown [id number] 2.16.840.1.543898.3.579. 2.1258 1954 Unknown [id number] 2.16.840.1.891409.3.579. 2.1258 1954 Unknown [id number] 2.16.840.1.152509.3.579. 2.1259 1954 Unknown [id number] 2.16.840.1.112345.3.579. 2.1259 Unknown Dionisio BC/BS [id number] Unknown Regular Auto/Medical [id number] Unknown [id number] 2.16.840.1.955972.3.579. 2.531 Unknown [id number] 2.16.840.1.093573.3.579. 2.531 Unknown [id number] 2.16.840.1.349731.3.579. 2.531 Unknown [id number] 2.16.840.1.197104.3.579. 2.531 Unknown [id number] 2.16.840.1.767606.3.579. 2.531 Unknown [id number] 2.16.840.1.246132.3.579. 2.531 Unknown [id number] 2.16.840.1.680053.3.579. 2.531 Unknown [id number] 2.16.840.1.598270.3.579. 2.531 Social History Date Type Detail Facility Tobacco Cigarettes [facility] Comment on above: 05/30 pkg daily Start: 08-27-2023 End: 04-26-2025 Sex Assigned At Female [facility] Tobacco smoking status [facility] Start: 05-07-2023 End: 04-26-2025 Tobacco smoking status NHIS Smokes tobacco daily [facility] History of tobacco use Cigarette Smoker [facility] Start: 05-07-2023 Tobacco use and exposure Smokeless tobacco non-user [facility] Start: 08-27-2023 End: 04-26-2025 Alcohol intake Lifetime non-drinker (finding) [facility] Start: 08-27-2023 End: 04-26-2025 History of Social function [facility] Start: 05-07-2023 Alcohol Comment caffeine intak e: more than 4 cups per day of coffee, pop, tea [facility] Start: 1955 Sex Assigned At Not on file [facility] Start: 04-12-2023 End: 12-28-2024 Tobacco smoking status NHIS Smoker (finding) [facility] Start: 1955 Sex Assigned At Female F [facility] Start: 08-16-2024 Gender identity Identifies as female gender (finding) [facility] Start: 11-09-2009 End: 08-31-2024 Sex Female (finding) [facility] Start: 09-07-2024 End: 12-08-2024 Tobacco smoking status Heavy tobacco smoker (finding) [facility] Comment on above: 05/30 pkg daily Tobacco smoking status Never [facility] Comment on above: 05/30 pkg daily Medical Equipment Procedure Code Equipment Code Equipment Origin al Text Equipment Identifier Dates [id number] Start: 04-05-2023 TEST BLOOD SUGAR THREE TIMES DAILY for 90 [id number] Blood Sugar Diagnostic (Onetouch Ultra Test) strip [...] Assessment Result Facility 12-08-2024 Functional Status No [facility] 09-07-2024 Functional Status N/A [facility] 07-07-2024 Functional Status N/A [facility] 06-07-2023 Functional Status N/A [facility] Clinical Notes 03-16-2022 to 04-26-2025 Mathieu Naqvi MD - 04/26/2025 1:40 PM EDT Note Date & Type Note Facility 04-26-2025 History of Present illness Narrative Virgen Zelaya is a 69 y.o. female [...] triglyceride 97, LDL 48, she is on insulin N 23 twice a day and R around 15 units every meal, Ozempic 0.25 mg once weekly, Jardiance 25 mg once daily HPI: 07/2024 New patient sent from Aggie Davis for uncontrolled diabetes, she said A1c was 10 2months ago, currently on Novolin N 27 units twice a day, Jardiance 25 mg once a day, Ozempic recenetly started 0.25 mg once weekly for almost 2 weeks, has CGM 1 percent in low range, 73 in good range, 26 in the high range average 153. metformin cause her GI symptoms. SUBJECTIVE: MEDICATIONS: Current Outpatient Medications Medication Instructions albuterol HFA 90 mcg/act inhaler alendronate (Fosamax) 70 MG tablet ASPIRIN 81 MG chewable tablet Every 24 hours busPIRone (Buspar) 7.5 MG tablet Every 12 hours Continuous Glucose Sensor (Dexcom G7 Sensor) misc cyclobenzaprine (Flexeril) 5 MG tablet empagliflozin (JARDIANCE) 25 mg, Oral, Daily ergocalciferol (Vitamin D2) 1.25 MG (18479 UT) capsule TAKE 1 CAPSULE ONE TIME [...] documentation in Social History. Depression Diabetes mellitus ([facility]) 03/25/2024 Difficulty walking Walk with a cane as needed About 1 Year Disc displacement, lumbar 03/25/2024 Disorder associated with type 2 diabetes mellitus ([facility]) 11/06/2024 Dyslipidemia 03/25/2024 Ear pain, right Greater trochanteric bursitis of left hip 03/25/2024 H/O hypercholesterolemia 03/25/2024 Headache, tension-type 1923 Hearing loss Hearing loss 03/25/2024 Heart disease HLD (hyperlipidemia) HTN (hypertension) HTN (hypertension) 03/25/2024 Hyperlipidemia 03/25/2024 Idiopathic peripheral neuropathy 08/03/2024 Insomnia Kidney stone Kidney stone 03/25/2024 Lipoma of back 03/25/2024 Loose body in knee 03/25/2024 NC (myocardial infarction) ([facility]) x2 MMT (medial meniscus tear) 03/25/2024 Myocardial infarct ([facility]) 03/25/2024 Neuropathy in diabetes ([facility]) 5 years Numbness in hands and feet Obesity with body mass index 30 or greater 03/25/2024 Otalgia 03/25/2024 Other chondrocalcinosis, right knee 03/25/2024 Other chronic pain 03/25/2024 Paresthesias in left hand 03/25/2024 Percocet use disorder, mild ([facility]) Pneumonia Pneumonia 03/25/2024 Pseudogout of right knee 03/25/2024 Pure hypercholesterolemia 08/03/2024 Purulent bronchitis ([facility]) 03/25/2024 Right leg pain 11/30/2016 Sensorineural hearing loss (SNHL) of both ears 03/25/2024 Shingles 01/1924 Sleep apnea Testing for it Stroke ([facility]) 03/25/2024 [place] [place] TIA (transient ischemic attack) 25 years ago Tobacco abuse 03/25/2024 Type 2 diabetes mellitus (HCC) Type 2 diabetes mellitus (HCC) 03/25/2024 Uterus cancer (HCC) Vision loss 2 years Work related injury 11/30/2016 Past Surgical History: Procedure Laterality Date CARPAL TUNNEL RELEASE Bilateral CHOLECYSTECTOMY 2005 FOOT SURGERY 1973 needle in foot removed HYSTERECTOMY 1988 KNEE SURGERY Right 2006 NAIL REMOVAL toenails removed x3 [place] ARTHROSCOPY KNEE DIAGNOSTIC W/WO SYNOVIAL BX SPX Right 02/24/2020 Dr. Ashraf [place] KNEE SCOPE,DIAGNOSTIC Right 09/30/2020 JAB TONSILLECTOMY 1972 [...] recent change. No heart burn, liver or gallbladder disease; no rectal bleeding or pain : No urinary pain , frequency or odor. MUSCULOSKELETAL: No muscle pain or cramps; no extremity weakness.No joint pain, stiffness, swelling or limitation of movement NEUROLOGY: No H/O seizures, [...] months (around 07/26/2025). documented in this encounter [facility] 04-15-2025 Note Consultation Note Patient: VIRGEN GONZALES Age: [...] course of physical therapy done at the [facility] and continued ongoing home exercise program [...] She is allergic to multiple medications including Broadus and codeine. She states that she has [...] TID, # 90 cap(s), Refills(s) 1, Pharmacy: [facility], 151, cm, 04/15/25 [...] list: All Problems Diabetes / SNOMED CT 466065529 / Confirmed Asthma / SNOMED CT 345874739 / Confirmed H/O hypercholesterolemia / SNOMED CT 4436370865 / Confirmed MMT (medial meniscus tear) / SNOMED CT 168735 (more content not included)... [facility] Comment on above: Result Comment: Elec tronically Signed By: Ashley Ospina PA-C\.br\Date and Time Signed: 04/15/25 14:31 EDT 04-07-2025 Hospital Discharge instructions Additional Instructions Sutures should be removed in 7 to 10 days Observe for any redness, swelling, purulent drainage at this present please follow-up Your tetanus was updated in emergency department Tylenol if needed for discomfort Wear finger splint for support until sutures are removed Follow-up with your PCP Return here if any problems persist or worsen as discussed [facility] Work Phone: 03-22-2025 Note Consultation Note Patient: VIRGEN GONZALES [...] worse despite all reasonable conservative treatments including acute care certified nursing assistant at least once a week and physical therapy. The physical therapy was done at the [facility]. It has been done this year. [...] list: All Problems Diabetes / SNOMED CT 604652312 / Confirmed Asthma / SNOMED CT 856837789 / Confirmed H/O hypercholesterolemia / SNOMED CT 0637848240 / Confirmed MMT (medial meniscus tear) / SNOMED CT 796493441 / Confirmed Smoker / IMO 780088 / Confirmed Added secondary to documentation in Social History. BMI 31.0-31.9,adult / SNOMED CT 161463271 / Confirmed Diabetes mellitus, type 2 / SNOMED CT 893344715 / Confirmed Hyperlipidemia / SNOMED CT 41921544 / Confirmed Chronic back pain / SNOMED CT 840765079 / Confirmed Lipoma of back / SNOMED CT 941638949 / Confirmed Renal lesion / SNOMED CT 0043101340 / Confirmed Bilateral renal cysts / SNOMED CT 3290041486 / Confirmed CKD (chronic kidney disease) / SNOMED CT 9312456716 / Confirmed Resolved: Hypertension / SNOMED CT 7922367098 Resolved: History of heart attack / SNOMED CT 7539184778 pt states no damage done per Resolved: NC - myocardial infarction / SNOMED CT 4979185190 Resolved: Pharyngitis / SNOMED CT 1914346292 Resolved: Osteoporosis / SNOMED CT 859013103 Resolved: Fatigue / SNOMED CT 493664846 Resolved: Cigarette smoker / SNOMED CT 624248686 Resolved: Breast lump / SNOMED CT 013181613 Resolved: Insomnia / SNOMED CT 820022636 Resolved: Lipoma of back / SNOMED CT 643745045 Canceled: Kidney stones / SNOMED CT 453443862 Canceled: Sinus drainage / SNOMED CT 170770468 Histories Past Medical History: Resolved NC - myocardial infarction (6753588350): Resolved. Pharyngitis (5632665691): Resolved. Osteoporosis (259295466): Resolved. Fatigue (412094146): Resolved. Cigarette smoker (239175614): Resolved. Breast lump (078559862): Resolved. Insomnia (183353770): Resolved. Lipoma of back (108531510): Resolve (more content not included)... [facility] Comment on above: Result Comment: Elec tronically Signed By: Bhavesh HUNG, Ashley\.br\Date and Time Signed: 03/22/25 08:50 EDT 01-28-2025 Note [facility] Clinic Note Chief Complaint: Patient here [...] Holter study 1 (more content not included)... [facility] 01-14-2025 Evaluation note Diagnosis Onset Date Resolution Hypersomnia acute January 14 12:05pm Hypoxia acute January 14 12:05pm Snoring acute January 14 12:05pm Obstructive sleep apnea syndrome noneactive January 14, 2025 12:05pm [facility] Work Phone: 1([phone]) 426-242905-30-2025 Evaluation + Plan noteExtracted from: Title:ANES Pre-operative Note 2022 Author:Jean Carlos Kapadia Date:12/25/24 Plan [place] [employer] Anesthesiologists (ASA) physical status classification: Class III. Anesthetic Preoperative Plan: Anesthesia General. Regional supraclavicular BPB. Future Appointments Appointment Date:03/08/2025 11:30:00 AM Scheduled Provider:Kang BOSS MD Location:[facility] Appointment Type:URO Office Visit [facility] 05-30-2025 NoteProgress Note-Physician Patient: VIRGEN GONZALES [...] (Eqv-K-Tab) 10 mEq ora (more content not included)...[facility]:Result Comment: Electronically Signed By: Segundo WRAY, Jean Carlos Petersen\.br\Date and Time Signed: 12/25/24 09:14 [id number] Note History and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
--- NOTE | 2025-05-10 22:19 | ED.GENADUL1 ---
HPI HPI - General Adult General Chief complaint: Recheck/Abnormal Lab/Rx Stated complaint: POSS HIGH SUGAR Time Seen by Provider: 05/10/25 21:59 Source: patient Mode of arrival: Wheelchair Limitations: no limitations History of Present Illness HPI narrative: This 69-year-old female with a history of diabetes presents for evaluation of elevated glucose. The patient had 2 steroid injections in her low back for back pain at [facility] earlier today. Earlier this evening she checked her sugar and it was 400. She took 2 glucose packs at that time thinking that the glucose packs would lower her blood sugar. According to the patient's brother the glucose packs used to be for either high blood sugar or low blood sugar. He was surprised to realize now that they are just for low blood sugar. She checked her sugar again after the 2 glucose packs and her sugar was around 500. She took 11 units of insulin at that time. She presents to the emergency department with a glucose greater than 600. She is not having any polyuria or polydipsia. She denies any chest pain. She has mild shortness of breath and is quite anxious. She has not had any abdominal pain nausea or vomiting. Related Data Home Medications ?Medication ?Instructions ?Recorded ?Confirmed buspirone 7.5 mg tablet 7.5 mg PO BID 01/24/24 03/09/25 empagliflozin 25 mg tablet 25 mg PO DAILY 01/24/24 03/09/25 (Jardiance) fluoxetine 20 mg capsule 20 mg PO DAILY 01/24/24 03/09/25 hydrochlorothiazide 25 mg tablet 25 mg PO DAILY 01/24/24 03/09/25 Held on 11/01/24. Instructions: Resume on 11/06/24. insulin NPH isoph U-100 human 100 24 unit subcut BID 01/24/24 03/09/25 unit/mL (3 mL) subcutaneous pen (Humulin N NPH U-100 Insulin Shilpa) pregabalin 75 mg capsule 75 mg PO BID 01/24/24 03/09/25 semaglutide 0.25 mg or 0.5 mg (2 1 mg subcut .weekly 01/24/24 03/09/25 mg/3 mL) subcutaneous pen injector (Ozempic) simvastatin 40 mg tablet 40 mg PO DAILY 01/24/24 03/09/25 alendronate 70 mg tablet 70 mg PO .weekly 02/07/24 03/09/25 aspirin 81 mg capsule 81 mg PO DAILY 02/07/24 03/09/25 albuterol sulfate 90 mcg/actuation 2 puff inhalation Q6H PRN 03/09/25 03/09/25 aerosol inhaler shortness of breath or wheezing diphenhydramine HCl 25 mg capsule 25 mg PO .qhs PRN allergies 03/09/25 03/09/25 (Allergy (diphenhydramine)) ergocalciferol (vitamin D2) 1,250 1,250 mcg PO QWEEK 03/09/25 03/09/25 mcg (50,000 unit) capsule (Vitamin D2) esomeprazole magnesium 40 mg 40 mg PO DAILY 03/09/25 03/09/25 capsule,delayed release (Nexium) ibuprofen 200 mg-phenylephrine HCl 1 tab PO QDAY 03/09/25 03/09/25 10 mg tablet (Advil Sinus Congestion-Pain) insulin regular human 100 unit/mL 1 sliding scale dose subcut 03/09/25 03/09/25 injection solution (Humulin R USEASDIRECTD Regular U-100 Insulin) nitroglycerin 0.4 mg sublingual 0.4 mg sublingual Q5M 03/09/25 03/09/25 tablet (Nitrostat) Previous Rx's ?Medication ?Instructions ?Recorded cyclobenzaprine 5 mg tablet 5 mg PO BID PRN muscle spasm 5 11/01/24 days #10 tabs hydrocodone 5 mg-acetaminophen 325 1 tab PO Q6H PRN pain #14 tabs 03/09/25 mg tablet methocarbamol 500 mg tablet 500 mg PO Q8H PRN spasms #20 tabs 03/09/25 Allergies Allergy/AdvReac Type Severity Reaction Status Date / Time Penicillins Allergy Unknown Hives Verified 05/10/25 22:09 propoxyphene (From Allergy Unknown itching Verified 05/10/25 22:09 Darvocet-N) azithromycin (From Zithromax) Allergy Rash Verified 05/10/25 22:09 cefuroxime Allergy Rash Verified 05/10/25 22:09 zolmitriptan (From Zomig) Allergy Hives Verified 05/10/25 22:09 Opioid HPI Opioid Management Most Recent Opioid Data: Last Pain Scale 10 03/09/25, 14:40 Last ORT Total Score 0 10/30/24, 23:57 Last ORT Risk Category Low Risk 10/30/24, 23:57 Review of Systems ROS Status of ROS 10 or more systems reviewed and unremarkable except as noted in history and below [facility] (Updated 05/11/25 @ 01:15 by Sue Dudley MD) Osteoporosis ?M81.0 - Age-related osteoporosis without current pathological fracture (ICD-10) High cholesterol ?E78.00 - Pure hypercholesterolemia, unspecified (ICD-10) HTN (hypertension) ?I10 - Essential (primary) hypertension (ICD-10) Myocardial infarction ?I21.9 - Acute myocardial infarction, unspecified (ICD-10) Diabetes ?E11.9 - Type 2 diabetes mellitus without complications (ICD-10) GERD (gastroesophageal reflux disease) ?K21.9 - Gastro-esophageal reflux disease without esophagitis (ICD-10) Surgical History H/O fine needle aspiration with imaging guidance ?Z98.890 - Other specified postprocedural states (ICD-10) H/O hand surgery ?Z98.890 - Other specified postprocedural states (ICD-10) S/P trigger finger release ?Z98.890 - Other specified postprocedural states (ICD-10) History of carpal tunnel release of both wrists ?Z98.890 - Other specified postprocedural states (ICD-10) History of tonsillectomy and adenoidectomy ?Z90.89 - Acquired absence of other organs (ICD-10) H/O: hysterectomy ?Z90.710 - Acquired absence of both cervix and uterus (ICD-10) H/O cardiac catheterization ?Z98.890 - Other specified postprocedural states (ICD-10) History of cholecystectomy ?Z90.49 - Acquired absence of other specified parts of digestive tract (ICD-10) S/P right knee arthroscopy ?Z98.890 - Other specified postprocedural states (ICD-10) Social History Within the past year, how often did you have a drink containing alcohol: never Within the past year, how often did you have six or more drinks on one occasion: never Score interpretation: A score less than 3 is consistent with normal alcohol consumption. Second hand tobacco smoke exposure: No Known occupational exposures/hazards: No Highest level of school completed/degree received: high school graduate Do you want help with school or training: No Are you now , , , , never or living with a partner: In a typical week, how many times do you talk on the telephone with family, friends, or neighbors: 3 or more times per week How often do you get together with friends or relatives: 3 or more times per week How often do you attend taoism or scientologist services: 4 or more times per year Do you belong to any clubs or organizations such as taoism groups unions, fraternal or athletic groups, or school groups: no Total score: 2 Score interpretation: A score of greater than or equal to 2 indicates the lowest level of social isolation. Little interest or pleasure in doing things: not at all Feeling down, depressed, or hopeless: not at all Feel stressed/tense/nervous/anxious/difficulty sleeping: not at all Exam Narrative Exam Narrative: Vital signs and Nursing Notes reviewed: As afebrile with normal pulse, normal blood pressure, she is not hypoxic with pulse ox of 95% on room air General: Awake, alert, oriented, she is overweight female, no acute distress, lying comfortably on the stretcher HEENT: Normocephalic atraumatic, mucous membranes are moist and pink, eyes are clear, normal conjunctiva, vision is grossly intact Neck: Supple, no meningeal signs, no anterior or posterior cervical lymphadenopathy Chest: Lungs are clear to auscultation with good air entry, there is no wheezing rhonchi or rales appreciated no accessory muscle use, patient is speaking in complete sentences-no chest wall tenderness to palpation CVS: Regular rate and rhythm S1-S2, no murmurs rubs or gallops, pulses are brisk and equal bilaterally ABD: Soft, nondistended, nontender, no rebound guarding or rigidity, bowel sounds are normal, no pulsatile masses appreciated Musc: Cleaning solution is present on the posterior mid to lower back, there are 2 gauze sponges on either side of the lumbar region of the spine status post steroid injection earlier today. Extremities: Moving all extremities, no lower extremity tenderness or swelling noted, negative Homans' sign, pulses are brisk and equal bilaterally Skin: Normal in appearance without rash,pallor, petechiae or purpura Neuro: No focal deficits Constitutional Vital Signs, click to edit/add: Last Vital Signs Temp 98.2 F 05/10/25 22:02 Pulse 89 05/10/25 22:02 Resp 18 05/10/25 22:02 BP 125/70 05/10/25 23:30 Pulse Ox 98 05/10/25 23:40 O2 Del Method Room Air 05/10/25 22:02 Course Vital Signs Vital signs: Vital Signs Temperature 98.2 F 05/10/25 22:02 Pulse Rate 89 05/10/25 22:02 Respiratory Rate 18 05/10/25 22:02 Blood Pressure 135/74 05/10/25 22:02 Pulse Oximetry 95 05/10/25 22:02 Oxygen Delivery Method Room Air 05/10/25 22:02 Temperature 98.2 F 05/10/25 22:02 Pulse Rate 89 05/10/25 22:02 Respiratory Rate 18 05/10/25 22:02 Blood Pressure 125/70 05/10/25 23:30 Pulse Oximetry 98 05/10/25 23:40 Oxygen Delivery Method Room Air 05/10/25 22:02 Medical Decision Making MDM Narrative Medical decision making narrative: This 69-year-old female with a history of type 1 diabetes presents for evaluation of hyperglycemia. The patient had 2 steroid injections in her back for chronic back pain earlier today. She was aware that this would make her glucose elevate. She took her glucose earlier today and it was 400. She then took 2 packets of glucose thinking that it would lower her sugar. Her brother states that these packets used to be for either high blood sugar or low blood sugar and was surprised to hear they only treat low blood sugar. She then checked her sugar at home and it was over 500. She gave herself 11 units of insulin and came to the emergency department. In emergency department her vital signs are stable, she is mentating normally. Her lungs are clear, abdomen is soft. There is no sign of DKA. Her Accu-Chek was high. An IV was placed and she was medicated with 10 units of IV insulin and a liter of normal saline. She has normal white count and stable hemoglobin. She has normal venous pH and pCO2. Her sodium is 135, potassium is 4.3, chloride is 101, CO2 is 22.6, BUN is 38, creatinine is 2.24 with a glucose of 706. Acetone is negative, anion gap is 15.7. Repeat Accu-Chek was greater than 500 and the patient was given continuous IV fluids and additional 10 units of IV insulin. She remains alert and stable in the emergency department. Her repeat Accu-Chek is 291. She is stable for discharge at this time. I instructed her to refrain from taking glucose if her sugar is not less than 100. Lab Data Labs: Lab Results 05/10/25 05/10/25 Range/Units 22:10 23:49 WBC 11.0 (4.0-11.0) 10^3/uL RBC 4.64 (4.20-5.40) 10^6/uL Hgb 13.4 (12.0-16.0) g/dL Hct 40.8 (36.0-48.0) % MCV 87.9 (81.0-99.0) fL MCH 28.9 (26.7-34.0) pg MCHC 32.8 (29.9-35.2) g/dL RDW 16.8 H (11.0-15.0) % Plt Count 170 (150-450) 10^3/uL MPV 12.0 (9.5-13.5) fL Neut % (Auto) 90.9 H (43.0-75.0) % Lymph % (Auto) 6.6 L (20.5-60.0) % [place] % (Auto) 1.5 L (1.7-12.0) % Eos % (Auto) 0.0 L (0.9-7.0) % Baso % (Auto) 0.1 L (0.2-2.0) % Neut # (Auto) 10.0 H (1.4-6.5) 10^3/uL Lymph # (Auto) 0.7 L (1.2-3.8) 10^3/uL [place] # (Auto) 0.2 L (0.3-0.8) 10^3/uL Eos # (Auto) 0.0 (0.0-0.7) 10^3/uL Baso # (Auto) 0.0 (0.0-0.1) 10^3/uL Abs Immat Gran (auto) 0.10 H (0.00-0.03) 10^3/uL Imm/Tot Granulo (auto) 0.9 H (0.0-0.5) % VBG pH 7.363 (7.330-7.430) VBG pCO2 40.6 (40.0-52.0) mmHg Sodium 135 L (136-145) mmol/L Potassium 4.3 (3.5-5.1) mmol/L Chloride 101 (98-107) mmol/L Carbon Dioxide 22.6 (21.0-32.0) mmol/L Anion Gap 15.7 BUN 38.0 H (7.0-18.0) mg/dL Creatinine 2.24 H (0.55-1.02) mg/dL Est GFR ( Amer) 26 L (>=60 mL/min/1.73m^2) Est GFR (Non-Af Amer) 22 L (>=60 mL/min/1.73m^2) BUN/Creatinine Ratio 17.0 Glucose 706 H* (74-106) mg/dL Calcium 8.9 (8.5-10.1) mg/dL Total Bilirubin 0.2 (0.2-1.0) mg/dL AST 9 L (15-37) U/L ALT 25 (14-59) U/L Alkaline Phosphatase 137 H (46-116) U/L Total Protein 7.1 (6.4-8.2) g/dL Albumin 3.1 L (3.4-5.0) g/dL Globulin 4.0 g/dL Albumin/Globulin Ratio 0.8 Acetone, Qual Negative (NEGATIVE) POC Glucose 544 H* (74-106) mg/dL Discharge Plan Discharge Chief Complaint: Recheck/Abnormal Lab/Rx Clinical Impression: Hyperglycemia due to diabetes mellitus Patient Disposition: Home, Self-Care Time of Disposition Decision: 01:15 Condition: Good Prescriptions / Home Meds: No Action simvastatin 40 mg tablet 40 mg PO DAILY buspirone 7.5 mg tablet 7.5 mg PO BID hydrochlorothiazide 25 mg tablet 25 mg PO DAILY fluoxetine 20 mg capsule 20 mg PO DAILY pregabalin 75 mg capsule 75 mg PO BID Jardiance 25 mg tablet 25 mg PO DAILY Ozempic 0.25 mg or 0.5 mg (2 mg/3 mL) pen injector 1 mg SUBCUT .weekly Rx Instructions: Sundays Humulin N NPH Insulin KwikPen 100 unit/mL (3 mL) insulin pen 24 unit subcut BID cyclobenzaprine 5 mg tablet 5 mg PO BID PRN (Reason: muscle spasm) 5 Days Qty: 10 0RF ergocalciferol (vitamin D2) [Vitamin D2] 1,250 mcg (50,000 unit) capsule 1,250 mcg PO QWEEK Advil Sinus Congestion-Pain 200-10 mg tablet 1 tab PO QDAY diphenhydramine HCl [Allergy (diphenhydramine)] 25 mg capsule 25 mg PO .qhs PRN (Reason: allergies) Humulin R Regular U-100 Insuln 100 unit/mL solution 1 sliding scale dose subcut USEASDIRECTD albuterol sulfate 90 mcg/actuation HFA aerosol inhaler 2 puff INHALATION Q6H PRN (Reason: shortness of breath or wheezing) nitroglycerin [Nitrostat] 0.4 mg tablet, sublingual 0.4 mg sublingual Q5M Rx Instructions: do not exceed 3 doses per episode esomeprazole magnesium [Nexium] 40 mg capsule,delayed release(DR/EC) 40 mg PO DAILY methocarbamol 500 mg tablet 500 mg PO Q8H PRN (Reason: spasms) Qty: 20 0RF hydrocodone-acetaminophen 5-325 mg tablet 1 tab PO Q6H PRN (Reason: pain) Qty: 14 0RF alendronate 70 mg tablet 70 mg PO .weekly Rx Instructions: Sundays aspirin 81 mg capsule 81 mg PO DAILY Print Language: Chinese Instructions: Diabetic Hyperglycemia (ED) Referrals: JOSUÉ DAVIS [Primary Care Provider, Family Practice] - 1 week
[2025-05-10 22:25] LABS: Hematocrit 40.8 % (36.0-48.0); Hemoglobin 13.4 g/dL (12.0-16.0); Immature Granulocytes Abs Auto 0.10 10^3/uL (0.00-0.03); Immature Granulocytes Pct Auto 0.9 % (0.0-0.5); Lymphocytes Absolute Auto 0.7 10^3/uL (1.2-3.8); Mean Corpuscular HGB Conc 32.8 g/dL (29.9-35.2); Mean Corpuscular Hemoglobin 28.9 pg (26.7-34.0); Mean Corpuscular Volume 87.9 fL (81.0-99.0); Platelet Count 170 10^3/uL (150-450); Red Blood Count 4.64 10^6/uL (4.20-5.40); White Blood Count 11.0 10^3/uL (4.0-11.0)
[2025-05-10 22:26] LABS: PCO2 VBG 40.6 mmHg (40.0-52.0); pH VBG 7.363 (7.330-7.430)
[2025-05-10] MEDS: 0.9 % SODIUM CHLORIDE 1,000 ML 1000 ML IV (22:35)
[2025-05-10] MEDS: INSULIN REGULAR, HUMAN (100 UNIT/ML) 10 ML MDV 10 UNIT IV (22:35)
[2025-05-10 22:43] LABS: Alanine Aminotransferase 25 U/L (14-59); Albumin Globulin Ratio 0.8; Albumin Level 3.1 g/dL (3.4-5.0); Alkaline Phosphatase 137 U/L (46-116); Anion Gap 15.7; Aspartate Amino Transferase 9 U/L (15-37); Blood Urea Nitrogen 38.0 mg/dL (7.0-18.0); Calcium 8.9 mg/dL (8.5-10.1); Carbon Dioxide 22.6 mmol/L (21.0-32.0); Chloride 101 mmol/L (98-107); Estimated GFR (African America 26 (>=60 mL/min/1.73m^2); Estimated GFR (Non-African Ame 22 (>=60 mL/min/1.73m^2); Globulin 4.0 g/dL; Potassium 4.3 mmol/L (3.5-5.1); Sodium 135 mmol/L (136-145); Total Protein 7.1 g/dL (6.4-8.2)
[2025-05-10 22:45] LABS: Glucose 706 mg/dL (74-106)
--- NOTE | 2025-05-10 22:47 | PC.NURSE ---
this patient requested to sit in a chair, i did get a chair for this patient and this patient has reach of the call light and is watching tv
--- NOTE | 2025-05-10 23:02 | PC.NURSE ---
this patient sitting upright on the chair watching tv. this patient voices no concerns, needs and shows no signs of distress
--- NOTE | 2025-05-10 23:50 | PC.NURSE ---
repeat POC Glucose = 544, Dr Marker informed
[2025-05-11] VITALS (8 sets, daily range): BP systolic 123–128; BP diastolic 63–95; O2SAT 96–98
[2025-05-11] MEDS: INSULIN REGULAR, HUMAN (100 UNIT/ML) 10 ML MDV 10 UNIT IV (00:09)
[2025-05-11] MEDS: 0.9 % SODIUM CHLORIDE 1,000 ML 125 ML IV (00:21)
--- NOTE | 2025-05-11 01:27 | PC.NURSE ---
i gave this patient verbal and written discharge orders and this patient voices yes to understanding these. at time of discharge this patient voices no concerns, needs and shows no signs of distress
== END 2025-05-11 01:26 | disposition home or self-care (01) ==
PROVIDERS: Emergency Provider Emergency Medicine; PCP Nurse Practitioner Family
DX: E10.65 Type 1 diabetes mellitus with hyperglycemia (principal); R06.02 Shortness of breath; Z79.85 Long-term (current) use of injectable non-insulin antidiabetic drugs; Z79.84 Long term (current) use of oral hypoglycemic drugs
CPT/HCPCS: 36415; 80053; 81001; 82009; 82800; 82948; 85025; 96360; 96361; 99284; J1817

== ENCOUNTER 2025-05-24 09:16 | Outpatient (OUT) | payer MEDICARE, SELFPAY ==
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
--- OUTSIDE RECORDS SUMMARY | 2025-05-24 09:20 | XMS_ITS | Clinical Summary ---
Author Organization [facility] Address [address] [place] [address] Phone Care Team Providers Care Senior Data Quality Analyst Name Role Phone Carter Granger MD Primary Care Provider [phone] Social History Tobacco UseTypesPacks/DayYears UsedDateSmoking Tobacco: Never Assessed CommentsUnknownSex and Gender InformationValueDate RecordedSex Assigned at Not on fileLegal VojVsvjwd55/25/2022 2:55 PM ESTGender IdentityNot on fileSexual OrientationNot on file Plan of Treatment Not on file Care Teams Team MemberRelationshipSpecialtyStart DateEnd Date Carter Granger MD [address] [facility] [place] [id number] PCP - [facility]01/27/20
--- OUTSIDE RECORDS SUMMARY | 2025-05-24 09:20 | XMS_ITS | Encounter Summary ---
Author Organization [facility] Address [address] [place] [address] Care Team Providers Care Transportation Job Titles Name Role Phone Aggie Machuca MD Unavailable [phone] Carter Granger MD Primary Care Provider [phone] Da Rosas DO Unavailable Morales De La Rosa DO Unavailable [phone] Encounter Details DateTypeDepartmentCare Team (Latest Contact Info)Nqokqyyrohf83/20/2025amboo flowsheet N[facility] [place] [facility] [address] [place] [place] [phone] Da Rosas, DO [address] [place] [address] Social History Tobacco UseTypesPacks/DayYears UsedDateSmoking Tobacco: Every DayCigarettes Smokeless Tobacco: NeverAlcohol UseStandard Drinks/WeekCommentsNever0 (1 standard drink = 0.6 oz pure alcohol)caffeine intake: more than 4 cups per day of coffee, pop, teaCommentsUnknownSex and Gender InformationValueDate RecordedSex Assigned at RspitJtklxe36/19/2025 9:57 AM ESTLegal SexFemale 10/10/2022 6:55 PM EDTGender SnkttkgyYmevzo26/19/2025 9:57 AM ESTSexual OrientationNot on filedocumented as of this encounter Plan of Treatment DateTypeDepartmentCare Team (Latest Contact Info)Tupgppbmccj98/23/2026 1:50 PM EDTOffice Visit [facility] [place] [facility] [address] [place] [address] Mathieu Naqvi MD [address] [place] [address] 11/18/2025 10:15 AM EDTOffice Visit [facility] [place] [facility] [address] [place] [address] Da Rosas DO [address] [place] [place] [address] documented as of this encounter Visit Diagnoses Not on filedocumented in this encounter Care Teams Team MemberRelationshipSpecialtyStart DateEnd Carter Granger MD [facility] [place] [address] PCP - GeneralFamily Medicine04/10/24 Aggie Machuca MD [address] [place] [address] Referring PhysicianFamily Medicine04/10/24 Da Rosas DO [address] [place] [address] Otolaryngology04/10/24 Morales De La Rosa DO [address] [place] [address] Referring PhysicianNeurology1documented as of this encounter
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
--- OUTSIDE RECORDS SUMMARY | 2025-05-24 09:21 | XMS_ITS | Clinical Summary ---
Author Organization [facility] Address [address] [place] [address] Care Team Providers Care Community Service Worker Name Role Phone Aggie Machuca CNP Primary Care Provider [phone] Allergies Active AllergyReactionsCriticalityNoted DateCommentsCodeineRash,UnknownLow 07/13/2021 Other Reaction(s): Nausea Propoxyphene N-FfkhuocdhktmsQdovc39/23/2025Hydrocodone-AcetaminophenUnknown Bdxyfr9707/30/2014 Other Reaction(s): Unknown IzlvvmrxzQlpihgtd35/23/3717JbfvessqqrqIixgcbuXjuclz24/02/2015 Other Reaction(s): Difficulty breathing at rest, hives, hives, Unknown Oxycodone-DgtraouxyjondNsitr89/23/2025PropoxypheneItching,UnknownMedium 11/30/2016 Medications MedicationSigDispense QuantityRefillsLast FilledStart DateEnd DateStatus alendronate (Fosamax) 70 mg tablet Take 70 mg by mouth every 7 (seven) days.Active simvastatin (Zocor) 40 mg tablet Take 40 mg by mouth at bedtime.Active hydroCHLOROthiazide (HYDRODiuril) 25 mg tablet Take 25 mg by mouth in the morning.Active aspirin 81 mg chewable tablet Chew 81 mg in the morning.Active FLUoxetine (PROzac) 20 mg capsule Take 20 mg by mouth in the morning.Active pregabalin (Lyrica) 75 mg capsule Take 75 mg by mouth two times daily.04/08/2023ctive esomeprazole (NexIUM) [address] capsule Take 20 mg by mouth before breakfast.Active Jardiance 25 mg Take 25 mg by mouth in the morning.Active busPIRone (Buspar) 7.5 mg tablet Take 7.5 mg by mouth two times daily.04/23/2023ctive Lasix 20 mg tablet Take 20 mg by mouth if needed.Active fluticasone (Flovent HFA) 110 mcg/actuation inhaler every 12 (twelve) hours.Active insulin regular (HumuLIN R,NovoLIN R) 100 unit/mL injection vial Inject 8 Units under the skin.5Active lisinopril 10 mg tablet Take 10 mg by mouth in the morning.Active Ozempic 0.25 mg or 0.5 mg (2 mg/3 mL) pen injector Inject 0.5 mg under the skin once a week.5Active albuterol 90 mcg/actuation inhaler Inhale 2 puffs in the morning, noon, at afternoon, at bedtime,.4Active cyclobenzaprine (Flexeril) 5 mg tablet Take 5 mg by mouth at bedtime.11/01/2024tive Active Problems ProblemNoted DateDiagnosed CkunScvwlw02/03/2025MI 31.0-31.9,adult01/28/2025KD (chronic kidney disease)01/28/2025H/O wmgstnloiqewwqdiotzl94/03/2025 Wkfpnsxvowwksh01/03/2025Lipoma of back01/28/2025MMT (medial meniscus tear) 01/28/20255679Dbaxdonip64/06/2025ack pain08/03/2024enign essential hypertension 08/03/2024Diabetes gackhoos17/06/7633Yvnrqlwbujva68/06/2025HTN (hypertension) 08/03/2024Idiopathic peripheral ybwvpvwxir91/06/2025Kidney stone08/03/2024 Myocardial cbzhwtu7208/03/20240507Jyhmfwush10/06/2025Pure hypercholesterolemia 08/03/20241308Tezrjg57/06/2025Tobacco abuse08/03/2024Right leg pain11/30/2016Work related ncygqg7911/30/2016 Family History Medical HistoryRelationNameCommentsHeart failureFatherHeart failureMotherHeart failurePaternal GrandmotherRelationNameStatusCommentsFatherDeceasedMother DeceasedPaternal Grandmother Social History Tobacco UseTypesPacks/DayYears UsedDateSmoking Tobacco: Every DayCigarettes Smokeless Tobacco: Never Tobacco Cessation:Ready to Q uit: Not Asked; Counseling Given: Not Answered Alcohol UseStandard Drinks/WeekCommentsNot Currently0 (1 standard drink = 0.6 oz pure alcohol)UT Safety & EnvironmentAnswerDate RecordedFear of Current or Ex-PartnerNot on file09/19/2023Emotionally AbusedNot on file09/19/2023hysically AbusedNot on file09/19/2023Sexually AbusedNot on file09/19/2023hysically or Sexually AbusedNot on file09/19/2023CommentsUnknownSex and Gender InformationValueDate RecordedSex Assigned at BirthNot on fileLegal SexFemale 01/24/2022 10:28 PM EDTGender IdentityNot on fileSexual OrientationNot on file Last Filed Vital Signs Vital SignReadingTime TakenCommentsBlood Eyeducmk749/7607 1:36 PM EDT Upwii1666 1:36 PM EDTTemperature--Respiratory Rate--Oxygen Kwrtseddjr43% 01/28/2025 1:36 PM EDTInhaled Oxygen Concentration--Oranjj17.6 kg (202 lb) 01/28/2025 1:36 PM SMKQxnonq905.4 cm (5')01/28/2025 1:36 PM EDTBody Mass Index 39.4507 1:36 PM EDT Plan of Treatment Health MaintenanceDue DateLast DoneCommentsCT Wnhafezzsjwa82/12/1955Colonoscopy 5Colorectal Cancer Cmjukmowl46/12/1955Diabetes: Hemoglobin A1C 1954FIT-DNA1954FIT1954FOBT1954Medicare Annual Wellness (AWV)1955 3475Uhucrkimqhbdn05/12/1955Diabetes: Retinopathy Osxlehfzr09/12/1965 Depression Aasocoltn28/12/1967Diabetes: Urine Protein Aycawygkc67/12/1974 Ncsaxgads84/12/1995Fall Risk Biwsdthkj65/12/2020COVID-19 Vaccine ( season)09/, 11/22/2020Influenza Vaccine (#1)2025 06/30/2023, 10/30/2022, 05/31/2022, Additional history existsPneumococcal Vaccine: 50+ Years (3 of 3 - PCV20 or PCV21), 07/29/2018 Adult Njwffam10Zoster CozaokspZiowxuxvm88/14/2024, 01/11/2024, 12/27/2023HIB VaccinesAged OutNo longer eligible based on patient's age to complete this topicHPV VaccinesAged OutNo longer eligible based on patient's age to complete this topicIPV VaccinesAged OutNo longer eligible based on patient's age to complete this topicMeningococcal B VaccineAged OutNo longer eligible based on patient's age to complete this topicMeningococcal VaccineAged OutNo longer eligible based on patient's age to complete this topicRotavirus Vaccines Aged OutNo longer eligible based on patient's age to complete this topic Insurance Care Teams Team MemberRelationshipSpecialtyStart DateEnd Aggie Machuca CNP [address] [place] [address], [place] [address] PCP - GeneralFamily Jepsxzby44/20/24
--- OUTSIDE RECORDS SUMMARY | 2025-05-24 09:21 | XMS_ITS | Encounter Summary ---
Author Organization [facility] Address [address] [place] [address] Care Team Providers Care Plastic Welding Machine Operator Name Role Phone Aggie Machuca MD Unavailable Carter [place] MD Primary Care Provider [phone] Da Rosas DO Unavailable [phone] Morales De La Rosa DO Unavailable [phone] Encounter Details DateTypeDepartmentCare Team (Latest Contact Info)Bxkhljszazg63/20/2025Travel Social History Tobacco UseTypesPacks/DayYears UsedDateSmoking Tobacco: Every DayCigarettes Smokeless Tobacco: NeverAlcohol UseStandard Drinks/WeekCommentsNever0 (1 standard drink = 0.6 oz pure alcohol)caffeine intake: more than 4 cups per day of coffee, pop, teaCommentsUnknownSex and Gender InformationValueDate RecordedSex Assigned at KuaxuPftsqt84/19/2025 9:57 AM ESTLegal SexFemale 10/10/2022 6:55 PM EDTGender AutektrkImkibc54/19/2025 9:57 AM ESTSexual OrientationNot on filedocumented as of this encounter Plan of Treatment DateTypeDepartmentCare Team (Latest Contact Info)Rugnkxwfcca48/23/2026 1:50 PM EDTOffice Visit [facility] [address] [place] [phone] Mathieu Naqvi MD [address] [place] [address] 11/18/2025 10:15 AM EDTOffice Visit [facility] [address] [place] [address] Da Rosas DO [address] [place] [address] documented as of this encounter Visit Diagnoses Not on filedocumented in this encounter Care Teams Team MemberRelationshipSpecialtyStart Date Carter Granger MD [address] [place] [phone] PCP - GeneralFamily Medicine04/10/24 Aggie Machuca MD [address] [place] [address] Referring PhysicianFamily Medicine04/10/24 Da Rosas DO [address] [place] [address] Otolaryngology04/10/24 Morales De La Rosa DO [address] [place] [address] Referring PhysicianNeurology1documented as of this encounter
--- NOTE | 2025-05-24 09:23 | US_ITS ---
The [address] [address] Patient Name: IDRIS SONG MRN: [id number] date: 1955 Sex: F Assigned Patient Location: Current Patient Location: [place] Accession/Order Number: [id number] Exam Date: 05/24/2025 09:25 Report Date: 05/24/2025 10:27 At the request of: MARCELA BOSS MD Procedure: US renal BI BILATERAL RENAL AND BLADDER ULTRASOUND CLINICAL HISTORY: bilateral renal cysts on MRI COMPARISON: MRI 04/01/2025 Estimation of renal size is approximately 9.2 cm on the right and 9.2 cm on the left. No shadowing calculi or hydronephrosis are identified. Multiple cystic areas are seen at the right kidney, largest it is exophytic at the superior pole measuring 2.1 x 1.8 x 1.7 cm. There are also cysts on the left measuring up to 11 mm. There is no perinephric fluid. A splenic cyst is incidentally noted The urinary bladder is partially distended with a volume of 182 mL. No contour or intraluminal abnormalities are seen. US/US renal BI IMPRESSION: BILATERAL RENAL CYSTS. NO OBSTRUCTIVE UROPATHY. Impression dictated by: Aylin Borrero M.D. 05/24/2025 10:27 AM Dictation Location: [place] [address] Electronically authenticated by: [id number] Y Date: 05/24/2025 10:27
--- OUTSIDE RECORDS SUMMARY | 2025-05-24 09:26 | XMS_ITS | CCD ---
Author Organization [facility] [place] [facility] Care Team Providers Care Mail Clerk Bills Name Role Phone AGGIE FU Primary Care [...] Consulting Unavailable SUSAN, AGGIE Consulting Unavailable SUSAN, AGIGE Attending Unavailable SUSAN, AGGIE Primary Care Unavailable [...] Davis-C Aggie Isabel Primary Care Provider [phone] DO Brice Estrella Attending Provider AVIVA Davis Aggie Isabel Primary Care Provider [phone] AVIVA Davis Aggie Isabel Attending Provider DO Da Phillip Attending Provider Susan WRAY, Aggie Unavailable Carter Granger MD Primary Care Provider Da Phillip DO Unavailable [phone] Brice Estrella Referring Unavailable Brice Estrella Attending Unavailable Tiny Fallon Attending Unavailable Tiny Fallon Attending Unavailable Unallocated MD, Alhajis Provider Primary Care Provi neris Olman De La Rosa DO Unavailable Aretha Valadez APRN Attending Provider Susan EDUCATION RN-C, Aggie Isabel Primary Care Provider [phone] Olman De La Rosa DO Attending Provider [phone] Susan EDUCATION RN-C, Aggie Isabel Primary Care Provider Aretha Valadez APRN Attending Provider Susan EDUCATION RN-C, Aggie Isbael Primary Care Provider [phone] Olman De La Rosa DO Attending Provider Aretha Valadez APRN Attending Provider Dinah Sepulveda MD Attending Provider Ponce Silvestre Other Provider Donya WRAY, aimee Other Provider Jose Nair DO Attending Provider Unavailab Jose Wiggins DO Attending Provider Susan EDUCATION RN-C, Aggie Hall Attending Provider Sue Henning Unavailable Unavailable Carter Granger MD Primary Care Provider Susan EDUCATION RN-C, Aggie Hall Primary Care Provider [phone] PONCE SILVESTRE Attending Unavailable PONCE SILVESTRE Attending Unavailable Payton Goodwin DO Attending Provider [phone] Susan EDUCATION RN-C, Aggie Hall Primary Care Provider Sofya Rosen APRN Emergency Provider Aggie Davis Attending Unavailable Aggie Davis Admitting Unavailable Sofya Rosen Admitting Unavailable Sofya Rosen Attending Unavailable Aggie Davis Primary Care Unavailable Nirmala, Eduardab A Consulting Unavailable DerickDinah Admitting Unavailable DerickSummerul Attending Unavailable Aggie Davis Isabel Primary Care Unavailable Donya, Ahmad Consulting Unavailable Aretha Valadez M Admitting Unavailable Aretha Valadez Attending Unavailable Aggie Davis Isabel Primary Care Unavailable Olman De La Rosa Admitting Unavailab le Olman De La Rosa Attending Unavailab Aggie Luna Isabel Primary Care Unavailable Aretha Valadez M Admitting Unavailable Aretha Valadez Attending Unavailable Aggie Davis Isabel Primary Care Unavailable Aggie Davis Attending Unavailable Aggie Davis Admitting Unavailable Jose Nair Attending Unavailable Jose Nair Admitting Unavailable Olman De La Rosa DO Unavailable [phone] Susan EDUCATION RN-C, Aggie Hall Primary Care Provider Cristino BUTLER-FAMILY PRACTICE DOCTOR-Kala Stevens Attending Provider Rafi Wang Referring Unavailable Rafi Wang Attending Unavailable Ashley Ospina Attending Unavailable Ashley Ospina Admitting Unavailable AGGIE DAVIS Referring Unavailable Ashley Ospina Attending Unavailable Ashley Ospina Admitting Unavailable Carter Granger Referring Unavailable Kang BOSS Attending Unavailable Brown, Brice A Referring Unavailable Brown, Brice A Attending Unavailable Brown, Brice A Admitting Unavailable Aggie Davis MD Unavailable Carter Granger MD Primary Care Provider [phone] DONYA, THOMASMAD F Attending Unavailable DONYA, AHMAD F Referring Unavailable ESTRELLA, OLMAN Attending Unavailable AGGIE DAVIS Referring Unavailable ESTRELLAOLMAN Referring Unavailable BROWN, BRICE A Attending Unavailable BROWN, BRICE A Referring Unavailable BROWN, BRICE A Referring Unavailable ESTRELLA, OLMAN Attending Unavailable BIEDDA YEE Attending Unavailable BROWN, BRICE A Attending Unavailable BROWN, BRICE A Referring Unavailable BILENKA, DA Rubio Attending Unavailable SUSAN, AGGIE Referring Unavailable BROWN, BRICE A Referring Unavailable DONYA, AHMAD F Attending Unavailable DONYA, AHMAD F Referring Unavailable BROWN, BRICE A Attending Unavailable BROWN, BRICE A Referring Unavailable DONYA, THOMASMAKasia F Attending Unavailable BILENKA, DA Rubio Attending Unavailable Rafi Wang Referring Unavailable Rafi Wang Attending Unavailable Kang BOSS Attending Unavailable Carter Granger Referring Unavailable Brown, Brice A Admitting Unavailable Brown, Briec A Attending Unavailable Brown, Brice A Referring Unavailable Brown, Brice A Admitting Unavailable Brown, Brice A Attending Unavailable Pj, Brice A Referring Unavailable Kang BOSS Attending Unavailable Jori Cason DO Attending Provider Allergies Allergy ClassificationReported Allergen(s)Allergy TypeDate of OnsetReaction(s) Facility (14 sources)Acetaminophen / HYDROcodone; Translations: [acetaminophen-hydrocodone]Drug Allergyitching , sick to [facility] (14 sources)Acetaminophen / oxyCODONE; Translations: [acetaminophen-oxycodone] Drug Allergysleeps a long [facility] (14 sources)acetaminophen / propoxyphene; Translations: [acetaminophen-propoxyphene][facility] ([facility] sources)Codeine; Translations: [codeine]Drug Gfhuciy27-98-3559ImguFwfzhyAd[facility] (20 sources)Penicillins; Translations: [penicillins]Drug xipqwzl64-68-6407 Difficulty breathing at rest, [facility] ([facility] sources)Propoxyphene; Translations: [propoxyphene]Drug Njhfmss64-86-9954 Itching, [facility] (1 source)PropoxypheneDrug Zcoikxb45-39-6821[facility] (1 source)ZOLMitriptanDrug Dcfjubi35-78-8372[facility]ys [facility] (1 source)Darvocet-N 100Drug allergy (disorder)31-09-4178[facility]tt [facility] (20 sources)Acetaminophen / HYDROcodone; Translations: [HYDROCODONE-ACETAMINOPHEN]Drug Qbhwsgr92-19-0185NohygbjNLRV Healthcare (20 sources)Acetaminophen / oxyCODONE; Translations: [OXYCODONE-ACETAMINOPHEN] Drug Qcpfgut61-19-0041EWZ[facility] (20 sources)HYDROcodoneDrug Wmlnorp74-59-9442HwkcyffARCA [facility] (20 sources)traMADolDrug Afylgfy82-42-4440FW[facility] (15 sources)Acetaminophen; Translations: [acetaminophen]Drug Elaaceq93-91-9641 [facility] (20 sources)oxyCODONE; Translations: [oxycodone]Drug Jgjeiiz96-93-6700UohkxbMercy [facility] (18 sources)Penicillin; Translations: [penicillin G]Drug Vhmmfwt03-97-9886htpffGood [facility] (20 sources)ZOLMitriptan; Translations: [zolmitriptan]Drug Djvseoi99-75-5696 felt like I was on [facility] (16 sources)predniSONE; Translations: [prednisone]Drug Qhcmlbl40-32-7647MdghjeeqReg[facility] (20 sources)metFORMIN; Translations: [METFORMIN]Drug Jcqcnif94-67-6943Dbwloqjb [facility] (1 source)PROPOXYPHENE N-ACETAMINOPHEN; Translations: [PROPOXYPHENE N-ACETAMINOPHEN]Propensity to adverse reactions to drug (disorder)08-20-2024 [facility] (1 source)CodeineDrug Slsicjq24-06-3424WyhafyxpaSalem [facility] (1 source)HYDROcodoneDrug Qiofhkb53-06-8481NmyjhwcfsSalem [facility] (1 source)metFORMINDrug Ldanrfc30-84-1736UabjkbahmSalem [facility] (1 source)PropoxypheneDrug Sxhxwsp90-18-0551YxycdapivSalem Regional [facility] Medications Current Medications MedicationDrug Class(es)DatesSig (Normalized)Sig (Original)0.25 MG, 0.5 MG Dose 3 ML semaglutide 0.68 MG/ML Pen Injector [Ozempic] (4 sources)Start: 89-30-6902Pfdosow 2 mg/3 mL (0.25 mg or 0.5 mg dose) subcutaneous solution See Instructions, Sundays, Refills(s) 0 Start Date: 09/07/24 Status: Ordered Repeat number: 1Start: 89-78-4849Duunihz 2 mg/3 mL (0.25 mg or 0.5 mg dose) subcutaneous solution See Instructions, Refills(s) 0 Start Date: 09/07/24 Status: Orderedacetaminophen 325 mg oral capsule (6 sources)Start: 21-72-9406zakg 1 capsule by mouth every six hours as needed Acetaminophen 325 mg capsule Active 325 MG PO Every 6 hours as needed November 23, 2024 12:00am Complies with drug ytnyqueiyv369017 200 actuat albuterol 0.09 mg/actuat metered dose inhaler (20 sources)beta2-Adrenergic AgonistStart: 20-23-7758Ieoztubhs Sulfate 90 mcg/actuation HFA aerosol inhaler Active 2 INH INHALATION Four times daily as n eeded for shortness of breath or wheezing August 19, 2024 1:00am Complies with drug therapyStart: 63-42-3115aczcdwrkl HFA 90 mcg/act inhaler 12/11/2023 ActiveAlbuterol (Eqv-Proventil HFA) 90 mcg/inh inhalation aerosol (4 sources)Start: 30-84-3837Cwequlwcm (Eqv-Proventil HFA) 90 mcg/inh inhalation aerosol See Instructions, Refills(s) 0 Start Date: 09/07/24 Status: Ordered Repeat number: 1Start: 28-07-8403Chpmlwkec (Eqv-Proventil HFA) 90 mcg/inh inhalation aerosol See Instructions, Refills(s) 0 Start Date: 09/07/24 Status: Orderedalendronic acid 70 mg oral tablet (20 sources)BisphosphonateStart: 10-39-1364urur 1 tablet by mouth every week Alendronate 70 mg tablet Active 70 MG PO every week August 19, 2024 1:00am Complies with drug therapyaspirin 81 mg delayed release oral tablet (20 sources)Platelet Aggregation Inhibitor, Nonsteroidal Anti-inflammatory Drug Start: 11-21-0473bbuy 1 tablet by mouth once dailyAspirin (Aspir-81) 81 mg Tablet,Delayed Release (Dr/Ec) Active 81 MG PO Daily October 02, 2017 1:00am Complies with drug therapyStart: 37-99-1862dklh 81 mg by mouth once dailyaspirin 81 mg, Oral, Daily, Refills(s) 0, Other (see comment) Start Date: 05/02/16 Status: Ordered Repeat number: 1ASPIRIN 81 MG chewable tablet 1 (one) time each day at the same time ActiveBlood Glucose Monitoring Suppl (True Metrix Air Glucose Meter) w/Device kit (20 sources)Start: 07-01-2023 End: 11-78-3686Irzwf Glucose Monitoring Suppl (True Metrix Air Glucose Meter) w/Device kit 07/01/2023 11/05/2024 DiscontinuedStart: 19-57-3318Mmrxf Glucose Monitoring Suppl (True Metrix Air Glucose Meter) w/Device kit 07/01/2023 Active Start: 54-26-2089Kejzx Glucose Monitoring Suppl (True Metrix Air Glucose Meter) w/Device kitbusPIRone hydrochloride 7.5 mg oral tablet (20 sources)Start: 08-71-4653hcyg 1 tablet by mouth twice dailyBuspirone 7.5 mg tablet Active 7.5 MG PO Twice daily August 19, 2024 1:00am Complies with drug therapyStart: 79-43-5603zvkb 75 mg by mouth twice dailybusPIRone 75 mg, Oral, BID, Refills(s) 0, Anxiety Start Date: 06/07/23 Status: OrderedStart: 04-23-2023 busPIRone (Buspar) 7.5 MG tablet every 12 (twelve) hours 04/23/2023 Active cephalexin 500 mg oral capsule (1 source)Cephalosporin AntibacterialStart: 56-33-6978pddf 1 capsule by mouth every twelve hourscephalexin 500 mg Cap 500 mg = 1 cap(s), Oral, q12hr, # 20 cap(s), Refills(s) 0, Pharmacy: [facility], 152, cm, 07/07/24 18:23:00 EST, Height/Length Dosing, 94.1, kg, 07/07/24 18:23:00 EST, Weight Dosing Start Date: 07/07/24 Status: OrderedChlorpheniramine / Ibuprofen / Pseudoephedrine (6 sources)alpha-Adrenergic Agonist, Histamine-1 Receptor Antagonist, Nonsteroidal Anti-inflammatory DrugStart: 75-39-0275eoda 1 tablet by mouth once dailyAdvil Allergy Sinus oral tablet 1 tab(s), Oral, Daily, Refill(s) 0, Allergy symptoms Start Date: 12/08/24 Status: Ordered Repeat number: 1Start: 09-19-2020 take 1 tablet by mouth every six hours as neededAdvil Allergy Sinus oral tablet 1 tab(s), Oral, q6hr as needed for cold symptoms Start Date: 09/19/20 Status: OrderedStart: 49-88-6424vuvv 1 tablet by mouth every six hours as neededAdvil Allergy Sinus oral tablet 1 tab(s), Oral, q6hr as needed for cold symptoms Start Date: 09/19/20 Status: Orderedclobetasol propionate 0.0005 mg/mg topical ointment (13 sources)CorticosteroidStart: 33-37-7009Effbbduaoa 0.05 % ointment Active 1 APPLIC TOPICAL Twice daily 60 14 3 August 19, 2024 1:00am Complies with drug therapyContinuous Glucose Sensor (Dexcom G7 Sensor) [facility] ([facility])Start: 39-49-0262Pdrnlddqmd Glucose Sensor (Dexcom G7 Sensor) [facility] 10/16/2024 ActiveStart: 75-10-8756Jcunjoykuk Glucose Sensor (Dexcom G7 Sensor[place] [facility] [place] 10/16/2024 ActiveCpap (Continuous Positive Airway Pressure) unit (6 sources)Start: 44-74-7886Tujt (Continuous Positive Airway Pressure) unit Active 0 .Route 1 0 January 18, 2025 2:58pm nocturnal pulse ox dx hypoxia , only test with PAP mask on.Start: 68-78-0212Ptps (Continuous Positive Airway Pressure) unit Active 0 .Route 1 January 18, 2025 2:58pm nocturnal pulse ox dx hypoxia , only test with PAP mask on.Start: 01-18-2025 End: 83-90-9720Ovfq (Continuous Positive Airway Pressure) unit Discontinued 0 .Route 1 0 January 18, 2025 12:00am January 18, 2025 2:58pm nocturnal pulse ox dx hypoxia , only test with PAP mask on.Start: 01-18-2025 End: 59-11-6770Kjok (Continuous Positive Airway Pressure) unit Discontinued 0 .Route 1 January 18, 2025 12:00am January 18, 2025 2:58pm nocturnal pulse ox dx hypoxia , only test with PAP mask on.cyclobenzaprine hydrochloride 5 mg oral tablet (20 sources)Muscle RelaxantStart: 29-33-3823xody 1 tablet by mouth twice daily as neededCyclobenzaprine 5 mg tablet Active 5 MG PO Twice daily as needed November 23, 2024 12:00am Complies with drug therapyBenadryl (4 sources)Histamine-1 Receptor AntagonistStart: 17-13-0638dsco 1 tablet by mouth once daily at bedtimeBenadryl 1 tab, Oral, Once a day (at bedtime), Refills(s) 0, Allergy symptoms Start Date: 09/07/24 Status: Ordered Repeat number: 1Start: 39-48-8635Zfdqjtdm See Instructions, Refills(s) 0 Start Date: 09/07/24 Status: Orderedempagliflozin 25 mg oral tablet (20 sources)Sodium-Glucose Cotransporter 2 InhibitorStart: 10-02-2017 End: 48-71-4286mysn 1 tablet by mouth once dailyEmpagliflozin 25 mg tablet Active 25 MG PO Daily August 31, 2024 2:57pm dm Complies with drug therapy ergocalciferol 1.25 mg oral capsule (20 sources)Provitamin D2 CompoundStart: 65-10-1402Lpxewad D2 qWeek, Refills(s) 0, Prophylaxis Start Date: 12/08/24 Status: Ordered Repeat number: 1Start: 81-81-3470Ceyumjawgwvuam (Vitamin D2) 1,250 mcg (50,000 unit) capsule Active 15410 UNIT PO every week November 23, 2024 12:00am Complies with drug therapy Start: 11-16-2024 End: 35-90-7480cqjd 1 capsule by mouth every weekergocalciferol (Vitamin D-2) 1.25 MG (61887 UT) capsule Indications: Type 2 diabetes mellitus with h yperglycemia, with long-term current use of insulin ([facility]) Take 1 capsule (1.25 mg) by mouth 1 (one) time per week 12 capsule 1 11/16/2024 05/03/2025 Activeferrous sulfate 325 mg oral tablet (20 sources) End: 78-97-1758iplubwf sulfate 325 (65 Fe) MG tablet 1 (one) time each day at the same time 11/05/2024 DiscontinuedFLUoxetine 20 mg oral capsule (20 sources)Serotonin Reuptake InhibitorStart: 33-28-5953xuku 1 capsule by mouth once dailyFluoxetine 20 mg capsule Active 20 MG PO Daily August 31, 2024 1:00am Complies with drug therapyStart: 84-41-3725chsp 1 capsule by mouth once dailyFluoxetine 20 mg capsule Active 20 MG PO Daily August 31, 2024 1:00am Start: 10-02-2017 End: 02-57-2230fswu 1 capsule by mouth once daily at bedtimeFluoxetine 10 mg capsule Discontinued 10 MG PO Daily at bedtime October 02, 2017 1:00am August 31, 2024 2:55pm unuwxfy307 actuat fluticasone propionate 0.11 mg/actuat metered dose inhaler (20 sources)CorticosteroidStart: 41-85-9199weww 2 puff(s) by inhalation twice daily as needed for wheezingFlovent HFA 110 Aerosol = 2 puff(s), Inhalation, BID, PRN Shortness of breath or wheezing Start Date: 09/19/20 Status: Ordered Repeat number: 1Start: 10-79-7891pipu 2 puff(s) by inhalation twice daily as needed for wheezingFlovent HFA 110 Aerosol = 2 puff(s), Inhalation, BID, PRN Shortness of breath or wheezing Start Date: 09/19/20 Status: OrderedStart: 02-16-2020 End: 30-06-7991Czueuqdrlwz Propionate (Flonase Allergy Relief) 50 mcg/actuation Roper,Suspension Discontinued 1 SPRAY INTRANASAL As Directed as needed for Nasal Congestion February 16, 2020 12:00am August 190:30amFlovent HFA 110 MCG/ACT inhaler every 12 (twelve) hours Activefurosemide 20 mg oral tablet (20 sources)Loop DiureticStart: 85-94-8573zaceajgxvx (Lasix) 20 MG tablet Take 20 mg by mouth 12/08/2024 ActiveStart: 06-07-2023 End: 83-24-1111ehpt 1 tablet by mouth once dailyFurosemide 20 mg tablet Discontinued 20 MG PO Daily August 19, 2024 1:00am November 23, 2024 11:59am hydroCHLOROthiazide 25 mg oral tablet (20 sources)Thiazide DiureticStart: 56-45-9741turr 1 tablet by mouth once daily Hydrochlorothiazide 25 mg tablet Active 25 MG PO Daily August 19, 2024 1:00am Complies with drugtherapyHYDROmorphone hydrochloride 2 mg oral tablet (1 source)Opioid AgonistStart: 01-36-6952mafb 0.5-1 tablets by mouth every four hours as needed for painDilaudid 2 mg Tab See Instructions, PRN for pain, 0.5-1 tab(s) Oral q4hr, # 40 tab(s), Refills(s) 0Start Date: 09/30/20 Status: Ordered ibuprofen 200 mg oral tablet (18 sources)Nonsteroidal Anti-inflammatory DrugStart: 09-66-1024mfaw 1 tablet by mouth every six hours as needed for arthritisAdvil 200 mg oral tablet 200 mg = 1 tab(s), Oral, q6hr, PRN as needed for arthritis Start Date: 09/19/20 Status: OrderedStart: 01-06-2020 End: 58-32-7133lfjo 1 tablet by mouth four times daily as needed for pain Ibuprofen (Advil) 200 mg Tablet Discontinued 200 MG PO Four times daily as needed for Pain January 06, 2020 12:00am November 23, 2024 11:59amibuprofen 200 mg / pseudoephedrine hydrochloride 30 mg oral tablet (20 sources)alpha-Adrenergic Agonist, Nonsteroidal Anti-inflammatory Drug pseudoephedrine-Ibuprofen 30-200 MG tablet per tablet every 6 (six) hours Active insulin detemir (1 source)Insulin AnalogStart: 83-89-3060nygqgk 9 [IU] by subcutaneous injection once daily in the eveningLevemir 9 unit(s), SubCutaneous, qPM, Refills(s) 0, Blood glucose Start Date: 05/02/16 Status: Orderedinsulin isophane, human 100 unt/ml injectable suspension (20 sources)Start: 97-17-9798Rpulhnv Nph Isoph U-100 Human (Novolin N Nph U-100 Insulin) 100 unit/mL suspension Active 25 UNIT SUBCUT Twice daily January 04, 2025 12:00am Complies with drug therapyStart: 39-27-5888orijst 24 [IU] by subcutaneous injection twice dailyNovolin N 24 unit(s), SubCutaneous, BID, Refills(s) 0, Blood glucose Start Date: 12/08/24 Status: Ordered Repeat number: 1 Start: 04-69-2447Lvbsnew Nph Isoph U-100 Human (Humulin N Nph Insulin Kwikpen) 100 unit/mL (3 mL) insulin pen Ojvfiv21 UNIT SUBCUT Twice daily August 31, 2024 2:58pm Complies with drug therapyStart: 08-19-2024 End: 25-49-4828Dkvofmr Nph Isoph U-100 Human (Humulin N Nph Insulin Kwikpen) 100 unit/mL (3 mL) insulin pen Discontinued 30 UNIT SUBCUT Twice daily August 19, 2024 1:00am August 31, 2024 2:59pmNovolin R (20 sources)InsulinStart: 42-95-7022Agnjszj R sliding scale as needed with meals and bedtime, Refills(s) 0 Start Date: 12/08/24 Status: Ordered Repeat number: 1 Start: 08-18-2024 End: 25-39-1834ktciwir regular (HumuLIN R,NovoLIN R) 100 UNIT/ML injection Indications: Type 2 diabetes mellitus with hyperglycemia, with long-term current use of insulin (HCC) Inject 0.08 mL (8 Units) under the skin in the morning and 0.08 mL (8 Units) at noon and 0.08 mL (8 Units) in the evening. Inject with yoni ls. 21.6 mL 1 08/18/2024 Activelisinopril 10 mg oral tablet (20 sources)Angiotensin Converting Enzyme InhibitorStart: 09-19-2020 End: 17-36-0467usto 1 tablet by mouth once dailylisinopril 10 mg Tab 10 mg = 1 tab(s), Oral, Daily, High blood pressure Start Date: 09/19/20 Status:Ordered Start: 10-02-2017 End: 16-32-5906kunb 2 tablets by mouth once dailyLisinopril 5 mg tablet Discontinued 10 MG PO Daily October 02, 2017 1:00am November 23, 2024 12:00pm HTN Start: 86-52-0667vaat 10 mg by mouth once dailyLisinopril Active 10 MG PO Daily October 02, 2017 1:00ammeclizine hydrochloride 25 mg chewable tablet (20 sources)AntiemeticStart: 42-97-8172ccfy 2 tablets by mouth twice daily as needed for dizzinessmeclizine 25 mg oral tablet, chewable 50 mg = 2 tab(s), Oral, BID, PRN Dizziness, Refills(s) 0 Start Date: 12/08/24 Status: Ordered Repeat number: 1Start: 32-89-7769ynlx 25 mg by mouth twice dailymeclizine 25 mg, Oral, BID, Refills(s) 0 Start Date: 09/07/24 Status: OrderedStart: 08-19-2024 End: 27-99-7509zsyu 1 tablet by mouth twice daily as neededMeclizine (Antivert) 25 mg tablet,chewable Active 25 MG PO Twice daily as needed August 31, 2024 2:58pm Complies with drug therapymethocarbamol 500 mg oral tablet (2 sources)Muscle RelaxantStart: 90-22-3660vcqykpklkkjla (Robaxin) 500 MG tablet Take by mouth 03/22/2025 Activenaproxen 500 mg oral tablet (19 sources)Nonsteroidal Anti-inflammatory DrugStart: 43-49-0656mihllphp 500 mg Tab PRN Pain, Refills(s) 0 Start Date: 12/08/24 Status: Ordered Repeat number: 1 Start: 09-30-2020 End: 29-86-7682nsuz 1 tablet by mouth twice daily as needed for painnaproxen (Naprosyn) 500 MG tablet Indications: Left knee pain, unspecified chronicity Take 1 tablet(500 mg) by mouth 2 (two) times a day as needed for mild pain Take with food 60 tablet 10/29/2023 04/26/2024 ActiveNexium 20 mg Cap-DR (1 source)Start: 46-71-7082Ntngjs 20 mg Cap-DR 20 mg = 1 cap(s), Oral, Daily, Control of stomach acid Start Date: 09/19/20 Status: Orderednitroglycerin 0.4 mg sublingual tablet (20 sources)Nitrate VasodilatorStart: 12-15-6321Fwszczfpchzob 0.4 mg tablet, sublingual Active 0.4 MG SUBLINGUAL EVERY 5 MINUTES as needed for Chest Pain January 06, 2020 12:00am Complies with drug therapynitroglycerin 0.4 mg sublingual Tab (1 source)Start: 77-47-7489gxlpzmvvpqtdo 0.4 mg sublingual Tab 0.4 mg = 1 tab(s), SubLingual, q5min, PRN for chest pain Start Date: 09/19/20 Status: Orderedomeprazole 40 mg delayed release oral capsule (20 sources)Proton Pump InhibitorStart: 98-93-0098qvpp 1 capsule by mouth once Omeprazole 40 mg capsule,delayed release(DR/EC) Active 40 MG PO Once November 23, 2024 12:00am Complies with drug therapyStart: 12-13-2023 End: 24-27-2621wehv 1 capsule by mouth once dailyOmeprazole 40 mg capsule,delayed release(DR/EC) Discontinued 40 MG PO Daily August 19, 2024 1:00am August 31, 2024 2:59pmOzempic, 0.25 or 0.5 MG/DOSE, 2 MG/3ML solution pen-injector (17 sources)Start: 04-29-2023 End: 81-09-8225zpepnj 0.25 mg by subcutaneous injection every weekOzempic, 0.25 or 0.5 MG/DOSE, 2 MG/3ML solution pen-injector 0.25 mg Subcutaneous weekly for 30 days 04/29/2023 08/18/2024 Discontinued (Reorder)Start: 38-99-0761xoydnq 0.25 mg by subcutaneous injection every weekOzempic, 0.25 or 0.5 MG/DOSE, 2 MG/3ML solution pen-injector 0.25 mg Subcutaneous weekly for 30 days 04/29/2023 Active Start: 14-83-8367txzzjo 0.25 mg by subcutaneous injection every weekOzempic, 0.25 or 0.5 MG/DOSE, 2 MG/3ML solution pen-injector 0.25 mg Subcutaneous weekly for 30 days 0 04/29/2023 Activepregabalin 150 mg oral capsule (20 sources)Start: 76-02-0944snqs 1 capsule by mouth three times dailyPregabalin 150 mg capsule Active 150 MG PO Three times daily April 26, 2025 12:00am Complies with drug therapyStart: 04-08-2023 End: 65-70-3689mjuv 1 capsule by mouth twice dailyPregabalin 75 mg capsule Discontinued 75 MG PO Twice daily August 31, 2024 1:00am April 26, 2025 3:19pmRelion Novolin N (3 sources)Start: 29-96-6384yvyqfu 16 [IU] by subcutaneous injection twice daily Relion Novolin N 16 unit(s), SubCutaneous, BID, Refills(s) 0 Start Date: 06/07/23 Status: OrderedSemaglutide (20 sources)Start: 59-74-6848Caobavrysxn (Ozempic) 0.25 mg or 0.5 mg (2 mg/3 mL) pen injector Active 1 MG SUBCUT every week April 26, 2025 3:20pm for 4 weeks Complies with drug therapyStart: 11-23-2024 End: 17-52-2018Lwfxbfjnwek (Ozempic) 0.25 mg or 0.5 mg (2 mg/3 mL) pen injector Discontinued 0.5 MG SUBCUT every week November 23, 2024 12:01pm April 26, 2025 3:20pm for 4 weeksStart: 83-23-7716Uwntn: 53-62-6178Xpzsiyjiqft (Ozempic) 0.25 mg or 0.5 mg (2 mg/3 mL) pen injector Active 0.5 MG SUBCUT every week November 23, 2024 12:01pm for 4 weeksStart: 08-19-2024 End: 33-08-4568Lkurmdpwezi (Ozempic) 0.25 mg or 0.5 mg (2 mg/3 mL) pen injector Discontinued 0.25 MG SUBCUT every week August 19, 2024 1:00am November 23, 2024 12:02pm for 4 weeksStart: 27-37-6343Laujnbynmxj (Ozempic) 0.25 mg or 0.5 mg (2 mg/3 mL) pen injector Active 0.25 MG SUBCUT every week August 19, 2024 1:00am for 4 weeksStart: 33-70-4542Utxbskhwiul (Ozempic) 0.25 mg or 0.5 mg (2 mg/3 mL) pen injector Active 0.25 MG SUBCUT every week August 19, 2024 12:00am for 4 weekssemaglutide (Ozempic, 1 MG/DOSE,) 4 MG/3ML solution pen-injector (7 sources)Start: 04-26-2025 End: 07-21-7788ewmjjy 1 mg by subcutaneous injection every weeksemaglutide (Ozempic, 1 MG/DOSE,) 4 MG/3ML solution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 Times Last Modified By: Olman Burroughs RN 05/10/25 10:57:18 Case Attendance FTPM Entry 1 Entry 2 Entry 3 Case Attendee Rafi Wang DO, RN, Olman Wilson RN, Christin Biswas Role Performed Surgeon - Primary Loading Checker - Primary Scrub - Primary Time In 05/10/25 10:46:00 05/10/25 10:46:00 05/10/25 10:46:00 Time Out 05/10/25 10:57:00 05/10/25 10:57:00 05/10/25 10:57:00 Procedure TRANSFORAMINAL EPIDURAL TRANSFORAMINAL EPIDURAL TRANSFORAMINAL EPIDURAL STEROID STEROID STEROID INJECTIO(Bilateral) INJECTIO(Bilateral) INJECTIO(Bilateral) Comments Last Modified By: Olman Burroughs RN, RN, Olman White RN 05/10/25 10:57:18 M 05/10/25 10:57:18 M 05/10/25 10:57:18 Entry 4 Case Attendee [place] Cruz (R) Role Performed [employer] Floorperson Time In 05/10/25 10:46:00 Time Out 05/10/25 10:57:00 Procedure TRANSFORAMINAL EPIDURAL STEROID INJECTIO(Bilateral) Comments Last Modified By: Olman Burroughs RN 05/10/25 10:57:18 Perioperative Protocols FTPM Pre-Care Text: Implements protective measures prior to operative or invasive procedure, confirms identity before the operative or invasive procedure, verifies operative procedure, surgical site, and laterality Entry 1 Procedure(s) TRANSFORAMINAL EPIDURAL Patient Identity Birthday, ID Band STEROID Verified (select at Check, Patient INJECTIO(Bilateral) least 2): Participation Consents / H and P H&P, Surgery/Procedure Operative Site Present Verified Consent Marking Verified Surgical Site Yes Laterality Verified Yes Verified Procedure Verified Yes Correct Patient Yes Position Verified Availability Equipment, Medication, Prep Dry Yes Verified (If X-ray Applicable) PreOp Antibiotic No Time Out Olman Burroughs RN, Katie YANG, Felipe Schaeffer DO, Bradford A., Christman RT(R), [place] Time Out Complete 05/10/25 10:46:00 Outcomes Met? Yes Last Modified By: Olman Burroughs RN 05/10/25 10:47:40 Post-Care Text: The patient is free from signs and symptoms of injury caused by extraneous objects Allergy Information FTPM Pre-Care Text: Verifies allergies Entry 1 Allergies Reviewed? Yes Allergies Reviewed Self/Patient With Outcomes Met? Yes Last Modified By: Olman Burroughs RN 05/10/25 10:47:47 Post-Care Text: The patient received appropriate medication(s) safely administered during the perioperative period Surgical Procedures FTPM Entry 1 Procedure Description Procedure TRANSFORAMINAL EPIDURAL Modifiers Bilateral STEROID INJECTION Surgeon Description L5/S1 TFESI Primary Procedure Yes Primary Surgeon Rafi Wang DO Start 05/10/25 10:49:00 Stop 05/10/25 10:57:00 Anesthesia Type None Surgical Service Pain Management Wound Class 1 - Clean Last Modified By: Olman Burroughs RN 05/10/25 10:57:20 General Case Data FTPM Pre-Care Text: Classifies surgical wound, implements aseptic technique, initiates traffic control Entry 1 Case Information OR Pain Proc Room Case Level Level 2 Wound Class 1 - Clean Specialty Pain Management Preop Diagnosis M54.16 Postop Same As Preop Yes Postop Diagnosis M54.16 Outcomes Met? Yes Last Modified By: Olman Burroughs RN 05/10/25 10:47:55 Post-Care Text: The patient is free from signs and symptoms of infection Skin Assessment (Pre Procedure) FTPM Pre-Care Text: Implements protective measures to prevent skin/ tissue injury due to thermal or mechanical sources Evaluates for signs and symptoms of physical injury to skin and tissue Entry 1 Skin Integrity Intact, [place], Warm, & Skin Abnormality No Dry Outcomes Met? Yes Last Modified By: Olmna Burroughs RN 05/10/25 10:48:03 Post-Care Text: The patient is free from signs and symptoms of injury caused by extraneous objects Patient Positioning FTPM Pre-Care Text: Identifies physical alterations that require additional precautions for procedure-specific positioning, verifies presence of prosthetics or corrective devices, positions the patient, evaluates the patient for signs and symptoms of injury as a result of positioning Entry 1 Procedure TRANSFORAMINAL EPIDURAL Body Position Prone STEROID INJECTIO(Bilateral) Feet Uncrossed? Yes Left Arm Position Resting at Side Right Arm Position Resting at Side Left Leg Position Extended (more content not included)...[facility] CenterMain OR Preoperative Recordon 70-08-6144Phiq OR Preoperative RecordMain OR Preoperative Record Holding Area Document Type FTPM Summary Primary Physician: Rafi Wang DO Finalized Date/Time: 05/10/25 09:17:43 Pt. Name: BEN GONZALESOLGA LIDIA Shabazz./Sex: 1955 Female Med Rec #: [id number] Physician: Rafi Wang DO Financial #: [id number] Pt. Type: P Room/Bed: / Admit/Disch: 05/10/25 08:48:44 - Institution: Case Times Holding FTPM Pre-Care Text: Verifies consent for planned procedure, identifies individual values and wishes concerning care, includes family members in perioperative teaching Secures patient's records' belongings, and valuables, maintains patient's dignity and privacy, and maintains patient confidentiality Entry 1 In Holding 05/10/25 09:09:00 Outcomes Met? Yes Last Modified By: Khushbu Tompkins RN 05/10/25 09:09:11 Post-Care Text: The patient participates in decisions affecting his or her perioperative plan of care The patient'sright to privacy is maintained Surgery Checklist FTPM Entry 1 Patient Birthday, ID Band Procedure History and Physical, Identification: Check, Patient Verification: Surgical Consent, With Participation Patient NPO after Midnight: No Date/Time: 05/10/25 09:09:00 Results Reviewed 0800 cup of coffee Personal Items: Cataract Lens Implant, Comments: Dentures, Jewelry Personal Items Pt. wearing upper Complaints of Pain: Yes Comment: dentures and a watch. She has a history of bilateral cataracte lens implants. Pain Comment: 05/07 lower back pain Operative Site Yes Marking: Marked By: Dr. Wang Location: bilateral L5-S1 Availability Equipment, X-Ray Verified: Does Patient Smoke Yes If Yes to Smoking. 1 PPD cigarettes Cigars or Cigarettes. How much per day? Patient states Yes Comment - Adult brother -Maxwell postop adult Supervision supervision available Case Cancelled in No Holding Area see comments below for reason Last Modified By: Khushbu Tompkins RN 05/10/25 09:11:34 Finalized By: Khushbu Tompkins RN Document Signatures Signed By: Khushbu Tompkins RN 05/10/25 09:17[facility] HospitalGlucose (Bld) [Mass/Vol]on 67-42-6722Zcjxfgi Blood, MZE861 mg/dLLONE [facility] HealthcareLaboratory - Hematology and Cell countson 21-07-1200IzL8f (Bld) [Mass fraction]7.3 %[facility] HealthcareNo Panel Informationon 23-65-0402Mhfoxtjifwsoid and review of laboratory resultsAbAscension Providence Hospital HealthcareOffice Visiton 49-70-1688Sjgawt-up [id number] Virgen Harris 1955 F Date Provider Department Center 01/28/2025 271-ELTAMOIRAY, EHAB CARD [facility] Family History Problem Relation Age of Onset Heart failure Mother Heart failure Father Heart failure Paternal Grandmother Family Status - Relation Status Age at Mother Father Paternal Grandmother Level of Service:28228 [place] OFFICE/OUTPATIENT ESTABLISHED LOW MDM 20 [facility] HospitalOrders Onlyon 25-67-7451Iqhdcn [id number] Virgen Harris 1955 F Date Provider Department Center 01/27/2025 [id number], HISTORICAL CARD [facility] Family History Problem Relation Age of Onset Heart failure Mother Heart failure Father Heart failure Paternal Grandmother Family Status - Relation Status Age at Mother Father Paternal GrandmotherNOhioHealth Van Wert HospitalCHEMISTRYOrdered By: Lab ROPUser on 48-45-6264Jusojmx [Mass/Vol]217 mg/kOQrjh51 - 99 mg/dLDEACONESS HOSPITAL – [place] POC SubsectionComment on above:Result Comment: No Coverage Given Cleaned MeterPOC UsernameWOLFE, PAIGEInvalid Interpretation CodeDEACONESS HOSPITAL – [place] POC SubsectionSodium [Moles/Vol][id number] mmol/LInvalid Interpretation CodeFT POC SubsectionSodium [Moles/Vol]523465242 mmol/LInvalid Interpretation CodeFT POC SubsectionGlucose [Mass/Vol]330 mg/zWOxbe22 - 99 mg/dLDEACONESS HOSPITAL – [place] POC Subsection Comment on above:Result Comment: Cleaned MeterPOC UsernameLESMARS DELAROSATNEYInvalid Interpretation CodeDEACONESS HOSPITAL – [place] POC SubsectionSodium [Moles/Vol]315889208902 mmol/L Invalid Interpretation CodeDEACONESS HOSPITAL – [place] POC SubsectionSodium [Moles/Vol]779895753 mmol/L Invalid Interpretation CodeDEACONESS HOSPITAL – [place] POC SubsectionCHEMISTRYOrdered By: Cinthia Mccarty on 01-44-0160HhE6f (Bld) [Mass fraction]8.4 %High<=5.9%[facility] [place] ChemAutoSSCapillary Glucose POCon 14-34-5043Nzqhhye [Mass/Vol]217 mg/yJFiof85-85RyxyjeHocking Valley Community HospitalComment on above:Result Comment: No Coverage Given Cleaned MeterPerformed By: #### [id number] #### [facility] [address] [place], [place] [address]Ykqyche [Mass/Vol]330 mg/vSIsfo24-24BjqmubHocking Valley Community Hospital Comment on above:Result Comment: Cleaned MeterPerformed By: #### [id number] #### [facility] [address], [place] [address]VPPK CAPILLARY GLUCOSE POCon 02-70-2369Dcgwrqy [Mass/Vol]217 mg/zLDyev98 - 99 mg/dLLONE PEAK HOSPITAL HealthcareComment on above:No Coverage Given Cleaned Meter Interpretation and review of laboratory resultsAbnormalNOMS HealthcareOriginal Ordering Provider: DO Brice VidesBarnesville Hospital XZBH4Cea 29-57-0678Ogllbhlmxcywnk and review of laboratory resultsAbnormalNOMS Healthcare Original Ordering Provider: DO Brice Bah [facility] CenterbA1con 61-44-3940XgL5u (Bld) [Mass fraction]8.4 %High<=5.9NOMS HealthcareComment on above:Performed By: #### [id number] #### Dent [facility] [address] [place], [place] [address]Kcrof Cultureon 70-36-4174Mgnwnigh identified Cx Nom (U)15,000 colonies/ml mixed bacterial skin contaminants 2 Days PERFORMED BY: [place] [address] PATHOLOGIST PARAPROFESSIONAL INTERPRETER LI GARZON M.D.[facility] Physician GroupComment on above: Performed By: #### LIPID #### [place] [address] [place] #### CPEP #### [facility] ,Urine cultureOrdered By: Aggie Davis on 47-57-2200Kbtludmd identified Cx Nom (U)Urine cultureSalem Regional Medical CenterGlucose (Bld) [Mass/Vol]Ordered By: Lisa Koehler on 30-22-1200Ulvxuim Blood, TUY862 mg/dLGolden Valley Memorial Hospital Laboratory - Hematology and Cell countson 15-24-2281LiC6t (Bld) [Mass fraction] 6.6 %[facility] HospitalNo Panel InformationOrdered By: Lisa Koehler on 11-16-2024 [facility] HealthcareUrine Cultureon 99-03-8362Gwgtecoc identified Cx Nom (U)>100,000 colonies/ml mixed bacterial skin contaminants 2 Days PERFORMED BY: [address] [address] PATHOLOGIST PARAPROFESSIONAL INTERPRETER CURTIS CASAS M.D.[facility] Physician GroupComment on above: Performed By: #### LIPID #### [facility] [address] [place] [address] [place] #### CPEP #### [facility] ,Urine cultureOrdered By: Aggie Davis on 70-92-1462Vjlacgmr identified Cx Nom (U)Urine cultureSalem Regional Medical CenterMR ELBOW RIGHT WO IV CONTRASTon 52-83-2273ID ELBOW RIGHT WO IV CONTRASTEXAM: MR ELBOW RIGHT WO IV CONTRAST HISTORY: [...] superimposed on mild tendinosis. ELECTRONICALLY SIGNED BY: Tg SwansonmalNot AvailableComment on above:Order Comment: Surgery eye and eyelids 2021Urine Cultureon 10-30-2024 Bacteria identified Cx Nom (U)<9,000 colonies/ml mixed bacterial skin contaminants 2 Days PERFORMED BY: [place] [address] PATHOLOGIST PARAPROFESSIONAL INTERPRETER CURTIS CASAS M.D.[facility] Physician GroupComment on above: Performed By: #### CUU #### [address]Urine cultureOrdered By: Jose Nair on 10-30-2024 Bacteria identified Cx Nom (U)Urine cultureSalem Regional Medical Center Alanine aminotransferase [Enzymatic activity/volume] in Serum or PlasmaOrdered By: Ponce Silvestre on 38-95-9380CSD [Catalytic activity/Vol]Alanine aminotransferase [Enzymatic activity/volume] in Serum or Plasma7-[facility] Regional Medical CenterAlbumin [Mass/volume] in Serum or Plasma by Bromocresol green (BCG) dye binding methoOrdered By: Ponce Silvestre on 03-76-8751Esxpjek BCG dye [Mass/Vol]Albumin [Mass/volume] in Serum or Plasma by Bromocresol green (BCG) dye binding metho3.5-5.7FAshtabula General HospitalAlkaline phosphatase [Enzymatic activity/volume] in Serum or PlasmaOrdered By: Ponce Silvestre on 46-36-3886XUI [Catalytic activity/Vol]Alkaline phosphatase [Enzymatic activity/volume] in Serum or Zalsvb06-656FgjkftrjySalem Regional Medical CenterAppearance of UrineOrdered By: Dinah Sepulveda on 64-28-6294Hcwfokdpsy (U) Urine appearanceAbnormalClearSalem Regional Medical CenterAspartate aminotransferase [Enzymatic activity/volume] in Serum or PlasmaOrdered By: Ponce Silvestre on 98-67-7536VYE [Catalytic activity/Vol]Aspartate aminotransferase [Enzymatic activity/volume] in Serum or Ipzvfl42-94RluyiixpmSalem Regional Medical CenterBacteria [Presence] in Urine by AutomatedOrdered By: Dinah Sepulveda on 42-45-0076Aptooxek Auto Ql (U)Bacteria [Presence] in Urine by AutomatedNone Seen [facility] Medical CenterBilirubin Test strip Ql (U)Ordered By: Dinah Sepulveda on 56-45-2849Clsfohdab Ql (U)Bilirubin.total [Presence] in Urine by Test stripNegativeSalem Regional Medical CenterBilirubin.direct [Mass/volume] in Serum or PlasmaOrdered By: Ponce Silvestre on 82-31-8950Cldfouzvs.direct [Mass/Vol]Bilirubin.direct [Mass/volume] in Serum or Plasma0.03-0.18FAshtabula General HospitalBilirubin.total [Mass/volume] in Serum or PlasmaOrdered By: Ponce Silvestre on 89-55-6267Ijmdxjavg [Mass/Vol]Bilirubin.total [Mass/volume] in Serum or Plasma0.3-1.0Salem Regional Medical CenterC-peptide measurement Ordered By: Mathieu Naqvi on 19-91-3768V-Peptide1.4 ng/mLNormal1.1-4.4FAshtabula General HospitalComment on above:C-Peptide reference interval is for fasting patients.Performed at: [facility] [id number] Director: Kilo Masterson PhD, Phone: [phone] Comment: C-Peptide reference interval is for fasting patients. Performed at: [facility] [id number] Metal Spraying Machine Operator: Kilo Masterson PhD, Phone: [phone] PERFORMED BY: [place] [address] PATHOLOGIST PARAPROFESSIONAL INTERPRETER CURTIS CASAS M.D.Performed By: #### LIPID #### [place] [address] [place] #### CPEP #### [facility] ,Calcium [Mass/volume] in Serum or PlasmaOrdered By: Mathieu Naqvi on 10-13-2024 Calcium [Mass/Vol]Calcium [Mass/volume] in Serum or Plasma8.6-10.3FAshtabula General HospitalCarbon dioxide, total [Moles/volume] in Serum or Plasma Ordered By: Mathieu Naqvi on 15-61-2761FD2 [Moles/Vol]Carbon dioxide, total [Moles/volume] in Serum or Ktcfrk28.0-31.0[facility] Chloride [Moles/volume] in Serum or PlasmaOrdered By: Mathieu Naqvi on 53-99-3034Jkjrchzw [Moles/Vol]Chloride [Moles/volume] in Serum or Vgjqgs05-086 [facility] CenterCholesterol [Mass/volume] in Serum or Plasma Ordered By: Mathieu Naqvi on 44-57-7514Yudayylxrev [Mass/Vol]Cholesterol [Mass/volume] in Serum or DjpkscMiv214-757RpnbcssrySalem Regional Medical Center Comment on above:Chol less than 200 mg/dl low riskChol 201-239 mg/dl borderline riskChol 240 mg/dl and greater high riskCholesterol in HDL [Mass/volume] in Serum or PlasmaOrdered By: Mathieu Naqvi on 86-51-8032Ymnftexmtdj in HDL [Mass/Vol]Serum or plasma high density lipoprotein (HDL) cholesterol measurement 23-92Salem Regional Medical CenterComment on above:HDL CHOL ATP-III CLASSIFICATION Cardiovascular RiskHDL > or equal to 60 mg/dL LOWHDL < 40 mg/dL HIGHCholesterol in LDL Calc [Mass/Vol]Ordered By: Mathieu Naqvi on 10-13-2024 Cholesterol in LDL [Mass/Vol]Cholesterol in LDL [Mass/volume] in Serum or Plasma by calculation0-100Salem Regional Medical CenterComment on above:LDL ATP III CLASSIFICATIONLDL less than 100 mg/dL OptimalLDL 100-129 mg/dL Near or above zlfgrqjQOU594-021 mg/dL Borderline highLDL 160-189 mg/dL HighLDL greater than 189 mg/dL Very highCholesterol in VLDL Calc [Mass/Vol]Ordered By: Mathieu Naqvi on 29-83-7975Obrpjihsjxk in VLDL [Mass/Vol]Cholesterol in VLDL [Mass/volume] in Serum or Plasma by calculationSalem Regional Medical CenterColor Auto (U) Ordered By: Dinah Sepulveda on 17-78-8131Wrlmd (U)Color of Urine by AutoYellow [facility] Medical CenterCreatinine [Mass/volume] in Serum or Plasma Ordered By: Mathieu Naqvi on 12-20-3404Aiphzzjolb [Mass/Vol]Creatinine [Mass/volume] in Serum or PlasmaHigh0.60-1.20[facility] Creatinine [Mass/volume] in UrineOrdered By: Mathieu Naqvi on 10-13-2024 Creatinine (U) [Mass/Vol]Creatinine [Mass/volume] in UrineSalem Regional Medical CenterComment on above:No reference range establishedDipstick and Microscopicon 27-35-4820Uoybkazfgu (U)CloudyCritically abnormalClearThe [facility], [facility] Physician GroupComment on above:Order Comment: Name Collection Type:: Clean-Voided MidstreamPerformed By: #### ADDONUAPLUS, CUU, PROCRERAT #### [facility] [address] [place] [address] USABacteria,UrineNone SeenNormalNone SeenThe [facility]ly [facility], [facility] Physician GroupComment on above:Order Comment: Name Collection Type:: Clean- Voided MidstreamPerformed By: #### ADDONUAPLUS, CUU, PROCRERAT #### [facility] [address] [place] [id number] USABilirubin,UrineNegativeNormalNegativeThe [facility]ly [facility], [facility] Physician GroupComment on above:Order Comment: Name Collection Type:: Clean- Voided MidstreamPerformed By: #### ADDONUAPLUS, CUU, PROCRERAT #### [facility] [address] [place] [address] USAColor (U)Light-YellowNormalYellowThe [facility]ly [facility], [facility] Physician GroupComment on above:Order Comment: Name Collection Type:: Clean-Voided MidstreamPerformed By: #### ADDONUAPLUS, CUU, PROCRERAT #### [facility] [address] [place] [address] USAGlucose Ql (U)1000 mg/dLHighNormalThe [facility], [facility] Physician GroupComment on above:Order Comment: Name Collection Type:: Clean-Voided MidstreamPerformed By: #### ADDONUAPLUS, CUU, PROCRERAT #### [place] [address] USAHyaline Casts,UrineNoneNormal0-8The [facility], [facility] Physician GroupComment on above:Order Comment: Name Collection Type:: Clean-Voided MidstreamPerformed By: #### ADDONUAPLUS, CUU, PROCRERAT #### [place] [address] USAKetones Ql (U)NegativeNormalNegativeHca [facility] Hospital Physician GroupComment on above:Order Comment: Name Collection Type:: Clean- Voided MidstreamPerformed By: #### ADDONUAPLUS, CUU, PROCRERAT #### [place] [address] USALeukocyte esterase Test strip Ql (U)3+HighNegativeThe [facility], [facility] Physician GroupComment on above:Order Comment: Name Collection Type:: Clean-Voided MidstreamPerformed By: #### ADDONUAPLUS, CUU, PROCRERAT #### [place] [address] USAMucus,UrineRareNormalThe [facility], [facility] Physician GroupComment on above:Order Comment: Name Collection Type:: Clean-Voided MidstreamResult Comment: PERFORMED BY: [place] [address] PATHOLOGIST PARAPROFESSIONAL INTERPRETER CURTIS CASAS M.D.Performed By: #### ADDONUAPLUS, CUU, PROCRERAT #### [facility] [address] [place] [address] USANitrite,UrineNegativeNormalNegativeThe [facility], [facility] Physician GroupComment on above:Order Comment: Name Collection Type:: Clean-Voided MidstreamPerformed By: #### ADDONUAPLUS, CUU, PROCRERAT #### [facility] [address] [place] [address] USAOccult Blood,UrineNegativeNormalNegativeThe [facility], [facility] Physician GroupComment on above:Order Comment: Name Collection Type:: Clean- Voided MidstreamPerformed By: #### ADDONUAPLUS, CUU, PROCRERAT #### [facility] [address] [place] [address] USApH (U)6.5 [pH]Normal5.0-9.0The [facility] Physician Group Comment on above:Order Comment: Name Collection Type:: Clean-Voided Midstream Performed By: #### ADDONUAPLUS, CUU, PROCRERAT #### [place] [address] USAProtein,UrineNegativeNormalNegativeThe [facility], [facility] Physician GroupComment on above:Order Comment: Name Collection Type:: Clean-Voided MidstreamPerformed By: #### ADDONUAPLUS, CUU, PROCRERAT #### [facility] [address] [place] [address] USARBC,Gwdez9-3Hqxxvk3-7Col [facility], [facility] Physician GroupComment on above:Order Comment: Name Collection Type:: Clean-Voided MidstreamPerformed By: #### ADDONUAPLUS, CUU, PROCRERAT #### [facility] [address] [place] [address] USASpecificy [place],Urine1.186Ymegqc4.001-1.030The [facility], [facility] Physician GroupComment on above:Order Comment: Name Collection Type:: Clean- Voided MidstreamPerformed By: #### ADDONUAPLUS, CUU, PROCRERAT #### [facility] [address] [place] [address] USASquamous Epithelial Cell,Tvcbu76-83Lnfm9-9Zmk [facility] Physician GroupComment on above:Order Comment: Name Collection Type:: Clean- Voided MidstreamPerformed By: #### ADDONUAPLUS, CUU, PROCRERAT #### [facility] [address] [place] [address] USAUrobilinogen,UrineNormalNormalNormalThe [facility], [facility] Physician GroupComment on above:Order Comment: Name Collection Type:: Clean- Voided MidstreamPerformed By: #### ADDONUAPLUS, CUU, PROCRERAT #### [facility] [address] [place] [address] USAWBC,Vssna29-65Uyen2-8Sgb [facility], [facility] Physician GroupComment on above:Order Comment: Name Collection Type:: Clean-Voided MidstreamPerformed By: #### ADDONUAPLUS, CUU, PROCRERAT #### [facility] [address] [place] [address] USAEpithelial cells.squamous [#/area] in Urine sediment by Automated countOrdered By: Dinah Sepulveda on 60-04-3423Aaupvacnel cells.squamous Auto (Urine sed) [#/Area]Epithelial cells.squamous [#/area] in Urine sediment by Automated countHigh0-2FAshtabula General HospitalErythrocyte distribution width Auto (RBC) [Ratio]Ordered By: Dinah Sepulveda on 05-29-1040Jwcbxisxcfk distribution width (RBC) [Ratio]Erythrocyte distribution width [Ratio] by Automated count11.9-15.3FAshtabula General HospitalErythrocytes [#/area] in Urine sediment by Automated countOrdered By: Dinah Sepulveda on 48-92-8354NZE Auto (Urine sed) [#/Area]Erythrocytes [#/area] in Urine sediment by Automated count0-4FAshtabula General HospitalGlobulin Calc (S) [Mass/Vol]Ordered By: Ponce Silvestre on 67-66-9345Frluyqzh (S) [Mass/Vol]Serum globulin measurement by calculation (mass/volume)[facility] Medical CenterGlucose [Mass/volume] in Serum or PlasmaOrdered By: Mathieu Naqvi on 85-18-6567Msgyjry [Mass/Vol] Glucose [Mass/volume] in Serum or GvjiueFwqz07-558YqlcvxmwgSalem Regional Medical CenterComment on above:ADA recommended reference rangeRandom Glucose Reference Range is dependent on time and content of last meal. Glucose of more than 200 mg/dL in a nonstressed, ambulatory subject supports the diagnosisof Diabetes Mellitus.Glucose [Mass/volume] in Urine by Test stripOrdered By: Dinah Sepulveda on 30-27-4311Ekqiskn Test strip (U) [Mass/Vol]Glucose [Mass/volume] in Urine by Test stripHighNormalSalem Regional Medical CenterHematocrit Auto (Bld) [Volume fraction]Ordered By: Dinah Sepulveda on 52-28-4598Jridufntte (Bld) [Volume fraction]Hematocrit [Volume Fraction] of Blood by Automated count34.0-46.4 [facility] Medical CenterHemoglobin Test strip Ql (U)Ordered By: Dinah Sepulveda on 25-56-6413Ppttowouho Ql (U)Hemoglobin [Presence] in Urine by Test strip NegativeSalem Regional Medical CenterHemoglobin [Mass/volume] in Blood Ordered By: Dinah Sepulveda on 34-59-1887Wccyhzqxpq (Bld) [Mass/Vol]Hemoglobin [Mass/volume] in Blood11.8-15.4FAshtabula General HospitalHemogram CBC Without Diffon 68-92-0900Rgwgyaknuow distribution width (RBC) [Ratio]15.3 % Mepcgm27.9-15.3The [facility] Physician GroupComment on above:Performed By: #### LIPID #### [facility] [address] [place] [address] [place] #### CPEP #### [facility] ,Hematocrit (Bld) [Volume fraction]37.7 %Osvwpr63.0-46.4The [facility] Physician GroupComment on above:Performed By: #### LIPID #### [facility] [address] [place] [address] [place] #### CPEP #### [facility] ,Hemoglobin (Bld) [Mass/Vol]12.7 g/aHJrlstw63.8-15.4The [facility] Physician GroupComment on above:Performed By: #### LIPID #### [address] #### CPEP #### [facility] ,MCH (RBC) [Entitic mass]29.3 bnJezdpy76.7-34.3The [facility] Comment on above:Performed By: #### LIPID #### [address] #### CPEP #### [facility] ,MCV (RBC) [Entitic vol]87.1 bSUfnufz13-509Tae [facility] Physician GroupComment on above:Performed By: #### LIPID #### [address] #### CPEP #### [facility] ,Mean Corpuscular HGB Conc33.6 g/sNZvuuto39.0-35.0The [facility] Comment on above:Performed By: #### LIPID #### [address] #### CPEP #### [facility] ,Platelet mean volume (Bld) [Entitic vol]9.9 fLNormal6.3-10.7The [facility] Physician GroupComment on above:Result Comment: PERFORMED BY: [place] [address] PATHOLOGIST PARAPROFESSIONAL INTERPRETER CURTIS CASAS M.D.Performed By: #### LIPID #### [address] #### CPEP #### [facility] ,Platelets (Bld) [#/Vol]192 10*3/cQSjxhre911-670Fbs [facility] Comment on above:Performed By: #### LIPID #### [place] [address] [place] #### CPEP #### [facility] ,RBC (Bld) [#/Vol]4.33 10*6/uLNormal3.60-5.00The [facility] Comment on above:Performed By: #### LIPID #### [facility] [address] [place] [address] #### CPEP #### [facility] ,WBC (Bld) [#/Vol]8.4 10*3/uLNormal3.8-11.6The [facility] Physician GroupComment on above:Performed By: #### LIPID #### [place] [address] [place] #### CPEP #### [facility] ,Hepatic Panelon 94-31-6360Wyjdwrb [Mass/Vol]3.8 g/dLNormal3.5-5.7The [facility] Physician GroupComment on above:Performed By: #### HEPATIC #### [place] [address] USAAlbumin/Globulin [Mass ratio]1.5 {ratio}NormalThe [facility] Physician GroupComment on above:Performed By: #### HEPATIC #### [place] [address] USAALP [Catalytic activity/Vol]99 U/TBimkhz96-207Jdn [facility] Physician GroupComment on above:Result Comment: PERFORMED BY: [place] [address] PATHOLOGIST PARAPROFESSIONAL INTERPRETER CURTIS CASAS M.D.Performed By: #### HEPATIC #### [place] [address] USAALT [Catalytic activity/Vol]11 U/LNormal7-52The [facility] Physician GroupComment on above:Performed By: #### HEPATIC #### [place] [address] USAAST [Catalytic activity/Vol]14 U/OGccoce65-22Pfj [facility] Physician GroupComment on above:Performed By: #### HEPATIC #### [place] [address] USABilirubin [Mass/Vol]0.4 mg/dLNormal0.3-1.0The [facility] Physician GroupComment on above:Performed By: #### HEPATIC #### [facility] [address] [place] [address] USABilirubin,Indirect0.3 mg/dLNormalThe [facility] Physician [facility] WesleyComment on above:Performed By: #### HEPATIC #### [facility] [address] [place] [address] USABilirubin.indirect [Mass/Vol]0.10 mg/dLNormal0.03-0.18The [facility] Physician GroupComment on above:Performed By: #### HEPATIC #### [place] [address] USAGlobulin (S) [Mass/Vol]2.6 g/dLNormalThe [facility] Physician [facility] WesleyComment on above:Performed By: #### HEPATIC #### [place] [address] USAProtein [Mass/Vol]6.4 g/dLNormal6.4-8.9The [facility] Physician [facility] WesleyComment on above:Performed By: #### HEPATIC #### [place] [address] USAHyaline casts [#/area] in Urine sediment by Automated countOrdered By: Dinah Sepulveda on 84-44-7746Vagwroo casts Auto (Urine sed) [#/Area]Hyaline casts [#/area] in Urine sediment by Automated count0-8[facility] Medical CenterKetones Test strip Ql (U)Ordered By: Dinah Sepulveda on 43-20-7025Ptihabo Ql (U)Ketones [Presence] in Urine by Test stripNegative [facility] CenterLeukocyte esterase [Presence] in Urine by Test stripOrdered By: Dinah Sepulveda on 53-75-3058Yqrxafkne esterase Test strip Ql (U) Leukocyte esterase [Presence] in Urine by Test stripHighNegativeSalem Regional Medical CenterLeukocytes [#/area] in Urine sediment by Automated count Ordered By: Dinah Sepulveda on 19-61-6088LMK Auto (Urine sed) [#/Area]Leukocytes [#/area] in Urine sediment by Automated countHigh0-4FAshtabula General HospitalLeukocytes [#/volume] corrected for nucleated erythrocytes in Blood by Automated counOrdered By: Dinah Sepulveda on 72-40-0514MTP corrected for nucl RBC Auto (Bld) [#/Vol]Leukocytes [#/volume] corrected for nucleated erythrocytes in Blood by Automated coun3.8-11.6FAshtabula General HospitalLipid Panelon 26-02-7469Dsqrugtlgmp [Mass/Vol]95 mg/dFCxg489-574Mia [facility] Comment on above:Result Comment: Chol less than 200 mg/dl low risk Chol 201-239 mg/dl borderline risk Chol 240 mg/dl and greater high riskPerformed By: #### LIPID #### [facility] [address] [place] [address] #### CPEP #### [facility] ,Cholesterol in HDL [Mass/Vol]28 mg/bBIunptq43-94Lrn [facility] Comment on above:Result Comment: HDL CHOL ATP-III CLASSIFICATION Cardiovascular Risk HDL > or equal to 60 mg/dL LOW HDL < 40 mg/dL HIGHPerformed By: #### LIPID #### [facility] [address] [place] [address] [place] #### CPEP #### [facility] ,Cholesterol.total/Cholesterol in HDL [Mass ratio]3.4 {ratio}Normal<5.0The [facility] Physician GroupComment on above:Result Comment: PERFORMED BY: [place] [address] PATHOLOGIST PARAPROFESSIONAL INTERPRETER CURTIS CASAS M.D.Performed By: #### LIPID #### [facility] [address] [place] [address] [place] #### CPEP #### [facility] ,LDL Cholesterol,Fkffkhzjab93 mg/dLNormal0-100The [facility] Comment on above:Result Comment: LDL ATP III CLASSIFICATION LDL less than 100 mg/dL Optimal LDL 100-129 mg/dL Near or above optimal LDL 130-159 mg/dL Borderline high LDL 160-189 mg/dL High LDL greater than 189 mg/dL Very highPerformed By: #### LIPID #### [facility] [address] [place] [address] [place] #### CPEP #### [facility] ,Triglyceride w/Trsxra50 mg/dLNormal0-149The [facility] Physician GroupComment on above:Result Comment: TRIG ATP III CLASSIFICATION TRIG less than 150 mg/dL Normal TRIG 150-199 mg/dL Borderline high TRIG 200-500 mg/dL High TRIG greater than 500 mg/dL Very high Standard traceable to the Center for Disease Conrtrol and Prevention (CDC) test method.Performed By: #### LIPID #### [place] [address] [place] #### CPEP #### [facility] ,VLDL PDMKASUCSGG57 mg/dLNormalThe [facility] Physician GroupComment on above: Performed By: #### LIPID #### [place] [address] [place] #### CPEP #### [facility] ,MCH Auto (RBC) [Entitic mass]Ordered By: Dinah Sepulveda on 74-32-5935BOS (RBC) [Entitic mass]MCH [Entitic mass] by Automated count24.7-34.3FOhioHealth O'Bleness HospitalHC Auto (RBC) [Mass/Vol]Ordered By: Dinah Sepulveda on 10-13-2024 MCHC (RBC) [Mass/Vol]MCHC [Mass/volume] by Automated count32.0-35.0[facility] CenterMCV Auto (RBC) [Entitic vol]Ordered By: Dinah Sepulveda on 26-40-1645XHN (RBC) [Entitic vol]MCV [Entitic volume] by Automated ywjzu93-535 [facility] CenterMagnesiumon 44-07-6996Myubifigp [Mass/Vol]2.1 mg/dLNormal1.9-2.7The [facility] Physician GroupComment on above:Performed By: #### LIPID #### [facility] [address] [place] [address] [place] #### CPEP #### [facility] ,Magnesium [Mass/volume] in Serum or PlasmaOrdered By: Dinah Sepulveda on 10-13-2024 Magnesium [Mass/Vol]Magnesium [Mass/volume] in Serum or Plasma1.9-2.7FAshtabula General HospitalMicroAlb Creat Ratio,Uon 71-23-2183Pufvnjp DL <= 20 mg/L (U) [Mass/Vol]0.7 mg/dLNormal0.0-1.8The [facility] Physician GroupComment on above:Performed By: #### LIPID #### [facility] [address] [place] [address] [place] #### CPEP #### [facility] ,Microalbumin/Creatinine Ratio9.2 mg/gNormal0.0-30.0The [facility] Physician GroupComment on above:Result Comment: 30-300 mg/g indicates an increased risk for diabetic nephropathy. Greater than 300 mg/g is consistent with clinical nephropathy. (Am. J. Kidney Disease 1995, 25:107) PERFORMED BY: [place] [address] PATHOLOGIST PARAPROFESSIONAL INTERPRETER CURTIS CASAS M.D.Performed By: #### LIPID #### [facility] [address] [place] [address] [place] #### CPEP #### [facility] ,Microalbumin [Mass/volume] in UrineOrdered By: Mathieu Naqvi on 10-13-2024 Albumin DL <= 20 mg/L (U) [Mass/Vol]Microalbumin [Mass/volume] in Urine0.0-1.8 [facility] CenterMucus [Presence] in Urine by AutomatedOrdered By: Dinah Sepulveda on 82-10-9571Qiene Auto Ql (U)Mucus [Presence] in Urine by AutomatedSalem Regional Medical CenterNitrite Test strip Ql (U)Ordered By: Dinah Sepulveda on 59-19-5854Tsdmkla Ql (U)Nitrite [Presence] in Urine by Test strip NegativeSalem Regional Medical CenterNo Panel InformationOrdered By: Mathieu Naqvi on 71-88-7625Inmuwpupx GFR (CKD-EPI)34.741 mL/MinSalem Regional Medical CenterPharmacy Creatinine Clearance (ChemN/[facility] HospitalParathyrin.intact [Mass/volume] in Serum or PlasmaOrdered By: Dinah Sepulveda on 94-01-2067Wqjauiuguz.intact [Mass/Vol]Parathyrin.intact [Mass/volume] in Serum or CnbsceIbcu78-62WzqnzpsdbSalem Regional Medical CenterParathyroid Hormone Intacton 67-37-9460Mgnmhyuzvap Hormone Qxsvki475.1 pg/sCUzjp86-76Qzy [facility] Physician GroupComment on above:Result Comment: PERFORMED BY: [place] [address] PATHOLOGIST PARAPROFESSIONAL INTERPRETER CURTIS CASAS M.D.Performed By: #### LIPID #### [place] [address] [place] #### CPEP #### [facility] ,Phosphate [Mass/volume] in Serum or PlasmaOrdered By: Mathieu Naqvi on 79-49-6610Irdxtfous [Mass/Vol]Phosphate [Mass/volume] in Serum or Plasma2.5-4.5 [facility] Medical CenterPlatelet mean volume Auto (Bld) [Entitic vol] Ordered By: Dinah Sepulveda on 00-21-0788Mtqtafsw mean volume (Bld) [Entitic vol] Platelet mean volume [Entitic volume] in Blood by Automated count6.3-10.7 [facility] Medical CenterPlatelets Auto (Bld) [#/Vol]Ordered By: Dinah Sepulveda on 94-50-0938Pojolzlhq (Bld) [#/Vol]Platelets [#/volume] in Blood by Automated tahod702-805TpmbhhusjSalem Regional Medical CenterPotassium [Moles/volume] in Serum or PlasmaOrdered By: Mathieu Naqvi on 22-36-8349Tcruftxxo [Moles/Vol] Potassium [Moles/volume] in Serum or Plasma3.5-5.1FAshtabula General HospitalProtein Creat Ratio Ur Randomon 21-23-5343Xuswisxrfv, Urine (Random)76.00 mg/dLNormPhysicians Regional Medical Center [facility] Col[facility] Boulevard Physician [facility] WesleyComment on above:Result Comment: No reference range establishedPerformed By: #### MARKYONCURTIS, CUU, PROCRERAT #### [facility] [address] [place] [address] USAPerformed By: #### LIPID #### [facility] [address] [place] [address] #### CPEP #### [facility] ,Protein (U) [Mass/Vol]17 mg/dLHigh0-9[facility] Physician [facility] WesleyComment on above:Performed By: #### PATRICE WATSONU, PROCRERAT #### [address]Urine Protein/Creatinine Wceiv404 mg/g{Cre}High0-200The [facility] Physician [facility] WesleyComment on above:Result Comment: PERFORMED BY: [place] [address] PATHOLOGIST PARAPROFESSIONAL INTERPRETER CURTIS CASAS M.D.Performed By: #### WALTER, PATRICEU, PROCRERAT #### [facility] [address] [place] [address] USAProtein Test strip (U) [Mass/Vol]Ordered By: Dinah Sepulveda on 09-49-0909Oanysbc (U) [Mass/Vol]Protein [Mass/volume] in Urine by Test strip NegativeSalem Regional Medical CenterProtein [Mass/volume] in Serum or PlasmaOrdered By: Ponce Silvestre on 06-42-7393Rkaxhdv [Mass/Vol]Protein [Mass/volume] in Serum or Plasma6.4-8.9[facility] CenterProtein [Mass/volume] in UrineOrdered By: Dinah Sepulveda on 65-47-7284Srlbvqv (U) [Mass/Vol]Protein [Mass/volume] in UrineHigh0-9[facility] RBC Auto (Bld) [#/Vol]Ordered By: Dinah Sepulveda on 00-39-6917VAA (Bld) [#/Vol] Erythrocytes [#/volume] in Blood by Automated count3.60-5.00[facility] Medical CenterRenal Function Panelon 00-05-2225Ndihxnq [Mass/Vol]3.8 g/dLNormal 3.5-5.7The [facility] Physician GroupComment on above:Performed By: #### [id number], RENAL #### [facility] [address] [place] [address] USAAnion gap [Moles/Vol]11.8 mmol/LNormal6.0-15.0The [facility] Physician GroupComment on above:Performed By: #### [id number], RENAL #### [facility] [address] [place] [address] USACalcium [Mass/Vol]8.8 mg/dLNormal8.6-10.3The [facility] Physician GroupComment on above:Performed By: #### [id number], RENAL #### [facility] [address] [place] [address] USAChloride [Moles/Vol]106 mmol/CPgfgzl15-602Nes [facility] Physician GroupComment on above:Performed By: #### [id number], RENAL #### [place] [address] USACO2 [Moles/Vol]27.1 mmol/LDktmkc35.0-31.0The [facility] Physician GroupComment on above:Performed By: #### [id number], RENAL #### [facility] [address] [place] [id number] USACreatinine [Mass/Vol]1.59 mg/dLHigh0.60-1.20The [facility] Physician GroupComment on above:Performed By: #### [id number], RENAL #### [facility] [address] [place] [id number] USAEstimated GFR34.741 mL/MinNormalThe [facility] Physician GroupComment on above:Performed By: #### [id number], RENAL #### [facility] [address] [place] [address] USAGlucose [Mass/Vol]108 mg/bHIwgo40-276Rxt [facility] Physician GroupComment on above:Result Comment: Random Glucose Reference Range is dependent on time and content of last meal. Glucose of more than 200 mg/dL in a nonstressed, ambulatory subject supports the diagnosis of Diabetes Mellitus. ADA recommended reference rangePerformed By: #### [id number], RENAL #### [facility] [address] [place] [address] USAPhosphate [Mass/Vol]3.4 mg/dLNormal2.5-4.5The [facility] Physician GroupComment on above:Performed By: #### [id number], RENAL #### [place] [address] USAPotassium [Moles/Vol]3.9 mmol/LNormal3.5-5.1The [facility] Physician GroupComment on above:Performed By: #### [id number], RENAL #### [place] [address] USASodium [Moles/Vol]141 mmol/UGdiedl927-202Cvr [facility] Physician GroupComment on above:Performed By: #### [id number], RENAL #### [place] [address] USAUrea nitrogen [Mass/Vol]24 mg/dLNormal7-25The [facility] Physician GroupComment on above:Performed By: #### [id number], RENAL #### [place] [address] USASerum or plasma albumin/globulin mass ratioOrdered By: Ponce Silvestre on 25-05-7142Loersii/Globulin [Mass ratio]Serum or plasma albumin/globulin mass ratioMartin Memorial Hospitalerum or plasma anion gap determinationOrdered By: Mathieu Naqvi on 74-38-4458Ojkko gap [Moles/Vol]Serum or plasma anion gap determination6.0-15.0Martin Memorial Hospitalerum or plasma non-glucuronidated bilirubin measurement (mass/volume)Ordered By: Ponce Silvestre on 38-68-7114Gnfwckfil.indirect [Mass/Vol]Serum or plasma non-glucuronidated bilirubin measurement (mass/volume) Martin Memorial Hospitalerum or plasma total cholesterol/high density lipoprotein (HDL) cholesterol mass ratOrdered By: Mathieu Naqvi on 10-13-2024 Cholesterol.total/Cholesterol in HDL [Mass ratio]Serum or plasma total cholesterol/high density lipoprotein (HDL) cholesterol mass rat<5.0Martin Memorial Hospitalodium [Moles/volume] in Serum or PlasmaOrdered By: Mathieu Naqvi on 05-06-4733Lxtlhj [Moles/Vol]Sodium [Moles/volume] in Serum or Plasma 136-145Martin Memorial Hospitalpecific gravity Test strip (U) [Rel density]Ordered By: Dinah Sepulveda on 47-71-4885Tgimdzbr gravity (U) [Rel density] Specific gravity of Urine by Test strip1.001-1.030[facility] Medical CenterTriglyceride [Mass/volume] in Serum or PlasmaOrdered By: Mathieu Naqvi on 30-46-2066Gxnrlxxkyzsb [Mass/Vol]Triglyceride [Mass/volume] in Serum or Plasma 0-149[facility] CenterComment on above:TRIG ATP III CLASSIFICATIONTRIG less than 150 mg/dL NormalTRIG 150-199 mg/dL Borderline highTRIG 200-500 mg/dL High TRIG greater than 500 mg/dL Very highStandard traceable to the Center for Disease Conrtrol and Prevention (CDC) test method. Urate [Mass/volume] in Serum or PlasmaOrdered By: Dinah Sepulveda on 47-08-7543Dpbly [Mass/Vol]Urate [Mass/volume] in Serum or PlasmaHigh2.3-6.6FAshtabula General HospitalUrea nitrogen [Mass/volume] in Serum or PlasmaOrdered By: Mathieu Naqvi on 34-60-1057Amxj nitrogen [Mass/Vol]Urea nitrogen [Mass/volume] in Serum or Plasma7-25[facility] Medical CenterUric Acidon 58-38-7085Oabhd [Mass/Vol]7.7 mg/dLHigh2.3-6.6The [facility] Physician GroupComment on above: Result Comment: PERFORMED BY: [facility] [address] [place] [address] PATHOLOGIST PARAPROFESSIONAL INTERPRETER CURTIS CASAS M.D.Performed By: #### LIPID #### [facility] [address] [place] [address] [place] #### CPEP #### [facility] ,Urine Cultureon 89-19-8848Lzadrdpd identified Cx Nom (U)>100,000 colonies/ml mixed bacterial skin contaminants 2 Days PERFORMED BY: [place] [address] PATHOLOGIST PARAPROFESSIONAL INTERPRETER CURTIS CASAS M.D.NormalThe [facility] Physician GroupComment on above: Performed By: #### LIPID #### [place] [address] [place] #### CPEP #### [facility] ,Urine cultureOrdered By: Dinah Sepulveda on 51-80-7312Xtcvtytq identified Cx Nom (U)Urine cultureSalem Regional Medical CenterUrine microalbumin/creatinine mass ratioOrdered By: Mathieu Naqvi on 28-35-9398Zxmrkvk/Creatinine DL <= 20 mg/L (U) [Mass ratio]Urine microalbumin/creatinine mass ratio0.0-30.0[facility] CenterComment on above:30-300 mg/g indicates an increased risk for diabetic nephropathy. Greater than 300 mg/g is consistent with clinical nephropathy. (Am. J. Kidney Disease 1995, 25:107)Urine protein/creatinine ratio Ordered By: Dinah Sepulveda on 42-43-6154Pudgoxe/Creatinine (U) [Ratio]Urine protein/creatinine ratioHigh0-200[facility] Medical CenterUrobilinogen Test strip (U) [Mass/Vol]Ordered By: Dinah Sepulveda on 55-83-0478Tksjsehrhbsp (U) [Mass/Vol]Urobilinogen [Mass/volume] in Urine by Test stripNormalSalem Regional Medical CenterVitamin D 25 Hydroxy Totalon 72-61-3963Lazgvjg D 25 Hydroxy Total15.0 ng/nSNbf23-530Npo [facility] Physician GroupComment on above: Result Comment: VITAMIN D STATUS 25(OH)VITAMIN D RANGE (ng/mL) Deficient <20 Insufficient 20 to <30 Sufficient 30 to 100 Reference: Luann Almanza, Merline FERRER, et al. Evaluation,treatment, and prevention of vitamin D deficiency; an Endocrine Society clinical practice guideline. JCEM. 2010; 96(7):1911-. PERFORMED BY: [place] [address] PATHOLOGIST PARAPROFESSIONAL INTERPRETER CURTIS CASAS M.D.Performed By: #### [id number], RENAL #### [place] [address] USAVitamin D+Metabolites [Mass/volume] in Serum or Plasma Ordered By: Mathieu Naqvi on 66-58-2757Cwdnhwz D+Metabolites [Mass/Vol]Vitamin D+Metabolites [Mass/volume] in Serum or FsvckmYdo83-260DnjpyvmqjSalem Regional Medical CenterComment on above:VITAMIN D STATUS 25(OH)VITAMIN D RANGE (ng/mL) Deficient <20 Insufficient 20 to <28Edummejcoy37 to 100Reference: Luann Almanza, Merline FERRER, et al. Evaluation,treatment, and prevention of vitamin D deficiency; an Endocrine Society clinical practice guideline. JCEM. 2010; 96(7):1911-30.pH Test strip (U)Ordered By: Dinah Sepulveda on 10-13-2024 pH (U)pH of Urine by Test strip5.0-9.0[facility] head/brain wo/w conon 42-58-8597BE head/brain wo/w [facility] [place] [address] [place], [place] [id number] MRI Report Signed Patient: Virgen Gonzales MR# : [id number] : 1955 Acct:[id number] Age/Sex: 69 / F ADM Date: 09/14/24 Loc: [facility] Room: Type: [facility] Attending Dr: Olman De La Rosa DO [...] Jacinto Gallagher M.D.09/14/2024 5:21 PM Dictation Location: [place] [address] Transcribed By: [facility] 09/14/24 1721 Dictated By: Jacinto Gallagher II, MD 09/14/24 1714 Signed By: 09/14/[address] [place], [place] [address] Physician GroupMignetic resonance imaging reportOrdered By: Jacinto Gallagher on [id number] reportBELLEVUE HOSPITAL [facility] [place] [address] [place] [address] MRI Report Signed Patient: Virgen Gonzales MR#: [id number] : 1955 Acct:[id number] Age/Sex: 69 / F ADM Date: 5 [facility]: Type: [facility] Attending Dr: Olman De La Rosa DO [...] Jacinto Gallagher M.D.09/14/2024 5:21 PM Dictation Location: [place] [address] Transcribed By: [facility] 09/14/24 172 Dictated By: Jacinto Gallagher II, MD 09/14/24 171 Signed By: 09/14/24 172 [facility] Work Phone: X-ray reportOrdered By: Jose Horn on 09-14-2024 Study reportB[facility]UE [facility] [place] [address] [place] [address] XRay Report Signed Patient: Virgen Gonzales MR#: [id number] : 1955 Acct:[id number] Age/Sex: 69 / F ADM Date: 5 Loc: ICXD Room: Type: [facility] CLI Attending Dr: Aretha Valadez APRN Copies to: [...] Jose Horn M.D.09/14/2024 8:40 PM Dictation Location: [place] [address] Transcribed By: [facility] 09/14/242039 Dictated By: Jose Horn DO 09/14/242034 Signed By: 09/14/242039 [facility] tib[facility] fibula RT 2V*on 34-39-9367IP tibia fibula RT 2V*[facility] [place] [address] [place] [address] XRay Report Signed Patient: Virgen Gonzales MR# : [id number] : 1955 Acct:[id number] Age/Sex: 69 / F ADM Date: 09/14/24 Loc: ICXD Room: Type: [facility] Attending Dr: Aretha Valadez RETIREMENT SPECIALIST Copies to: Aretha Valadez APRN Ordering Provider: [...] Jose Horn M.D.09/14/2024 8:40 PM Dictation Location: [facility] Transcribed By: [facility] 09/14/242039 Dictated By: Jose Horn DO 09/14/242034 Signed By: 09/14/242039[facility] Physician GroupAmbulatory Visit Summaryon 49-30-9660Bobqzqkiqc Visit SummaryAmbulatory Visit Summary VIRGEN GONZALES :1955 Visit Date:09/07/2024 [...] finger, right carpel tunnel, right knee arthroscopyx2. Discharge Vitals Heart Rate (Peripheral) 70 Respiratory Rate 18 Blood Pressure 112/74 Height 155 cm Height 61 in Weight 93.3 kg Weight 205.691 lb BMI 38.83 What to do next Scheduled Follow-Up Appointments Saturday 11:30 AM EDT With: Kang BOSS MD Where: [facility] [address] [place] [address]- You Need to Schedule the Following Appointments Follow Up with Kang BOSS MD, URL When: In 6 months Comments: w/TOMEKA Where: [facility] [address], [place] [address]- Medications What How Much When Instructions Unchanged albuterol (Albuterol (Eqv-Proventil HFA) 90 mcg/ inh inhalation aerosol) See instructionsContact prescribing physician if questions or concerns Unchanged [...] See instructions Contact prescribing physician if questions orconcerns Unchanged empagliflozin (Jardiance 25 mg oral tablet) 1 Tablets By Mouth Once a day (in the morning) Contact prescribing physician if questions or concerns Unchanged esomeprazole (Nexium 20 mg Cap-) 1 Capsules By Mouth Every day Contact [...] times a day Contact prescribing physician if questionsor concerns Unchanged semaglutide (Ozempic 2 mg/ 3 [...] (Nausea) penicillins (Difficulty lobo (more content not included)...[facility] HospitalAmbulatory Visit SummaryAmbulatory Visit Summary VIRGEN GONZALES :1955 Visit Date:09/07/2024 [...] finger, right carpel tunnel, right knee arthroscopyx2. Discharge Vitals Heart Rate (Peripheral) 70 Respiratory Rate 18 Blood Pressure 112/74 Height 155 cm Height 61 in Weight 93.3 kg Weight 205.691 lb BMI 38.83 What to do next Scheduled Follow-Up Appointments Saturday 11:30 AM EDT With: Kang BOSS MD Where: [facility] [address] [place] [address]- You Need to Schedule the Following Appointments Follow Up with Kang BOSS MD, URL When: In 6 months Comments: w/TOMEKA Where: [facility] [address], [place] [address]- Medications What How Much When Instructions Unchanged albuterol (Albuterol (Eqv-Proventil HFA) 90 mcg/ inh inhalation aerosol) See instructionsContact prescribing physician if questions or concerns Unchanged [...] See instructions Contact prescribing physician if questions orconcerns Unchanged empagliflozin (Jardiance 25 mg oral tablet) [...] times a day Contact prescribing physician if questionsor concerns Unchanged semaglutide (Ozempic 2 mg/ 3 [...] (Nausea) penicillins (Difficulty lobo (more content not included)...[facility] HospitalEM 2 Extremitieson 54-97-6927Vuzzfrmej ulnar neuropathies, axonal loss in type, non localizable, mild in degree electrically bilaterallyAudrain Medical Center 2 ExtremitiesOrdered By: Olman De La Rosa on 59-12-4443[facility] Work Phone: nVC 9-10 Nerveson 78-02-5486ABRAGolden Valley Memorial HospitalBilateral ulnar neuropathies, axonal loss in type, non localizable, mild in degree electrically bilaterally Carpal tunnel syndrome on the left which is minimalAsheville Specialty HospitalNo Panel Informationon 96-10-4793FhmdwraDAR Delong 08/31/2024 8:01 PM M Inj/Asp: R elbow on 08/31/2024 10:53 AM Indications: pain Details: 25 G needle Medications: 1 mL betamethasone acetate-betamethasone sodium phosphate 6 (3-3) MG/ML Consent was given by the patient. [facility] HospitalXR Elbow - right 3 Viewson 45-88-7096Tyjtfla Result: Three views of the right elbow, AP/lateral/oblique, taken today and saved to the permanent medical record. Joint spaces are preserved, no swelling in the olecranon bursa, no spurring at the olecranon, no fat pad sign, no bony lesionsAsheville Specialty HospitalRadiology Study observation (narrative)[facility] HealthcareOffice Visiton 12-26-2341Xtvbhy-up [id number] Virgen Harris 1955 F Date Provider Department Center 08/20/2024 Nely-OPNCE SILVESTRE CARD [facility] Family History Problem Relation Age of Onset Heart failure Mother Heart failure Father Heart failure Paternal Grandmother Family Status - Relation Status Age at Mother Father Paternal Grandmother Level of Service:13130 GA OFFICE/OUTPATIENT NEW LOW MDM 30 MINUTESNormal [facility] SystemC Urineon 63-28-7471Utbrkjyi identified Cx Nom (U)Microbiology PROCEDURE: Urine Culture [R1] SOURCE: U Random BODY SITE: COLLECTED DATE/TIME: 07/07/2024 19:41 EST RECEIVED DATE/TIME: 07/07/2024 20:37 EST START DATE/TIME: 07/07/2024 20:37 EST FREE TEXT SOURCE: Kelly Smith PA-C, PA-C, Kelly Arango FINAL REPORTS Final Report [] Verified Date/Time: 07/09/2024 14:17 EST 25,000 cfu/ml Mixed skin contaminants Performing Locations R1: This test was performed at: [facility], [address] [place] [address], [id number]- , , GdtrbgTdjmneCleveland Clinic Hillcrest HospitalComment on above:Performed By: #### [id number] #### [facility] [address] [place] [address]IS Note-Physicianon 78-63-2851DT Note-PhysicianED Note-Physician Basic Information Time Seen: Luis HUNG, Kelly Biswas. 07/07/2024 18:19 Chief Complaint c/o neck, left lower back and head pain after syncopal episode at work around 1745. pt unsure of reason to passing out. hx of diabetes, on insulin. pt takes ASA daily History of Present Illness This patient presents emergency department after syncopal episode at work. Patient works at [employer] states all of a sudden she was [...] production, wheezing, hemoptysis, shortness of breath, dyspnea onexertion Gastrointestinal: Denies abdominal pain, unintentional weight loss, difficulty swallowing, indigestion, bloating, cramping, loss of appetite, nausea, vomiting, diarrhea, constipation, hematochezia, melena Genitourinary: Denies any incontinence of urine, dysuria, hematuria, nocturia, polyuria, hesitancy,frequency, urgency, burning Musculoskeletal: Denies joint pain, morning [...] cervical spine injury, lumbar spine injury, hip injury,dehydration, electrolyte imbalance, acute lower urinary tract infection, ACS cardiac arrhythmia, ICH, subdural hematoma MDM Data External documents reviewed: Not applicable My EKG interpretation: Noted in chart if applicable My CT interpretation: Noted in chart if applicable My X-ray interpretation: Noted in chart if applicable My Ultrasound interpretation: Not applicable Decision rules/scores evaluated: Noted in chart if appl (more content not included)...[facility] HospitalComment on above:Result Comment: Electronically Signed By: Kelly Smith PA-C\.br\Date and Time Signed: 07/08/24 02:10 EST\.br\Electronically Co-Signed By: Ean Azevedo M.D.\.br\Date and Time Co-Signed: 07/09/24 07:05 ESTABO/Rh History Checkon 63-01-7734URE/Rh History CheckPatient discharged priorCleveland Clinic Hillcrest HospitalComment on above:Performed By: #### [id number] #### [facility] [address] [place], [place] [address]JC Abdomen/Pelvis w/ Contraston 01-62-9357ID Abdomen/Pelvis w/ ContrastExam Date/Time: 07/07/2024 19:17 EST Reason for Exam: [...] Contrast: Isovue 300 Contrast amount in ml's: 130NoMadison HealthCT Chest w/ Contraston 86-49-5621AL Chest w/ ContrastExam Date/Time: 07/07/2024 19:17 EST Reason for Exam: [...] Contrast: Isovue 300 Contrast amount in ml's: 130NormalFisher [facility] Orth[facility] InstituteCT Head or Brain w/o Contraston 96-17-6012VL Head or Brain w/o ContrastExam Date/Time: 07/07/2024 19:10 EST Reason for Exam: [...] Imer Montague MD Transcribed by: JOSH Technologist: MARVINOhioHealth O'Bleness HospitalCT Spine Cervical w/o Contraston 70-93-6858OH Spine Cervical w/o ContrastExam Date/Time: 07/07/2024 19:10 EST Reason for Exam: [...] Home Lockwood MD Transcribed by: JOSH Technologist: MARVINOhioHealth O'Bleness HospitalO/Tanmay 33-61-2268UDT/RhPositiveInvalid Interpretation [facility] Comment on above:Performed By: #### [id number] #### [facility] [address] [place], [place] [address]SAINdt 57-97-0637JWOH Gel InterpNegativeNormalHocking Valley Community HospitalComment on above:Performed By: #### [id number] #### [facility] [address] [place], [place] [address]W hCG Qualon 33-02-2944Lrab HCG ( test) QlNegative NormalHocking Valley Community HospitalComment on above:Performed By: #### [id number] #### [facility] [address] [place], [place] [address]TFTPZ BANKOrdered By: Calli Greenwood on 52-99-7485YSU/Rh InterpPositiveInvalid Interpretation CodeDEACONESS HOSPITAL – [place] BB SubsectionABSC Gel Interp Negative (07/07/24 6:48 PM)NormalDEACONESS HOSPITAL – [place]LA[place] BB SubsectionBMPon 47-16-1559Skpbq gap [Moles/Vol] 11 mmol/LNormal6-16[facility] HospitalComment on above:Performed By: #### [id number] #### [facility] [address] [place], [place] [address]Kjldnbi [Mass/Vol]9.1 mg/dLNormal8.9-11.1FTriHealthComment on above:Performed By: #### [id number] #### [facility] [address] [place], [place] [address]Pafopleh [Moles/Vol]104 mmol/NGlgtgp244-724XqnihlHocking Valley Community HospitalComment on above:Performed By: #### [id number] #### [facility] [address] [place], [place] [address]IR9 [Moles/Vol]26 mmol/NRgcfxr76-87NnzoirHocking Valley Community Hospital Comment on above:Performed By: #### [id number] #### [facility] [address] [place], [place] [address]Hnjvbougpb [Mass/Vol]1.8 mg/dLHigh0.5-1.3FTriHealthComment on above:Performed By: #### [id number] #### [facility] [address] [place], [place] [address]Bndkjhk [Mass/Vol]154 mg/uOOftaof49-785BqjnkbHocking Valley Community HospitalComment on above:Performed By: #### [id number] #### [facility] [address] [place], [place] [address]Bvgvtlclh [Moles/Vol]3.6 mmol/LNormal3.5-5.3FTriHealthComment on above:Performed By: #### [id number] #### [facility] [address] [place], [place] [address]Grptxi [Moles/Vol]137 mmol/VInmucl066-162FhtoieHocking Valley Community HospitalComment on above:Performed By: #### [id number] #### [facility] [address] [place], [place] [address]Uiyg nitrogen [Mass/Vol]23 mg/dLHigh5-21[facility] Community HospitalComment on above:Performed By: #### [id number] #### [facility] [address] [place], [place] [address]Vwiw nitrogen/Creatinine [Mass ratio]13 No ZxzsrLevgxf43-95 [facility] Community HospitalComment on above:Performed By: #### [id number] #### [facility] [address] [place], [place] [address]Wmzdz Bank ID#on [id number]#[id number] Interpretation CodeHocking Valley Community HospitalComment on above:Performed By: #### [id number] #### [facility] [address] [place], [place] [address]YQM w/ Auto Diffon 70-25-4510Qduopagna/100 WBC (Bld)0.6 %Normal 0.0-2.0[facility] Community HospitalComment on above:Result Comment: Collection date/time has been modified to: 18:23:00. Previous collection d ate/time: 18:45:00.Performed By: #### [id number] #### [facility] [address] [place], [place] [address]Nigmkbomx/Leukocytes Auto (Bld) [Pure # fraction]0.1 E9/LNormal 0.0-0.2FTriHealthComment on above:Result Comment: Collection date/time has been modified to: 18:23:00. Previous collection d ate/time: 18:45:00.Performed By: #### [id number] #### [facility] [address] [place] [address]Lvixuvajoum (Bld) [#/Vol]0.3 E9/LNormal0.0-0.5FTriHealthComment on above:Result Comment: Collection date/time has been modified to: 18:23:00. Previous collection date/time: 18:45:00.Performed By: #### [id number] #### [facility] [address] [place] [address]Godxntyhsud/100 WBC (Bld)3.1 %Normal0.0-8.0[facility] Community HospitalComment on above:Result Comment: Collection date/time has been modified to: 18:23:00. Previous collection date/time: 18:45:00. Performed By: #### [id number] #### [facility] [address] [place] [address]Kzfnqhihosp distribution width (RBC) [Ratio]15.1 %High10.9-14.2 [facility] Community HospitalComment on above:Result Comment: Collection date/time has been modified to: 18:23:00. Previous collection date/time: 18:45:00.Performed By: #### [id number] #### [facility] [address] [place] [address]Bpkmbtqdce (Bld) [Volume fraction]38.3 %Sguajb94.0-46.0[facility] Community HospitalComment on above:Result Comment: Collection date/time has been modified to: 18:23:00. Previous collection date/time: 18:45:00.Performed By: #### [id number] #### [facility] [address] [place], [place] [address]Ivfgaktnjm (Bld) [Mass/Vol]12.7 g/zTUppkck30.0-16.0[facility] HospitalComment on above:Result Comment: Collection date/time has been modified to: 18:23:00. Previous collection date/time: 18:45:00.Performed By: #### [id number] #### [facility] [address] [place], [place] [address]Phmhhkscpsc (Bld) [#/Vol]2.4 E9/LNormal1.0-4.0[facility] HospitalComment on above:Result Comment: Collection date/time has been modified to: 18:23:00. Previous collection date/time: 18:45:00.Performed By: #### [id number] #### [facility] [address] [place] [address]Xzyjdtwiaui/100 WBC (Bld)26.6 %Sjnbea83.0-50.0[facility] HospitalComment on above:Result Comment: Collection date/time has been modified to: 18:23:00. Previous collection date/time: 18:45:00.Performed By: #### [id number] #### [facility] [address] [place] [address]RHJ (RBC) [Entitic mass]29.9 dgAsgdgd73.0-34.0[facility] HospitalComment on above:Result Comment: Collection date/time has been modified to: 18:23:00. Previous collection date/time: 18:45:00.Performed By: #### [id number] #### [facility] [address] [place] [address]HABH (RBC) [Mass/Vol]33.1 g/cUQcthna78.4-36.0[facility] HospitalComment on above:Result Comment: Collection date/time has been modified to: 18:23:00. Previous collection date/time: 18:45:00.Performed By: #### [id number] #### [facility] [address] [place] [address]WHI (RBC) [Entitic vol]90.2 jRBqcunu44.0-100.0[facility] HospitalComment on above:Result Comment: Collection date/time has been modified to: 18:23:00. Previous collection date/time: 18:45:00.Performed By: #### [id number] #### [facility] [address] [place] [address]Nfzgzadwz (Bld) [#/Vol]0.5 E9/LNormal0.2-1.0[facility] HospitalComment on above:Result Comment: Collection date/time has been modified to: 18:23:00. Previous collection date/time: 18:45:00.Performed By: #### [id number] #### [facility] [address] [place] [address]Ftvbnxlwole (Bld) [#/Vol]5.8 E9/LNormal2.0-7.5FTriHealthComment on above:Result Comment: Collection date/time has been modified to: 18:23:00. Previous collection date/time: 18:45:00.Performed By: #### [id number] #### [facility] [address] [place], [place] [address]Hkozbtblkav/100 WBC (Bld)64.2 %Xpqkqb60.0-75.0[facility] HospitalComment on above:Result Comment: Collection date/time has been modified to: 18:23:00. Previous collection date/time: 18:45:00.Performed By: #### [id number] #### [facility] [address] [place] [address]Xiiwnuru mean volume (Bld) [Entitic vol]10.1 fLNormal6.4-10.8 [facility] HospitalComment on above:Result Comment: Collection date/time has been modified to: 18:23:00. Previous collection date/time: 18:45:00.Performed By: #### [id number] #### [facility] [address] [place], [place] [address]Xhefnbnxu (Bld) [#/Vol]183.0 E9/HNvhzyr205.0-500.0[facility] HospitalComment on above:Result Comment: Collection date/time has been modified to: 18:23:00. Previous collection date/time: 18:45:00.Performed By: #### [id number] #### [facility] [address] [place] [address]CXX (Bld) [#/Vol]4.2 E12/LLow4.3-5.9[facility] Comment on above:Result Comment: Collection date/time has been modified to: 18:23:00. Previous collection date/time: 18:45:00.Performed By: #### [id number] #### [facility] [address] [place] [address]SHH corrected for nucl RBC Auto (Bld) [#/Vol]9.1 E9/LNormal 4.0-11.0[facility] HospitalComment on above:Result Comment: Collection date/time has been modified to: 18:23:00. Previous collection d ate/time: 18:45:00.Performed By: #### [id number] #### [facility] [address] [place], [place] [address]Exybfkqrw/100 WBC (Bld)0.6 %Normal0.0-2.0[facility] HospitalComment on above:Performed By: #### [id number] #### [facility] [address] [place] [address] [place] [address]Kyypieneo/Leukocytes Auto (Bld) [Pure # fraction]0.1 E9/LNormal 0.0-0.2FTriHealthComment on above:Performed By: #### [id number] #### [facility] [address] [place] [address]Tmgyrkmwnpx (Bld) [#/Vol]0.3 E9/LNormal0.0-0.5FTriHealthComment on above:Performed By: #### [id number] #### [facility] [address] [place] [address]Kfsuntajsxd/100 WBC (Bld)3.1 %Normal0.0-8.0[facility] HospitalComment on above:Performed By: #### [id number] #### [facility] [address] [place] [address]Ifbtvpkgxri distribution width (RBC) [Ratio]15.1 %High10.9-14.2 [facility] HospitalComment on above:Performed By: #### [id number] #### [facility] [address] [place] [address]Chvqovxjgf (Bld) [Volume fraction]38.3 %Qdlmlq73.0-46.0[facility] HospitalComment on above:Performed By: #### [id number] #### [facility] [address] [place] [address]Ezlnpjzyvd (Bld) [Mass/Vol]12.7 g/bFInfxau76.0-16.0[facility] HospitalComment on above:Performed By: #### [id number] #### [facility] [address] [place] [address]Fdjxbysaqsm (Bld) [#/Vol]2.4 E9/LNormal1.0-4.0[facility] HospitalComment on above:Performed By: #### [id number] #### [facility] [address] [place] [address]Uzoslxctcrc/100 WBC (Bld)26.6 %Ffqjeq55.0-50.0[facility] HospitalComment on above:Performed By: #### [id number] #### [facility] [address] [place] [address]VKW (RBC) [Entitic mass]29.9 prCuncch32.0-34.0[facility] HospitalComment on above:Performed By: #### [id number] #### [facility] [address] [place] [address]LGVJ (RBC) [Mass/Vol]33.1 g/rSIooscx31.4-36.0[facility] HospitalComment on above:Performed By: #### [id number] #### [facility] [address] [place] [address]GGP (RBC) [Entitic vol]90.2 dCClkaur41.0-100.0[facility] HospitalComment on above:Performed By: #### [id number] #### [facility] [address] [place] [address]Ovlwmwglb (Bld) [#/Vol]0.5 E9/LNormal0.2-1.0[facility] HospitalComment on above:Performed By: #### [id number] #### [facility] [address] [place] [address]Efirdrprmci (Bld) [#/Vol]5.8 E9/LNormal2.0-7.5FTriHealthComment on above:Performed By: #### [id number] #### [facility] [address] [place] [address]Eeefpnrjteh/100 WBC (Bld)64.2 %Afckxu13.0-75.0[facility] HospitalComment on above:Performed By: #### [id number] #### [facility] [address] [place] [address]Zurbhndl mean volume (Bld) [Entitic vol]10.1 fLNormal6.4-10.8 [facility] HospitalComment on above:Performed By: #### [id number] #### [facility] [address] [place], [place] [address]Fnsjwahxo (Bld) [#/Vol]183.0 E9/DDlfnnc759.0-500.0[facility] HospitalComment on above:Performed By: #### [id number] #### [facility] [address] [place] [address]WXO (Bld) [#/Vol]4.2 E12/LLow4.3-5.9[facility] Comment on above:Performed By: #### [id number] #### [facility] [address] [place] [address]EHE corrected for nucl RBC Auto (Bld) [#/Vol]9.1 E9/LNormal 4.0-11.0[facility] HospitalComment on above:Performed By: #### [id number] #### [facility] [address] [place] [address]NPXWPECKHGznoqun By: SYSTEM SYSTEM on 34-49-4659Iglktksaauej Screen method >1000 ng/mL Ql (U)NEGATIVE 7 (07/07/24 7:41 PM)NormalNEGATIVERemisol ChemComment on above:Interpretive Data: Negative Cutoff: <1000 ng/mLBarbiturates Screen Ql (U)NEGATIVE 8 (07/07/24 7:41 PM)NormalNEGATIVERemisol ChemComment on above:Interpretive Data: Negative Cutoff: <200 ng/mLBenzodiazepines Ql (U)NEGATIVE 1 (07/07/24 7:41 PM)NormalNEGATIVERemisol ChemComment on above:Interpretive Data: Negative Cutoff: <200 ng/mLCannabinoids Screen Ql (U)NEGATIVE 6 (07/07/24 7:41 PM)NormalNEGATIVERemisol ChemComment on above:Interpretive Data: Negative Cutoff: <50 ng/mLCocaine Ql (U)NEGATIVE 2 (07/07/24 7:41 PM)NormalNEGATIVERemisol ChemComment on above:Interpretive Data: Negative Cutoff: <300 ng/mLOpiates Screen Ql (U)NEGATIVE 4 (07/07/24 7:41 PM)NormalNEGATIVERemisol ChemComment on above:Interpretive Data: Negative Cutoff: <300 ng/mLPhencyclidine Screen method >25 ng/mL Ql (U)NEGATIVE 5 (07/07/24 7:41 PM)NormalNEGATIVERemisol ChemComment on above:Interpretive Data: Negative Cutoff: <25 ng/mL These drug screen results are to be used for medical (i.e., treatment) purposes only. Unconfirmed drug screening results must not be used for non-medical purposes (e.g., employment testing, legal testing).U FentanylNEGATIVE 33 (07/07/24 7:41 PM)NormalNEGATIVERemisol ChemComment on above:Interpretive Data: Negative Cutoff: <5 ng/mL These drug screen results are to be used for medical (i.e., treatment) purposes only. Unconfirmed drug screening results must not be used for non-medical purposes (e.g., employment testing, legal testing).Albumin [Mass/Vol]3.9 g/dL Normal3.3 - 5.0 gm/dLRemisol ChemAlbumin/Globulin [Mass ratio]1.4 {ratio}Normal 1.1 - 2.2Remisol ChemALP [Catalytic activity/Vol]112 [iU]/dHigh21 - 98 Int._Unit/LRemisol ChemALT No additional P-5'-P [Catalytic activity/Vol]11 [iU]/dNormal6 - 46 Int._Unit/LRemisol ChemAnion gap [Moles/Vol]11 mmol/LNormal6 - 16 mEq/LRemisol ChemAST [Catalytic activity/Vol]13 [iU]/dNormal5 - 43 Int._Unit/LRemisol ChemBilirubin [Mass/Vol]0.4 mg/dLNormal0.0 - 1.1 mg/dLRemisol ChemBilirubin.direct [Mass/Vol]0.1 mg/dLNormal0.0 - 0.4 mg/dLRemisol Chem Bilirubin.indirect [Mass or moles/Vol]0.3 mg/dLNormal0.1 - 0.9 mg/dLRemisol Chem Calcium [Mass/Vol]9.1 mg/dLNormal8.9 - 11.1 mg/dLRemisol ChemChloride [Moles/Vol]104 mmol/XXcxalt329 - 111 mmol/LRemisol ChemCO2 [Moles/Vol]26 mmol/L Ipibvn86 - 31 mmol/LRemisol ChemCreatinine [Mass/Vol]1.8 mg/dLHigh0.5 - 1.3 mg/dLRemisol HtowvRKG73 mL/min/1.73 m2Low>=59mL/min/1.73 m9Rjnhdqe ChemEthanol Lvlmg/dLNormal<=11mg/dLRemisol ChemGlobulin (S) [Mass/Vol]2.8 g/dLNormal1.4 - 4.0 gm/dLRemisol ChemGlucose [Mass/Vol]154 mg/yXXcofnf69 - 199 mg/dLRemisol Chem Lactic Acid Lvl0.9 mmol/LNormal0.5 - 2.2 mmol/LRemisol ChemLipase [Catalytic activity/Vol]22 U/PRkfkpr59 - 58 unit/LRemisol ChemMagnesium [Mass/Vol]2.2 mg/dL Normal1.3 - 2.4 mg/dLRemisol ChemMyoglobin [Mass/Vol]128 ng/mLHigh<=69ng/mL Remisol ChemPotassium [Moles/Vol]3.6 mmol/LNormal3.5 - 5.3 mmol/LRemisol Chem Protein [Mass/Vol]6.7 g/dLNormal6.0 - 7.8 gm/dLRemisol ChemSodium [Moles/Vol]137 mmol/SSzpusz333 - 145 mmol/LRemisol ChemTotal CK149 [iU]/vEpgfdq03 - 261 Int._Unit/LRemisol ChemTroponin HS10.70 pg/pGQnkedm03.10 - 27.10 pg/mLRemisol ChemComment on above:Interpretive Data: The 95% CI (Confidence Interval) PPV (Positive Predictive Value) for myocardial infarction in females is 38 pg/mL, in males 51 pg/mL. The results should be used in conjunction withclinical conditions of myocardial infarction. (Access High Sensitivity Troponin I Instructions For Use, Lalito Torri, February 2018)Urea nitrogen [Mass/Vol]23 mg/dLHigh5 - 21 mg/dLRemisol ChemUrea nitrogen/Creatinine [Mass ratio]13 mg/qjCyxkrd18 - 20Remisol ChemCKon 07-07-2024 Total CK149 Int._Unit/TNyeoao08-370Knsrxs [facility] Orthopaedic InstituteComment on above: Performed By: #### [id number] #### Dent [facility] [address] [place], [place] [address]HZNMYTZUBTHTjzjddr By: Gerri Chavze on 31-79-8953pFLH Coag (PPP) [Time]31.1 jWzqvba84.1 - 36.5 second(s)[facility] Auto CoagComment on above: Interpretive Data: Parameter 15 days - 4 weeks 1 [...] the same coagulation reagent and instrumentation as [facility]. Currently there are no coagulation studies available worldwide for children to 14 days, andno normal ranges. Heparin therapeutic range (represented by Anti-Factor Xa activity of 0.2 - 0.4 U/mL) corresponds to PTT of 56.6 - 109.0 sec.INR Coag (PPP) [Relative time]0.92 {INR}Invalid Interpretation CodeDEACONESS HOSPITAL – [place] Auto CoagComment on above:Interpretive Data: INR results are specifically intended to assess patients stabilized on long-term Anticoagulation therapy suggested INR s Less Intensive Anticoagulation 2.0 3.0 Conventional Range 3.0 4.5PT Coag (PPP) [Time]10.3 sNormal9.4 - 12.5 second(s) [facility] Auto CoagComment on above:Interpretive Data: 15 days - 4 weeks 1 - [...] the same coagulation reagent and instrumentation as [facility]. Currently there are no coagulation studies available worldwide for children to 14 days, andno normal ranges.ED Clinical Summaryon [id number] Clinical SummaryED Clinical Summary [place] [address] ED Clinical Summary Person Information Name: VIRGEN GONZALES [facility] Age: 68 Years : 1955 Sex: Female Language: Puerto Rican PCP: AGGIE DAVIS CNP Marital Status: Visit [...] 07/07/2024 22:29:17 07/07/2024 22:29:17 07/07/2024 22:29:17 ADDRESS: [address] [place], [place] [address] [phone] PHYS DOC NOTES: MEDICAL INFORMATION: Prescriptions Given: New Medications [facility], [address] [place] [id number], [phone] cephalexin (cephalexin 500 mg Cap) 1 Capsules [...] a day as needed Pain. with food. Refills:0. naproxen (naproxen 500 mg Tab) 1 Tablets [...] 4 hours as needed for pain. g56.02. Refills:0. varenicline (Chantix 1 mg Tab) 1 Tablets By Mouth 2 times a day. PATIENT EDUCATION INFORMATION: Instructions: Urinary Tract Infection, Adult, Uach-mj-Hnpi; Syncope, Adult, Xksa-ze-Njph; Head Injury, Adult, Xowj-dz-Litq; Contusion, Hdry-dq-Kyaq Follow up: With: Address: When: AGGIE DAVIS [address] [place] [phone] [facility] (more content not included)...[facility] Patient Summaryon [id number] Patient SummaryED Patient Summary [address] [address] Patient Discharge Instructions Person Information Name: VIRGEN GONZALES Age: 68 Years Arrival Date: 07/07/2024 18:16:48 Discharge Diagnosis: 1:Contusion of occipital region of scalp; 2:Syncope and collapse; 3:Acute lower urinary tract infection Primary Care Physician: AGGIE DAVIS CNP Provider Information Primary Provider: Tiny Fallon DO Advanced Last Trimmer:None The exam and treatment you received in the Emergency Department were for an urgent problem and are not intended as complete care. It is important that you follow up with a doctor, nurse practitioner,or physician???s water quality assistant for ongoing care. If your symptoms become worse or you do not improve asexpected and you are unable to reach your usual health care provider, you should return to the Emergency Department. We are available 24 hours a day. VIRGEN GONZALES Ramiro has been given the following list of patient education materials, prescriptions and follow-up instructions: Follow-up Instructions: With: Address: When: AGGIE SUSAN [address] [facility] [place] [phone] Business (1) In 3 days 07/10/2024 In the event that this physician does not participate in your insurance network, please consult with your insurance company to find a nearby participating provider. Patient Education Materials: Urinary Tract Infection, Adult, Aqhv-xg-Mece; Syncope, Adult, Qmpo-zu-Yenn; Head Injury, Adult, Ucqh-xo-Wfzt; Contusion, Urzw-ek-Oqhe A MESSAGE TO ALL PATIENTS REGARDING OPIOIDS PRESCRIPTION OPIOIDS: WHAT YOU NEED TO KNOW Prescription opioids can be used to help relieve reaojfkv-fd-betiqt pain and are often prescribed following a [...] guidance from the Food and Drug Administration (www.fda.gov/Drugs/ResourcesFo (more content not included)...NormalHocking Valley Community HospitalEthanolon 05-33-4925Niphojr Lvl<10Normal<=11[facility] HospitalComment on above:Performed By: #### [id number] #### Filipe [facility] [address] [place] [address]XTCJNWFDOKCxhwkmj By: SYSTEM SYSTEM on 08-42-2751Wheihhmnp/100 WBC (Bld)0.6 %Normal0.0 - 2.0 %Remisol HemeComment on above:Result Comment: Collection date/time has been modified to: 18:23:00. Previous collection date/time: 18:45:00.Basophils/Leukocytes Auto (Bld) [Pure # fraction]0.1 E9/LNormal0.0 - 0.2 E9/LRemisol HemeComment on above:Result Comment: Collection date/time has been modified to: 18:23:00. Previous collection date/time: 18:45:00.Eosinophils (Bld) [#/Vol]0.3 E9/LNormal 0.0 - 0.5 E9/LRemisol HemeComment on above:Result Comment: Collection date/time has been modified to: 18:23:00. Previous collection date/time: 18:45:00.Eosinophils/100 WBC (Bld)3.1 %Normal0.0 - 8.0 %Remisol Heme Comment on above:Result Comment: Collection date/time has been modified to: 18:23:00. Previous collection date/time: 18:45:00. Erythrocyte distribution width (RBC) [Ratio]15.1 %High10.9 - 14.2 %Remisol Heme Comment on above:Result Comment: Collection date/time has been modified to: 18:23:00. Previous collection date/time: 18:45:00.Hematocrit (Bld) [Volume fraction]38.3 %Pdtgna55.0 - 46.0 %Remisol HemeComment on above: Result Comment: Collection date/time has been modified to: 18:23:00. Previous collection date/time: 18:45:00.Hemoglobin (Bld) [Mass/Vol] 12.7 g/xAThngov34.0 - 16.0 gm/dLRemisol HemeComment on above:Result Comment: Collection date/time has been modified to: 18:23:00. Previous collection date/time: 18:45:00.Lymphocytes (Bld) [#/Vol]2.4 E9/LNormal 1.0 - 4.0 E9/LRemisol HemeComment on above:Result Comment: Collection date/time has been modified to: 18:23:00. Previous collection date/time: 18:45:00.Lymphocytes/100 WBC (Bld)26.6 %Mmljze50.0 - 50.0 %Remisol HemeComment on above:Result Comment: Collection date/time has been modified to: 18:23:00. Previous collection date/time: 18:45:00.MCH (RBC) [Entitic mass]29.9 kaBqnzww93.0 - 34.0 pgRemisol HemeComment on above:Result Comment: Collection date/time has been modified to: 18:23:00. Previous collection date/time: 18:45:00.MCHC (RBC) [Mass/Vol]33.1 g/dLNormal 31.4 - 36.0 gm/dLRemisol HemeComment on above:Result Comment: Collection date/time has been modified to: 18:23:00. Previous collection d ate/time: 18:45:00.MCV (RBC) [Entitic vol]90.2 vYWgghbb68.0 - 100.0 fL Remisol HemeComment on above:Result Comment: Collection date/time has been modified to: 18:23:00. Previous collection date/time: 18:45:00.Monocytes (Bld) [#/Vol]0.5 E9/LNormal0.2 - 1.0 E9/LRemisol HemeComment on above:Result Comment: Collection date/time has been modified to: 18:23:00. Previous collection date/time: 18:45:00.Monocytes/100 WBC (Bld)5.5 %Normal4.0 - 14.0 %Remisol HemeComment on above:Result Comment: Collection date/time has been modified to: 18:23:00. Previous collection date/time: 18:45:00.Neutrophils (Bld) [#/Vol]5.8 E9/LNormal 2.0 - 7.5 E9/LRemisol HemeComment on above:Result Comment: Collection date/time has been modified to: 18:23:00. Previous collection date/time: 18:45:00.Neutrophils/100 WBC (Bld)64.2 %Ydvuod94.0 - 75.0 %Remisol HemeComment on above:Result Comment: Collection date/time has been modified to: 18:23:00. Previous collection date/time: 18:45:00.Platelet mean volume (Bld) [Entitic vol]10.1 fLNormal6.4 - 10.8 fLRemisol HemeComment on above:Result Comment: Collection date/time has been modified to: 18:23:00. Previous collection date/time: 18:45:00.Platelets (Bld) [#/Vol]183.0 E9/WXcsruj111.0 - 500.0 E9/LRemisol HemeComment on above:Result Comment: Collection date/time has been modified to: 18:23:00. Previous collection date/time: 18:45:00.RBC (Bld) [#/Vol]4.2 E12/LLow4.3 - 5.9 E12/LRemisol HemeComment on above:Result Comment: Collection date/time has been modified to: 18:23:00. Previous collection date/time: 18:45:00.WBC corrected for nucl RBC Auto (Bld) [#/Vol]9.1 E9/LNormal4.0 - 11.0 E9/LRemisol HemeComment on above:Result Comment: Collection date/time has been modified to: 18:23:00. Previous collection date/time: 18:45:00.Hep Func Panelon 62-85-8179Nsrcdwb [Mass/Vol]3.9 g/dLNormal3.3-5.0 [facility] HospitalComment on above:Performed By: #### [id number] #### [facility] [address] [place], [place] [address]Xywciyb/Globulin (S) [Mass conc ratio]1.2Xnykuo9.1-2.2FTriHealthComment on above:Performed By: #### [id number] #### [facility] [address] [place], [place] [address]DCT [Catalytic activity/Vol]112 Int._Unit/XAagz74-02GnlzxuHocking Valley Community HospitalComment on above:Performed By: #### [id number] #### [facility] [address] [place], [place] [address]UOA No additional P-5'-P [Catalytic activity/Vol]11 Int._Unit/L Normal6-46[facility] Community HospitalComment on above:Performed By: #### [id number] #### [facility] [address] [place], [place] [address]CTD [Catalytic activity/Vol]13 Int._Unit/LNormal5-43[facility] HospitalComment on above:Performed By: #### [id number] #### [facility] [address] [place], [place] [address]Qghrpirlk [Mass/Vol]0.4 mg/dLNormal0.0-1.1FTriHealthComment on above:Performed By: #### [id number] #### [facility] [address] [place], [place] [address]Ghpktfbts.direct [Mass/Vol]0.1 mg/dLNormal0.0-0.4FTriHealthComment on above:Performed By: #### [id number] #### [facility] [address] [place], [place] [address]Qwsdlzjxp.indirect [Mass or moles/Vol]0.3 mg/dLNormal0.1-0.9 [facility] HospitalComment on above:Performed By: #### [id number] #### [facility] [address] [place] [address]Ooevdpvf (S) [Mass/Vol]2.8 g/dLNormal1.4-4.0[facility] HospitalComment on above:Performed By: #### [id number] #### [facility] [address] [place], [place] [address]Iadmhuj [Mass/Vol]6.7 g/dLNormal6.0-7.8[facility] HospitalComment on above:Performed By: #### [id number] #### [facility] [address] [place], [place] [address]Wivwre Acidon 85-00-3262Slgneb Acid Lvl0.9 mmol/LNormal0.5-2.2 [facility] HospitalComment on above:Performed By: #### [id number] #### [facility] [address] [place], [place] [address]Knlfuc Levelon 62-58-2503Fgbjqu [Catalytic activity/Vol]22 U/L Ordlxn50-19ZdribiHocking Valley Community HospitalComment on above:Performed By: #### [id number] #### [facility] [address] [place], [place] [address]Lekukueajme 17-63-2666Hnlswczqs [Mass/Vol]2.2 mg/dLNormal 1.3-2.4FTriHealthComment on above:Performed By: #### [id number] #### [facility] [address] [place], [place] [address]Pvqqbhhxlpo 25-92-3482Mccrohjge [Mass/Vol]128 ng/mLHigh<=69 [facility] HospitalComment on above:Performed By: #### [id number] #### [facility] [address] [place], [place] [address]RD & PTTon 01-21-6760cBGJ Coag (PPP) [Time]31.1 second(s)Normal 25.1-36.5FTriHealthComment on above:Result Comment: Parameter 15 days - 4 weeks [...] the same coagulation reagent and instrumentation as [facility]. Currently there are no coagulation studies available worldwide for children to 14 days, andno normal ranges. Heparin therapeutic range (represented by Anti-Factor Xa activity of 0.2 - 0.4 U/mL) corresponds to PTT of 56.6 - 109.0 sec.Performed By: #### [id number] #### Filipe [facility] [address] [place], [place] [address]AXF Coag (PPP) [Relative time]0.92 {INR}Invalid Interpretation CodeFishJohns Hopkins Bayview Medical CenterComment on above:Result Comment: INR results are specifically intended to assess patients stabilized on long-term Anticoagulation therapy suggested INR???s ???Less Intensive Anticoagulation??? 2.0 ??? 3.0 Conventional Range 3.0 ??? 4.5Performed By: #### [id number] #### Filipe [facility] [address] [place], [place] [address]KG Coag (PPP) [Time]10.3 second(s)Normal9.4-12.5Fisher [facility] Orthopaedic InstituteComment on above:Result Comment: 15 days - 4 weeks 1 - 5 months 6 -11 months 1-5 years 6-10 years 11 -17 years Mean: 11.2 (9.5-12.6) Mean: 11.0 (9.7-12.8) Mean: 11.0 (9.8-13.0) Mean: 11.3 (9.9-13.4) Mean: 11.7 (10.0-14.6) Mean: 11.8 (10.0 - 14.1) Pediatric Reference ranges were obtained from a study by Jerry Sesser, et al. prepared from 1437 samples obtained at 7 different centers using the same coagulation reagent and instrumentation as [facility]. Currently there are no coagulation studies available worldwide for children to 14 days, andno normal ranges.Performed By: #### [id number] #### Filipe [facility] [address] [place], [place] [address]BGATGHQSVwckxtv By: Gerri Chavez on 10-01-7076Ztqj HCG ( test) QlNegative (07/07/24 6:23 PM)NormalDEACONESS [facility]ITAL [facility] [place] Man SeroTroponinon 62-03-2189Pfksrshh HS10.70 pg/mL Urgfng06.10-27.10[facility] HospitalComment on above:Result Comment: The 95% CI (Confidence Interval) PPV (Positive Predictive Value) for myocardial infarction in females is 38 pg/mL, in males 51 pg/mL. The results should be used in conjunction with clinical conditions of myocardial infarction. (Access High Sensitivity Troponin I Instructions For Use, Lalito Torri, February 2018)Performed By: #### [id number] #### Dent [facility] [address] [place], [place] [address]E Drug Screenon 56-14-2057Hkszwbikspdm Screen method >1000 ng/mL Ql (U)NegativeNormalNEGATIVEHocking Valley Community HospitalComment on above: Result Comment: Negative Cutoff: <1000 ng/mLPerformed By: #### [id number] #### Filipe [facility] [address] [place], [place] [address]Ozdrutzfqbhx Screen Ql (U)NegativeNormalNEGATIVEHocking Valley Community HospitalComment on above:Result Comment: Negative Cutoff: <200 ng/mL Performed By: #### [id number] #### Dent [facility] [address] [place], [place] [address]Hrvcbuqeouznpng Ql (U)NegativeNormalNEGATIVEHocking Valley Community HospitalComment on above:Result Comment: Negative Cutoff: <200 ng/mL Performed By: #### [id number] #### Dent [facility] [address] [place], [place] [address]Klbuortekttm Screen Ql (U)NegativeNormalNEGATIVEHocking Valley Community HospitalComment on above:Result Comment: Negative Cutoff: <50 ng/mL Performed By: #### [id number] #### [facility] [address] [place] [address]Rarqbar Ql (U)NegativeNormalNEGATIVEHocking Valley Community Hospital Comment on above:Result Comment: Negative Cutoff: <300 ng/mLPerformed By: #### [id number] #### [facility] [address] [place] [address]Jcdgiwu Screen Ql (U)NegativeNormalNEGATIVEHocking Valley Community HospitalComment on above:Result Comment: Negative Cutoff: <300 ng/mLPerformed By: #### [id number] #### [facility] [address] [place] [address]Fbvqzwfjjbkdx Screen method >25 ng/mL Ql (U)NegativeNormal [facility] HospitalComment on above:Result Comment: Negative Cutoff: <25 ng/mL These drug screen results are to be used for medical (i.e., treatment) purposes only. Unconfirmed drug screening results must not be used for non-medical purposes (e.g., employment testing, legal testing).Performed By: #### [id number] #### [facility] [address] [place] [address] FentanylNegativeNormalNEGATIVEHocking Valley Community Hospital Comment on above:Result Comment: Negative Cutoff: <5 ng/mL These drug screen results are to be used for medical (i.e., treatment) purposes only. Unconfirmed drug screening results must not be used for non-medical purposes (e.g., employment testing, legal testing).Performed By: #### [id number] #### [facility] [address] [place] [address]GF with Cult Rflxon 44-98-5722Wpsipgpx Auto Ql (U)1+ /HPF AbnormalTraceHocking Valley Community HospitalComment on above:Performed By: #### [id number] #### [facility] [address] [place] [address]Xgwjjqvuh Ql (U)NegativeNormalNegativeHocking Valley Community HospitalComment on above:Performed By: #### [id number] #### [facility] [address] [place], [place] [address]Caahtwu (U)Ex.TurbidAbnormalClearFTriHealth Comment on above:Performed By: #### [id number] #### [facility] [address] [place], [place] [address]Tcapd (U)Light-OrangeAbnormalYellowHocking Valley Community Hospital Comment on above:Result Comment: Microscopic readings are only performed on those samples that meet specific criteria set forth by [facility].Performed By: #### [id number] #### [facility] [address] [place] [address]Ygwznygetw cells.squamous Auto (Urine sed) [#/Area]>10Invalid Interpretation CodeHocking Valley Community HospitalComment on above:Performed By: #### [id number] #### [facility] [address] [place], [place] [address]Idxtwjc Ql (U)4+ mg/dLAbnormalNegativeHocking Valley Community HospitalComment on above:Performed By: #### [id number] #### [facility] [address] [place] [address]Swqjozrugh Auto test strip (U) [Mass/Vol]1+ mg/dLAbnormal NegativeHocking Valley Community HospitalComment on above:Performed By: #### [id number] #### [facility] [address] [place], [place] [address]Jsfmqso Auto test strip Ql (U)NegativeNormalNegativeHocking Valley Community HospitalComment on above:Performed By: #### [id number] #### [facility] [address] [place], [place] [address]Jpglcgowi esterase Auto test strip Ql (U)500 Isidoro/uLAbnormal [facility] CompanyComment on above:Performed By: #### [id number] #### [facility] [address] [place] [address]Qaiqk Auto Ql (U)NegativeNormalNegativeHocking Valley Community HospitalComment on above:Performed By: #### [id number] #### [facility] [address] [place] [address]Kyyjknc Auto test strip Ql (U)NegativeNormalNegativeHocking Valley Community HospitalComment on above:Performed By: #### [id number] #### [facility] [address] [place] [address]xK (U)6.5 [pH]Invalid Interpretation Code5.0-9.0[facility] HospitalComment on above:Performed By: #### [id number] #### [facility] [address] [place] [address]Hdzdxml Ql (U)TraceAbnormalNegPremier Health Comment on above:Performed By: #### [id number] #### [facility] [address] [place] [address]XHC Ql (U)80-62Jhxbqzjn2-1GgguuaTriHealthComment on above:Performed By: #### [id number] #### [facility] [address] [place] [address]Fawqtzpj gravity (U) [Rel density]1.019Invalid Interpretation Code1.005-1.030[facility] HospitalComment on above:Performed By: #### [id number] #### [facility] [address] [place] [address]Cmrskrkumaww (U) [Mass/Vol]NegativeNormalNegPremier HealthComment on above:Performed By: #### [id number] #### [facility] [address] [place] [address]BEZ Auto (Urine sed) [#/Area]86-01Kbftboop0-0YtzyxtTriHealthComment on above:Performed By: #### [id number] #### [facility] [address] [place] [address]Ewkds.budding Computer assisted Ql (U)TraceAbnormRegional Medical CenterComment on above:Performed By: #### [id number] #### [facility] [address] [place], [place] [address]Armc of Urine collection methodClean CatchNoMadison HealthComment on above:Performed By: #### [id number] #### [facility] [address] [place], [place] [address]RLAQEUVHBRAqzovzt By: SYSTEM SYSTEM on 52-48-1065Qrkdvfbb Auto Ql (U)1+ /HPFInvalid Interpretation CodeTrace/HPFDEACONESS HOSPITAL – [place] UA Auto SSBilirubin Ql (U) NegativeNormalNegativemg/dLDEACONESS HOSPITAL [facility] [place] Auto SSClarity (U)Ex.Turbid *ABN* (07/07/24 7:41 PM)Invalid Interpretation CodeClearFNORTHWEST C[facility] U[facility] Auto SSColor (U)Light- [place] 3 *ABN* (07/07/24 7:41 PM)Invalid Interpretation CodeYellowDEACONESS HOSPITAL – [place] UA Auto SSComment on above:Interpretive Data: Microscopic readings are only performed on those samples that meet specific criteria set forth by [facility].Epithelial cells.squamous Auto (Urine sed) [#/Area]>10 graded/HPF Invalid Interpretation CodeFT UA Auto SSGlucose Ql (U)4+ mg/dLInvalid Interpretation CodeNegativemg/dLDEACONESS HOSPITAL [facility] [place] U[place] Auto SSHemoglobin Auto test strip (U) [Mass/Vol]1+ mg/dLInvalid Interpretation CodeNegativemg/dLDEACONESS HOSPITAL [facility] [place] U[place] Auto SSKetones Auto test strip Ql (U)NegativeNormalNegativemg/dLDEACONESS HOSPITAL – [place] U[place] Auto SSLeukocyte esterase Auto test strip Ql (U)500 Isidoro/uL Isidoro/uLInvalid Interpretation Code NegativeLeu/uLDEACONESS HOSPITAL [facility] [place] U[place] Auto SSMucus Auto Ql (U)NegativeNormalNegativegraded/LPF [facility] [place] UA Auto SSNitrite Auto test strip Ql (U)NegativeNormalNegativemg/dLDEACONESS [facility]OS[facility] [place] U[place] Auto SSpH (U)6.5 *NA* (07/07/24 7:41 PM)Invalid Interpretation Code5.0 - 9.0[facility] [place] [facility] Auto SSProtein Ql (U)Trace mg/dLInvalid Interpretation CodeNegativemg/dLDEACONESS HOSPITAL [facility] [place] U[place] Auto SSRBC Ql (U) 31-75 graded/HPFInvalid Interpretation Code0-3graded/HPFDEACONESS HOSPITAL [facility] [place] Auto SSSpecific gravity (U) [Rel density]1.019 *NA* (07/07/24 7:41 PM)Invalid Interpretation Code1.005 - 1.030[facility] [place] [facility] Auto SS Urobilinogen (U) [Mass/Vol]NegativeNormalNegativemg/dLDEACONESS [facility]OSPITAL [facility] [place] Auto SSWBC Auto (Urine sed) [#/Area]31-75 graded/HPFInvalid Interpretation Code0-5graded/HPFDEACONESS HOSPITAL [facility] [place] U[place] Auto SSYeast.budding Computer assisted Ql (U)Trace graded/HPFInvalid Interpretation CodeDEACONESS HOSPITAL – [place] U[place] Auto SSURINALYSISOrdered By: Kelly Smith on 12-16-0324IV Spec DescClean Catch (07/07/24 7:41 PM)NormalDEACONESS HOSPITAL – [place] U[place] Auto SS eGFRon 96-85-1487jGBN33 mL/min/1.73 m2Low>=59Fisher [facility] Orthopaedic InstituteComment on above:Performed By: #### [id number] #### Filipe [facility] [address] [place], [place] [address]Iuciafkmtvm [Units/volume] in Serum or PlasmaOrdered By: Da Phillip on 38-04-9040PCG Qn1.31 m[IU]/L0.45-5.33[facility] CenterThyroxine (T4) [Mass/volume] in Serum or PlasmaOrdered By: Da Phillip on 71-41-7898K5 [Mass/Vol]9.37 ug/dL5.39-11.82[facility] Triiodothyronine (T3) [Mass/volume] in Serum or PlasmaOrdered By: Da Phillip on 36-70-0406G5 [Mass/Vol]0.90 ng/mL0.87-1.78[facility] CenterNonvisit Note - PTon 05-61-6745Dalqebxz Note - PTPt cancelled reassessment due to being sick. AMKNormalHocking Valley Community HospitalNonvisit Note - PTon 31-57-0910Fwlwqkmt Note - PTPt no showed for 1715 appointment.Miguelina Dent [facility] InstituteNonvisit Note - PTon 91-81-0707Kdmsgubj Note - PTPt called to cancel as she is ill.[facility] HospitalConsent for Treatmenton 48-64-4793Bdutspx for Treatment [id number]#1.00TIFFCleveland Clinic Hillcrest HospitalPT - Assessmentson 83-16-8614WU - Assessments [id number]#1.00TIFAshtabula County Medical CenterPT - Consentson 95-89-7903HU - Consents [id number]#1.00TIFAshtabula County Medical CenterInsurance Correspondenceon 55-58-6461Suzfqhdtp Correspondence [id number]#1.00TIFAshtabula County Medical CenterPT - Orderson 41-22-3000[place] - Orders [id number]#1.00TIFAshtabula County Medical CenterL Inj/Asp: L kneeon 02-58-7931Jjzizfl Kaufman, ARRT 09/02/2023 8:37 AM L Inj/Asp: L knee on 08/27/2023 3:43 PM Indications: pain Details: 21 G needle, lateral approach Medications: 16 mg hylan 16 MG/2ML Consent was given by the patient. [facility] HospitalPROF 14(COMP METB)on 79-79-7141Jtlxnpy [Mass/Vol] 3.2 g/dLCritically low3.4-5.0The Regional Medical CenterComment on above:Performed By: #### TSH, CMP, T7, LIPID #### [facility] [address] [place] [address] Dr. Danay De Los SantosAlbumin/Globulin [Mass ratio]1.0 {ratio}NormalWhite HospitalComment on above:Performed By: #### TSH, CMP, T7, LIPID #### [facility] [address] [place] [address] Dr. Danay Braga [Catalytic activity/Vol]92 U/PWpvlct08-844Geu Regional Medical CenterComment on above:Performed By: #### TSH, CMP, T7, LIPID #### [facility] [address] [place] [address] Dr. Danay RomanoT [Catalytic activity/Vol]21 U/PAhocis84-18Uwz Regional Medical CenterComment on above:Performed By: #### TSH, CMP, T7, LIPID #### [facility] [address] [place] [address] Dr. Danay Stearns gap [Moles/Vol]13.2 mmol/LNormalThe [facility] Comment on above:Performed By: #### TSH, CMP, T7, LIPID #### [facility] [address] [place] [address] Dr. Danay De Los SantosAST [Catalytic activity/Vol]14 U/LCritically pgr89-86Zdv Regional Medical CenterComment on above:Performed By: #### TSH, CMP, T7, LIPID #### [facility] [address] [place] [address] Dr. Danay De Los SantosBilirubin [Mass/Vol]0.2 mg/dLNormal0.2-1.0The [facility] Comment on above:Performed By: #### TSH, CMP, T7, LIPID #### [facility] [address] [place] [address] Dr. Danay De Los SantosCalcium [Mass/Vol]8.6 mg/dLNormal8.5-10.1[facility] Comment on above:Performed By: #### TSH, CMP, T7, LIPID #### [facility] [address] [place] [address] Dr. Danay De Los SantosChloride [Moles/Vol]105 mmol/AHeazdu21-473Vdm [facility] Comment on above:Performed By: #### TSH, CMP, T7, LIPID #### [facility] [address] [place] [address] Dr. Danay De Los SantosCO2 [Moles/Vol]27.9 mmol/PArqynh74.0-32.0The [facility] Comment on above:Performed By: #### TSH, CMP, T7, LIPID #### [facility] [address] [place] [address] Dr. Danay De Los SantosCreatinine [Mass/Vol]1.47 mg/dLCritically high0.55-1.02White HospitalComment on above:Performed By: #### TSH, CMP, T7, LIPID #### [facility] [address] [place] [address] Dr. Danay CarterGFR-AF PPNFXFUY71 mL/min/1.09k9Ojoermtxce low>=60The Regional Medical CenterComment on above:Performed By: #### TSH, CMP, T7, LIPID #### [facility] [address] [place] [address] Dr. Danay CarterGFR-NON AF NXWSUENF20 mL/min/1.19n8Hlvjtsqhqu low>=60The [facility] Medical CenterComment on above:Performed By: #### TSH, CMP, T7, LIPID #### [facility] [address] [place] [address] Dr. Danay De Los SantosGlobulin (S) [Mass/Vol]3.3 g/dLNormalThe Regional Medical CenterComment on above:Performed By: #### TSH, CMP, T7, LIPID #### [facility] [address] [place] [address] Dr. Danay De Los SantosGlucose [Mass/Vol]145 mg/dLCritically lgsg79-156Zzo [facility] Medical CenterComment on above:Performed By: #### TSH, CMP, T7, LIPID #### [facility] [address] [place] [address] Dr. Danay De Los SantosPotassium [Moles/Vol]4.1 mmol/LNormal3.5-5.1The [facility] Comment on above:Performed By: #### TSH, CMP, T7, LIPID #### [facility] [address] [place] [address] Dr. Danay De Los SantosProtein [Mass/Vol]6.5 g/dLNormal6.4-8.2The [facility] Comment on above:Performed By: #### TSH, CMP, T7, LIPID #### [facility] [address] [address] [address] Danay De Los SantosSodium [Moles/Vol]142 mmol/ITtiogo226-278Gvi [facility] Comment on above:Performed By: #### TSH, CMP, T7, LIPID #### [facility] [address] [address] [address] Danay De Los SantosUrea nitrogen [Mass/Vol]22.0 mg/dLCritically high7.0-18.0The [facility] Medical CenterComment on above:Performed By: #### TSH, CMP, T7, LIPID #### [facility] [address] [address] [address] Danay Mccall nitrogen/Creatinine [Mass ratio]15.0 mg/mgNormalThe Regional Medical CenterComment on above:Performed By: #### TSH, CMP, T7, LIPID #### [facility] [address] [address] [address] Danay De Los SantosPROF CHEM 8 (BAS METB)on 18-21-6892Tqtqd gap [Moles/Vol]12.1 mmol/LNormalWhite HospitalComment on above:Performed By: #### BMP #### [facility] [address] [address] [address] Danay De Los SantosCalcium [Mass/Vol]8.8 mg/dLNormal8.5-10.1[facility] Comment on above:Performed By: #### BMP #### [facility] [address] [address] [address] Danay De Los SantosChloride [Moles/Vol]103 mmol/MGpvxhb11-647[facility] Comment on above:Performed By: #### BMP #### [facility] [address] [place] [address] Dr. Danay De Los SantosCO2 [Moles/Vol]28.6 mmol/CAcindx60.0-32.0The [facility] Comment on above:Performed By: #### BMP #### [facility] [address] [address] [address] Danay De Los SantosCreatinine [Mass/Vol]2.08 mg/dLCritically high0.55-1.02The [facility] Medical CenterComment on above:Performed By: #### BMP #### [facility] [address] [address] [address] Danay CarterGFR-AF CGNNVEFS32 mL/min/1.73h5Xqwbzfzsol low>=60The [facility] Medical CenterComment on above:Performed By: #### BMP #### [facility] [address] [address] [address] Danay CarterGFR-NON AF TXGFKCKH82 mL/min/1.25j4Ziujwpaxah low>=60The [facility] Medical CenterComment on above:Performed By: #### BMP #### [facility] [address] [address] [address] Danay De Los SantosGlucose [Mass/Vol]259 mg/dLCritically trax84-948Csf [facility] Medical CenterComment on above:Performed By: #### BMP #### [facility] [address] [address] [address] Danay De Los SantosPotassium [Moles/Vol]4.7 mmol/LNormal3.5-5.1[facility] Comment on above:Performed By: #### BMP #### [facility] [address] [address] [address] Danay De Los SantosSodium [Moles/Vol]139 mmol/TPtgluz958-218Kcz [facility] Comment on above:Performed By: #### BMP #### [facility] [address] [address] [address] Danay De Los SantosUrea nitrogen [Mass/Vol]27.0 mg/dLCritically high7.0-18.0The [facility] Medical CenterComment on above:Performed By: #### BMP #### [facility] [address] [address] [address] Danay De Los SantosUrea nitrogen/Creatinine [Mass ratio]13.0 mg/mgNormalThe Regional Medical CenterComment on above:Performed By: #### BMP #### [facility] [address] [address] [address] Danay De Los SantosINSULINon 37-29-8492Rggivwu89.1 uIU/mLNormal2.6-24.9The Regional Medical CenterComment on above:Performed By: #### INSULIN #### [facility] [address] [address] [address] Danay Prado 43-21-9177Snzatohcxte peptide B (Bld) [Mass/Vol]110.0 pg/mL Normal<=900.0The Regional Medical CenterComment on above:Performed By: #### TSH, CMP, T7, LIPID #### [facility] [address] [place] [address] Dr. Danay Sanderson AUTO DIFFon 86-19-4476UVCZ #0.1 103/ulNormal0.0-0.1The [facility] Medical CenterComment on above:Performed By: #### TSH, CMP, T7, LIPID #### [facility] [address] [place] [address] Dr. Danay De Los SantosBasophils/100 WBC (Bld)0.5 %Normal0.2-2.0[facility] Comment on above:Performed By: #### TSH, CMP, T7, LIPID #### [facility] [address] [place] [address] Dr. Danay Jones #0.7 103/ulNormal0.0-0.7The [facility] on above: Performed By: #### TSH, CMP, T7, LIPID #### [facility] [address] [place] [address] Dr. Danay Carterosinophils/100 WBC (Bld)6.0 %Normal0.9-7.0The [facility] Comment on above:Performed By: #### TSH, CMP, T7, LIPID #### [facility] [address] [place] [address] Dr. aDnay Carterrythrocyte distribution width (RBC) [Ratio]15.6 %Critically high 11.0-15.0The [facility] Campusment on above:Performed By: #### TSH, CMP, T7, LIPID #### [facility] [address] [place] [address] Dr. Danay De Los SantosHematocrit (Bld) [Volume fraction]40.2 %Uurowg56.0-48.0The [facility] Medical CenterComment on above:Performed By: #### TSH, CMP, T7, LIPID #### [facility] [address] [place] [address] Dr. Danay De Los SantosHemoglobin (Bld) [Mass/Vol]12.6 g/fVGitplg44.0-16.0The [facility] Campusment on above:Performed By: #### TSH, CMP, T7, LIPID #### [facility] [address] [place] [address] Dr. Danay Michelle #0.06 10e3/ulCritically high0.00-0.03The [facility] Comment on above:Performed By: #### TSH, CMP, T7, LIPID #### [facility] [address] [place] [address] Dr. Danay Mcihelle %0.5 %Normal0.0-0.5The [facility] Campusment on above: Performed By: #### TSH, CMP, T7, LIPID #### [facility] [address] [place] [address] Dr. Danay Estes #3.2 103/ulNormal1.2-3.8The [facility] CenterComascension [facility] on above:Performed By: #### TSH, CMP, T7, LIPID #### [facility] [address] [place] [address] Dr. Danay Sethihocytes/100 WBC (Bld)28.9 %Kqhmtr75.5-60.0The [facility] Campusment on above:Performed By: #### TSH, CMP, T7, LIPID #### [facility] [address] [place] [address] Dr. Danay DavidsonUAL DIFF REQNONormalThe Regional Medical CenterComment on above: Performed By: #### TSH, CMP, T7, LIPID #### [facility] [address] [place] [address] Dr. Danay Harmon (RBC) [Entitic mass]27.3 kwUlyoev65.7-34.0The [facility] Medical CenterComment on above:Performed By: #### TSH, CMP, T7, LIPID #### [facility] [address] [place] [address] Dr. Danay Harmon (RBC) [Mass/Vol]31.3 g/rDDgkhgt66.9-35.2The [facility] HospitalComment on above:Performed By: #### TSH, CMP, T7, LIPID #### [facility] [address] [place] [address] Dr. Danay Harmon (RBC) [Entitic vol]87.2 eDWfnsie71.0-99.0The [facility] Medical CenterComment on above:Performed By: #### TSH, CMP, T7, LIPID #### [facility] [address] [place] [address] Dr. Danay Abad #0.6 103/ulNormal0.3-0.8The [facility] Medical CenterComment on above:Performed By: #### TSH, CMP, T7, LIPID #### [facility] [address] [place] [address] Dr. Danay Alexandreocytes/100 WBC (Bld)5.7 %Normal1.7-12.0The [facility] Comment on above:Performed By: #### TSH, CMP, T7, LIPID #### [facility] [address] [place] [address] Dr. Danay Medina #6.4 103/ulNormal1.4-6.5The [facility] Medical CenterComment on above:Performed By: #### TSH, CMP, T7, LIPID #### [facility] [address] [place] [address] Dr. Danay Quickophils/100 WBC (Bld)58.4 %Gjetge06.0-75.0The [facility] Medical CenterComment on above:Performed By: #### TSH, CMP, T7, LIPID #### [facility] [address] [place] [address] Dr. Danay Stroudlet mean volume (Bld) [Entitic vol]10.6 fLNormal9.5-13.5The [facility] Campusment on above:Performed By: #### TSH, CMP, T7, LIPID #### [facility] [address] [place] [address] Dr. Danay De Los SantosPLT251 103/gwErhxne046-873Mdd Regional Medical CenterComment on above: Performed By: #### TSH, CMP, T7, LIPID #### [facility] [address] [place] [address] Dr. Danay De Los SantosRBC4.61 106/ulNormal4.20-5.40The [facility] Medical CenterComment on above:Performed By: #### TSH, CMP, T7, LIPID #### [facility] [address] [place] [address] Dr. Danay De Los SantosWBC10.9 103/ulNormal4.0-11.0The [facility] Medical CenterComment on above:Performed By: #### TSH, CMP, T7, LIPID #### [facility] [address] [place] [address] Dr. Danay De Los SantosFRAGUSTIN THYROXINE INDEX T7on 35-10-1521BOC7.74Ndndgb4.30-4.50The [facility] Campusment on above:Performed By: #### TSH, CMP, T7, LIPID #### [facility] [address] [place] [address] Dr. Danay De Los SantosT3U35.0 %Otvphl41.0-39.0The [facility] Campusment on above: Performed By: #### TSH, CMP, T7, LIPID #### [facility] [address] [place] [address] Dr. Danay De Los SantosT4 [Mass/Vol]8.20 ug/dLNormal4.80-13.90The [facility] Comment on above:Performed By: #### TSH, CMP, T7, LIPID #### [facility] [address] [place] [address] Dr. Danay De Los SantosGLYCOHEMOGLOBIN A1Con 85-28-0273XOP RECOMMENDATIONSEE BELOWNoatrium health The Regional Medical CenterComment on above:Result Comment: ADA RECOMMENDED LIMIT 4.0 - 6.0 ADA THERAPEUTIC TARGET < 7.0 ACTION SUGGESTED > 7.0Performed By: #### A1C #### [facility] [address] [address] [address] Danay De Los SantosGlucose [Mass/Vol]203 mg/dLNoCleveland Clinic Lutheran HospitalComment on above:Performed By: #### A1C #### [facility] [address] [address] [address] Danay De Los SantosHbA1c (Bld) [Mass fraction]8.7 %Critically high4.5-6.2The [facility] CenterComascension b[facility] on above:Performed By: #### A1C #### [facility] [address] [place] [address] Dr. Danay Arroyo 46-66-4419Zayw [Mass/Vol]39.0 ug/dLCritically low 50.0-170.0The [facility] Medical CenterComment on above:Performed By: #### TSH, CMP, T7, LIPID #### [facility] [address] [place] [address] Dr. Danay De Los SantosLIPID PROFILEon 97-16-2532HIRV-HDL RATIO NORMSEE [facility] CenterComascension [facility] on above:Result Comment: 3.3 - 4.4 LOW RISK 4.4 - 7.1 AVERAGE RISK 7.1 - 11.0 MODERATE RISK >11.0 HIGH RISKPerformed By: #### TSH, CMP, T7, LIPID #### [facility] [address] [address] [address] Danay De Los SantosCholesterol [Mass/Vol]123 mg/dLNormal<=200The [facility] Comment on above:Performed By: #### TSH, CMP, T7, LIPID #### [facility] [address] [address] [address] Danay De Los SantosCholesterol in HDL [Mass/Vol]40 mg/lSAnblgs68-28Ikh [facility] CenterComment on above:Performed By: #### TSH, CMP, T7, LIPID #### [facility] [address] [address] [address] Danay De Los SantosCholesterol in LDL [Mass/Vol]70.4 mg/dLOhioHealth Southeastern Medical CenterComment on above:Performed By: #### TSH, CMP, T7, LIPID #### [facility] [address] [address] [address] Danay Lopezesterangie.total/Cholesterol in HDL [Mass ratio]3.1 {ratio} NormalThe Regional Medical CenterComascension borgess lee hospital on above:Performed By: #### TSH, CMP, T7, LIPID #### [facility] [address] [address] [address] Danay Oviedo NORMAL> or = 60 mg/dl - LOW CARDIOVASCULAR RISK <40 mg/dl - HIGH CARDIOVASCULAR RISKNoCleveland Clinic Lutheran HospitalComment on above:Performed By: #### TSH, CMP, T7, LIPID #### [facility] [address] [address] [address] Danay Alonso CALC NORMALSEE BELOWNoCleveland Clinic Lutheran HospitalComment on above:Result Comment: <100 mg/dl OPTIMAL 100 - 129 mg/dl NEAR OR ABOVE OPTIMAL 130 - 159 mg/dl BORDERLINE HIGH 160 - 189 mg/dl HIGH >190 mg/dl VERY HIGH Performed By: #### TSH, CMP, T7, LIPID #### [facility] [address] [address] [address] Danay De Los SantosTriglyceride [Mass/Vol]63 mg/dLNormal<=150[facility] Comment on above:Performed By: #### TSH, CMP, T7, LIPID #### [facility] [address] [address] [address] Danay De Los SantosVLDL CALC12.6 mg/dLNoCleveland Clinic Lutheran HospitalComment on above: Performed By: #### TSH, CMP, T7, LIPID #### [facility] [address] [address] [address] Danay De Los SantosPROF 14(COMP METB)on 49-00-5488Anztgef [Mass/Vol]3.3 g/dL Critically low3.4-5.0The [facility] Medical CenterComment on above:Performed By: #### TSH, CMP, T7, LIPID #### [facility] [address] [place] [address] Dr. Danay De Los SantosAlbumin/Globulin [Mass ratio]1.0 {ratio}NormalThe Regional Medical CenterComment on above:Performed By: #### TSH, CMP, T7, LIPID #### [facility] [address] [place] [address] Dr. Danay RomanoP [Catalytic activity/Vol]94 U/VEbtlzl21-358Cbx [facility] Medical CenterComment on above:Performed By: #### TSH, CMP, T7, LIPID #### [facility] [address] [place] [address] Dr. Danay Brown [Catalytic activity/Vol]17 U/SHcxhyc47-28Fqt [facility] CenterComment on above:Performed By: #### TSH, CMP, T7, LIPID #### [facility] [address] [place] [address] Dr. Danay Stearns gap [Moles/Vol]14.3 mmol/LNormalThe [facility] Comment on above:Performed By: #### TSH, CMP, T7, LIPID #### [facility] [address] [place] [address] Dr. Danay De Los SantosAST [Catalytic activity/Vol]11 U/LCritically xqb49-89Qnz [facility] CenterComment on above:Performed By: #### TSH, CMP, T7, LIPID #### [facility] [address] [place] [address] Dr. Danay De Los SantosBilirubin [Mass/Vol]0.3 mg/dLNormal0.2-1.0The [facility] Comment on above:Performed By: #### TSH, CMP, T7, LIPID #### [facility] [address] [place] [address] Dr. Danay De Los SantosCalcium [Mass/Vol]9.1 mg/dLNormal8.5-10.1[facility] Comment on above:Performed By: #### TSH, CMP, T7, LIPID #### [facility] [address] [address] [address] Danay De Los SantosChloride [Moles/Vol]105 mmol/BTtwsxu45-496Umo [facility] Comment on above:Performed By: #### TSH, CMP, T7, LIPID #### [facility] [address] [address] [address] Danay De Los SantosCO2 [Moles/Vol]29.3 mmol/WJvxvhi17.0-32.0The [facility] Comment on above:Performed By: #### TSH, CMP, T7, LIPID #### [facility] [address] [place] [address] Dr. Danay De Los SantosCreatinine [Mass/Vol]1.53 mg/dLCritically high0.55-1.02The [facility] Medical CenterComment on above:Performed By: #### TSH, CMP, T7, LIPID #### [facility] [address] [place] [address] Dr. Danay CarterGFR-AF OCLRMGBF50 mL/min/1.55z3Ydmpcgpzvc low>=60The [facility] Medical CenterComment on above:Performed By: #### TSH, CMP, T7, LIPID #### [facility] [address] [place] [address] Dr. Danay Abad-NON AF XCTPRVDN82 mL/min/1.46h0Jmybckfqhk low>=60The [facility] Medical CenterComment on above:Performed By: #### TSH, CMP, T7, LIPID #### [facility] [address] [place] [address] Dr. Danay De Los SantosGlobulin (S) [Mass/Vol]3.4 g/dLNormalThe Regional Medical CenterComment on above:Performed By: #### TSH, CMP, T7, LIPID #### [facility] [address] [place] [address] Dr. Danay De Los SantosGlucose [Mass/Vol]192 mg/dLCritically ztel30-000KinCentervillement on above:Performed By: #### TSH, CMP, T7, LIPID #### [facility] [address] [place] [address] Dr. Danay eD Los SantosPotassium [Moles/Vol]4.6 mmol/LNormal3.5-5.1[facility] Comment on above:Performed By: #### TSH, CMP, T7, LIPID #### [facility] [address] [address] [address] Danay De Los SantosProtein [Mass/Vol]6.7 g/dLNormal6.4-8.2[facility] Comment on above:Performed By: #### TSH, CMP, T7, LIPID #### [facility] [address] [place] [address] Dr. Danay De Los SantosSodium [Moles/Vol]144 mmol/QJcuekc253-600Ptp [facility] Comment on above:Performed By: #### TSH, CMP, T7, LIPID #### [facility] [address] [place] [address] Dr. Danay De Los SantosUrea nitrogen [Mass/Vol]25.0 mg/dLCritically high7.0-18.0The [facility] CenterComment on above:Performed By: #### TSH, CMP, T7, LIPID #### [facility] [address] [place] [address] Dr. Danay Mccall nitrogen/Creatinine [Mass ratio]16.3 mg/mgOhioHealth Southeastern Medical CenterComment on above:Performed By: #### TSH, CMP, T7, LIPID #### [facility] [address] [place] [address] Dr. Danay BeyHokaron 55-21-3160HVR5.181 uIU/mLNormal0.358-3.740The [facility] CenterComment on above:Performed By: #### TSH, CMP, T7, LIPID #### [facility] [address] [place] [address] Dr. Danay De Los SantosVITAMIN D 25 OHon 27-51-7018KHS D 25-OH32.9 ng/mLNormalThe Regional Medical CenterComment on above:Performed By: #### TSH, CMP, T7, LIPID #### [facility] [address] [place] [address] Dr. Danay Pedroza RANGESSEE BELOWOhioHealth Southeastern Medical CenterComment on above: Result Comment: <20 ng/mL Vit D deficient 20 - <30 ng/mL Vit D insufficient 30 - 100 ng/mL Vit D sufficient >100 ng/mL Potential ToxicityPerformed By: #### TSH, CMP, T7, LIPID #### [facility] [address] [address] [address] Danay Conway ROEL DOP LEG LTon 06-31-5390ZM ROEL DOP LEG LTEXAM: US ROEL DOP LEG LT HISTORY: Edema [...] Electronically authenticated by: MORIAH MORRISON Date: 2022-12-01 12:54[facility] Medical CenterXR Hand Complete Left*on 94-52-8122QX Hand Complete Left* CLINICAL HISTORY: Fall with left hand stiffness. COMPARISON: None. RESULT: No distinct acute fracture. No dislocation. Underlying decreased bone mineral density. Mild to moderate scattered degenerative changes. Soft tissue edema. IMPRESSION: No acute osseous findings radiographically. Report reported and signed by Home Lockwood on 08/24/2022 1108NoSumma Health Wadsworth - Rittman Medical CenterXR Spine Cervical Complete*on 90-14-8540OH Spine Cervical Complete*CLINICAL HISTORY: Fall with posterior neck pain COMPARISON: [...] and signed by Home Lockwood on 08/24/2022 1109NoSumma Health Wadsworth - Rittman Medical CenterXR HAND RIMA MIN 3Von 93-34-4497QV HAND RIMA MIN 3VEXAM: XR HAND RIMA MIN 3V HISTORY: Pain following fall COMPARISON: None. TECHNIQUE: 3 views of each hand FINDINGS: No visualized fracture, dislocation, subluxation or osseous lesion. Age-related joint space changes. No gross visualized soft tissue edema. IMPRESSION: No visualized abnormality Electronically authenticated by: BRIANNA KU Date: 2022-08-06 20:28NoCleveland Clinic Lutheran HospitalXR HIP RT 2 3V W PELVISon 94-68-8026RO HIP RT 2 3V W PELVIS EXAM: [...] Electronically authenticated by: BRIANNA KU Date: 2022-08-06 20:29NoCleveland Clinic Lutheran HospitalXR SHOULDER RT 2V or >on 26-26-2812IF SHOULDER RT 2V or >EXAM: XR SHOULDER RT 2V or > HISTORY: Pain from fall COMPARISON: None. TECHNIQUE: 3 views FINDINGS: No osseous lesion, fracture, dislocation or subluxation. Moderate degenerative changes of the acromioclavicular joint. No visualized effusion. No visualized soft tissue edema. IMPRESSION: Normal x-rays Electronically authenticated by: BRIANNA KU Date: 2022-08-06 20:21NoCleveland Clinic Lutheran HospitalXR Foot Complete Left*on 59-28-6573NO Foot Complete Left* COMPARISON: None available HISTORY: Second and third digit pain after a fall TECHNIQUE: AP, lateral and oblique views of the foot obtained. FINDINGS: No acute fracture or dislocation. Joint spaces are preserved. Soft tissues are within normal limits. IMPRESSION: No acute osseous abnormality. Report reported and signed by Drew Looney on 08/04/2022 1044NormalNorthern New Mexico Medical SpecialistXR Knee Complete Left*on 62-13-0141CX Knee Complete Left* HISTORY: Knee pain since a fall TECHNIQUE: AP, lateral and oblique views of the knee obtained. COMPARISON: Radiographs of the knee 04/06/2019 FINDINGS: No acute fracture or dislocation. Joint spaces of the knee are maintained. No knee joint effusion. Soft tissues are within normal limits. IMPRESSION: No acute osseous abnormality. Report reported and signed by Drew Looney on 08/04/2022 1046NormalNorthern New Mexico Medical SpecialistMRI BRAIN WO CONon 38-42-3562HER BRAIN WO CONEXAMINATION: MRI BRAIN WO CON, 07/02/2022 1:55 PM [...] Electronically authenticated by: BRIANNA GREEN Date: 2022-07-02 14:48NormAvita Health SystemINSULINon 29-54-5685Kpsnwvg26.4 uIU/mLNormal2.6-24.9The [facility] Medical CenterComment on above:Performed By: #### INSULIN #### [facility] [address] [place] [address] Dr. Danay Sanderson AUTO DIFFon 42-58-3650WIKP #0.1 103/ulNormal0.0-0.1The [facility] Medical CenterComment on above:Performed By: #### CBC #### [facility] [address] [place] [address] Dr. Danay De Los SantosBasophils/100 WBC (Bld)0.8 %Normal0.2-2.0[facility] Comment on above:Performed By: #### CBC #### [facility] [address] [place] [address] Dr. Danay Jones #0.6 103/ulNormal0.0-0.7The [facility] Medical CenterComment on above: Performed By: #### CBC #### [facility] [address] [place] [address] Dr. Danay Carterosinophils/100 WBC (Bld)5.1 %Normal0.9-7.0[facility] Comment on above:Performed By: #### CBC #### [facility] [address] [place] [address] Dr. Danay Carterrythrocyte distribution width (RBC) [Ratio]14.7 %Hjdwno68.0-15.0 The [facility] Medical CenterComment on above:Performed By: #### CBC #### [facility] [address] [place] [address] Dr. Danay De Los SantosHematocrit (Bld) [Volume fraction]37.8 %Ofczeu52.0-48.0The [facility] CenterComment on above:Performed By: #### CBC #### [facility] [address] [place] [address] Dr. Danay De Los SantosHemoglobin (Bld) [Mass/Vol]12.3 g/iEDzppyn88.0-16.0The [facility] CenterComment on above:Performed By: #### CBC #### [facility] [address] [place] [address] Dr. Danay Michelle #0.05 10e3/ulCritically high0.00-0.03[facility] Comment on above:Performed By: #### CBC #### [facility] [address] [place] [address] Dr. Danay Michelle %0.5 %Normal0.0-0.5The [facility] Medical CenterComment on above: Performed By: #### CBC #### [facility] [address] [place] [address] Dr. Danay SethiH #2.1 103/ulNormal1.2-3.8The [facility] Medical CenterComment on above:Performed By: #### CBC #### [facility] [address] [place] [address] Dr. Danay Cobbmphocytes/100 WBC (Bld)19.1 %Critically low20.5-60.0The [facility] Medical CenterComment on above:Performed By: #### CBC #### [facility] [address] [place] [address] Dr. Danay Ward DIFF REQNONormalThe Regional Medical CenterComment on above: Performed By: #### CBC #### [facility] [address] [place] [address] Dr. Danay Harmon (RBC) [Entitic mass]30.8 syTlxyab76.7-34.0The [facility] CenterComment on above:Performed By: #### CBC #### [facility] [address] [place] [address] Dr. Danay Harmon (RBC) [Mass/Vol]32.5 g/uRVzbald01.9-35.2The [facility] CenterComment on above:Performed By: #### CBC #### [facility] [address] [place] [address] Dr. Danay Harmon (RBC) [Entitic vol]94.5 tYShpieu93.0-99.0The [facility] CenterComment on above:Performed By: #### CBC #### [facility] [address] [place] [address] Dr. Danay Abad #0.6 103/ulNormal0.3-0.8The [facility] CenterComment on above:Performed By: #### CBC #### [facility] [address] [place] [address] Dr. Danay Alexandreocytes/100 WBC (Bld)5.1 %Normal1.7-12.0[facility] Comment on above:Performed By: #### CBC #### [facility] [address] [place] [address] Dr. Danay Medina #7.5 103/ulCritically high1.4-6.5[facility] Comment on above:Performed By: #### CBC #### [facility] [address] [address] [address] Danay Brandutrophils/100 WBC (Bld)69.4 %Ozujag62.0-75.0The [facility] Barber[facility] Campusment on above:Performed By: #### CBC #### [facility] [address] [place] [address] Dr. Danay Stroudlet mean volume (Bld) [Entitic vol]10.9 fLNormal9.5-13.5The [facility] CenterComment on above:Performed By: #### CBC #### [facility] [address] [place] [address] Dr. Danay De Los SantosPLT235 103/nwUiphju682-191Gpi [facility] CenterComment on above: Performed By: #### CBC #### [facility] [address] [place] [address] Dr. Danay De Los SantosRBC4.00 106/ulCritically low4.20-5.40The [facility] Barber[facility] Campusment on above:Performed By: #### CBC #### [facility] [address] [place] [address] Dr. Danay De Los SantosWBC10.8 103/ulNormal4.0-11.0The [facility] Barber[facility] Campusment on above:Performed By: #### CBC #### [facility] [address] [place] [address] Dr. Danay Zepdea THYROXINE INDEX T7on 72-96-1201PKI7.41Xgptvu6.30-4.50The [facility] on above:Performed By: #### TSH, CMP, T7, LIPID #### [facility] [address] [place] [address] Dr. Danay De Los SantosT3U31.0 %Dxbdjg36.0-39.0The [facility] Campusment on above: Performed By: #### TSH, CMP, T7, LIPID #### [facility] [address] [place] [address] Dr. Danay De Los SantosT4 [Mass/Vol]5.90 ug/dLNormal4.80-13.90[facility] Comment on above:Performed By: #### TSH, CMP, T7, LIPID #### [facility] [address] [address] [address] Danay De Los SantosGLYCOHEMOGLOBIN A1Con 19-94-4073FYS RECOMMENDATIONSEE BELOWNormSelect Medical Specialty Hospital - Southeast OhioComascension borg[facility] lee hospital on above:Result Comment: ADA RECOMMENDED LIMIT 4.0 - 6.0 ADA THERAPEUTIC TARGET < 7.0 ACTION SUGGESTED > 7.0Performed By: #### A1C #### [facility] [address] [address] [address] Danay De Los SantosGlucose [Mass/Vol]186 mg/dLNoCleveland Clinic Lutheran HospitalComment on above:Performed By: #### A1C #### [facility] [address] [place] [address] Dr. Danay De Los SantosHbA1c (Bld) [Mass fraction]8.1 %Critically high4.5-6.2The [facility] CenterComment on above:Performed By: #### A1C #### [facility] [address] [place] [address] Dr. Danay Arroyo 07-18-8345Rams [Mass/Vol]61.0 ug/wDGuflsu07.0-170.0The [facility] CenterComment on above:Performed By: #### TSH, CMP, T7, LIPID #### [facility] [address] [place] [address] Dr. Danay De Los SantosLIPID PROFILEon 96-55-3646UGAQ-HDL RATIO NORMSEE [facility] Medical CenterComment on above:Result Comment: 3.3 - 4.4 LOW RISK 4.4 - 7.1 AVERAGE RISK 7.1 - 11.0 MODERATE RISK >11.0 HIGH RISKPerformed By: #### TSH, CMP, T7, LIPID #### [facility] [address] [place] [address] Dr. Danay De Los SantosCholesterol [Mass/Vol]130 mg/dLNormal<=200[facility] Comment on above:Performed By: #### TSH, CMP, T7, LIPID #### [facility] [address] [place] [address] Dr. Danay Lopezesterol in HDL [Mass/Vol]40 mg/pQWrxotn63-56OezHolzer Medical Center – Jackson on above:Performed By: #### TSH, CMP, T7, LIPID #### [facility] [address] [address] [address] Danay Lopezesterol in LDL [Mass/Vol]75.8 mg/dLNoCleveland Clinic Lutheran HospitalComment on above:Performed By: #### TSH, CMP, T7, LIPID #### [facility] [address] [address] [address] Danay Nair.total/Cholesterol in HDL [Mass ratio]3.3 {ratio} NormalThe Regional Medical CenterComascension borgess lee hospital on above:Performed By: #### TSH, CMP, T7, LIPID #### [facility] [address] [address] [address] Danay Oviedo NORMAL> or = 60 mg/dl - LOW CARDIOVASCULAR RISK <40 mg/dl - HIGH CARDIOVASCULAR RISKNoCleveland Clinic Lutheran HospitalComment on above:Performed By: #### TSH, CMP, T7, LIPID #### [facility] [address] [address] [address] Danay Alonso CALC NORMALSEE BELOWOhioHealth Southeastern Medical CenterComment on above:Result Comment: <100 mg/dl OPTIMAL 100 - 129 mg/dl NEAR OR ABOVE OPTIMAL 130 - 159 mg/dl BORDERLINE HIGH 160 - 189 mg/dl HIGH >190 mg/dl VERY HIGH Performed By: #### TSH, CMP, T7, LIPID #### [facility] [address] [address] [address] Danay De Los SantosTriglyceride [Mass/Vol]71 mg/dLNormal<=150[facility] Comment on above:Performed By: #### TSH, CMP, T7, LIPID #### [facility] [address] [address] [address] Danay AppiahLDL CALC14.2 mg/dLNoCleveland Clinic Lutheran HospitalComment on above: Performed By: #### TSH, CMP, T7, LIPID #### [facility] [address] [place] [address] Dr. Danay Enciso 14(COMP METB)on 74-33-6224Kpjoyrk [Mass/Vol]3.4 g/dLNormal 3.4-5.0The [facility] CenterComment on above:Performed By: #### TSH, CMP, T7, LIPID #### [facility] [address] [address] [address] Danay De Los SantosAlbumin/Globulin [Mass ratio]1.0 {ratio}NormalThe [facility] Medical CenterComment on above:Performed By: #### TSH, CMP, T7, LIPID #### [facility] [address] [address] [address] Danay Braga [Catalytic activity/Vol]92 U/DDuvhkc46-959Hzw [facility] CenterComment on above:Performed By: #### TSH, CMP, T7, LIPID #### [facility] [address] [address] [address] Danay RomanoT [Catalytic activity/Vol]15 U/QLahbfx96-76Xdb [facility] CenterComment on above:Performed By: #### TSH, CMP, T7, LIPID #### [facility] [address] [address] [address] Danay Stearns gap [Moles/Vol]10.4 mmol/LNormalThe [facility] Comment on above:Performed By: #### TSH, CMP, T7, LIPID #### [facility] [address] [address] [address] Danay De Los SantosAST [Catalytic activity/Vol]12 U/LCritically bsk27-54Dub [facility] CenterComment on above:Performed By: #### TSH, CMP, T7, LIPID #### [facility] [address] [address] [address] Danay De Los SantosBilirubin [Mass/Vol]0.4 mg/dLNormal0.2-1.0[facility] Comment on above:Performed By: #### TSH, CMP, T7, LIPID #### [facility] [address] [address] [address] Danay De Los SantosCalcium [Mass/Vol]8.7 mg/dLNormal8.5-10.1[facility] Comment on above:Performed By: #### TSH, CMP, T7, LIPID #### [facility] [address] [address] [address] Danay De Los SantosChloride [Moles/Vol]107 mmol/NXpjfhr61-428UjyWhite Hospital Comment on above:Performed By: #### TSH, CMP, T7, LIPID #### [facility] [address] [place] [address] Dr. Danay De Los SantosCO2 [Moles/Vol]28.9 mmol/JJsshmb26.0-32.0[facility] Comment on above:Performed By: #### TSH, CMP, T7, LIPID #### [facility] [address] [place] [address] Dr. Danay De Los SantosCreatinine [Mass/Vol]1.18 mg/dLCritically high0.55-1.02White HospitalComment on above:Performed By: #### TSH, CMP, T7, LIPID #### [facility] [address] [place] [address] Dr. Danay CarterGFR-AF IUEKRQQT58 mL/min/1.56c8Rdennqqhmb low>=60The [facility] CenterComment on above:Performed By: #### TSH, CMP, T7, LIPID #### [facility] [address] [place] [address] Dr. Danay CarterGFR-NON AF UHFIALJB63 mL/min/1.04h3Jqdkwyefco low>=60The [facility] CenterComment on above:Performed By: #### TSH, CMP, T7, LIPID #### [facility] [address] [place] [address] Dr. Danay De Los SantosGlobulin (S) [Mass/Vol]3.3 g/dLNormalThe [facility] Medical CenterComment on above:Performed By: #### TSH, CMP, T7, LIPID #### [facility] [address] [place] [address] Dr. Danay De Los SantosGlucose [Mass/Vol]153 mg/dLCritically nzde45-543Uej [facility] CenterComment on above:Performed By: #### TSH, CMP, T7, LIPID #### [facility] [address] [place] [address] Dr. Danay De Los SantosPotassium [Moles/Vol]4.3 mmol/LNormal3.5-5.1[facility] Comment on above:Performed By: #### TSH, CMP, T7, LIPID #### [facility] [address] [place] [address] Dr. Danay De Los SantosProtein [Mass/Vol]6.7 g/dLNormal6.4-8.2[facility] Comment on above:Performed By: #### TSH, CMP, T7, LIPID #### [facility] [address] [place] [address] Dr. Danay De Los SantosSodium [Moles/Vol]142 mmol/CQhmimf315-797Ays [facility] Comment on above:Performed By: #### TSH, CMP, T7, LIPID #### [facility] [address] [place] [address] Dr. Danay De Los SantosUrea nitrogen [Mass/Vol]16.0 mg/dLNormal7.0-18.0The [facility] CenterComment on above:Performed By: #### TSH, CMP, T7, LIPID #### [facility] [address] [place] [address] Dr. Danay Mccall nitrogen/Creatinine [Mass ratio]13.6 mg/mgNormalThe [facility] Medical CenterComment on above:Performed By: #### TSH, CMP, T7, LIPID #### [facility] [address] [place] [address] Dr. Danay Barfield 69-69-3480GRW1.443 uIU/mLNormal0.358-3.740White HospitalComment on above:Performed By: #### TSH, CMP, T7, LIPID #### [facility] [address] [place] [address] Dr. Danay Huang DEXA BONE DENSITYon 96-70-9635ZP DEXA BONE DENSITYEXAMINATION: XR DEXA BONE DENSITY, 04/05/2022 11:40 AM EDT HISTORY: [...] Electronically authenticated by: BECKY AVILEZ Date: 2022-04-05 12:11[facility] Medical CenterGLYCOHEMOGLOBIN A1Con 40-15-5227GZN RECOMMENDATIONSEE BELOW NormalThe Regional Medical CenterComment on above:Result Comment: ADA RECOMMENDED LIMIT 4.0 - 6.0 ADA THERAPEUTIC TARGET < 7.0 ACTION SUGGESTED > 7.0Performed By: #### TSH, CMP, T7, LIPID #### [facility] [address] [address] [address] Danay De Los SantosGlucose [Mass/Vol]174 mg/dLNoCleveland Clinic Lutheran HospitalComment on above:Performed By: #### TSH, CMP, T7, LIPID #### [facility] [address] [address] [address] Danay De Los SantosHbA1c (Bld) [Mass fraction]7.7 %Critically high4.5-6.2The [facility] Medical CenterComment on above:Performed By: #### TSH, CMP, T7, LIPID #### [facility] [address] [address] [address] Danay De Los SantosMG MAMM SCREEN 3D RIMA CADon 08-88-6983ND MAMM SCREEN 3D RIMA CAD Patient: VIRGEN GONZALES Exam Date: 02/14/2022 : 1955 Gender:F [facility]ing : [facility] Admission #: [id number] Family : Order #: [id number] CLICK HERE TO VIEW EXAM RADIOLOGY REPORT [...] unknown cancer at age 24. LOCATION: [facility] BREAST COMPOSITION: Heterogeneously dense,which may [...] on 02/14/2022 at 16:09 Approved by: Becky Avielz M.D. on 02/14/2022 at 16:12[place] CARDIAC STRESS/REST INJECTIONon 06-07-6227PHB CARDIAC STRESS/REST INJECTIONMRN: [id number] Patient Name: VIRGEN GONZALES STUDY: MYOCARDIAL PERFUSION STRESS TEST WITH LEXISCAN Performing facility: [facility], [address] [place] [address], [address] Provider: Catarino Koroma MD, FACC PCP: Dr. Nicola Granger Supervising provider: Catarino Koroma MD, FACC INDICATION: Abnormal EKG; Pre-operative risk assessment for Knee surgery scheduled at unknown on unknown. RBBB HISTORY: Gender: F; Age: 64 y/o ; Height: 152.4 cm; Weight: 77.1656034 kg. High Cholesterol; Abnormal EKG; Diabetes; Family HX CAD; HTN; Smoking COMPARISON: No comparison. ACCESSION NUMBER(S): [id number]; [id number]; [id number] ORDERING CLINICIAN: CATARINO KOROMA TECHNIQUE: ONE DAY [...] for comparison. Electronically signed by: CATARINO KOROMA MDAdvanced Surgical Hospital Vital Signs Date TimeVital SignValuePerforming HfvmauoaxOpteszsl15-88-1967 13:25-0400Body nadrkb894.4 Kelsey Davis EDUCATION RN-C Work Phone: [facility]10-22-2025 13:25-0400 Body mass index (BMI) [Ratio]37.5 kg/r9NcbrpaAggie Davis EDUCATION RN-C Work Phone: [facility]10-22-2025 13:25-0400 Body bywjcs94.1 kgAggie Davis EDUCATION RN-C Work Phone: [facility]10-22-2025 13:25-0400 Diastolic blood dzrbmilf88 mm[Hg]Aggie Susan EDUCATION RN-C Work Phone: [phone] [place], [place] 5083010-22-2025 13:25-0400 Systolic blood etchtyad657 mm[Hg]Aggie Davis EDUCATION RN-C Work Phone: [phone] [place], [place] 5083010-20-2025 10:19-0400 Body .4 cmPaul Biedenbach DO Work Phone: [facility] HospitalCsbwflmmdw21-97-8780 10:19-0400Body mass index (BMI) [Ratio]37.11 kg/m2Paul Biedenbach DO Work Phone: [facility] HospitalEbrhuykfdc09-13-3785 10:19-0400Body mdxirn14.18 kgPaul Biedenbach DO Work Phone: [facility] HospitalOydxactobj58-08-8780 15:11-0400Body ykayoj461.4 cmPamela Susan EDUCATION RN-C Work Phone: [facility]09-29-2025 15:11-0400 Body mass index (BMI) [Ratio]37.5 kg/o3Ormxbi Susan EDUCATION RN-C Work Phone: [facility]09-29-2025 15:11-0400 Body uewsba24.08 kgPamela Susan EDUCATION RN-C Work Phone: [phone]-[address] [place], [place] 5083009-29-2025 15:11-0400 Diastolic blood zubcluzw97 mm[Hg]Aggie Davis EDUCATION RN-C Work Phone: [facility]09-29-2025 15:11-0400 Heart rate68 /minPamela Susan EDUCATION RN-C Work Phone: [phone] [place], [place] 5083009-29-2025 15:11-0400 Respiratory rate18 /minPamela Susan EDUCATION RN-C Work Phone: [phone] [place], [place] 5083009-29-2025 15:11-0400 SaO2% (BldA) [Mass fraction]96 %Aggie Davis EDUCATION RN-C Work Phone: [phone] [place], [place] 5083009-29-2025 15:11-0400 Systolic blood aooptgfa87 mm[Hg]Aggie Davis EDUCATION RN-C Work Phone: [facility]09-29-2025 13:49-0400 Body .4 Josh Naqvi MD Work Phone: [phone] [place], [place] [address]Davmpgqrbj54-86-9642 13:49-0400Body mass index (BMI) [Ratio]37.11 kg/o0TafbrMathieu Naqvi MD Work Phone: [phone] [place], [place] [address]Wigkngapcs65-94-6146 13:49-0400Body odhpwf04.18 kgMathieu Naqvi MD Work Phone: [phone] [place], [place] [address]Bcttdcgprx09-18-5751 13:49-0400Diastolic blood ymoxhqvc20 mm[Hg]Mathieu Naqvi MD Work Phone: [phone] [place], [place] [address]Akyxdudkiv33-18-9014 13:49-0400Heart rate68 /min Mathieu Naqvi MD Work Phone: [phone] [place], [place] [address]Dgvqgloscn69-46-8726 13:49-0400Respiratory rate16 /minMathieu Naqvi MD Work Phone: [phone])[facility] [place], [place] [address]Vqhinntwmo77-66-1691 13:49-0745QfN2% (BldA) [Mass fraction]96 %Mathieu Naqvi MD Work Phone: [phone] [place], [place] [address]Zgemjpfscd87-06-3432 13:49-0400Systolic blood lstwhile827 mm[Hg]Mathieu Naqvi MD Work Phone: [phone] [place], [place] [address]Qkvwrzfvpu47-97-9628 17:44-0400Body .4 Kelsey Davis EDUCATION RN-C Work Phone: [facility]09-10-2025 17:44-0400 Body swjcomwwbzk24.4 [degF]Aggie Davis EDUCATION RN-C Work Phone: [facility] [facility]09[facility] 17:44-0400 Body ksmmge13.45 kgAggie Davis EDUCATION RN-C Work Phone: 1(419)[address]09-10-2025 17:44-0400 Diastolic blood cxxdozbx40 mm[Hg]Aggie Susan EDUCATION RN-C Work Phone: 1419)[facility]-[address] [place], [place] 5083009-10-2025 17:44-0400 Heart bsec345 /minPamela Susan EDUCATION RN-C Work Phone: 1(419)[address] [place], [place] 3855109-10-2025 17:44-0400 Respiratory rate18 /minPamela Susan EDUCATION RN-C Work Phone: 1(419)[address] [place], [place] 3855109-10-2025 17:44-0400 SaO2% (BldA) [Mass fraction]97 %Aggie Susan EDUCATION RN-C Work Phone: 1(126)[address] [place], [place] 3855109-10-2025 17:44-0400 Systolic blood jekawlqr771 mm[Hg]Aggie Susan EDUCATION RN-C Work Phone: 1(109)[address] [place], [place] 3855106-19-2025 12:13-0400 Body .4 cmPamela Susan EDUCATION RN-C Work Phone: 1(419)[address] [place], [place] 3855106-19-2025 12:13-0400 Body mass index (BMI) [Ratio]38.7 kg/g4Rricxq Susan EDUCATION RN-C Work Phone: 1(426)[address] [place], [place] 3855106-19-2025 12:13-0400 Body wzjiyf44.81 kgPamela Susan EDUCATION RN-C Work Phone: 1(701)[facility]-[address] [place], [place] 5083006-19-2025 12:13-0400 Diastolic blood aetkylwt33 mm[Hg]Aggie Susan EDUCATION RN-C Work Phone: 1419)[address]06-19-2025 12:13-0400 Heart rate79 /minPamela Susan EDUCATION RN-C Work Phone: 1419)[facility]-[address] [place], [place] 5083006-19-2025 12:13-0400 SaO2% (BldA) [Mass fraction]94 %Aggie Ssuan EDUCATION RN-C Work Phone: 1(253)[address] [place], [place] 3855106-19-2025 12:13-0400 Systolic blood qmbcuvfq250 mm[Hg]Aggie Mccormackmer EDUCATION RN-C Work Phone: 1(639)436-[address] [place], [place] 5083006-09-2025 13:41-0400 Body eicwii16.81 kgAggie Mccormackmer EDUCATION RN-C Work Phone: 1(626)305-[address] [place], [place] 5083006-09-2025 13:41-0400 Diastolic blood ltzrihvb90 mm[Hg]Aggie Mccormackmer EDUCATION RN-C Work Phone: 1(617)673-[address] [place], [place] 5083006-09-2025 13:41-0400 Heart rate84 /minAggie Mccormackmer EDUCATION RN-C Work Phone: 1(751)141-[address] [place], [place] 5083006-09-2025 13:41-0400 SaO2% (BldA) [Mass fraction]97 %Aggie Davis EDUCATION RN-C Work Phone: 1(003)261-[address] [place], [place] 5083006-09-2025 13:41-0400 Systolic blood gjytnfeh425 mm[Hg]Aggie Mccormackmer EDUCATION RN-C Work Phone: 1(352)730-[address] [place], [place] 5083005-13-2025 09:48-0400 Respiratory rate20 /Farhat Picanova [address] [place], [place] 7045405-13-2025 09:47-0400 Diastolic blood thstsams00 mm[Hg]Brice Picanova [address] [place], [place] 7045405-13-2025 09:47-0400Heart rate78 /Farhat Brown [address] [place], [place] 7045405-13-2025 09:47-0400Mean blood nismgrqc652 mm[Hg]Brice Picanova [address] [place], [place] 7045405-13-2025 09:47-0400 Systolic blood fpirrcny193 mm[Hg]Brice Picanova [address] [place], [place] 7045405-13-2025 09:46-0400Heart rate80 /minBrice Brown [address] [place], [place] 7045405-13-2025 09:46-8226EjS6% (BldA) [Mass fraction]95 %Brice Estrella [facility]05-13-2025 09:46-0400 Diastolic blood njjwuoow24 mm[Hg]Brice Estrella [facility]05-13-2025 09:46-0400Mean blood bymriobr77 mm[Hg]Brice Estrella [facility]05-13-2025 09:46-0400 Systolic blood wvbxlvyr934 mm[Hg]Brice Estrella [address] [place], [place] 7045405-01-2025 13:23-0400Body prpbqi242.4 cmBrice Estrella DO Work Phone: 9(324)[address]05-01-2025 13:23-0400Body mass index (BMI) [Ratio]39.65 kg/x0OypanBrice Estrella DO Work Phone: 1(236)[address]05-01-2025 13:23-0400Body .08 kgBrice Estrella DO Work Phone: 1(909)6-[address] [place], [place] [address]Zkxfsaacef93-66-5987 11:53-0400Body .4 Kelsey Davis EDUCATION RN-C Work Phone: 8(099)796-[address] [place], [place] 5083004-28-2025 11:53-0400 Body dqvdhhpvaor25.8 [degF]Aggie Davis EDUCATION RN-C Work Phone: 1(309)542-[address] [place], [place] 5083004-28-2025 11:53-0400 Diastolic blood earmufdc98 mm[Hg]Aggie Davis EDUCATION RN-C Work Phone: 1(509)900-[address] [place], [place] 5083004-28-2025 11:53-0400 Heart rate92 /Castillo Davis EDUCATION RN-C Work Phone: [facility]04-28-2025 11:53-0400 Respiratory rate18 /minAggie Davis EDUCATION RN-C Work Phone: 8(574)271-[address] [place], [place] 5083004-28-2025 11:53-0400 SaO2% (BldA) [Mass fraction]96 %Aggie CHICAS Work Phone: [facility]04-28-2025 11:53-0400 Systolic blood mm[Hg]Aggie Davis EDUCATION RNLitzyC Work Phone: [facility]04-21-2025 12:12-0400 Body eycxeu404.4 Josh Naqvi MD Work Phone: [address] [place], [place] [address]Nbijlxsejn69-16-4122 12:12-0400Body mass index (BMI) [Ratio]39.65 kg/l6LmigxMathieu Naqvi MD Work Phone: 1(808)215-[address] [place], [place] [address]Nbyfanugun03-65-4785 12:12-0400Body fbpuxg75.08 kgMathieu Naqvi MD Work Phone: 1(033)733-[address] [place], [place] [address]Wznuzgpptx14-82-2737 12:12-0400Diastolic blood mm[Hg]Mathieu Naqvi MD Work Phone: 1(653)748-[address] [place], [place] [address]Csfbqdskel06-54-3498 12:12-0400Heart rate79 /min Mathieu Naqvi MD Work Phone: 1(604)036-[address] [place], [place] [address]Shjnyqoreb53-14-2627 12:12-0400Respiratory rate18 /minMatiheu Naqvi MD Work Phone: 1(409)874-[address] [place], [place] [address]Nbqnnmyivu30-54-0548 12:12-9460AvQ3% (BldA) [Mass fraction]94 %Mathieu Naqvi MD Work Phone: 1(116)022-[address] [place], [place] [address]Afkyvrodmg75-84-1310 12:12-0400Systolic blood agvmhlpb868 mm[Hg]Mathieu Naqvi MD Work Phone: [address] [place], [place] [address]Chlweznhhx39-97-1074 10:02-0400Body xkwhat347.4 cmPfreda Phillip DO Work Phone: [facility] HospitalDmpuyuirul79-08-2458 10:02-0400Body mass index (BMI) [Ratio]40.04 kg/m2Da Phillip DO Work Phone: [facility] HospitalLtwzwxtbak15-57-1263 10:02-0400Body .99 kgPadevante Phillip DO Work Phone: [facility] HospitalXbeoeiwrfz82-82-6329 10:41-0400Body mfibys921.4 cmBrice Estrella DO Work Phone: [facility] CenterHymhhvgeip79-52-5034 10:41-0400Body mass index (BMI) [Ratio]40.43 kg/r4RhivlBrice Estrella DO Work Phone: [facility] HospitalYsynoygpry75-42-8993 10:41-0400Body tomwbn22.89 kgBrice Estrella DO Work Phone: [facility] HospitalWhzwkapxxi10-28-9104 08:22-0500Body xvcdii132.4 cmPamela Susan EDUCATION RN-C Work Phone: 1(319)331-[address] [place], [place] 5083002-24-2025 08:22-0500 Body mass index (BMI) [Ratio]40.8 kg/k6Gnhdgh Susan EDUCATION RN-C Work Phone: [facility]02-24-2025 08:22-0500 Body zjlsyg61.8 kgPakirbya Susan EDUCATION RN-C Work Phone: 1(445)646-[address] [place], [place] 5083002-24-2025 08:14-0500 Body qozlewirbtr10.5 [degF]Aggie Mccormackmer EDUCATION RN-C Work Phone: 1(847)337-[address] [place], [place] 5083002-24-2025 08:14-0500 Diastolic blood jlylndyl82 mm[Hg]Aggie Mccormackmer EDUCATION RN-C Work Phone: [facility]02-24-2025 08:14-0500 Heart rate86 /minPamela Susan EDUCATION RN-C Work Phone: 1(806)363-[address] [place], [place] 5083002-24-2025 08:14-0500 Respiratory rate20 /minPamela Susan EDUCATION RN-C Work Phone: [facility]02-24-2025 08:14-0500 Systolic blood nvsyvqgn994 mm[Hg]Aggie Mccormackmer EDUCATION RN-C Work Phone: 1(397)945-[address] [place], [place] 5083002-10-2025 09:09-0500 Blood Pressure LocationPadarshan BOSS [facility]02-10-2025 09:09-0500Diastolic blood flrtwgoa10 mm[Hg]Kang BOSS [facility]02-10-2025 09:09-0500Heart rate70 /minPatrickashmir BOSS [facility]02-10-2025 09:09-0500Respiratory rate18 /minPatrickashmir BOSS [facility]02-10-2025 09:09-0500Systolic blood ftygxdvi874 mm[Hg]Kang BOSS [facility]02-03-2025 13:49-0500Body iiwpxf698.4 cmPjose franciscoa Susan EDUCATION RN-C Work Phone: 1(013)069-[address] [place], [place] 5083002-03-2025 13:49-0500 Body mass index (BMI) [Ratio]39.9 kg/d8Ozkmua Susan EDUCATION RN-C Work Phone: 1(712)819-[address] [place], [place] 5083002-03-2025 13:49-0500 Body sjantcawznp22.8 [degF]Aggie Mccormackmer EDUCATION RN-C Work Phone: 1(742)665-[address] [place], [place] 5083002-03-2025 13:49-0500 Body ttdzih53.75 kgCarlosa Susan EDUCATION RN-C Work Phone: 3(153)472-[address] [place], [place] 5083002-03-2025 13:49-0500 Diastolic blood jncsquhi21 mm[Hg]Aggie Davis EDUCATION RN-C Work Phone: 6(957)535-[address] [place], [place] 5083002-03-2025 13:49-0500 Heart rate68 /minCarlosa Susan EDUCATION RN-C Work Phone: 9(746)993-[address] [place], [place] 5083002-03-2025 13:49-0500 Respiratory rate18 /minAdansp Mccormackmer EDUCATION RN-C Work Phone: [facility]02-03-2025 13:49-0500 SaO2% (BldA) [Mass fraction]98 %Aggie Mccormackmer EDUCATION RN-C Work Phone: [facility]02-03-2025 13:49-0500 Systolic blood irqfrpgf404 mm[Hg]Aggie Mccormackmer EDUCATION RN-C Work Phone: [facility]02-03-2025 10:24-0500 Body rofnzx367.4 cmBrice Estrella DO Work Phone: [facility] HospitalLvdmfdxcgm96-04-6059 10:24-0500Body mass index (BMI) [Ratio]40.43 kg/h7EmilyBrice Estrella DO Work Phone: [facility] HospitalAznocakzqm62-40-9583 10:24-0500Body .89 kgBrice Estrlela [employer] Work Phone: [facility] HospitalRruynstuty78-76-6197 09:05-0500Body mass index (BMI) [Ratio]40.43 kg/h5Zjjfzxeyjwn Hassett DO Work Phone: [facility] HospitalIifbtkbguq68-61-3242 09:05-0500Body tknumf96.89 kgChristopher De La Rosa DO Work Phone: [facility] HospitalIiwnvajwvj83-24-0434 09:05-0500Diastolic blood aacigfem72 mm[Hg]Louisjessica De La Rosa DO Work Phone: [facility] HospitalDxppfoycui09-45-4543 09:05-0500Heart rate80 /min Christjessica De La Rosa DO Work Phone: [facility] HospitalTqpiuglmhh88-76-8860 09:05-9650AeT6% (BldA) [Mass fraction]95 %Christjessica De La Rosa DO Work Phone: [facility] HospitalOhmecrsgxd56-93-6299 09:05-0500Systolic blood wuzeddyr683 mm[Hg]Liborioer Estrella DO Work Phone: [facility] HospitalPduwodwugd72-33-6068 10:18-0500Body .4 cmPamela Susan EDUCATION RN-C Work Phone: 1(786)709-[address] [place], [place] 5083001-22-2025 10:18-0500 Body mass index (BMI) [Ratio]40.8 kg/b5Hbiagl Susan EDUCATION RN-C Work Phone: 1(113)639-[address] [place], [place] 5083001-22-2025 10:18-0500 Body .8 kgPamela Susan EDUCATION RN-C Work Phone: 1(050)212-[address] [place], [place] 5083001-22-2025 09:13-0500 Body qzvzmitxdet58.2 [degF]Aggie Susan EDUCATION RN-C Work Phone: 1(954)790-[address] [place], [place] 5083001-22-2025 09:13-0500 Diastolic blood mm[Hg]Aggie Susan EDUCATION RN-C Work Phone: 1(575)[address]01-22-2025 09:13-0500 Heart rate87 /minPamela Susan EDUCATION RN-C Work Phone: 1(973)[address] [place], [place] 3855101-22-2025 09:13-0500 Respiratory rate20 /minPamela Susan EDUCATION RN-C Work Phone: 1(624)[facility]-[address] [place], [place] 5083001-22-2025 09:13-0500 Systolic blood xmtkrkwo135 mm[Hg]Aggie Susan EDUCATION RN-C Work Phone: 1(492)[address]01-21-2025 10:31-0500 Body .4 Josh Naqvi MD Work Phone: [facility] HospitalWnrernmtmd42-40-5353 10:31-0500Body mass index (BMI) [Ratio]40.82 kg/t4CktwiMathieu Naqvi MD Work Phone: [facility] CenterMtyoqogfsj53-56-9419 10:31-0500Body dlkiux12.8 kg Mathieu Naqvi MD Work Phone: [facility] HospitalOrbfvehrng32-41-6554 21:52-0500Body temperature 97.88 [degF]Tiny Faloln [address] [place], [place] 7408412-10-2024 21:52-0500 Diastolic blood mm[Hg]Kaylinn Dokken [address] [place], [place] 7408412-10-2024 21:52-0500Heart rate72 /minKaylinn Dokken [address] [place], [place] 7408412-10-2024 21:52-0500Mean blood vouthgtd47 mm[Hg]Kaylinn Dokken [address] [place], [place] 7408412-10-2024 21:52-0500 Respiratory rate19 /minKaylinn Dokken [address] [place], [place] 7408412-10-2024 21:52-8159LdV8% (BldA) [Mass fraction]95 %Kaylinn Dokken [address] [place], [place] 7408412-10-2024 21:52-0500 Systolic blood cvxaqujw819 mm[Hg]Kaylinn Dokken [address] [place], [place] 7408412-10-2024 20:57-0500 Diastolic blood mm[Hg]Kaylinn Dokken [address] [place], [place] 7408412-10-2024 20:57-0500Heart rate61 /minKaylinn Dokken [address] [place], [place] 7408412-10-2024 20:57-0500Mean blood hhsiuolw306 mm[Hg]Kaylinn Dokken [address] [place], [place] 7408412-10-2024 20:57-0500 Respiratory rate18 /minKaylinn Dokken [address] [place], [place] 7408412-10-2024 20:57-4063SkK1% (BldA) [Mass fraction]96 %Kaylinn Dokken [address] [place], [place] 7408412-10-2024 20:57-0500 Systolic blood ucekhuhb045 mm[Hg]Kaylinn Dokken [address] [place], [place] 7408412-10-2024 19:33-0500 Diastolic blood rynwdjzx79 mm[Hg]Kaylinn Dokken [address] [place], [place] 7408412-10-2024 19:33-0500Heart rate60 /minKaylinn Dokken [address] [place], [place] 7408412-10-2024 19:33-0500Mean blood nevftlnc898 mm[Hg]Kaylinn Dokken [address] [place], [place] 7408412-10-2024 19:33-0500 Respiratory rate19 /minKaylinn Dokken [address] [place], [place] 7408412-10-2024 19:33-4177JrH8% (BldA) [Mass fraction]95 %Kaylinn Dokken [address] [place], [place] 7408412-10-2024 19:33-0500 Systolic blood wdldyogp426 mm[Hg]Kaylinn Dokken [address] [place], [place] 7408412-10-2024 19:20-0500Body nlegdbnmhqw13.06 [degF]Kaylinn Dokken [address] [place], [place] 7408412-10-2024 18:33-0500Body sakhljrykst34.24 [degF]Kaylinn Dokken [address] [place], [place] 7408412-10-2024 18:33-0500Heart rate73 /minKaylinn Dokken [address] [place], [place] 7408412-10-2024 18:33-0500 Respiratory rate18 /minKaylinn Dokken [address] [place], [place] 7408412-10-2024 18:19-0500gluc 142 mg/dLKaylinn Dokken [address] [place], [place] 1282212-10-2024 18:18-0500Heart rate73 /minKaylinn Dokken [facility]12-10-2024 18:18-0500 Respiratory rate18 /minKaylinn Dokken [address] [place], [place] 1282210-21-2024 10:53-0400Body qpsawu423.4 cmPaul Biedenbach DO Work Phone: 1(819)216-[address] [place], [place] [address]Upakfyzetr88-51-9782 10:53-0400Body mass index (BMI) [Ratio]38.08 kg/m2Paul Biedenbach DO Work Phone: 1(729)717-[address] [place], [place] [address]Hvfuccgclj48-03-5742 10:53-0400Body adtdgj48.45 kgPaul Biedenbach DO Work Phone: 1(966)[facility] [place], [place] [address]Pgfwvitpph13-95-7390 11:09-0400Body fcvysb876.4 cmPaul Biedenbach DO Work Phone: 1(444)[address] [place], [place] [address]Xwtunrvxtn53-07-3264 11:09-0400Body mass index (BMI) [Ratio]38.08 kg/m2Paul Biedenbach DO Work Phone: 1(122)7-[address] [place], [place] [address]Zitxgcctqg76-11-1856 11:09-0400Body ogenrj56.45 kgPaul Biedenbach DO Work Phone: 1(399)056-[address] [place], [place] [address]Gvnmwbhvhu76-01-4840 09:25-0400Body xjnvna552.9 cmPaul Biedenbach DO Work Phone: 1(761)[address] [place] [address]-13-2024 09:25-0400Body mass index (BMI) [Ratio]39.39 kg/m2Paul Biedenbach DO Work Phone: 1(667)874-[address] [place], [place] [address]Kjblamjbpw11-67-0768 09:25-0400Body efuzkq14.45 kgPaul Biedenbach DO Work Phone: [facility] HospitalKegrllzcre86-54-3146 11:11-0400Body kvwabs301.4 cmPaul Alison DO Work Phone: [facility] HospitalYpzxkitorn80-07-1554 11:11-0400Body mass index (BMI) [Ratio]38.08 kg/m2Padevante Phillip DO Work Phone: [facility] HospitalPlsgexmjzh88-00-3583 11:11-0400Body .45 kgDa Phillip DO Work Phone: [facility] HospitalYtikiqptcw61-91-6946 15:38-0500Body kciafx100.9 cmBrice Estrella DO Work Phone: [facility] HospitalQulfdkqjal12-55-1641 15:38-0500Body mass index (BMI) [Ratio]39.59 kg/c5Xgqeb Pj DO Work Phone: 1(821)[address] [place], [place] 8802101-30-2024 15:38-0500Body temperature 97.39 [degF]Brice Pj DO Work Phone: 1(174)[facility] [place], [place] [address]Bsutqqhmon20-75-1718 15:38-0500Body xfwhuf81.91 kgLalolaura Estrella DO Work Phone: 1(255)566-[address] [place], [place] [address]Eknrvjvozy41-29-5865 08:27-0500Heart rate77 /min Brice Estrella [address] [place], [place] 7045411-10-2023 08:27-6403OjE7% (BldA) [Mass fraction]98 %Brice Estrella [address] [place], [place] 7045411-10-2023 08:26-0500 Respiratory rate20 /minBrice Estrella [address] [place], [place] 7045411-10-2023 08:26-0500Blood Pressure LocationBrice Estrella [address] [place], [place] 7045411-10-2023 08:26-0500 Diastolic blood nmrzzcfa94 mm[Hg]Brice Estrella [address] [place], [place] 7045411-10-2023 08:26-0500Mean blood bdizkvqd80 mm[Hg]Brice Estrella [address] [place], [place] 7045411-10-2023 08:26-0500 Systolic blood ixwfjjpm965 mm[Hg]Brice Estrella [address] [place], [place] 7045411-10-2023 08:25-0500Body kxskwqefswi11.88 [degF]Brice Estrella [address] [place], [place] 7045411-10-2023 08:05-0500Blood Pressure LocationBrice Estrella [address] [place], [place] 7045411-10-2023 08:05-0500 Diastolic blood sibvzagb33 mm[Hg]Brice Estrella [address] [place], [place] 7045411-10-2023 08:05-0500Heart rate73 /minLalolaura Pj [address] [place], [place] 7045411-10-2023 08:05-0500 Respiratory rate20 /Farhat Estrella [address] [place], [place] 7045411-10-2023 08:05-2861ReN6% (BldA) [Mass fraction]95 %Brice Estrella [address] [place], [place] 7045411-10-2023 08:05-0500 Systolic blood egafabyj375 mm[Hg]Brice Estrella [address] [place], [place] 7045411-10-2023 07:30-0500Blood Pressure LocationBrice Estrella [address] [place], [place] 7045411-10-2023 07:30-0500 Diastolic blood mm[Hg]Brice Estrella [address] [place], [place] 7045411-10-2023 07:30-0500Heart rate70 /minLalolaura Pj [address] [place], [place] 7045411-10-2023 07:30-0500 Respiratory rate20 /minLalolaura Pj [facility]11-10-2023 07:30-6271NvQ4% (BldA) [Mass fraction]96 %Brice Estrella [facility]11-10-2023 07:30-0500 Systolic blood kyrqvcwq674 mm[Hg]Brice Estrella [facility]11-10-2023 06:52-0500Mean blood jqdpuhmw44 mm[Hg]Brice Estrella [facility]11-10-2023 06:49-0500Body mzikayedsmm94.88 [degF]Brice Estrella [facility]11-10-2023 06:49-0500Mean blood zxrcxagj23 mm[Hg]Brice Estrella [address] [place] [address] Encounters Encounter DateEncounter TypeCare ProviderFacilityStart: 18-31-3194borqzbitdx Kang Morelos WATERSFacility:EU BellevueStart: 05-19-2025 End: 01-65-1510zmxhwpncdhBkibsj Sue Cramer NP-C Work Phone: 1([phone])[phone]-Eccjppnze Health NeurosurgeryStart: 05-19-2025 End: 54-85-5295Psqxedu encounter procedureEric N Yoav DO-[facility] Work Phone: start: 05-17-2025 End: 46-78-2530Lhpxkk flowsheetPaul S Biedenbach DO Work Phone: [facility] [place] OtolaryngologyStart: 05-17-2025 End: 22-07-1968Ibdgnp flowsheetPaul S Biedenbach DO Work Phone: [facility] [place] OtolaryngologyStart: 05-17-2025 End: 85-13-0958yjerbjusixHETS S BIEDENBACHNot AvailableStart: 05-17-2025 End: 27-57-3097Gdqato outpatient visit 25 minutesPaul S Biedenbach DO Work Phone: [facility] [place] OtolaryngologyComment on above:Nontoxic multinodular goiter (Primary Dx); Thyroid nodule; Hearing loss, unspecified hearing loss type, unspecified laterality; Tobacco abuseStart: 05-10-2025 End: 91-89-9657dpecemssaiKowzaeoa A. JonesFacility:FTMCStart: 04-26-2025 End: 08-70-0983txiesscikoFpdasa Sue Cramer EDUCATION RN-C Work Phone: [facility] Work Phone: Start: 04-26-2025 End: 74-47-4039Imibkup encounter [facility] Gregg APRN-FNP-C-[facility] Neurology Work Phone: Start: 04-26-2025 End: 20-29-4294Czncsdkilo Naqvi MD Work Phone: [facility] [place] EndocrinologyStart: 04-26-2025 End: 81-83-2279Rnoegxkilo Naqvi MD Work Phone: [facility] [place] EndocrinologyStart: 04-26-2025 End: 81-86-0177ajsjwyofiaYQLWR F SABBAGHNot AvailableStart: 04-26-2025 End: 75-37-0330Ohnnkx outpatient visit 25 minutesAhaimee Naqvi MD Work Phone: [facility] [place] EndocrinologyComment on above:Type 2 diabetes mellitus with hyperglycemia, with long-term current use of insulin (HCC) (Primary Dx); Encounter for dietary consultation; Vitamin D deficiency; Primary hypertension ; Hyperlipemia, mixedStart: 04-15-2025 End: 56-58-4257ehrhbdtduvGcrevu SpringerFacility:FTMCStart: 04-07-2025 End: 10-20-2208Lfawvqchw department patient visitAggie Davis EDUCATION RN-C Work Phone: [phone]-Gfzfpnmhy Room Work Phone: Start: 03-22-2025 End: 54-34-1501ewukwypcgsTmckcw SpringerFacility:FTMCStart: 03-08-2025 End: 53-98-4901xdksgawtpxRftcmia R WATERSFacility:[facility] HospitalueStart: 03-08-2025 End: 66-31-5723Jarigpf encounter procedureKang BOSS [facility] start: 01-28-2025 End: 25-31-8607jqpdzprxgiIBSW [facility] Hospitaltart: 01-14-2025 End: 29-05-9150Ihjrrdy encounter procedurePayton Goodwin [facility] Work Phone: Start: 01-04-2025 End: 27-23-4677wdplkhkvttKbynjx Sue Cramer EDUCATION RN-C Work Phone: [facility] Work Phone: Start: 01-04-2025 End: 57-84-7203Qrzlhrt encounter procedureAggie Davis EDUCATION RN-C Work Phone: [facility] Physician [facility] Neurology Work Phone: Start: 12-25-2024 End: 53-24-7826Qsichnwll Result EncounterBrice Estrella DO Work Phone: [facility] External Department UnsolicitedStart: 12-25-2024 End: 85-41-4942Whklczobb Result EncounterBrice Estrella DO Work Phone: NOKZ External Department UnsolicitedStart: 12-25-2024 End: 69-69-4995Tihbebszf to same day surgery Benito Estrella [facility] Start: 12-25-2024 End: 97-79-6758nmmrthcwscMwdfh A BrownFacility:FTMCStart: 12-22-2024 End: 77-41-7785gtjswviwlbEikkql Sue Cramer EDUCATION RN-C Work Phone: [facility] Work Phone: Start: 12-22-2024 End: 05-67-9273Zbbwzior ReferredAggie Davis EDUCATION RN-C Work Phone: [facility]-LAB [facility]: 12-[facility]2024 End: 73-69-2523odfuhawtysAvsct A BrownFacility:FTMCStart: 12-08-2024 End: 93-17-1885Vrghkue encounter procedureBrice Estrella [facility] Start: 11-26-2024 End: 64-90-6555Xaeycc Kolton Estrella DO Work Phone: [phone] ORTHOStart: 11-26-2024 End: 92-80-2985Snxnnjvinnie Estrella DO Work Phone: [phone] ORTHOStart: 11-26-2024 End: 11-11-2411qutoupkrtwVFZEB A BROWNNot AvailableStart: 11-26-2024 End: 63-05-5884Iiszpje encounter procedureBrice Estrella DO Work Phone: [facility] NB ORTHOComment on above:Triceps tendonitis (Primary Dx)Start: 11-23-2024 End: 38-71-9201jrxdfsojbfVnzxwp Sue Cramer EDUCATION RN-C Work Phone: [facility] Work Phone: Start: 11-23-2024 End: 50-81-4101Lprocwj encounter procedureAggie Davis EDUCATION RN-C Work Phone: [facility] Work Phone: Start: 11-16-2024 End: 17-95-6088Vtqqnq Yue Naqvi MD Work Phone: [facility] ENDOCRINOLOGYStart: 11-16-2024 End: 15-09-2604Geargu flowsFrancine Naqvi MD Work Phone: [facility] ENDOCRINOLOGYStart: 11-16-2024 End: 14-18-4421gncfydheecCSRDC F SABBAGHNot AvailableStart: 11-16-2024 End: 22-31-8071Kngzha outpatient visit 25 minutesMathieu Naqvi MD Work Phone: [facility] ENDOCRINOLOGYComment on above:Type 2 diabetes mellitus with hyperglycemia, with long-term current use of insulin (CMS/HCC) (Primary Dx); Encounter for dietary consultation; Vitamin D deficiency; Primary hypertension (CMS/HCC); Hyperlipemia, mixed (CMS/HCC); Class 2 severe obesity due to excess calories with serious comorbidity and body mass index (BMI) of39.0 to 39.9 in adult (CMS/HCC)Start: 11-14-2024 End: 33-98-2777umsoswnifqEdkgql Sue Cramer EDUCATION RN-C Work Phone: [facility] Work Phone: Start: 11-14-2024 End: 52-10-4492Ueynlldb ReferredAggie Davis EDUCATION RN-C Work Phone: [facility] [facility]LAB Path Spec [place] HospStart: 11-09-2024 End: 59-87-3077Ddghrw flowsheetPaul S Biedenbach DO Work Phone: noms ENT SANDUSKYStart: 11-09-2024 End: 53-71-0171Nuwgxe flowsheetPaul S Biedenbach DO Work Phone: noms ENT SANDUSKYStart: 11-09-2024 End: 17-21-0670ybytlhpywdCNFYW A BROWNNot AvailableStart: 11-09-2024 End: 56-14-3938Lskldp outpatient visit 25 minutesPaul S Biedenbach DO Work Phone: noms ENT SANDUSKYComment on above:Nontoxic multinodular goiter (CMS/HCC) (Primary Dx); Thyroid nodule (CMS/HCC)Start: 11-05-2024 End: 65-02-0205Tckkfv flowsIsela Estrella DO Work Phone: NOMS ORTHOStart: 11-05-2024 End: 31-80-4954Igwong Kolton Estrella DO Work Phone: [facility]S ORTHOStart: 11-05-2024 End: 05-04-8300vjfahlmpdhENKYL A BROWNNot AvailableStart: 11-05-2024 End: 99-15-4361Bpzqbth encounter procedureBrice Estrella DO Work Phone: [phone] NB ORTHOComment on above:Triceps tendonitis (Primary Dx); Lateral epicondylitis of right elbowStart: 10-30-2024 End: 63-67-5810gjflyfpryvSvmvkt Sue Cramer EDUCATION RN-C Work Phone: [facility] Work Phone: Start: 10-30-2024 End: 78-54-9612Frypweyw ReferredAggie Davis EDUCATION RN-C Work Phone: [facility] Ctr-LAB Path Spec [place] HospStart: 10-13-2024 End: 07-44-5924Ftgovxk encounter procedurePasp Davis EDUCATION RN-C Work Phone: [facility] Ctr-Lab [place] Work Phone: Start: 10-13-2024 End: 01-53-3594stozvfbistTsvmrx Isabel Susan EDUCATION RN-C Work Phone: [facility] Work Phone: Start: 09-21-2024 End: 03-85-3981atmjhwtvbyGrpisz Isabel Susan EDUCATION RN-C Work Phone: [facility] Work Phone: Start: 09-21-2024 End: 80-88-2679Gzspcjafbi RecurringPasp Mccormackmer EDUCATION RN-C Work Phone: [facility] Ctr-Wound Care [place] Work Phone: Start: 09-14-2024 End: 23-76-7917gkpjtipqpfPfypgu Sue Cramer EDUCATION RN-C Work Phone: [facility] Work Phone: Start: 09-14-2024 End: 41-35-4132Znqhtlr encounter procedureAggie Davis EDUCATION RN-C Work Phone: [facility] Ctr-XRay [address] Work Phone: Start: 09-07-2024 End: 53-99-2445cluahjvgtqNevzrmh R WATERSFacility:EU BellevueStart: 09-07-2024 End: 70-43-8035Cccjidv encounter procedureKang BOSS [facility] [place] start: 09-03-2024 End: 30-89-6385Vkxhil flowsheetChristopher Estrella DO Work Phone: ana BELLEVUEStart: 09-03-2024 End: 66-82-4203Yolrtr flowsheetChristopher Estrella DO Work Phone: ana BEL[place]UEStart: 09-03-2024 End: 00-33-1101Kcojrhn encounter procedureChristopher Estrella DO Work Phone: ana BELLEVUEComment on above:Bilateral hand numbness Start: 09-03-2024 End: 33-24-6717cxlorajkrcEVYQPNHLFDZ HASSETTNot AvailableStart: 08-31-2024 End: 09-99-2333Rsbtai flowsIsela Estrella DO Work Phone: [facility] SWS ORTHOAOStart: 08-31-2024 End: 59-81-4729Ikmlcx Kolton Estrella DO Work Phone: [facility] SWS ORTHOAOStart: 08-31-2024 End: 86-78-8741abtmcaxpgwOaxvfk Sue Cramer EDUCATION RN-C Work Phone: [facility] Work Phone: Start: 08-31-2024 End: 49-09-5328Cfjqbhh encounter procedureAggie Davis EDUCATION RN-C Work Phone: [facility] Work Phone: Start: 08-31-2024 End: 10-94-1103Iaeuxbd encounter procedureBrice Estrella DO Work Phone: NOFI SWS ORTHOAOComment on above:Lateral epicondylitis of right elbow (Primary Dx); Right elbow pain; Triceps tendonitisStart: 08-31-2024 End: 91-88-7653pixerpbhnkAPOKL A BROWNNot AvailableStart: 08-24-2024 End: 37-85-8055olwtvshpgcCVZMYEUTNCD HASSETTNot AvailableStart: 08-20-2024 End: 22-92-4852fuljcaairqPFMY [facility] Hospitaltart: 08-20-2024 End: 93-72-5865Hvmvzk flowsheetChristopher Estrella DO Work Phone: aNA SANDUSKYStart: 08-20-2024 End: 67-70-0086Vpwwse flowsheetChristopher Estrella DO Work Phone: aNA SANDUSKYStart: 08-20-2024 End: 78-64-1718tczxjjtdgpRPAJEBUMIPZ HASSETTNot AvailableStart: 08-20-2024 End: 05-56-0588Gjzfta outpatient new 45 minutesChristopher Estrella DO Work Phone: aNA SANDUSKYComment on above:Loss of consciousness (CMS/HCC) (Primary Dx); Bilateral hand numbnessStart: 16-29-4152Quglhntmui Michele Davis EDUCATION RN-C Work Phone: [facility]-Wound Care [place] Work Phone: Start: 08-18-2024 End: 43-12-5313Cobogzvinnie Naqvi MD Work Phone: noms ENDOCRINOLOGYStart: 08-18-2024 End: 30-50-6170Mujnjvkilo Naqvi MD Work Phone: noms ENDOCRINOLOGYStart: 08-18-2024 End: 66-42-1834Tgefse outpatient new 45 Tomeka Naqvi MD Work Phone: noms ENDOCRINOLOGYComment on above:Type 2 diabetes mellitus with hyperglycemia, with long-term current use of insulin (CMS/HCC) (Primary Dx); Encounter for dietary consultation; Vitamin D deficiency; Primary hypertension (CMS/HCC); Hyperlipemia, mixed (CMS/HCC); Class 3 severe obesity due to excess calories with serious comorbidity and body mass index (BMI) of40.0 to 44.9 in adult (CMS/HCC)Start: 08-18-2024 End: 04-49-6863komxxfijumKQBXJ F SABBAGHNot AvailableStart: 94-08-9391wmqpsykqqj Kang WATERSFacility:EU MinneapolisevueStart: 01-34-7026igkncfnpjhAzzfoyfr:EU [place]uskyStart: 11-94-2133Rvl-patient / Non-visitAggie Davis EDUCATION RN-C Work Phone: [facility] Work Phone: Start: 07-07-2024 End: 88-50-1003Kkgtjsxsi department patient visitTiny Fallon [facility] Start: 05-18-2024 End: 56-88-0708vwuokiqfpfQHDF S BIEDENBACHNot AvailableStart: 05-18-2024 End: 34-36-3058Bmpkpj outpatient visit 15 Ck Phillip DO Work Phone: noms ENT SANDUSKYComment on above:Nontoxic multinodular goiter (CMS/HCC) (Primary Dx); Thyroid nodule (CMS/HCC); Hearing loss, unspecified hearing loss type, unspecified lateralityStart: 05-04-2024 End: 39-56-1065Xlimxj flowsheetPaul S Biedenbach DO Work Phone: noms ENT SANDUSKYStart: 05-04-2024 End: 54-68-6266Ginewq flowsheetPaul S Biedenbach DO Work Phone: noms ENT SANDUSKYStart: 04-13-2024 End: 47-58-1236Ikekbf flowsheetPaul S Biedenbach DO Work Phone: noms ENT SANDUSKYStart: 04-13-2024 End: 63-59-5143Ahyety flowsheetPaul S Biedenbach DO Work Phone: noms ENT SANDUSKYStart: 04-13-2024 End: 51-75-2367mjknwnwcuuZF-C Aggie Davis Work Phone: [facility] Work Phone: Start: 04-13-2024 End: 54-23-9789Wwxwxpxf ReferredNP-C Aggie Davis Work Phone: [facility] Ctr-Lab [place] Work Phone: Start: 04-13-2024 End: 12-39-2328Nlxnfi outpatient visit 25 minutesPaul S Biedenbach DO Work Phone: noms ENT SANDUSKYComment on above:Nontoxic multinodular goiter (CMS/HCC) (Primary Dx); Thyroid nodule (CMS/HCC)Start: 04-10-2024 End: 57-27-2881Inxdgq flowsheetPaul S Biedenbach DO Work Phone: noms ENT SANDUSKYStart: 04-10-2024 End: 37-25-4414Frrhpa flowsheetPaul S Biedenbach DO Work Phone: noms ENT SANDUSKYStart: 04-10-2024 End: 14-67-9466Uyfrhf outpatient visit 25 minutesPaul S Biedenbach DO Work Phone: noms ENT SANDUSKYComment on above:Thyroid nodule (CMS/HCC) (Primary Dx); Nontoxic multinodular goiter (CMS/HCC)Start: 03-26-2024 End: 99-56-7127Sqrkge flowsheetPaul S Biedenbach DO Work Phone: noms ENT SANDUSKYStart: 03-26-2024 End: 86-78-3545Ddoodl flowsheetPaul S Biedenbach DO Work Phone: noms ENT SANDUSKYStart: 03-26-2024 End: 11-91-0701qgqobgaxztAG-C Aggie Davis Work Phone: [facility] Work Phone: Start: 03-26-2024 End: 32-73-1342Lieykes encounter procedureNP-C Aggie Davis Work Phone: [facility] Ctr-Lab [place] Work Phone: Start: 03-26-2024 End: 84-85-3998Tcdkfi outpatient new 45 minutesPaul S Biedenbach DO Work Phone: noms ENT SANDUSKYComment on above:Thyroid nodule (CMS/HCC) (Primary Dx); Nontoxic multinodular goiter (CMS/HCC); Thyroid dysfunction (CMS/HCC)Start: 02-14-2024 End: 51-97-6580rxnesjljpoNL-C Aggie Davis Work Phone: [facility] Work Phone: Start: 02-14-2024 End: 78-57-2990Pgyaopiw ReferredNP-C Aggie Davis Work Phone: [facility] Ctr-LAB Path Spec [place] HospStart: 05-92-8664Hav-patient / Uyd-slfqqGM-U Aggie Davis Work Phone: [facility] [facility] Work Phone: Start: 11-11-2023 End: 11-98-2906jyrpdnlgtsWlubt A BrownFacility:FTMCStart: 18-81-6650Eioge abstractingBrice Estrella DO Work Phone: noms NB ORTHOStart: 08-27-2023 End: 55-60-7276Txwanpe encounter procedureBrice Estrella DO Work Phone: noms NB ORTHOComment on above:Left knee pain, unspecified chronicity (Primary Dx)Start: 08-22-2023 End: 13-11-9730shotbgmcefDL-C Aggie Davis Work Phone: [facility] Work Phone: Start: 08-22-2023 End: 05-34-7708Svfgsqeavy RecurringNP-C Aggie Davis Work Phone: [facility] Ctr-Baking Powder Mixer Holguin RdStart: 06-07-2023 End: 14-18-9583Dstxlakwf to same day surgery Benito Estrella [facility] Start: 58-78-5743bqjphiqhcrRXNFRF CRAMERFacility:H1 Start: 12-20-2022 End: 49-14-6360yzyhdlaztuWYOZXV CRAMERFacility:L6Bipwa: 12-15-2022 End: 52-24-2403eldnqqovwiLJORGC CRAMERFacility:S5Ecmzz: 12-01-2022 End: 37-89-0481ngoxbqoylcLEDUTL CRAMERFacility:H1Mxiny: 12-01-2022 End: 48-82-0071czzoisqtimLCAZWG CRAMERFacility:P9Wxvax: 08-06-2022 End: 96-58-5819bjnfjefwfkSLIFDU CRAMERFacility:A5Jpgbf: 07-02-2022 End: 81-52-4438drjxgarsntGVKQVW CRAMERFacility:V5Etahf: 05-26-2022 End: 04-30-7776kvemdtxdavYABESI CRAMERFacility:G8Hzaxv: 04-05-2022 End: 48-80-5381joaikmzgeiHYTQXA CRAMERFacility:Y2Ztdtp: 13-83-7245txzfsirqaz AGGIE CRAMERFacility:A7Rpreh: 03-15-2022 End: 42-45-0977pibtgibmztSYVSZK CRAMERFacility:L8Xoddg: 02-14-2022 End: 52-10-5577atkglimthmPWBFOI CRAMERFacility:U3Rcccs: 11-09-2021 End: 85-90-5327Egfnqid encounter procedureMichele Jane [facility] Procedures DateProcedureProcedure DetailPerforming ClinicianStart: 81-29-7764Hbez bld gluc mntr dev cleared fda spec home useAhaimee Naqvi MD Work Phone: Start: 76-65-9871DFUQ CAPILLARY GLUCOSE POCBrice Estrella DO Work Phone: Start: 04-85-4153YFCC YFHQ4LCytlrBrice Estrella DO Work Phone: Start: 66-20-3842Krhtx culturePamela Susan EDUCATION RN-C Work Phone: Start: 90-52-1150Ynur bld gluc mntr dev cleared fda spec home useMathieu Naqvi MD Work Phone: Start: 93-63-6530Pbuta culturePamela Susan EDUCATION RN-C Work Phone: Start: 58-68-3092Vvvud culturePamela Susan EDUCATION RN-C Work Phone: Start: 86-51-1973Fwwbo culturePamela Susan EDUCATION RN-C Work Phone: Start: 66-98-3159Jpplg X-ray of right tibia and right fibulaPamela Susan EDUCATION RN-C Work Phone: Start: 52-72-4782IGW of headPamela Susan EDUCATION RN-C Work Phone: Start: 09-03-2024 End: 29-75-9642Bmprmf emg ea extremty w/paraspinl area completeChristopher Estrella DO Work Phone: Start: 02-60-8132Cgmmnfdjswvvpt aspir&/inj interm jt/burs w/o Kavita Estrella DO Work Phone: Start: 62-74-9961Ytzsq elbow complete minimum 3 views Brice Estrella DO Work Phone: Start: 51-02-4075Suqxcxntpplvbs aspir&/inj major jt/bursa w/o usToliss DESIR Work Phone: Start: 89-09-1979Xbovkdauypzen of median nerveLalolaura Pj Start: 91-82-4845Nzoxcihnuzn of kneeJohn Mourany Start: 85-71-6426Cqgjx little finger release A-1 linda Michele Moshadyy CholecystectomyJohn Mourany History of tonsillectomyJohn Mourany HysterectomyJohn Mourany needle removed right footJohn Mourany Operation on toenailJohn Mourany Release of trigger fingerJohn Mourany right carpel tunnelJohn Mourany right knee arthroscopy x2John Mourany Plan of Treatment DateCare ActivityDetailAuthorStart: 11-18-2025 End: 28-48-0847Jmnsstx encounter ltcjliqbc94/23/2026 10:15 AM EDT Office Visit [facility] [place] [facility] [address] [place] [address] Da Phillip DO [address] [place] [address] [facility] [place] OtolaryngologyStart: 10-18-2025 End: 80-90-4861Sjxvhqy encounter dewbuhroe21/23/2026 1:50 PM EDT Office Visit [facility] [place] [facility] [address] [place] [address] Mathieu Naqvi MD [address] [place] [address] [facility] [place] EndocrinologyStart: 69-04-3375Dggtdfminmlw Vaccine: 65+ Years (3 - PPSV23 or PCV20)Pneumococcal Vaccine: 65+ Years (3 - PPSV23 or PCV20)NOM HealthcareStart: 06-01-2025 Pneumococcal Vaccine: 65+ Years (3 of 3 - PCV20 or PCV21)Pneumococcal Vaccine: 65+ Years (3 of 3 - PCV20 or PCV21)NOM HealthcareStart: 88-26-5205Veuxrepltbax Vaccine: 65+ Years (3 of 3 - PPSV23 or PCV20)Pneumococcal Vaccine: 65+ Years (3 of 3 - PPSV23 or PCV20)NOM HealthcareStart: 05-17-2025 End: 12-71-8216Tyfqqgv encounter procedureNOMS ENT SANDUSKYStart: 03-29-2025 Influenza vaccinationNOCA HealthcareStart: 03-15-2025 End: 04-59-9634Lemcgjq encounter hhviqnhur36/18/2025 11:20 AM EDT Office Visit [facility] [address] [place] [address] Mathieu Naqvi MD [address] [place] [address] [facility] ENDOCRINOLOGYStart: 01-14-2025 End: 03-30-0994Sbkuacg encounter kmtgtsayy49/19/2025 12:00 PM EDT Office Visit [facility] [place] [address] [facility] [address] [place] [address] Payton Goodwin, DO [address] [place] [address] STEFAN MARINUSKYStart: 01-05-2025 End: 09-43-7242Jpzvzrv encounter answtgwtp70/10/2025 9:15 AM EDT Office Visit [facility] [address] [place] [address] Brice Estrella DO [address] [place] [address] [facility]Start: 01-04-2025 End: 68-10-2878Elehfep encounter cjpcljsfo62/09/2025 1:15 PM EDT Office Visit [place] [address] [facility] [address] [place] [address] Olman De La Rosa, DO [address] [place] [address] STEFAN MARKYStart: 24-59-0941Eiemeyph identified in Urine by CultureUrine [facility] Centertart: 87-95-0917NyqiyVan Wert County Hospitaltart: 11-26-2024 End: 58-82-4875Ouoxfqh encounter rbpacmpgf29/01/2025 1:15 PM EDT Office Visit [facility] NB ORTHO [address] [place] [address] Brice Estrella DO [address] [place] [address] NOMS ORTHOStart: 11-16-2024 End: 07-78-0097Kyvrvdx encounter zxtnobyvp22/21/2025 10:50 AM EDT Office Visit [facility] [address] [place] [address] Mathieu Naqvi MD [address] [place] [address] NOMS ENDOCRINOLOGYStart: 23-83-4513Mcuzeshe identified in Urine by CultureUrine [facility] Start: 95-91-5060Xcyxx White Hospitaltart: 11-09-2024 End: 37-06-8282Waofgzpsfxrh / ancillary services qcdcqdwucj49/14/2025 1:45 PM EDT Ancillary Procedure [facility] MR [address] [place] [place] [address] [facility] MRStart: 11-09-2024 End: 38-19-5406Katqvta encounter wodpkzbay31/14/2025 10:00 AM EDT Office Visit [facility] [place] [address] [facility] [place] [address] Da Phillip, DO [address] [facility] [place] [address] NOMS ENT SANDUSKYStart: 11-02-2024 End: 65-67-2910Anribch encounter ofgudcncn34/07/2025 10:30 AM EDT Office Visit [facility] [address] [place] [address] Brice Estrella, DO [address] [place] [address] [facility] ORTH[facility]OStart: 17-00-7841Cxhce White Hospitaltart: 94-95-8019Gvmnniow identified in Urine by Culture Urine [facility] Centertart: 70-91-7553Pdzawdww identified in Urine by CultureUrine [facility] Start: 11-52-2420Nipgy White Hospitaltart: 10-13-2024 Insulin C-peptide measurementMartin Memorial Hospitaltart: 09-28-2024 End: 38-95-8212Devkyyq encounter bvrjutvtd77/03/2025 1:15 PM EST Office Visit [facility]AN ARROYO [address] [place] [facility] [address] Olman De La Rosa DO [address] [place] [address], [place] [address] STEFAN HUItart: 09-10-2024 End: 61-70-2595zvtyojfheo92/13/2025 1:00 PM EST Evaluation [facility] PT [address] [place] [address] TravisSofya sands, OT [address] [place] [address] NOMS SWS PTStart: 09-03-2024 End: 06-26-9347Vkzhcqz encounter procedureANA DINAComment on above:Arrived Start: 09-03-2024 End: 10-75-2237gvsojrkvjb60/06/2025 12:30 PM EST Evaluation [facility] PT [address] [place] [address] TravisSofya sands, OT [address] [place] [address] NOMS SWS PTStart: 08-31-2024 End: 56-28-1788Zmsxfwz encounter procedureNOMS SWS ORTHOAOComment on above: ArrivedStart: 08-24-2024 End: 36-64-9503Ypvsxytm Paihcnx4308/24/2024 10:45 AM EST Clinical Support STEFAN ARROYO [address] [facility] [place] [address] aFRIDA ARROYO Start: 08-20-2024 End: 97-50-2046Zxtbbcxpph [Mass/volume] in Serum or PlasmaCreatinine, Serum Lab Routine Loss of consciousness (CMS/HCC) Expected: 08/20/2024 (Approximate), Ex davidson: 08/20/2025[facility] HealthcareComment on above:Expected: 08/20/2024 (Approximate), Expires: 08/20/2025Start: 08-20-2024 End: 06-64-6760HGM, Including Recording Awake or AsleepEEG, Including Recording Awake or Asleep Neurology Routine Loss of consciousness (CMS/HCC) Expected: 08/20/2024 (Approximate), Expires: 08/20/2025[facility] HealthcareComment on above: Expected: 08/20/2024 (Approximate), Expires: 08/20/2025Start: 08-20-2024 End: 63-76-8336EAK 2 ExtremitiesEMG 2 Extremities Neurology Routine Bilateral hand numbness Expected: 08/20/2024, Expires: 08/20/2025[facility] Healthcare Work Phone: comment on above:Expected: 08/20/2024, Expires: 08/20/2025Start: 08-20-2024 End: 08-89-7188RJ Brain WO and W contrast IVMR brain w and wo contrast routine Imaging Routine Loss of consciousness (CMS/HCC) Expected: 08/20/2024, Expires: 08/20/2025[facility] HealthcareComment on above:Expected: 08/20/2024, Expires: 08/20/2025Start: 08-20-2024 End: 85-51-4303Hqpabvr encounter fkwpgledb50/23/2025 9:00 AM EST Office Visit [place] [place] [address] [place] [address] Olman De La Rosa DO [address] [place] [address] STEFAN MARKYStart: 08-18-2024 End: 691719-haumllxmhexvno D3 [Mass/volume] in Serum or PlasmaVitamin D 25 hydroxy Total Lab Routine Type 2 diabetes mellitus with hyperglycemia, with long-term current use of insulin (CMS/HCC) Expected: 08/18/2024 (Approximate), Expires: 08/18/2025[facility] HealthcareComment on above:Expected: 08/18/2024 (Approximate), Expires: 08/18/2025Start: 08-18-2024 End: 16-83-8993W-peptideC-peptide Lab Routine Type 2 diabetes mellitus with hyperglycemia, with long-term current use of insulin ([facility]) Expected: 08/18/2024 (Approximate), Expires: 08/18/2025[facility] Work Phone: Comment on above:Expected: 08/18/2024 (Approximate), Expires: 08/18/2025Start: 08-18-2024 End: 44-25-4782Zshct 1996 panel - Serum or PlasmaLipid panel Lab Routine Type 2 diabetes mellitus with hyperglycemia, with long-term current use of insulin ([facility]) Expected: 08/18/2024 (Approximate), Expires: 08/18/2025[facility] Comment on above:Expected: 08/18/2024 (Approximate), Expires: 08/18/2025Start: 08-18-2024 End: 49-83-2016Iuywrqfazgrg/Creatinine panel in random UrineMicroalbumin / creatinine urine ratio Lab Routine Type 2 diabetes mellitus with hyperglycemia, withlong-term current use of insulin ([facility]) Expected: 08/18/2024 (Approximate), Expires: 08/18/2025[facility] HospitalComment on above:Expected: 08/18/2024 (Approximate), Expires: 08/18/2025Start: 08-18-2024 End: 36-61-0554Ewhci function panelRenal function panel Lab Routine Type 2 diabetes mellitus with hyperglycemia, with long-term current use of insulin ([facility]) Expected: 08/18/2024 (Approximate), Expires: 08/18/2025[facility] Comment on above:Expected: 08/18/2024 (Approximate), Expires: 08/18/2025Start: 08-18-2024 End: 79-49-0530Hwwdkyx encounter wgtdwrqyq97/21/2025 10:30 AM EST Office Visit [facility] [address] [place] [address] Mathieu Naqvi MD [address] [place] [address] ArrivedNOMS ENDOCRINOLOGYComment on above:Arrived Start: 07-27-2024 End: 21-04-3894Xbuobvg encounter rszhfylky35/30/2024 1:00 PM EST Office Visit [facility] [address] [place] [place] [address] Chana Iglesias, AUD [address] [place] [address] [facility] AUDStart: 05-04-2024 End: 43-21-7768Smwucpg encounter cygrwlmqh55/07/2024 10:15 AM EDT Office Visit [facility] [place] [address] [place] [address] Da Phillip, DO [address] [place] [address] ArrivedNOCA ENT SANDUSKYComment on above:ArrivedStart: 04-13-2024 End: 29-47-8315Marykqa encounter okkqilbvt92/16/2024 11:00 AM EDT Office Visit NOM [place] [address] [place] [phone] Da Phillip, DO [address] [place] [address] NOMS ENT SANDUSKYStart: 04-10-2024 End: 47-91-3687Zeelxrr encounter procedureNOMS ENT SANDUSKYComment on above: ArrivedStart: 43-67-1664Eysvqgdst vaccinationInfluenza Vaccine (#1)[facility]OMS HealthcareStart: 03-26-2024 End: 44-45-8376Qwcddqgjmsl [Units/volume] in Serum or PlasmaNOMS Healthcare Comment on above:Expected: 03/26/2024 (Approximate), Expires: 03/26/2025Start: 03-26-2024 End: 01-34-7082Ucrenutvtdcefdod (T3) [Mass/volume] in Serum or PlasmaT3 Lab Routine Thyroid nodule (CMS/HCC) Expected: 03/26/2024 (Approximate), Expires: 03/26/2025[facility] Work Phone: comment on above:Expected: 03/26/2024 (Approximate), Expires: 03/26/2025Start: 03-26-2024 End: 42-74-8769Sxiifrs encounter ndomtmpzt86/29/2024 11:00 AM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 ReasonCommentsInjectionsSynvisc oneReasonCommentsThyroid NoduleFNA resultsReason CommentsThyroid NoduleLab resultsReasonCommentsThyroid NoduleFNAReasonComments Thyroid NoduleThyroid noduleReasonCommentsPainReasonCommentsFollow-upReason CommentsThyroid GesqjrBzuxehCqamqegkLgunitvaUqdpuc-eoBBXLometvSvilfksxQgoogr-jj MRI NOMS 11/09/24ReasonCommentsDiabetesReasonCommentsThyroid Nodule6 month Goals (unrecognized section and content) Goals may [...] BE BASED ON THE PRIMARY CLINICAL RECORDS. [facility] [employer] [facility]. provides no warranty or guarantee of the accuracy or completeness of information in this document.
== END 2025-05-24 09:17 | disposition home or self-care (01) ==
LOC: US 09:16
PROVIDERS: PCP Nurse Practitioner Family; Visit Provider Urology
DX: N28.1 Cyst of kidney, acquired (principal)
CPT/HCPCS: 76775

== ENCOUNTER 2025-07-01 12:09 | Outpatient (OUT) | payer MEDICARE, SELFPAY ==
--- OUTSIDE RECORDS SUMMARY | 2025-06-23 19:49 | XMS_ITS | Continuity of Care Document ---
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 issues as well as having objective findings such as Candido's as well as hyperreflexia. And so for this and like to obtain a MRI cervical spine. Once all this is completed like to see her back for continued session of her symptom complex. All questions were answered to the satisfaction of the patient she is in agreement the above plan. Author Dinah Sepulveda [facility]ored[facility] 2024 8:17amShe has CKD due to longstanding DM with HTN with baseline serum creatinine 1.5 mg/dL. I discussed with her importance of good DM and HTN control to slow down the progression CKD. I have advised her to avoid NSAIDs including Motrin. Her blood pressure is controlled and she appears to be mildly hypervolemic. I have advised her to limit her fluid intake to 50 ounces a day and continue to take current dose of the hydrochlorothiazide and Lasix Also advised her to monitor blood pressure at home and call office if stays above 140 over 90 mmHg. She has controlled DM. Advised her continue follow with Dr. Naqvi for DM management. I advised her continue to take lisinopril, Ozempic and Jardiance for renal protection. She has a secondary hyperparathyroidism due to vitamin D deficiency. Will continue oral vitamin D. She follows with Dr. Alvarez for surveillance. And have a follow-up appointment. Will continue statins. Advised to continue follow with PCP for monitoring of LFTs and lipid profile. She has hyperuricemia due to CKD but denies any gout flare. Will continue to monitor without any medication. Future Tests Future scheduled test information is unavailable Pending Tests Test Name Ordered Date Scheduled Date Comprehensive Metabolic Panel April 26 2:52pm XR lumbar spine 6V w bendingOctober 2024 12:48pmRenal Function Panel June 07, 2025 2:43pm6 MonthsRenal Function PanelNov2024 2:41pm Future Visits Future appointment information is unavailable Future Procedures Procedure Name Ordered Date Scheduled Date A1C with Estimated Average Glu April 26 2:52pm MagnesiumSeptember 2024 2:52pmDipstick and MicroscopicNovember 2024 2:41pmDipstick and MicroscopicNovember 2024 2:43pm6 MonthsHemogram CBC Without DiffNovember 2024 2:41pmHemogram CBC Without DiffNovember 2024 2:43pm6 MonthsMagnesiumNov2024 2:41pmMagnesiumNovember 2024 2:43pm6 MonthsProtein Creat Ratio Ur RandomNov2024 2:43pm6 MonthsProtein Creat Ratio Ur RandomNovember 2024 2:41pmParathyroid Hormone IntactNov2024 2:41pmParathyroid Hormone IntactNov2024 2:43pm6 MonthsUric AcidNov2024 2:41pmUric AcidNovember 2024 2:43pm6 MonthsVitamin D 25 Hydroxy TotalNov2024 2:41pmVitamin D 25 Hydroxy TotalNov2024 2:43pm6 Months Future Medications Future medication information is unavailable Patient Instructions Instruction Admit Date Taking care of cuts, scrapes, and punctu re wounds April 07, 2025 5:40pm
--- OUTSIDE RECORDS SUMMARY | 2025-07-01 12:15 | XMS_ITS | Clinical Summary ---
Author Organization [facility] Address [address] [place] [address] Phone Care Team Providers Care Master Cook Name Role Phone Carter Granger MD Primary Care Provider [phone] Social History Tobacco UseTypesPacks/DayYears UsedDateSmoking Tobacco: Never Assessed CommentsUnknownSex and Gender InformationValueDate RecordedSex Assigned at Not on fileLegal MtbGctraj29/25/2022 2:55 PM ESTGender IdentityNot on fileSexual OrientationNot on file Plan of Treatment Not on file Care Teams Team MemberRelationshipSpecialtyStart DateEnd Date Carter Granger MD [address] [facility] [place] [id number] PCP - [facility]01/27/20
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
--- OUTSIDE RECORDS SUMMARY | 2025-07-01 12:15 | XMS_ITS | Clinical Summary ---
Author Organization [facility] Address [address] [place] [address] Care Team Providers Care Bat Carrier Name Role Phone Aggie Machuca CNP Primary Care Provider [phone] Allergies Active AllergyReactionsCriticalityNoted DateCommentsCodeineRash,UnknownLow 07/13/2021 Other Reaction(s): Nausea Propoxyphene N-RxmpzawbfrvfgLrjpp48/23/2025Hydrocodone-AcetaminophenUnknown Ntyhpg7107/30/2014 Other Reaction(s): Unknown LzyvdzoheUdwtejfj32/23/8113SndoeogpqhzZcjprnxPyyvtq08/02/2015 Other Reaction(s): Difficulty breathing at rest, hives, hives, Unknown Oxycodone-UilrnagwkijvkHkmmt34/23/2025PropoxypheneItching,UnknownMedium 11/30/2016 Medications MedicationSigDispense QuantityRefillsLast FilledStart DateEnd DateStatus [...] mouth at bedtime.11/01/2024tive Active Problems ProblemNoted DateDiagnosed FzpkMramem69/03/2025MI 31.0-31.9,adult01/28/2025KD (chronic kidney disease)01/28/2025H/O blthlzzfyqxlgvttvtva21/03/2025 Gyctdbcbvaxulj36/03/2025Lipoma of back01/28/2025MMT (medial meniscus tear) 01/28/20254783Cizgrseww45/06/2025ack pain08/03/2024enign essential hypertension 08/03/2024Diabetes rlcnbohw53/06/9206Tjbiyuwzowkx79/06/2025HTN (hypertension) 08/03/2024Idiopathic peripheral tdbagsfxoa90/06/2025Kidney stone08/03/2024 Myocardial zmjuvmg6708/03/20248211Ggzlcjqlt35/06/2025Pure hypercholesterolemia 08/03/20245408Zlweid40/06/2025Tobacco abuse08/03/2024Right leg pain11/30/2016Work related bvfvwg8311/30/2016 Family History Medical HistoryRelationNameCommentsHeart failureFatherHeart failureMotherHeart failurePaternal [...] Last Filed Vital Signs Vital SignReadingTime TakenCommentsBlood Tzmukvdj973/7607 1:36 PM EDT Bxhfv5798 1:36 PM EDTTemperature--Respiratory Rate--Oxygen Boovdwlscb19% 01/28/2025 1:36 PM EDTInhaled Oxygen Concentration--Crguif60.6 kg (202 lb) 01/28/2025 1:36 PM FGILqiepq347.4 cm (5')01/28/2025 1:36 PM EDTBody Mass Index 39.4507 1:36 PM EDT Plan of Treatment Health MaintenanceDue DateLast DoneCommentsCT Tvgxsgfnwjcv55/12/1955Colonoscopy 5Colorectal Cancer Tumfwrrev82/12/1955Diabetes: Hemoglobin A1C 1954FIT-DNA1954FIT1954FOBT1954Medicare Annual Wellness (AWV)1954Exqwnchduasqs83/12/1955Diabetes: Retinopathy Vpbdttuid82/12/1965 Depression Qkzhpfezz41/12/1967Diabetes: Urine Protein Rvrwspkkz94/12/1974 Qddjdbwgq80/12/1995Fall Risk Lwuxdprhx24/12/2020COVID-19 Vaccine ( season)09/, 11/22/2020Influenza Vaccine (#1)2025 06/30/2023, 10/30/2022, 05/31/2022, Additional history existsPneumococcal Vaccine: 50+ Years (3 of 3 - PCV20 or PCV21), 07/29/2018 Adult Ikiagsz86Zoster AvebcnwoEykniafay92/14/2024, 01/11/2024, 12/27/2023HIB VaccinesAged OutNo longer eligible based [...] Teams Team MemberRelationshipSpecialtyStart DateEnd Aggie Machuca CNP [address] [place] [address], [place] [address] PCP - GeneralFamily Tseisyrm04/20/24
--- OUTSIDE RECORDS SUMMARY | 2025-07-01 12:15 | XMS_ITS | Clinical Summary ---
Author Organization [facility] Address [address] [place], [place] [address] Care Team Providers Care Sketcher Name Role Phone Kory Gallagher DO Primary Care Provider Allergies Active AllergyReactionsCriticalityNoted DateCommentsPropoxyphene N-Acetaminophen Zudvdnc5808/06/2014Propoxyphene QkrPjoufye52/05/8084SxptawngdrdSvlpttb37/02/2015 Hydrocodone-OffusarcwzhuuSfckwrv82/02/2015 Medications MedicationSigDispense QuantityRefillsLast FilledStart DateEnd DateStatus metFORMIN (GLUCOPHAGE) 1,000 mg tablet Take 1,000 mg by mouth twice daily with meals.Active lisinopril (ZESTRIL, PRINIVIL) 5 mg tablet Take 5 mg by mouth once daily.Active simvastatin (ZOCOR) 40 mg tablet Take 40 mg by mouth daily at bedtime.Active NITROGLYCERIN SUBLINGUAL Dissolve 0.4 mg under the tongue as needed.Active IBUPROFEN (ADVIL ORAL) Take by mouth as needed.Active insulin glargine (LANTUS) 100 unit/mL injection Inject subcutaneously daily at bedtime. NOT SURE WHAT KIND OF INSULINActive esomeprazole (NEXIUM) 20 mg capsule Take 20 mg by mouth DAILY (6 AM).Active aspirin, enteric coated (ASPIRIN, ENTERIC COATED) 81 mg EC tablet Take 81 mg by mouth once daily.Active SITAGLIPTIN PHOS/METFORMIN HCL (JANUMET ORAL) Take by mouth.Active Active Problems ProblemNoted DateDiagnosed DateWork related twcoki2211/30/2016Right leg pain 11/30/2016Tobacco abuseDiabetes mellitusMyocardial infarctArthritisBack pain DyslipidemiaHTN (hypertension)Kidney stonePneumoniaStroke Family History Medical HistoryRelationCommentsCOPDFatherDiabetesFatherEmphysemaFatherGlaucoma FatherHeartFatherCHFdementiaFatherCancerMaternal GrandmotherArthritisMotherHeart MotherpacemakerHypertensionMotherSeizuresMotherHeartPaternal GrandmotherCHFLung Son 2RelationStatusCommentsFatherAliveMaternal GrandfatherDeceasedMaternal GrandmotherMotherAlivePaternal GrandmotherSon 1AliveSon 2 Social History Tobacco UseTypesPacks/DayYears UsedDateSmoking Tobacco: Every DayCigarettes1.544 Smokeless Tobacco: NeverAlcohol UseStandard Drinks/WeekCommentsNo0 (1 standard drink = 0.6 oz pure alcohol)CommentsNoSex and Gender InformationValue Date RecordedSex Assigned at BirthNot on fileLegal KdwKbyyun20/02/2015 8:26 AM ESTGender IdentityNot on fileSexual OrientationNot on fileOccupationIndustryJob Start DateJob End DatemachinistNot on fileNot on fileNot on file Last Filed Vital Signs Vital SignReadingTime TakenCommentsBlood Dddprxoj183/70011/30/2016 10:33 AM EDT Csobt7463/05/2017 10:33 AM KQYPypuvuoljkr95.1 ??C (97 ??F)08/06/2014 9:39 AM EST Respiratory Tmqy765911/30/2016 10:33 AM EDTOxygen Mxsopohwpx55%08/06/2014 9:39 AM ESTInhaled Oxygen Concentration--Mysbnk34.8 kg (145 lb)11/30/2016 10:33 AM EDT Grudqo198.4 cm (5')11/30/2016 10:33 AM EDTself report ht/wtBody Mass Index28.32 11/30/2016 10:33 AM EDT Plan of Treatment Health MaintenanceDue DateLast DoneCommentsAnxiety Zdvpfdkie38/12/1973Depression Zhlndwlrv14/12/1973Hepatitis C Diwkhhbzf18/12/1973DTaP,Tdap,Td Vaccine (1 - Tdap)1973Mammogram Imjovwfeg59/12/1995CT Occsovqsodit05/12/2000Cologuard (FIT-DNA)09/09/19999341Hwcqbzqhwqc53/12/2000Colorectal Cancer Dctwnxpzj11/12/2000 Diabetes Vpqxghklx97/12/2000Fecal Occult Blood1999Lipid Screening 09/09/19996840Wuoxkujdvvfwq68/12/2000Pneumococcal Vaccine: 50+ (1 of 1 - PCV) 2004Shingrix Vaccine (1 of 2)2004Bone Density Tprczbzzw07/12/2020 Advance Directive Kgvgafcvgg61/01/2025ovid-19 Vaccine (1 - 2024-26 season) 2025Influenza Vaccine (#1)2025RSV Vaccine (1 - 1-dose 75+ series) 2029 Insurance MemberSubscriberPlan / Payer (Effective 2022-Present)Name:Virgen Harris Relation to Subscriber:SelfName:Virgen Harris Payer ID:[id number] (NAIC) Group ID:Not on file Type:[facility] Address: [place] [id number] Care Teams Team MemberRelationshipSpecialtyStart DateEnd Date Kory Gallagher DO PCP - GeneralFamily Medicine07/30/14
--- OUTSIDE RECORDS SUMMARY | 2025-07-01 12:18 | XMS_ITS | CCD ---
Author Organization [facility] Care Team Providers Care Skiing Instructor Name Role Phone AGGIE FU Primary Care [...] Unavailable Aretha Valadez APRN Attending Provider Susan ADMINISTRATIVE ASSISTANT COORDINATOR-C, Aggie Isabel Primary Care Provider [phone] Olman De La Rosa DO Attending Provider [phone] Susan ADMINISTRATIVE ASSISTANT COORDINATOR-C, Aggie Isabel Primary Care Provider [phone] Aretha Valadez APRN Attending Provider Susan ADMINISTRATIVE ASSISTANT COORDINATOR-C, Aggie Isabel Primary Care Provider [phone] Olman De La Rosa DO Attending Provider Aretha Valadez APRN Attending Provider Dinah Sepulveda MD Attending Provider [phone] Ponce Silvestre Other Provider Donya WRAY, aimee Other Provider Jose Nair DO Attending Provider Unavailab Jose Wiggins DO Attending Provider Susan ADMINISTRATIVE ASSISTANT COORDINATOR-C, Aggie Hall Attending Provider Sue Henning Unavailable Unavailable Carter Granger MD Primary Care Provider Susan ADMINISTRATIVE ASSISTANT COORDINATOR-C, Aggie Hall Primary Care Provider [phone] PONCE SILVESTRE Attending Unavailable PONCE SILVESTRE Attending Unavailable Payton Goodwin DO Attending Provider Susan ADMINISTRATIVE ASSISTANT COORDINATOR-C, Aggie Hall Primary Care Provider [phone] Sofya Rosen APRN Emergency Provider [phone] Aggie Davis Attending Unavailable Aggie Davis Admitting Unavailable Sofya Rosen Admitting Unavailable Sofya Rosen Attending Unavailable Aggie Davis Primary Care Unavailable Nirmala, Eduardab A Consulting Unavailable DerickDinah Admitting Unavailable Dinah Sepulveda Attending Unavailable Aggie Davis Primary Care Unavailable Mathieu Naqvi Consulting Unavailable Aretah Valadez Admitting Unavailable Aretha Valadez Attending Unavailable Aggie Davis Primary Care Unavailable Olman De La Rosa Admitting Unavailab le Olman De La Rosa Attending Unavailab Aggie Luna Primary Care Unavailable Aretha Valadez M Admitting Unavailable Aretha Valadez Attending Unavailable Aggie Davis Isabel Primary Care Unavailable Aggie Davis Attending Unavailable Aggie Davis Admitting Unavailable Jose Nair Attending Unavailable Jose Nair Admitting Unavailable Olman De La Rosa DO Unavailable [phone] Susan WALTERS-C, Aggie Hall Primary Care Provider [phone] Cristino BUTLER-INVESTOR RELATIONS ASSOCIATE-Kala Stevens Attending Provider Aggie Davis MD Unavailable Carter Granger MD Primary Care Provider MATHIEU NAQVI Attending Unavailable DONYA, AHMAD F Referring Unavailable ESTRELLA, OLMAN Attending Unavailable SUSAN, AGGIE Referring Unavailable ESTRELLA, CHRISTOPHER Referring Unavailable BROWN, BRICE A Attending Unavailable BROWN, BRICE A Referring Unavailable BROWN, BRICE A Referring Unavailable ESTRELLA, MALICKER Attending Unavailable BIEDENBACH, DA Rubio Attending Unavailable BROWN, BRICE A Attending Unavailable BROWN, BRICE A Referring Unavailable BIEDENBACH, DA Rubio Attending Unavailable SUSAN, AGGIE Referring Unavailable BROWN, BRICE A Referring Unavailable DONYA, AHMAD F Attending Unavailable DONYA, AHMAD F Referring Unavailable BROWN, BRICE A Attending Unavailable BROWN, BRICE A Referring Unavailable DONYA, AHMAD F Attending Unavailable BIEDENBACH, DA Rubio Attending Unavailable Kang BOSS Attending Unavailable Carter Granger Referring Unavailable Brown, Brice A Admitting Unavailable Brown, Brice A Attending Unavailable Brown, Brice A Referring Unavailable Brown, Brice A Admitting Unavailable Brown, Brice A Attending Unavailable Brown, Brice A Referring Unavailable Kang BOSS Attending Unavailable Jori Cason DO Attending Provider [phone] Rafi Wang. Referring Unavailable Rafi Wang Attending Unavailable Ashley Ospina Admitting Unavailable Bhavesh, Ashley Attending Unavailable AGGIE DAVIS S Referring Unavailable Ospina, Ashley Attending Unavailable Ospina, Ashley Admitting Unavailable Rafi Wang Attending Unavailable Rafi Wang Referring Unavailable Bhavesh, ABHILASH Ramirez Attending Unavailabl e SUSAN, AGGIE S Referring Unavailable ABHILASH Ospina Admitting Unavailabl e Bhavesh, ABHILASH Ashley Admitting Unavailabl e Bhavesh, ABHILASH Ashley Attending Unavailabl e Carter Granger Referring Unavailable Kang BOSS Attending Unavailable Brown, Brice A Admitting Unavailable Brown, Brice A Attending Unavailable Brown, Brice A Referring Unavailable Kang BOSS Attending Unavailable ABHILASH Ospina Ashley Admitting Unavailabl e Bhavesh, ABHILASH Ashley Attending Unavailabl e Susan BEEBEC, Aggie Hall Primary Care Provider Sofya Rosen APRN Emergency Provider Cristino BUTLER-INVESTOR RELATIONS ASSOCIATE-Kala Stevens Attending Provider Jori Cason DO Attending Provider Dinah Sepulveda MD Attending Provider Allergies Allergy ClassificationReported Allergen(s)Allergy TypeDate of OnsetReaction(s) Facility (17 sources)Acetaminophen / HYDROcodone; Translations: [acetaminophen-hydrocodone]Drug Allergyitching , sick to [facility] (17 sources)Acetaminophen / oxyCODONE; Translations: [acetaminophen-oxycodone] Drug Allergysleeps a long [facility]German [facility] (17 sources)acetaminophen / propoxyphene; Translations: [acetaminophen-propoxyphene]Drug AllergyUniversity [facility] (20 sources)Codeine; Translations: [codeine]Drug Fzzncik72-45-6840QgdnKztorfOhioHealth [facility] (20 sources)Penicillins; Translations: [penicillins]Drug lcaetem46-29-1532 Difficulty breathing at rest, [facility] (20 sources)Propoxyphene; Translations: [propoxyphene]Drug Fqorlqd16-29-3050 Itching, [facility] (1 source)PropoxypheneDrug Stxzxxr31-95-2084Rlh [facility] (1 source)ZOLMitriptanDrug Yzewwyn22-03-4946Pyc [facility] (1 source)Darvocet-N 100Drug allergy (disorder)18-36-7730Fgi [facility] (20 sources)Acetaminophen / HYDROcodone; Translations: [HYDROCODONE-ACETAMINOPHEN]Drug Fkljuki61-10-8884KlxvtsiPWUG Healthcare (20 sources)Acetaminophen / oxyCODONE; Translations: [OXYCODONE-ACETAMINOPHEN] Drug Wlrnmea27-42-6760[facility] (20 sources)HYDROcodoneDrug Ttjjkkh78-72-2855EfvewhwUWSU Healthcare (20 sources)traMADolDrug Sylsyqn09-86-4954MJTB [facility] (15 sources)Acetaminophen; Translations: [acetaminophen]Drug Ffwxkwz92-37-8865 [facility] (20 sources)oxyCODONE; Translations: [oxycodone]Drug Xfrgyhl32-53-4497WsqttwGrant Hospital (19 sources)Penicillin; Translations: [penicillin G]Drug Uhijmof49-03-5161cogki itchingMercy Health Anderson Hospital (20 sources)ZOLMitriptan; Translations: [zolmitriptan]Drug Kwgojex88-00-9445 felt like I was on [facility] (17 sources)predniSONE; Translations: [prednisone]Drug Epjxaab41-80-3973Otmpvvwu [facility] (20 sources)metFORMIN; Translations: [METFORMIN]Drug Ouoshcs74-44-4531Ircmbiai [facility] (1 source)PROPOXYPHENE N-ACETAMINOPHEN; Translations: [PROPOXYPHENE N-ACETAMINOPHEN]Propensity to adverse reactions to drug (disorder)08-20-2024 [facility] (1 source)CodeineDrug Ivvhqgz02-72-7855NvbnytebrMercy Health Anderson Hospital [facility] (1 source)HYDROcodoneDrug Npymrhb90-32-4066WmbqldtcwMercy Health [facility] (1 source)metFORMINDrug Ucknjaq97-86-4958BiewjpeqiMercy Health [facility] Hospital [facility] (1 source)PropoxypheneDrug Ptfppxy15-51-4132QkgyynqwhMercy Health Anderson [facility] Medications Current Medications MedicationDrug Class(es)DatesSig (Normalized)Sig (Original)0.25 MG, 0.5 MG Dose 3 ML semaglutide 0.68 MG/ML Pen Injector [Ozempic] (5 sources)Start: 80-99-6730Egfzpdi 2 mg/3 mL (0.25 mg or 0.5 mg dose) subcutaneous solution See Instructions, Sundays, Refills(s) 0 Start Date: 09/07/24 Status: Ordered Medication Dispense Status: Completed Total Allowed Fills:1 Fills Dispensed: 0Start: 10-15-5414Umtechc 2 mg/3 mL (0.25 mg or 0.5 mg dose) subcutaneous solution See Instructions, Sundays, Refills(s) 0 Start Date: 09/07/24 Status: Ordered Repeat number: 1Start: 25-83-9515Rocetzh 2 mg/3 mL (0.25 mg or 0.5 mg dose) subcutaneous solution See Instructions, Refills(s) 0 Start Date: 09/07/24 Status: Orderedacetaminophen 325 mg oral capsule (7 sources)Start: 61-94-3913dukg 1 capsule by mouth every six hours as needed Acetaminophen 325 mg capsule Active 325 MG PO Every 6 hours as needed November 22, 2024 11:00pm Complies with drug [id number] 200 actuat albuterol 0.09 mg/actuat metered dose inhaler (20 sources)beta2-Adrenergic AgonistStart: 96-28-7552Aqubxhtro Sulfate 90 mcg/actuation HFA aerosol inhaler Active 2 INH INHALATION Four times daily as n eeded for shortness of breath or wheezing August 19, 2024 12:00am Complies with drug therapyStart: 45-00-4097gmcimgoia HFA 90 mcg/act inhaler 12/11/2023 ActiveAlbuterol (Eqv-Proventil HFA) 90 mcg/inh inhalation aerosol (5 sources)Start: 88-85-9852Iouegimly (Eqv-Proventil HFA) 90 mcg/inh inhalation aerosol See Instructions, Refills(s) 0 Start Date: 09/07/24 Status: Ordered Medication Dispense Status: Completed Total Allowed Fills: 1 Fills Dispensed: 0 Start: 68-78-9991Empfrcahm (Eqv-Proventil HFA) 90 mcg/inh inhalation aerosol See Instructions, Refills(s) 0 Start Date: 09/07/24 Status: Ordered Repeat number: 1 Start: 75-84-8613Ijiazasdz (Eqv-Proventil HFA) 90 mcg/inh inhalation aerosol See Instructions, Refills(s) 0 Start Date: 09/07/24 Status: Orderedalendronic acid 70 mg oral tablet (20 sources)BisphosphonateStart: 11-74-3437whzo 1 tablet by mouth every week Alendronate 70 mg tablet Active 70 MG PO every week August 19, 2024 12:00am Complies with drug therapyaspirin 81 mg delayed release oral tablet (20 sources)Platelet Aggregation Inhibitor, Nonsteroidal Anti-inflammatory Drug Start: 14-31-1438echn 1 tablet by mouth once dailyAspirin (Aspir-81) 81 mg Tablet,Delayed Release (Dr/Ec) Active 81 MG PO Daily October 02, 2017 12:00am Complies with drug therapyStart: 09-27-1561mbdr 81 mg by mouth once dailyaspirin 81 mg, Oral, Daily, Refills(s) 0, Other (see comment) Start Date: 10/5/16 Status: Ordered Medication Dispense Status: Completed Total Allowed Fills: 1 Fills Dispensed: 0ASPIRIN 81 MG chewable tablet 1 (one) time each day at the same time ActiveBlood Glucose Monitoring Suppl (True Metrix Air Glucose Meter) w/Device kit (20 sources)Start: 07-01-2023 End: 90-59-2167Kmeri Glucose Monitoring Suppl (True Metrix Air Glucose Meter) w/Device kit 07/01/2023 11/05/2024 DiscontinuedStart: 41-33-0074Kapwi Glucose Monitoring Suppl (True Metrix Air Glucose Meter) w/Device kit 07/01/2023 Active Start: 59-93-0053Ifrhk Glucose Monitoring Suppl (True Metrix Air Glucose Meter) w/Device kitbusPIRone hydrochloride 7.5 mg oral tablet (20 sources)Start: 40-52-9210zhmd 1 tablet by mouth twice dailyBuspirone 7.5 mg tablet Active 7.5 MG PO Twice daily August 19, 2024 12:00am Complies with drug therapyStart: 59-43-3069wleu 75 mg by mouth twice dailybusPIRone 75 mg, Oral, BID, Refills(s) 0, Anxiety Start Date: 06/07/23 Status: OrderedStart: 67-06-5266uofSODisc (Buspar) 7.5 MG tablet every 12 (twelve) hours 04/23/2023 Activecephalexin 500 mg oral capsule (1 source)Cephalosporin AntibacterialStart: 06-65-9949cdwv 1 capsule by mouth every twelve hourscephalexin 500 mg Cap 500 mg = 1 cap(s), Oral, q12hr, # 20 cap(s), Refills(s) 0, Pharmacy: [facility], 152, cm, 07/07/24 18:23:00 EST, Height/Length Dosing, 94.1, kg, 07/07/24 18:23:00 EST, Weight Dosing Start Date: 07/07/24 Status: OrderedChlorpheniramine / Ibuprofen / Pseudoephedrine (7 sources)alpha-Adrenergic Agonist, Histamine-1 Receptor Antagonist, Nonsteroidal Anti-inflammatory DrugStart: 13-36-3671edni 1 tablet by mouth once dailyAdvil Allergy Sinus oral tablet 1 tab(s), Oral, Daily, Refill(s) 0, Allergy symptoms Start Date: 12/08/24 Status: Ordered Medication Dispense Status: Completed Total Allowed Fills: 1 Fills Dispensed: 0Start: 01-14-2581wsqu 1 tablet by mouth once dailyAdvil Allergy Sinus oral tablet 1 tab(s), Oral, Daily, Refill(s) 0, Allergy symptoms Start Date: 12/08/24 Status: Ordered Repeat number: 1Start: 97-09-1929ahrq 1 tablet by mouth every six hours as neededAdvil Allergy Sinus oral tablet 1 tab(s), Oral, q6hr as needed for cold symptoms Start Date: 09/19/20 Status: OrderedStart: 67-64-4039bkxm 1 tablet by mouth every six hours as neededAdvil Allergy Sinus oral tablet 1 tab(s), Oral, q6hr as needed for cold symptoms Start Date: 09/19/20 Status: Orderedclobetasol propionate 0.0005 mg/mg topical ointment (14 sources)CorticosteroidStart: 49-49-2212Eqkuyjtgnr 0.05 % ointment Active 1 APPLIC TOPICAL Twice daily 60 14 3 August 19, 2024 12:00am Complies with drug therapyContinuous Glucose Sensor (Dexcom G7 Sensor) misc (18 sources)Start: 25-12-5446Msbqttcahy Glucose Sensor (Dexcom G7 Sensor) misc 10/16/2024 ActiveStart: 42-74-1647Rkowjcutfn Glucose Sensor (Dexcom G7 Sensor) [facility] 10/16/2024 ActiveCpap (Continuous Positive Airway Pressure) unit (8 sources)Start: 03-82-9494Phaq (Continuous Positive Airway Pressure) unit Active 0 .Route 1 0 January 18, 2025 1:58pm nocturnal pulse ox dx hypoxia , only test with PAP mask on.Start: 23-73-2667Qcwy (Continuous Positive Airway Pressure) unit Active 0 .Route 1 0 January 18, 2025 2:58pm nocturnal pulse ox dx hypoxia , only test with PAP mask on.Start: 22-31-7345Vahv (Continuous Positive Airway Pressure) unit Active 0 .Route 1 January 18, 2025 2:58pm nocturnal pulse ox dx hypoxia , only test with PAP mask on.Start: 01-18-2025 End: 07-00-7101Etew (Continuous Positive Airway Pressure) unit Discontinued 0 .Route 1 0 January 17, 2025 11:00pm January 18, 2025 1:58pm nocturnal pulse ox dx hypoxia , only test with PAP mask on.Start: 01-18-2025 End: 26-72-2899Ogvd (Continuous Positive Airway Pressure) unit Discontinued 0 .Route 1 0 January 18, 2025 12:00am January 18, 2025 2:58pm nocturnal pulse ox dx hypoxia , only test with PAP mask on.Start: 01-18-2025 End: 61-03-9612Hfji (Continuous Positive Airway Pressure) unit Discontinued 0 .Route 1 January 18, 2025 12:00am January 18, 2025 2:58pm nocturnal pulse ox dx hypoxia , only test with PAP mask on.cyclobenzaprine hydrochloride 5 mg oral tablet (20 sources)Muscle RelaxantStart: 15-41-3821unaq 1 tablet by mouth twice daily as neededCyclobenzaprine 5 mg tablet Active 5 MG PO Twice daily as needed November 22, 2024 11:00pm Complies with drug therapyBenadryl (5 sources)Histamine-1 Receptor AntagonistStart: 73-32-6415fxie 1 tablet by mouth once daily at bedtimeBenadryl 1 tab, Oral, Once a day (at bedtime), Refills(s) 0, Allergy symptoms Start Date: 09/07/24 Status: Ordered Medication Dispense Status: Completed Total Allowed Fills: 1 Fills Dispensed: 0Start: 79-18-1150hmov 1 tablet by mouth once daily at bedtimeBenadryl 1 tab, Oral, Once a day (at bedtime), Refills(s) 0, Allergy symptoms Start Date: 09/07/24 Status: Ordered Repeat number: 1Start: 18-37-9618Vmkbaxfe See Instructions, Refills(s) 0 Start Date: 09/07/24 Status: Orderedempagliflozin 25 mg oral tablet (20 sources)Sodium-Glucose Cotransporter 2 InhibitorStart: 10-02-2017 End: 04-43-0876gcad 1 tablet by mouth once dailyEmpagliflozin 25 mg tablet Active 25 MG PO Daily August 31, 2024 1:57pm dm Complies with drug therapy Ergocalciferol (20 sources)Provitamin D2 CompoundStart: 21-68-7462Zcltire D2 qWeek, Refills(s) 0, Prophylaxis Start Date: 12/08/24 Status: Ordered Medication DispenseStatus: Completed Total Allowed Fills: 1 Fills Dispensed: 0Start: 30-07-9569Mknlkdb D2 qWeek, Refills(s) 0, Prophylaxis Start Date: 12/08/24 Status: Ordered Repeat number: 1Start: 18-57-1385Bulsulunwphrpl (Vitamin D2) 1,250 mcg (50,000 unit) capsule Active 43833 UNIT PO every week November 22, 2024 11:00pm Complies with drug therapyStart: 11-16-2024 End: 60-62-3296wrps 1 capsule by mouth every weekergocalciferol (Vitamin D-2) 1.25 MG (57351 UT) capsule Indications: Type 2 diabetes mellitus with h yperglycemia, with long-term current use of insulin ([facility]) Take 1 capsule (1.25 mg) by mouth 1 (one) time per week 12 capsule 1 11/16/2024 05/03/2025 Activeferrous sulfate 325 mg oral tablet (20 sources) End: 34-32-8385vxsozmf sulfate 325 (65 Fe) MG tablet 1 (one) time each day at the same time 11/05/2024 DiscontinuedFLUoxetine 20 mg oral capsule (20 sources)Serotonin Reuptake InhibitorStart: 08-19-9790zaru 1 capsule by mouth once dailyFluoxetine 20 mg capsule Active 20 MG PO Daily August 31, 2024 12:00am Complies with drug therapyStart: 80-32-3786lzvx 1 capsule by mouth once dailyFluoxetine 20 mg capsule Active 20 MG PO Daily August 31, 2024 1:00am Start: 10-02-2017 End: 58-96-8742libp 1 capsule by mouth once daily at bedtimeFluoxetine 10 mg capsule Discontinued 10 MG PO Daily at bedtime October 02, 2017 12:00am August 31, 2024 1:55pm anxietyFlonase (20 sources)CorticosteroidStart: 00-14-6517Qmkijba Refill(s) 0 Start Date: 03/22/25 Status: Ordered Medication Dispense Status: Completed TotalAllowed Fills: 1 Fills Dispensed: 0Start: 27-22-8829dzyf 2 puff(s) by inhalation twice daily as needed for wheezingFlovent HFA 110 Aerosol = 2 puff(s), Inhalation, BID, PRN Shortness of breath or wheezing Start Date: 09/19/20 Status: Ordered Medication Dispense Status: Completed Total Allowed Fills: 1 Fills Dispensed: 0 Start: 25-04-3343wxig 2 puff(s) by inhalation twice daily as needed for wheezing Flovent HFA 110 Aerosol = 2 puff(s), Inhalation, BID, PRN Shortness of breath or wheezing Start Date: 09/19/20 Status: OrderedStart: 02-16-2020 End: 90-43-4485Ehkfcntlnbg Propionate (Flonase Allergy Relief) 50 mcg/actuation [place],Suspension Discontinued 1 SPRAY INTRANASAL As Directed as needed for Nasal Congestion February 15, 2020 11:00pm August 1959:30amFlovent HFA 110 MCG/ACT inhaler every 12 (twelve) hours Activefurosemide 20 mg oral tablet (20 sources)Loop DiureticStart: 04-62-1849znrb 1 tablet by mouth once daily furosemide 20 mg Tab 20 mg = 1 tab(s), Oral, Daily, Refills(s) 0, diuretic/water pill Start Date: 12/08/24 Status: Ordered Medication Dispense Status: Completed Total Allowed Fills: 1 Fills Dispensed:0Start: 06-07-2023 End: 61-19-2967zmip 1 tablet by mouth once dailyFurosemide 20 mg tablet Discontinued 20 MG PO Daily August 19, 2024 12:00am November 23, 2024 10:59am hydroCHLOROthiazide 25 mg oral tablet (20 sources)Thiazide DiureticStart: 49-26-0485iryn 1 tablet by mouth once daily Hydrochlorothiazide 25 mg tablet Active 25 MG PO Daily August 19, 2024 12:00am Complies with drug therapyHYDROmorphone hydrochloride 2 mg oral tablet (1 source)Opioid AgonistStart: 39-39-8031wnqw 0.5-1 tablets by mouth every four hours as needed for painDilaudid 2 mg Tab See Instructions, PRN for pain, 0.5-1 tab(s) Oral q4hr, # 40 tab(s), Refills(s) 0Start Date: 09/30/20 Status: Ordered ibuprofen 200 mg oral tablet (19 sources)Nonsteroidal Anti-inflammatory DrugStart: 69-94-6258iwst 1 tablet by mouth every six hours as needed for arthritisAdvil 200 mg oral tablet 200 mg = 1 tab(s), Oral, q6hr, PRN as needed for arthritis Start Date: 09/19/20 Status: OrderedStart: 01-06-2020 End: 75-26-2836owxc 1 tablet by mouth four times daily as needed for pain Ibuprofen (Advil) 200 mg Tablet Discontinued 200 MG PO Four times daily as needed for Pain January 05, 2020 11:00pm November 23, 2024 10:59amibuprofen 200 mg / pseudoephedrine hydrochloride 30 mg oral tablet (20 sources)alpha-Adrenergic Agonist, Nonsteroidal Anti-inflammatory Drug pseudoephedrine-Ibuprofen 30-200 MG tablet per tablet every 6 (six) hours Active insulin detemir (1 source)Insulin AnalogStart: 71-96-2500hfxwdx 9 [IU] by subcutaneous injection once daily in the eveningLevemir 9 unit(s), SubCutaneous, qPM, Refills(s) 0, Blood glucose Start Date: 05/02/16 Status: Orderedinsulin isophane, human 100 unt/ml injectable suspension (20 sources)Start: 48-81-2679Rtmjfyv Nph Isoph U-100 Human (Novolin N Nph U-100 Insulin) 100 unit/mL suspension Active 22 UNIT SUBCUT Twice daily June 07, 2025 2:30pm Complies with drug therapyStart: 01-04-2025 End: 52-04-3450Xlmdukf Nph Isoph U-100 Human (Novolin N Nph U-100 Insulin) 100 unit/mL suspension Discontinued 25 UNIT SUBCUT Twice daily January 03, 2025 11:00pm June 07, 2025 2:32pmStart: 95-72-1825ewlrch 24 [IU] by subcutaneous injection twice dailyNovolin N 24 unit(s), SubCutaneous, BID, Refills(s) 0, Blood glucose Start Date: 12/08/24 Status: Ordered Repeat number: 1 Start: 35-25-2782Aobjaaa Nph Isoph U-100 Human (Humulin N Nph Insulin Kwikpen) 100 unit/mL (3 mL) insulin pen Yzbnux25 UNIT SUBCUT Twice daily August 31, 2024 1:58pm Complies with drug therapyStart: 08-19-2024 End: 41-24-9515Zdahktc Nph Isoph U-100 Human (Humulin N Nph Insulin Kwikpen) 100 unit/mL (3 mL) insulin pen Discontinued 30 UNIT SUBCUT Twice daily August 19, 2024 12:00am August 31, 2024 1:59pmInsulin Regular Human 100 unit/mL cartridge (1 source)Start: 86-75-8525Uxusunn Regular Human 100 unit/mL cartridge Active 1 sliding scale dose SUBCUT Use as Directed June 07, 2025 12:00am Complies with drug therapyNovolin R (20 sources)InsulinStart: 38-26-3672Wmssvlg R sliding scale as needed with meals and bedtime, Refills(s) 0 Start Date: 12/08/24 Status: Ordered Medication Dispense Status: Completed Total Allowed Fills: 1 Fills Dispensed: 0Start: 62-01-2071Qysnxgb R sliding scale as needed with meals and bedtime, Refills(s) 0 Start Date: 12/08/24 Status: Ordered Repeat number: 1Start: 08-18-2024 End: 15-41-1193ihfnwuq regular (HumuLIN R,NovoLIN R) 100 UNIT/ML injection [...] (20 sources)Angiotensin Converting Enzyme InhibitorStart: 09-19-2020 End: 53-08-8962prjp 1 tablet by mouth once dailylisinopril 10 mg Tab 10 mg = 1 tab(s), Oral, Daily, High blood pressure Start Date: 09/19/20 Status:Ordered Start: 10-02-2017 End: 10-37-9790hiza 2 tablets by mouth once dailyLisinopril 5 mg tablet Discontinued 10 MG PO Daily October 02, 2017 12:00am November 23, 2024 11:00amHTN Start: 25-54-1739rgnw 10 mg by mouth once dailyLisinopril Active 10 MG PO Daily October 02, 2017 1:00ammeclizine hydrochloride 25 mg chewable tablet (20 sources)AntiemeticStart: 28-57-7011swev 2 tablets by mouth twice daily as needed for dizzinessmeclizine 25 mg oral tablet, chewable 50 mg = 2 tab(s), Oral, BID, PRN Dizziness, Refills(s) 0 Start Date: 12/08/24 Status: Ordered Medication Dispense Status: Completed Total Allowed Fills: 1 Fills Dispensed: 0 Start: 74-89-6428rctg 25 mg by mouth twice dailymeclizine 25 mg, Oral, BID, Refills(s) 0 Start Date: 09/07/24 Status: OrderedStart: 08-19-2024 End: 41-35-4241lzbe 1 tablet by mouth twice daily as neededMeclizine (Antivert) 25 mg tablet,chewable Active 25 MG PO Twice daily as needed August 31, 2024 1:58pm Complies with drug therapymethocarbamol 500 mg oral tablet (4 sources)Muscle RelaxantStart: 64-44-7563evnh 1 tablet by mouth every eight hours as neededMethocarbamol 500 mg tablet Active 500 MG PO Every 8 hours as needed June 07, 2025 12:00am Complies with drug therapyStart: 03-22-2025 methocarbamol (Robaxin) 500 MG tablet Take by mouth 03/22/2025 Activenaproxen 500 mg oral tablet (20 sources)Nonsteroidal Anti-inflammatory DrugStart: 57-33-9843xttm 1 tablet by mouth twice daily as neededNaproxen 500 mg tablet Active 500 MG PO Twice daily as needed June 07, 2025 12:00am Complies with drug therapyStart: 81-90-2539tyrotbrl 500 mg Tab PRN Pain, Refills(s) 0 Start Date: 12/08/24 Status: Ordered Medication Dispense Status: Completed Total Allowed Fills: 1 Fills Dispensed: 0Start: 09-30-2020 End: 15-12-8155vtfo 1 tablet by mouth twice daily as needed for painnaproxen (Naprosyn) 500 MG tablet Indications: Left knee pain, unspecified chronicity Take 1 tablet(500 mg) by mouth 2 (two) times a day as needed for mild pain Take with food 60 tablet 10/29/2023 04/26/2024 ActiveNexium 20 mg Cap-DR (1 source)Start: 64-74-3629Jnmiga 20 mg Cap-DR 20 mg = 1 cap(s), Oral, Daily, Control of stomach acid Start Date: 09/19/20 Status: Orderednitroglycerin 0.4 mg sublingual tablet (20 sources)Nitrate VasodilatorStart: 54-38-6305Mqnmmydyzrqpm 0.4 mg tablet, sublingual Active 0.4 MG SUBLINGUAL EVERY 5 MINUTES as needed for Chest Pain January 05, 2020 11:00pm Complies with drug therapynitroglycerin 0.4 mg sublingual Tab (1 source)Start: 23-25-7887fuuejvcrwcztr 0.4 mg sublingual Tab 0.4 mg = 1 tab(s), SubLingual, q5min, PRN for chest pain Start Date: 09/19/20 Status: Orderedomeprazole 40 mg delayed release oral capsule (20 sources)Proton Pump InhibitorStart: 35-39-1577bkxd 1 capsule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 Mathieu Naqvi on 19-77-3728Gycwvehaewf [Mass/Vol]Cholesterol [Mass/volume] in Serum or NholdmAxh619-470BukxqlwbjMercy Health [facility] Hospital Comment on above:Chol less than 200 mg/dl low riskChol 201-239 mg/dl borderline riskChol 240 mg/dl and greater high riskCholesterol in HDL [Mass/volume] in Serum or PlasmaOrdered By: Mathieu Naqvi on 59-57-2649Eywfxvkmwbg in HDL [Mass/Vol]Serum or plasma high density lipoprotein (HDL) cholesterol measurement 23-92[facility] HospitalComment on above:HDL CHOL ATP-III CLASSIFICATION Cardiovascular RiskHDL > or equal to 60 mg/dL LOWHDL < 40 mg/dL HIGHCholesterol in LDL Calc [Mass/Vol]Ordered By: Mathieu Naqvi on 10-13-2024 Cholesterol in LDL [Mass/Vol]Cholesterol in LDL [Mass/volume] in Serum or Plasma by calculation0-100[facility] HospitalComment on above:LDL ATP III CLASSIFICATIONLDL less than 100 mg/dL OptimalLDL 100-129 mg/dL Near or above rkhzaklXON423-948 mg/dL Borderline highLDL 160-189 mg/dL HighLDL greater than 189 mg/dL Very highCholesterol in VLDL Calc [Mass/Vol]Ordered By: Mathieu Naqvi on 28-23-6989Zcqdzefksst in VLDL [Mass/Vol]Cholesterol in VLDL [Mass/volume] in Serum or Plasma by calculationMercy Health Anderson HospitalColor Auto (U) Ordered By: Dinah Sepulveda on 12-36-1793Cnvxw (U)Color of Urine by AutoYellow [facility] HospitalCreatinine [Mass/volume] in Serum or Plasma Ordered By: Mathieu Naqvi on 41-16-5274Hlocnqnqak [Mass/Vol]Creatinine [Mass/volume] in Serum or PlasmaHigh0.60-1.20[facility] Creatinine [Mass/volume] in UrineOrdered By: Mathieu Naqvi on 10-13-2024 Creatinine (U) [Mass/Vol]Creatinine [Mass/volume] in UrineMercy Health Anderson HospitalComment on above:No reference range establishedDipstick and Microscopicon 39-21-5519Ssfpffpqim (U)CloudyCritically abnormalClearThe [facility] Physician GroupComment on above:Order Comment: Name Collection Type:: Clean-Voided MidstreamPerformed By: #### ADDONUAPLUS, CUU, PROCRERAT #### [facility] [address] [id number] USABacteria,UrineNone SeenNormalNone SeenThe [facility] Physician GroupComment on above:Order Comment: Name Collection Type:: Clean- Voided MidstreamPerformed By: #### ADDONUAPLUS, CUU, PROCRERAT #### [facility] [address] [place] [address] USABilirubin,UrineNegativeNormalNegativeThe [facility] Physician GroupComment on above:Order Comment: Name Collection Type:: Clean- Voided MidstreamPerformed By: #### ADDONUAPLUS, CUU, PROCRERAT #### [facility] [address] [place] [address] USAColor (U)Light-YellowNormalYellowThe [facility] Physician GroupComment on above:Order Comment: Name Collection Type:: Clean-Voided MidstreamPerformed By: #### ADDONUAPLUS, CUU, PROCRERAT #### [place] [address] USAGlucose Ql (U)1000 mg/dLHighNoUNC Health Blue Ridge Physician GroupComment on above:Order Comment: Name Collection Type:: Clean-Voided MidstreamPerformed By: #### ADDONUAPLUS, CUU, PROCRERAT #### [place] [address] USAHyaline Casts,UrineNoneNormal0-8The [facility] Physician GroupComment on above:Order Comment: Name Collection Type:: Clean-Voided MidstreamPerformed By: #### ADDONUAPLUS, CUU, PROCRERAT #### [place] [address] USAKetones Ql (U)NegativeNormalNegativeAdventhealth Deland Physician GroupComment on above:Order Comment: Name Collection Type:: Clean- Voided MidstreamPerformed By: #### ADDONUAPLUS, CUU, PROCRERAT #### [place] [address] USALeukocyte esterase Test strip Ql (U)3+HighNegativeThe [facility] Physician GroupComment on above:Order Comment: Name Collection Type:: Clean-Voided MidstreamPerformed By: #### ADDONUAPLUS, CUU, PROCRERAT #### [place] [address] USAMucus,UrineRareNormalThe [facility] Physician GroupComment on above:Order Comment: Name Collection Type:: Clean-Voided MidstreamResult Comment: PERFORMED BY: [place] [address] PATHOLOGIST [employer]ING ASSEMBLER CURTIS CASAS M.D.Performed By: #### ADDONUAPLUS, CUU, PROCRERAT #### [place] [address] USANitrite,UrineNegativeNormalNegativeThe [facility] Physician GroupComment on above:Order Comment: Name Collection Type:: Clean-Voided MidstreamPerformed By: #### ADDONUAPLUS, CUU, PROCRERAT #### [place] [address] USAOccult Blood,UrineNegativeNormalNegativeThe [facility] Physician GroupComment on above:Order Comment: Name Collection Type:: Clean- Voided MidstreamPerformed By: #### ADDONUAPLUS, CUU, PROCRERAT #### [place] [address] USApH (U)6.5 [pH]Normal5.0-9.0The [facility] Comment on above:Order Comment: Name Collection Type:: Clean-Voided Midstream Performed By: #### ADDONUAPLUS, CUU, PROCRERAT #### [place] [address] USAProtein,UrineNegativeNormalNegativeThe [facility] Physician GroupComment on above:Order Comment: Name Collection Type:: Clean-Voided MidstreamPerformed By: #### ADDONUAPLUS, CUU, PROCRERAT #### [place] [address] USARBC,Dsokq9-2Midrvs4-8Qob [facility] Physician GroupComment on above:Order Comment: Name Collection Type:: Clean-Voided MidstreamPerformed By: #### ADDONUAPLUS, CUU, PROCRERAT #### [place] [address] USASpecificy Savannah,Urine1.569Amwxfa5.001-1.030The [facility] Physician GroupComment on above:Order Comment: Name Collection Type:: Clean- Voided MidstreamPerformed By: #### ADDONUAPLUS, CUU, PROCRERAT #### [facility] [address] [place] [address] USASquamous Epithelial Cell,Ofvli55-97Lmxs0-8Lfv [facility]ician GroupComment on above:Order Comment: Name Collection Type:: Clean- Voided MidstreamPerformed By: #### ADDONUAPLUS, CUU, PROCRERAT #### [facility] [address] [place] [address] USAUrobilinogen,UrineNormalNormalNormalThe [facility] Physician GroupComment on above:Order Comment: Name Collection Type:: Clean- Voided MidstreamPerformed By: #### ADDONUAPLUS, CUU, PROCRERAT #### [facility] [address] [place] [address] USAWBC,Ecbek06-18Pfao3-8Yte [facility] Physician GroupComment on above:Order Comment: Name Collection Type:: Clean-Voided MidstreamPerformed By: #### ADDONUAPLUS, CUU, PROCRERAT #### [facility] [address] [place] [address] USAEpithelial cells.squamous [#/area] in Urine sediment by Automated countOrdered By: Dinah Sepulveda on 56-45-7664Qvtqwaiojm cells.squamous Auto (Urine sed) [#/Area]Epithelial cells.squamous [#/area] in Urine sediment by Automated countHigh0-2FTuscarawas HospitalErythrocyte distribution width Auto (RBC) [Ratio]Ordered By: Dinah Sepulveda on 80-29-1542Qbyvzhvzfjb distribution width (RBC) [Ratio]Erythrocyte distribution width [Ratio] by Automated count11.9-15.3FTuscarawas HospitalErythrocytes [#/area] in Urine sediment by Automated countOrdered By: Dinah Sepulveda on 34-97-3815TEX Auto (Urine sed) [#/Area]Erythrocytes [#/area] in Urine sediment by Automated count0-4FTuscarawas HospitalGlobulin Calc (S) [Mass/Vol]Ordered By: Ponce Silvestre on 75-09-6796Hacvgkcv (S) [Mass/Vol]Serum globulin measurement by calculation (mass/volume)[facility] HospitalGlucose [Mass/volume] in Serum or PlasmaOrdered By: Mathieu Naqvi on 68-97-1933Hznrcty [Mass/Vol] Glucose [Mass/volume] in Serum or BscrxuSvkq58-116WpfirljbtMercy Health Anderson HospitalComment on above:ADA recommended reference rangeRandom Glucose Reference Range is dependent on time and content of last meal. Glucose of more than 200 mg/dL in a nonstressed, ambulatory subject supports the diagnosisof Diabetes Mellitus.Glucose [Mass/volume] in Urine by Test stripOrdered By: Dinah Sepulveda on 18-51-6678Ypjfjlv Test strip (U) [Mass/Vol]Glucose [Mass/volume] in Urine by Test stripHighNormalMercy Health Anderson HospitalHematocrit Auto (Bld) [Volume fraction]Ordered By: Dinah Sepulveda on 25-54-8043Hlpcvwfmdg (Bld) [Volume fraction]Hematocrit [Volume Fraction] of Blood by Automated count34.0-46.4 [facility] HospitalHemoglobin Test strip Ql (U)Ordered By: Dinah Sepulveda on 38-90-1916Azcgofspem Ql (U)Hemoglobin [Presence] in Urine by Test strip NegativeMercy Health Anderson HospitalHemoglobin [Mass/volume] in Blood Ordered By: Dinah Sepulveda on 40-68-5949Jotqbaaows (Bld) [Mass/Vol]Hemoglobin [Mass/volume] in Blood11.8-15.4FTuscarawas HospitalHemogram CBC Without Diffon 52-40-5460Bntgdgqnhum distribution width (RBC) [Ratio]15.3 % Oejxqf08.9-15.3The [facility] Physician GroupComment on above:Performed By: #### LIPID #### [facility] [address] [place] [address] [place] #### CPEP #### [facility] ,Hematocrit (Bld) [Volume fraction]37.7 %Zjlkxy54.0-46.4The [facility] Physician GroupComment on above:Performed By: #### LIPID #### [facility] [address] [place] [address] [place] #### CPEP #### [facility] ,Hemoglobin (Bld) [Mass/Vol]12.7 g/uQHoqdog98.8-15.4The [facility] Physician GroupComment on above:Performed By: #### LIPID #### [address] #### CPEP #### [facility] ,MCH (RBC) [Entitic mass]29.3 bpFtuaxt73.7-34.3The [facility] Comment on above:Performed By: #### LIPID #### [address] #### CPEP #### [facility] ,MCV (RBC) [Entitic vol]87.1 bZUubwlq94-525Lmt [facility] Physician GroupComment on above:Performed By: #### LIPID #### [address] #### CPEP #### [facility] ,Mean Corpuscular HGB Conc33.6 g/aNPezqes31.0-35.0The [facility] Comment on above:Performed By: #### LIPID #### [address] #### CPEP #### [facility] ,Platelet mean volume (Bld) [Entitic vol]9.9 fLNormal6.3-10.7The [facility] Physician GroupComment on above:Result Comment: PERFORMED BY: [place] [address] PATHOLOGIST [employer]ING ASSEMBLER CURTIS CASAS M.D.Performed By: #### LIPID #### [place] [address] [place] #### CPEP #### [facility] ,Platelets (Bld) [#/Vol]192 10*3/vRMvivte446-041Fcj [facility] Comment on above:Performed By: #### LIPID #### [address] #### CPEP #### [facility] ,RBC (Bld) [#/Vol]4.33 10*6/uLNormal3.60-5.00The [facility] Comment on above:Performed By: #### LIPID #### [address] #### CPEP #### [facility] ,WBC (Bld) [#/Vol]8.4 10*3/uLNormal3.8-11.6The [facility] Physician GroupComment on above:Performed By: #### LIPID #### [address] #### CPEP #### [facility] ,Hepatic Panelon 10-92-8961Qhabxrg [Mass/Vol]3.8 g/dLNormal3.5-5.7The [facility] Physician GroupComment on above:Performed By: #### HEPATIC #### [place] [address] USAAlbumin/Globulin [Mass ratio]1.5 {ratio}NormalThe [facility] Physician GroupComment on above:Performed By: #### HEPATIC #### [place] [address] USAALP [Catalytic activity/Vol]99 U/BKwmxua21-589Qfj [facility] Physician GroupComment on above:Result Comment: PERFORMED BY: [place] [address] PATHOLOGIST BEDS[employer]ING ASSEMBLER CURTIS CASAS M.D.Performed By: #### HEPATIC #### [place] [address] USAALT [Catalytic activity/Vol]11 U/LNormal7-52The [facility] Physician GroupComment on above:Performed By: #### HEPATIC #### [place] [address] USAAST [Catalytic activity/Vol]14 U/MObljhj04-36Yhf [facility] Physician GroupComment on above:Performed By: #### HEPATIC #### [facility] [address] [place] [address] USABilirubin [Mass/Vol]0.4 mg/dLNormal0.3-1.0The [facility] Physician GroupComment on above:Performed By: #### HEPATIC #### [facility] [address] [place] [address] USABilirubin,Indirect0.3 mg/dLNormalThe [facility] Physician GroupComment on above:Performed By: #### HEPATIC #### [facility] [address] [place] [address] USABilirubin.indirect [Mass/Vol]0.10 mg/dLNormal0.03-0.18The [facility] Physician GroupComment on above:Performed By: #### HEPATIC #### [place] [address] USAGlobulin (S) [Mass/Vol]2.6 g/dLNormalThe [facility] Physician GroupComment on above:Performed By: #### HEPATIC #### [facility] [address] [place] [address] USAProtein [Mass/Vol]6.4 g/dLNormal6.4-8.9The [facility] Physician GroupComment on above:Performed By: #### HEPATIC #### [place] [address] USAHyaline casts [#/area] in Urine sediment by Automated countOrdered By: Dinah Sepulveda on 21-05-3550Vlkwxbu casts Auto (Urine sed) [#/Area]Hyaline casts [#/area] in Urine sediment by Automated count0-8[facility] HospitalKetones Test strip Ql (U)Ordered By: Dinah Sepulveda on 99-60-5247Mucqyby Ql (U)Ketones [Presence] in Urine by Test stripNegative [facility] HospitalLeukocyte esterase [Presence] in Urine by Test stripOrdered By: Dinah Sepulveda on 82-92-2440Luhewvjpt esterase Test strip Ql (U) Leukocyte esterase [Presence] in Urine by Test stripHighNegativeMercy Health Anderson HospitalLeukocytes [#/area] in Urine sediment by Automated count Ordered By: Dinah Sepulveda on 48-63-3207XPG Auto (Urine sed) [#/Area]Leukocytes [#/area] in Urine sediment by Automated countHigh0-4FTuscarawas HospitalLeukocytes [#/volume] corrected for nucleated erythrocytes in Blood by Automated counOrdered By: Dinah Sepulveda on 70-05-1089EOQ corrected for nucl RBC Auto (Bld) [#/Vol]Leukocytes [#/volume] corrected for nucleated erythrocytes in Blood by Automated coun3.8-11.6FTuscarawas HospitalLipid Panelon 20-18-2024Ooquyxyllyi [Mass/Vol]95 mg/bNOcj186-984Wtw [facility] Comment on above:Result Comment: Chol less than 200 mg/dl low risk Chol 201-239 mg/dl borderline risk Chol 240 mg/dl and greater high riskPerformed By: #### LIPID #### [facility] [address] [place] [address] #### CPEP #### [facility] ,Cholesterol in HDL [Mass/Vol]28 mg/sXMhdufg50-66Hkr [facility] Comment on above:Result Comment: HDL CHOL ATP-III CLASSIFICATION Cardiovascular Risk HDL > or equal to 60 mg/dL LOW HDL < 40 mg/dL HIGHPerformed By: #### LIPID #### [facility] [address] [place] [address] [place] #### CPEP #### [facility] ,Cholesterol.total/Cholesterol in HDL [Mass ratio]3.4 {ratio}Normal<5.0The [facility] Physician GroupComment on above:Result Comment: PERFORMED BY: [place] [address] PATHOLOGIST [employer]ING ASSEMBLER CURTIS CASAS M.D.Performed By: #### LIPID #### [facility] [address] [place] [address] [place] #### CPEP #### [facility] ,LDL Cholesterol,Qhnmwcewtr52 mg/dLNormal0-100The [facility] Comment on above:Result Comment: LDL ATP III CLASSIFICATION LDL less than 100 mg/dL Optimal LDL 100-129 mg/dL Near or above optimal LDL 130-159 mg/dL Borderline high LDL 160-189 mg/dL High LDL greater than 189 mg/dL Very highPerformed By: #### LIPID #### [facility] [address] [place] [address] [place] #### CPEP #### [facility] ,Triglyceride w/Zgeucy10 mg/dLNormal0-149The [facility] Physician GroupComment on above:Result Comment: TRIG ATP III CLASSIFICATION TRIG less than 150 mg/dL Normal TRIG 150-199 mg/dL Borderline high TRIG 200-500 mg/dL High TRIG greater than 500 mg/dL Very high Standard traceable to the Center for Disease Conrtrol and Prevention (CDC) test method.Performed By: #### LIPID #### [place] [address] [place] #### CPEP #### [facility] ,VLDL IPDNJHNHPYD89 mg/dLNormalThe [facility] Physician GroupComment on above: Performed By: #### LIPID #### [facility] [address] [place] [address] [place] #### CPEP #### [facility] ,MCH Auto (RBC) [Entitic mass]Ordered By: Dinah Sepulveda on 48-53-4692KFE (RBC) [Entitic mass]MCH [Entitic mass] by Automated count24.7-34.3FGrand Lake Joint Township District Memorial HospitalHC Auto (RBC) [Mass/Vol]Ordered By: Dinah Stubbsdir on 10-13-2024 MCHC (RBC) [Mass/Vol]MCHC [Mass/volume] by Automated count32.0-35.0[facility] CenterV Auto (RBC) [Entitic vol]Ordered By: Dinah Stubbsdir on 19-37-7216ABA (RBC) [Entitic vol]MCV [Entitic volume] by Automated jbhyu27-743 [facility] HospitalMagnesiumon 88-66-2782Axvoacvfi [Mass/Vol]2.1 mg/dLNormal1.9-2.7The [facility] Physician GroupComment on above:Performed By: #### LIPID #### [facility] [address] [place] [address] [place] #### CPEP #### [facility] ,Magnesium [Mass/volume] in Serum or PlasmaOrdered By: Dinah Sepulveda on 10-13-2024 Magnesium [Mass/Vol]Magnesium [Mass/volume] in Serum or Plasma1.9-2.7FTuscarawas HospitalMicroAlb Creat Ratio,Uon 07-40-8767Rezuqru DL <= 20 mg/L (U) [Mass/Vol]0.7 mg/dLNormal0.0-1.8The [facility] Physician GroupComment on above:Performed By: #### LIPID #### [place] [address] [place] #### CPEP #### [facility] ,Microalbumin/Creatinine Ratio9.2 mg/gNormal0.0-30.0The [facility] Physician GroupComment on above:Result Comment: 30-300 mg/g indicates an increased risk for diabetic nephropathy. Greater than 300 mg/g is consistent with clinical nephropathy. (Am. J. Kidney Disease 1995, 25:107) PERFORMED BY: [place] [address] PATHOLOGIST [employer]ING ASSEMBLER CURTIS CASAS M.D.Performed By: #### LIPID #### [place] [address] [place] #### CPEP #### [facility] ,Microalbumin [Mass/volume] in UrineOrdered By: Mathieu Naqvi on 10-13-2024 Albumin DL <= 20 mg/L (U) [Mass/Vol]Microalbumin [Mass/volume] in Urine0.0-1.8 [facility] HospitalMucus [Presence] in Urine by AutomatedOrdered By: Dinah Sepulveda on 75-35-6274Sbngu Auto Ql (U)Mucus [Presence] in Urine by AutomatedMercy Health Anderson HospitalNitrite Test strip Ql (U)Ordered By: Dinah Sepulveda on 43-92-3171Fsqyqfc Ql (U)Nitrite [Presence] in Urine by Test strip NegativeMercy Health Anderson HospitalNo Panel InformationOrdered By: Mathieu Naqvi on 83-23-5670Xzqhehyaa GFR (CKD-EPI)34.741 mL/MinMercy Health Anderson HospitalPharmacy Creatinine Clearance (ChemN/[facility] SystemParathyrin.intact [Mass/volume] in Serum or PlasmaOrdered By: Dinah Sepulveda on 13-81-1606Fpwglacxqj.intact [Mass/Vol]Parathyrin.intact [Mass/volume] in Serum or ItnlquHgar66-47FgokbdipfMercy Health Anderson HospitalParathyroid Hormone Intacton 39-64-8231Ixdsuucgiil Hormone Gswwyx366.1 pg/uVPqer45-56Ako [facility] Physician GroupComment on above:Result Comment: PERFORMED BY: [place] [address] PATHOLOGIST B[employer]ING ASSEMBLER CURTIS CASAS M.D.Performed By: #### LIPID #### [address] #### CPEP #### [facility] ,Phosphate [Mass/volume] in Serum or PlasmaOrdered By: Mathieu Naqvi on 37-02-4868Zkgrgnexc [Mass/Vol]Phosphate [Mass/volume] in Serum or Plasma2.5-4.5 [facility] HospitalPlatelet mean volume Auto (Bld) [Entitic vol] Ordered By: Dinah Sepulveda on 55-04-0879Dgoesxoo mean volume (Bld) [Entitic vol] Platelet mean volume [Entitic volume] in Blood by Automated count6.3-10.7 [facility] HospitalPlatelets Auto (Bld) [#/Vol]Ordered By: Dinah Sepulveda on 90-85-4755Sfuzmjfun (Bld) [#/Vol]Platelets [#/volume] in Blood by Automated -694Ifoctmxke Regional Medical CenterPotassium [Moles/volume] in Serum or PlasmaOrdered By: Mathieu Naqvi on 46-14-4800Cldzrigms [Moles/Vol] Potassium [Moles/volume] in Serum or Plasma3.5-5.1FTuscarawas HospitalProtein Creat Ratio Ur Randomon 02-69-6411Ecvjizxlcp, Urine (Random)76.00 mg/dLNormMercy Health St. Charles Hospitale [facility] CenterComment on above:Result Comment: No reference range establishedPerformed By: #### JALEESA WATSON, PROCRERAT #### [place] [address] USAPerformed By: #### LIPID #### [place] [address] [place] #### CPEP #### [facility] ,Protein (U) [Mass/Vol]17 mg/dLHigh0-9The [facility] CenterComment on above:Performed By: #### JALEESA WATSON, PROCRERAT #### [place] [address] USAUrine Protein/Creatinine Xzxii298 mg/g{Cre}High0-200The [facility]ician [facility] Medical CenterComment on above:Result Comment: PERFORMED BY: [place] [address] PATHOLOGIST [employer]ING ASSEMBLER CURTIS CASAS M.D.Performed By: #### JALEESA WATSON, PROCRERAT #### [place] [address] USAProtein Test strip (U) [Mass/Vol]Ordered By: Dinah Sepulveda on 53-58-5883Uzoxhwi (U) [Mass/Vol]Protein [Mass/volume] in Urine by Test strip NegativeMercy Health Anderson HospitalProtein [Mass/volume] in Serum or PlasmaOrdered By: Ponce Silvestre on 89-24-2290Ydrnwdu [Mass/Vol]Protein [Mass/volume] in Serum or Plasma6.4-8.9[facility] HospitalProtein [Mass/volume] in UrineOrdered By: Dinah Sepulveda on 08-86-0092Klvhxyv (U) [Mass/Vol]Protein [Mass/volume] in UrineHigh0-9[facility] RBC Auto (Bld) [#/Vol]Ordered By: Dinah Sepulveda on 24-84-3221SNM (Bld) [#/Vol] Erythrocytes [#/volume] in Blood by Automated count3.60-5.00[facility] HospitalRenal Function Panelon 01-35-0611Wizeuwf [Mass/Vol]3.8 g/dLNormal 3.5-5.7The [facility] Physician GroupComment on above:Performed By: #### [id number], RENAL #### [facility] [address] [id number] USAAnion gap [Moles/Vol]11.8 mmol/LNormal6.0-15.0The [facility] Physician GroupComment on above:Performed By: #### [id number], RENAL #### [facility] [address] [place] [address] USACalcium [Mass/Vol]8.8 mg/dLNormal8.6-10.3The [facility] Physician GroupComment on above:Performed By: #### [id number], RENAL #### [facility] [address] [place] [address] USAChloride [Moles/Vol]106 mmol/NSwcdnh85-129Mfc [facility] Physician GroupComment on above:Performed By: #### [id number], RENAL #### [facility] [address] [id number] USACO2 [Moles/Vol]27.1 mmol/FMdcevq23.0-31.0The [facility] Physician GroupComment on above:Performed By: #### [id number], RENAL #### [facility] [address] [id number] USACreatinine [Mass/Vol]1.59 mg/dLHigh0.60-1.20The [facility] Physician GroupComment on above:Performed By: #### [id number], RENAL #### [facility] [address] [id number] USAEstimated GFR34.741 mL/MinNormalThe [facility] Physician GroupComment on above:Performed By: #### [id number], RENAL #### [facility] [address] [place] [address] USAGlucose [Mass/Vol]108 mg/gUIhlu97-441Msb [facility] Physician GroupComment on above:Result Comment: Random Glucose Reference Range is dependent on time and content of last meal. Glucose of more than 200 mg/dL in a nonstressed, ambulatory subject supports the diagnosis of Diabetes Mellitus. ADA recommended reference rangePerformed By: #### [id number], RENAL #### [facility] [address] [place] [address] USAPhosphate [Mass/Vol]3.4 mg/dLNormal2.5-4.5The [facility] Physician GroupComment on above:Performed By: #### [id number], RENAL #### [facility] [address] [place] [address] USAPotassium [Moles/Vol]3.9 mmol/LNormal3.5-5.1The [facility]park Physician GroupComment on above:Performed By: #### [id number], RENAL #### [facility] [address] [id number] USASodium [Moles/Vol]141 mmol/LVdnyis369-744Oyx [facility] Physician GroupComment on above:Performed By: #### [id number], RENAL #### [facility] [address] [id number] USAUrea nitrogen [Mass/Vol]24 mg/dLNormal7-25The [facility] Physician GroupComment on above:Performed By: #### [id number], RENAL #### [facility] [address] [place] [address] USASerum or plasma albumin/globulin mass ratioOrdered By: Ponce Silvestre on 72-04-7830Xuvspil/Globulin [Mass ratio]Serum or plasma albumin/globulin mass ratioUniversity Hospitals Lake West Medical Centererum or plasma anion gap determinationOrdered By: Mathieu Naqvi on 70-29-3423Kekju gap [Moles/Vol]Serum or plasma anion gap determination6.0-15.0[facility] Medical Centererum or plasma non-glucuronidated bilirubin measurement (mass/volume)Ordered By: Ponce Silvestre on 40-44-4861Wvshnerrh.indirect [Mass/Vol]Serum or plasma non-glucuronidated bilirubin measurement (mass/volume) [facility] Hospitals Lake West Medical Centererum or plasma total cholesterol/high density lipoprotein (HDL) cholesterol mass ratOrdered By: Mathieu Naqvi on 10-13-2024 Cholesterol.total/Cholesterol in HDL [Mass ratio]Serum or plasma total cholesterol/high density lipoprotein (HDL) cholesterol mass rat<5.0[facility] West Medical Centerodium [Moles/volume] in Serum or PlasmaOrdered By: Mathieu Naqvi on 24-30-3158Pgxqfw [Moles/Vol]Sodium [Moles/volume] in Serum or Plasma 136-145[facility] West Medical Centerpecific gravity Test strip (U) [Rel density]Ordered By: Dinah Sepulveda on 80-49-3678Sobnxove gravity (U) [Rel density] Specific gravity of Urine by Test strip1.001-1.030[facility] Anderson HospitalTriglyceride [Mass/volume] in Serum or PlasmaOrdered By: Mathieu Naqvi on 62-54-8243Mtibekollnvx [Mass/Vol]Triglyceride [Mass/volume] in Serum or Plasma 0-149Mer[facility] Anderson HospitalComment on above:TRIG ATP III CLASSIFICATIONTRIG less than 150 mg/dL NormalTRIG 150-199 mg/dL Borderline highTRIG 200-500 mg/dL High TRIG greater than 500 mg/dL Very highStandard traceable to the Center for Disease Conrtrol and Prevention (CDC) test method. Urate [Mass/volume] in Serum or PlasmaOrdered By: Dinah Sepulveda on 82-06-6389Wjyar [Mass/Vol]Urate [Mass/volume] in Serum or PlasmaHigh2.3-6.6FTuscarawas HospitalUrea nitrogen [Mass/volume] in Serum or PlasmaOrdered By: Mathieu Naqvi on 93-10-6499Ldik nitrogen [Mass/Vol]Urea nitrogen [Mass/volume] in Serum or Plasma7-25[facility] Anderson HospitalUric Acidon 42-41-4874Gkkok [Mass/Vol]7.7 mg/dLHigh2.3-6.6The [facility]park Physician GroupComment on above: Result Comment: PERFORMED BY: [place] [address] PATHOLOGIST BEDSPRING ASSEMBLER CURTIS CASAS M.D.Performed By: #### LIPID #### [place] [id number] [place] #### CPEP #### [facility] ,Urine Cultureon 46-94-2671Bihrwzof identified Cx Nom (U)>100,000 colonies/ml mixed bacterial skin contaminants 2 Days PERFORMED BY: [place] [address] PATHOLOGIST BEDSPRING ASSEMBLER CURTIS CASAS M.D.NormalThe [facility] Southpark Physician GroupComment on above: Performed By: #### LIPID #### [place] [id number] [place] #### CPEP #### [facility] ,Urine cultureOrdered By: Dinah Sepulveda on 15-91-5721Lvokutyo identified Cx Nom (U)Urine cultureMercy Health Anderson HospitalUrine microalbumin/creatinine mass ratioOrdered By: Mathieu Naqvi on 44-78-0443Kiaxmil/Creatinine DL <= 20 mg/L (U) [Mass ratio]Urine microalbumin/creatinine mass ratio0.0-30.0[facility] Anderson HospitalComment on above:30-300 mg/g indicates an increased risk for diabetic nephropathy. Greater than 300 mg/g is consistent with clinical nephropathy. (Am. J. Kidney Disease 1995, 25:107)Urine protein/creatinine ratio Ordered By: Dinah Sepulveda on 54-43-4554Wigsrwk/Creatinine (U) [Ratio]Urine protein/creatinine ratioHigh0-200Mer[facility] Anderson HospitalUrobilinogen Test strip (U) [Mass/Vol]Ordered By: Dinah Sepulveda on 58-04-3627Rnbxbrxxagoc (U) [Mass/Vol]Urobilinogen [Mass/volume] in Urine by Test stripNormalMercy Health Anderson HospitalVitamin D 25 Hydroxy Totalon 98-04-0716Kaxniam D 25 Hydroxy Total15.0 ng/cXPai38-519Hcj [facility] Physician GroupComment on above: Result Comment: VITAMIN D STATUS 25(OH)VITAMIN D RANGE (ng/mL) Deficient <20 Insufficient 20 to <30 Sufficient 30 to 100 Reference: Luann Almanza, Merline FERRER, et al. Evaluation,treatment, and prevention of vitamin D deficiency; an Endocrine Society clinical practice guideline. JCEM. 2010; 96(7):191-. PERFORMED BY: [place] [address] PATHOLOGIST BEDSPRING ASSEMBLER CURTIS CASAS M.D.Performed By: #### [id number], RENAL #### [place] [address] USAVitamin D+Metabolites [Mass/volume] in Serum or Plasma Ordered By: Mathieu Naqvi on 92-32-4066Wafrevf D+Metabolites [Mass/Vol]Vitamin D+Metabolites [Mass/volume] in Serum or KfhwlmUgp60-846KnchcanxrMercy Health Anderson HospitalComment on above:VITAMIN D STATUS 25(OH)VITAMIN D RANGE (ng/mL) Deficient <20 Insufficient 20 to <09Psoxrcwqfg04 to 100Reference: Luann Almanza, Merline FERRER, et al. Evaluation,treatment, and prevention of vitamin D deficiency; an Endocrine Society clinical practice guideline. JCEM. 2010; 96(7):1911-.pH Test strip (U)Ordered By: Dinah Sepulveda on 10-13-2024 pH (U)pH of Urine by Test strip5.0-9.0[facility] Anderson HospitalMR head/brain wo/w conon 21-16-8935JU head/brain wo/w [facility] Main [place] [id number] MRI Report Signed Patient: Virgen Gonzales MR# : [id number] : 1955 Acct:[id number] Age/Sex: 69 / F ADM Date: 09/14/24 Loc: ICMR Room: Type: REG CLI Attending Dr: Olman De La Rosa DO Copies to: Olman De La Rosa DO Ordering Provider: lOman De La Rosa DO Date of Service: [...] Jacinto Gallagher M.D.09/14/2024 5:21 PM Dictation Location: [place] [address] Transcribed By: KATHIE 09/14/24 1721 Dictated By: Jacinto Gallagher II, MD 09/14/24 1714 Signed By: 09/14/24 172[facility] Physician GroupMaetic resonance imaging reportOrdered By: Jacinto Gallagher on 83-25-3297Brmkw reportCLEVELAND CLINIC AVON [facility] [place] [address] [place] [address] MRI Report Signed Patient: Virgen Gonzales MR#: [id number] : 1955 Acct:[id number] Age/Sex: 69 / F ADM Date: 5 Loc: [facility] Room: Type: [facility] Attending Dr: Olman De La Rosa [...] Jacinto Gallagher M.D.09/14/2024 5:21 PM Dictation Location: [place] [address] Transcribed By: [facility] 09/14/24 172 Dictated By: Jacinto Gallagher II, MD 09/14/24 171 Signed By: 09/14/24 172 [facility] Work Phone: X-ray reportOrdered By: Jose Horn on 09-14-2024 Study reportCLEVELAND CLIN[facility] [place] [address] [place] [address] XRay Report Signed Patient: Virgen Gonzales MR#: [id number] : 1955 Acct:[id number] Age/Sex: 69 / F ADM Date: Loc: ICXD Room: Type: [facility] CLI Attending Dr: Aretha Valadez MACHINE STONE POLISHER Copies to: Aretha Valadez APRN~ Ordering Provider: Aretha Vaaldez APRN Date of Service: 09/14/24 XR/XR tibia [...] Jose Horn M.D.09/14/2024 8:40 PM Dictation Location: [place] [address] Transcribed By: [facility] 09/14/242039 Dictated By: Jose Horn DO 09/14/242034 Signed By: 09/14/242039 [facility] Anderson HospitalXR tibia fibula RT 2V*on 76-93-7234NC tibia fibula RT 2V*[facility] [place] [address] XRay Report Signed Patient: Virgen Gonzales MR# : [id number] : 1955 Acct:[id number] Age/Sex: 69 / F ADM Date: 09/14/24 [facility] Type: [facility] CLI Attending Dr: Aretha Valadez MACHINE STONE POLISHER Copies to: Aretha Valadez APRN Ordering Provider: [...] Jose Horn M.D.09/14/2024 8:40 PM Dictation Location: XINTEC-PC-20 Transcribed By: [facility] 09/14/242039 Dictated By: Jose Horn DO 09/14/242034 Signed By: 09/14/242039[facility] Physician GroupAmbulatory Visit Summaryon 42-74-9120Ksnbhdonnh Visit SummaryAmbulatory Visit Summary VIRGEN GONZALES :1955 [...] Kang BOSS MD Where: [facility] [address] [place] [address]- You Need to Schedule the Following Appointments Follow Up with Kang BOSS MD, URL When: In 6 months Comments: w/TOMEKA Where: [facility] [address], [place] [address]- Medications What How Much When Instructions Unchanged [...] (Nausea) penicillins (Difficulty lobo (more content not included)...[facility] HospitalAmbulatory Visit SummaryAmbulatory Visit Summary VIRGEN GONZALES [...] Kang BOSS MD Where: [place] [address]- You Need to Schedule the Following Appointments Follow Up with Kang BOSS MD, URL When: In 6 months Comments: w/TOMEKA Where: [facility] [address], [place] [address]- Medications What How Much When Instructions Unchanged [...] or concerns Unchanged esomeprazole (Nexium 20 mg Ferdinand) 1 Capsules By Mouth Every day Contact [...] (Nausea) penicillins (Difficulty lobo (more content not included)...[facility] HospitalEM 2 Extremitieson 36-98-7863Yywxgzzyn ulnar neuropathies, axonal loss in type, non localizable, mild in degree electrically bilaterallyCitizens Memorial Healthcare 2 ExtremitiesOrdered By: Olman De La Rosa on 23-66-1166UDYVSalem Memorial District Hospital Work Phone: nVC 9-10 Nerveson 78-91-5047ZFTYSalem Memorial District HospitalBilateral ulnar neuropathies, axonal loss in type, non localizable, mild in degree electrically bilaterally Carpal tunnel syndrome on the left which is minimalGranville Medical CenterNo Panel Informationon 83-36-1458Durwmgr Kaufman, BENT 08/31/2024 8:01 PM M Inj/Asp: R elbow on 08/31/2024 10:53 AM Indications: pain Details: 25 G needle Medications: 1 mL betamethasone acetate-betamethasone sodium phosphate 6 (3-3) MG/ML Consent was given by the patient. [facility] Medical CenterXR Elbow - right 3 Viewson 37-99-7360Dzdqsna Result: Three views of the right elbow, AP/lateral/oblique, taken today and saved to the permanent medical record. Joint spaces are preserved, no swelling in the olecranon bursa, no spurring at the olecranon, no fat pad sign, no bony lesionsGranville Medical CenterRadiology Study observation (narrative)[facility] HealthcareOffice Visiton 92-69-5180Vlpwxq-up [id number] Virgen Harris 1955 F Date Provider Department Center 08/20/2024 Nely-PONCE SILVESTRE CARD [facility] Family History Problem Relation Age of Onset Heart failure Mother Heart failure Father Heart failure Paternal Grandmother Family Status - Relation Status Age at Mother Father Paternal Grandmother Level of Service:[address] [place] OFFICE/OUTPATIENT NEW LOW MDM 30 MINUTESNoal [facility] HospitalC Urineon 44-63-3029Xtoqdypu identified Cx Nom (U)Microbiology PROCEDURE: Urine Culture [R1] SOURCE: U Random BODY SITE: COLLECTED DATE/TIME: 07/07/2024 19:41 EST RECEIVED DATE/TIME: 07/07/2024 20:37 EST START DATE/TIME: 07/07/2024 20:37 EST FREE TEXT SOURCE: Kelly Smith PA-C, PA-C, Kelly Arango FINAL REPORTS Final Report [] Verified Date/Time: 07/09/2024 14:17 EST 25,000 cfu/ml Mixed skin contaminants Performing Locations R1: [facility], [address] [place] [address], [address]- , , UfqrziRvqdsvWood County HospitalComment on above:Performed By: #### [id number] #### [facility] [address], [place] [address]AV Note-Physicianon 81-55-6160LT Note-PhysicianED Note-Physician Basic Information Time Seen: Luis HUNG Kelly BiswasAfshan 07/07/2024 18:19 Chief Complaint c/o neck, left lower back and head pain after syncopal episode at work around 1745. pt unsure of reason to passing out. hx of diabetes, on insulin. pt takes ASA daily History of Present Illness This patient presents emergency department after syncopal episode at work. Patient works [employer] states all of a sudden she was [...] in chart if appl (more content not included)...[facility] HospitalComment on above:Result Comment: Electronically Signed By: Kelly Smith PA-C\.br\Date and Time Signed: 07/08/24 02:10 EST\.br\Electronically Co-Signed By: Ean Azevedo M.D.\.br\Date and Time Co-Signed: 07/09/24 07:05 ESTABO/Rh History Checkon 40-82-9317HKE/Rh History CheckPatient discharged priorWood County HospitalComment on above:Performed By: #### [id number] #### [facility] [address], [place] [address]LM Abdomen/Pelvis w/ Contraston 73-19-4061PW Abdomen/Pelvis w/ ContrastExam Date/Time: 07/07/2024 19:17 EST [...] Contrast: Isovue 300 Contrast amount in ml's: 130NoMercy HealthCT Chest w/ Contraston 18-74-8582TO Chest w/ ContrastExam Date/Time: 07/07/2024 19:17 EST [...] Isovue 300 Contrast amount in ml's: 130NormalFisher [facility] Medical CenterCT Head or Brain w/o Contraston 78-91-0544KE Head or Brain w/o ContrastExam Date/Time: 07/07/2024 [...] Imer Montague MD Transcribed by: JOSH Technologist: MARVINRegional Medical CenterCT Spine Cervical w/o Contraston 03-79-7307XV Spine Cervical w/o ContrastExam Date/Time: 07/07/2024 19:10 [...] Home Lockwood MD Transcribed by: JOSH Technologist: EDWARProMedica Defiance Regional HospitalABO/Rhon 32-41-0596JBC/RhPositiveInvalid Interpretation [facility] Comment on above:Performed By: #### [id number] #### [facility] [address], [place] [address]OLVTdy 07-27-5027HREE Gel InterpNegativeNormalUniversity Hospitals Geneva Medical CenterComment on above:Performed By: #### [id number] #### [facility] [address], [place] [address]N hCG Qualon 54-47-2413Cqww HCG ( test) QlNegative NormalUniversity Hospitals Geneva Medical CenterComment on above:Performed By: #### [id number] #### [facility] [address], [place] [address]SQHNI BANKOrdered By: Calli Greenwood on 61-83-4194YWT/Rh InterpPositiveInvalid Interpretation CodeCOMMUNITY HOSPITAL – [place] BB SubsectionABSC Gel Interp Negative (07/07/24 6:48 PM)NormalCOMMUNITY HOSPITAL – OKLAHOMA CITY BB SubsectionBMPon 33-25-2409Aznho gap [Moles/Vol] 11 mmol/LNormal6-16[facility] Medical CenterComment on above:Performed By: #### [id number] #### [facility] [address], [place] [address]Vhccuil [Mass/Vol]9.1 mg/dLNormal8.9-11.1FUniversity Hospitals Parma Medical CenterComment on above:Performed By: #### [id number] #### [facility] [address], [place] [address]Gsexpumb [Moles/Vol]104 mmol/QRnrlww569-249BoygqaUniversity Hospitals Geneva Medical CenterComment on above:Performed By: #### [id number] #### [facility] [address], [place] [address]LU2 [Moles/Vol]26 mmol/UGzsqbc81-37RsyaceUniversity Hospitals Geneva Medical Center Comment on above:Performed By: #### [id number] #### [facility] [address], [place] [address]Wozhkejzos [Mass/Vol]1.8 mg/dLHigh0.5-1.3FUniversity Hospitals Parma Medical CenterComment on above:Performed By: #### [id number] #### [facility] [address], [place] [address]Ussranw [Mass/Vol]154 mg/fUQglzqx00-221OwpdqhUniversity Hospitals Geneva Medical CenterComment on above:Performed By: #### [id number] #### [facility] [address], [place] [address]Fhtgpavtv [Moles/Vol]3.6 mmol/LNormal3.5-5.3FUniversity Hospitals Parma Medical CenterComment on above:Performed By: #### [id number] #### [facility] [address], [place] [address]Elznhd [Moles/Vol]137 mmol/LDlbezg046-156KwhzqgUniversity Hospitals Geneva Medical CenterComment on above:Performed By: #### [id number] #### [facility] [address], [place] [address]Xzhm nitrogen [Mass/Vol]23 mg/dLHigh5-21[facility] Medical CenterComment on above:Performed By: #### [id number] #### [facility] [address], [place] [address]Dxav nitrogen/Creatinine [Mass ratio]13 No SuyvbQnhifr70-22 [facility] CenterComment on above:Performed By: #### [id number] #### [facility] [address], [place] [address]Zrrsm Bank ID#on [id number]#[id number] Interpretation CodeUniversity Hospitals Geneva Medical CenterComment on above:Performed By: #### [id number] #### [facility] [address], [place] [address]QAN w/ Auto Diffon 18-18-7866Myculormm/100 WBC (Bld)0.6 %Normal 0.0-2.0[facility] Geneva Medical CenterComment on above:Result Comment: Collection date/time has been modified to: 18:23:00. Previous collection d ate/time: 18:45:00.Performed By: #### [id number] #### [facility] [address] [place] [address]Teohkrjqw/Leukocytes Auto (Bld) [Pure # fraction]0.1 E9/LNormal 0.0-0.2FUniversity Hospitals Parma Medical CenterComment on above:Result Comment: Collection date/time has been modified to: 18:23:00. Previous collection d ate/time: 18:45:00.Performed By: #### [id number] #### [facility] [address] [place] [address]Uwzwyivgfkv (Bld) [#/Vol]0.3 E9/LNormal0.0-0.5FUniversity Hospitals Parma Medical CenterComment on above:Result Comment: Collection date/time has been modified to: 18:23:00. Previous collection date/time: 18:45:00.Performed By: #### [id number] #### [facility] [address] [place] [address]Hrikrvbexbi/100 WBC (Bld)3.1 %Normal0.0-8.0[facility] Medical CenterComment on above:Result Comment: Collection date/time has been modified to: 18:23:00. Previous collection date/time: 18:45:00. Performed By: #### [id number] #### [facility] [address] [place] [address]Jxpeppyiohf distribution width (RBC) [Ratio]15.1 %High10.9-14.2 [facility] Geneva Medical CenterComment on above:Result Comment: Collection date/time has been modified to: 18:23:00. Previous collection date/time: 18:45:00.Performed By: #### [id number] #### [facility] [address] [place] [address]Xytivzzfkn (Bld) [Volume fraction]38.3 %Yxwlbq89.0-46.0[facility] Medical CenterComment on above:Result Comment: Collection date/time has been modified to: 18:23:00. Previous collection date/time: 18:45:00.Performed By: #### [id number] #### [facility] [address], [place] [address]Xehdnadtbf (Bld) [Mass/Vol]12.7 g/bKCkisyu42.0-16.0[facility] CenterComment on above:Result Comment: Collection date/time has been modified to: 18:23:00. Previous collection date/time: 18:45:00.Performed By: #### [id number] #### [facility] [address] [place] [address]Ckzatthtzun (Bld) [#/Vol]2.4 E9/LNormal1.0-4.0[facility] CenterComment on above:Result Comment: Collection date/time has been modified to: 18:23:00. Previous collection date/time: 18:45:00.Performed By: #### [id number] #### [facility] [address] [place] [address]Fyhfratgjoj/100 WBC (Bld)26.6 %Rbgyta77.0-50.0[facility] Medical CenterComment on above:Result Comment: Collection date/time has been modified to: 18:23:00. Previous collection date/time: 18:45:00.Performed By: #### [id number] #### [facility] [address] [place] [address]LRA (RBC) [Entitic mass]29.9 huUlogoa21.0-34.0[facility] Medical CenterComment on above:Result Comment: Collection date/time has been modified to: 18:23:00. Previous collection date/time: 18:45:00.Performed By: #### [id number] #### [facility] [address] [place] [address]YFMY (RBC) [Mass/Vol]33.1 g/eUAshnta74.4-36.0[facility] CenterComment on above:Result Comment: Collection date/time has been modified to: 18:23:00. Previous collection date/time: 18:45:00.Performed By: #### [id number] #### [facility] [address], [place] [address]FUC (RBC) [Entitic vol]90.2 uFSaewuz83.0-100.0[facility] CenterComment on above:Result Comment: Collection date/time has been modified to: 18:23:00. Previous collection date/time: 18:45:00.Performed By: #### [id number] #### [facility] [address] [place] [address]Frqjdsqux (Bld) [#/Vol]0.5 E9/LNormal0.2-1.0[facility] CenterComment on above:Result Comment: Collection date/time has been modified to: 18:23:00. Previous collection date/time: 18:45:00.Performed By: #### [id number] #### [facility] [address], [place] [address]Ndotzjbeofz (Bld) [#/Vol]5.8 E9/LNormal2.0-7.5FUniversity Hospitals Parma Medical CenterComment on above:Result Comment: Collection date/time has been modified to: 18:23:00. Previous collection date/time: 18:45:00.Performed By: #### [id number] #### [facility] [address], [place] [address]Aaodebkwyyu/100 WBC (Bld)64.2 %Fntcxz75.0-75.0[facility] CenterComment on above:Result Comment: Collection date/time has been modified to: 18:23:00. Previous collection date/time: 18:45:00.Performed By: #### [id number] #### [facility] [address], [place] [address]Nezdkbvq mean volume (Bld) [Entitic vol]10.1 fLNormal6.4-10.8 [facility] CenterComment on above:Result Comment: Collection date/time has been modified to: 18:23:00. Previous collection date/time: 18:45:00.Performed By: #### [id number] #### [facility] [address], [place] [address]Tgqsmssng (Bld) [#/Vol]183.0 E9/RHzrjjs126.0-500.0[facility] CenterComment on above:Result Comment: Collection date/time has been modified to: 18:23:00. Previous collection date/time: 18:45:00.Performed By: #### [id number] #### [facility] [address], [place] [address]PMZ (Bld) [#/Vol]4.2 E12/LLow4.3-5.9[facility] Comment on above:Result Comment: Collection date/time has been modified to: 18:23:00. Previous collection date/time: 18:45:00.Performed By: #### [id number] #### [facility] [address], [place] [address]HXQ corrected for nucl RBC Auto (Bld) [#/Vol]9.1 E9/LNormal 4.0-11.0[facility] CenterComment on above:Result Comment: Collection date/time has been modified to: 18:23:00. Previous collection d ate/time: 18:45:00.Performed By: #### [id number] #### [facility] [address], [place] [address]Mmdhstxwp/100 WBC (Bld)0.6 %Normal0.0-2.0[facility] CenterComment on above:Performed By: #### [id number] #### [facility] [address] [place] [address]Dwcyfqsot/Leukocytes Auto (Bld) [Pure # fraction]0.1 E9/LNormal 0.0-0.2FUniversity Hospitals Parma Medical CenterComment on above:Performed By: #### [id number] #### [facility] [address] [place] [address]Nopxidtyxhj (Bld) [#/Vol]0.3 E9/LNormal0.0-0.5FUniversity Hospitals Parma Medical CenterComment on above:Performed By: #### [id number] #### [facility] [address] [place] [address]Mvdsgirvrjj/100 WBC (Bld)3.1 %Normal0.0-8.0[facility] CenterComment on above:Performed By: #### [id number] #### [facility] [address] [place] [address]Hyncsjwpqbq distribution width (RBC) [Ratio]15.1 %High10.9-14.2 [facility] CenterComment on above:Performed By: #### [id number] #### [facility] [address] [place] [address] 98069Hajaikkzfd (Bld) [Volume fraction]38.3 %Wpzdav56.0-46.0[facility] CenterComment on above:Performed By: #### [id number] #### [facility] [address] [place] [address] 45275Slepkhveaw (Bld) [Mass/Vol]12.7 g/dRSidgri65.0-16.0[facility] CenterComment on above:Performed By: #### [id number] #### [facility] [address] [place] [address] 31181Lgvhyjmgsep (Bld) [#/Vol]2.4 E9/LNormal1.0-4.0[facility] CenterComment on above:Performed By: #### [id number] #### [facility] [address] [place] [address] 09561Mysvewrrmlz/100 WBC (Bld)26.6 %Jtzpfb77.0-50.0[facility] CenterComment on above:Performed By: #### [id number] #### [facility] [address] [place] [address] 73451OXF (RBC) [Entitic mass]29.9 fmDbafgm03.0-34.0[facility] CenterComment on above:Performed By: #### [id number] #### [facility] [address] [place] [address] 72993TDXW (RBC) [Mass/Vol]33.1 g/sOUnszgx47.4-36.0[facility] CenterComment on above:Performed By: #### [id number] #### [facility] [address] [place] [address] 69599EXG (RBC) [Entitic vol]90.2 sYJjnpkg77.0-100.0[facility] CenterComment on above:Performed By: #### [id number] #### [facility] [address] [place] [address] 08098Dxxzpnskk (Bld) [#/Vol]0.5 E9/LNormal0.2-1.0[facility] CenterComment on above:Performed By: #### [id number] #### [facility] [address] [place] [address] 58200Trdzdvtwhcb (Bld) [#/Vol]5.8 E9/LNormal2.0-7.5FUniversity Hospitals Parma Medical CenterComment on above:Performed By: #### [id number] #### [facility] [address] [place] [address] 22417Zopyjeapyce/100 WBC (Bld)64.2 %Dzeexs81.0-75.0[facility] CenterComment on above:Performed By: #### [id number] #### [facility] [address] [place] [address] 57146Lpbwfeng mean volume (Bld) [Entitic vol]10.1 fLNormal6.4-10.8 [facility] CenterComment on above:Performed By: #### [id number] #### [facility] [address] [place] [address] 99196Peimjabzr (Bld) [#/Vol]183.0 E9/OOrqtqu723.0-500.0[facility] CenterComment on above:Performed By: #### [id number] #### [facility] [address] [place] [address] 80465OCT (Bld) [#/Vol]4.2 E12/LLow4.3-5.9[facility] Comment on above:Performed By: #### [id number] #### [facility] [address] [place] [address] 77425HGZ corrected for nucl RBC Auto (Bld) [#/Vol]9.1 E9/LNormal 4.0-11.0[facility] CenterComment on above:Performed By: #### [id number] #### [facility] [address] [place] [address] 62037FFFBFYZUPFbaiwri By: SYSTEM SYSTEM on 98-15-0972Gbvrzmchflkf Screen method >1000 ng/mL Ql (U)NEGATIVE 7 [...] [Mass/Vol]9.1 mg/dLNormal8.9 - 11.1 mg/dLRemisol ChemChloride [Moles/Vol]104 mmol/PMhnmfy948 - 111 mmol/LRemisol ChemCO2 [Moles/Vol]26 mmol/L Teqkqk01 - 31 mmol/LRemisol ChemCreatinine [Mass/Vol]1.8 mg/dLHigh0.5 - 1.3 mg/dLRemisol VzisrLPM81 mL/min/1.73 m2Low>=59mL/min/1.73 v6Ysisutl ChemEthanol Lvlmg/dLNormal<=11mg/dLRemisol ChemGlobulin (S) [Mass/Vol]2.8 g/dLNormal1.4 - 4.0 gm/dLRemisol ChemGlucose [Mass/Vol]154 mg/uZWqqmkq52 - 199 mg/dLRemisol Chem Lactic Acid Lvl0.9 mmol/LNormal0.5 - 2.2 mmol/LRemisol ChemLipase [Catalytic activity/Vol]22 U/KAuczxh92 - 58 unit/LRemisol ChemMagnesium [Mass/Vol]2.2 mg/dL Normal1.3 - 2.4 mg/dLRemisol ChemMyoglobin [Mass/Vol]128 ng/mLHigh<=69ng/mL Remisol ChemPotassium [Moles/Vol]3.6 mmol/LNormal3.5 - 5.3 mmol/LRemisol Chem Protein [Mass/Vol]6.7 g/dLNormal6.0 - 7.8 gm/dLRemisol ChemSodium [Moles/Vol]137 mmol/HMqflxg676 - 145 mmol/LRemisol ChemTotal CK149 [iU]/nKnbcgy02 - 261 Int._Unit/LRemisol ChemTroponin HS10.70 pg/tQVbefij10.10 - 27.10 pg/mLRemisol ChemComment on above:Interpretive Data: The 95% CI (Confidence Interval) PPV (Positive Predictive Value) for myocardial infarction in females is 38 pg/mL, in males 51 pg/mL. The results should be used in conjunction withclinical conditions of myocardial infarction. (Access High Sensitivity Troponin I Instructions For Use, Lalito [place], February 2018)Urea nitrogen [Mass/Vol]23 mg/dLHigh5 - 21 mg/dLRemisol ChemUrea nitrogen/Creatinine [Mass ratio]13 mg/wwDrhyqc54 - 20Remisol ChemCKon 07-07-2024 Total CK149 Int._Unit/PJomljq60-866Cnjupc [facility] CenterComment on above: Performed By: #### [id number] #### [facility] [address] [place], [place] [address]ZZKWNYCWXAYYlsjysc By: Gerri Chavez on 49-91-7486tDSU Coag (PPP) [Time]31.1 zAmmkei07.1 - 36.5 second(s)[facility] Auto CoagComment on [...] the same coagulation reagent and instrumentation as [facility]. Currently there are no coagulation studies available worldwide for children to 14 days, andno normal ranges. Heparin therapeutic range (represented by Anti-Factor Xa activity of 0.2 - 0.4 U/mL) corresponds to PTT of 56.6 - 109.0 sec.INR Coag (PPP) [Relative time]0.92 {INR}Invalid Interpretation CodeCOMMUNITY HOSPITAL – [place] Auto CoagComment on above:Interpretive Data: INR results are specifically intended to assess patients stabilized on long-term Anticoagulation therapy suggested INR s Less Intensive Anticoagulation 2.0 3.0 Conventional Range 3.0 4.5PT Coag (PPP) [Time]10.3 sNormal9.4 - 12.5 second(s) [facility] Auto CoagComment on [...] the same coagulation reagent and instrumentation as [facility]. Currently there are no coagulation studies available worldwide for children to 14 days, andno normal ranges.ED Clinical Summaryon [id number] Clinical SummaryED Clinical Summary [place] [id number] ED Clinical Summary Person Information Name: VIRGEN GONZALES [facility] Age: 68 Years : 1955 Sex: Female Language: Andorran PCP: AGGIE DAVIS CNP Marital Status: Visit [...] 07/07/2024 22:29:17 07/07/2024 22:29:17 AD[address]: [id number] [facility] [phone] PHYS DOC NOTES: MEDICAL INFORMATION: Prescriptions Given: New Medications [facility], [address] [place] [id number], [phone] cephalexin (cephalexin 500 mg Cap) 1 Capsules [...] EDUCATION INFORMATION: Instructions: Urinary Tract Infection, Adult, Merl-fy-Msgq; Syncope, Adult, Vpsy-gk-Onuq; Head Injury, Adult, Qwad-zs-Bhoh; Contusion, Lrvt-ke-Jjju Follow up: With: Address: When: AGGIE DAVIS [address] [place] [phone] [employer] (more content not included)...[facility] Patient Summaryon [id number] Patient SummaryED Patient Summary [place] [id number] Patient Discharge Instructions Person Information Name: VIRGEN GONZALES Age: 68 Years Arrival Date: 07/07/2024 18:16:48 Discharge Diagnosis: 1:Contusion of occipital region of scalp; 2:Syncope and collapse; 3:Acute lower urinary tract infection Primary Care Physician: AGGIE DAVIS CNP Provider Information Primary Provider: Tiny Fallon DO Advanced St[employer]cher Around:None The exam and treatment you received in the Emergency Department were for an urgent problem and are not intended as complete care. It is important that you follow up with a doctor, nurse practitioner,or physician???s commercial lending assistant for ongoing care. If your symptoms [...] With: Address: When: AGGIE SUSAN [address] [facility] [place] [phone] Business (1) In 3 days 07/10/2024 In the event that this physician does not participate in your insurance network, please consult with your insurance company to find a nearby participating provider. Patient Education Materials: Urinary Tract Infection, Adult, Dcmj-pf-Upgr; Syncope, Adult, Cwsi-rl-Rfkx; Head Injury, Adult, Jsbd-bn-Fkvw; Contusion, Avos-hs-Hptj A MESSAGE TO ALL PATIENTS REGARDING OPIOIDS PRESCRIPTION OPIOIDS: WHAT YOU NEED TO KNOW Prescription opioids can be used to help relieve losywatw-iq-yegqdt pain and are often prescribed following a [...] and Drug Administration (www.fda.gov/Drugs/ResourcesFo (more content not included)...NormalUniversity Hospitals Geneva Medical CenterEthanolon 28-52-8484Dqsldnd Lvl<10Normal<=11[facility] CenterComment on above:Performed By: #### [id number] #### [facility] [address], [place] [address]BXSDMHIRINYqmywjp By: SYSTEM SYSTEM on 09-48-8498Senffkvyw/100 WBC (Bld)0.6 %Normal0.0 - 2.0 %Remisol HemeComment [...] Previous collection date/time: 18:45:00.Hematocrit (Bld) [Volume fraction]38.3 %Zvwujo01.0 - 46.0 %Remisol HemeComment on above: Result Comment: Collection date/time has been modified to: 18:23:00. Previous collection date/time: 18:45:00.Hemoglobin (Bld) [Mass/Vol] 12.7 g/hPFiejde46.0 - 16.0 gm/dLRemisol HemeComment on above:Result Comment: Collection date/time has been modified to: 18:23:00. Previous collection date/time: 18:45:00.Lymphocytes (Bld) [#/Vol]2.4 E9/LNormal 1.0 - 4.0 E9/LRemisol HemeComment on above:Result Comment: Collection date/time has been modified to: 18:23:00. Previous collection date/time: 18:45:00.Lymphocytes/100 WBC (Bld)26.6 %Vsxbtt32.0 - 50.0 %Remisol HemeComment on above:Result Comment: Collection date/time has been modified to: 18:23:00. Previous collection date/time: 18:45:00.MCH (RBC) [Entitic mass]29.9 mnEbfngn95.0 - 34.0 pgRemisol HemeComment on above:Result Comment: Collection date/time has been modified to: 18:23:00. Previous collection date/time: 18:45:00.MCHC (RBC) [Mass/Vol]33.1 g/dLNormal 31.4 - 36.0 gm/dLRemisol HemeComment on above:Result Comment: Collection date/time has been modified to: 18:23:00. Previous collection d ate/time: 18:45:00.MCV (RBC) [Entitic vol]90.2 cFCrgsmz77.0 - 100.0 fL Remisol HemeComment on above:Result [...] 18:23:00. Previous collection date/time: 18:45:00.Neutrophils/100 WBC (Bld)64.2 %Rujhxm61.0 - 75.0 %Remisol HemeComment on above:Result Comment: Collection date/time has been modified to: 18:23:00. Previous collection date/time: 18:45:00.Platelet mean volume (Bld) [Entitic vol]10.1 fLNormal6.4 - 10.8 fLRemisol HemeComment on above:Result Comment: Collection date/time has been modified to: 18:23:00. Previous collection date/time: 18:45:00.Platelets (Bld) [#/Vol]183.0 E9/MNmqbju336.0 - 500.0 E9/LRemisol HemeComment on above:Result Comment: [...] 18:23:00. Previous collection date/time: 18:45:00.Hep Func Panelon 88-29-6959Aprajrh [Mass/Vol]3.9 g/dLNormal3.3-5.0 [facility] CenterComment on above:Performed By: #### [id number] #### [facility] [address], [place] [address]Opeweqw/Globulin (S) [Mass conc ratio]1.5Ziiiny2.1-2.2FUniversity Hospitals Parma Medical CenterComment on above:Performed By: #### [id number] #### [facility] [address], [place] [address]WPL [Catalytic activity/Vol]112 Int._Unit/OManw49-00WqepgiUniversity Hospitals Geneva Medical CenterComment on above:Performed By: #### [id number] #### [facility] [address], [place] [address]RND No additional P-5'-P [Catalytic activity/Vol]11 Int._Unit/L Normal6-46[facility] CenterComment on above:Performed By: #### [id number] #### [facility] [address], [place] [address]KOF [Catalytic activity/Vol]13 Int._Unit/LNormal5-43[facility] CenterComment on above:Performed By: #### [id number] #### [facility] [address], [place] [address]Rpztanazt [Mass/Vol]0.4 mg/dLNormal0.0-1.1FUniversity Hospitals Parma Medical CenterComment on above:Performed By: #### [id number] #### [facility] [address], [place] [address]Riycrhlxh.direct [Mass/Vol]0.1 mg/dLNormal0.0-0.4FUniversity Hospitals Parma Medical CenterComment on above:Performed By: #### [id number] #### [facility] [address], [place] [address]Fqgeadjyw.indirect [Mass or moles/Vol]0.3 mg/dLNormal0.1-0.9 [facility] CenterComment on above:Performed By: #### [id number] #### [facility] [address], [place] [address]Fvextwdl (S) [Mass/Vol]2.8 g/dLNormal1.4-4.0[facility] CenterComment on above:Performed By: #### [id number] #### [facility] [address], [place] [address]Bzqaqja [Mass/Vol]6.7 g/dLNormal6.0-7.8[facility] CenterComment on above:Performed By: #### [id number] #### [facility] [address] [place] [address]Gvkhkq Acidon 28-88-6133Hplqex Acid Lvl0.9 mmol/LNormal0.5-2.2 [facility] CenterComment on above:Performed By: #### [id number] #### [facility] [address], [place] [address]Dmkflf Levelon 70-08-6289Phksrx [Catalytic activity/Vol]22 U/L Apuwpa73-08MovxslUniversity Hospitals Geneva Medical CenterComment on above:Performed By: #### [id number] #### [facility] [address] [place] [address]Vldgmtonojo 11-03-7093Evfhgvfjj [Mass/Vol]2.2 mg/dLNormal 1.3-2.4FUniversity Hospitals Parma Medical CenterComment on above:Performed By: #### [id number] #### [facility] [address], [place] [address]Fhjtjjyvehm 91-40-3276Hdkuqmszt [Mass/Vol]128 ng/mLHigh<=69 [facility] CenterComment on above:Performed By: #### [id number] #### [facility] [address], [place] [address]UH & PTTon 63-48-8816qGHZ Coag (PPP) [Time]31.1 second(s)Normal 25.1-36.5Fisher [facility] Medical CenterComment on above:Result Comment: Parameter 15 days - [...] the same coagulation reagent and instrumentation as [facility]. Currently there are no coagulation studies available worldwide for children to 14 days, andno normal ranges. Heparin therapeutic range (represented by Anti-Factor Xa activity of 0.2 - 0.4 U/mL) corresponds to PTT of 56.6 - 109.0 sec.Performed By: #### [id number] #### [facility] [address], [place] [address]AML Coag (PPP) [Relative time]0.92 {INR}Invalid Interpretation CodeFisher [facility]itus Medical CenterComment on above:Result Comment: INR results are specifically intended to assess patients stabilized on long-term Anticoagulation therapy suggested INR???s ???Less Intensive Anticoagulation??? 2.0 ??? 3.0 Conventional Range 3.0 ??? 4.5Performed By: #### [id number] #### [facility] [address], [place] [address]SY Coag (PPP) [Time]10.3 second(s)Normal9.4-12.5Frachel [facility] Medical CenterComment on above:Result Comment: 15 days - 4 [...] the same coagulation reagent and instrumentation as [facility]. Currently there are no coagulation studies available worldwide for children to 14 days, andno normal ranges.Performed By: #### [id number] #### [facility] [address], [place] [address]JGGHCKHDHhlgvcf By: Gerri Chavez on 05-75-4755Rpki HCG ( test) QlNegative (07/07/24 6:23 PM)NormalCOMMUNITY HOSPITAL [facility] [place] Man SeroTroponinon 81-21-1765Vuiufshh HS10.70 pg/mL Trizbi82.10-27.10[facility] CenterComment on above:Result Comment: The 95% CI (Confidence Interval) PPV (Positive Predictive Value) for myocardial infarction in females is 38 pg/mL, in males 51 pg/mL. The results should be used in conjunction with clinical conditions of myocardial infarction. (Access High Sensitivity Troponin I Instructions For Use, Lalito [place], February 2018)Performed By: #### [id number] #### [facility] [address], [place] [address]H Drug Screenon 48-86-4460Aapmtxyxeenv Screen method >1000 ng/mL Ql (U)NegativeNormalNEGATIVEUniversity Hospitals Geneva Medical CenterComment on above: Result Comment: Negative Cutoff: <1000 ng/mLPerformed By: #### [id number] #### [facility] [address], [place] [address]Eblgpzagamiw Screen Ql (U)NegativeNormalNEGATIVEUniversity Hospitals Geneva Medical CenterComment on above:Result Comment: Negative Cutoff: <200 ng/mL Performed By: #### [id number] #### [facility] [address], [place] [address]Oszjbqzlhwbjpmf Ql (U)NegativeNormalNEGWilson Street HospitalComment on above:Result Comment: Negative Cutoff: <200 ng/mL Performed By: #### [id number] #### [facility] [address], [place] [address]Lmarzblwatgs Screen Ql (U)NegativeNormalNEGATIVEUniversity Hospitals Geneva Medical CenterComment on above:Result Comment: Negative Cutoff: <50 ng/mL Performed By: #### [id number] #### [facility] [address] [place] [address]Noaqnof Ql (U)NegativeNormalNEGATIVEUniversity Hospitals [facility] Center Comment on above:Result Comment: Negative Cutoff: <300 ng/mLPerformed By: #### [id number] #### [facility] [address], [place] [address]Ltdoxav Screen Ql (U)NegativeNormalNEGATIVEUniversity Hospitals Geneva Medical CenterComment on above:Result Comment: Negative Cutoff: <300 ng/mLPerformed By: #### [id number] #### [facility] [address] [place] [address]Wpbjntbopeggr Screen method >25 ng/mL Ql (U)NegativeNormal NEGATIVEUniversity Hospitals Geneva Medical CenterComment on above:Result Comment: Negative Cutoff: <25 ng/mL These drug screen results are to be used for medical (i.e., treatment) purposes only. Unconfirmed drug screening results must not be used for non-medical purposes (e.g., employment testing, legal testing).Performed By: #### [id number] #### [facility] [address], [place] [address]P FentanylNegativeNormalNEGATIVEUniversity Hospitals Geneva Medical Center Comment on above:Result Comment: Negative Cutoff: <5 ng/mL These drug screen results are to be used for medical (i.e., treatment) purposes only. Unconfirmed drug screening results must not be used for non-medical purposes (e.g., employment testing, legal testing).Performed By: #### [id number] #### [facility] [address], [place] [address]FG with Cult Rflxon 71-22-2401Smzyytdt Auto Ql (U)1+ /HPF AbnormalTraceUniversity Hospitals Geneva Medical CenterComment on above:Performed By: #### [id number] #### [facility] [address], [place] [address]Jnrdwrsqv Ql (U)NegativeNormalNegTwin City HospitalComment on above:Performed By: #### [id number] #### [facility] [address], [place] [address]Obihbwv (U)Ex.TurbidAbnormalClearFisher [facility] Comment on above:Performed By: #### [id number] #### [facility] [address], [place] [address]Zseqq (U)Light-OrangeAbnormalYellowUniversity Hospitals Geneva Medical Center Comment on above:Result Comment: Microscopic readings are only performed on those samples that meet specific criteria set forth by [facility].Performed By: #### [id number] #### [facility] [address], [place] [address]Jjyhsbhast cells.squamous Auto (Urine sed) [#/Area]>10Invalid Interpretation CodeUniversity Hospitals Geneva Medical CenterComment on above:Performed By: #### [id number] #### [facility] [address], [place] [address]Vitegsx Ql (U)4+ mg/dLAbnormalNegativeUniversity Hospitals Geneva Medical CenterComment on above:Performed By: #### [id number] #### [facility] [address], [place] [address]Uaflcrmtav Auto test strip (U) [Mass/Vol]1+ mg/dLAbnormal NegativeUniversity Hospitals Geneva Medical CenterComment on above:Performed By: #### [id number] #### [facility] [address], [place] [address]Ehkmwts Auto test strip Ql (U)NegativeNormalNegTwin City HospitalComment on above:Performed By: #### [id number] #### [facility] [address], [place] [address]Vjemenxpj esterase Auto test strip Ql (U)500 Isidoro/uLAbnormal NegativeUniversity Hospitals Geneva Medical CenterComment on above:Performed By: #### [id number] #### [facility] [address], [place] [address]Bmagv Auto Ql (U)NegativeNormalNegativeUniversity Hospitals Geneva Medical CenterComment on above:Performed By: #### [id number] #### [facility] [address], [place] [address]Vmhcuym Auto test strip Ql (U)NegativeNormalNegativeUniversity Hospitals Geneva Medical CenterComment on above:Performed By: #### [id number] #### [facility] [address], [place] [address]zK (U)6.5 [pH]Invalid Interpretation Code5.0-9.0[facility] CenterComment on above:Performed By: #### [id number] #### [facility] [address], [place] [address]Wtzwwuh Ql (U)TraceAbnormalNegativeUniversity Hospitals [facility] Center Comment on above:Performed By: #### [id number] #### [facility] [address] [place] [address]CCI Ql (U)35-82Hrgsyidu0-2XboknnUniversity Hospitals Parma Medical CenterComment on above:Performed By: #### [id number] #### [facility] [address], [place] [address]Phovxkpt gravity (U) [Rel density]1.019Invalid Interpretation Code1.005-1.030[facility] CenterComment on above:Performed By: #### [id number] #### [facility] [address], [place] [address]Qsiqsizrhcet (U) [Mass/Vol]NegativeNormalNegativeUniversity Hospitals Geneva Medical CenterComment on above:Performed By: #### [id number] #### [facility] [address], [place] [address]DSG Auto (Urine sed) [#/Area]84-28Fscnyjau7-0Lzukpk [facility] Medical CenterComment on above:Performed By: #### [id number] #### [facility] [address], [place] [address]Jbtdh.budding Computer assisted Ql (U)TraceAbnoMercy HealthComment on above:Performed By: #### [id number] #### [facility] [address], [place] [address]Mugw of Urine collection methodClean CatchWood County HospitalComment on above:Performed By: #### [id number] #### [facility] [address], [place] [address]ROXEHFHWZKDzyeumw By: SYSTEM SYSTEM on 38-24-3732Zrpmmkvs Auto Ql (U)1+ /HPFInvalid Interpretation CodeTrace/HPFCOMMUNITY [facility]ITAL [facility] [place] [place] UA Auto SSBilirubin Ql (U) NegativeNormalNegativemg/dLCOMMUNITY HOSPITAL [facility] [place] UA Auto SSClarity (U)Ex.Turbid *ABN* (07/07/24 7:41 PM)Invalid Interpretation CodeClearFC UA Auto SSColor (U)Light- Price 3 *ABN* (07/07/24 7:41 PM)Invalid Interpretation CodeYellowCOMMUNITY HOSPITAL – [place] UA Auto SSComment on above:Interpretive Data: Microscopic readings are only performed on those samples that meet specific criteria set forth by [facility].Epithelial cells.squamous Auto (Urine sed) [#/Area]>10 graded/HPF Invalid Interpretation CodeFT UA Auto SSGlucose Ql (U)4+ mg/dLInvalid Interpretation CodeNegativemg/dLCOMMUNITY [facility] [place] U[place] Auto SSHemoglobin Auto test strip (U) [Mass/Vol]1+ mg/dLInvalid Interpretation CodeNegativemg/dLCOMMUNITY [facility] [place] Auto SSKetones Auto test strip Ql (U)NegativeNormalNegativemg/dLCOMMUNITY [facility] [place] Auto SSLeukocyte esterase Auto test strip Ql (U)500 Isidoro/uL Isidoro/uLInvalid Interpretation Code NegativeLeu/uLFT UA Auto SSMucus Auto Ql (U)NegativeNormalNegativegraded/LPF [facility] [place] UA Auto SSNitrite Auto test strip Ql (U)NegativeNormalNegativemg/dLCOMMUNITY [facility] [place] Auto SSpH (U)6.5 *NA* (07/07/24 7:41 PM)Invalid Interpretation Code5.0 - 9.0[facility] [place] [facility] Auto SSProtein Ql (U)Trace mg/dLInvalid Interpretation CodeNegativemg/dLCOMMUNITY [facility] [place] U[place] Auto SSRBC Ql (U) 31-75 graded/HPFInvalid Interpretation Code0-3graded/HPFCOMMUNITY HOSPITAL – [place] Auto SSSpecific gravity (U) [Rel density]1.019 *NA* (07/07/24 7:41 PM)Invalid Interpretation Code1.005 - 1.030[facility] [place] [facility] Auto SS Urobilinogen (U) [Mass/Vol]NegativeNormalNegativemg/dLCOMMUNITY [facility] [place] Auto SSWBC Auto (Urine sed) [#/Area]31-75 graded/HPFInvalid Interpretation Code0-5graded/HPFCOMMUNITY [facility] [place] UA Auto SSYeast.budding Computer assisted Ql (U)Trace graded/HPFInvalid Interpretation CodeCOMMUNITY HOSPITAL – [place] Auto SSURINALYSISOrdered By: Kelly Smith on 50-80-4035HL Spec DescClean Catch (07/07/24 7:41 PM)NormalCOMMUNITY HOSPITAL – [place] [facility] Auto SS eGFRon 17-18-0240vHQI31 mL/min/1.73 m2Low>=59Fisher [facility]itus Medical CenterComment on above:Performed By: #### [id number] #### [facility] [address] [place] [address]2736Bgxvaxhhirr [Units/volume] in Serum or PlasmaOrdered By: Da Phillip on 44-97-6344GGN Qn1.31 m[IU]/L0.45-5.33[facility] HospitalThyroxine (T4) [Mass/volume] in Serum or PlasmaOrdered By: Da Phillip on 96-15-9083M8 [Mass/Vol]9.37 ug/dL5.39-11.82[facility] Triiodothyronine (T3) [Mass/volume] in Serum or PlasmaOrdered By: Da Phillip on 42-29-4509E6 [Mass/Vol]0.90 ng/mL0.87-1.78[facility] HospitalNonvisit Note - PTon 42-90-7672Tqhhjmhr Note - PTPt cancelled reassessment due to being sick. AMKNwoodrowUniversity Hospitals Geneva Medical CenterNonvisit Note - PTon 19-17-5750Yejmzzwk Note - PTPt no showed for 1715 appointment.Miguelina Dent [facility] CenterNonvisit Note - PTon 57-42-1798Pciaccur Note - PTPt called to cancel as she is ill.NormalUniversity Hospitals Geneva Medical CenterConsent for Treatmenton 65-11-4743Kzwhciz for Treatment [id number]#1.00TIFAdena Fayette Medical CenterPT - Assessmentson 06-94-9422SW - Assessments [id number]#1.00TIFAdena Fayette Medical CenterPT - Consentson 38-60-4853XC - Consents [id number]#1.00TIFAdena Fayette Medical CenterInsurance Correspondenceon 45-26-4475Mfyjrocvf Correspondence [id number]#1.00TIFAdena Fayette Medical CenterPT - Orderson 59-18-5227SR - Orders [id number]#1.00TIFAdena Fayette Medical CenterL Inj/Asp: L kneeon 16-86-2763Kmstfdm Kaufman, ARRT 09/02/2023 8:37 AM L Inj/Asp: L knee on 08/27/2023 3:43 PM Indications: pain Details: 21 G needle, lateral approach Medications: 16 mg hylan 16 MG/2ML Consent was given by the patient. [facility] CenterPROF 14(COMP METB)on 49-82-4971Mvlavio [Mass/Vol] 3.2 g/dLCritically low3.4-5.0[facility] Medical CenterComment on above:Performed By: #### TSH, CMP, T7, LIPID #### [facility] [address] [address] [address] Danay De Los SantosAlbumin/Globulin [Mass ratio]1.0 {ratio}NormalThe [facility] Regional Hospitalment on above:Performed By: #### TSH, CMP, T7, LIPID #### [facility] [address] [place] [address] Dr. Danay RomanoP [Catalytic activity/Vol]92 U/ESuwibt00-483Wqz [facility] HospitalComment on above:Performed By: #### TSH, CMP, T7, LIPID #### [facility] [address] [place] [address] Dr. Danay RomanoT [Catalytic activity/Vol]21 U/OPsmiax90-59Pll [facility] HospitalComment on above:Performed By: #### TSH, CMP, T7, LIPID #### [facility] [address] [place] [address] Dr. Danay De Los SantosAnion gap [Moles/Vol]13.2 mmol/LNormalThe [facility] Comment on above:Performed By: #### TSH, CMP, T7, LIPID #### [facility] [address] [place] [address] Dr. Danay De Los SantosAST [Catalytic activity/Vol]14 U/LCritically bbt82-62Wuo [facility] on above:Performed By: #### TSH, CMP, T7, LIPID #### [facility] [address] [place] [address] Dr. Danay De Los SnatosBilirubin [Mass/Vol]0.2 mg/dLNormal0.2-1.0The [facility] Comment on above:Performed By: #### TSH, CMP, T7, LIPID #### [facility] [address] [place] [address] Dr. Danay De Los SantosCalcium [Mass/Vol]8.6 mg/dLNormal8.5-10.1[facility] Comment on above:Performed By: #### TSH, CMP, T7, LIPID #### [facility] [address] [place] [address] Dr. Danay De Los SantosChloride [Moles/Vol]105 mmol/HAxxdvz07-017Nvv [facility] Comment on above:Performed By: #### TSH, CMP, T7, LIPID #### [facility] [address] [address] [address] Danay De Los SantosCO2 [Moles/Vol]27.9 mmol/KFlwucv73.0-32.0The [facility] Comment on above:Performed By: #### TSH, CMP, T7, LIPID #### [facility] [address] [address] [address] Danay De Los SantosCreatinine [Mass/Vol]1.47 mg/dLCritically high0.55-1.02The [facility] HospitalComment on above:Performed By: #### TSH, CMP, T7, LIPID #### [facility] [address] [address] [address] Jon ChangEGFR-AF TEKWLSFO08 mL/min/1.43s2Uypqaqkwql low>=60The [facility] HospitalComment on above:Performed By: #### TSH, CMP, T7, LIPID #### [facility] [address] [address] [address] Danay CarterGFR-NON AF MWQAXZWN12 mL/min/1.83f8Sftzbwpcrt low>=60The [facility] HospitalComment on above:Performed By: #### TSH, CMP, T7, LIPID #### [facility] [address] [address] [address] Danay De Los SantosGlobulin (S) [Mass/Vol]3.3 g/dLNormalThe [facility] HospitalComment on above:Performed By: #### TSH, CMP, T7, LIPID #### [facility] [address] [address] [address] Danay De Los SantosGlucose [Mass/Vol]145 mg/dLCritically sizg67-783Ith [facility] HospitalComment on above:Performed By: #### TSH, CMP, T7, LIPID #### [facility] [address] [address] [address] Danay De Los SantosPotassium [Moles/Vol]4.1 mmol/LNormal3.5-5.1The [facility] Comment on above:Performed By: #### TSH, CMP, T7, LIPID #### [facility] [address] [address] [address] Danay De Los SantosProtein [Mass/Vol]6.5 g/dLNormal6.4-8.2The [facility] Comment on above:Performed By: #### TSH, CMP, T7, LIPID #### [facility] [address] [address] [address] Danay De Los SantosSodium [Moles/Vol]142 mmol/KRbpxam219-093CtnMetrohealth [facility] Heights Medical Center Comment on above:Performed By: #### TSH, CMP, T7, LIPID #### [facility] [address] [place] [address] Dr. Danay De Los SantosUrea nitrogen [Mass/Vol]22.0 mg/dLCritically high7.0-18.0[facility] Medical CenterComment on above:Performed By: #### TSH, CMP, T7, LIPID #### [facility] [address] [address] [address] Danay Mccall nitrogen/Creatinine [Mass ratio]15.0 mg/mgNormalThe [facility] HospitalComment on above:Performed By: #### TSH, CMP, T7, LIPID #### [facility] [address] [place] [address] Dr. Danay De Los SantosPROF CHEM 8 (BAS METB)on 95-83-4175Gsbbf gap [Moles/Vol]12.1 mmol/LNormalMetrohealth Cleveland Heights Medical CenterComment on above:Performed By: #### BMP #### [facility] [address] [place] [address] Dr. Danay De Los SantosCalcium [Mass/Vol]8.8 mg/dLNormal8.5-10.1The [facility] Comment on above:Performed By: #### BMP #### [facility] [address] [place] [address] Dr. Danay De Los SantosChloride [Moles/Vol]103 mmol/VHrkbgv77-131DlkMetrohealth [facility] Medical Center Comment on above:Performed By: #### BMP #### [facility] [address] [address] [address] Danay De Los SantosCO2 [Moles/Vol]28.6 mmol/BAiubbu17.0-32.0The [facility] Comment on above:Performed By: #### BMP #### [facility] [address] [address] [address] Danay De Los SantosCreatinine [Mass/Vol]2.08 mg/dLCritically high0.55-1.02The [facility] HospitalComment on above:Performed By: #### BMP #### [facility] [address] [address] [address] Jon ChangEGFR-AF FETDWSPB43 mL/min/1.61b3Xwnnqkmzwc low>=60The [facility] HospitalComment on above:Performed By: #### BMP #### [facility] [address] [place] [address] Dr. Danay CarterGFR-NON AF DUBYZYNG52 mL/min/1.48l1Uuriqubzdz low>=60The [facility] HospitalComment on above:Performed By: #### BMP #### [facility] [address] [address] [address] Danay De Los SantosGlucose [Mass/Vol]259 mg/dLCritically aymf20-371Tho [facility] HospitalComment on above:Performed By: #### BMP #### [facility] [address] [address] [address] Danay De Los SantosPotassium [Moles/Vol]4.7 mmol/LNormal3.5-5.1The [facility] Comment on above:Performed By: #### BMP #### [facility] [address] [address] [address] Danay De Los SantosSodium [Moles/Vol]139 mmol/OFmljqo003-176Evr [facility] Comment on above:Performed By: #### BMP #### [facility] [address] [place] [address] Dr. Danay De Los SantosUrea nitrogen [Mass/Vol]27.0 mg/dLCritically high7.0-18.0The [facility] HospitalComment on above:Performed By: #### BMP #### [facility] [address] [place] [address] Dr. Danay Mccall nitrogen/Creatinine [Mass ratio]13.0 mg/mgNormalThe [facility] HospitalComment on above:Performed By: #### BMP #### [facility] [address] [place] [address] Dr. Danay De Los SantosINSULINon 06-99-0808Yijtfgi63.1 uIU/mLNormal2.6-24.9The [facility] HospitalComment on above:Performed By: #### INSULIN #### [facility] [address] [place] [address] Dr. Danay De Los SantosBNRich 49-25-1045Fwyccrohthq peptide B (Bld) [Mass/Vol]110.0 pg/mL Normal<=900.0The [facility] HospitalComment on above:Performed By: #### TSH, CMP, T7, LIPID #### [facility] [address] [place] [address] Dr. Danay DaviesC AUTO DIFFon 88-80-1573ZJRA #0.1 103/ulNormal0.0-0.1[facility] Medical CenterComment on above:Performed By: #### TSH, CMP, T7, LIPID #### [facility] [address] [place] [address] Dr. Danay De Los SantosBasophils/100 WBC (Bld)0.5 %Normal0.2-2.0[facility] Comment on above:Performed By: #### TSH, CMP, T7, LIPID #### [facility] [address] [place] [address] Dr. Danay Jones #0.7 103/ulNormal0.0-0.7The [facility] HospitalComment on above: Performed By: #### TSH, CMP, T7, LIPID #### [facility] [address] [place] [address] Dr. Danay Carterosinophils/100 WBC (Bld)6.0 %Normal0.9-7.0The [facility] Comment on above:Performed By: #### TSH, CMP, T7, LIPID #### [facility] [address] [place] [address] Dr. Danay Carterrythrocyte distribution width (RBC) [Ratio]15.6 %Critically high 11.0-15.0The [facility] HospitalComment on above:Performed By: #### TSH, CMP, T7, LIPID #### [facility] [address] [place] [address] Dr. Danay De Los SantosHematocrit (Bld) [Volume fraction]40.2 %Ggqpsx55.0-48.0The [facility] HospitalComment on above:Performed By: #### TSH, CMP, T7, LIPID #### [facility] [address] [place] [address] Dr. Danay De Los SantosHemoglobin (Bld) [Mass/Vol]12.6 g/bZTkuxid93.0-16.0The [facility] HospitalComment on above:Performed By: #### TSH, CMP, T7, LIPID #### [facility] [address] [place] [address] Dr. Danay Michelle #0.06 10e3/ulCritically high0.00-0.03The [facility] Comment on above:Performed By: #### TSH, CMP, T7, LIPID #### [facility] [address] [place] [address] Dr. Danay Michelle %0.5 %Normal0.0-0.5The [facility] HospitalComment on above: Performed By: #### TSH, CMP, T7, LIPID #### [facility] [address] [place] [address] Dr. Danay Estes #3.2 103/ulNormal1.2-3.8The [facility] HospitalComment on above:Performed By: #### TSH, CMP, T7, LIPID #### [facility] [address] [place] [address] Dr. Danay Randhawahocytes/100 WBC (Bld)28.9 %Yvkpao05.5-60.0The [facility] HospitalComment on above:Performed By: #### TSH, CMP, T7, LIPID #### [facility] [address] [place], [place] [id number] Dr. Danay Ward DIFF REQNONormalThe [facility] HospitalComment on above: Performed By: #### TSH, CMP, T7, LIPID #### [facility] [address] [place] [address] Dr. Danay Harmon (RBC) [Entitic mass]27.3 ggYtwujt72.7-34.0The [facility] HospitalComment on above:Performed By: #### TSH, CMP, T7, LIPID #### [facility] [address] [place] [address] Dr. Danay De Los SantosHORTON [facility] (RBC) [Mass/Vol]31.3 g/gLSudatd56.9-35.2The [facility] HospitalComment on above:Performed By: #### TSH, CMP, T7, LIPID #### [facility] [address] [place] [address] Dr. Danay Harmon (RBC) [Entitic vol]87.2 oPImvqud85.0-99.0The [facility] HospitalComment on above:Performed By: #### TSH, CMP, T7, LIPID #### [facility] [address] [place] [address] Dr. Danay Abad #0.6 103/ulNormal0.3-0.8The [facility] HospitalComment on above:Performed By: #### TSH, CMP, T7, LIPID #### [facility] [address] [place] [address] Dr. Danay Alexandreocytes/100 WBC (Bld)5.7 %Normal1.7-12.0The [facility] Comment on above:Performed By: #### TSH, CMP, T7, LIPID #### [facility] [address] [place] [address] Dr. Danay Medina #6.4 103/ulNormal1.4-6.5The [facility] HospitalComment on above:Performed By: #### TSH, CMP, T7, LIPID #### [facility] [address] [place] [address] Dr. Danay Brandutrophils/100 WBC (Bld)58.4 %Egifql90.0-75.0The [facility] HospitalComment on above:Performed By: #### TSH, CMP, T7, LIPID #### [facility] [address] [place] [address] Dr. Danay Beckman mean volume (Bld) [Entitic vol]10.6 fLNormal9.5-13.5The [facility] HospitalComment on above:Performed By: #### TSH, CMP, T7, LIPID #### [facility] [address] [place] [address] Dr. Danay De Los SantosPLT251 103/zoEoptfs433-064Vxu [facility] HospitalComment on above: Performed By: #### TSH, CMP, T7, LIPID #### [facility] [address] [place] [address] Dr. Danay De Los SantosRBC4.61 106/ulNormal4.20-5.40The [facility] HospitalComment on above:Performed By: #### TSH, CMP, T7, LIPID #### [facility] [address] [place] [address] Dr. Danay De Los SantosWBC10.9 103/ulNormal4.0-11.0The [facility] HospitalComment on above:Performed By: #### TSH, CMP, T7, LIPID #### [facility] [address] [place] [address] Dr. Danay Zepeda THYROXINE INDEX T7on 11-82-5666DFY9.52Lmhgnf2.30-4.50The [facility] Hospitalment on above:Performed By: #### TSH, CMP, T7, LIPID #### [facility] [address] [place] [address] Dr. Danay De Los SantosT3U35.0 %Uvlday85.0-39.0The [facility] HospitalComment on above: Performed By: #### TSH, CMP, T7, LIPID #### [facility] [address] [place] [address] Dr. Danay De Los SantosT4 [Mass/Vol]8.20 ug/dLNormal4.80-13.90The [facility] Comment on above:Performed By: #### TSH, CMP, T7, LIPID #### [facility] [address] [address] [address] Danay De Los SantosGLYCOHEMOGLOBIN A1Con 04-87-0655TZF RECOMMENDATIONSEE BELOWTuscarawas HospitalComjohn d. dingell [facility] on above:Result Comment: ADA RECOMMENDED LIMIT 4.0 - 6.0 ADA THERAPEUTIC TARGET < 7.0 ACTION SUGGESTED > 7.0Performed By: #### A1C #### [facility] [address] [address] [address] Danay De Los SantosGlucose [Mass/Vol]203 mg/dLNoBarberton Citizens HospitalComment on above:Performed By: #### A1C #### [facility] [address] [address] [address] Danay De Los SantosHbA1c (Bld) [Mass fraction]8.7 %Critically high4.5-6.2The [facility] HospitalComment on above:Performed By: #### A1C #### [facility] [address] [place] [address] Dr. Danay De Los SantosIROElizabeth 83-82-9160Gvvk [Mass/Vol]39.0 ug/dLCritically low 50.0-170.0[facility] Medical CenterComment on above:Performed By: #### TSH, CMP, T7, LIPID #### [facility] [address] [place] [address] Dr. Danay De Los SantosLIPID PROFILEon 36-23-6317BDGJ-HDL RATIO NORMSEE BELOWSelect Medical Specialty Hospital - TrumbullComment on above:Result Comment: 3.3 - 4.4 LOW RISK 4.4 - 7.1 AVERAGE RISK 7.1 - 11.0 MODERATE RISK >11.0 HIGH RISKPerformed By: #### TSH, CMP, T7, LIPID #### [facility] [address] [place] [address] Dr. Danay De Los SantosCholesterol [Mass/Vol]123 mg/dLNormal<=200The [facility] Comment on above:Performed By: #### TSH, CMP, T7, LIPID #### [facility] [address] [place] [address] Dr. Danay Lopezesterol in HDL [Mass/Vol]40 mg/sGCygddv41-56EudCincinnati VA Medical Center on above:Performed By: #### TSH, CMP, T7, LIPID #### [facility] [address] [address] [address] Danay De Los SantosCholesterol in LDL [Mass/Vol]70.4 mg/dLNoBarberton Citizens HospitalComment on above:Performed By: #### TSH, CMP, T7, LIPID #### [facility] [address] [address] [address] Danay Lopezesterangie.total/Cholesterol in HDL [Mass ratio]3.1 {ratio} NormalMetrohealth Cleveland Heights Medical CenterComjohn d. dingell veterans affairs medical center on above:Performed By: #### TSH, CMP, T7, LIPID #### [facility] [address] [address] [address] Danay Oviedo NORMAL> or = 60 mg/dl - LOW CARDIOVASCULAR RISK <40 mg/dl - HIGH CARDIOVASCULAR RISKNoBarberton Citizens HospitalComment on above:Performed By: #### TSH, CMP, T7, LIPID #### [facility] [address] [address] [address] Danay De Los SantosLDL CALC NORMALSEE BELOWSelect Medical Specialty Hospital - TrumbullComment on above:Result Comment: <100 mg/dl OPTIMAL 100 - 129 mg/dl NEAR OR ABOVE OPTIMAL 130 - 159 mg/dl BORDERLINE HIGH 160 - 189 mg/dl HIGH >190 mg/dl VERY HIGH Performed By: #### TSH, CMP, T7, LIPID #### [facility] [address] [address] [address] Danay De Los SantosTriglyceride [Mass/Vol]63 mg/dLNormal<=150[facility] Comment on above:Performed By: #### TSH, CMP, T7, LIPID #### [facility] [address] [address] [address] Danay De Los SantosVLDL CALC12.6 mg/dLNoBarberton Citizens HospitalComment on above: Performed By: #### TSH, CMP, T7, LIPID #### [facility] [address] [address] [address] Danay Enciso 14(COMP METB)on 21-23-3995Qvpgtse [Mass/Vol]3.3 g/dL Critically low3.4-5.0The [facility] HospitalComment on above:Performed By: #### TSH, CMP, T7, LIPID #### [facility] [address] [place] [address] Dr. Danay De Los SantosAlbumin/Globulin [Mass ratio]1.0 {ratio}NormalThe [facility] HospitalComment on above:Performed By: #### TSH, CMP, T7, LIPID #### [facility] [address] [place] [address] Dr. Danay Braga [Catalytic activity/Vol]94 U/NYeyira76-600Zjn [facility] HospitalComment on above:Performed By: #### TSH, CMP, T7, LIPID #### [facility] [address] [place] [address] Dr. Danay Brown [Catalytic activity/Vol]17 U/UScimbx17-10Tlp [facility] HospitalComment on above:Performed By: #### TSH, CMP, T7, LIPID #### [facility] [address] [place] [address] Dr. Danay Stearns gap [Moles/Vol]14.3 mmol/LNormalThe [facility] Comment on above:Performed By: #### TSH, CMP, T7, LIPID #### [facility] [address] [place] [address] Dr. Danay De Los SantosAST [Catalytic activity/Vol]11 U/LCritically wwn38-53Wxb [facility] Hospitalment on above:Performed By: #### TSH, CMP, T7, LIPID #### [facility] [address] [place] [address] Dr. Danay De Los SantosBilirubin [Mass/Vol]0.3 mg/dLNormal0.2-1.0The [facility] Comment on above:Performed By: #### TSH, CMP, T7, LIPID #### [facility] [address] [place] [address] Dr. Danay De Los SantosCalcium [Mass/Vol]9.1 mg/dLNormal8.5-10.1The [facility] Comment on above:Performed By: #### TSH, CMP, T7, LIPID #### [facility] [address] [address] [address] Danay De Los SantosChloride [Moles/Vol]105 mmol/BUhkrnz09-158EqgMetrohealth Cleveland Heights Medical Center Comment on above:Performed By: #### TSH, CMP, T7, LIPID #### [facility] [address] [address] [address] Danay De Los SantosCO2 [Moles/Vol]29.3 mmol/GHhzhlm38.0-32.0The [facility] Comment on above:Performed By: #### TSH, CMP, T7, LIPID #### [facility] [address] [place] [address] Dr. Danay De Los SantosCreatinine [Mass/Vol]1.53 mg/dLCritically high0.55-1.02The [facility] HospitalComment on above:Performed By: #### TSH, CMP, T7, LIPID #### [facility] [address] [place] [address] Dr. Danay CarterGFR-AF OIENBXZD18 mL/min/1.87c5Hnjqltzmyh low>=60The [facility] HospitalComment on above:Performed By: #### TSH, CMP, T7, LIPID #### [facility] [address] [place] [address] Dr. Danay CarterGFR-NON AF ZWIWHHIK19 mL/min/1.61a8Atytnsviup low>=60The [facility] HospitalComment on above:Performed By: #### TSH, CMP, T7, LIPID #### [facility] [address] [place] [address] Dr. Danay De Los SantosGlobulin (S) [Mass/Vol]3.4 g/dLNormalThe [facility] HospitalComment on above:Performed By: #### TSH, CMP, T7, LIPID #### [facility] [address] [place] [address] Dr. Danay De Los SantosGlucose [Mass/Vol]192 mg/dLCritically waaf65-477Myp [facility] HospitalComment on above:Performed By: #### TSH, CMP, T7, LIPID #### [facility] [address] [address] [address] Danay De Los SantosPotassium [Moles/Vol]4.6 mmol/LNormal3.5-5.1The [facility] [facility] Comment on above:Performed By: #### TSH, CMP, T7, LIPID #### [facility] [address] [address] [address] Danay De Los SantosProtein [Mass/Vol]6.7 g/dLNormal6.4-8.2[facility] Comment on above:Performed By: #### TSH, CMP, T7, LIPID #### [facility] [address] [place] [address] Dr. Danay De Los SantosSodium [Moles/Vol]144 mmol/SXdpovs730-811Bis [facility] Comment on above:Performed By: #### TSH, CMP, T7, LIPID #### [facility] [address] [place] [address] Dr. Danay De Los SantosUrea nitrogen [Mass/Vol]25.0 mg/dLCritically high7.0-18.0[facility] HospitalComment on above:Performed By: #### TSH, CMP, T7, LIPID #### [facility] [address] [place] [address] Dr. Danay Mccall nitrogen/Creatinine [Mass ratio]16.3 mg/mgNormalThe [facility] HospitalComment on above:Performed By: #### TSH, CMP, T7, LIPID #### [facility] [address] [place] [address] Dr. Danay BeyHokaron 97-54-5387IDW2.181 uIU/mLNormal0.358-3.740[facility] Medical CenterComment on above:Performed By: #### TSH, CMP, T7, LIPID #### [facility] [address] [place] [address] Dr. Danay De Los SantosVITAMIN D 25 OHon 29-58-6377IEL D 25-OH32.9 ng/mLNormalThe [facility] HospitalComment on above:Performed By: #### TSH, CMP, T7, LIPID #### [facility] [address] [place], [place] [address] Dr. Danay CHAMBERS [facility] TownshipComment on above: Result Comment: <20 ng/mL Vit D deficient 20 - <30 ng/mL Vit D insufficient 30 - 100 ng/mL Vit D sufficient >100 ng/mL Potential ToxicityPerformed By: #### TSH, CMP, T7, LIPID #### [facility] [address] [place], [place] [address] Dr. Danay Conway ROEL DOP LEG LTon 22-58-7437WQ ROEL DOP LEG LTEXAM: US ROEL DOP [...] Electronically authenticated by: MORIAH MORRISON Date: 2022-12-01 12:54[facility]ullXR Hand Complete Left*on 35-26-1165TX Hand Complete Left* CLINICAL HISTORY: Fall with left hand stiffness. COMPARISON: None. RESULT: No distinct acute fracture. No dislocation. Underlying decreased bone mineral density. Mild to moderate scattered degenerative changes. Soft tissue edema. IMPRESSION: No acute osseous findings radiographically. Report reported and signed by Home Lockwood on 08/24/2022 1108NormalNortPomerene Hospital Medical SpecialistXR Spine Cervical Complete*on 84-96-8577UE Spine Cervical Complete*CLINICAL HISTORY: Fall with posterior [...] and signed by Home Lockwood on 08/24/2022 1109NoGalion Community HospitalXR HAND RIMA MIN 3Von 61-50-6046TN HAND RIMA MIN 3VEXAM: XR HAND RIMA MIN 3V HISTORY: Pain following fall COMPARISON: None. TECHNIQUE: 3 views of each hand FINDINGS: No visualized fracture, dislocation, subluxation or osseous lesion. Age-related joint space changes. No gross visualized soft tissue edema. IMPRESSION: No visualized abnormality Electronically authenticated by: BRIANNA KU Date: 2022-08-06 20:28NoBarberton Citizens HospitalXR HIP RT 2 3V W PELVISon 34-23-8850SP HIP RT 2 3V W PELVIS EXAM: [...] Electronically authenticated by: BRIANNA KU Date: 2022-08-06 20:29NoBarberton Citizens HospitalXR SHOULDER RT 2V or >on 09-47-2530RU SHOULDER RT 2V or >EXAM: XR SHOULDER RT 2V or > HISTORY: Pain from fall COMPARISON: None. TECHNIQUE: 3 views FINDINGS: No osseous lesion, fracture, dislocation or subluxation. Moderate degenerative changes of the acromioclavicular joint. No visualized effusion. No visualized soft tissue edema. IMPRESSION: Normal x-rays Electronically authenticated by: BRIANNA KU Date: 2022-08-06 20:21NoBarberton Citizens HospitalXR Foot Complete Left*on 48-15-7371QV Foot Complete Left* COMPARISON: None available HISTORY: Second and third digit pain after a fall TECHNIQUE: AP, lateral and oblique views of the foot obtained. FINDINGS: No acute fracture or dislocation. Joint spaces are preserved. Soft tissues are within normal limits. IMPRESSION: No acute osseous abnormality. Report reported and signed by Drew Looney on 08/04/2022 1044NormalNoTrinity Health SystemXR Knee Complete Left*on 49-50-4295SS Knee Complete Left* HISTORY: Knee pain since a fall TECHNIQUE: AP, lateral and oblique views of the knee obtained. COMPARISON: Radiographs of the knee 04/06/2019 FINDINGS: No acute fracture or dislocation. Joint spaces of the knee are maintained. No knee joint effusion. Soft tissues are within normal limits. IMPRESSION: No acute osseous abnormality. Report reported and signed by Drew Looney on 08/04/2022 1046NormalNorthern [facility], [place] SpecialistMRI BRAIN WO CONon 42-11-7655VBL BRAIN WO CONEXAMINATION: MRI BRAIN WO CON, [...] Electronically authenticated by: BRIANNA GREEN Date: 2022-07-02 14:48NormElyria Memorial HospitalINSULINon 42-22-7756Wkugihz89.4 uIU/mLNormal2.6-24.9The [facility] HospitalComment on above:Performed By: #### INSULIN #### [facility] [address] [address] [address] Danay Sanderson AUTO DIFFon 15-12-5043FEMD #0.1 103/ulNormal0.0-0.1The [facility] HospitalComment on above:Performed By: #### CBC #### [facility] [address] [address] [address] Danay De Los SantosBasophils/100 WBC (Bld)0.8 %Normal0.2-2.0[facility] Comment on above:Performed By: #### CBC #### [facility] [address] [place] [address] Dr. Danay Jones #0.6 103/ulNormal0.0-0.7The [facility] HospitalComment on above: Performed By: #### CBC #### [facility] [address] [place] [address] Dr. Danay Carterosinophils/100 WBC (Bld)5.1 %Normal0.9-7.0[facility] Comment on above:Performed By: #### CBC #### [facility] [address] [place] [address] Dr. Danay Carterrythrocyte distribution width (RBC) [Ratio]14.7 %Zxypta07.0-15.0 [facility] HospitalComment on above:Performed By: #### CBC #### [facility] [address] [place] [address] Dr. Danay De Los SantosHematocrit (Bld) [Volume fraction]37.8 %Fbpruy22.0-48.0[facility] Medical CenterComment on above:Performed By: #### CBC #### [facility] [address] [place] [address] Dr. Danay De Los SantosHemoglobin (Bld) [Mass/Vol]12.3 g/kLLgruec28.0-16.0The [facility] HospitalComment on above:Performed By: #### CBC #### [facility] [address] [place] [address] Dr. Danay Michelle #0.05 10e3/ulCritically high0.00-0.03[facility] Comment on above:Performed By: #### CBC #### [facility] [address] [place] [address] Dr. Danya Michelle %0.5 %Normal0.0-0.5The [facility] HospitalComment on above: Performed By: #### CBC #### [facility] [address] [place] [address] Dr. Danay Estes #2.1 103/ulNormal1.2-3.8The [facility] HospitalComment on above:Performed By: #### CBC #### [facility] [address] [place] [address] Dr. Danay Cobbmphocytes/100 WBC (Bld)19.1 %Critically low20.5-60.0The [facility] HospitalComment on above:Performed By: #### CBC #### [facility] [address] [place] [address] Dr. Danay Ward DIFF REQNONormalThe [facility] HospitalComment on above: Performed By: #### CBC #### [facility] [address] [place] [address] Dr. Danay Harmon (RBC) [Entitic mass]30.8 umWydqcx53.7-34.0The [facility] HospitalComment on above:Performed By: #### CBC #### [facility] [address] [place] [address] Dr. Danay Harmon (RBC) [Mass/Vol]32.5 g/yYNlfril81.9-35.2The [facility] HospitalComment on above:Performed By: #### CBC #### [facility] [address] [place] [address] Dr. Danay Botello (RBC) [Entitic vol]94.5 yUXclpxf62.0-99.0[facility] HospitalComment on above:Performed By: #### CBC #### [facility] [address] [place] [address] Dr. Danay Abad #0.6 103/ulNormal0.3-0.8The [facility] HospitalComment on above:Performed By: #### CBC #### [facility] [address] [place] [address] Dr. Danay Alexandreocytes/100 WBC (Bld)5.1 %Normal1.7-12.0[facility] Comment on above:Performed By: #### CBC #### [facility] [address] [place] [address] Dr. Yilan ChangNEUT #7.5 103/ulCritically high1.4-6.5[facility] Comment on above:Performed By: #### CBC #### [facility] [address] [place] [address] Dr. Danay Brandutrophils/100 WBC (Bld)69.4 %Krrybj61.0-75.0The [facility] HospitalComment on above:Performed By: #### CBC #### [facility] [address] [place] [address] Dr. Danay Stroudlet mean volume (Bld) [Entitic vol]10.9 fLNormal9.5-13.5The [facility] HospitalComment on above:Performed By: #### CBC #### [facility] [address] [place] [address] Dr. Danay De Los SantosPLT235 103/oiXjluni430-395Eiq [facility] HospitalComment on above: Performed By: #### CBC #### [facility] [address] [place] [address] Dr. Danay De Los SantosRBC4.00 106/ulCritically low4.20-5.40The [facility] HospitalComment on above:Performed By: #### CBC #### [facility] [address] [place] [address] Dr. Danay De Los SantosWBC10.8 103/ulNormal4.0-11.0The [facility] HospitalComment on above:Performed By: #### CBC #### [facility] [address] [place] [address] Dr. Danay Zepeda THYROXINE INDEX T7on 24-62-4075KSX2.48Wvlqad7.30-4.50The [facility] HospitalComment on above:Performed By: #### TSH, CMP, T7, LIPID #### [facility] [address] [place] [address] Dr. Danay De Los SantsoT3U31.0 %Qoysyl71.0-39.0The [facility] HospitalComment on above: Performed By: #### TSH, CMP, T7, LIPID #### [facility] [address] [place] [address] Dr. Danay De Los SantosT4 [Mass/Vol]5.90 ug/dLNormal4.80-13.90[facility] Comment on above:Performed By: #### TSH, CMP, T7, LIPID #### [facility] [address] [address] [address] Danay De Los SantosGLYCOHEMOGLOBIN A1Con 43-89-1226TPH RECOMMENDATIONSEE BELOWTuscarawas HospitalComment on above:Result Comment: ADA RECOMMENDED LIMIT 4.0 - 6.0 ADA THERAPEUTIC TARGET < 7.0 ACTION SUGGESTED > 7.0Performed By: #### A1C #### [facility] [address] [place] [address] Dr. Danay De Los SantosGlucose [Mass/Vol]186 mg/dLNoBarberton Citizens HospitalComment on above:Performed By: #### A1C #### [facility] [address] [place] [address] Dr. Danay De Los SantosHbA1c (Bld) [Mass fraction]8.1 %Critically high4.5-6.2The [facility] HospitalComment on above:Performed By: #### A1C #### [facility] [address] [place] [address] Dr. Danay Arroyo 40-82-3502Fbno [Mass/Vol]61.0 ug/lIRonehw91.0-170.0The [facility] HospitalComment on above:Performed By: #### TSH, CMP, T7, LIPID #### [facility] [address] [place] [address] Dr. Danay De Los SantosLIPID PROFILEon 20-23-5665MGUS-HDL RATIO NORMSEE [facility] TownshipComment on above:Result Comment: 3.3 - 4.4 LOW RISK 4.4 - 7.1 AVERAGE RISK 7.1 - 11.0 MODERATE RISK >11.0 HIGH RISKPerformed By: #### TSH, CMP, T7, LIPID #### [facility] [address] [place] [address] Dr. Danay De Los SantosCholesterol [Mass/Vol]130 mg/dLNormal<=200The [facility] Comment on above:Performed By: #### TSH, CMP, T7, LIPID #### [facility] [address] [address] [address] Danay Lopezesterol in HDL [Mass/Vol]40 mg/vDTqfqhb03-84Hqh [facility] HospitalComment on above:Performed By: #### TSH, CMP, T7, LIPID #### [facility] [address] [address] [address] Danay Lopezesterol in LDL [Mass/Vol]75.8 mg/dLNoBarberton Citizens HospitalComment on above:Performed By: #### TSH, CMP, T7, LIPID #### [facility] [address] [address] [address] Danay Nair.total/Cholesterol in HDL [Mass ratio]3.3 {ratio} NormalThe [facility] HospitalComment on above:Performed By: #### TSH, CMP, T7, LIPID #### [facility] [address] [address] [address] Danay Oviedo NORMAL> or = 60 mg/dl - LOW CARDIOVASCULAR RISK <40 mg/dl - HIGH CARDIOVASCULAR RISKNoBarberton Citizens HospitalComment on above:Performed By: #### TSH, CMP, T7, LIPID #### [facility] [address] [address] [address] Danay Alonso CALC NORMALSEE BELOWSelect Medical Specialty Hospital - TrumbullComment on above:Result Comment: <100 mg/dl OPTIMAL 100 - 129 mg/dl NEAR OR ABOVE OPTIMAL 130 - 159 mg/dl BORDERLINE HIGH 160 - 189 mg/dl HIGH >190 mg/dl VERY HIGH Performed By: #### TSH, CMP, T7, LIPID #### [facility] [address] [address] [address] Danay De Los SantosTriglyceride [Mass/Vol]71 mg/dLNormal<=150[facility] Comment on above:Performed By: #### TSH, CMP, T7, LIPID #### [facility] [address] [address] [address] Danay AppiahLDL CALC14.2 mg/dLNoBarberton Citizens HospitalComment on above: Performed By: #### TSH, CMP, T7, LIPID #### [facility] [address] [address] [address] Danay Enciso 14(COMP METB)on 37-93-7137Rbcfujw [Mass/Vol]3.4 g/dLNormal 3.4-5.0The [facility] HospitalComment on above:Performed By: #### TSH, CMP, T7, LIPID #### [facility] [address] [address] [address] Danay De Los SantosAlbumin/Globulin [Mass ratio]1.0 {ratio}NormalThe [facility] HospitalComment on above:Performed By: #### TSH, CMP, T7, LIPID #### [facility] [address] [place] [address] Dr. Danay Braga [Catalytic activity/Vol]92 U/CYhvbca60-791Nkb [facility] HospitalComment on above:Performed By: #### TSH, CMP, T7, LIPID #### [facility] [address] [place] [address] Dr. Danay Brown [Catalytic activity/Vol]15 U/PYyipbb21-72Tnw [facility] HospitalComment on above:Performed By: #### TSH, CMP, T7, LIPID #### [facility] [address] [place] [address] Dr. Danay Stearns gap [Moles/Vol]10.4 mmol/LNormalThe [facility] Comment on above:Performed By: #### TSH, CMP, T7, LIPID #### [facility] [address] [place] [address] Dr. Danay De Los SantosAST [Catalytic activity/Vol]12 U/LCritically eeq83-94Pte [facility] HospitalComment on above:Performed By: #### TSH, CMP, T7, LIPID #### [facility] [address] [place] [address] Dr. Danay De Los SantosBilirubin [Mass/Vol]0.4 mg/dLNormal0.2-1.0[facility] Comment on above:Performed By: #### TSH, CMP, T7, LIPID #### [facility] [address] [address] [address] Danay De Los SantosCalcium [Mass/Vol]8.7 mg/dLNormal8.5-10.1[facility] Comment on above:Performed By: #### TSH, CMP, T7, LIPID #### [facility] [address] [place] [address] Dr. Danay De Los SantosChloride [Moles/Vol]107 mmol/QYczhci35-643Wnn [facility] Comment on above:Performed By: #### TSH, CMP, T7, LIPID #### [facility] [address] [place] [address] Dr. Danay De Los SantosCO2 [Moles/Vol]28.9 mmol/CQzsozr13.0-32.0[facility] Comment on above:Performed By: #### TSH, CMP, T7, LIPID #### [facility] [address] [place] [address] Dr. Danay De Los SantosCreatinine [Mass/Vol]1.18 mg/dLCritically high0.55-1.02[facility] CenterComment on above:Performed By: #### TSH, CMP, T7, LIPID #### [facility] [address] [place] [address] Dr. Danay CarterGFR-AF MXOAXYTW37 mL/min/1.46c2Mkqeziytcq low>=60The [facility] HospitalComment on above:Performed By: #### TSH, CMP, T7, LIPID #### [facility] [address] [place] [address] Dr. Danay CarterGFR-NON AF UGYPKDYN46 mL/min/1.62z4Chkxjnrwpn low>=60The [facility] HospitalComment on above:Performed By: #### TSH, CMP, T7, LIPID #### [facility] [address] [place] [address] Dr. Danay De Los SanotsGlobulin (S) [Mass/Vol]3.3 g/dLNormalThe [facility] HospitalComment on above:Performed By: #### TSH, CMP, T7, LIPID #### [facility] [address] [place], [place] [address] Dr. Danay De Los SantosGlucose [Mass/Vol]153 mg/dLCritically iptw39-925Uut [facility] HospitalComment on above:Performed By: #### TSH, CMP, T7, LIPID #### [facility] [address] [place] [address] Dr. Danay De Los SantosPotassium [Moles/Vol]4.3 mmol/LNormal3.5-5.1[facility] Comment on above:Performed By: #### TSH, CMP, T7, LIPID #### [facility] [address] [place] [address] Dr. Danay DeL os SantosProtein [Mass/Vol]6.7 g/dLNormal6.4-8.2[facility] Comment on above:Performed By: #### TSH, CMP, T7, LIPID #### [facility] [address] [place] [address] Dr. Danay De Los SantosSodium [Moles/Vol]142 mmol/THxwwil488-325Xxn [facility] Comment on above:Performed By: #### TSH, CMP, T7, LIPID #### [facility] [address] [place] [address] Dr. Danay De Los SantosUrea nitrogen [Mass/Vol]16.0 mg/dLNormal7.0-18.0The [facility] HospitalComment on above:Performed By: #### TSH, CMP, T7, LIPID #### [facility] [address] [place] [address] Dr. Danay De Los SantosUrea nitrogen/Creatinine [Mass ratio]13.6 mg/mgNormalThe [facility] HospitalComment on above:Performed By: #### TSH, CMP, T7, LIPID #### [facility] [address] [place] [address] Dr. Danay Barfield 58-59-6550EWC6.443 uIU/mLNormal0.358-3.740The [facility] HospitalComment on above:Performed By: #### TSH, CMP, T7, LIPID #### [facility] [address] [place] [address] Dr. Yilan ChangXR DEXA BONE DENSITYon 82-04-2579YW DEXA BONE DENSITYEXAMINATION: XR DEXA BONE DENSITY, [...] Electronically authenticated by: BECKY AVILEZ Date: 2022-04-05 12:11[facility] TrumbullGLYCOHEMOGLOBIN A1Con 92-36-3746BUR RECOMMENDATIONSEE BELOW NormalThe [facility] HospitalComment on above:Result Comment: ADA RECOMMENDED LIMIT 4.0 - 6.0 ADA THERAPEUTIC TARGET < 7.0 ACTION SUGGESTED > 7.0Performed By: #### TSH, CMP, T7, LIPID #### [facility] [address] [address] [address] Danay De Los SantosGlucose [Mass/Vol]174 mg/dLNoBarberton Citizens HospitalComment on above:Performed By: #### TSH, CMP, T7, LIPID #### [facility] [address] [address] [address] Danay De Los SantosHbA1c (Bld) [Mass fraction]7.7 %Critically high4.5-6.2The [facility] HospitalComment on above:Performed By: #### TSH, CMP, T7, LIPID #### [facility] [address] [address] [address] Danay De Los SantosMG MAMM SCREEN 3D RIMA CADon [id number] MAMM SCREEN 3D RIMA CAD Patient: VIRGEN GONZALES Exam Date: 02/14/2022 : 1955 Gender:F Ordering : [facility] Admission #: [id number] Family : Order #: [id number] CLICK HERE TO VIEW EXAM RADIOLOGY REPORT [...] unknown cancer at age 24. LOCATION: [facility] BREAST COMPOSITION: Heterogeneously dense,which may [...] by: Becky Avilez M.D. on 02/14/2022 at 16:12[facility] CARDIAC STRESS/REST INJECTIONon 84-56-3228AZF CARDIAC STRESS/REST INJECTIONMRN: [id number] Patient Name: VIRGEN GONZALES STUDY: MYOCARDIAL PERFUSION STRESS TEST WITH LEXISCAN Performing facility: [facility], [address] [place] [address], [address], [address] Provider: Catarino Koroma MD, [facility] PCP: Dr. Nicola Granger Supervising provider: Catarino Koroma MD, [facility] INDICATION: Abnormal EKG; Pre-operative risk assessment for Knee surgery scheduled at unknown on unknown. RBBB HISTORY: Gender: F; Age: 64 y/o ; Height: 152.4 cm; Weight: 77.7272064 kg. High Cholesterol; Abnormal EKG; Diabetes; Family HX CAD; HTN; Smoking COMPARISON: No comparison. ACCESSION NUMBER(S): [id number]; [id number]; [id number] ORDERING CLINICIAN: CATARINO KOROMA TECHNIQUE: ONE DAY [...] for comparison. Electronically signed by: CATARINO KOROMA MDHorsham Clinic Vital Signs Date TimeVital SignValuePerforming VijocouceGdruveir06-34-3503 14:Body kdziib043.4 Kelsey Davis NP-C Work Phone: [facility]11-10-2025 14:26-050 Body mass index (BMI) [Ratio]38.1 kg/g0RwurmjAggie Davis ADMINISTRATIVE ASSISTANT COORDINATOR-C Work Phone: [facility]11-10-2025 14:050 Body .62 kgPamela Susan ADMINISTRATIVE ASSISTANT COORDINATOR-C Work Phone: [phone] [place], [place] 446[address]11-10-2025 14:26-0500 Diastolic blood xpsxjtit27 mm[Hg]Aggie Susan ADMINISTRATIVE ASSISTANT COORDINATOR-C Work Phone: [phone] [place], [place] 4462911-10-2025 14:26-0500 Heart rate77 /minPamela Susan ADMINISTRATIVE ASSISTANT COORDINATOR-C Work Phone: [phone] [place], [place] 4462911-10-2025 14:26-0500 Respiratory rate16 /minPamela Susan ADMINISTRATIVE ASSISTANT COORDINATOR-C Work Phone: [phone]11-10-2025 14:26-0500 SaO2% (BldA) [Mass fraction]96 %Aggie Susan ADMINISTRATIVE ASSISTANT COORDINATOR-C Work Phone: [phone]11-10-2025 14:26-0500 Systolic blood uzrszdku98 mm[Hg]Aggie Susan ADMINISTRATIVE ASSISTANT COORDINATOR-C Work Phone: [phone] [place], [place] 9884810-22-2025 13:25-0400 Body cptvyx592.4 cmPamela Susan ADMINISTRATIVE ASSISTANT COORDINATOR-C Work Phone: [phone] [place], [place] 9884810-22-2025 13:25-0400 Body mass index (BMI) [Ratio]37.5 kg/o4Eqmqmk Susan ADMINISTRATIVE ASSISTANT COORDINATOR-C Work Phone: [phone] [place], [place] 9884810-22-2025 13:25-0400 Body .1 kgPamela Susan ADMINISTRATIVE ASSISTANT COORDINATOR-C Work Phone: [phone])[facility]-[address] [place], [place] 446[address]10-22-2025 13:25-0400 Diastolic blood ljvxpqzu37 mm[Hg]Aggie Susan ADMINISTRATIVE ASSISTANT COORDINATOR-C Work Phone: [phone]10-22-2025 13:25-0400 Systolic blood vajotijp198 mm[Hg]Aggie Susan ADMINISTRATIVE ASSISTANT COORDINATOR-C Work Phone: [phone]10-20-2025 10:19-0400 Body rxoblp087.4 cmPaul Biedenbach DO Work Phone: [facility] HospitalBtlgjimwwq75-35-8047 10:19-0400Body mass index (BMI) [Ratio]37.11 kg/m2Paul Biedenbach DO Work Phone: [facility] HospitalGrcvgqakbs31-81-5691 10:19-0400Body .18 kgPaul Biedenbach DO Work Phone: [facility] HospitalYobcagjkbf42-13-5755 15:11-0400Body .4 cmPamela Susan ADMINISTRATIVE ASSISTANT COORDINATOR-C Work Phone: [phone] [place], [place] 4462909-29-2025 15:11-0400 Body mass index (BMI) [Ratio]37.5 kg/f0Euajmo Susan ADMINISTRATIVE ASSISTANT COORDINATOR-C Work Phone: [phone] [place], [place] 4462909-29-2025 15:11-0400 Body kcjkeb40.08 kgPamela Susan ADMINISTRATIVE ASSISTANT COORDINATOR-C Work Phone: [phone] [place], [place] 446[address]09-29-2025 15:11-0400 Diastolic blood heehopnu48 mm[Hg]Aggie Susan ADMINISTRATIVE ASSISTANT COORDINATOR-C Work Phone: [phone] [address] [place], [place] 4462909-29-2025 15:11-0400 Heart rate68 /minPamela Susan ADMINISTRATIVE ASSISTANT COORDINATOR-C Work Phone: 1(608)467-[address] [place], [place] 4462909-29-2025 15:11-0400 Respiratory rate18 /minPamela Susan ADMINISTRATIVE ASSISTANT COORDINATOR-C Work Phone: 1(361)514-[address] [place], [place] 4462909-29-2025 15:11-0400 SaO2% (BldA) [Mass fraction]96 %Aggie Susan ADMINISTRATIVE ASSISTANT COORDINATOR-C Work Phone: 1(804)720-[address] [place], [place] 4462909-29-2025 15:11-0400 Systolic blood mm[Hg]Aggie Susan ADMINISTRATIVE ASSISTANT COORDINATOR-C Work Phone: 1(959)681-[address] [place], [place] 4462909-29-2025 13:49-0400 Body peljcb547.4 Josh Naqvi MD Work Phone: [facility] HospitalAejdysxsfy35-41-2224 13:49-0400Body mass index (BMI) [Ratio]37.11 kg/f3VtjjjMathieu Naqvi MD Work Phone: 1(619)995[place] [address]-29-2025 13:49-0400Body kigibg07.18 kgMathieu Naqvi MD Work Phone: 1(059)[facility] [place], [place] [address]Kewusyafya80-62-7552 13:49-0400Diastolic blood refilvgl95 mm[Hg]Mathieu Naqvi MD Work Phone: 1(363)[facility] [place], [place] [address]Owdzbfoegw10-88-8369 13:49-0400Heart rate68 /min Mathieu Naqvi MD Work Phone: 1(677)[facility] [place] [address]-29-2025 13:49-0400Respiratory rate16 /minMathieu Naqvi MD Work Phone: 1(870)[facility] [place], [place] [address]Huntfawyyi93-17-3187 13:49-2665EbA9% (BldA) [Mass fraction]96 %Mathieu Naqvi MD Work Phone: 1(574)[facility] [place], [place] [address]Hfbxmjsaqk67-63-2981 13:49-0400Systolic blood njccihnj254 mm[Hg]Mathieu Naqvi MD Work Phone: 1([phone] [place], [place] [address]Hmqtguerkg62-57-3340 17:44-0400Body .4 cmPamela Susan ADMINISTRATIVE ASSISTANT COORDINATOR-C Work Phone: 1(428)144-[address] [place], [place] 4462909-10-2025 17:44-0400 Body fyjtmzmjfbv59.4 [degF]Aggie Mccormackmer ADMINISTRATIVE ASSISTANT COORDINATOR-C Work Phone: [facility]09-10-2025 17:44-0400 Body .45 kgPasp Mccormackmer ADMINISTRATIVE ASSISTANT COORDINATOR-C Work Phone: [facility]09-10-2025 17:44-0400 Diastolic blood eckuxeme15 mm[Hg]Aggienapoleon Davis ADMINISTRATIVE ASSISTANT COORDINATOR-C Work Phone: [facility]09-10-2025 17:44-0400 Heart baac500 /minCarlosa Susan ADMINISTRATIVE ASSISTANT COORDINATOR-C Work Phone: [facility]09-10-2025 17:44-0400 Respiratory rate18 /minCarlosa Susan ADMINISTRATIVE ASSISTANT COORDINATOR-C Work Phone: [phone])[address]09-10-2025 17:44-0400 SaO2% (BldA) [Mass fraction]97 %Aggie Susan ADMINISTRATIVE ASSISTANT COORDINATOR-C Work Phone: 1419)[address] [place], [place] 9884809-10-2025 17:44-0400 Systolic blood bjaskeqs496 mm[Hg]Aggie Susan ADMINISTRATIVE ASSISTANT COORDINATOR-C Work Phone: 1419)[address] [place], [place] 9884806-19-2025 12:13-0400 Body gzasbz570.4 cmPamela Susan ADMINISTRATIVE ASSISTANT COORDINATOR-C Work Phone: 1419)[address] [place], [place] 9884806-19-2025 12:13-0400 Body mass index (BMI) [Ratio]38.7 kg/q3Xvwoni Susan ADMINISTRATIVE ASSISTANT COORDINATOR-C Work Phone: 1419)[address] [place], [place] 9884806-19-2025 12:13-0400 Body twkimw66.81 kgPamela Susan ADMINISTRATIVE ASSISTANT COORDINATOR-C Work Phone: 1(745)[address] [place], [place] 9884806-19-2025 12:13-0400 Diastolic blood dknokakm93 mm[Hg]Aggie Susan ADMINISTRATIVE ASSISTANT COORDINATOR-C Work Phone: 1(535)[address] [place], [place] 9884806-19-2025 12:13-0400 Heart rate79 /minCarlosa Susan ADMINISTRATIVE ASSISTANT COORDINATOR-C Work Phone: 1(473)[address] [place], [place] 9884806-19-2025 12:13-0400 SaO2% (BldA) [Mass fraction]94 %Aggie Susan ADMINISTRATIVE ASSISTANT COORDINATOR-C Work Phone: 1(419)[address] [place], [place] 9884806-19-2025 12:13-0400 Systolic blood ecesiuac240 mm[Hg]Aggie Susan ADMINISTRATIVE ASSISTANT COORDINATOR-C Work Phone: 1(306)[address] [place], [place] 9884806-09-2025 13:41-0400 Body ishppa65.81 kgPamela Susan ADMINISTRATIVE ASSISTANT COORDINATOR-C Work Phone: 1(324)[address] [place], [place] 9884806-09-2025 13:41-0400 Diastolic blood igrmydsy03 mm[Hg]Aggie Susan ADMINISTRATIVE ASSISTANT COORDINATOR-C Work Phone: [facility]06-09-2025 13:41-0400 Heart rate84 /Castillo Mccormackmer ADMINISTRATIVE ASSISTANT COORDINATOR-C Work Phone: [facility]06-09-2025 13:41-0400 SaO2% (BldA) [Mass fraction]97 %Aggie Davis ADMINISTRATIVE ASSISTANT COORDINATOR-C Work Phone: [facility]06-09-2025 13:41-0400 Systolic blood rluzmwsg412 mm[Hg]Aggie Davis ADMINISTRATIVE ASSISTANT COORDINATOR-C Work Phone: [facility]05-13-2025 09:48-0400 Respiratory rate20 /Farhat Estrella [address] [place], [place] 0153505-13-2025 09:47-0400 Diastolic blood srvdkvul20 mm[Hg]Bricelaura Estrella [address] [place], [place] 0153505-13-2025 09:47-0400Heart rate78 /Zaklaura Pj [address] [place], [place] 0153505-13-2025 09:47-0400Mean blood inhyhcsc013 mm[Hg]Bricelaura Estrella [address]05-13-2025 09:47-0400 Systolic blood uurvohqz206 mm[Hg]Brice Pj [address] [place], [place] 0153505-13-2025 09:46-0400Heart rate80 /Farhat Estrella [address] [place], [place] 0153505-13-2025 09:46-4684NoN5% (BldA) [Mass fraction]95 %Brice Pj [address] [place], [place] 2759605-13-2025 09:46-0400 Diastolic blood ioaijjtd08 mm[Hg]Brice Pj [address]05-13-2025 09:46-0400Mean blood zmdosxon93 mm[Hg]Brice Pj [address]05-13-2025 09:46-0400 Systolic blood ehhgqcxm628 mm[Hg]Brice Estrella [facility]05-01-2025 13:23-0400Body rngtoh381.4 cmBrice Estrella DO Work Phone: [facility] HospitalTltrayyzzx72-85-1340 13:23-0400Body mass index (BMI) [Ratio]39.65 kg/f2FmouuBrice Estrella DO Work Phone: [facility] HospitalOrqcwkolao94-34-8215 13:23-0400Body ouvpdz43.08 kgBrice Estrella DO Work Phone: [facility] HospitalBncthouido29-63-7059 11:53-0400Body dndyvl976.4 Kelsey Davis ADMINISTRATIVE ASSISTANT COORDINATOR-C Work Phone: 1(637)847-[address] [place], [place] 4462904-28-2025 11:53-0400 Body azocmvhcfxr13.8 [degF]Aggie Davis ADMINISTRATIVE ASSISTANT COORDINATOR-C Work Phone: 1(471)584-[address] [place], [place] 4462904-28-2025 11:53-0400 Diastolic blood fwglugbw59 mm[Hg]Aggie Davis ADMINISTRATIVE ASSISTANT COORDINATOR-C Work Phone: 1(943)651-[address] [place], [place] 4462904-28-2025 11:53-0400 Heart rate92 /Castillo Mccormackmer ADMINISTRATIVE ASSISTANT COORDINATOR-C Work Phone: 1(199)751-[address] [place], [place] 4462904-28-2025 11:53-0400 Respiratory rate18 /Castillo Davis ADMINISTRATIVE ASSISTANT COORDINATOR-C Work Phone: 1(268)372-[address] [place], [place] 4462904-28-2025 11:53-0400 SaO2% (BldA) [Mass fraction]96 %Aggie Davis ADMINISTRATIVE ASSISTANT COORDINATOR-C Work Phone: 1(415)236-[address] [place], [place] 4462904-28-2025 11:53-0400 Systolic blood daiuhbgr679 mm[Hg]Aggie Davis ADMINISTRATIVE ASSISTANT COORDINATOR-C Work Phone: 1(904)593-[address] [place], [place] 4462904-21-2025 12:12-0400 Body iihxaf150.4 Josh Naqvi MD Work Phone: [facility] HospitalWmdtiblber65-42-0251 12:12-0400Body mass index (BMI) [Ratio]39.65 kg/t0CncipMathieu Naqvi MD Work Phone: [facility] HospitalAdvwlostta10-55-0759 12:12-0400Body sbjgyn33.08 kgMathieu Naqvi MD Work Phone: [facility] HospitalYxdgxransi27-87-9089 12:12-0400Diastolic blood gcidzjou62 mm[Hg]Mathieu Naqvi MD Work Phone: [place] [address]Ulufeuiwlo06-18-0598 12:12-0400Heart rate79 /min Mathieu Naqvi MD Work Phone: [place] [address]Neouqjvskh85-64-8905 12:12-0400Respiratory rate18 /minMathieu Naqvi MD Work Phone: [facility] HospitalQuvtmvihrp46-58-7667 12:12-9402UeS4% (BldA) [Mass fraction]94 %Mathieu Naqvi MD Work Phone: [place] [address]Urbranxkhj25-65-4014 12:12-0400Systolic blood omycnzat494 mm[Hg]Mathieu Naqvi MD Work Phone: [place] [address]Jmbotznpws17-61-0625 10:02-0400Body hexfhl189.4 cmPaul Alison DO Work Phone: [facility] HospitalTslwyubhqw09-38-5161 10:02-0400Body mass index (BMI) [Ratio]40.04 kg/m2Paul Biedenbach DO Work Phone: [place] [address]Ufkglbdxvz00-99-9202 10:02-0400Body vxdtde05.99 kgPaul Alison DO Work Phone: [place] [address]Afaxvzpivr92-93-9647 10:41-0400Body .4 cmBrice Estrella DO Work Phone: noMiss[facility] CenterJpxgjiusvw03-52-4396 10:41-0400Body mass index (BMI) [Ratio]40.43 kg/h9FypipBrice Estrella DO Work Phone: [facility] HospitalRlmmgbcsmx92-08-5779 10:41-0400Body .89 kgBrice Estrella DO Work Phone: [facility] HospitalThrhiugdez20-08-9554 08:22-0500Body yudole933.4 cmPrenetta Susan ADMINISTRATIVE ASSISTANT COORDINATOR-C Work Phone: [facility]02-24-2025 08:22-0500 Body mass index (BMI) [Ratio]40.8 kg/w0Dxdcod Susan ADMINISTRATIVE ASSISTANT COORDINATOR-C Work Phone: [facility]02-24-2025 08:22-0500 Body vxgwdu55.8 kgPakirbya Susan ADMINISTRATIVE ASSISTANT COORDINATOR-C Work Phone: 1(179)077-[address] [place], [place] 4462902-24-2025 08:14-0500 Body iyfilakodvj92.5 [degF]Aggie Mccormackmer ADMINISTRATIVE ASSISTANT COORDINATOR-C Work Phone: [facility]02-24-2025 08:14-0500 Diastolic blood fvyzbxyn38 mm[Hg]Aggie Susan ADMINISTRATIVE ASSISTANT COORDINATOR-C Work Phone: 1(529)249-[address] [place], [place] 4462902-24-2025 08:14-0500 Heart rate86 /minPamela Susan ADMINISTRATIVE ASSISTANT COORDINATOR-C Work Phone: 1(168)862-[address] [place], [place] 4462902-24-2025 08:14-0500 Respiratory rate20 /minPakirbya Susan ADMINISTRATIVE ASSISTANT COORDINATOR-C Work Phone: [facility]02-24-2025 08:14-0500 Systolic blood sixrpjbs025 mm[Hg]Aggie Mccormackmer ADMINISTRATIVE ASSISTANT COORDINATOR-C Work Phone: 1(904)955-[address] [place], [place] 4462902-10-2025 09:09-0500 Blood Pressure LocationPadarshan [facility]OSS [facility]02-10-2025 09:09-0500Diastolic blood ldnpujvs68 mm[Hg]Kang [facility]OSS [facility]02-10-2025 09:09-0500Heart rate70 /minKang BOSS [facility]02-10-2025 09:09-0500Respiratory rate18 /Lynn [facility]OSS [facility]02-10-2025 09:09-0500Systolic blood elixsovq176 mm[Hg]Kang BOSS [facility]02-03-2025 13:49-0500Body .4 Nicoamela Susan ADMINISTRATIVE ASSISTANT COORDINATOR-C Work Phone: 1(962)468-[address] [place], [place] 4462902-03-2025 13:49-0500 Body mass index (BMI) [Ratio]39.9 kg/w7Pcpuqj Susan ADMINISTRATIVE ASSISTANT COORDINATOR-C Work Phone: 1(539)410-[address] [place], [place] 4462902-03-2025 13:49-0500 Body vgognvgbuta78.8 [degF]Aggie Mccormackmer ADMINISTRATIVE ASSISTANT COORDINATOR-C Work Phone: 1(878)493-[address] [place], [place] 4462902-03-2025 13:49-0500 Body uxwjxr91.75 kgAggie Mccormackmer ADMINISTRATIVE ASSISTANT COORDINATOR-C Work Phone: 1(588)056-[address] [place], [place] 4462902-03-2025 13:49-0500 Diastolic blood mm[Hg]Aggie Mccormackmer ADMINISTRATIVE ASSISTANT COORDINATOR-C Work Phone: 1(408)377-[address] [place], [place] 4462902-03-2025 13:49-0500 Heart rate68 /minCarlosa Susan ADMINISTRATIVE ASSISTANT COORDINATOR-C Work Phone: 1(830)452-[address] [place], [place] 4462902-03-2025 13:49-0500 Respiratory rate18 /minCarlosa Susan ADMINISTRATIVE ASSISTANT COORDINATOR-C Work Phone: 1(192)947-[address] [place], [place] 4462902-03-2025 13:49-0500 SaO2% (BldA) [Mass fraction]98 %Aggie Davis ADMINISTRATIVE ASSISTANT COORDINATOR-C Work Phone: 1(087)395-[address] [place], [place] 4462902-03-2025 13:49-0500 Systolic blood ysnxdgua142 mm[Hg]Aggie Davis ADMINISTRATIVE ASSISTANT COORDINATOR-C Work Phone: [facility]02-03-2025 10:24-0500 Body numjer105.4 cmBrice Estrella DO Work Phone: [facility] HospitalGftdrgjuee38-60-0544 10:24-0500Body mass index (BMI) [Ratio]40.43 kg/m4GyzwlBrice Estrella DO Work Phone: [facility] HospitalHjrlhkepvp06-38-9658 10:24-0500Body qoofql71.89 kgBrice Estrella DO Work Phone: [facility] HospitalQzucyvjrsb26-48-8226 09:05-0500Body mass index (BMI) [Ratio]40.43 kg/h5Lwimoumhnqeeryn De La Rosa DO Work Phone: [facility] HospitalStwzhkuuxm49-48-5336 09:05-0500Body riluuc68.89 kgChrisskylar De La Rosa DO Work Phone: [facility] HospitalWyhzopzqlw12-21-4516 09:05-0500Diastolic blood cjbldrvo60 mm[Hg]Olman De La Rosa DO Work Phone: [facility] HospitalIyrchfsdkw93-53-6081 09:05-0500Heart rate80 /min Olman De La Rosa DO Work Phone: [facility] HospitalEvekkvfesa13-37-4546 09:05-6727ZuM7% (BldA) [Mass fraction]95 %Olman De La Rosa DO Work Phone: [facility] HospitalEemmoqfbsg45-51-4429 09:05-0500Systolic blood lxbbmzay911 mm[Hg]Louisjessica De La Rosa DO Work Phone: [facility] HospitalButetyvwnl86-75-4690 10:18-0500Body esytlk386.4 Kelsey Davis ADMINISTRATIVE ASSISTANT COORDINATOR-C Work Phone: [facility]01-22-2025 10:18-0500 Body mass index (BMI) [Ratio]40.8 kg/c0LxwyedAggie Davis ADMINISTRATIVE ASSISTANT COORDINATOR-C Work Phone: [facility]01-22-2025 10:18-0500 Body .8 kgPamela Susan ADMINISTRATIVE ASSISTANT COORDINATOR-C Work Phone: 1(949)110-[address] [place], [place] 4462901-22-2025 09:13-0500 Body rcuawqzenez92.2 [degF]Aggie Susan ADMINISTRATIVE ASSISTANT COORDINATOR-C Work Phone: 1(200)047-[address] [place], [place] 4462901-22-2025 09:13-0500 Diastolic blood kyjbcgqy43 mm[Hg]Aggie Susan ADMINISTRATIVE ASSISTANT COORDINATOR-C Work Phone: 1(455)441-[address] [place], [place] 4462901-22-2025 09:13-0500 Heart rate87 /minPamela Susan ADMINISTRATIVE ASSISTANT COORDINATOR-C Work Phone: 1(714)061-[address] [place], [place] 4462901-22-2025 09:13-0500 Respiratory rate20 /minPamela Susan ADMINISTRATIVE ASSISTANT COORDINATOR-C Work Phone: 1(339)450-[address] [place], [place] 4462901-22-2025 09:13-0500 Systolic blood wmrkgyrh303 mm[Hg]Aggie Susan ADMINISTRATIVE ASSISTANT COORDINATOR-C Work Phone: 1(077)898-[address] [place], [place] 4462901-21-2025 10:31-0500 Body .4 Josh Naqvi MD Work Phone: 1(335)[address]01-21-2025 10:31-0500Body mass index (BMI) [Ratio]40.82 kg/u7NaajmMathieu Naqvi MD Work Phone: 1(320)298-[address] [place], [place] [address]Cowzjwflur28-88-2159 10:31-0500Body nfibjw97.8 kg Mathieu Naqvi MD Work Phone: 1(192)950-[address] [place], [place] [address]Vpnhikcrhk38-46-9857 21:52-0500Body temperature 97.88 [degF]Tiny Dokken [facility]12-10-2024 21:52-0500 Diastolic blood spiwkati56 mm[Hg]Kaylinn Dokken [facility]12-10-2024 21:52-0500Heart rate72 /minJamalylinn Dokken [facility]12-10-2024 21:52-0500Mean blood mm[Hg]Kaylinn Dokken [address] [place], [place] 9390712-10-2024 21:52-0500 Respiratory rate19 /minKaylinn Dokken [address] [place], [place] 9390712-10-2024 21:52-6589AdO5% (BldA) [Mass fraction]95 %Kaylinn Dokken [address] [place], [place] 9390712-10-2024 21:52-0500 Systolic blood kkynjdnq055 mm[Hg]Kaylinn Dokken [address] [place], [place] 9390712-10-2024 20:57-0500 Diastolic blood wsocrqni19 mm[Hg]Kaylinn Dokken [address] [place], [place] 9390712-10-2024 20:57-0500Heart rate61 /minKaylinn Dokken [address] [place], [place] 9390712-10-2024 20:57-0500Mean blood rktcuaib938 mm[Hg]Kaylinn Dokken [address] [place], [place] 9390712-10-2024 20:57-0500 Respiratory rate18 /minKaylinn Dokken [address] [place], [place] 9390712-10-2024 20:57-0344KfA3% (BldA) [Mass fraction]96 %Kaylinn Dokken [address] [place], [place] 9390712-10-2024 20:57-0500 Systolic blood ouagmbpt875 mm[Hg]Kaylinn Dokken [address] [place], [place] 9390712-10-2024 19:33-0500 Diastolic blood svgaxfmv09 mm[Hg]Kaylinn Dokken [address] [place], [place] 9390712-10-2024 19:33-0500Heart rate60 /minKaylinn Dokken [address] [place], [place] 9390712-10-2024 19:33-0500Mean blood mm[Hg]Kaylinn Dokken [address] [place], [place] 9390712-10-2024 19:33-0500 Respiratory rate19 /minKaylinn Dokken [address] [place], [place] 9390712-10-2024 19:33-8602ZzX2% (BldA) [Mass fraction]95 %Kaylinn Dokken [address] [place], [place] 9390712-10-2024 19:33-0500 Systolic blood mhdjtjvu922 mm[Hg]Kaylinn Dokken [address] [place], [place] 9390712-10-2024 19:20-0500Body huxsnfoosjn08.06 [degF]Kaylinn Dokken [address] [place], [place] 9390712-10-2024 18:33-0500Body cpuojtboidc82.24 [degF]Kaylinn Dokken [address] [place], [place] 9390712-10-2024 18:33-0500Heart rate73 /minKaylinn Dokken [address] [place], [place] 9390712-10-2024 18:33-0500 Respiratory rate18 /minKaylinn Dokken [address] [place], [place] 9390712-10-2024 18:19-0500gluc 142 mg/dLKaylinn Dokken [address] [place], [place] 9390712-10-2024 18:18-0500Heart rate73 /minKaylinn Dokken [address] [place], [place] 9390712-10-2024 18:18-0500 Respiratory rate18 /minKaylinn Dokken [facility]10-21-2024 10:53-0400Body ugambe762.4 cmPaul Biedenbach DO Work Phone: 1(819)529-[address] [place], [place] [address]Anofkkajgc48-44-6278 10:53-0400Body mass index (BMI) [Ratio]38.08 kg/m2Paul Biedenbach DO Work Phone: 1(515)045-[address] [place], [place] [address]Znrlrjflkp20-14-0950 10:53-0400Body sldizg01.45 kgPaul Biedenbach DO Work Phone: 1(800)[address] [place], [place] 3269309-16-2024 11:09-0400Body .4 cmPaul Biedenbach DO Work Phone: 1(863)[address] [place], [place] 3269309-16-2024 11:09-0400Body mass index (BMI) [Ratio]38.08 kg/m2Paul Biedenbach DO Work Phone: 1(343)[address] [place], [place] 3269309-16-2024 11:09-0400Body ippkki12.45 kgPaul Biedenbach DO Work Phone: 1(146)[address] [place], [place] 3269309-13-2024 09:25-0400Body .9 cmPaul Biedenbach DO Work Phone: 1(091)[address] [place], [place] 3269309-13-2024 09:25-0400Body mass index (BMI) [Ratio]39.39 kg/m2Paul Biedenbach DO Work Phone: 1(009)[address] [place], [place] 3269309-13-2024 09:25-0400Body guzmys95.45 kgPaul Biedenbach DO Work Phone: 1(976)[address] [place], [place] 3269308-29-2024 11:11-0400Body efjdfy216.4 cmPaul Biedenbach DO Work Phone: 1(994)[address] [place], [place] 3269308-29-2024 11:11-0400Body mass index (BMI) [Ratio]38.08 kg/m2Paul Biedenbach DO Work Phone: 1(887)[facility] [place], [place] [address]Cmoivvcsxb02-02-8211 11:11-0400Body tfwsee24.45 kgPaul Alison DO Work Phone: [facility] HospitalNjgqtwojtm42-13-8916 15:38-0500Body oszfha455.9 cmBrice Estrella DO Work Phone: [facility] HospitalWdxbyojnbe44-42-6314 15:38-0500Body mass index (BMI) [Ratio]39.59 kg/b0ZqedzBrice Estrella DO Work Phone: 1(703)[address] [place], [place] 4312701-30-2024 15:38-0500Body temperature 97.39 [degF]Brice Estrella DO Work Phone: 1(206)[address] [place], [place] 4312701-30-2024 15:38-0500Body jagzbv30.91 kgBrice Estrella DO Work Phone: [facility] HospitalNgorrjqcic33-89-7719 08:27-0500Heart rate77 /min Brice Pj [address] [place], [place] 2759611-10-2023 08:27-3304HvC1% (BldA) [Mass fraction]98 %Brice Estrella [address] [place], [place] 2759611-10-2023 08:26-0500 Respiratory rate20 /minBrice Estrella [address] [place], [place] 2759611-10-2023 08:26-0500Blood Pressure LocationBrice Estrella [address] [place], [place] 2759611-10-2023 08:26-0500 Diastolic blood hwhxwibm06 mm[Hg]Brice Estrella [address] [place], [place] 2759611-10-2023 08:26-0500Mean blood lgevooaq92 mm[Hg]Brice Pj [address] [place], [place] 2759611-10-2023 08:26-0500 Systolic blood mm[Hg]Brice Pj [address] [place], [place] 2759611-10-2023 08:25-0500Body uzfxduekrdo21.88 [degF]Brice Pj [address]11-10-2023 08:05-0500Blood Pressure LocationBrice Estrella [address] [place], [place] 2759611-10-2023 08:05-0500 Diastolic blood nuroerpx83 mm[Hg]Brice Estrella [address] [place], [place] 0153511-10-2023 08:05-0500Heart rate73 /Farhat Estrella [address] [place], [place] 2759611-10-2023 08:05-0500 Respiratory rate20 /Farhat Estrella [address] [place], [place] 0153511-10-2023 08:05-5594OzT5% (BldA) [Mass fraction]95 %Brice Estrella [address] [place], [place] 0153511-10-2023 08:05-0500 Systolic blood vswmmogy035 mm[Hg]Brice Estrella [address] [place], [place] 0153511-10-2023 07:30-0500Blood Pressure LocationBrice Estrella [address] [place], [place] 0153511-10-2023 07:30-0500 Diastolic blood xhurgrfw17 mm[Hg]Brice Estrella [address] [place], [place] 0153511-10-2023 07:30-0500Heart rate70 /Farhat Estrella [address] [place], [place] 0153511-10-2023 07:30-0500 Respiratory rate20 /Farhat Estrella [address] [place], [place] 2759611-10-2023 07:30-1851WcI4% (BldA) [Mass fraction]96 %Brice Estrella [address] [place], [place] 0153511-10-2023 07:30-0500 Systolic blood flflrmet605 mm[Hg]Brice Estrella [address] [place], [place] 0153511-10-2023 06:52-0500Mean blood unkeupaa35 mm[Hg]rBice Estrella [facility]11-10-2023 06:49-0500Body euymrqwehex04.88 [degF]Brice Estrella [facility]11-10-2023 06:49-0500Mean blood bwbfveik71 mm[Hg]Brice Estrella [facility] Encounters Encounter DateEncounter TypeCare ProviderFacilityStart: 43-92-5822rtcokzjjbz Kang BOSSFacility:[facility] BellevueStart: 06-07-2025 End: 29-95-9227rnjqunagvgVdesgn Sue Cramer ADMINISTRATIVE ASSISTANT COORDINATOR-C Work Phone: 4(735)778-7987000-7729-Aokrmdefl Health Neph SandStart: 06-07-2025 End: 92-57-4870Vsehata encounter procedureDinah Sepulveda MDUnc Health [facility] Work Phone: Start: 05-31-2025 End: 39-33-2536pgrqhsxjzfZexkvvq R WATERSFacility:[place]vueStart: 05-31-2025 End: 59-30-9478Forawun encounter procedureKang BOSS [facility] start: 05-26-2025 End: 94-75-6390qduejmhgpbRvcaqn SpringerFacility:FTMCStart: 05-26-2025 End: 67-28-4698pscodbfoigLEUQKV S CRAMERFacility:FTMCStart: 05-19-2025 End: 58-63-5469ghuznvthzkQdifvu Sue Cramer ADMINISTRATIVE ASSISTANT COORDINATOR-C Work Phone: [phone]-Rfvghjzoz Health NeurosurgeryStart: 05-19-2025 End: 09-29-9458Iqjahds encounter procedureJori Cason DO-[facility] Work Phone: start: 05-17-2025 End: 21-49-0909Heeuck Tex Phillip DO Work Phone: [facility] OtolaryngologyStart: 05-17-2025 End: 55-78-8859Ovuedy flowsKenny Phillip DO Work Phone: [facility] OtolaryngologyStart: 05-17-2025 End: 16-01-2381ilfaponmjwAPNM S BIEDENBACHNot AvailableStart: 05-17-2025 End: 59-63-9069Pqbfhx outpatient visit 25 minutesPadevante Phillip DO Work Phone: [facility] OtolaryngologyComment on above:Nontoxic multinodular goiter (Primary Dx); Thyroid nodule; Hearing loss, unspecified hearing loss type, unspecified laterality; Tobacco abuseStart: 05-10-2025 End: 73-55-4386atzyiidjeyFwuiyzen A. JonesFacility:FTMCStart: 04-26-2025 End: 97-47-5292sgqvubhugcWvnaly Sue Cramer ADMINISTRATIVE ASSISTANT COORDINATOR-C Work Phone: [facility] Work Phone: Start: 04-26-2025 End: 29-17-4529Glsbfnc encounter Alie Gregg OOTC-ZCP-N-[facility] Neurology Work Phone: Start: 04-26-2025 End: 52-77-8343Ycwpty Yue Naqvi MD Work Phone: [facility] EndocrinologyStart: 04-26-2025 End: 02-70-2335Tzqinq Yue Naqvi MD Work Phone: noMS [facility] EndocrinologyStart: 04-26-2025 End: 46-72-4557gvpgempcwqKLIMN F SABBAGHNot AvailableStart: 04-26-2025 End: 07-51-0162Oelbhk outpatient visit 25 minutesMathieu Naqvi MD Work Phone: noMS [facility] EndocrinologyComment on above:Type 2 diabetes mellitus with hyperglycemia, with long-term current use of insulin (HCC) (Primary Dx); Encounter for dietary consultation; Vitamin D deficiency; Primary hypertension ; Hyperlipemia, mixedStart: 04-15-2025 End: 89-60-8450xgkrccezsaNY-C Ashley OspinaFacility:FTMCStart: 04-07-2025 End: 43-64-3046Asiqovozf department patient visitAggie Davis ADMINISTRATIVE ASSISTANT COORDINATOR-C Work Phone: [phone]-Vrdattsmb Room Work Phone: Start: 03-22-2025 End: 43-21-6451xatqxkgfcdAX-C Amanda SpringerFacility:FTMCStart: 03-08-2025 End: 23-17-2186lgpzaomxqbLunrwvf R WATERSFacility:EU BellueStart: 03-08-2025 End: 22-46-9433Qnlyfen encounter procedureKang BOSS [facility] start: 01-28-2025 End: 04-98-5056winpxethllKLOXGuernsey Memorial Hospitaltart: 01-14-2025 End: 54-11-3222Mbflzsw encounter procedurePayton Goodwin [facility] Work Phone: Start: 01-04-2025 End: 91-01-3555lyozkqearpPhrkry Sue Cramer ADMINISTRATIVE ASSISTANT COORDINATOR-C Work Phone: [facility] Work Phone: Start: 01-04-2025 End: 40-57-3149Rahsxva encounter procedureAggie Davis ADMINISTRATIVE ASSISTANT COORDINATOR-C Work Phone: [facility] Work Phone: Start: 12-25-2024 End: 16-51-3901Uwwpvoxhq Result EncounterBrice Estrella DO Work Phone: noms External Department UnsolicitedStart: 12-25-2024 End: 98-85-1124Bbhpmocge Result EncounterBrice Estrella DO Work Phone: NOGG External Department UnsolicitedStart: 12-25-2024 End: 37-81-7695Clinfvutu to same day surgery Benito [facility] Start: 12-25-2024 End: 66-14-0684izfqvwtcztMebti Niurka PjFacility:FTMCStart: 12-22-2024 End: 99-72-9498nplsncrfzdMlufhd Sue Cramer ADMINISTRATIVE ASSISTANT COORDINATOR-C Work Phone: [facility] Work Phone: Start: 12-22-2024 End: 63-74-0597Qtgwkkqs ReferredAggie Davis ADMINISTRATIVE ASSISTANT COORDINATOR-C Work Phone: [facility]-LAB Path Spec [place] HospStart: 12-08-2024 End: 26-22-2989waaoreacvnXrvym Niurka PjFacility:FTMCStart: 12-08-2024 End: 95-07-5001Lfxrgqq encounter procedureBrice Bah Pj [facility] Start: 11-26-2024 End: 14-38-9677Bcdihg flowsThaolaura Niurka Estrella DO Work Phone: [facility] ORTHOStart: 11-26-2024 End: 13-71-3599Rpcuze flowsThaolaura Niurka Estrella DO Work Phone: [facility] ORTHOStart: 11-26-2024 End: 82-84-2323lsycqvyvnfKBKHP A BROWNNot AvailableStart: 11-26-2024 End: 25-58-9773Dsifvmw encounter procedureBrice Estrella DO Work Phone: [facility] NB ORTHOComment on above:Triceps tendonitis (Primary Dx)Start: 11-23-2024 End: 86-41-8059akumirvecsKcdexh Sue Susan ADMINISTRATIVE ASSISTANT COORDINATOR-C Work Phone: [facility] Work Phone: Start: 11-23-2024 End: 67-56-5413Roxzeqw encounter Vinita Davis ADMINISTRATIVE ASSISTANT COORDINATOR-C Work Phone: [facility] Work Phone: Start: 11-16-2024 End: 07-70-6025Negqqc Yue Naqvi MD Work Phone: noms ENDOCRINOLOGYStart: 11-16-2024 End: 70-64-8275Iugjqgvinnie Naqvi MD Work Phone: noms ENDOCRINOLOGYStart: 11-16-2024 End: 13-45-5197fxylsvgpiqNRCKV F SABBAGHNot AvailableStart: 11-16-2024 End: 26-29-4284Myjmat outpatient visit 25 minutesMathieu Naqvi MD Work Phone: noms ENDOCRINOLOGYComment on above:Type 2 diabetes mellitus with hyperglycemia, with long-term current use of insulin (CMS/HCC) (Primary Dx); Encounter for dietary consultation; Vitamin D deficiency; Primary hypertension (CMS/HCC); Hyperlipemia, mixed (CMS/HCC); Class 2 severe obesity due to excess calories with serious comorbidity and body mass index (BMI) of39.0 to 39.9 in adult (CMS/HCC)Start: 11-14-2024 End: 34-14-5649govskogxckFbllwv Sue Cramer ADMINISTRATIVE ASSISTANT COORDINATOR-C Work Phone: [facility] Work Phone: Start: 11-14-2024 End: 36-63-2840Uqwmxxpa ReferredAggie Davis ADMINISTRATIVE ASSISTANT COORDINATOR-C Work Phone: [facility]-LAB Path Spec [place] HospStart: 11-09-2024 End: 90-71-3916Bvajcg Tex Phillip DO Work Phone: noms ENT SANDUSKYStart: 11-09-2024 End: 37-75-8207Qsjmfj flowsheetPadevante S Biedenmaicol DO Work Phone: NOAD ENT SANDUSKYStart: 11-09-2024 End: 89-73-6880fthmqykpirAJCXL A BROWNNot AvailableStart: 11-09-2024 End: 28-68-2030Udtzzx outpatient visit 25 minutesPaul S Biedenbach DO Work Phone: NOML ENT SANDUSKYComment on above:Nontoxic multinodular goiter (CMS/HCC) (Primary Dx); Thyroid nodule (CMS/HCC)Start: 11-05-2024 End: 87-72-7101Uckthy Kolton Estrella DO Work Phone: [facility] ORTHOStart: 11-05-2024 End: 25-19-9470Iotjyt Kolton Estrella DO Work Phone: [facility] ORTHOStart: 11-05-2024 End: 68-30-9988ehtqzlthhzBHBAE A BROWNNot AvailableStart: 11-05-2024 End: 17-22-4017Frurwhj encounter procedureBrice Estrella DO Work Phone: [facility] NB ORTHOComment on above:Triceps tendonitis (Primary Dx); Lateral epicondylitis of right elbowStart: 10-30-2024 End: 21-91-8957akaawmgcxnHlkexw Sue Cramer ADMINISTRATIVE ASSISTANT COORDINATOR-C Work Phone: [facility] Work Phone: Start: 10-30-2024 End: 57-92-6339Nbkfwlri ReferredAggie Davis ADMINISTRATIVE ASSISTANT COORDINATOR-C Work Phone: [facility]-LAB Path Spec [place] HospStart: 10-13-2024 End: 69-26-1379Oddcxbw encounter procedureAggie Davis ADMINISTRATIVE ASSISTANT COORDINATOR-C Work Phone: [facility]-Lab Main [place] Work Phone: Start: 10-13-2024 End: 55-08-6269pcxsqlksglIblodg Isabel Susan ADMINISTRATIVE ASSISTANT COORDINATOR-C Work Phone: [facility] Work Phone: Start: 09-21-2024 End: 91-28-3057nwfswuoswpTrctet Isabel Susan ADMINISTRATIVE ASSISTANT COORDINATOR-C Work Phone: [facility] Work Phone: Start: 09-21-2024 End: 35-57-5000Zjvwqgaoha RecurringPasp Mccormackmer ADMINISTRATIVE ASSISTANT COORDINATOR-C Work Phone: [facility]-Wound Care [place] Work Phone: Start: 09-14-2024 End: 20-34-0835aoeaenvmtiAywneu Isabel Mccormackmer ADMINISTRATIVE ASSISTANT COORDINATOR-C Work Phone: [facility] Work Phone: Start: 09-14-2024 End: 00-11-3629Mybrpkd encounter procedureAggie Davis ADMINISTRATIVE ASSISTANT COORDINATOR-C Work Phone: [facility]-[address] Work Phone: Start: 09-07-2024 End: 33-80-2574fktygwobfgLujpoev R WATERSFacility:EU BellevueStart: 09-07-2024 End: 11-18-4127Gvqpykv encounter procedureKang BOSS [facility] [place] start: 09-03-2024 End: 29-29-6867Pljkox flowsheetChristopher Estrella DO Work Phone: ana BELLEVUEStart: 09-03-2024 End: 87-76-2744Txpnxq flowsheetChristopher Estrella DO Work Phone: aNA BELLEVUEStart: 09-03-2024 End: 86-56-4041Hzaglwv encounter procedureChristopher Estrella DO Work Phone: aNA BELLEVUEComment on above:Bilateral hand numbness Start: 09-03-2024 End: 63-33-1908xfjgnzhwlzFZSXIDDABVT HASSETTNot AvailableStart: 08-31-2024 End: 77-40-2702Favpsp flowsheetBrice Estrella DO Work Phone: [facility] SWS ORTHOAOStart: 08-31-2024 End: 42-97-2837Vkqrmi flowsheetBrice Estrella DO Work Phone: [facility] SWS ORTHOAOStart: 08-31-2024 End: 39-90-9578agdxfzvxfaFadijs Sue Cramer ADMINISTRATIVE ASSISTANT COORDINATOR-C Work Phone: [facility] Work Phone: Start: 08-31-2024 End: 25-41-6907Bxmaxdl encounter procedureAggie Davis ADMINISTRATIVE ASSISTANT COORDINATOR-C Work Phone: [facility] Work Phone: Start: 08-31-2024 End: 90-63-0693Uzonvcz encounter procedureBrice Estrella DO Work Phone: [facility] SWS ORTHOAOComment on above:Lateral epicondylitis of right elbow (Primary Dx); Right elbow pain; Triceps tendonitisStart: 08-31-2024 End: 83-01-4551ogojusqneeLCQDU A BROWNNot AvailableStart: 08-24-2024 End: 53-02-0810ducvqxgaowOJZBGJDBTLY HASSETTNot AvailableStart: 08-20-2024 End: 28-71-5830locejhlgbzYTCJ [facility] Hospitaltart: 08-20-2024 End: 75-17-6509Nnamum flowsheetChristopher Estrella DO Work Phone: aNA SANDUSKYStart: 08-20-2024 End: 72-58-1204Mpviqz flowsheetChristopher Estrella DO Work Phone: aNA SANDUSKYStart: 08-20-2024 End: 95-48-5070abkxnrhykgCZJFSCNICOL HASSETTNot AvailableStart: 08-20-2024 End: 54-28-9095Rbewto outpatient new 45 minutesChristopher Estrella DO Work Phone: ana SANDUSKYComment on above:Loss of consciousness (CMS/HCC) (Primary Dx); Bilateral hand numbnessStart: 47-81-9545Wcfyfdpjcw RecurringAggie Davis ADMINISTRATIVE ASSISTANT COORDINATOR-C Work Phone: [facility] [place] Work Phone: Start: 08-18-2024 End: 00-87-2329Togakl Yue Naqvi MD Work Phone: noms ENDOCRINOLOGYStart: 08-18-2024 End: 45-29-1040Rgcljkkilo Naqvi MD Work Phone: noms ENDOCRINOLOGYStart: 08-18-2024 End: 00-80-9046Eiwscs outpatient new 45 minutesMathieu Naqvi MD Work Phone: noms ENDOCRINOLOGYComment on above:Type 2 diabetes mellitus with hyperglycemia, with long-term current use of insulin (CMS/HCC) (Primary Dx); Encounter for dietary consultation; Vitamin D deficiency; Primary hypertension (CMS/HCC); Hyperlipemia, mixed (CMS/HCC); Class 3 severe obesity due to excess calories with serious comorbidity and body mass index (BMI) of40.0 to 44.9 in adult (CMS/HCC)Start: 08-18-2024 End: 75-50-3393kfbtrrwyzvDKGDM F SABBAGHNot AvailableStart: 97-74-6709igcjgkkjng Kang WATERSFacility:EU BellevueStart: 97-57-4551ecwfvlzokjEirrhjnu:EU SanduskyStart: 97-70-6870Rii-patient / Non-visitAggie Davis ADMINISTRATIVE ASSISTANT COORDINATOR-C Work Phone: [facility] Out[facility] Work Phone: Start: 07-07-2024 End: 98-55-3725Niclhfrmu department patient visitTiny [facility] Start: 05-18-2024 End: 00-61-2115kfvibjyvlyYXNK S BIEDENBACHNot AvailableStart: 05-18-2024 End: 57-72-4189Qguisz outpatient visit 15 minutesPaul S Biedenbach DO Work Phone: noms ENT SANDUSKYComment on above:Nontoxic multinodular goiter (CMS/HCC) (Primary Dx); Thyroid nodule (CMS/HCC); Hearing loss, unspecified hearing loss type, unspecified lateralityStart: 05-04-2024 End: 81-68-1779Imyimj flowsheetPaul S Biedenbach DO Work Phone: noms ENT SANDUSKYStart: 05-04-2024 End: 95-72-7585Tkhuqp flowsheetPaul S Biedenbach DO Work Phone: noms ENT SANDUSKYStart: 04-13-2024 End: 21-07-6190Bkfexd flowsheetPaul S Biedenbach DO Work Phone: noms ENT SANDUSKYStart: 04-13-2024 End: 08-57-5639Gohqnl flowsheetPaul S Biedenbach DO Work Phone: noms ENT SANDUSKYStart: 04-13-2024 End: 02-61-1060rvqppacrjjYC-C Aggie Davis Work Phone: [facility] Work Phone: Start: 04-13-2024 End: 90-39-1676Uwvwhryq ReferredNP-C Aggie Davis Work Phone: [facility]-Lab [place] Work Phone: Start: 04-13-2024 End: 97-91-8654Erugeu outpatient visit 25 minutesPaul S Biedenbach DO Work Phone: noms ENT SANDUSKYComment on above:Nontoxic multinodular goiter (CMS/HCC) (Primary Dx); Thyroid nodule (CMS/HCC)Start: 04-10-2024 End: 57-34-3059Aqdgdo flowsheetPaul S Biedenbach DO Work Phone: noms ENT SANDUSKYStart: 04-10-2024 End: 07-70-3889Upqcwd flowsheetPaul S Biedenbach DO Work Phone: noms ENT SANDUSKYStart: 04-10-2024 End: 50-44-9925Geflch outpatient visit 25 minutesPaul S Biedenbach DO Work Phone: noms ENT SANDUSKYComment on above:Thyroid nodule (CMS/HCC) (Primary Dx); Nontoxic multinodular goiter (CMS/HCC)Start: 03-26-2024 End: 41-53-4903Regycy flowsheetPaul S Biedenbach DO Work Phone: noms ENT SANDUSKYStart: 03-26-2024 End: 15-39-9924Hkvfjo flowsheetPaul S Biedenbach DO Work Phone: noms ENT SANDUSKYStart: 03-26-2024 End: 12-93-6322mkaxnayopwHY-C Aggie Davis Work Phone: [facility] Work Phone: Start: 03-26-2024 End: 48-29-3124Vhldlll encounter procedureNP-C Aggie Davis Work Phone: [facility]-Lab [place] Work Phone: Start: 03-26-2024 End: 61-86-1781Qgzxnf outpatient new 45 minutesPaul S Biedenbach DO Work Phone: noms ENT SANDUSKYComment on above:Thyroid nodule (CMS/HCC) (Primary Dx); Nontoxic multinodular goiter (CMS/HCC); Thyroid dysfunction (CMS/HCC)Start: 02-14-2024 End: 49-13-5425pkhcpksubaUU-C Aggie Hall Susan Work Phone: [facility] Work Phone: Start: 02-14-2024 End: 46-17-3465Vrpfzuyw ReferredNP-C Aggie Mccormackmer Work Phone: [facility]-LAB Path Spec [place] HospStart: 38-86-5529Fud-patient / Uhb-bqidcBS-M Aggie Susan Work Phone: [facility] Work Phone: Start: 11-11-2023 End: 77-48-2844rhbhffxiiaIurjg A BrownFacility:FTMCStart: 07-29-5206Vckyk abstractingBrice Estrella DO Work Phone: noms NB ORTHOStart: 08-27-2023 End: 31-42-9958Xyjswtf encounter procedureBrice Estrella DO Work Phone: [facility] NB ORTHOComment on above:Left knee pain, unspecified chronicity (Primary Dx)Start: 08-22-2023 End: 38-92-6531ljlikvlfikXC-C Aggie Davis Work Phone: [facility] Work Phone: Start: 08-22-2023 End: 25-87-6572Philmpeaar RecurringNP-C Aggie Mccormackmer Work Phone: [facility]-Carding Dou[address] Holguin RdStart: 06-07-2023 End: 64-05-3495Mapcdscjc to same day surgery Benito Estrella [facility] Start: 72-04-5825prcpcswzlzBIHQJN CRAMERFacility:H1 Start: 12-20-2022 End: 58-05-8806wsjnobyulmPCWBIC CRAMERFacility:F2Zxdzq: 12-15-2022 End: 11-83-5623sknrpyshpvTUHTXF CRAMERFacility:Q7Myrrn: 12-01-2022 End: 09-57-5921fvdvvdcllnZJVIGU CRAMERFacility:O7Wvovh: 12-01-2022 End: 25-40-4556prqtmthwwfXKCEMN CRAMERFacility:Q8Xwfoi: 08-06-2022 End: 16-66-6817eyrtfoywpoUBCJNZ CRAMERFacility:B7Pffwi: 07-02-2022 End: 80-85-8451nhijamvvhpBSPDOV CRAMERFacility:Y1Dsgdd: 05-26-2022 End: 02-38-4922pfsjgiutilVVSBGI CRAMERFacility:S8Ewlqi: 04-05-2022 End: 95-25-7231ddntdhntidBAKUAJ CRAMERFacility:K4Ydusj: 47-19-3096wirjhanrep AGGIE CRAMERFacility:M9Tbjxx: 03-15-2022 End: 01-31-0108vzfcugclyzDGFUAC CRAMERFacility:B3Fhnza: 02-14-2022 End: 83-28-2149agfnxfkdfnHQOXCB CRAMERFacility:G3Bodbz: 11-09-2021 End: 26-28-8966Ikewroq encounter procedureMichele Jane [facility] Procedures DateProcedureProcedure DetailPerforming ClinicianStart: 06-53-7778Sqkownfiy of nerve root of lumbar spine using fluoroscopic guidanceKang BOSS Comment on above:bilat L5/S1 TFESIStart: 54-08-5730Ntht bld gluc mntr dev cleared fda spec home useMathieu Naqvi MD Work Phone: Start: 32-67-5480XIJX CAPILLARY GLUCOSE POCBrice Estrella DO Work Phone: Start: 15-78-3213XHND XYWQ2IUrtzkBrice Estrella DO Work Phone: Start: 68-92-8974Zjhlk cultureAggie Davis ADMINISTRATIVE ASSISTANT COORDINATOR-C Work Phone: start: 70-89-2409Zdhg bld gluc mntr dev cleared fda spec home useMathieu Naqvi MD Work Phone: Start: 43-03-2760Iazql culturePamela Susan ADMINISTRATIVE ASSISTANT COORDINATOR-C Work Phone: Start: 35-93-7253Hhyjw culturePamela Susan ADMINISTRATIVE ASSISTANT COORDINATOR-C Work Phone: [phone]-art: 28-57-9726Ulbea culturePamela Susan ADMINISTRATIVE ASSISTANT COORDINATOR-C Work Phone: [phone]-art: 29-39-9724Ziatd X-ray of right tibia and right fibulaPamela Susan ADMINISTRATIVE ASSISTANT COORDINATOR-C Work Phone: [phone]-art: 91-90-2648CGR of headPakirbya Susan ADMINISTRATIVE ASSISTANT COORDINATOR-C Work Phone: Start: 09-03-2024 End: 62-23-5259Gdlpgd emg ea extremty w/paraspinl area completeChristopher Estrella DO Work Phone: Start: 55-03-8214Vuktgrxsibwsmk aspir&/inj interm jt/burs w/o Kavita Estrella DO Work Phone: Start: 33-21-5630Qprez elbow complete minimum 3 views Brice Estrella DO Work Phone: Start: 68-67-9782Xcnuvccfxjfbck aspir&/inj major jt/bursa w/o usToliss DESIR Work Phone: Start: 71-18-7653Oaazzgeacryeb of median nerveBrice Estrella Start: 91-09-5565Fyjxkbnzlsc of kneeMichele Jane Start: 03-58-6302Wetul little finger release A-1 linda Michele Jane Bilateral cataract surgeryPatrick KARYN CholecystectomyMichele Jane History of tonsillectomyJohn Mourany HysterectomyJohn Mourany needle removed right footJohn Mourany Operation on toenailJohn Mourany Release of trigger fingerJohn Mourany right carpel tunnelJohn Mourany right knee arthroscopy x2John Mourany Plan of Treatment DateCare ActivityDetailAuthorStart: 11-18-2025 End: 26-67-8246Jnfekfr encounter gdicwvfwd67/23/2026 10:15 AM EDT Office Visit [facility] [address] [place] [address] Da Phillip DO [address] [place] [address] [facility] OtolaryngologyStart: 10-18-2025 End: 25-08-8793Oxiczsv encounter fudloupag59/23/2026 1:50 PM EDT Office Visit [facility] [address] [place] [address] Mathieu Naqvi MD [address] [place] [address] [facility] EndocrinologyStart: 07-37-5876Rvmznkykyvlg Vaccine: 65+ Years (3 - PPSV23 or PCV20)Pneumococcal Vaccine: 65+ Years (3 - PPSV23 or PCV20)[facility] HealthcareStart: 06-01-2025 Pneumococcal Vaccine: 65+ Years (3 of 3 - PCV20 or PCV21)Pneumococcal Vaccine: 65+ Years (3 of 3 - PCV20 or PCV21)[facility] HealthcareStart: 74-33-0306Cujmukwyvkpg Vaccine: 65+ Years (3 of 3 - PPSV23 or PCV20)Pneumococcal Vaccine: 65+ Years (3 of 3 - PPSV23 or PCV20)[facility] HealthcareStart: 05-17-2025 End: 49-98-8455Nzsxgce encounter procedureNOMS [facility] COMM[facility] HOSPITALYStart: 03-29-2025 Influenza vaccinationNODC HealthcareStart: 03-15-2025 End: 36-21-1568Edokddw encounter dgprzvbqu72/18/2025 11:20 AM EDT Office Visit [facility] [address] [place] [address] Mathieu Naqvi MD [address] [place] [id number] [facility] ENDOCRINOLOGYStart: 01-14-2025 End: 10-40-0530Xkyrcgn encounter vnofztucc44/19/2025 12:00 PM EDT Office Visit [facility] [place] [address] [facility] [address] [place] [address] Payton Goodwin, DO [address] [place] [address] STEFAN SANDUSKYStart: 01-05-2025 End: 09-46-5009Lqafzeb encounter bgcuemyoj98/10/2025 9:15 AM EDT Office Visit [facility] [address] [place] [address] Brice Estrella, DO [address] [place], [place] [address] [facility] ORTHOAOStart: 01-04-2025 End: 00-42-7876Tyepalx encounter /09/2025 1:15 PM EDT Office Visit [facility] [place] [address] [facility] [address] [place] [address] Olman De La Rosa, DO [address] [place] [address] STEFAN SANDUSKYStart: 80-65-8406Rntimqhi identified in Urine by CultureUrine [facility] Hospitaltart: 90-63-4652R[address] Hospitaltart: 11-26-2024 End: 00-62-3915Vrxaklb encounter zwuyjbnqr85/01/2025 1:15 PM EDT Office Visit [facility] [address] [place] [address] Brice Estrella DO [address] [place] [address] [facility] NASIM ORTHOStart: 11-16-2024 End: 89-22-1737Piklweo encounter yhkhlafvf95/21/2025 10:50 AM EDT Office Visit [facility] [address] [place] [address] Mathieu Naqvi MD [address] [place] [address] [facility] ENDOCRINOLOGYStart: 05-72-9477Rcjzbpwo identified in Urine by CultureUrine [facility] Start: 21-21-0342Obfng [address] Hospitaltart: 11-09-2024 End: 91-70-4585Wlgfcerknpob / ancillary services uwcnllptls26/14/2025 1:45 PM EDT Ancillary Procedure [facility] [address] [place] [address] [facility] MRStart: 11-09-2024 End: 90-36-4900Amvqfhk encounter oljjmjfgu70/14/2025 10:00 AM EDT Office Visit [facility] MARCELINO MARKY [address] [place] [address] Da Phillip, [address] [place] [address] [facility] ENT SANDUSKYStart: 11-02-2024 End: 88-43-2997Nxsipcx encounter ciyduyheg64/07/2025 10:30 AM EDT Office Visit [facility] [address] [place] [address] Brice Estrella, DO [address] [facility] [place] [address] [facility] SWS ORTHOAOStart: 01-71-5986Phufy cultureUniversity Hospitals Lake West Medical Centertart: 22-79-0689Egbugwjt identified in Urine by Culture Urine CultureUniversity Hospitals Lake West Medical Centertart: 40-41-0831Bzvzbeyd identified in Urine by CultureUrine [facility] Start: 01-78-4353Gavng [address] Hospitaltart: 10-13-2024 Insulin C-peptide measurementUniversity Hospitals Lake West Medical Centertart: 09-28-2024 End: 47-55-1447Lqgffgr encounter /03/2025 1:15 PM EST Office Visit [facility]AN [place] [address] [place] [address] Olman De La Rosa, DO [address] [place] [address] STEFAN BELLEVUEStart: 09-10-2024 End: 23-14-9485bitwvaneke74/13/2025 1:00 PM EST Evaluation [facility] [address] [place] [address] Sofya Brasher, OT [address] [place] [address] [facility] SWS PTStart: 09-03-2024 End: 36-14-4470Kvsbqzg encounter procedureANA BELLEVUEComment on above:Arrived Start: 09-03-2024 End: 11-86-5132zokdrhtkxa49/06/2025 12:30 PM EST Evaluation [facility] [address] [place] [address] Sofya Brasher, OT [address] [place] [address] [facility] SWS PTStart: 08-31-2024 End: 65-09-7746Soafral encounter procedureNOMS SWS ORTHOAOComment on above: ArrivedStart: 08-24-2024 End: 27-74-5996Bmckbuyh Thqhaaz9508/24/2024 10:45 AM EST Clinical Support STEFAN ARROYO [address] [place] [address] [place] Start: 08-20-2024 End: 44-52-1839Fcwsdwxcpz [Mass/volume] in Serum or PlasmaCreatinine, Serum Lab Routine Loss of consciousness (CMS/HCC) Expected: 08/20/2024 (Approximate), Ex davidson: 08/20/2025NOMS HealthcareComment on above:Expected: 08/20/2024 (Approximate), Expires: 08/20/2025Start: 08-20-2024 End: 24-85-1972QDI, Including Recording Awake or AsleepEEG, Including Recording Awake or Asleep Neurology Routine Loss of consciousness (CMS/HCC) Expected: 08/20/2024 (Approximate), Expires: 08/20/2025NOMS HealthcareComment on above: Expected: 08/20/2024 (Approximate), Expires: 08/20/2025Start: 08-20-2024 End: 80-33-6761GAB 2 ExtremitiesEMG 2 Extremities Neurology Routine Bilateral hand numbness Expected: 08/20/2024, Expires: 08/20/2025[facility] Work Phone: comment on above:Expected: 08/20/2024, Expires: 08/20/2025Start: 08-20-2024 End: 56-27-6899NO Brain WO and W contrast IVMR brain w and wo contrast routine Imaging Routine Loss of consciousness (CMS/HCC) Expected: 08/20/2024, Expires: 08/20/2025NOMS HealthcareComment on above:Expected: 08/20/2024, Expires: 08/20/2025Start: 08-20-2024 End: 74-43-3930Nhdvviq encounter bhizrwkcw20/23/2025 9:00 AM EST Office Visit [facility]EFAN BUTT [address] [address] [place] [phone] Olman De [place], [address] [place] [id number] STEFAN MARKYStart: 08-18-2024 End: [id number] D3 [Mass/volume] in Serum or PlasmaVitamin D 25 hydroxy Total Lab Routine Type 2 diabetes mellitus with hyperglycemia, with long-term current use of insulin ([facility]) Expected: 08/18/2024 (Approximate), Expires: [facility]/18/2025[facility]:Expected: 08/18/2024 (Approximate), Expires: 08/18/2025Start: 08-18-2024 End: 63-71-6786B-peptideC-peptide Lab Routine Type 2 diabetes mellitus with hyperglycemia, with long-term current use of insulin ([facility]) Expected: 08/18/2024 (Approximate), Expires: 08/18/2025[facility] Work Phone: Comment on above:Expected: 08/18/2024 (Approximate), Expires: 08/18/2025Start: 08-18-2024 End: 99-17-7026Rzujq 1996 panel - Serum or PlasmaLipid panel Lab Routine Type 2 diabetes mellitus with hyperglycemia, with long-term current use of insulin (CMS/HCC) Expected: 08/18/2024 (Approximate), Expires: 08/18/2025[facility] Comment on above:Expected: 08/18/2024 (Approximate), Expires: 08/18/2025Start: 08-18-2024 End: 64-16-9620Jrqnyxadxczl/Creatinine panel in random UrineMicroalbumin / creatinine urine ratio Lab Routine Type 2 diabetes mellitus with hyperglycemia, withlong-term current use of insulin (CMS/HCC) Expected: 08/18/2024 (Approximate), Expires: 08/18/2025[facility] HealthcareComment on above:Expected: 08/18/2024 (Approximate), Expires: 08/18/2025Start: 08-18-2024 End: 35-02-9425Jkzku function panelRenal function panel Lab Routine Type 2 diabetes mellitus with hyperglycemia, with long-term current use of insulin ([facility]) Expected: 08/18/2024 (Approximate), Expires: 08/18/2025[facility] Comment on above:Expected: 08/18/2024 (Approximate), Expires: 08/18/2025Start: 08-18-2024 End: 75-92-4478Elkboxd encounter wplmdkkku94/21/2025 10:30 AM EST Office Visit [facility] [address] [place] [address] Mathieu Naqvi MD [address] [place] [address] ArrivedGROUP [facility] ENDOCRINOLOGYComment on above:Arrived Start: 07-27-2024 End: 64-13-7762Xsbqubm encounter disfeisnw27/30/2024 1:00 PM EST Office Visit [facility] [address] [place] [address] Chana Iglesias, SERA [address] [place] [address] [facility] A[facility]Start: 05-04-2024 End: 72-68-6462Deywywu encounter reiivoddl07/07/2024 10:15 AM EDT Office Visit [facility] [place] [address] [place] [address] Da Phillip, [address] [place] [address] ArrivedKITTITAS [facility] SANDUSKYComment on above:ArrivedStart: 04-13-2024 End: 64-89-5108Aynpjwc encounter eynmeqvdv39/16/2024 11:00 AM EDT Office Visit [facility] [place] [address] [place] [phone] Da Phillip, DO [address] [place] [address] [facility] E[facility] SANDUSKYStart: 04-10-2024 End: 15-86-2956Vrnuoju encounter procedureNOMS ENT SANDUSKYComment on above: ArrivedStart: 39-37-4612Bnwgvxqnl vaccinationInfluenza Vaccine (#1)[facility] HealthcareStart: 03-26-2024 End: 09-90-6636Qslwawrixry [Units/volume] in Serum or PlasmaNODC Healthcare Comment on above:Expected: 03/26/2024 (Approximate), Expires: 03/26/2025Start: 03-26-2024 End: 28-25-5747Ybfkxkjehhsppdan (T3) [Mass/volume] in Serum or PlasmaT3 Lab Routine Thyroid nodule (CMS/HCC) Expected: 03/26/2024 (Approximate), Expires: 03/26/2025[facility] Work Phone: comment on above:Expected: 03/26/2024 (Approximate), Expires: 03/26/2025Start: 03-26-2024 End: 05-11-6721Jjfjifm encounter obmfjkweb06/29/2024 11:00 AM EDT Office Visit [facility] [place] [address] [place] [phone] Da Phillip, DO [address] [place] [address] ArrivedNOMS ENT SANDUSKYComment on above:ArrivedStart: 10-08-2023 End: 70-85-5180Mufqiiv encounter iksxtwdxj27/12/2024 10:00 AM EDT Office Visit [facility] [address] [place] [phone] Brice Estrella, DO [address] [place] [address] [facility] ORTHOStart: 67-64-7167Cgqtgpgwzinb Vaccine: 65+ Years (3 of 3 - PPSV23 or PCV20)Pneumococcal Vaccine: 65+ Years (3 of 3 - PPSV23 or PCV20)[facility] HealthcareStart: 24-33-9834Odvrcmtws for malignant neoplasm of breast MammogramNODC HealthcareStart: 04-17-9485Aolty screening for proteinDiabetes: Urine Protein ScreeningSTEWARD HEALTH CARE SYSTEM HealthcareStart: 08-58-1922Gocomrjb screening Diabetes: Retinopathy ScreeningSalem Memorial District HospitalStart: 98-30-3452Hcobihblti A1c measurementDiabetes: Hemoglobin F5KBTWA HealthcareStart: 02-12-1955Medicare Annual Wellness (AWV)Medicare Annual Wellness (AWV)[facility] HealthcareStart: 87-49-9351Asposrdba for malignant neoplasm of colonNODC HealthcareComprehensive metabolic 2000 panel - Serum or [facility] HospitalCT Lumbar spine WO [facility] HospitalDXA Skeletal system.axial Views for bone densityMercy Health Anderson HospitalMR Cervical spine WO [facility] HospitalPatient EducationTaking care of cuts, scrapes, and puncture woundsCleveland Clinic [facility]tr Work Phone: Patient referralRegency Hospital Toledo Work Phone: Renal function 1999 panel - Serum or [facility] HospitalRenal function 1999 panel - Serum or [facility] HospitalRenal function 1999 panel - Serum or [facility] HospitalXR Lumbar spine ViewsParkwest Medical Center Immunizations Immunization DateImmunizationNotesCare BwlulpbpWtpuymbm41-86-1859wmlfkja toxoid, reduced diphtheria toxoid, and acellular pertussis vaccine, adsorbedPamela Susan ADMINISTRATIVE ASSISTANT COORDINATOR-C Work Phone: [facility]11-14-2024zoster vaccine recombinantPatrick BOSS [facility]06-15-2024zoster vaccine recombinantPatrick BOSS [facility]05-31-2024zoster vaccine recombinantPaul Biedenbach DO Work Phone: [facility] HospitalWeucjlpqwn97-32-2107Vtsqzneub, High-dose Seasonal, Quadrivalent, Preservative FreePaul Biedenbach DO Work Phone: [facility] HospitalOfpnnmtxan55-80-4771vkixvjoze virus vaccine, unspecified formulationPaul Biedenbach DO Work Phone: [facility]04-04-2023influenza virus vaccine, unspecified formulationPatrick BOSS [facility]04-04-2023Influenza, High-dose Seasonal, Quadrivalent, Preservative Free Da Biedenbach DO Work Phone: [facility] HospitalHdpduseuei47-92-1356xlqgxoqnm virus vaccine, unspecified formulationPatrick BOSS [facility]11-03-2022Influenza, Seasonal, Quadrivalent, AdjuvantedPaul Biedenbach DO Work Phone: [facility] HospitalGcknjauhwq08-63-2699MDFG-ZjA-0 (COVID-19) mRNA- 1273 vaccinePatrick BOSS [facility]04-27-2021SARS-CoV-2 (COVID-19) mRNA-1273 vaccinePatrick BOSS [facility]04-19-2021SARS-CoV-2 (COVID-19) mRNA-1273 vaccineJohn Mourany [facility]11-04-2020influenza virus vaccine, unspecified formulationPadeaconess hospital union countykashmir BOSS [facility]11-04-2020pneumococcal conjugate vaccine, 13 valentPaul Biedprovidence sacred heart medical center DO Work Phone: [facility] HospitalLzetlkddyk07-21-9572Anehkuaq trivalent influenza vaccine, adjuvanted, preservative freeNorfolk State Hospital DO Work Phone: [facility] HospitalRtnqicrrek70-35-2994xkvncchgr virus vaccine, unspecified formulationPadarshan BOSS [facility]10-01-2019influenza, seasonal, injectableNorfolk State Hospital DO Work Phone: [facility] HospitalRhpdsqqiqb69-79-5871wlhdsbffuorl polysaccharide vaccine, 23 valentKsul [facility] DO Work Phone: [facility] HospitalGbblcvjhhj37-76-9363kmstdks toxoid, reduced diphtheria toxoid, and acellular pertussis vaccine, adsorbedNP-C Aggie Davis Work Phone: [facility] Payers DatePayer CategoryPayerPolicy [id number] Insurance [id number]-oih [id number] SEDGWICK Belén [id number] 2022-Present [address] [place] [address] [id number]'s CompensationSEJEREMIASWICK [id number] 2023Medicare [id number] 2023Medicare (Managed Care)[employer] [id number] 1960Medicare [id number] 2.0.1.568538.3.57[id number] 2.0.1.493918.3.579.2.13290-15-3137Tzessea9110996 2.0.1.556440.3.579.2.89583-21-7667Qogrtgm1442179 2.0.1.721012.3.579.2.76796-89-7420Agjzmdx9341865 2.16.840.1.138476.3.579.2.79796-24-9019Zdijcuc4868405 2.16.840.1.386074.3.579.2.86573-08-3512Ncexuoz0771116 2.16.840.1.666166.3.579.2.75581-27-1491Zccridn1716410 2.16.840.1.940377.3.579.2.87320-51-4292Fzeorbh2118614 2.840.1.903270.3.579.2.83927-49-1331Ccmesdn4555284 2.840.1.790613.3.579.2.46378-13-3741Uidzodr8905026 2.840.1.700651.3.579.2.24194-74-1613Yepvlum4283606 2.840.1.932146.3.579.2.56718-97-3444Kuuzfyp81121925 2.840.1.855940.3.579.2.38560-01-2505Eiqquek72595115 2.840.1.453642.3.579.2.81491-01-3041Wvxaeca99219395 2.840.1.027169.3.579.2.94393-29-0100Ppeicic68296190 2.840.1.581225.3.579.2.65547-21-4845Kqbpcag39015756 2..840.1.655690.3.579.2.86641-79-5605Afpgopc10069670 2.16840.1.103642.3.579.2.65295-01-5585Finmfki57472012 2.16.840.1.738867.3.579.2.498851-21-4439Bvzlxhg67786690 2.840.1.368955.3.579.2.364179-57-5070Gkbmcxp86147620 2.16.840.1.277043.3.579.2.597056-09-3964Ofuzwop43215643 2.840.1.218841.3.579.2.428983-27-7686Rtapejd1385094 2.0.1.576943.3.579.2.920469-98-0880Rkwlhhd8302581 2.0.1.830084.3.579.2.439337-58-4902Okscrrj5037508 2.0.1.964397.3.579.2.408012-86-6511Fmgwdhw6769880 2.840.1.784925.3.579.2.909980-60-7387Gpfbber7937279 2.0.1.652965.3.579.2.298809-73-1867Gzvltoo6854054 2.0.1.686203.3.579.2.190955-69-2065Qxyduni7432440 2.0.1.370117.3.579.2.442840-43-3009Gcdrcgr7853116 2.0.1.517329.3.579.2.653410-87-1449Qswqtgb5705768 2.840.1.543421.3.579.2.903883-10-4027Xzfkfnf5192788 2.840.1.900653.3.579.2.288739-07-9841Ihvprrh7443922 2.16.840.1.350834.3.579.2.522428-24-5218Isvisur6369132 2.16.840.1.306951.3.579.2.678742-19-5602Vbdszgb7389648 2.16.840.1.539931.3.579.2.227807-84-1555Drszhyv3230073 2..840.1.813304.3.579.2.025178-90-4158Aynqhsy7243158 2.16.840.1.640160.3.579.2.332489-98-6619Vvsqavs2098651 2.840.1.140994.3.579.2.790151-85-4281Twoxect0452878 2.0.1.969535.3.579.2.057368-07-0327Hyqlpzq4465116 2.840.1.563418.3.579.2.558945-13-8290Fhsytdu8862091 2.840.1.836944.3.579.2.087689-91-4401Uuslnwd2330726 2.840.1.267557.3.579.2.612444-88-3137Zrkuvbk2531157 2.840.1.687619.3.579.2.151355-35-2694Slkkobk5726609 2..840.1.016412.3.579.2.995432-70-0597Eybbwpz5639454 2.840.1.118397.3.579.2.009025-77-1791Roevydz1706827 2.16.840.1.654856.3.579.2.408693-60-4424Zghvshj43988885 2.16840.1.685034.3.579.2.87753-99-9329Sxhowvc18152176 2.16.840.1.716566.3.579.2.14197-34-1748Dlmulos59786129 2.16.840.1.603665.3.579.2.20334-94-3083Gdqtuzo52315342 2.16.840.1.686342.3.579.2.18908-28-7286Gwfjrcc19224853 2.16.840.1.874687.3.579.2.27032-72-1605Tgcbqng02552572 2.16.840.1.804021.3.579.2.56685-71-2133Poroiuw12924839 2.16.840.1.428042.3.579.2.54693-46-8020Qafozyt79891675 2.16.840.1.774456.3.579.2.12093-30-5574Yhaeaie80039805 2.16.840.1.031719.3.579.2.54313-28-7058Cfahtnl73061786 2.16.840.1.655840.3.579.2.66709-05-8144Btjpxmc89236207 2..840.1.029163.3.579.2.24020-99-7108Hkmzebl27282884 2.16.840.1.195436.3.579.2.285NhqbgzuCJE217N80687 8po93sm4-01vb-1p72-1t33-9y5gj30s6em3NaupvbhIykwpen Auto/Cghxhnj0748R708T 07gq7yy2-89cy-1180-520c-4v56my8h00c6Qrxiqqf12569681 2.16.840.1.632346.3.579.2.977Fvxpise53264792 2.16.840.1.227976.3.579.2.531 Lksdtvd11640152 2.16.840.1.835992.3.579.2.414Udrzjdy89257590 2.16.840.1.228266.3.579.2.978Nakxzva12096916 2.16.840.1.404938.3.579.2.531 Kvoqvsm39833190 2.16.840.1.554627.3.579.2.157Xuskgxg74118265 2.16.840.1.670568.3.579.2.453Kcrqrmx00017661 2.16.840.1.479435.3.579.2.531 Social History DateTypeDetailFacilityTobaccoCigarettesGerman HospitalComment on above:05/30 pkg dailyStart: 08-27-2023 End: 85-15-5252Njn Assigned At BirthFemalKindred Hospital DaytonTobacco smoking statusBlanchard Valley Health System Bl[facility]ard Valley Hospitaltart: 05-07-2023 End: 96-07-2495Wyavrbx smoking status NHISSmokes tobacco dailyNOMS Healthcare History of tobacco useCigarette SmokerNOMS HealthcareStart: 11-27-7216Uvvneun use and exposureSmokeless tobacco non-userNOMS HealthcareStart: 08-27-2023 End: 33-27-3409Ojsnrcm intakeLifetime non-drinker (finding)[facility] HealthcareStart: 08-27-2023 End: 19-51-6381Bvoktdz of Social functionNOMS HealthcareStart: 06-62-5576Gmluzfg Commentcaffeine intake: more than 4 cups per day of coffee, pop, teaNOMS HealthcareStart: 94-05-6202Oam Assigned At BirthNot on fileNOMS HealthcareStart: 04-12-2023 End: 80-31-2094Ejnylwx smoking status NHISSmoker (finding)[facility] Centertart: 35-51-9031Hwp [facility] At [facility]ertart: 28-06-2570Pdrzmd identityIdentifies as female gender (finding)[facility] HealthcareStart: 11-09-2009 End: 02-08-6722QllYjsmbl (finding)[facility] Centertart: 09-07-2024 End: 81-56-4733Znrofpb smoking statusHeavy tobacco smoker (finding)[facility] HospitalComjohn d. [facility] on above:05/30 pkg daily Start: 47-71-0536Pamstwv smoking statusNeverExecutive [facility]rology of [facility] on above:05/30 pkg daily Medical Equipment Procedure CodeEquipment CodeEquipment Original TextEquipment IdentifierDates [id number]: 27-04-3935JJHV BLOOD SUGAR THREE TIMES DAILY for [id number] Sugar Diagnostic (Onetouch Ultra Test) stripStart: 10-02-2017 End: 00-82-2073Iwobv Sugar Diagnostic (Onetouch Ultra Test) stripStart: 10-02-2017 End: 93-12-7425Rjedo Sugar Diagnostic (Onetouch Ultra Test) stripStart: 10-02-2017 End: 43-39-7975Tgejz Sugar Diagnostic (Onetouch Ultra Test) stripStart: 10-02-2017 End: 54-71-3338Besyi Sugar Diagnostic (Onetouch Ultra Test) stripStart: 10-02-2017 End: 17-86-0939Sxvtr Sugar Diagnostic (Onetouch Ultra Test) stripStart: 10-02-2017 End: 82-80-0561Ywleh Sugar Diagnostic (Onetouch Ultra Test) stripStart: 10-02-2017 End: 05-95-7062Dseux Sugar Diagnostic (Onetouch Ultra Test) stripStart: 10-02-2017 End: 93-07-0806Dcreu Sugar Diagnostic (Onetouch Ultra Test) stripStart: 10-02-2017 End: 81-32-8103Sxppv Sugar Diagnostic (Onetouch Ultra Test) stripStart: 10-02-2017 End: 53-25-4447Uwtnx Sugar Diagnostic (Onetouch Ultra Test) stripStart: 10-02-2017 End: 85-87-8191Dxnwi Sugar Diagnostic (Onetouch Ultra Test) stripStart: 10-02-2017 End: 31-48-0875Rvyyu Sugar Diagnostic (Onetouch Ultra Test) stripStart: 10-02-2017 End: 43-16-8213Jkivg Sugar Diagnostic (Onetouch Ultra Test) stripStart: 10-02-2017 End: 67-62-0396Aytdr Sugar Diagnostic (Onetouch Ultra Test) stripStart: 10-02-2017 End: 92-89-5004Gmguc Sugar Diagnostic (Onetouch Ultra Test) stripStart: 10-02-2017 End: 40-49-7469Alfxf Sugar Diagnostic (Onetouch Ultra Test) stripStart: 10-02-2017 End: 00-43-6932Qcwdq Sugar Diagnostic (Onetouch Ultra Test) stripStart: 10-02-2017 End: 01-06-2020 Functional Status VuhfSxfcwhpbqwZubupsHhmuafce95-04-8456Ehrlpuiuxn StatusNoGerman Hospital02-10-2025Functional StatusN/AExec[facility] of [facility]12-10-2024Functional StatusN/[facility] 19-95-7691Jhvwswmszv StatusN/[facility] Clinical Notes 03-16-2022 to 05-31-2025 Note Date & QwifIkwxLdxkksiv74-55-0472 Hospital Discharge instructions Patient Education 05/31/2025 16:30:34 Overactive Bladder, Adult Overactive Bladder, Adult Overactive bladder is a condition in which a person has a sudden and frequent need to urinate. A person might also leak urine if he or she cannot get to the bathroom fast enough (urinary incontinence). Sometimes, symptoms can interfere with work or social activities. What are the causes? Overactive bladder is associated with poor nerve signals between your bladder and your brain. Your bladder may get the signal to empty before it is full. You may also have very sensitive muscles thatmake your bladder squeeze too soon. This condition may also be caused by other factors, such as: Medical conditions: ?Urinary tract infection. ?Infection of nearby tissues. ?Prostate enlargement. ?Bladder stones, inflammation, or tumors. ?Diabetes. ?Muscle or nerve weakness, especially from these conditions: ?A spinal cord injury. ?Stroke. ?Multiple sclerosis. ?Parkinson's disease. Other causes: ?Surgery on the uterus or urethra. ?Drinking too much caffeine or alcohol. ?Certain medicines, especially those that eliminate extra fluid in the body (diuretics). ?Constipation. What increases the risk? You may be at greater risk for overactive bladder if you: Are an older adult. Smoke. Are going through menopause. Have prostate problems. Have a neurological disease, such as stroke, dementia, Parkinson's disease, or multiple sclerosis (MS). Eat or drink alcohol, spicy food, caffeine, and other things that irritate the bladder. Are overweight or obese. What are the signs or symptoms? Symptoms of this condition include a sudden, strong urge to urinate. Other symptoms include: Leaking urine. Urinating 8 or more times a day. Waking up to urinate 2 or more times overnight. How is this diagnosed? This condition may be diagnosed based on: Your symptoms and medical history. A physical exam. Blood or urine tests to check for possible causes, such as infection. You may also need to see a health care provider who specializes in urinary tract problems. This is called a urologist. How is this treated? Treatment for overactive bladder depends on the cause of your condition and whether it is mild or severe. Treatment may include: Bladder training, such as: ?Learning to control the urge to urinate by following a schedule to urinate at regular intervals. ?Doing Kegel exercises to strengthen the pelvic floor muscles that support your bladder. Special devices, such as: ?Biofeedback. This uses sensors to help you become aware of your body's signals. ?Electrical stimulation. This uses electrodes placed inside the body (implanted) or outside the body. These electrodes send gentle pulses of electricity to strengthen the nerves or muscles that control the bladder. ?Women may use a plastic device, called a pessary, that fits into the vagina and supports the bladder. Medicines, such as: ?Antibiotics to treat bladder infection. ?Antispasmodics to stop the bladder from releasing urine at the wrong time. ?Tricyclic antidepressants to relax bladder muscles. ?Injections of botulinum toxin type A directly into the bladder tissue to relax bladder muscles. Surgery, such as: ?A device may be implanted to help manage the nerve signals that control urination. ?An electrode may be implanted to stimulate electrical signals in the bladder. ?A procedure may be done to change the shape of the bladder. This is done only in very severe cases. Follow these instructions at home: Eating and drinking Make diet or lifestyle changes recommended by your health care provider. These may include: ?Drinking fluids throughout the day and not only with meals. ?Cutting down on caffeine or alcohol. ?Eating a healthy and balanced diet to prevent constipation. This may include: ?Choosing foods that are high in fiber, such as beans, whole grains, and fresh fruits and vegetables. ?Limiting foods that are high in fat and processed sugars, such as fried and sweet foods. Lifestyle Lose weight if needed. Do not use any products that contain nicotine or tobacco. These include cigarettes, chewing tobacco, and vaping devices, such as e-cigarettes. If you need help quitting, ask your health care provider. General instructions Take unai-rkw-inyhbec and prescription medicines only as told by your health care provider. If you were prescribed an antibiotic medicine, take it as told by your health care provider. Do notstop taking the antibiotic even if you start to feel better. Use any implants or pessary as told by your health care provider. If needed, wear pads to absorb urine leakage. Keep a log to track how much and when you drink, and when you need to urinate. This will help your health care provider monitor your condition. Keep all follow-up visits. This is important. Contact a health care provider if: You have a fever or chills. Your symptoms do not get better with treatment. Your pain and discomfort get worse. You have more frequent urges to urinate. Get help right away if: You are not able to control your bladder. Summary Overactive bladder refers to a condition in which a person has a sudden and frequent need to urinate. Several conditions may lead to an overactive bladder. Treatment for overactive bladder depends on the cause and severity of your condition. Making lifestyle changes, doing Kegel exercises, keeping a log, and taking medicines can help with this condition. This information is not intended to replace advice given to you by your health care provider. Make sure you discuss any questions you have with your health care provider. Document Revised: 04/03/2021 Document Reviewed: 04/03/2021 [employer] Patient Education 2023 [employer]. Follow Up Care 03/08/2025 10:57:49 With:KARYN WRAY, Kang Morelos, URL Address: [facility] [address] [place] [address]- When: Unknown [facility] [place] 11-03-2025 NotePatient Education Obstetrics and Gynecology Overactive Bladder, Adult Overactive bladder is a condition in which a person has a sudden and frequent need to urinate. A person might also leak urine if he or she cannot get to the bathroom fast enough (urinary incontinence). Sometimes, symptoms can interfere with work or social activities. What are the causes? Overactive bladder is associated with poor nerve signals between your bladder and your brain. Your bladder may get the signal to empty before it is full. You may also have very sensitive muscles thatmake your bladder squeeze too soon. This condition may also be caused by other factors, such as: ??? Medical conditions: ? Urinary tract infection. ? Infection of nearby tissues. ? Prostate enlargement. ? Bladder stones, inflammation, or tumors. ? Diabetes. ? Muscle or nerve weakness, especially from these conditions: ? A spinal cord injury. ? Stroke. ? Multiple sclerosis. ? Parkinson's disease. ??? Other causes: ? Surgery on the uterus or urethra. ? Drinking too much caffeine or alcohol. ? Certain medicines, especially those that eliminate extra fluid in the body (diuretics). ? Constipation. What increases the risk? You may be at greater risk for overactive bladder if you: ??? Are an older adult. ??? Smoke. ??? Are going through menopause. ??? Have prostate problems. ??? Have a neurological disease, such as stroke, dementia, Parkinson's disease, or multiple sclerosis (MS). ??? Eat or drink alcohol, spicy food, caffeine, and other things that irritate the bladder. ??? Are overweight or obese. What are the signs or symptoms? Symptoms of this condition include a sudden, strong urge to urinate. Other symptoms include: ??? Leaking urine. ??? Urinating 8 or more times a day. ??? Waking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 Chief [...] 2025 2:50pm Radiculopathy, lumbar region April 1:25pm Chief Complaint Admit Date cut left hand w chainsaw April 07, 2025 5:40pm 3-4 month F/U April 26, 2025 2:50pm Radiculopathy, lumbar region April 1:25pm Renal F/U June 07, 2025 2:26pm Reason for Visit Admit Date Bilateral hand [...] chronic kidney disease June 07, 2025 2:26pm Additional Source Comments INFORMATION SOURCE (unrecogn ized section and content) DATE CREATED AUTHOR 03/11/2020 [facility] DATE CREATED AUTHOR AUTHOR'S ORGANIZ ATION 08/25/2022 [facility] DATE CREATED AUTHOR AUTHOR'S ORGANIZ ATION 01/04/2023 [facility] DATE CREATED AUTHOR AUTHOR'S ORGANIZ ATION 07/11/2024 [facility] DATE CREATED AUTHOR AUTHOR'S ORGANIZ ATION 08/17/2024 [facility] DATE CREATED AUTHOR AUTHOR'S ORGANIZ ATION 12/27/2024 [facility] DATE CREATED AUTHOR AUTHOR'S ORGANIZ ATION 02/04/2025 [facility] DATE CREATED AUTHOR AUTHOR'S ORGANIZ ATION 04/22/2025 [facility] DATE CREATED AUTHOR AUTHOR'S ORGANIZ ATION 05/17/2025 [facility] DATE CREATED AUTHOR AUTHOR'S ORGANIZ ATION 05/19/2025 [facility] DATE CREATED AUTHOR AUTHOR'S ORGANIZ ATION 05/27/2025 [facility] DATE CREATED AUTHOR AUTHOR'S ORGANIZ ATION 06/01/2025 [facility] Patient Care team informatio n (unrecognized section and content) Team Status: Active Member Role Status Dates Aggie Davis ADMINISTRATIVE ASSISTANT COORDINATOR-C Primary Care Provider Active Team Status: Inactive Member Role Status Dates Aggie Davis ADMINISTRATIVE ASSISTANT COORDINATOR-C Primary Care Provider Active Start: August 31, 2024 End: August 31bdul Derick , MDAttending ProviderActiveStart: August 31, 2024 End: August 31, 2024 Team Status: Inactive Member Role Status Dates Aggie Davis ADMINISTRATIVE ASSISTANT COORDINATOR-C Primary Care Provider Active Start: September 14, 2024 End: September 14Anne Mcknight ProviderActiveStart: September 14, 2024 End: September 14, 2024 Team Status: Inactive Member Role Status Dates Aggie Davis ADMINISTRATIVE ASSISTANT COORDINATOR-C Primary Care Provider Active Start: September 14, 2024 End: September 14, 2024Aditi Almonte ProviderActiveStart: September 14, 2024 End: September 14, 2024 Team Status: Inactive Member Role Status Dates Aretha Valadez APRN Attending Provider Active Start: September 21, 2024 End: September 21, 2024[facility]y [facility] Care ProviderActive Start: September 21, 2024 End: September 21, 2024 Team Status: Inactive Member Role Status Dates Aggie Davis ADMINISTRATIVE ASSISTANT COORDINATOR-C Primary Care Provider Active Start: October 13, 2024 End: October 13bdul Derick , MDAttending ProviderActiveStart: October 13, 2024 End: October 13, 2024Ponce Moreno ProviderActiveStart: October 13, 2024 End: October 13Maria [...] Active Member Role Status Dates Aggie Davis ADMINISTRATIVE ASSISTANT COORDINATOR-C Primary Care Provider Active Start: January 25, 2024 Imer Green DOAttros ProviderActiveStart: January 25, 2024 Team Status: Inactive Member Role Status Dates Aggie Davis ADMINISTRATIVE ASSISTANT COORDINATOR-C Primary Care Alfred pineda, Attending Provider Active Start: February 14, 2024 End: February 14, 2024 Team Status: Inactive Member Role Status Dates Agige Davis ADMINISTRATIVE ASSISTANT COORDINATOR-C Primary Care Provider Active Start: March 26, 2024 End: March 26Anne Rosales ProviderActiveStart: March 26, 2024 End: March 26, 2024Team MemberRelationshipSpecialtyStart DateEnd Date Unallocated, Noms Provider [address] [place] [address] PCP - General12/18/22Team MemberRelationshipSpecialtyStart DateEnd Date Unallocated, Noms Provider [address] [facility] [place] [address] PCP - General12/18/22 Team Status: Inactive Member Role Status Dates Aggie Davis ADMINISTRATIVE ASSISTANT COORDINATOR-C Primary Care Provider Active Start: August 22, 2023 End: August 22, 2023Brice Estrella DOAttending ProviderActiveStart: August 22, 2023 End: August 22, 2023 Team Status: Inactive Member Role Status Dates Da Phillip DO Attending Provider Active S tart: April 13, 2024 End: April 13, 2024Team MemberRelationshipSpecialtyStart DateEnd Date Carter Granger MD [address] [place] [phone] PCP - GeneralFamily Medicine04/10/24 Aggie Davis MD [address] [place] [address] Referring PhysicianFami Medicine04/10/24 Da Phillip DO [address] [place] [address] Otolaryngology04/10/24Team MemberRelationshipSpecialtyStart DateEnd Date Carter Granger MD [address] [place] [phone] PCP - GeneralFamily Medicine04/10/24 Aggie Davis MD [address] [place] [phone] Referring PhysicianFamily Medicine04/10/24 Da Phillip DO [address] [place] [address] Otolaryngology04/10/24Team MemberRelationshipSpecialtyStart DateEnd Date Carter Granger MD [address] [place] [phone] PCP - GeneralFamily Medicine04/10/24 Aggie Davis MD [address] [place] [phone] Referring PhysicianFamily Medicine04/10/24 Da Phillip DO [address] [place] [address] Otolaryngology04/10/24Team MemberRelationshipSpecialtyStart End Carter Granger MD [address] [place] [phone] PCP - GeneralFamily Medicine04/10/24 Aggie Davis MD [address] [place], [place] [phone] Referring PhysicianFamily Medicine04/10/24 Da Phillip, [address] [place] [address] Otolaryngology04/10/24Team MemberRelationshipSpecialtyStart End Carter Granger MD [address] [place] [phone] PCP - GeneralFamily Medicine04/10/24 Aggie Davis MD [address] [place] [address] Referring PhysicianFamily Medicine04/10/24 Da Phillip DO [address] [place] [address] Otolaryngology04/10/24Team MemberRelationshipSpecialtyStart DateEnd Date Unallocated, Sameer Gage MD [address] [facility] [place] [address] PCP - General12/18/22Team MemberRelationshipSpecialtyStart DateEnd Date Unallocated, Alhajis MD Too [address] [place] [address] PCP - General12/18/22Team MemberRelationshipSpecialtyStart DateEnd Date Carter Granger MD [address] [place] [phone] PCP - GeneralFamily Medicine04/10/24 Aggie Davis MD [address] [place] [address] Referring PhysicianFamily Medicine04/10/24 Da Phillip DO [address] [place] [address] Otolaryngology04/10/24Team MemberRelationshipSpecialtyStart DateEnd Date Carter Granger MD [address] [place] [phone] PCP - GeneralFamily Medicine04/10/24 Aggie Davis MD [address] [place] [address] Referring PhysicianFamily Medicine04/10/24 Da Phillip DO [address] [place] [address] Otolaryngology04/10/24Team MemberRelationshipSpecialtyStart End [facility] Carter Granger MD [address] [place] [phone] PCP - GeneralFamily Medicine04/10/24 Aggie Davis MD [address] [place] [address] Referring PhysicianFamily Medicine04/10/24 Da Phillip DO [address] [place] [address] Otolaryngology04/10/24 Olman De La Rosa DO [address] [place] [address] Referring PhysicianNeurolog08/20/24Team MemberRelationshipSpecialtyStart End Carter Granger MD [address] [place] [address], [place] [address] PCP - GeneralFamily Medicine04/10/24 Aggie Davis MD [address] [place] [address] Referring PhysicianFamily Medicine04/10/24 Da Phillip DO [address] [place] [address] Otolaryngology04/10/24 Olman De La Rosa DO [address] [place] [address] Referring PhysicianNeurology1Team MemberRelationshipSpecialtyStart DateEnd Carter Granger MD [address] [place] [phone] PCP - GeneralFamily Medicine04/10/24 Aggie Davis MD [address] [place] [address] Referring [facility]icianGr[facility] Medicine04/10/24 Da Phillip DO [address] [place] [address] Otolaryngology04/10/24 Olman De La Rosa DO [address] [place] [phone] Referring PhysicianNeurology1 Team Status: Active Member Role Status Dates Aretha Valadez APRN Attending Provider Active Start: August 19, 2024 Aggie Davis ADMINISTRATIVE ASSISTANT COORDINATOR-[facility] ProviderActiveStart: August 19, 2024 Team MemberRelationshipSpecialtyStart DateEnd Carter Granger MD [address] [place] [phone] PCP - GeneralFamily Medicine04/10/24 Aggie Davis MD [address] [place] [phone] Referring PhysicianGrace Hospital Medicine04/10/24 Da Phillip DO [address] [place] [address] Otolaryngology04/10/24 Olman De La Rosa DO [address] [place] [phone] Referring PhysicianNeurology1Team MemberRelationshipSpecialtyStart DateEnd Date Carter Granger MD [address] [place] [phone] PCP - GeneralGrace Hospital Medicine04/10/24 Aggie Davis MD [address] [place] [phone] Referring PhysicianFamily Medicine04/10/24 Da Phillip DO [address] [place] [address] Otolaryngology04/10/24 Olman De La Rosa DO [address] [place] [phone] Referring PhysicianNeurolog08/20/24 Team Status: Active Member Role Status Dates AVIVA Dey Primary Care Provider Active Start: July 22, 2024 Imer Green DOAttending ProviderActiveStart: July 22, 2024 Team MemberRelationshipSpecialtyStart DateEnd Date Carter Granger MD [address] [place] [phone] PCP - GeneralGr[facility] Hospital Medicine04/10/24 Aggie Davis MD [address] [place] [address] Referring PhysicianFamily Medicine04/10/24 Da Phillip DO [address] [place] [address] Otolaryngology04/10/24 Olman De La Rosa DO [address] [place] [address] Referring PhysicianNeurology1Team MemberRelationshipSpecialtyStart End [facility] Carter Granger MD [address] [place] [phone] PCP - GeneralFamily Medicine04/10/24 Aggie Davis MD [address] [place], [place] [phone] Referring PhysicianFamily Medicine04/10/24 Da Phillip DO [address] [place] [address] Otolaryngology04/10/24 Olman De La Rosa DO [address] [place] [address] Referring PhysicianNeurology1Team MemberRelationshipSpecialtyStart End [facility] Carter Granger MD [address] [place] [phone] PCP - GeneralFamily Medicine04/10/24 Aggie Davis MD [address] [place] [address] Referring PhysicianFamily Medicine04/10/24 Da Phillip DO [address] [place] [address] Otolaryngology04/10/24 Olman De La Rosa DO [address] [place] [phone] Referring PhysicianNeurology1Team MemberRelationshipSpecialtyStart DateEnd Carter Granger MD [address] [place] [phone] PCP - GeneralFamily Medicine04/10/24 Aggie Davis MD [address] [place] [address] Referring PhysicianFamily Medicine04/10/24 Da Phillip DO [address] [place] [address] Otolaryngology04/10/24 Olman De La Rosa DO [address] [place] [address] Referring PhysicianNeurology1Team MemberRelationshipSpecialtyStart End Carter Granger MD [address] [place] [phone] PCP - GeneralFamily Medicine04/10/24 Aggie Davis MD [address] [place] [address], [place] [address] Referring PhysicianFamily Medicine04/10/24 Da Phillip DO [address] [place] [place] [address] Otolaryngology04/10/24 Olman De La Rosa DO [address] [place] [address] Referring PhysicianNeurology1Team MemberRelationshipSpecialtyStart DateEnd Date Carter Granger MD [address] [place] [phone] PCP - Generalmily Medicine04/10/24 Aggie Davis MD [address] [place] [address] Referring PhysicianFamily Medicine04/10/24 Da Phillip DO [address] [place] [address] Otolaryngology04/10/24 Olman De La Rosa DO [address] [place] [address] Referring PhysicianNeurology1Team MemberRelationshipSpecialtyStart End Carter Granger MD [address] [place] [address] PCP - GeneralFamily Medicine04/10/24 Aggie Davis MD [address] [place] [address] Referring PhysicianFamily Medicine04/10/24 Da Phillip DO [address] [place] [address] Otolaryngology04/10/24 Olman De La Rosa DO [address] [place] [address] Referring PhysicianNeurolog08/20/24 Team Status: Inactive Member Role Status Dates Aggie Davis NP-C Attending Provider Active Start: December 22, 2024 End: December 22, 2024 Team Status: Inactive Member Role Status Dates Olman De La Rosa DO Attending Provider Active Start: January 04, 2025 End: January 04, 2025Pasp Davis ADMINISTRATIVE ASSISTANT COORDINATOR-CPrimary Care ProviderActiveStart: January 04, 2025 End: January 04, 2025 Team Status: Inactive Member Role Status Dates Payton Goodwin DO Attending Provider Active Sta rt: January 14, 2025 End: January 14, 2025Pasp Davis ADMINISTRATIVE ASSISTANT COORDINATOR-CPrimary Care ProviderActiveStart: January 14, 2025 End: January 14, 2025 Team Status: Inactive Member Role Status Dates Aggie Davis NP-C Primary Care Provider Active Start: April 07, 2025 End: April 07Ralf Cordoba ProviderActiveStart: April 07, 2025 End: April 07, 2025Team MemberRelationshipSpecialtyStart DateEnd Date Carter Granger MD [address] [place] [phone] PCP - GeneralFamily Medicine04/10/24 Aggie Davis MD [address] [place] [address] Referring PhysicianFamily Medicine04/10/24 Da Phillip DO [address] [place] [phone] Otolaryngology04/10/24 Olman De La Rosa DO [address] [place] [phone] Referring PhysicianNeurology1Team MemberRelationshipSpecialtyStart DateEnd Date Carter Granger MD [address] [place] [address] PCP - GeneralFamily Medicine04/10/24 Aggie Davis MD [address] [place], [place] [phone] Referring PhysicianFamily Medicine04/10/24 Da Phillip DO [address] [place] [phone] Otolaryngology04/10/24 Olman De La Rosa DO [address] [place] [phone] Referring PhysicianNeurology1 Team Status: Inactive Member Role Status Dates Aggie Davis ADMINISTRATIVE ASSISTANT COORDINATOR-C Primary Care Provider Active Start: April 26, 2025 End: April 26, 2025Kala Gregg APRN-FNP-CAttending ProviderActive Start: April 26, 2025 End: April 26, 2025Team MemberRelationshipSpecialtyStart DateEnd Date Carter Granger MD [address] [place] [address] PCP - GeneralFamily Medicine04/10/24 Aggie Davis MD [address] [place] [address] Referring PhysicianFamily Medicine04/10/24 Da Phillip DO [address] [place] [address] Otolaryngology04/10/24 Olman De La Rosa DO [address] [place] [address] Referring PhysicianNeurolog08/20/24Team MemberRelationshipSpecialtyStart DateEnd Carter Granger MD [address] [place] [address] PCP - Generalmily Medicine04/10/24 Aggie Davis MD [address] [place] [address] Referring PhysicianFamily Medicine04/10/24 Da Phillip DO [address] [place] [address] Otolaryngology04/10/24 Olman De La Rosa DO [address] [place] [address] Referring PhysicianNeurology1 Team Status: Active Member Role/Relationship Status Annetta Davis ADMINISTRATIVE ASSISTANT COORDINATOR-C Primary Care Provider Active Team Status: Inactive [...] May 19, 2025 End: May 19, 2025 Team Status: Inactive Member Role/Relationship Status Dates Aggie Davis NP-C Primary Care Provider Active Start: June 07, 2025 End: June 07marquis Sepulveda MDAttros ProviderActiveStart: June 07, 2025 End: June 07, 2025 Reason for Visit (unrecogniz ed section and content) ReasonCommentsInjectionsSynvisc oneReasonCommentsThyroid NoduleFNA resultsReason CommentsThyroid NoduleLab resultsReasonCommentsThyroid NoduleFNAReasonComments Thyroid NoduleThyroid noduleReasonCommentsPainReasonCommentsFollow-upReason CommentsThyroid VgqikoFfvgduZnammaxoBogjnkgwXvjzwt-xzCSGCbmdbrJuqteddvYpcbrl-ax MRI [facility] 11/09/24ReasonCommentsDiabetesReasonCommentsThyroid Nodule6 month [place] Goals (unrecognized section and content) Goals may [...] BE BASED ON THE PRIMARY CLINICAL RECORDS. [facility]. provides no warranty or guarantee of the accuracy or completeness of information in this document.
== END 2025-07-01 12:10 | disposition home or self-care (01) ==
LOC: US 12:12
PROVIDERS: PCP Nurse Practitioner Family; Visit Provider Nurse Practitioner Family
DX: M79.605 Pain in left leg (principal)
CPT/HCPCS: 93971